=== PATIENT | female | born 1980 | race Caucasian/White ===

== ENCOUNTER 2022-01-27 17:19 | Emergency (ER) | payer OTHER, SELFPAY ==
--- NOTE | ~2022-01-27 | CT_ITS ---
EXAMINATION: CT ABDOMEN AND PELVIS WITH CONTRAST CLINICAL INFORMATION: Obstructive jaundice COMPARISON: Ultrasound abdomen 04/01/2016 CT abdomen pelvis 06/13/2015 TECHNIQUE: Multidetector volumetric images were obtained from the superior aspect of the liver through the pubic symphysis following administration 85 mL of Omnipaque 350 intravenous contrast. Sagittal and coronal reformatted images were obtained on the technologist's workstation. Oral contrast: No This CT examination was performed using dose optimization techniques as appropriate, variously including the following: *Automated exposure control *Adjustment of mA and/or kV according to patient size (this includes techniques or standardized protocols for targeted exams where dose is matched to indication/reason for exam; i.e. extremities or head) *Use of iterative reconstruction technique DLP: 407 mGy-cm FINDINGS: LUNG BASES: The visualized lung bases are unremarkable. LIVER, GALLBLADDER, AND BILIARY TREE: The liver is normal in size, shape, and attenuation. No focal hepatic lesion. Some mild periportal edema is present. There may be some minimal intrahepatic biliary ductal dilatation seen. Findings are unchanged when compared to the 06/13/2015 CT scan. A TIPS is present which is widely patent.. The gallbladder contains 2 stones, the largest 2 cm, but is otherwise unremarkable with no evidence of gallbladder wall thickening, or obvious pericholecystic inflammatory changes. PANCREAS: Unremarkable. SPLEEN: There is marked splenomegaly with the spleen measuring 17.7 cm in greatest dimension. ADRENAL GLANDS: Unremarkable. KIDNEYS AND URETERS: The kidneys are normal in size, shape, and attenuation. No hydronephrosis, hydroureter, or calculi seen. No perinephric stranding. BLADDER: Unremarkable. GASTROINTESTINAL TRACT: The small and large bowel are unremarkable. The appendix is none seen with certainty but there is no evidence of appendicitis. ABDOMINAL WALL: No significant hernia is appreciated. LYMPH NODES: No retroperitoneal lymphadenopathy. VASCULAR: Intrahepatic portal veins are small caliber. The extrahepatic portal vein is large as is the splenic vein. Varices are seen in the gastrohepatic ligament as well as at the GE junction. A vascular occlusion device is seen in the region of the gastric varices in the gastrohepatic ligament. PELVIC VISCERA: An anteverted uterus is present. An abnormal adnexal mass or free intraperitoneal fluid is not seen. OSSEOUS STRUCTURES: Unremarkable. CT/CT abdomen pelvis w con IMPRESSION: 1. There is minimal intrahepatic ductal dilatation. 2. Patent TIPS with marked splenomegaly and varices are present above. No ascites. 3. Other incidental findings as described above including cholelithiasis. Fleischner guidelines were followed.
[2022-01-27 18:07] LABS: MANUAL DIFF FLAG NO
[2022-01-27 18:11] LABS: Basophils Percent Auto 0.4 % (0-2); Eosinophils Absolute Auto 0.1 X10*3/uL (0.0-0.4); Eosinophils Percent Auto 2.1 % (0-4); Hematocrit 35.9 % (37.0-47.0); Hemoglobin 11.9 g/dl (12.0-16.0); Imm Gran Abs Auto 0.02 X10*3/uL (0.00-0.03); Imm Gran Pct Auto 0.4 % (0.0-0.4); Lymphocytes Absolute Auto 0.9 X10*3/uL (1.2-4.9); Mean Corpuscular HGB Conc 33.1 g/dl (31.0-35.0); Mean Corpuscular Hemoglobin 29.7 pg (27.0-33.0); Mean Corpuscular Volume 89.5 fL (80.0-98.0); Mean Platelet Volume 12.4 fL (9.4-12.3); Monocytes Absolute Auto 0.4 X10*3/uL (0.1-1.2); Monocytes Percent Auto 6.4 % (2-11); Neutrophils Absolute Auto 4.2 x10*3/uL (2.0-8.3); Neutrophils Percent Auto 74.7 % (45-73); Platelet Count 146 X10*3/uL (160-400); Red Blood Count 4.01 X10*6/uL (4.20-5.50); Red Cell Distribution Width 13.1 % (11.0-16.0); White Blood Count 5.6 X10*3/uL (4.8-10.8)
[2022-01-27 18:36] LABS: Alanine Aminotransferase 82 U/L (0-31); Albumin Level 3.2 g/dL (3.5-5.0); Alkaline Phosphatase 1133 U/L (39-117); Anion Gap 10 (12-20); Aspartate Amino Transferase 102 U/L (5-31); Bilirubin Total 6.3 mg/dL (0.0-1.0); Blood Urea Nitrogen 13 mg/dL (9-16); Calcium 8.7 mg/dL (8.4-10.2); Carbon Dioxide 25 mmol/L (22-29); Chloride 106 mmol/L (96-108); Estimated Glomerular Filt Rate > 60; Glucose Random 268 mg/dL (60-115); Potassium 3.9 mmol/L (3.3-5.1); Sodium 137 mmol/L (135-145); Total Protein 6.6 g/dL (6.5-8.0)
[2022-01-27 19:06] VITALS: BP 122/61; PULSE 78; RESP 18; TEMP 36.9; O2SAT 100; BMI 24.2
[2022-01-27 19:37] LABS: Appearance Urine HAZY; Color Urine YELLOW; Glucose Urine UA 500 MG/DL (NEG); Leukocyte Esterase Urine TRACE (NEG); Nitrite Urine NEG (NEG); PH 5.5 (5.0-8.0); Specific Gravity - Urine >= 1.030 (1.005-1.025); UACC Culture Trigger YES; Urine Blood NEG (NEG); Urine Ketones NEG (NEG); Urine Protein NEG (NEG-TRACE)
[2022-01-27 19:40] LABS: UPreg QC Valid YES; Urine Pregnancy NEGATIVE (NEGATIVE)
[2022-01-27 19:42] LABS: RBC Urine 0 /HPF (0)
[2022-01-27 19:43] LABS: Bacteria Urine 1+ /LPF; Squamous Epithelial Cell Urine 1+ /LPF
--- NOTE | 2022-01-27 21:25 | ED.ABDPAIN ---
HPI - Abdominal Pain General Chief Complaint: Abdominal Pain Stated Complaint: abd pain Time Seen by Provider: 01/27/22 21:24 Source: patient and family Mode of arrival: ambulatory Limitations: language barrier History of Present Illness HPI narrative: Patient is 41 years old with history of chronic liver disease of unknown etiology hyperbilirubinemia seizure disorder, CVA, portal hypertension GI bleed secondary to varices and history of seizures followed by hepatology Department [facility] comes here for diffuse abdominal pain and distention for last 10 days patient supposed min lactulose not taking it history of ascites in the past long time ago. No confusion no bleeding no melena no fever or chills Related Data Previous Rx's Medication Instructions Recorded lactulose 20 gram/30 mL oral 20 g (30 mL) PO BID #1200 ml 01/28/22 solution Allergies Allergy/AdvReac Type Severity Reaction Status Date / Time latex [Latex] Allergy Mild RASH Unverified 06/26/20 17:37 Review of Systems Review of Systems Yes all other systems are reviewed and are negative PMFSH Past Medical History Medical History (Updated 01/28/22 @ 00:51 by Toni Jain MD) Chronic nonalcoholic liver disease Depression Esophageal varices with bleeding Left sided cerebral hemisphere cerebrovascular accident (CVA) Memory loss Portal hypertension Seizure disorder Social History Social History Advance Directives: No Patient : No Physical Exam ED Vital Signs: Vital Signs - 24 hr 01/27/22 19:06 01/27/22 22:17 Temperature 98.4 F Pulse Rate 78 83 Respiratory Rate 18 18 Blood Pressure 122/61 133/66 Pulse Oximetry 100 100 BMI result Body Mass Index 24.2 Appearance: Alert. Oriented X3. No acute distress. Eyes: Icteric+ ENT: Pharynx normal. Oral Mucosa moist Neck: Normal inspection. Neck supple. CVS: Normal heart rate and rhythm. Pulses normal. Respiratory: No respiratory distress. Equal air entry bilateral, no wheezing/rales/rhonchi Abdomen: Soft slight distended with free fluid diffuse mild tenderness no rebound tenderness or guarding Skin: Skin warm and dry. Normal skin color. Normal skin turgor. Extremities: No lower extremity edema. No calf tenderness Neuro: Oriented X 3. No motor deficit. No hepatic flaps MDM - Abdominal Pain MDM Narrative Medical decision making narrative: Patient with chronic lung disease noncompliant to medications not taking her lactulose scan with diffuse abdominal pain CT scan abdomen negative tips in place a slightly elevated ammonia but she not encephalopathy patient was given lactulose in the ER and prescription was given advised to take medication as prescribed and follow with [facility] Medical Records Attestation: I reviewed the patient's medical records. Lab Data Attestation: I reviewed the patient's lab results. Result diagrams: 01/27/22 18:04 01/27/22 18:04 Labs: Lab Results 01/27/22 01/27/22 01/27/22 Range/Units 18:04 18:04 19:15 WBC 5.6 (4.8-10.8) X10*3/uL RBC 4.01 L (4.20-5.50) X10*6/uL Hgb 11.9 L (12.0-16.0) g/dl Hct 35.9 L (37.0-47.0) % MCV 89.5 (80.0-98.0) fL MCH 29.7 (27.0-33.0) pg MCHC 33.1 (31.0-35.0) g/dl RDW 13.1 (11.0-16.0) % Plt Count 146 L (160-400) X10*3/uL MPV 12.4 H (9.4-12.3) fL Immature Gran % (Auto) 0.4 (0.0-0.4) % Neut % (Auto) 74.7 H (45-73) % Lymph % (Auto) 16.0 L (20-40) % [place] % (Auto) 6.4 (2-11) % Eos % (Auto) 2.1 (0-4) % Baso % (Auto) 0.4 (0-2) % Lymph # (Auto) 0.9 L (1.2-4.9) X10*3/uL [place] # (Auto) 0.4 (0.1-1.2) X10*3/uL Eos # (Auto) 0.1 (0.0-0.4) X10*3/uL Baso # (Auto) 0.0 (0.0-0.2) X10*3/uL Abs Immat Gran (auto) 0.02 (0.00-0.03) X10*3/uL Absolute Neuts (auto) 4.2 (2.0-8.3) x10*3/uL Absolute Nucleated RBC 0.000 (0.0-0.012) X10*3/uL Nucleated RBC % (auto) 0.0 (0.0-0.2) /100WBC PT (9.9-13.0) SEC INR (0.9-1.1) APTT (24.1-38.0) SEC Sodium 137 (135-145) mmol/L Potassium 3.9 (3.3-5.1) mmol/L Chloride 106 (96-108) mmol/L Carbon Dioxide 25 (22-29) mmol/L Anion Gap 10 L (12-20) BUN 13 (9-16) mg/dL Creatinine 0.69 (0.5-1.4) mg/dL Estim Creat Clear Calc TNP Estimated GFR > 60 Random Glucose 268 H (60-115) mg/dL Calcium 8.7 (8.4-10.2) mg/dL Total Bilirubin 6.3 H (0.0-1.0) mg/dL AST 102 H (5-31) U/L ALT 82 H (0-31) U/L Alkaline Phosphatase 1133 H (39-117) U/L Ammonia (13-55) umol/L Total Protein 6.6 (6.5-8.0) g/dL Albumin 3.2 L (3.5-5.0) g/dL Lipase 41 (8-78) U/L Urine Color YELLOW Urine Appearance HAZY Urine pH 5.5 (5.0-8.0) Ur Specific [place] >= 1.030 H (1.005-1.025) Urine Protein NEG (NEG-TRACE) MG/DL Urine Glucose (UA) 500 H (NEG) MG/DL Urine Ketones NEG (NEG) MG/DL Urine Blood NEG (NEG) Urine Nitrite NEG (NEG) Ur Leukocyte Esterase TRACE H (NEG) Urine RBC 0 (0) /HPF Urine WBC 10-14 H (0-4) /HPF Ur Squamous Epith Cells 1+ /LPF Urine Bacteria 1+ /LPF Urine Test (NEGATIVE) 01/27/22 01/27/22 01/27/22 Range/Units 19:15 21:45 21:45 WBC (4.8-10.8) X10*3/uL RBC (4.20-5.50) X10*6/uL Hgb (12.0-16.0) g/dl Hct (37.0-47.0) % MCV (80.0-98.0) fL MCH (27.0-33.0) pg MCHC (31.0-35.0) g/dl RDW (11.0-16.0) % Plt Count (160-400) X10*3/uL MPV (9.4-12.3) fL Immature Gran % (Auto) (0.0-0.4) % Neut % (Auto) (45-73) % Lymph % (Auto) (20-40) % Whitfield % (Auto) (2-11) % Eos % (Auto) (0-4) % Baso % (Auto) (0-2) % Lymph # (Auto) (1.2-4.9) X10*3/uL [place] # (Auto) (0.1-1.2) X10*3/uL Eos # (Auto) (0.0-0.4) X10*3/uL Baso # (Auto) (0.0-0.2) X10*3/uL Abs Immat Gran (auto) (0.00-0.03) X10*3/uL Absolute Neuts (auto) (2.0-8.3) x10*3/uL Absolute Nucleated RBC (0.0-0.012) X10*3/uL Nucleated RBC % (auto) (0.0-0.2) /100WBC PT 12.0 (9.9-13.0) SEC INR 1.1 (0.9-1.1) APTT 39.4 H (24.1-38.0) SEC Sodium (135-145) mmol/L Potassium (3.3-5.1) mmol/L Chloride (96-108) mmol/L Carbon Dioxide (22-29) mmol/L Anion Gap (12-20) BUN (9-16) mg/dL Creatinine (0.5-1.4) mg/dL Estim Creat Clear Calc Estimated GFR Random Glucose (60-115) mg/dL Calcium (8.4-10.2) mg/dL Total Bilirubin (0.0-1.0) mg/dL AST (5-31) U/L ALT (0-31) U/L Alkaline Phosphatase (39-117) U/L Ammonia 64 H (13-55) umol/L Total Protein (6.5-8.0) g/dL Albumin (3.5-5.0) g/dL Lipase (8-78) U/L Urine Color Urine Appearance Urine pH (5.0-8.0) Ur Specific [place] (1.005-1.025) Urine Protein (NEG-TRACE) MG/DL Urine Glucose (UA) (NEG) MG/DL Urine Ketones (NEG) MG/DL Urine Blood (NEG) Urine Nitrite (NEG) Ur Leukocyte Esterase (NEG) Urine RBC (0) /HPF Urine WBC (0-4) /HPF Ur Squamous Epith Cells /LPF Urine Bacteria /LPF Urine Test NEGATIVE (NEGATIVE) Discharge Plan Discharge Clinical Impression: Chronic nonalcoholic liver disease Patient Disposition: Home, Self-Care Instructions: Cirrhosis (ED) Additional Instructions: continue your meds and take lactulose daily as prescribed follow up with your carton counter feeder as scheduled contin?e con debby medicamentos y tome lactulosa diariamente seg?n lo prescrito seguimiento con khan gastroenter?logo seg?n lo programado Prescriptions: New lactulose 20 gram/30 mL solution 20 g PO BID Qty: 1200 0RF Interventions: ED Discharge Assessment Last Done: 01/28/22 00:57 Discharge Date/Time: 01/28/22 01:09 Print Language: Montserratian
[2022-01-27 21:48] LABS: Lipase 41 U/L (8-78)
[2022-01-27 21:59] LABS: INTERNATIONAL NORM RATIO 1.1 (0.9-1.1)
[2022-01-27 22:02] LABS: Partial Thromboplastin Time 39.4 SEC (24.1-38.0)
[2022-01-27] MEDS: iohexoL 350 MG/ML 100 ML INFUS..BTL 85 ML IV (22:07)
[2022-01-27 22:17] VITALS: BP 133/66; PULSE 83; RESP 18; O2SAT 100
[2022-01-27 23:39] LABS: Ammonia 64 umol/L (13-55)
[2022-01-28] MEDS: Lactulose 20 GM/30 ML SOLUTION PO (00:34)
== END 2022-01-28 01:09 | disposition home or self-care (01) ==
PROVIDERS: Emergency Provider Internal Medicine; PCP Family Medicine
DX: K76.9 Liver disease, unspecified (principal); K76.6 Portal hypertension; I85.10 Secondary esophageal varices without bleeding; G40.909 Epilepsy, unspecified, not intractable, without status epilepticus; Z86.73 Personal history of transient ischemic attack (TIA), and cerebral infarction without residual deficits; Z91.14 Patient's other noncompliance with medication regimen
CPT/HCPCS: 36415; 74177; 80053; 81001; 81025; 82140; 83690; 85025; 85610; 85730; 87086; 99285; Q9967

== ENCOUNTER 2023-04-21 09:27 | Outpatient (REF) | payer OTHER, SELFPAY ==
--- NOTE | ~2023-04-21 | XR_ITS ---
EXAMINATION: XR TIBIA AND FIBULA, RIGHT CLINICAL INFORMATION: [place] anterior pain for 3 days. COMPARISON: None available. TECHNIQUE: AP and lateral views of the right tibia and fibula were obtained. FINDINGS: There is no evidence of acute fracture or dislocation of the right tibia or fibula. No significant soft tissue swelling is appreciated. There appears to be mild edema within the soft tissues anterior to the proximal to mid tibia but with fat line being maintained. No periosteal new bone formation is seen. XR/XR tibia fibula RT 2V IMPRESSION: No significant right tibia or fibula abnormality appreciated.
== END 2023-04-21 09:28 | disposition home or self-care (01) ==
LOC: HO.HHCX 09:27
PROVIDERS: Visit Provider Family Medicine
DX: M79.604 Pain in right leg (principal)
CPT/HCPCS: 73590

== ENCOUNTER 2023-04-21 09:44 | Outpatient (REF) | payer OTHER, SELFPAY ==
[2023-04-21 11:45] LABS: MANUAL DIFF FLAG NO
[2023-04-21 11:54] LABS: Basophils Percent Auto 0.7 % (0-2); Eosinophils Absolute Auto 0.1 X10*3/uL (0.0-0.4); Eosinophils Percent Auto 3.3 % (0-4); Hematocrit 31.1 % (37.0-47.0); Imm Gran Abs Auto 0.01 X10*3/uL (0.00-0.03); Imm Gran Pct Auto 0.2 % (0.0-0.4); Lymphocytes Absolute Auto 0.7 X10*3/uL (1.2-4.9); Lymphocytes Percent Auto 17.4 % (20-40); Mean Corpuscular HGB Conc 28.9 g/dl (31.0-35.0); Mean Corpuscular Hemoglobin 21.2 pg (27.0-33.0); Mean Corpuscular Volume 73.3 fL (80.0-98.0); Monocytes Absolute Auto 0.3 X10*3/uL (0.1-1.2); Monocytes Percent Auto 7.6 % (2-11); Neutrophils Percent Auto 70.8 % (45-73); Platelet Count 119 X10*3/uL (160-400); Red Blood Count 4.24 X10*6/uL (4.20-5.50); Red Cell Distribution Width 18.5 % (11.0-16.0); White Blood Count 4.2 X10*3/uL (4.8-10.8)
[2023-04-21 12:31] LABS: Alanine Aminotransferase 66 U/L (0-31); Albumin Level 3.1 g/dL (3.5-5.0); Alkaline Phosphatase 856 U/L (39-117); Anion Gap 12 (12-20); Aspartate Amino Transferase 62 U/L (5-31); Bilirubin Total 4.3 mg/dL (0.0-1.0); Blood Urea Nitrogen 5 mg/dL (9-16); Carbon Dioxide 17 mmol/L (22-29); Chloride 108 mmol/L (96-108); Estimated Glomerular Filt Rate > 60; Glucose Random 545 mg/dL (60-115); Potassium 3.6 mmol/L (3.3-5.1); Sodium 133 mmol/L (135-145); Total Protein 6.4 g/dL (6.5-8.0)
[2023-04-26 20:59] LABS: Aldolase 5.7 U/L (<=8.1)
== END 2023-04-21 09:45 | disposition home or self-care (01) ==
LOC: HO.HHCL 09:44
PROVIDERS: Visit Provider Family Medicine
DX: M79.604 Pain in right leg (principal)
CPT/HCPCS: 36415; 80053; 82085; 82550; 85025

== ENCOUNTER 2023-04-21 19:40 | Outpatient (REF) | payer OTHER, SELFPAY ==
[2023-04-21 20:36] LABS: Influenza A PCR NEGATIVE (Negative); Influenza B PCR NEGATIVE (Negative); Resp Syncy Virus RNA Qual PCR NEGATIVE (Negative); SARS COV2 PCR INHOUSE NEGATIVE (Negative)
== END 2023-04-21 19:41 | disposition home or self-care (01) ==
LOC: HO.HHCLNP 19:40
PROVIDERS: Visit Provider Family Medicine
DX: Z20.822 Contact with and (suspected) exposure to COVID-19 (principal); R05.9 Cough, unspecified
CPT/HCPCS: 0241U

== ENCOUNTER 2023-07-28 10:43 | Outpatient (REF) | payer OTHER, SELFPAY ==
[2023-07-28 13:13] LABS: MANUAL DIFF FLAG NO
[2023-07-28 13:38] LABS: Basophils Percent Auto 0.4 % (0-2); Eosinophils Absolute Auto 0.1 X10*3/uL (0.0-0.4); Eosinophils Percent Auto 2.4 % (0-4); Hematocrit 40.3 % (37.0-47.0); Hemoglobin 13.9 g/dl (12.0-16.0); Imm Gran Abs Auto 0.01 X10*3/uL (0.00-0.03); Imm Gran Pct Auto 0.2 % (0.0-0.4); Lymphocytes Percent Auto 20.9 % (20-40); Mean Corpuscular HGB Conc 34.5 g/dl (31.0-35.0); Mean Corpuscular Hemoglobin 31.8 pg (27.0-33.0); Mean Corpuscular Volume 92.2 fL (80.0-98.0); Mean Platelet Volume 12.2 fL (9.4-12.3); Monocytes Absolute Auto 0.3 X10*3/uL (0.1-1.2); Monocytes Percent Auto 6.2 % (2-11); Neutrophils Absolute Auto 3.3 x10*3/uL (2.0-8.3); Neutrophils Percent Auto 69.9 % (45-73); Platelet Count 119 X10*3/uL (160-400); Red Blood Count 4.37 X10*6/uL (4.20-5.50); Red Cell Distribution Width 14.2 % (11.0-16.0); White Blood Count 4.7 X10*3/uL (4.8-10.8)
[2023-07-28 14:13] LABS: TSH reflex Free T4 1.88 uIU/mL (0.32-4.0)
[2023-07-28 14:17] LABS: Anion Gap 11 (12-20)
[2023-07-28 14:34] LABS: Alanine Aminotransferase 74 U/L (0-31); Alkaline Phosphatase 912 U/L (39-117); Aspartate Amino Transferase 78 U/L (5-31); Bilirubin Direct 6.2 mg/dL (0.0-0.5); Blood Urea Nitrogen 16 mg/dL (9-16); Calcium 8.9 mg/dL (8.4-10.2); Carbon Dioxide 21 mmol/L (22-29); Chloride 108 mmol/L (96-108); Cholesterol 172 mg/dL (<200); Estimated Glomerular Filt Rate > 60; Glucose Random 296 mg/dL (60-115); HDL Cholesterol 33 mg/dL (>40); LDL Cholesterol Calculated 118 mg/dL (<100); Magnesium 1.8 mg/dL (1.6-2.6); Potassium 3.9 mmol/L (3.3-5.1); Sodium 136 mmol/L (135-145); Total Protein 6.5 g/dL (6.5-8.0); Triglycerides 105 mg/dL (<150)
[2023-07-28 15:04] LABS: Creatinine Urine 78.75 mg/dL; Microalbumin Urine < 5.0 mg/L
[2023-07-29 08:20] LABS: HIV AB/AG Nonreactive (Nonreactive); HIV Num 1 0.06 S/CO (0.00-0.99); ~HepC Num1 0.09 S/CO (0.00-0.79); ~Hepatitis C Antibody Nonreactive (Nonreactive)
[2023-08-02 11:33] LABS: VITAMIN D (1,25 OH) D3 45 pg/mL; Vit D (1,25-Dihydroxy) Total 45 pg/mL (18-72); Vitamin D (1,25 OH) D2 <8 pg/mL
== END 2023-07-28 10:44 | disposition home or self-care (01) ==
LOC: HO.HHCL 10:43
PROVIDERS: Visit Provider Family Medicine
DX: E11.65 Type 2 diabetes mellitus with hyperglycemia (principal); Z79.4 Long term (current) use of insulin; Z11.3 Encounter for screening for infections with a predominantly sexual mode of transmission; R53.83 Other fatigue
CPT/HCPCS: 36415; 80048; 80061; 80076; 82043; 82570; 82652; 83735; 84443; 85025; 86803; 87389

== ENCOUNTER 2023-09-06 09:40 | Outpatient (REF) | payer OTHER, SELFPAY ==
--- NOTE | ~2023-09-06 | MM_ITS ---
EXAMINATION: MM SCREENING DIGITAL BREAST TOMOSYNTHESIS, BILATERAL CLINICAL INFORMATION: Screening. Asymptomatic. COMPARISON: Mammography: There are no prior mammograms for comparison. This is a baseline study. TECHNIQUE: Digital breast tomosynthesis is performed in both the craniocaudal and mediolateral oblique views along with computer-aided detection (CAD). Synthesized 2D images are generated from the tomosynthesis. FINDINGS: There are scattered areas of fibroglandular density (ACR BI-RADS breast composition Category b). There are no significant masses, abnormal calcifications, or other abnormalities. MM/MM tomosynthesis screening BI IMPRESSION: No mammographic evidence of malignancy. ASSESSMENT: BI-RADS BI-RADS 1 - Negative RECOMMENDATION: Routine annual mammography screening. 1 year F/U This examination should not preclude the clinical evaluation of a suspicious palpable abnormality. This patient's information was entered into a reminder system with a target due date for their next mammogram.
== END 2023-09-06 09:41 | disposition home or self-care (01) ==
LOC: HO.MAMMO 09:40
PROVIDERS: Visit Provider Family Medicine
DX: Z12.31 Encounter for screening mammogram for malignant neoplasm of breast (principal)
CPT/HCPCS: 77063; 77067

== ENCOUNTER → 2023-09-06 09:45 | Outpatient (BNV) | payer OTHER, SELFPAY | PROVIDERS: Visit Provider Radiology Diagnostic Radiology | DX: Z12.31 Encounter for screening mammogram for malignant neoplasm of breast (principal) | CPT/HCPCS: 77063; 77067 ==

== ENCOUNTER → 2023-10-24 13:51 | Outpatient (REF) | payer OTHER, SELFPAY ==
--- NOTE | 2023-10-24 13:55 | CA_ITS ---
Transthoracic Echocardiogram Patient (Last, First, Middle): Aubrie Brewer, Gender: Female Date of : 1980 Age: 43 Procedure Date: 10/24/2023 Procedure Type: Transthoracic Echocardiogram Location: OP Height: 127. cm Weight: 48.08 kg BSA: 1.25 m2 Heart Rate: 79 bpm BP: 110 / 80 mmHg Estate Attorney: GRABIEL Referring MD: Yasmin Ho MD Symptoms: PRE TRANSPLANT EVAL FOR LIVER TRANSPLANT Study Quality: Adequate ECG Rhythm: Sinus Conclusions: - The left ventricular systolic function is normal. The calculated ejection fraction is 65% by biplane method. - No obvious valvular pathology seen on this study. - There is no evidence of pulmonary hypertension. Findings Left Ventricle Normal left ventricular cavity size. There is normal left ventricular wall thickness. The left ventricular systolic function is normal. The calculated ejection fraction is 65% by biplane method. There is no evidence of regional wall motion abnormalities. Diastolic function is normal for age. LV peak GLS -24.5%. Right Ventricle Normal right ventricular cavity size and systolic function. Atria The left atrium is mildly dilated. The right atrium is normal in size. Aortic Valve There is a normal trileaflet aortic valve. There is no aortic valve stenosis. There is no aortic valve regurgitation. Mitral Valve The mitral valve appears normal. There is no mitral valve regurgitation. There is no mitral valve stenosis. Pulmonic Valve The pulmonic valve is likely normal. Tricuspid Valve Normal tricuspid valve structure. There is trace tricuspid valve regurgitation. There is no evidence of pulmonary hypertension. Great Vessels The asc aorta is normal in size. Venous The inferior vena cava is normal in size and collapses greater than 50% with inspiration. Pericardium/Pleural There is no evidence of pericardial effusion. Prior Study Comparison No prior study available for comparison. Recommendations, Care & Conclusions No obvious valvular pathology seen on this study. Measurements 2D Linear Measurements IVSd: 0.89 0.6-0.9/0.6-1.0 cm LVIDd: 4.13 3.9-5.3/4.2-5.9 cm LVIDd Index: 3.30 2.4-3.2/2.2-3.1 cm/m2 LVIDs: 2.61 2.0-3.6 cm LVPWd: 0.71 0.7-1.1 cm LA Diam: 3.00 2.7-3.8/3.0-4.0 cm LAIDs Index: 2.40 1.5-2.3 cm/m2 LV Mass: 122.70 67-162/88-224 g LV Mass Index: 98.16 43-95/49-115 g/m2 LVOT Diam: 1.80 3.0+(-)1.3 cm 2D Systolic Function EF 4C: 61.40 >55% EF 2C: 68.50 >55% EF BiP: 64.90 >55% Mitral Valve MV Pk E: 0.99 MV PK A: 0.82 MV Decel Time: 196.00 E/A: 1.20 E'Lateral: 12.80 E'Medial: 10.10 E/E' Med: 9.80 E/E' Lat: 7.80 PHT: 58.00 MVA PHT: 3.79 Decel [place]: 5.06 Aortic Valve AoV Pk Rosendo: 1.60 AoV Mn Rosendo: 1.10 AoV VTI: 0.33 AoV Pk Grad: 10.00 Aov Mn Grad: 6.00 MADDISON Cont.VTI: 2.16 LVOT LVOT Pk Rosendo: 1.40 LVOT Mn Rosendo: 0.97 LVOT VTI: 0.28 LVOT Pk Grad: 8.00 LVOT Mn Grad: 4.00 LVOT Diam: 1.80 LVOT Area: 2.54 Diastolic Function MV Pk E: 0.99 MV Pk A: 0.82 E/A: 1.20 E'Medial: 10.10 E/E' Med: 9.80 E' Laterial: 12.80 E/E' Lat: 7.80 Right Ventricle TAPSE (mm): 26.10 TVS' Rosendo: 12.20 Tricuspid Valve TR Pk Rosendo: 1.93 TR Pk Grad: 15.00 RA Press: 3.00 RVSP: 18.00 Great Vessels Aorta Sinus of Valsalva: 2.80 2.0-3.5 cm Ao Asc: 3.00 2.1-3.4 cm Pulmonary Valve PV Pk Rosendo: 1.15 Peak PV Grad: 5.00 Updated in Other Vendor System with Status of Final Jarrell Real MD electronically signed on 10/25/2023 11:29:09 AM with status of Final
== END ==
LOC: HO.CARD 13:51
PROVIDERS: Visit Provider Internal Medicine
DX: Z01.818 Encounter for other preprocedural examination (principal)
CPT/HCPCS: 93306; 93356

== ENCOUNTER → 2023-10-24 13:55 | Outpatient (BNV) | payer OTHER, SELFPAY | PROVIDERS: Visit Provider Internal Medicine | DX: Z01.818 Encounter for other preprocedural examination (principal); K76.9 Liver disease, unspecified | CPT/HCPCS: 93306 ==

== ENCOUNTER 2023-11-18 10:47 | Outpatient (REF) | payer OTHER, SELFPAY ==
[2023-11-18 11:24] LABS: MANUAL DIFF FLAG NO
[2023-11-18 12:19] LABS: Basophils Percent Auto 0.5 % (0-2); Eosinophils Absolute Auto 0.1 X10*3/uL (0.0-0.4); Eosinophils Percent Auto 1.8 % (0-4); Hematocrit 38.1 % (37.0-47.0); Hemoglobin 13.1 g/dl (12.0-16.0); Imm Gran Abs Auto 0.01 X10*3/uL (0.00-0.03); Imm Gran Pct Auto 0.3 % (0.0-0.4); Lymphocytes Absolute Auto 0.7 X10*3/uL (1.2-4.9); Lymphocytes Percent Auto 17.3 % (20-40); Mean Corpuscular HGB Conc 34.4 g/dl (31.0-35.0); Mean Corpuscular Hemoglobin 31.4 pg (27.0-33.0); Mean Corpuscular Volume 91.4 fL (80.0-98.0); Mean Platelet Volume 11.7 fL (9.4-12.3); Monocytes Absolute Auto 0.2 X10*3/uL (0.1-1.2); Monocytes Percent Auto 5.1 % (2-11); Platelet Count 146 X10*3/uL (160-400); Red Blood Count 4.17 X10*6/uL (4.20-5.50); Red Cell Distribution Width 13.8 % (11.0-16.0); White Blood Count 3.9 X10*3/uL (4.8-10.8)
[2023-11-18 12:24] LABS: Prothrombin Time 12.6 SEC (11.1-13.3)
[2023-11-18 12:44] LABS: Alanine Aminotransferase 86 U/L (0-31); Albumin Level 3.2 g/dL (3.5-5.0); Alkaline Phosphatase 842 U/L (39-117); Anion Gap 14 (12-20); Aspartate Amino Transferase 94 U/L (5-31); Bilirubin Total 9.2 mg/dL (0.0-1.0); Blood Urea Nitrogen 20 mg/dL (9-16); Calcium 9.6 mg/dL (8.4-10.2); Carbon Dioxide 22 mmol/L (22-29); Chloride 110 mmol/L (96-108); Estimated Glomerular Filt Rate > 60; Glucose Random 171 mg/dL (60-115); Potassium 3.5 mmol/L (3.3-5.1); Sodium 142 mmol/L (135-145); Total Protein 6.9 g/dL (6.5-8.0)
[2023-11-21 13:39] LABS: Alpha Fetoprotein 4.2 ng/mL
== END 2023-11-18 10:48 | disposition home or self-care (01) ==
LOC: HO.LAB 10:47
PROVIDERS: PCP Family Medicine; Visit Provider Internal Medicine
DX: Z01.818 Encounter for other preprocedural examination (principal); K76.9 Liver disease, unspecified
CPT/HCPCS: 36415; 80053; 82105; 85025; 85610

== ENCOUNTER 2023-12-06 09:52 | Outpatient (REF) | payer OTHER, SELFPAY ==
[2023-12-06 11:53] LABS: Alanine Aminotransferase 94 U/L (0-31); Albumin Level 3.3 g/dL (3.5-5.0); Alkaline Phosphatase 956 U/L (39-117); Anion Gap 14 (12-20); Aspartate Amino Transferase 104 U/L (5-31); Bilirubin Total 7.8 mg/dL (0.0-1.0); Blood Urea Nitrogen 17 mg/dL (9-16); Calcium 9.5 mg/dL (8.4-10.2); Carbon Dioxide 22 mmol/L (22-29); Chloride 112 mmol/L (96-108); Estimated Glomerular Filt Rate > 60; Glucose Random 91 mg/dL (60-115); Potassium 3.7 mmol/L (3.3-5.1); Sodium 144 mmol/L (135-145); Total Protein 6.9 g/dL (6.5-8.0)
== END 2023-12-06 09:53 | disposition home or self-care (01) ==
LOC: HO.LAB 09:52
PROVIDERS: PCP Family Medicine; Visit Provider Internal Medicine
DX: Z01.812 Encounter for preprocedural laboratory examination (principal); K76.9 Liver disease, unspecified
CPT/HCPCS: 36415; 80053

== ENCOUNTER 2023-12-30 08:35 | Outpatient (REF) | payer OTHER, SELFPAY ==
[2023-12-30 08:46] LABS: MANUAL DIFF FLAG NO
[2023-12-30 09:37] LABS: Basophils Percent Auto 0.6 % (0-2); Eosinophils Absolute Auto 0.2 X10*3/uL (0.0-0.4); Eosinophils Percent Auto 3.2 % (0-4); Hematocrit 42.7 % (37.0-47.0); Hemoglobin 14.5 g/dl (12.0-16.0); Imm Gran Abs Auto 0.02 X10*3/uL (0.00-0.03); Imm Gran Pct Auto 0.4 % (0.0-0.4); Lymphocytes Absolute Auto 0.8 X10*3/uL (1.2-4.9); Lymphocytes Percent Auto 16.8 % (20-40); Mean Corpuscular Hemoglobin 31.6 pg (27.0-33.0); Mean Platelet Volume 11.3 fL (9.4-12.3); Monocytes Absolute Auto 0.3 X10*3/uL (0.1-1.2); Monocytes Percent Auto 5.3 % (2-11); Neutrophils Absolute Auto 3.5 x10*3/uL (2.0-8.3); Neutrophils Percent Auto 73.7 % (45-73); Platelet Count 151 X10*3/uL (160-400); Red Blood Count 4.59 X10*6/uL (4.20-5.50); Red Cell Distribution Width 14.7 % (11.0-16.0); White Blood Count 4.7 X10*3/uL (4.8-10.8)
[2023-12-30 10:06] LABS: Alanine Aminotransferase 113 U/L (0-31); Albumin Level 3.4 g/dL (3.5-5.0); Alkaline Phosphatase 974 U/L (39-117); Anion Gap 12 (12-20); Aspartate Amino Transferase 117 U/L (5-31); Bilirubin Total 7.4 mg/dL (0.0-1.0); Blood Urea Nitrogen 13 mg/dL (9-16); Calcium 9.6 mg/dL (8.4-10.2); Carbon Dioxide 22 mmol/L (22-29); Chloride 110 mmol/L (96-108); Estimated Glomerular Filt Rate > 60; Glucose Random 116 mg/dL (60-115); Potassium 3.4 mmol/L (3.3-5.1); Sodium 141 mmol/L (135-145)
== END 2023-12-30 08:36 | disposition home or self-care (01) ==
LOC: HO.LAB 08:35
PROVIDERS: PCP Family Medicine; Visit Provider Internal Medicine
DX: K74.69 Other cirrhosis of liver (principal)
CPT/HCPCS: 36415; 80053; 85025; 85610

== ENCOUNTER 2024-02-10 08:07 | Outpatient (REF) | payer OTHER, SELFPAY ==
--- NOTE | ~2024-02-10 | MR_ITS ---
EXAMINATION: MR ABDOMEN WITHOUT AND WITH CONTRAST CLINICAL INFORMATION: Cryptogenic cirrhosis, LR 3 liver lesion COMPARISON: CT abdomen and pelvis 01/27/2022 TECHNIQUE: MRI of the abdomen before and after the IV administration of 5 mL of Gadavist was obtained using routine sequences. FINDINGS: LUNG BASES: The visualized lung bases are unremarkable. KIDNEYS AND URETERS: Unremarkable. GALLBLADDER: Cholelithiasis without evidence of acute cholecystitis. LIVER AND BILIARY TREE: Subtle nodularity of the hepatic contour compatible with cirrhosis. A 1.3 cm arterial hyperenhancing observation in hepatic segment 8, 100:21 without washout or enhancing pseudocapsule. Mild intrahepatic segmental biliary duct dilatation or hepatic segment 7 unchanged from 2021. Mild periportal edema similar to 202. PANCREAS: Unremarkable SPLEEN: Spleen is enlarged measuring 16.7 cm in span, previously 16.6 cm. ADRENAL GLANDS: Unremarkable GASTROINTESTINAL TRACT: Unremarkable. LYMPH NODES: Pericardiophrenic lymphadenopathy does not appear significantly changed from 2021, possibly reactive for example a 1.3 cm short axis pericardiophrenic node, 101:15, previously measured 1.3 cm. VASCULAR: TIPS stent in place. Periesophageal varices. TIPS catheter is patent. Dilated splenorenal renal collateral vessels. Susceptibility artifact is noted in the central abdomen. ABDOMINAL WALL: Unremarkable. OSSEOUS STRUCTURES: Unremarkable. OTHER: Trace ascites. MR/MR abdomen wo/w con IMPRESSION: 1. A 1.3 cm arterial hyperenhancing observation in hepatic segment 8 without washout or enhancing pseudocapsule, LI-RADS 3, intermediate probability of malignancy. Recommend 3-6 month follow-up MR liver protocol. 2. Subtle nodularity of the hepatic contour compatible with cirrhosis. Sequelae of portal hypertension including splenomegaly, varices, and trace ascites. 3. Cholelithiasis without evidence of acute cholecystitis. 4. Pericardiophrenic lymphadenopathy, which does not appear significantly changed from 202, possibly reactive.
[2024-02-10] MEDS: gadobutroL 7.5 ML VIAL IVPUSH (09:30)
== END 2024-02-10 08:08 | disposition home or self-care (01) ==
LOC: HO.MRI 08:07
PROVIDERS: PCP Family Medicine; Visit Provider Internal Medicine
DX: K74.69 Other cirrhosis of liver (principal)
CPT/HCPCS: 74183; A9585

== ENCOUNTER 2024-03-20 06:22 | Outpatient (REF) | payer OTHER, SELFPAY ==
[2024-03-20 06:33] LABS: MANUAL DIFF FLAG NO
[2024-03-20 07:36] LABS: Basophils Percent Auto 0.7 % (0-2); Eosinophils Absolute Auto 0.2 X10*3/uL (0.0-0.4); Eosinophils Percent Auto 3.8 % (0-4); Hemoglobin 13.1 g/dl (12.0-16.0); Imm Gran Abs Auto 0.02 X10*3/uL (0.00-0.03); Imm Gran Pct Auto 0.5 % (0.0-0.4); Lymphocytes Absolute Auto 0.9 X10*3/uL (1.2-4.9); Lymphocytes Percent Auto 20.3 % (20-40); Mean Corpuscular HGB Conc 34.5 g/dl (31.0-35.0); Mean Corpuscular Hemoglobin 33.2 pg (27.0-33.0); Mean Corpuscular Volume 96.4 fL (80.0-98.0); Mean Platelet Volume 12.1 fL (9.4-12.3); Monocytes Absolute Auto 0.3 X10*3/uL (0.1-1.2); Monocytes Percent Auto 7.1 % (2-11); Neutrophils Absolute Auto 2.9 x10*3/uL (2.0-8.3); Neutrophils Percent Auto 67.6 % (45-73); Platelet Count 139 X10*3/uL (160-400); Red Blood Count 3.94 X10*6/uL (4.20-5.50); Red Cell Distribution Width 13.6 % (11.0-16.0); White Blood Count 4.2 X10*3/uL (4.8-10.8)
[2024-03-20 07:38] LABS: INTERNATIONAL NORM RATIO 1.2 (0.9-1.1)
[2024-03-20 07:45] LABS: Alanine Aminotransferase 92 U/L (0-31); Albumin Level 3.1 g/dL (3.5-5.0); Alkaline Phosphatase 985 U/L (39-117); Anion Gap 13 (12-20); Aspartate Amino Transferase 107 U/L (5-31); Bilirubin Total 8.6 mg/dL (0.0-1.0); Blood Urea Nitrogen 12 mg/dL (9-16); Calcium 8.8 mg/dL (8.4-10.2); Carbon Dioxide 20 mmol/L (22-29); Chloride 111 mmol/L (96-108); Estimated Glomerular Filt Rate > 60; Glucose Random 97 mg/dL (60-115); Potassium 3.1 mmol/L (3.3-5.1); Sodium 141 mmol/L (135-145); Total Protein 6.6 g/dL (6.5-8.0)
== END 2024-03-20 06:23 | disposition home or self-care (01) ==
LOC: HO.LAB 06:22
PROVIDERS: PCP Family Medicine; Visit Provider Internal Medicine
DX: K74.69 Other cirrhosis of liver (principal)
CPT/HCPCS: 36415; 80053; 85025; 85610

== ENCOUNTER 2024-04-17 08:36 | Outpatient (REF) | payer OTHER, SELFPAY ==
[2024-04-17 08:45] LABS: MANUAL DIFF FLAG NO
[2024-04-17 08:53] LABS: Basophils Percent Auto 0.2 % (0-2); Eosinophils Absolute Auto 0.2 X10*3/uL (0.0-0.4); Eosinophils Percent Auto 3.6 % (0-4); Hematocrit 35.6 % (37.0-47.0); Hemoglobin 12.2 g/dl (12.0-16.0); Imm Gran Abs Auto 0.01 X10*3/uL (0.00-0.03); Imm Gran Pct Auto 0.2 % (0.0-0.4); Lymphocytes Absolute Auto 0.7 X10*3/uL (1.2-4.9); Lymphocytes Percent Auto 16.2 % (20-40); Mean Corpuscular HGB Conc 34.3 g/dl (31.0-35.0); Mean Corpuscular Hemoglobin 32.4 pg (27.0-33.0); Mean Corpuscular Volume 94.7 fL (80.0-98.0); Mean Platelet Volume 11.7 fL (9.4-12.3); Monocytes Absolute Auto 0.3 X10*3/uL (0.1-1.2); Monocytes Percent Auto 6.9 % (2-11); Neutrophils Absolute Auto 3.3 x10*3/uL (2.0-8.3); Neutrophils Percent Auto 72.9 % (45-73); Platelet Count 147 X10*3/uL (160-400); Red Blood Count 3.76 X10*6/uL (4.20-5.50); White Blood Count 4.5 X10*3/uL (4.8-10.8)
[2024-04-17 08:56] LABS: INTERNATIONAL NORM RATIO 1.3 (0.9-1.1); Prothrombin Time 15.6 SEC (11.1-13.3)
[2024-04-17 09:48] LABS: Alanine Aminotransferase 98 U/L (0-31); Alkaline Phosphatase 969 U/L (39-117); Anion Gap 11 (12-20); Aspartate Amino Transferase 110 U/L (5-31); Bilirubin Total 8.7 mg/dL (0.0-1.0); Blood Urea Nitrogen 14 mg/dL (9-16); Calcium 8.9 mg/dL (8.4-10.2); Carbon Dioxide 20 mmol/L (22-29); Chloride 115 mmol/L (96-108); Estimated Glomerular Filt Rate > 60; Glucose Random 108 mg/dL (60-115); Potassium 3.1 mmol/L (3.3-5.1); Sodium 143 mmol/L (135-145); Total Protein 6.2 g/dL (6.5-8.0)
== END 2024-04-17 08:37 | disposition home or self-care (01) ==
LOC: HO.LABR 08:36
PROVIDERS: PCP Family Medicine; Visit Provider Internal Medicine
DX: K74.69 Other cirrhosis of liver (principal)
CPT/HCPCS: 36415; 80053; 85025; 85610

== ENCOUNTER 2024-05-09 09:32 | Outpatient (REF) | payer OTHER, SELFPAY ==
[2024-05-09 09:51] LABS: MANUAL DIFF FLAG NO
[2024-05-09 10:53] LABS: Basophils Percent Auto 0.4 % (0-2); Eosinophils Absolute Auto 0.2 X10*3/uL (0.0-0.4); Eosinophils Percent Auto 2.9 % (0-4); Hematocrit 36.8 % (37.0-47.0); Hemoglobin 12.7 g/dl (12.0-16.0); Imm Gran Abs Auto 0.02 X10*3/uL (0.00-0.03); Imm Gran Pct Auto 0.4 % (0.0-0.4); Lymphocytes Absolute Auto 0.8 X10*3/uL (1.2-4.9); Lymphocytes Percent Auto 15.1 % (20-40); Mean Corpuscular HGB Conc 34.5 g/dl (31.0-35.0); Mean Corpuscular Hemoglobin 32.8 pg (27.0-33.0); Mean Corpuscular Volume 95.1 fL (80.0-98.0); Mean Platelet Volume 12.6 fL (9.4-12.3); Monocytes Absolute Auto 0.4 X10*3/uL (0.1-1.2); Monocytes Percent Auto 7.6 % (2-11); Neutrophils Absolute Auto 3.9 x10*3/uL (2.0-8.3); Neutrophils Percent Auto 73.6 % (45-73); Platelet Count 114 X10*3/uL (160-400); Red Blood Count 3.87 X10*6/uL (4.20-5.50); Red Cell Distribution Width 13.8 % (11.0-16.0); White Blood Count 5.2 X10*3/uL (4.8-10.8)
[2024-05-09 10:55] LABS: INTERNATIONAL NORM RATIO 1.1 (0.9-1.1); Prothrombin Time 12.8 SEC (11.1-13.3)
[2024-05-09 11:31] LABS: Alanine Aminotransferase 122 U/L (0-31); Albumin Level 3.1 g/dL (3.5-5.0); Alkaline Phosphatase 930 U/L (39-117); Anion Gap 11 (12-20); Aspartate Amino Transferase 128 U/L (5-31); Bilirubin Total 8.2 mg/dL (0.0-1.0); Blood Urea Nitrogen 13 mg/dL (9-16); Calcium 9.3 mg/dL (8.4-10.2); Carbon Dioxide 18 mmol/L (22-29); Chloride 114 mmol/L (96-108); Estimated Glomerular Filt Rate > 60; Glucose Random 123 mg/dL (60-115); Potassium 3.1 mmol/L (3.3-5.1); Sodium 140 mmol/L (135-145); Total Protein 6.5 g/dL (6.5-8.0)
== END 2024-05-09 09:33 | disposition home or self-care (01) ==
LOC: HO.LABR 09:32
PROVIDERS: PCP Family Medicine; Visit Provider Internal Medicine
DX: K74.69 Other cirrhosis of liver (principal)
CPT/HCPCS: 36415; 80053; 85025; 85610

== ENCOUNTER 2024-05-23 08:03 | Outpatient (REF) | payer OTHER, SELFPAY ==
--- NOTE | ~2024-05-23 | MR_ITS ---
EXAMINATION: MR ABDOMEN WITHOUT AND WITH CONTRAST MR CHOLANGIOPANCREATOGRAPHY CLINICAL INFORMATION: Cryptogenic hepatic cirrhosis COMPARISON: MRI abdomen on 02/10/2024 TECHNIQUE: Examination was performed in a high field strength MRI scanner. Multiplanar multiphasic imaging of the abdomen was performed without IV contrast enhancement. Multiphasic Axial T1 weighted fat suppressed images of the upper abdomen were obtained after IV injection of 5.5 mL Gadavist. Coronal T1 weighted fat-suppressed images of the abdomen were obtained following the dynamic axial series. MR cholangiopancreatography was performed with heavily T2 weighted sequences. 3-dimensional reconstruction of image data was performed. This was performed under concurrent direct supervision and monitoring by radiologist. Maximum intensity projection images were constructed. FINDINGS: MR CHOLANGIOPANCREATOGRAPHY: Gallbladder contains at least 2 large gallstones measuring up to 2.2 cm in diameter. Cystic duct is unremarkable. There is persistent intrahepatic mild bile duct orientation in the right hepatic lobe segment 7. Common hepatic duct and common bile duct are normal in size without filling defects. Pancreatic duct is normal in size. LIVER: The liver shows persistent loculated contour with lateral left hepatic lobe hypertrophy consistent with cirrhosis. Persistent T2 hyperintense periportal edema is present. No suspicious observation with arterial phase hyperenhancement could be seen. The previously reported lateral posterior right hepatic lobe segment 8 focal arterial phase hyperenhancement is not visualized on the current examination. The main portal vein is abnormally dilated to 1.7 cm in AP diameter, consistent with portal venous hypertension. There is also marked engorgement of the splenic vein. Persistent multiple lienorenal and periesophageal varices are present. There is unchanged right intrahepatic portosystemic shunt. The calculated hepatic fat percentage is 3.9%, compatible with normal. HEPATOBILIARY: Gallbladder is normal without filling defects. Common bile duct is not dilated. PANCREAS: No focal pancreatic lesion with abnormal signal can be seen. SPLEEN: Spleen is markedly enlarged, measuring 18.1 cm in vertical length (previously 16.7 cm) without focal lesion. ADRENAL: Bilateral adrenal glands are normal in shape and size. KIDNEYS: Bilateral kidneys are normal in size without focal lesion. Persistent 2 right parasagittal and right anterior medial cardiophrenic enhancing lymph nodes are seen measuring up to 1.3 cm in short axis, series 21 image #[id number], unchanged. MR/MR abdomen wo/w con IMPRESSION: 1. Unchanged Hepatic cirrhosis with periportal edema, portal venous hypertension, extensive varices. 2. Interval resolution of the right hepatic lobe segment 8 of the lesion with arterial phase hyperenhancement. No suspicious hepatic observation could be seen on the current examination. 3. Unchanged marked Cholelithiasis. 4. Unchanged right hepatic lobe segment 7 intrahepatic biliary ductal rotation. 5. No interval change in position of intrahepatic portosystemic shunt. 6. Interval increase in splenomegaly. 7. Unchanged right parasagittal and right anterior medial cardiophrenic enhancing lymph nodes. Electronically signed by: Molly Brooke MD 06/01/2024 09:17 AM EDT
[2024-05-23] MEDS: gadobutroL 7.5 ML VIAL IVPUSH (09:25)
== END 2024-05-23 08:04 | disposition home or self-care (01) ==
LOC: HO.MRI 08:03
PROVIDERS: PCP Family Medicine; Visit Provider Internal Medicine
DX: K74.69 Other cirrhosis of liver (principal)
CPT/HCPCS: 74183; A9585

== ENCOUNTER 2024-08-08 08:36 | Outpatient (REF) | payer OTHER, SELFPAY ==
[2024-08-08 09:16] LABS: MANUAL DIFF FLAG NO
[2024-08-08 09:39] LABS: Basophils Percent Auto 0.6 % (0-2); Eosinophils Absolute Auto 0.2 X10*3/uL (0.0-0.4); Eosinophils Percent Auto 4.2 % (0-4); Hematocrit 37.4 % (37.0-47.0); INTERNATIONAL NORM RATIO 1.1 (0.9-1.1); Imm Gran Abs Auto 0.02 X10*3/uL (0.00-0.03); Imm Gran Pct Auto 0.4 % (0.0-0.4); Lymphocytes Absolute Auto 0.9 X10*3/uL (1.2-4.9); Lymphocytes Percent Auto 17.3 % (20-40); Mean Corpuscular HGB Conc 34.8 g/dl (31.0-35.0); Mean Corpuscular Hemoglobin 32.4 pg (27.0-33.0); Mean Corpuscular Volume 93.3 fL (80.0-98.0); Mean Platelet Volume 12.8 fL (9.4-12.3); Monocytes Absolute Auto 0.3 X10*3/uL (0.1-1.2); Monocytes Percent Auto 6.6 % (2-11); Neutrophils Absolute Auto 3.6 x10*3/uL (2.0-8.3); Neutrophils Percent Auto 70.9 % (45-73); Platelet Count 143 X10*3/uL (160-400); Prothrombin Time 12.7 SEC (10.9-12.4); Red Blood Count 4.01 X10*6/uL (4.20-5.50); Red Cell Distribution Width 13.6 % (11.0-16.0)
[2024-08-08 09:56] LABS: Alanine Aminotransferase 123 U/L (0-31); Alkaline Phosphatase 988 U/L (39-117); Anion Gap 11 (12-20); Aspartate Amino Transferase 133 U/L (5-31); Bilirubin Total 6.8 mg/dL (0.0-1.0); Blood Urea Nitrogen 14 mg/dL (9-16); Calcium 8.4 mg/dL (8.4-10.2); Carbon Dioxide 16 mmol/L (22-29); Chloride 117 mmol/L (96-108); Estimated Glomerular Filt Rate > 60; Glucose Random 132 mg/dL (60-115); Potassium 3.3 mmol/L (3.3-5.1); Sodium 141 mmol/L (135-145); Total Protein 6.4 g/dL (6.5-8.0)
== END 2024-08-08 08:37 | disposition home or self-care (01) ==
LOC: HO.LABR 08:36
PROVIDERS: PCP Family Medicine; Visit Provider Internal Medicine
DX: K74.69 Other cirrhosis of liver (principal)
CPT/HCPCS: 36415; 80053; 85025; 85610

== ENCOUNTER 2024-08-27 09:01 | Outpatient (REF) | payer OTHER, SELFPAY ==
[2024-08-27 09:14] LABS: MANUAL DIFF FLAG NO
[2024-08-27 09:37] LABS: Basophils Percent Auto 0.7 % (0-2); Eosinophils Absolute Auto 0.2 X10*3/uL (0.0-0.4); Hematocrit 35.5 % (37.0-47.0); Hemoglobin 12.1 g/dl (12.0-16.0); Imm Gran Abs Auto 0.01 X10*3/uL (0.00-0.03); Imm Gran Pct Auto 0.2 % (0.0-0.4); Lymphocytes Absolute Auto 0.7 X10*3/uL (1.2-4.9); Lymphocytes Percent Auto 17.5 % (20-40); Mean Corpuscular HGB Conc 34.1 g/dl (31.0-35.0); Mean Corpuscular Hemoglobin 32.3 pg (27.0-33.0); Mean Corpuscular Volume 94.7 fL (80.0-98.0); Mean Platelet Volume 12.2 fL (9.4-12.3); Monocytes Absolute Auto 0.3 X10*3/uL (0.1-1.2); Monocytes Percent Auto 7.3 % (2-11); Neutrophils Percent Auto 70.3 % (45-73); Platelet Count 118 X10*3/uL (160-400); Red Blood Count 3.75 X10*6/uL (4.20-5.50); Red Cell Distribution Width 13.7 % (11.0-16.0); White Blood Count 4.2 X10*3/uL (4.8-10.8)
[2024-08-27 09:42] LABS: INTERNATIONAL NORM RATIO 1.2 (0.9-1.1)
[2024-08-27 10:26] LABS: Alanine Aminotransferase 100 U/L (0-31); Alkaline Phosphatase 931 U/L (39-117); Anion Gap 9 (12-20); Aspartate Amino Transferase 111 U/L (5-31); Bilirubin Total 7.8 mg/dL (0.0-1.0); Blood Urea Nitrogen 14 mg/dL (9-16); Calcium 8.4 mg/dL (8.4-10.2); Carbon Dioxide 23 mmol/L (22-29); Chloride 112 mmol/L (96-108); Estimated Glomerular Filt Rate > 60; Glucose Random 129 mg/dL (60-115); Potassium 3.4 mmol/L (3.3-5.1); Sodium 141 mmol/L (135-145)
== END 2024-08-27 09:02 | disposition home or self-care (01) ==
LOC: HO.LABR 09:01
PROVIDERS: PCP Family Medicine; Visit Provider Internal Medicine
DX: K74.69 Other cirrhosis of liver (principal)
CPT/HCPCS: 36415; 80053; 85025; 85610

== ENCOUNTER 2024-11-05 10:16 | Outpatient (REF) | payer OTHER, SELFPAY ==
[2024-11-05 12:08] LABS: Creatinine Urine 59.34 mg/dL; Microalbumin Urine < 5.0 mg/L
--- OUTSIDE RECORDS SUMMARY | 2024-11-05 14:53 | XMS_ITS | Clinical Summary ---
Demographics Address [address] [place] [address] Home Phone Mobile Phone Preferred Language Kazakh; Castilian Marital Status Single Synagogue Affiliation Unknown Race Unknown Ethnic Group Unknown Author Organization [facility] Address [address] [place] [address] Support Name Relationship Address Phone Orion Rubio Daughter [address] [place] [address] Care Team Providers Care Benefit Director Name Role Phone Kenney Maharajgus Beckett Primary Care Provider Allergies Active Allergy Reactions Criticality Noted Date Comments Latex Rash Medications BD Sandy 2nd Gen Pen Needle 4 mm x 32 g USE 1 NIGHTLY 1 Active Freestyle lancets 28 gauge 1 Active Freestyle Lite test strips CHECK BLOOD SUGAR 3 TIMES A DAY 1 Active Alcohol Prep Pads pads, medicated 1 Active lactulose 10 gram/15 mL solution Take 30 mL (20 g total) by mouth 3 times a day. 2700 mL 11 3 Active ferrous gluconate (FERGON) 324 mg (37.5 mg iron) tablet tablet Take 324 mg by mouth daily with breakfast. Active omeprazole (PriLOSEC) 20 mg capsule SMARTSI Capsule(s) By Mouth Daily 3 Active FreeStyle [place] Lite meter TEST BLOOD SUGAR THREE TIMES DAILY 4 Active FreeStyle [place] 2 [place] misc 4 Active FreeStyle [place] 2 Sensor kit 4 Active TRUEplus Lancets lancet 33 gauge TEST BLOOD SUGAR THREE TIMES DAILY 4 Active ciclopirox (PENLAC) 8 % solution SMARTSIG:Top ical Every Night 3 Active metoprolol tartrate (LOPRESSOR) 50 mg tabletIndicati ons:Encounter for pre-transplant evaluation for liver transplant Take 1 tablet (50 mg) by mouth 12 hours prior to exam. Take 1 tablet (50 mg) by mouth 1 hour prior to exam. 2 tablet 4 Active cholecalcifero l (VITAMIN D3) 1,250 mcg (50,000 unit) capsule TAKE 1 CAPSULE BY MOUTH ONE TIME PER WEEK 8 capsule 4 Active Lantus Solostar U-100 Insulin 100 unit/mL (3 mL) insulin pen injection Inject 14 Units under the skin nightly. 15 mL 11 4 Active FreeStyle [place] 3 [place] [facility] Use to monitor blood sugars. E11.9 1 each 05/15/2024 9:09 AM EDT 4 Active FreeStyle [place] 3 Sensor deviceIndicati ons:Type 2 diabetes mellitus without complication, with long-term current use of insulin ([facility]) ([facility]) Change sensor every 14 days. E11.9 2 each 11 07/25/2024 6:52 PM EDT 4 Active ferrous gluconate (FERGON) 324 mg (38 mg iron) tablet SMARTSI Tablet(s) By Mouth Twice Daily 4 Active FreeStyle [place] 3 Plus Sensor deviceIndicati ons:Type 2 diabetes mellitus without complication, with long-term current use of insulin ([facility]) ([facility]) Change sensor every 15 days. E11.65 2 each 11 08/23/2024 1:20 PM EST 4 Active zonisamide (ZONEGRAN) 100 mg capsule TAKE 2 CAPSULES (200 MG TOTAL) BY MOUTH AT BED TIME. 180 capsule 3 4 Active ursodioL (ACTIGALL) 250 mg tablet TAKE 1 TABLET BY MOUTH THREE TIMES A DAY 90 tablet 11 4 Active vitamin A 3,000 mcg (10,000 unit) capsule TAKE 1 CAPSULE (10,000 UNITS TOTAL) BY MOUTH ONCE A DAY. 60 capsule 5 025 Active vitamin A 3,000 mcg (10,000 unit) capsule TAKE 1 CAPSULE (10,000 UNITS TOTAL) BY MOUTH ONCE A DAY. 60 capsule 4 025 Discontinued Active Problems Problem Noted Date Diagnosed Date BPPV (benign paroxysmal positional vertigo) 12/09 Assessment & Plan (01/09/2021 9:25 AM EDT): Vestibular therapy referral Assessment & Plan (01/04/2020 2:51 PM EDT): The episodic dizziness correlates with head movement. This is likely due to BPPV. Extensively discussed the potential diagnosis and recommended vestibular therapy. Other insomnia 01/04/2020 Assessment & Plan (01/09/2021 9:34 AM EDT): Could be due to the lack of physical activities during the daytime. May try meditation to help with sleep issues discussed trying to increase daytime physical activities, leisure reading before bedtime and to push sleep time later to 10 PM Assessment & Plan (01/04/2020 3:00 PM EDT): Patient reports trouble falling asleep. Recommend trying mindfulness meditation but the patient is not interested. I advised to contact PCP for further evaluation and management of her insomnia. 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 She has been seizure free with Zonisamide 200 mg nightly and ran out of supplies 6 months ago. I recommend to resume Zonisamide since her risk of recurrent seizure is over 60% due to her prior hemorrhagic stroke. 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 Her epilepsy has been well controlled with current AED regimen without side effect. Continue Zonisamide 200 mg nightly. Refills given. Seizure and fall precaution Follow up in 1 year Assessment & Plan (10/31/2017 10:46 AM EST): 1. Continue Zonisamide 100 mg once at night 2. May apply for driving license after seizure free for 6 months and need to disclose epilepsy condition in the application form 3. Please keep a seizure diary and call me if you have a breakthrough seizure 4. Seizure and fall precaution 5. Follow up in 1 year Aphasia 02/20/2015 Assessment & Plan (10/31/2017 10:46 AM EST): Speech therapy for word finding difficulties Portal hypertension 03/13/2014 Varicose veins of esophagus with bleeding 2013 Chronic liver disease 10/27/2009 Encounters Date Type Department Care Team Description 10/24/2024 Refill [facility] Liver Transplant Services [address] [place] [address] Yasmin Ho MD 10/11/2024 Refill [facility] [address] [place] [address] [phone] Yasmin Ho MD 10/02/2024 Refill [facility] [address] [place] [address] Yasmin Ho MD 09/12/2024 Orders Only [facility] Interventional Radiology [address] [place] [phone] Eugene Warren MD 09/11/2024 8:00 AM EST Follow-Up [facility] [address] [place] [phone] Yasmin Ho MD Cryptogenic cirrhosis (CMS/HCC) (HCC) (Primary Dx) 09/11/2024 Orders Only [facility] Transplant Department [address] [place] [address] [phone] Katy Boateng RN Cryptogenic cirrhosis (CMS/HCC) (HCC) (Primary Dx) 08/29/2024 Orders Only [facility] Transplant Department [address] [place] [address] [phone] Katy Boateng RN Liver disease (Primary Dx) 08/28/2024 Abstract [facility] Transplant Department [address] [place] [address] Yasmin Ho MD 08/23/2024 Telephone [facility] Transplant Department [address] [place] [address] [phone] Katy Boateng RN 08/21/2024 Refill [facility] Gastroenterology Clinic [address] [place] [address] Agricultural Agent: Marilee Chawla NP 08/13/2024 Engage Message [facility]plant [facility] [address] [place] [address] Katy Boateng RN [facility] 08/13/2024 Telephone [facility] Transplant Department [address] [place] [address] 600[address] Katy Boateng RN 08/10/2024 Abstract [facility] Transplant Department [address] [place] [address] [phone] Yasmin Ho MD 08/07/2024 8:00 AM EDT Office Visit [facility] [address] [place] [phone] Manuel Carpenter PA Complex partial seizure (Primary Dx) from Last 3 Months Immunizations Name Administration Dates Next Due Diphtheria, Tetanus Toxoids and Acellular Pertussis Vaccine, 5 Pertussis Antigens 04/03/2010 Tuberculin Skin Test; Purifi ed Protein Derivative Solution, Intradermal 04/03/2010 Zoster Vaccine Recombinant 10/21/2023 Family History Medical History Relation Name Comments Other Mother Family History of liver disease Diabetes Sister Relation Name Status Comments Father Mother Sister Social History Tobacco Use Types Packs/Day Years Used Date Smoking Tobacco: Never Smokeless Tobacco: Never Tobacco Cessation:Counseling Given: Not Answered Comments:: Alcohol Use Standard Drinks/Week Comments No 0 (1 standard drink = 0.6 oz pur e alcohol) Comments Unknown Sex and Gender Information Value Date Recorded Sex Assigned at Female 08/14/2023 3:37 PM EST Legal Sex Female 7:50 AM EDT Gender Identity Female 08/14/2023 3:37 PM EST Sexual Orientation Straight 08/14/2023 3: 37 PM EST Last Filed Vital Signs Vital Sign Reading Time Taken Comments Blood Pressure 120/71 09/11/2024 8:14 AM EST Pulse 90 09/11/2024 8:14 AM EST Temperature 36.5 ??C (97.7 ??F) 09/11/2024 8:14 AM ES T Respiratory Rate 16 09/11/2024 8:14 AM EST Oxygen Saturation 100% 09/11/2024 8:14 AM EST Inhaled Oxygen Concentration - - Weight 51.3 kg (113 lb 1.5 oz) 09/11/2024 8:14 A M EST Height 144.8 cm (4' 9 ) 08/19/2023 9:26 AM EST Body Mass Index 24.47 08/19/2023 9:26 AM EST Plan of Treatment Upcoming Encounters Date Type Department Care Team (Late st Contact Info) Description 11/14/2024 8:00 AM EST Office Visit [facility] [address] [place] [phone] Agricultural Agent: Paola Vance NP [address] [place] [address] [place] [address] 01/08/2025 8:00 AM EDT Follow-Up [facility]plant [facility] [address] [place] [address] Yasmin Ho MD [address] [place] [address] 08/06/2025 8:00 AM EDT Office Visit [facility] Neurology [facility] [address] [place] [address] 14514 Manuel Carpenter PA [address] [place] [address] Health Maintenance Due Date Last Done Comments HPV and Pap Smear 1981 Ophthalmology Exam 1991 Varicella Vaccines (1 of 2 - 13+ 2-dose series) 1994 10/21/2023 Mammogram 2021 Cervical Cancer Screening 03/25/2024 Pap Smear 03/25/2024 03/25/2021 Alcohol/Substance Use Screening 10/10/2024 Depression Evaluation 10/10/2024 [employer] [place] ual Screening 10/10/2024 Hemoglobin A1C 01/06/2025 07/09/2024, 04/09, 01/18/2024, Additional history exists Urine Microalbumin 04/26/2025 04/26/2024 Basic Metabolic Panel 09/11/2025 09/11/2024 , 08/27/2024, 05/31/2024, Additional history exists DTaP,Tdap,and Td Vaccines (4 - Td or Tdap) 08/29/2033 08/29/2023, 07/21/2012, 04/03/2010 RSV Vaccine (60+ years old a nd patients) (1 - 1-dose 75+ series) 2056 Pneumococcal Vaccine: Pediat bon (0-5 Years) and At-Risk Patients (6-64 Years) Completed 07/28/2023, 06/26/2011, 06/11/2009, Additional history exists HIV Screening Completed 09/20/2023 Hepatitis C Screening Completed 09/20/2023 , 01/15/2014, 03/30/2010, Additional history exists Hepatitis B Vaccines Completed 09/29/2023, 07/28/2023, 07/13/2019, Additional history exists COVID-19 Vaccine Completed 07/09/2024, , 03/17/2021 Influenza Vaccine Completed 07/09/2024, , 06/25/2022, Additional history exists Procedures * Due to [place] state law, this organization might not be sharing negative HIV tests. Procedure Name Priority Date/Time Associated Diagnosis Comments BILIRUBIN, DIRECT Routine 09/11/2024 9:0 8 AM EST Cryptogenic cirrhosis (CMS/HCC) (HCC) COMPREHENSIVE METABOLIC PANEL Routine 09/11/2024 9:08 AM EST Liver disease AFP TUMOR MARKER Routine 09/11/2024 9:08 AM EST Liver disease CBC AUTO DIFFERENTIAL Routine 09/11/2024 9:08 AM EST Liver disease PROTIME-INR Routine 09/11/2024 9:08 AM EST Liver disease LIVER PRE EXTERNAL PANEL Routine 08/27/2024 9:12 AM EST LIVER PRE EXTERNAL PANEL Routine 08/08/2024 9:15 AM EDT MICROALBUMIN, RANDOM URINE WITH CREATININE Routine 04/26/2024 4:22 PM EDT Type 2 diabetes mellitus without complication, with long-term current use of insulin (CMS/HCC) (HCC) POCT GLYCOSYLATED HEMOGLOBIN (HGB A1C) Routine 04/26/2024 2:32 PM EDT HEPATITIS C ANTIBODY W/REFLEX TO HCV RNA, QUANTITATIVE PCR Routine 09/20/2023 12:40 PM EST Encounter for pre-transplant evaluation for liver transplant from Last 3 Months or Most Recently Relevant to Health Maintenance Results * Due to [place] state law, this organization might not be sharing negative HIV tests. * (ABNORMAL) CBC Auto Differential (09/11/2024 9:08 AM EST) WBC 5.4 3.8 - 10.8 10*3/uL 09/11/2024 9:36 AM EST [facility] RBC 4.07 3.80 - 5.10 10*6/uL 09/11/2024 9:36 AM EST [facility] Hemoglobin 12.7 11.7 - 15.5 g/dL 09/11/2024 9:36 AM EST [facility] Hematocrit 38.2 35.0 - 45.0 % 09/11/2024 9:36 AM EST [facility] MCV 93.9 80.0 - 100.0 fL 09/11/2024 9:36 AM EST [facility] MCH 31.2 27.0 - 33.0 pg 09/11/2024 9:36 AM EST [facility] MCHC 33.2 32.0 - 36.0 g/dL 09/11/2024 9:36 AM EST [facility] RDW 14.3 11.0 - 15.0 % 09/11/2024 9:36 AM EST [facility] Platelets 160 140 - 400 10*3/uL 09/11/2024 9:36 AM EST [facility] MPV 12.1 7.5 - 12.5 fL 09/11/2024 9:36 AM EST [facility] Neutrophil % 78.3 % 09/11/2024 9:36 AM EST [facility] Immature Grans % 0.4 0.0 - 0.9 % 09/11/2024 9:36 AM EST [facility] Lymphocyte % 12.8 % 09/11/2024 9:36 AM EST [facility] Monocyte % 5.5 % 09/11/2024 9:36 AM EST [facility] Eosinophil % 2.6 % 09/11/2024 9:36 AM EST [facility] Basophil % 0.4 % 09/11/2024 9:36 AM EST [facility] Neutrophil # 4.24 1.50 - 7.80 10*3/uL 09/11/2024 9:36 AM EST [facility] Immature Grans # <0.03 <=0.03 10*3/uL 09/11/2024 9:36 AM EST [facility] Lymphocyte # 0.70(L) 0.85 - 3.90 10*3/uL 09/11/2024 9:36 AM EST [facility] Monocyte # 0.30 0.20 - 0.95 10*3/uL 09/11/2024 9:36 AM EST [facility] Eosinophil # 0.10 0.02 - 0.50 10*3/uL 09/11/2024 9:36 AM EST [facility] Basophil # <0.03 0.00 - 0.20 10*3/uL 09/11/2024 9:36 AM EST [facility] nRBC % 0.0 /100 WBCs 09/11/2024 9:36 AM EST [facility] nRBC # <0.01 <0.01 10*3/uL 09/11/2024 9:36 AM EST [facility] Blood Structure of peripheral vein / Unknown Venipuncture / Unknown 09/11/2024 9:08 AM EST 09/11/2024 9:27 AM EST us Yasmin Ho MD LAB BLOOD ORDERABLES Final R esult [facility] [address] [place] [address], [place] * AFP Tumor Marker (09/11/2024 9:08 AM EST) Alpha Fetoprotein, Tumor Marker 3.4 ng/mL 09/12/2024 12:39 PM EST [facility] Comment: Reference Range: ?? <6.1 The use of AFP as a tumor marker in females is not recommended. This test was performed using the Magdiel Dev chemiluminescent method. Values obtained from different assay methods cannot be used interchangeably. AFP levels, regardless of value, should not be interpreted as absolute evidence of the presence or absence of disease. Blood Structure of peripheral vein / Unknown Venipuncture / Unknown 09/11/2024 9:08 AM EST 09/11/2024 9:26 AM EST Narrative [facility] 09/12/2024 12:39 PM EST [facility] Received Date: Yasmin Ho MD LAB BLOOD ORDERABLES Final R esult [facility] [address], [place] [address], [place] [phone] [facility] [address] [facility] [address], [place] [address], [place] [phone] * [facility]-INR (09/11/2024 9:08 AM EST) PT 12.2 9.6 - 12.4 Seconds 09/11/2024 9:52 AM EST [facility] INR 1.1 0.9 - 1.1 09/11/2024 9:52 AM EST [facility] Comment:The optimal therapeu tic INR range for patients treated with Vitamin K antagonists (VKAS, e.g., Warfarin) is 2.0 to 3.5. Discuss the desired range with your doctor/care team. Blood Structure of peripheral vein / Unknown Venipuncture / Unknown 09/11/2024 9:08 AM EST 09/11/2024 9:26 AM EST Yasmin Ho MD LAB BLOOD ORDERABLES Final R esult [facility] [address] [place] [address], * (ABNORMAL) Bilirubin, Direct (09/11/2024 9:08 AM EST) Bilirubin, Direct 6.9(H) <=0.4 mg/dL 09/11/2024 10:02 AM EST [facility] Blood Structure of peripheral vein / Unknown Venipuncture / Unknown 09/11/2024 9:08 AM EST 09/11/2024 9:25 AM EST us Yasmin Ho MD LAB BLOOD ORDERABLES Final R esult [facility] [address] [place] [address], * (ABNORMAL) Comprehensive Metabolic Panel (09/11/2024 9:08 AM EST) NA 142 135 - 145 mmol/L 09/11/2024 10:02 AM EST [facility] K 3.6 3.5 - 5.3 mmol/L 09/11/2024 10:02 AM EST [facility] Cl 110(H) 98 - 107 mmol/L 09/11/2024 10:02 AM EST [facility] CO2 19(L) 22 - 32 mmol/L 09/11/2024 10:02 AM EST [facility] Anion Gap 13 5 - 15 09/11/2024 10:02 AM EST [facility] Glucose 242(H) 65 - 99 mg/dL 09/11/2024 10:02 AM EST [facility] Creatinine 0.67 0.50 - 1.20 mg/dL 09/11/2024 10:02 AM EST [facility] Calcium 8.8 8.6 - 10.5 mg/dL 09/11/2024 10:02 AM EST [facility] Total Protein 6.6 6.0 - 8.0 g/dL 09/11/2024 10:02 AM EST [facility] Albumin 3.3(L) 3.5 - 5.2 g/dL 09/11/2024 10:02 AM EST [facility] Bilirubin, Total 8.7(H) 0.2 - 1.2 mg/dL 09/11/2024 10:02 AM EST [facility] Alkaline Phosphatase 1,141(H) 35 - 129 U/L 09/11/2024 10:02 AM EST [facility] AST 122(H) 10 - 40 U/L 09/11/2024 10:02 AM EST [facility] ALT 105(H) 10 - 40 U/L 09/11/2024 10:02 AM EST [facility] BUN 18 7 - 23 mg/dL 09/11/2024 10:02 AM EST [facility] eGFR >90 >=60 mL/min/1 .73m2 09/11/2024 10:02 AM EST [facility] Comment:The estimated glomer ular filtration rate (eGFR) is calculated using a new formula developed by the NKF-ASN task force to eliminate race-based correction factors. The new formula uses serum/plasma creatinine, age, and gender to determine eGFR. A value below 60mls/min might indicate kidney disease and will be flagged. For additional information, see Eugene et al, Am J Kidney Dis. 2021;79(2):268- 288, A Unifying Approach for GFR estimation: Recommendations of the NKF-ASN Task Force on Reassessing the Inclusion of Race in Diagnosing Kidney Disease . Globulin, Total 3.3 2.1 - 4.2 g/dL 09/11/2024 10:02 AM [facility] A/G Ratio 1.0(L) 1.5 - 3.0 09/11/2024 10:02 AM EST [facility] Blood Structure of peripheral vein / Unknown Venipuncture / Unknown 09/11/2024 9:08 AM EST 09/11/2024 9:25 AM EST us Yasmin Ho MD LAB BLOOD ORDERABLES Final R esult [facility] [address] [place] [address], * LIVER PRE EXTERNAL PANEL (08/27/2024 9:12 AM EST) Only the most recent of2 resultswithin the time period is included. Sodium 141 mmol/L [facility] Potassium 3.4 [facility] Chloride 112 [facility] Carbon Dioxide 23 [facility] Glucose 129 [facility] BUN 14 mg/dL [facility] Creatinine 0.61 mg/dL [facility] Calcium 8.4 mg/dL [facility] Total Protein 6.0 g/dL [facility] Albumin 3.0 g/dL [facility] Bilirubin, Total 7.8 mg/dL [facility] Alkaline Phosphatase 931 U/L [facility] AST 111 U/L [facility] ALT 100 U/L [facility] WBC 4.2 10*3/uL [facility] Hgb 12.1 [facility] Hematocrit 35.5 % [facility] Platelets 118 10*3/uL [facility] INR 1.20 [facility] 08/27/2024 9:12 AM EST us Yasmin Ho MD LAB BLOOD ORDERABLES Final R esult [facility] [address] [place] [address] * Microalbumin, Random Urine with Creatinine (04/26/2024 4:22 PM EDT) Microalbumin, Urine <2.0 mg/dL 04/26/2024 5:20 PM EDT [facility] Creatinine, Urine 69 15 - 278 mg/dL 04/26/2024 5:20 PM EDT [facility] Microalb/Creat Ratio, Random Urine 04/26/2024 5:20 PM EDT [facility] Comment: < 1.0 mcg/mgCr Microalbumin Reference Range: Normal ? <30 mcg/mg Creatinine Microalbuminuria ? 30-300 mcg/mg Creatinine Clinical Albuminuria >300 mcg/mg Creatinine Reference: ADA Guideline. Diabetes Care. 2004;27 (suppl 1) Urine Voided urine specimen / Unknown Non-Blood Collection / Unknown 04/26/2024 4:22 PM EDT 04/26/2024 4:35 PM EDT Natasha Kramer MD LAB URINE ORDERABLES Final Resul t [facility] [address] [place] [address], [place] * POCT Glycosylated Hemoglobin (HGB A1C), interfaced (04/26/2024 2:32 PM EDT) Hemoglobin A1C, POCT 4.2 <=5.6 % 04/26/2024 2:40 PM EDT [facility] Comment: A1C Recommendation for Non- Adults with Diabetes: <7.0% ADA 2011 Standards of Medical Care in Diabetes Blood 04/26/2024 2:32 PM EDT 04/26/2024 2:40 PM EDT Natasha Kramer MD LAB POCT ORDERABLES - DEVICE Fin al Result Performing Organization Address City/[facility] Co de Phone Number [facility] [address] [place] [address], [place] * Hepatitis C Antibody w/Reflex to PCR (09/20/2023 12:40 PM EST) Hepatitis C Antibody NON-REACT VIVEK NON-REACT VIVEK 09/21/2023 6:41 AM EST [facility] Comment: HCV antibody was non-reactive. There is no laboratory evidence of HCV infection. In most cases, no further action is required. However, if recent HCV exposure is suspected, a test for HCV RNA (test code 47133) is suggested. For additional information please refer to http://education.[employer]/faq/PRO47z8 (This link is being provided for informational/ educational purposes only.) Blood Structure of peripheral vein / Unknown Venipuncture / Unknown 09/20/2023 12:40 PM EST 09/20/2023 1:07 PM EST Narrative [facility] 09/21/2023 6:41 AM EST [facility] Received Date:[id number] Yasmin Ho MD LAB BLOOD ORDERABLES Final R esult [facility] [place] [address] [facility] [address] [facility] [address], [place] [address], [place] [phone] [facility] [address] [facility] [address], [place] [address], [place] [phone] from Last 3 Months or Most Recently Relevant to Health Maintenance Insurance [facility] Advance Directives Documents on File Type Date Recorded Patient Public Health Staff Nurse Expl anatunc health Health Care Proxy 10/26/2023 12:55 PM 10-10 Advance Directive 01/22/2014 12:00 AM Michael mahoney Care Directives Advance Directive 04/03/2010 12:00 AM luba begum Dec Making (Adv.Dir) * Presumed Full Code (Latest Code Status on File) Date Activated Date Inactivated Comments 05/15/2024 12:15 PM 05/16/2024 2:39 AM Care Teams Benefit Director Relationship Specialty Start Date End Date WitheeSammie [address] [place] [address] PCP - General Family Medicine 05/15/18
--- OUTSIDE RECORDS SUMMARY | 2024-11-05 14:53 | XMS_ITS | Encounter Summary ---
Demographics Address [address] [facility] [address] [place] [address] Home Phone Mobile Phone Preferred Language [place] Islander; Castilian Marital Status Single Confucianism Affiliation Unknown Race Unknown Ethnic Group Unknown Author Organization [facility] Address [address] [place] [address] Support Name Relationship Address Phone Orion Rubio Daughter [address] [facility] [address] [place] [address] Care Team Providers Care Connie Cleaner Name Role Phone Sammie Maharaj Primary Care Provider +1- [phone] Reason for Visit * Reason Comments Med Refill Encounter Details Date Type Department Care Team (Late st Contact Info) Description 10/11/2024 Refill [facility] Liver Transplant Services [address] [place] [address] Yasmin Ho MD [address] [place] [address] Social History Tobacco Use Types Packs/Day Years Used Date Smoking Tobacco: Never Smokeless Tobacco: Never Comments:: Alcohol Use Standard Drinks/Week Comments No 0 (1 standard drink = 0.6 oz pur e alcohol) Comments Unknown Sex and Gender Information Value Date Recorded Sex Assigned at Female 08/14/2023 3:37 PM EST Legal Sex Female 7:50 AM EDT Gender Identity Female 08/14/2023 3:37 PM EST Sexual Orientation Straight 08/14/2023 3: 37 PM EST documented as of this encounter Plan of Treatment Upcoming Encounters Date Type Department Care Team (Late st Contact Info) Description 11/14/2024 8:00 AM EST Office Visit [facility] Building Diabetes Clinic [address] [place] [address] Mortuary Operations Manager: Paola Vance NP [address] [place] [address] [place] [address] 01/08/2025 8:00 AM EDT Follow-Up [facility] Liver Transplant Services [address] [place] [address] Yasmin Ho MD [address] [place] [address] 08/06/2025 8:00 AM EDT Office Visit [facility] Building Neurology Clinic [address] [place] [address] Manuel Carpenter PA [address] [place] [address] documented as of this encounter Visit Diagnoses Not on filedocumented in this encounter Care Teams Connie Cleaner Relationship Specialty Start Date End Date WashingtonSammie thompson [address] [place] [address] PCP - General Family Medicine 05/15/18 documented as of this encounter
--- OUTSIDE RECORDS SUMMARY | 2024-11-05 14:53 | XMS_ITS | Encounter Summary ---
Demographics Address [address] [facility] [address] [place] [address] Home Phone Mobile Phone Preferred Language Nepalese; Castilian Marital Status Single Islam Affiliation Unknown Race Unknown Ethnic Group Unknown Author Organization [facility] Address [address] [place] [address] Support Name Relationship Address Phone Orion Rubio Daughter [address] [facility] [address] [place] [address] Care Team Providers Care Anesthesiologist And Critical Care Name Role Phone Sammie Maharaj Primary Care Provider [phone]- [phone] Encounter Details Date Type Department Care Team (Late st Contact Info) Description 09/20/2023 Orders Only [facility] Interventional Radiology [address] [place] [address] Ricardo Reyez MD [address] [place] [address] Social History Tobacco Use Types Packs/Day Years [...] Description 11/14/2024 8:00 AM EST Office Visit [facility] Building Diabetes Clinic [address] [place] [address] Branch Service Leader: Paola Vance NP [address] [facility] [place] [address] 01/08/2025 8:00 AM EDT Follow-Up [facility] Liver Transplant Services [address] [place] [address] Yasmin Ho MD [address] [place] [address] 08/06/2025 8:00 AM EDT Office Visit [facility] Building Neurology Clinic [address] [place] [address] Manuel Carpenter PA [address] [place] [address] documented as of this encounter Visit Diagnoses Not on filedocumented in this encounter Care Teams Anesthesiologist And Critical Care Relationship Specialty Start Date End Date CayeySammie thompson [address] [place] [address] PCP - General Family Medicine 05/15/18 documented as of this encounter
--- OUTSIDE RECORDS SUMMARY | 2024-11-05 14:53 | XMS_ITS | Encounter Summary ---
Demographics Address [address] [facility] [address] [place] [address] Home Phone Mobile Phone Preferred Language Gambian; Castilian Marital Status Single Mandaen Affiliation Unknown Race Unknown Ethnic Group Unknown Author Organization [facility] Address [address] [place] [address] Support Name Relationship Address Phone Orion Rubio Daughter [address] [facility] [address] [place] [address] Care Team Providers Care Tax Compliance Manager Name Role Phone Sammie Maharaj Primary Care Provider [phone]- [phone] Encounter Details Date Type Department Care Team (Late st Contact Info) Description 10/27/2023 Orders Only [facility] Interventional Radiology [address] [place] [address] Enzo Conner MD [address] [place] [address] Social History Tobacco Use Types Packs/Day Years [...] Description 11/14/2024 8:00 AM EST Office Visit [facility] Building Diabetes Clinic [address] [place] [address] Instructional Supervisor: Paola Vance NP [address] [place] [address] [place] [address] 01/08/2025 8:00 AM EDT Follow-Up [facility] Liver Transplant Services [address] [place] [address] Yasmin Ho MD [address] [place] [address] 08/06/2025 8:00 AM EDT Office Visit [facility] Building Neurology Clinic [address] [place] [address] Manuel Carpenter PA [address] [place] [address] documented as of this encounter Visit Diagnoses Not on filedocumented in this encounter Care Teams Tax Compliance Manager Relationship Specialty Start Date End Date [place], Sammie Beckett [address] [place] [address] PCP - General Family Medicine 05/15/18 documented as of this encounter
--- OUTSIDE RECORDS SUMMARY | 2024-11-05 14:53 | XMS_ITS | Encounter Summary ---
Author Organization [employer] [facility] Address [address] [facility] [address] [place] [address] Care Team Providers Care Engineered Wood Designer Name Role Phone Sammie Maharaj MD Primary Care Provider +1- [phone] Loyda Glaser RN Unavailable [phone] Yasmin Ho MD Unavailable Reason for Visit * Reason Onset Date Comments Nurse Triage 03/22/2023 Encounter Details Date Type Department Care Team (Late st Contact Info) Description 03/22/2023 Telephone [facility] [address] [place] [address] Sammie Maharaj MD [address] [place], [place] [id number] Nurse Triage Social History Tobacco Use Types Packs/Day Years Used Date Smoking Tobacco: Never Assessed Comments Unknown Sex and Gender Information Value Date Recorded Sex Assigned at Female 08/09/2022 10:18 AM EDT Legal Sex Female 10:18 AM EDT Gender Identity Female 08/09/2022 10:18 AM EDT Sexual Orientation Straight 08/09/2022 10 :18 AM EDT documented as of this encounter Miscellaneous Notes * Telephone Encounter - Olga Cruz RN - 03/22/2023 2:01 PM EDT Triage call with [employer] Instrument[employer] Teacher [place] [id number] Pt didn't answer left message to call [facility] triage line at [phone]. Triage call with [email or web address] Instrumental Teacher ID [id number] Pt answered, Pt wasn't able to say birthday to confirm, Pt did confirm was aubrie lu. Pt denied calling and reports it was daughter who called and daughter is at work. Pt reports will call back when daughter is home. Ended call. * Telephone Encounter - Itzel Taveras - 03/22/2023 1:15 PM EDT Symptom: Breast Symptoms (pain) Outcome: Schedule an appointment to be seen within 24 hours Reason: Caller denied all higher acuity questions The caller accepted this outcome documented in this encounter Plan of Treatment Upcoming Encounters Date Type Department Care Team (Late st Contact Info) Description 02/25/2025 9:00 AM EDT Office Visit [facility] [address] [place] [address] MckayDarshana coppola, OD [address] [place] [address] documented as of this encounter Visit Diagnoses Not on filedocumented in this encounter Care Teams Engineered Wood Designer Relationship Specialty Start Date End Date Sammie Maharaj MD [address] [place] [address] PCP - General Family Medicine 10/10/18 Loyda Glaser RN [address] [place] [address] Overhead Crane Technician Family Medicine 10/31/23 Yasmin Ho MD [address] [place] [address] Gastroenterology 08/29/24 Manuel Carpenter PA [address] [address] Neurology 08/29/24 Paola Tolentino NP [address] [address] Endocrinology 10/24/24 documented as of this encounter
--- OUTSIDE RECORDS SUMMARY | 2024-11-05 14:53 | XMS_ITS | Referral Summary ---
Demographics Address [address] [facility] [address] [place] [address] Home Phone Mobile Phone Preferred Language Marshallese; Castilian Marital Status Single Yazidi Affiliation Unknown Race Unknown Ethnic Group Unknown Author Organization [facility] Address [address] [place] [address] Support Name Relationship Address Phone Orion Rubio Daughter [address] [facility] [address] [place] [address] Care Team Providers Care Electrical Integrator Name Role Phone Nicko, Sammie Sujit Primary Care Provider Encounters Date Type Department Care Team Description 10/24/2024 Refill [facility] Liver Transplant Services [address] [place] [address] Yasmin Ho MD 10/11/2024 Refill [facility] Liver Transplant Services [address] [place] [address] 12520 Yasmin Ho MD 10/02/2024 Refill [facility] Liver Transplant Services [address] [place] [address] Yasmin Ho MD 09/12/2024 Orders Only [facility] Interventional Radiology [address] [place] [address] Eugene Warren MD 09/11/2024 Orders Only [facility] Transplant Department [address] [place] [address]47[address] Katy Boateng RN Cryptogenic cirrhosis (CMS/HCC) (HCC) (Primary Dx) 09/11/2024 8:00 AM EST Follow-Up [facility] Liver Transplant Services [address] [place] [address] 43832 Yasmin Ho MD Cryptogenic cirrhosis (CMS/HCC) (HCC) (Primary Dx) 08/29/2024 Orders Only [facility] Transplant Department [address] [place] [address] Katy Boateng RN Liver disease (Primary Dx) 08/28/2024 Abstract [facility] Transplant Department [address] [place] [address] 41247 Yasmin Ho MD 08/23/2024 Telephone [facility] Transplant Department [address] [place] [address] 20574 Katy Boateng RN 08/21/2024 Refill [facility] Gastroenterology Clinic [address] [place] [address] Washer Machine: Marilee Chawla NP 08/13/2024 myCRecommendit Message [facility] Liver Transplant Services [address] [place] [address] Katy Boateng RN [facility] 08/13/2024 Telephone [facility] Transplant Department [address] [place] [address] Katy Boateng RN 08/10/2024 Abstract [facility] Transplant Department [address] [place] [address] 38804 Yasmin Ho MD 08/07/2024 8:00 AM EDT Office Visit [facility] Building Neurology Clinic [address] [place] [address] Manuel Carpenter PA Complex partial seizure (Primary Dx) from Last 3 Months Allergies Active Allergy Reactions Criticality Noted Date [...] Capsule(s) By Mouth Daily 3 Active FreeStyle Beverly Lite meter TEST BLOOD SUGAR THREE TIMES DAILY 4 Active FreeStyle [place] 2 [place] misc 4 Active FreeStyle [place] 2 Sensor [...] mL 11 4 Active FreeStyle [place] 3 [place] misc Use to monitor blood sugars. E11.9 1 each 05/15/2024 9:09 AM EDT 4 Active FreeStyle [place] 3 Sensor deviceIndicati ons:Type 2 diabetes mellitus without complication, with long-term current use of insulin (CMS/HCC) ([facility]) Change sensor every 14 days. E11.9 2 each 11 07/25/2024 6:52 PM EDT 4 Active ferrous gluconate (FERGON) 324 mg (38 mg iron) tablet SMARTSI Tablet(s) By Mouth Twice Daily 4 Active FreeStyle [place] 3 Plus Sensor deviceIndicati ons:Type 2 diabetes mellitus without complication, with long-term current use of insulin (CMS/HCC) (HCC) Change sensor every 15 days. E11.65 2 [...] with bleeding 2013 Chronic liver disease 10/27/2009 Immunizations Name Administration Dates Next Due Diphtheria, Tetanus Toxoids and Acellular Pertussis Vaccine, 5 Pertussis Antigens 04/03/2010 Tuberculin Skin Test; Purifi ed Protein Derivative Solution, Intradermal 04/03/2010 Zoster Vaccine Recombinant 10/21/2023 Social History Tobacco Use Types Packs/Day Years [...] Description 11/14/2024 8:00 AM EST Office Visit [facility] Diabetes Clinic [address] [place] [address] Washer Machine: Paola Vance NP [address] [place] [address] [place] [address] 01/08/2025 8:00 AM EDT Follow-Up [facility] Liver Transplant Services [address] [place] [address] Yasmin Ho MD [address] [place] [address] 08/06/2025 8:00 AM EDT Office Visit [facility] Neurology Clinic [address] [place] [address] Manuel Carpenter PA [address] [place] [address] Procedures * Due to [place] state law, this organization might not be [...] to Health Maintenance Results * Due to [place] [employer] law, this organization might not be sharing negative HIV tests. * (ABNORMAL) CBC Auto Differential (09/11/2024 9:08 AM EST) WBC 5.4 3.8 - 10.8 10*3/uL 09/11/2024 9:36 AM EST [facility] RBC 4.07 3.80 - 5.10 10*6/uL 09/11/2024 9:36 AM EST [facility] Hemoglobin 12.7 11.7 - 15.5 g/dL 09/11/2024 9:36 AM EST [facility] Hematocrit 38.2 35.0 - [...] <0.03 <=0.03 10*3/uL 09/11/2024 9:36 AM EST [facility] Lymphocyte # 0.70(L) 0.85 - 3.90 10*3/uL 09/11/2024 9:36 AM EST [facility] Monocyte # 0.30 0.20 - 0.95 10*3/uL 09/11/2024 9:36 AM EST [facility] Eosinophil # 0.10 0.02 - 0.50 10*3/uL 09/11/2024 9:36 AM EST [facility] Basophil # <0.03 0.00 - 0.20 10*3/uL 09/11/2024 9:36 AM EST [facility] nRBC % 0.0 /100 WBCs 09/11/2024 9:36 AM EST [facility] nRBC # <0.01 <0.01 10*3/uL 09/11/2024 9:36 AM EST [facility] Blood Structure of peripheral vein / Unknown Venipuncture / Unknown 09/11/2024 9:08 AM EST 09/11/2024 9:27 AM EST us Yasmin Ho MD LAB BLOOD ORDERABLES Final R esult [facility] [address] [place] [address], * AFP Tumor Marker (09/11/2024 9:08 AM EST) Alpha Fetoprotein, Tumor Marker 3.4 ng/mL 09/12/2024 12:39 PM EST [employer] [facility] Comment: Reference Range: ?? <6.1 The use of AFP as a tumor marker in females is not recommended. This test was performed using the Magdiel [place] chemiluminescent method. Values obtained from different assay methods cannot be used interchangeably. AFP levels, regardless of value, should not be interpreted as absolute evidence of the presence or absence of disease. Blood Structure of peripheral vein / Unknown Venipuncture / Unknown 09/11/2024 9:08 AM EST 09/11/2024 9:26 AM EST Narrative [facility] - 09/12/2024 12:39 PM EST [facility] Received Date: Yasmin Ho MD LAB BLOOD ORDERABLES Final R esult [facility] [address] [facility] 3rd Floor, [place] [address], [place] [phone] [employer] [address], [place] [address], [place] [phone] * Protime-INR (09/11/2024 9:08 AM EST) PT 12.2 9.6 - 12.4 Seconds 09/11/2024 9:52 AM EST [facility] INR 1.1 0.9 - 1.1 09/11/2024 9:52 AM EST [facility] Comment:The optimal therapeu tic INR range for patients treated with Vitamin K antagonists (VKAS, e.g., Warfarin) is 2.0 to 3.5. Discuss the desired range with your doctor/care team. Blood Structure of peripheral vein / Unknown Venipuncture / Unknown 09/11/2024 9:08 AM EST 09/11/2024 9:26 AM EST us Yasmin Ho MD LAB BLOOD ORDERABLES Final R esult [facility] [address] [place] [address], [place] * (ABNORMAL) Bilirubin, Direct (09/11/2024 9:08 AM EST) Bilirubin, Direct 6.9(H) <=0.4 mg/dL 09/11/2024 10:02 AM EST [facility] Blood Structure of peripheral vein / Unknown Venipuncture / Unknown 09/11/2024 9:08 AM EST 09/11/2024 9:25 AM EST us Yasmin Ho MD LAB BLOOD ORDERABLES Final R esult [facility] [address] [place] [address], * (ABNORMAL) Comprehensive Metabolic Panel (09/11/2024 9:08 AM EST) NA 142 135 - 145 mmol/L 09/11/2024 10:02 AM EST [facility] K 3.6 3.5 - 5.3 mmol/L 09/11/2024 10:02 AM EST [facility] Cl 110(H) 98 - 107 mmol/L 09/11/2024 10:02 AM EST [facility] CO2 19(L) 22 - 32 mmol/L 09/11/2024 10:02 AM EST [facility] Anion Gap 13 5 - 15 09/11/2024 10:02 AM EST [facility] Glucose 242(H) 65 - 99 mg/dL 09/11/2024 10:02 AM EST [facility] Creatinine 0.67 0.50 - 1.20 mg/dL 09/11/2024 10:02 AM EST [facility] Calcium 8.8 8.6 - 10.5 mg/dL 09/11/2024 10:02 AM EST [facility] Total Protein 6.6 6.0 - 8.0 g/dL 09/11/2024 10:02 AM EST [facility] Albumin 3.3(L) 3.5 - 5.2 g/dL 09/11/2024 10:02 AM EST [facility] Bilirubin, Total 8.7(H) 0.2 - 1.2 mg/dL 09/11/2024 10:02 AM EST [facility] [employer] Alkaline Phosphatase 1,141(H) 35 - 129 U/L 09/11/2024 10:02 AM EST [facility] AST 122(H) 10 - 40 U/L 09/11/2024 10:02 AM EST [facility] [employer] [facility] ALT 105(H) 10 - 40 U/L 09/11/2024 10:02 AM EST [facility] [employer] [facility] BUN 18 7 - 23 mg/dL 09/11/2024 10:02 AM EST [facility] eGFR >90 >=60 mL/min/1 .73m2 09/11/2024 10:02 AM EST [facility] Comment:The estimated glomer ular [...] 2.1 - 4.2 g/dL 09/11/2024 10:02 AM EST [facility] A/G Ratio 1.0(L) 1.5 - 3.0 09/11/2024 10:02 AM EST [facility] Blood Structure of peripheral vein / Unknown Venipuncture / Unknown 09/11/2024 9:08 AM EST 09/11/2024 9:25 AM EST us Yasmin Ho MD LAB BLOOD ORDERABLES Final R esult [facility]wiseRI[facility] [address] [place] [address], * LIVER PRE EXTERNAL PANEL (08/27/2024 9:12 AM EST) Only the most recent of2 resultswithin the time period is included. Sodium 141 mmol/L [facility] Potassium 3.4 [facility] Chloride 112 [facility] Carbon Dioxide 23 [facility] Glucose 129 [facility] BUN 14 mg/dL [facility] Creatinine 0.61 mg/dL [facility] Calcium 8.4 mg/dL [facility] Total Protein 6.0 g/dL [facility] Albumin 3.0 g/dL [facility] Bilirubin, Total 7.8 mg/dL [facility] Alkaline Phosphatase 931 U/L [facility] AST 111 U/L [facility] ALT 100 U/L [facility] WBC 4.2 10*3/uL [facility] Hgb 12.1 [facility] Hematocrit 35.5 % [facility] Platelets 118 10*3/uL [facility] INR 1.20 [facility] 08/27/2024 9:12 AM EST us Yasmin Ho MD LAB BLOOD ORDERABLES Final R esult [facility] [address] [place] [address] * Microalbumin, Random Urine with Creatinine (04/26/2024 4:22 PM EDT) Microalbumin, Urine <2.0 mg/dL 04/26/2024 5:20 PM EDT [facility] CL[facility] PATH[facility] LAB[facility] Creatinine, Urine 69 15 - 278 mg/dL 04/26/2024 5:20 PM EDT [facility] CLINICAL PATHOLOGY LABORATORY Microalb/Creat Ratio, Random Urine 04/26/2024 5:20 PM EDT [facility] Comment: < 1.0 mcg/mgCr Microalbumin Reference Range: Normal ? <30 mcg/mg Creatinine Microalbuminuria ? 30-300 mcg/mg Creatinine Clinical Albuminuria >300 mcg/mg Creatinine Reference: ADA Guideline. Diabetes Care. 2004;27 (suppl 1) Urine Voided urine specimen / Unknown Non-Blood Collection / Unknown 04/26/2024 4:22 PM EDT 04/26/2024 4:35 PM EDT Natasha Kramer MD LAB URINE ORDERABLES Final Resul t Performing Organization Address [facility] Co de Phone Number [employer] [facility] CLINICAL PATHOLOGY LABORATORY [address] [place] [address], * POCT Glycosylated Hemoglobin (HGB A1C), interfaced (04/26/2024 2:32 PM EDT) Hemoglobin A1C, POCT 4.2 <=5.6 % 04/26/2024 2:40 PM EDT [facility] Comment: A1C Recommendation for Non- Adults with Diabetes: <7.0% ADA 2011 Standards of Medical Care in Diabetes Blood 04/26/2024 2:32 PM EDT 04/26/2024 2:40 PM EDT Natasha Kramer MD LAB POCT ORDERABLES - DEVICE Fin al Result Performing Organization Address [facility] Co de Phone Number [facility] [address] [place] [address], [place] * Hepatitis C Antibody w/Reflex to PCR (09/20/2023 12:40 PM EST) Hepatitis C Antibody NON-REACT VIVEK NON-REACT VIVEK 09/21/2023 6:41 AM EST [employer] [facility] Comment: HCV antibody was non-reactive. There is no laboratory evidence of HCV infection. In most cases, no further action is required. However, if recent HCV exposure is suspected, a test for HCV RNA (test code 85095) is suggested. For additional information please refer to http://education.[employer]Port Network/faq/LTT58o5 (This link is being provided for informational/ educational purposes only.) Blood Structure of peripheral vein / Unknown Venipuncture / Unknown 09/20/2023 12:40 PM EST 09/20/2023 1:07 PM EST Narrative [facility] - 09/21/2023 6:41 AM EST [facility] Received Date: Yasmin Ho MD LAB BLOOD ORDERABLES Final R esult [facility] [address] [facility] 3rd Floor, [place] [address], [employer] [facility] [address], [place] [address], [place] [phone] from Last 3 Months or Most Recently Relevant to Health Maintenance [place] [address] [id number] [facility] Advance Directives Documents on File Type Date Recorded Patient Paper Sorter Expl anation Health Care Proxy 10/26/2023 12:55 PM 10-10 Advance Directive 01/22/2014 12:00 AM Adva maru Care Directives Advance Directive 04/03/2010 12:00 AM luba Sandhu edical Dec Making (Adv.Dir) * Presumed Full Code (Latest Code Status on File) Date Activated Date Inactivated Comments 05/15/2024 12:15 PM 05/16/2024 2:39 AM Care Teams Electrical Integrator Relationship Specialty Start Date End Date Sammie Maharaj: [phone] [address] [place] [address] PCP - General Family Medicine 05/15/18
--- OUTSIDE RECORDS SUMMARY | 2024-11-05 14:53 | XMS_ITS | Encounter Summary ---
Author Organization [facility] Address [address] [facility] 7t [place] [address] Care Team Providers Care Project Management Professional Name Role Phone Prosperity, Sammie JOHNSON Primary Care Provider [phone] Loyda Glaser RN Unavailable [phone] Yasmin Ho MD Unavailable [phone] Encounter Details Date Type Department Care Team (Late st Contact Info) Description 12/01/2022 Orders Only [facility] MEDICINE [address] [place] [address] Ericka Osei MD [address] [place] [address] Visual problems (Primary Dx) Social History Tobacco Use Types Packs/Day Years Used Date Smoking Tobacco: Never Assessed Comments Unknown Sex and Gender Information Value Date Recorded Sex Assigned at Female 08/09/2022 10:18 AM EDT Legal Sex Female 10:18 AM EDT Gender Identity Female 08/09/2022 10:18 AM EDT Sexual Orientation Straight 08/09/2022 10 :18 AM EDT documented as of this encounter Plan of Treatment Upcoming Encounters Date Type Department Care Team (Late st Contact Info) Description 02/25/2025 9:00 AM EDT Office Visit [facility] OPTOMETRY [address] [place], [place] [id number] Mckay, Darshana, OD [address] [place] [address] documented as of this encounter Visit Diagnoses Diagnosis Visual problems- Primary documented in this encounter Care Teams Project Management Professional Relationship Specialty Start Date End Date Prosperity, Sammie, MD [address] [place] [address] PCP - General Family Medicine 10/10/18 Loyda Glaser, RN [address] [place] [address] Personal Lines Account Manager Family Medicine 10/31/23 Yasmin Ho MD [address] [place] [address] Gastroenterology 08/29/24 Manuel Carpenter PA [facility] [address] [facility] [address] Neurology 08/29/24 Paola Tolentino, MEDICAL FIELD REPRESENTATIVE [address] [address] Endocrinology 10/24/24 documented as of this encounter
--- OUTSIDE RECORDS SUMMARY | 2024-11-05 14:53 | XMS_ITS | Encounter Summary ---
Demographics Address [address] [facility] [address] [place] [address] Home Phone Mobile Phone Preferred Language Surinamese; Castilian Marital Status Single Oriental Orthodox Affiliation Unknown Race Unknown Ethnic Group Unknown Author Organization [facility] Address [address] [place] [address] Support Name Relationship Address Phone Orion Rubio Daughter [address] [facility] [address] [place] [address] Care Team Providers Care Client Sales And Service Officer Name Role Phone Sammie Maharaj Primary Care Provider [phone] Encounter Details Date Type Department Care Team (Late st Contact Info) Description 09/12/2024 Orders Only [facility] Interventional Radiology [address] [place] [address] Eugene Warren MD [address] [place] [address] Social History Tobacco Use Types Packs/Day Years [...] Description 11/14/2024 8:00 AM EST Office Visit [facility] Building Diabetes Clinic [address] [place] [address] Diesel Powerplant Mechanic Helper: Paola Vance NP [address] [facility] [place] [address] 01/08/2025 8:00 AM EDT Follow-Up [facility] Liver Transplant Services [address] [place] [address] Yasmin Ho MD [address] [place] [address] 08/06/2025 8:00 AM EDT Office Visit [facility] Building Neurology Clinic [address] [place] [address] Manuel Carpenter PA [address] [place] [address] documented as of this encounter Visit Diagnoses Not on filedocumented in this encounter Care Teams Client Sales And Service Officer Relationship Specialty Start Date End Date NickoSammie thompson [address] [place] [address] PCP - General Family Medicine 05/15/18 documented as of this encounter
--- OUTSIDE RECORDS SUMMARY | 2024-11-05 14:53 | XMS_ITS | Encounter Summary ---
Author Organization [facility] [facility] Address [address] [facility] 7t [place] [address] Care Team Providers Care Wire Temperer Name Role Phone Sammie Maharaj MD Primary Care Provider Loyda Glaser RN Unavailable [phone] Yasmin Ho MD Unavailable [phone] Encounter Details Date Type Department Care Team (Late Contact Info) Description 05/16/2023 Orders Only [facility] PEDS [address] [place] [address] Emily Marcial LPN Social History Tobacco Use Types Packs/Day Years Used Date Smoking Tobacco: Never Smokeless Tobacco: Never Comments Unknown Sex and Gender Information Value Date Recorded Sex Assigned at Female 08/09/2022 10:18 AM EDT Legal Sex Female 10:18 AM EDT Gender Identity Female 08/09/2022 10:18 AM EDT Sexual Orientation Straight 08/09/2022 10 :18 AM EDT documented as of this encounter Plan of Treatment Upcoming Encounters Date Type Department Care Team (Late Contact Info) Description 02/25/2025 9:00 AM EDT Office Visit [facility] OPTOMETRY [address] [place] [address] Darshana Bashir, OD [address] [place], [place] [phone] documented as of this encounter Visit Diagnoses Not on filedocumented in this encounter Care Teams Wire Temperer Relationship Specialty Start Date End Date Sammie Maharaj MD [address] [place] [address] PCP - General Family Medicine 10/10/18 Loyda Glaser, RN [address] [place] [address] Shaker Repairer Family Medicine 10/31/23 Yasmin Ho MD [address] [place] [address] Gastroenterology 08/29/24 Manuel Carpenter PA [facility] [address] [facility] [address] Neurology 08/29/24 Paola Tolentino, CUSTOMER SERVICE REPRESENTATIVE TELLER [address] [address] Endocrinology 10/24/24 documented as of this encounter
--- OUTSIDE RECORDS SUMMARY | 2024-11-05 14:53 | XMS_ITS | Encounter Summary ---
Author Organization [employer] Address [address] [facility] 7t [place] [address] Care Team Providers Care Academic Affairs Assistant Name Role Phone [place], Sammie JOHNSON Primary Care Provider [phone]- [phone] Loyda Glaser RN Unavailable [phone] Yasmin Ho MD Unavailable Reason for Visit * Reason Onset Date Comments No Show 04/21/2023 Encounter Details Date Type Department Care Team (Late st Contact Info) Description 04/21/2023 Telephone [facility] MEDICINE [address] [place] [address] Hansa Chung RN [address] [place] [address] No Show Social History Tobacco Use Types Packs/Day Years [...] Miscellaneous Notes * Telephone Encounter - Olga Hansen RN - 04/21/2023 1:18 PM EDT Spoke with patient through her sister in law with consent. Pt notified of elevated blood sugar results. Pt reports she has been taking her prescribed Lantus as ordered every night. Pt reports she hada coffee this morning with real sugar and thinks that may have been why her blood sugar was elevated. Pt prompted to re-check her sugar while we were on the [place] and reports My machine is broken, itis just saying HI. Pt re-checked her sugar once more and got a reading of 498. Pt reports feeling excessively tired. Pt offered an appointment for tomorrow and declined as she is traveling to [facility] tomorrow morning and whill not be back until 04/28. Pt advised to go to the ED, unsure whether she will or not. Appotintment made for 04/29 at 1130 for a follow up after her return. Pt advised to follow a diabetic diet and take her medications as prescribed, and go directly to the ED for furtherevaluation. Pt verbalized understanding of this and has no further questions or concerns. * Telephone Encounter - Hansa Chung RN - 04/21/2023 12:30 PM EDT Call received from [facility], regarding critical lab result. Pt glucose this morning was 545. Confirmed and restated. Will notify walk in where she was seen this morning to follow up. Call to walk in center, spoke to Roberta. Will also task note for reference. documented in this encounter Plan of Treatment Upcoming Encounters Date Type Department Care Team (Late st Contact Info) Description 02/25/2025 9:00 AM EDT Office Visit [facility] OPTOMETRY [address] [place] [address] Darshana Bashir, OD [address] [place] [address] documented as of this encounter Visit Diagnoses Not on filedocumented in this encounter Care Teams Academic Affairs Assistant Relationship Specialty Start Date End Date Sammie Maharaj MD 230 [place] [address] PCP - General Family Medicine 10/10/18 Loyda Glaser, ERVIN 230 [place] [address] Molder Setter Family Medicine 10/31/23 Yasmin Ho MD [address] [place] [address] Gastroenterology 08/29/24 Manuel Carpenter PA [address] [address] Neurology 08/29/24 Paola Tolentino, ONLINE SERVICES MANAGER [address] [address] Endocrinology 10/24/24 documented as of this encounter
--- OUTSIDE RECORDS SUMMARY | 2024-11-05 14:53 | XMS_ITS | Encounter Summary ---
Demographics Address [address] [facility] [address] [place] [address] Home Phone Mobile Phone Preferred Language Irish; Castilian Marital Status Single Alevism Affiliation Unknown Race Unknown Ethnic Group Unknown Author Organization [facility] Address [address] [place] [address] Support Name Relationship Address Phone Orion Rubio Daughter [address] [facility] [address] [place] [address] Care Team Providers Care Medical Record Coder Name Role Phone Sammie Maharaj Primary Care Provider [phone] Reason for Visit * Reason Comments Med Refill Encounter Details Date Type Department Care Team (Late st Contact Info) Description 10/24/2024 Refill [facility] Liver Transplant Services [address] [place] [address] Yasmin Ho MD 55 [place] [address] Social History Tobacco Use Types Packs/Day Years [...] 11/14/2024 8:00 AM EST Office Visit [facility] Building Diabetes Clinic [address] [place] [address] Building Equipment Operator: Paola Vance NP [address] [place] [address] [place] [address] 01/08/2025 8:00 AM EDT Follow-Up [facility] Liver Transplant Services [address] [place] [address] Yasmin Ho MD [address] [place] [address] 08/06/2025 8:00 AM EDT Office Visit [facility] Building Neurology Clinic [address] [place] [address] Manuel Carpenter PA [address] [place] [address] documented as of this encounter Visit Diagnoses Not on filedocumented in this encounter Care Teams Medical Record Coder Relationship Specialty Start Date End Date [place]amm[place] thom[place] [address] [place] [address] PCP - General Family Medicine 05/15/18 documented as of this encounter
--- OUTSIDE RECORDS SUMMARY | 2024-11-05 14:53 | XMS_ITS | Encounter Summary ---
Author Organization [employer] [facility] Address [address] [facility] 7t [place] [address] Care Team Providers Care Manager Credit Collections Name Role Phone Sammie Maharaj MD Primary Care Provider [phone]- [phone] Loyda Glaser RN Unavailable [phone] Yasmin Ho MD Unavailable Reason for Referral * Consultation (Routine) - Closed Specialty Diagnoses / Procedures Referred By Edu danielson Referred To Contact Optometry Diagnoses Type 2 diabetes mellitus with hyperglycemia, with long-term current use of insulin (CMS/HCC) Sammie Maharaj MD [address] [place], [place] Phone: tel: fax: [facility] OPTOMETRY [address] [place] [address] Phone: tel: fax: Referral ID Status Reason Start Date Expiration Date V isits Requested Visits Authorized [id number] Closed Consult and Treat 11/02/2024 11/02/2025 1 1 Reason for Visit * Consultation (Routine) - Authorized Specialty Diagnoses / Procedures Referred By Edu danielson Referred To Contact Pharmacy Diagnoses Complex partial seizure (CMS/HCC) End stage liver disease (CMS/HCC) Type 2 diabetes mellitus with hyperglycemia, with long-term current use of insulin (CMS/HCC) Complex care coordination Sammie Maharaj MD [address] [place], [place] Phone: tel: fax: Referral ID Status Reason Start Date Expiration Date Visits Requested Visits Authorized [id number] Authorized Continuity of Care 10/24/2024 10/24/2025 6 6 Encounter Details Date Type Department Care Team (Latest Contact Info) Description 11/02/2024 9:00 AM EST Clinical Support [facility] MED[facility]INE [address] [place] [address] Laya Horan, PharmD [address] [place] [address] Type 2 diabetes mellitus with hyperglycemia, with long-term current use of insulin (CMS/HCC) (Primary Dx); Complex partial seizure (CMS/HCC); End stage liver disease (CMS/HCC) Social History Tobacco Use Types Packs/Day Years Used Date Smoking Tobacco: Never Smokeless Tobacco: Never Depression Answer Date Recorded Patient Health Questionnaire-9 Score 0 10/24/2024 Patient Health Questionnaire-9 Score 0 10/24/2024 Last PHQ-9: Questionnaire Data Not on file 0 10/24/2024 Housing Stability Answer Date Recorded What is your housing situation today? I have concepcion marie 10/24/[address] you li ve. Do you have problems with any of the following? None of the above 10/24/2024 Food Insecurity Answer Date Recorded Within the past 12 months, y ou worried that your food would run out before you got money to buy more: Never True 10/24/2024 Within the past 12 months,th e food you bought just didn't last and you didn't have enough money to get more: Never True Transportation Answer Date Recorded In the past 12 months, has l ack of transportation kept you from medical appts, meetings, work or from getting things needed for daily living? No 10/24/2024 Utilities Answer Date Recorded In the past 12 months, has t he electric, gas, oil or water company threatened to shut off services in your home? No 10/24/2024 Depression Answer Date Recorded Patient Health Questionnaire-2 Score 0 10/24/2024 Internet Access Answer Date Recorded Internet Access Q1 No 10/24/2024 Internet Access Q2 I do not want or need it 10/10 Comments Unknown Sex and Gender Information Value [...] [facility] [address] [place] [address] Mckay, Darshana, OD [address] [place] [address] Scheduled Referrals Name Type Priority Associated Diagnoses Orde r Schedule Referral to [facility] Eye Care Outpatient Referral Routine Type 2 diabetes mellitus with hyperglycemia, with long-term current use of insulin (CMS/HCC) Expected: 11/02/2024 (Approximate), Expires: 11/02/2025 documented as of this encounter Visit Diagnoses Diagnosis Type 2 diabetes mellitus with hyperglycemia, with long-term current use of insulin (CMS/HCC)- Primary Complex partial seizure (CMS/HCC) End stage liver disease (CMS/HCC) documented in this encounter Additional Health Concerns Assessment Noted Time PHQ-9 Depression Total Score: 0 10/24/19 25 9:33 AM EST documented as of this encounter Care Teams Manager Credit Collections Relationship Specialty Start Date End Date Sammie Maharaj MD [address] [place] [address] PCP - General Family Medicine 10/10/18 Loyda Glaser RN [address] [place] [address] Pie Bottomer Family Medicine 10/31/23 Yasmin Ho MD [address] [place] [address] Gastroenterology 08/29/24 Manuel Carpenter PA [address] [address] Neurology 08/29/24 Paola Tolentino, MOBILE SECURITY ARCHITECT [place] [address] Endocrinology 10/24/24 documented as of this encounter
--- OUTSIDE RECORDS SUMMARY | 2024-11-05 14:53 | XMS_ITS | Encounter Summary ---
Author Organization [employer] [facility] Address [address] 7[address] [place] [address] Care Team Providers Care Clinical Documentation Nurse Name Role Phone Sammie Maharaj MD Primary Care Provider [phone]- [phone] Loyda Glaser RN Unavailable [phone] Yasmin Ho MD Unavailable Reason for Visit * Reason Onset Date Comments Referral 12/01/2022 Encounter Details Date Type Department Care Team (Late st Contact Info) Description 12/01/2022 Telephone [facility] [address] [place] [address] Sammie Maharaj MD [address] [place], [place] [id number] Referral Social History Tobacco Use Types Packs/Day Years Used Date Smoking Tobacco: Never Assessed Comments Unknown Sex and Gender Information Value Date Recorded Sex Assigned at Female 08/09/2022 10:18 AM EDT Legal Sex Female 10:18 AM EDT Gender Identity Female 08/09/2022 10:18 AM EDT Sexual Orientation Straight 08/09/2022 10 :18 AM EDT documented as of this encounter Miscellaneous Notes * Telephone Encounter - Ericka Osei MD - 12/01/2022 5:35 PM EST Referral to vision center done * Telephone Encounter - Tobias Cortes - 12/01/2022 11:11 AM EST Tc from [facility] Nurse requesting a Vision referral for pt for the [facility]. Please contact pt at [phone] or [facility] [phone] documented in this encounter Plan of Treatment Upcoming Encounters Date Type Department Care Team (Late st Contact Info) Description 02/25/2025 9:00 AM EDT Office Visit [facility] OPTOM[facility] [address] [place], [place] [id number] Darshana Bashir, OD [address] [place] [address] documented as of this encounter Visit Diagnoses Not on filedocumented in this encounter Care Teams Clinical Documentation Nurse Relationship Specialty Start Date End Date Sammie Maharaj MD 230 [place] [address] PCP - General Family Medicine 10/10/18 Loyda Glaser, ERVIN [address] [place] [address] Mixing Machine Operator Family Medicine 10/31/23 Yasmin Ho MD [address] [place] [address] Gastroenterology 08/29/24 Manuel Carpenter PA [address] [address] Neurology 08/29/24 Paola Tolentino NP [address] [address] Endocrinology 10/24/24 documented as of this encounter
--- OUTSIDE RECORDS SUMMARY | 2024-11-05 14:53 | XMS_ITS | Encounter Summary ---
Author Organization [facility] Address [address] [place] [address] 7t [place] [address] Care Team Providers Care Dancing Teacher Name Role Phone Sammie Maharaj MD Primary Care Provider [phone]- [phone] Loyda Glaser RN Unavailable [phone] Yasmin Ho MD Unavailable [phone] Encounter Details Date Type Department Care Team (Late st Contact Info) Description 11/11/2022 Abstract [facility] MEDICINE [address] [place] [address] Sammie Maharaj MD [address] [place] [address] Social History Tobacco Use Types Packs/Day Years [...] Description 02/25/2025 9:00 AM EDT Office Visit [facility] OPTOMETRY [address] [place], [place] [id number] Darshana Bashir OD [address] [place] [address] documented as of this encounter Procedures Procedure Name Priority Date/Time Associated Diagnosis Comments PAP SMEAR Routine 03/25/2021 12:00 AM EDT documented in this encounter Results * Pap Smear (03/25/2021 12:00 AM EDT) Swab us Historical Provider LAB CYTOLOGY ORDERABLES F inal Result IMAGING documented in this encounter Visit Diagnoses Not on filedocumented in this encounter Care Teams Dancing Teacher Relationship Specialty Start Date End Date Sammie Maharaj MD [address] [place] [address] PCP - General Family Medicine 10/10/18 Loyda Glaser RN [address] [place] [address] Acid Adjuster Family Medicine 10/31/23 Yasmin Ho MD [address] [place] [address] Gastroenterology 08/29/24 Manuel Carpenter PA [facility] [address] [facility] [address] Neurology 08/29/24 Paola Tolentino, HEBERT [address] [address] Endocrinology 10/24/24 documented as of this encounter
--- OUTSIDE RECORDS SUMMARY | 2024-11-05 14:54 | XMS_ITS | Encounter Summary ---
Author Organization [employer] Address [address] [facility] [address]t [place] [address] Care Team Providers Care Crisis Therapist Name Role Phone Sammie Maharaj MD Primary Care Provider [phone]- [phone] Loyda Glaser RN Unavailable [phone] Yasmin Ho MD Unavailable [phone] Encounter Details Date Type Department Care Team (Latest Contact Info) Description 10/24/2024 Travel Social History Tobacco Use Types Packs/Day Years Used Date Smoking Tobacco: Never Smokeless Tobacco: Never Depression Answer Date Recorded Patient Health Questionnaire-9 Score 0 10/24/2024 Patient Health Questionnaire-9 Score 0 10/24/2024 Last PHQ-9: Questionnaire Data Not on file 0 10/24/2024 Housing Stability Answer Date Recorded What is your housing situation today? I have concepcionrupal marie 10/24/[address] you [...] EDT Office Visit [facility] OPTOM[facility] [address] [place] [address] Darshana Bashir, OD [address] [place] [address] documented as of this encounter Visit Diagnoses Not on filedocumented in this encounter Additional Health Concerns Assessment Noted Time PHQ-9 Depression Total Score: 0 10/24/19 25 9:33 AM EST documented as of this encounter Care Teams Crisis Therapist Relationship Specialty Start Date End Date Sammie Maharaj MD [address] [place] [address] PCP - General Family Medicine 10/10/18 Loyda Glaser, ERVNI [address] [place] [address] Section Plotter Operator Family Medicine 10/31/23 Yasmin Ho MD [address] [place] [address] Gastroenterology 08/29/24 Manuel Carpenter PA [facility] [address] [facility] [address] Neurology 08/29/24 Paola Tolentino NP [address] [address] Endocrinology 10/24/24 documented as of this encounter
--- OUTSIDE RECORDS SUMMARY | 2024-11-05 14:54 | XMS_ITS | Encounter Summary ---
Demographics Address [address] [facility] [address] [place] [address] Home Phone Mobile Phone Preferred Language Chilean; Castilian Marital Status Single Latter-Day Affiliation Unknown Race Unknown Ethnic Group Unknown Author Organization [facility] Address [address] [place] [address] Support Name Relationship Address Phone Orion Rubio Daughter [address] [facility] [address] [place] [address] Care Team Providers Care Senior Payroll Specialist Name Role Phone Sammie Maharaj Sujit Primary Care Provider [phone] Encounter Details Date Type Department Care Team (Late st Contact Info) Description 12/14/2023 Orders Only [facility] Interventional Radiology [address] [place] [address] Smith Manzo, [address] [place] [address] Social History Tobacco Use Types Packs/Day Years [...] Description 11/14/2024 8:00 AM EST Office Visit [facility] Building Diabetes Clinic [address] [place] [address] Humane Officer: Paola Vance GREETER [address] [facility] [place] [address] 01/08/2025 8:00 AM EDT Follow-Up [facility] Liver Transplant Services [address] [place] [address] Yasmin Ho MD [address] [place] [address] 08/06/2025 8:00 AM EDT Office Visit [facility] Building Neurology Clinic [address] [place] [address] Manuel Carpenter PA [address] [place] [address] documented as of this encounter Visit Diagnoses Not on filedocumented in this encounter Care Teams Senior Payroll Specialist Relationship Specialty Start Date End Date Sammie Maharaj [address] [place] [address] PCP - General Family Medicine 05/15/18 documented as of this encounter
--- OUTSIDE RECORDS SUMMARY | 2024-11-05 14:54 | XMS_ITS | Clinical Summary ---
Author Organization [employer] Address [address] [place] [address] [address] [place] [address] Care Team Providers Care Operations Clerk Name Role Phone NickoSammie thompson MD Primary Care Provider [phone] Loyda Glaser RN Unavailable [phone] Yasmin Ho MD Unavailable [phone] Allergies Active Allergy Reactions Criticality Noted Date Comments Acetaminophen 09/09/2014 Other reaction(s): Rash Latex Rash Low 06/29/2023 Medications insulin glargine (Lantus SoloStar) 100 UNIT/ML penIndications :Uncontrolled type 2 diabetes mellitus with hyperglycemia, with long-term current use of insulin (CMS/HCC) Inject 18 Units under the skin at bedtime. 15 mL 3 01/18/20 24 Active zonisamide (Zonegran) 100 MG capsuleIndicat ions:Complex partial seizure (CMS/HCC) Take 100 mg by mouth Once per day. Two tab po qhs Active ursodiol (Actigall) 250 MG tablet Take 1 tablet by mouth 3 times daily. 10/19/19 25 Active beta carotene (vitamin A) 3 MG (17948 UT) capsule Take 1 capsule by mouth Once per day. 10/24/19 25 Active lactulose (Chronulac) 10 GM/15ML solution Take 20 g by mouth 3 times daily. Patient reported Active ursodiol (Actigall) 250 MG tablet TAKE 1 TABLET (250 MG TOTAL) BY MOUTH 3 TIMES A DAY. 04/11/20 23 10/09/ 024 Discontinued(Du plicate order (will not trigger notification to Pharmacy)) sennosides (Senokot) 8.6 MG tablet Take 1-2 tablets by mouth. 024 Discontinued(Du plicate order (will not trigger notification to Pharmacy)) aspirin 81 MG EC tablet 81 mg. 024 Discontinued(Du plicate order (will not trigger notification to Pharmacy)) zonisamide (Zonegran) 100 MG capsule Take 200 mg by mouth at bed time. 08/19/20 23 024 Discontinued(Du plicate order (will not trigger notification to Pharmacy)) Blood Glucose Monitoring Suppl (FreeStyle Lite) w/Device kitIndications :Type 2 diabetes mellitus with hyperglycemia, unspecified whether fci insulin use ([facility]) 1 each 3 times daily. Use to check blood sugar 3 times daily 1 kit 10/14/19 24 025 Discontinued(Du plicate order (will not trigger notification to Pharmacy)) FreeStyle lancetsIndicat ions:Type 2 diabetes mellitus with hyperglycemia, unspecified whether fci insulin use ([facility]) 1 each by Other route 3 times daily. Test blood sugar 3 times a day 100 each 10/14/19 24 025 Continuous Blood Gluc Conche Operator (FreeStyle [place] 2 Stark) deviceIndicati ons:Type 2 diabetes mellitus with hyperglycemia, unspecified whether polysomnographic technician insulin use ([facility]) Scan sensor every 8 hours 1 each 10/14/19 24 025 Discontinued(Du plicate order (will not trigger notification to Pharmacy)) Continuous Blood Gluc Sensor (FreeStyle [place] 2 Sensor) miscIndication s:Type 2 diabetes mellitus with hyperglycemia, unspecified whether polysomnographic technician insulin use ([facility]) Apply 1 sensor every 14 days 2 each 10/14/19 24 025 Discontinued(Du plicate order (will not trigger notification to Pharmacy)) glucose blood (FreeStyle Precision Bob Test) test stripIndicatio ns:Type 2 diabetes mellitus with hyperglycemia, unspecified whether fci insulin use ([facility]) Use to test blood sugar 3 times daily 100 each 12 10/14/19 24 025 Discontinued(Du plicate order (will not trigger notification to Pharmacy)) metoprolol tartrate (Lopressor) 50 MG tablet TAKE 1 TABLET BY MOUTH 12 HOURS PRIOR TO EXAM AND 1 TABLET BY MOUTH 1 HOUR PRIOR TO EXAM. 11/03/19 24 024 Discontinued(Du plicate order (will not trigger notification to Pharmacy)) glucose blood (FreeStyle Precision Bob Test) test stripIndicatio ns:Type 2 diabetes mellitus with hyperglycemia, unspecified whether fci insulin use ([facility]) TEST BLOOD SUGAR THREE TIMES DAILY WHEN freestyle CHANGE EVERY 14 DAYS sensors fail 100 each 11 02/19/20 24 025 Discontinued(Du plicate order (will not trigger notification to Pharmacy)) ferrous gluconate (Fergon) 324 (38 Fe) MG tabletIndicati ons:Microcytic anemia TAKE 1 TABLET BY MOUTH TWICE A DAY 180 tablet 07/24/20 24 025 Discontinued BD Pen Needle Sandy 2nd Gen 32G X 4 MM miscIndication s:Type 2 diabetes mellitus with hyperglycemia, with long-term current use of insulin ([facility]) TO ADMINISTER INSULIN NIGHTLY 100 each 3 08/17/20 24 025 Discontinued(Du plicate order (will not trigger notification to Pharmacy)) ciclopirox (Penlac) 8 % solutionIndica tions:Tinea unguium APPLY TOPICALLY AT BEDTIME. APPLY TO AFFECTED NAILS 6.6 mL 09/26/20 24 025 Discontinued(Me d list cleanup (will not trigger notification to Pharmacy)) ursodiol (Actigall) 300 MG capsuleIndicat ions:End stage liver disease ([facility]) Take 300 mg by mouth 2 times daily. 025 Discontinued(Me d list cleanup (will not trigger notification to Pharmacy)) Active Problems Patient Care Coordination No te Formatting of this note migh t be different from the original. [facility] provider line [phone], called 09/29/23 Breanna Burleson [phone]. cell [phone] [employer] services via [employer] Problem Noted Date Diagnosed Date Chronic right shoulder pain 07/09/2024 Overview (07/09/2024): Pt reports pain with movement and sleeping on right shoulder. -ordered XR of R shoulder 07/09/25 -referred to PT 07/09/25 Assessment & Plan (07/09/2024 10:22 AM EDT): Pt reports pain with movement and sleeping on right shoulder. -ordered XR of R shoulder 07/09/25 -referred to PT 07/09/[address] of the abdomen 02/23/2024 Overview (06/01/2024): CT abd pelvis ordered by [facility] liver [facility] and dated 01/28/24 IMPRESSION: 1. A 1.3 cm arterial hyperenhancing observation in hepatic segment 8 without washout or enhancing pseudocapsule, LI-RADS 3, intermediate probability of malignancy. Recommend 3-6 month follow-up MR liver protocol. 2. Subtle nodularity of the hepatic contour compatible with cirrhosis. Sequelae of portal hypertension including splenomegaly, varices, and trace ascites. 3. Cholelithiasis without evidence of acute cholecystitis. 4. Pericardiophrenic lymphadenopathy, which does not appear significantly changed from 2021, possibly reactive. [facility] not from 02/24/24 Telephone Encounter - Katy Boateng RN 10:24 AM LVM for patient using pasteurizer, Ari [id number], about results of MRI and scheduling of a follow up MRI in 3 months for surveillance. MRI 05/23/24 MR/MR abdomen wo/w con IMPRESSION: Unchanged Hepatic cirrhosis with periportal edema, portal venous hypertension, extensive varices. Interval resolution of the right hepatic lobe segment 8 of the lesion with arterial phase hyperenhancement. No suspicious hepatic observation could be seen on the current examination. Unchanged marked Cholelithiasis. Unchanged right hepatic lobe segment 7 intrahepatic biliary ductal rotation. No interval change in position of intrahepatic portosystemic shunt. Interval increase in splenomegaly. Unchanged right parasagittal and right anterior medial cardiophrenic enhancing lymph nodes. Assessment & Plan (10/24/2024 9:48 AM EST): CT abd pelvis ordered by [facility] liver [facility] and dated 01/28/24 IMPRESSION: 1. A 1.3 cm arterial hyperenhancing observation in hepatic segment 8 without washout or enhancing pseudocapsule, LI-RADS 3, intermediate probability of malignancy. Recommend 3-6 month follow-up MR liver protocol. 2. Subtle nodularity of the hepatic contour compatible with cirrhosis. Sequelae of portal hypertension including splenomegaly, varices, and trace ascites. 3. Cholelithiasis without evidence of acute cholecystitis. 4. Pericardiophrenic lymphadenopathy, which does not appear significantly changed from 2021, possibly reactive. [facility] not from 02/24/24 Telephone Encounter - Katy Boateng RN 10:24 AM LVM for patient using pasteurizer, [id number] [id number], about results of MRI and scheduling of a follow up MRI in 3 months for surveillance. MRI 05/23/24 MR/MR abdomen wo/w con IMPRESSION: Unchanged Hepatic cirrhosis with periportal edema, portal venous hypertension, extensive varices. Interval resolution of the right hepatic lobe segment 8 of the lesion with arterial phase hyperenhancement. No suspicious hepatic observation could be seen on the current examination. Unchanged marked Cholelithiasis. Unchanged right hepatic lobe segment 7 intrahepatic biliary ductal rotation. No interval change in position of intrahepatic portosystemic shunt. Interval increase in splenomegaly. Unchanged right parasagittal and right anterior medial cardiophrenic enhancing lymph nodes. Assessment & Plan (07/09/2024 10:23 AM EDT): CT abd pelvis ordered by [facility] liver clinic and dated 01/28/24 IMPRESSION: 1. A 1.3 cm arterial hyperenhancing observation in hepatic segment 8 without washout or enhancing pseudocapsule, LI-RADS 3, intermediate probability of malignancy. Recommend 3-6 month follow-up MR liver protocol. 2. Subtle nodularity of the hepatic contour compatible with cirrhosis. Sequelae of portal hypertension including splenomegaly, varices, and trace ascites. 3. Cholelithiasis without evidence of acute cholecystitis. 4. Pericardiophrenic lymphadenopathy, which does not appear significantly changed from 2021, possibly reactive. [facility] not from 02/24/24 Telephone Encounter - Katy Boateng RN 10:24 AM LVM for patient using pasteurizer, [id number], about results of MRI and scheduling of a follow up MRI in 3 months for surveillance. MRI 05/23/24 MR/MR abdomen wo/w con IMPRESSION: Unchanged Hepatic cirrhosis with periportal edema, portal venous hypertension, extensive varices. Interval resolution of the right hepatic lobe segment 8 of the lesion with arterial phase hyperenhancement. No suspicious hepatic observation could be seen on the current examination. Unchanged marked Cholelithiasis. Unchanged right hepatic lobe segment 7 intrahepatic biliary ductal rotation. No interval change in position of intrahepatic portosystemic shunt. Interval increase in splenomegaly. Unchanged right parasagittal and right anterior medial cardiophrenic enhancing lymph nodes. 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 I called [facility] provider line [phone], 09/29/23 and spoke to linda Burleson [phone]. He reported extensive hx of working it pt and she was on the waiting list for starvros. Her GAME ADVISOR will be Laxmi Mas her friend. 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 I called [facility] provider line [phone], 09/29/23 and spoke to linda Burleson [phone]. He reported extensive hx of working it pt and she was on the waiting list for starvros. Her GAME ADVISOR will be Laxmi Mas her friend. -She has been approved for GAME ADVISOR hours but have not started yet as of 01/18/2024 Pain in hand and fingers 09/29/2023 Overview (01/18/2024): -refer to occupational therapy 01/18/2024 Assessment & Plan (09/29/2023 11:55 AM EST): No etiology on exam. Pt high risk for dyupetryns. Recommend warm wraps and rest. Other specified health status 07/21/2023 Overview (07/09/2024): -next physical exam due after 07/09/25 -eye care facilitated by [facility] -dental home is [facility] -health care proxy paperwork given 10/20/23. Filed 9/30/24 Assessment & Plan (10/24/2024 9:48 AM EST): -next physical exam due after 07/09/25 -eye care facilitated by [facility] -dental home is [facility] -health care proxy paperwork given 10/20/23. Filed 07/09/24 Assessment & Plan (07/09/2024 10:17 AM EDT): -next physical exam due after 07/09/25 -eye care facilitated by [facility] -dental home is [facility] -health care proxy paperwork given 10/20/23. Filed 07/09/24 Assessment & Plan (01/18/2024 9:16 AM EDT): -next physical exam due after 07/28/2024 -eye care facilitated by [facility] -dental home is none -health care proxy paperwork given 10/20/23 Assessment & Plan (10/20/2023 9:33 AM EST): -next physical exam due after 07/28/2024 -eye care facilitated by [facility] referral placed 09/29/23 -dental home is none -health care proxy paperwork given 10/20/23 Assessment & Plan (09/29/2023 11:46 AM EST): -next physical exam due after 07/28/2024 -eye care facilitated by [facility] referral placed 09/29/23 -dental home is none Assessment & Plan (07/28/2023 10:05 AM EDT): -next physical exam due after 07/28/2024 -eye care facilitated by [facility] -dental home is none Type 2 diabetes mellitus 11/19/2021 Overview (10/24/2024): -U Mass 02/21/2024 to see endocinology Diabetes are controlled. -CGM training done 10/20/23 Lab Results Component Value Date HGBA1C 4.6 07/09/2024 HGBA1C 4.3 01/18/2024 HGBA1C 7.6 (A) 10/28/2023 Lab Results Component Value Date CREATININE 0.61 08/27/2024 EGFR >60 08/27/2024 MICROALBCREU TNP 07/28/2023 LDLCHOLCAL 118 (H) 07/28/2023 -Manolo/Arb: none -Statin therapy: none -anjali exam done 10/24/24 -Diabetic eye exam: referral requested 09/29/23 -Diabetic foot exam: deferred since pt did not want to take her socks off, 07/09/25 -Continue lifestyle modifications -Continue current medications -Decrease Lantus insulin from 18-14 by endo 04/2024 Seen by [facility] endocrinology 04/18/24 Hemoglobin A1c is falsely low in the setting of liver disease, but CGM data suggests that her blood sugars are actually quite well-controlled, though with frequent fasting hypoglycemia. Thus, I have recommended decreasing her Lantus from 18 units nightly to 14 units nightly to reduce the risk of hypoglycemia. The patient tells me that she was diagnosed with type 1 diabetes, and she has been on insulin since diagnosis without any oral agents, though she is only on basal insulin and prandial insulin so I suspect that she actually has type 2 diabetes rather than type 1 diabetes. However, we will check a C-peptide level and pancreatic autoantibodies to screen for any evidence of insulin deficiency and/or pancreatic autoimmunity. We will also try to get approval for her to upgrade to the [employer] [place] 3 CGM. Assessment & Plan (10/24/2024 9:48 AM EST): -U Mass 02/21/2024 to see endocinology Diabetes are controlled. -CGM training done 10/20/23 Lab Results Component Value Date HGBA1C 4.6 07/09/2024 HGBA1C 4.3 01/18/2024 HGBA1C 7.6 (A) 10/28/2023 Lab Results Component Value Date CREATININE 0.61 08/27/2024 EGFR >60 08/27/2024 MICROALBCREU TNP 07/28/2023 LDLCHOLCAL 118 (H) 07/28/2023 -Manolo/Arb: none -Statin therapy: none -anjali exam done 10/24/24 -Diabetic eye exam: referral requested 09/29/23 -Diabetic foot exam: deferred since pt did not want to take her socks off, 07/09/25 -Continue lifestyle modifications -Continue current medications -Decrease Lantus insulin from 18-14 by endo 04/2024 Seen by [facility] endocrinology 04/18/24 Hemoglobin A1c is falsely low in the setting of liver disease, but CGM data suggests that her blood sugars are actually quite well-controlled, though with frequent fasting hypoglycemia. Thus, I have recommended decreasing her Lantus from 18 units nightly to 14 units nightly to reduce the risk of hypoglycemia. The patient tells me that she was diagnosed with type 1 diabetes, and she has been on insulin since diagnosis without any oral agents, though she is only on basal insulin and prandial insulin so I suspect that she actually has type 2 diabetes rather than type 1 diabetes. However, we will check a C-peptide level and pancreatic autoantibodies to screen for any evidence of insulin deficiency and/or pancreatic autoimmunity. We will also try to get approval for her to upgrade to the [employer] [place] 3 CGM. Assessment & Plan (07/09/2024 11:13 AM EDT): -U Mass 02/21/2024 to see endocinology Diabetes are controlled. -CGM training done 10/20/23 Lab Results Component Value Date HGBA1C 4.3 01/18/2024 HGBA1C 7.6 (A) 10/28/2023 HGBA1C 8.1 (A) 07/28/2023 Lab Results Component Value Date CREATININE 0.56 07/28/2023 EGFR >60 07/28/2023 MICROALBCREU TNP 07/28/2023 LDLCHOLCAL 118 (H) 07/28/2023 -Manolo/Arb: none -Statin therapy: none -Diabetic eye exam: referral requested 09/29/23 -Diabetic foot exam: deferred since pt did not want to take her socks off, 07/09/25 -Continue lifestyle modifications -Continue current medications -Decrease Lantus insulin from 18-14 by endo 04/2024 Seen by [facility] endocrinology 04/18/24 Hemoglobin A1c is falsely low in the setting of liver disease, but CGM data suggests that her blood sugars are actually quite well-controlled, though with frequent fasting hypoglycemia. Thus, I have recommended decreasing her Lantus from 18 units nightly to 14 units nightly to reduce the risk of hypoglycemia. The patient tells me that she was diagnosed with type 1 diabetes, and she has been on insulin since diagnosis without any oral agents, though she is only on basal insulin and prandial insulin so I suspect that she actually has type 2 diabetes rather than type 1 diabetes. However, we will check a C-peptide level and pancreatic autoantibodies to screen for any evidence of insulin deficiency and/or pancreatic autoimmunity. We will also try to get approval for her to upgrade to the [employer] [place] 3 CGM. Assessment & Plan (01/18/2024 9:24 AM EDT): -U Mass 02/21/2024 to see endourology Diabetes are controlled. -CGM training done 10/20/23 Lab Results Component Value Date HGBA1C 7.6 (A) 10/28/2023 HGBA1C 8.1 (A) 07/28/2023 HGBA1C 5.2 12/07/2021 - Lab Results Component Value Date MICROALBUR <5.0 07/28/2023 CREATININE 0.56 07/28/2023 -Manolo/Arb: none -Statin therapy: none -Diabetic eye exam: referral requested 09/29/23 -Diabetic foot exam: due -Continue lifestyle modifications -Continue current medications -Decrease Lantus insulin from 20 units to 18 units 01/18/2024 Assessment & Plan (10/20/2023 1:04 PM EST): Diabetes is not controlled. -CGM training done 10/20/23 Lab Results Component Value Date HGBA1C 8.1 (A) 07/28/2023 HGBA1C 5.2 12/07/2021 -No results found for: POCA1C - Lab Results Component Value Date MICROALBUR <5.0 07/28/2023 CREATININE 0.56 07/28/2023 -Manolo/Arb: none -Statin therapy: none -Diabetic eye exam: referral requested 09/29/23 -Diabetic foot exam: due -Continue lifestyle modifications -Continue current medications Assessment & Plan (09/29/2023 9:41 AM EST): Diabetes is controlled. - Lab Results Component Value Date HGBA1C 273.0 (A) 07/28/2023 HGBA1C 5.2 12/07/2021 -No results found for: POCA1C - Lab Results Component Value Date MICROALBUR <5.0 07/28/2023 CREATININE 0.56 07/28/2023 -Manolo/Arb: none -Statin therapy: none -Diabetic eye exam: referral requested 09/29/23 -Diabetic foot exam: due -Continue lifestyle modifications -Continue current medications Assessment & Plan (07/28/2023 8:58 AM EDT): Diabetes is controlled. 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 Etiology unclear. At times she has had a transient hepatitis B positive test, but that might have been passive after blood transfusion. Last HBV PCR January 2017 was negative. She is followed by [facility]. -liver biopsy 2019 mild, grade 4/18, stage 3/6, with focal nodular change -CT 3 phase 10/2023: hepatic cirrhosis with portosystemic collateral and splenomegaly, new observation in segment 8, continue follow up 3-6 months -seen by Liver Transplant clinic for consideration 09/20/23 in setting of progressive jaundice with mixed hyperbilirubinemia and worsening MELD score. -Seen byTransplant service psychiatrist Emory Sidhu MD on 11/09/23 with Laxmi present -Seen by transplant services with Dr. Yasmin oH MD of [facility] 02/2024, note reviewed: She remains active on LT waitlist currently, and we will update MELD score and AFP today (prior MELD 3.0 was 17). Etiology of recent worsening jaundice remains unclear. MRI/MRCP planned for 02/2024. May benefit from repeat liver biopsy with IgG4 staining (although normal IgG4 level) if MRCP unrevealing, but it is unclear that this would change current management. Possible some degree of hemolysis from TIPS contributing to indirect hyperbilirubinemia, but her Hb/Hct remains WNL. -continuation of empiric ursodiol therapy for now (currently ~14 mg/kg) given marked AP elevation and potential for AMA-negative PBC (although not supported by prior biopsy) or immune-mediated cholangiopathy. - referred for ongoing therapy by liver transplant clinic -liver profile, CBC, BMP, INR with AFP at least every 3 months Cirrhosis: Compensated: yes -MELD score: 12 (10/2019), 17 (2022), 19 (04/2024) -Dieretics: none, s/p TIPS -HCC screening: No evidence of HCC on CT 3-phase in October 2023, AFP normal in November 2023, MRI/MRCP pending 02/2024 -Variceal screening: TIPS appears patent on recent imaging; no recurrent GI bleeding events since TIPS -Ascites: No ascites on recent CT imaging, not currently on diuretic therapy, appears euvolemic on exam -Hepatic encephalopathy: Baseline mild cognitive deficits since CVA (stable), possible subclinical HE, recommended adding Miralax for persistent episodes of constipation despite 3 times a day lactulose dosing -Hx SBP: None -Hepatitis A/B status: Immune on updated serologies performed after visit -Transplant evaluation: Listed and active on LT waitlist -Low sodium diet discussed. Avoid hepatotoxic agents. -CT abd pelvis 01/28/24 IMPRESSION: 1. A 1.3 cm arterial hyperenhancing observation in hepatic segment 8 without washout or enhancing pseudocapsule, LI-RADS 3, intermediate probability of malignancy. Recommend 3-6 month follow-up MR liver protocol. 2. Subtle nodularity of the hepatic contour compatible with cirrhosis. Sequelae of portal hypertension including splenomegaly, varices, and trace ascites. 3. Cholelithiasis without evidence of acute cholecystitis. 4. Pericardiophrenic lymphadenopathy, which does not appear significantly changed from 2021, possibly reactive. -liver biopsy done at [facility] 05/01/24, results pending -liver biopsy results on 05/15/2024 showed cirrhosis of the liver with thickened fibrotic bands stage 4/4 -MR abdomen wo/w con 05/23/24 IMPRESSION: 1. Unchanged Hepatic cirrhosis with periportal edema, portal venous hypertension, extensive varices. 2. Interval resolution of the right hepatic lobe segment 8 of the lesion with arterial phase hyperenhancement. No suspicious hepatic observation could be seen on the current examination. 3. Unchanged marked Cholelithiasis. 4. Unchanged right hepatic lobe segment 7 intrahepatic biliary ductal rotation. 5. No interval change in position of intrahepatic portosystemic shunt. 6. Interval increase in splenomegaly. 7. Unchanged right parasagittal and right anterior medial cardiophrenic enhancing lymph nodes. - Saw Transplant Hepatology and GI specialist at [facility] on 09/11/24. Per note, she remains active on LT waitlist with an updated MELD 3.0 of 19 based on blood work in April 2024. Etiology of her liver disease and progressive jaundice remains unclear despite prior MRI/MRCP and interval liver biopsy in May 2024 which was non-specific with non-specific findings which we reviewed with patient and [id number] again today. We recommended continuation of empiric ursodiol therapy for now (currently ~14 mg/kg) given improvement after initiation and marked AP elevation and potential for AMA-negative PBC (although not supported by biopsy) or immune-mediated cholangiopathy. She has been doing well clinically, however, and she remains relatively independent with most of her ADLs. She has appeared more animated and interactive since her initial visits which is encouraging, but she would benefit from continue neurologic rehabilitation and consistent PT given reports of low energy levels. Assessment & Plan (10/24/2024 9:47 AM EST): On liver transplant list since December 2023. 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 Etiology unclear. At times she has had a transient hepatitis B positive test, but that might have been passive after blood transfusion. Last HBV PCR January 2017 was negative. She is followed by [facility]. -liver biopsy 2019 mild, grade 4/18, stage 3/6, with focal nodular change -CT 3 phase 10/2023: hepatic cirrhosis with portosystemic collateral and splenomegaly, new observation in segment 8, continue follow up 3-6 months -seen by Liver Transplant clinic for consideration 09/20/23 in setting of progressive jaundice with mixed hyperbilirubinemia and worsening MELD score. -Seen byTransplant service psychiatrist Emory Sidhu MD on 11/09/23 with Laxmi tapia -Seen by transplant services with Dr. Yasmin Ho MD of [facility] 02/2024, note reviewed: She remains active on LT waitlist currently, and we will update MELD score and AFP today (prior MELD 3.0 was 17). Etiology of recent worsening jaundice remains unclear. MRI/MRCP planned for 02/2024. May benefit from repeat liver biopsy with IgG4 staining (although normal IgG4 level) if MRCP unrevealing, but it is unclear that this would change current management. Possible some degree of hemolysis from TIPS contributing to indirect hyperbilirubinemia, but her Hb/Hct remains WNL. -continuation of empiric ursodiol therapy for now (currently ~14 mg/kg) given marked AP elevation and potential for AMA-negative PBC (although not supported by prior biopsy) or immune-mediated cholangiopathy. - referred for ongoing therapy by liver transplant clinic -liver profile, CBC, BMP, INR with AFP at least every 3 months Cirrhosis: Compensated: yes -MELD score: 12 (10/2019), 17 (2022), 19 (04/2024) -Dieretics: none, s/p TIPS -HCC screening: No evidence of HCC on CT 3-phase in October 2023, AFP normal in November 2023, MRI/MRCP pending 02/2024 -Variceal screening: TIPS appears patent on recent imaging; no recurrent GI bleeding events since TIPS -Ascites: No ascites on recent CT imaging, not currently on diuretic therapy, appears euvolemic on exam -Hepatic encephalopathy: Baseline mild cognitive deficits since CVA (stable), possible subclinical HE, recommended adding Miralax for persistent episodes of constipation despite 3 times a day lactulose dosing -Hx SBP: None -Hepatitis A/B status: Immune on updated serologies performed after visit -Transplant evaluation: Listed and active on LT waitlist -Low sodium diet discussed. Avoid hepatotoxic agents. -CT abd pelvis 01/28/24 IMPRESSION: 1. A 1.3 cm arterial hyperenhancing observation in hepatic segment 8 without washout or enhancing pseudocapsule, LI-RADS 3, intermediate probability of malignancy. Recommend 3-6 month follow-up MR liver protocol. 2. Subtle nodularity of the hepatic contour compatible with cirrhosis. Sequelae of portal hypertension including splenomegaly, varices, and trace ascites. 3. Cholelithiasis without evidence of acute cholecystitis. 4. Pericardiophrenic lymphadenopathy, which does not appear significantly changed from 2021, possibly reactive. -liver biopsy done at [facility] 05/01/24, results pending -liver biopsy results on 05/15/2024 showed cirrhosis of the liver with thickened fibrotic bands stage 4/4 -MR abdomen wo/w con 05/23/24 IMPRESSION: 1. Unchanged Hepatic cirrhosis with periportal edema, portal venous hypertension, extensive varices. 2. Interval resolution of the right hepatic lobe segment 8 of the lesion with arterial phase hyperenhancement. No suspicious hepatic observation could be seen on the current examination. 3. Unchanged marked Cholelithiasis. 4. Unchanged right hepatic lobe segment 7 intrahepatic biliary ductal rotation. 5. No interval change in position of intrahepatic portosystemic shunt. 6. Interval increase in splenomegaly. 7. Unchanged right parasagittal and right anterior medial cardiophrenic enhancing lymph nodes. - Saw Transplant Hepatology and GI specialist at [facility] on 09/11/24. Per note, she remains active on LT waitlist with an updated MELD 3.0 of 19 based on blood work in April 2024. Etiology of her liver disease and progressive jaundice remains unclear despite prior MRI/MRCP and interval liver biopsy in May 2024 which was non-specific with non-specific findings which we reviewed with patient and [id number] again today. We recommended continuation of empiric ursodiol therapy for now (currently ~14 mg/kg) given improvement after initiation and marked AP elevation and potential for AMA-negative PBC (although not supported by biopsy) or immune-mediated cholangiopathy. She has been doing well clinically, however, and she remains relatively independent with most of her ADLs. She has appeared more animated and interactive since her initial visits which is encouraging, but she would benefit from continue neurologic rehabilitation and consistent PT given reports of low energy levels. Assessment & Plan (07/09/2024 10:20 AM EDT): On liver transplant list since December 2023. 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 Etiology unclear. At times she has had a transient hepatitis B positive test, but that might have been passive after blood transfusion. Last HBV PCR January 2017 was negative. She is followed by [facility]. -liver biopsy 2019 mild, grade 4/18, stage 3/6, with focal nodular change -CT 3 phase 10/2023: hepatic cirrhosis with portosystemic collateral and splenomegaly, new observation in segment 8, continue follow up 3-6 months -seen by Liver Transplant clinic for consideration 09/20/23 in setting of progressive jaundice with mixed hyperbilirubinemia and worsening MELD score. -Seen byTransplant service psychiatrist Emory Sidhu MD on 11/09/23 with Laxmi tapia -Seen by transplant services with Dr. Yasmin Ho MD of [facility] 02/2024, note reviewed: She remains active on LT waitlist currently, and we will update MELD score and AFP today (prior MELD 3.0 was 17). Etiology of recent worsening jaundice remains unclear. MRI/MRCP planned for 02/2024. May benefit from repeat liver biopsy with IgG4 staining (although normal IgG4 level) if MRCP unrevealing, but it is unclear that this would change current management. Possible some degree of hemolysis from TIPS contributing to indirect hyperbilirubinemia, but her Hb/Hct remains WNL. -continuation of empiric ursodiol therapy for now (currently ~14 mg/kg) given marked AP elevation and potential for AMA-negative PBC (although not supported by prior biopsy) or immune-mediated cholangiopathy. - referred for ongoing therapy by liver transplant clinic -liver profile, CBC, BMP, INR with AFP at least every 3 months Cirrhosis: Compensated: yes -MELD score: 12 (10/2019), 17 (2022) -Dieretics: none, s/p TIPS -HCC screening: No evidence of HCC on CT 3-phase in October 2023, AFP normal in November 2023, MRI/MRCP pending 02/2024 -Variceal screening: TIPS appears patent on recent imaging; no recurrent GI bleeding events since TIPS -Ascites: No ascites on recent CT imaging, not currently on diuretic therapy, appears euvolemic on exam -Hepatic encephalopathy: Baseline mild cognitive deficits since CVA (stable), possible subclinical HE, recommended adding Miralax for persistent episodes of constipation despite 3 times a day lactulose dosing -Hx SBP: None -Hepatitis A/B status: Immune on updated serologies performed after visit -Transplant evaluation: Listed and active on LT waitlist -Low sodium diet discussed. Avoid hepatotoxic agents. CT abd pelvis 01/28/24 IMPRESSION: 1. A 1.3 cm arterial hyperenhancing observation in hepatic segment 8 without washout or enhancing pseudocapsule, LI-RADS 3, intermediate probability of malignancy. Recommend 3-6 month follow-up MR liver protocol. 2. Subtle nodularity of the hepatic contour compatible with cirrhosis. Sequelae of portal hypertension including splenomegaly, varices, and trace ascites. 3. Cholelithiasis without evidence of acute cholecystitis. 4. Pericardiophrenic lymphadenopathy, which does not appear significantly changed from 2021, possibly reactive. -liver biopsy done at [facility] 05/01/24, results pending -liver biopsy results on 05/15/2024 showed cirrhosis of the liver with thickened fibrotic bands stage 4/4 MR abdomen wo/w con 05/23/24 IMPRESSION: 1. Unchanged Hepatic cirrhosis with periportal edema, portal venous hypertension, extensive varices. 2. Interval resolution of the right hepatic lobe segment 8 of the lesion with arterial phase hyperenhancement. No suspicious hepatic observation could be seen on the current examination. 3. Unchanged marked Cholelithiasis. 4. Unchanged right hepatic lobe segment 7 intrahepatic biliary ductal rotation. 5. No interval change in position of intrahepatic portosystemic shunt. 6. Interval increase in splenomegaly. 7. Unchanged right parasagittal and right anterior medial cardiophrenic enhancing lymph nodes. 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 - Hx of three witnessed seizures, last requiring intubation. Sz hx: One while in hospital for stroke, one Sep 2015 and most recent Jun 2016. Seizure medication had been changed by neurology from gabapentin to Keppra February 2016 and changed to Zonisamide 200mg nightly 2019 Safety precautions discussed. No driving (she does not drive), baths or swimming. Awaiting new GAME ADVISOR provider. Daughter aware of how to call 911. Followed by neurologist, -followed by Dr. Jono Eden at [facility]. Next appointment 08/2024 -she self dc? d her aspirin. I recommended she called neurology to get refills on her medication -she has been seizure free with Zonisamide 200 mg nightly and ran out of supplies 6 months ago. I recommend to resume Zonisamide since her risk of recurrent seizure is over 60% due to her prior hemorrhagic stroke. -Saw Neurologist at [facility] 08/20/24, Plan: continue ZNS 200 mg daily and follow up in one year, or sooner if needed. 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 - Hx of three witnessed seizures, last requiring intubation. Sz hx: One while in hospital for stroke, one Sep 2015 and most recent Jun 2016. Seizure medication had been changed by neurology from gabapentin to Keppra February 2016 and changed to Zonisamide 200mg nightly 2019 Safety precautions discussed. No driving (she does not drive), baths or swimming. Awaiting new GAME ADVISOR provider. Daughter aware of how to call 911. Followed by neurologist, -followed by Dr. Jono Eden at [facility]. Next appointment 08/2024 -she self dc? d her aspirin. I recommended she called neurology to get refills on her medication -she has been seizure free with Zonisamide 200 mg nightly and ran out of supplies 6 months ago. I recommend to resume Zonisamide since her risk of recurrent seizure is over 60% due to her prior hemorrhagic stroke. -Saw Neurologist at [facility] 08/20/24, Plan: continue ZNS 200 mg daily and follow up in one year, or sooner if needed. -she has no idea if she is taking this. 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 - Hx of three witnessed seizures, last requiring intubation. Sz hx: One while in hospital for stroke, one Sep 2015 and most recent Jun 2016. Seizure medication had been changed by neurology from gabapentin to Keppra February 2016 and changed to Zonisamide 200mg nightly 2020 Safety precautions discussed. No driving (she does not drive), baths or swimming. Awaiting new GAME ADVISOR provider. Daughter aware of how to call 911. Followed by neurologist, -followed by Dr. Jono Eden at [facility]. Next appointment 08/2024 -she self dc? d her aspirin. I recommended she called neurology to get refills on her medication -she has been seizure free with Zonisamide 200 mg nightly and ran out of supplies 6 months ago. I recommend to resume Zonisamide since her risk of recurrent seizure is over 60% due to her prior hemorrhagic stroke. -Has follow up on Aug 20 at [facility] Assessment & Plan (10/20/2023 8:57 AM EST): Patient is a 40 year old woman [...] up in 1 year Assessment & Plan (07/28/2023 8:56 AM EDT): Patient is a 40 year [...] CMP with PCP Follow up in 1 yea Aphasia 02/20/2015 Overview (11/14/2023): -pt has expressive aphasia with a receptive component worsening since stroke. Referred to speech in the past but tid not follow through. 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 At times she has had a transient hepatitis B positive test, but that might have been passive after blood transfusion. Last HBV PCR January 2017 was negative. She is followed by [facility]. -liver biopsy 2019 mild, grade 4/18, stage 3/6, with focal nodular change -CT 3 phase 10/2023: hepatic cirrhosis with portosystemic collateral and splenomegaly, new observation in segment 8, continue follow up 3-6 months -seen by Liver Transplant clinic for consideration 09/20/23 in setting of progressive jaundice with mixed hyperbilirubinemia and worsening MELD score. CBC, BMP, and INR monthly with AFP 3-6 months. -Seen byTransplant service psychiatrist Emory Sidhu MD on 11/09/23 with Laxmi tapia -Seen by transplant services with Dr. Yasmin Ho MD of [facility] 12/12/2023, note reviewed Cirrhosis: -Compensated: Yes -Ascites: none -Dieretics: None. S/P TIPS -MELD score: 12. Calculated 10/2019. -Varices screening: No longer needed due to TIPS. Dr. Aguilera states pt no longer needs Nadolol -Hx encephalopathy: None, self discontinue lactulose -Hx SBP: None -HCC screening abdominal US Aug 2023 no evidence of HCC, no evidence on CT32 10/2023, AFP normal 11/2023 -Hep A and B immune -Low sodium diet discussed. Avoid hepatotoxic agents. -Followed by: [facility] -continue ursodiol therapy given marked AP elevation and potential for AMA negative PCB. -transplant candidacy will be determined by multidisciplinary transplant committee after all appropriate testing has been performed. 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 At times she has had a transient hepatitis B positive test, but that might have been passive after blood transfusion. Last HBV PCR January 2017 was negative. She is followed by [facility]. -seen by Liver Transplant clinic for consideration 09/20/23in setting of progressive jaundice with mixed hyperbilirubinemia and worsening MELD score. CBC, BMP, and INR monthly with AFP 3-[address] of chest and CT 3-phase as part of transplant evaluation ordered 09/20/23 -Compensated: Yes -Ascites: none -Dieretics: None. S/P TIPS -MELD score: 12. Calculated 10/2019. -Hepatocellular carcinoma screening: ultrasound AFP 01/28/2020 recently reordered by . -Varices screening: No longer needed due to TIPS. Dr. Aguilera states pt no longer needs Nadolol -Hx encephalopathy: None, self discontinue lactulose -Hx SBP: None -HCC screening abdominal US Aug 2023 no evidence of HCC -Hep A and B immune -Low sodium diet discussed. Avoid hepatotoxic agents. -Followed by: [facility] -continue ursodiol therapy given marked AP elevation and potential for AMA negative PCB. -transplant candidacy will be determined by multidisciplinary transplant committee after all appropriate testing has been performed. -call place by me to [facility] care program resident at [facility] [phone] to stress the urgency of GAME ADVISOR services and increase level of care. He repots BERENICE request in place and waiting for approval. 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 At times she has had a transient hepatitis B positive test, but that might have been passive after blood transfusion. Last HBV PCR January 2017 was negative. She is followed by [facility]. -seen by Liver Transplant clinic for consideration 09/20/23in setting of progressive jaundice with mixed hyperbilirubinemia and worsening MELD score. CBC, BMP, and INR monthly with AFP 3-[address] of chest and CT 3-phase as part of transplant evaluation ordered 09/20/23 -Compensated: Yes -Ascites: none -Dieretics: None. S/P TIPS -MELD score: 12. Calculated 10/2019. -Hepatocellular carcinoma screening: ultrasound AFP 01/28/2020 recently reordered by . -Varices screening: No longer needed due to TIPS. Dr. Aguilera states pt no longer needs Nadolol -Hx encephalopathy: None, self discontinue lactulose -Hx SBP: None -HCC screening abdominal US Aug 2023 no evidence of HCC -Hep A and B immune -Low sodium diet discussed. Avoid hepatotoxic agents. -Followed by: [facility] -continue ursodiol therapy given marked AP elevation and potential for AMA negative PCB. -transplant candidacy will be determined by multidisciplinary transplant committee after all appropriate testing has been performed. -call place by me to [facility] care program resident at [facility] [phone] cell [phone] to stress the urgency of GAME ADVISOR services and increase level of care. He repots BERENICE request in place and waiting for approval. 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 At times she has had a transient hepatitis B positive test, but that might have been passive after blood transfusion. Last HBV PCR January 2017 was negative. She is followed by [facility]. The possibility for liver transplant evaluation has been discussed but she is severely non compliant with medications and follow through. Her former decompensations have been variceal bleeding and possibly confusion. She is on ursodiol for itching. Ultrasound was in 2019 for HCC screening revealed patent TIPS with normal intrashunt velocities, cirrhosis and portal hypertension and cholelithiasis. At previous visit, I gave her a binder with her specialist name, number, my - Last note from GI 04/2021. Other insomnia 07/21/2012 Overview (06/29/2023): Could be due to the lack of physical activities during the daytime. May try meditation to help with sleep issues discussed trying to increase daytime physical activities, leisure reading before bedtime and to push sleep time later to 10 PM Assessment & Plan (10/20/2023 8:57 AM EST): Could be due to the lack of physical activities during the daytime. May try meditation to help with sleep issues discussed trying to increase daytime physical activities, leisure reading before bedtime and to push sleep time later to 10 PM Assessment & Plan (07/28/2023 8:57 AM EDT): Could be due to the lack of physical activities during the daytime. May try meditation to help with sleep issues discussed trying to increase daytime physical activities, leisure reading before bedtime and to push sleep time later to 10 PM Anemia 04/11/2012 Depressive disorder 04/11/2012 Overview (06/29/2023): PT refuses services with therapy or medication. She likely has component of personally disorder. She is not active in her care. She has had multiple car checker which she has fired and multiple case mangers. She relies heavily on her 13 year old daughter for care and looks to her when I ask her questions such as which pharmacy to you use? . At a previous visit, I mad her a binder with her specialists names, numbers, my information, her medications and PMH to bring to her at each visit and help her with organizing her care and follow up. She does not know where this is. She continues to be an barrier in her own care plan. I referred to case management today to see what her services are including [facility] services. Assessment & Plan (01/18/2024 9:17 AM EDT): PT refuses services with therapy or medication. She likely has component of personally disorder. She is not active in her care. She has had multiple car checker which she has fired and multiple case mangers. She relies heavily on her 13 year old daughter for care and looks to her when I ask her questions such as which pharmacy to you use? . At a previous visit, I mad her a binder with her specialists names, numbers, my information, her medications and PMH to bring to her at each visit and help her with organizing her care and follow up. She does not know where this is. She continues to be an barrier in her own care plan. I referred to case management today to see what her services are including [facility] services. Assessment & Plan (10/20/2023 8:57 AM EST): PT refuses services with therapy or medication. She likely has component of personally disorder. She is not active in her care. She has had multiple car checker which she has fired and multiple case mangers. She relies heavily on her 13 year old daughter for care and looks to her when I ask her questions such as which pharmacy to you use? . At a previous visit, I mad her a binder with her specialists names, numbers, my information, her medications and PMH to bring to her at each visit and help her with organizing her care and follow up. She does not know where this is. She continues to be an barrier in her own care plan. I referred to case management today to see what her services are including [facility] services. Assessment & Plan (07/28/2023 8:57 AM EDT): PT refuses services with therapy or medication. She likely has component of personally disorder. She is not active in her care. She has had multiple car checker which she has fired and multiple case mangers. She relies heavily on her 13 year old daughter for care and looks to her when I ask her questions such as which pharmacy to you use? . At a previous visit, I mad her a binder with her specialists names, numbers, my information, her medications and PMH to bring to her at each visit and help her with organizing her care and follow up. She does not know where this is. She continues to be an barrier in her own care plan. I referred to case management today to see what her services are including [facility] services. Resolved Problems Problem Noted Date Diagnosed Date Resolved Date Onychomycosis 05/04/2024 07/06/2024 Assessment & Plan (05/04/2024 9:36 AM EDT): Failure of topical treatment, not a candidate for oral medication at this time due to end stage liver disease, referral to podiatry Ingrowing nail, right great toe 05/04/2024 07/06/2024 Assessment & Plan (05/04/2024 9:35 AM EDT): Encouraged warm soaks, gauze for slight nail separation, If exudate or erythema increases, rtc for possible abx, referral to podiatry for management Physical exam 07/28/2023 09/29/2023 Overview (07/28/2023): -Normal growth and development. -Anticipatory guidance discussed. -Preventative care / harm reduction discussed. Assessment & Plan (07/28/2023 8:56 AM EDT): -Normal growth and development. -Anticipatory guidance discussed. -Preventative care / harm reduction discussed. Hordeolum externum of upper eyelid 06/29/2023 10/09/2024 Generalized convulsive seizure 05/06/2016 10/09/2024 Encounters Date Type Department Care Team Description 11/02/2024 9:00 AM EST Clinical Support [facility] [address] [place] [address] Laya Horan, PharmD Type 2 diabetes mellitus with hyperglycemia, with long-term current use of insulin (CMS/HCC) (Primary Dx); Complex partial seizure (CMS/HCC); End stage liver disease (CMS/HCC) 10/24/2024 9:30 AM EST Office Visit [facility] [address] [place] [phone] Sammie Maharaj MD Complex partial seizure ([facility]/HCC) (Primary Dx); End stage liver disease (CMS/HCC); Type 2 diabetes mellitus with hyperglycemia, with long-term current use of insulin ([facility]/HCC); Complex care coordination; Abnormal CT of the abdomen; Other specified health status; Tinea unguium 10/24/2024 Travel 10/24/2024 Refill [facility] [address] [place] [phone] Sammie Maharaj MD Microcytic anemia 10/23/[address] [address] Laya Azul MA 10/23/[address] [address] Laya Azul MA chartprep 09/26/2024 Refill [facility] [address] [place] [phone] Sammie Maharaj MD Tinea yuerupali 08/27/2024 Orders Only GENERIC EXTERNAL DATA DEPARTMENT Provider, Generic External Data 08/21/[address] [address] Sharda Hunt MA October Recall 08/17/[address] [address] Ericka Osei MD Type 2 diabetes mellitus with hyperglycemia, with long-term current use of insulin ([facility]) (Primary Dx) from Last 3 Months Immunizations Name Administration Dates Next Due DTaP, 5 pertussis antigens 04/03/2010 Hep A, Adult 05/01/2009,02/29/2008 Hep B, adult 09/29/2023,07/28/2023,07/13/2019 Hib ([facility]) 06/11/2009 Influenza injectable quadriv alent IIV4 with preservative 10/12/2017 Influenza injectable quadriv alent preservative free 07/28/2023,06/25/2022,11/10/2020,07/13 Influenza, IIV3, injectable 07/04/2014, 9 Influenza, Split (incl. stevenson fied surface antigen) 06/14/2013 Influenza, seasonal, injecta ble, preservative free 07/09/2024 Meningococcal MCV4P ACYW-135 06/11/2009 PPD Test 04/03/2010 Pfizer Covid-19 Vaccine 12+ 07/09/2024, Pneumococcal Conjugate PCV 20 07/28/2023 Pneumococcal Polysaccharide PPSV23 06/26/2011,,02/29/2008 Pneumococcal, Unspecified 02/29/2008 Tdap 08/29/2023,07/21/2012 Zoster, Recombinant 10/21/2023 Family History Medical History Relation Name Comments Liver disease Brother Relation Name Status Comments Brother Social History Tobacco Use Types Packs/Day Years Used Date Smoking Tobacco: Never Smokeless Tobacco: Never Tobacco Cessation:Counseling Given: Not Answered Depression Answer Date Recorded Patient Health Questionnaire-9 [...] Orientation Straight 08/09/2022 10 :18 AM EDT Last Filed Vital Signs Vital Sign Reading Time Taken Comments Blood Pressure 120/68 10/24/2024 9:31 AM EST Pulse 81 10/24/2024 9:31 AM EST Temperature 35.9 ??C (96.6 ??F) 10/24/2024 9:31 AM ES T Respiratory Rate 16 10/24/2024 9:31 AM EST Oxygen Saturation 98% 10/24/2024 9:31 AM EST Inhaled Oxygen Concentration - - Weight 53.5 kg (118 lb) 10/24/2024 9:31 AM EST Height 147.3 cm (4' 10 ) 07/09/2024 9:20 AM EDT Body Mass Index 24.66 07/09/2024 9:20 AM EDT Plan of Treatment Upcoming Encounters Date Type Department Care Team (Late st Contact Info) Description 02/25/2025 9:00 AM EDT Office Visit [facility] [address] [place] [address] Mckay, Darshana, OD [address] [place] [address] Health Maintenance Due Date Last Done Comments Family Planning (PISQ) 1996 Diabetes: Hemoglobin A1C 01/06/2025 024, 01/18/2024, 10/28/2023, Additional history exists Mammogram 09/06/2025 09/06/2023 Alcohol/Substance Use Screening 10/24/2025 10/24/2024 Depression Screening 10/24/2025 10/24/2024, 10/24/19 Diabetes: Foot Exam 10/24/2025 10/24/2024, 10/24/2024, 10/24/2024, Additional history exists Lipid Panel 10/24/2025 10/24/2024, 07/10, 12/07/2021, Additional history exists SDOH Screening 10/24/2025 10/24/2024 Tobacco Screening 10/24/2025 10/24/2024 Diabetes: Urine Protein Screening 11/05/2025 11/05/2024, 07/28/2023, 12/07/2021 Eye Exam 11/11/2025 11/11/2023, 11/2023, 11/11/2023, Additional history exists Cervical Cancer Screening 03/25/2026 HPV/Cotest 03/25/2026 Pap Smear 03/25/2026 03/25/2021 Zoster Vaccines (2 of 2) 2031 10/21/2023 DTaP/Tdap/Td Vaccines (4 - Td or Tdap) 08/29/2033 08/29/2023, 07/21/2012, 04/03/2010 RSV Patients and Patients Aged 60 years or older (1 - 1-dose 75+ series) 2056 Hepatitis A Vaccines Completed 05/01/2009, 02/29/20 08 HIB Vaccines Aged Out 06/11/2009 No longer eligi ble based on patient's age to complete this topic Meningococcal Vaccine Aged Out 06/11/2009 No monico dre eligible based on patient's age to complete this topic HIV Screening Completed 07/28/2023, 12/11/2020 Hepatitis C Screening Completed 07/28/2023, 021 Pneumococcal Vaccine: Pediatrics (0 to 5 Years) and At-Risk Patients (6 to 64 Years) Completed 07/28/2023, 06/26/2011, 06/11/2009, Additional history exists Hepatitis B Vaccines Completed 09/29/2023, 07/28/2023, 07/13/2019 COVID-19 Vaccine Completed 07/09/2024, , 03/17/2021 Influenza Vaccine Completed 07/09/2024, , 06/25/2022, Additional history exists HPV Vaccines Aged Out No longer eligi ble based on patient's age to complete this topic IPV Vaccines Aged Out No longer eligi ble based on patient's age to complete this topic RSV under 20 months Aged Out No longe r eligible based on patient's age to complete this topic Rotavirus Vaccines Aged Out No longer eligible based on patient's age to complete this topic Procedures Procedure Name Priority Date/Time Associated Diagnosis Comments ALBUMIN, RANDOM URINE W/CREATININE Routine 11/05/2024 10:20 AM EST Type 2 diabetes mellitus with hyperglycemia, with long-term current use of insulin (CMS/HCC) BASIC METABOLIC PANEL Routine 10/24/2024 9:59 AM EST Type 2 diabetes mellitus with hyperglycemia, with long-term current use of insulin (CMS/HCC) LIPID PANEL, STANDARD Routine 10/24/2024 9:59 AM EST Type 2 diabetes mellitus with hyperglycemia, with long-term current use of insulin (CMS/HCC) HEPATIC FUNCTION PANEL Routine 9:59 AM EST Type 2 diabetes mellitus with hyperglycemia, with long-term current use of insulin (CMS/HCC) COMPREHENSIVE METABOLIC PANEL Routine 08/27/2024 9:12 AM EST PROTHROMBIN TIME-INR Routine 08/27/2024 9:12 AM EST CBC WITH AUTO DIFFERENTIAL Routine 08/27/2024 9:12 AM EST POCT GLYCOSYLATED HEMOGLOBIN (HGB A1C) Routine 07/09/2024 3:59 PM EDT Type 2 diabetes mellitus with hyperglycemia, with long-term current use of insulin (CMS/HCC) BI MAMMOGRAM SCREENING TOMOSYNTHESIS BILATERAL Routine 09/06/2023 10:14 AM EST HEPATITIS C ANTIBODY Routine 07/28/2023 10:55 AM EDT Routine screening for STI (sexually transmitted infection) HIV ANTIBODY/ANTIGEN ([facility]) Routine 07/28/2023 10:55 AM EDT PAP SMEAR Routine 03/25/2021 12:00 AM EDT from Last 3 Months or Most Recently Relevant to Health Maintenance Results * Albumin, Random Urine W/Creatinine (11/05/2024 10:20 AM EST) Creatinine, Urine 59.34 mg/dL [facility] Microalbumin Urine <5.0 mg/L [facility] Microalbum Creatinine Ratio Ur TNP <30 ug/mg cr [facility] Comment:Unable to calculate albumin/creatinine ratio due to lowmicroalbumin or creatinine result. Urine 11/05/2024 10:2 0 AM EST 11/05/2024 11:21 AM EST Sammie Maharaj MD LAB URINE ORDERABLES Final Result Performing Organization Address [facility]/ZIP Co de Phone Number [facility] [address] [place] [phone] * (ABNORMAL) Hepatic Function Panel (10/24/2024 9:59 AM EST) Bilirubin, Total 8.2(H) 0.0 - 1.0 mg/dL [facility] Comment:Mild Icterus. Bilirubin, Direct 6.4(H) 0.0 - 0.5 mg/dL [facility] Comment:Mild Icterus. Aspartate Amino Transferase 121(H) 5 - 31 U/L [facility] Alanine Aminotransferase 98(H) 0 - 31 U/L [facility] Total Protein 6.2(L) 6.5 - 8.0 g/dL [facility] Albumin Level 3.0(L) 3.5 - 5.0 g/dL [facility] Alkaline Phosphatase 876(H) 39 - 117 U/L [facility] Blood Venous blood specimen / Unknown 10/24/2024 9:59 AM EST 10/24/2024 11:05 AM EST Sammie Maharaj MD LAB BLOOD ORDERABLES Final Result Performing Organization Address [facility]/ZIP Co de Phone Number [facility] [address] [place] [phone] * (ABNORMAL) Lipid Panel, Standard (10/24/2024 9:59 AM EST) Triglycerides 91 <150 mg/dL [facility] Comment:Mild Icterus.Interpr et result with caution.Desirable Triglyceride: less than 150 mg/dLBorderline High Triglyceride 150-199 mg/dLHigh Triglyceride: 200-499 mg/dLVery High Triglyceride: greater than or equal to 5OO mg/dL Cholesterol 132 <200 mg/dL [facility] Comment:Mild Icterus.Interpr et result with caution.Desirable Cholesterol: less than 200 mg/dLBorderline High Cholesterol: 200-239 mg/dLHigh Cholesterol: greater than 239 mg/dL LDL Cholesterol Calculated 92 <100 mg/dL [facility] Comment:Desirable LDL: less than 100 mg/dLNear Optimal/Above Optimal LDL: 110- 129 mg/dLBorderline High LDL: 130-159 mg/dLHigh LDL: 160-189 mg/dLVery High LDL: greater than or equal to 190 mg/dL HDL Cholesterol 22(L) >40 mg/dL [facility] Comment:Desirable HDL: great er than 40 mg/dL Note: This HDL assay may give artificially low results in patients with liver disease. Blood Venous blood specimen / Unknown 10/24/2024 9:59 AM EST 10/24/2024 11:05 AM EST us Sammie Maharaj MD LAB BLOOD ORDERABLES Final Result [facility] [address] [place] [phone] * (ABNORMAL) Basic Metabolic Panel (10/24/2024 9:59 AM EST) Sodium 140 135 - 145 mmol/L [facility] Potassium 3.4 3.3 - 5.1 mmol/L [facility] Chloride 115(H) 96 - 108 mmol/L [facility] Carbon Dioxide 20(L) 22 - 29 mmol/L [facility] Anion Gap 8(L) 12 - 20 [facility] Urea Nitrogen (BUN) 11 9 - 16 mg/dL [facility] Creatinine, Serum 0.48(L) 0.5 - 1.4 mg/dL [facility] Estimated Glomerular Filt Rate >60 [facility] Comment:Chronic Kidney Disea se: Estimated GFR < 60 mL/min/1.68g6Fndafu Kidney Disease: Estimated GFR < 15 mL/min/1.73m2 Glucose 93 60 - 115 mg/dL [facility] Calcium 8.3(L) 8.4 - 10.2 mg/dL [facility] Blood Venous blood specimen / Unknown 10/24/2024 9:59 AM EST 10/24/2024 11:05 AM EST Sammie Maharaj MD LAB BLOOD ORDERABLES Final Result [facility] [address] [place] [phone] * (ABNORMAL) CBC auto differential (08/27/2024 9:12 AM EST) White Blood Count 4.2(L) 4.8 - 10.8 X10*3/uL [facility] Red Blood Count 3.75(L) 4.20 - 5.50 X10*6/uL [facility] Hemoglobin 12.1 12.0 - 16.0 g/dl [facility] Hematocrit 35.5(L) 37.0 - 47.0 % [facility] Mean Corpuscular Volume 94.7 80.0 - 98.0 fL [facility] Mean Corpuscular Hemoglobin 32.3 27.0 - 33.0 pg [facility] Mean Corpuscular HGB Conc 34.1 31.0 - 35.0 g/dl [facility] Red Cell Distribution Width 13.7 11.0 - 16.0 % [facility] Platelet Count 118(L) 160 - 400 X10*3/uL [facility] Mean Platelet Volume 12.2 9.4 - 12.3 fL [facility] Neutrophils Percent Auto 70.3 45 - 73 % [facility] Imm Gran Pct Auto 0.2 0.0 - 0.4 % [facility] Lymphocytes Percent Auto 17.5(L) 20 - 40 % [facility] Monocytes Percent Auto 7.3 2 - 11 % [facility] Eosinophils Percent Auto 4.0 0 - 4 % [facility] Basophils Percent Auto 0.7 0 - 2 % [facility] NRBC Pct Auto 0.0 0.0 - 0.2 /100WBC [facility] Neutrophils Absolute Auto 3.0 2.0 - 8.3 x10*3/uL [facility] Imm Gran Abs Auto 0.01 0.00 - 0.03 X10*3/uL [facility] Lymphocytes Absolute Auto 0.7(L) 1.2 - 4.9 X10*3/uL [facility] Monocytes Absolute Auto 0.3 0.1 - 1.2 X10*3/uL [facility] Eosinophils Absolute Auto 0.2 0.0 - 0.4 X10*3/uL [facility] Basophils Absolute Auto 0.0 0.0 - 0.2 X10*3/uL [facility] NRBC Abs Auto 0.000 0.0 - 0.012 X10*3/uL [facility] 08/27/2024 9:12 AM EST 08/27/2024 9:12 AM EST us Generic External Data Provider LAB BLOOD ORDERAB LES Final Result [facility] [address] [place] [phone] * (ABNORMAL) Prothrombin Time-INR (08/27/2024 9:12 AM EST) Prothrombin Time 14.0(H) 10.9 - 12.4 SEC [facility] INTERNATIONAL NORM RATIO 1.2(H) 0.9 - 1.1 [facility] Comment:INTERNATIONAL NORMAL IZED RATIO (INR) REFERENCE RANGES Reference RangeFor patients not on anticoagulant therapy: 0.9 - 1.1INR ranges for oral anticoagulanttherapy:For prevention and treatment of venous thrombosis and pulmonary embolism: 2.0 - 3.0For acute myocardial infarction with aspirin therapy: 2.0 - 3.0For acute myocardial infarction without aspirin therapy: 3.0 - 4.0For patients with mechanical prosthetic heart valves: 2.5 - 3.5 08/27/2024 9:12 AM EST 08/27/2024 9:12 AM EST us Generic External Data Provider LAB BLOOD ORDERAB LES Final Result [facility] [address], [place] [phone] * (ABNORMAL) Comprehensive Metabolic Panel (08/27/2024 9:12 AM EST) Sodium 141 135 - 145 mmol/L [facility] Potassium 3.4 3.3 - 5.1 mmol/L [facility] Chloride 112(H) 96 - 108 mmol/L [facility] Carbon Dioxide 23 22 - 29 mmol/L [facility] Anion Gap 9(L) 12 - 20 [facility] Urea Nitrogen (BUN) 14 9 - 16 mg/dL [facility] Creatinine, Serum 0.61 0.5 - 1.4 mg/dL [facility] Estimated Glomerular Filt Rate >60 [facility] Comment:Chronic Kidney Disea se: Estimated GFR < 60 mL/min/1.39w6Rlaujg Kidney Disease: Estimated GFR < 15 mL/min/1.73m2 Glucose 129(H) 60 - 115 mg/dL [facility] Calcium 8.4 8.4 - 10.2 mg/dL [facility] Bilirubin, Total 7.8(H) 0.0 - 1.0 mg/dL [facility] Comment:Mild Icterus. Aspartate Amino Transferase 111(H) 5 - 31 U/L [facility] Alanine Aminotransferase 100(H) 0 - 31 U/L [facility] Total Protein 6.0(L) 6.5 - 8.0 g/dL [facility] Albumin Level 3.0(L) 3.5 - 5.0 g/dL [facility] Alkaline Phosphatase 931(H) 39 - 117 U/L [facility] 08/27/2024 9:12 AM EST 08/27/2024 9:12 AM EST us Generic External Data Provider LAB BLOOD ORDERAB LES Final Result [facility] [address] [facility] [place] [phone] * POCT glycosylated hemoglobin (Hgb A1c) (07/09/2024 3:59 PM EDT) Hemoglobin A1C 4.6 4.0 - 6.0 % QC Media Lot # [id number] Lot# Expiration Date Blood Capillary blood specimen / Unknown 07/09/2024 3:59 PM EDT Sammie Maharaj MD POINT OF CARE TEST ENTER/E DIT ORDERABLES Final Result * BI Mammogram Screening Tomosynthesis Bilateral (09/06/2023 10:14 AM EST) Anatomical Region Laterality Modality Breast Bilateral Mammography 09/06/2023 10:1 4 AM EST Narrative 09/19/2023 10:41 AM EST ? [facility] [place] ? [address] ?[place] [address] ? Mammography Report ? Signed ? Patient: Fabiano Chery,Aubrie ?MR#: [id number] ?? [id number] ? : 1980 ?Acct:[id number] ? Age/Sex: 43 / F ?ADM Date: 11/28/23 ? Loc: HO.MAMMO ? Attending Dr: Sammie Maharaj MD ? Ordering Physician: Sammie Maharaj MD ?Results: 1N ?? egative ? Date of Service: 09/06/23 ?Follow Up: 1 Year From Orig ?? inal Mammogram ? Procedure(s): MM tomosynthesis screening BI ?? Accession Number(s): [id number] ? cc: Sammie Maharaj MD ? EXAMINATION: ?? MM SCREENING DIGITAL BREAST TOMOSYNTHESIS, BILATERAL ? CLINICAL INFORMATION: ? Screening. Asymptomatic. ? COMPARISON: ?? Mammography: There are no prior mammograms for comparison. This is a ?? baseline study. ? TECHNIQUE: ?? Digital breast tomosynthesis is performed in both the craniocaudal and ?? mediolateral oblique views along with computer-aided detection (CAD). ?? Synthesized 2D images are generated from the tomosynthesis. ? FINDINGS: ?? There are scattered areas of fibroglandular density (ACR BI-RADS breast ?? composition Category b). ? There are no significant masses, abnormal calcifications, or other ?? abnormalities. ? MM/MM tomosynthesis screening BI ?? IMPRESSION: ?? No mammographic evidence of malignancy. ? ASSESSMENT: ? BI-RADS BI-RADS 1 - Negative ? RECOMMENDATION: ?? Routine annual mammography screening. ? 1 year F/U ? This examination should not preclude the clinical evaluation of a ?? suspicious palpable abnormality. ? This patient's information was entered into a reminder system with a ?? target due date for their next mammogram. ? Dictated By: ?Lissette Lamb MD ? Signed By: ?<Electronically signed by Lissette Lamb MD in OV> ? 09/19/23 1037 ? DD/DT: 09/06/ 1014 ? TD/TT: ? Specialty Department Supervisor: ? Procedure Note Donotuseinterpreter, Image - [facility] [address] [place] [address] Mammography Report Signed Patient: Aubrie BrewerMR#: [id number] : 1980Acct:[id number] Age/Sex: 43 / FADM Date: 09/06/23 Loc: HO.MAMMO Attending Dr: Sammie Maharaj MD Ordering Physician: Sammie Maharaj MDResults: 1N egative Date of Service: 09/06/23Follow Up: 1 Year From Orig inal Mammogram Procedure(s): MM tomosynthesis screening BI Accession Number(s): [id number] cc: Sammie Maharaj MD EXAMINATION: MM SCREENING DIGITAL BREAST TOMOSYNTHESIS, BILATERAL CLINICAL INFORMATION: Screening. Asymptomatic. COMPARISON: Mammography: There are no prior mammograms for comparison. This is a baseline study. TECHNIQUE: Digital breast tomosynthesis is performed in both the craniocaudal and mediolateral oblique views along with computer-aided detection (CAD). Synthesized 2D images are generated from the tomosynthesis. FINDINGS: There are scattered areas of fibroglandular density (ACR BI-RADS breast composition Category b). There are no significant masses, abnormal calcifications, or other abnormalities. MM/MM tomosynthesis screening BI IMPRESSION: No mammographic evidence of malignancy. ASSESSMENT: BI-RADS BI-RADS 1 - Negative RECOMMENDATION: Routine annual mammography screening. 1 year F/U This examination should not preclude the clinical evaluation of a suspicious palpable abnormality. This patient's information was entered into a reminder system with a target due date for their next mammogram. Dictated By: Lissette Lamb MD Signed By: <Electronically signed by Lissette Lamb MD in OV> 09/19/23 1037 DD/ 1014 TD/TT: Specialty Department Supervisor: us Sammie Maharaj MD IMG BI PROCEDURES Final Re sult * Hepatitis C Ab (07/28/2023 10:55 AM EDT) Hepatitis C Antibody Nonreactive Nonreactive [facility] Comment:Antibodies to HCV no t detected; does not exclude early acuteHCV infection. Blood 07/28/2023 10:5 5 AM EDT 07/28/2023 1:11 PM EDT Sammie Maharaj MD LAB BLOOD ORDERABLES Final Result Performing Organization Address [facility] Co de Phone Number [facility] [address] [place] [phone] * HIV Ab/Ag ([facility]) (07/28/2023 10:55 AM EDT) HIV AB/AG Nonreactive Nonreactive [facility] Comment:HIV-1 p24 Ag and/or HIV-1/HIV-2 Ab not detected.A test result that is nonreactive does not exclude thepossibility of exposure to or infection with HIV-1 and/orHIV-2. Nonreactive results in this assay for individualswith prior exposure to HIV-1 and/or HIV-2 may be due toantigen and antibody levels that are below the limit ofdetection of this assay.The Dash[employer] HIV Ag/Ab Combo assay result andsupplemental assay results should be interpreted inconjunction with the patient's clinical presentation,history and other laboratory results. If the results areinconsistent with clinical evidence, additional testing issuggested to confirm the result. 07/28/2023 10:5 5 AM EDT 07/28/2023 1:11 PM EDT Sammie Maharaj MD LAB BLOOD ORDERABLES Final Result Performing Organization Address [facility]/ZIP Co de Phone Number [facility] [address] [place] [phone] * Pap Smear (03/25/2021 12:00 AM EDT) Swab us Historical Provider MD LAB CYTOLOGY ORDERABLES F inal Result IMAGING from Last 3 Months or Most Recently Relevant to Health Maintenance [place] [address] [address] [address] - [employer] Advance Directives Documents on File Type Date Recorded Patient Digital Community Manager Expl anation Advance Directives and Living Will 07/09/2024 Health Care Proxy 07/09/24 Care Teams Operations Clerk Relationship Specialty Start Date End Date Barry, MD Sammie [address] [place] [address] PCP - General Family Medicine 10/10/18 Loyda Glaser RN [address] [place] [address] Glue Maker Bone Family Medicine 10/31/23 Yasmin Ho MD [address] [place] [address] [phone] Gastroenterology 08/29/24 Manuel Carpenter PA [address] [address] Neurology 08/29/24 Paola Tolentino, ASSOCIATE PROFESSOR OF GEOLOGY [address] [address] Endocrinology 10/24/24
--- OUTSIDE RECORDS SUMMARY | 2024-11-05 14:54 | XMS_ITS | Encounter Summary ---
Author Organization [employer] Address [address] [facility] [facility] [address] 7t [place] [address] Care Team Providers Care Gynecological Assistant Name Role Phone Sammie Maharaj MD Primary Care Provider +1- [phone] Loyda Glaser RN Unavailable [phone] Yasmin Ho MD Unavailable Reason for Visit * Reason Comments Med Refill Encounter Details Date Type Department Care Team (Late st Contact Info) Description 10/24/2024 Refill [facility] [address] [place], [place] [phone] Sammie Mhaaraj MD 230 [place], [place] [phone] Microcytic anemia Social History Tobacco Use Types Packs/Day Years [...] Description 02/25/2025 9:00 AM EDT Office Visit [facility] [address] [place] [address] Mckay, Darshana, OD 230 [place] [address] documented as of this encounter Visit Diagnoses Diagnosis Microcytic anemia Unspecified iron deficiency anemia documented in this encounter Additional Health Concerns Assessment Noted Time PHQ-9 Depression Total Score: 0 10/24/19 25 9:33 AM EST documented as of this encounter Care Teams Gynecological Assistant Relationship Specialty Start Date End Date Sammie Maharaj MD [address] [place] [address] PCP - General Family Medicine 10/10/18 Loyda Glaser RN [address] [place] [address] Games Dealer Family Medicine 10/31/23 Yasmin Ho MD [address] [place] [address] Gastroenterology 08/29/24 Manuel Carpenter PA U [address] [phone] Neurology 08/29/24 Paola Tolentino NP [address] [address] Endocrinology 10/24/24 documented as of this encounter
--- OUTSIDE RECORDS SUMMARY | 2024-11-05 14:54 | XMS_ITS | Encounter Summary ---
Author Organization [employer] Address [address] [address] 7t [place] [address] Care Team Providers Care Project Facilitator Name Role Phone Sammie Maharaj MD Primary Care Provider [phone]- [phone] Loyda Glaser RN Unavailable [phone] Yasmin Ho MD Unavailable [phone] Reason for Visit * Reason Comments Med Refill Encounter Details Date Type Department Care Team (Late st Contact Info) Description 10/25/2023 Refill [facility] 230 [place], [place] [phone] Sammie Maharaj MD [address] [place], [place] [phone] Microcytic anemia Social History Tobacco Use Types Packs/Day Years Used Date Smoking Tobacco: Never Smokeless Tobacco: Never Depression Answer Date Recorded Patient Health Questionnaire-9 Score 0 07/28/2023 Patient Health Questionnaire-9 Score 0 07/28/2023 Last PHQ-9: Questionnaire Data Not on file 1 Housing Stability Answer Date Recorded What is your housing situation today? I have concepcion marie 07/26/[address] you li ve. Do you have problems with any of the following? None of the above 07/26/2023 Food Insecurity Answer Date Recorded Within the past 12 months, y ou worried that your food would run out before you got money to buy more: Never True 07/26/2023 Within the past 12 months,th e food you bought just didn't last and you didn't have enough money to get more: Never True Transportation Answer Date Recorded In the past 12 months, has l ack of transportation kept you from medical appts, meetings, work or from getting things needed for daily living? No 07/26/2023 Utilities Answer Date Recorded In the past 12 months, has t he electric, gas, oil or water company threatened to shut off services in your home? No 07/26/2023 Depression Answer Date Recorded Patient Health Questionnaire-2 Score 0 07/28/2023 Comments Unknown Sex and Gender Information Value Date Recorded Sex Assigned at Female 08/09/2022 10:18 AM EDT Legal Sex Female 10:18 AM EDT Gender Identity Female 08/09/2022 10:18 AM EDT Sexual Orientation Straight 08/09/2022 10 :18 AM EDT documented as of this encounter Miscellaneous Notes * Telephone Encounter - Sammie Maharaj MD - 10/26/2023 9:49 AM EST Will await ferritin level drawn last week. Thank you. documented in this encounter Plan of Treatment Upcoming Encounters Date Type Department Care Team (Late st Contact Info) Description 02/25/2025 9:00 AM EDT Office Visit [facility] [address] [place], [place] [phone] Mckay, Darshana, OD 230 [place] [address] documented as of this encounter Visit Diagnoses Diagnosis Microcytic anemia Unspecified iron deficiency anemia documented in this encounter Additional Health Concerns Assessment Noted Time PHQ-9 Depression Total Score: 0 07/28/20 23 9:42 AM EDT documented as of this encounter Care Teams Project Facilitator Relationship Specialty Start Date End Date Sammie Maharaj MD [address] [place] [address] PCP - General Family Medicine 10/10/18 Loyda Glaser RN [address] [place] [address] Public Works Laborer Family Medicine 10/31/23 Yasmin Ho MD [address] [place] [address] Gastroenterology 08/29/24 Manuel Carpenter PA [address] [address] Neurology 08/29/24 Paola Tolentino NP [address] [address] Endocrinology 10/24/24 documented as of this encounter
--- OUTSIDE RECORDS SUMMARY | 2024-11-05 14:54 | XMS_ITS | Encounter Summary ---
Demographics Address [address] [facility] [address] [place] [address] Home Phone Mobile Phone Preferred Language Albanian; Castilian Marital Status Single Catholic Affiliation Unknown Race Unknown Ethnic Group Unknown Author Organization [facility] Address [address] [place] [address] Support Name Relationship Address Phone Orion Rubio Daughter [address] [facility] [address] [place] [address] Care Team Providers Care Pension Consultant Name Role Phone Sammie Maharaj Primary Care Provider [phone] Encounter Details Date Type Department Care Team (Late st Contact Info) Description 11/04/2023 Orders Only [facility] Interventional Radiology [address] [place] [address] Duncan Ragland MD [address] [place] [address] Social History Tobacco Use Types Packs/Day Years [...] Description 11/14/2024 8:00 AM EST Office Visit [facility] [address] [place] [address] Info Print Press Operator: Paola Vance NP [address] [place] [address] [place] [address] 01/08/2025 8:00 AM EDT Follow-Up [facility] [address] [place] [address] Yasmin Ho MD 55 [place] [address] 08/06/2025 8:00 AM EDT Office Visit [facility] Neurology Clinic [address] [place] [address] Manuel Carpenter PA 55 [place] [address] documented as of this encounter Visit Diagnoses Not on filedocumented in this encounter Care Teams Pension Consultant Relationship Specialty Start Date End Date NickoSammie thompson [address] [place] [address] PCP - General Family Medicine 05/15/18 documented as of this encounter
--- OUTSIDE RECORDS SUMMARY | 2024-11-05 14:54 | XMS_ITS | Encounter Summary ---
Author Organization [employer] Address [address] 7t [place] [address] Care Team Providers Care Venetian Blind Machine Operator Name Role Phone Isabella, Sammie JOHNSON Primary Care Provider [phone]- [phone] Loyda Glaser RN Unavailable [phone] Yasmin Ho MD Unavailable [phone] Reason for Visit * Reason Comments Med Refill Encounter Details Date Type Department Care Team (Late st Contact Info) Description 11/18/2023 Refill [facility] 230 [place] [address] Tara Carlisle, DOMENICO Tinea unguium Social History Tobacco Use Types Packs/Day Years [...] Description 02/25/2025 9:00 AM EDT Office Visit [facility] [address] [place] [address] Mckay, Darshana, OD 230 [place] [address] documented as of this encounter Visit Diagnoses Diagnosis Tinea unguium Dermatophytosis of nail documented in this encounter Additional Health Concerns Assessment Noted Time PHQ-9 Depression Total Score: 0 07/28/20 9:42 AM EDT documented as of this encounter Care Teams Venetian Blind Machine Operator Relationship Specialty Start Date End Date Sammie Maharaj MD 230 [place] [address] PCP - General Family Medicine 10/10/18 Loyda Glaser RN [address] [place] [address] Hand Brush Filler Family Medicine 10/31/23 Yasmin Ho MD [address] [place] [address] Gastroenterology 08/29/[address] [facility] [address] [facility] [address] Neurology 08/29/24 Paola Tolentino, PROP SAWYER [address] [address] Endocrinology 10/24/24 documented as of this encounter
--- OUTSIDE RECORDS SUMMARY | 2024-11-05 14:54 | XMS_ITS ---
Demographics Address 17 [facility] [address] [place] [address] Home Phone Mobile Phone Preferred Language Mongolian; Castilian Marital Status Single Zoroastrian Affiliation Unknown Race Unknown Ethnic Group Unknown Author Organization [facility] Address [address] [place] [address] Support Name Relationship Address Phone Orion Rubio Daughter 17 [facility] [address] [place] [address] Care Team Providers Care Ui Software Developer Name Role Phone Nicko Sammie J Primary Care Provider [phone] Transplant Episode Liver Candidate [facility] ([place], [place]) [facility] waitlisted on 12/30/2023 Marked as Active on 12/30/2023 Liver CoordinatorKaty Boateng RN Phone: N/A Fax: N/A Email: N/A Scores Score Value Updated Expires Exceptions/Vida sons CPRA Not available UNOS MELD 18 09/24/2024 12/23/2024 MELD (Calc) 18 09/11/2024 [place] Organ Diagnosis Organ 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
--- OUTSIDE RECORDS SUMMARY | 2024-11-05 14:54 | XMS_ITS | Encounter Summary ---
Author Organization [employer] [facility] Address [address] [facility] [address] 7t [place] [address] Care Team Providers Care Assistant Store Director Name Role Phone Sammie Maharaj MD Primary Care Provider [phone]- [phone] Loyda Glaser RN Unavailable [phone] Yasmin Ho MD Unavailable [phone] Reason for Visit * Reason Onset Date Comments Appointment Request 10/20/2023 Encounter Details Date Type Department Care Team ([facility] st Contact Info) Description 10/20/2023 Telephone [facility] [address] [place] [address] Sammie Maharaj MD [address] [place], [place] [phone] Appointment Request Social History Tobacco Use Types Packs/Day Years [...] encounter Miscellaneous Notes * Telephone Encounter - Sean Azul - 10/20/2023 10:48 AM EST Tc from patient calling to cancel and reschedule appt for 11/03/2023 @ 9:30 check writer did cancel per patients request documented in this encounter Plan of Treatment Upcoming Encounters Date Type Department Care Team (Late st Contact Info) Description 02/25/2025 9:00 AM EDT Office Visit [facility] [address] [place] [address] Mckay, Darshana, OD 230 [place] [address] documented as of this encounter Visit Diagnoses Not on filedocumented in this encounter Additional Health Concerns Assessment Noted Time PHQ-9 Depression Total Score: 0 07/28/20 23 9:42 AM EDT documented as of this encounter Care Teams Assistant Store Director Relationship Specialty Start Date End Date Sammie Maharaj MD [address] [place] [address] PCP - General Family Medicine 10/10/18 Loyda Glaser RN [address] [place] [address] Benefits Assistant Family Medicine 10/31/23 Yasmin Ho MD [address] [place] [address] [phone] Gastroenterology 08/29/24 Manuel Carpenter PA [address] [phone] Neurology 08/29/24 Paola Tolentino, POT FEEDER [address] [address] Endocrinology 10/24/24 documented as of this encounter
--- OUTSIDE RECORDS SUMMARY | 2024-11-05 14:54 | XMS_ITS | Encounter Summary ---
Author Organization [employer] Address [address] [facility] [address] 7t [place] [address] Care Team Providers Care Pot Builder Name Role Phone [place], Sammie JOHNSON Primary Care Provider [phone]- [phone] Loyda Glaser RN Unavailable [phone] Yasmin Ho MD Unavailable [phone] Encounter Details Date Type Department Care Team (Late st Contact Info) Description 10/23/2024 Telephone [facility] 230 [place] [address] Laya Azul MA Social History Tobacco Use Types Packs/Day Years Used Date Smoking Tobacco: Never Smokeless Tobacco: Never Depression Answer Date Recorded Patient Health Questionnaire-9 Score 0 10/24/2024 Patient Health Questionnaire-9 Score 0 10/24/2024 Last PHQ-9: Questionnaire Data Not on file 0 10/24/2024 Housing Stability Answer Date Recorded What is your housing situation today? I have concepcion cynthia 10/24/[address] you li [...] encounter Miscellaneous Notes * Telephone Encounter - Laya Azul MA - 10/23/2024 3:27 PM EST error documented in this encounter Plan of Treatment Upcoming Encounters Date Type Department Care Team (Late st Contact Info) Description 02/25/2025 9:00 AM EDT Office Visit [facility] [address] [place] [address] Mckay, Darshana, OD 230 [place] [address] documented as of this encounter Visit Diagnoses Not on filedocumented in this encounter Additional Health Concerns Assessment Noted Time PHQ-9 Depression Total Score: 0 07/28/20 23 9:42 AM EDT documented as of this encounter Care Teams Pot Builder Relationship Specialty Start Date End Date Sammie Maharaj MD 230 [place] [address] PCP - General Family Medicine 10/10/18 Loyda Glaser, ERVIN [address] [place] [address] Computer Animator Family Medicine 10/31/23 Yasmin Ho MD [address] [place] [address] Gastroenterology 08/29/24 Manuel Carpenter PA [address] [address] Neurology 08/29/24 documented as of this encounter
--- OUTSIDE RECORDS SUMMARY | 2024-11-05 14:54 | XMS_ITS | Encounter Summary ---
Demographics Address 17 [facility] [address] [place] [address] Home Phone Mobile Phone Preferred Language Micronesian; Castilian Marital Status Single Congregational Affiliation Unknown Race Unknown Ethnic Group Unknown Author Organization [facility] Address [address] [place] [address] Support Name Relationship Address Phone Orion Rubio Daughter [address] [facility] [address] [place] [address] Care Team Providers Care Shake Table Operator Name Role Phone Sammie Maharaj Sujit Primary Care Provider [phone]- [phone] Encounter Details Date Type Department Care Team (Late st Contact Info) Description 07/13/2017 Transplant Conversio n Encounter [facility] Health Information Management [address] [place] [address] Provider, [facility] Social History Tobacco Use Types Packs/Day Years Used Date Smoking Tobacco: Never Comments:: Comments Unknown Sex and Gender Information Value [...] Description 11/14/2024 8:00 AM EST Office Visit [facility] Building Diabetes Clinic 55 [place] [address] Engineering Programmer: Paola Vance NP [address] [place] [address] 01/08/2025 8:00 AM EDT Follow-Up [facility] Liver Transplant Services [address] [place] [address] Yasmin Ho MD 55 [place] [address] 08/06/2025 8:00 AM EDT Office Visit [facility] Neurology Clinic 55 [place] [address] Manuel Carpenter PA 55 [place] [address] documented as of this encounter Visit Diagnoses Not on filedocumented in this encounter Care Teams Shake Table Operator Relationship Specialty Start Date End Date Pomerene, Sammie Beckett [address] [place] [address] PCP - General Family Medicine 05/15/18 documented as of this encounter
--- OUTSIDE RECORDS SUMMARY | 2024-11-05 14:54 | XMS_ITS | Encounter Summary ---
Demographics Address 17 [facility] [address] [place] [address] Home Phone Mobile Phone Preferred Language Ugandan; Castilian Marital Status Single Yazidi Affiliation Unknown Race Unknown Ethnic Group Unknown Author Organization [facility] Address [address] [place] [address] Support Name Relationship Address Phone Orion Rubio Daughter 17 [facility] [address] [place] [address] Care Team Providers Care Second Steward Name Role Phone Sammie Maharaj Primary Care Provider [phone] Encounter Details Date Type Department Care Team (Late st Contact Info) Description 11/03/2023 Orders Only [facility] Interventional Radiology [address] [place] [address] Duncan Ragland MD [address] [place] [address] Social History Tobacco Use Types Packs/Day Years [...] Description 11/14/2024 8:00 AM EST Office Visit [facility] Building Diabetes Clinic [address] [place] [address] Hosted Services Analyst: Paola Vance NP [address] [place] [address] [place] [address] 01/08/2025 8:00 AM EDT Follow-Up [facility] Liver Transplant Services [address] [place] [address] Yasmin Ho MD 55 [place] [address] 08/06/2025 8:00 AM EDT Office Visit [facility] Building Neurology Clinic [address] [place] [address] Manuel Carpenter PA 55 [place] [address] documented as of this encounter Visit Diagnoses Not on filedocumented in this encounter Care Teams Second Steward Relationship Specialty Start Date End Date NickoSammie thompson [address] [place] [address] PCP - General Family Medicine 05/15/18 documented as of this encounter
--- OUTSIDE RECORDS SUMMARY | 2024-11-05 14:54 | XMS_ITS | Encounter Summary ---
Author Organization [employer] Address [address] 7t [place] [address] Care Team Providers Care Dinkey Operator Name Role Phone [place], Sammie JOHNSON Primary Care Provider [phone]- [phone] Loyda Glaser RN Unavailable [phone] Yasmin Ho MD Unavailable [phone] Reason for Visit * Reason Onset Date Comments chartprep 10/23/2024 Encounter Details Date Type Department Care Team (Late st Contact Info) Description 10/23/2024 Telephone [facility] 230 [place] [address] Laya Azul MA chartprep Social History Tobacco Use Types Packs/Day Years [...] Encounter - Laya Azul MA - 10/23/2024 9:45 AM EST ..Chart Prep Labs: none Images: none Vaccines due: updates Referrals: Not Applicable Screenings: updates Overdue care gaps: SDOH and PHQ-9 documented in this encounter Plan of Treatment Upcoming Encounters Date Type Department Care Team (Late st Contact Info) Description 02/25/2025 9:00 AM EDT Office Visit [facility] [address] [place] [address] Mckay, Darshana, OD 230 [place] [address] documented as of this encounter Visit Diagnoses Not on filedocumented in this encounter Additional Health Concerns Assessment Noted Time PHQ-9 Depression Total Score: 0 07/28/20 23 9:42 AM EDT documented as of this encounter Care Teams Dinkey Operator Relationship Specialty Start Date End Date Sammie Maharaj MD [address] [place] [address] PCP - General Family Medicine 10/10/18 Loyda Glaser RN [address] [place] [address] Control Inspector Family Medicine 10/31/23 Yasmin Ho MD [address] [place] [address] Gastroenterology 08/29/24 Manuel Carpenter PA [address] [address] Neurology 08/29/24 documented as of this encounter
--- OUTSIDE RECORDS SUMMARY | 2024-11-05 14:54 | XMS_ITS | Encounter Summary ---
Author Organization [facility] Address [address] [place] [address] 7[address] [place] [address] Care Team Providers Care Broodmare Barn Groom Name Role Phone Sammie Maharaj MD Primary Care Provider [phone]- [phone] Loyda Glaser RN Unavailable [phone] Yasmin Ho MD Unavailable [phone] Reason for Referral * Consultation (Routine) - Authorized Specialty Diagnoses / Procedures Referred By Edu t Referred To Contact Pharmacy Diagnoses Complex partial seizure (CMS/HCC) End stage liver disease (CMS/HCC) Type 2 diabetes mellitus with hyperglycemia, with long-term current use of insulin (CMS/HCC) Complex care coordination Sammie Maharaj MD [address] [place] [address] Phone: tel: fax: Referral ID Status Reason Start Date Expiration Date Visits Requested Visits Authorized [id number] Authorized Continuity of Care 10/24/2024 10/24/2025 6 6 Reason for Visit * Reason Comments Follow-up Chronic condition Encounter Details Date Type Department Care Team (Late st Contact Info) Description 10/24/2024 9:30 AM EST Office Visit [facility] [address], [place] [phone] Sammie Maharaj MD [address], [place] [phone] Complex partial seizure (CMS/HCC) (Primary Dx); End stage liver disease (CMS/HCC); Type 2 diabetes mellitus with hyperglycemia, with long-term current use of insulin ([facility]); Complex care coordination; Abnormal CT of the abdomen; Other specified health status; Tinea unguium Social History Tobacco Use Types [...] AM EDT documented as of this encounter Last Filed Vital Signs Vital Sign Reading Time Taken Comments Blood Pressure 120/68 10/24/2024 9:31 AM EST Pulse 81 10/24/2024 9:31 AM EST Temperature 35.9 ??C (96.6 ??F) 10/24/2024 9:31 AM ES T Respiratory Rate 16 10/24/2024 9:31 AM EST Oxygen Saturation 98% 10/24/2024 9:31 AM EST Inhaled Oxygen Concentration - - Weight 53.5 kg (118 lb) 10/24/2024 9:31 AM EST Height - - Body Mass Index 24.66 07/09/2024 9:20 AM EDT documented in this encounter Progress Notes * Sammie Maharaj MD - 10/24/2024 9:30 AM EST Subjective Patient ID: Aubrie Chery is a 44 y.o. female with PMHx of generalized convulsive seizures,hypertension, type 2 diabetes, End stage liver disease, Cerebral artery, and depressive disorder who presents for chronic conditions. Our biggest issue today is pt is not sure if she is taking nay medications. She has specialists with liver clinic, endocrinology and neurology at [facility] [place] and is not sure what she would be on. She agrees to medication recompilation referral today. Since previous visit: Saw Neurologist at [facility] on 08/20/24, Plan is to continue ZNS 200 mg daily and follow up in one year, or sooner if needed. Saw Transplant Hepatology and GI specialist at [facility] on 09/11/24. Per note, she remains active on LT waitlist with an updated MELD 3.0 of 19 based on blood work in April 2024. Etiology of her liver disease and progressive jaundice remains unclear despite prior MRI/MRCP and interval liver biopsy in May 2024 which was non-specific with non-specific findings which we reviewed with patient and dwaqis-ra-[id number] again today. We recommended continuation of empiric ursodiol therapy for now (currently ~14 mg/kg) given improvement after initiation and marked AP elevation and potential for AMA-negative PBC (although not supported by biopsy) or immune-mediated cholangiopathy. She has been doing well clin ically, however, and she remains relatively independent with most of her ADLs. She has appeared more animated and interactive since her initial visits which is encouraging, but she would benefit fromcontinue neurologic rehabilitation and consistent PT given reports of low energy levels. Today: HPI Review of Systems Objective Visit Vitals BP 120/68 (BP Location: Left arm, Patient Position: Sitting, BP Cuff Size: Adult) Pulse 81 Temp 96.6 ??F (35.9 ??C) (Oral) Resp 16 Body mass index is 24.66 kg/m??. Physical Exam Constitutional: Appearance: Normal appearance. Cardiovascular: Rate and Rhythm: Normal rate and regular rhythm. Pulses: Dorsalis pedis pulses are 2+ on the right side and 2+ on the left side. Heart sounds: Murmur heard. Pulmonary: Effort: Pulmonary effort is normal. Breath sounds: Normal breath sounds. Abdominal: General: There is no distension. Tenderness: There is no abdominal tenderness. Comments: + splenomegaly, no ascities Musculoskeletal: Cervical back: Normal range of motion and neck supple. Right foot: No deformity or Charcot foot. Left foot: No deformity or Charcot foot. Feet: Right foot: Protective Sensation: 5 sites tested. 5 sites sensed. Skin integrity: Skin integrity normal. Toenail Condition: Right toenails are normal. Left foot: Protective Sensation: 5 sites tested. 5 sites sensed. Skin integrity: Skin integrity normal. Toenail Condition: Left toenails are normal. Skin: Coloration: Skin is jaundiced. Neurological: General: No focal deficit present. Mental Status: She is alert. Psychiatric: Behavior: Behavior normal. 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 [...] not drive), baths or swimming. Awaiting new [employer]IDEO [employer] provider. Daughter aware of how to call 911. Followed by neurologist, -followed by Dr. Jono Eden at [facility]. Next appointment 08/2024 -she self dc???d her aspirin. I recommended she called neurology to get refills on her medication -she has been seizure free with Zonisamide 200 mg nightly and ran out of supplies 6 months ago. I recommend to resume Zonisamide since her risk of recurrent seizure is over 60% due to her prior hemorrhagic stroke. -Saw Neurologist at [facility] 08/20/24, Plan: continue ZNS 200 mg daily and follow up in one year, or sooner if needed. -she has no idea if she is taking this. Med rec referral placed 10/24/24 Relevant Medications zonisamide (Zonegran) 100 MG capsule Other Relevant Orders Referral to Pharmacy MTM End stage liver disease (CMS/HCC) On liver transplant list since December 2023. 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 Etiology unclear. At times she has had a transient hepatitis B positive test, but that might have been passive after blood transfusion. Last HBV PCR January 2017 was negative. She is followed by [facility] Liver [facility]. -liver biopsy 2019 mild, grade 4/18, stage 3/6, with focal nodular change -CT 3 phase 10/2023: hepatic cirrhosis with portosystemic collateral and splenomegaly, new observation in segment 8, continue follow up 3-6 months -seen by Liver Transplant clinic for consideration 09/20/23 in setting of progressive jaundice withmixed hyperbilirubinemia and worsening MELD score. -Seen byTransplant service psychiatrist Emory Sidhu MD on 11/09/23 with Laxmi tapia -Seen by transplant services with Dr. Yasmin Ho MD of [facility] GI 02/2024, note reviewed: She remains active [...] segment 8 without washout or enhancing pseudocapsule, LI- RADS 3, intermediate probability of malignancy. Recommend 3-6 month follow-up MR liver protocol. 2. Subtle nodularity of the hepatic contour compatible with cirrhosis. Sequelae of portal hypertension including splenomegaly, varices, and trace ascites. 3. Cholelithiasis without evidence of acute cholecystitis. 4. Pericardiophrenic lymphadenopathy, which does not appear significantly changed from 202, possibly reactive. -liver biopsy done at [facility] 05/01/24, results pending -liver biopsy results on 05/15/2024 showed cirrhosis of the liver with thickened fibrotic bands stage4/4 -MR abdomen wo/w con 05/23/24 IMPRESSION: 1. [...] Saw Transplant Hepatology and GI specialist at [facility] on 09/11/24. Per note, she remains active onLT waitlist with an updated MELD 3.0 of 19 based on blood work in April 2024. Etiology of her liver disease and progressive jaundice remains unclear despite prior MRI/MRCP and interval liver biopsy inAugust 2023 which was non-specific with non-specific findings which we reviewed with patient and gnenqg-an-qnq again today. We recommended continuation of empiric ursodiol therapy for now (currently ~14 mg/kg) given improvement after initiation and marked AP elevation and potential for AMA-negativePBC (although not supported by biopsy) or immune-mediated cholangiopathy. She has been doing well clinically, however, and she remains relatively independent with most of her ADLs. She has appeared more animated and interactive since her initial visits which is encouraging, but she would benefit from continue neurologic rehabilitation and consistent PT given reports of low energy levels. Relevant Medications ursodiol (Actigall) 300 MG capsule Other Relevant Orders Referral to Pharmacy MTM Type 2 diabetes mellitus (CMS/HCC) -U Mass 02/21/2024 to see endocinology Diabetes [...] from 18-14 by endo 04/2024 Seen by [facility] endocrinology 04/18/24 Hemoglobin A1c is falsely low in the setting of liver disease, but CGM data suggests that her blood sugars are actually quite well-controlled, though with frequentfasting hypoglycemia. Thus, I have recommended decreasing her [...] approval for her to upgrade to the [employer] lilia 3 CGM. Relevant Orders Albumin, Random Urine W/Creatinine Hepatic Function Panel Lipid Panel, Standard Basic Metabolic Panel Referral to Pharmacy MTM Complex care coordination Relevant Orders Referral to Pharmacy MTM Abnormal CT of the abdomen CT abd pelvis ordered by [facility] liver clinic and dated 01/28/24 IMPRESSION: 1. [...] appear significantly changed from 2021, possibly reactive. [facility] [place] not from 02/24/24 Telephone Encounter - Katy Boateng RN 10:24 AM LVM for patient using school nurse, Ari [phone], about results of MRI and scheduling of [...] right anterior medial cardiophrenic enhancing lymph nodes. Other specified health status -next physical exam due after 07/09/25 -eye care facilitated by [facility] -dental home is [facility] -health care proxy paperwork given 10/20/23. Filed 07/09/24 Follow up in about 6 months (around 04/23/2025) for diabetes and liver. I, Jf Beckwith, am serving as a scribe to document services personally performed by Dr. Ricci, based on the patient's response to questions by provider and providers statements to me. documented in this encounter Miscellaneous Notes * Assessment & Plan Note - Sammie Maharaj MD - 10/24/2024 9:48 AM EST Associated Problem(s): Other specified health status -next physical exam due after 07/09/25 -eye care facilitated by [facility] -dental home is [facility] -health care proxy paperwork given 10/20/23. Filed 07/09/24 * Assessment & Plan Note - Sammie Maharaj MD - 10/24/2024 9:48 AM EST Associated Problem(s): Abnormal CT of the abdomen CT abd pelvis ordered by [facility] liver clinic and dated 01/28/24 IMPRESSION: 1. [...] appear significantly changed from 2021, possibly reactive. [facility] [place] not from 02/24/24 Telephone Encounter - Katy Boateng RN 10:24 AM LVM for patient using school nurse, Ari [phone], about results of MRI and scheduling of [...] right anterior medial cardiophrenic enhancing lymph nodes. * Assessment & Plan Note - Sammie Maharaj MD - 10/24/2024 9:47 AM EST Associated Problem(s): End stage liver disease (CMS/HCC) On liver transplant list since December 2023. 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 Etiology unclear. At times she has had a transient hepatitis B positive test, but that might have been passive after blood transfusion. Last HBV PCR January 2017 was negative. She is followed by [facility] Liver [facility]. -liver biopsy 2019 mild, grade 4/18, stage 3/6, with focal nodular change -CT 3 phase 10/2023: hepatic cirrhosis with portosystemic collateral and splenomegaly, new observation in segment 8, continue follow up 3-6 months -seen by Liver Transplant clinic for consideration 09/20/23 in setting of progressive jaundice withmixed hyperbilirubinemia and worsening MELD score. -Seen byTransplant service psychiatrist Emory Sidhu MD on 11/09/23 with Laxmi tapia -Seen by transplant services with Dr. Yasmin Ho MD of [facility] GI 02/2024, note reviewed: She remains active [...] segment 8 without washout or enhancing pseudocapsule, LI- RADS 3, intermediate probability of malignancy. Recommend 3-6 month follow-up MR liver protocol. 2. Subtle nodularity of the hepatic contour compatible with cirrhosis. Sequelae of portal hypertension including splenomegaly, varices, and trace ascites. 3. Cholelithiasis without evidence of acute cholecystitis. 4. Pericardiophrenic lymphadenopathy, which does not appear significantly changed from 2021, possibly reactive. -liver biopsy done at [facility] 05/01/24, results pending -liver biopsy results on 05/15/2024 showed cirrhosis of the liver with thickened fibrotic bands stage4/4 -MR abdomen wo/w con 05/23/24 IMPRESSION: 1. [...] Saw Transplant Hepatology and GI specialist at [facility] on 09/11/24. Per note, she remains active onLT waitlist with an updated MELD 3.0 of 19 based on blood work in April 2024. Etiology of her liver disease and progressive jaundice remains unclear despite prior MRI/MRCP and interval liver biopsy inAugust 2023 which was non-specific with non-specific findings which we reviewed with patient and tehszp-ne-ffp again today. We recommended continuation of empiric ursodiol therapy for now (currently ~14 mg/kg) given improvement after initiation and marked AP elevation and potential for AMA-negativePBC (although not supported by biopsy) or immune-mediated cholangiopathy. She has been doing well clinically, however, and she remains relatively independent with most of her ADLs. She has appeared more animated and interactive since her initial visits which is encouraging, but she would benefit from continue neurologic rehabilitation and consistent PT given reports of low energy levels. 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 [...] not drive), baths or swimming. Awaiting new [employer]IDEO GAME [employer] provider. Daughter aware of how to call 911. Followed by neurologist, -followed by Dr. Jono Eden at [facility]. Next appointment 08/2024 -she self dc???d her aspirin. I recommended she called neurology to get refills on her medication -she has been seizure free with Zonisamide 200 mg nightly and ran out of supplies 6 months ago. I recommend to resume Zonisamide since her risk of recurrent seizure is over 60% due to her prior hemorrhagic stroke. -Saw Neurologist at [facility] 08/20/24, Plan: continue ZNS 200 mg daily and follow up in one year, or sooner if needed. -she has no idea if she is taking this. Med rec referral placed 10/24/24 * Assessment & Plan Note - Sammie Maharaj MD - 10/24/2024 9:41 AM EST Associated Problem(s): Type 2 diabetes mellitus (CMS/[facility]) -U Mass 02/21/2024 to see endocinology Diabetes [...] from 18-14 by endo 04/2024 Seen by [facility] endocrinology 04/18/24 Hemoglobin A1c is falsely low in the setting of liver disease, but CGM data suggests that her blood sugars are actually quite well-controlled, though with frequentfasting hypoglycemia. Thus, I have recommended decreasing her [...] approval for her to upgrade to the freestyle lilia 3 CGM. documented in this encounter Plan of Treatment Upcoming Encounters Date Type Department Care Team (Late st Contact Info) Description 02/25/2025 9:00 AM EDT Office Visit [facility] [address] [place] [address] Darshana Bashir, OD [address] [place] [address] Scheduled Referrals Name Type Priority Associated Diagnoses Orde r Schedule Referral to Pharmacy MT Outpatient Referral Routine Complex partial seizure (CMS/HCC) End stage liver disease (CMS/HCC) Type 2 diabetes mellitus with hyperglycemia, with long-term current use of insulin (CMS/HCC) Complex care coordination Ordered: 10/24/2024 documented as of this encounter Procedures Procedure Name Priority Date/Time Associated Diagnosis Comments ALBUMIN, RANDOM URINE W/CREATININE Routine 11/05/2024 10:20 AM EST Type 2 diabetes mellitus with hyperglycemia, with long-term current use of insulin (CMS/HCC) HEPATIC FUNCTION PANEL Routine 10/24/2024 9:59 AM EST Type 2 diabetes mellitus with hyperglycemia, with long-term current use of insulin (CMS/HCC) LIPID PANEL, STANDARD Routine 10/24/2024 9:59 AM EST Type 2 diabetes mellitus with hyperglycemia, with long-term current use of insulin ([facility]) BASIC METABOLIC PANEL Routine 10/24/2024 9:59 AM EST Type 2 diabetes mellitus with hyperglycemia, with long-term current use of insulin ([facility]) documented in this encounter Results * Albumin, Random Urine W/Creatinine (11/05/2024 10:20 AM EST) Creatinine, Urine 59.34 mg/dL [facility] Microalbumin Urine <5.0 mg/L [facility] Microalbum Creatinine Ratio Ur TNP <30 ug/mg cr [facility] Comment:Unable to calculate albumin/creatinine ratio due to lowmicroalbumin or creatinine result. Urine 11/05/2024 10:2 0 AM EST 11/05/2024 11:21 AM EST Sammie Maharaj MD LAB URINE ORDERABLES Final Result Performing Organization Address [facility] Co de Phone Number [facility] [address] [place] [address] [phone] * (ABNORMAL) Basic Metabolic Panel (10/24/2024 9:59 AM EST) Sodium 140 135 - 145 mmol/L [facility] Potassium 3.4 3.3 - 5.1 mmol/L [facility] Chloride 115(H) 96 - 108 mmol/L [facility] Carbon Dioxide 20(L) 22 - 29 mmol/L [facility] Anion Gap 8(L) 12 - 20 [facility] Urea Nitrogen (BUN) 11 9 - 16 mg/dL [facility] Creatinine, Serum 0.48(L) 0.5 - 1.4 mg/dL [facility] Estimated Glomerular Filt Rate >60 [facility] Comment:Chronic Kidney Disea se: Estimated GFR < 60 mL/min/[id number] Kidney Disease: Estimated GFR < 15 mL/min/1.73m2 Glucose 93 60 - 115 mg/dL [facility] Calcium 8.3(L) 8.4 - 10.2 mg/dL [facility] Blood Venous blood specimen / Unknown 10/24/2024 9:59 AM EST 10/24/2024 11:05 AM EST Sammie Maharaj MD LAB BLOOD ORDERABLES Final Result Performing Organization Address [facility]/ZIP Co de Phone Number [facility] [address] [place] [address] [phone] * (ABNORMAL) Lipid Panel, Standard (10/24/2024 9:59 AM EST) Triglycerides 91 <150 mg/dL [facility] Comment:Mild Icterus.Interpr et result with caution.Desirable Triglyceride: less than 150 mg/dLBorderline High Triglyceride 150-199 mg/dLHigh Triglyceride: 200-499 mg/dLVery High Triglyceride: greater than or equal to 5OO mg/dL Cholesterol 132 <200 mg/dL [facility] Comment:Mild Icterus.Interpr et result with caution.Desirable Cholesterol: less than 200 mg/dLBorderline High Cholesterol: 200-239 mg/dLHigh Cholesterol: greater than 239 mg/dL LDL Cholesterol Calculated 92 <100 mg/dL [facility] Comment:Desirable LDL: less than 100 mg/dLNear Optimal/Above Optimal LDL: 110- 129 mg/dLBorderline High LDL: 130-159 mg/dLHigh LDL: 160-189 mg/dLVery High LDL: greater than or equal to 190 mg/dL HDL Cholesterol 22(L) >40 mg/dL [facility] Comment:Desirable HDL: great er than 40 mg/dL Note: This HDL assay may give artificially low results in patients with liver disease. Blood Venous blood specimen / Unknown 10/24/2024 9:59 AM EST 10/24/2024 11:05 AM EST us Sammie Maharaj MD LAB BLOOD ORDERABLES Final Result [facility] [address] [place] [phone] * (ABNORMAL) Hepatic Function Panel (10/24/2024 9:59 AM EST) Bilirubin, Total 8.2(H) 0.0 - 1.0 mg/dL [facility] Comment:Mild Icterus. Bilirubin, Direct 6.4(H) 0.0 - 0.5 mg/dL [facility] Comment:Mild Icterus. Aspartate Amino Transferase 121(H) 5 - 31 U/L [facility] Alanine Aminotransferase 98(H) 0 - 31 U/L [facility] Total Protein 6.2(L) 6.5 - 8.0 g/dL [facility] Albumin Level 3.0(L) 3.5 - 5.0 g/dL [facility] Alkaline Phosphatase 876(H) 39 - 117 U/L [facility] Blood Venous blood specimen / Unknown 10/24/2024 9:59 AM EST 10/24/2024 11:05 AM EST Sammie Maharaj MD LAB BLOOD ORDERABLES Final Result [facility] [address] [place] [phone] documented in this encounter Visit Diagnoses Diagnosis Complex partial seizure (CMS/HCC)- Primary End stage liver disease (CMS/HCC) Type 2 diabetes mellitus with hyperglycemia, with long-term current use of insulin (CMS/HCC) Complex care coordination Abnormal CT of the abdomen Nonspecific (abnormal) findings on radiological and other examination of abdominal area, including retroperitoneum Other specified health status Tinea unguium Dermatophytosis of nail documented in this encounter Additional Health Concerns Assessment Noted Time PHQ-9 Depression Total Score: 0 10/24/19 9:33 AM EST documented as of this encounter Care Teams [employer] Relationship Specialty Start Date End Date Sammie Maharaj MD [address] [place] [address] PCP - General Family Medicine 10/10/18 Loyda Glaser, RN [address] [place] [phone] Director Of Flight Operations Family Medicine 10/31/23 Yasmin Ho MD [address] [place] [address] Gastroenterology 08/29/24 Manuel Carpenter PA [facility] [address] [facility] [address] Neurology 08/29/24 Paola Tolentino NP [address] [address] Endocrinology 10/24/24 documented as of this encounter
--- OUTSIDE RECORDS SUMMARY | 2024-11-05 14:54 | XMS_ITS | Encounter Summary ---
Author Organization [facility] Address [address] [place] [address] Care Team Providers Care Cashier Credit Name Role Phone Sammie Maharaj MD Primary Care Provider [phone] Loyda Glaser RN Unavailable [phone] Yasmin Ho MD Unavailable Reason for Visit * Reason Onset Date Comments Nurse Triage 09/28/2023 Encounter Details Date Type Department Care Team (Late st Contact Info) Description 09/28/2023 Telephone [facility] MEDICINE [address] [place], [place] [phone] Sammie Maharaj MD [address] [place], [place] [phone] Nurse Triage Social History Tobacco Use Types Packs/Day Years Used Date Smoking Tobacco: Never Smokeless Tobacco: Never Depression Answer Date Recorded Patient Health Questionnaire-9 Score 0 10/24/2024 Patient Health Questionnaire-9 Score 0 10/24/2024 Last PHQ-9: Questionnaire Data Not on file 0 10/24/2024 Housing Stability Answer Date Recorded What is your housing situation today? I have concepcion sing 10/24/[address] you li [...] Telephone Encounter - Olga Cruz RN - 09/28/2023 1:52 PM EST Triage call with [facility] [employer] [place] [id number] Pt reports right hand pain, palm of hand to entire pointer finger. Pt reports I have weak bones .Pt reports a greenish color on the palm of hand to finger. Pt denies any injury. Pt denies open area, redness, swelling, fever, and has never happened before. Pt is unable to close right hand or movethat pointer finger for general use. Pt reports has an apt in October but, would like to see PCP earlier if apt available. Apt with PCP given for 09/29/23 @ 930am. Insurance is verified as active prior to booking. Protocol Used: Hand and Wrist Pain (Adult) Protocol-Based Disposition: See in Office or Video Visit within 3 Days Video visit not offered Positive Triage Questions: * Moderate pain (e.g., interferes with normal activities) and present > 3 days * Patient wants to be seen * All higher-acuity triage questions were negative Care Advice Discussed: * Reassurance and Education - Hand or Wrist Pain * Pain Medicines * Pain Medicines - Extra Notes and Warnings * Expected Course * Reasons To Call Back - Moderate pain (e.g., interferes with normal activities) lasts more than 3 days - Mild pain lasts more than 7 days - Signs of infection occur (e.g., spreading redness, warmth, fever) - You become worse * Telephone Encounter - Panchito Yanez - 09/28/2023 11:55 AM EST Symptom: Finger Pain - Not From Injury Outcome: Schedule an urgent appointment (within 1 hour) or talk to a nurse or provider soon Reason: Severe pain now, states finger looks bruised ( green ) The caller accepted this outcome Please contact at [phone] documented in this encounter Plan of Treatment Upcoming Encounters Date Type Department Care Team (Late st Contact Info) Description 02/25/2025 9:00 AM EDT Office Visit [facility] OPTOMETRY [address] [place] [address] Mckay, Darshana, OD [address] [place] [address] documented as of this encounter Visit Diagnoses Not on filedocumented in this encounter Additional Health Concerns Assessment Noted Time PHQ-9 Depression Total Score: 0 07/28/20 23 9:42 AM EDT documented as of this encounter Care Teams Cashier Credit Relationship Specialty Start Date End Date Sammie Maharaj MD [address] [place] [address] PCP - General Family Medicine 10/10/18 Loyda Glaser RN [address] [place] [address] Hobbing Press Operator Family Medicine 10/31/23 Yasmin Ho MD [address] [place] [phone] Gastroenterology 08/29/24 Manuel Carpenter PA [address] [address] Neurology 08/29/24 Paola Tolentino, ROLL CUTTING OPERATOR [address] [address] Endocrinology 10/24/24 documented as of this encounter
== END 2024-11-05 10:17 | disposition home or self-care (01) ==
LOC: HO.HHCL 10:16
PROVIDERS: Visit Provider Family Medicine
DX: E11.65 Type 2 diabetes mellitus with hyperglycemia (principal); Z79.4 Long term (current) use of insulin
CPT/HCPCS: 82043; 82570

== ENCOUNTER 2024-12-03 11:50 | Outpatient (REF) | payer OTHER, SELFPAY ==
[2024-12-03 12:23] LABS: MANUAL DIFF FLAG NO
[2024-12-03 12:44] LABS: Ammonia 72 umol/L (13-55)
[2024-12-03 12:49] LABS: Basophils Percent Auto 0.3 % (0-2); Eosinophils Absolute Auto 0.1 X10*3/uL (0.0-0.4); Eosinophils Percent Auto 0.7 % (0-4); Hematocrit 38.1 % (37.0-47.0); Hemoglobin 12.9 g/dl (12.0-16.0); Imm Gran Abs Auto 0.04 X10*3/uL (0.00-0.03); Imm Gran Pct Auto 0.6 % (0.0-0.4); Lymphocytes Absolute Auto 0.7 X10*3/uL (1.2-4.9); Lymphocytes Percent Auto 9.2 % (20-40); Mean Corpuscular HGB Conc 33.9 g/dl (31.0-35.0); Mean Corpuscular Hemoglobin 31.5 pg (27.0-33.0); Mean Corpuscular Volume 92.9 fL (80.0-98.0); Monocytes Absolute Auto 0.8 X10*3/uL (0.1-1.2); Monocytes Percent Auto 10.7 % (2-11); Neutrophils Absolute Auto 5.7 x10*3/uL (2.0-8.3); Neutrophils Percent Auto 78.5 % (45-73); Platelet Count 114 X10*3/uL (160-400); Red Cell Distribution Width 13.5 % (11.0-16.0); White Blood Count 7.3 X10*3/uL (4.8-10.8)
[2024-12-03 13:27] LABS: Alanine Aminotransferase 95 U/L (0-31); Alkaline Phosphatase 1064 U/L (39-117); Aspartate Amino Transferase 108 U/L (5-31); Bilirubin Direct 9.3 mg/dL (0.0-0.5); Bilirubin Total 11.9 mg/dL (0.0-1.0); C Reactive Protein 17.87 mg/dL (< or = 0.50); Total Protein 6.8 g/dL (6.5-8.0)
[2024-12-03 13:30] LABS: Erythrocyte Sedimentation Rate 67 MM/HR (0-20)
--- OUTSIDE RECORDS SUMMARY | 2024-12-03 13:39 | XMS_ITS | Encounter Summary ---
Demographics Address [address] [facility] [place] [address] Home Phone Mobile Phone Preferred Language Rwandan; Castilian Marital Status Single Congregation Affiliation Unknown Race Unknown Ethnic Group Unknown Author Organization [facility] Address [address] [place] [address] Support Name Relationship Address Phone Orion Rubio Daughter [address] [facility] [address] [place] [address] Care Team Providers Care Windsmith Name Role Phone Kenney Maharajgus Beckett Primary Care Provider [phone] Reason for Visit * Transplant (Routine) - Authorized Specialty Diagnoses / Procedures Referred By Contmichael t Referred To Contact Transplant Diagnoses Liver Transplant Evaluation Marilee Alexander NP [address] [place] [address] Phone: tel: fax: [facility] Transplant [facility] [address] [place] [address] Phone: tel: fax: Referral ID Status Reason Start Date Expiration Date V isits Requested Visits Authorized [id number] Authorized 09/06/2023 12/13/2025 25 25 Encounter Details Date Type Department Care Team (Late st Contact Info) Description 11/14/2024 10:00 AM EST Social Work [facility] Transplant Services [address] [place] [address] Marissa De La Cruz [address] Transplant [address] [address] Social History Tobacco Use Types Packs/Day Years [...] PM EST documented as of this encounter Progress Notes * Marissa AvelarBernardoBenito, METAL FURNITURE GLAZIER - 11/14/2024 10:00 AM EST LIVER TRANSPLANT PSYCHOSOCIAL REASSESSMENT Identifying information: Patient is a 44-year-old female who is here with her aiyigv-se-tux Laxmi Mas for an annual psychosocial reassessment. Both patient and ewtpwu-hp-lys are Rwandan-speaking. A bilingual interpreter via iPad was used for this evaluation ([employer] ID # [id number]). Patient is active on the waiting list for liver transplant. Patient was reminded of the role of transplant SW, purpose of the reassessment and contact information reiterated. 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 Sister in law previously reported thatpatient had a stroke in 2013 and subsequently can not talk very much. Patient interacted in today'sreassessment by nodding yes and no to questioning. Sister in law provided more details. Social history: Patient lives with her 21 year old daughter (Paula) and and 2 nephews (ages 9 and 14) in a subsidized apartment in [facility]. 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 Patient has an open DCF case. She has been caring for her nephews for the last 5 years. Patient has never been . She has one daughter. Patient does not have any grand children. Patient's sister in law who is here today lives in [place]. Patient was born and raised in [place]. [place] came [place]. Patient has one sister who lives in [place]. She has a brother in [place] and 3 other brothers who were all murdered. Patient's parents are . Patient completed school to the 9th grade. Patient last worked in 2012. She last worked at [employer] and states she stopped because of healthproblems. When asked about interest, ntviyw-sz-zyh states patient's only interest is sleeping all day . Patient denies any voodoo. Financial history: Patient is on Social Security disability and receives about $900 a month. Patient's insurance is [employer] [facility] [employer] ([facility]) which manages her Medicare and [employer] benefits. Patient has subsidized housing. Patient has SNAP/Food stamps. Patient denies any housing or food insecurities. Transplant SW reminded patient regarding the importance of notifying the transplant program of any problems or changes in her insurance to ensure proper coverage for transplant, posttransplant follow-up and posttransplant medications. Support system: Patient does not drive. Vhodtr-kv-paa states she brings patient to all of her medical appointments.Bntseu-uv-kas is here today and seems very supportive. Hhabxg-bj-mjr lives in 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 Transplant SW reminded patient and jeswdj-fi-cus regarding the option of receiving rides through her insurance [facility] ([facility]). Odhzav-up-pen states she is aware of this option but reports patient does not like to use these rides. Yujqfb-tl-wuv states patient does not have anyone else to give her rides. Ntckey-fm-bwp reports that patient daughter helps patient with her medications. Ampbqavy-wk-aqc also helps patient with her activities of daily living in the home. Daughter also works outside the home. Agxhjo-qr-mot does patient's shopping and helps her pay her bills. Transplant SW re-educated patient and xqshyy-cc-kfd regarding the care and supervision the patient would need throughout recovery from liver transplant. Lxquqb-ao-iwa states that she is her main support and patient's daughter who lives in the home is alternate support. Patient needs a lot of support due to limitations she has from a stroke in 2013. Patient is almost non verbal. Sister in law states patient also has a hard time communicating by writing due to problems with her right side making it hard to write. Substance use/substance treatment: Patient denies any current use of alcohol. Uusetv-pz-frg reports patient was never a drinker. Patient denies any past or current use of illicit drugs. Patient does not use any marijuana and never smoked cigarettes. Transplant SW re-educated patient and wcnuvh-hz-akw regarding transplant substance use policy. Per sister in law, patient has never had a problem with alcohol or drug use. Psychiatric history: Sister in law denies patient has a history of inpatient or outpatient mental health treatment. Sister in law denies patient has any past or current problems with depression, anxiety any mood concerns. Patient denies any current mental health concerns. Sister in law states patient is not on any psychiatric medication. When asked about trauma history, pcobdg-pq-cha reports patient has had a lot of stress due to losing 3 of her brothers to murder around the same time. Also around the same time patient had a stroke which has left her with several deficits. Tzgdun-wn-oir states the patient mainly of natasha by sleeping . Mental status: Patient is casually dressed, no unusual behaviors or movements noted. Patient is cooperative but minimally interactive in the interview only nods at times when asked a direct yes or no question. Speech is almost non verbal. Affect is flat. Impression: Patient is a 44-year-old single female who is active on the waiting list for liver transplant. She is here with her sister in law for an annual psychosocial reassessment. Patient and sister in law confirm that nothing has changed since initial psychosocial reassessment in October 2023. According tothe record patient has a history of cryptogenic cirrhosis. Transplant SW re-educated patient and fwzjtr-qg-iqe regarding the issues and commitment involved with liver transplantation including the importance of compliance with posttransplant follow-up appointments, lab work and taking immunosuppressive medication. Transplant SW re-educated patient regarding the psychosocial risks of transplant including the risk for emotional reactions such as depression, anxiety, PTSD, guilt over dependence onothers and the potential for difficulty accessing private life, health or disability insurance following transplant. Patient participated in interview by nodding yes or no to questions. Her lcokwe-tj-dzv states that she does not speak very much due to a stroke that she had in 2013. Hvwfvt-nh-jek is here today and states that commitment to being patient's primary pharmaceutical analyst throughout recovery from transplant. Qxkksu-uz-arb is also is currently very involved in patient's care bringing her to all of her appointments. In addition patient has support from her 21-year-old daughter who lives in the home. Imagdv-jo-rgq states patient would like a liver transplant. Sister in law states patient would like to feel less tired and would like to feel better from a liver perspective. Patient does not have any substance use concerns. Patient denies any mental health barriers to transplant. Patient has a stable home and denies any financial or insurance obstacles to transplant. Provided patient has the ongoing strong support of her family specifically tmtjzm-lu-pjs and daughter, patient continues to meet criteria for liver transplantation from a psychosocial perspective. Plan: 1. Patient maintains a healthcare proxy form on file in [employer] and chose her vevoog-qh-wzl Laxmi Mas as her healthcare agent ([phone]). Patient states she does not wish to make any changes. 2. Patient maintains a release of information form on file in [employer] allowing sharing of health information with her sister in law Laxmi Mas. 3. Patient and sister in law were reminded regarding the virtual liver transplant support group. 4. Transplant SW will continue to follow patient with transplant team and provide psychosocial support as necessary. documented in this encounter Plan of Treatment Upcoming Encounters Date Type Department Care Team (Late st Contact Info) Description 01/08/2025 8:00 AM EDT Follow-Up [facility] Liver Transplant Services [address] [place] [address] Yasmin Ho MD [address] [place] [phone] 03/22/2025 3:30 PM EDT Office Visit [facility] [address] [place] [address] Metal Finisher: Natasha Rubalcava MD [address] [place] [address] 07/17/2025 8:00 AM EDT Office Visit [facility] [address] [place] [address] Metal Finisher: Paola Vance NP [address] [place] [phone] 08/06/2025 8:00 AM EDT Office Visit [facility] [address] [place], [place] [phone] Manuel Carpenter PA [address] [place] [address] documented as of this encounter Visit Diagnoses Not on filedocumented in this encounter Care Teams Windsmith Relationship Specialty Start Date End Date [place], Sammie Beckett [address] [place] [address] PCP - General Family Medicine 05/15/18 documented as of this encounter
--- OUTSIDE RECORDS SUMMARY | 2024-12-03 13:39 | XMS_ITS | Encounter Summary ---
Demographics Address [address] [facility] [address] [place] [address] Home Phone Mobile Phone Preferred Language Latvian; Castilian Marital Status Single Mu-Ism Affiliation Unknown Race Unknown Ethnic Group Unknown Author Organization [facility] Address [address] [place] [address] Support Name Relationship Address Phone Orion Rubio Daughter [address] [facility] [address] [place] [address] Care Team Providers Care Spectral Scientist Name Role Phone Nicko Sammie Beckett Primary Care Provider [phone] Reason for Visit * Consultation (Routine) - Authorized Specialty Diagnoses / Procedures Referred By Contac t Referred To Contact Diagnoses Encounter for pre-transplant evaluation for liver transplant Type 2 diabetes mellitus with hyperglycemia, without long-term current use of insulin (HCC) Yasmin Ho MD [address] [place] [address] Phone: tel: fax: Natasha Kramer MD [address] [place] [address] Phone: tel: fax: Referral ID Status Reason Start Date Expiration Date Visits Requested Visits Authorized [id number] Authorized Specialty Services Required 12/15/2023 06/15/2025 6 6 Encounter Details Date Type Department Care Team (Late st Contact Info) Description 11/14/2024 8:00 AM EST Office Visit [facility] [address] [place] [address] Water Service Supervisor: Paola Vance NP [address] [facility] [place] [address] Type 2 diabetes mellitus without complication, with long-term current use of insulin (CMS/HCC) (HCC) (Primary Dx) Social History Tobacco Use Types [...] PM EST documented as of this encounter Last Filed Vital Signs Vital Sign Reading Time Taken Comments Blood Pressure 116/72 11/14/2024 8:06 AM EST Pulse 69 11/14/2024 8:06 AM EST Temperature - - Respiratory Rate - - Oxygen Saturation - - Inhaled Oxygen Concentration - - Weight 52.7 kg (116 lb 2.9 oz) 11/14/2024 8:06 A M EST Height 144.8 cm (4' 9 ) 11/14/2024 8:06 AM EST Body Mass Index 25.14 11/14/2024 8:06 AM EST documented in this encounter Patient Instructions * Patient Instructions* Paola Tolentino NP - 11/14/2024 8:30 AM EST Decrease lantus insulin to 10 units at bedtime If blood sugar is less than 70 you need to take 15 grams of carbohydrate ( a packet of fruit snacks, 4 glucose tablets, toast with jam, 4 ounces of apple juice are all examples of what to eat. Eating meat will not make your blood sugar go high. documented in this encounter Progress Notes * Paola Tolentino NP - 11/14/2024 7:47 AM EST Images from the original note were not included. Date of Visit: 11/14/2024 Location: [facility] Aubrie Mario is a 44 y.o. female here to follow-up on diabetes management. Heater Engineer Helper Heater Engineer Helper Used: Yes Type of Heater Engineer Helper Used: Video Heater Engineer Helper Heater Engineer Helper Name/Number: [id number] Information Interpreted : Outpatient Visit Diabetes Care Team: ; Natasha Kramer MOTION STUDY ANALYST: Paola Tolentino CDCES: none yet CC: checking in on diabetes. HPI: Aubrie Mario is a 44 y.o. female here for evaluation of management of type 2 diabetes . Aubrie lives with her daughter and 2 school aged nephews. 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 Lindy is on the liver transplant waitlist for cryptogenic cirrhosis s/p variceal bleed after TIPS (2013). Diabetes diagnosed in 2020 Current medications for diabetes: Lantus 14 units at bedtime Previous medications for diabetes:none Diabetes complications: none PMH: s/p stroke (2012) with aphasia, difficulty responding in full sentences but she does understand when spoken to; cirrhosis, portal hypertension, seizure disorder, BPPV, insomnia, s/p variceal bleed Checking blood glucose with [employer] [place] CMG. CMG demonstrates 78 % time in range the last 30 days however she is having significant hypoglycemiaespecially overnight. She is asymptomatic with the hypoglycemia most of the time. Positive hypoglycemia with no symptoms. No tingling/numbness in feet. Last eye exam January 2024 with no report of retinopathy. Diet: daughter controls what she can eat; won't let her eat meat which Aubrie finds frustrating.Notes her weight is up a little which she isn't happy with. Also notes increased appetite. Hs notcutir. Physical activity:Sedentary. Very low energy. Has new puppy which she is playing with so that is getting her a bit more active. Current Medications cholecalciferol (VITAMIN D3) 1,250 mcg (50,000 unit) capsule TAKE 1 CAPSULE BY MOUTH ONE TIME PER WEEK ciclopirox (PENLAC) 8 % solution SMARTSIG:Topical Every Night ferrous gluconate 324 mg tablet Take 324 mg by mouth daily with breakfast. lactulose 10 gram/15 mL solution Take 30 mL (20 g total) by mouth 3 times a day. Lantus Solostar U-100 Insulin 100 unit/mL (3 mL) insulin pen injection Inject 14 Units under the skin nightly. omeprazole (PriLOSEC) 20 mg capsule SMARTSI Capsule(s) By Mouth Daily ursodioL (ACTIGALL) 250 mg tablet TAKE 1 TABLET BY MOUTH THREE TIMES A DAY vitamin A 3,000 mcg (10,000 unit) capsule TAKE 1 CAPSULE BY MOUTH ONCE A DAY. zonisamide (ZONEGRAN) 100 mg capsule TAKE 2 CAPSULES (200 MG TOTAL) BY MOUTH AT BED TIME. Allergies Allergen Reactions Latex Rash Social History: reports that she has never smoked. She has never used smokeless tobacco. She reports that she does not drink alcohol and does not use drugs. Vitals: 11/14/24 0806 BP: 116/72 BP Location: Right arm Patient Position: Sitting Pulse: 69 Weight: 52.7 kg (116 lb 2.9 oz) Height: 1.448 m (4' 9 ) body mass index is 25.14 kg/m??. Physical Exam Constitutional: General: She is not in acute distress. Appearance: She is not ill-appearing. Cardiovascular: Rate and Rhythm: Normal rate and regular rhythm. Pulses: Normal pulses. Heart sounds: Normal heart sounds. Pulmonary: Effort: Pulmonary effort is normal. Breath sounds: Normal breath sounds. Neurological: Mental Status: She is alert. Lower extremities: Skin intact both feet. Pedal pulses 2+ bilaterally. Vibratory sensation intact and monofilament testing normal bilaterally. LABORATORY DATA: Latest Ref Rng & Units 11/14/2024 7:40 AM 04/26/2024 2:32 PM 09/20/2023 12:40 PM HgbA1c Hemoglobin A1C <5.7 % of total Hgb 6.6 Hemoglobin A1C, POCT <=5.6 % 4.2 4.2 A1C likely falsely low given liver disease* Latest Ref Rng & Units 09/11/2024 9:08 AM 08/27/2024 9:12 AM 08/08/2024 9:15 AM Creatinine Creatinine 0.50 - 1.20 mg/dL 0.67 0.61 0.57 EGFR >=60 mL/min/1.73m2 >90 This result is from an external source. Latest Ref Rng & Units 09/20/2023 12:40 PM 01/14/2014 2:30 AM 03/30/2010 10:49 AM Lipids Cholesterol <200 mg/dL 162 123 214 Triglycerides <150 mg/dL 133 97 Cholesterol, HDL 40 - 59 mg/dL 30 16 LDL Cholesterol <100 mg/dL 105 88 Latest Ref Rng & Units 04/26/2024 4:22 PM Diabetes Diagnostic Labs IA-2 Antibody <5.4 U/mL <5.4 CARLOS-65 Antibody <5 IU/mL <5 C-peptide 0.80 - 3.85 ng/mL 4.00 ASSESSMENT/PLAN: Type 2 Diabetes with hypoglycemia. A1c likely falsely low given liver disease. CGM proving data over last month suggests average glucose of 123 mg/dL. She is having too much hypoglycemia - and she has hypoglycemia unawareness so use of CGM is essential. Will decrease lantus to 10 units nightly. Physical activity: Energy is low presumably because of liver disease. New puppy has her being bit more active. DIET -frustrated that her daughter is limiting her food intake. I gave her some written informationto take home and share with her daughter on healthy snacks and healthy carbohydrates. Offered appointment for she and her daughter to meet with CDCEs to review nutrition but she says her daughter won't be able to make appointment because of her work schedule. Blood pressure at goal. Continue to monitor. Hyperlipidemia: Aubrie is currently on no medications. Given risk for ASCVD target for LDL cholesterol is <70 (their most recent LDL was 105 mg/dL (09/20/2023). However, given current status of liver will not recommend statin at this time. Patient Instructions Decrease lantus insulin to 10 units at bedtime If blood sugar is less than 70 you need to take 15 grams of carbohydrate ( a packet of fruit snacks, 4 glucose tablets, toast with jam, 4 ounces of apple juice are all examples of what to eat). Eating meat will not make your blood sugar go high. Follow up with Dr. Kramer as scheduled in 4 months. Paola Tolentino NP documented in this encounter Plan of Treatment Upcoming Encounters Date Type Department Care Team (Late st Contact Info) Description 01/08/2025 8:00 AM EDT Follow-Up [facility] [address] [place] [address] [phone] Yasmin Ho MD [address] [place] [phone] 03/22/2025 3:30 PM EDT Office Visit [facility] [address] [place] [phone] Water Service Supervisor: Natasha Rubalcava MD [address] [place] [phone] 07/17/2025 8:00 AM EDT Office Visit [facility] [address] [place] [phone] Water Service Supervisor: Paola Vance NP [address] [place] [phone] 08/06/2025 8:00 AM EDT Office Visit [facility] [address] [place] [phone] Manuel Carpenter PA [address] [place] [phone] documented as of this encounter Procedures * Due to [facility] law, this organization might not be sharing negative HIV tests. Procedure Name Priority Date/Time Associated Diagnosis Comments POCT GLYCOSYLATED HEMOGLOBIN (HGB A1C) Routine 11/14/2024 7:40 AM EST documented in this encounter Results * Due to [facility] law, this organization might not be sharing negative HIV tests. * POCT Glycosylated Hemoglobin (HGB A1C), interfaced (11/14/2024 7:40 AM EST) Hemoglobin A1C, POCT 4.2 <=5.6 % 11/14/2024 8:12 AM EST [facility] Comment: A1C Recommendation for Non- Adults with Diabetes: <7.0% ADA 2011 Standards of Medical Care in Diabetes Blood 11/14/2024 7:40 AM EST 11/14/2024 8:12 AM EST us Paola J. Rajan MOTION STUDY ANALYST LAB POCT ORDERABLES - DEVICE Final Result [facility] [address] [place] [address], documented in this encounter Visit Diagnoses Diagnosis Type 2 diabetes mellitus without complication, with long-term current use of insulin (CMS/HCC) (HCC)- Primary documented in this encounter Care Teams Spectral Scientist Relationship Specialty Start Date End Date [place] thom[place] [address] [place] [phone] PCP - General Family Medicine 05/15/18 documented as of this encounter
--- OUTSIDE RECORDS SUMMARY | 2024-12-03 13:39 | XMS_ITS | Encounter Summary ---
Author Organization [employer] [facility] Address [address] [place] [address] Care Team Providers Care Pie Filler Name Role Phone Nicko, Sammie JOHNSON Primary Care Provider [phone] Loyda Glaser RN Unavailable [phone] Yasmin Ho MD Unavailable [phone] Reason for Visit * Reason Comments Facial Swelling Encounter Details Date Type Department Care Team (Late st Contact Info) Description 12/03/2024 11:00 AM EST Office Visit [facility] [address] [place], [place] [phone] Rocio Bell MD [address], [place] [phone] Atopic dermatitis in adult (Primary Dx); End stage liver disease (CMS/HCC) Social History [...] Sign Reading Time Taken Comments Blood Pressure 116/68 12/03/2024 10:39 AM EST Pulse 89 12/03/2024 10:39 AM EST Temperature 37.4 ??C (99.3 ??F) 12/03/2024 10:[address] Respiratory Rate 16 12/03/2024 10:39 AM EST Oxygen Saturation 99% 12/03/2024 10:39 AM EST Inhaled Oxygen Concentration - - Weight 51.4 kg (113 lb 6.4 oz) 12/03/2024 10:39 AM EST Height 147.3 cm (4' 10 ) 12/03/2024 10:39 AM EST Body Mass Index 23.7 12/03/2024 10:39 AM EST documented in this encounter Progress Notes * Rocio Bell MD - 12/03/2024 11:00 AM EST Images from the original note were not included. SUBJECTIVE: Aubrie Chery is a 44 y.o. year old female who presents for Walk In Center/face sweeling . Denies recent illness, injury, or hospitalization. Acute Concerns: Patient here with her [id number]-brk, complaining of facial swelling and erythema and eye itchiness for the past 3 days. No fever, nausea, shortness of breath chest pain. She has noted herself with increased icterus, no abdominal pain nausea vomiting. She has not had any r similar symptoms in the past, she has not started on any medication. She has not had any recent seizures in more than a year, and takes vitamin A daily. She is compliant with her medications. Her blood sugars at home range anywhere between 100 140s, no hypoglycemia. She has been using a new facial cream for about a month every night. 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 HENT: Positive for facial swelling. Negative for congestion, ear pain, nosebleeds, rhinorrhea, sinus pressure, sore throat and trouble swallowing. Eyes: Positive for itching. Negative for pain and discharge. Respiratory: Negative for cough, chest tightness and shortness of breath. Cardiovascular: Negative for chest pain, palpitations and leg swelling. Gastrointestinal: Negative for abdominal pain, blood in stool, constipation, diarrhea and nausea. Endocrine: Negative for polydipsia and polyuria. Genitourinary: Negative for dysuria, frequency, genital sores, pelvic pain and vaginal discharge. Musculoskeletal: Negative for back pain and neck pain. Skin: Positive for rash. Allergic/Immunologic: Negative for environmental allergies. Neurological: Negative for dizziness, seizures, weakness, light-headedness and headaches. Hematological: Negative for adenopathy. Psychiatric/Behavioral: Negative for agitation, behavioral problems, self-injury and suicidal ideas. OBJECTIVE: Vitals: 12/03/24 1039 BP: 116/68 Pulse: 89 Resp: 16 Temp: 99.3 ??F (37.4 ??C) SpO2: 99% Physical Exam HENT: Right Ear: Tympanic membrane and ear canal normal. Left Ear: Tympanic membrane and ear canal normal. Mouth/Throat: Mouth: Mucous membranes are moist. Pharynx: No oropharyngeal exudate or posterior oropharyngeal erythema. Eyes: General: Scleral icterus present. Extraocular Movements: Extraocular movements intact. Pupils: Pupils are equal, round, and reactive to light. Comments: Palpebral erythema bilateral Butterfly erythema and desquamation on malar areas, forehead and nasolabial folds extending to her chin. Cardiovascular: Rate and Rhythm: Regular rhythm. Pulses: Normal pulses. Heart sounds: Normal heart sounds. No murmur heard. Pulmonary: Breath sounds: Normal breath sounds. Abdominal: General: Bowel sounds are normal. Palpations: Abdomen is soft. Tenderness: There is no abdominal tenderness. Musculoskeletal: General: Normal range of motion. Cervical back: Neck supple. Skin: General: Skin is warm. Neurological: General: No focal deficit present. Mental Status: She is alert and oriented to person, place, and time. Psychiatric: Mood and Affect: Mood normal. Behavior: Behavior normal. , Problem List Items Addressed This Visit Atopic dermatitis in adult - Primary Unclear if related to Vit A vs Zonisamide. Advised to hold Vit A and topical creams, continue zonisamide for now. Take prednisone 20 mg x 5 days, will order baseline LFTs and CBC with sed rate. Follow-up in 2 days for health status check and refer to dermatology if needed. I spoke with Liz at [facility] liver transplant clinic, explained the situation and ask them to run the pictures and case by inorganic chemistry professor in case this is not related to liver disease which she is unlikely. Relevant Orders CBC auto differential Sed Rate by Modified Westergren Hepatic Function Panel C-reactive Protein End stage liver disease (CMS/HCC) Relevant Orders Ammonia, Plasma Follow Up: Current Outpatient Medications on File Prior to Visit Medication Sig Dispense Refill beta carotene (vitamin A) 3 MG (53807 UT) capsule Take 1 capsule by mouth Once per day. insulin glargine (Lantus SoloStar) 100 UNIT/ML pen Inject 18 Units under the skin at bedtime. 15 mL3 ursodiol (Actigall) 250 MG tablet Take 1 tablet by mouth 3 times daily. zonisamide (Zonegran) 100 MG capsule Take 100 mg by mouth Once per day. Two tab po qhs No current facility-administered medications on file prior to visit. documented in this encounter Miscellaneous Notes * Assessment & Plan Note - Rocio Bell MD - 12/03/2024 11:46 AM EST Associated Problem(s): Atopic dermatitis in adult Unclear if related to Vit A vs Zonisamide. Advised to hold Vit A and topical creams, continue zonisamide for now. Take prednisone 20 mg x 5 days, will order baseline LFTs and CBC with sed rate. Follow-up in 2 days for health status check and refer to dermatology if needed. I spoke with Liz at [facility] liver transplant clinic, explained the situation and ask them to run the pictures and case by inorganic chemistry professor in case this is not related to liver disease which she is unlikely. documented in this encounter Plan of Treatment Upcoming Encounters Date Type Department Care Team (Late st Contact Info) Description 02/25/2025 9:00 AM EDT Office Visit [facility] [address] [place] [address] Mckay, Darshana, OD [address] [place] [address] documented as of this encounter Procedures Procedure Name Priority Date/Time Associated Diagnosis Comments CBC WITH AUTO DIFFERENTIAL Routine 12/03/2024 12:21 PM EST Atopic dermatitis in adult SED RATE BY MODIFIED WESTERGREN Routine 12/03/2024 12:21 PM EST Atopic dermatitis in adult C-REACTIVE PROTEIN Routine 12/03/2024 12 :21 PM EST Atopic dermatitis in adult AMMONIA (P) Routine 12/03/2024 12:21 PM EST End stage liver disease (CMS/HCC) HEPATIC FUNCTION PANEL Routine 12/03/2024 12:21 PM EST Atopic dermatitis in adult documented in this encounter Results * (ABNORMAL) Ammonia, Plasma (12/03/2024 12:21 PM EST) Ammonia (P) 72(H) 13 - 55 umol/L [facility] Blood Venous blood specimen / Unknown 12/03/2024 12:21 PM EST 12/03/2024 12:21 PM EST Rocio Bell MD LAB BLOOD ORDERABLES Fin al Result Performing Organization Address [facility]/ZIP Co de Phone Number [facility] [address] [place] [phone] * (ABNORMAL) C-reactive Protein (12/03/2024 12:21 PM EST) Pathologist [facility] C Reactive Protein 17.87(H) < or = 0.50 mg/dL [facility] Blood Venous blood specimen / Unknown 12/03/2024 12:21 PM EST 12/03/2024 12:21 PM EST Rocio Bell MD LAB BLOOD ORDERABLES Fin al Result Performing Organization Address City/[facility] Co de Phone Number [facility] [address] [place] [phone] * (ABNORMAL) Hepatic Function Panel (12/03/2024 12:21 PM EST) Bilirubin, Total 11.9(H) 0.0 - 1.0 mg/dL [facility] Comment:Mild Icterus. Bilirubin, Direct 9.3(H) 0.0 - 0.5 mg/dL [facility] Comment:Mild Icterus. Aspartate Amino Transferase 108(H) 5 - 31 U/L [facility] Alanine Aminotransferase 95(H) 0 - 31 U/L [facility] Total Protein 6.8 6.5 - 8.0 g/dL [facility] Albumin Level 3.0(L) 3.5 - 5.0 g/dL [facility] Alkaline Phosphatase 1,064(H) 39 - 117 U/L [facility] Blood Venous blood specimen / Unknown 12/03/2024 12:21 PM EST 12/03/2024 12:21 PM EST Rocio Bell MD LAB BLOOD ORDERABLES Fin al Result Performing Organization Address [facility] Co de Phone Number [facility] [address] [place] [phone] * (ABNORMAL) Sed Rate by Modified Delanoergren (12/03/2024 12:21 PM EST) Erythrocyte Sedimentation Rate 67(H) 0 - 20 MM/HR [facility] Comment:Patients with polycy themia and many hemoglobin abnormalitiesmay have depressed sed rates whereas patients with anemiamay have elevated sed rates. Blood Venous blood specimen / Unknown 12/03/2024 12:21 PM EST 12/03/2024 12:21 PM EST Rocio Bell MD LAB BLOOD ORDERABLES Fin al Result Performing Organization Address [facility] Co de Phone Number [facility] [address] [place] [phone] * (ABNORMAL) CBC auto differential (12/03/2024 12:21 PM EST) White Blood Count 7.3 4.8 - 10.8 X10*3/uL [facility] Red Blood Count 4.10(L) 4.20 - 5.50 X10*6/uL [facility] Hemoglobin 12.9 12.0 - 16.0 g/dl [facility] Hematocrit 38.1 37.0 - 47.0 % [facility] Mean Corpuscular Volume 92.9 80.0 - 98.0 fL [facility] Mean Corpuscular Hemoglobin 31.5 27.0 - 33.0 pg [facility] Mean Corpuscular HGB Conc 33.9 31.0 - 35.0 g/dl [facility] Red Cell Distribution Width 13.5 11.0 - 16.0 % [facility] Platelet Count 114(L) 160 - 400 X10*3/uL [facility] Mean Platelet Volume 13.0(H) 9.4 - 12.3 fL [facility] Neutrophils Percent Auto 78.5(H) 45 - 73 % [facility] Imm Gran Pct Auto 0.6(H) 0.0 - 0.4 % [facility] Lymphocytes Percent Auto 9.2(L) 20 - 40 % [facility] Monocytes Percent Auto 10.7 2 - 11 % [facility] Eosinophils Percent Auto 0.7 0 - 4 % [facility] Basophils Percent Auto 0.3 0 - 2 % [facility] NRBC Pct Auto 0.0 0.0 - 0.2 /100WBC [facility] Neutrophils Absolute Auto 5.7 2.0 - 8.3 x10*3/uL [facility] Imm Gran Abs Auto 0.04(H) 0.00 - 0.03 X10*3/uL [facility] Lymphocytes Absolute Auto 0.7(L) 1.2 - 4.9 X10*3/uL [facility] Monocytes Absolute Auto 0.8 0.1 - 1.2 X10*3/uL [facility] Eosinophils Absolute Auto 0.1 0.0 - 0.4 X10*3/uL [facility] Basophils Absolute Auto 0.0 0.0 - 0.2 X10*3/uL [facility] NRBC Abs Auto 0.000 0.0 - 0.012 X10*3/uL [facility] Blood Venous blood specimen / Unknown 12/03/2024 12:21 PM EST 12/03/2024 12:21 PM EST us Rocio Bell MD LAB BLOOD ORDERABLES Fin al Result [facility] [address] [place] [phone] documented in this encounter Visit Diagnoses Diagnosis Atopic dermatitis in adult- Primary End stage liver disease (CMS/HCC) documented in this encounter Additional Health Concerns Assessment Noted Time PHQ-9 Depression Total Score: 0 10/24/19 25 9:33 AM EST documented as of this encounter Care Teams Pie Filler Relationship Specialty Start Date End Date Sammie Maharaj MD [address] [place] [address] PCP - General Family Medicine 10/10/18 Loyda Glaser RN [address] [place] [address] Barn Operator Family Medicine 10/31/23 Yasmin Ho MD [address] [place] [address] Gastroenterology 08/29/[address] [facility] [address] [facility] [address] Neurology 08/29/24 Paola Tolentino, HEBERT [address] [address] Endocrinology 10/24/24 documented as of this encounter
--- OUTSIDE RECORDS SUMMARY | 2024-12-03 13:39 | XMS_ITS | Encounter Summary ---
Demographics Address [address] [facility] [address] [place] [address] Home Phone Mobile Phone Preferred Language Pashto; Castilian Marital Status Single Anglican Affiliation Unknown Race Unknown Ethnic Group Unknown Author Organization [facility] Address [address] [place] [address] Support Name Relationship Address Phone Orion Rubio Daughter [address] [facility] [address] [place] [address] Care Team Providers Care Novelty Dipper Name Role Phone Sammie Maharaj Primary Care Provider [phone] Encounter Details Date Type Department Care Team (Late st Contact Info) Description 11/28/2024 Telephone [facility] Transplant Department [address] [place] [address] Katy Boateng RN Social History Tobacco Use Types Packs/Day Years [...] PM EST documented as of this encounter Miscellaneous Notes * Telephone Encounter - Katy Boateng RN - 11/28/2024 1:45 PM EST LVM for patient about getting mammogram and reminded about upcoming appt with CT scan and need for labs. documented in this encounter Plan of Treatment Upcoming Encounters Date Type Department Care Team (Late st Contact Info) Description 01/08/2025 8:00 AM EDT Follow-Up [facility] Liver Transplant Services [address] [place] [address] Yasmin Ho MD [address] [place] [address] 03/22/2025 3:30 PM EDT Office Visit [facility] [address] [place] [address] Elevator Repairer: Natasha Rubalcava MD [address] [place] [address] 07/17/2025 8:00 AM EDT Office Visit [facility] [address] [place] [address] Elevator Repairer: Paola Vance NP [address] [place] [address] 08/06/2025 8:00 AM EDT Office Visit [facility] [address] [place] [address] Manuel Carpenter PA [address] [place] [address] Scheduled Orders Name Type Priority Associated Diagnoses Orde r Schedule Protime-INR Lab Routine Cryptogenic cirrhosis (CMS/HCC) (HCC) Expected: 11/28/2024, Expires: 11/28/2025 CBC Auto Differential Lab Routine Cryptogenic cirrhosis (CMS/HCC) (HCC) Expected: 11/28/2024, Expires: 11/28/2025 AFP Tumor Marker Lab Routine Cryptogenic cirrhosis (CMS/HCC) (HCC) Expected: 11/28/2024, Expires: 11/28/2025 Comprehensive Metabolic Panel Lab Routine Cryptogenic cirrhosis (CMS/HCC) (HCC) Expected: 11/28/2024, Expires: 11/28/2025 documented as of this encounter Visit Diagnoses Diagnosis Cryptogenic cirrhosis (CMS/HCC) (HCC)- Primary Cirrhosis of liver without mention of alcohol documented in this encounter Care Teams Novelty Dipper Relationship Specialty Start Date End Date [place], Sammie Beckett [address] [place] [address] PCP - General Family Medicine 05/15/18 documented as of this encounter
--- OUTSIDE RECORDS SUMMARY | 2024-12-03 13:39 | XMS_ITS | Encounter Summary ---
Demographics Address [address] [facility] [address] [place] [address] Home Phone Mobile Phone Preferred Language Portuguese; Castilian Marital Status Single Mandaeism Affiliation Unknown Race Unknown Ethnic Group Unknown Author Organization [facility] Address [address] [place] [address] Support Name Relationship Address Phone Orion Rubio Daughter [address] [facility] [address] [place] [address] Care Team Providers Care Slasher Runner Name Role Phone Sammie Maharaj Primary Care Provider [phone] Reason for Visit * Reason Comments Med Refill Encounter Details Date Type Department Care Team (Late st Contact Info) Description 11/13/2024 Refill [facility] Liver Transplant Services [address] [place] [address] Yasmin Ho MD [address] [place] [address] Social History Tobacco Use Types Packs/Day Years [...] Info) Description 01/08/2025 8:00 AM EDT Follow-Up [facility] Transplant Services [address] [place] [address] Yasmin Ho MD [address] [place] [address] 03/22/2025 3:30 PM EDT Office Visit [facility] [address] [place] [address] Credit Risk Review Officer: Natasha Rubalcava MD [address] [place] [address] 07/17/2025 8:00 AM EDT Office Visit [facility] [address] [place] [address] Credit Risk Review Officer: Paola Vance NP [address] [place] [address] 08/06/2025 8:00 AM EDT Office Visit [facility] [address] [place] [address] Manuel Carpenter PA [address] [place] [address] documented as of this encounter Visit Diagnoses Not on filedocumented in this encounter Care Teams Slasher Runner Relationship Specialty Start Date End Date Sammie Maharaj [address] [place] [address] PCP - General Family Medicine 05/15/18 documented as of this encounter
--- OUTSIDE RECORDS SUMMARY | 2024-12-03 13:40 | XMS_ITS | Encounter Summary ---
Author Organization [employer] [facility] Address [address] [facility] 7t [place] [address] Care Team Providers Care Shipbuilding Draftsperson Name Role Phone [place], Sammie JOHNSON Primary Care Provider [phone] Loyda Glaser RN Unavailable [phone] Yasmin Ho MD Unavailable [phone] Encounter Details Date Type Department Care Team (Late st Contact Info) Description 12/01/2022 Orders Only [facility] MEDICINE [address] [place] [address] Ericka Osei MD [address] [place] [address] Visual problems (Primary Dx) Social History Tobacco [...] Description 02/25/2025 9:00 AM EDT Office Visit [facility] [address] [place], [place] [phone] Mckay, Darshana, OD [address] [place] [address] documented as of this encounter Visit Diagnoses Diagnosis Visual problems- Primary documented in this encounter Care Teams Shipbuilding Draftsperson Relationship Specialty Start Date End Date Nicko, Sammie, MD [address] [place] [address] PCP - General Family Medicine 10/10/18 Loyda Glaser, RN [address] [place] [address] Director Strategic Account Management Family Medicine 10/31/23 Yasmin Ho MD [address] [place] [address] Gastroenterology 08/29/24 Manuel Carpenter PA [facility] [address] [facility] [address] Neurology 08/29/24 Paola Tolentino, CABLE INSTALLER REPAIRER HELPER [address] [address] Endocrinology 10/24/24 documented as of this encounter
--- OUTSIDE RECORDS SUMMARY | 2024-12-03 13:40 | XMS_ITS | Encounter Summary ---
Demographics Address [address] [facility] [address] [place] [address] Home Phone Mobile Phone Preferred Language Greek; Castilian Marital Status Single Muslim Affiliation Unknown Race Unknown Ethnic Group Unknown Author Organization [facility] Address [address] [place] [address] Support Name Relationship Address Phone Orion Rubio Daughter [address] [facility] [address] [place] [address] Care Team Providers Care Inserter Name Role Phone Sammie Maharaj Primary Care Provider [phone] Encounter Details Date Type Department Care Team (Late st Contact Info) Description 09/12/2024 Orders Only [facility] Interventional Radiology [address] [place] [address] Eugene Warren MD [address] [place] [address] Social History Tobacco Use Types Packs/Day Years [...] Info) Description 01/08/2025 8:00 AM EDT Follow-Up [facility] Liver Transplant Services [address] [place] [address] Yasmin Ho MD [address] [place] [address] 03/22/2025 3:30 PM EDT Office Visit [facility] [address] [place] [address] Operating Table Assembler: Natasha Rubalcava MD [address] [place] [address] 07/17/2025 8:00 AM EDT Office Visit [facility] [address] [place] [address] Operating Table Assembler: Paola Vance NP [address] [place] [address] 08/06/2025 8:00 AM EDT Office Visit [facility] Neurology Clinic [address] [place] [address] Manuel Carpenter PA [address] [place] [address] documented as of this encounter Visit Diagnoses Not on filedocumented in this encounter Care Teams Inserter Relationship Specialty Start Date End Date Sammie Maharaj [address] [place] [address] PCP - General Family Medicine 05/15/18 documented as of this encounter
--- OUTSIDE RECORDS SUMMARY | 2024-12-03 13:40 | XMS_ITS | Clinical Summary ---
Demographics Address [address] [facility] [address] [place] [address] Home Phone Mobile Phone Preferred Language Greenlandic; Castilian Marital Status Single Spiritism Affiliation Unknown Race Unknown Ethnic Group Unknown Author Organization [facility] Address [address] [place] [address] Support Name Relationship Address Phone Orion Rubio Daughter [address] [facility] [address] [place] [address] Care Team Providers Care Research Physiologist Name Role Phone Kenney Maharajgus Beckett Primary [...] Capsule(s) By Mouth Daily 3 Active FreeStyle [place] Lite meter TEST BLOOD SUGAR THREE TIMES DAILY 4 Active FreeStyle [place] 2 [place] misc 4 Active FreeStyle [place] 2 Sensor [...] mL 11 4 Active FreeStyle [place] 3 [place] [facility] Use to monitor blood sugars. E11.9 1 each 05/15/2024 9:09 AM EDT 4 Active FreeStyle [place] 3 Sensor deviceIndicati ons:Type 2 diabetes mellitus without complication, with long-term current use of insulin (CMS/HCC) ([facility]) Change sensor every 14 days. E11.9 2 each 11 07/25/2024 6:52 PM EDT 4 Active FreeStyle [place] 3 Plus Sensor deviceIndicati ons:Type 2 diabetes mellitus without complication, with long-term current use of insulin (CMS/HCC) ([facility]) Change sensor every 15 days. E11.65 2 each 11 11/23/2024 2:46 PM EST 4 Active zonisamide (ZONEGRAN) 100 [...] A DAY. 60 capsule 5 025 Active ferrous gluconate (FERGON) 324 mg (38 mg iron) tablet SMARTSI Tablet(s) By Mouth Twice Daily 4 025 Discontinued vitamin A 3,000 mcg (10,000 unit) capsule TAKE 1 CAPSULE (10,000 UNITS TOTAL) BY MOUTH ONCE A DAY. 60 capsule 5 025 Discontinued Active Problems Problem Noted Date Diagnosed Date Hyperlipidemia 11/15/2024 Type 2 diabetes mellitus 11/19/2021 Overview (11/14/2024): -U Mass 02/21/2024 to see endocinology Diabetes [...] from 18-14 by endo 04/2024 Seen by [facility] endocrinology 04/18/24 Hemoglobin A1c is falsely low [...] approval for her to upgrade to the freeHardPoint Protective Groupyle charlotte 3 CGM. BPPV (benign paroxysmal positional vertigo) 12/09 Assessment [...] Encounters Date Type Department Care Team Description 11/28/2024 Telephone [facility] Transplant Department [address] [place] [address] Katy Boateng, ERVIN 11/14/2024 10:00 AM EST Social Work [facility] Liver Transplant Services [address] [place] [address] Marissa Hearn [facility] 11/14/2024 8:00 AM EST Office Visit [facility] [address] [place] [address] Automatic Pinsetter Mechanic: Paola Vance NP Type 2 diabetes mellitus without complication, with long-term current use of insulin (CMS/HCC) (HCC) (Primary Dx) 11/13/2024 Refill [facility] Liver Transplant Services [address] [place] [address] Yasmin Ho MD 10/24/2024 Refill [facility] Liver Transplant Services [address] [place] [address] Yasmin Ho MD 10/11/2024 Refill [facility] Liver Transplant Services [address] [place] [address] Yasmin Ho MD 10/02/2024 Refill [facility] Liver Transplant Services [address] [place] [address] Yasmin Ho MD 09/12/2024 Orders Only [facility] Interventional Radiology [address] [place] [address] Eugene Warren MD 09/11/2024 8:00 AM EST Follow-Up [facility] Liver Transplant Services [address] [place] [address] Yasmin Ho MD Cryptogenic cirrhosis (CMS/HCC) (HCC) (Primary Dx) 09/11/2024 Orders Only [facility] Transplant Department [address] [place] [address] Katy Boateng RN Cryptogenic cirrhosis (CMS/HCC) (HCC) (Primary Dx) from Last 3 Months Immunizations Immunization Administration Dates Next Due Diphtheria, Tetanus Toxoids [...] Pulse 69 11/14/2024 8:06 AM EST Temperature 36.5 ??C (97.7 ??F) 09/11/2024 8:14 AM ES T Respiratory Rate 16 09/11/2024 8:14 AM EST Oxygen Saturation 100% 09/11/2024 8:14 AM EST Inhaled Oxygen Concentration - - Weight 52.7 kg (116 lb 2.9 oz) 11/14/2024 8:06 A M EST Height 144.8 cm (4' 9 ) 11/14/2024 8:06 AM EST Body Mass Index 25.14 11/14/2024 8:06 AM EST Plan of Treatment Upcoming Encounters Date Type Department Care Team (Late st Contact Info) Description 01/08/2025 8:00 AM EDT Follow-Up [facility] Liver Transplant Services [address] [place] [address] Yasmin Ho MD [address] [place] [address] 03/22/2025 3:30 PM EDT Office Visit [facility] Diabetes Clinic [address] [place] [address] Automatic Pinsetter Mechanic: Natasha Rubalcava MD [address] [place] [address] 07/17/2025 8:00 AM EDT Office Visit [facility] Diabetes Clinic [address] [place] [address] Automatic Pinsetter Mechanic: Paola Vance NP [address] [place] [address] 08/06/2025 8:00 AM EDT Office Visit [facility] Neurology Clinic [address] [place] [address] Manuel Carpenter PA [address] [place] [address] Health Maintenance Due Date Last Done Comments HPV and Pap Smear 1981 Ophthalmology Exam 1991 Varicella Vaccines (1 of 2 - 13+ 2-dose series) 1994 10/21/2023 Mammogram 2021 Cervical Cancer Screening 03/25/2024 Pap Smear 03/25/2024 03/25/2021 Alcohol/Substance Use Screening 10/10/2024 Depression Evaluation 10/10/2024 Social Drivers of Health Karime ual Screening 10/10/2024 Urine Microalbumin 04/26/2025 04/26/2024 Hemoglobin A1C 05/14/2025 11/14/2024, 06/12, 04/26/2024, Additional history exists Basic Metabolic Panel 10/24/2025 10/24/2024 , 09/11/2024, 08/27/2024, Additional history exists Pneumococcal Vaccine: Pediat bon (0-5 Years) and At-Risk Patients (6-50 Years) (3 of 3 - PCV20 or PCV21) 2031 07/28/2023, 06/26/2011, 06/11/2009, Additional history exists DTaP,Tdap,and Td Vaccines (4 - Td or Tdap) 08/29/2033 08/29/2023, 07/21/2012, 04/03/2010 RSV Vaccine (60+ years old a nd patients) (1 - 1-dose 75+ series) 2056 HIV Screening Completed 09/20/2023 Hepatitis C Screening Completed 09/20/2023 , 01/15/2014, 03/30/2010, Additional history exists Hepatitis B Vaccines Completed 09/29/2023, 07/28/2023, 07/13/2019, Additional history exists COVID-19 Vaccine Completed 07/09/2024, , 03/17/2021 Influenza Vaccine Completed 07/09/2024, , 06/25/2022, Additional history exists Procedures * Due to [place] state law, this organization might not be sharing negative HIV tests. Procedure Name Priority Date/Time Associated Diagnosis Comments POCT GLYCOSYLATED HEMOGLOBIN (HGB A1C) Routine 11/14/2024 7:40 AM EST BILIRUBIN, DIRECT Routine 09/11/2024 9:0 8 AM EST Cryptogenic cirrhosis (CMS/HCC) (HCC) COMPREHENSIVE METABOLIC PANEL Routine 09/11/2024 9:08 AM EST Liver disease AFP TUMOR MARKER Routine 09/11/2024 9:08 AM EST Liver disease CBC AUTO DIFFERENTIAL Routine 09/11/2024 9:08 AM EST Liver disease PROTIME-INR Routine 09/11/2024 9:08 AM EST Liver disease MICROALBUMIN, RANDOM URINE WITH CREATININE Routine 04/26/2024 4:22 PM EDT Type 2 diabetes mellitus without complication, with long-term current use of insulin (CMS/HCC) (HCC) HEPATITIS C ANTIBODY W/REFLEX TO HCV RNA, QUANTITATIVE PCR Routine 09/20/2023 12:40 PM EST Encounter for pre-transplant evaluation for liver transplant from Last 3 Months or Most Recently Relevant to Health Maintenance Results * Due to [place] state law, this organization might not be sharing negative HIV tests. * POCT Glycosylated Hemoglobin (HGB A1C), interfaced (11/14/2024 7:40 AM EST) Hemoglobin A1C, POCT 4.2 <=5.6 % 11/14/2024 8:12 AM EST [facility] Comment: A1C Recommendation for Non- Adults with Diabetes: <7.0% ADA 2011 Standards of Medical Care in Diabetes Blood 11/14/2024 7:40 AM EST 11/14/2024 8:12 AM EST us Paola Tolentino BULK MAIL CLERK LAB POCT ORDERABLES - DEVICE Final Result Performing Organization Address City/State/[facility] Co de Phone Number [facility] [address] [place] [address], * (ABNORMAL) CBC Auto Differential (09/11/2024 9:08 AM EST) WBC 5.4 3.8 - 10.8 10*3/uL 09/11/2024 9:36 AM EST [facility] RBC 4.07 3.80 - 5.10 10*6/uL 09/11/2024 9:36 AM EST [facility] Hemoglobin 12.7 11.7 - [...] - 3.90 10*3/uL 09/11/2024 9:36 AM EST [facility] Monocyte # 0.30 0.20 - 0.95 10*3/uL 09/11/2024 9:36 AM EST [facility] Eosinophil # 0.10 0.02 - 0.50 10*3/uL 09/11/2024 9:36 AM EST [facility] Basophil # <0.03 0.00 - 0.20 10*3/uL 09/11/2024 9:36 AM EST [facility] nRBC % 0.0 /100 WBCs 09/11/2024 9:36 AM EST [facility] nRBC # <0.01 <0.01 10*3/uL 09/11/2024 9:36 AM EST [facility] Blood Structure of peripheral vein / Unknown Venipuncture / Unknown 09/11/2024 9:08 AM EST 09/11/2024 9:27 AM EST us Yasmin Ho MD LAB BLOOD ORDERABLES Final R esult [facility] [address] [place] [address], * AFP Tumor Marker (09/11/2024 9:08 AM EST) Alpha Fetoprotein, Tumor Marker 3.4 ng/mL 09/12/2024 12:39 PM EST [employer] [employer] [facility] Comment: Reference Range: ?? <6.1 The use of AFP as a tumor marker in females is not recommended. This test was performed using the Magdiel Laketon chemiluminescent method. Values obtained from different assay methods cannot be used interchangeably. AFP levels, regardless of value, should not be interpreted as absolute evidence of the presence or absence of disease. Blood Structure of peripheral vein / Unknown Venipuncture / Unknown 09/11/2024 9:08 AM EST 09/11/2024 9:26 AM EST Narrative [facility] - 09/12/2024 12:39 PM EST [facility] Received Date: Yasmin Ho MD LAB BLOOD ORDERABLES Final R esult NICHOLAS HIRSCHBANNER MD [facility]ENTER[facility] [address] [facility] [address], [place] [address], [place] [phone] [employer] [facility] [address] [facility] 3rd Floor, [place] [address], [place] [phone] * Protime-INR (09/11/2024 9:08 AM EST) PT 12.2 9.6 - 12.4 Seconds 09/11/2024 9:52 AM EST [facility] INR 1.1 0.9 - 1.1 09/11/2024 9:52 AM EST [facility] Comment:The optimal therapeu tic INR range for patients treated with Vitamin K antagonists (VKAS, e.g., Warfarin) is 2.0 to 3.5. Discuss the desired range with your doctor/care team. Blood Structure of peripheral vein / Unknown Venipuncture / Unknown 09/11/2024 9:08 AM EST 09/11/2024 9:26 AM EST Yasmin oH MD LAB BLOOD ORDERABLES Final R esult [facility] [address] [place] [address], * (ABNORMAL) Bilirubin, Direct (09/11/2024 9:08 AM EST) Bilirubin, Direct 6.9(H) <=0.4 mg/dL 09/11/2024 10:02 AM EST [facility] Blood Structure of peripheral vein / Unknown Venipuncture / Unknown 09/11/2024 9:08 AM EST 09/11/2024 9:25 AM EST us Yasmin Ho MD LAB BLOOD ORDERABLES Final R esult [facility] [address] [place] [address], [place] * (ABNORMAL) Comprehensive Metabolic Panel (09/11/2024 9:08 AM EST) NA 142 135 - 145 mmol/L 09/11/2024 10:02 AM EST [facility] K 3.6 3.5 - 5.3 mmol/L 09/11/2024 10:02 AM EST [facility] Cl 110(H) 98 - 107 mmol/L 09/11/2024 10:02 AM EST [facility] CO2 19(L) 22 - 32 mmol/L 09/11/2024 10:02 AM EST [facility] Anion Gap 13 5 - 15 09/11/2024 10:02 AM EST [facility] Glucose 242(H) 65 - 99 mg/dL 09/11/2024 10:02 AM EST [facility] Creatinine 0.67 0.50 - 1.20 mg/dL 09/11/2024 10:02 AM EST [facility] Calcium 8.8 8.6 - 10.5 mg/dL 09/11/2024 10:02 AM EST [facility] Total Protein 6.6 6.0 - 8.0 g/dL 09/11/2024 10:02 AM EST [facility] Albumin 3.3(L) 3.5 - 5.2 g/dL 09/11/2024 10:02 AM EST [facility] Bilirubin, Total 8.7(H) 0.2 - 1.2 mg/dL 09/11/2024 10:02 AM EST [facility] Alkaline Phosphatase 1,141(H) 35 - 129 U/L 09/11/2024 10:02 AM EST [facility] [employer] [facility] AST 122(H) 10 - 40 U/L 09/11/2024 10:02 AM EST [facility] ALT 105(H) 10 - 40 U/L 09/11/2024 10:02 AM EST [facility] [employer] [facility] LAB[facility] BUN 18 7 - 23 mg/dL 09/11/2024 10:02 AM EST [facility] [employer] [facility] eGFR >90 >=60 mL/min/1 .73m2 09/11/2024 10:02 AM EST [facility] [employer] [facility] Comment:The estimated glomer ular [...] - 4.2 g/dL 09/11/2024 10:02 AM EST [facility] [employer] [facility] A/G Ratio 1.0(L) 1.5 - 3.0 09/11/2024 10:02 AM EST [facility] [employer] [facility] Blood Structure of peripheral vein / Unknown Venipuncture / Unknown 09/11/2024 9:08 AM EST 09/11/2024 9:25 AM EST us Yasimn Ho MD LAB BLOOD ORDERABLES Final R esult [facility] [facility] [address] [place] [address], [place] * Microalbumin, Random Urine with Creatinine (04/26/2024 4:22 PM EDT) Pathologist [facility] Microalbumin, Urine <2.0 mg/dL 04/26/2024 5:20 PM EDT [facility] [employer] Creatinine, Urine 69 15 - 278 mg/dL 04/26/2024 5:20 PM EDT [facility] [employer] [facility] LAB[facility]ORY Microalb/Creat Ratio, Random Urine 04/26/2024 5:[address] [facility] [employer] [facility] Comment: < 1.0 mcg/mgCr Microalbumin Reference Range: Normal ? <30 mcg/mg Creatinine Microalbuminuria ? 30-300 mcg/mg Creatinine Clinical Albuminuria >300 mcg/mg Creatinine Reference: ADA Guideline. Diabetes Care. 2004;27 (suppl 1) Urine Voided urine specimen / Unknown Non-Blood Collection / Unknown 04/26/2024 4:22 PM EDT 04/26/2024 4:35 PM EDT us Natasha Kramer MD LAB URINE ORDERABLES Final Resul t [facility] [employer] [facility] LABORATORY [address] [place] [address], * Hepatitis C Antibody w/Reflex to PCR (09/20/2023 12:40 PM EST) Pathologist [facility] Hepatitis C Antibody NON-REACT VIVEK NON-REACT VIVEK 09/21/2023 6:41 AM EST [facility] [facility] Comment: HCV antibody was non-reactive. There is no laboratory evidence of HCV infection. In most cases, no further action is required. However, if recent HCV exposure is suspected, a test for HCV RNA (test code 23881) is suggested. For additional information please refer to http://education.Connectbright/faq/QAC31f4 (This link is being provided for informational/ educational purposes only.) Blood Structure of peripheral vein / Unknown Venipuncture / Unknown 09/20/2023 12:40 PM EST 09/20/2023 1:07 PM EST Narrative [facility] - 09/21/2023 6:41 AM EST [facility] Received Date: us Yasmin Ho MD LAB BLOOD ORDERABLES Final R esult NICHOLAS BEASLEY [address] [facility] [address], [place] [address], [place] [phone] [employer] [facility] [address] [facility] [address]rd [address], [place] [address], [place] [phone] from Last 3 Months or Most Recently Relevant to Health Maintenance Insurance [employer] Advance Directives Documents on File Type Date Recorded Patient Director Of Early Childhood Education Expl anation Health Care Proxy 10/26/2023 12:55 PM 10-10 Advance Directive 01/22/2014 12:00 AM Michael mahoney Care Directives Advance Directive 04/03/2010 12:00 AM luba begum Dec Making (Adv.Dir) * Presumed Full Code (Latest Code Status on File) Date Activated Date Inactivated Comments 05/15/2024 12:15 PM 05/16/2024 2:39 AM Care Teams Research Physiologist Relationship Specialty Start Date End Date Sammie Maharaj [address] [place] [phone] PCP - General Family Medicine 05/15/18
--- OUTSIDE RECORDS SUMMARY | 2024-12-03 13:40 | XMS_ITS | Encounter Summary ---
Demographics Address [address] [facility] [address] [place] [address] Home Phone Mobile Phone Preferred Language Serbian; Castilian Marital Status Single Baptist Affiliation Unknown Race Unknown Ethnic Group Unknown Author Organization [facility] Address [address] [place] [address] Support Name Relationship Address Phone Orion Rubio Daughter [address] [facility] [address] [place] [address] Care Team Providers Care Ms Sql Dba Name Role Phone Sammie Maharaj Primary Care Provider [phone] Encounter Details Date Type Department Care Team (Late st Contact Info) Description 10/27/2023 Orders Only [facility] Interventional Radiology [address] [place] [address] Enzo Conner MD [address] [place] [address] Social History Tobacco Use Types Packs/Day Years [...] Info) Description 01/08/2025 8:00 AM EDT Follow-Up [facility] Liver Transplant Services [address] [place] [address] Yasmin Ho MD [address] [place] [address] 03/22/2025 3:30 PM EDT Office Visit [facility] Diabetes Clinic [address] [place] [address] Facialist: Natasha Rubalcava MD [address] [place] [address] 07/17/2025 8:00 AM EDT Office Visit [facility] Diabetes Clinic [address] [place] [address] Facialist: Paola Vance TELEMARKETING REPRESENTATIVE [address] [place] [address] 08/06/2025 8:00 AM EDT Office Visit [facility] Neurology Clinic [address] [place] [address] Manuel Carpenter PA [address] [place] [address] documented as of this encounter Visit Diagnoses Not on filedocumented in this encounter Care Teams Ms Sql Dba Relationship Specialty Start Date End Date Sammie Maharaj: [phone] [address] [place] [phone] PCP - General Family Medicine 05/15/18 documented as of this encounter
--- OUTSIDE RECORDS SUMMARY | 2024-12-03 13:40 | XMS_ITS | Encounter Summary ---
Author Organization [facility] Address [address] [place] [address] [address] [place] [address] Care Team Providers Care Aoc Plans Intelligence Officer Chief Name Role Phone Sammie Maharaj MD Primary Care Provider [phone] Loyda Glaser RN Unavailable [phone] Yasmin Ho MD Unavailable [phone] Encounter Details Date Type Department Care Team (Late st Contact Info) Description 11/11/2022 Abstract [facility] MEDICINE [address] [place] [address] Sammie Maharaj MD [address] [place] [address] Social History Tobacco Use Types Packs/Day Years [...] 9:00 AM EDT Office Visit [facility] OPTOMETRY [address] [place], [place] [phone] Darshana Bashir OD [address] [place] [address] documented as of this encounter Procedures Procedure Name Priority Date/Time Associated Diagnosis Comments PAP SMEAR Routine 03/25/2021 12:00 AM EDT documented in this encounter Results * Pap Smear (03/25/2021 12:00 AM EDT) Swab us Historical Provider LAB CYTOLOGY ORDERABLES F inal Result IMAGING documented in this encounter Visit Diagnoses Not on filedocumented in this encounter Care Teams Aoc Plans Intelligence Officer Chief Relationship Specialty Start Date End Date Sammie Maharaj MD [address] [place] [address] PCP - General Family Medicine 10/10/18 Loyda Glaser RN [address] [place] [address] Supervisor Backfilling Family Medicine 10/31/23 Yasmin Ho MD [address] [place] [address] Gastroenterology 08/29/24 Manuel Carpenter PA [facility] [address] [facility] [address] Neurology 08/29/24 Paola Tolentino, HEBERT [address] [address] Endocrinology 10/24/24 documented as of this encounter
--- OUTSIDE RECORDS SUMMARY | 2024-12-03 13:40 | XMS_ITS | Encounter Summary ---
Author Organization [facility] Address [address] [facility] 7t [place] [address] Care Team Providers Care Signal Repairer Name Role Phone Sammie Maharaj MD Primary Care Provider [phone] Loyda Glaser RN Unavailable [phone] Yasmin Ho MD Unavailable [phone] Reason for Referral * Consultation (Routine) - Closed Specialty Diagnoses / Procedures Referred By Edu danielson Referred To Contact Optometry Diagnoses Type 2 diabetes mellitus with hyperglycemia, with long-term current use of insulin (CMS/HCC) Sammie Maharaj MD [address] [place], [place] Phone: tel: fax: [facility] OPTOMETRY [address] [place] [address] Phone: tel: fax: Referral ID Status Reason Start Date Expiration Date V isits Requested Visits Authorized [id number] Closed Consult and Treat 11/02/2024 11/02/2025 1 1 Reason for Visit * Consultation (Routine) - Authorized Specialty Diagnoses / Procedures Referred By Edu danielson Referred To Contact Pharmacy Diagnoses Complex partial seizure (CMS/HCC) End stage liver disease (CMS/HCC) Type 2 diabetes mellitus with hyperglycemia, with long-term current use of insulin (CMS/HCC) Complex care coordination Sammie Maharaj MD [address] [place], [place] Phone: tel: fax: Referral ID Status Reason Start Date Expiration Date Visits Requested Visits Authorized [id number] Authorized Continuity of Care 10/24/2024 10/24/2025 6 6 Encounter Details Date Type Department Care Team (Latest Contact Info) Description 11/02/2024 9:00 AM EST Clinical Support [facility] MEDICINE [address] [place] [address] Laya Horan, PharmD [address] [place] [address] Type 2 diabetes mellitus with hyperglycemia, with [...] AM EDT documented as of this encounter Progress Notes * Laya Horan PharmD - 11/02/2024 9:00 AM EST Pharmacy Consult Visit Type: MTM Visit Pharmacist: Laya Horan PharmD Referral Diagnosis: G40.209 (ICD-10-CM) - Complex partial seizure (CMS/HCC) K72.10 (ICD-10-CM) - End stage liver disease (CMS/HCC) E11.65,Z79.4 (ICD-10-CM) - Type 2 diabetes mellitus with hyperglycemia, with long-term current use of insulin (CMS/HCC) Z71.89 (ICD-10-CM) - Complex care coordination Referral Expiration: 10/24/2025 Referring Provider: Sammie Maharaj MD Pharmacy Recommendations for Provider: Please review CGM data for potential hypoglycemia, as patient is using Lantus Solostar and their A1C is 4.6% as of 07/09/2024. Background/ Visit Intake Aubrie Chery is a 44 y.o. patient here for a new patient visit. Visit completed over the phone. Patient gave permission to speak with their daughter. Allergies: is allergic to acetaminophen and latex. Preferred Pharmacy: [facility]/pharmacy #[id number] - [place], [place] - [address] [facility] [address] [facility] [address] [facility] - [place], [place] - [address] [facility] [address] [facility] [id number] Medbox: No. Assessment & Plan Adherence: History: Medication Reconciliation: Reports use of the following medications that are not currently active in [facility] medlist: Lactulose solution (unknown strength or directions for use) Denies use of the following medications that are active in [facility] medlist: Ciclopirox solution: acute use for nails Ursodiol 300 mg: taking 250 mg three times daily (dose increase from 300 mg two times daily) Reports taking the following medications differently than prescribed: Lantus Solostar: injects 14 units once daily (prescribed 18 units), dose decrease confirmed from endocrinology note (04/18/2024) OTC medication, vitamin, supplement use: denies Adherence: Medication Organization: Uses weekly pill box for organization with assistance from their daughter Missed doses: not often Read/Write: Yes, in Panamanian Reports using the following strategies to improve adherence: Keeps in a location that is highly visible Denies interest in [facility] medbox program Goals of therapy: Improve adherence & minimize missed doses (<2 missed doses/week) Recommendations/Monitoring: Pharmacy updated medlist in [facility] to match patients current medication use Diabetes Pharmacologic Therapy: Lantus Solostar 100 U/mL: inject 18 units subcutaneously at night History: Follows with endocrinology at [facility], last appointment 04/18/2024 Reviewed CGM data which suggests BG is well controlled, recommended the patient decreases Lantus Solostar from 18 units to 14 units daily to reduce risk of hypoglycemia. Patient's daughter confirmed that the patient is injecting 14 units daily SMBG: Patient's daughter reports SMBP 3 times per day before meals. Reports average BG of 120 mg/dL Lab monitoring: Lab Results Component Value Date K 3.4 10/24/2024 NA 140 10/24/2024 MICROALBCREU TNP 07/28/2023 CREATININE 0.48 (L) 10/24/2024 EGFR >60 10/24/2024 HGBA1C 4.6 07/09/2024 HGBA1C 4.3 01/18/2024 HGBA1C 7.6 (A) 10/28/2023 Additional recommendations per ADA: On ACEI/ARB: No On Aspirin: No On Statin: No (elevated ALT/AST with liver disease) Dental exam in the past 6 months: Yes, 10/30/2024 Eye Exam in the past 12 months: No, referral sent 11/02/2024 Goals of therapy: Per the ADA Standards of Medical Care in Diabetes - 2023 Achieve A1c of <7% while also minimizing episodes of hypoBG (<70 mg/dL) Plan: Patient due for annual Urine microalbumin. Pharmacist reminded patient to complete pending lab, verbalized understanding and agreed Please review CGM data for potential hypoglycemia, as patient is using Lantus Solostar and their A1C is 4.6% as of 07/09/2024. Future consideration: initiation of empagliflozin 10 mg followed by A1C in 3 months, with a dose reduction of Lantus to prevent hypoglycemia Per 2024 ADA standards of care: in adults with type 2 diabetes and established ASCVD the treatment plan should include SGLT2 and/or GLP-1 RA for glycemic management and comprehensive risk reduction, independent of A1C. In addition, the guidelines also recommend SGLT2 therapy in patients with albuminuria Education: Discussed benefits of SGLT2 therapy in patients with diabetes and ASCVD, and potential ELBA Complex partial seizure Pharmacologic therapy: Zonisamide 200 mg by mouth once daily History: Follows with [facility] (Jono Eden MD), last appointment 08/07/2024 with plan to follow-up in a year Denies recent seizures Plan: Plan to continue Zonisamide as prescribed End stage liver disease Pharmacologic therapy: Ursodiol 250 mg by mouth three times daily History: Follows with [facility] liver clinic, last appointment September 2024 Patient is on the liver transplant list Plan: Plan to continue Ursodiol as prescribed Immunizations History: Immunization History Administered Date(s) Administered DTaP, 5 pertussis antigens 04/03/2010 Hep A, Adult 02/29/2008, 05/01/2009 Hep B, adult 07/13/2019, 07/28/2023, 09/29/2023 Hib (HbOC) 06/11/2009 Influenza injectable quadrivalent IIV4 with preservative 10/12/2017 Influenza injectable quadrivalent preservative free 07/13/2019, 11/10/2020, 06/25/2022, 07/28/2023 Influenza, IIV3, injectable 06/11/2009, 07/04/2014 Influenza, Split (incl. purified surface antigen) 06/14/2013 Influenza, seasonal, injectable, preservative free 07/09/2024 Meningococcal MCV4P ACYW-135 06/11/2009 PPD Test 04/03/2010 Pfizer Covid-19 Vaccine 12+ 03/17/2021, 08/29/2023, 07/09/2024 Pneumococcal Conjugate PCV 20 07/28/2023 Pneumococcal Polysaccharide PPSV23 02/29/2008, 06/11/2009, 06/26/2011 Pneumococcal, Unspecified 02/29/2008 Tdap 07/21/2012, 08/29/2023 Zoster, Recombinant 10/21/2023 Goals of therapy: Ensure patient is up to date per the CDC Adult Immunization Schedule. Assessment/Plan: Plan: Pharmacist reviewed immunization record and no vaccination gaps exist at this time. Patient Action Plan At this time patient does not have a need to follow-up with the MTM Program. If further medication therapy management is needed, please consider referring patient back. Thank you for your care in this patient. Continue to adhere to medication Monitor blood sugar as directed Complete pending urine microalbumin Establish care with [facility] eye care Attend follow up appointments documented in this encounter Plan of Treatment Upcoming Encounters Date Type Department Care Team (Late st Contact Info) Description 02/25/2025 9:00 AM EDT Office Visit [facility] OPTOMETRY [address] [place] [address] Darshana Bashir, OD [address] [place] [address] Scheduled Referrals Name Type Priority Associated Diagnoses Orde r Schedule Referral to [facility] Eye Care Outpatient Referral Routine Type 2 diabetes mellitus with hyperglycemia, with long-term current use of insulin ([facility]) Expected: 11/02/2024 (Approximate), Expires: 11/02/2025 documented as of this encounter Visit Diagnoses Diagnosis Type 2 diabetes mellitus with hyperglycemia, with long-term current use of insulin (CMS/HCC)- Primary Complex partial seizure (CMS/HCC) End stage liver disease (CMS/HCC) documented in this encounter Additional Health Concerns Assessment Noted Time PHQ-9 Depression Total Score: 0 10/24/19 25 9:33 AM EST documented as of this encounter Care Teams Signal Repairer Relationship Specialty Start Date End Date Sammie Maharaj MD [address] [place] [address] PCP - General Family Medicine 10/10/18 Loyda Glaser RN [address] [place] [address] Sports Director Family Medicine 10/31/23 Yasmin Ho MD [address] [place] [address] Gastroenterology 08/29/24 Manuel Carpenter PA [address] [address] Neurology 08/29/24 Paola Tolentino NP [address] [address] Endocrinology 10/24/24 documented as of this encounter
--- OUTSIDE RECORDS SUMMARY | 2024-12-03 13:40 | XMS_ITS | Encounter Summary ---
Demographics Address [address] [facility] [address] [place] [address] Home Phone Mobile Phone Preferred Language Azeri; Castilian Marital Status Single Judaism Affiliation Unknown Race Unknown Ethnic Group Unknown Author Organization [facility] Address [address] [place] [address] Support Name Relationship Address Phone Orion Rubio Daughter [address] [facility] [address] [place] [address] Care Team Providers Care Off Track Betting Manager Name Role Phone Sammie Maharaj Primary Care Provider [phone] Encounter Details Date Type Department Care Team (Late st Contact Info) Description 11/03/2023 Orders Only [facility] Interventional Radiology [address] [place] [address] Duncan Ragland MD [address] [place] [address] Social History Tobacco Use Types Packs/Day Years [...] Info) Description 01/08/2025 8:00 AM EDT Follow-Up [facility] Liver Transplant Services [address] [place] [address] Yasmin Ho MD [address] [place] [address] 03/22/2025 3:30 PM EDT Office Visit [facility] [address] [place] [address] Duct Installer: Natasha Rubalcava MD [address] [place] [address] 07/17/2025 8:00 AM EDT Office Visit [facility] [address] [place] [address] Duct Installer: Paola Vance NP [address] [place] [address] 08/06/2025 8:00 AM EDT Office Visit [facility] Neurology Clinic [address] [place] [address] Manuel Carpenter PA [address] [place] [address] documented as of this encounter Visit Diagnoses Not on filedocumented in this encounter Care Teams Off Track Betting Manager Relationship Specialty Start Date End Date Sammie Maharaj [address] [place] [address] PCP - General Family Medicine 05/15/18 documented as of this encounter
--- OUTSIDE RECORDS SUMMARY | 2024-12-03 13:40 | XMS_ITS | Encounter Summary ---
Author Organization [employer] [facility] Address [address] [facility] 7t [place] [address] Care Team Providers Care Early Childhood Worker Name Role Phone Sammie Maharaj MD Primary Care Provider [phone] Loyda Glaser RN Unavailable [phone] Yasmin Ho MD Unavailable [phone] Reason for Visit * Reason Onset Date Comments Nurse Triage 03/22/2023 Encounter Details Date Type Department Care Team (Late st Contact Info) Description 03/22/2023 Telephone [facility] MEDICINE [address] [place] [address] Sammie Maharaj MD [address] [place], [place] [phone] Nurse Triage Social History Tobacco Use Types [...] 03/22/2023 2:01 PM EDT Triage call with [employer] Telephone Messenger ID [id number] Pt didn't answer left message to call [facility] triage line at [phone]. Triage call with [employer] [place] [id number] Pt answered, Pt wasn't able to say [...] Description 02/25/2025 9:00 AM EDT Office Visit [facility] OPTOMETRY [address] [place] [address] MckayDarshana coppola, OD [address] [place] [address] documented as of this encounter Visit Diagnoses Not on filedocumented in this encounter Care Teams Early Childhood Worker Relationship Specialty Start Date End Date Sammie Maharaj MD [address] [place] [address] PCP - General Family Medicine 10/10/18 Loyda Glaser RN [address] [place] [address] Data Processing Mechanic Family Medicine 10/31/23 Yasmin Ho MD [address] [place] [address] Gastroenterology 08/29/24 Manuel Carpenter PA [address] [address] Neurology 08/29/24 Paola Tolentino NP [address] [address] Endocrinology 10/24/24 documented as of this encounter
--- OUTSIDE RECORDS SUMMARY | 2024-12-03 13:40 | XMS_ITS | Encounter Summary ---
Demographics Address [address] [facility] [address] [place] [address] Home Phone Mobile Phone Preferred Language Serbian; Castilian Marital Status Single Roman Catholic Affiliation Unknown Race Unknown Ethnic Group Unknown Author Organization [facility] Address [address] [place] [address] Support Name Relationship Address Phone Orion Rubio Daughter [address] [facility] [address] [place] [address] Care Team Providers Care Inspector Publications Name Role Phone Sammie Maharaj Primary Care Provider [phone] Encounter Details Date Type Department Care Team (Late st Contact Info) Description 12/14/2023 Orders Only [facility] Interventional Radiology [address] [place] [address] Smith Manzo DO [address] [place] [address] Social History Tobacco Use Types Packs/Day Years [...] Info) Description 01/08/2025 8:00 AM EDT Follow-Up [facility] Liver Transplant Services [address] [place] [address] Yasmin Ho MD [address] [place] [address] 03/22/2025 3:30 PM EDT Office Visit [facility] Diabetes Clinic [address] [place] [address] Hand Rug Braider: Natasha Rubalcava MD [address] [place] [address] 07/17/2025 8:00 AM EDT Office Visit [facility] Diabetes Clinic [address] [place] [address] Hand Rug Braider: Paola Vance NP [address] [place] [address] 08/06/2025 8:00 AM EDT Office Visit [facility] Neurology Clinic [address] [place] [address] Manuel Carpenter PA [address] [place] [address] documented as of this encounter Visit Diagnoses Not on filedocumented in this encounter Care Teams Inspector Publications Relationship Specialty Start Date End Date Sammie Maharaj [address] [place] [address] PCP - General Family Medicine 05/15/18 documented as of this encounter
--- OUTSIDE RECORDS SUMMARY | 2024-12-03 13:40 | XMS_ITS | Encounter Summary ---
Author Organization [employer] Address [address] [facility] [address] 7t [place] [address] Care Team Providers Care Turret Punch Press Operator Name Role Phone Sammie Maharaj MD Primary Care Provider [phone] Loyda Glaser RN Unavailable [phone] Yasmin Ho MD Unavailable [phone] Reason for Visit * Reason Comments Med Refill Encounter Details Date Type Department Care Team (Late st Contact Info) Description 11/13/2024 Refill [facility] [address] [place], [place] [phone] Sammie Maharaj MD [address] [place], [place] [phone] Tinea unguium Social History Tobacco Use Types [...] 9:00 AM EDT Office Visit [facility] OPTOMETRY [address] [place] [address] Mckay, Darshana, OD [address] [place] [address] documented as of this encounter Visit Diagnoses Diagnosis Tinea unguium Dermatophytosis of nail documented in this encounter Additional Health Concerns Assessment Noted Time PHQ-9 Depression Total Score: 0 10/24/19 25 9:33 AM EST documented as of this encounter Care Teams Turret Punch Press Operator Relationship Specialty Start Date End Date Sammie Maharaj MD [address] [place] [address] PCP - General Family Medicine 10/10/18 Loyda Glaser, ERVIN [address] [place] [address] Household Appliances Service Technician Family Medicine 10/31/23 Yasmin Ho MD [address] [place] [address] Gastroenterology 08/29/24 Manuel Carpenter PA [address] [phone] Neurology 08/29/24 Paola Tolentino NP [address] [address] Endocrinology 10/24/24 documented as of this encounter
--- OUTSIDE RECORDS SUMMARY | 2024-12-03 13:40 | XMS_ITS ---
Demographics Address [address] [facility] [address] [place] [address] Home Phone Mobile Phone Preferred Language Kenyan; Castilian Marital Status Single Muslim Affiliation Unknown Race Unknown Ethnic Group Unknown Author Organization [facility] Address [address] [place] [address] Support Name Relationship Address Phone Orion Rubio Daughter [address] [facility] [address] [place] [address] Care Team Providers Care Land Development Manager Name Role Phone Kenney Maharajhanie Sujit Primary Care Provider [phone] Transplant Episode Liver Candidate [facility] ([place], [place]) - [facility] waitlisted on 12/30/2023 Marked as Active on 12/30/2023 Liver CoordinatorKaty Boateng RN Phone: N/A Fax: N/A Email: N/A Scores Score Value Updated Expires Exceptions/[place] sons CPRA Not available UNOS MELD 18 09/24/2024 12/23/2024 MELD (Calc) 18 09/11/2024 [place] Organ Diagnosis Organ Primary 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 Marilee Alexander NP Referring Physician [phone] [email or web address] Pre-Transplant Referred: 09/06/2023 Evaluation began: 10/21/2023 Committee: 12/15/2023 Center waitlisted: 12/30/2023 Appointments (11/02/2024 - 12/31/2024) When With Visit Type Description 11/14/2024 Transplant - [facility] Follow Up
--- OUTSIDE RECORDS SUMMARY | 2024-12-03 13:40 | XMS_ITS | Encounter Summary ---
Demographics Address [address] [facility] [address] [place] [address] Home Phone Mobile Phone Preferred Language Japanese; Castilian Marital Status Single Anabaptist Affiliation Unknown Race Unknown Ethnic Group Unknown Author Organization [facility] Address [address] [place] [address] Support Name Relationship Address Phone Orion Rubio Daughter [address] [facility] [address] [place] [address] Care Team Providers Care Sand Mixer Name Role Phone Sammie Maharaj Sujit Primary Care Provider [phone] Encounter Details Date Type Department Care Team (Late st Contact Info) Description 07/13/2017 Transplant Conversio n Encounter [facility] Health Information Management [address] [place] [address] Provider, [facility] Social History Tobacco Use Types Packs/Day [...] Info) Description 01/08/2025 8:00 AM EDT Follow-Up [facility] Liver Transplant Services [address] [place] [address] Yasmin Ho MD [address] [place] [address] 03/22/2025 3:30 PM EDT Office Visit [facility] Building Diabetes Clinic [address] [place] [address] Hydraulic Auto Jack Mechanic: Natasha Rubalcava MD [address] [place] [address] 07/17/2025 8:00 AM EDT Office Visit [facility] Diabetes Clinic [address] [place] [address] Hydraulic Auto Jack Mechanic: Paola Vance DATA CENTER TECHNICIAN [address] [place] [address] 08/06/2025 8:00 AM EDT Office Visit [facility] Neurology Clinic [address] [place] [address] Manuel Carpenter PA [address] [place] [address] documented as of this encounter Visit Diagnoses Not on filedocumented in this encounter Care Teams Sand Mixer Relationship Specialty Start Date End Date Sammie Maharaj: [id number] [address] [place] [address] PCP - General Family Medicine 05/15/18 documented as of this encounter
--- OUTSIDE RECORDS SUMMARY | 2024-12-03 13:40 | XMS_ITS | Encounter Summary ---
Author Organization [employer] Address [address] [facility] 7t [place] [address] Care Team Providers Care Detective Chief Name Role Phone Plummer, Sammie JOHNSON Primary Care Provider [phone] Loyda Glaser RN Unavailable [phone] Yasmin Ho MD Unavailable [phone] Reason for Visit * Reason Onset Date Comments No Show 04/21/2023 Encounter Details Date Type Department Care Team (Late st Contact Info) Description 04/21/2023 Telephone [facility] MEDICINE [address] [place] [address] Hansa Chung RN [address] [place] [address] No Show Social History Tobacco Use Types [...] and declined as she is traveling to [facility] tomorrow morning and whill not be [...] 04/21/2023 12:30 PM EDT Call received from [facility], regarding critical lab [...] Description 02/25/2025 9:00 AM EDT Office Visit [facility] OPTOMETRY [address] [place] [address] Darshana Bashir, OD [address] [place] [address] documented as of this encounter Visit Diagnoses Not on filedocumented in this encounter Care Teams Detective Chief Relationship Specialty Start Date End Date Sammie Maharaj MD [address] [place] [address] PCP - General Family Medicine 10/10/18 Loyda Glaser, ERVIN [address] [place] [address] Motor Bus Driver Family Medicine 10/31/23 Yasmin Ho MD [address] [place] [address] Gastroenterology 08/29/24 Manuel Carpenter PA [address] [address] Neurology 08/29/24 Paola Tolentino, INTEGRATED LOGISTICS OPERATIONS MANAGER [address] [address] Endocrinology 10/24/24 documented as of this encounter
--- OUTSIDE RECORDS SUMMARY | 2024-12-03 13:40 | XMS_ITS | Encounter Summary ---
Demographics Address [address] [facility] [address] [place] [address] Home Phone Mobile Phone Preferred Language Pashto; Castilian Marital Status Single Jewish Affiliation Unknown Race Unknown Ethnic Group Unknown Author Organization [facility] Address [address] [place] [address] Support Name Relationship Address Phone Orion Rubio Daughter [address] [facility] [address] [place] [address] Care Team Providers Care Sofa Inspector Name Role Phone Sammie Maharaj Primary Care Provider [phone] Encounter Details Date Type Department Care Team (Late st Contact Info) Description 09/20/2023 Orders Only [facility] Interventional Radiology [address] [place] [address] Ricardo Reyez MD [address] [place] [address] 28[address] Social History Tobacco Use Types Packs/Day Years [...] Info) Description 01/08/2025 8:00 AM EDT Follow-Up [facility] Liver Transplant Services [address] [place] [address] Yasmin Ho MD [address] [place] [address] 03/22/2025 3:30 PM EDT Office Visit [facility] Diabetes Clinic [address] [place] [address] Bench Worker Hollow Handle: Natasha Rubalcava MD [address] [place] [address] 07/17/2025 8:00 AM EDT Office Visit [facility] [address] [place] [address] 727[address] Bench Worker Hollow Handle: Paola Vance NP [address] [place] [address] 08/06/2025 8:00 AM EDT Office Visit [facility] Neurology Clinic [address] [place] [address] Manuel Carpenter PA [address] [place] [address] documented as of this encounter Visit Diagnoses Not on filedocumented in this encounter Care Teams Sofa Inspector Relationship Specialty Start Date End Date Sammie Maharaj [address] [place] [address] PCP - General Family Medicine 05/15/18 documented as of this encounter
--- OUTSIDE RECORDS SUMMARY | 2024-12-03 13:40 | XMS_ITS | Referral Summary ---
Demographics Address 17 [facility] [address] [place] [address] Home Phone Mobile Phone Preferred Language Ukrainian; Castilian Marital Status Single Yazdanism Affiliation Unknown Race Unknown Ethnic Group Unknown Author Organization [facility] Address [address] [place] [address] Support Name Relationship Address Phone Orion Rubio Daughter 17 [facility] [address] [place] [address] Care Team Providers Care Audience Coordinator Name Role Phone Sammie Maharaj Sujit Primary Care Provider [phone] Encounters Date Type Department Care Team Description 11/28/2024 Telephone [facility] Transplant Department [address] [place] [address] Katy Boateng RN 11/14/2024 10:00 AM EST Social Work [facility] Liver Transplant Services [address] [place] [address] Marissa Hearn LICSW 11/14/2024 8:00 AM EST Office Visit [facility] Building Diabetes Clinic [address] [place] [address]44 Labor Law Professor: Paola Vance NP Type 2 diabetes mellitus without complication, with long-term current use of insulin (CMS/HCC) (HCC) (Primary Dx) 11/13/2024 Refill [facility] Liver Transplant Services [address] [place] [address] Yasmin oH MD 10/24/2024 Refill [facility] Liver Transplant Services [address] [place] [address] Yasmin Ho MD 10/11/2024 Refill [facility] Liver Transplant Services [address] [place] [address] Yasmin Ho MD 10/02/2024 Refill [facility] Liver Transplant Services [address] [place] [address] Yasmin Ho MD 09/12/2024 Orders Only [facility] Interventional Radiology [address] [place] [address] Eugene Warren MD 09/11/2024 Orders Only [facility] Transplant Department [address] [place] [address] Katy Boateng RN Cryptogenic cirrhosis (CMS/HCC) (HCC) (Primary Dx) 09/11/2024 8:00 AM EST Follow-Up [facility] Liver Transplant Services [address] [place] [address] Yasmin Ho MD Cryptogenic cirrhosis (CMS/HCC) (HCC) (Primary Dx) from Last 3 Months Allergies [...] Capsule(s) By Mouth Daily 3 Active FreeStyle [place] [facility] Lite meter TEST BLOOD SUGAR THREE TIMES DAILY 4 Active FreeStyle [place] 2 Honeydew misc 4 Active FreeStyle [place] 2 Sensor [...] mL 11 4 Active FreeStyle [place] 3 Honeydew misc Use to monitor blood sugars. E11.9 1 each 05/15/2024 9:09 AM EDT 4 Active FreeStyle [place] 3 Sensor deviceIndicati ons:Type 2 diabetes mellitus without complication, with long-term current use of insulin (CMS/HCC) ([facility]) Change sensor every 14 days. E11.9 [...] from 18-14 by endo 04/2024 Seen by [facility] endocrinology 04/18/24 Hemoglobin A1c is falsely [...] for her to upgrade to the freestyle charlotte 3 CGM. BPPV (benign paroxysmal positional [...] bleeding 2013 Chronic liver disease 10/27/2009 Immunizations Immunization Administration Dates Next Due Diphtheria, [...] Info) Description 01/08/2025 8:00 AM EDT Follow-Up [facility] Liver Transplant Services [address] [place] [address] Yasmin Ho MD [address] [place] [address] 03/22/2025 3:30 PM EDT Office Visit [facility] Diabetes Clinic [address] [place] [address] Labor Law Professor: Natasha Rubalcava MD [address] [place] [address] 07/17/2025 8:00 AM EDT Office Visit [facility] Diabetes Clinic [address] [place] [address] 70022 Labor Law Professor: Paola Vance NP [address] [place] [address] 08/06/2025 8:00 AM EDT Office Visit [facility] Neurology Clinic [address] [place] [address] Manuel Carpenter PA [address] [place] [address] Procedures * Due to [place] state law, this organization might not be [...] to Health Maintenance Results * Due to [place] state law, this organization might not be sharing negative HIV tests. * POCT Glycosylated Hemoglobin (HGB A1C), interfaced (11/14/2024 7:40 AM EST) Hemoglobin A1C, POCT 4.2 <=5.6 % 11/14/2024 8:12 AM EST [facility] Comment: A1C Recommendation for Non- Adults with Diabetes: <7.0% ADA 2011 Standards of Medical Care in Diabetes Blood 11/14/2024 7:40 AM EST 11/14/2024 8:12 AM EST us Paola Tolentino BOAT REPAIRER LAB POCT ORDERABLES - DEVICE Final Result [facility] [address] [place] [address], * (ABNORMAL) CBC Auto Differential (09/11/2024 9:08 AM EST) WBC 5.4 3.8 - 10.8 10*3/uL 09/11/2024 9:36 AM EST [facility] RBC 4.07 3.80 - 5.10 10*6/uL 09/11/2024 9:36 AM EST [facility] Hemoglobin 12.7 [...] <0.03 <=0.03 10*3/uL 09/11/2024 9:36 AM EST [facility] Lymphocyte # 0.70(L) 0.85 - 3.90 10*3/uL 09/11/2024 9:36 AM EST [facility] Monocyte # 0.30 0.20 - 0.95 10*3/uL 09/11/2024 9:36 AM EST [facility] Eosinophil # 0.10 0.02 - 0.50 10*3/uL 09/11/2024 9:36 AM EST [facility] Basophil # <0.03 0.00 - 0.20 10*3/uL 09/11/2024 9:36 AM EST [facility] nRBC % 0.0 /100 WBCs 09/11/2024 9:36 AM EST [facility] nRBC # <0.01 <0.01 10*3/uL 09/11/2024 9:36 AM EST [facility] Blood Structure of peripheral vein / Unknown Venipuncture / Unknown 09/11/2024 9:08 AM EST 09/11/2024 9:27 AM EST us Yasmin Ho MD LAB BLOOD ORDERABLES Final R esult [facility] [address] [place] [address], * AFP Tumor Marker (09/11/2024 9:08 AM EST) Alpha Fetoprotein, Tumor Marker 3.4 ng/mL 09/12/2024 12:39 PM EST [employer] [facility] Comment: Reference Range: ?? <6.1 The use of AFP as a tumor marker in females is not recommended. This test was performed using the [employer] [place] chemiluminescent method. Values obtained from different assay methods cannot be used interchangeably. AFP levels, regardless of value, should not be interpreted as absolute evidence of the presence or absence of disease. Blood Structure of peripheral vein / Unknown Venipuncture / Unknown 09/11/2024 9:08 AM EST 09/11/2024 9:26 AM EST Narrative [facility] - 09/12/2024 12:39 PM EST [facility] Received Date: Yasmin Ho MD LAB BLOOD ORDERABLES Final R esult [facility] [address] [facility] 3rd Floor, [place] [address], [place] [phone] [employer] [facility] [address] [facility] 3rd Floor, [place] [address], [place] [phone] * Protime-INR (09/11/2024 9:08 AM EST) PT 12.2 9.6 - 12.4 Seconds 09/11/2024 9:52 AM EST [facility] LAB[facility] INR 1.1 0.9 - 1.1 09/11/2024 9:52 AM EST [facility] Comment:The optimal therapeu tic INR range for patients treated with Vitamin K antagonists (VKAS, e.g., Warfarin) is 2.0 to 3.5. Discuss the desired range with your doctor/care team. Blood Structure of peripheral vein / Unknown Venipuncture / Unknown 09/11/2024 9:08 AM EST 09/11/2024 9:26 AM EST Yasmin Ho MD LAB BLOOD ORDERABLES Final R esult [facility] PATHOLOG[facility] LABORATORY [address] [place] [address], * (ABNORMAL) Bilirubin, Direct (09/11/2024 9:08 AM EST) Bilirubin, Direct 6.9(H) <=0.4 mg/dL 09/11/2024 10:02 AM EST [facility] Blood Structure of peripheral vein / Unknown Venipuncture / Unknown 09/11/2024 9:08 AM EST 09/11/2024 9:25 AM EST us Yasmin Ho MD LAB BLOOD ORDERABLES Final R esult [facility] LABOR[facility]ORY [address] [place] [address], * (ABNORMAL) Comprehensive Metabolic Panel (09/11/2024 9:08 AM EST) NA 142 135 - 145 mmol/L 09/11/2024 10:02 AM EST [facility] K 3.6 3.5 - 5.3 mmol/L 09/11/2024 10:02 AM EST [facility] Cl 110(H) 98 - 107 mmol/L 09/11/2024 10:02 AM EST [facility] CO2 19(L) 22 - 32 mmol/L 09/11/2024 10:02 AM EST [facility] Anion Gap 13 5 - 15 09/11/2024 10:02 AM EST [facility] Glucose 242(H) 65 - 99 mg/dL 09/11/2024 10:02 AM EST [facility] Creatinine 0.67 0.50 - 1.20 mg/dL 09/11/2024 10:02 AM EST [facility] Calcium 8.8 8.6 - 10.5 mg/dL 09/11/2024 10:02 AM EST [facility] Total Protein 6.6 6.0 - 8.0 g/dL 09/11/2024 10:02 AM EST [facility] LAB[facility] Albumin 3.3(L) 3.5 - 5.2 g/dL 09/11/2024 10:02 AM EST [facility] LAB[facility] Bilirubin, Total 8.7(H) 0.2 - 1.2 mg/dL 09/11/2024 10:02 AM EST [employer] CL[facility]ICAL PATHOLOGY LABORATORY Alkaline Phosphatase 1,141(H) 35 - 129 U/L 09/11/2024 10:02 AM EST [facility] AST 122(H) 10 - 40 U/L 09/11/2024 10:02 AM EST [facility] ALT 105(H) 10 - 40 U/L 09/11/2024 10:02 AM EST [employer] [facility] LAB[facility] BUN 18 7 - 23 mg/dL 09/11/2024 10:02 AM EST [facility] [employer] [facility] LAB[facility] eGFR >90 >=60 mL/min/1 .73m2 09/11/2024 10:02 AM EST [facility] Comment:The estimated glomer ular [...] - 4.2 g/dL 09/11/2024 10:02 AM EST [facility] [employer] [facility] LAB[facility] A/G Ratio 1.0(L) 1.5 - 3.0 09/11/2024 10:02 AM EST [email or web address] [employer] CL[facility] PATHOLOGY LABORATORY Blood Structure of peripheral vein / Unknown Venipuncture / Unknown 09/11/2024 9:08 AM EST 09/11/2024 9:25 AM EST us Yasmin Ho MD LAB BLOOD ORDERABLES Final R esult [facility] [employer] CLINICAL PATHOLOGY LABORATORY [address] [place] [address], * Microalbumin, Random Urine with Creatinine (04/26/2024 4:22 PM EDT) Microalbumin, Urine <2.0 mg/dL 04/26/2024 5:20 PM EDT [facility] CLINICAL PATHOLOGY LABORATORY Creatinine, Urine 69 15 - 278 mg/dL 04/26/2024 5:20 PM EDT [facility] CLINICAL PATHOLOGY LABORATORY Microalb/Creat Ratio, Random Urine 04/26/2024 5:20 PM EDT [facility] CLINICAL PATHOLOGY LABORATORY Comment: < 1.0 mcg/mgCr Microalbumin Reference Range: Normal ? <30 mcg/mg Creatinine Microalbuminuria ? 30-300 mcg/mg Creatinine Clinical Albuminuria >300 mcg/mg Creatinine Reference: ADA Guideline. Diabetes Care. 2004;27 (suppl 1) Urine Voided urine specimen / Unknown Non-Blood Collection / Unknown 04/26/2024 4:22 PM EDT 04/26/2024 4:35 PM EDT us Natasha Kramer MD LAB URINE ORDERABLES Final Resul t [facility] CLINICAL PATHOLOGY LABORATORY [address] [place] [address], * Hepatitis C Antibody w/Reflex to PCR (09/20/2023 12:40 PM EST) Pathologist [facility] Hepatitis C Antibody NON-REACT VIVEK NON-REACT VIVEK 09/21/2023 6:41 AM EST [employer] Comment: HCV antibody was non-reactive. There is no laboratory evidence of HCV infection. In most cases, no further action is required. However, if recent HCV exposure is suspected, a test for HCV RNA (test code 65146) is suggested. For additional information please refer to http://education.CompleteSet/faq/BRE98v4 (This link is being provided for informational/ educational purposes only.) Blood Structure of peripheral vein / Unknown Venipuncture / Unknown 09/20/2023 12:40 PM EST 09/20/2023 1:07 PM EST Narrative [facility] - 09/21/2023 6:41 AM EST [facility] Received Date:[id number] us Yasmin Ho MD LAB BLOOD ORDERABLES Final R esult [facility] [address] [facility] 3rd Floor, [place] [address], [place] [phone] [facility] [address] [facility] 3rd Floor, [place] [address], [place] [phone] from Last 3 Months or Most Recently Relevant to Health Maintenance Insurance [address] [place], [place] [address] [facility] Advance Directives Documents on File Type Date Recorded Patient Payment Manager [facility] Health Care Proxy 10/26/2023 12:55 PM 01-1 2-2024 Advance Directive 01/22/2014 12:00 AM Michael mahoney Care Directives Advance Directive 04/03/2010 12:00 AM luba begum Dec Making (Adv.Dir) * Presumed Full Code (Latest Code Status on File) Date Activated Date Inactivated Comments 05/15/2024 12:15 PM 05/16/2024 2:39 AM Care Teams Audience Coordinator Relationship Specialty Start Date End Date Sammie Maharaj: [phone] [address] [place] [address] 33360 PCP - General Family Medicine 05/15/18
--- OUTSIDE RECORDS SUMMARY | 2024-12-03 13:40 | XMS_ITS | Encounter Summary ---
Demographics Address [address] [facility] [address] [place] [address] Home Phone Mobile Phone Preferred Language Turkmen; Castilian Marital Status Single Druze Affiliation Unknown Race Unknown Ethnic Group Unknown Author Organization [facility] Address [address] [place] [address] Support Name Relationship Address Phone Orion Rubio Daughter 17 [facility] [address] [place] [address] Care Team Providers Care Motor And Chassis Inspector Name Role Phone Sammie Maharaj Primary Care Provider [phone]- [phone] Encounter Details Date Type Department Care Team (Late st Contact Info) Description 11/04/2023 Orders Only [facility] Interventional Radiology [address] [place] [address] 29690 Duncan Ragland MD [address] [place] [address] 37247 Social History Tobacco Use Types Packs/Day Years [...] Info) Description 01/08/2025 8:00 AM EDT Follow-Up [facility] Liver Transplant Services [address] [place] [address] Yasmin Ho MD [address] [place] [address] 03/22/2025 3:30 PM EDT Office Visit [facility] Diabetes Clinic [address] [place] [address]281 Sports Therapist: Natasha Rubalcava MD [address] [place] [address] 07/17/2025 8:00 AM EDT Office Visit [facility] Diabetes Clinic [address] [place] [address] 40100 Sports Therapist: Paola Vance NP [address] [place] [address] 08/06/2025 8:00 AM EDT Office Visit [facility]rology Clinic [address] [place] [address] Manuel Carpenter PA [address] [place] [address] documented as of this encounter Visit Diagnoses Not on filedocumented in this encounter Care Teams Motor And Chassis Inspector Relationship Specialty Start Date End Date Sammie Maharaj [address] [place] [address]49 PCP - General Family Medicine 05/15/18 documented as of this encounter
--- OUTSIDE RECORDS SUMMARY | 2024-12-03 13:40 | XMS_ITS | Encounter Summary ---
Author Organization [facility] Address [address] [facility] [address] [place] [address] Care Team Providers Care Cytologist Name Role Phone Sammie Maharaj MD Primary Care Provider [phone]- [phone] Loyda Glaser RN Unavailable [phone] Yasmin Ho MD Unavailable [phone] Reason for Visit * Reason Onset Date Comments Referral 12/01/2022 Encounter Details Date Type Department Care Team (Late st Contact Info) Description 12/01/2022 Telephone [facility] [address] [place] [address] Sammie Maharaj MD [address] [place], [place] [phone] Referral Social History Tobacco Use Types Packs/Day [...] [facility] Please contact pt at [phone] or Becca [phone] documented in this encounter Plan of Treatment Upcoming Encounters Date Type Department Care Team (Late st Contact Info) Description 02/25/2025 9:00 AM EDT Office Visit [facility] [address] [place], [place] [phone] Darshana Bashir, OD [address] [place] [address] documented as of this encounter Visit Diagnoses Not on filedocumented in this encounter Care Teams Cytologist Relationship Specialty Start Date End Date Sammie Maharaj MD [address] [place] [address] PCP - General Family Medicine 10/10/18 Loyda Glaser, ERVIN [address] [place] [address] Dental Technician Instructor Family Medicine 10/31/23 Yasmin Ho MD [address] [place] [address] Gastroenterology 08/29/24 Manuel Carpenter PA [address] [address] Neurology 08/29/24 Paola Tolentino NP [address] [address] Endocrinology 10/24/24 documented as of this encounter
--- OUTSIDE RECORDS SUMMARY | 2024-12-03 13:40 | XMS_ITS | Encounter Summary ---
Author Organization [facility] Address [address] [facility] 7t [place] [address] Care Team Providers Care Vacuum Repairer Name Role Phone Sammie Maharaj MD Primary Care Provider Loyda Glaser RN Unavailable [phone] Yasmin Ho MD Unavailable Encounter Details Date Type Department Care Team (Late Contact Info) Description 05/16/2023 Orders Only [facility] [address] [place] [address] Emily Marcial LPN Social History Tobacco Use [...] Description 02/25/2025 9:00 AM EDT Office Visit [facility]ET[facility] [address] [place] [address] Darshana Bashir, OD [address] [place], [place] [phone] documented as of this encounter Visit Diagnoses Not on filedocumented in this encounter Care Teams Vacuum Repairer Relationship Specialty Start Date End Date Sammie Maharaj MD [address] [place] [address] PCP - General Family Medicine 10/10/18 Loyda Glaser, RN [address] [place] [address] Fabric And Textile Factory Worker Family Medicine 10/31/23 Yasmin Ho MD [address] [place] [address] Gastroenterology 08/29/24 Manuel Carpenter PA [facility] [address] [facility] [address] Neurology 08/29/24 Paola Tolentino, DRUPAL ARCHITECT [address] [address] Endocrinology 10/24/24 documented as of this encounter
--- OUTSIDE RECORDS SUMMARY | 2024-12-03 13:41 | XMS_ITS | Encounter Summary ---
Author Organization [employer] Address [address] [facility] [address]t [place] [address] Care Team Providers Care Fly Frame Tender Name Role Phone Sammie Maharaj MD Primary Care Provider [phone] Loyda Glaser RN Unavailable [phone] Yasmin Ho MD Unavailable Reason for Visit * Reason Comments Med Refill Encounter Details Date Type Department Care Team (Late st Contact Info) Description 10/24/2024 Refill [facility] WALK[facility]IN [facility] [address] [place], [place] [phone] Sammie Maharaj MD [address] [place], [place] [phone] Microcytic anemia Social History Tobacco Use Types [...] Description 02/25/2025 9:00 AM EDT Office Visit [facility] [address] [place] [address] Mckay, Darshana, OD [address] [place] [address] documented as of this encounter Visit Diagnoses Diagnosis Microcytic anemia Unspecified iron deficiency anemia documented in this encounter Additional Health Concerns Assessment Noted Time PHQ-9 Depression Total Score: 0 10/24/19 25 9:33 AM EST documented as of this encounter Care Teams Fly Frame Tender Relationship Specialty Start Date End Date Sammie Maharaj MD [address] [place] [address] PCP - General Family Medicine 10/10/18 Loyda Glaser RN [address] [place] [address] Maintenance Painter Apprentice Family Medicine 10/31/23 Yasmin Ho MD [address] [place] [address] Gastroenterology 08/29/24 Manuel Carpenter PA U [address] [phone] Neurology 08/29/24 Paola Tolentino NP [address] [address] Endocrinology 10/24/24 documented as of this encounter
--- OUTSIDE RECORDS SUMMARY | 2024-12-03 13:41 | XMS_ITS | Encounter Summary ---
Author Organization [employer] Address [address] [facility] [address] 7[address] [place] [address] Care Team Providers Care Learning Center Instructor Name Role Phone Sammie Maharaj MD Primary Care Provider [phone] Loyda Glaser RN Unavailable [phone] Yasmin Ho MD Unavailable [phone] Reason for Visit * Reason Comments Med Refill Encounter Details Date Type Department Care Team (Late st Contact Info) Description 10/25/2023 Refill [facility] [address] [place], [place] [phone] Sammie Maharaj MD [address] [place], [place] [phone] Microcytic anemia Social History Tobacco Use Types [...] 02/25/2025 9:00 AM EDT Office Visit [facility] [address] [place], [place] [phone] Mckay, Darshana, OD [address] [place] [address] documented as of this encounter Visit Diagnoses Diagnosis Microcytic anemia Unspecified iron deficiency anemia documented in this encounter Additional Health Concerns Assessment Noted Time PHQ-9 Depression Total Score: 0 07/28/20 23 9:42 AM EDT documented as of this encounter Care Teams Learning Center Instructor Relationship Specialty Start Date End Date Sammie Maharaj MD [address] [place] [address] PCP - General Family Medicine 10/10/18 Loyda Glaser RN [address] [place] [address] Steam Press Operator Family Medicine 10/31/23 Yasmin Ho MD [address] [place] [address] Gastroenterology 08/29/24 Manuel Carpenter PA [address] [address] Neurology 08/29/24 Paola Tolentino NP [address] [address] Endocrinology 10/24/24 documented as of this encounter
--- OUTSIDE RECORDS SUMMARY | 2024-12-03 13:41 | XMS_ITS | Encounter Summary ---
Author Organization [employer] Address [address] [place] [address] Care Team Providers Care District Branch Manager Name Role Phone Oakes, Sammie JOHNSON Primary Care Provider [phone] Loyda Glaser RN Unavailable [phone] Yasmin Ho MD Unavailable Reason for Visit * Reason Comments Med Refill Encounter Details Date Type Department Care Team (Late st Contact Info) Description 11/18/2023 Refill [facility] [address] [place] [address] Tara Carlisle, DOMENICO Tinea unguium Social History [...] Description 02/25/2025 9:00 AM EDT Office Visit [facility] [address] [place] [address] Mckay, Darshana, OD [address] [place] [address] documented as of this encounter Visit Diagnoses Diagnosis Tinea unguium Dermatophytosis of nail documented in this encounter Additional Health Concerns Assessment Noted Time PHQ-9 Depression Total Score: 0 07/28/20 9:42 AM EDT documented as of this encounter Care Teams District Branch Manager Relationship Specialty Start Date End Date Sammie Maharaj MD [address] [place] [address] PCP - General Family Medicine 10/10/18 Loyda Glaser RN [address] [place] [phone] Internal Communications Specialist Family Medicine 10/31/23 Yasmin Ho MD [address] [place] [phone] Gastroenterology 08/29/[address] [facility] [address] [facility] [phone] Neurology 08/29/24 Paola Tolentino, AUDIO DIRECTOR [address] [address] Endocrinology 10/24/24 documented as of this encounter
--- OUTSIDE RECORDS SUMMARY | 2024-12-03 13:41 | XMS_ITS | Encounter Summary ---
Author Organization [facility] Address [address] [place] [address] Care Team Providers Care Lotus Notes Developer Name Role Phone Sammie Maharaj MD Primary Care Provider [phone] Loyda Glaser RN Unavailable [phone] Yasmin Ho MD Unavailable Reason for Visit * Reason Onset Date Comments Appointment Request 10/20/2023 Encounter Details Date Type Department Care Team ([facility] st Contact Info) Description 10/20/2023 Telephone [facility] [address] [place] [address] Sammie Maharaj MD [address] [place], [place] [phone] Appointment Request Social History Tobacco Use Types Packs/Day Years Used Date Smoking Tobacco: Never Smokeless Tobacco: Never Depression Answer Date Recorded Patient Health Questionnaire-9 Score 0 07/28/2023 Patient Health Questionnaire-9 Score 0 07/28/2023 Last PHQ-9: Questionnaire Data Not on file 1 Housing Stability Answer Date Recorded What is your housing situation today? I have concepcionrupal marie 07/26/[address] you [...] and reschedule appt for 11/03/2023 @ 9:30 development writer did cancel per patients request documented in this encounter Plan of Treatment Upcoming Encounters Date Type Department Care Team (Late st Contact Info) Description 02/25/2025 9:00 AM EDT Office Visit [facility] [address] [place] [address] Mckay, Darshana, OD [address] [place] [address] documented as of this encounter Visit Diagnoses Not on filedocumented in this encounter Additional Health Concerns Assessment Noted Time PHQ-9 Depression Total Score: 0 07/28/20 23 9:42 AM EDT documented as of this encounter Care Teams Lotus Notes Developer Relationship Specialty Start Date End Date Sammie Maharaj MD [address] [place] [address] PCP - General Family Medicine 10/10/18 Loyda Glaser RN [address] [place] [id number] Insole Taper Family Medicine 10/31/23 Yasmin Ho MD [address] [place] [address] [phone] Gastroenterology 08/29/24 Manuel Carpenter PA [address] [phone] Neurology 08/29/24 Paola Tolentino, BUFFING MACHINE TENDER [address] [address] Endocrinology 10/24/24 documented as of this encounter
--- OUTSIDE RECORDS SUMMARY | 2024-12-03 13:41 | XMS_ITS | Clinical Summary ---
Author Organization [employer] Address [address] [place] [address] [address] [place] [address] Care Team Providers Care Resource Room Special Education Teacher Name Role Phone Nicko, Sammie JOHNSON Primary Care Provider [phone] Loyda Glaser RN Unavailable [phone] Yasmin Ho MD Unavailable Allergies Active Allergy Reactions Criticality Noted Date [...] Active beta carotene (vitamin A) 3 MG (01618 UT) capsule Take 1 capsule by mouth Once per day. 10/24/19 25 Active predniSONE (Deltasone) 20 MG tablet Take 1 tablet (20 mg) by mouth Once per day for 5 days. 5 tablet 12/03/19 25 025 Active lactulose (Chronulac) 10 GM/15ML solution Take 20 g by mouth 3 times daily. Patient reported 025 Discontinued(Me d list cleanup (will not trigger notification to Pharmacy)) Active Problems Patient Care Coordination No te Formatting of this note migh t be different from the original. [facility] provider line [phone], called 09/29/23 Kalebrobert Giulianoalyssa Benjy [phone]. cell [phone] TUBE MAKING MACHINE OPERATOR services via BERENICE, CHEPE Laxmi Mas Problem Noted Date Diagnosed Date Atopic dermatitis in adult 12/03/2024 Assessment & Plan (12/03/2024 11:56 AM EST): Unclear if related to Vit A vs Zonisamide. Advised to hold Vit A and topical creams, continue zonisamide for now. Take prednisone 20 mg x 5 days, will order baseline LFTs and CBC with sed rate. Follow-up in 2 days for health status check and refer to dermatology if needed. I spoke with Liz at [facility] liver transplant clinic, explained the situation and ask them to run the pictures and case by catcher plug in case this is not related to liver disease which she is unlikely. Chronic right shoulder pain 07/09/2024 Overview (07/09/2024): [...] Overview (06/01/2024): CT abd pelvis ordered by [facility] liver clinic and dated 01/28/24 IMPRESSION: [...] appear significantly changed from 2021, possibly reactive. [facility] not from 02/24/24 Telephone Encounter - Katy Boateng RN 10:24 AM LVM for patient using bag checker, Sazze [id number], about results of MRI and scheduling of [...] AM EST): CT abd pelvis ordered by [facility] liver clinic and dated 01/28/24 IMPRESSION: [...] RN 10:24 AM LVM for patient using bag checker, Arnrob [id number], about results of MRI and scheduling of [...] AM EDT): CT abd pelvis ordered by [facility] liver clinic and dated 01/28/24 IMPRESSION: [...] appear significantly changed from 2021, possibly reactive. 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 I called [facility] provider line [phone], 09/29/23 and spoke to Breanna Burleson [phone]. He reported extensive hx of working it pt and she was on the waiting list for starvros. Her TUBE MAKING MACHINE OPERATOR will be Laxmi Mas her friend. -She has been approved for TUBE MAKING MACHINE OPERATOR hours but have not started yet as of 01/18/2024 Assessment & Plan (01/18/2024 9:17 AM EDT): -she has fired several double spindle shaper operator in the past. I called [facility] provider line [phone], 09/29/23 and spoke to Breanna Burleson [phone]. He reported extensive hx of working it pt and she was on the waiting list for starvros. Her TUBE MAKING MACHINE OPERATOR will be Laxmi Mas her friend. -She has been approved for TUBE MAKING MACHINE OPERATOR hours but have not started yet as of 01/18/2024 Pain in hand and fingers 09/29/2023 Overview (01/18/2024): -refer to occupational therapy 01/18/2024 Assessment & Plan (09/29/2023 11:55 AM EST): No etiology on exam. Pt high risk for dyupetryns. Recommend warm wraps and rest. Other specified health status 07/21/2023 Overview (07/09/2024): -next physical exam due after 07/09/25 -eye care facilitated by [facility] -dental home is [facility] -health care proxy paperwork given 10/20/23. Filed 07/09/24 Assessment & Plan (10/24/2024 9:48 AM EST): -next physical exam due after 07/09/25 -eye care facilitated by [facility] -dental home is [facility] -health care proxy paperwork given 10/20/23. Filed 07/09/24 Assessment & Plan (07/09/2024 10:17 AM EDT): -next physical exam due after 07/09/25 -eye care facilitated by [facility] -dental home is [facility] -health care proxy paperwork given 10/20/23. Filed 07/09/24 Assessment & Plan (01/18/2024 9:16 AM EDT): -next physical exam due after 07/28/2024 -eye care facilitated by [facility] -dental home is none -health care proxy paperwork given 10/20/23 Assessment & Plan (10/20/2023 9:33 AM EST): -next physical exam due after 07/28/2024 -eye care facilitated by [facility] referral placed 09/29/23 -dental home is none -health care proxy paperwork given 10/20/23 Assessment & Plan (09/29/2023 11:46 AM EST): -next physical exam due after 07/28/2024 -eye care facilitated by [facility] referral placed 09/29/23 -dental home is none Assessment & Plan (07/28/2023 10:05 AM EDT): -next physical exam due after 07/28/2024 -eye care facilitated by [facility] -dental home is none Type 2 [...] from 18-14 by endo 04/2024 Seen by [facility] endocrinology 04/18/24 Hemoglobin A1c is falsely [...] approval for her to upgrade to the [employer] lilia 3 CGM. Assessment & Plan (10/24/2024 9:48 [...] from 18-14 by endo 04/2024 Seen by [facility] endocrinology 04/18/24 Hemoglobin A1c is falsely [...] upgrade to the freestyle lilia 3 CGM. Assessment & Plan (07/09/2024 11:13 [...] from 18-14 by endo 04/2024 Seen by [facility] endocrinology 04/18/24 Hemoglobin A1c is falsely [...] upgrade to the freestyle lilia 3 CGM. Assessment & Plan (01/18/2024 9:24 [...] 2017 was negative. She is followed by [facility] Liver Clinic. -liver biopsy 2019 mild, [...] services with Dr. Yasmin Ho MD of [facility] 02/2024, note reviewed: She [...] 2021, possibly reactive. -liver biopsy done at [facility] 05/01/24, results pending -liver biopsy results [...] Saw Transplant Hepatology and GI specialist at [facility] on 09/11/24. Per note, she remains active on LT waitlist with an updated MELD 3.0 of 19 based on blood work in April 2024. Etiology of her liver disease and progressive jaundice remains unclear despite prior MRI/MRCP and interval liver biopsy in May 2024 which was non-specific with non-specific findings which we reviewed with patient and [id number] again today. We recommended continuation of empiric [...] 2017 was negative. She is followed by [facility] Liver Clinic. -liver biopsy 2019 mild, [...] services with Dr. Yasmin Ho MD of [facility] 02/2024, note reviewed: She [...] 202, possibly reactive. -liver biopsy done at [facility] 05/01/24, results pending -liver biopsy results [...] Saw Transplant Hepatology and GI specialist at [facility] on 09/11/24. Per note, she remains active on LT waitlist with an updated MELD 3.0 of 19 based on blood work in April 2024. Etiology of her liver disease and progressive jaundice remains unclear despite prior MRI/MRCP and interval liver biopsy in May 2024 which was non-specific with non-specific findings which we reviewed with patient and [id number]-sey again today. We recommended continuation of empiric [...] 2017 was negative. She is followed by [facility] Liver Clinic. -liver biopsy 2019 mild, [...] services with Dr. Yasmin Ho MD of [facility] 02/2024, note reviewed: She [...] 2021, possibly reactive. -liver biopsy done at [facility] 05/01/24, results pending -liver biopsy results [...] not drive), baths or swimming. Awaiting new TUBE MAKING MACHINE OPERATOR provider. Daughter aware of how to call 911. Followed by neurologist, -followed by Dr. Jono Eden at [facility]. Next appointment 08/2024 -she self dc? d her aspirin. I recommended she called neurology to get refills on her medication -she has been seizure free with Zonisamide 200 mg nightly and ran out of supplies 6 months ago. I recommend to resume Zonisamide since her risk of recurrent seizure is over 60% due to her prior hemorrhagic stroke. -Saw Neurologist at [facility] 08/20/24, Plan: continue ZNS 200 mg [...] not drive), baths or swimming. Awaiting new TUBE MAKING MACHINE OPERATOR provider. Daughter aware of how to call 911. Followed by neurologist, -followed by Dr. Jono Eden at [facility]. Next appointment 08/2024 -she self dc? d her aspirin. I recommended she called neurology to get refills on her medication -she has been seizure free with Zonisamide 200 mg nightly and ran out of supplies 6 months ago. I recommend to resume Zonisamide since her risk of recurrent seizure is over 60% due to her prior hemorrhagic stroke. -Saw Neurologist at [facility] 08/20/24, Plan: continue ZNS 200 mg daily and follow up in one year, or sooner if needed. -she has no idea if she is taking this. [facility] rec referral placed 10/24/24 Assessment & Plan (01/18/2024 [...] not drive), baths or swimming. Awaiting new TUBE MAKING MACHINE OPERATOR provider. Daughter aware of how to call 911. Followed by neurologist, -followed by Dr. Jono Eden at [facility]. Next appointment 08/2024 -she self dc? d [...] -Has follow up on Aug 20 at [facility] Assessment & Plan (10/20/2023 8:57 AM [...] 2017 was negative. She is followed by [facility] Liver Clinic. -liver biopsy 2019 mild, [...] services with Dr. Yasmin Ho MD of [facility] 12/12/2023, note reviewed Cirrhosis: -Compensated: Yes [...] diet discussed. Avoid hepatotoxic agents. -Followed by: [facility] -continue ursodiol therapy given marked AP elevation and potential for AMA negative PCB. -transplant candidacy will be determined by multidisciplinary transplant committee after all appropriate testing has been performed. -Has follow up with liver transplant customer experience consultant on at [facility] -Per pt, On liver transplant list since December [...] 2017 was negative. She is followed by [facility] Liver Clinic. -seen by Liver Transplant [...] screening: ultrasound AFP 01/28/2020 recently reordered by GI. -Varices screening: No longer needed due to TIPS. Dr. Aguilera states pt no longer needs Nadolol -Hx encephalopathy: None, self discontinue lactulose -Hx SBP: None -HCC screening abdominal US Aug 2023 no evidence of HCC -Hep A and B immune -Low sodium diet discussed. Avoid hepatotoxic agents. -Followed by: [facility] -continue ursodiol therapy given marked AP elevation and potential for AMA negative PCB. -transplant candidacy will be determined by multidisciplinary transplant committee after all appropriate testing has been performed. -call place by me to [facility] critical care nurse at [facility] [phone] to stress the urgency of TUBE MAKING MACHINE OPERATOR services and increase level of care. He [...] 2017 was negative. She is followed by [facility] Liver Clinic. -seen by Liver Transplant [...] screening: ultrasound AFP 01/28/2020 recently reordered by GI. -Varices screening: No longer needed due to TIPS. Dr. Aguilera states pt no longer needs Nadolol -Hx encephalopathy: None, self discontinue lactulose -Hx SBP: None -HCC screening abdominal US Aug 2023 no evidence of HCC -Hep A and B immune -Low sodium diet discussed. Avoid hepatotoxic agents. -Followed by: [facility] GI -continue ursodiol therapy given marked AP elevation and potential for AMA negative PCB. -transplant candidacy will be determined by multidisciplinary transplant committee after all appropriate testing has been performed. -call place by me to [facility] critical care nurse at [facility] [phone] cell [phone] to stress the urgency of TUBE MAKING MACHINE OPERATOR services and increase level of care. He [...] 2017 was negative. She is followed by [facility] Liver Clinic. The possibility for liver [...] in her care. She has had multiple double spindle shaper operator which she has fired and multiple case [...] in her care. She has had multiple double spindle shaper operator which she has fired and multiple case [...] in her care. She has had multiple double spindle shaper operator which she has fired and multiple case [...] in her care. She has had multiple double spindle shaper operator which she has fired and multiple case [...] Encounters Date Type Department Care Team Description 12/03/2024 11:00 AM EST Office Visit [facility] [address] [place] [phone] Rocio Bell MD Atopic dermatitis in adult (Primary Dx); End stage liver disease (CMS/HCC) 11/13/2024 Refill [facility] [address] [place] [address] [phone] Sammie Maharaj MD Tinea unguium 11/02/2024 9:00 AM EST Clinical Support [facility] [address] [place] [phone] Laya Horan, DomingaD Type 2 diabetes mellitus with hyperglycemia, with long-term current use of insulin (CMS/HCC) (Primary Dx); Complex partial seizure (CMS/HCC); End stage liver disease (CMS/HCC) 10/24/2024 9:30 AM EST Office Visit [facility] [address] [place] [phone] Sammie Maharaj MD Complex partial seizure (CMS/HCC) (Primary Dx); End stage liver disease (CMS/HCC); Type 2 diabetes mellitus with hyperglycemia, with long-term current use of insulin (CMS/HCC); Complex care coordination; Abnormal CT of the abdomen; Other specified health status; Tray muñozum 10/24/2024 Travel 10/24/2024 Refill [facility] [address] [place] [phone] Sammie Maharaj MD Microcytic anemia 10/23/2024 Telephone [facility] [address] [place] [phone] Laya Azul MA 10/23/2024 Telephone [facility] [address] [place] [phone] Laya Azul MA chartprep 09/26/2024 Refill [facility] [address] [place] [address] Sammie Maharaj MD Tinea unguium from Last 3 Months Immunizations Name Administration Dates Next Due DTaP, 5 pertussis antigens 04/03/2010 Hep A, Adult 05/01/2009,02/29/2008 Hep B, adult 09/29/2023,07/28/2023,07/13/2019 Hib ([facility]) 06/11/2009 Influenza injectable quadriv alent IIV4 with preservative 10/12/2017 Influenza injectable quadriv alent preservative free 07/28/2023,06/25/2022,11/10/2020,07/13 Influenza, IIV3, injectable 07/04/2014, 9 Influenza, Split (incl. stevenson fied surface antigen) 06/14/2013 Influenza, seasonal, injecta ble, preservative free 07/09/2024 Meningococcal MCV4P ACYW-135 06/11/2009 PPD Test 04/03/2010 Pfizer Covid-19 Vaccine 12+ 07/09/2024, 3 Pneumococcal Conjugate PCV 20 07/28/2023 Pneumococcal Polysaccharide [...] Mass Index 23.7 12/03/2024 10:39 AM EST Plan of Treatment Upcoming Encounters Date Type Department Care Team (Late st Contact Info) Description 02/25/2025 9:00 AM EDT Office Visit [facility] [address] [place] [address] Mckay, Darshana, OD [address] [place] [address] Health Maintenance Due Date Last Done Comments Family Planning (PISQ) 1996 Diabetes: Hemoglobin A1C 10/08/2024 024, 01/18/2024, 10/28/2023, Additional history exists Mammogram 09/06/2025 09/06/2023 Alcohol/Substance Use Screening 10/24/2025 10/24/2024 Depression Screening 10/24/2025 10/24/2024, 10/24/19 Diabetes: Foot Exam 10/24/2025 10/24/2024, 10/24/2024, 10/24/2024, Additional history exists Lipid Panel 10/24/2025 10/24/2024, 07/10, 12/07/2021, Additional history exists SDOH Screening 10/24/2025 10/24/2024 Diabetes: Urine Protein Screening 11/05/2025 11/05/2024, 04/26/2024, 07/28/2023, Additional history exists Eye Exam 11/11/2025 11/11/2023, 02/0 11/2023, 11/11/2023, Additional history exists Tobacco Screening 12/03/2025 12/03/2024 Cervical Cancer Screening 03/25/2026 HPV/Cotest 03/25/2026 Pap [...] 5 Years) and At-Risk Patients (6 to 49) Years) Completed 07/28/2023, 06/26/2011, 06/11/2009, Additional history [...] Procedure Name Priority Date/Time Associated Diagnosis Comments AMMONIA (P) Routine 12/03/2024 12:21 PM EST End stage liver disease (CMS/HCC) C-REACTIVE PROTEIN Routine 12/03/2024 12 :21 PM EST Atopic dermatitis in adult HEPATIC FUNCTION PANEL Routine 12:21 PM EST Atopic dermatitis in adult SED RATE BY MODIFIED WESTERGREN Routine 12/03/2024 12:21 PM EST Atopic dermatitis in adult CBC WITH AUTO DIFFERENTIAL Routine 12/03/2024 12:21 PM EST Atopic dermatitis in adult ALBUMIN, RANDOM URINE W/CREATININE Routine 11/05/2024 10:20 [...] with long-term current use of insulin (CMS/HCC) POCT GLYCOSYLATED HEMOGLOBIN (HGB A1C) Routine 07/09/2024 3:59 PM EDT Type 2 diabetes mellitus with hyperglycemia, with long-term current use of insulin ([facility]/HCC) BI MAMMOGRAM SCREENING TOMOSYNTHESIS BILATERAL Routine 09/06/2023 10:14 AM EST HEPATITIS C ANTIBODY Routine 07/28/2023 10:55 AM EDT Routine screening for STI (sexually transmitted infection) HIV ANTIBODY/ANTIGEN ([facility] D[facility]) Routine 07/28/2023 10:55 AM EDT PAP SMEAR Routine 03/25/2021 12:00 AM EDT from Last 3 Months or Most Recently Relevant to Health Maintenance Results * (ABNORMAL) CBC auto differential (12/03/2024 12:21 PM EST) White Blood Count 7.3 4.8 - 10.8 X10*3/uL [facility] Red Blood Count 4.10(L) 4.20 - 5.50 X10*6/uL [facility] Hemoglobin 12.9 12.0 - 16.0 g/dl [facility] Hematocrit 38.1 37.0 - 47.0 % [facility] Mean Corpuscular Volume 92.9 80.0 - 98.0 fL [facility] Mean Corpuscular Hemoglobin 31.5 27.0 - 33.0 pg [facility] Mean Corpuscular HGB Conc 33.9 31.0 - 35.0 g/dl [facility] Red Cell Distribution Width 13.5 11.0 - 16.0 % [facility] Platelet Count 114(L) 160 - 400 X10*3/uL [facility] Mean Platelet Volume 13.0(H) 9.4 - 12.3 fL [facility] Neutrophils Percent Auto 78.5(H) 45 - 73 % [facility] Imm Gran Pct Auto 0.6(H) 0.0 - 0.4 % [facility] Lymphocytes Percent Auto 9.2(L) 20 - 40 % [facility] Monocytes Percent Auto 10.7 2 - 11 % [facility] Eosinophils Percent Auto 0.7 0 - 4 % [facility] Basophils Percent Auto 0.3 0 - 2 % [facility] NRBC Pct Auto 0.0 0.0 - 0.2 /100WBC [facility] Neutrophils Absolute Auto 5.7 2.0 - 8.3 x10*3/uL [facility] Imm Gran Abs Auto 0.04(H) 0.00 - 0.03 X10*3/uL [facility] Lymphocytes Absolute Auto 0.7(L) 1.2 - 4.9 X10*3/uL [facility] Monocytes Absolute Auto 0.8 0.1 - 1.2 X10*3/uL [facility] Eosinophils Absolute Auto 0.1 0.0 - 0.4 X10*3/uL [facility] Basophils Absolute Auto 0.0 0.0 - 0.2 X10*3/uL [facility] NRBC Abs Auto 0.000 0.0 - 0.012 X10*3/uL [facility] Blood Venous blood specimen / Unknown 12/03/2024 12:21 PM EST 12/03/2024 12:21 PM EST us Rocio Bell MD LAB BLOOD ORDERABLES Fin al Result Performing Organization Address [facility] Co de Phone Number [facility] [address] [place] [phone] * (ABNORMAL) Sed Rate by Modified Delanoergren (12/03/2024 12:21 PM EST) Erythrocyte Sedimentation Rate 67(H) 0 - 20 MM/HR [facility] Comment:Patients with polycy themia and many hemoglobin abnormalitiesmay have depressed sed rates whereas patients with anemiamay have elevated sed rates. Blood Venous blood specimen / Unknown 12/03/2024 12:21 PM EST 12/03/2024 12:21 PM EST Rocio Bell MD LAB BLOOD ORDERABLES Fin al Result Performing Organization Address [facility] Co de Phone Number [facility] [address] [place] [address] [phone] * (ABNORMAL) C-reactive Protein (12/03/2024 12:21 PM EST) C Reactive Protein 17.87(H) < or = 0.50 mg/dL [facility] Blood Venous blood specimen / Unknown 12/03/2024 12:21 PM EST 12/03/2024 12:21 PM EST Rocio Bell MD LAB BLOOD ORDERABLES Fin al Result Performing Organization Address [facility] Co de Phone Number [facility] [address] [place] [address] [phone] * (ABNORMAL) Ammonia, Plasma (12/03/2024 12:21 PM EST) Ammonia (P) 72(H) 13 - 55 umol/L [facility] Blood Venous blood specimen / Unknown 12/03/2024 12:21 PM EST 12/03/2024 12:21 PM EST us Rocio Bell MD LAB BLOOD ORDERABLES Fin al Result Performing Organization Address City/[facility] Co de Phone Number [facility] [address] [place] [address] [phone] * (ABNORMAL) Hepatic Function Panel (12/03/2024 12:21 PM EST) Only the most recent of2 resultswithin the time period is included. Bilirubin, Total 11.9(H) 0.0 - 1.0 mg/dL [facility] Comment:Mild Icterus. Bilirubin, Direct 9.3(H) 0.0 - 0.5 mg/dL [facility] Comment:Mild Icterus. Aspartate Amino Transferase 108(H) 5 - 31 U/L [facility] Alanine Aminotransferase 95(H) 0 - 31 U/L [facility] Total Protein 6.8 6.5 - 8.0 g/dL [facility] Albumin Level 3.0(L) 3.5 - 5.0 g/dL [facility] Alkaline Phosphatase 1,064(H) 39 - 117 U/L [facility] Blood Venous blood specimen / Unknown 12/03/2024 12:21 PM EST 12/03/2024 12:21 PM EST Rocio Bell MD LAB BLOOD ORDERABLES Fin al Result Performing Organization Address City/[facility]/ZIP Co de Phone Number [facility] [address] [place] [phone] * Albumin, Random Urine W/Creatinine (11/05/2024 10:20 AM EST) Creatinine, Urine 59.34 mg/dL [facility] Microalbumin Urine <5.0 mg/L [facility] Microalbum Creatinine Ratio Ur TNP <30 ug/mg cr [facility] Comment:Unable to calculate albumin/creatinine ratio due to lowmicroalbumin or creatinine result. Urine 11/05/2024 10:2 0 AM EST 11/05/2024 11:21 AM EST us Sammie Maharaj MD LAB URINE ORDERABLES Final Result [facility] [facility] [address] [place] [address] [phone] * (ABNORMAL) Lipid Panel, Standard (10/24/2024 9:59 AM EST) Triglycerides 91 <150 mg/dL [facility] Comment:Mild Icterus.Interpr et result with caution.Desirable Triglyceride: less than 150 mg/dLBorderline High Triglyceride 150-199 mg/dLHigh Triglyceride: 200-499 mg/dLVery High Triglyceride: greater than or equal to 5OO mg/dL Cholesterol 132 <200 mg/dL [facility] Comment:Mild Icterus.Interpr et result with caution.Desirable Cholesterol: less than 200 mg/dLBorderline High Cholesterol: 200-239 mg/dLHigh Cholesterol: greater than 239 mg/dL LDL Cholesterol Calculated 92 <100 mg/dL [facility] Comment:Desirable LDL: less than 100 mg/dLNear Optimal/Above Optimal LDL: 110- 129 mg/dLBorderline High LDL: 130-159 mg/dLHigh LDL: 160-189 mg/dLVery High LDL: greater than or equal to 190 mg/dL HDL Cholesterol 22(L) >40 mg/dL [facility] Comment:Desirable HDL: great er than 40 mg/dL Note: This HDL assay may give artificially low results in patients with liver disease. Blood Venous blood specimen / Unknown 10/24/2024 9:59 AM EST 10/24/2024 11:05 AM EST us Sammie Maharaj MD LAB BLOOD ORDERABLES Final Result [facility] [address] [place] [address] [phone] * (ABNORMAL) Basic Metabolic Panel (10/24/2024 9:59 AM EST) Pathologist [facility] Sodium 140 135 - 145 mmol/L [facility] Potassium 3.4 3.3 - 5.1 mmol/L [facility] Chloride 115(H) 96 - 108 mmol/L [facility] Carbon Dioxide 20(L) 22 - 29 mmol/L [facility] Anion Gap 8(L) 12 - 20 [facility] Urea Nitrogen (BUN) 11 9 - 16 mg/dL [facility] Creatinine, Serum 0.48(L) 0.5 - 1.4 mg/dL [facility] Estimated Glomerular Filt Rate >60 [facility] Comment:Chronic Kidney Disea se: Estimated GFR < 60 mL/min/1.71i9Kcmrbt Kidney Disease: Estimated GFR < 15 mL/min/1.73m2 Glucose 93 60 - 115 mg/dL [facility] Calcium 8.3(L) 8.4 - 10.2 mg/dL [facility] Blood Venous blood specimen / Unknown 10/24/2024 9:59 AM EST 10/24/2024 11:05 AM EST Sammie Maharaj MD LAB BLOOD ORDERABLES Final Result Performing Organization Address City/State/[facility] Co de Phone Number [facility] [address] [place] [phone] * POCT glycosylated hemoglobin (Hgb A1c) (07/09/2024 3:59 PM EDT) Hemoglobin A1C 4.6 4.0 - 6.0 % QC Media Lot # [id number] Lot# Expiration Date [id number] Blood Capillary blood specimen / Unknown 07/09/2024 3:59 PM EDT Sammie Maharaj MD POINT OF CARE TEST ENTER/E DIT ORDERABLES Final Result * BI Mammogram Screening Tomosynthesis Bilateral (09/06/2023 10:14 AM EST) Anatomical Region Laterality Modality Breast Bilateral Mammography 09/06/2023 10:1 4 AM EST Narrative 09/19/2023 10:41 AM EST ? [facility] ? [address] ?[place] [address] ? Mammography Report ? Signed ? Patient: Fabiano Chery,Aubrie ?MR#: M ?? [id number] ? : 1980 ?Acct:[id number] ? Age/Sex: 43 / F ?ADM Date: 09/06/23 ? Loc: HO.MAMMO ? Attending Dr: Sammie Maharaj MD ? Ordering Physician: Sammie Maharaj MD ?Results: 1N ?? egative ? Date of Service: 09/06/23 ?Follow Up: 1 Year From Orig ?? inal Mammogram ? Procedure(s): MM tomosynthesis screening BI ?? Accession Number(s): [id number] ? cc: Sammie Maharaj MD ? EXAMINATION: [...] MD in OV> ? 09/19/23 1037 ? DD/ 1014 ? TD/TT: ? Or Manager: ? Procedure Note Donsheldonter, Image - 09/19/2023 [facility] [address] [place] [address] Mammography Report Signed Patient: Aubrie BrewerMR#: [id number] : 1980Acct:[id number] Age/Sex: 43 / FADM Date: 09/06/23 Loc: HO.MAMMO Attending Dr: Sammie Maharaj MD Ordering Physician: Sammie Maharaj MDResults: 1N egative Date of Service: 09/06/23Follow Up: 1 Year From Orig inal Mammogram Procedure(s): MM tomosynthesis screening BI Accession Number(s): [id number] cc: Sammie Maharaj MD EXAMINATION: MM SCREENING [...] in OV> 09/19/23 1037 DD/ 1014 TD/TT: Or Manager: Sammie Maharaj MD IMG BI PROCEDURES Final Re sult * Hepatitis C Ab (07/28/2023 10:55 AM EDT) Hepatitis C Antibody Nonreactive Nonreactive [facility] Comment:Antibodies to HCV no t detected; does not exclude early acuteHCV infection. Blood 07/28/2023 10:5 5 AM EDT 07/28/2023 1:11 PM EDT Sammie Maharaj MD LAB BLOOD ORDERABLES Final Result [facility] [address] [place] [phone] * HIV Ab/Ag ([facility]) (07/28/2023 10:55 AM EDT) HIV AB/AG Nonreactive Nonreactive [facility] Comment:HIV-1 p24 Ag and/or HIV-1/HIV-2 Ab not detected.A test result that is nonreactive does not exclude thepossibility of exposure to or infection with HIV-1 and/orHIV-2. Nonreactive results in this assay for individualswith prior exposure to HIV-1 and/or HIV-2 may be due toantigen and antibody levels that are below the limit ofdetection of this assay.The The [facility] HIV Ag/Ab Combo assay result andsupplemental assay results should be interpreted inconjunction with the patient's clinical presentation,history and other laboratory results. If the results areinconsistent with clinical evidence, additional testing issuggested to confirm the result. 07/28/2023 10:5 5 AM EDT 07/28/2023 1:11 PM EDT Sammie Maharaj MD LAB BLOOD ORDERABLES Final Result [facility] [address] [place] [phone] * Pap Smear (03/25/2021 12:00 AM EDT) Swab Brendon Anthony MD LAB CYTOLOGY ORDERABLES F inal Result IMAGING from Last 3 Months or Most Recently Relevant to Health Maintenance Insurance [facility] Advance Directives Documents on File Type Date Recorded Patient Sales Team Member Expl anation Advance Directives and Living Will 07/09/2024 Health Care Proxy 07/09/24 Care Teams Resource Room Special Education Teacher Relationship Specialty Start Date End Date Sammie Maharaj MD [address] [place] [phone] PCP - General Family Medicine 10/10/18 Loyda Glaser, ERVIN [address] [place] [address] Medical Records Receptionist Family Medicine 10/31/23 Yasmin Ho MD [address] [place] [phone] Gastroenterology 08/29/24 Manuel Carpenter PA [address] [address] Neurology 08/29/24 Paola Tolentino NP [address] [phone] Endocrinology 10/24/24
== END 2024-12-03 11:51 | disposition home or self-care (01) ==
LOC: HO.LAB 11:50
PROVIDERS: PCP Family Medicine; Visit Provider Internal Medicine
DX: L20.9 Atopic dermatitis, unspecified (principal); K72.10 Chronic hepatic failure without coma
CPT/HCPCS: 36415; 80076; 82140; 85025; 85652; 86140

== ENCOUNTER 2024-12-07 18:20 | Inpatient (IN) | payer OTHER, SELFPAY ==
[2024-12-07 18:36] VITALS: BP 114/63; PULSE 84; RESP 18; TEMP 37.1; O2SAT 100; BMI 24.6
--- NOTE | 2024-12-07 18:37 | ED_ITS ---
HPI - General Adult General Chief complaint: General Medical Stated complaint: R ear swollen / puss coming from back L ear same Time Seen by Provider: 12/08/24 00:30 Source: patient Mode of arrival: ambulatory Limitations: no limitations History of Present Illness ED Provider: HPI narrative: 44-year-old female with a past medical history depression, HTN, diabetic esophageal varices with bleeding, seizure disorder, CVA, non alcoholic liver disease presenting to the ED c/o b/l Ear pinna swelling and redness with serous discharge started yesterday started on the right ear spreading to the left ear patient was seen her PCP on 12/03 and started on prednisone for the facial swelling and [place] Related Data Previous Rx's ?Medication ?Instructions ?Recorded lactulose 20 gram/30 mL oral 20 g (30 mL) PO BID #1,200 mL 01/28/22 solution Allergies Allergy/AdvReac Type Severity Reaction Status Date / Time latex [Latex] Allergy Mild RASH Verified 12/07/24 18:40 Review of Systems 2 Review of Systems: Yes all other systems are reviewed and are negative PMF Past Medical History Medical History Memory loss Depression Portal hypertension Esophageal varices with bleeding Seizure disorder Left sided cerebral hemisphere cerebrovascular accident (CVA) Chronic nonalcoholic liver disease Social History Social History Patient Tobacco Use Status: Never used Tobacco Smoked in Last 30 Days: No Use of substances other than those prescribed or required for medical reasons: No Advance Directives: No Advance Directives Information Provided: No Do you have a plan to hurt others: No Plan Nutrition Risks: No Nutritional Risk Patient : No Physical Exam ED Vital Signs: Vital Signs - 24 hr 12/07/24 18:36 12/07/24 22:37 Temperature 98.7 F 97.6 F Pulse Rate 84 91 Respiratory Rate 18 18 Blood Pressure 114/63 99/57 L Pulse Oximetry 100 100 Oxygen Delivery Method Room Air Room Air BMI result Body Mass Index 24.6 Appearance: Alert. Oriented X3. No acute distress. Eyes: Deeply icteric+ ENT: Pharynx normal. Oral Mucosa moist bilateral swelling of the ear pinna right more than the left with blisters on the right pinna containing serous fluid Neck: Normal inspection. Neck supple. CVS: Normal heart rate and rhythm. Pulses normal. Respiratory: No respiratory distress. Equal air entry bilateral, no wheezing/rales/rhonchi Abdomen: Soft and nontender. Bowel sounds are present, no mass palpable, no CVA tenderness Skin: Skin warm and dry. Normal skin color. Normal skin turgor. Extremities: No lower extremity edema. No calf tenderness Neuro: Oriented X 3. No motor deficit. Course Course Course Narrative: This is a Rapid Medical Exam performed in triage by Porsha Quiroz PA-C. Full HPI, ROS and PE to be performed by primary ED provider. 44-year-old female with a past medical history depression, HTN, esophageal varices with bleeding, seizure disorder, CVA, non alcoholic liver disease presenting to the ED c/o jaundice & b/l ear pain/swelling & pus drainage x few days. +nausea. denies fever, vomiting, abd pain, no recent new exposures/swimming PE: ++jaundice, +b/l ear swelling +pus to R ear Plan: Labs, UA, viral testing Medications Administered Generic Name Dose Route Start Last Admin Trade Name Freq PRN Reason Stop Dose Admin Enoxaparin Sodium 40 mg 12/08/24 02:00 12/08/24 03:02 Enoxaparin Sodium 40 Mg/0.4 Ml Syringe SUBCUT Not Given Q24H CEASAR Insulin Glargine 10 unit 12/08/24 01:55 12/08/24 02:24 Insulin Glargine,Hum.Rec.Anlog 100 Unit/Ml 10 Ml Vial SUBCUT Not Given BEDTIME CEASAR Discontinued Medications Generic Name Dose Route Start Last Admin Trade Name Freq PRN Reason Stop Dose Admin Cefepime HCl 2 gm in 50 mls @ 100 mls/hr 12/08/24 00:54 12/08/24 02:03 Maxipime IV 12/08/24 01:23 Infused ONCE ONE Infusion Lactated Ringer's 1,000 mls @ 999 mls/hr 12/08/24 02:15 12/08/24 04:03 Lr IV 12/08/24 03:15 Infused .Q1H1M CEASAR Infusion Potassium Chloride 40 meq 12/08/24 06:21 12/08/24 06:49 Potassium Chloride Packet 20 Meq Packet PO 12/08/24 06:22 40 meq ONCE ONE Administration Potassium Chloride 20 meq 12/08/24 06:21 12/08/24 06:49 Potassium Chloride Er 20 Meq Tab.Er.Prt PO 12/08/24 06:22 20 meq ONCE ONE Administration Medical Decision Making Medical Decision Making [facility] Narrative: Patient is diabetic with perichondritis admit patient for IV antibiotics epi for possible Pseudomonas infection Differential Diagnosis Differential Diagnoses: The differential diagnosis associated with the presentation includes Admission/Observation Consideration of admission/observation: Escalation of care including admission/observation considered Consult Healthcare Provider Management of the patient was discussed with: Hospitalist Lab Data [facility] Lab Attestation statement: I reviewed the patient's lab results. 12/08/24 04:18 12/08/24 04:18 Labs: Lab Results 12/07/24 12/07/24 12/08/24 Range/Units 19:24 19:25 01:12 WBC 7.6 (4.8-10.8) X10*3/uL RBC 3.43 L (4.20-5.50) X10*6/uL Hgb 11.1 L (12.0-16.0) g/dl Hct 31.0 L (37.0-47.0) % MCV 90.4 (80.0-98.0) fL MCH 32.4 (27.0-33.0) pg MCHC 35.8 H (31.0-35.0) g/dl RDW 13.5 (11.0-16.0) % Plt Count 140 L (160-400) X10*3/uL MPV 12.4 H (9.4-12.3) fL Immature Gran % (Auto) 2.8 H (0.0-0.4) % Neut % (Auto) 86.3 H (45-73) % Lymph % (Auto) 5.6 L (20-40) % [place] % (Auto) 4.9 (2-11) % Eos % (Auto) 0.1 (0-4) % Baso % (Auto) 0.3 (0-2) % Lymph # (Auto) 0.4 L (1.2-4.9) X10*3/uL [place] # (Auto) 0.4 (0.1-1.2) X10*3/uL Eos # (Auto) 0.0 (0.0-0.4) X10*3/uL Baso # (Auto) 0.0 (0.0-0.2) X10*3/uL Abs Immat Gran (auto) 0.21 H (0.00-0.03) X10*3/uL Absolute Neuts (auto) 6.6 (2.0-8.3) x10*3/uL Absolute Nucleated RBC 0.000 (0.0-0.012) X10*3/uL Nucleated RBC % (auto) 0.0 (0.0-0.2) /100WBC ESR 73 H (0-20) MM/HR PT 19.7 H D (10.9-12.4) SEC INR 1.7 H (0.9-1.1) Sodium 134 L (135-145) mmol/L Potassium 3.5 (3.3-5.1) mmol/L Chloride 104 (96-108) mmol/L Carbon Dioxide 21 L (22-29) mmol/L Anion Gap 13 (12-20) BUN 15 (9-16) mg/dL Creatinine 0.63 (0.5-1.4) mg/dL Estim Creat Clear Calc 79.5 Estimated GFR > 60 Random Glucose 311 H (60-115) mg/dL Lactic Acid 1.6 (0.5-2.0) mmol/L Calcium 8.2 L (8.4-10.2) mg/dL Magnesium 1.9 (1.6-2.6) mg/dL Total Bilirubin 8.9 H (0.0-1.0) mg/dL Direct Bilirubin 7.2 H (0.0-0.5) mg/dL AST 108 H (5-31) U/L ALT 103 H (0-31) U/L Alkaline Phosphatase 831 H (39-117) U/L Ammonia 66 H (13-55) umol/L C-Reactive Protein 17.40 H (< or = 0.50) mg/dL Total Protein 6.0 L (6.5-8.0) g/dL Albumin 2.6 L (3.5-5.0) g/dL Discharge Plan Discharge Clinical Impression: Perichondritis, Chronic nonalcoholic liver disease Patient Disposition: Admitted As Inpatient
--- NOTE | 2024-12-07 18:38 | ECG_ITS ---
Test Reason : WEAKNESS Blood Pressure : */* mmHG Vent. Rate : 74 BPM Atrial Rate : 74 BPM P-R Int : 146 ms QRS Dur : 90 ms QT Int : 398 ms P-R-T Axes : 54 22 22 degrees QTcB Int : 441 ms Normal sinus rhythm Normal ECG When compared with ECG of 25-Sep-2016 10:59, No significant change was found Referred By: Porsha Quiroz Electronically Signed By: Dontrell Rolle
--- NOTE | 2024-12-07 19:26 | MHC.EDTECH ---
patient didn't feel comfortable in providing urine due to menstrual nurse aware
[2024-12-07 19:32] LABS: MANUAL DIFF FLAG NO
[2024-12-07 19:34] LABS: Basophils Percent Auto 0.3 % (0-2); Eosinophils Percent Auto 0.1 % (0-4); Hemoglobin 11.1 g/dl (12.0-16.0); Imm Gran Abs Auto 0.21 X10*3/uL (0.00-0.03); Imm Gran Pct Auto 2.8 % (0.0-0.4); Lymphocytes Absolute Auto 0.4 X10*3/uL (1.2-4.9); Lymphocytes Percent Auto 5.6 % (20-40); Mean Corpuscular HGB Conc 35.8 g/dl (31.0-35.0); Mean Corpuscular Hemoglobin 32.4 pg (27.0-33.0); Mean Corpuscular Volume 90.4 fL (80.0-98.0); Mean Platelet Volume 12.4 fL (9.4-12.3); Monocytes Absolute Auto 0.4 X10*3/uL (0.1-1.2); Monocytes Percent Auto 4.9 % (2-11); Neutrophils Absolute Auto 6.6 x10*3/uL (2.0-8.3); Neutrophils Percent Auto 86.3 % (45-73); Platelet Count 140 X10*3/uL (160-400); Red Blood Count 3.43 X10*6/uL (4.20-5.50); Red Cell Distribution Width 13.5 % (11.0-16.0); White Blood Count 7.6 X10*3/uL (4.8-10.8)
--- OUTSIDE RECORDS SUMMARY | 2024-12-07 19:34 | XMS_ITS | Encounter Summary ---
Demographics Address [address] [facility] [address] [place] [address] Home Phone Mobile Phone Preferred Language Mongolian; Castilian Marital Status Single Scientology Affiliation Unknown Race Unknown Ethnic Group Unknown Author Organization [facility] Address [address] [place] [address] Support Name Relationship Address Phone Orion Rubio Daughter [address] [place] [address] Care Team Providers Care Lending Manager Name Role Phone Sammie Maharaj Primary Care Provider [phone] Encounter Details Date Type Department Care Team (Late st Contact Info) Description 09/12/2024 Orders Only [facility] Interventional Radiology [address] [place] [phone] Eugene Warren MD [address] [place] [phone] Social History Tobacco Use Types Packs/Day Years [...] Info) Description 01/08/2025 8:00 AM EDT Follow-Up [facility] Liver Transplant Services [address] [place] [phone] Yasmin Ho MD [address] [place] [phone] 03/22/2025 3:30 PM EDT Office Visit [facility] [address] [place] [phone] Import Specialist: Natasha Rubalcava MD [address] [place] [phone] 07/17/2025 8:00 AM EDT Office Visit [facility] [address] [place] [phone] Import Specialist: Paola Vance NP [address] [place] [phone] 08/06/2025 8:00 AM EDT Office Visit [facility]rology Clinic [address] [place] [phone] Manuel Carpenter PA [address] [place] [phone] documented as of this encounter Visit Diagnoses Not on filedocumented in this encounter Care Teams Lending Manager Relationship Specialty Start Date End Date Sammie Maharaj [address] [place] [phone] PCP - General Family Medicine 05/15/18 documented as of this encounter
--- OUTSIDE RECORDS SUMMARY | 2024-12-07 19:34 | XMS_ITS | Encounter Summary ---
Demographics Address [address] [facility] [address] [place] [address] Home Phone Mobile Phone Preferred Language Hebrew; Castilian Marital Status Single Catholic Affiliation Unknown Race Unknown Ethnic Group Unknown Author Organization [facility] Address [address] [place] [address] Support Name Relationship Address Phone Orion Rubio Daughter [address] [facility] [address] [place] [address] Care Team Providers Care City Planning Teacher Name Role Phone Sammie Maharaj Primary Care Provider [phone] Reason for Visit * Reason Comments Med Refill Encounter Details Date Type Department Care Team (Late st Contact Info) Description 11/13/2024 Refill [facility] Services [address] [place] [phone] Yasmin Ho MD [address] [place] [phone] Social History Tobacco Use Types Packs/Day Years [...] Info) Description 01/08/2025 8:00 AM EDT Follow-Up [facility] [address] [place] [address] Yasmin Ho MD [address] [place] [phone] 03/22/2025 3:30 PM EDT Office Visit [facility] [address] [place] [phone] Supervisor Ski Production: Natasha Rubalcava MD [address] [place] [phone] 07/17/2025 8:00 AM EDT Office Visit [facility] [address] [place] [phone] Supervisor Ski Production: Paola Vance NP [address] [place] [phone] 08/06/2025 8:00 AM EDT Office Visit [facility] [address] [place] [phone] Manuel Carpenter PA [address] [place] [phone] documented as of this encounter Visit Diagnoses Not on filedocumented in this encounter Care Teams City Planning Teacher Relationship Specialty Start Date End Date Sammie Maharaj [address] [place] [phone] PCP - General Family Medicine 05/15/18 documented as of this encounter
--- OUTSIDE RECORDS SUMMARY | 2024-12-07 19:34 | XMS_ITS | Referral Summary ---
Demographics Address [address] [facility] [address] [place] [address] Home Phone Mobile Phone Preferred Language Turkish; Castilian Marital Status Single Pentecostal Affiliation Unknown Race Unknown Ethnic Group Unknown Author Organization [facility] Address [address] [place] [address] Support Name Relationship Address Phone Orion Rubio Daughter [address] [facility] [address] [place] [address] Care Team Providers Care Die Repairer Trimmer Dies Name Role Phone Sammie Maharaj Primary Care Provider +1- [phone] Encounters Date Type Department Care Team Description 12/04/2024 Telephone [facility] Transplant Department [address] [place] [address] Katy Boateng, ERVIN 12/04/2024 Orders Only [facility] Transplant Department [address] [place] [address] 31426 Katy Boateng, RN Cryptogenic cirrhosis (CMS/HCC) (HCC) (Primary Dx); Liver disease 11/28/2024 Telephone [facility] Transplant Department [address] [place] [address] 49866 Katy Boateng, RN 11/14/2024 10:00 AM EST Social Work [facility] Liver Transplant Services [address] [place] [address] 00140 Marissa Hearn LICSW 11/14/2024 8:00 AM EST Office Visit [facility] [address] [place] [address] 61661 Press Feeder: Paola Vance NP Type 2 diabetes mellitus without complication, with long-term current use of insulin (CMS/HCC) (HCC) (Primary Dx) 11/13/2024 Refill [facility] Transplant Services [address] [place] [address] 22568 Yasmin Ho MD 10/24/2024 Refill [facility] Transplant Services [address] [place] [address] Yasmin Ho MD 10/11/2024 Refill [facility] Transplant Services [address] [place] [address] Yasmin Ho MD 10/02/2024 Refill [facility] Transplant Services [address] [place] [address] Yasmin Ho MD 09/12/2024 Orders Only [facility] Interventional Radiology [address] [place] [address] 97810 Eugene Warren MD 09/11/2024 Orders Only [facility] Transplant Department [address] [place] [address] 93329 Katy Boateng RN Cryptogenic cirrhosis (CMS/HCC) (HCC) (Primary Dx) 09/11/2024 8:00 AM EST Follow-Up [facility] Transplant Services [address] [place] [address] 37664 Yasmin Ho MD Cryptogenic cirrhosis (CMS/HCC) (HCC) [...] Capsule(s) By Mouth Daily 3 Active [employer] [place] Lite meter TEST BLOOD SUGAR THREE TIMES DAILY 4 Active [employer] [place] 2 Isanti misc 4 Active [employer]Style [place] 2 Sensor [...] mL 11 4 Active [employer]Style [place] 3 Isanti misc Use to monitor blood sugars. E11.9 1 each 05/15/2024 9:09 AM EDT 4 Active [employer]Style [place] 3 Sensor deviceIndicati ons:Type 2 diabetes mellitus without complication, with long-term current use of insulin (CMS/HCC) ([facility]) Change sensor every 14 days. E11.9 2 each 11 07/25/2024 6:52 PM EDT 4 Active [employer]Style [place] 3 Plus Sensor deviceIndicati ons:Type 2 diabetes mellitus without complication, with long-term current use of insulin (CMS/HCC) ([facility]) Change sensor every 15 days. E11.65 2 [...] approval for her to upgrade to the [employer] charlotte 3 CGM. BPPV (benign paroxysmal positional [...] Info) Description 01/08/2025 8:00 AM EDT Follow-Up [facility] Transplant Services [address] [place] [address] Yasmin Ho MD [address] [place] [address] 03/22/2025 3:30 PM EDT Office Visit [facility] [address] [place] [address] 08272 Press Feeder: Natasha Rubalcava MD [address] [place] [address] 07/17/2025 8:00 AM EDT Office Visit [facility] [address] [place] [address] 39525 Press Feeder: Paola Vance NP [address] [place] [address] [place] [address] 08/06/2025 8:00 AM EDT Office Visit [facility] Neurology Clinic [address] [place] [address] Manuel Carpenter PA [address] [place] [address] Procedures * Due to [place] state law, this organization might not be [...] to Health Maintenance Results * Due to [place] state law, this organization might not be sharing negative HIV tests. * POCT Glycosylated Hemoglobin (HGB A1C), interfaced (11/14/2024 7:40 AM EST) Hemoglobin A1C, POCT 4.2 <=5.6 % 11/14/2024 8:12 AM EST [facility] Comment: A1C Recommendation for Non- Adults with Diabetes: <7.0% ADA 2011 Standards of Medical Care in Diabetes Blood 11/14/2024 7:40 AM EST 11/14/2024 8:12 AM EST us Paola Tolentino [facility] POCT ORDERABLES - DEVICE Final Result [facility] [address] [place] [address], [place] * (ABNORMAL) CBC Auto Differential (09/11/2024 9:08 AM EST) WBC 5.4 3.8 - 10.8 10*3/uL 09/11/2024 9:36 AM EST [facility] RBC 4.07 3.80 - [...] % 2.6 % 09/11/2024 9:36 AM EST [facility] Basophil % 0.4 % 09/11/2024 9:36 AM EST [facility] Neutrophil # 4.24 1.50 - 7.80 10*3/uL 09/11/2024 9:36 AM EST [facility] Immature Grans # <0.03 <=0.03 10*3/uL 09/11/2024 9:36 AM EST [facility] Lymphocyte # 0.70(L) 0.85 - 3.90 10*3/uL 09/11/2024 9:36 AM EST [facility] Monocyte # 0.30 0.20 - 0.95 10*3/uL 09/11/2024 9:36 AM EST [facility] Eosinophil # 0.10 0.02 - 0.50 10*3/uL 09/11/2024 9:36 AM EST [facility] Basophil # <0.03 0.00 - 0.20 10*3/uL 09/11/2024 9:36 AM EST [facility] nRBC % 0.0 /100 WBCs 09/11/2024 9:36 AM EST [facility] nRBC # <0.01 <0.01 10*3/uL 09/11/2024 9:36 AM EST [facility] Blood Structure of peripheral vein / Unknown Venipuncture / Unknown 09/11/2024 9:08 AM EST 09/11/2024 9:27 AM EST us Yasmin Ho MD LAB BLOOD ORDERABLES Final R esult [facility] [address] [place] [address], [place] * AFP Tumor Marker (09/11/2024 9:08 AM EST) Alpha Fetoprotein, Tumor Marker 3.4 ng/mL 09/12/2024 12:39 PM EST [facility] Comment: Reference Range: ?? <6.1 The use of AFP as a tumor marker in females is not recommended. This test was performed using the Magdiel Kiln chemiluminescent method. Values obtained from different assay methods cannot be used interchangeably. AFP levels, regardless of value, should not be interpreted as absolute evidence of the presence or absence of disease. Blood Structure of peripheral vein / Unknown Venipuncture / Unknown 09/11/2024 9:08 AM EST 09/11/2024 9:26 AM EST [facility] 09/12/2024 12:39 PM EST [facility] Received Date: us Yasmin Ho MD LAB BLOOD ORDERABLES Final R [facility] [address] [facility] [address]rd [facility], [place] [address], [place] [phone] [facility] 200 [facility] [address]rd [facility], [place] [address], [place] [phone] * Protime-INR (09/11/2024 9:08 AM EST) Pathologist [facility] PT 12.2 9.6 - 12.4 Seconds 09/11/2024 9:52 AM EST [facility] INR 1.1 0.9 - 1.1 09/11/2024 9:52 AM EST [facility] Comment:The optimal therapeu tic INR range for patients treated with Vitamin K antagonists (VKAS, e.g., Warfarin) is 2.0 to 3.5. Discuss the desired range with your doctor/care team. Blood Structure of peripheral vein / Unknown Venipuncture / Unknown 09/11/2024 9:08 AM EST 09/11/2024 9:26 AM EST us Yasmin Ho MD LAB BLOOD ORDERABLES Final R esult Performing Organization Address City/[facility]/ZIP Co de Phone Number [facility] LAB[facility] [address] [place] [address], * (ABNORMAL) Bilirubin, Direct (09/11/2024 9:08 AM EST) Bilirubin, Direct 6.9(H) <=0.4 mg/dL 09/11/2024 10:02 AM EST [facility] Blood Structure of peripheral vein / Unknown Venipuncture / Unknown 09/11/2024 9:08 AM EST 09/11/2024 9:25 AM EST Yasmin Ho MD LAB BLOOD ORDERABLES Final R esult Performing Organization Address [facility]/ZIP Co de Phone Number [facility] [address] [place] [address], * (ABNORMAL) Comprehensive Metabolic Panel (09/11/2024 9:08 AM EST) NA 142 135 - 145 mmol/L 09/11/2024 10:02 AM EST [facility] K 3.6 3.5 - 5.3 mmol/L 09/11/2024 10:02 AM EST [facility] Cl 110(H) 98 - 107 mmol/L 09/11/2024 10:02 AM EST [facility] CO2 19(L) 22 - 32 mmol/L 09/11/2024 10:02 AM EST [facility] Anion Gap 13 5 - 15 09/11/2024 10:02 AM EST [facility] Glucose 242(H) 65 - 99 mg/dL 09/11/2024 10:02 AM EST [facility] Creatinine 0.67 0.50 - 1.20 mg/dL 09/11/2024 10:02 AM EST [facility] Calcium 8.8 8.6 - 10.5 mg/dL 09/11/2024 10:02 AM [employer] LAB[facility] Total Protein 6.6 6.0 - 8.0 g/dL 09/11/2024 10:02 AM [employer] Albumin 3.3(L) 3.5 - 5.2 g/dL 09/11/2024 10:02 AM [employer] [facility] Bilirubin, Total 8.7(H) 0.2 - 1.2 mg/dL 09/11/2024 10:02 AM [employer] Alkaline Phosphatase 1,141(H) 35 - 129 U/L 09/11/2024 10:02 AM [employer] [facility] AST 122(H) 10 - 40 U/L 09/11/2024 10:02 AM [employer] [facility] ALT 105(H) 10 - 40 U/L 09/11/2024 10:02 AM [employer] [facility] BUN 18 7 - 23 mg/dL 09/11/2024 10:02 AM [employer] [facility] eGFR >90 >=60 mL/min/1 .73m2 09/11/2024 10:02 AM [facility] Comment:The estimated glomer ular filtration rate (eGFR) is calculated using a new formula developed by the NKF-ASN task force to eliminate race-based correction factors. The new formula uses serum/plasma creatinine, age, and gender to determine eGFR. A value below 60mls/min might indicate kidney disease and will be flagged. For additional information, see Valorie et al, Am J Kidney Dis. 2021;79(2):268- 288, A Unifying Approach for GFR estimation: Recommendations of the NKF-ASN Task Force on Reassessing the Inclusion of Race in Diagnosing Kidney Disease . Globulin, Total 3.3 2.1 - 4.2 g/dL 09/11/2024 10:02 AM [facility] A/G Ratio 1.0(L) 1.5 - 3.0 09/11/2024 10:02 AM [facility] Blood Structure of peripheral vein / Unknown Venipuncture / Unknown 09/11/2024 9:08 AM EST 09/11/2024 9:25 AM EST us Yasmin Ho MD LAB BLOOD ORDERABLES Final R esult Performing Organization Address City/[facility]/ZIP Co de Phone Number [facility] CL[facility]OLOG[facility] LABORATORY [address] [place] [address], * Microalbumin, Random Urine with Creatinine (04/26/2024 4:22 PM EDT) Microalbumin, Urine <2.0 mg/dL 04/26/2024 5:20 PM EDT [facility] CL[facility]ICAL PATHOLOGY LABORATORY Creatinine, Urine 69 15 - 278 mg/dL 04/26/2024 5:20 PM EDT [facility] CL[facility]ICAL PATHOLOGY LABORATORY Microalb/Creat Ratio, Random Urine 04/26/2024 5:20 PM EDT [facility] [employer] CL[facility] LAB[facility] Comment: < 1.0 mcg/mgCr Microalbumin Reference Range: Normal ? <30 mcg/mg Creatinine Microalbuminuria ? 30-300 mcg/mg Creatinine Clinical Albuminuria >300 mcg/mg Creatinine Reference: ADA Guideline. Diabetes Care. 2004;27 (suppl 1) Urine Voided urine specimen / Unknown Non-Blood Collection / Unknown 04/26/2024 4:22 PM EDT 04/26/2024 4:35 PM EDT us Natasha Kramer MD LAB URINE ORDERABLES Final Resul t [facility] LAB[facility] [address] [place] [address], * Hepatitis C Antibody w/Reflex to PCR (09/20/2023 12:40 PM EST) Hepatitis C Antibody NON-REACT VIVEK NON-REACT VIVEK 09/21/2023 6:41 AM EST [facility] Comment: HCV antibody was non-reactive. There is no laboratory evidence of HCV infection. In most cases, no further action is required. However, if recent HCV exposure is suspected, a test for HCV RNA (test code 67655) is suggested. For additional information please refer to http://education.Kumbuya/faq/QRD72r3 (This link is being provided for informational/ educational purposes only.) Blood Structure of peripheral vein / Unknown Venipuncture / Unknown 09/20/2023 12:40 PM EST 09/20/2023 1:07 PM EST Narrative [facility] - 09/21/2023 6:41 AM EST [facility] Received Date: Yasmin Ho MD LAB BLOOD ORDERABLES Final R esult [facility] [address], [place] [address], [facility] [address] [facility] 3rd Floor, [place] [address], [place] [phone] from Last 3 Months or Most Recently Relevant to Health Maintenance [place] [address] [address] [address] [facility] REINALDO WEBER [id number] Advance Directives Documents on File Type Date Recorded Patient Diamond Mer[employer] [facility] Proxy 10/26/2023 12:55 PM 10-10 Advance Directive 01/22/2014 12:00 AM Adva nce Care Directives Advance Directive 04/03/2010 12:00 AM luba Sandhu edical Dec Making (Adv.Dir) * Presumed Full Code (Latest Code Status on File) Date Activated Date Inactivated Comments 05/15/2024 12:15 PM 05/16/2024 2:39 AM Care Teams Die Repairer Trimmer Dies Relationship Specialty Start Date End Date Sammie Maharaj: [phone] [address] [place] [address]368 PCP - General Family Medicine 05/15/18
--- OUTSIDE RECORDS SUMMARY | 2024-12-07 19:34 | XMS_ITS | Encounter Summary ---
Demographics Address [address] [facility] [address] [place] [address] Home Phone Mobile Phone Preferred Language Turkmen; Castilian Marital Status Single Temple Affiliation Unknown Race Unknown Ethnic Group Unknown Author Organization [facility] Address [address] [place] [address] Support Name Relationship Address Phone Orion Rubio Daughter [address] [facility] [address] [place] [address] Care Team Providers Care Maintenance Supervisor Name Role Phone Sammie Maharaj Primary Care Provider +[phone]- [phone] Encounter Details Date Type Department Care Team (Late st Contact Info) Description 09/20/2023 Orders Only [facility] Interventional Radiology [address] [place] [address] Ricardo Reyez MD [address] [place] [address] Social History Tobacco Use Types Packs/Day Years [...] Info) Description 01/08/2025 8:00 AM EDT Follow-Up [facility] Liver Transplant Services [address] [place] [address] Yasmin Ho MD [address] [place] [address] 03/22/2025 3:30 PM EDT Office Visit [facility] Diabetes [facility] [address] [place] [address] Help Desk Team Leader: Natasha Rubalcava MD [address] [place] [address] 07/17/2025 8:00 AM EDT Office Visit [facility] Clinic [address] [place] [address] Help Desk Team Leader: Paola Vance NP [address] [place] [address] 08/06/2025 8:00 AM EDT Office Visit [facility] Neurology Clinic [address] [place] [address] Manuel Carpenter PA [address] [place] [address] documented as of this encounter Visit Diagnoses Not on filedocumented in this encounter Care Teams Maintenance Supervisor Relationship Specialty Start Date End Date Sammie Maharaj [address] [place] [address] PCP - General Family Medicine 05/15/18 documented as of this encounter
--- OUTSIDE RECORDS SUMMARY | 2024-12-07 19:34 | XMS_ITS | Encounter Summary ---
Author Organization [facility] [facility] Address [address] [facility] [address] [place] [address] Care Team Providers Care Accounts Payable Lead Name Role Phone Sammie Maharaj MD Primary Care Provider +1- [phone] Loyda Glaser RN Unavailable [phone] Yasmin Ho MD Unavailable Reason for Visit * Reason Onset Date Comments Nurse Triage 12/05/2024 Encounter Details Date Type Department Care Team (Late st Contact Info) Description 12/05/2024 Telephone [facility] MEDICINE [address] [place], [place] [phone] Sammie Maharaj MD [address] [place], [place] [phone] Nurse Triage Social History Tobacco Use Types [...] encounter Miscellaneous Notes * Telephone Encounter - Hortencia Amezcua RN - 12/05/2024 9:28 AM EST No telesales professional needed as this 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 Call returned to Aubrie Chery to triage below. Pt placed Laxmi on the line, confirmed . Ptseen at [facility]. Laxmi reports Pt having onset of body pain and mouth pain since seen on Tuesday. Pt reports did get call from [facility] to notify ofplan for repeat blood work on 12/10/24. No follow up set up with them at this time. Pt reports havingnausea. No vomiting. Pt also endorses dizziness. Pt still having facial swelling as well. Reviewed [facility] operating hours and that wait times vary. To seek care for re-evaluation to determine if blood work to be done now or if anything additional to be ordered. Advised if sx severe or difficulty with walking to seek ER instead for evaluation. Pt agrees. Pt advised that PCP is in [place] but cannot guarantee that is the provider that will see her but can be available for consult if seen by another provider. Protocol Used: Muscle Aches and Body Pain (Adult) Protocol-Based Disposition: Go to Office or Video Visit Now Positive Triage Question: * Severe pain (e.g., excruciating, unable to do any normal activities) and not improved 2 hours after pain medicine * All higher-acuity triage questions were negative Care Advice Discussed: * Reasons To Call Back - Fever occurs - You become worse * Telephone Encounter - Salima Rossi - 12/05/2024 9:18 AM EST Symptoms: Face Swelling, Body Aches, Loss of Appetite Outcome: Talk to a nurse or provider within 15 minutes Reason: Trouble swallowing The caller accepted this outcome. documented in this encounter Plan of Treatment Upcoming Encounters Date Type Department Care Team (Late st Contact Info) Description 02/25/2025 9:00 AM EDT Office Visit [facility] OPTOMETRY [address] [place] [address] Mckay, Darshana, OD [address] [place] [address] documented as of this encounter Visit Diagnoses Not on filedocumented in this encounter Additional Health Concerns Assessment Noted Time PHQ-9 Depression Total Score: 0 10/24/19 25 9:33 AM EST documented as of this encounter Care Teams Accounts Payable Lead Relationship Specialty Start Date End Date Sammie Maharaj MD [address] [place] [address] PCP - General Family Medicine 10/10/18 Loyda Glaser RN [address] [place] [address]99 Janitor Helper Family Medicine 10/31/23 Yasmin Ho MD [address] [place] [address] Gastroenterology 08/29/24 Manuel Carpenter PA [address] [address] Neurology 08/29/24 Paola Tolentino, BRASS CHASER [address] [address] Endocrinology 10/24/24 documented as of this encounter
--- OUTSIDE RECORDS SUMMARY | 2024-12-07 19:34 | XMS_ITS | Encounter Summary ---
Demographics Address [address] [facility] [address] [place] [address] Home Phone Mobile Phone Preferred Language Georgian; Castilian Marital Status Single Christian Affiliation Unknown Race Unknown Ethnic Group Unknown Author Organization [facility] Address [address] [place] [address] Support Name Relationship Address Phone Orion Rubio Daughter [address] [facility] [address] [place] [address] Care Team Providers Care Emissions Testing Technician Name Role Phone Sammie Maharaj Primary Care Provider [phone]- [phone] Encounter Details Date Type Department Care Team (Late st Contact Info) Description 11/28/2024 Telephone [facility] Transplant Department [address] [place] [address] Katy Boateng RN Social History Tobacco Use [...] Info) Description 01/08/2025 8:00 AM EDT Follow-Up [facility] Liver Transplant Services [address] [place] [address] Yasmin Ho MD [address] [place] [address] 03/22/2025 3:30 PM EDT Office Visit [facility] Diabetes Clinic [address] [place] [address] Culinary Art Teacher: Natasha Rubalcava MD [address] [place] [address] 07/17/2025 8:00 AM EDT Office Visit [facility] [address] [place] [address] Culinary Art Teacher: Paola Vance NP [address] [place] [address] 08/06/2025 8:00 AM EDT Office Visit [facility] Neurology Clinic [address] [place] [address] Manuel Carpenter PA [address] [place] [address] Scheduled Orders Name Type Priority Associated Diagnoses [...] alcohol documented in this encounter Care Teams Emissions Testing Technician Relationship Specialty Start Date End Date [place], Sammie Beckett [address] [place] [address] PCP - General Family Medicine 05/15/18 documented as of this encounter
--- OUTSIDE RECORDS SUMMARY | 2024-12-07 19:34 | XMS_ITS | Encounter Summary ---
Author Organization [facility] Address [address] [place] [address] Care Team Providers Care Receiving Barn Custodian Name Role Phone Sammie Maharaj MD Primary Care Provider [phone] Loyda Glaser RN Unavailable [phone] Yasmin Ho MD Unavailable [phone] Reason for Visit * Reason Comments Headache Encounter Details Date Type Department Care Team (Late st Contact Info) Description 12/05/2024 2:00 PM EST Office Visit [facility] [address] [place], [place] [phone] Sammie Maharaj MD [address] [place], [place] [phone] End stage liver disease (CMS/HCC) (Primary Dx); Intractable headache, unspecified chronicity pattern, unspecified headache type Social History Tobacco Use Types Packs/Day Years [...] Sign Reading Time Taken Comments Blood Pressure 114/69 12/05/2024 2:02 PM EST Pulse 82 12/05/2024 2:02 PM EST Temperature 36.6 ??C (97.9 ??F) 12/05/2024 2:02 PM ES T Respiratory Rate 16 12/05/2024 2:02 PM EST Oxygen Saturation 96% 12/05/2024 2:02 PM EST Inhaled Oxygen Concentration - - Weight 51.3 kg (113 lb) 12/05/2024 2:02 PM EST Height - - Body Mass Index 23.62 12/03/2024 10:39 AM EST documented in this encounter Progress Notes * Sammie Maharaj MD - 12/05/2024 2:00 PM EST Images from the original note were not included. Subjective Patient ID: Aubrie Chery is a 44 y.o. female with past medical history generalized convulsive seizures, hypertension, type 2 diabetes, End stage liver disease, Cerebral artery, and depressive disorder who presents to walk in clinic for Headache. Follows with Dr. Jono Eden at [facility] neurology, last seen 08/20/24, has follow-up in 08/2025. Per triage: reports Pt having onset of body pain and mouth pain since seen on Tuesday. Pt reports did get call from [facility] to notify of plan for repeat blood work on 12/10/24. No follow up set up with them at this time. Pt reports having nausea. No vomiting. Pt also endorses dizziness. Pt still having facial swelling as well. Originally saw Dr. Bell on 12/03/24 for rash, labs show elevated LFTs. Labs sent to crop or grain farmer. Office Visit on 12/03/2024 Component Date Value White Blood Count 12/03/2024 7.3 Red Blood Count 12/03/2024 4.10 (L) Hemoglobin 12/03/2024 12.9 Hematocrit 12/03/2024 38.1 Mean Corpuscular Volume 12/03/2024 92.9 Mean Corpuscular Hemoglo* 12/03/2024 31.5 Mean Corpuscular HGB Conc 12/03/2024 33.9 Red Cell Distribution Wi* 12/03/2024 13.5 Platelet Count 12/03/2024 114 (L) Mean Platelet Volume 12/03/2024 13.0 (H) Neutrophils Percent Auto 12/03/2024 78.5 (H) Imm Gran Pct Auto 12/03/2024 0.6 (H) Lymphocytes Percent Auto 12/03/2024 9.2 (L) Monocytes Percent Auto 12/03/2024 10.7 Eosinophils Percent Auto 12/03/2024 0.7 Basophils Percent Auto 12/03/2024 0.3 NRBC Pct Auto 12/03/2024 0.0 Neutrophils Absolute Auto 12/03/2024 5.7 Imm Gran Abs Auto 12/03/2024 0.04 (H) Lymphocytes Absolute Au* 12/03/2024 0.7 (L) Monocytes Absolute Auto 12/03/2024 0.8 Eosinophils Absolute Auto 12/03/2024 0.1 Basophils Absolute Auto 12/03/2024 0.0 NRBC Abs Auto 12/03/2024 0.000 Erythrocyte Sedimentatio* 12/03/2024 67 (H) Bilirubin, Total 12/03/2024 11.9 (H) Bilirubin, Direct 12/03/2024 9.3 (H) Aspartate Amino Transfer* 12/03/2024 108 (H) Alanine Aminotransferase 12/03/2024 95 (H) Total Protein 12/03/2024 6.8 Albumin Level 12/03/2024 3.0 (L) Alkaline Phosphatase 12/03/2024 1,064 (H) C Reactive Protein 12/03/2024 17.87 (H) Ammonia (P) 12/03/2024 72 (H) Due to increased bilirubin, labs were sent to crop or grain farmer who reports 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 Recommending redraw next week withPT and INR to update meld. Lab order was faxed. Today: Pt reports she is doing much better, but has had a severe headache since taking the prednisone. Shealso reports tenderness to her scalp. Review of Systems Constitutional: Negative for fever and unexpected weight change. Respiratory: Negative for shortness of breath. Cardiovascular: Negative for chest pain. Gastrointestinal: Negative for abdominal pain. Genitourinary: Negative for difficulty urinating. Skin: Positive for rash. Objective Visit Vitals BP 114/69 (BP Location: Left arm, Patient Position: Sitting, BP Cuff Size: Adult) Pulse 82 Temp 97.9 ??F (36.6 ??C) (Temporal) Resp 16 Body mass index is 23.62 kg/m??. Physical Exam Constitutional: Appearance: Normal appearance. Eyes: General: Scleral icterus present. Cardiovascular: Rate and Rhythm: Normal rate and regular rhythm. Heart sounds: Normal heart sounds. Pulmonary: Effort: Pulmonary effort is normal. Breath sounds: Normal breath sounds. Musculoskeletal: Cervical back: Normal range of motion and neck supple. No rigidity. Skin: Coloration: Skin is jaundiced. Comments: Slight peeling of skin on forehead. Neurological: General: No focal deficit present. Mental Status: She is alert. Psychiatric: Behavior: Behavior normal. Problem List Items Addressed This Visit End stage liver disease (CMS/HCC) - Primary On liver transplant list since December 2023. 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 Etiology unclear. At times she has had a transient hepatitis B positive test, but that might have been passive after blood transfusion. Last HBV PCR January 2017 was negative. She is followed by [facility]. -liver biopsy 2019 mild, grade [...] services with Dr. Yasmin Ho MD of [facility] 02/2024, note reviewed: She [...] 2021, possibly reactive. -liver biopsy done at [facility] 05/01/24, results pending -liver biopsy results on [...] Saw Transplant Hepatology and GI specialist at [facility] on 09/11/24. Per note, she remains active onLT waitlist with an updated MELD 3.0 of 19 based on blood work in April 2024. Etiology of her liver disease and progressive jaundice remains unclear despite prior MRI/MRCP and interval liver biopsy inAugust 2023 which was non-specific with non-specific findings which we reviewed with patient and ijmdwc-ws-ztg again today. We recommended continuation of empiric [...] PT given reports of low energy levels. -Originally saw Dr. Bell on 12/03/24 for rash, labs show elevated LFTs. Labs sent to crop or grain farmer. Due to increased bilirubin, labs were sent to crop or grain farmer who reports chronically elevated dueto chol angiopathy but higher than normal could be due to skin rash. Recommending redraw next week with PT and INR to update meld. Lab order was faxed. -reordered labs 12/05/24 Relevant Orders Hepatic Function Panel Prothrombin Time-INR Comprehensive Metabolic Panel Intractable headache Suspect due to underlying end stage liver disease. Has follow-up with Neurologist. No acute warningsigns. Neurologically intact. -prescribed 5 mg Oxycodone every 12 hrs for 5 days 12/05/24 Relevant Medications oxyCODONE (Roxicodone) 5 MG immediate release tablet -No evidence of acute disease process. Suspect headache due to underlying disease. Symptoms mild. Rash/forehead swelling appears improved. See image in chart. -Has follow-up with Neurologist. -Reordered labs from crop or grain farmer. -ER precautions discussed. -Seek medical attention for worsening symptoms. I, Jf Beckwith, am serving as a scribe to document services personally performed by Dr. Ricci, based on the patient's response to questions by provider and providers statements to me. documented in this encounter Miscellaneous Notes * Assessment & Plan Note - Jf Beckwith - 12/05/2024 2:36 PM ESTAssociated Problem(s): End stage liver disease (CMS/HCC) On [...] 2017 was negative. She is followed by [facility]. -liver biopsy 2018 mild, grade 4/18, stage 3/6, with focal nodular change -CT 3 phase 10/2023: hepatic cirrhosis with portosystemic collateral and splenomegaly, new observation in segment 8, continue follow up 3-6 months -seen by Liver Transplant clinic for consideration 12/12/23 in setting of progressive jaundice withmixed hyperbilirubinemia and worsening MELD score. -Seen byTransplant service psychiatrist Emory Sidhu MD on 11/09/23 with Laxmi present -Seen by transplant services with Dr. Yasmin Ho MD of [facility] 02/2024, note reviewed: She [...] 2021, possibly reactive. -liver biopsy done at [facility] 05/01/24, results pending -liver biopsy results on [...] Saw Transplant Hepatology and GI specialist at [facility] on 09/11/24. Per note, she remains active onLT waitlist with an updated MELD 3.0 of 19 based on blood work in April 2024. Etiology of her liver disease and progressive jaundice remains unclear despite prior MRI/MRCP and interval liver biopsy inAugust 2023 which was non-specific with non-specific findings which we reviewed with patient and lqrniy-iv-vat again today. We recommended continuation of empiric [...] PT given reports of low energy levels. -Originally saw Dr. Bell on 12/03/24 for rash, labs show elevated LFTs. Labs sent to crop or grain farmer. Due to increased bilirubin, labs were sent to crop or grain farmer who reports chronically elevated dueto chol angiopathy but higher than normal could be due to skin rash. Recommending redraw next week with PT and INR to update meld. Lab order was faxed. -reordered labs 12/05/24 * Assessment & Plan Note - Jf Beckwith - 12/05/2024 2:35 PM ESTAssociated Problem(s): Intractable headache Suspect due to underlying end stage liver disease. Has follow-up with Neurologist. No acute warningsigns. Neurologically intact. -prescribed 5 mg Oxycodone every 12 hrs for 5 days 12/05/24 documented in this encounter Plan of Treatment Upcoming Encounters Date Type Department Care Team (Late st Contact Info) Description 02/25/2025 9:00 AM EDT Office Visit [facility] [address] [place] [address] Mckay, Darshana, OD [address] [facility] [place] [address] Scheduled Orders Name Type Priority Associated Diagnoses Orde r Schedule Hepatic Function Panel Lab Routine End stage liver disease (CMS/HCC) Expected: 12/05/2024 (Approximate), Expires: 12/05/2025 Prothrombin Time-INR Lab Routine End stage liver disease (CMS/HCC) Expected: 12/05/2024, Expires: 12/05/2025 Comprehensive Metabolic Panel Lab Routine End stage liver disease (CMS/HCC) Expected: 12/05/2024 (Approximate), Expires: 12/05/2025 documented as of this encounter Visit Diagnoses Diagnosis End stage liver disease (CMS/HCC)- Primary Intractable headache, unspecified chronicity pattern, unspecified headache type documented in this encounter Additional Health Concerns Assessment Noted Time PHQ-9 Depression Total Score: 0 10/24/19 9:33 AM EST documented as of this encounter Care Teams Receiving Barn Custodian Relationship Specialty Start Date End Date Sammie Maharaj MD [address] [place] [address] PCP - General Family Medicine 10/10/18 Loyda Glaser, RN [address] [place] [address] Territory Manager Family Medicine 10/31/23 Yasmin Ho MD [address] [place] [address] Gastroenterology 08/29/24 Manuel Carpenter PA [address] [phone] Neurology 08/29/24 Paola Tolentino, SYSTEMS TECHNOLOGIST [address] [address] Endocrinology 10/24/24 documented as of this encounter
--- OUTSIDE RECORDS SUMMARY | 2024-12-07 19:34 | XMS_ITS | Encounter Summary ---
Demographics Address [address] [facility] [address] [place] [address] Home Phone Mobile Phone Preferred Language Togolese; Castilian Marital Status Single Hinduism Affiliation Unknown Race Unknown Ethnic Group Unknown Author Organization [facility] Address [address] [place] [address] Support Name Relationship Address Phone Orion Rubio Daughter [address] [facility] [address] [place] [address] Care Team Providers Care Hot Knife Foxing Cutter Name Role Phone Kenney Maharajgus Beckett Primary Care Provider [phone] Reason for Visit * Transplant (Routine) - Authorized Specialty Diagnoses / Procedures Referred By Contmichael t Referred To Contact Transplant Diagnoses Liver Transplant Evaluation Marilee Alexander NP [address] [place] [address] Phone: tel: fax: [facility] [address] [place] [address] Phone: tel: fax: Referral ID Status Reason Start Date Expiration Date V isits Requested Visits Authorized [id number] Authorized 09/06/2023 12/13/2025 25 25 Encounter Details Date Type Department Care Team (Late st Contact Info) Description 11/14/2024 10:00 AM EST Social Work [facility] [address] [place] [address] Marissa De La Cruz [address] Transplant [address] [address] Social History Tobacco Use Types Packs/Day Years [...] this encounter Progress Notes * Marissa AvelarBernardoBenito, PARTY HOST/HOSTESS - 11/14/2024 10:00 AM EST LIVER TRANSPLANT PSYCHOSOCIAL REASSESSMENT Identifying information: Patient is a 44-year-old female who is here with her llicml-lj-rra Laxmi Mas for an annual psychosocial reassessment. Both patient and geblnn-qw-wno are Togolese-speaking. A fan mail clerk via iPad was used for this evaluation (Digital Path ID # [id number]). Patient is active on the waiting list [...] and 14) in a subsidized apartment in [facility]. 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 Patient has an open DCF case. She has been caring for her nephews for the last 5 years. Patient has never been . She has one daughter. Patient does not have any grand children. Patient's sister in law who is here today lives in [place] [facility]. Patient was born and raised in [place]. [place] came [place]. Patient has one sister who lives in [place]. She has a brother in [place] and 3 other brothers who were all murdered. Patient's parents are . Patient completed school to the 9th grade. Patient last worked in 2012. She last worked at [employer] and states she stopped because of healthproblems. When asked about interest, rspbxh-lu-wds states patient's only interest is sleeping all day . Patient denies any quaker. Financial history: Patient is on Social Security disability and receives about $900 a month. Patient's insurance is [employer] [facility] [employer] ([facility]) which manages her Medicare and [employer] benefits. Patient has subsidized housing. Patient has SNAP/Food stamps. Patient denies any housing or food insecurities. Transplant SW reminded patient regarding the importance of notifying the transplant program of any problems or changes in her insurance to ensure proper coverage for transplant, posttransplant follow-up and posttransplant medications. Support system: Patient does not drive. Mnmcnh-vj-dyc states she brings patient to all of her medical appointments.Arntpl-lc-fcf is here today and seems very supportive. Mnrcll-yp-fkx lives in [place] and inaddition to helping patient she works cleaning offices in the afternoon. Transplant SW reminded patient and hztsov-xo-rog regarding the option of receiving rides through her insurance [facility] ([facility]). Seimwm-wi-tix states she is aware of this option but reports patient does not like to use these rides. Qwhnmf-um-yzw states patient does not have anyone else to give her rides. Gdarfr-ui-uds reports that patient daughter helps patient with her medications. Onmpnpdg-tf-bqc also helps patient with her activities of daily living in the home. Daughter also works outside the home. Ezjrcw-xv-qaa does patient's shopping and helps her pay her bills. Transplant SW re-educated patient and ogzssz-iu-hcd regarding the care and supervision the patient would need throughout recovery from liver transplant. Dkcdqt-xq-kvi states that she is her main support [...] Patient denies any current use of alcohol. Qptxmn-wp-jue reports patient was never a drinker. Patient denies any past or current use of illicit drugs. Patient does not use any marijuana and never smoked cigarettes. Transplant SW re-educated patient and vcwime-eu-hhw regarding transplant substance use policy. Per sister [...] psychiatric medication. When asked about trauma history, hwjqdw-li-css reports patient has had a lot of stress due to losing 3 of her brothers to murder around the same time. Also around the same time patient had a stroke which has left her with several deficits. Jjmllu-il-qhe states the patient mainly of natasha by [...] cryptogenic cirrhosis. Transplant SW re-educated patient and rowqwd-rb-pyz regarding the issues and commitment involved with [...] nodding yes or no to questions. Her sckbmy-yf-tbq states that she does not speak very much due to a stroke that she had in 2013. Nnwdhe-mh-rdg is here today and states that commitment to being patient's primary registered nurse throughout recovery from transplant. Yutdfz-lg-knm is also is currently very involved in patient's care bringing her to all of her appointments. In addition patient has support from her 21-year-old daughter who lives in the home. Gqpbfh-mi-vgy states patient would like a liver transplant. [...] ongoing strong support of her family specifically dbpusx-ny-owt and daughter, patient continues to meet criteria for liver transplantation from a psychosocial perspective. Plan: 1. Patient maintains a healthcare proxy form on file in [employer] and chose her pyeshb-ks-vrm Laxmi Mas as her healthcare agent ([phone]). Patient states she does not wish to make any changes. 2. Patient maintains a release of information form on file in [employer] allowing sharing of health information with her [...] Info) Description 01/08/2025 8:00 AM EDT Follow-Up [facility] [address] [place] [address] Yasmin Ho MD [address] [place] [address] 03/22/2025 3:30 PM EDT Office Visit [facility] [address] [place] [address] Family Program Specialist: Natasha Rubalcava MD [address] [place] [address] 07/17/2025 8:00 AM EDT Office Visit [facility] [address] [place] [address] Family Program Specialist: Paola Vance NP [address] [place] [address] 08/06/2025 8:00 AM EDT Office Visit [facility] [address] [place], [place] [phone] Manuel Carpenter PA [address] [place] [address] documented as of this encounter Visit Diagnoses Not on filedocumented in this encounter Care Teams Hot Knife Foxing Cutter Relationship Specialty Start Date End Date [place], Sammie Beckett [address] [place] [phone] PCP - General Family Medicine 05/15/18 documented as of this encounter
--- OUTSIDE RECORDS SUMMARY | 2024-12-07 19:34 | XMS_ITS | Encounter Summary ---
Demographics Address [address] [facility] [address] [place] [address] Home Phone Mobile Phone Preferred Language Armenian; Castilian Marital Status Single Confucianism Affiliation Unknown Race Unknown Ethnic Group Unknown Author Organization [facility] Address [address] [place] [address] Support Name Relationship Address Phone Orion Rubio Daughter [address] [facility] [address] [place] [address] Care Team Providers Care Burlap Bag Sewer Name Role Phone Nicko Sammie Beckett Primary Care Provider [phone] Reason for Visit * Consultation (Routine) - Authorized Specialty Diagnoses / Procedures Referred By Contac t Referred To Contact Diagnoses Encounter for pre-transplant evaluation for liver transplant Type 2 diabetes mellitus with hyperglycemia, without long-term current use of insulin (HCC) Yasmin Ho MD [address] [place] [address] Phone: tel: fax: Natasha Kramer MD [address] [place] [address] Phone: tel: fax: Referral ID Status Reason Start Date Expiration Date Visits Requested Visits Authorized [id number] Authorized Specialty Services Required 12/15/2023 06/15/2025 6 6 Encounter Details Date Type Department Care Team (Late st Contact Info) Description 11/14/2024 8:00 AM EST Office Visit [facility] [address] [place] [address] Railroad Conductor: Paola Vance NP [address] [facility] [place] [address] Type 2 diabetes mellitus without complication, with [...] not included. Date of Visit: 11/14/2024 Location: [facility] Aubrie Mario is a 44 y.o. female here to follow-up on diabetes management. Invasive Cardiologist Invasive Cardiologist Used: Yes Type of Invasive Cardiologist Used: Video Invasive Cardiologist Invasive Cardiologist Name/Number: Kecia [id number] Information Interpreted : Outpatient Visit Diabetes Care Team: ; Natasha Kramer PROGRAM CONTROL ANALYST: Paola Tolentino CDCES: none yet CC: checking in on diabetes. HPI: Aubrie Mario is a 44 y.o. female here for evaluation of management of type 2 diabetes . Aubrie lives with her daughter and 2 school aged nephews. Aubrie does housework, relies on her izvtcf-oj-eaz to get to appointments and the grocery [...] Info) Description 01/08/2025 8:00 AM EDT Follow-Up [facility] [address] [place] [phone] Yasmin Ho MD [address] [place] [address] 03/22/2025 3:30 PM EDT Office Visit [facility] [address] [place] [address] Railroad Conductor: Natasha Rubalcava MD [address] [place] [phone] 07/17/2025 8:00 AM EDT Office Visit [facility] [address] [place] [address] Railroad Conductor: Paola Vance NP [address] [place] [address] 08/06/2025 8:00 AM EDT Office Visit [facility] [address] [place] [address] Manuel Carpenter PA [address] [place] [address] documented as of this encounter Procedures * Due to [facility] law, this organization might not be sharing negative HIV tests. Procedure Name Priority Date/Time Associated Diagnosis Comments POCT GLYCOSYLATED HEMOGLOBIN (HGB A1C) Routine 11/14/2024 7:40 AM EST documented in this encounter Results * Due to [facility] law, this organization might not be sharing negative HIV tests. * POCT Glycosylated Hemoglobin (HGB A1C), interfaced (11/14/2024 7:40 AM EST) Hemoglobin A1C, POCT 4.2 <=5.6 % 11/14/2024 8:12 AM EST [facility] Comment: A1C Recommendation for Non- Adults with Diabetes: <7.0% ADA 2011 Standards of Medical Care in Diabetes Blood 11/14/2024 7:40 AM EST 11/14/2024 8:12 AM EST us Paola J. Rajan PROGRAM CONTROL ANALYST LAB POCT ORDERABLES - DEVICE Final Result [facility] [address] [place] [address], documented in this encounter Visit Diagnoses Diagnosis Type 2 diabetes mellitus without complication, with long-term current use of insulin (CMS/HCC) (HCC)- Primary documented in this encounter Care Teams Burlap Bag Sewer Relationship Specialty Start Date End Date HobsonSammie thompson [address] [place] [phone] PCP - General Family Medicine 05/15/18 documented as of this encounter
--- OUTSIDE RECORDS SUMMARY | 2024-12-07 19:34 | XMS_ITS | Clinical Summary ---
Demographics Address [address] [facility] [address] [place] [address] Home Phone Mobile Phone Preferred Language Ukrainian; Castilian Marital Status Single Worship Affiliation Unknown Race Unknown Ethnic Group Unknown Author Organization [facility] Address [address] [place] [address] Support Name Relationship Address Phone Orion Rubio Daughter [address] [facility] [address] [place] [address] Care Team Providers Care Athletic Turf Worker Name Role Phone Kenney Maharajgus Beckett Primary [...] Capsule(s) By Mouth Daily 3 Active FreeStyle Dudley Lite meter TEST BLOOD SUGAR THREE TIMES DAILY 4 Active FreeStyle [place] misc 4 Active FreeStyle [place] 2 Sensor [...] mL 11 4 Active FreeStyle [place] 3 [place] [facility] Use to monitor blood sugars. E11.9 1 each 05/15/2024 9:09 AM EDT 4 Active FreeStyle [place] 3 Sensor deviceIndicati ons:Type 2 diabetes mellitus without complication, with long-term current use of insulin (CMS/HCC) ([facility]) Change sensor every 14 days. E11.9 2 each 11 07/25/2024 6:52 PM EDT 4 Active FreeStyle [place] 3 Plus Sensor deviceIndicati ons:Type 2 diabetes mellitus without complication, with long-term current use of insulin (CMS/HCC) ([facility]) Change sensor every 15 days. E11.65 [...] approval for her to upgrade to the freeOctoplusyle charlotte 3 CGM. BPPV (benign paroxysmal positional [...] Type Department Care Team Description 12/04/2024 Telephone [facility] Transplant Department [address] [place] [address] Katy Boateng, ERVIN 12/04/2024 Orders Only [facility] Transplant Department [address] [place] [address] Katy Boateng, RN Cryptogenic cirrhosis (CMS/HCC) (HCC) (Primary Dx); Liver disease 11/28/2024 Telephone [facility] Transplant Department [address] [place] [address] Katy Boateng RN 11/14/2024 10:00 AM EST Social Work [facility] Liver Transplant Services [address] [place] [address] Marissa Hearn LICSW 11/14/2024 8:00 AM EST Office Visit [facility] Building Diabetes Clinic [address] [place] [address] Health And Safety Technician: Paola Vance NP Type 2 diabetes mellitus without complication, with long-term current use of insulin (CMS/HCC) (HCC) (Primary Dx) 11/13/2024 Refill [facility] Liver Transplant Services [address] [place] [address] Yasmin Ho MD 10/24/2024 Refill [facility] Liver Transplant Services [address] [place] [address] Yasmin Ho MD 10/11/2024 Refill [facility] Liver Transplant Services [address] [place] [address] Yasmin Ho MD 10/02/2024 Refill [facility] Liver Transplant Services [address] [place] [address] Yasmin Ho MD 09/12/2024 Orders Only [facility] Interventional Radiology [address] [place] [address] Eugene Warren MD 09/11/2024 8:00 AM EST Follow-Up [facility] Liver Transplant Services [address] [place] [address] Yasmin Ho MD Cryptogenic cirrhosis (CMS/HCC) (HCC) (Primary Dx) 09/11/2024 Orders Only [facility] Transplant Department [address] [place] [address] Katy Boateng RN Cryptogenic cirrhosis (CMS/HCC) (HCC) [...] Info) Description 01/08/2025 8:00 AM EDT Follow-Up [facility] Liver Transplant Services [address] [place] [address] Yasmin Ho MD [address] [place] [address] 03/22/2025 3:30 PM EDT Office Visit [facility] Diabetes Clinic [address] [place] [address] Health And Safety Technician: Natasha Rubalcava MD [address] [place] [address] 07/17/2025 8:00 AM EDT Office Visit [facility] Diabetes Clinic [address] [place] [address] Health And Safety Technician: Paola Vance NP [address] [place] [address] [place] [address] 08/06/2025 8:00 AM EDT Office Visit [facility] Neurology Clinic [address] [place] [address] Manuel Carpenter PA [address] [place] [address] Health Maintenance Due Date Last Done Comments [...] Additional history exists Procedures * Due to [place] state law, this organization might not be sharing negative HIV tests. Procedure Name Priority Date/Time Associated Diagnosis Comments POCT GLYCOSYLATED HEMOGLOBIN (HGB A1C) Routine 11/14/2024 7:40 AM EST BILIRUBIN, DIRECT Routine 09/11/2024 9:0 8 AM EST Cryptogenic cirrhosis (CMS/HCC) (HCC) COMPREHENSIVE METABOLIC PANEL Routine 09/11/2024 9:08 AM EST Liver disease AFP TUMOR MARKER Routine 09/11/2024 9:0 8 AM EST Liver disease CBC AUTO DIFFERENTIAL [...] to Health Maintenance Results * Due to [place] state law, this organization might not be sharing negative HIV tests. * POCT Glycosylated Hemoglobin (HGB A1C), interfaced (11/14/2024 7:40 AM EST) Hemoglobin A1C, POCT 4.2 <=5.6 % 11/14/2024 8:12 AM EST [facility] Comment: A1C Recommendation for Non- Adults with Diabetes: <7.0% ADA 2011 Standards of Medical Care in Diabetes Blood 11/14/2024 7:40 AM EST 11/14/2024 8:12 AM EST us Paola Tolentino NP LAB POCT ORDERABLES - DEVICE Final Result [facility] [address] [place] [address], * (ABNORMAL) CBC Auto Differential (09/11/2024 9:08 [...] % 0.4 % 09/11/2024 9:36 AM EST [address] [facility] Neutrophil # 4.24 1.50 - 7.80 10*3/uL 09/11/2024 9:36 AM EST [address] [facility] Immature Grans # <0.03 <=0.03 10*3/uL 09/11/2024 9:36 AM EST [facility] Lymphocyte # 0.70(L) 0.85 - 3.90 10*3/uL 09/11/2024 9:36 AM EST [facility] Monocyte # 0.30 0.20 - 0.95 10*3/uL 09/11/2024 9:36 AM EST [facility] Eosinophil # 0.10 0.02 - 0.50 10*3/uL 09/11/2024 9:36 AM EST [facility] Basophil # <0.03 0.00 - 0.20 10*3/uL 09/11/2024 9:36 AM EST [facility] LAB[facility] nRBC % 0.0 /100 WBCs 09/11/2024 9:36 AM EST [facility] nRBC # <0.01 <0.01 10*3/uL 09/11/2024 9:36 AM EST [facility] Blood Structure of peripheral vein / Unknown Venipuncture / Unknown 09/11/2024 9:08 AM EST 09/11/2024 9:27 AM EST us Yasmin Ho MD LAB BLOOD ORDERABLES Final R esult [facility] [address] [place] [address], * AFP Tumor Marker (09/11/2024 9:08 AM EST) Alpha Fetoprotein, Tumor Marker 3.4 ng/mL 09/12/2024 12:39 PM EST [facility] Comment: Reference Range: ?? <6.1 The use [...] AM EST 09/11/2024 9:26 AM EST Narrative [facility] - 09/12/2024 12:39 PM EST [facility] Received Date: us Yasmin Ho MD LAB BLOOD ORDERABLES Final R esult Performing Organization Address City/[facility]/ZIP Co de Phone Number [facility] [address], [place] [address], [place] [phone] [facility] [address], [place] [address], [place] [phone] * Protime-INR (09/11/2024 9:08 AM EST) PT 12.2 9.6 - 12.4 Seconds 09/11/2024 9:52 AM EST [facility] INR 1.1 0.9 - 1.1 09/11/2024 9:52 AM EST [facility] Comment:The optimal therapeu tic INR range for patients treated with Vitamin K antagonists (VKAS, e.g., Warfarin) is 2.0 to 3.5. Discuss the desired range with your doctor/care team. Blood Structure of peripheral vein / Unknown Venipuncture / Unknown 09/11/2024 9:08 AM EST 09/11/2024 9:26 AM EST us Yasmin Ho MD LAB BLOOD ORDERABLES Final R esult [facility] [address] [place] [address], [place] * (ABNORMAL) Bilirubin, Direct (09/11/2024 9:08 AM EST) Bilirubin, Direct 6.9(H) <=0.4 mg/dL 09/11/2024 10:02 AM EST [facility] Blood Structure of peripheral vein / Unknown Venipuncture / Unknown 09/11/2024 9:08 AM EST 09/11/2024 9:25 AM EST us Yasmin Ho MD LAB BLOOD ORDERABLES Final R esult [facility] [address] [place] [address], * (ABNORMAL) Comprehensive Metabolic Panel (09/11/2024 9:08 AM EST) NA 142 135 - 145 mmol/L 09/11/2024 10:02 AM EST [facility] K 3.6 3.5 - 5.3 mmol/L 09/11/2024 10:02 AM EST [facility] Cl 110(H) 98 - 107 mmol/L 09/11/2024 10:02 AM EST [facility] CO2 19(L) 22 - 32 mmol/L 09/11/2024 10:02 AM EST [facility] Anion Gap 13 5 - 15 09/11/2024 10:02 AM EST [facility] Glucose 242(H) 65 - 99 mg/dL 09/11/2024 10:02 AM EST [facility] Creatinine 0.67 0.50 - 1.20 mg/dL 09/11/2024 10:02 AM EST [facility] Calcium 8.8 8.6 - 10.5 mg/dL 09/11/2024 10:02 AM EST [facility] Total Protein 6.6 6.0 - 8.0 g/dL 09/11/2024 10:02 AM [facility] [employer] CLINICAL PATHOLOGY LABORATORY Albumin 3.3(L) 3.5 - 5.2 g/dL 09/11/2024 10:02 AM [facility] [employer] CL[facility]ICAL PATHOLOG[facility] LABORATORY Bilirubin, Total 8.7(H) 0.2 - 1.2 mg/dL 09/11/2024 10:02 AM [facility] [employer] CL[facility]ICAL PATHOLOGY LABORATORY Alkaline Phosphatase 1,141(H) 35 - 129 U/L 09/11/2024 10:02 AM [facility] [employer] CL[facility]ICAL PATHOLOGY LABORATORY AST 122(H) 10 - 40 U/L 09/11/2024 10:02 AM [facility] [employer] CLINICAL PATHOLOGY LABORATORY ALT 105(H) 10 - 40 U/L 09/11/2024 10:02 AM [facility]ASHINGTONSeedrsFLSpace [facility]encilNY [employer] CL[facility] PATHOLOG[facility] LABORATORY BUN 18 7 - 23 mg/dL 09/11/2024 10:02 [facility]IT[facility]UN[facility] [employer] CLINICAL PATHOLOGY LABORATORY eGFR >90 >=60 mL/min/1 .73m2 09/11/2024 10:02 AM [facility]ASHINGTONPolyPidUN[facility] [employer] CLINICAL PATHOLOGY LABORATORY Comment:The estimated glomer ular [...] 3.3 2.1 - 4.2 g/dL 09/11/2024 10:02 [facility]IT[facility]agle [facility] EnterprisesUN[facility] [employer] CLINICAL PATHOLOGY LABORATORY A/G Ratio 1.0(L) 1.5 - 3.0 09/11/2024 10:02 [facility]IT[facility]agle [facility] EnterprisesUN[facility] [employer] CLINICAL PATHOLOGY LABORATORY Blood Structure of peripheral vein / Unknown Venipuncture / Unknown 09/11/2024 9:08 AM EST 09/11/2024 9:25 AM EST Yasmin Ho MD LAB BLOOD ORDERABLES Final R esult Performing Organization Address [facility] Co de Phone Number [facility] [address] [place] [address], * Microalbumin, Random Urine with Creatinine (04/26/2024 4:22 PM EDT) Pathologist [facility] Microalbumin, Urine <2.0 mg/dL 04/26/2024 5:20 PM EDT [facility]FO[facility] [employer] CL[facility]ICAL PATHOLOGY LABORATORY Creatinine, Urine 69 15 - 278 mg/dL 04/26/2024 5:20 PM EDT [facility] CLINICAL PATHOLOGY LABORATORY Microalb/Creat Ratio, Random Urine 04/26/2024 5:20 PM EDT [facility]FO[facility] [employer] CLINICAL PATHOLOGY LABORATORY Comment: < 1.0 mcg/mgCr Microalbumin Reference Range: Normal ? <30 mcg/mg Creatinine Microalbuminuria ? 30-300 mcg/mg Creatinine Clinical Albuminuria >300 mcg/mg Creatinine Reference: ADA Guideline. Diabetes Care. 2004;27 (suppl 1) Urine Voided urine specimen / Unknown Non-Blood Collection / Unknown 04/26/2024 4:22 PM EDT 04/26/2024 4:35 PM EDT Natasha Kramer MD LAB URINE ORDERABLES Final Resul t Performing Organization Address [facility] Co de Phone Number [facility] [address] [place] [address], * Hepatitis C Antibody w/Reflex to PCR (09/20/2023 12:40 PM EST) Pathologist [facility] Hepatitis C Antibody NON-REACT VIVEK NON-REACT VIVEK 09/21/2023 6:41 AM EST [employer] Comment: HCV antibody was non-reactive. There is no laboratory evidence of HCV infection. In most cases, no further action is required. However, if recent HCV exposure is suspected, a test for HCV RNA (test code 50568) is suggested. For additional information please refer to http://education.[employer]/faq/QYT84a9 (This link is being provided for informational/ educational purposes only.) Blood Structure of peripheral vein / Unknown Venipuncture / Unknown 09/20/2023 12:40 PM EST 09/20/2023 1:07 PM EST Narrative [facility] - 09/21/2023 6:41 AM EST [facility] Received Date: us Yasmin Ho MD LAB BLOOD ORDERABLES Final R esult 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
--- OUTSIDE RECORDS SUMMARY | 2024-12-07 19:34 | XMS_ITS | Encounter Summary ---
Author Organization [employer] Address [address] [facility] [address] 7[address] [place] [address] Care Team Providers Care Client Architect Name Role Phone Sammie Maharaj MD Primary Care Provider [phone] Loyda Glaser RN Unavailable [phone] Yasmin Ho MD Unavailable [phone] Reason for Visit * Reason Comments Med Refill Encounter Details Date Type Department Care Team (Late st Contact Info) Description 11/13/2024 Refill [facility] [address] [place], [place] [phone] Sammie Maharaj MD [address] [place], [place] [phone] Tinea unguium Social History Tobacco Use Types [...] 02/25/2025 9:00 AM EDT Office Visit [facility] OPTOMETRY [address] [place] [address] Mckay, Darshana, OD [address] [place] [address] documented as of this encounter Visit Diagnoses Diagnosis Tinea unguium Dermatophytosis of nail documented in this encounter Additional Health Concerns Assessment Noted Time PHQ-9 Depression Total Score: 0 10/24/19 25 9:33 AM EST documented as of this encounter Care Teams Client Architect Relationship Specialty Start Date End Date Sammie Maharaj MD [address] [place] [address] PCP - General Family Medicine 10/10/18 Loyda Glaser, ERVIN [address] [place] [address] Program Manufacturing Leader Family Medicine 10/31/23 Yasmin Ho MD [address] [place] [address] Gastroenterology 08/29/24 Manuel Carpenter PA [address] [phone] Neurology 08/29/24 Paola Tolentino NP [address] [address] Endocrinology 10/24/24 documented as of this encounter
--- OUTSIDE RECORDS SUMMARY | 2024-12-07 19:34 | XMS_ITS | Encounter Summary ---
Author Organization [employer] [facility] Address [address] [place] [address] 7t [place] [address] Care Team Providers Care Burner Technician Name Role Phone Sammie Maharaj MD Primary Care Provider [phone] Loyda Glaser RN Unavailable [phone] Yasmin Ho MD Unavailable Encounter Details Date Type Department Care Team (Late st Contact Info) Description 11/11/2022 Abstract [facility] MEDICINE [address] [place] [address] Sammie Maharaj MD [address] [place] [address] Social History Tobacco Use Types Packs/Day Years [...] Description 02/25/2025 9:00 AM EDT Office Visit [facility] OPTOMETRY [address] [place], [place] [phone] Darshana Bashir OD [address] [place] [address] documented as of this encounter Procedures Procedure Name Priority Date/Time Associated Diagnosis Comments PAP SMEAR Routine 03/25/2021 12:00 AM EDT documented in this encounter Results * Pap Smear (03/25/2021 12:00 AM EDT) Swab us Historical Provider LAB CYTOLOGY ORDERABLES F inal Result IMAGING documented in this encounter Visit Diagnoses Not on filedocumented in this encounter Care Teams Burner Technician Relationship Specialty Start Date End Date Sammie Maharaj MD [address] [place] [address] PCP - General Family Medicine 10/10/18 Loyda Glaser RN [address] [place] [address] Sweat Band Separator Family Medicine 10/31/23 Yasmin Ho MD [address] [place] [address] Gastroenterology 08/29/24 Manuel Carpenter PA [facility] [address] [facility] [address] Neurology 08/29/24 Paola Tolentino, HEBERT [address] [address] Endocrinology 10/24/24 documented as of this encounter
--- OUTSIDE RECORDS SUMMARY | 2024-12-07 19:34 | XMS_ITS | Encounter Summary ---
Author Organization [employer] [facility] Address [address] 7t [place] [address] Care Team Providers Care New Car Make Ready Mechanic Name Role Phone Sammie Maharaj MD Primary Care Provider [phone] Loyda Glaser RN Unavailable [phone] Yasmin Ho MD Unavailable [phone] Reason for Visit * Reason Onset Date Comments Referral 12/01/2022 Encounter Details Date Type Department Care Team (Late st Contact Info) Description 12/01/2022 Telephone [facility] MEDICINE [address] [place] [address] Sammie Maharaj MD [address] [place], [place] [phone] Referral Social History Tobacco Use Types Packs/Day [...] [facility] Please contact pt at [phone] or Becca [phone] documented in this encounter Plan of Treatment Upcoming Encounters Date Type Department Care Team (Late st Contact Info) Description 02/25/2025 9:00 AM EDT Office Visit [facility] OPTOMETRY [address] [place], [place] [phone] Darshana Bashir, OD [address] [place] [address] documented as of this encounter Visit Diagnoses Not on filedocumented in this encounter Care Teams New Car Make Ready Mechanic Relationship Specialty Start Date End Date Sammie Maharaj MD [address] [place] [address] PCP - General Family Medicine 10/10/18 Loyda Glaser, ERVIN [address] [place] [address] Industrial Health And Safety Professor Family Medicine 10/31/23 Yasmin Ho MD [address] [place] [address] Gastroenterology 08/29/24 Manuel Carpenter PA [address] [address] Neurology 08/29/24 Paola Tolentino NP [address] [address] Endocrinology 10/24/24 documented as of this encounter
--- OUTSIDE RECORDS SUMMARY | 2024-12-07 19:34 | XMS_ITS | Encounter Summary ---
Author Organization [employer] [facility] Address [address] [facility] 7t [place] [address] Care Team Providers Care Shelf Drier Operator Name Role Phone Brandon, Sammie JOHNSON Primary Care Provider [phone] Loyda Glaser RN Unavailable [phone] Yasmin Ho MD Unavailable [phone] Encounter Details Date Type Department Care Team (Late st Contact Info) Description 12/01/2022 Orders Only [facility] MEDICINE [address] [place] [address] Ericka Osei MD [address] [place] [address] Visual problems (Primary Dx) Social History Tobacco [...] Office Visit [facility] OPTOMETRY [address] [place], [place] [phone] Mckay, Darshana, OD [address] [place] [address] documented as of this encounter Visit Diagnoses Diagnosis Visual problems- Primary documented in this encounter Care Teams Shelf Drier Operator Relationship Specialty Start Date End Date Nicko, Sammie, MD [address] [place] [address] PCP - General Family Medicine 10/10/18 Loyda Glaser, RN [address] [place] [address] Engine Inspector Family Medicine 10/31/23 Yasmin Ho MD [address] [place] [address] Gastroenterology 08/29/24 Manuel Carpenter PA [facility] [address] [facility] [address] Neurology 08/29/24 Paola Tolentino, COMMODITY SPECIALIST [address] [address] Endocrinology 10/24/24 documented as of this encounter
--- OUTSIDE RECORDS SUMMARY | 2024-12-07 19:35 | XMS_ITS | Encounter Summary ---
Demographics Address [address] [facility] [address] [place] [address] Home Phone Mobile Phone Preferred Language Georgian; Castilian Marital Status Single Spiritism Affiliation Unknown Race Unknown Ethnic Group Unknown Author Organization [facility] Address [address] [place] [address] Support Name Relationship Address Phone Orion Rubio Daughter [address] [facility] [address] [place] [address] Care Team Providers Care Lifter/Driver Name Role Phone Sammie Maharaj Sujit Primary Care Provider [phone] Encounter Details Date Type Department Care Team (Late st Contact Info) Description 07/13/2017 Transplant Conversio n Encounter [facility] Health Information Management [address] [place] [address] Provider, [facility] Social History Tobacco Use Types [...] Info) Description 01/08/2025 8:00 AM EDT Follow-Up [facility] Liver Transplant Services [address] [place] [address] Yasmin Ho MD [address] [place] [address] 03/22/2025 3:30 PM EDT Office Visit [facility] ACC Building Diabetes Clinic [address] [place] [address] Tool And Cutter Grinder: Natasha Rubalcava MD [address] [place] [address] 07/17/2025 8:00 AM EDT Office Visit [facility] Diabetes Clinic [address] [place] [address] Tool And Cutter Grinder: Paola Vance ATHLETIC COACH [address] [place] [address] 08/06/2025 8:00 AM EDT Office Visit [facility] Neurology Clinic [address] [place] [address] Manuel Carpenter PA [address] [place] [address] documented as of this encounter Visit Diagnoses Not on filedocumented in this encounter Care Teams Lifter/Driver Relationship Specialty Start Date End Date Sammie Maharaj: [phone] [address] [place] [address] PCP - General Family Medicine 05/15/18 documented as of this encounter
--- OUTSIDE RECORDS SUMMARY | 2024-12-07 19:35 | XMS_ITS | Clinical Summary ---
Author Organization [employer] Address [address] [place] [address] [address] [place] [address] Care Team Providers Care Squirrel Man Name Role Phone Nicko, Sammie JOHNSON Primary Care Provider [phone] Loyda Glaser RN Unavailable [phone] Yasmin Ho MD Unavailable Allergies Active Allergy Reactions Criticality Noted Date Comments Acetaminophen 09/09/2014 Other reaction(s): Rash Latex Rash Low 06/29/2023 Medications insulin glargine (Lantus SoloStar) 100 UNIT/ML penIndications:U ncontrolled type 2 diabetes mellitus with hyperglycemia, with long-term current use of insulin (CMS/HCC) Inject 18 Units under the skin at bedtime. 15 mL 3 01/18/2024 Active zonisamide (Zonegran) 100 MG capsuleIndicatio ns:Complex partial seizure (CMS/HCC) Take 100 mg by mouth Once per day. Two tab po qhs Active ursodiol (Actigall) 250 MG tablet Take 1 tablet by mouth 3 times daily. 10/19/2024 Active beta carotene (vitamin A) 3 MG (56117 UT) capsule Take 1 capsule by mouth Once per day. 10/24/2024 Active predniSONE (Deltasone) 20 MG tablet Take 1 tablet (20 mg) by mouth Once per day for 5 days. 5 tablet 12/03/2024 12/09/19 25 Active oxyCODONE (Roxicodone) 5 MG immediate release tabletIndication s:Intractable headache, unspecified chronicity pattern, unspecified headache type Take 1 tablet (5 mg) by mouth every 12 (twelve) hours if needed for severe pain for up to 3 days. 6 tablet 12/05/2024 12/09/19 Active Active Problems Patient Care Coordination No te Formatting of this note migh t be different from the original. [facility] provider line [phone], called 09/29/23 Breanna Burleson [phone]. cell [phone] DIGITAL MUSIC INSTRU[employer] services via BERENICE, DIGITAL MUSIC INSTRUCTOR Laxmi Mas Problem Noted Date Diagnosed Date Intractable headache 12/05/2024 Overview (12/05/2024): Suspect due to underlying end stage liver disease. Has follow-up with Neurologist. No acute warning signs. Neurologically intact. -prescribed 5 mg Oxycodone every 12 hrs for 5 days 12/05/24 Assessment & Plan (12/05/2024 2:40 PM EST): Suspect due to underlying end stage liver disease. Has follow-up with Neurologist. No acute warning signs. Neurologically intact. -prescribed 5 mg Oxycodone every 12 hrs for 5 days 12/05/24 Atopic dermatitis in adult 12/03/2024 Assessment & [...] if needed. I spoke with Liz at [facility] liver transplant clinic, explained the situation and ask them to run the pictures and case by control director in case this is not related to [...] Overview (06/01/2024): CT abd pelvis ordered by [facility] and dated 01/28/24 IMPRESSION: 1. A 1.3 [...] appear significantly changed from 2021, possibly reactive. [facility] not from 02/24/24 Telephone Encounter - Katy Boateng RN 10:24 AM LVM for patient using underground mine machinery mechanic, Ari [id number], about results of MRI and scheduling of [...] AM EST): CT abd pelvis ordered by [facility] and dated 01/28/24 IMPRESSION: 1. A 1.3 [...] appear significantly changed from 2021, possibly reactive. 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 I called [facility] provider line [phone], 09/29/23 and spoke to linda Burleson [phone]. He reported extensive hx of working it pt and she was on the waiting list for starvros. Her DIGITAL MUSIC INSTRUCTOR will be Laxmi Mas her friend. 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 I called [facility] provider line [phone], 09/29/23 and spoke to [facility] Hussein Burleson [phone]. He reported extensive hx of working it pt and she was on the waiting list for starvros. Her DIGITAL MUSIC INSTRUCTOR will be Laxmi Mas her friend. -She has been approved for DIGITAL MUSIC INSTRUCTOR hours but have not started yet as of 01/18/2024 Pain in hand and fingers 09/29/2023 Overview (01/18/2024): -refer to occupational therapy 01/18/2024 Assessment & Plan (09/29/2023 11:55 AM EST): No etiology on exam. Pt high risk for dyupetryns. Recommend warm wraps and rest. Other specified health status 07/21/2023 Overview (07/09/2024): -next physical exam due after 07/09/25 -eye care facilitated by [facility] -dental home is [facility] -health care proxy paperwork given 10/20/23. Filed 07/09/24 Assessment & Plan (10/24/2024 9:48 AM EST): -next physical exam due after 07/09/25 -eye care facilitated by [facility] -dental home is [facility] -health care proxy paperwork given 10/20/23. Filed 07/09/24 Assessment & Plan (07/09/2024 10:17 AM EDT): -next physical exam due after 07/09/25 -eye care facilitated by [facility] -dental home is [facility] [address] -health care proxy paperwork given 10/20/23. Filed 07/09/24 Assessment & Plan (01/18/2024 9:16 AM EDT): -next physical exam due after 07/28/2024 -eye care facilitated by [facility] -dental home is none -health care proxy paperwork given 10/20/23 Assessment & Plan (10/20/2023 9:33 AM EST): -next physical exam due after 07/28/2024 -eye care facilitated by [facility] referral placed 09/29/23 -dental home is none -health care proxy paperwork given 10/20/23 Assessment & Plan (09/29/2023 11:46 AM EST): -next physical exam due after 07/28/2024 -eye care facilitated by [facility] referral placed 09/29/23 -dental home is none Assessment & Plan (07/28/2023 10:05 AM EDT): -next physical exam due after 07/28/2024 -eye care facilitated by [facility] -dental home is none Type 2 [...] from 18-14 by endo 04/2024 Seen by [facility] endocrinology 04/18/24 Hemoglobin A1c is falsely [...] approval for her to upgrade to the [employer] lilia 3 CGM. Assessment & Plan (10/24/2024 [...] from 18-14 by endo 04/2024 Seen by [facility] endocrinology 04/18/24 Hemoglobin A1c is falsely [...] approval for her to upgrade to the [employer] lilia 3 CGM. Assessment & Plan (07/09/2024 [...] from 18-14 by endo 04/2024 Seen by [facility] endocrinology 04/18/24 Hemoglobin A1c is falsely [...] approval for her to upgrade to the [employer] lilia 3 CGM. Assessment & Plan (01/18/2024 [...] 12/27/2016 End stage liver disease 11/26/2016 Overview (12/05/2024): On liver transplant list since December 2023. 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 Etiology unclear. At times she has had a transient hepatitis B positive test, but that might have been passive after blood transfusion. Last HBV PCR January 2017 was negative. She is followed by [facility] Liver Clinic. -liver biopsy 2018 mild, grade [...] services with Dr. Yasmin Ho MD of [facility] 02/2024, note reviewed: She [...] 2021, possibly reactive. -liver biopsy done at [facility] 05/01/24, results pending -liver biopsy results [...] Saw Transplant Hepatology and GI specialist at [facility] on 09/11/24. Per note, she remains active on LT waitlist with an updated MELD 3.0 of 19 based on blood work in April 2024. Etiology of her liver disease and progressive jaundice remains unclear despite prior MRI/MRCP and interval liver biopsy in May 2024 which was non-specific with non-specific findings which we reviewed with patient and [id number] again today. We recommended continuation of empiric [...] labs show elevated LFTs. Labs sent to control director. 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 Recommending redraw next week with PT and INR to update meld. Lab order was faxed. -reordered labs 12/05/24 Assessment & Plan (12/05/2024 2:36 PM EST): On liver transplant list since December 2023. 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 Etiology unclear. At times she has had a transient hepatitis B positive test, but that might have been passive after blood transfusion. Last HBV PCR January 2017 was negative. She is followed by [facility] Liver Clinic. -liver biopsy 2019 mild, [...] services with Dr. Yasmin Ho MD of [facility] 02/2024, note reviewed: She [...] 2021, possibly reactive. -liver biopsy done at [facility] 05/01/24, results pending -liver biopsy results [...] Saw Transplant Hepatology and GI specialist at [facility] on 09/11/24. Per note, she remains active on LT waitlist with an updated MELD 3.0 of 19 based on blood work in April 2024. Etiology of her liver disease and progressive jaundice remains unclear despite prior MRI/MRCP and interval liver biopsy in May 2024 which was non-specific with non-specific findings which we reviewed with patient and [id number] again today. We recommended continuation of empiric [...] labs show elevated LFTs. Labs sent to control director. 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 Recommending redraw next week with PT and INR to update meld. Lab order was faxed. -reordered labs 12/05/24 Assessment & Plan (10/24/2024 9:47 AM EST): [...] 2017 was negative. She is followed by [facility] Liver Clinic. -liver biopsy 2019 mild, [...] services with Dr. Yasmin Ho MD of [facility] 02/2024, note reviewed: She [...] 2021, possibly reactive. -liver biopsy done at [facility] 05/01/24, results pending -liver biopsy results [...] Saw Transplant Hepatology and GI specialist at [facility] on 09/11/24. Per note, she remains active on LT waitlist with an updated MELD 3.0 of 19 based on blood work in April 2024. Etiology of her liver disease and progressive jaundice remains unclear despite prior MRI/MRCP and interval liver biopsy in May 2024 which was non-specific with non-specific findings which we reviewed with patient and [id number]-vi-osy again today. We recommended continuation of empiric [...] 2017 was negative. She is followed by [facility] Liver Clinic. -liver biopsy 2019 mild, [...] services with Dr. Yasmin Ho MD of [facility] 02/2024, note reviewed: She [...] 2021, possibly reactive. -liver biopsy done at [facility] 05/01/24, results pending -liver biopsy results [...] not drive), baths or swimming. Awaiting new DIGITAL MUSIC INSTRUCTOR provider. Daughter aware of how to call 911. Followed by neurologist, -followed by Dr. Jono Eden at [facility]. Next appointment 08/2024 -she [...] her prior hemorrhagic stroke. -Saw Neurologist at [facility] 08/20/24, Plan: continue ZNS 200 mg daily [...] not drive), baths or swimming. Awaiting new DIGITAL MUSIC INSTRUCTOR provider. Daughter aware of how to call 911. Followed by neurologist, -followed by Dr. Jono Eden at [facility]. Next appointment 08/2024 -she self dc? d her aspirin. I recommended she called neurology to get refills on her medication -she has been seizure free with Zonisamide 200 mg nightly and ran out of supplies 6 months ago. I recommend to resume Zonisamide since her risk of recurrent seizure is over 60% due to her prior hemorrhagic stroke. -Saw Neurologist at [facility] 08/20/24, Plan: continue ZNS 200 mg daily and follow up in one year, or sooner if needed. -she has no idea if she is taking this. [facility] rec referral placed 10/24/24 Assessment & [...] not drive), baths or swimming. Awaiting new DIGITAL MUSIC INSTRUCTOR provider. Daughter aware of how to call 911. Followed by neurologist, -followed by Dr. Jono Eden at [facility]. Next appointment 08/2024 -she self dc? d [...] -Has follow up on Aug 20 at [facility] Assessment & Plan (10/20/2023 8:57 AM EST): [...] 2017 was negative. She is followed by [facility] Liver Clinic. -liver biopsy 2019 mild, [...] services with Dr. Yasmin Ho MD of [facility] 12/12/2023, note reviewed Cirrhosis: [...] diet discussed. Avoid hepatotoxic agents. -Followed by: [facility] -continue ursodiol therapy given marked AP elevation and potential for AMA negative PCB. -transplant candidacy will be determined by multidisciplinary transplant committee after all appropriate testing has been performed. -Has follow up with liver transplant sustainability consultant on at [facility] -Per pt, On liver transplant list since [...] 2017 was negative. She is followed by [facility] Liver Clinic. -seen by Liver Transplant [...] diet discussed. Avoid hepatotoxic agents. -Followed by: [facility] -continue ursodiol therapy given marked AP elevation and potential for AMA negative PCB. -transplant candidacy will be determined by multidisciplinary transplant committee after all appropriate testing has been performed. -call place by me to [facility] care companion at [facility] [phone] to stress the urgency of DIGITAL MUSIC INSTRUCTOR services and increase level of care. He [...] 2017 was negative. She is followed by [facility] Liver Clinic. -seen by Liver Transplant [...] diet discussed. Avoid hepatotoxic agents. -Followed by: [facility] -continue ursodiol therapy given marked AP elevation and potential for AMA negative PCB. -transplant candidacy will be determined by multidisciplinary transplant committee after all appropriate testing has been performed. -call place by me to [facility] care companion at [facility] [phone] cell [phone] to stress the urgency of DIGITAL MUSIC INSTRUCTOR services and increase level of care. He [...] 2017 was negative. She is followed by [facility] Liver Clinic. The possibility for liver [...] in her care. 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 and multiple [...] Encounters Date Type Department Care Team Description 12/07/[address] [address] Sammie Maharaj MD Nurse Triage 12/05/2024 2:00 PM EST Office Visit [facility] [address] [place] [id number] Sammie Maharaj MD End stage liver disease (CMS/HCC) (Primary Dx); Intractable headache, unspecified chronicity pattern, unspecified headache type 12/05/[address] [address] Uma Jiménez, ERVIN 12/05/[address] [address] Sammie Maharaj MD Nurse Triage 12/04/2024 Telephone [facility] [address] [place] [phone] Rocio Bell MD 12/03/2024 11:00 AM EST Office Visit [facility] [address] [address] Rocio Bell MD Atopic dermatitis in adult (Primary Dx); End stage liver disease (CMS/HCC) 12/03/[address] [address] Rosaura Almeida, ERVIN Results (Rocio Bell MD/12/03/2024 5:04 PM EST /Labs showed mild worsening of bili's and alk phos, rule out obstructive fissures or may be autoimmune hepatitis. /Her inflammatory markers are higher as well. She ideally should be seen by hot kettle tender now or run these labs by control director, /I spoke with Maria L at [facility] hepatology/transplant clinic and unfortunately no one was available at the office at the time. /She will send this information to the covering providers and have then get back to us, ) 11/13/2024 Refill [facility] [address] [place] [phone] Sammie Maharaj MD Tinea unguium 11/02/2024 9:00 AM EST Clinical Support [address] [address] Laya Horan, rTe Type 2 diabetes mellitus with hyperglycemia, with long-term current use of insulin (CMS/HCC) (Primary Dx); Complex partial seizure (CMS/HCC); End stage liver disease (CMS/HCC) 10/24/2024 9:30 AM EST Office Visit [address] [address] Sammie Maharaj MD Complex partial seizure (CMS/HCC) (Primary Dx); End stage liver disease (CMS/HCC); Type 2 diabetes mellitus with hyperglycemia, with long-term current use of insulin (CMS/HCC); Complex care coordination; Abnormal CT of the abdomen; Other specified health status; Tray dover 10/24/2024 Travel 10/24/2024 Refill [facility] [address] [place] [phone] Sammie Maharaj MD Microcytic anemia 10/23/[address] [address] Laya Azul MA 10/23/[address] [address] Laya Azul MA chartprep 09/26/2024 Refill [facility] [address] [place] [id number] Sammie Maharaj MD Tinea unguium from Last 3 Months Immunizations Name Administration Dates Next Due DTaP, 5 pertussis antigens 04/03/2010 Hep A, Adult 05/01/2009,02/29/2008 Hep B, adult 09/29/2023,07/28/2023,07/13/2019 Hib (HbOC) 06/11/2009 Influenza injectable quadriv alent IIV4 with [...] (113 lb) 12/05/2024 2:02 PM EST Height 147.3 cm (4' 10 ) 12/03/2024 10:39 AM EST Body Mass Index 23.62 12/03/2024 10:39 AM EST Plan of Treatment Upcoming Encounters Date Type Department Care Team (Late st Contact Info) Description 02/25/2025 9:00 AM EDT Office Visit [facility] [address] [place], [place] [id number] Darshana Bashir, OD [address] [place] [address] Health Maintenance Due Date Last Done Comments [...] Additional history exists Eye Exam 11/11/2025 11/11/2023, 11/2023, 11/11/2023, Additional history exists Tobacco Screening [...] hyperglycemia, with long-term current use of insulin ([facility]/HCC) POCT GLYCOSYLATED HEMOGLOBIN (HGB A1C) Routine 07/09/2024 3:59 PM EDT Type 2 diabetes mellitus with hyperglycemia, with long-term current use of insulin ([facility]/HCC) BI MAMMOGRAM SCREENING TOMOSYNTHESIS BILATERAL Routine 09/06/2023 [...] Blood Count 7.3 4.8 - 10.8 X10*3/uL [facility] Red Blood Count 4.10(L) 4.20 - 5.50 X10*6/uL [facility] Hemoglobin 12.9 12.0 - 16.0 g/dl [facility] Hematocrit 38.1 37.0 - 47.0 % [facility] Mean Corpuscular Volume 92.9 80.0 - 98.0 fL [facility] Mean Corpuscular Hemoglobin 31.5 27.0 - 33.0 pg [facility] Mean Corpuscular HGB Conc 33.9 31.0 - 35.0 g/dl [facility] Red Cell Distribution Width 13.5 11.0 - 16.0 % [facility] Platelet Count 114(L) 160 - 400 X10*3/uL [facility] Mean Platelet Volume 13.0(H) 9.4 - 12.3 fL [facility] Neutrophils Percent Auto 78.5(H) 45 - 73 % [facility] Imm Gran Pct Auto 0.6(H) 0.0 - 0.4 % [facility] Lymphocytes Percent Auto 9.2(L) 20 - 40 % [facility] Monocytes Percent Auto 10.7 2 - 11 % [facility] Eosinophils Percent Auto 0.7 0 - 4 % [facility] Basophils Percent Auto 0.3 0 - 2 % [facility] NRBC Pct Auto 0.0 0.0 - 0.2 /100WBC [facility] Neutrophils Absolute Auto 5.7 2.0 - 8.3 x10*3/uL [facility] Imm Gran Abs Auto 0.04(H) 0.00 - 0.03 X10*3/uL [facility] Lymphocytes Absolute Auto 0.7(L) 1.2 - 4.9 X10*3/uL [facility] Monocytes Absolute Auto 0.8 0.1 - 1.2 X10*3/uL [facility] Eosinophils Absolute Auto 0.1 0.0 - 0.4 X10*3/uL [facility] Basophils Absolute Auto 0.0 0.0 - 0.2 X10*3/uL [facility] NRBC Abs Auto 0.000 0.0 - 0.012 X10*3/uL [facility] Blood Venous blood specimen / Unknown 12/03/2024 12:21 PM EST 12/03/2024 12:21 PM EST us Rocio Bell MD LAB BLOOD ORDERABLES Fin al Result [facility] [address] [place] [phone] * (ABNORMAL) Sed Rate by Modified Naty (12/03/2024 12:21 PM EST) Erythrocyte Sedimentation Rate 67(H) 0 - 20 MM/HR [facility] Comment:Patients with polycy themia and many hemoglobin abnormalitiesmay have depressed sed rates whereas patients with anemiamay have elevated sed rates. Blood Venous blood specimen / Unknown 12/03/2024 12:21 PM EST 12/03/2024 12:21 PM EST Rocio Bell MD LAB BLOOD ORDERABLES Fin al Result Performing Organization Address [facility] Co de Phone Number [facility] [address] [place] [phone] * (ABNORMAL) C-reactive Protein (12/03/2024 12:21 PM EST) C Reactive Protein 17.87(H) < or = 0.50 mg/dL [facility] Blood Venous blood specimen / Unknown 12/03/2024 12:21 PM EST 12/03/2024 12:21 PM EST Rocio Bell MD LAB BLOOD ORDERABLES Fin al Result Performing Organization Address [facility] Co de Phone Number [facility] [address] [place] [phone] * (ABNORMAL) Ammonia, Plasma (12/03/2024 12:21 PM EST) Ammonia (P) 72(H) 13 - 55 umol/L [facility] Blood Venous blood specimen / Unknown 12/03/2024 12:21 PM EST 12/03/2024 12:21 PM EST Rocoi Bell MD LAB BLOOD ORDERABLES Fin al Result Performing Organization Address [facility] Co de Phone Number [facility] [address] [place] [phone] * (ABNORMAL) Hepatic Function Panel (12/03/2024 12:21 PM EST) Only the most recent of2 resultswithin the time period is included. Bilirubin, Total 11.9(H) 0.0 - 1.0 mg/dL [facility] Comment:Mild Icterus. Bilirubin, Direct 9.3(H) 0.0 - 0.5 mg/dL [facility] Comment:Mild Icterus. Aspartate Amino Transferase 108(H) 5 - 31 U/L [facility] Alanine Aminotransferase 95(H) 0 - 31 U/L [facility] Total Protein 6.8 6.5 - 8.0 g/dL [facility] Albumin Level 3.0(L) 3.5 - 5.0 g/dL [facility] Alkaline Phosphatase 1,064(H) 39 - 117 U/L [facility] Blood Venous blood specimen / Unknown 12/03/2024 12:21 PM EST 12/03/2024 12:21 PM EST us Rocio Bell MD LAB BLOOD ORDERABLES Fin al Result Performing Organization Address [facility]/ZIP Co de Phone Number [facility] [address] [place] [phone] * Albumin, Random Urine W/Creatinine (11/05/2024 10:20 AM EST) Creatinine, Urine 59.34 mg/dL [facility] Microalbumin Urine <5.0 mg/L [facility] Microalbum Creatinine Ratio Ur TNP <30 ug/mg cr [facility] Comment:Unable to calculate albumin/creatinine ratio due to lowmicroalbumin or creatinine result. Urine 11/05/2024 10:2 0 AM EST 11/05/2024 11:21 AM EST us Sammie Maharaj MD LAB URINE ORDERABLES Final Result Performing Organization Address [facility]/ZIP Co de Phone Number [facility] [address] [place] [phone] * (ABNORMAL) Lipid Panel, Standard (10/24/2024 9:59 AM EST) Triglycerides 91 <150 mg/dL [facility] Comment:Mild Icterus.Interpr et result with caution.Desirable Triglyceride: less than 150 mg/dLBorderline High Triglyceride 150-199 mg/dLHigh Triglyceride: 200-499 mg/dLVery High Triglyceride: greater than or equal to 5OO mg/dL Cholesterol 132 <200 mg/dL [facility] Comment:Mild Icterus.Interpr et result with caution.Desirable Cholesterol: less than 200 mg/dLBorderline High Cholesterol: 200-239 mg/dLHigh Cholesterol: greater than 239 mg/dL LDL Cholesterol Calculated 92 <100 mg/dL [facility] Comment:Desirable LDL: less than 100 mg/dLNear Optimal/Above Optimal LDL: 110- 129 mg/dLBorderline High LDL: 130-159 mg/dLHigh LDL: 160-189 mg/dLVery High LDL: greater than or equal to 190 mg/dL HDL Cholesterol 22(L) >40 mg/dL [facility] Comment:Desirable HDL: great er than 40 mg/dL Note: This HDL assay may give artificially low results in patients with liver disease. Blood Venous blood specimen / Unknown 10/24/2024 9:59 AM EST 10/24/2024 11:05 AM EST us Sammie Maharaj MD LAB BLOOD ORDERABLES Final Result [facility] [address] [place] [address] [phone] * (ABNORMAL) Basic Metabolic Panel (10/24/2024 9:59 AM EST) Sodium 140 135 - 145 mmol/L [facility] Potassium 3.4 3.3 - 5.1 mmol/L [facility] Chloride 115(H) 96 - 108 mmol/L [facility] Carbon Dioxide 20(L) 22 - 29 mmol/L [facility] Anion Gap 8(L) 12 - 20 [facility] Urea Nitrogen (BUN) 11 9 - 16 mg/dL [facility] Creatinine, Serum 0.48(L) 0.5 - 1.4 mg/dL [facility] Estimated Glomerular Filt Rate >60 [facility] Comment:Chronic Kidney Disea se: Estimated GFR < 60 mL/min/1.72x9Ehammv Kidney Disease: Estimated GFR < 15 mL/min/1.73m2 Glucose 93 60 - 115 mg/dL [facility] Calcium 8.3(L) 8.4 - 10.2 mg/dL [facility] Blood Venous blood specimen / Unknown 10/24/2024 9:59 AM EST 10/24/2024 11:05 AM EST Sammie Maharaj MD LAB BLOOD ORDERABLES Final Result [facility] [address] [place] [phone] * POCT glycosylated hemoglobin (Hgb A1c) [...] EST Narrative 09/19/2023 10:41 AM EST ? [facility] ? [address] ?[place] [address] ? Mammography Report ? Signed ? Patient: Aubrie Brewer ?MR#: M ?? [id number] ? : 1980 ?Acct:[id number] ? Age/Sex: 43 / F ?ADM Date: 11/28/23 ? Loc: HO.MAMMO ? Attending Dr: Sammie Maharaj MD ? Ordering Physician: Sammie Maharaj MD ?Results: 1N ?? egative ? Date of Service: 09/06/23 ?Follow Up: 1 Year From Orig ?? inal Mammogram ? Procedure(s): MM tomosynthesis screening BI ?? Accession Number(s): [id number] ? cc: Sammie Maharaj MD ? EXAMINATION: [...] ? DD/DT: 09/06/ 1014 ? TD/TT: ? Programmer Analyst: ? Procedure Note Kalee, Image - 09/19/2023 [facility] [address] [place] [address] Mammography Report Signed Patient: Aubrie BrewerMR#: [id number] : 1980Acct:[id number] Age/Sex: 43 / FADM Date: 09/06/23 Loc: LUIS ENRIQUE Attending Dr: Sammie Maharaj MD Ordering Physician: Sammie Maharaj MDResults: 1N egative Date of Service: 09/06/23Follow Up: 1 Year From Orig inal Mammogram Procedure(s): MM tomosynthesis screening BI Accession Number(s): [id number] cc: Sammie Maharaj MD EXAMINATION: MM SCREENING [...] in OV> 09/19/23 1037 DD/ 1014 TD/TT: Programmer Analyst: Sammie Maharaj MD IMG BI PROCEDURES Final Re sult * Hepatitis C Ab (07/28/2023 10:55 AM EDT) Hepatitis C Antibody Nonreactive Nonreactive [facility] Comment:Antibodies to HCV no t detected; does not exclude early acuteHCV infection. Blood 07/28/2023 10:5 5 AM EDT 07/28/2023 1:11 PM EDT Sammie Maharaj MD LAB BLOOD ORDERABLES Final Result Performing Organization Address [facility]/ZIP Co de Phone Number [facility] [address] [place] [phone] * HIV Ab/Ag ([facility]) (07/28/2023 10:55 AM EDT) HIV AB/AG Nonreactive Nonreactive [facility] Comment:HIV-1 p24 Ag and/or HIV-1/HIV-2 Ab not detected.A test result that is nonreactive does not exclude thepossibility of exposure to or infection with HIV-1 and/orHIV-2. Nonreactive results in this assay for individualswith prior exposure to HIV-1 and/or HIV-2 may be due toantigen and antibody levels that are below the limit ofdetection of this assay.The [employer] HIV Ag/Ab Combo assay result andsupplemental assay results should be interpreted inconjunction with the patient's clinical presentation,history and other laboratory results. If the results areinconsistent with clinical evidence, additional testing issuggested to confirm the result. 07/28/2023 10:5 5 AM EDT 07/28/2023 1:11 PM EDT Sammie Maharaj MD LAB BLOOD ORDERABLES Final Result Performing Organization Address [facility]/ZIP Co de Phone Number [facility] [address] [place] [phone] * Pap Smear (03/25/2021 12:00 AM EDT) Swab us Historical Provider LAB CYTOLOGY ORDERABLES F inal Result IMAGING from Last 3 Months or Most Recently Relevant to Health Maintenance Insurance [facility] Advance Directives Documents on File Type Date Recorded Patient Finance Executive Expl anation Advance Directives and Living Will 07/09/2024 Health Care Proxy 07/09/24 Care Teams Squirrel Man Relationship Specialty Start Date End Date Nicko, MD Sammie [address] [place] [phone] PCP - General Family Medicine 10/10/18 Loyda Glaser RN [address] [place] [address] Facing Slitter Family Medicine 10/31/23 Yasmin Ho MD [address] [place] [address] Gastroenterology 08/29/24 Manuel Carpenter PA [address] [address] Neurology 08/29/24 Paola Tolentino EDGE TRIMMER MECHANIC [address] [address] Endocrinology 10/24/24
--- OUTSIDE RECORDS SUMMARY | 2024-12-07 19:35 | XMS_ITS | Encounter Summary ---
Demographics Address [address] [facility] [address] [place] [address] Home Phone Mobile Phone Preferred Language Luxembourgish; Castilian Marital Status Single Pentecostalism Affiliation Unknown Race Unknown Ethnic Group Unknown Author Organization [facility] Address [address] [place] [address] Support Name Relationship Address Phone Orion Rubio Daughter 17 [facility] [address] [place] [address] Care Team Providers Care Boat Cleaner Name Role Phone Sammie Maharaj Primary Care Provider [phone]- [phone] Encounter Details Date Type Department Care Team (Late st Contact Info) Description 11/04/2023 Orders Only [facility] Interventional Radiology [address] [place] [address] Duncan Ragland MD [address] [place] [address] Social History Tobacco Use Types Packs/Day Years [...] Info) Description 01/08/2025 8:00 AM EDT Follow-Up [facility] Liver Transplant Services [address] [place] [address] Yasmin Ho MD [address] [place] [address] 03/22/2025 3:30 PM EDT Office Visit [facility] [address] [place] [address] Reservations Clerk: Natasha Rubalcava MD [address] [place] [address] 07/17/2025 8:00 AM EDT Office Visit [facility] [address] [place] [address] Reservations Clerk: Paola Vance NP [address] [place] [address] 08/06/2025 8:00 AM EDT Office Visit [facility] Neurology Clinic [address] [place] [address] Manuel Carpenter PA [address] [place] [address] documented as of this encounter Visit Diagnoses Not on filedocumented in this encounter Care Teams Boat Cleaner Relationship Specialty Start Date End Date Sammie Maharaj [address] [place] [address] PCP - General Family Medicine 05/15/18 documented as of this encounter
--- OUTSIDE RECORDS SUMMARY | 2024-12-07 19:35 | XMS_ITS | Encounter Summary ---
Demographics Address [address] [facility] [address] [place] [address] Home Phone Mobile Phone Preferred Language Bengali; Castilian Marital Status Single Cheondoism Affiliation Unknown Race Unknown Ethnic Group Unknown Author Organization [facility] Address [address] [place] [address] Support Name Relationship Address Phone Orion Rubio Daughter [address] [facility] [address] [place] [address] Care Team Providers Care Tallow Maker Name Role Phone Sammie Maharaj Primary Care Provider [phone]- [phone] Encounter Details Date Type Department Care Team (Late st Contact Info) Description 12/14/2023 Orders Only [facility] Interventional Radiology [address] [place] [address] Smith Manzo DO [address] [place] [address] Social History Tobacco Use Types Packs/Day Years [...] EDT Follow-Up [facility] Liver Transplant Services 55 [place] [address] Yasmin Ho MD 55 [place] [address] 03/22/2025 3:30 PM EDT Office Visit [facility] [address] [place] [address] Transportation Inspector: Natasha Rubalcava MD [address] [place] [address] 07/17/2025 8:00 AM EDT Office Visit [facility] [address] [place] [address] Transportation Inspector: Paola Vance NP [address] [place] [address] 08/06/2025 8:00 AM EDT Office Visit [facility] Neurology Clinic [address] [place] [address] Manuel Carpenter PA [address] [place] [address] documented as of this encounter Visit Diagnoses Not on filedocumented in this encounter Care Teams Tallow Maker Relationship Specialty Start Date End Date Sammie Maharaj [address] [place] [address] PCP - General Family Medicine 05/15/18 documented as of this encounter
--- OUTSIDE RECORDS SUMMARY | 2024-12-07 19:35 | XMS_ITS | Encounter Summary ---
Author Organization [employer] Address [address] [facility] [address] 7[address] [place] [address] Care Team Providers Care Informatics Specialist Name Role Phone Sammie Maharaj MD Primary Care Provider +1- [phone] Loyda Glaser RN Unavailable [phone] Yasmin Ho MD Unavailable Reason for Visit * Reason Comments Med Refill Encounter Details Date Type Department Care Team (Late st Contact Info) Description 10/24/2024 Refill [facility] [address] [place], [place] [phone] Sammie Maharaj MD 230 [place], [place] [phone] Microcytic anemia Social History Tobacco Use Types [...] Description 02/25/2025 9:00 AM EDT Office Visit [facility] [address] [place] [address] Mckay, Darshana, OD [address] [place] [address] documented as of this encounter Visit Diagnoses Diagnosis Microcytic anemia Unspecified iron deficiency anemia documented in this encounter Additional Health Concerns Assessment Noted Time PHQ-9 Depression Total Score: 0 10/24/19 25 9:33 AM EST documented as of this encounter Care Teams Informatics Specialist Relationship Specialty Start Date End Date Sammie Maharaj MD [address] [place] [address] PCP - General Family Medicine 10/10/18 Loyda Glaser RN [address] [place] [address] Cotton Stomper Family Medicine 10/31/23 Yasmin Ho MD [address] [place] [address] Gastroenterology 08/29/24 Manuel Carpenter PA U [address] [phone] Neurology 08/29/24 Paola Tolentino NP [address] [address] Endocrinology 10/24/24 documented as of this encounter
--- OUTSIDE RECORDS SUMMARY | 2024-12-07 19:35 | XMS_ITS | Encounter Summary ---
Author Organization [employer] [facility] Address [address] [facility] [address] 7[address] [place] [address] Care Team Providers Care Bond Analyst Name Role Phone Sammie Maharaj MD Primary Care Provider [phone]- [phone] Loyda Glaser RN Unavailable [phone] Yasmin Ho MD Unavailable [phone] Reason for Visit * Reason Onset Date Comments Nurse Triage 12/07/2024 Encounter Details Date Type Department Care Team (Late st Contact Info) Description 12/07/2024 Telephone [facility] [address] [place], [place] [phone] Sammie Maharaj MD [address] [place], [place] [phone] Nurse Triage Social History Tobacco Use Types [...] encounter Miscellaneous Notes * Telephone Encounter - Janette Irwin LPN - 12/07/2024 11:46 AM EST Triage call returned with BLS #[id number] Raya. Daughter does not require jewelsmith. Daughter called directly. Patient reports yellow crusting and patches on right ear. No noted odor no fever or sore throat,. No itching. Seen in office on 12/05 and facial swelling noted at that time. No nasal discharge and reports only when she blows her nose that at times there are streaks of blood. No humidifier in use an patient in need of one. No shortness of breath. Disposition reviewed and patienet and daughter in agreement with plan. [facility] home instead offered and referral arranged for today. Address and phone verified at time of call. Protocol Used: Ear - Discharge (Adult) Protocol-Based Disposition: See in Office or Video Visit Today Positive Triage Questions: * Diabetes mellitus or weak immune system (e.g., HIV positive, cancer chemo, splenectomy, organ transplant, chronic steroids) * Patient wants to be seen * All higher-acuity triage questions were negative Care Advice Discussed: * Reasons To Call Back - Earache occurs - Bad odor occurs - You become worse * Telephone Encounter - Josie Valdovinosgo - 12/07/2024 11:41 AM EST Symptoms: Face Swelling, Ear Discharge Outcome: Schedule a same-day appointment or talk to a nurse or provider today Reason: Caller denied all higher acuity questions The caller accepted this outcome. [phone] documented in this encounter Plan of Treatment Upcoming Encounters Date Type Department Care Team (Late st Contact Info) Description 02/25/2025 9:00 AM EDT Office Visit [facility] [address] [place] [address] Darshana Bashir, OD 230 [place] [address] documented as of this encounter Visit Diagnoses Not on filedocumented in this encounter Additional Health Concerns Assessment Noted Time PHQ-9 Depression Total Score: 0 10/24/19 9:33 AM EST documented as of this encounter Care Teams Bond Analyst Relationship Specialty Start Date End Date Sammie Maharaj MD 230 [place] [address] PCP - General Family Medicine 10/10/18 Loyda Glaser, RN [address] [place] [address] Quality Control Family Medicine 10/31/23 Yasmin Ho MD [address] [place] [address] Gastroenterology 08/29/24 Manuel Carpenter PA [facility] 55 [facility] [address] Neurology 08/29/24 Paola Tolentino NP [address] [address] Endocrinology 10/24/24 documented as of this encounter
--- OUTSIDE RECORDS SUMMARY | 2024-12-07 19:35 | XMS_ITS | Encounter Summary ---
Demographics Address 17 [facility] 2 [place] [address] Home Phone Mobile Phone Preferred Language Uzbek; Castilian Marital Status Single Moravian Affiliation Unknown Race Unknown Ethnic Group Unknown Author Organization [facility] Address [address] [place] [address] Support Name Relationship Address Phone Orion Rubio Daughter [address] [facility] [address] [place] [address] Care Team Providers Care Roll Carrier Name Role Phone Sammie Maharaj Primary Care Provider [phone]- [phone] Encounter Details Date Type Department Care Team (Late st Contact Info) Description 12/04/2024 Orders Only [facility] Transplant Department [address] [place] [address] Katy Boateng RN Cryptogenic cirrhosis (CMS/HCC) (HCC) (Primary Dx); Liver disease Social History Tobacco Use Types Packs/Day Years [...] Info) Description 01/08/2025 8:00 AM EDT Follow-Up [facility] Liver Transplant Services [address] [place] [address] Yasmin Ho MD 55 [place] [address] 03/22/2025 3:30 PM EDT Office Visit [facility] Diabetes Clinic [address] [place] [address] Multimedia Technician: Natasha Rubalcava MD 55 [place] [address] 07/17/2025 8:00 AM EDT Office Visit [facility] [address] [place] [address] Multimedia Technician: Paola Vance NP [address] [place] [address] 08/06/2025 8:00 AM EDT Office Visit [facility] Neurology Clinic [address] [place] [address] Manuel Carpenter PA [address] [place] [address] Scheduled Orders Name Type Priority Associated Diagnoses Orde r Schedule Protime-INR Lab Routine Cryptogenic cirrhosis (CMS/HCC) (HCC) Liver disease Every 3 weeks for 12 Occurrences starting 12/04/2024 until 06/02/2025 AFP Tumor Marker Lab Routine Cryptogenic cirrhosis (CMS/HCC) (HCC) Liver disease Expected: 12/04/2024, Expires: 12/04/2025 Comprehensive Metabolic Panel Lab Routine Cryptogenic cirrhosis (CMS/HCC) (HCC) Liver disease Every 3 weeks for 12 Occurrences starting 12/04/2024 until 06/02/2025 CBC Auto Differential Lab Routine Cryptogenic cirrhosis (CMS/HCC) (HCC) Liver disease Every 3 weeks for 12 Occurrences starting 12/04/2024 until 06/02/2025 documented as of this encounter Visit Diagnoses Diagnosis 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
--- OUTSIDE RECORDS SUMMARY | 2024-12-07 19:35 | XMS_ITS | Encounter Summary ---
Demographics Address [address] [facility] [address] [place] [address] Home Phone Mobile Phone Preferred Language Georgian; Castilian Marital Status Single Shinto Affiliation Unknown Race Unknown Ethnic Group Unknown Author Organization [facility] Address [address] [place] [address] Support Name Relationship Address Phone Orion Rubio Daughter [address] [facility] [address] [place] [address] Care Team Providers Care Publications Sales Representative Name Role Phone Sammie Maharaj Primary Care Provider [phone] Encounter Details Date Type Department Care Team (Late st Contact Info) Description 10/27/2023 Orders Only [facility] Interventional Radiology [address] [place] [address] Enzo Conner MD [address] [place] [address] Social History Tobacco Use Types Packs/Day Years [...] Info) Description 01/08/2025 8:00 AM EDT Follow-Up [facility] Liver Transplant Services [address] [place] [address] Yasmin Ho MD [address] [place] [address] 03/22/2025 3:30 PM EDT Office Visit [facility] [address] [place] [address] Personal Clothing Laundry Aide: Natasha Rubalcava MD [address] [place] [address] 07/17/2025 8:00 AM EDT Office Visit [facility] [address] [place] [address] Personal Clothing Laundry Aide: Paola Vance SERVICE SPECIALIST [address] [place] [address] 08/06/2025 8:00 AM EDT Office Visit [facility] Neurology Clinic [address] [place] [address] Manuel Carpenter PA [address] [place] [address] documented as of this encounter Visit Diagnoses Not on filedocumented in this encounter Care Teams Publications Sales Representative Relationship Specialty Start Date End Date Sammie Maharaj: [phone] [address] [place] [address] PCP - General Family Medicine 05/15/18 documented as of this encounter
--- OUTSIDE RECORDS SUMMARY | 2024-12-07 19:35 | XMS_ITS | Encounter Summary ---
Author Organization [employer] Address [address] [facility] [address] 7[address] [place] [address] Care Team Providers Care Electric Meter Repairer Helper Name Role Phone [place], Sammie JOHNSON Primary Care Provider [phone]- [phone] Loyda Glaser RN Unavailable [phone] Yasmin Ho MD Unavailable [phone] Reason for Visit * Reason Comments Med Refill Encounter Details Date Type Department Care Team (Late st Contact Info) Description 11/18/2023 Refill [facility] 230 [place] [address] Tara Carlisle, DOMENICO Tinea unguium Social History [...] 9:00 AM EDT Office Visit [facility] OPT[facility] [address] [place] [address] Mckay, Darshana, OD 230 [place] [address] documented as of this encounter Visit Diagnoses Diagnosis Tinea unguium Dermatophytosis of nail documented in this encounter Additional Health Concerns Assessment Noted Time PHQ-9 Depression Total Score: 0 07/28/20 9:42 AM EDT documented as of this encounter Care Teams Electric Meter Repairer Helper Relationship Specialty Start Date End Date Sammie Maharaj MD [address] [place] [address] PCP - General Family Medicine 10/10/18 Loyda Glaser RN [address] [place] [address] Jewel Supervisor Family Medicine 10/31/23 Yasmin Ho MD [address] [place] [address] Gastroenterology 08/29/24 Manuel Carpenter PA [facility] 55 Counts include 234 beds at the [facility] [address] Neurology 08/29/24 Paola Tolentino, FILLER FEEDER [address] [address] Endocrinology 10/24/24 documented as of this encounter
--- OUTSIDE RECORDS SUMMARY | 2024-12-07 19:35 | XMS_ITS | Encounter Summary ---
Author Organization [employer] Address [address] 7[address] [place] [address] Care Team Providers Care Road Inspector Name Role Phone [place], Sammie JOHNSON Primary Care Provider [phone]- [phone] Loyda Glaser RN Unavailable [phone] Yasmin Ho MD Unavailable [phone] Encounter Details Date Type Department Care Team (Late st Contact Info) Description 12/05/2024 Telephone [facility] MEDICINE [address] [place] [address] Uma Jiménez, ERVIN Social History Tobacco Use Types Packs/Day Years [...] encounter Miscellaneous Notes * Telephone Encounter - Uma Jiménez RN - 12/05/2024 2:42 PM EST Message received from Dr. Dubose stating Please call patient and in 2 days and check if swelling or erythema has improved, see if she needs to return to clinic or can continue to follow-up with PCP . Pt called this morning c/o of facial swelling, headaches and was transferred to speak with triage nurse. Triage nurse recommended pt to come to [facility] to be evaluated which pt agreed to. Pt came inand was evaluated by a provider at the [facility] today. Pt is to f/u with PCP office as needed. * Telephone Encounter - Uma Jiménez RN - 12/05/2024 2:42 PM EST ----- Message from Rocio Bell MD sent at 12/03/2024 11:56 AM EST ----- Please call patient and in 2 days and check if swelling or erythema has improved, see if she needs to return to clinic or can continue to follow-up with PCP documented in this encounter Plan of Treatment Upcoming Encounters Date Type Department Care Team (Late st Contact Info) Description 02/25/2025 9:00 AM EDT Office Visit [facility] OPTOMETRY [address] [place] [address] [id number] Darshana Bashir, OD [address] [place] [address] documented as of this encounter Visit Diagnoses Not on filedocumented in this encounter Additional Health Concerns Assessment Noted Time PHQ-9 Depression Total Score: 0 10/24/19 9:33 AM EST documented as of this encounter Care Teams Road Inspector Relationship Specialty Start Date End Date Sammie Maharaj MD [address] [place] [address] PCP - General Family Medicine 10/10/18 Loyda Glaser, ERVIN [address] [place] [address] Mine Inspector Family Medicine 10/31/23 Yasmin Ho MD [address] [place] [address] Gastroenterology 08/29/24 Manuel Carpenter PA [facility] 55 [facility] [address] Neurology 08/29/24 Paola Tolentino, HEBERT [address] [address] Endocrinology 10/24/24 documented as of this encounter
--- OUTSIDE RECORDS SUMMARY | 2024-12-07 19:35 | XMS_ITS | Encounter Summary ---
Demographics Address [address] [facility] [address] [place] [address] Home Phone Mobile Phone Preferred Language Serbian; Castilian Marital Status Single Presybeterian Affiliation Unknown Race Unknown Ethnic Group Unknown Author Organization [facility] Address [address] [place] [address] Support Name Relationship Address Phone Orion Rubio Daughter [address] [facility] [address] [place] [address] Care Team Providers Care Oleomargarine Maker Name Role Phone Sammie Maharaj Primary Care Provider [phone] Encounter Details Date Type Department Care Team (Late st Contact Info) Description 12/04/2024 Telephone [facility] Transplant Department [address] [place] [address] Katy Boateng RN Social History Tobacco Use [...] Telephone Encounter - Katy Boateng RN - 12/04/2024 10:47 AM EST Spoke to patient's daughter, will get labs at [facility] next Tuesday (or sooner if there for another provider) documented in this encounter Plan of Treatment Upcoming Encounters Date Type Department Care Team (Late st Contact Info) Description 01/08/2025 8:00 AM EDT Follow-Up [facility] Liver Transplant Services [address] [place] [address] Yasmin Ho MD [address] [place] [address] 03/22/2025 3:30 PM EDT Office Visit [facility] Diabetes Clinic [address] [place] [address] Reservoir Engineer: Natasha Rubalcava MD [address] [place] [address] 07/17/2025 8:00 AM EDT Office Visit [facility] Diabetes [facility] [address] [place] [address] Reservoir Engineer: Paola Vance REDUCING SYSTEM OPERATOR [address] [place] [address] 08/06/2025 8:00 AM EDT Office Visit [facility] Neurology Clinic [address] [place] [address] Manuel Carpenter PA [address] [place] [address] documented as of this encounter Visit Diagnoses Not on filedocumented in this encounter Care Teams Oleomargarine Maker Relationship Specialty Start Date End Date Sammie Maharaj: [id number] [address] [place] [address] PCP - General Family Medicine 05/15/18 documented as of this encounter
--- OUTSIDE RECORDS SUMMARY | 2024-12-07 19:35 | XMS_ITS ---
Demographics Address [address] [facility] [address] [place] [address] Home Phone Mobile Phone Preferred Language Cambodian; Castilian Marital Status Single Sikhism Affiliation Unknown Race Unknown Ethnic Group Unknown Author Organization [facility] Address [address] [place] [address] Support Name Relationship Address Phone Orion Rubio Daughter [address] [facility] [address] [place] [address] Care Team Providers Care Almond Sorter Name Role Phone Kenney Maharajhanie Sujit Primary Care Provider [phone] Transplant Episode Liver Candidate [facility] ([place], [place]) - [facility] waitlisted on 12/30/2023 Marked as Active on 12/30/2023 Liver CoordinatorKaty Boateng RN Phone: N/A Fax: N/A Email: N/A Scores Score Value Updated Expires Exceptions/[place] sons CPRA Not available UNOS MELD 18 09/24/2024 12/23/2024 MELD (Calc) 18 09/11/2024 Yuhaaviatam Organ Diagnosis Organ Primary Contributory Liver Cirrhosis: Cryptogenic (Idiopath ic) Cirrhosis: Fatty Liver (YORK) Care Team Name Role Phone Fax Email Katy Boateng RN Liver Coordinator N/A N/A N/A Yasmin Ho MD Senior It Specialist [phone] Man [email or web address] Marilee Alexander NP Referring Physician [phone] [email or web address] Events Pre-Transplant Referred: 09/06/2023 Evaluation began: 10/21/2023 Committee: 12/15/2023 Center waitlisted: 12/30/2023 Appointments (11/06/2024 - 01/04/2025) When With Visit Type Description 11/14/2024 Transplant - [facility] Follow Up
--- OUTSIDE RECORDS SUMMARY | 2024-12-07 19:35 | XMS_ITS | Encounter Summary ---
Author Organization [facility] Address [address] [facility] 7t [place] [address] Care Team Providers Care Senior Recruitment Consultant Name Role Phone Sammie Maharaj MD Primary Care Provider Loyda Glaser RN Unavailable [phone] Yasmin Ho MD Unavailable [phone] Encounter Details Date Type Department Care Team (Late Contact Info) Description 05/16/2023 Orders Only [facility] CHC MED & PEDS [address] [place] [address] Emily Marcial LPN Social History Tobacco Use [...] Description 02/25/2025 9:00 AM EDT Office Visit [facility] OPTOMETRY [address] [place] [address] Darshana Bashir, OD 230 [place], [place] [phone] documented as of this encounter Visit Diagnoses Not on filedocumented in this encounter Care Teams Senior Recruitment Consultant Relationship Specialty Start Date End Date Sammie Maharaj MD 230 [place] [address] PCP - General Family Medicine 10/10/18 Loyda Glaser, RN 230 [place] [address] Shirt Line Operator Family Medicine 10/31/23 Yasmin Ho MD 55 [place] [address] Gastroenterology 08/29/24 Manuel Carpenter PA [facility] 55 [facility] [address] Neurology 08/29/24 Paola Tolentino, GRADUATE RN [address] [address] Endocrinology 10/24/24 documented as of this encounter
--- OUTSIDE RECORDS SUMMARY | 2024-12-07 19:35 | XMS_ITS | Encounter Summary ---
Author Organization [employer] Address [address] [address] 7t [place] [address] Care Team Providers Care Global Supply Chain Director Name Role Phone [place], Sammie JOHNSON Primary Care Provider [phone] Loyda Glaser RN Unavailable [phone] Yasmin Ho MD Unavailable [phone] Encounter Details Date Type Department Care Team (Late st Contact Info) Description 12/04/2024 Telephone [facility] 230 [place] [address] Rocio Bell MD [address] [place], [place] [phone] Social History Tobacco Use Types Packs/Day Years [...] encounter Miscellaneous Notes * Telephone Encounter - Isabella Christiansen RN - 12/04/2024 7:55 PM EST Addressed on other encounter from 12/03/24. Postponed other encounter/message to 12/10/24 to check if pt got labs done. -- Today's message from [facility] transplant clinic reviewed. Please call patient and tell her that they want to fu labs next week, orders are in place. Please fax labs or let Katy Boateng RN at the clinic know, they can check them thru care everywhere (review OV note at [facility] and result management for yesterday's labs if needed) documented in this encounter Plan of Treatment Upcoming Encounters Date Type Department Care Team (Late st Contact Info) Description 02/25/2025 9:00 AM EDT Office Visit [facility] OPTOMETRY [address] [place] [address] Darshana Bashir, OD 230 [place] [address] documented as of this encounter Visit Diagnoses Not on filedocumented in this encounter Additional Health Concerns Assessment Noted Time PHQ-9 Depression Total Score: 0 10/24/19 9:33 AM EST documented as of this encounter Care Teams Global Supply Chain Director Relationship Specialty Start Date End Date Sammie Maharaj MD [address] [place] [address] PCP - General Family Medicine 10/10/18 Loyda Glaser, RN [address] [place] [address] Missile Technician Family Medicine 10/31/23 Yasmin Ho MD 55 [place] [address] Gastroenterology 08/29/24 Manuel Carpenter PA [facility] 55 [facility] [address] Neurology 08/29/24 Paola Tolentino, CODING TECHNICIAN [address] [address] Endocrinology 10/24/24 documented as of this encounter
--- OUTSIDE RECORDS SUMMARY | 2024-12-07 19:35 | XMS_ITS | Encounter Summary ---
Author Organization [employer] Address 75 [facility] 7t [place] [address] Care Team Providers Care Stone Engraver Name Role Phone [place], Sammie JOHNSON Primary Care Provider [phone]- [phone] Loyda Glaser RN Unavailable [phone] Yasmin Ho MD Unavailable [phone] Reason for Visit * Reason Onset Date Comments No Show 04/21/2023 Encounter Details Date Type Department Care Team (Late st Contact Info) Description 04/21/2023 Telephone [facility] MEDICINE 230 [place] [address] Hansa Chung RN 230 [place] [address] No Show Social History Tobacco Use Types [...] and declined as she is traveling to [facility] tomorrow morning and whill not be back [...] 04/21/2023 12:30 PM EDT Call received from [facility] Labs, regarding critical lab result. Pt glucose [...] Description 02/25/2025 9:00 AM EDT Office Visit [facility] OPTOMETRY [address] [place] [address] Darshana Bashir, OD 230 [place] [address] documented as of this encounter Visit Diagnoses Not on filedocumented in this encounter Care Teams Stone Engraver Relationship Specialty Start Date End Date Sammie Maharaj MD 230 [place] [address] PCP - General Family Medicine 10/10/18 Loyda Glaser, ERVIN [address] [place] [address] Coupon Collection Clerk Family Medicine 10/31/23 Yasmin Ho MD [address] [place] [address] Gastroenterology 08/29/24 Manuel Carpenter PA [address] [address] Neurology 08/29/24 Paola Tolentino, MAMMAL KEEPER [address] [address] Endocrinology 10/24/24 documented as of this encounter
--- OUTSIDE RECORDS SUMMARY | 2024-12-07 19:35 | XMS_ITS | Encounter Summary ---
Author Organization [employer] [facility] Address [address] [facility] 7t [place] [address] Care Team Providers Care Classroom Teacher Name Role Phone Sammie Maharaj MD Primary Care Provider [phone] Loyda Glaser RN Unavailable [phone] Yasmin Ho MD Unavailable [phone] Reason for Visit * Reason Onset Date Comments Nurse Triage 03/22/2023 Encounter Details Date Type Department Care Team (Late st Contact Info) Description 03/22/2023 Telephone [facility] MEDICINE 230 [place] [address] Sammie Maharaj MD 230 [place], [place] [phone] Nurse Triage Social History Tobacco Use Types [...] 03/22/2023 2:01 PM EDT Triage call with [employer] Legal Manager [place] [id number] Pt didn't answer left message to call [facility] triage line at [phone]. Triage call with [employer] Legal Manager [place] [id number] Pt answered, Pt wasn't able to say [...] Description 02/25/2025 9:00 AM EDT Office Visit [facility] OPTOMETRY [address] [place] [address] MckayDarshana coppola, OD 230 [place] [address] documented as of this encounter Visit Diagnoses Not on filedocumented in this encounter Care Teams Classroom Teacher Relationship Specialty Start Date End Date Sammie Maharaj MD [address] [place] [address] PCP - General Family Medicine 10/10/18 Loyda Glaser RN [address] [place] [address] Acid Supervisor Family Medicine 10/31/23 Yasmin Ho MD [address] [place] [address] Gastroenterology 08/29/24 Manuel Carpenter PA [address] [address] Neurology 08/29/24 Paola Tolentino NP [address] [address] Endocrinology 10/24/24 documented as of this encounter
--- OUTSIDE RECORDS SUMMARY | 2024-12-07 19:35 | XMS_ITS | Encounter Summary ---
Demographics Address [address] [facility] [address] [place] [address] Home Phone Mobile Phone Preferred Language Georgian; Castilian Marital Status Single Zoroastrian Affiliation Unknown Race Unknown Ethnic Group Unknown Author Organization [facility] Address [address] [place] [address] Support Name Relationship Address Phone Orion Rubio Daughter [address] [facility] [address] [place] [address] Care Team Providers Care Track Welder Name Role Phone Sammie Maharaj Primary Care Provider [phone] Encounter Details Date Type Department Care Team (Late st Contact Info) Description 11/03/2023 Orders Only [facility] Interventional Radiology [address] [place] [address] Duncan Ragland MD [address] [place] [address] Social History Tobacco Use Types Packs/Day Years [...] Info) Description 01/08/2025 8:00 AM EDT Follow-Up [facility] Liver Transplant Services [address] [place] [address] Yasmin Ho MD [address] [place] [address] 03/22/2025 3:30 PM EDT Office Visit [facility] Diabetes Clinic [address] [place] [address] [place] Seamer: Natasha Rubalcava MD [address] [place] [address] 07/17/2025 8:00 AM EDT Office Visit [facility] Diabetes Clinic [address] [place] [address] [place] Seamer: Paola Vance NP [address] [place] [address] 08/06/2025 8:00 AM EDT Office Visit [facility] Neurology Clinic [address] [place] [address] Manuel Carpenter PA [address] [place] [address] documented as of this encounter Visit Diagnoses Not on filedocumented in this encounter Care Teams Track Welder Relationship Specialty Start Date End Date Sammie Maharaj [address] [place] [address] PCP - General Family Medicine 05/15/18 documented as of this encounter
--- OUTSIDE RECORDS SUMMARY | 2024-12-07 19:35 | XMS_ITS | Encounter Summary ---
Author Organization [email or web address] Address [address] [facility] [address] 7t [place] [address] Care Team Providers Care Cardiovascular Technologist Name Role Phone [place], Sammie JOHNSON Primary Care Provider [phone] Loyda Glaser RN Unavailable [phone] Yasmin Ho MD Unavailable [phone] Reason for Visit * Reason Onset Date Comments Results 12/03/2024 Rocio belle MD12/03/2024 5:04 PM EST Labs showed mild worsening of bili's and alk phos, rule out obstructive fissures or may be autoimmune hepatitis. Her inflammatory markers are higher as well. She ideally should be seen by inspector and clerk now or run these labs by rubber press tender, I spoke with Maria L at [facility] hepatology/transplant clinic and unfortunately no one was available at the office at the time. She will send this information to the covering providers and have then get back to us, Encounter Details Date Type Department Care Team (Late st Contact Info) Description 12/03/2024 Telephone [facility] MEDICINE [address] [place] [address] [phone] Rosaura Almeida, ERVIN Results (Rocio Bell MD/12/03/2024 5:04 PM EST /Labs showed mild worsening of bili's and alk phos, rule out obstructive fissures or may be autoimmune hepatitis. /Her inflammatory markers are higher as well. She ideally should be seen by inspector and clerk now or run these labs by rubber press tender, /I spoke with Maria L at [facility] hepatology/transplant clinic and unfortunately no one was available at the office at the time. /She will send this information to the covering providers and have then get back to us, ) Social History Tobacco Use Types Packs/Day Years [...] Encounter - Isabella Christiansen RN - 12/04/2024 6:00 PM EST Please see other documentation from 12/04/[address] Bell and from [facility]. Dr Bell spoke with transplant clinic who will follow up with pt, they ordered labs today 12/04/[address] Bell. Plan (from notes) is for pt to get labs on Tuesday12/10/24. From Care Everywhere, ERVIN Burns at Transplant clinic called pt's daughter today and informed her of plan to get labs drawn 12/10/24. Will task reminder for nurses to check to make sure pt had labs drawn on 12/10/24. * Telephone Encounter - Rosaura Almeida RN - 12/03/2024 8:00 PM EST Lab results faxed to [facility] Liver Transplant Providers @[phone] for review and advise per note from [facility] provider today. Follow up TC tomorrow 12/04/24 to [facility] @ [phone] Receipt confirmed And PCP Nicko for plan of care [facility] Liver Transplant Services [address] [place] [address] Yasmin Ho MD [address] [place], [place] [phone] ----- Message from Nurse Megan Jacob sent at 12/03/2024 5:22 PM EST ----- ----- Message ----- From: Rocio Bell MD Sent: 12/03/2024 5:04 PM EST To: Sammie Maharaj MD; # Labs showed mild worsening of bili's and alk phos, rule out obstructive fissures or may be autoimmune hepatitis. Her inflammatory markers are higher as well. She ideally should be seen by inspector and clerk now or run these labs by rubber press tender, I spoke with Maria L at [facility] hepatology/transplant clinic and unfortunately no one was available at the office at the time. She [facility] and have then get back to us, either the PCP, me or directed to the patient for additional POC. Please reach out to PCP or me for additional POC tomorrow afternoon. Follow-up with patient tomorrow and decide additional POC * Telephone Encounter - Rosaura Almeida RN - 12/03/2024 7:08 PM EST Lab results faxed to [facility] Liver Transplant Providers @[phone] for review and advise per note from [facility] provider today. Follow up TC tomorrow 12/04/24 to [facility] @ [phone] Receipt confirmed And PCP [facility] for plan of care [facility] Liver Transplant Services [address] [place] [address] Yasmin Ho MD [address] [place] [address] ----- Message from Nurse Megan Jacob sent at 12/03/2024 5:22 PM EST ----- ----- Message ----- From: Rocio Bell MD Sent: 12/03/2024 5:04 PM EST To: Sammie Maharaj MD; # Labs showed mild worsening of bili's and alk phos, rule out obstructive fissures or may be autoimmune hepatitis. Her inflammatory markers are higher as well. She ideally should be seen by inspector and clerk now or run these labs by rubber press tender, I spoke with Maria L at [facility] hepatology/transplant clinic and unfortunately no one was available at the office at the time. She will send this information to the c overing providers and have then get back to us, either the PCP, me or directed to the patient for additional POC. Please reach out to PCP or me for additional POC tomorrow afternoon. Follow-up with patient tomorrow and decide additional POC documented in this encounter Plan of Treatment Upcoming Encounters Date Type Department Care Team (Late st Contact Info) Description 02/25/2025 9:00 AM EDT Office Visit [facility] OPTOMETRY [address] [place] [address] Darshana Bashir, OD [address] [place] [address] documented as of this encounter Visit Diagnoses Not on filedocumented in this encounter Additional Health Concerns Assessment Noted Time PHQ-9 Depression Total Score: 0 10/24/19 25 9:33 AM EST documented as of this encounter Care Teams Cardiovascular Technologist Relationship Specialty Start Date End Date Sammie Maharaj MD 230 [place] [address] PCP - General Family Medicine 10/10/18 Loyda Glaser RN [address] [place] [address] Wire Galvanizer Family Medicine 10/31/23 Yasmin Ho MD [address] [place] [address] Gastroenterology 08/29/24 Manuel Carpenter PA [facility] 55 [facility] [address] Neurology 08/29/24 Paola Tolentino NP [address] [address] Endocrinology 10/24/24 documented as of this encounter
--- OUTSIDE RECORDS SUMMARY | 2024-12-07 19:36 | XMS_ITS | Encounter Summary ---
Author Organization [facility] Address [address] [facility] [address] 7t [place] [address] Care Team Providers Care Practice Support Specialist Name Role Phone Sammie Maharaj MD Primary Care Provider [phone] Loyda Glaser RN Unavailable [phone] Yasmin Ho MD Unavailable Reason for Visit * Reason Onset Date Comments Appointment Request 10/20/2023 Encounter Details Date Type Department Care Team ([facility] st Contact Info) Description 10/20/2023 Telephone [facility] MEDICINE [address] [place] [address] Sammie Maharaj MD [address] [place], [place] [phone] Appointment Request Social History Tobacco Use Types [...] and reschedule appt for 11/03/2023 @ 9:30 parts data writer did cancel per patients request documented in this encounter Plan of Treatment Upcoming Encounters Date Type Department Care Team (Late st Contact Info) Description 02/25/2025 9:00 AM EDT Office Visit [facility] OPTOMETRY [address] [place] [address] Mckay, Darshana, OD 230 [place] [address] documented as of this encounter Visit Diagnoses Not on filedocumented in this encounter Additional Health Concerns Assessment Noted Time PHQ-9 Depression Total Score: 0 07/28/20 23 9:42 AM EDT documented as of this encounter Care Teams Practice Support Specialist Relationship Specialty Start Date End Date Sammie Maharaj MD [address] [place] [address] PCP - General Family Medicine 10/10/18 Loyda Glaser RN [address] [place] [address] Director Bioinformatics Family Medicine 10/31/23 Yasmin Ho MD [address] [place] [address] [phone] Gastroenterology 08/29/24 Manuel Carpenter PA [address] [phone] Neurology 08/29/24 Paola Tolentino, PASTE MAKER [address] [address] Endocrinology 10/24/24 documented as of this encounter
--- OUTSIDE RECORDS SUMMARY | 2024-12-07 19:36 | XMS_ITS | Encounter Summary ---
Author Organization [employer] Address [address] [place] [address] Care Team Providers Care Doctor Of Naturopathic Medicine Name Role Phone Sammie Maharaj MD Primary Care Provider [phone] Loyda Glaser RN Unavailable [phone] Yasmin oH MD Unavailable Reason for Visit * Reason Comments Med Refill Encounter Details Date Type Department Care Team (Late st Contact Info) Description 10/25/2023 Refill [facility] [address] [place], [place] [phone] Sammie Maharaj MD [address], [place] [id number] Microcytic anemia Social History Tobacco Use Types [...] Description 02/25/2025 9:00 AM EDT Office Visit [facility] OPTOM[facility] [address] [place], [place] [phone] Mckay, Darshana, OD [address] [place] [address] documented as of this encounter Visit Diagnoses Diagnosis Microcytic anemia Unspecified iron deficiency anemia documented in this encounter Additional Health Concerns Assessment Noted Time PHQ-9 Depression Total Score: 0 07/28/20 23 9:42 AM EDT documented as of this encounter Care Teams Doctor Of Naturopathic Medicine Relationship Specialty Start Date End Date Sammie Maharaj MD [address] [place] [address] PCP - General Family Medicine 10/10/18 Loyda Glaser RN [address] [place] [address] [employer] Super[employer] Family Medicine 10/31/23 Yasmin Ho MD [address] [place] [id number] Gastroenterology 08/29/24 Manuel Carpenter PA [address] [address] Neurology 08/29/24 Paola Tolentino NP [address] [address] Endocrinology 10/24/24 documented as of this encounter
[2024-12-07 19:40] LABS: Ammonia 66 umol/L (13-55); INTERNATIONAL NORM RATIO 1.7 (0.9-1.1); Prothrombin Time 19.7 SEC (10.9-12.4)
[2024-12-07 19:56] LABS: Alanine Aminotransferase 103 U/L (0-31); Albumin Level 2.6 g/dL (3.5-5.0); Anion Gap 13 (12-20); Aspartate Amino Transferase 108 U/L (5-31); Bilirubin Direct 7.2 mg/dL (0.0-0.5); Bilirubin Total 8.9 mg/dL (0.0-1.0); Blood Urea Nitrogen 15 mg/dL (9-16); Calcium 8.2 mg/dL (8.4-10.2); Carbon Dioxide 21 mmol/L (22-29); Chloride 104 mmol/L (96-108); Creatinine Clr Calc Pharmacy 79.5; Estimated Glomerular Filt Rate > 60; Glucose Random 311 mg/dL (60-115); Magnesium 1.9 mg/dL (1.6-2.6); Potassium 3.5 mmol/L (3.3-5.1); Sodium 134 mmol/L (135-145)
[2024-12-07 20:12] LABS: Erythrocyte Sedimentation Rate 73 MM/HR (0-20)
[2024-12-07 20:55] LABS: Alkaline Phosphatase 831 U/L (39-117)
[2024-12-07 22:37] VITALS: BP 99/57; PULSE 91; RESP 18; TEMP 36.4; O2SAT 100
--- NOTE | 2024-12-08 01:28 | PC.NURSE ---
#20g iv obtained and 1st set blood cultures sent to lab by this RN. PCT obtaining second set of cultures now.
[2024-12-08] MEDS: cefEPime HCl/D5W 2 GM/50 ML PIGGYBACK IV ×3 (01:31→18:34)
[2024-12-08 01:36] LABS: Lactic Acid 1.6 mmol/L (0.5-2.0)
--- NOTE | 2024-12-08 01:52 | PM.IMHP ---
History of Present Illness Date of Service: 12/08/24 Chief Complaint: Ear pain This is a 44-year-old female with pertinent history of cirrhosis with portal hypertension and varices, insulin-dependent diabetes mellitus, history of CVA, mood disorder, seizure disorder who presents to the emergency department for evaluation of ear pain and redness. Patient states her symptoms started 1 day prior to presentation. She initially noticed right ear erythema which is associated with swelling, pain and tenderness. Subsequently the left ear turned red. This has never happened before. No precipitating factor. Patient states she has had yellow eyes and yellow skin for years now. Denies abdominal distention or pain. No hematemesis, melena, hematochezia. No fever, chills, nausea, vomiting, chest pain, palpitations, shortness of breath, changes in urinary or bowel habits In the emergency department, patient was initiated on IV cefepime. Review of Systems Constitutional: Constitutional: Reports no additional constitutional complaints Cardiovascular: Cardiovascular: Reports no additional cardiovascular complaints Respiratory: Respiratory: Reports no additional respiratory complaints Gastrointestinal: Gastrointestinal: Reports no additional gastrointestinal complaints Genitourinary: Genitourinary: Reports no additional female genitourinary complaints [facility] Medical History Memory loss Depression Portal hypertension Esophageal varices with bleeding Seizure disorder Left sided cerebral hemisphere cerebrovascular accident (CVA) Chronic nonalcoholic liver disease Pertinent family history: No Family history of early CAD Social History Advance Directives: No Advance Directives Information Provided: No Do you have a plan to hurt others: No Plan Meds Allergies Allergy/AdvReac Type Severity Reaction Status Date / Time latex [Latex] Allergy Mild RASH Verified 12/07/24 18:40 Physical Exam Vital Signs and Narrative: Vital Signs: Last Vital Signs Temp 97.6 F 12/07/24 22:37 Pulse 91 12/07/24 22:37 Resp 18 12/07/24 22:37 BP 99/57 L 12/07/24 22:37 Pulse Ox 100 12/07/24 22:37 O2 Del Method Room Air 12/07/24 22:37 BMI result Body Mass Index 24.6 Middle-aged female lying in bed in no distress Bilateral pinnae with tenderness and erythema ; scleral icterus present Regular rate and rhythm, S1-S2 heard Regular breath sounds bilaterally, no wheezing or crackles appreciated Abdomen soft nontender, no guarding, no rigidity Patient is awake, alert and oriented to self, place, time and person ; no focal motor deficit Psych: Normal mood No pedal edema Results Labs 12/07/24 19:25 12/07/24 19:25 Labs: Laboratory Results - last 24 hr 12/07/24 12/07/24 12/08/24 19:24 19:25 01:12 MCV 90.4 MCH 32.4 MCHC 35.8 H RDW 13.5 Plt Count 140 L MPV 12.4 H Immature Gran % (Auto) 2.8 H Neut % (Auto) 86.3 H Lymph % (Auto) 5.6 L [place] % (Auto) 4.9 Eos % (Auto) 0.1 Baso % (Auto) 0.3 Lymph # (Auto) 0.4 L [place] # (Auto) 0.4 Eos # (Auto) 0.0 Baso # (Auto) 0.0 Abs Immat Gran (auto) 0.21 H Absolute Neuts (auto) 6.6 Absolute Nucleated RBC 0.000 Nucleated RBC % (auto) 0.0 ESR 73 H PT 19.7 H D INR 1.7 H Anion Gap 13 Estim Creat Clear Calc 79.5 Estimated GFR > 60 Random Glucose 311 H Lactic Acid 1.6 Calcium 8.2 L Magnesium 1.9 Total Bilirubin 8.9 H Direct Bilirubin 7.2 H AST 108 H ALT 103 H Alkaline Phosphatase 831 H Ammonia 66 H C-Reactive Protein 17.40 H Total Protein 6.0 L Albumin 2.6 L Assessment and Plan (1) Perichondritis: Status: Acute Plan This is a 44-year-old female with pertinent history of cirrhosis with portal hypertension and varices, insulin-dependent diabetes mellitus, history of CVA, mood disorder, seizure disorder who presents to the emergency department for evaluation of ear pain and redness. #. Acute perichondritis: Will admit patient with IV cefepime due to extensive infection. No sepsis. Monitor for improvement #. Cirrhosis with portal hypertension and varices, compensated: Unclear etiology of cirrhosis. Daughter states it is genetic . 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 Continue home medications. #. Insulin-dependent diabetes mellitus with hyperglycemia: Initiating basal plus insulin regimen #. Thrombocytopenia due to cirrhosis #. History of CVA: ?not on aspirin or statin #. Mood disorder/seizure disorder: Continue home medications once med rec is complete Med rec pending DVT prophylaxis: Lovenox Full code Admit as inpatient and will require two night minimum hospital stay for IV antibiotics (as above), which is not possible in a lesser acute setting. Quality Stroke Does the patient have a stroke diagnosis?: No VTE Prior VTE?: No VTE Risk Level:: Medical - moderate - high VTE Device Contraindication: Treatment Not Indicated VTE Drug Contraindication: N/A - Med Ordered
[2024-12-08 02:18] VITALS: BP 114/66; PULSE 85; RESP 20; TEMP 36.7; O2SAT 100
--- NOTE | 2024-12-08 02:25 | PC.NURSE ---
pt states she already took her 10units lantus at home [employer]. takes at 7pm.
[2024-12-08] MEDS: Lactated Ringers 1,000 ML 999 ML IV (03:01)
[2024-12-08 04:57] LABS: MANUAL DIFF FLAG NO
[2024-12-08 05:02] LABS: Basophils Percent Auto 0.3 % (0-2); Eosinophils Absolute Auto 0.1 X10*3/uL (0.0-0.4); Eosinophils Percent Auto 1.2 % (0-4); Hematocrit 29.3 % (37.0-47.0); Hemoglobin 10.5 g/dl (12.0-16.0); Imm Gran Abs Auto 0.21 X10*3/uL (0.00-0.03); Imm Gran Pct Auto 3.5 % (0.0-0.4); Lymphocytes Absolute Auto 0.6 X10*3/uL (1.2-4.9); Lymphocytes Percent Auto 10.5 % (20-40); Mean Corpuscular HGB Conc 35.8 g/dl (31.0-35.0); Mean Corpuscular Volume 89.3 fL (80.0-98.0); Mean Platelet Volume 11.9 fL (9.4-12.3); Monocytes Absolute Auto 0.4 X10*3/uL (0.1-1.2); Neutrophils Absolute Auto 4.6 x10*3/uL (2.0-8.3); Neutrophils Percent Auto 77.5 % (45-73); Platelet Count 125 X10*3/uL (160-400); Red Blood Count 3.28 X10*6/uL (4.20-5.50); Red Cell Distribution Width 13.7 % (11.0-16.0)
[2024-12-08 05:41] LABS: Alanine Aminotransferase 91 U/L (0-31); Albumin Level 2.3 g/dL (3.5-5.0); Anion Gap 13 (12-20); Aspartate Amino Transferase 92 U/L (5-31); Blood Urea Nitrogen 14 mg/dL (9-16); Carbon Dioxide 19 mmol/L (22-29); Chloride 108 mmol/L (96-108); Creatinine Clr Calc Pharmacy 108.9; Estimated Glomerular Filt Rate > 60; Glucose Random 200 mg/dL (60-115); Potassium 2.7 mmol/L (3.3-5.1); Sodium 137 mmol/L (135-145); Total Protein 5.5 g/dL (6.5-8.0)
[2024-12-08 05:46] LABS: Alkaline Phosphatase 765 U/L (39-117)
--- NOTE | 2024-12-08 05:59 | PC.NURSE ---
MD mae made aware of potassium level.
[2024-12-08] MEDS: Potassium Chloride Packet 20 MEQ PACKET 40 MEQ PO (06:49)
[2024-12-08] MEDS: Potassium Chloride ER 20 MEQ TAB.ER.PRT PO (06:49)
--- NOTE | 2024-12-08 10:39 | PC.NURSE ---
maria luisa sister in law [phone]
[2024-12-08] MEDS: 0.9 % Sodium Chloride Flush 3 ML SYRINGE IVFLUSH ×2 (10:40→20:36)
[2024-12-08 11:29] VITALS: BP 118/61; PULSE 93; RESP 18; TEMP 37.1; O2SAT 100
[2024-12-08 11:30] VITALS: BMI 25.8
[2024-12-08 11:41] LABS: Glucose, Whole Blood 158 mg/dL (60-115)
--- NOTE | 2024-12-08 12:16 | PM.EVENT ---
Event Note Date of Service: 12/08/24 Event Note: This is a 44-year-old female with pertinent history of cirrhosis with portal hypertension and varices, insulin-dependent diabetes mellitus, history of CVA, mood disorder, seizure disorder who presents to the emergency department for evaluation of ear pain and redness. Acute perichondritis IV cefepime due to extensive infection. No sepsis. Monitor for improvement Cirrhosis with portal hypertension and varices, compensated Unclear etiology of cirrhosis. Daughter states it is genetic . 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 Continue home medications. Insulin-dependent diabetes mellitus with hyperglycemia Initiating basal plus insulin regimen Thrombocytopenia due to cirrhosis History of CVA not on aspirin or statin Mood disorder/seizure disorder Continue home medications once med rec is complete DVT prophylaxis: Lovenox Full code Time Spent With Patient Time: Total time managing care of this patient today ____ minutes.
--- NOTE | 2024-12-08 13:17 | MHC.CM.PN ---
CM MET WITH PT WITH A TITLE I PARAPROFESSIONAL, PTS DAUGHTER ZAINA WAS ALSO ATTENDING VIA FT CALL PT LIVES WITH HER DAUGHTER, NIECE AND NEPHEW SHE HAS DAILY [facility] FOR 18 HRS PER WEEK THEY REPORT SHE HAS A HCP NAMING HER DAUGHTER THE AGENT, COPY REQUESTED PCP: KUMAR FLYNN DELIVERED DCP: HOME, [facility]ME [facility] FAMILY TO TRANSPORT
[2024-12-08] MEDS: Insulin Lispro 100 UNIT/ML 3 ML VIAL SUBCUT (13:19)
--- NOTE | 2024-12-08 13:25 | PHA.MEDREC ---
Pharmacy Consult ? Medication Reconciliation Pharmacy has completed the medication reconciliation. Daughter brought in a med list from home. She reports 10 units for Lantus @7PM (rx says 24 u). Daughter reports the Vitamin A was put on hold by her doctor on Tuesday12/03/24, last taken Tuesday as well. She was prescribed oxycodone on Tuesday for headaches, still has at home prn. Patient took her last dose of prednisone yesterday for a 5 day course. Daughter reports patient had ferrous gluconate and ursodiol today. [facility] reports [facility] for lactulose was 10/2023, daughter says she still uses it QID at no specific times.
[2024-12-08 15:15] VITALS: BP 104/51; PULSE 75; RESP 18; TEMP 37; O2SAT 100
[2024-12-08] MEDS: Ketorolac Tromethamine 15 MG/ML VIAL IVPUSH (15:23)
[2024-12-08 16:27] LABS: Glucose, Whole Blood 138 mg/dL (60-115)
--- NOTE | 2024-12-08 17:48 | HO.SKINPHOTO ---
Location:Right ear Category: Stage: Length: Width: Depth: cm Location: Right ear posterior Category: Stage: Length: Width: Depth: cm Location: Left ear Category: Stage: Length: Width: Depth: cm Location: Category: Stage: Length: Width: Depth: cm Location: Category: Stage: Length: Width: Depth: cm Location: Category: Stage: Length: Width: Depth: cm
[2024-12-08 20:31] LABS: Glucose, Whole Blood 148 mg/dL (60-115)
[2024-12-08] MEDS: Insulin Glargine,Hum.rec.anlog 100 UNIT/ML 10 ML VIAL 10 UNIT SUBCUT (20:35)
[2024-12-08 23:24] VITALS: BP 101/59; PULSE 68; RESP 18; TEMP 36.7; O2SAT 100
[2024-12-09] MEDS: Enoxaparin Sodium 40 MG/0.4 ML SYRINGE SUBCUT (02:35)
[2024-12-09] MEDS: cefEPime HCl/D5W 2 GM/50 ML PIGGYBACK IV ×3 (02:35→18:33)
--- NOTE | 2024-12-09 07:45 | HO.PM.IMPN ---
Subjective Subjective Date of Service: 12/09/24 Review of Systems Follow up ear pain Physical Exam Vital Signs: Vital Signs: Last Vital Signs Temp 98.0 F 12/08/24 23:24 Pulse 68 12/08/24 23:24 Resp 18 12/08/24 23:24 BP 101/59 L 12/08/24 23:24 Pulse Ox 100 12/08/24 23:24 O2 Del Method Room Air 12/08/24 23:24 BMI result Body Mass Index 25.8 Objective Data Active Medications Acetaminophen (Acetaminophen 325 Mg Tablet) 650 mg PO Q6H PRN PRN Reason: Pain, Mild 1-3,fever,headache Calcium Carbonate (Calcium Carbonate 750 Mg Tab.Chew) 750 mg PO Q4H PRN PRN Reason: Heartburn Dextrose (Dextrose 50 % 25 Gm/50 Ml Syringe) 25 gm IVPUSH Q15M PRN; Protocol PRN Reason: per Hypoglycemia Standing Ord. Enoxaparin Sodium (Enoxaparin Sodium 40 Mg/0.4 Ml Syringe) 40 mg SUBCUT Q24H [facility] Last Admin: 12/09/24 02:35 Dose: 40 mg Documented By: HERBIE Glucose (Glucose Gel 15 Gm Gel..Gram.) 15 gm PO Q15M PRN; Protocol PRN Reason: per Hypoglycemia Standing Ord. Cefepime HCl (Maxipime) 2 gm in 50 mls @ 100 mls/hr IV Q8H [facility] Last Infusion: 12/09/24 03:08 Dose: Infused Documented By: HERBIE Insulin Glargine (Insulin Glargine,Hum.Rec.Anlog 100 Unit/Ml 10 Ml Vial) 10 unit SUBCUT BEDTIME [facility] Last Admin: 12/08/24 20:35 Dose: 10 unit Documented By: HERBIE Insulin Human Lispro (Insulin Lispro 100 Unit/Ml 3 Ml Vial) 0 unit SUBCUT QIDACHS [facility]; Protocol Last Admin: 12/08/24 20:43 Dose: Not Given Documented By: HERBIE Non-Admin Reason: No Insulin Coverage Magnesium Hydroxide (Milk Of Magnesia 30 Ml Oral.Susp) 30 ml PO DAILY PRN PRN Reason: Constipation Melatonin (Melatonin 3 Mg Tablet) 6 mg PO BEDTIME PRN PRN Reason: Insomnia Ondansetron HCl (Ondansetron Hcl 4 Mg/2 Ml Vial) 4 mg IVPUSH Q8H PRN PRN Reason: Nausea and Vomiting Oxycodone HCl (Oxycodone Hcl Immed Release 5 Mg Tablet) 5 mg PO Q4H PRN PRN Reason: Pain, Moderate(Pain Scale 4-6) Sodium Chloride (0.9 % Sodium Chloride Flush 3 Ml Syringe) 3 ml IVFLUSH QSHIFT [facility] Last Admin: 12/08/24 20:36 Dose: 3 ml Documented By: HERBIE Labs 12/08/24 04:18 12/08/24 04:18 Labs: Laboratory Results - last 24 hr 12/08/24 12/08/24 12/08/24 11:38 16:12 20:20 POC Glucose 158 H 138 H 148 H Microbiology Microbiology Results: Microbiology 12/08/24 01:26 Blood Culture - Preliminary Blood - Venous No growth after 24 hours. 12/08/24 01:12 Blood Culture - Preliminary Blood - Venous No growth after 24 hours. 12/08/24 01:33 Gram Stain - Final Ear - Left Assessment and Plan (1) Perichondritis: Status: Acute Plan This is a 44-year-old female with pertinent history of cirrhosis with portal hypertension and varices, insulin-dependent diabetes mellitus, history of CVA, mood disorder, seizure disorder who presents to the emergency department for evaluation of ear pain and redness. Acute perichondritis. Improving IV cefepime due to extensive infection. No sepsis. Monitor for improvement Cirrhosis with portal hypertension and varices, compensated Unclear etiology of cirrhosis. Daughter states it is genetic . 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 Continue home medications. Insulin-dependent diabetes mellitus with hyperglycemia Initiating basal plus insulin regimen Thrombocytopenia due to cirrhosis History of CVA not on aspirin or statin Mood disorder/seizure disorder Continue home medications once med rec is complete DVT prophylaxis: Lovenox Full code Quality Stroke Does the patient have a stroke diagnosis?: No VTE Prior VTE?: No VTE Risk Level:: Medical - moderate - high VTE Device Contraindication: Treatment Not Indicated VTE Drug Contraindication: N/A - Med Ordered
[2024-12-09 07:52] LABS: Glucose, Whole Blood 99 mg/dL (60-115)
[2024-12-09 08:00] VITALS: BP 100/59; PULSE 70; RESP 16; TEMP 36.8; O2SAT 99
[2024-12-09 09:30] LABS: Anion Gap 11 (12-20); Blood Urea Nitrogen 12 mg/dL (9-16); Calcium 8.1 mg/dL (8.4-10.2); Carbon Dioxide 18 mmol/L (22-29); Chloride 115 mmol/L (96-108); Estimated Glomerular Filt Rate > 60; Glucose Random 145 mg/dL (60-115); Potassium 3.6 mmol/L (3.3-5.1); Sodium 140 mmol/L (135-145)
[2024-12-09 11:22] LABS: Glucose, Whole Blood 157 mg/dL (60-115)
[2024-12-09] MEDS: Insulin Lispro 100 UNIT/ML 3 ML VIAL SUBCUT ×2 (11:54→17:06)
[2024-12-09] MEDS: UrsodioL 300 MG CAPSULE PO ×2 (15:13→21:00)
[2024-12-09] MEDS: 0.9 % Sodium Chloride Flush 3 ML SYRINGE IVFLUSH (15:14)
[2024-12-09 15:28] VITALS: BP 108/60; PULSE 69; RESP 16; TEMP 36.8; O2SAT 100
[2024-12-09 16:40] LABS: Glucose, Whole Blood 152 mg/dL (60-115)
[2024-12-09 18:33] LABS: Glucose, Whole Blood 100 mg/dL (60-115)
[2024-12-09 19:18] VITALS: BP 101/56; PULSE 71; RESP 18; TEMP 37.2; O2SAT 100
[2024-12-09 20:02] LABS: Glucose, Whole Blood 116 mg/dL (60-115)
[2024-12-09] MEDS: Lactulose 20 GM/30 ML SOLUTION PO (20:51)
[2024-12-09] MEDS: Zonisamide 100 MG CAPSULE 200 MG PO (20:52)
[2024-12-09] MEDS: Insulin Glargine,Hum.rec.anlog 100 UNIT/ML 10 ML VIAL 10 UNIT SUBCUT (20:52)
[2024-12-09 23:19] VITALS: BP 101/57; PULSE 75; RESP 18; TEMP 36.2; O2SAT 100
[2024-12-10] MEDS: 0.9 % Sodium Chloride Flush 3 ML SYRINGE IVFLUSH (00:14)
[2024-12-10] MEDS: Enoxaparin Sodium 40 MG/0.4 ML SYRINGE SUBCUT (03:03)
[2024-12-10] MEDS: cefEPime HCl/D5W 2 GM/50 ML PIGGYBACK IV (03:03)
[2024-12-10 07:19] LABS: Glucose, Whole Blood 122 mg/dL (60-115)
[2024-12-10 07:52] VITALS: BP 104/51; PULSE 69; RESP 12; TEMP 37; O2SAT 100
--- NOTE | 2024-12-10 07:57 | PM.DS ---
DS: Providers Provider Date of Service: 12/10/24 Date of admission: 12/08/24 01:54 Date of discharge: 12/10/24 Primary care physician: Sammie Maharaj MD Consults: 12/08/24 17:54 Consult to Wound Care Routine Reason for consultation: Bilateral ears. DS: Diagnosis Discharge Diagnosis (1) Perichondritis: Status: Acute DS: Summary Hospital Course Hospital Course: History and physical as per admitting provider. This is a 44-year-old female with pertinent history of cirrhosis with portal hypertension and varices, insulin-dependent diabetes mellitus, history of CVA, mood disorder, seizure disorder who presents to the emergency department for evaluation of ear pain and redness. Patient states her symptoms started 1 day prior to presentation. She initially noticed right ear erythema which is associated with swelling, pain and tenderness. Subsequently the left ear turned red. This has never happened before. No precipitating factor. Patient states she has had yellow eyes and yellow skin for years now. Denies abdominal distention or pain. No hematemesis, melena, hematochezia. No fever, chills, nausea, vomiting, chest pain, palpitations, shortness of breath, changes in urinary or bowel habits In the emergency department, patient was initiated on IV cefepime. Acute perichondritis. Treated with IV cefepime due to extensive infection. No sepsis. Some crusting but significant improvement in swelling. [facility] days of antibiotics and 4 days of prednisone. Cirrhosis with portal hypertension and varices, compensated. Unclear etiology of cirrhosis. Daughter states it is genetic . 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 Continue home medications. Insulin-dependent diabetes mellitus with hyperglycemia. continue home medications Thrombocytopenia . due to cirrhosis History of CVA. not on aspirin or statin Mood disorder/seizure disorder. Continue home medications Time Attestation Discharge Coordination Time (in mins): 40 Quality: Safe Use of Opioids Does Pt have an Active Cancer Diagnosis on the Problem List?: No Quality: Stroke Does the patient have a stroke diagnosis?: No Physical Exam Vital Signs: Vital Signs: Last Vital Signs Temp 98.6 F 12/10/24 07:52 Pulse 69 12/10/24 07:52 Resp 12 12/10/24 07:52 BP 104/51 L 12/10/24 07:52 Pulse Ox 100 03/03/25 07:52 O2 Del Method Room Air 12/10/24 07:52 BMI result Body Mass Index 25.8 Appearing in no acute distress head is normocephalic atraumatic eyes pupils are PERRLA sclera is anicteric mouth throat mucous membranes are intact and moist neck is supple no lymphadenopathy, no JVD noted lung sounds are clear to auscultation heart regular rate rhythm, clear S1, S2 positive bowel sounds, abdomen is soft, nontender neuro patient is alert x3, no focal deficits DS: Data Data Completed and Pending Labs on day of discharge: Laboratory Results - last 24 hr 12/09/24 12/09/24 12/09/24 08:32 11:13 16:13 Sodium 140 Potassium 3.6 D Chloride 115 H Carbon Dioxide 18 L Anion Gap 11 L BUN 12 Creatinine 0.45 L Estim Creat Clear Calc 114.0 Estimated GFR > 60 POC Glucose 157 H 152 H Random Glucose 145 H Calcium 8.1 L 12/09/24 12/09/24 12/10/24 18:29 19:22 07:08 Sodium Potassium Chloride Carbon Dioxide Anion Gap BUN Creatinine Estim Creat Clear Calc Estimated GFR POC Glucose 100 116 H 122 H Random Glucose Calcium Preliminary micro results at discharge 12/08/24 01:26 Blood Culture - Preliminary Blood - Venous No growth after 48 hours. 12/08/24 01:12 Blood Culture - Preliminary Blood - Venous No growth after 48 hours. 12/08/24 01:33 Routine Culture - Preliminary Ear - Left Culture in progress. Discharge Plan Discharge Anticipated Discharge Date/Time: 12/10/24 07:50 Patient Disposition: Home, Self-Care Discharge Diagnosis: Perichondritis Referrals: Sammie Maharaj MD [Primary Care Provider] - 1 Week Discharge Medications: New levofloxacin 500 mg tablet 500 mg PO DAILY Qty: 8 0RF prednisone 10 mg tablet 40 mg PO DIRECTED Qty: 16 0RF Rx Instructions: take 40 mg for 4 days Continued zonisamide 100 mg capsule 200 mg PO BEDTIME vitamin A 3,000 mcg (10,000 unit) capsule 1 cap PO DAILY Rx Instructions: On hold as of Sunday 12/03 ursodiol 250 mg tablet 250 mg PO TID oxycodone 5 mg tablet 5 mg PO Q12H PRN (Reason: severe pain) ferrous gluconate 324 mg (38 mg iron) tablet 324 mg PO BID insulin glargine [Lantus Solostar U-100 Insulin] 100 unit/mL (3 mL) insulin pen 10 unit subcut DAILY@1900 lactulose 10 gram/15 mL Solution 30 ml PO QID Discharge Orders: Discharge Order (Routine); Ordered 12/10/24 Ordered By: Svetlana Connolly Diet: Advance to usual diet Activity on Discharge: As tolerated Stand Alone Forms: Patient Portal Discharge page Print Language: Divehi Care Plan Goals: Complete antibiotic course Clean ears with warm soapy water daily Monitor for any worsening of pain or swelling Health Concerns: Perichondritis Plan of Treatment: Follow up with primary care provider as needed Take all medications as prescribed Assessment: See discharge summary
[2024-12-10] MEDS: oxyCODONE HCl Immed Release 5 MG TABLET PO (09:04)
[2024-12-10] MEDS: UrsodioL 300 MG CAPSULE PO (09:04)
--- NOTE | 2024-12-10 09:17 | MHC.CM.PN ---
pt dcd home self care
== END 2024-12-10 09:44 | disposition home or self-care (01) | DRG 565 ==
LOC: HO.ED 12-08 00:30 → HO.EDOVER 12-08 01:55 → HO.S3 12-08 10:19
PROVIDERS: Physician Assistant; Admitting Provider Student in an Organized Health Care Education/Training Program; Emergency Provider Internal Medicine; PCP Family Medicine; Visit Provider Nurse Practitioner Acute Care
DX: H61.01 Acute perichondritis of external ear (principal); K76.6 Portal hypertension; K74.60 Unspecified cirrhosis of liver; D69.59 Other secondary thrombocytopenia; G40.909 Epilepsy, unspecified, not intractable, without status epilepticus; F39 Unspecified mood [affective] disorder; E11.65 Type 2 diabetes mellitus with hyperglycemia; Z86.73 Personal history of transient ischemic attack (TIA), and cerebral infarction without residual deficits; Z79.4 Long term (current) use of insulin; Z79.899 Other long term (current) drug therapy
CPT/HCPCS: 36415; 80048; 80053; 80076; 82140; 82947; 83605; 83735; 85025; 85610; 85652; 86140; 87040; 87070; 87205; 93005; 99285; J0692; J1650; J1885; J7120

== ENCOUNTER → 2024-12-07 18:38 | Outpatient (BNV) | payer OTHER, SELFPAY | PROVIDERS: Admitting Provider Student in an Organized Health Care Education/Training Program; Emergency Provider Internal Medicine; PCP Family Medicine; Visit Provider Internal Medicine Cardiovascular Disease | DX: R53.1 Weakness (principal) | CPT/HCPCS: 93010 ==

== ENCOUNTER → 2024-12-08 01:54 | Outpatient (BNV) | payer OTHER, SELFPAY | PROVIDERS: Admitting Provider Student in an Organized Health Care Education/Training Program; Emergency Provider Internal Medicine; PCP Family Medicine; Visit Provider Student in an Organized Health Care Education/Training Program | DX: H61.011 Acute perichondritis of right external ear (principal) | CPT/HCPCS: 99222; 99232; 99239; 99499 ==

== ENCOUNTER 2024-12-10 13:20 | Outpatient (REF) | payer OTHER, SELFPAY ==
[2024-12-10 14:30] LABS: Hematocrit 36.4 % (37.0-47.0); Hemoglobin 12.2 g/dl (12.0-16.0); Mean Corpuscular HGB Conc 33.5 g/dl (31.0-35.0); Mean Corpuscular Hemoglobin 31.7 pg (27.0-33.0); Mean Corpuscular Volume 94.5 fL (80.0-98.0); Mean Platelet Volume 11.6 fL (9.4-12.3); Platelet Count 183 X10*3/uL (160-400); Red Blood Count 3.85 X10*6/uL (4.20-5.50); Red Cell Distribution Width 14.2 % (11.0-16.0); White Blood Count 4.4 X10*3/uL (4.8-10.8)
[2024-12-10 14:59] LABS: INTERNATIONAL NORM RATIO 1.3 (0.9-1.1); Prothrombin Time 15.1 SEC (10.9-12.4)
[2024-12-10 15:15] LABS: Alanine Aminotransferase 181 U/L (0-31); Albumin Level 2.8 g/dL (3.5-5.0); Alkaline Phosphatase 1163 U/L (39-117); Anion Gap 12 (12-20); Aspartate Amino Transferase 236 U/L (5-31); Bilirubin Total 7.7 mg/dL (0.0-1.0); Blood Urea Nitrogen 10 mg/dL (9-16); Calcium 8.3 mg/dL (8.4-10.2); Carbon Dioxide 21 mmol/L (22-29); Chloride 113 mmol/L (96-108); Estimated Glomerular Filt Rate > 60; Glucose Random 149 mg/dL (60-115); Potassium 3.5 mmol/L (3.3-5.1); Sodium 142 mmol/L (135-145)
[2024-12-10 15:39] LABS: Atypical Lymph Absolute Manual 0.2 x10*3/uL; Atypical Lymphs Percent Manual 5 % (0-6); Band Neutrophils Percent 5 % (3-5); Basophils Percent Manual 1 % (0-2); Eosinophils Absolute Manual 0.2 X10*3/uL (0.0-0.4); Eosinophils Percent Manual 4 % (0-4); Lymphocytes Absolute Manual 0.5 X10*3/uL (1.2-4.9); Lymphocytes Percent Manual 11 % (20-40); Metamyelocytes Percent 1 %; Monocytes Absolute Manual 0.3 X10*3/uL (0.1-1.2); Monocytes Percent Manual 6 % (2-11); Neutrophils Absolute Manual 3.2 X10*3/uL (2.0-8.3); Neutrophils Percent Manual 67 % (45-73)
[2024-12-10 15:40] LABS: Nucleated Red Blood Cells 1 /100WBC (0-0)
[2024-12-10 15:41] LABS: Large Platelet PRESENT; Platelet Estimate NORMAL (NORMAL); Platelet Morphology Comment NORMAL; RBC Morphology NORMAL
[2024-12-10 15:42] LABS: Hypersegmented Neutrophils PRESENT
--- OUTSIDE RECORDS SUMMARY | 2024-12-10 15:46 | XMS_ITS | Encounter Summary ---
Author Organization [facility] Address [address] [place] [address] Care Team Providers Care Laborer Drying Department Name Role Phone Kingfisher, Sammie JOHNSON Primary Care Provider [phone] Loyda Glaser RN Unavailable [phone] Yasmin Ho MD Unavailable [phone] Reason for Visit * Reason Comments Facial Swelling Encounter Details Date Type Department Care Team (Late st Contact Info) Description 12/03/2024 11:00 AM EST Office Visit [facility] [address], [place] [phone] Rocio Bell MD [address], [place] [phone] Atopic dermatitis in adult (Primary Dx); End [...] hospitalization. Acute Concerns: Patient here with her [id number], complaining of facial swelling and erythema and [...] if needed. I spoke with Liz at [facility] liver transplant clinic, explained the situation and ask them to run the pictures and case by bagging salvager in case this is not related to liver disease which she is unlikely. Relevant Orders CBC auto differential Sed Rate by Modified Westergren Hepatic Function Panel C-reactive Protein End stage liver disease (CMS/HCC) Relevant Orders Ammonia, Plasma Follow Up: Current Outpatient Medications on File Prior to Visit Medication Sig Dispense Refill beta carotene (vitamin A) 3 MG (80511 UT) capsule Take 1 capsule by mouth [...] facility-administered medications on file prior to visit. * Rocio Bell MD - 12/03/2024 11:00 AM EST Today's labs show elevated LFTs, I called patient after discussing the case with the liver transplant office, I explained that the results and told her that either or [facility] liver transplant officewill reach out to her tomorrow to decide further plan of care. She tells me that she feels less swelling, otherwise she remains with the same symptoms and no new ones. Advised her that given her highammonia levels she should increase lactulose to an extra half a tbsp before lunchtime and extra half tbsp prior to dinner, she will continue 1 tbsp twice daily. She agreed with the plan of care documented in this encounter Miscellaneous Notes * [...] if needed. I spoke with Liz at [facility] liver transplant clinic, explained the situation and ask them to run the pictures and case by bagging salvager in case this is not related to liver disease which she is unlikely. * Result Encounter Note - Rocio Bell MD - 12/03/2024 11:00 AM EST Labs showed mild worsening of bili's and alk phos, rule out obstructive fissures or may be autoimmune hepatitis. Her inflammatory markers are higher as well. She ideally should be seen by newspaper publisher now or run these labs by bagging salvager, I spoke with Maria L at [facility] hepatology/transplant clinic and unfortunately no one was [...] Care Team (Late st Contact Info) Description 12/19/2024 9:00 AM EDT Office Visit [facility] [address] [place] [address] Sammie Maharaj MD [address] [place] [address] 02/25/2025 9:00 AM EDT Office Visit [facility] [address] [place] [address] Mckay, Darshana, OD [address] [place] [address] documented as of this encounter Procedures Procedure [...] (ABNORMAL) Ammonia, Plasma (12/03/2024 12:21 PM EST) Pathologist [facility] Ammonia (P) 72(H) 13 - 55 umol/L [facility] Blood Venous blood specimen / Unknown 12/03/2024 12:21 PM EST 12/03/2024 12:21 PM EST Rocio Bell MD LAB BLOOD ORDERABLES Fin al Result Performing Organization Address City/[facility]/ZIP Co de Phone Number [facility] [address] [place] [phone] * (ABNORMAL) C-reactive Protein (12/03/2024 12:21 PM EST) Pathologist [facility] C Reactive Protein 17.87(H) < or = 0.50 mg/dL [facility] Blood Venous blood specimen / Unknown 12/03/2024 12:21 PM EST 12/03/2024 12:21 PM EST Rocio Bell MD LAB BLOOD ORDERABLES Fin al Result Performing Organization Address City/[facility] Co de Phone Number [facility] [address] [place] [phone] * (ABNORMAL) Hepatic Function Panel (12/03/2024 12:21 PM EST) Pathologist [facility] Bilirubin, Total 11.9(H) 0.0 - 1.0 mg/dL [facility] Comment:Mild Icterus. Bilirubin, Direct 9.3(H) 0.0 - 0.5 mg/dL [facility] Comment:Mild Icterus. Aspartate Amino Transferase 108(H) 5 - 31 U/L [facility] Alanine Aminotransferase 95(H) 0 - 31 U/L [facility] Total Protein 6.8 6.5 - 8.0 g/dL [facility] Albumin Level 3.0(L) 3.5 - 5.0 g/dL [facility] Alkaline Phosphatase 1,064(H) 39 - 117 U/L [facility] Blood Venous blood specimen / Unknown 12/03/2024 12:21 PM EST 12/03/2024 12:21 PM EST Rocio Bell MD LAB BLOOD ORDERABLES Fin al Result Performing Organization Address [facility] Co de Phone Number [facility] [address] [place] [phone] * (ABNORMAL) Sed Rate by Modified Westergren (12/03/2024 12:21 PM EST) Erythrocyte Sedimentation Rate 67(H) 0 - 20 MM/HR [facility] Comment:Patients with polycy themia and many hemoglobin abnormalitiesmay have depressed sed rates whereas patients with anemiamay have elevated sed rates. Blood Venous blood specimen / Unknown 12/03/2024 12:21 PM EST 12/03/2024 12:21 PM EST Rocio Bell MD LAB BLOOD ORDERABLES Fin al Result Performing Organization Address [facility] Co de Phone Number [facility] [address] [place] [address] [phone] * (ABNORMAL) CBC auto differential (12/03/2024 12:21 PM EST) White Blood Count 7.3 4.8 - 10.8 X10*3/uL [facility] Red Blood Count 4.10(L) 4.20 - 5.50 X10*6/uL [facility] Hemoglobin 12.9 12.0 - 16.0 g/dl [facility] Hematocrit 38.1 37.0 - 47.0 % [facility] Mean Corpuscular Volume 92.9 80.0 - 98.0 fL [facility] Mean Corpuscular Hemoglobin 31.5 27.0 - 33.0 pg [facility] Mean Corpuscular HGB Conc 33.9 31.0 - 35.0 g/dl [facility] Red Cell Distribution Width 13.5 11.0 - 16.0 % [facility] Platelet Count 114(L) 160 - 400 X10*3/uL [facility] Mean Platelet Volume 13.0(H) 9.4 - 12.3 fL [facility] Neutrophils Percent Auto 78.5(H) 45 - 73 % [facility] Imm Gran Pct Auto 0.6(H) 0.0 - 0.4 % [facility] Lymphocytes Percent Auto 9.2(L) 20 - 40 % [facility] Monocytes Percent Auto 10.7 2 - 11 % [facility] Eosinophils Percent Auto 0.7 0 - 4 % [facility] Basophils Percent Auto 0.3 0 - 2 % [facility] NRBC Pct Auto 0.0 0.0 - 0.2 /100WBC [facility] Neutrophils Absolute Auto 5.7 2.0 - 8.3 x10*3/uL [facility] Imm Gran Abs Auto 0.04(H) 0.00 - 0.03 X10*3/uL [facility] Lymphocytes Absolute Auto 0.7(L) 1.2 - 4.9 X10*3/uL [facility] Monocytes Absolute Auto 0.8 0.1 - 1.2 X10*3/uL [facility] Eosinophils Absolute Auto 0.1 0.0 - 0.4 X10*3/uL [facility] Basophils Absolute Auto 0.0 0.0 - 0.2 X10*3/uL [facility] NRBC Abs Auto 0.000 0.0 - 0.012 X10*3/uL [facility] Blood Venous blood specimen / Unknown 12/03/2024 12:21 PM EST 12/03/2024 12:21 PM EST us Rocio Bell MD LAB BLOOD ORDERABLES Fin al Result [facility] [address] [place], [place] [phone] documented in this encounter Visit Diagnoses Diagnosis Atopic dermatitis in adult- Primary End stage liver disease (CMS/HCC) documented in this encounter Additional Health Concerns Assessment Noted Time PHQ-9 Depression Total Score: 0 10/24/19 25 9:33 AM EST documented as of this encounter Care Teams Laborer Drying Department Relationship Specialty Start Date End Date Sammie Maharaj MD [address] [place] [address] PCP - General Family Medicine 10/10/18 Loyda Glaser, ERVIN [address] [place] [address] Laborer [employer] Family Medicine 10/31/23 Yasmin Ho MD [address] [place] [address] Gastroenterology 08/29/[address] [facility] [address] [facility] [facility] [address] Neurology 08/29/24 Paola Tolentino, HEBERT [address] [address] Endocrinology 10/24/24 documented as of this encounter
--- OUTSIDE RECORDS SUMMARY | 2024-12-10 15:46 | XMS_ITS | Encounter Summary ---
Demographics Address [address] [facility] [address] [place] [address] Home Phone Mobile Phone Preferred Language Filipino; Castilian Marital Status Single Mu-Ism Affiliation Unknown Race Unknown Ethnic Group Unknown Author Organization [facility] Address [address] [place] [address] Support Name Relationship Address Phone Orion Rubio Daughter [address] [facility] [address] [place] [address] Care Team Providers Care Elastic Attacher Overlock Name Role Phone Sammie Maharaj Primary Care Provider [phone] Reason for Visit * Reason Comments Med Refill Encounter Details Date Type Department Care Team (Late st Contact Info) Description 11/13/2024 Refill [facility] [address] [place] [address] Yasmin Ho MD [address] [place] [address] Social History Tobacco Use Types Packs/Day Years [...] Info) Description 01/08/2025 8:00 AM EDT Follow-Up [facility] [address] [place] [address] Yasmin Ho MD [address] [place] [address] 03/22/2025 3:30 PM EDT Office Visit [facility] [address] [place] [address] Investigator Operator: Natasha Rubalcava MD [address] [place] [address] 07/17/2025 8:00 AM EDT Office Visit [facility] [address] [place] [address] Investigator Operator: Paola Vance NP [address] [place] [address] 08/06/2025 8:00 AM EDT Office Visit [facility] [address] [place] [address] Manuel Carpenter PA [address] [place] [address] documented as of this encounter Visit Diagnoses Not on filedocumented in this encounter Care Teams Elastic Attacher Overlock Relationship Specialty Start Date End Date Sammie Maharaj [address] [place] [address] PCP - General Family Medicine 05/15/18 documented as of this encounter
--- OUTSIDE RECORDS SUMMARY | 2024-12-10 15:46 | XMS_ITS | Encounter Summary ---
Demographics Address [address] [facility] [address] [place] [address] Home Phone Mobile Phone Preferred Language Cay[place] Islander; Castilian Marital Status Single Sikhism Affiliation Unknown Race Unknown Ethnic Group Unknown Author Organization [facility] Address [address] [place] [address] Support Name Relationship Address Phone Orion Rubio Daughter [address] [facility] [address] [place] [address] Care Team Providers Care Fiberglass Model Maker Name Role Phone Sammie Maharaj Primary Care Provider [phone] Encounter Details Date Type Department Care Team (Late st Contact Info) Description 11/28/2024 Telephone [facility] Transplant Department [address] [place] [address] Katy Boateng RN Social History Tobacco Use [...] Info) Description 01/08/2025 8:00 AM EDT Follow-Up [facility] Transplant Services [address] [place] [address] Yasmin Ho MD [address] [place] [address] 03/22/2025 3:30 PM EDT Office Visit [facility] [address] [place] [address] Political Research Scientist: Natasha Rubalcava MD [address] [place] [address] 07/17/2025 8:00 AM EDT Office Visit [facility] [address] [place] [phone] Political Research Scientist: Paola Vance NP [address] [place] [address] 08/06/2025 8:00 AM EDT Office Visit [facility] [address] [place] [address] Manuel Carpenter PA [address] [place] [address] Scheduled Orders Name Type Priority Associated Diagnoses Orde r Schedule AFP Tumor Marker Lab Routine Cryptogenic cirrhosis (CMS/HCC) (HCC) Expected: 11/28/2024, Expires: 11/28/2025 documented as of this encounter Visit Diagnoses Diagnosis Cryptogenic cirrhosis (CMS/HCC) (HCC)- Primary Cirrhosis of liver without mention of alcohol documented in this encounter Care Teams Fiberglass Model Maker Relationship Specialty Start Date End Date Sammie Maharaj: [phone] [address] [place] [address] PCP - General Family Medicine 05/15/18 documented as of this encounter
--- OUTSIDE RECORDS SUMMARY | 2024-12-10 15:46 | XMS_ITS | Encounter Summary ---
Demographics Address [address] [facility] [address] [place] [address] Home Phone Mobile Phone Preferred Language Kosovan; Castilian Marital Status Single Hoahaoism Affiliation Unknown Race Unknown Ethnic Group Unknown Author Organization [facility] Address [address] [place] [address] Support Name Relationship Address Phone Orion Rubio Daughter [address] [facility] [address] [place] [address] Care Team Providers Care Mds Nurse Name Role Phone Nicko Sammie Beckett Primary Care Provider [phone] Reason for Visit * Consultation (Routine) - Authorized Specialty Diagnoses / Procedures Referred By Contac t Referred To Contact Diagnoses Encounter for pre-transplant evaluation for liver transplant Type 2 diabetes mellitus with hyperglycemia, without long-term current use of insulin (HCC) Yasmin Ho MD [address] [place] [address] Phone: tel: fax: Natasha Kramer MD [address] [place] [address] Phone: tel: fax: Referral ID Status Reason Start Date Expiration Date Visits Requested Visits Authorized [id number] Authorized Specialty Services Required 12/15/2023 06/15/2025 6 6 Encounter Details Date Type Department Care Team (Late st Contact Info) Description 11/14/2024 8:00 AM EST Office Visit [facility] [address] [place] [address] Plywood Stock Grader: Paola Vance NP [address] [facility] [place] [address] Type 2 diabetes mellitus without complication, with [...] not included. Date of Visit: 11/14/2024 Location: [facility] Aubrie Mario is a 44 y.o. female here to follow-up on diabetes management. Grout Worker Grout Worker Used: Yes Type of Grout Worker Used: Video Grout Worker Grout Worker Name/Number: [id number] Information Interpreted : Outpatient Visit Diabetes Care Team: ; Natasha Kramer DOBIE WORKER: Paola Tolentino CDCES: none yet CC: checking in on diabetes. HPI: Aubrie Mario is a 44 y.o. female here for evaluation of management of type 2 diabetes . Aubrie lives with her daughter and 2 school aged nephews. Aubrie does housework, relies on her [id number] to get to appointments and the grocery [...] Info) Description 01/08/2025 8:00 AM EDT Follow-Up [facility] [address] [place] [address] [phone] Yasmin Ho MD [address] [place] [address] 03/22/2025 3:30 PM EDT Office Visit [facility] [address] [place] [address] Plywood Stock Grader: Natasha Rubalcava MD [address] [place] [address] 07/17/2025 8:00 AM EDT Office Visit [facility] [address] [place] [address] Plywood Stock Grader: Paola Vance NP [address] [place] [address] 08/06/2025 8:00 AM EDT Office Visit [facility] Neurology Clinic [address] [place] [address] Manuel Carpenter PA [address] [place] [address] documented as of this encounter Procedures * Due to [facility] law, this organization might not be sharing negative HIV tests. Procedure Name Priority Date/Time Associated Diagnosis Comments POCT GLYCOSYLATED HEMOGLOBIN (HGB A1C) Routine 11/14/2024 7:40 AM EST documented in this encounter Results * Due to [facility] law, this organization might not be sharing negative HIV tests. * POCT Glycosylated Hemoglobin (HGB A1C), interfaced (11/14/2024 7:40 AM EST) Hemoglobin A1C, POCT 4.2 <=5.6 % 11/14/2024 8:12 AM EST [facility] Comment: A1C Recommendation for Non- Adults with Diabetes: <7.0% ADA 2011 Standards of Medical Care in Diabetes Blood 11/14/2024 7:40 AM EST 11/14/2024 8:12 AM EST us Paola J. Rajan DOBIE WORKER LAB POCT ORDERABLES - DEVICE Final Result [facility] [address] [place] [address], documented in this encounter Visit Diagnoses Diagnosis Type 2 diabetes mellitus without complication, with long-term current use of insulin (CMS/HCC) (HCC)- Primary documented in this encounter Care Teams Mds Nurse Relationship Specialty Start Date End Date NickoSammie thompson [address] [place] [address] PCP - General Family Medicine 05/15/18 documented as of this encounter
--- OUTSIDE RECORDS SUMMARY | 2024-12-10 15:46 | XMS_ITS | Encounter Summary ---
Demographics Address [address] [facility] [place] [address] Home Phone Mobile Phone Preferred Language Bangladeshi; Castilian Marital Status Single Congregation Affiliation Unknown Race Unknown Ethnic Group Unknown Author Organization [facility] Address [address] [place] [address] Support Name Relationship Address Phone Orion Rubio Daughter [address] [facility] [place] [address] Care Team Providers Care Nurse Licensed Practical Name Role Phone Kenney Maharajgus Beckett Primary Care Provider [phone] Reason for Visit * Transplant (Routine) - Authorized Specialty Diagnoses / Procedures Referred By Contmichael t Referred To Contact Transplant Diagnoses Liver Transplant Evaluation Marilee Alexander NP [address] [place] [address] Phone: tel: fax: [facility] [address] [place] [address] Phone: tel: fax: Referral ID Status Reason Start Date Expiration Date V isits Requested Visits Authorized [id number] Authorized 09/06/2023 12/13/2025 25 25 Encounter Details Date Type Department Care Team (Late st Contact Info) Description 11/14/2024 10:00 AM EST Social Work [facility] [address] [place] [address] Marissa De La Cruz [address] Transplant [address] [address] Social History Tobacco Use Types Packs/Day Years [...] this encounter Progress Notes * Marissa AvelarBernardoBenito, POST ACUTE CARE REGISTERED NURSE - 11/14/2024 10:00 AM EST LIVER TRANSPLANT PSYCHOSOCIAL REASSESSMENT Identifying information: Patient is a 44-year-old female who is here with her wwgdcs-er-gwy Laxmi Mas for an annual psychosocial reassessment. Both patient and ellics-ys-hmy are Bangladeshi-speaking. A bio medical technician via iPad was used for this evaluation (Floored ID # [id number]). Patient is active on the waiting list [...] and 14) in a subsidized apartment in [facility]. Patient is the network support of her young nephews whose father (patient's brother) was murdered. Patient has an open DCF case. She has been caring for her nephews for the last 5 years. Patient has never been . She has one daughter. Patient does not have any grand children. Patient's sister in law who is here today lives in [facility]. Patient was born and raised in [place]. [place] came [place]. Patient has one sister who lives in [place]. She has a brother in [place] [facility] and 3 other brothers who were all murdered. Patient's parents are . Patient completed school to the 9th grade. Patient last worked in 2012. She last worked at [employer] and states she stopped because of healthproblems. When asked about interest, hmhzfz-nc-tfv states patient's only interest is sleeping all day . Patient denies any mandaeism. Financial history: Patient is on Social Security disability and receives about $900 a month. Patient's insurance is [employer] [facility] [employer] ([facility]) which manages her Medicare and [employer] benefits. Patient has subsidized housing. Patient has SNAP/Food stamps. Patient denies any housing or food insecurities. Transplant SW reminded patient regarding the importance of notifying the transplant program of any problems or changes in her insurance to ensure proper coverage for transplant, posttransplant follow-up and posttransplant medications. Support system: Patient does not drive. Fnsenv-wu-ifz states she brings patient to all of her medical appointments.Adlrdx-wq-bxi is here today and seems very supportive. Zwqdlf-iy-xwh lives in 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 Transplant SW reminded patient and syjrfw-ve-zte regarding the option of receiving rides through her insurance [facility] ([facility]). Icquie-kg-muw states she is aware of this option but reports patient does not like to use these rides. Wakrzz-bs-mye states patient does not have anyone else to give her rides. Hvbjmg-xq-zhg reports that patient daughter helps patient with her medications. Vsmrsngn-qq-oig also helps patient with her activities of daily living in the home. Daughter also works outside the home. Fejvlq-pu-mcw does patient's shopping and helps her pay her bills. Transplant SW re-educated patient and yyqkbq-qf-gom regarding the care and supervision the patient would need throughout recovery from liver transplant. Brttfa-yo-ttq states that she is her main support [...] Patient denies any current use of alcohol. Uawmyy-jh-icr reports patient was never a drinker. Patient denies any past or current use of illicit drugs. Patient does not use any marijuana and never smoked cigarettes. Transplant SW re-educated patient and dttbjo-by-iqp regarding transplant substance use policy. Per sister [...] psychiatric medication. When asked about trauma history, woruqj-nd-end reports patient has had a lot of stress due to losing 3 of her brothers to murder around the same time. Also around the same time patient had a stroke which has left her with several deficits. Hzfgxu-mg-aqy states the patient mainly of natasha by [...] cryptogenic cirrhosis. Transplant SW re-educated patient and hgtsiq-yb-xab regarding the issues and commitment involved with [...] nodding yes or no to questions. Her vfeowe-fm-jim states that she does not speak very much due to a stroke that she had in 2013. Rhkanq-ee-wfn is here today and states that commitment to being patient's primary business communications instructor throughout recovery from transplant. Piddxm-lv-ogr is also is currently very involved in patient's care bringing her to all of her appointments. In addition patient has support from her 21-year-old daughter who lives in the home. Znlgun-hi-mxm states patient would like a liver transplant. [...] ongoing strong support of her family specifically szphdl-ij-hxv and daughter, patient continues to meet criteria for liver transplantation from a psychosocial perspective. Plan: 1. Patient maintains a healthcare proxy form on file in [facility] and chose her prdusi-ea-eon Laxmi Mas as her healthcare agent ([phone]). Patient states she does not wish to make any changes. 2. Patient maintains a release of information form on file in [facility] allowing sharing of health information with her sister in law Laxim Mas. 3. Patient and sister in law were reminded regarding the virtual liver transplant support group. 4. Transplant SW will continue to follow patient with transplant team and provide psychosocial support as necessary. documented in this encounter Plan of Treatment Upcoming Encounters Date Type Department Care Team (Late st Contact Info) Description 01/08/2025 8:00 AM EDT Follow-Up [facility] [address] [place] [address] Yasmin Ho MD [address] [place] [address] 03/22/2025 3:30 PM EDT Office Visit [facility] [address] [place] [address] Ink Maker: Natasha Rubalcava MD [address] [place] [phone] 07/17/2025 8:00 AM EDT Office Visit [facility] [address] [place] [address] Ink Maker: Paola Vance NP [address] [place] [address] 08/06/2025 8:00 AM EDT Office Visit [facility] [address] [place], [place] [phone] Manuel Carpenter PA [address] [place] [address] documented as of this encounter Visit Diagnoses Not on filedocumented in this encounter Care Teams Nurse Licensed Practical Relationship Specialty Start Date End Date Pillsbury, Sammie Beckett [address] [place] [phone] PCP - General Family Medicine 05/15/18 documented as of this encounter
--- OUTSIDE RECORDS SUMMARY | 2024-12-10 15:47 | XMS_ITS | Encounter Summary ---
Author Organization [employer] Address [address] [place] [address] Care Team Providers Care Bleacher Lard Name Role Phone Sammie Maharaj MD Primary Care Provider [phone] Loyda Glaser RN Unavailable [phone] Yasmin Ho MD Unavailable [phone] Reason for Visit * Reason Comments Med Refill Encounter Details Date Type Department Care Team (Late st Contact Info) Description 11/13/2024 Refill [facility] [address] [place], [place] [phone] Sammie Maharaj MD [address] [place], [place] [phone] Tinea unguium Social History Tobacco Use Types [...] Description 12/19/2024 9:00 AM EDT Office Visit [facility] [address] [place] [address] Sammie Maharaj MD [address] [place] [address] 02/25/2025 9:00 AM EDT Office Visit [facility] [address] [place] [address] Mckay, Darshana, OD [address] [place] [address] documented as of this encounter Visit Diagnoses Diagnosis Tinea unguium Dermatophytosis of nail documented in this encounter Additional Health Concerns Assessment Noted Time PHQ-9 Depression Total Score: 0 10/24/19 25 9:33 AM EST documented as of this encounter Care Teams Bleacher Lard Relationship Specialty Start Date End Date Sammie Maharaj MD [address] [place] [address] PCP - General Family Medicine 10/10/18 Loyda Glaser RN [address] [place] [address] Primary Operator Family Medicine 10/31/23 Yasmin Ho MD [address] [place] [address] Gastroenterology 08/29/24 Manuel Carpenter PA [address] [address] Neurology 08/29/24 Paola Tolentino, TEXTILE SCRAP SALVAGER [address] [address] Endocrinology 10/24/24 documented as of this encounter
--- OUTSIDE RECORDS SUMMARY | 2024-12-10 15:47 | XMS_ITS | Clinical Summary ---
Demographics Address [address] [facility] [address] [place] [address] Home Phone Mobile Phone Preferred Language Portuguese; Castilian Marital Status Single Protestant Affiliation Unknown Race Unknown Ethnic Group Unknown Author Organization [facility] Address [address] [place] [address] Support Name Relationship Address Phone Orion Rubio Daughter [address] [facility] [address] [place] [address] Care Team Providers Care Computer Training Specialist Name Role Phone Kenney Maharajgus Beckett Primary [...] Capsule(s) By Mouth Daily 3 Active [employer]Style [place] Lite meter TEST BLOOD SUGAR THREE TIMES DAILY 4 Active [employer] [place] 2 [place] misc 4 Active FreeStyle [place] 2 Sensor [...] mL 11 4 Active FreeStyle [place] 3 [place] [facility] Use to monitor blood sugars. E11.9 1 each 05/15/2024 9:09 AM EDT 4 Active FreeStyle [place] 3 Sensor deviceIndicati ons:Type 2 diabetes mellitus without complication, with long-term current use of insulin (CMS/HCC) ([facility]) Change sensor every 14 days. E11.9 2 each 11 07/25/2024 6:52 PM EDT 4 Active FreeStyle [place] 3 Plus Sensor deviceIndicati ons:Type 2 diabetes mellitus without complication, with long-term current use of insulin (CMS/HCC) ([facility]) Change sensor every 15 days. E11.65 [...] from 18-14 by endo 04/2024 Seen by [facility] endocrinology 04/18/24 Hemoglobin A1c is falsely [...] approval for her to upgrade to the freeChipoloyle charlotte 3 CGM. BPPV (benign paroxysmal positional [...] Encounters Date Type Department Care Team Description 12/10/2024 Orders Only [facility] Transplant Department [address] [place] [address] [phone] Katy Boateng, ERVIN Cryptogenic cirrhosis (CMS/HCC) (HCC) (Primary Dx) 12/04/2024 Telephone [facility] Transplant Department [address] [place] [address] [phone] Katy Boateng RN 12/04/2024 Orders Only [facility] Transplant Department [address] [place] [address] [phone] Katy Boateng RN Cryptogenic cirrhosis (CMS/HCC) (HCC) (Primary Dx); Liver disease 11/28/2024 Telephone [facility] Transplant Department [address] [place] [address] [phone] Katy Boateng RN 11/14/2024 10:00 AM EST Social Work [facility] Liver Transplant Services [address] [place] [address] [phone] Marissa Hearn ROTARY SCREEN PRINTING MACHINE OPERATOR 11/14/2024 8:00 AM EST Office Visit [facility] [address] [place] [address] [phone] Needle Punch Machine Operator: Paola Vance NP Type 2 diabetes mellitus without complication, with long-term current use of insulin (CMS/HCC) (HCC) (Primary Dx) 11/13/2024 Refill [facility] Transplant Services [address] [place] [address] [phone] Yasmin Ho MD 10/24/2024 Refill [facility] Transplant [facility] [address] [place] [address] [phone] Yasmin Ho MD 10/11/2024 Refill [facility] Transplant Services [address] [place] [address] Yasmin Ho MD 10/02/2024 Refill [facility] Transplant [facility] [address] [place] [address] [phone] Yasmin Ho MD 09/12/2024 Orders Only [facility] Interventional Radiology [address] [place] [address] [phone] Eugene Warren MD 09/11/2024 8:00 AM EST Follow-Up [facility] Transplant [facility] [address] [place] [address] [phone] Yasmin Ho MD Cryptogenic cirrhosis (CMS/HCC) (HCC) (Primary Dx) 09/11/2024 Orders Only [facility] Transplant Department [address] [place] [address] [phone] Katy Boateng RN Cryptogenic cirrhosis (CMS/HCC) (HCC) [...] Info) Description 01/08/2025 8:00 AM EDT Follow-Up [facility] Liver Transplant Services [address] [place] [address] [phone] Yasmin Ho MD [address] [place] [phone] 03/22/2025 3:30 PM EDT Office Visit [facility] Diabetes Clinic [address] [place] [address] [phone] Needle Punch Machine Operator: Natasha Rubalcava MD [address] [place] [address] 07/17/2025 8:00 AM EDT Office Visit [facility] Diabetes Clinic [address] [place] [address] [phone] Needle Punch Machine Operator: Paola Vance NP [address] [place] [address] [place] [address] 08/06/2025 8:00 AM EDT Office Visit [facility] Neurology Clinic [address] [place] [address] [phone] Manuel Carpenter, REINALDO [address] [place] [address] Health Maintenance Due Date Last Done Comments [...] 04/26/2024, Additional history exists Basic Metabolic Panel 12/07/2025 12/07/2024 , 10/24/2024, 09/11/2024, Additional history exists Pneumococcal Vaccine: Pediat bon [...] Additional history exists Procedures * Due to [place] state law, this organization might not be [...] to Health Maintenance Results * Due to [place] state law, this organization might not be sharing negative HIV tests. * POCT Glycosylated Hemoglobin (HGB A1C), interfaced (11/14/2024 7:40 AM EST) Hemoglobin A1C, POCT 4.2 <=5.6 % 11/14/2024 8:12 AM EST [facility] Comment: A1C Recommendation for Non- Adults with Diabetes: <7.0% ADA 2011 Standards of Medical Care in Diabetes Blood 11/14/2024 7:40 AM EST 11/14/2024 8:12 AM EST us Paola Tolentino NP LAB POCT ORDERABLES - DEVICE Final Result [facility] P[facility] [address] [place] [address], * (ABNORMAL) CBC Auto Differential (09/11/2024 9:08 AM EST) WBC 5.4 3.8 - 10.8 10*3/uL 09/11/2024 9:36 AM EST [facility] RBC 4.07 3.80 - 5.10 10*6/uL 09/11/2024 9:36 AM EST [facility] Hemoglobin 12.7 11.7 - 15.5 g/dL 09/11/2024 9:36 AM EST [facility] Hematocrit 38.2 35.0 - 45.0 % 09/11/2024 9:36 AM EST [facility] MCV 93.9 80.0 - 100.0 fL 09/11/2024 9:36 AM EST [facility] MCH 31.2 27.0 - 33.0 pg 09/11/2024 9:36 AM EST [facility] MCHC 33.2 32.0 - 36.0 g/dL 09/11/2024 9:36 AM EST [facility] RDW 14.3 11.0 - 15.0 % 09/11/2024 9:36 AM EST [facility] Platelets 160 140 - 400 10*3/uL 09/11/2024 9:36 AM EST [facility] MPV 12.1 7.5 - 12.5 fL 09/11/2024 9:36 AM EST [facility] Neutrophil % 78.3 % 09/11/2024 9:36 AM EST [facility] Immature Grans % 0.4 0.0 - 0.9 % 09/11/2024 9:36 AM EST [facility] Lymphocyte % 12.8 % 09/11/2024 9:36 AM EST [facility] Monocyte % 5.5 % 09/11/2024 9:36 AM EST [facility] Eosinophil % 2.6 % 09/11/2024 9:36 AM EST [facility] Basophil % 0.4 % 09/11/2024 9:36 AM EST [facility] Neutrophil # 4.24 1.50 - 7.80 10*3/uL 09/11/2024 9:36 AM EST [facility] Immature Grans # <0.03 <=0.03 10*3/uL 09/11/2024 9:36 AM EST [id number] Lymphocyte # 0.70(L) 0.85 - 3.90 10*3/uL 09/11/2024 9:36 AM EST [id number] Monocyte # 0.30 0.20 - 0.95 10*3/uL 09/11/2024 9:36 AM EST [facility] Eosinophil # 0.10 0.02 - 0.50 10*3/uL 09/11/2024 9:36 AM EST [facility] Basophil # <0.03 0.00 - 0.20 10*3/uL 09/11/2024 9:36 AM EST [id number] nRBC % 0.0 /100 WBCs 09/11/2024 9:36 AM EST [facility] nRBC # <0.01 <0.01 10*3/uL 09/11/2024 9:36 AM EST [facility] Blood Structure of peripheral vein / Unknown Venipuncture / Unknown 09/11/2024 9:08 AM EST 09/11/2024 9:27 AM EST us Yasmin Ho MD LAB BLOOD ORDERABLES Final R esult [facility] [address] [place] [address], [place] * AFP Tumor Marker (09/11/2024 9:08 AM EST) Alpha Fetoprotein, Tumor Marker 3.4 ng/mL 09/12/2024 12:39 PM EST [facility] Comment: Reference Range: ?? <6.1 The use of AFP as a tumor marker in females is not recommended. This test was performed using the Magdeil Dev chemiluminescent method. Values obtained from different assay methods cannot be used interchangeably. AFP levels, regardless of value, should not be interpreted as absolute evidence of the presence or absence of disease. Blood Structure of peripheral vein / Unknown Venipuncture / Unknown 09/11/2024 9:08 AM EST 09/11/2024 9:26 AM EST [facility] - 09/12/2024 12:39 PM EST [facility] Received Date: Yasmin Ho MD LAB BLOOD ORDERABLES Final R esult [facility] [address] [facility] [address] [facility], [place] [address], [employer] [facility] [address], [place] [address], * Protime-INR (09/11/2024 9:08 AM EST) Pathologist [facility] PT 12.2 9.6 - 12.4 Seconds 09/11/2024 9:52 AM EST [facility] INR 1.1 0.9 - 1.1 09/11/2024 9:52 AM EST [facility] Comment:The optimal therapeu tic INR range for patients treated with Vitamin K antagonists (VKAS, e.g., Warfarin) is 2.0 to 3.5. Discuss the desired range with your doctor/care team. Blood Structure of peripheral vein / Unknown Venipuncture / Unknown 09/11/2024 9:08 AM EST 09/11/2024 9:26 AM EST Yasmin Ho MD LAB BLOOD ORDERABLES Final R esult Performing Organization Address City/[facility]/ZIP Co de Phone Number [facility] [address] [place] [phone], * (ABNORMAL) Bilirubin, Direct (09/11/2024 9:08 AM EST) Bilirubin, Direct 6.9(H) <=0.4 mg/dL 09/11/2024 10:02 AM EST [facility] Blood Structure of peripheral vein / Unknown Venipuncture / Unknown 09/11/2024 9:08 AM EST 09/11/2024 9:25 AM EST Yasmin Ho MD LAB BLOOD ORDERABLES Final R esult Performing Organization Address City/[facility]/ZIP Co de Phone Number [facility] [address] [place] [phone], [place] * (ABNORMAL) Comprehensive Metabolic Panel (09/11/2024 9:08 AM EST) Pathologist [facility] NA 142 135 - 145 mmol/L 09/11/2024 10:02 AM EST [facility] K 3.6 3.5 - 5.3 mmol/L 09/11/2024 10:02 AM EST [facility] Cl 110(H) 98 - 107 mmol/L 09/11/2024 10:02 AM EST [facility] CO2 19(L) 22 - 32 mmol/L 09/11/2024 10:02 AM EST [facility] Anion Gap 13 5 - 15 09/11/2024 10:02 AM EST [facility] Glucose 242(H) 65 - 99 mg/dL 09/11/2024 10:02 AM EST [facility] Creatinine 0.67 0.50 - 1.20 mg/dL 09/11/2024 10:02 AM EST [facility] Calcium 8.8 8.6 - 10.5 mg/dL 09/11/2024 10:02 AM [facility] Total Protein 6.6 6.0 - 8.0 g/dL 09/11/2024 10:02 AM [facility] Albumin 3.3(L) 3.5 - 5.2 g/dL 09/11/2024 10:02 AM [facility] Bilirubin, Total 8.7(H) 0.2 - 1.2 mg/dL 09/11/2024 10:02 AM [facility] Alkaline Phosphatase 1,141(H) 35 - 129 U/L 09/11/2024 10:02 AM [facility] AST 122(H) 10 - 40 U/L 09/11/2024 10:02 AM [facility] ALT 105(H) 10 - 40 U/L 09/11/2024 10:02 AM [facility] BUN 18 7 - 23 mg/dL 09/11/2024 10:02 AM [facility] eGFR >90 >=60 mL/min/1 .73m2 09/11/2024 10:02 AM [facility] Comment:The estimated glomer ular [...] 2.1 - 4.2 g/dL 09/11/2024 10:02 AM [facility] A/G Ratio 1.0(L) 1.5 - 3.0 09/11/2024 10:02 AM EST [facility] Blood Structure of peripheral vein / Unknown Venipuncture / Unknown 09/11/2024 9:08 AM EST 09/11/2024 9:25 AM EST us Yasmin Ho MD LAB BLOOD ORDERABLES Final R esult [facility] [address] [place] [address], [place] * Microalbumin, Random Urine with Creatinine (04/26/2024 4:22 PM EDT) Microalbumin, Urine <2.0 mg/dL 04/26/2024 5:20 PM EDT [email or web address] Creatinine, Urine 69 15 - 278 mg/dL 04/26/2024 5:20 PM EDT [facility] Microalb/Creat Ratio, Random Urine 04/26/2024 5:20 PM EDT [email or web address] Comment: < 1.0 mcg/mgCr [...] ORDERABLES Final Resul t Performing Organization Address City/[facility]/ZIP Co de Phone Number [facility] [address] [place] [address], * Hepatitis C Antibody w/Reflex to PCR (09/20/2023 12:40 PM EST) Hepatitis C Antibody NON-REACT VIVEK NON-REACT VIVEK 09/21/2023 6:41 AM EST [employer] Comment: HCV antibody was non-reactive. There is no laboratory evidence of HCV infection. In most cases, no further action is required. However, if recent HCV exposure is suspected, a test for HCV RNA (test code 18379) is suggested. For additional information please refer to http://Mobiotics.frestyl/faq/OID80a3 (This link is being provided for informational/ educational purposes only.) Blood Structure of peripheral vein / Unknown Venipuncture / Unknown 09/20/2023 12:40 PM EST 09/20/2023 1:07 PM EST Narrative [facility] - 09/21/2023 6:41 AM EST [facility] Received Date:[id number] Yasmin Ho MD LAB BLOOD ORDERABLES Final R esult [facility] [address], [place] [address], [facility] [address] [facility] 3rd Floor, [place] [address], from Last 3 Months or Most Recently Relevant to Health Maintenance Insurance [facility] REINALDO WEBER [id number] Advance Directives Documents on File Type Date Recorded Patient Case Management Director Expl anation Health Care Proxy 10/26/2023 12:55 PM 10-10 Advance Directive 01/22/2014 12:00 AM Adva nce Care Directives Advance Directive 04/03/2010 12:00 AM luba Sandhu edical Dec Making (Adv.Dir) * Presumed Full Code (Latest Code Status on File) Date Activated Date Inactivated Comments 05/15/2024 12:15 PM 05/16/2024 2:39 AM Care Teams Computer Training Specialist Relationship Specialty Start Date End Date Sammie Maharaj: [phone] [address] [place] [id number] PCP - General Family Medicine 05/15/18
--- OUTSIDE RECORDS SUMMARY | 2024-12-10 15:47 | XMS_ITS | Encounter Summary ---
Author Organization [employer] Address [address] [facility] [address] [place] [address] Care Team Providers Care Clerical Manager Name Role Phone Sammie Maharaj MD Primary Care Provider [phone] Loyda Glaser RN Unavailable [phone] Yasmin Ho MD Unavailable Reason for Visit * Reason Comments Transition Of Care (Tcm) HDF scheduled. Encounter Details Date Type Department Care Team (Late st Contact Info) Description 12/10/2024 Patient Outreach [facility] [address] [place] [address] Sammie Maharaj MD [address] [place] [address] Transition Of Care (Tcm) (HDF scheduled. ) Social History Tobacco Use Types Packs/Day [...] as of this encounter Miscellaneous Notes * Significant Event - Shelbie Linares - 12/10/2024 11:35 AM EST 12/10/24 1126 Hospital Discharges and Admission for [facility] Type of Visit Hospital Admission Date of Admission/Visit 12/08/24 Date of Discharge 12/10/24 Facility [facility] Diagnosis Ear Swelling Disposition Discharged Home Follow-Up Actions Follow-Up Needed Provider appointment Follow-Up Outcome Spoke to Patient;Booked Appointment Initial Contact Date 12/10/24 NUVIA Ruelas placed outbound call to patient for HDF outreach. Patient's name and were confirmed. Patient educated on the importance of follow up with provider following inpatient admission. Patient offered an HDF appt. Patient is agreeable to an appointment and has been scheduled for 12/19 at9:00am with MD. Maharaj. Patient provided with education on contacting the Health Center with any questions or concerns prior to the scheduled appointment. Patient educated on extended clinic hours on Mondays and Wednesdays, and Walk-In Urgent Care Located in [facility]. Patient provided with after-hours line for [facility], , which offer night time triage service and option to transfer to immigration investigator provider if needed. CC scanned discharge summary into patient's chart. Biggest concern forappointment at this time is no concerns. Appropriate screenings completed in anticipation of appointment. documented in this encounter Plan of Treatment Upcoming Encounters Date Type Department Care Team (Late st Contact Info) Description 12/19/2024 9:00 AM EDT Office Visit [facility] MEDICINE [address] [place] [address] Sammie Maharaj MD [address] [place] [address] 02/25/2025 9:00 AM EDT Office Visit [facility] OPTOMETRY [address] [place] [address] Darshana Bashir, OD [address] [place] [address] documented as of this encounter Visit Diagnoses Not on filedocumented in this encounter Additional Health Concerns Assessment Noted Time PHQ-9 Depression Total Score: 0 10/24/19 9:33 AM EST documented as of this encounter Care Teams Clerical Manager Relationship Specialty Start Date End Date Sammie Maharaj MD [address] [place] [address] PCP - General Family Medicine 10/10/18 Loyda Glaser, ERVIN [address] [place] [address] Psychiatric Social Worker Family Medicine 10/31/23 Yasmin Ho MD [address] [place] [address] Gastroenterology 08/29/24 Manuel Carpenter PA [address] [address] Neurology 08/29/24 Paola Tolentino NP [address] [address] Endocrinology 10/24/24 documented as of this encounter
--- OUTSIDE RECORDS SUMMARY | 2024-12-10 15:47 | XMS_ITS | Referral Summary ---
Demographics Address [address] [place] [address] Home Phone Mobile Phone Preferred Language Burkinan; Castilian Marital Status Single Pentecostal Affiliation Unknown Race Unknown Ethnic Group Unknown Author Organization [facility] Address [address] [place] [address] Support Name Relationship Address Phone Orion Rubio Daughter [address] [place] [address] Care Team Providers Care Fieldwork Coordinator Name Role Phone Sammie Maharaj Primary Care Provider [phone] Encounters Date Type Department Care Team Description 12/10/2024 [facility] Only [facility] [address] [place] [address] 46769 Katy Boateng, ERVIN Cryptogenic cirrhosis (CMS/HCC) (HCC) (Primary Dx) 12/04/2024 Telephone [facility] [address] [place] [address] 18152 Katy Boateng RN 12/04/2024 Orders Only [facility] [address] [place] [address] 33676 Katy Boateng, ERVIN Cryptogenic cirrhosis (CMS/HCC) (HCC) (Primary Dx); Liver disease 11/28/2024 Telephone [facility] [address] [place] [address] 08875 Ktay Boateng, ERVIN 11/14/2024 10:00 AM EST Social Work [facility] [address] [place] [address] 26235 Marissa Hearn LICSW 11/14/2024 8:00 AM EST Office Visit [facility] Building Diabetes Clinic [address] [place] [address] 23823 Feed Mixer: Paola Vance J., JAVA TECHNICAL MANAGER Type 2 diabetes mellitus without complication, with long-term current use of insulin (CMS/HCC) (HCC) (Primary Dx) 11/13/2024 Refill [facility] [address] [place] [address] 65548 Yasmin Ho MD 10/24/2024 Refill [facility] [address] [place] [address] 11457 Yasmin Ho MD 10/11/2024 Refill [facility] [address] [place] [address] 90325 Yasmin Ho MD 10/02/2024 Refill [facility] [address] [place] [address] 89190 Yasmin Ho MD 09/12/2024 Orders Only [facility] Interventional Radiology [address] [place] [address] 55237 Eugene Warren MD 09/11/2024 Orders Only [facility] [address] [place] [address] 82556 Katy Boateng RN Cryptogenic cirrhosis (CMS/HCC) (HCC) (Primary Dx) 09/11/2024 8:00 AM EST [facility] [address] [place] [address] 49372 Yasmin Ho MD Cryptogenic cirrhosis (CMS/HCC) (HCC) [...] Capsule(s) By Mouth Daily 3 Active FreeStyle [place] Lite meter TEST BLOOD SUGAR THREE TIMES DAILY 4 Active FreeStyle [place] 2 [place] misc 4 Active FreeStyle [place] 2 Sensor [...] mL 11 4 Active FreeStyle [place] 3 [place] misc Use to monitor blood sugars. E11.9 1 each 05/15/2024 9:09 AM EDT 4 Active FreeStyle [place] 3 Sensor deviceIndicati ons:Type 2 diabetes mellitus without complication, with long-term current use of insulin (CMS/HCC) (HCC) Change sensor every 14 days. E11.9 2 [...] from 18-14 by endo 04/2024 Seen by [facility] endocrinology 04/18/24 Hemoglobin A1c is falsely [...] approval for her to upgrade to the CareKinesise 3 CGM. BPPV (benign paroxysmal positional vertigo) [...] Info) Description 01/08/2025 8:00 AM EDT [facility] [address] [place] [address] 83413 Yasmin Ho MD [address] [place] [address] 03/22/2025 3:30 PM EDT Office Visit [facility] Diabetes Clinic [address] [place] [address] 27901 Feed Mixer: Natasha Rubalcava MD [address] [place] [address] 74[address] 07/17/2025 8:00 AM EDT Office Visit [facility] Diabetes Clinic [address] [place] [address] 75331 Feed Mixer: Paola Vance NP [address] [place] [address] 87[address] 08/06/2025 8:00 AM EDT Office Visit [facility] Neurology Clinic [address] [place] [address] 63690 Manuel Carpenter PA [address] [place] [address] 16788 Procedures * Due to [place] [employer] law, this organization might not be sharing [...] to Health Maintenance Results * Due to [place] [employer] law, this organization might not be sharing negative HIV tests. * POCT Glycosylated Hemoglobin (HGB A1C), interfaced (11/14/2024 7:40 AM EST) Hemoglobin A1C, POCT 4.2 <=5.6 % 11/14/2024 8:12 AM EST [facility], POC Comment: A1C Recommendation for Non- Adults with Diabetes: <7.0% ADA 2011 Standards of Medical Care in Diabetes Blood 11/14/2024 7:40 AM EST 11/14/2024 8:12 AM EST us Paola Tolentino JAVA TECHNICAL MANAGER LAB POCT ORDERABLES - DEVICE Final Result [facility], [facility] [address] [place] [address], * (ABNORMAL) CBC Auto Differential (09/11/2024 9:08 AM EST) WBC 5.4 3.8 - 10.8 10*3/uL 09/11/2024 9:36 AM EST [facility] RBC 4.07 3.80 - 5.10 10*6/uL 09/11/2024 9:36 AM EST [facility] Hemoglobin 12.7 11.7 - 15.5 g/dL 09/11/2024 9:36 AM EST [facility] Hematocrit 38.2 35.0 - 45.0 % 09/11/2024 9:36 AM EST [facility] MCV 93.9 80.0 - 100.0 fL 09/11/2024 9:36 AM EST [facility] MCH 31.2 27.0 - 33.0 pg 09/11/2024 9:36 AM EST [facility] MCHC 33.2 32.0 - 36.0 g/dL 09/11/2024 9:36 AM EST [facility] RDW 14.3 11.0 - 15.0 % 09/11/2024 9:36 AM EST [facility] Platelets 160 140 - 400 10*3/uL 09/11/2024 9:36 AM EST [facility] MPV 12.1 7.5 - 12.5 fL 09/11/2024 9:36 AM EST [facility] Neutrophil % 78.3 % 09/11/2024 9:36 AM EST [facility] Immature Grans % 0.4 0.0 - 0.9 % 09/11/2024 9:36 AM EST [facility] Lymphocyte % 12.8 % 09/11/2024 9:36 AM EST [facility] Monocyte % 5.5 % 09/11/2024 9:36 AM EST [facility] Eosinophil % 2.6 % 09/11/2024 9:36 AM EST [facility] Basophil % 0.4 % 09/11/2024 9:36 AM EST [facility] Neutrophil # 4.24 1.50 - 7.80 10*3/uL 09/11/2024 9:36 AM EST [facility] Immature Grans # <0.03 <=0.03 10*3/uL 09/11/2024 9:36 AM EST [facility] Lymphocyte # 0.70(L) 0.85 - 3.90 10*3/uL 09/11/2024 9:36 AM EST [facility] Monocyte # 0.30 0.20 - 0.95 10*3/uL 09/11/2024 9:36 AM EST [facility] Eosinophil # 0.10 0.02 - 0.50 10*3/uL 09/11/2024 9:36 AM EST [facility] Basophil # <0.03 0.00 - 0.20 10*3/uL 09/11/2024 9:36 AM EST [facility] nRBC % 0.0 /100 WBCs 09/11/2024 9:36 AM EST [facility] nRBC # <0.01 <0.01 10*3/uL 09/11/2024 9:36 AM EST [facility] Blood Structure of peripheral vein / Unknown Venipuncture / Unknown 09/11/2024 9:08 AM EST 09/11/2024 9:27 AM EST Yasmin Ho MD LAB BLOOD ORDERABLES Final R esult [facility] [address] [place] [address], * AFP Tumor Marker (09/11/2024 9:08 AM EST) Pathologist [facility] Alpha Fetoprotein, Tumor Marker 3.4 ng/mL 09/12/2024 12:39 PM EST [facility] Comment: Reference Range: ?? <6.1 The use of AFP as a tumor marker in females is not recommended. This test was performed using the Knewton Dev chemiluminescent method. Values obtained from different assay methods cannot be used interchangeably. AFP levels, regardless of value, should not be interpreted as absolute evidence of the presence or absence of disease. Blood Structure of peripheral vein / Unknown Venipuncture / Unknown 09/11/2024 9:08 AM EST 09/11/2024 9:26 AM EST [facility] 09/12/2024 12:39 PM EST [facility] Received Date: us Yasmin Ho MD LAB BLOOD ORDERABLES Final R Callystro Performing Organization Address City/[facility] Co de Phone Number [facility]ICHOL[facility] [address] [facility] [address]rd Floor, [place] [address], [place] [phone] Smart Education [facility] [address] [facility] [address]rd [facility], [place] [address], [place] [phone] * Protime-INR (09/11/2024 9:08 AM EST) Pathologist [facility] PT 12.2 9.6 - 12.4 Seconds 09/11/2024 9:52 AM EST [facility] INR 1.1 0.9 - 1.1 09/11/2024 9:52 AM EST [facility] Comment:The optimal therapeu tic INR range for patients treated with Vitamin K antagonists (VKAS, e.g., Warfarin) is 2.0 to 3.5. Discuss the desired range with your doctor/care team. Blood Structure of peripheral vein / Unknown Venipuncture / Unknown 09/11/2024 9:08 AM EST 09/11/2024 9:26 AM EST Yasmin Ho MD LAB BLOOD ORDERABLES Final R esult Performing Organization Address City/[facility]/ZIP Co de Phone Number [facility] [address] [place] [address], [place] * (ABNORMAL) Bilirubin, Direct (09/11/2024 9:08 AM EST) Bilirubin, Direct 6.9(H) <=0.4 mg/dL 09/11/2024 10:02 AM EST [facility] Blood Structure of peripheral vein / Unknown Venipuncture / Unknown 09/11/2024 9:08 AM EST 09/11/2024 9:25 AM EST Yasmin Ho MD LAB BLOOD ORDERABLES Final R [facility] Performing Organization Address City/[facility]/ZIP Co de Phone Number [facility] [address] [place] [address], [place] * (ABNORMAL) Comprehensive Metabolic Panel (09/11/2024 9:08 AM EST) NA 142 135 - 145 mmol/L 09/11/2024 10:02 AM EST [facility] K 3.6 3.5 - 5.3 mmol/L 09/11/2024 10:02 AM EST [facility] Cl 110(H) 98 - 107 mmol/L 09/11/2024 10:02 AM EST [facility] CO2 19(L) 22 - 32 mmol/L 09/11/2024 10:02 AM EST [facility] Anion Gap 13 5 - 15 09/11/2024 10:02 AM EST [facility] Glucose 242(H) 65 - 99 mg/dL 09/11/2024 10:02 AM EST [facility] Creatinine 0.67 0.50 - 1.20 mg/dL 09/11/2024 10:02 AM [facility] Calcium 8.8 8.6 - 10.5 mg/dL 09/11/2024 10:02 AM [facility] Total Protein 6.6 6.0 - 8.0 g/dL 09/11/2024 10:02 AM [facility] Albumin 3.3(L) 3.5 - 5.2 g/dL 09/11/2024 10:02 AM [facility] Bilirubin, Total 8.7(H) 0.2 - 1.2 mg/dL 09/11/2024 10:02 AM [facility] Alkaline Phosphatase 1,141(H) 35 - 129 U/L 09/11/2024 10:02 AM [facility] AST 122(H) 10 - 40 U/L 09/11/2024 10:02 AM [facility] ALT 105(H) 10 - 40 U/L 09/11/2024 10:02 AM [facility] BUN 18 7 - 23 mg/dL 09/11/2024 10:02 AM [facility] eGFR >90 >=60 mL/min/1 .73m2 09/11/2024 10:02 AM [facility] Comment:The estimated glomer ular filtration rate (eGFR) is calculated using a new formula developed by the NKF-ASN task force to eliminate race-based correction factors. The new formula uses serum/plasma creatinine, age, and gender to determine eGFR. A value below 60mls/min might indicate kidney disease and will be flagged. For additional information, see Valorie de souza al, Am J Kidney Dis. 2021;79(2):268- 288, A Unifying Approach for GFR estimation: Recommendations of the NKF-ASN Task Force on Reassessing the Inclusion of Race in Diagnosing Kidney Disease . Globulin, Total 3.3 2.1 - 4.2 g/dL 09/11/2024 10:02 AM EST [email or web address] A/G Ratio 1.0(L) 1.5 - 3.0 09/11/2024 10:02 AM EST [facility] Blood Structure of peripheral vein / Unknown Venipuncture / Unknown 09/11/2024 9:08 AM EST 09/11/2024 9:25 AM EST us Yasmin Ho MD LAB BLOOD ORDERABLES Final R esult Performing Organization Address City/[facility]/ZIP Co de Phone Number [facility] [address] [place] [address], * Microalbumin, Random Urine with Creatinine (04/26/2024 4:22 PM EDT) Microalbumin, Urine <2.0 mg/dL 04/26/2024 5:20 PM EDT [facility] Creatinine, Urine 69 15 - 278 mg/dL 04/26/2024 5:20 PM EDT [email or web address] Microalb/Creat Ratio, Random Urine 04/26/2024 5:20 PM EDT [email or web address] Comment: < 1.0 mcg/mgCr [...] ORDERABLES Final Resul t Performing Organization Address City/[facility]/ZIP Co de Phone Number [facility] [address] [place] [address], * Hepatitis C Antibody w/Reflex to PCR (09/20/2023 12:40 PM EST) Hepatitis C Antibody NON-REACT VIVEK NON-REACT VIVEK 09/21/2023 6:41 AM EST [facility] Comment: HCV antibody was non-reactive. There is no laboratory evidence of HCV infection. In most cases, no further action is required. However, if recent HCV exposure is suspected, a test for HCV RNA (test code 47053) is suggested. For additional information please refer to http://education.[employer]/faq/YAB67h6 (This link is being provided for informational/ educational purposes only.) Blood Structure of peripheral vein / Unknown Venipuncture / Unknown 09/20/2023 12:40 PM EST 09/20/2023 1:07 PM EST Narrative [facility] - 09/21/2023 6:41 AM EST [facility] Received Date: Yasmin Ho MD LAB BLOOD ORDERABLES Final R esult [facility] [address] [facility] 3rd [address], [place] [address], [employer] [facility] [address] [facility] 3rd [address], [place] [address], [place] [phone] from Last 3 Months or Most Recently Relevant to Health Maintenance Insurance [facility] REINALDO [place]BER [id number] Advance Directives Documents on File Type Date Recorded Patient Director Safety [facility] Proxy 10/26/2023 12:55 PM 10-10 Advance Directive 01/22/2014 12:00 AM Adva maru Care Directives Advance Directive 04/03/2010 12:00 AM luba Sandhu edical Dec Making (Adv.Dir) * Presumed Full Code (Latest Code Status on File) Date Activated Date Inactivated Comments 05/15/2024 12:15 PM 05/16/2024 2:39 AM Care Teams Fieldwork Coordinator Relationship Specialty Start Date End Date Sammie Maharaj [address] [place] [address] PCP - General Family Medicine 05/15/18
--- OUTSIDE RECORDS SUMMARY | 2024-12-10 15:47 | XMS_ITS | Encounter Summary ---
Author Organization [employer] Address [address] [facility] 7t [place] [address] Care Team Providers Care Vocal Artist Name Role Phone Sammie Maharaj MD Primary Care Provider [phone] Loyda Glaser RN Unavailable [phone] Yasmin Ho MD Unavailable [phone] Reason for Visit * Reason Onset Date Comments Hospital Follow-up 12/10/2024 Encounter Details Date Type Department Care Team (Late st Contact Info) Description 12/10/2024 Telephone [facility] MEDICINE [address] [place], [place] [phone] Sammie Maharaj MD [address] [place], [place] [phone] Hospital Follow-up Social History Tobacco Use Types Packs/Day Years [...] encounter Miscellaneous Notes * Telephone Encounter - Rakel Cordero - 12/10/2024 10:06 AM EST Tc from pt [facility] requesting a HDF appt. Hospital: [facility] Date of admission: 12/07/24 Discharge date: 12/10/24 Diagnosed: Ear swelling/no further details provided *Send message to [facility] Clinical Care Coordinators Contact [facility] at [phone] ([email or web address]) documented in this encounter Plan of Treatment Upcoming Encounters Date Type Department Care Team ([facility] st Contact Info) Description 12/19/2024 9:00 AM EDT Office Visit [facility] MEDICINE [address] [place] [address] Sammie Maharaj MD [address] [place] [address] 02/25/2025 9:00 AM EDT Office Visit [facility] OPTOMETRY [address] [place] [address] Darshana Bashir, OD [address] [place] [address] documented as of this encounter Visit Diagnoses Not on filedocumented in this encounter Additional Health Concerns Assessment Noted Time PHQ-9 Depression Total Score: 0 10/24/19 25 9:33 AM EST documented as of this encounter Care Teams Vocal Artist Relationship Specialty Start Date End Date Sammie Maharaj MD [address] [place] [address] PCP - General Family Medicine 10/10/18 Loyda Glaser, RN [address] [place] [address] Flour Mixer Family Medicine 10/31/23 Yasmin Ho MD [address] [place] [address] Gastroenterology 08/29/24 Manuel Carpenter PA [facility] [address] [facility] [address] Neurology 08/29/24 Paola Tolentino NP [facility] [address] [facility] [address] Endocrinology 10/24/24 documented as of this encounter
--- OUTSIDE RECORDS SUMMARY | 2024-12-10 15:47 | XMS_ITS | Encounter Summary ---
Demographics Address [address] [facility] [address] [place] [address] Home Phone Mobile Phone Preferred Language Palauan; Castilian Marital Status Single Caodaism Affiliation Unknown Race Unknown Ethnic Group Unknown Author Organization [facility] Address [address] [place] [address] Support Name Relationship Address Phone Orion Rubio Daughter [address] [facility] [address] [place] [address] Care Team Providers Care Commercial Real Estate Manager Name Role Phone Sammie Maharaj Primary Care Provider [phone] Encounter Details Date Type Department Care Team (Late st Contact Info) Description 12/10/2024 Orders Only [facility] Transplant Department [address] [place] [address] Katy Boateng RN Cryptogenic cirrhosis (CMS/HCC) (HCC) (Primary Dx) Social History Tobacco [...] Description 01/08/2025 8:00 AM EDT Follow-Up [facility] Liver Transplant Services [address] [place] [address] Yasmin Ho MD [address] [place] [address] 03/22/2025 3:30 PM EDT Office Visit [facility] Building Diabetes Clinic [address] [place] [address] Delivery Consultant: Natasha Rubalcava MD [address] [place] [address] 07/17/2025 8:00 AM EDT Office Visit [facility] Diabetes Clinic [address] [place] [address] Delivery Consultant: Paola Vance NP [address] [place] [address] 08/06/2025 8:00 AM EDT Office Visit [facility] Neurology Clinic [address] [place] [address] Manuel Carpenter PA [address] [place] [address] Scheduled Orders Name Type Priority Associated Diagnoses Orde r Schedule Protime-INR Lab Routine Cryptogenic cirrhosis (CMS/HCC) (HCC) Expected: 12/10/2024, Expires: 12/10/2025 CBC Auto Differential Lab Routine Cryptogenic cirrhosis (CMS/HCC) (HCC) Expected: 12/10/2024, Expires: 12/10/2025 Comprehensive Metabolic Panel Lab Routine Cryptogenic cirrhosis (CMS/HCC) (HCC) Expected: 12/10/2024, Expires: 12/10/2025 documented as of this encounter Visit Diagnoses Diagnosis Cryptogenic cirrhosis (CMS/HCC) (HCC)- Primary Cirrhosis of liver without mention of alcohol documented in this encounter Care Teams Commercial Real Estate Manager Relationship Specialty Start Date End Date [place], Sammie VICKERS: [phone] [address] [place] [address] PCP - General Family Medicine 05/15/18 documented as of this encounter
--- OUTSIDE RECORDS SUMMARY | 2024-12-10 15:47 | XMS_ITS | Encounter Summary ---
Demographics Address [address] [facility] [address] [place] [address] Home Phone Mobile Phone Preferred Language Saudi Arabian; Castilian Marital Status Single Mu-Ism Affiliation Unknown Race Unknown Ethnic Group Unknown Author Organization [facility] Address [address] [place] [address] Support Name Relationship Address Phone Orion Rubio Daughter [address] [facility] [address] [place] [address] Care Team Providers Care Feather Sawyer Name Role Phone Sammie Maharaj Primary Care Provider [phone] Encounter Details Date Type Department Care Team (Late st Contact Info) Description 09/12/2024 Orders Only [facility] Interventional Radiology [address] [place] [address] Eugene Warren MD [address] [place] [address] Social History Tobacco Use Types Packs/Day Years [...] Follow-Up [facility] Liver Transplant Services [address] [place] [address] Yasmin Ho MD [address] [place] [address] 03/22/2025 3:30 PM EDT Office Visit [facility] Diabetes Clinic [address] [place] [address] Contract Technical Writer: Natasha Rubalcava MD [address] [place] [address] 07/17/2025 8:00 AM EDT Office Visit [facility] Diabetes Clinic [address] [place] [address] Contract Technical Writer: Paola Vance NP [address] [place] [address] 08/06/2025 8:00 AM EDT Office Visit [facility] Neurology Clinic [address] [place] [address] Manuel Carpenter PA [address] [place] [address] documented as of this encounter Visit Diagnoses Not on filedocumented in this encounter Care Teams Feather Sawyer Relationship Specialty Start Date End Date Sammie Maharaj [address] [place] [address] PCP - General Family Medicine 05/15/18 documented as of this encounter
--- OUTSIDE RECORDS SUMMARY | 2024-12-10 15:47 | XMS_ITS | Encounter Summary ---
Author Organization [employer] [facility] Address [address] 7[address] [place] [address] Care Team Providers Care Automatic Buffer Name Role Phone [place]anoe, Sammie JOHNSON Primary Care Provider [phone]- [phone] Loyda Glaser RN Unavailable [phone] Yasmin Ho MD Unavailable [phone] Encounter Details Date Type Department Care Team ([facility] Contact Info) Description 12/07/2024 Orders Only GENERIC EXTERNAL DATA DEPARTMENT Provider, Generic External Data Social History Tobacco Use Types Packs/Day Years [...] Description 12/19/2024 9:00 AM EDT Office Visit [facility] MEDICINE [address] [place] [address] Sammie Maharaj MD [address] [place] [address] 02/25/2025 9:00 AM EDT Office Visit [facility] OPTOMETRY [address] [place] [address] Mckay, Darshana, OD [address] [place] [address] documented as of this encounter Procedures Procedure Name Priority Date/Time Associated Diagnosis Comments CBC WITH AUTO DIFFERENTIAL Routine 12/07/2024 7:25 PM EST PROTHROMBIN TIME-INR Routine 12/07/2024 7:25 PM EST C-REACTIVE PROTEIN Routine 12/07/2024 7: 25 PM EST MAGNESIUM Routine 12/07/2024 7:25 PM EST AMMONIA (P) Routine 12/07/2024 7:25 PM EST HEPATIC FUNCTION PANEL Routine 12/07/2024 7:25 PM EST BASIC METABOLIC PANEL Routine 12/07/2024 7:25 PM EST SED RATE BY MODIFIED WESTERGREN Routine 12/07/2024 7:24 PM EST documented in this encounter Results * (ABNORMAL) C-reactive Protein (12/07/2024 7:25 PM EST) [facility] C Reactive Protein 17.40(H) < or = 0.50 mg/dL [facility] 12/07/2024 7:25 PM EST 12/07/2024 7:31 PM EST Generic External Data Provider LAB BLOOD ORDERAB LES Final Result Performing Organization Address City/[facility]/ZIP Co de Phone Number [facility] [address] [place] [phone] * Magnesium (12/07/2024 7:25 PM EST) [facility] Magnesium 1.9 1.6 - 2.6 mg/dL [facility] 12/07/2024 7:25 PM EST 12/07/2024 7:31 PM EST [facility] External Data Provider LAB BLOOD ORDERAB LES Final Result Performing Organization Address City/[facility]/ZIP Co de Phone Number [facility] [address] [place] [phone] * (ABNORMAL) Basic Metabolic Panel (12/07/2024 7:25 PM EST) [facility] Sodium 134(L) 135 - 145 mmol/L [facility] Potassium 3.5 3.3 - 5.1 mmol/L [facility] Chloride 104 96 - 108 mmol/L [facility] Carbon Dioxide 21(L) 22 - 29 mmol/L [facility] Anion Gap 13 12 - 20 [facility] Urea Nitrogen (BUN) 15 9 - 16 mg/dL [facility] Creatinine, Serum 0.63 0.5 - 1.4 mg/dL [facility] Creatinine Clr Calc Pharmacy 79.5 [facility] Comment:Provided height and weight: 144.78 cm,51.5 kg.eGFR (calculated from the MDRD study equation) and eCrCl(calculated from the Cockcroft-Gault equation) are based ondifferent parameters and may not yield comparable results.If eCrCl result is absurd, please check patient'sheight/weight. Estimated Glomerular Filt Rate >60 [facility] Comment:Chronic Kidney Disea se: Estimated GFR < 60 mL/min/1.73n6Wqoyre Kidney Disease: Estimated GFR < 15 mL/min/1.73m2 Glucose 311(H) 60 - 115 mg/dL [facility] Calcium 8.2(L) 8.4 - 10.2 mg/dL [facility] 12/07/2024 7:25 PM EST 12/07/2024 7:31 PM EST us Generic External Data Provider LAB BLOOD ORDERAB LES Final Result [facility] [address] [place] [phone] * (ABNORMAL) Hepatic Function Panel (12/07/2024 7:25 PM EST) Bilirubin, Total 8.9(H) 0.0 - 1.0 mg/dL [facility] Comment:Mild Icterus. Bilirubin, Direct 7.2(H) 0.0 - 0.5 mg/dL [facility] Comment:Mild Icterus. Aspartate Amino Transferase 108(H) 5 - 31 U/L [facility] Alanine Aminotransferase 103(H) 0 - 31 U/L [facility] Total Protein 6.0(L) 6.5 - 8.0 g/dL [facility] Albumin Level 2.6(L) 3.5 - 5.0 g/dL [facility] Alkaline Phosphatase 831(H) 39 - 117 U/L [facility] 12/07/2024 7:25 PM EST 12/07/2024 7:31 PM EST Generic External Data Provider LAB BLOOD ORDERAB LES Final Result Performing Organization Address [facility] Co de Phone Number [facility] [address] [place] [phone] * (ABNORMAL) Prothrombin Time-INR (12/07/2024 7:25 PM EST) Prothrombin Time 19.7(H) 10.9 - 12.4 SEC [facility] INTERNATIONAL NORM RATIO 1.7(H) 0.9 - 1.1 [facility] Comment:INTERNATIONAL NORMAL IZED RATIO (INR) REFERENCE RANGES Reference RangeFor patients not on anticoagulant therapy: 0.9 - 1.1INR ranges for oral anticoagulanttherapy:For prevention and treatment of venous thrombosis and pulmonary embolism: 2.0 - 3.0For acute myocardial infarction with aspirin therapy: 2.0 - 3.0For acute myocardial infarction without aspirin therapy: 3.0 - 4.0For patients with mechanical prosthetic heart valves: 2.5 - 3.5 12/07/2024 7:25 PM EST 12/07/2024 7:31 PM EST Generic External Data Provider LAB BLOOD ORDERAB LES Final Result Performing Organization Address [facility] Phone Number [facility] [address] [place] [address] [phone] * (ABNORMAL) Ammonia, Plasma (12/07/2024 7:25 PM EST) Ammonia (P) 66(H) 13 - 55 umol/L [facility] 12/07/2024 7:25 PM EST 12/07/2024 7:31 PM EST Generic External Data Provider LAB BLOOD ORDERAB LES Final Result Performing Organization Address [facility] Co de Phone Number [facility] [address] [place] [address] [phone] * (ABNORMAL) CBC auto differential (12/07/2024 7:25 PM EST) White Blood Count 7.6 4.8 - 10.8 X10*3/uL [facility] Red Blood Count 3.43(L) 4.20 - 5.50 X10*6/uL [facility] Hemoglobin 11.1(L) 12.0 - 16.0 g/dl [facility] Hematocrit 31.0(L) 37.0 - 47.0 % [facility] Mean Corpuscular Volume 90.4 80.0 - 98.0 fL [facility] Mean Corpuscular Hemoglobin 32.4 27.0 - 33.0 pg [facility] Mean Corpuscular HGB Conc 35.8(H) 31.0 - 35.0 g/dl [facility] Red Cell Distribution Width 13.5 11.0 - 16.0 % [facility] Platelet Count 140(L) 160 - 400 X10*3/uL [facility] Mean Platelet Volume 12.4(H) 9.4 - 12.3 fL [facility] Neutrophils Percent Auto 86.3(H) 45 - 73 % [facility] Imm Gran Pct Auto 2.8(H) 0.0 - 0.4 % [facility] Lymphocytes Percent Auto 5.6(L) 20 - 40 % [facility] Monocytes Percent Auto 4.9 2 - 11 % [facility] Eosinophils Percent Auto 0.1 0 - 4 % [facility] Basophils Percent Auto 0.3 0 - 2 % [facility] NRBC Pct Auto 0.0 0.0 - 0.2 /100WBC [facility] Neutrophils Absolute Auto 6.6 2.0 - 8.3 x10*3/uL [facility] Imm Gran Abs Auto 0.21(H) 0.00 - 0.03 X10*3/uL [facility] Lymphocytes Absolute Auto 0.4(L) 1.2 - 4.9 X10*3/uL [facility] Monocytes Absolute Auto 0.4 0.1 - 1.2 X10*3/uL [facility] Eosinophils Absolute Auto 0.0 0.0 - 0.4 X10*3/uL [facility] Basophils Absolute Auto 0.0 0.0 - 0.2 X10*3/uL [facility] NRBC Abs Auto 0.000 0.0 - 0.012 X10*3/uL [facility] 12/07/2024 7:25 PM EST 12/07/2024 7:31 PM EST Generic External Data Provider LAB BLOOD ORDERAB LES Final Result Performing Organization Address [facility] Co de Phone Number [facility] [address] [place] [phone] [phone] * (ABNORMAL) Sed Rate by Modified Alexiren (12/07/2024 7:24 PM EST) Erythrocyte Sedimentation Rate 73(H) 0 - 20 MM/HR [facility] Comment:Patients with polycy themia and many hemoglobin abnormalitiesmay have depressed sed rates whereas patients with anemiamay have elevated sed rates. 12/07/2024 7:24 PM EST 12/07/2024 7:31 PM EST Generic External Data Provider LAB BLOOD ORDERAB LES Final Result Performing Organization Address [facility] Co de Phone Number [facility] [address] [place] [phone] documented in this encounter Visit Diagnoses Not on filedocumented in this encounter Additional Health Concerns Assessment Noted Time PHQ-9 Depression Total Score: 0 10/24/19 25 9:33 AM EST documented as of this encounter Care Teams Automatic Buffer Relationship Specialty Start Date End Date Nicko, MD Sammie [address] [place], [place] [phone] PCP - General Family Medicine 10/10/18 Loyda Glaser RN [address] [place], [place] [phone] Sports Bookmaker Family Medicine 10/31/23 Yasmin Ho MD [address] [place] [address] [phone] Gastroenterology 08/29/24 Manuel Carpenter PA [address] [address] Neurology 08/29/24 Paola Tolentino NP [address] [address] Endocrinology 10/24/24 documented as of this encounter
--- OUTSIDE RECORDS SUMMARY | 2024-12-10 15:47 | XMS_ITS | Encounter Summary ---
Author Organization [employer] [facility] Address [address] [place] [address] Care Team Providers Care Inbound Ingredient Logistics Specialist Name Role Phone Nicko, Sammie JOHNSON Primary Care Provider [phone]- [phone] Loyda Glaser RN Unavailable [phone] Yasmin Ho MD Unavailable [phone] Encounter Details Date Type Department Care Team ([facility] st Contact Info) Description 12/08/2024 Orders Only GENERIC EXTERNAL DATA DEPARTMENT Provider, [...] Description 12/19/2024 9:00 AM EDT Office Visit [facility] MEDICINE [address] [place] [address] Sammie Maharaj MD [address] [place] [address] 02/25/2025 9:00 AM EDT Office Visit [facility] OPTOMETRY [address] [place] [address] Mckay, Darshana, OD [address] [place] [address] documented as of this encounter Procedures Procedure Name Priority Date/Time Associated Diagnosis Comments LACTIC ACID Routine 12/08/2024 1:12 AM EST documented in this encounter Results * Lactic Acid (12/08/2024 1:12 AM EST) Lactic Acid 1.6 0.5 - 2.0 mmol/L [facility] 12/08/2024 1:12 AM EST 12/08/2024 1:16 AM EST us Generic External Data Provider LAB BLOOD ORDERAB LES Final Result [facility] [address] [place] [address] [phone] documented in this encounter Visit Diagnoses Not on filedocumented in this encounter Additional Health Concerns Assessment Noted Time PHQ-9 Depression Total Score: 0 10/24/19 9:33 AM EST documented as of this encounter Care Teams Inbound Ingredient Logistics Specialist Relationship Specialty Start Date End Date Sammie Maharaj MD [address] [place] [address] PCP - General Family Medicine 10/10/18 Loyda Glaser, ERVIN [address] [place] [address] [place] Family Medicine 10/31/23 Yasmin Ho MD [address] [place] [address] Gastroenterology 08/29/24 Manuel Carpenter PA [facility] [address] [facility] [address] Neurology 08/29/24 Paola Tolentino NP [address] [address] Endocrinology 10/24/24 documented as of this encounter
--- OUTSIDE RECORDS SUMMARY | 2024-12-10 15:48 | XMS_ITS | Encounter Summary ---
Demographics Address [address] [facility] [facility] [address] [place] [address] Home Phone Mobile Phone Preferred Language Kyrgyz; Castilian Marital Status Single Sabianist Affiliation Unknown Race Unknown Ethnic Group Unknown Author Organization [facility] Address [address] [place] [address] Support Name Relationship Address Phone Orion Rubio Daughter [address] [facility] [facility] [address] [place] [address] Care Team Providers Care Vending Machine Repairer Name Role Phone Sammie Maharaj Primary Care Provider [phone] Encounter Details Date Type Department Care Team (Late st Contact Info) Description 12/04/2024 Telephone [facility] Transplant Department [address] [place] [address] Katy Boategn RN Social History Tobacco Use Types Packs/Day [...] to patient's daughter, will get labs at [facility] next Tuesday (or sooner if there for another provider) documented in this encounter Plan of Treatment Upcoming Encounters Date Type Department Care Team (Late st Contact Info) Description 01/08/2025 8:00 AM EDT Follow-Up [facility] Liver Transplant Services [address] [place] [address] Yasmin Ho MD [address] [place] [address] 03/22/2025 3:30 PM EDT Office Visit [facility] [address] [place] [address] Research Biostatistician: Natasha Rubalcava MD [address] [place] [address] 07/17/2025 8:00 AM EDT Office Visit [facility] [address] [place] [address] Research Biostatistician: Paola Vance MANAGER HYDRAULIC [address] [place] [address] 08/06/2025 8:00 AM EDT Office Visit [facility] [address] [place] [address] Manuel Carpenter PA [address] [place] [address] documented as of this encounter Visit Diagnoses Not on filedocumented in this encounter Care Teams Vending Machine Repairer Relationship Specialty Start Date End Date Sammie Maharaj: [phone] [address] [place] [address] PCP - General Family Medicine 05/15/18 documented as of this encounter
--- OUTSIDE RECORDS SUMMARY | 2024-12-10 15:48 | XMS_ITS | Encounter Summary ---
Author Organization [employer] Address [address] 7t [place] [address] Care Team Providers Care Veterinarian Name Role Phone Nicko, Sammie JOHNSON Primary Care Provider [phone]- [phone] Loyda Glaser RN Unavailable [phone] Yasmin Ho MD Unavailable [phone] Encounter Details Date Type Department Care Team (Late st Contact Info) Description 12/04/2024 Telephone [facility] [address] [place] [address] Rocio Bell MD [address] [place], [place] [phone] Social History Tobacco Use Types Packs/Day Years [...] Telephone Encounter - Isabella Christiansen RN - 12/10/2024 9:48 AM EST Duplicate message, addressed in other encounter from originally dated 12/03/24. Pt completed labs while at [facility] 12/08/24-12/10/24. Spoke to PCP in office, pt does not need to complete any other labs at this point. Recent labwork results from 12/07/24 faxed to [facility] Dr Ho at [phone]. Confirmation received. -- Dr Maharaj Please fax labs to [facility] Liver Gastro Doctor, number is on the area of specialists in Epic. Thank you. * Telephone Encounter - Isabella Christiansen RN - 12/04/2024 7:55 PM EST Addressed on other encounter from 12/03/24. Postponed other encounter/message to 12/10/24 to check if pt got labs done. -- Today's message from [facility] transplant clinic reviewed. Please call patient [...] Description 12/19/2024 9:00 AM EDT Office Visit [facility] [address] [place] [address] Sammie Maharaj MD [address] [place] [address] 02/25/2025 9:00 AM EDT Office Visit [facility] OPTOMETRY [address] [place] [address] MckayDarshana coppola, OD [address] [place] [address] documented as of this encounter Visit Diagnoses Not on filedocumented in this encounter Additional Health Concerns Assessment Noted Time PHQ-9 Depression Total Score: 0 10/24/19 9:33 AM EST documented as of this encounter Care Teams Veterinarian Relationship Specialty Start Date End Date Sammie Maharaj MD [address] [place] [address] PCP - General Family Medicine 10/10/18 Loyda Glaser RN [address] [place] [address] Director Of Sales Support Family Medicine 10/31/23 Yasmin Ho MD [address] [place] [phone] Gastroenterology 08/29/24 Manuel Carpenter PA [address] [address] Neurology 08/29/24 Paola Tolentino NP [address] [address] Endocrinology 10/24/24 documented as of this encounter
--- OUTSIDE RECORDS SUMMARY | 2024-12-10 15:48 | XMS_ITS | Encounter Summary ---
Author Organization [employer] Address [address] 7[address] [place] [address] Care Team Providers Care Manager Ambulatory Name Role Phone Sammie Maharaj MD Primary Care Provider [phone]- [phone] Loyda Glaser RN Unavailable [phone] Yasmin Ho MD Unavailable Reason for Visit * Reason Comments Med Refill Encounter Details Date Type Department Care Team (Late st Contact Info) Description 10/25/2023 Refill [facility] [address] [place], [place] [phone] Sammie Maharaj MD [address] [place], [place] [phone] Microcytic anemia Social History Tobacco Use Types [...] Description 12/19/2024 9:00 AM EDT Office Visit [facility] [address] [place] [address] Sammie Maharaj MD [address] [place] [address] 02/25/2025 9:00 AM EDT Office Visit [facility] OPTOMETRY [address] [place] [address] Mckay, Darshana, OD [address] [place] [address] documented as of this encounter Visit Diagnoses Diagnosis Microcytic anemia Unspecified iron deficiency anemia documented in this encounter Additional Health Concerns Assessment Noted Time PHQ-9 Depression Total Score: 0 07/28/20 23 9:42 AM EDT documented as of this encounter Care Teams Manager Ambulatory Relationship Specialty Start Date End Date Sammie Maharaj MD [address] [place] [address] PCP - General Family Medicine 10/10/18 Loyda Glaser, ERVIN [address] [place] [address] Science Job Titles Family Medicine 10/31/23 Yasmin Ho MD [address] [place] [address] Gastroenterology 08/29/24 Manuel Carpenter PA [facility] 55 [facility] [address] Neurology 08/29/24 Paola Tolentino, HEBERT [address] [address] Endocrinology 10/24/24 documented as of this encounter
--- OUTSIDE RECORDS SUMMARY | 2024-12-10 15:48 | XMS_ITS | Encounter Summary ---
Author Organization [employer] [facility] Address [address] [place] [address] 7t [place] [address] Care Team Providers Care Bowl Topper Name Role Phone Sammie Maharaj MD Primary Care Provider [phone]- [phone] Loyda Glaser RN Unavailable [phone] Yasmin Ho MD Unavailable Encounter Details Date Type Department Care Team (Late st Contact Info) Description 12/01/2022 Orders Only [facility] [address] [place] [address] [phone] Ericka Osei MD [address] [place], [place] [phone] Visual problems (Primary Dx) Social History Tobacco [...] Description 12/19/2024 9:00 AM EDT Office Visit [facility] [address] [place], [place] [phone] Sammie Maharaj MD [address] [place], [place] [phone] 02/25/2025 9:00 AM EDT Office Visit [facility] OPTOMETRY [address] [place] [address] [phone] Darshana Bashir, OD [address] [place] [address] documented as of this encounter Visit Diagnoses Diagnosis Visual problems- Primary documented in this encounter Care Teams Bowl Topper Relationship Specialty Start Date End Date Sammie Maharaj MD [address] [place], [place] [phone] PCP - General Family Medicine 10/10/18 Loyda Glaser, ERVIN [address] [place] [address] [phone] Card Grader Family Medicine 10/31/23 Yasmin Ho MD [address] [place] [address] [phone] Gastroenterology 08/29/24 Manuel Carpenter PA [facility] [address] [facility] [address] Neurology 08/29/24 Paola Tolentino NP [address] [address] Endocrinology 10/24/24 documented as of this encounter
--- OUTSIDE RECORDS SUMMARY | 2024-12-10 15:48 | XMS_ITS | Encounter Summary ---
Author Organization [employer] [facility] Address [address] [place] [address] 7t [place] [address] Care Team Providers Care Med Asst Name Role Phone Sammie Maharaj MD Primary Care Provider [phone] Loyda Glaser RN Unavailable [phone] Yasmin Ho MD Unavailable [phone] Encounter Details Date Type Department Care Team (Late st Contact Info) Description 11/11/2022 Abstract [facility] [address] [place] [address] Sammie Maharaj MD [address] [place] [address] [phone] Social History Tobacco Use Types Packs/Day Years [...] Department Care Team (Late Contact Info) Description 12/19/2024 9:00 AM EDT Office Visit [facility] [address] [place], [place] [phone] Sammie Maharaj MD [address] [place] [address] [phone] 02/25/2025 9:00 AM EDT Office Visit [facility] OPTOMETRY [address] [place] [address] [phone] Darshana Bashir, OD [address] [place] [address] documented as of this encounter Procedures Procedure Name Priority Date/Time Associated Diagnosis Comments PAP SMEAR Routine 03/25/2021 12:00 AM EDT documented in this encounter Results * Pap Smear (03/25/2021 12:00 AM EDT) Swab us Historical Provider LAB CYTOLOGY ORDERABLES F inal Result IMAGING documented in this encounter Visit Diagnoses Not on filedocumented in this encounter Care Teams Med Asst Relationship Specialty Start Date End Date Sammie Maharaj MD [address] [place] [address] PCP - General Family Medicine 10/10/18 Loyda Glaser RN [address] [place] [address] Towel Sorter Family Medicine 10/31/23 Yasmin Ho MD [address] [place] [address] Gastroenterology 08/29/24 Manuel Carpenter PA [facility] 55 [facility] [place] [address] Neurology 08/29/24 Paola Tolentino NP [address] [address] Endocrinology 10/24/24 documented as of this encounter
--- OUTSIDE RECORDS SUMMARY | 2024-12-10 15:48 | XMS_ITS ---
Demographics Address [address] [facility] [address] [place] [address] Home Phone Mobile Phone Preferred Language Korean; Castilian Marital Status Single Islam Affiliation Unknown Race Unknown Ethnic Group Unknown Author Organization [facility] Address [address] [place] [address] Support Name Relationship Address Phone Orion Rubio Daughter [address] [facility] [address] [place] [address] Care Team Providers Care Endo Tech Name Role Phone Sammie Maharaj Sujit Primary Care Provider [phone] Transplant Episode Liver Candidate [facility] ([place] [place]) - [facility] waitlisted on 12/30/2023 Marked as Active on 12/30/2023 Liver CoordinatorKaty Boateng RN Phone: N/A Fax: N/A Email: N/A Scores Score Value Updated Expires Exceptions/[place] sons CPRA Not available UNOS MELD 18 09/24/2024 12/23/2024 MELD (Calc) 18 09/11/2024 Craig Organ Diagnosis Organ 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
--- OUTSIDE RECORDS SUMMARY | 2024-12-10 15:48 | XMS_ITS | Encounter Summary ---
Author Organization [employer] Address [address] [facility] [address] [place] [address] Care Team Providers Care Tile Classifier Name Role Phone Sammie Maharaj MD Primary Care Provider Loyda Glaser RN Unavailable [phone] Yasmin Ho MD Unavailable [phone] Encounter Details Date Type Department Care Team (Late Contact Info) Description 05/16/2023 Orders Only [facility]S [address] [place] [address] Emily Marcial LPN Social History Tobacco Use [...] Description 12/19/2024 9:00 AM EDT Office Visit [facility] MEDICINE [address] [place], [place] [phone] Sammie Maharaj MD [address] [place], [place] [phone] 02/25/2025 9:00 AM EDT Office Visit [facility] OPTOMETRY [address] [place], [place] [phone] Darshana Bashir, SAM [address] [place] [address] documented as of this encounter Visit Diagnoses Not on filedocumented in this encounter Care Teams Tile Classifier Relationship Specialty Start Date End Date Sammie Maharaj MD [address] [place] [address] PCP - General Family Medicine 10/10/18 Loyda Glaser, ERVIN [address] [place] [id number] [employer] Family Medicine 10/31/23 Yasmin Ho MD [address] [place] [id number] Gastroenterology 08/29/24 Manuel Carpenter PA [facility] [address] [facility] [id number] Neurology 08/29/24 Paola Tolentino NP [address] [address] Endocrinology 10/24/24 documented as of this encounter
--- OUTSIDE RECORDS SUMMARY | 2024-12-10 15:48 | XMS_ITS | Clinical Summary ---
Author Organization [employer] Address [address] [place] [address] [address] [place] [address] Care Team Providers Care Rn Clinical Research Name Role Phone [place], Sammie JOHNSON Primary Care Provider [phone] Loyda Glaser RN Unavailable [phone] Yasmin Ho MD Unavailable [phone] Allergies Active Allergy Reactions Criticality Noted Date Comments Acetaminophen 09/09/2014 Other reaction(s): Rash Latex Rash Low 06/29/2023 Medications insulin glargine (Lantus SoloStar) 100 UNIT/ML penIndications:U ncontrolled type 2 diabetes mellitus with hyperglycemia, with long-term current use of insulin (CMS/HCC) Inject 18 Units under the skin at bedtime. 15 mL 3 4 Active zonisamide (Zonegran) 100 MG capsuleIndicatio ns:Complex partial seizure (CMS/HCC) Take 100 mg by mouth Once per day. Two tab po qhs Active ursodiol (Actigall) 250 MG tablet Take 1 tablet by mouth 3 times daily. 5 Active beta carotene (vitamin A) 3 MG (54635 UT) capsule Take 1 capsule by mouth Once per day. 5 Active predniSONE (Deltasone) 20 MG tablet Take 1 tablet (20 mg) by mouth Once per day for 5 days. 5 tablet 5 12/09/19 25 oxyCODONE (Roxicodone) 5 MG immediate release tabletIndication s:Intractable headache, unspecified chronicity pattern, unspecified headache type Take 1 tablet (5 mg) by mouth every 12 (twelve) hours if needed for severe pain for up to 3 days. 6 tablet 5 12/09/19 25 Active Problems Patient Care Coordination No te Formatting of this note migh t be different from the original. [facility] provider line [phone], called 09/29/23 Breanna Burleson [phone]. cell [phone] BASEBALL SCOUT services via BERENICE, BASEBALL SCOUT Laxmi Mas Problem Noted Date Diagnosed Date [...] if needed. I spoke with Liz at [facility] liver transplant clinic, explained the situation and ask them to run the pictures and case by school bus driver/teacher assistant in case this is not related to [...] Overview (06/01/2024): CT abd pelvis ordered by [facility] and dated 01/28/24 IMPRESSION: 1. A [...] appear significantly changed from 2021, possibly reactive. [facility] not from 02/24/24 Telephone Encounter - Katy Boateng RN 10:24 AM LVM for patient using linux security administrator, Ari [id number], about results of MRI and scheduling of [...] AM EST): CT abd pelvis ordered by [facility] and dated 01/28/24 IMPRESSION: 1. A [...] appear significantly changed from 2021, possibly reactive. [facility] not from 02/24/24 Telephone Encounter - Katy Boateng RN 10:24 AM LVM for patient using linux security administrator, [employer] [id number], about results of MRI and scheduling of [...] AM EDT): CT abd pelvis ordered by [facility] liver clinic and dated 01/28/24 IMPRESSION: [...] appear significantly changed from 2021, possibly reactive. [facility] not from 02/24/24 Telephone Encounter - Katy Boateng RN 10:24 AM LVM for patient using linux security administrator, [employer] [id number], about results of MRI and scheduling of [...] 11/14/2023 Overview (01/18/2024): -she has fired several front office coordinator in the past. I called [facility] provider line [phone], 09/29/23 and spoke to linda Burleson [phone]. He reported extensive hx of working it pt and she was on the waiting list for starvros. Her BASEBALL SCOUT will be Laxmi Mas her friend. -She has been approved for BASEBALL SCOUT hours but have not started yet as of 01/18/2024 Assessment & Plan (01/18/2024 9:17 AM EDT): -she has fired several front office coordinator in the past. I called [facility] provider line [phone], 09/29/23 and spoke to linda Burleson [phone]. He reported extensive hx of working it pt and she was on the waiting list for starvros. Her BASEBALL SCOUT will be Laxmi Mas her friend. -She has been approved for BASEBALL SCOUT hours but have not started yet as of 01/18/2024 Pain in hand and fingers 09/29/2023 Overview (01/18/2024): -refer to occupational therapy 01/18/2024 Assessment & Plan (09/29/2023 11:55 AM EST): No etiology on exam. Pt high risk for dyupetryns. Recommend warm wraps and rest. Other specified health status 07/21/2023 Overview (07/09/2024): -next physical exam due after 07/09/25 -eye care facilitated by [facility] -dental home is [facility] -health care proxy paperwork given 10/20/23. Filed 07/09/24 Assessment & Plan (10/24/2024 9:48 AM EST): -next physical exam due after 07/09/25 -eye care facilitated by [facility] -dental home is [facility] -health care proxy paperwork given 10/20/23. Filed 07/09/24 Assessment & Plan (07/09/2024 10:17 AM EDT): -next physical exam due after 07/09/25 -eye care facilitated by [facility] -dental home is [facility] -health care proxy paperwork given 10/20/23. Filed 07/09/24 Assessment & Plan (01/18/2024 9:16 AM EDT): -next physical exam due after 07/28/2024 -eye care facilitated by [facility] -dental home is none -health care proxy paperwork given 10/20/23 Assessment & Plan (10/20/2023 9:33 AM EST): -next physical exam due after 07/28/2024 -eye care facilitated by [facility] referral placed 09/29/23 -dental home is none -health care proxy paperwork given 10/20/23 Assessment & Plan (09/29/2023 11:46 AM EST): -next physical exam due after 07/28/2024 -eye care facilitated by [facility] referral placed 09/29/23 -dental home is none Assessment & Plan (07/28/2023 10:05 AM EDT): -next physical exam due after 07/28/2024 -eye care facilitated by [facility] -dental home is none Type 2 [...] from 18-14 by endo 04/2024 Seen by [facility] endocrinology 04/18/24 Hemoglobin A1c is falsely [...] freestyle lilia 3 CGM. Assessment & Plan (10/24/2024 9:48 AM EST): -U Mass 02/21/2024 to see endocinology Diabetes are controlled. -CGM training done 10/20/23 Lab Results Component Value Date HGBA1C 4.6 07/09/2024 HGBA1C 4.3 01/18/2024 HGBA1C 7.6 (A) 10/28/2023 Lab Results Component Value Date CREATININE 0.61 08/27/2024 EGFR >60 08/27/2024 MICROALBCREU TNP 07/28/2023 LDLCHOLCAL 118 (H) 07/28/2023 -[place]/Ar[place]: none -Statin therapy: none -anjali exam done 10/24/24 -Diabetic eye exam: referral requested 09/29/23 -Diabetic foot exam: deferred since pt did not want to take her socks off, 07/09/25 -Continue lifestyle modifications -Continue current medications -Decrease Lantus insulin from 18-14 by endo 04/2024 Seen by [facility] endocrinology 04/18/24 Hemoglobin A1c is falsely [...] approval for her to upgrade to [employer] lilia 3 CGM. Assessment & Plan (07/09/2024 [...] from 18-14 by endo 04/2024 Seen by [facility] endocrinology 04/18/24 Hemoglobin A1c is falsely [...] approval for her to upgrade to the [employer] lilia 3 CGM. Assessment & Plan (01/18/2024 [...] 2017 was negative. She is followed by [facility] Liver Clinic. -liver biopsy 2019 mild, [...] services with Dr. Yasmin Ho MD of [facility] GI 02/2024, note reviewed: She remains active [...] 2021, possibly reactive. -liver biopsy done at [facility] 05/01/24, results pending -liver biopsy results [...] Saw Transplant Hepatology and GI specialist at [facility] on 09/11/24. Per note, she remains active on LT waitlist with an updated MELD 3.0 of 19 based on blood work in April 2024. Etiology of her liver disease and progressive jaundice remains unclear despite prior MRI/MRCP and interval liver biopsy in May 2024 which was non-specific with non-specific findings which we reviewed with patient and [id number] again today. We recommended continuation of empiric [...] labs show elevated LFTs. Labs sent to school bus driver/teacher assistant. Due to increased bilirubin, labs were sent to school bus driver/teacher assistant who reports chronically elevated due to chol [...] 2017 was negative. She is followed by [facility] Liver Clinic. -liver biopsy 2019 mild, [...] services with Dr. Yasmin Ho MD of [facility] GI 02/2024, note reviewed: She remains active [...] 2021, possibly reactive. -liver biopsy done at [facility] 05/01/24, results pending -liver biopsy results [...] Saw Transplant Hepatology and GI specialist at [facility] on 09/11/24. Per note, she remains active on LT waitlist with an updated MELD 3.0 of 19 based on blood work in April 2024. Etiology of her liver disease and progressive jaundice remains unclear despite prior MRI/MRCP and interval liver biopsy in May 2024 which was non-specific with non-specific findings which we reviewed with patient and [id number] again today. We recommended continuation of empiric [...] labs show elevated LFTs. Labs sent to school bus driver/teacher assistant. Due to increased bilirubin, labs were sent to school bus driver/teacher assistant who reports chronically elevated due to chol [...] 2017 was negative. She is followed by [facility] Liver Clinic. -liver biopsy 2019 mild, [...] services with Dr. Yasmin Ho MD of [facility] GI 02/2024, note reviewed: She remains active [...] 2021, possibly reactive. -liver biopsy done at [facility] 05/01/24, results pending -liver biopsy results [...] Saw Transplant Hepatology and GI specialist at [facility] on 09/11/24. Per note, she remains active on LT waitlist with an updated MELD 3.0 of 19 based on blood work in April 2024. Etiology of her liver disease and progressive jaundice remains unclear despite prior MRI/MRCP and interval liver biopsy in May 2024 which was non-specific with non-specific findings which we reviewed with patient and [id number] again today. We recommended continuation of empiric [...] 2017 was negative. She is followed by [facility] Liver Clinic. -liver biopsy 2019 mild, [...] services with Dr. Yasmin Ho MD of [facility] GI 02/2024, note reviewed: She remains active [...] 2021, possibly reactive. -liver biopsy done at [facility] 05/01/24, results pending -liver biopsy results [...] not drive), baths or swimming. Awaiting new BASEBALL SCOUT provider. Daughter aware of how to call 911. Followed by neurologist, -followed by Dr. Jono Eden at [facility]. Next appointment 08/2024 [...] her prior hemorrhagic stroke. -Saw Neurologist at [facility] 08/20/24, Plan: continue ZNS 200 [...] not drive), baths or swimming. Awaiting new BASEBALL SCOUT provider. Daughter aware of how to call 911. Followed by neurologist, -followed by Dr. Jono Eden at [facility]. Next appointment 08/2024 -she self dc? d her aspirin. I recommended she called neurology to get refills on her medication -she has been seizure free with Zonisamide 200 mg nightly and ran out of supplies 6 months ago. I recommend to resume Zonisamide since her risk of recurrent seizure is over 60% due to her prior hemorrhagic stroke. -Saw Neurologist at [facility] 08/20/24, Plan: continue ZNS 200 mg daily and follow up in one year, or sooner if needed. -she has no idea if she is taking this. Med rec referral placed 10/24/24 Assessment & Plan [...] not drive), baths or swimming. Awaiting new BASEBALL SCOUT provider. Daughter aware of how to call 911. Followed by neurologist, -followed by Dr. Jono Eden at [facility]. Next appointment 08/2024 -she self dc? [...] -Has follow up on Aug 20 at [facility] Assessment & Plan (10/20/2023 8:57 [...] 2017 was negative. She is followed by [facility] Liver Clinic. -liver biopsy 2019 mild, [...] services with Dr. Yasmin Ho MD of [facility] GI 12/12/2023, note reviewed Cirrhosis: -Compensated: Yes [...] diet discussed. Avoid hepatotoxic agents. -Followed by: [facility] GI -continue ursodiol therapy given marked AP elevation and potential for AMA negative PCB. -transplant candidacy will be determined by multidisciplinary transplant committee after all appropriate testing has been performed. -Has follow up with liver transplant oracle ebs consultant on at [facility] -Per pt, On liver transplant [...] 2017 was negative. She is followed by [facility] Liver Clinic. -seen by Liver Transplant clinic [...] diet discussed. Avoid hepatotoxic agents. -Followed by: [facility] GI -continue ursodiol therapy given marked AP elevation and potential for AMA negative PCB. -transplant candidacy will be determined by multidisciplinary transplant committee after all appropriate testing has been performed. -call place by me to [facility] restorative care technician at [facility] [phone] to stress the urgency of BASEBALL SCOUT services and increase level of care. He [...] 2017 was negative. She is followed by [facility] Liver Clinic. -seen by Liver Transplant clinic [...] diet discussed. Avoid hepatotoxic agents. -Followed by: [facility] GI -continue ursodiol therapy given marked AP elevation and potential for AMA negative PCB. -transplant candidacy will be determined by multidisciplinary transplant committee after all appropriate testing has been performed. -call place by me to [facility] restorative care technician at [facility] [phone] cell [phone] to stress the urgency of BASEBALL SCOUT services and increase level of care. He [...] 2017 was negative. She is followed by [facility] Liver Clinic. The possibility for liver transplant [...] in her care. She has had multiple front office coordinator which she has fired and multiple case [...] in her care. She has had multiple front office coordinator which she has fired and multiple case [...] in her care. She has had multiple front office coordinator which she has fired and multiple case [...] in her care. She has had multiple front office coordinator which she has fired and multiple case [...] Date Type Department Care Team Description 12/10/2024 Patient Outreach [facility] MED [facility] PEDS [address] [place] [address] Sammie Maharaj MD Transition Of Care (Tcm) (HDF scheduled. ) 12/10/[address] [address] Sammie Maharaj MD Hospital Follow-up 12/08/2024 Orders Only GENERIC EXTERNAL DATA DEPARTMENT Provider, Generic External Data 12/07/2024 Orders Only GENERIC EXTERNAL DATA DEPARTMENT Provider, Generic External Data 12/07/[address] [address] Sammie Maharaj MD Nurse Triage 12/05/2024 2:00 PM EST Office Visit [facility] WALK[facility]IN [facility] [address] [place] [phone] Sammie Maharaj MD End stage liver disease (CMS/HCC) (Primary Dx); Intractable headache, unspecified chronicity pattern, unspecified headache type 12/05/[address] [address] Uma Jiménez, ERVIN 12/05/[address] [address] Sammie Maharaj MD Nurse Triage 12/04/2024 Telephone [facility] [address] [place] [phone] Rocio Bell MD 12/03/2024 11:00 AM EST Office Visit [facility] [address] [address] Rocio Bell MD Atopic dermatitis in adult (Primary Dx); End stage liver disease (CMS/HCC) 12/03/2024 Telephone [facility] MEDICINE [address] [place] [phone] Rosaura Almeida, ERVIN Results (Rocio Bell MD/12/03/2024 5:04 PM EST /Labs showed mild worsening of bili's and alk phos, rule out obstructive fissures or may be autoimmune hepatitis. /Her inflammatory markers are higher as well. She ideally should be seen by drafter assistant now or run these labs by school bus driver/teacher assistant, /I spoke with Maria L at [facility] hepatology/transplant clinic and unfortunately no one was available at the office at the time. /She will send this information to the covering providers and have then get back to us, ) 11/13/2024 Refill [facility] [address] [place] [address] Sammie Maharaj MD Tinea unguium 11/02/2024 9:00 AM EST Clinical Support [address] [address] Laya Horan, PharmD Type 2 diabetes mellitus with hyperglycemia, with long-term current use of insulin (CMS/HCC) (Primary Dx); Complex partial seizure (CMS/HCC); End stage liver disease (CMS/HCC) 10/24/2024 9:30 AM EST Office Visit [address] [address] Sammie Maharaj MD Complex partial seizure (CMS/HCC) (Primary Dx); End stage liver disease (CMS/HCC); Type 2 diabetes mellitus with hyperglycemia, with long-term current use of insulin (CMS/HCC); Complex care coordination; Abnormal CT of the abdomen; Other specified health status; Tray dover 10/24/2024 Travel 10/24/2024 Refill [facility] [address] [place] [address] Sammie Maharaj MD Microcytic anemia 10/23/2024 Telephone [facility] MEDICINE [address] [place] [address] Laya Azul MA 10/23/2024 Telephone [facility] MEDICINE [address] [place] [address] Laya Azul MA chartprep 09/26/2024 Refill [facility] [address] [place] [address] Sammie Maharaj MD Tinea unguium from Last 3 Months Immunizations Name Administration Dates Next Due DTaP, 5 pertussis antigens 04/03/2010 Hep A, Adult 05/01/2009,02/29/2008 Hep B, adult 09/29/2023,07/28/2023,07/13/2019 Hib ([facility]) 06/11/2009 Influenza injectable quadriv alent IIV4 with [...] Description 12/19/2024 9:00 AM EDT Office Visit [facility] MEDICINE [address] [place] [address] Sammie Maharaj MD [address] [place], [place] [phone] 02/25/2025 9:00 AM EDT Office Visit [facility] OPTOMETRY [address] [place], [place] [phone] Mckay, Darshana, OD [address] [place], [place] [phone] Health Maintenance Due Date Last Done Comments [...] LACTIC ACID Routine 12/08/2024 1:12 AM EST C-REACTIVE PROTEIN Routine 12/07/2024 7: 25 PM EST MAGNESIUM Routine 12/07/2024 7:25 PM EST BASIC METABOLIC PANEL Routine 12/07/2024 7:25 PM EST HEPATIC FUNCTION PANEL Routine 7:25 PM EST PROTHROMBIN TIME-INR Routine 12/07/2024 7:25 PM EST AMMONIA (P) Routine 12/07/2024 7:25 PM EST CBC WITH AUTO DIFFERENTIAL Routine 12/07/2024 7:25 PM EST SED RATE BY MODIFIED WESTERGREN Routine 12/07/2024 7:24 PM EST AMMONIA (P) Routine 12/03/2024 12:21 PM EST [...] hyperglycemia, with long-term current use of insulin ([facility]/HCC) BI MAMMOGRAM SCREENING TOMOSYNTHESIS BILATERAL Routine 09/06/2023 10:14 AM EST HEPATITIS C ANTIBODY Routine 07/28/2023 10:55 AM EDT Routine screening for STI (sexually transmitted infection) HIV ANTIBODY/ANTIGEN ([place] [facility]) Routine 07/28/2023 10:55 AM EDT PAP SMEAR Routine 03/25/2021 12:00 AM EDT from Last 3 Months or Most Recently Relevant to Health Maintenance Results * Lactic Acid (12/08/2024 1:12 AM EST) Pathologist [facility] Lactic Acid 1.6 0.5 - 2.0 mmol/L [facility] 12/08/2024 1:12 AM EST 12/08/2024 1:16 AM EST us Generic External Data Provider LAB BLOOD ORDERAB LES Final Result [facility] [address] [place] [phone] * (ABNORMAL) CBC auto differential (12/07/2024 7:25 PM EST) Only the most recent of2 resultswithin the time period is included. Pathologist [facility] White Blood Count 7.6 4.8 - 10.8 X10*3/uL [facility] Red Blood Count 3.43(L) 4.20 - 5.50 X10*6/uL [facility] Hemoglobin 11.1(L) 12.0 - 16.0 g/dl [facility] Hematocrit 31.0(L) 37.0 - 47.0 % [facility] Mean Corpuscular Volume 90.4 80.0 - 98.0 fL [facility] Mean Corpuscular Hemoglobin 32.4 27.0 - 33.0 pg [facility] Mean Corpuscular HGB Conc 35.8(H) 31.0 - 35.0 g/dl [facility] Red Cell Distribution Width 13.5 11.0 - 16.0 % [facility] Platelet Count 140(L) 160 - 400 X10*3/uL [facility] Mean Platelet Volume 12.4(H) 9.4 - 12.3 fL [facility] Neutrophils Percent Auto 86.3(H) 45 - 73 % [facility] Imm Gran Pct Auto 2.8(H) 0.0 - 0.4 % [facility] Lymphocytes Percent Auto 5.6(L) 20 - 40 % [facility] Monocytes Percent Auto 4.9 2 - 11 % [facility] Eosinophils Percent Auto 0.1 0 - 4 % [facility] Basophils Percent Auto 0.3 0 - 2 % [facility] NRBC Pct Auto 0.0 0.0 - 0.2 /100WBC [facility] Neutrophils Absolute Auto 6.6 2.0 - 8.3 x10*3/uL [facility] Imm Gran Abs Auto 0.21(H) 0.00 - 0.03 X10*3/uL [facility] Lymphocytes Absolute Auto 0.4(L) 1.2 - 4.9 X10*3/uL [facility] Monocytes Absolute Auto 0.4 0.1 - 1.2 X10*3/uL [facility] Eosinophils Absolute Auto 0.0 0.0 - 0.4 X10*3/uL [facility] Basophils Absolute Auto 0.0 0.0 - 0.2 X10*3/uL [facility] NRBC Abs Auto 0.000 0.0 - 0.012 X10*3/uL [facility] 12/07/2024 7:25 PM EST 12/07/2024 7:31 PM EST us Generic External Data Provider LAB BLOOD ORDERAB LES Final Result [facility] [address] [place] [phone] [phone] * (ABNORMAL) Prothrombin Time-INR (12/07/2024 7:25 PM EST) Prothrombin Time 19.7(H) 10.9 - 12.4 SEC [facility] INTERNATIONAL NORM RATIO 1.7(H) 0.9 - 1.1 [facility] Comment:INTERNATIONAL NORMAL IZED RATIO (INR) [...] ORDERAB LES Final Result Performing Organization Address City/[facility]/ZIP Co de Phone Number [facility] [address] [place] [phone] * (ABNORMAL) C-reactive Protein (12/07/2024 7:25 PM EST) Only the most recent of2 resultswithin the time period is included. C Reactive Protein 17.40(H) < or = 0.50 mg/dL [facility] 12/07/2024 7:25 PM EST 12/07/2024 7:31 PM EST us Generic External Data Provider LAB BLOOD ORDERAB LES Final Result Performing Organization Address City/[facility] Co de Phone Number [facility] [address] [place] [phone] * Magnesium (12/07/2024 7:25 PM EST) Magnesium 1.9 1.6 - 2.6 mg/dL [facility] 12/07/2024 7:25 PM EST 12/07/2024 7:31 PM EST Generic External Data Provider LAB BLOOD ORDERAB LES Final Result Performing Organization Address [facility] de Phone Number [facility] [address] [place] [phone] * (ABNORMAL) Ammonia, Plasma (12/07/2024 7:25 PM EST) Only the most recent of2 resultswithin the time period is included. Ammonia (P) 66(H) 13 - 55 umol/L [facility] 12/07/2024 7:25 PM EST 12/07/2024 7:31 PM EST Generic External Data Provider LAB BLOOD ORDERAB LES Final Result Performing Organization Address [facility] Phone Number [facility] [address] [place] [phone] * (ABNORMAL) Hepatic Function Panel (12/07/2024 7:25 PM EST) Only the most recent of3 resultswithin the time period is included. Bilirubin, Total 8.9(H) 0.0 - 1.0 mg/dL [facility] Comment:Mild Icterus. Bilirubin, Direct 7.2(H) 0.0 - 0.5 mg/dL [facility] Comment:Mild Icterus. Aspartate Amino Transferase 108(H) 5 - 31 U/L [facility] Alanine Aminotransferase 103(H) 0 - 31 U/L [facility] Total Protein 6.0(L) 6.5 - 8.0 g/dL [facility] Albumin Level 2.6(L) 3.5 - 5.0 g/dL [facility] Alkaline Phosphatase 831(H) 39 - 117 U/L [facility] 12/07/2024 7:25 PM EST 12/07/2024 7:31 PM EST us Generic External Data Provider LAB BLOOD ORDERAB LES Final Result Performing Organization Address City/[facility]/ZIP Co de Phone Number [facility] [address] [place] [address] [phone] * (ABNORMAL) Basic Metabolic Panel (12/07/2024 7:25 PM EST) Only the most recent of2 resultswithin the time period is included. Sodium 134(L) 135 - 145 mmol/L [facility] Potassium 3.5 3.3 - 5.1 mmol/L [facility] Chloride 104 96 - 108 mmol/L [facility] Carbon Dioxide 21(L) 22 - 29 mmol/L [facility] Anion Gap 13 12 - 20 [facility] Urea Nitrogen (BUN) 15 9 - 16 mg/dL [facility] Creatinine, Serum 0.63 0.5 - 1.4 mg/dL [facility] Creatinine Clr Calc Pharmacy 79.5 [facility] Comment:Provided height and weight: 144.78 cm,51.5 kg.eGFR (calculated from the MDRD study equation) and eCrCl(calculated from the Cockcroft-Gault equation) are based ondifferent parameters and may not yield comparable results.If eCrCl result is absurd, please check patient'sheight/weight. Estimated Glomerular Filt Rate >60 [facility] Comment:Chronic Kidney Disea se: Estimated GFR < 60 mL/min/1.59c7Vnglvo Kidney Disease: Estimated GFR < 15 mL/min/1.73m2 Glucose 311(H) 60 - 115 mg/dL [facility] Calcium 8.2(L) 8.4 - 10.2 mg/dL [facility] 12/07/2024 7:25 PM EST 12/07/2024 7:31 PM EST us Generic External Data Provider LAB BLOOD ORDERAB LES Final Result Performing Organization Address City/[facility]/ZIP Co de Phone Number [facility] [address] [place] [address] [phone] * (ABNORMAL) Sed Rate by Modified Delanoergren (12/07/2024 7:24 PM EST) Only the most recent of2 resultswithin the time period is included. Erythrocyte Sedimentation Rate 73(H) 0 - 20 MM/HR [facility] Comment:Patients with polycy themia and many hemoglobin abnormalitiesmay have depressed sed rates whereas patients with anemiamay have elevated sed rates. 12/07/2024 7:24 PM EST 12/07/2024 7:31 PM EST us Generic External Data Provider LAB BLOOD ORDERAB LES Final Result Performing Organization Address [facility]/ZIP Co de Phone Number [facility] [address] [place] [address] [phone] * Albumin, Random Urine W/Creatinine (11/05/2024 10:20 AM EST) Creatinine, Urine 59.34 mg/dL [facility] Microalbumin Urine <5.0 mg/L [facility] Microalbum Creatinine Ratio Ur TNP <30 ug/mg cr [facility] Comment:Unable to calculate albumin/creatinine ratio due to lowmicroalbumin or creatinine result. Urine 11/05/2024 10:2 0 AM EST 11/05/2024 11:21 AM EST us Sammie Maharaj MD LAB URINE ORDERABLES Final Result Performing Organization Address [facility]/ZIP Co de Phone Number [facility] [address] [place] [address] [phone] * (ABNORMAL) Lipid Panel, Standard (10/24/2024 9:59 AM EST) Triglycerides 91 <150 mg/dL [facility] Comment:Mild Icterus.Interpr et result with caution.Desirable Triglyceride: less than 150 mg/dLBorderline High Triglyceride 150-199 mg/dLHigh Triglyceride: 200-499 mg/dLVery High Triglyceride: greater than or equal to 5OO mg/dL Cholesterol 132 <200 mg/dL [facility] Comment:Mild Icterus.Interpr et result with caution.Desirable Cholesterol: less than 200 mg/dLBorderline High Cholesterol: 200-239 mg/dLHigh Cholesterol: greater than 239 mg/dL LDL Cholesterol Calculated 92 <100 mg/dL [facility] Comment:Desirable LDL: less than 100 mg/dLNear Optimal/Above Optimal LDL: 110- 129 mg/dLBorderline High LDL: 130-159 mg/dLHigh LDL: 160-189 mg/dLVery High LDL: greater than or equal to 190 mg/dL HDL Cholesterol 22(L) >40 mg/dL [facility] Comment:Desirable HDL: great er than 40 mg/dL Note: This HDL assay may give artificially low results in patients with liver disease. Blood Venous blood specimen / Unknown 10/24/2024 9:59 AM EST 10/24/2024 11:05 AM EST Sammie Maharaj MD LAB BLOOD ORDERABLES Final Result [facility] [address] [place] [phone] * POCT glycosylated hemoglobin (Hgb A1c) (07/09/2024 3:59 PM EDT) Hemoglobin A1C 4.6 4.0 - 6.0 % QC Media Lot # [id number] Lot# Expiration Date [id number] Blood Capillary blood specimen / Unknown 07/09/2024 3:59 PM EDT Sammie Maharaj MD POINT OF CARE TEST ENTER/E DIT ORDERABLES Final Result * BI Mammogram Screening Tomosynthesis Bilateral (09/06/2023 10:14 AM EST) Anatomical Region Laterality Modality Breast Bilateral Mammography 09/06/2023 10:1 4 AM EST Narrative 09/19/2023 10:41 AM EST ? [facility] ? [address] ?[place] [address] ? Mammography Report ? Signed ? Patient: Fabiano Chery,Aubrie ?MR#: M ?? [id number] ? : 1980 ?Acct:[id number] ? Age/Sex: 43 / F ?ADM Date: 09/06/23 ? Loc: HO.MAMMO ? Attending Dr: Sammie Maharaj MD ? Ordering Physician: Sammie Maharaj MD ?Results: 1N ?? egative ? Date of Service: 09/06/23 ?Follow Up: 1 Year From Orig ?? inal Mammogram ? Procedure(s): MM tomosynthesis screening BI ?? Accession Number(s): [id number] ? cc: Sammie Maharaj MD ? EXAMINATION: [...] 1037 ? DD/ 1014 ? TD/TT: ? Protective Signal Operator: ? Procedure Note Donotuseinterpreter, Image - 09/19/2023 [facility] [address] [place] [address] Mammography Report Signed Patient: Aubrie BrewerMR#: [id number] : 1980Acct:[id number] Age/Sex: 43 / FADM Date: 09/06/23 Loc: HO.MAMMO Attending Dr: Sammie Maharaj MD Ordering Physician: Sammie Maharaj MDResults: 1N egative Date of Service: 09/06/23Follow Up: 1 Year From Orig inal Mammogram Procedure(s): MM tomosynthesis screening BI Accession Number(s): [id number] cc: Sammie Maharaj MD EXAMINATION: MM SCREENING [...] in OV> 09/19/23 1037 DD/ 1014 TD/TT: Protective Signal Operator: Sammie Maharaj MD IMG BI PROCEDURES Final Re sult * Hepatitis C Ab (07/28/2023 10:55 AM EDT) Hepatitis C Antibody Nonreactive Nonreactive [facility] Comment:Antibodies to HCV no t detected; does not exclude early acuteHCV infection. Blood 07/28/2023 10:5 5 AM EDT 07/28/2023 1:11 PM EDT Sammie Maharaj MD LAB BLOOD ORDERABLES Final Result [facility] [address] [place] [phone] * HIV Ab/Ag ([facility]) (07/28/2023 10:55 AM EDT) HIV AB/AG Nonreactive Nonreactive [facility] Comment:HIV-1 p24 Ag and/or HIV-1/HIV-2 Ab not detected.A test result that is nonreactive does not exclude thepossibility of exposure to or infection with HIV-1 and/orHIV-2. Nonreactive results in this assay for individualswith prior exposure to HIV-1 and/or HIV-2 may be due toantigen and antibody levels that are below the limit ofdetection of this assay.The [employer]stream HIV Ag/Ab Combo assay result andsupplemental assay results should be interpreted inconjunction with the patient's clinical presentation,history and other laboratory results. If the results areinconsistent with clinical evidence, additional testing issuggested to confirm the result. 07/28/2023 10:5 5 AM EDT 07/28/2023 1:11 PM EDT Sammie Maharaj MD LAB BLOOD ORDERABLES Final Result [facility] [address] [place] [phone] * Pap Smear (03/25/2021 12:00 AM EDT) Swab Historical Provider LAB CYTOLOGY ORDERABLES F inal Result IMAGING from Last 3 Months or Most Recently Relevant to Health Maintenance Insurance [facility] * Guarantor: Aubrie Brewer Account Type Relation to Patient Date of Phone Billing Address Personal/Family Self [address] [address] Advance Directives Documents on File Type Date Recorded Patient Fire Officer Expl anation Advance Directives and Living Will 07/09/2024 Health Care Proxy 07/09/24 Care Teams Rn Clinical Research Relationship Specialty Start Date End Date Sammie Maharaj MD [address] [place] [address] PCP - General Family Medicine 10/10/18 Loyda Glaser, RN [address] [place] [address] Storage Battery Inspector And Tester Family Medicine 10/31/23 Yasmin Ho MD [address] [place] [address] Gastroenterology 08/29/24 Manuel Carpenter PA [address] [address] Neurology 08/29/24 Paola Tolentino SOFTWARE INTEGRATION DEVELOPER [address] [address] Endocrinology 10/24/24
--- OUTSIDE RECORDS SUMMARY | 2024-12-10 15:48 | XMS_ITS | Encounter Summary ---
Author Organization [employer] Address [address] [address] [place] [address] Care Team Providers Care Bakery Manager Name Role Phone Sammie Maharaj MD Primary Care Provider [phone] Loyda Glaser RN Unavailable [phone] Yasmin Ho MD Unavailable [phone] Reason for Visit * Reason Comments Med Refill Encounter Details Date Type Department Care Team (Late st Contact Info) Description 10/24/[address] [facility] [address] [place], [place] [phone] Sammie Maharaj MD [address] [place], [place] [phone] Microcytic anemia Social History Tobacco Use Types [...] Description 12/19/2024 9:00 AM EDT Office Visit [facility] [address] [place] [address] Sammie Maharaj MD [address] [place] [address] 02/25/2025 9:00 AM EDT Office Visit [facility] [address] [place] [address] Mckay, Darshana, OD [address] [place] [address] documented as of this encounter Visit Diagnoses Diagnosis Microcytic anemia Unspecified iron deficiency anemia documented in this encounter Additional Health Concerns Assessment Noted Time PHQ-9 Depression Total Score: 0 10/24/19 25 9:33 AM EST documented as of this encounter Care Teams Bakery Manager Relationship Specialty Start Date End Date Sammie Maharaj MD [address] [place] [address] PCP - General Family Medicine 10/10/18 Loyda Glaser, ERVIN [address] [place] [address] Supervisor Nutritional Yeast Family Medicine 10/31/23 Yasmin Ho MD [address] [place] [address] Gastroenterology 08/29/24 Manuel Carpenter PA [address] [address] Neurology 08/29/24 Paola Tolentino NP [address] [address] Endocrinology 10/24/24 documented as of this encounter
--- OUTSIDE RECORDS SUMMARY | 2024-12-10 15:48 | XMS_ITS | Encounter Summary ---
Author Organization [facility] Address [address] [address] [facility] [address] [facility] [address] 7[address] [place] [address] Care Team Providers Care Scanning Coordinator Name Role Phone Sammie Maharaj MD Primary Care Provider [phone] Loyda Glaser RN Unavailable [phone] Yasmin Ho MD Unavailable [phone] Reason for Visit * Reason Onset Date Comments Nurse Triage 12/05/2024 Encounter Details Date Type Department Care Team (Late st Contact Info) Description 12/05/2024 Telephone [facility] [address] [place], [place] [phone] Sammie Maharaj MD [address] [place], [place] [phone] Nurse Triage Social History Tobacco Use Types [...] RN - 12/05/2024 9:28 AM EST No service officer needed as this sql report writer speaks Citizen Of [place]. Call returned to Aubrie Chery to triage below. Pt placed Laxmi on the line, confirmed . Ptseen at [facility]. aLxmi reports Pt having onset of body pain and mouth pain since seen on Tuesday. Pt reports did get call from [facility] to notify ofplan for repeat blood work on 12/10/24. No follow up set up with them at this time. Pt reports havingnausea. No vomiting. Pt also endorses dizziness. Pt still having facial swelling as well. Reviewed [facility] operating hours and that wait times [...] Description 12/19/2024 9:00 AM EDT Office Visit [facility] [address] [place] [address] Sammie Maharaj MD [address] [place] [address] 02/25/2025 9:00 AM EDT Office Visit [facility] [address] [place] [address] Mckay, Darshana, OD [address] [place] [address] documented as of this encounter Visit Diagnoses Not on filedocumented in this encounter Additional Health Concerns Assessment Noted Time PHQ-9 Depression Total Score: 0 10/24/19 25 9:33 AM EST documented as of this encounter Care Teams Scanning Coordinator Relationship Specialty Start Date End Date Sammie Maharaj MD [address] [place] [address] PCP - General Family Medicine 10/10/18 Loyda Glaser, ERVIN [address] [place] [address] Diesel Engine Ii Pipe Fitter Family Medicine 10/31/23 Yasmin Ho MD [address] [place] [address] Gastroenterology 08/29/24 Manuel Carpenter PA [address] [address] Neurology 08/29/24 Paola Tolentino NP [address] [address] Endocrinology 10/24/24 documented as of this encounter
--- OUTSIDE RECORDS SUMMARY | 2024-12-10 15:48 | XMS_ITS | Encounter Summary ---
Demographics Address [address] [facility] [address] [place] [address] Home Phone Mobile Phone Preferred Language Prydeinig; Castilian Marital Status Single Shinto Affiliation Unknown Race Unknown Ethnic Group Unknown Author Organization [facility] Address [address] [place] [address] Support Name Relationship Address Phone Orion Rubio Daughter [address] [facility] [address] [place] [address] Care Team Providers Care Web Ui Developer Name Role Phone Sammie Maharaj Primary Care Provider [phone] Encounter Details Date Type Department Care Team (Late st Contact Info) Description 12/14/2023 Orders Only [facility] Interventional Radiology [address] [place] [address] Smith Manzo DO [address] [place] [address] Social History Tobacco Use Types Packs/Day Years [...] 01/08/2025 8:00 AM EDT Follow-Up [facility] Liver Transplant Services [address] [place] [address] Yasmin Ho MD [address] [place] [address] 03/22/2025 3:30 PM EDT Office Visit [facility] [address] [place] [address] New Account Interviewer: Natasha Rubalcava MD [address] [place] [address] 07/17/2025 8:00 AM EDT Office Visit [facility] [address] [place] [address] New Account Interviewer: Paola Vance NP [address] [place] [address] 08/06/2025 8:00 AM EDT Office Visit [facility] [address] [place] [address] Manuel Carpenter PA [address] [place] [address] documented as of this encounter Visit Diagnoses Not on filedocumented in this encounter Care Teams Web Ui Developer Relationship Specialty Start Date End Date Sammie Maharaj [address] [place] [address] PCP - General Family Medicine 05/15/18 documented as of this encounter
--- OUTSIDE RECORDS SUMMARY | 2024-12-10 15:48 | XMS_ITS | Encounter Summary ---
Demographics Address [address] [facility] [address] [place] [address] Home Phone Mobile Phone Preferred Language Syrian; Castilian Marital Status Single Hoahaoism Affiliation Unknown Race Unknown Ethnic Group Unknown Author Organization [facility] Address [address] [place] [address] Support Name Relationship Address Phone Orion Rubio Daughter [address] [facility] [address] [place] [address] Care Team Providers Care Diamond Sawer Name Role Phone Sammie Maharaj Primary Care Provider [phone] Encounter Details Date Type Department Care Team (Late st Contact Info) Description 09/20/2023 Orders Only [facility] Interventional Radiology [address] [place] [address] Ricardo Reyez MD [address] [place] [address] Social History Tobacco Use Types Packs/Day Years [...] Info) Description 01/08/2025 8:00 AM EDT Follow-Up [facility] Liver Transplant Services [address] [place] [address] Yasmin Ho MD [address] [place] [address] 03/22/2025 3:30 PM EDT Office Visit [facility] [address] [place] [address] Blow Torch Burner: Natasha Rubalcava MD [address] [place] [address] 07/17/2025 8:00 AM EDT Office Visit [facility] [address] [place] [address] Blow Torch Burner: Paola Vance NP [address] [place] [address] 08/06/2025 8:00 AM EDT Office Visit [facility]rology Clinic [address] [place] [address] Manuel Carpenter PA [address] [place] [address] documented as of this encounter Visit Diagnoses Not on filedocumented in this encounter Care Teams Diamond Sawer Relationship Specialty Start Date End Date Sammie Maharaj [address] [place] [address] PCP - General Family Medicine 05/15/18 documented as of this encounter
--- OUTSIDE RECORDS SUMMARY | 2024-12-10 15:48 | XMS_ITS | Encounter Summary ---
Demographics Address [address] [facility] [address] [place] [address] Home Phone Mobile Phone Preferred Language British; Castilian Marital Status Single Oriental Orthodox Affiliation Unknown Race Unknown Ethnic Group Unknown Author Organization [facility] Address [address] [place] [address] Support Name Relationship Address Phone Orion Rubio Daughter [address] [facility] [address] [place] [address] Care Team Providers Care Parts Sales Representative Name Role Phone Sammie Maharaj Primary Care Provider [phone] Encounter Details Date Type Department Care Team (Late st Contact Info) Description 11/04/[address] [facility] Interventional Radiology [address] [place] [address] Duncan Ragland MD [address] [place] [address] Social History Tobacco Use Types Packs/Day Years [...] Info) Description 01/08/2025 8:00 AM EDT Follow-Up [facility] Liver Transplant Services [address] [place] [address] Yasmin Ho MD [address] [place] [address] 03/22/2025 3:30 PM EDT Office Visit [facility] [address] [place] [address] Supervisor Open Hearth Stockyard: Natasha Rubalcava MD [address] [place] [address] 07/17/2025 8:00 AM EDT Office Visit [facility] [address] [place] [address] Supervisor [employer]: Paola Vance NP [address] [place] [address] 08/06/2025 8:00 AM EDT Office Visit [facility] Neurology Clinic [address] [place] [address] Manuel Carpenter PA [address] [place] [address] documented as of this encounter Visit Diagnoses Not on filedocumented in this encounter Care Teams Parts Sales Representative Relationship Specialty Start Date End Date Sammie Maharaj [address] [place] [address] PCP - General Family Medicine 05/15/18 documented as of this encounter
--- OUTSIDE RECORDS SUMMARY | 2024-12-10 15:48 | XMS_ITS | Encounter Summary ---
Author Organization [employer] Address [address] [facility] [address] 7t [place] [address] Care Team Providers Care Practice Architect Name Role Phone Clarendon, Sammie JOHNSON Primary Care Provider +1- [phone] Loyda Glaser RN Unavailable [phone] Yasmin Ho MD Unavailable [phone] Reason for Visit * Reason Onset Date Comments Results 12/03/2024 Rocio belle MD12/03/2024 5:04 PM EST Labs showed mild worsening of bili's and alk phos, rule out obstructive fissures or may be autoimmune hepatitis. Her inflammatory markers are higher as well. She ideally should be seen by airport tower controller now or run these labs by bicycle fitter, I spoke with Maria L at [facility] hepatology/transplant clinic and unfortunately no one was available at the office at the time. She will send this information to the covering providers and have then get back to us, Encounter Details Date Type Department Care Team (Late st Contact Info) Description 12/03/2024 Telephone [facility] MEDICINE [address] [place] [address] [id number] Rosaura Almeida, ERVIN Results (Rocio Bell MD/12/03/2024 5:04 PM EST /Labs showed mild worsening of bili's and alk phos, rule out obstructive fissures or may be autoimmune hepatitis. /Her inflammatory markers are higher as well. She ideally should be seen by airport tower controller now or run these labs by bicycle fitter, /I spoke with Maria L at [facility] hepatology/transplant clinic and unfortunately no one [...] Encounter - Isabella Christiansen RN - 12/10/2024 9:42 AM EST Pt completed labs while at [facility] [place]08[place]24-12/10/24. Spoke to PCP in office, pt does not need to complete any other labs at this point. Recent labwork results from 12/07/[address] [facility] Dr Ho at [phone]. Confirmation received. -- Dr Maharaj Please fax labs to [facility], number is on the area of specialists in Epic. Thank you. * Telephone Encounter - Isabella Christiansen RN - 12/04/2024 6:00 PM EST Please see other documentation from 12/04/[address] Bell and from [facility]. Dr Bell spoke with transplant clinic who [...] 8:00 PM EST Lab results faxed to [facility] Prov[facility] @[phone] for review and advise per note from [facility] provider today. Follow up TC tomorrow 12/04/24 to [facility] @ [phone] Receipt confirmed And PCP Nicko for plan of care [facility]plant [facility] [address] [place] [address] Yasmin Ho MD [address] [place] [address] ----- Message from Nurse Megan Jacob sent at 12/03/2024 5:22 PM EST ----- ----- Message ----- From: Rocio Bell MD Sent: 12/03/2024 5:04 PM EST To: Sammie Maharaj MD; # Labs showed mild worsening of bili's and alk phos, rule out obstructive fissures or may be autoimmune hepatitis. Her inflammatory markers are higher as well. She ideally should be seen by airport tower controller now or run these labs by bicycle fitter, I spoke with Maria L at [facility] hepatology/transplant clinic and unfortunately no one was available at the office at the time. She will send this information to the [facility] providers and have then get back to us, either the PCP, me or directed to the patient for additional POC. Please reach out to PCP or me for additional POC tomorrow afternoon. Follow-up with patient tomorrow and decide additional POC * Telephone Encounter - Rosaura Almeida RN - 12/03/2024 7:08 PM EST Lab results faxed to [facility] @[phone] for review and advise per note from [facility] provider today. Follow up TC tomorrow 12/04/24 to [facility] @ [phone] Receipt confirmed And PCP Clarendon for plan of care [facility]plant [facility] [address] [place] [address] Yasmin Ho MD [address] [place] [address] [id number] ----- Message from Nurse Megan Jacob sent at 12/03/2024 5:22 PM EST ----- ----- Message ----- From: Rocio Bell MD Sent: 12/03/2024 5:04 PM EST To: Sammie Maharaj MD; # Labs showed mild worsening of bili's and alk phos, rule out obstructive fissures or may be autoimmune hepatitis. Her inflammatory markers are higher as well. She ideally should be seen by airport tower controller now or run these labs by bicycle fitter, I spoke with Maria L at [facility] hepatology/transplant clinic and unfortunately no one was available at the office at the time. She will send this information to the [facility] providers and have then get back to [...] Description 12/19/2024 9:00 AM EDT Office Visit [facility] MEDICINE 230 [place] [address] Sammie Maharaj MD 230 [place] [address] 02/25/2025 9:00 AM EDT Office Visit [facility] OPTOMETRY [address] [place] [address] Mckay, Darshana, OD 230 [place] [address] documented as of this encounter Visit Diagnoses Not on filedocumented in this encounter Additional Health Concerns Assessment Noted Time PHQ-9 Depression Total Score: 0 10/24/19 25 9:33 AM EST documented as of this encounter Care Teams Practice Architect Relationship Specialty Start Date End Date Sammie Maharaj MD 230 [place] [address] PCP - General Family Medicine 10/10/18 Loyda Glaser, ERVIN [address] [place] [address] Rn Community Family Medicine 10/31/23 Yasmin Ho MD [address] [place] [address] Gastroenterology 08/29/24 Carpenter, Christopher S., PA [address] [address] Neurology 08/29/24 Paola Tolentino NP [address] [address] Endocrinology 10/24/24 documented as of this encounter
--- OUTSIDE RECORDS SUMMARY | 2024-12-10 15:48 | XMS_ITS | Encounter Summary ---
Author Organization [employer] [facility] Address [address] [facility] 7t [place] [address] Care Team Providers Care Geologist Name Role Phone Sammie Maharaj MD Primary Care Provider [phone]- [phone] Loyda Glaser RN Unavailable [phone] Yasmin Ho MD Unavailable Reason for Visit * Reason Onset Date Comments Nurse Triage 03/22/2023 Encounter Details Date Type Department Care Team (Late st Contact Info) Description 03/22/2023 Telephone [facility] MEDICINE 230 [place] [address] Sammie Maharaj MD 230 [place], [place] [phone] Nurse Triage Social History Tobacco Use Types [...] 03/22/2023 2:01 PM EDT Triage call with [employer] Statistical Engineer [place] [id number] Pt didn't answer left message to call [facility] triage line at [phone]. Triage call with Ship Mate Statistical Engineer [place] [id number] Pt answered, Pt wasn't able to say [...] Description 12/19/2024 9:00 AM EDT Office Visit [facility] MEDICINE [address] [place] [address] Sammie Maharaj MD 230 [place] [address] 02/25/2025 9:00 AM EDT Office Visit [facility] OPTOMETRY [address] [place] [address] Mckay, Darshana, OD 230 [place] [address] documented as of this encounter Visit Diagnoses Not on filedocumented in this encounter Care Teams Geologist Relationship Specialty Start Date End Date Sammie Maharaj MD [address] [place] [address] PCP - General Family Medicine 10/10/18 Loyda Glaser RN [address] [place] [address] Prosthetic Dentist Family Medicine 10/31/23 Yasmin Ho MD [address] [place] [address] Gastroenterology 08/29/24 Manuel Carpenter PA [address] [address] Neurology 08/29/24 Paola Tolentino NP [address] [address] Endocrinology 10/24/24 documented as of this encounter
--- OUTSIDE RECORDS SUMMARY | 2024-12-10 15:48 | XMS_ITS | Encounter Summary ---
Author Organization [employer] Address [address] [facility] [address] 7t [place] [address] Care Team Providers Care Drill Operator Name Role Phone Nicko, Sammie JOHNSON Primary Care Provider [phone]- [phone] Loyda Glaser RN Unavailable [phone] Yasmin Ho MD Unavailable [phone] Encounter Details Date Type Department Care Team (Late st Contact Info) Description 12/05/2024 Telephone [facility] MEDICINE 230 [place] [address] Uma Jiménez, ERVIN Social History Tobacco Use [...] Triage nurse recommended pt to come to [facility] to be evaluated which pt agreed to. Pt came inand was evaluated by a provider at the [facility] today. Pt is to f/u with [...] Description 12/19/2024 9:00 AM EDT Office Visit [facility] MEDICINE [address] [place] [address] Sammie Maharaj MD 230 [place], [place] [phone] 02/25/2025 9:00 AM EDT Office Visit [facility] OPTOMETRY [address] [place] [address] Mckay, Darshana, OD 230 [place] [address] documented as of this encounter Visit Diagnoses Not on filedocumented in this encounter Additional Health Concerns Assessment Noted Time PHQ-9 Depression Total Score: 0 10/24/19 9:33 AM EST documented as of this encounter Care Teams Drill Operator Relationship Specialty Start Date End Date Sammie Maharaj MD 230 [place] [address] PCP - General Family Medicine 10/10/18 Loyda Glaser RN [address] [place] [address] Plastic Finisher Family Medicine 10/31/23 Yasmin Ho MD [address] [place] [address] Gastroenterology 08/29/24 Manuel Carpenter PA [facility] [address] [facility] [address] Neurology 08/29/24 Paola Tolentino NP [address] [address] Endocrinology 10/24/24 documented as of this encounter
--- OUTSIDE RECORDS SUMMARY | 2024-12-10 15:48 | XMS_ITS | Encounter Summary ---
Author Organization [employer] Address [address] [facility] [address] 7t [place] [address] Care Team Providers Care Paid Search Marketing Strategist Name Role Phone Nicko, Sammie JOHNSON Primary Care Provider [phone]- [phone] Loyda Glaser RN Unavailable [phone] Yasmin Ho MD Unavailable [phone] Reason for Visit * Reason Comments Med Refill Encounter Details Date Type Department Care Team (Late st Contact Info) Description 11/18/2023 Refill [facility] 230 [place] [address] Tara Carlisle, DOMENICO Tinea unguium Social History [...] Description 12/19/2024 9:00 AM EDT Office Visit [facility] 230 [place] [address] Sammie Maharaj MD 230 [place] [address] 02/25/2025 9:00 AM EDT Office Visit [facility] OPTOMETRY [address] [place] [address] Mckay, Darshana, OD 230 [place] [address] documented as of this encounter Visit Diagnoses Diagnosis Tinea unguium Dermatophytosis of nail documented in this encounter Additional Health Concerns Assessment Noted Time PHQ-9 Depression Total Score: 0 07/28/20 23 9:42 AM EDT documented as of this encounter Care Teams Paid Search Marketing Strategist Relationship Specialty Start Date End Date Sammie Maharaj MD [address] [place] [address] PCP - General Family Medicine 10/10/18 Loyda Glaser, RN [address] [place] [address] Engraver Picture Family Medicine 10/31/23 Yasmin Ho MD [address] [place] [address] Gastroenterology 08/29/24 Manuel Carpenter PA [address] [address] Neurology 08/29/24 Paola Tolentino NP [address] [address] Endocrinology 10/24/24 documented as of this encounter
--- OUTSIDE RECORDS SUMMARY | 2024-12-10 15:48 | XMS_ITS | Encounter Summary ---
Author Organization [employer] [facility] Address [address] [facility] [address] 7t [place] [address] Care Team Providers Care Physician Pediatrician Name Role Phone Sammie Maharaj MD Primary Care Provider [phone]- [phone] Loyda Glaser RN Unavailable [phone] Yasmin Ho MD Unavailable [phone] Reason for Visit * Reason Onset Date Comments Nurse Triage 12/07/2024 Encounter Details Date Type Department Care Team (Late st Contact Info) Description 12/07/2024 Telephone [facility] MEDICINE 230 [place], [place] [phone] Sammie Maharaj MD 230 [place], [place] [phone] Nurse Triage Social History Tobacco Use Types [...] AM EST Triage call returned with BLS #[id number] Raya. Daughter does not require propellant assembler. Daughter called directly. Patient reports yellow crusting [...] become worse * Telephone Encounter - Josie Mcgregoriago - 12/07/2024 11:41 AM EST Symptoms: Face Swelling, Ear Discharge Outcome: Schedule a same-day appointment or talk to a nurse or provider today Reason: Caller denied all higher acuity questions The caller accepted this outcome. [phone] documented in this encounter Plan of Treatment Upcoming Encounters Date Type Department Care Team (Late st Contact Info) Description 12/19/2024 9:00 AM EDT Office Visit [facility] MEDICINE 230 [place] [address] Sammie Maharaj MD 230 [place] [address] 02/25/2025 9:00 AM EDT Office Visit [facility] OPTOMETRY [address] [place] [address] Mckay, Darshana, OD 230 [place] [address] documented as of this encounter Visit Diagnoses Not on filedocumented in this encounter Additional Health Concerns Assessment Noted Time PHQ-9 Depression Total Score: 0 10/24/19 25 9:33 AM EST documented as of this encounter Care Teams Physician Pediatrician Relationship Specialty Start Date End Date Sammie Maharaj MD 230 [place] [address] PCP - General Family Medicine 10/10/18 Loyda Glaser, RN [address] [place] [address] Grinding Mill Operator Family Medicine 10/31/23 Yasmin Ho MD [address] [place] [address] Gastroenterology 08/29/24 Manuel Carpenter PA [address] [address] Neurology 08/29/24 Paola Tolentino, HEBERT [address] [address] Endocrinology 10/24/24 documented as of this encounter
--- OUTSIDE RECORDS SUMMARY | 2024-12-10 15:48 | XMS_ITS | Encounter Summary ---
Author Organization [employer] Address [address] [facility] 7t [place] [address] Care Team Providers Care Manager Medical Name Role Phone Nicko, Sammie JOHNSON Primary Care Provider [phone]- [phone] Loyda Glaser RN Unavailable [phone] Yasmin Ho MD Unavailable [phone] Reason for Visit * Reason Onset Date Comments No Show 04/21/2023 Encounter Details Date Type Department Care Team (Late st Contact Info) Description 04/21/2023 Telephone [facility] MEDICINE 230 [place] [address] Hansa Chung RN 230 [place] [address] No Show Social History Tobacco Use Types [...] and declined as she is traveling to [facility] tomorrow morning and whill not be [...] 04/21/2023 12:30 PM EDT Call received from [facility], regarding critical lab result. Pt glucose [...] Description 12/19/2024 9:00 AM EDT Office Visit [facility] MEDICINE 230 [place] [address] Sammie Maharaj MD 230 [place] [address] 02/25/2025 9:00 AM EDT Office Visit [facility] OPTOMETRY [address] [place] [address] Darshana Bashir OD 230 [place] [address] documented as of this encounter Visit Diagnoses Not on filedocumented in this encounter Care Teams Manager Medical Relationship Specialty Start Date End Date Sammie Maharaj MD 230 [place] [address] PCP - General Family Medicine 10/10/18 Loyda Glaser, RN 230 [place] [address] Packaging Sales Consultant Family Medicine 10/31/23 Yasmin Ho MD [address] [place] [address] Gastroenterology 08/29/24 Manuel Carpenter PA [address] [address] Neurology 08/29/24 Paola Tolentino, HEBERT [address] [address] Endocrinology 10/24/24 documented as of this encounter
--- OUTSIDE RECORDS SUMMARY | 2024-12-10 15:48 | XMS_ITS | Encounter Summary ---
Demographics Address 17 [facility] 2 [place] [address] Home Phone Mobile Phone Preferred Language Afghan; Castilian Marital Status Single Zoroastrian Affiliation Unknown Race Unknown Ethnic Group Unknown Author Organization [facility] Address [address] [place] [address] Support Name Relationship Address Phone Orion Rubio Daughter 17 [facility] [address] [place] [address] Care Team Providers Care Well Puller Name Role Phone Sammie Maharaj Primary Care Provider [phone] Encounter Details Date Type Department Care Team (Late st Contact Info) Description 10/27/[address] [facility] Interventional Radiology 55 [place] [address] Enzo Conner MD 55 [place] [address] Social History Tobacco Use Types Packs/Day Years [...] Description 01/08/2025 8:00 AM EDT Follow-Up [facility] Liver Transplant Services 55 [place] [address] Yasmin Ho MD 55 [place] [address] 03/22/2025 3:30 PM EDT Office Visit [facility] [address] [place] [address] Agricultural Mechanic: Natasha Rubalcava MD [address] [place] [address] 07/17/2025 8:00 AM EDT Office Visit [facility] [address] [place] [address] Agricultural Mechanic: Paola Vance ROCK DUSTER [address] [place] [address] 08/06/2025 8:00 AM EDT Office Visit [facility] Neurology Clinic [address] [place] [address] Manuel Carpenter PA [address] [place] [address] documented as of this encounter Visit Diagnoses Not on filedocumented in this encounter Care Teams Well Puller Relationship Specialty Start Date End Date Sammie Maharaj: [id number] [address] [place] [address] PCP - General Family Medicine 05/15/18 documented as of this encounter
--- OUTSIDE RECORDS SUMMARY | 2024-12-10 15:48 | XMS_ITS | Encounter Summary ---
Demographics Address 17 [facility] 2 [place] [address] Home Phone Mobile Phone Preferred Language Burkinan; Castilian Marital Status Single Quaker Affiliation Unknown Race Unknown Ethnic Group Unknown Author Organization [facility] Address [address] [place] [address] Support Name Relationship Address Phone Orion Rubio Daughter 17 [facility] [address] [place] [address] Care Team Providers Care Business Systems Advisor Name Role Phone Sammie Maharaj Primary Care Provider [phone]- [phone] Encounter Details Date Type Department Care Team (Late st Contact Info) Description 11/03/2023 Orders Only [facility] Interventional Radiology [address] [place] [address] Duncan Ragland MD [address] [place] [address] Social History Tobacco Use Types Packs/Day Years [...] [facility] 55 [place] [address] Yasmin Ho MD [address] [place] [address] 03/22/2025 3:30 PM EDT Office Visit [facility] Diabetes Clinic [address] [place] [address] Waxed Bag Machine Operator: Natasha Rubalcava MD [address] [place] [address] 07/17/2025 8:00 AM EDT Office Visit [facility] [address] [place] [address] Waxed Bag Machine Operator: Paola Vance NP [address] [place] [address] 08/06/2025 8:00 AM EDT Office Visit [facility] Neurology Clinic [address] [place] [address] Manuel Carpenter PA [address] [place] [address] documented as of this encounter Visit Diagnoses Not on filedocumented in this encounter Care Teams Business Systems Advisor Relationship Specialty Start Date End Date Sammie Maharaj [address] [place] [address] PCP - General Family Medicine 05/15/18 documented as of this encounter
--- OUTSIDE RECORDS SUMMARY | 2024-12-10 15:48 | XMS_ITS | Encounter Summary ---
Demographics Address 17 [facility] 2 [place] [address] Home Phone Mobile Phone Preferred Language Taiwanese; Castilian Marital Status Single Muslim Affiliation Unknown Race Unknown Ethnic Group Unknown Author Organization [facility] Address [address] [place] [address] Support Name Relationship Address Phone Orion Rubio Daughter 17 [facility] [address] [place] [address] Care Team Providers Care Face Boss Name Role Phone Sammie Maharaj Sujit Primary Care Provider [phone] Encounter Details Date Type Department Care Team (Late st Contact Info) Description 07/13/2017 Transplant Conversio n Encounter [facility] Health Information Management [address] [place] [address] Provider, [facility] Social History Tobacco Use Types Packs/Day Years [...] Follow-Up [facility] 55 [place] [address] Yasmin Ho MD [address] [place] [address] 03/22/2025 3:30 PM EDT Office Visit [facility] Diabetes [facility] 55 [place] [address] Metal Sprayer: Natasha Rubalcava MD [address] [place] [address] 07/17/2025 8:00 AM EDT Office Visit [facility] 55 [place] [address] Metal Sprayer: Paola Vance SWAGING MACHINE ADJUSTER [address] [place] [address] 08/06/2025 8:00 AM EDT Office Visit [facility] Neurology Clinic 55 [place] [address] Manuel Carepnter PA 55 [place] [address] documented as of this encounter Visit Diagnoses Not on filedocumented in this encounter Care Teams Face Boss Relationship Specialty Start Date End Date Sammie Maharaj: [id number] [address] [place] [address] PCP - General Family Medicine 05/15/18 documented as of this encounter
--- OUTSIDE RECORDS SUMMARY | 2024-12-10 15:48 | XMS_ITS | Encounter Summary ---
Demographics Address 17 [facility] [address] [place] [address] Home Phone Mobile Phone Preferred Language Moldovan; Castilian Marital Status Single Baptism Affiliation Unknown Race Unknown Ethnic Group Unknown Author Organization [facility] Address [address] [place] [address] Support Name Relationship Address Phone Orion Rubio Daughter 17 [facility] [address] [place] [address] Care Team Providers Care Soil Scientist Name Role Phone Sammie Maharaj Primary Care Provider [phone]- [phone] Encounter Details Date Type Department Care Team (Late st Contact Info) Description 12/04/2024 Orders Only [facility] Transplant Department 55 [place] [address] Katy Boateng RN Cryptogenic cirrhosis (CMS/HCC) (HCC) [...] Info) Description 01/08/2025 8:00 AM EDT Follow-Up [facility] Liver Transplant Services 55 [place] [address] Yasmin Ho MD 55 [place] [address] 03/22/2025 3:30 PM EDT Office Visit [facility] Diabetes Clinic [address] [place] [address] Portfolio Specialist: Natasha Rubalcava MD 55 [place] [address] 07/17/2025 8:00 AM EDT Office Visit [facility] Diabetes [address] [address] Portfolio Specialist: Paola Vance NP [address] [place] [address] 08/06/2025 8:00 AM EDT Office Visit [facility] Neurology Clinic [address] [place] [address] Manuel Carpenter PA [address] [place] [address] Scheduled Orders Name Type Priority Associated Diagnoses Orde r Schedule AFP Tumor Marker Lab Routine Cryptogenic cirrhosis (CMS/HCC) (HCC) Liver disease Expected: 12/04/2024, Expires: 12/04/2025 documented as of this encounter Visit Diagnoses Diagnosis 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
--- OUTSIDE RECORDS SUMMARY | 2024-12-10 15:48 | XMS_ITS | Encounter Summary ---
Author Organization [employer] [facility] Address [address] [place] [address] Care Team Providers Care Cable Placer Name Role Phone Sammie Maharaj MD Primary Care Provider [phone]- [phone] Loyda Glaser RN Unavailable [phone] Yasmin Ho MD Unavailable Reason for Visit * Reason Onset Date Comments Referral 12/01/2022 Encounter Details Date Type Department Care Team (Late st Contact Info) Description 12/01/2022 Telephone [facility] MEDICINE [address] [place] [address] Sammie Maharaj MD [address] [place], [place] [phone] Referral Social History Tobacco Use Types Packs/Day [...] [facility] Please contact pt at [phone] or Becca [phone] documented in this encounter Plan of Treatment Upcoming Encounters Date Type Department Care Team (Late st Contact Info) Description 12/19/2024 9:00 AM EDT Office Visit [facility] MEDICINE [address] [place] [address] Sammie Maharaj MD [address] [place] [address] 02/25/2025 9:00 AM EDT Office Visit [facility] OPTOMETRY [address] [place] [address] Mckay, Darshana, OD [address] [place] [address] documented as of this encounter Visit Diagnoses Not on filedocumented in this encounter Care Teams Cable Placer Relationship Specialty Start Date End Date Sammie Maharaj MD [address] [place] [address] PCP - General Family Medicine 10/10/18 Loyda Glaser, RN [address] [place] [address] Manual Tester Family Medicine 10/31/23 Yasmin Ho MD [address] [place] [address] Gastroenterology 08/29/24 Manuel Carpenter PA [address] [address] Neurology 08/29/24 Paola Tolentino NP [address] [address] Endocrinology 10/24/24 documented as of this encounter
--- OUTSIDE RECORDS SUMMARY | 2024-12-10 15:48 | XMS_ITS | Encounter Summary ---
Author Organization [employer] Address [address] 7[address] [place] [address] Care Team Providers Care Senior Energy Market Coordinator Name Role Phone Sammie Maharaj MD Primary Care Provider [phone]- [phone] Loyda Glaser RN Unavailable [phone] Yasmin Ho MD Unavailable Reason for Visit * Reason Comments Headache Encounter Details Date Type Department Care Team (Late st Contact Info) Description 12/05/2024 2:00 PM EST Office Visit [facility] [address] [place], [place] [phone] Sammie Maharaj MD [address] [place], [place] [phone] End stage liver disease (CMS/HCC) (Primary Dx); [...] Headache. Follows with Dr. Jono Eden at [facility] neurology, last seen 08/20/24, has follow-up in 08/2025. Per triage: reports Pt having onset of body pain and mouth pain since seen on Tuesday. Pt reports did get call from [facility] to notify of plan for repeat blood work on 12/10/24. No follow up set up with them at this time. Pt reports having nausea. No vomiting. Pt also endorses dizziness. Pt still having facial swelling as well. Originally saw Dr. Bell on 12/03/24 for rash, labs show elevated LFTs. Labs sent to bobbin coil winder. Office Visit on 12/03/2024 Component Date Value [...] to increased bilirubin, labs were sent to bobbin coil winder who reports chronically elevated due to chol [...] 2017 was negative. She is followed by [facility] Liver Clinic. -liver biopsy 2019 [...] services with Dr. Yasmin Ho MD of [facility] 02/2024, note reviewed: She remains active [...] 2021, possibly reactive. -liver biopsy done at [facility] 05/01/24, results pending -liver biopsy [...] Saw Transplant Hepatology and GI specialist at [facility] on 09/11/24. Per note, she remains active onLT waitlist with an updated MELD 3.0 of 19 based on blood work in April 2024. Etiology of her liver disease and progressive jaundice remains unclear despite prior MRI/MRCP and interval liver biopsy inAugust 2023 which was non-specific with non-specific findings which we reviewed with patient and [id number] again today. We recommended continuation of empiric [...] labs show elevated LFTs. Labs sent to bobbin coil winder. Due to increased bilirubin, labs were sent to bobbin coil winder who reports chronically elevated dueto chol angiopathy [...] -Has follow-up with Neurologist. -Reordered labs from [facility] coil [facility]. -ER precautions discussed. -Seek medical attention for [...] 2017 was negative. She is followed by [facility]. -liver biopsy 2018 mild, grade [...] services with Dr. Yasmin Ho MD of [facility] 02/2024, note reviewed: She remains active [...] 2021, possibly reactive. -liver biopsy done at [facility] 05/01/24, results pending -liver biopsy [...] Saw Transplant Hepatology and GI specialist at [facility] on 09/11/24. Per note, she remains active onLT waitlist with an updated MELD 3.0 of 19 based on blood work in April 2024. Etiology of her liver disease and progressive jaundice remains unclear despite prior MRI/MRCP and interval liver biopsy inAugust 2023 which was non-specific with non-specific findings which we reviewed with patient and [id number] again today. We recommended continuation of empiric [...] labs show elevated LFTs. Labs sent to bobbin coil winder. Due to increased bilirubin, labs were sent to bobbin coil winder who reports chronically elevated dueto chol angiopathy [...] Description 12/19/2024 9:00 AM EDT Office Visit [facility] MEDICINE [address] [place] [address] Sammie Maharaj MD [address] [place] [address] 02/25/2025 9:00 AM EDT Office Visit [facility] OPTOMETRY [address] [place] [address] Darshana Bashir, OD [address] [place] [address] Scheduled Orders Name Type Priority Associated Diagnoses [...] documented as of this encounter Care Teams Senior Energy Market Coordinator Relationship Specialty Start Date End Date Sammie Maharaj MD [address] [place] [address] PCP - General Family Medicine 10/10/18 Loyda Glaser, ERVIN [address] [place] [address] Deputy Prosecuting Attorney Family Medicine 10/31/23 Yasmin Ho MD [address] [place] [address] Gastroenterology 08/29/24 Manuel Carpenter PA [facility] 55 [facility] [address] Neurology 08/29/24 Paola Tolentino NP [address] [address] Endocrinology 10/24/24 documented as of this encounter
--- OUTSIDE RECORDS SUMMARY | 2024-12-10 15:48 | XMS_ITS | Encounter Summary ---
Author Organization [employer] [facility] Address [address] 7[address] [place] [address] Care Team Providers Care Press Secretary Name Role Phone Sammie Maharaj MD Primary Care Provider [phone]- [phone] Loyda Glaser RN Unavailable [phone] Yasmin Ho MD Unavailable Reason for Visit * Reason Onset Date Comments Appointment Request 10/20/2023 Encounter Details Date Type Department Care Team ([facility] st Contact Info) Description 10/20/2023 Telephone [facility] MEDICINE [address] [place] [address] Sammie Maharaj MD 230 [place], [place] [phone] Appointment Request Social History Tobacco Use Types [...] and reschedule appt for 11/03/2023 @ 9:30 casualty underwriter did cancel per patients request documented in this encounter Plan of Treatment Upcoming Encounters Date Type Department Care Team (Late st Contact Info) Description 12/19/2024 9:00 AM EDT Office Visit [facility] MEDICINE [address] [place] [address] Sammie Maharaj MD [address] [place] [address] 02/25/2025 9:00 AM EDT Office Visit [facility] OPTOMETRY [address] [place] [address] Mckay, Darshana, OD [address] [place] [address] documented as of this encounter Visit Diagnoses Not on filedocumented in this encounter Additional Health Concerns Assessment Noted Time PHQ-9 Depression Total Score: 0 07/28/20 23 9:42 AM EDT documented as of this encounter Care Teams Press Secretary Relationship Specialty Start Date End Date Sammie Maharaj MD [address] [place] [address] PCP - General Family Medicine 10/10/18 Loyda Glaser, RN [address] [place] [address] Consumer Affairs Manager Family Medicine 10/31/23 Yasmin Ho MD [address] [place] [phone] Gastroenterology 08/29/24 Manuel Carpenter PA [facility] [address] [facility] [address] Neurology 08/29/24 Paola Tolentino NP [address] [address] Endocrinology 10/24/24 documented as of this encounter
[2024-12-11 10:58] LABS: Alpha Fetoprotein 3.6 ng/mL
== END 2024-12-10 13:21 | disposition home or self-care (01) ==
LOC: HO.LAB 13:20
PROVIDERS: PCP Family Medicine; Visit Provider Internal Medicine
DX: K74.69 Other cirrhosis of liver (principal)
CPT/HCPCS: 36415; 80053; 82105; 85007; 85025; 85027; 85610

== ENCOUNTER 2024-12-24 07:34 | Outpatient (REF) | payer OTHER, SELFPAY ==
[2024-12-24 07:45] LABS: MANUAL DIFF FLAG NO
[2024-12-24 08:32] LABS: Basophils Percent Auto 0.6 % (0-2); Eosinophils Absolute Auto 0.1 X10*3/uL (0.0-0.4); Eosinophils Percent Auto 2.8 % (0-4); Hematocrit 35.1 % (37.0-47.0); Hemoglobin 11.6 g/dl (12.0-16.0); Imm Gran Abs Auto 0.02 X10*3/uL (0.00-0.03); Imm Gran Pct Auto 0.4 % (0.0-0.4); Lymphocytes Absolute Auto 0.8 X10*3/uL (1.2-4.9); Mean Corpuscular Hemoglobin 31.9 pg (27.0-33.0); Mean Corpuscular Volume 96.4 fL (80.0-98.0); Monocytes Absolute Auto 0.4 X10*3/uL (0.1-1.2); Monocytes Percent Auto 7.1 % (2-11); Neutrophils Absolute Auto 3.6 x10*3/uL (2.0-8.3); Neutrophils Percent Auto 73.1 % (45-73); Red Blood Count 3.64 X10*6/uL (4.20-5.50); White Blood Count 4.9 X10*3/uL (4.8-10.8)
[2024-12-24 08:35] LABS: Mean Platelet Volume 12.8 fL (9.4-12.3); Platelet Count 124 X10*3/uL (160-400)
[2024-12-24 08:40] LABS: Prothrombin Time 12.2 SEC (10.9-12.4)
[2024-12-24 10:03] LABS: Alanine Aminotransferase 83 U/L (0-31); Alkaline Phosphatase 726 U/L (39-117); Anion Gap 11 (12-20); Aspartate Amino Transferase 98 U/L (5-31); Bilirubin Total 6.7 mg/dL (0.0-1.0); Blood Urea Nitrogen 13 mg/dL (9-16); Calcium 8.8 mg/dL (8.4-10.2); Carbon Dioxide 18 mmol/L (22-29); Chloride 116 mmol/L (96-108); Estimated Glomerular Filt Rate > 60; Glucose Random 102 mg/dL (60-115); Potassium 3.3 mmol/L (3.3-5.1); Sodium 142 mmol/L (135-145); Total Protein 6.7 g/dL (6.5-8.0)
== END 2024-12-24 07:35 | disposition home or self-care (01) ==
LOC: HO.LAB 07:34
PROVIDERS: PCP Family Medicine; Visit Provider Internal Medicine
DX: K74.69 Other cirrhosis of liver (principal)
CPT/HCPCS: 36415; 80053; 85025; 85610

== ENCOUNTER 2025-01-07 13:45 | Outpatient (REF) | payer OTHER, SELFPAY ==
--- NOTE | ~2025-01-07 | CT_ITS ---
CLINICAL HISTORY: CT LIVER [address] abdomen with contrast Comparison: MR/IN/SR - MR ABDOMEN WO/W CON - 05/23/24 08:13 EDT MR/IN/SR - MR ABDOMEN WO/W CON - 02/10/24 08:38 EDT Findings: No consolidation at the lung bases. Cholelithiasis. No gallbladder wall thickening or pericholecystic fluid. No dilation of the common bile duct. Unchanged intrahepatic biliary ductal dilatation in hepatic segment VII. Cirrhotic liver status post TIPS. The TIPS is patent. No abnormal enhancement in the liver. The portal vein is enlarged secondary to portal hypertension. There are peripheral calcifications of the portal and splenic veins. There are varices, including esophageal varices. Closure devices in the upper abdomen favored to be related to varices. Mild periportal edema, also present on the prior studies Splenomegaly, measuring 19.0 cm in craniocaudal dimension, previously measuring 17.9 cm. The other solid organs are unremarkable. No bowel wall thickening or dilation. No aneurysm. No calcified atherosclerotic disease. No lymphadenopathy. No ascites. No acute osseous abnormality. Impression: Cirrhosis status post TIPS. Unchanged intrahepatic biliary ductal dilatation in hepatic segment VII. No liver lesions. Mild increase in splenomegaly. This document has been electronically signed by: Isabela Graves MD on 01/08/2025 15:53:02
[2025-01-07] MEDS: iohexoL 350 MG/ML 75 ML INFUS..BTL 85 ML IV (14:23)
--- OUTSIDE RECORDS SUMMARY | 2025-01-07 15:30 | XMS_ITS | Encounter Summary ---
Author Organization [employer] [facility] Address [address] [place] [address] 7t [place] [address] Care Team Providers Care Corporate Executive Name Role Phone [place], Sammie JOHNSON Primary Care Provider [phone]- [phone] Loyda Glaser RN Unavailable [phone] Yasmin Ho MD Unavailable [phone] Encounter Details Date Type Department Care Team (Late st Contact Info) Description 12/01/2022 Orders Only [facility] MEDICINE [address] [place] [address] Ericka Osei MD [address] [place], [place] [phone] Visual problems (Primary Dx) Social History Tobacco [...] 9:00 AM EDT Office Visit [facility] OPTOMETRY [address] [place], [place] [phone] Mckay, Darshana, OD [address] [place] [address] 03/25/2025 9:45 AM EDT Office Visit [facility] MEDICINE [address] [place] [address] Sammie Maharaj MD [address] [place] [address] documented as of this encounter Visit Diagnoses Diagnosis Visual problems- Primary documented in this encounter Care Teams Corporate Executive Relationship Specialty Start Date End Date Sammie Maharaj MD [address] [place] [address] PCP - General Family Medicine 10/10/18 Loyda Glaser, RN [address] [place] [address] Parole Board Member Family Medicine 10/31/23 Yasmin Ho MD [address] [place] [address] Gastroenterology 08/29/24 Manuel Carpenter PA [facility] [address] [facility] [address] Neurology 08/29/24 Paola Tolentino NP [address] [address] Endocrinology 10/24/24 [facility] Psychology Psychology 12/19/24 documented as of this encounter
--- OUTSIDE RECORDS SUMMARY | 2025-01-07 15:30 | XMS_ITS | Encounter Summary ---
Author Organization [employer] Address [address] 7[address] [place] [address] Care Team Providers Care Hearing Specialist Name Role Phone Sammie Maharaj MD Primary Care Provider [phone]- [phone] Loyda Glaser RN Unavailable [phone] Yasmin Ho MD Unavailable [phone] Reason for Visit * Reason Comments Med Refill Encounter Details Date Type Department Care Team (Late st Contact Info) Description 12/25/[address] [facility] [address] [place], [place] [phone] Sammie Maharaj MD [address] [place], [place] [phone] Tinea unguium Social History Tobacco Use Types [...] 02/25/2025 9:00 AM EDT Office Visit [facility] OPTOMETRY [address] [place] [address] Mckay, Darshana, OD [address] [place] [address] 03/25/2025 9:45 AM EDT Office Visit [facility] MEDICINE [address] [place] [address] Sammie Maharaj MD [address] [place] [address] documented as of this encounter Visit Diagnoses Diagnosis Tinea unguium Dermatophytosis of nail documented in this encounter Additional Health Concerns Assessment Noted Time PHQ-9 Depression Total Score: 0 10/24/19 25 9:33 AM EST documented as of this encounter Care Teams Hearing Specialist Relationship Specialty Start Date End Date Sammie Maharaj MD [address] [place] [address] PCP - General Family Medicine 10/10/18 Loyda Glaser RN [address] [place] [address] Playground Supervisor Family Medicine 10/31/23 Yasmin Ho MD [address] [place] [address] Gastroenterology 08/29/24 Manuel Carpenter PA [address] [address] Neurology 08/29/24 Paola Tolentino, ROAD BUILDER [address] [address] Endocrinology 10/24/24 [facility] Psychology Psychology 12/19/24 documented as of this encounter
--- OUTSIDE RECORDS SUMMARY | 2025-01-07 15:30 | XMS_ITS | Clinical Summary ---
Demographics Address [address] [facility] [address] [place] [address] Home Phone Mobile Phone Preferred Language Uzbek; Castilian Marital Status Single Rastafari Affiliation Unknown Race Unknown Ethnic Group Unknown Author Organization [facility] Address [address] [place] [address] Support Name Relationship Address Phone Orion Rubio Daughter [address] [facility] [address] [place] [address] Care Team Providers Care River Transportation Worker Name Role Phone Kenney Maharajgus Beckett Primary Care Provider [phone] Allergies Active Allergy Reactions Criticality Noted Date [...] Capsule(s) By Mouth Daily 3 Active FreeStyle [place] Lite meter TEST BLOOD SUGAR THREE TIMES DAILY 4 Active FreeStyle [place] 2 [place] misc 4 Active FreeStyle [place] 2 Sensor kit 4 Active TRUEplus Lancets lancet 33 gauge TEST BLOOD SUGAR THREE TIMES DAILY 4 Active ciclopirox (PENLAC) 8 % solution SMARTSIG:Topi ramirez Every Night 3 Active metoprolol tartrate (LOPRESSOR) 50 mg tabletIndicatio ns:Encounter for pre-transplant evaluation for liver transplant Take 1 tablet (50 mg) by mouth 12 hours prior to exam. Take 1 tablet (50 mg) by mouth 1 hour prior to exam. 2 tablet 4 Active cholecalciferol (VITAMIN D3) 1,250 mcg (50,000 unit) capsule TAKE 1 CAPSULE BY MOUTH ONE TIME PER WEEK 8 capsule 4 Active FreeStyle [place] 3 [facility] Use to monitor blood sugars. E11.9 1 each 05/15/2024 9:09 AM EDT 4 Active FreeStyle [place] 3 Sensor deviceIndicatio ns:Type 2 diabetes mellitus without complication, with long-term current use of insulin (HCC) Change sensor every 14 days. E11.9 2 each 11 07/25/2024 6:52 PM EDT 4 Active FreeStyle [place] 3 Plus Sensor deviceIndicatio ns:Type 2 diabetes mellitus without complication, with long-term current use of insulin (HCC) Change sensor every 15 days. E11.65 [...] MOUTH ONCE A DAY. 60 capsule 5 01/14/20 25 Active Lantus Solostar U-100 Insulin 100 unit/mL (3 mL) pen injection Inject 18 Units under the skin nightly. 15 mL 11 5 Active predniSONE (DELTASONE) 20 mg tablet Take 2 tablets (40 mg total) by mouth once a day for 7 days. 14 tablet 5 12/25/19 25 Active Problems Problem Noted Date Diagnosed Date Hyperlipidemia 11/15/2024 Type 2 diabetes mellitus 11/19/2021 Overview (11/14/2024): -U Mass 02/21/2024 to see endocinology Diabetes are controlled. -CGM training done 1/11/24 Lab Results Component Value Date HGBA1C 4.6 [...] approval for her to upgrade to the Sazneoyle charlotte 3 CGM. BPPV (benign paroxysmal positional [...] Encounters Date Type Department Care Team Description 01/04/2025 Orders Only [facility] Transplant Department [address] [place] [address] [phone] Katy Boateng RN Cryptogenic cirrhosis (Primary Dx) 01/04/2025 Orders Only [facility] Transplant Department [address] [place] [address] [phone] Katy Boateng RN Cryptogenic cirrhosis (Primary Dx) 12/27/2024 Abstract [facility] Transplant Department [address] [place] [address] 50346 Yasmin oH MD 12/21/2024 Orders Only [facility] Interventional Radiology [address] [place] [address] 27989 Mateusz Wilkinson DO 12/21/2024 Orders Only [facility] Transplant Department [address] [place] [address] 84461 Katy Boateng RN Cryptogenic cirrhosis (Primary Dx) 12/17/2024 Refill [facility] ACC Building Diabetes Clinic [address] [place] [address] 48073 Side Laster: Kaylee Rodriguez NP 12/17/2024 Telephone [facility] Transplant Department [address] [place] [address] 88182 Katy Boateng RN 12/17/2024 Orders Only [facility] Transplant Department [address] [place] [address] 66153 Katy Boateng RN Cryptogenic cirrhosis (Primary Dx) 12/14/2024 Orders Only [facility] Transplant Department [address] [place] [address] 63475 Katy Boateng RN Cryptogenic cirrhosis (Primary Dx) 12/14/2024 Results Follow-Up [facility] Liver Transplant Services [address] [place] [address] [phone] Katy Boateng, ERVIN 12/13/2024 Abstract [facility] Transplant Department [address] [place] [address] Yasmin Ho MD 12/10/2024 Orders Only [facility] Transplant Department [address] [place] [address] [phone] Katy Boateng, ERVIN Cryptogenic cirrhosis (Primary Dx) 12/04/2024 Telephone [facility] Transplant Department [address] [place] [address] [phone] Katy Boateng RN 12/04/2024 Orders Only [facility] Transplant Department [address] [place] [address] [phone] Katy Boateng RN Cryptogenic cirrhosis (Primary Dx); Liver disease 11/28/2024 Telephone [facility] Transplant Department [address] [place] [address] [phone] Katy Boateng RN 11/14/2024 10:00 AM EST Social Work [facility] Liver Transplant Services [address] [place] [address] [phone] Marissa De La Cruz [facility] 11/14/2024 8:00 AM EST Office Visit [facility] Building Diabetes Clinic [address] [place] [address] [phone] Side Laster: Paola Vance NP Type 2 diabetes mellitus without complication, with long-term current use of insulin (Primary Dx) 11/13/2024 Refill [facility] Liver Transplant Services [address] [place] [address] [phone] Yasmin Ho MD 10/24/2024 Refill [facility] Liver Transplant Services [address] [place] [address] 56067 Yasmin Ho MD 10/11/2024 Refill [facility] Liver Transplant Services [address] [place] [address] Yasmin Ho MD from Last 3 Months Immunizations Immunization Administration [...] Info) Description 01/08/2025 8:00 AM EDT Follow-Up [facility] Liver Transplant Services [address] [place] [address] 94324 Yasmin Ho MD [address] [place] [address] 03/22/2025 3:30 PM EDT Office Visit [facility] Diabetes [facility] [address] [place] [address] 75972 Side Laster: Natasha Rubalcava MD [address] [place] [address] 88774 07/17/2025 8:00 AM EDT Office Visit [facility] Diabetes [facility] [address] [place] [address] 02388 Side Laster: Paola Vance NP [address] [place] [address] 08/06/2025 8:00 AM EDT Office Visit [facility] Neurology Clinic [address] [place] [address] 10494 Manuel Carpenter PA [address] [place] [address] 51541 Health Maintenance Due Date Last Done Comments HPV and Pap Smear 1981 Ophthalmology Exam 1991 Varicella Vaccines (1 of 2 - 13+ 2-dose series) 1994 10/21/2023 Mammogram 2021 Cervical Cancer Screening 03/25/2024 Pap Smear 03/25/2024 03/25/2021 Alcohol/Substance Use Screening 10/10/2024 Depression Screening and Follow-Up 10/10/2024 Social Drivers of Health Karime ual [...] 1-dose 75+ series) 2056 HIV Screening Completed 09/20/2023, 12/11/2020 Hepatitis C Screening Completed 09/20/2023 , 01/15/2014, 03/30/2010, Additional history exists Hepatitis B Vaccines Completed 09/29/2023, 07/28/2023, 07/13/2019, Additional history exists COVID-19 Vaccine Completed 07/09/2024, , 03/17/2021 Influenza Vaccine Completed 07/09/2024, , 06/25/2022, Additional history exists Procedures * Due to [place] [employer] Medical law, this organization might not be sharing negative HIV tests. Procedure Name Priority Date/Time Associated Diagnosis Comments LIVER PRE EXTERNAL PANEL Routine 12/24/2024 7:43 AM EDT LIVER PRE EXTERNAL PANEL Routine 12/10/2024 1:52 PM EST POCT GLYCOSYLATED HEMOGLOBIN (HGB A1C) Routine 11/14/2024 7:40 AM EST COMPREHENSIVE METABOLIC PANEL Routine 09/11/2024 9:08 AM EST Liver disease MICROALBUMIN, RANDOM URINE WITH CREATININE Routine 04/26/2024 4:22 PM EDT Type 2 diabetes mellitus without complication, with long-term current use of insulin HEPATITIS C ANTIBODY W/REFLEX TO HCV RNA, QUANTITATIVE PCR Routine 09/20/2023 12:40 PM EST Encounter for pre-transplant evaluation for liver transplant from Last 3 Months or Most Recently Relevant to Health Maintenance Results * Due to [place] state law, this organization might not be sharing negative HIV tests. * LIVER PRE EXTERNAL PANEL (12/24/2024 7:43 AM EDT) Only the most recent of2 resultswithin the time period is included. Sodium 142 mmol/L [facility] Potassium 3.3 [facility] Chloride 116 [facility] Carbon Dioxide 18 [facility] Glucose 102 [facility] BUN 13 mg/dL [facility] Creatinine 0.53 mg/dL [facility] Calcium 8.8 mg/dL [facility] Total Protein 6.7 g/dL [facility] Albumin 3.0 g/dL [facility] Bilirubin, Total 6.7 mg/dL [facility] Alkaline Phosphatase 726 U/L [facility] AST 98 U/L [facility] ALT 83 U/L [facility] WBC 4.9 10*3/uL [facility] Hgb 11.6 [facility] Hematocrit 35.1 % [facility] Platelets 124 10*3/uL [facility] INR 1.00 [facility] 12/24/2024 7:43 AM EDT us Yasmin Ho MD LAB BLOOD ORDERABLES Final R esult [facility] [address] [place] [address] * POCT Glycosylated Hemoglobin (HGB A1C), interfaced (11/14/2024 7:40 AM EST) Hemoglobin A1C, POCT 4.2 <=5.6 % 11/14/2024 8:12 AM EST [facility] Comment: A1C Recommendation for Non- Adults with Diabetes: <7.0% ADA 2011 Standards of Medical Care in Diabetes Blood 11/14/2024 7:40 AM EST 11/14/2024 8:12 AM EST us Paola Tolentino ICT CUSTOMER SUPPORT OFFICER LAB POCT ORDERABLES - DEVICE Final Result [facility] [address] [place] [address], * (ABNORMAL) Comprehensive Metabolic Panel (09/11/2024 9:08 AM EST) NA 142 135 - 145 mmol/L 09/11/2024 10:02 AM EST [facility] K 3.6 3.5 - 5.3 mmol/L 09/11/2024 10:02 AM EST [facility] Cl 110(H) 98 - 107 mmol/L 09/11/2024 10:02 AM EST [facility] CO2 19(L) 22 - 32 mmol/L 09/11/2024 10:02 AM EST [facility] Anion Gap 13 5 - 15 09/11/2024 10:02 AM EST [facility] Glucose 242(H) 65 - 99 mg/dL 09/11/2024 10:02 AM EST [facility] Creatinine 0.67 0.50 - 1.20 mg/dL 09/11/2024 10:02 AM EST [facility] Calcium 8.8 8.6 - 10.5 mg/dL 09/11/2024 10:02 AM EST [facility] Total Protein 6.6 6.0 - 8.0 g/dL 09/11/2024 10:02 AM EST [facility] Albumin 3.3(L) 3.5 - 5.2 g/dL 09/11/2024 10:02 AM EST [facility] Bilirubin, Total 8.7(H) 0.2 - 1.2 mg/dL 09/11/2024 10:02 AM EST [facility] Alkaline Phosphatase 1,141(H) 35 - 129 U/L 09/11/2024 10:02 AM EST [facility] AST 122(H) 10 - 40 U/L 09/11/2024 10:02 AM EST [facility] ALT 105(H) 10 - 40 U/L 09/11/2024 10:02 AM EST [facility] BUN 18 7 - 23 mg/dL 09/11/2024 10:02 AM EST [facility] eGFR >90 >=60 mL/min/1 .73m2 09/11/2024 10:02 AM EST [facility] Comment:The estimated glomer ular [...] - 4.2 g/dL 09/11/2024 10:02 AM EST [facility] A/G Ratio 1.0(L) 1.5 - 3.0 09/11/2024 10:02 AM EST [facility] Blood Structure of peripheral vein / Unknown Venipuncture / Unknown 09/11/2024 9:08 AM EST 09/11/2024 9:25 AM EST us Yasmin Ho MD LAB BLOOD ORDERABLES Final R esult [facility] [address] [place] [address], * Microalbumin, Random Urine with Creatinine (04/26/2024 4:22 PM EDT) Microalbumin, Urine <2.0 mg/dL 04/26/2024 5:20 PM EDT [facility] Creatinine, Urine 69 15 - 278 mg/dL 04/26/2024 5:20 PM EDT [facility] Microalb/Creat Ratio, Random Urine 04/26/2024 5:20 PM EDT [facility] Comment: < 1.0 mcg/mgCr Microalbumin Reference Range: Normal ? <30 mcg/mg Creatinine Microalbuminuria ? 30-300 mcg/mg Creatinine Clinical Albuminuria >300 mcg/mg Creatinine Reference: ADA Guideline. Diabetes Care. 2004;27 (suppl 1) Urine Voided urine specimen / Unknown Non-Blood Collection / Unknown 04/26/2024 4:22 PM EDT 04/26/2024 4:35 PM EDT Natasha Kramre MD LAB URINE ORDERABLES Final Resul t [facility] [address] [place] [address], * Hepatitis C Antibody w/Reflex to PCR (09/20/2023 12:40 PM EST) Hepatitis C Antibody NON-REACT VIVEK NON-REACT VIVEK 09/21/2023 6:41 AM EST [facility] Comment: HCV antibody was non-reactive. There is no laboratory evidence of HCV infection. In most cases, no further action is required. However, if recent HCV exposure is suspected, a test for HCV RNA (test code 40340) is suggested. For additional information please refer to http://education.LAN-Power/faq/KFR05i1 (This link is being provided for informational/ educational purposes only.) Blood Structure of peripheral vein / Unknown Venipuncture / Unknown 09/20/2023 12:40 PM EST 09/20/2023 1:07 PM EST Narrative [facility] 09/21/2023 6:41 AM EST [facility] Received Date: Yasmin Ho MD LAB BLOOD ORDERABLES Final R esult [facility] [address] [facility] [address] Floor, [place] [address], [place] [phone] [facility] [address], [address] [place] [address], [place] [phone] from Last 3 Months or Most Recently Relevant to Health Maintenance Insurance Advance Directives Documents on File Type Date Recorded Patient Gold Nib Grinder Expl anation Health Care Proxy 10/26/2023 12:55 PM 10-10 Advance Directive 01/22/2014 12:00 AM Adva nce Care Directives Advance Directive 04/03/2010 12:00 AM luba begum Dec Making (Adv.Dir) * Presumed Full Code (Latest Code Status on File) Date Activated Date Inactivated Comments 05/15/2024 12:15 PM 05/16/2024 2:39 AM Care Teams River Transportation Worker Relationship Specialty Start Date End Date Sammie Maharaj [address] [place] [address] 30461 PCP - General Family Medicine 05/15/18
--- OUTSIDE RECORDS SUMMARY | 2025-01-07 15:30 | XMS_ITS | Encounter Summary ---
Demographics Address [address] [facility] [address] [place] [address] Home Phone Mobile Phone Preferred Language Montenegrin; Castilian Marital Status Single Mosque Affiliation Unknown Race Unknown Ethnic Group Unknown Author Organization [facility] Address [address] [place] [address] Support Name Relationship Address Phone Orion Rubio Daughter [address] [facility] [address] [place] [address] Care Team Providers Care Certified Dietary Manager Name Role Phone Sammie Maharaj Primary Care Provider [phone] Encounter Details Date Type Department Care Team (Late st Contact Info) Description 12/21/2024 Orders Only [facility] Interventional Radiology [address] [place] [address] Mateusz Wilkinson DO [address] [place] [address] Social History Tobacco Use Types Packs/Day Years [...] Info) Description 01/08/2025 8:00 AM EDT Follow-Up [facility] Liver Transplant Services [address] [place] [address] Yasmin Ho MD [address] [place] [address] 03/22/2025 3:30 PM EDT Office Visit [facility] Diabetes Clinic [address] [place] [address] 33250 Youth Pastor: Natasha Rubalcava MD [address] [place] [address] 024[address] 07/17/2025 8:00 AM EDT Office Visit [facility] Diabetes Clinic [address] [place] [address] 05257 Youth Pastor: Paola Vance NP [address] [place] [address] 08/06/2025 8:00 AM EDT Office Visit [facility] Neurology Clinic [address] [place] [address] 24088 Manuel Carpenter PA [address] [place] [address] 64078 documented as of this encounter Visit Diagnoses Not on filedocumented in this encounter Care Teams Certified Dietary Manager Relationship Specialty Start Date End Date Sammie Maharaj: [phone] [address] [place] [address] 79381 PCP - General Family Medicine 05/15/18 documented as of this encounter
--- OUTSIDE RECORDS SUMMARY | 2025-01-07 15:30 | XMS_ITS | Encounter Summary ---
Demographics Address [address] [facility] [address] [place] [address] Home Phone Mobile Phone Preferred Language Nepalese; Castilian Marital Status Single Anabaptism Affiliation Unknown Race Unknown Ethnic Group Unknown Author Organization [facility] Address [address] [place] [address] Support Name Relationship Address Phone Orion Rubio Daughter [address] [facility] [address] [place] [address] Care Team Providers Care Belt Maker Name Role Phone Sammie Maharaj Primary Care Provider [phone] Encounter Details Date Type Department Care Team (Late st Contact Info) Description 01/04/2025 Orders Only [facility] Transplant Department [address] [place] [address] Katy Boateng RN Cryptogenic cirrhosis (Primary Dx) Social History Tobacco Use Types [...] Info) Description 01/08/2025 8:00 AM EDT Follow-Up [facility] Liver Transplant Services [address] [place] [address] Yasmin Ho MD [address] [place] [address] 03/22/2025 3:30 PM EDT Office Visit [facility] ACC Building Diabetes Clinic [address] [place] [address] Analytical Chemistry Teacher: Natasha Rubalcava MD [address] [place] [address] 07/17/2025 8:00 AM EDT Office Visit [facility] Diabetes Clinic [address] [place] [address] 14051 Analytical Chemistry Teacher: Paola Vance NP [address] [place] [address] 08/06/2025 8:00 AM EDT Office Visit [facility] Neurology Clinic [address] [place] [address] Manuel Carpenter PA [address] [place] [address] Scheduled Orders Name Type Priority Associated Diagnoses Orde r Schedule Protime-INR Lab Routine Cryptogenic cirrhosis Expected: 01/04/2025, Expires: 01/04/2026 CBC Auto Differential Lab Routine Cryptogenic cirrhosis Expected: 01/04/2025, Expires: 01/04/2026 documented as of this encounter Visit Diagnoses Diagnosis Cryptogenic cirrhosis (HCC)- Primary Cirrhosis of liver without mention of alcohol documented in this encounter Care Teams Belt Maker Relationship Specialty Start Date End Date Sammie Maharaj: [phone] [address] [place] [address] 47880 PCP - General Family Medicine 05/15/18 documented as of this encounter
--- OUTSIDE RECORDS SUMMARY | 2025-01-07 15:30 | XMS_ITS | Referral Summary ---
Demographics Address [address] [facility] [address] [place] [address] Home Phone Mobile Phone Preferred Language Comoran; Castilian Marital Status Single Congregational Affiliation Unknown Race Unknown Ethnic Group Unknown Author Organization [facility] Address [address] [place] [address] Support Name Relationship Address Phone Orion Rubio Daughter 17 [facility] [address] [place] [address] Care Team Providers Care Workers Compensation Examiner Name Role Phone Sammie Maharaj Primary Care Provider Encounters Date Type Department Care Team Description 01/04/2025 Orders Only [facility] Transplant Department [address] [place] [address] 67394 Katy Boateng RN Cryptogenic cirrhosis (Primary Dx) 01/04/2025 Orders Only [facility] Transplant Department [address] [place] [address] 80410 Katy Boateng RN Cryptogenic cirrhosis (Primary Dx) 12/27/2024 Abstract [facility] Transplant Department [address] [place] [address] 22669 Yasmin Ho MD 12/21/2024 Orders Only [facility] Interventional Radiology [address] [place] [address] 55909 Mateusz Wilkinson DO 12/21/2024 Orders Only [facility] Transplant Department [address] [place] [address] 54483 Katy Boateng RN Cryptogenic cirrhosis (Primary Dx) 12/17/2024 Refill [facility] Building Diabetes Clinic [address] [place] [address] 46160 Fixed Wing Pilot: Kaylee Rodriguez NP 12/17/2024 Telephone [facility] Transplant Department [address] [place] [address] 03456 Katy Boateng RN 12/17/2024 Orders Only [facility] Transplant Department [address] [place] [address] 42882 Katy Boateng RN Cryptogenic cirrhosis (Primary Dx) 12/14/2024 Orders Only [facility] Transplant Department [address] [place] [address] 96804 Katy Boateng RN Cryptogenic cirrhosis (Primary Dx) 12/14/2024 Results Follow-Up [facility] Liver Transplant Services [address] [place] [address] 82960 Katy Boateng RN 12/13/2024 Abstract [facility] Transplant Department [address] [place] [address] 85620 Yasmin Ho MD 12/10/2024 Orders Only [facility] Transplant Department [address] [place] [address] 51763 Katy Boateng RN Cryptogenic cirrhosis (Primary Dx) 12/04/2024 Telephone [facility] Transplant Department [address] [place] [address] 01135 Katy Boateng RN 12/04/2024 Orders Only [facility] Transplant Department [address] [place] [address] 03144 Katy Boateng RN Cryptogenic cirrhosis (Primary Dx); Liver disease 11/28/2024 Telephone [facility] Transplant Department [address] [place] [address] 03588 Katy Boateng RN 11/14/2024 10:00 AM EST Social Work [facility] Liver Transplant Services [address] [place] [address] 48289 Marissa De La Cruz LICSW 11/14/2024 8:00 AM EST Office Visit [facility] Building Diabetes Clinic [address] [place] [address] Fixed Wing Pilot: Kiah Tolentino, Paola Lechuga NP Type 2 diabetes mellitus without complication, with long-term current use of insulin (Primary Dx) 11/13/2024 Refill [facility] Liver Transplant Services [address] [place] [address] Yasmin Ho MD 10/24/2024 Refill [facility] Liver Transplant Services [address] [place] [address] Yasmin Ho MD 10/11/2024 Refill [facility] Liver Transplant Services [address] [place] [address] 88762 Yasmin Ho MD from Last 3 Months Allergies Active Allergy [...] Capsule(s) By Mouth Daily 3 Active FreeStyle Warren Lite meter TEST BLOOD SUGAR THREE TIMES DAILY 4 Active FreeStyle [place] 2 [place] misc 4 Active FreeStyle [place] 2 Sensor [...] 8 capsule 4 Active FreeStyle [place] 3 [place] misc Use to monitor blood sugars. E11.9 [...] from 18-14 by endo 04/2024 Seen by [facility] endocrinology 04/18/24 Hemoglobin A1c is [...] approval for her to upgrade to the [employer]Doll[employer] Killyle charlotte 3 CGM. BPPV (benign paroxysmal positional [...] Info) Description 01/08/2025 8:00 AM EDT Follow-Up [facility] Liver Transplant Services [address] [place] [address] Yasmin Ho MD [address] [place] [address] 03/22/2025 3:30 PM EDT Office Visit [facility] Diabetes Clinic [address] [place] [address] 51353 Fixed Wing Pilot: Natasha Rubalcava MD [address] [place] [address] 07/17/2025 8:00 AM EDT Office Visit [facility] Diabetes Clinic [address] [place] [address] 15329 Fixed Wing Pilot: Paola Vance NP [address] [place] [address] 08/06/2025 8:00 AM EDT Office Visit [facility] Neurology Clinic [address] [place] [address] 88557 Manuel Carpenter PA [address] [place] [address] 535[address] Procedures * Due to [place] state law, this organization might not be [...] Health Maintenance Results * Due to [place] state law, this organization might not be sharing negative HIV tests. * LIVER PRE EXTERNAL PANEL (12/24/2024 7:43 AM EDT) Only the most recent of2 resultswithin the time period is included. Sodium 142 mmol/L [facility] Potassium 3.3 [facility] Chloride 116 [facility] Carbon Dioxide 18 [facility] Glucose 102 [facility] BUN 13 mg/dL [facility] Creatinine 0.53 mg/dL [facility] Calcium 8.8 mg/dL [facility] Total Protein 6.7 g/dL [facility] Albumin 3.0 g/dL [facility] Bilirubin, Total 6.7 mg/dL [facility] Alkaline Phosphatase 726 U/L [facility] AST 98 U/L [facility] ALT 83 U/L [facility] WBC 4.9 10*3/uL [facility] Hgb 11.6 [facility] Hematocrit 35.1 % [facility] Platelets 124 10*3/uL [facility] INR 1.00 [facility] 12/24/2024 7:43 AM EDT us Yasmin Ho MD LAB BLOOD ORDERABLES Final R esult [facility] [address] [place] [address] * POCT Glycosylated Hemoglobin (HGB A1C), interfaced (11/14/2024 7:40 AM EST) Hemoglobin A1C, POCT 4.2 <=5.6 % 11/14/2024 8:12 AM EST [facility] Comment: A1C Recommendation for Non- Adults with Diabetes: <7.0% ADA 2011 Standards of Medical Care in Diabetes Blood 11/14/2024 7:40 AM EST 11/14/2024 8:12 AM EST us Paola Tolentino ED TRANSPORTER LAB POCT ORDERABLES - DEVICE Final Result [facility] [address] [place] [address], * (ABNORMAL) Comprehensive Metabolic Panel (09/11/2024 9:08 AM EST) NA 142 135 - 145 mmol/L 09/11/2024 10:02 AM EST [facility] K 3.6 3.5 - 5.3 mmol/L 09/11/2024 10:02 AM EST [facility] Cl 110(H) 98 - 107 mmol/L 09/11/2024 10:02 AM EST [facility] CO2 19(L) 22 - 32 mmol/L 09/11/2024 10:02 AM EST [facility] Anion Gap 13 5 - 15 09/11/2024 10:02 AM EST [facility] Glucose 242(H) 65 - 99 mg/dL 09/11/2024 10:02 AM EST [facility] Creatinine 0.67 0.50 - 1.20 mg/dL 09/11/2024 10:02 AM EST [facility] Calcium 8.8 8.6 - 10.5 mg/dL 09/11/2024 10:02 AM EST [facility] Total Protein 6.6 6.0 - 8.0 g/dL 09/11/2024 10:02 AM EST [facility] Albumin 3.3(L) 3.5 - 5.2 g/dL 09/11/2024 10:02 AM EST [facility] Bilirubin, Total 8.7(H) 0.2 - 1.2 mg/dL 09/11/2024 10:02 AM EST [facility] Alkaline Phosphatase 1,141(H) 35 - 129 U/L 09/11/2024 10:02 AM EST [facility] AST 122(H) 10 - 40 U/L 09/11/2024 10:02 AM EST [facility] ALT 105(H) 10 - 40 U/L 09/11/2024 10:02 AM EST [facility] BUN 18 7 - 23 mg/dL 09/11/2024 10:02 AM EST [facility] eGFR >90 >=60 mL/min/1 .73m2 09/11/2024 10:02 AM EST [facility] Comment:The estimated glomer ular [...] - 4.2 g/dL 09/11/2024 10:02 AM EST [facility] A/G Ratio 1.0(L) 1.5 - 3.0 09/11/2024 10:02 AM EST [facility] Blood Structure of peripheral vein / Unknown Venipuncture / Unknown 09/11/2024 9:08 AM EST 09/11/2024 9:25 AM EST us Yasmin Ho MD LAB BLOOD ORDERABLES Final R esult [facility] [address] [place] [address], * Microalbumin, Random Urine with Creatinine (04/26/2024 4:22 PM EDT) Pathologist [facility] Microalbumin, Urine <2.0 mg/dL 04/26/2024 5:20 PM EDT [facility] Creatinine, Urine 69 15 - 278 mg/dL 04/26/2024 5:[address] [facility] [employer] [facility] Microalb/Creat Ratio, Random Urine 04/26/2024 5:[address] [facility] [employer] Comment: < 1.0 mcg/mgCr Microalbumin Reference Range: Normal ? <30 mcg/mg Creatinine Microalbuminuria ? 30-300 mcg/mg Creatinine Clinical Albuminuria >300 mcg/mg Creatinine Reference: ADA Guideline. Diabetes Care. 2004;27 (suppl 1) Urine Voided urine specimen / Unknown Non-Blood Collection / Unknown 04/26/2024 4:22 PM EDT 04/26/2024 4:35 PM EDT us Natasha Kramer MD LAB URINE ORDERABLES Final Resul t [facility] [address] [place] [address], * Hepatitis C Antibody w/Reflex to PCR (09/20/2023 12:40 PM EST) Pathologist [facility] Hepatitis C Antibody NON-REACT VIVEK NON-REACT VIVEK 09/21/2023 6:41 AM EST [employer] [facility] Comment: HCV antibody was non-reactive. There is no laboratory evidence of HCV infection. In most cases, no further action is required. However, if recent HCV exposure is suspected, a test for HCV RNA (test code 48388) is suggested. For additional information please refer to http://education.Olo/faq/RTI67i9 (This link is being provided for informational/ educational purposes only.) Blood Structure of peripheral vein / Unknown Venipuncture / Unknown 09/20/2023 12:40 PM EST 09/20/2023 1:07 PM EST Narrative [facility] - 09/21/2023 6:41 AM EST [facility] Received Date: us Yasmin Ho MD LAB BLOOD ORDERABLES Final R esult [facility] [address] [facility] 3rd Floor, [place] [address], [place] [phone] [facility] [address] [facility] 3rd Floor, [place] [address], [place] [phone] from Last 3 Months or Most Recently Relevant to Health Maintenance Insurance Advance Directives Documents on File Type Date Recorded Patient Model Builder Display Expl anation Health Care Proxy 10/26/2023 12:55 PM 10-10 Advance Directive 01/22/2014 12:00 AM Michael mahoney Care Directives Advance Directive 04/03/2010 12:00 AM [place] (Adv.Dir) * Presumed Full Code (Latest Code Status on File) Date Activated Date Inactivated Comments 05/15/2024 12:15 PM 05/16/2024 2:39 AM Care Teams Workers Compensation Examiner Relationship Specialty Start Date End Date Sammie Maharaj [address] [place] [address]481 PCP - General Family Medicine 05/15/18
--- OUTSIDE RECORDS SUMMARY | 2025-01-07 15:30 | XMS_ITS | Encounter Summary ---
Demographics Address [address] [facility] [address] [place] [address] Home Phone Mobile Phone Preferred Language Stateless; Castilian Marital Status Single Advent Affiliation Unknown Race Unknown Ethnic Group Unknown Author Organization [facility] Address [address] [place] [address] Support Name Relationship Address Phone Orion Rubio Daughter [address] [facility] [address] [place] [address] Care Team Providers Care Brush Or Broom Cutter Name Role Phone Sammie Maharaj Primary Care Provider [phone]- [phone] Encounter Details Date Type Department Care Team (Late st Contact Info) Description 01/04/2025 Orders Only [facility] Transplant Department [address] [place] [address] Katy Boateng RN Cryptogenic cirrhosis (Primary Dx) [...] Info) Description 01/08/2025 8:00 AM EDT Follow-Up [facility] Liver Transplant Services [address] [place] [address] Yasmin Ho MD [address] [place] [address] 03/22/2025 3:30 PM EDT Office Visit [facility] ACC Building Diabetes Clinic [address] [place] [address] Welder: Natasha Rubalcava MD [address] [place] [address] 07/17/2025 8:00 AM EDT Office Visit [facility] Diabetes Clinic [address] [place] [address] Welder: Paola Vance NP [address] [place] [address] 136[address] 08/06/2025 8:00 AM EDT Office Visit [facility] Neurology Clinic [address] [place] [address] 994[address] Manuel Carpenter PA [address] [place] [address] 57890 Scheduled Orders Name Type Priority Associated Diagnoses Orde r Schedule Basic Metabolic Panel Lab Routine Cryptogenic cirrhosis Expected: 01/04/2025, Expires: 01/04/2026 Hepatic Function Panel Lab Routine Cryptogenic cirrhosis Expected: 01/04/2025, Expires: 01/04/2026 documented as of this encounter Visit Diagnoses Diagnosis Cryptogenic cirrhosis (HCC)- Primary Cirrhosis of liver without mention of alcohol documented in this encounter Care Teams Brush Or Broom Cutter Relationship Specialty Start Date End Date Sammie Maharaj: [phone] [address] [place] [address] 59755 PCP - General Family Medicine 05/15/18 documented as of this encounter
--- OUTSIDE RECORDS SUMMARY | 2025-01-07 15:30 | XMS_ITS | Encounter Summary ---
Demographics Address 17 [facility] [address] [place] [address] Home Phone Mobile Phone Preferred Language Taiwanese; Castilian Marital Status Single Mormon Affiliation Unknown Race Unknown Ethnic Group Unknown Author Organization [facility] Address [address] [place] [address] Support Name Relationship Address Phone Orion Rubio Daughter 17 [facility] [address] [place] [address] Care Team Providers Care Landscape Architect Name Role Phone Sammie Maharaj Primary Care Provider [phone]- [phone] Encounter Details Date Type Department Care Team (Late st Contact Info) Description 09/12/2024 Orders Only [facility] Interventional Radiology [address] [place] [address] Eugene Warren MD [address] [place] [address] 62148 Social History Tobacco Use Types Packs/Day Years [...] Description 01/08/2025 8:00 AM EDT Follow-Up [facility] Liver Transplant Services [address] [place] [address] 532[address] Yasmin Ho MD [address] [place] [address] 03/22/2025 3:30 PM EDT Office Visit [facility] Diabetes Clinic [address] [place] [address] 54069 Manager Cleaning: Natasha Rubalcava MD [address] [place] [address] 07/17/2025 8:00 AM EDT Office Visit [facility] Diabetes Clinic [address] [place] [address] 54995 Manager Cleaning: Paola Vance NP [address] [place] [address] 39[address] 08/06/2025 8:00 AM EDT Office Visit [facility] Neurology Clinic [address] [place] [address] Manuel Carpenter PA [address] [place] [address] 25699 documented as of this encounter Visit Diagnoses Not on filedocumented in this encounter Care Teams Landscape Architect Relationship Specialty Start Date End Date Sammie Maharaj [address] [place] [address] 24202 PCP - General Family Medicine 05/15/18 documented as of this encounter
--- OUTSIDE RECORDS SUMMARY | 2025-01-07 15:30 | XMS_ITS | Encounter Summary ---
Author Organization [employer] Address [address] [facility] [address] 7[address] [place] [address] Care Team Providers Care Wreath Maker Name Role Phone Sammie Maharaj MD Primary Care Provider [phone]- [phone] Loyda Glaser RN Unavailable [phone] Yasmin Ho MD Unavailable [phone] Reason for Visit * Reason Comments Med Refill Encounter Details Date Type Department Care Team (Late st Contact Info) Description 11/13/2024 Refill [facility] [address] [place], [place] [phone] Sammie Maharaj MD [address] [place], [place] [phone] Tinea unguium Social History Tobacco Use Types [...] 02/25/2025 9:00 AM EDT Office Visit [facility] OPTOMETRY [address] [place] [address] Mckay, Darshana, OD [address] [place] [address] 03/25/2025 9:45 AM EDT Office Visit [facility] MEDICINE [address] [place] [address] Sammie Maharaj MD [address] [place] [address] 248[address] documented as of this encounter Visit Diagnoses Diagnosis Tinea unguium Dermatophytosis of nail documented in this encounter Additional Health Concerns Assessment Noted Time PHQ-9 Depression Total Score: 0 10/24/19 25 9:33 AM EST documented as of this encounter Care Teams Wreath Maker Relationship Specialty Start Date End Date Sammie Maharaj MD [address] [place] [address] PCP - General Family Medicine 10/10/18 Loyda Glaser RN [address] [place] [address] Lead Burner Family Medicine 10/31/23 Yasmin Ho MD [address] [place] [address] Gastroenterology 08/29/24 Manuel Carpenter PA [address] [address] Neurology 08/29/24 Paola Tolentino, UTILITY TECHNICIAN [address] [address] Endocrinology 10/24/24 [facility] Psychology Psychology 12/19/24 documented as of this encounter
--- OUTSIDE RECORDS SUMMARY | 2025-01-07 15:31 | XMS_ITS | Encounter Summary ---
Demographics Address 17 [facility] [address] [place] [address] Home Phone Mobile Phone Preferred Language Djiboutian; Castilian Marital Status Single Denominational Affiliation Unknown Race Unknown Ethnic Group Unknown Author Organization [facility] Address [address] [place] [address] Support Name Relationship Address Phone Orion Rubio Daughter [address] [facility] [address] [place] [address] Care Team Providers Care Wildlife Policy Professional Name Role Phone Sammie Maharaj Primary Care Provider [phone]- [phone] Encounter Details Date Type Department Care Team (Late st Contact Info) Description 10/27/2023 Orders Only [facility] Interventional Radiology [address] [place] [address] Enzo Conner MD [address] [place] [address] Social History Tobacco Use Types Packs/Day Years [...] Follow-Up [facility] Liver Transplant Services [address] [place] [address] Yasmin Ho MD [address] [place] [address] 03/22/2025 3:30 PM EDT Office Visit [facility] Diabetes Clinic [address] [place] [address] Field Marketing Representative: Natasha Rubalcava MD [address] [place] [address] 07/17/2025 8:00 AM EDT Office Visit [facility] Diabetes Clinic [address] [place] [address] Field Marketing Representative: Paola Vance ARTIFICIAL LOG MACHINE OPERATOR [address] [place] [address] 08/06/2025 8:00 AM EDT Office Visit [facility] Neurology Clinic [address] [place] [address] Manuel Carpenter PA [address] [place] [address] documented as of this encounter Visit Diagnoses Not on filedocumented in this encounter Care Teams Wildlife Policy Professional Relationship Specialty Start Date End Date Sammie Maharaj: [phone] [address] [place] [address] PCP - General Family Medicine 05/15/18 documented as of this encounter
--- OUTSIDE RECORDS SUMMARY | 2025-01-07 15:31 | XMS_ITS | Encounter Summary ---
Author Organization [employer] Address [address] [facility] 7t [place] [address] Care Team Providers Care Construction Engineering Manager Name Role Phone Sammie Maharaj MD Primary Care Provider Loyda Glaser RN Unavailable [phone] Yasmin Ho MD Unavailable Encounter Details Date Type Department Care Team (Late Contact Info) Description 05/16/2023 Orders Only [facility] CHC MED & PEDS [address] [place] [address] Emily Marcial LPN Social History Tobacco Use [...] 9:00 AM EDT Office Visit [facility] OPTOMETRY [address] [place], [place] [phone] Darshana Bashir, OD [address] [place], [place] [phone] 03/25/2025 9:45 AM EDT Office Visit [facility] MEDICINE [address] [place], [place] [phone] Sammie Maharaj MD [address] [place] [address] documented as of this encounter Visit Diagnoses Not on filedocumented in this encounter Care Teams Construction Engineering Manager Relationship Specialty Start Date End Date Sammie Maharaj MD [address] [place] [address] PCP - General Family Medicine 10/10/18 Loyda Glaser, ERVIN [address] [place] [address] Community Organization [facility] 10/31/23 Yasmin Ho MD [address] [place] [address] Gastroenterology 08/29/24 Manuel Carpenter PA [facility] [address] [facility] [address] Neurology 08/29/24 Paola Tolentino, HEBERT [address] [address] Endocrinology 10/24/24 [facility] Psychology Psychology 12/19/24 documented as of this encounter
--- OUTSIDE RECORDS SUMMARY | 2025-01-07 15:31 | XMS_ITS | Encounter Summary ---
Author Organization [employer] Address [address] [facility] [address] 7t [place] [address] Care Team Providers Care Detention Officer Name Role Phone Sammie Maharaj MD Primary Care Provider [phone]- [phone] Loyda Glaser RN Unavailable [phone] Yasmin Ho MD Unavailable Reason for Visit * Reason Comments Med Refill Encounter Details Date Type Department Care Team (Late st Contact Info) Description 10/24/2024 Refill [facility] [address] [place], [place] [phone] Sammie Maharaj MD [address] [place], [place] [phone] Microcytic anemia Social History Tobacco Use Types [...] 02/25/2025 9:00 AM EDT Office Visit [facility] OPTOMETRY [address] [place] [address] Mckay, Darshana, OD [address] [place] [address] 03/25/2025 9:45 AM EDT Office Visit [facility] MEDICINE [address] [place] [address] Sammie Maharaj MD [address] [place] [address] documented as of this encounter Visit Diagnoses Diagnosis Microcytic anemia Unspecified iron deficiency anemia documented in this encounter Additional Health Concerns Assessment Noted Time PHQ-9 Depression Total Score: 0 10/24/19 25 9:33 AM EST documented as of this encounter Care Teams Detention Officer Relationship Specialty Start Date End Date Sammie Maharaj MD [address] [place] [address] PCP - General Family Medicine 10/10/18 Loyda Glaser, RN [address] [place] [address] Manager Workers Compensation Family Medicine 10/31/23 Yasmin Ho MD [address] [place] [address] Gastroenterology 08/29/24 Manuel Carpenter PA [address] [address] Neurology 08/29/24 Paola Tolentino NP [address] [address] Endocrinology 10/24/24 [facility] Psychology Psychology 12/19/24 documented as of this encounter
--- OUTSIDE RECORDS SUMMARY | 2025-01-07 15:31 | XMS_ITS | Encounter Summary ---
Author Organization [employer] [facility] Address [address] [facility] 7t [place] [address] Care Team Providers Care Bible Worker Name Role Phone Sammie Maharaj MD Primary Care Provider [phone]- [phone] Loyda Glaser RN Unavailable [phone] Yasmin Ho MD Unavailable [phone] Encounter Details Date Type Department Care Team (Late st Contact Info) Description 11/11/2022 Abstract [facility] MEDICINE [address] [place] [address] Sammie Maharaj MD 230 [place], [place] [phone] Social History Tobacco Use Types Packs/Day Years [...] 9:00 AM EDT Office Visit [facility] OPTOMETRY [address] [place], [place] [phone] Darshana Bashir, OD 230 [place] [address] 03/25/2025 9:45 AM EDT Office Visit [facility] MEDICINE 230 [place] [address] Sammie Maharaj MD [address] [place] [address] documented as of this encounter Procedures Procedure Name Priority Date/Time Associated Diagnosis Comments PAP SMEAR Routine 03/25/2021 12:00 AM EDT documented in this encounter Results * Pap Smear (03/25/2021 12:00 AM EDT) Swab us Historical Provider LAB CYTOLOGY ORDERABLES F inal Result IMAGING documented in this encounter Visit Diagnoses Not on filedocumented in this encounter Care Teams Bible Worker Relationship Specialty Start Date End Date Sammie Maharaj MD [address] [place] [address] PCP - General Family Medicine 10/10/18 Loyda Glaser RN [address] [place] [address] Mri Technician Family Medicine 10/31/23 Yasmin Ho MD [address] [place] [address] Gastroenterology 08/29/24 Manuel Carpenter [facility] [address] [facility] [address] Neurology 08/29/24 Paola Tolentino NP [address] [address] Endocrinology 10/24/24 [facility] Psychology Psychology 12/19/24 documented as of this encounter
--- OUTSIDE RECORDS SUMMARY | 2025-01-07 15:31 | XMS_ITS | Encounter Summary ---
Author Organization [employer] [facility] Address [address] 7t [place] [address] Care Team Providers Care Building Performance Consultant Name Role Phone Sammie Maharaj MD Primary Care Provider [phone]- [phone] Loyda Glaser RN Unavailable [phone] Yasmin Ho MD Unavailable [phone] Reason for Visit * Reason Onset Date Comments Appointment Request 10/20/2023 Encounter Details Date Type Department Care Team ([facility] st Contact Info) Description 10/20/2023 Telephone [facility] MEDICINE 230 [place] [address] Sammie Maharaj MD [address] [place], [place] [phone] Appointment Request Social History Tobacco Use Types [...] and reschedule appt for 11/03/2023 @ 9:30 news writer did cancel per patients request documented in this encounter Plan of Treatment Upcoming Encounters Date Type Department Care Team (Late st Contact Info) Description 02/25/2025 9:00 AM EDT Office Visit [facility] OPTOMETRY [address] [place] [address] Mckay, Darshana, OD 230 [place] [address] 03/25/2025 9:45 AM EDT Office Visit [facility] MEDICINE 230 [place] [address] Sammie Maharaj MD [address] [place] [address] documented as of this encounter Visit Diagnoses Not on filedocumented in this encounter Additional Health Concerns Assessment Noted Time PHQ-9 Depression Total Score: 0 07/28/20 23 9:42 AM EDT documented as of this encounter Care Teams Building Performance Consultant Relationship Specialty Start Date End Date Sammie Maharaj MD [address] [place] [address] PCP - General Family Medicine 10/10/18 Loyda Glaser, RN [address] [place] [address] Sales Account Director Family Medicine 10/31/23 Yasmin Ho MD [address] [place] [phone] Gastroenterology 08/29/24 Manuel Carpenter PA [facility] [address] [facility] [address] Neurology 08/29/24 Paola Tolentino NP [address] [address] Endocrinology 10/24/24 [facility] Psychology Psychology 12/19/24 documented as of this encounter
--- OUTSIDE RECORDS SUMMARY | 2025-01-07 15:31 | XMS_ITS | Encounter Summary ---
Demographics Address [address] [facility] [address] [place] [address] Home Phone Mobile Phone Preferred Language Bhutanese; Castilian Marital Status Single Methodist Affiliation Unknown Race Unknown Ethnic Group Unknown Author Organization [facility] Address [address] [place] [address] Support Name Relationship Address Phone Orion Rubio Daughter [address] [facility] [address] [place] [address] Care Team Providers Care Aeronautical Test Engineer Name Role Phone Sammie Mahraaj Primary Care Provider [phone] Encounter Details Date Type Department Care Team (Late st Contact Info) Description 09/20/2023 Orders Only [facility] Interventional Radiology [address] [place] [address] Ricardo Reyez MD [address] [place] [address] Social History Tobacco Use Types Packs/Day Years [...] Info) Description 01/08/2025 8:00 AM EDT Follow-Up [facility] Liver Transplant Services 55 [place] [address] Yasmin Ho MD [address] [place] [address] 03/22/2025 3:30 PM EDT Office Visit [facility] Diabetes Clinic [address] [place] [address] Software Quality Analyst: Natasha Rubalcava MD [address] [place] [address] 07/17/2025 8:00 AM EDT Office Visit [facility] Diabetes Clinic [address] [place] [address] Software Quality Analyst: Paola Vance NP [address] [place] [address] 08/06/2025 8:00 AM EDT Office Visit [facility] Neurology Clinic [address] [place] [address] Manuel Carpenter PA [address] [place] [address] documented as of this encounter Visit Diagnoses Not on filedocumented in this encounter Care Teams Aeronautical Test Engineer Relationship Specialty Start Date End Date Sammie Maharaj [address] [place] [address] PCP - General Family Medicine 05/15/18 documented as of this encounter
--- OUTSIDE RECORDS SUMMARY | 2025-01-07 15:31 | XMS_ITS | Encounter Summary ---
Author Organization [employer] [facility] Address [address] [facility] 7t [place] [address] Care Team Providers Care Cost Controller Name Role Phone Sammie Maharaj MD Primary Care Provider [phone] Loyda Glaser RN Unavailable [phone] Yasmin Ho MD Unavailable Reason for Visit * Reason Onset Date Comments Referral 12/01/2022 Encounter Details Date Type Department Care Team (Late st Contact Info) Description 12/01/[address] [facility] MEDICINE [address] [place] [address] Sammie Mahraaj MD [address] [place], [place] [phone] Referral Social History Tobacco Use Types Packs/Day [...] [facility] Please contact pt at [phone] or Becca [phone] documented in this encounter Plan of Treatment Upcoming Encounters Date Type Department Care Team (Late st Contact Info) Description 02/25/2025 9:00 AM EDT Office Visit [facility] OPTOMETRY [address] [place] [address] MckayDarshana coppola, OD 230 [place] [address] 03/25/2025 9:45 AM EDT Office Visit [facility] MEDICINE 230 [place] [address] Sammie Maharaj MD [address] [place] [address] documented as of this encounter Visit Diagnoses Not on filedocumented in this encounter Care Teams Cost Controller Relationship Specialty Start Date End Date Sammie Maharaj MD [address] [place] [address] PCP - General Family Medicine 10/10/18 Loyda Glaser, RN [address] [place] [address] Media Supervisor Family Medicine 10/31/23 Yasmin Ho MD [address] [place] [address] Gastroenterology 08/29/24 Manuel Carpenter PA [address] [address] Neurology 08/29/24 Paola Tolentino NP [address] [address] Endocrinology 10/24/24 [facility] Psychology Psychology 12/19/24 documented as of this encounter
--- OUTSIDE RECORDS SUMMARY | 2025-01-07 15:31 | XMS_ITS | Encounter Summary ---
Demographics Address [address] [facility] [address] [place] [address] Home Phone Mobile Phone Preferred Language Fijian; Castilian Marital Status Single Jehovah'S Witness Affiliation Unknown Race Unknown Ethnic Group Unknown Author Organization [facility] Address [address] [place] [address] Support Name Relationship Address Phone Orion Ruibo Daughter [address] [facility] [address] [place] [address] Care Team Providers Care Boat Loader Helper Name Role Phone Sammie Maharaj Sujit Primary Care Provider [phone] Encounter Details Date Type Department Care Team (Late st Contact Info) Description 07/13/2017 Transplant Conversio n Encounter [facility] Health Information Management [address] [place] [address] Provider, [facility] Social History Tobacco Use Types Packs/Day [...] Info) Description 01/08/2025 8:00 AM EDT Follow-Up [facility] Liver Transplant Services [address] [place] [address] Yasmin Ho MD [address] [place] [address] 03/22/2025 3:30 PM EDT Office Visit [facility] ACC Building Diabetes Clinic [address] [place] [address] Crimper Operator: Natasha Rubalcava MD [address] [place] [address] 07/17/2025 8:00 AM EDT Office Visit [facility] Diabetes Clinic [address] [place] [address] Crimper Operator: Paola Vance SPECIAL EDUCATION SCIENCE TEACHER [address] [place] [address] 08/06/2025 8:00 AM EDT Office Visit [facility] Neurology Clinic [address] [place] [address] Manuel Carpenter PA 55 [place] [address] documented as of this encounter Visit Diagnoses Not on filedocumented in this encounter Care Teams Boat Loader Helper Relationship Specialty Start Date End Date Sammie Maharaj: [phone] [address] [place] [address] PCP - General Family Medicine 05/15/18 documented as of this encounter
--- OUTSIDE RECORDS SUMMARY | 2025-01-07 15:31 | XMS_ITS | Encounter Summary ---
Author Organization [employer] Address [address] 7[address] [place] [address] Care Team Providers Care Wireless Network Engineer Name Role Phone [place], Sammie JOHNSON Primary Care Provider [phone]- [phone] Loyda Glaser RN Unavailable [phone] Yasmin Ho MD Unavailable [phone] Reason for Visit * Reason Comments Med Refill Encounter Details Date Type Department Care Team (Late st Contact Info) Description 11/18/2023 Refill [facility] 230 [place] [address] Tara Carlisle, DOMENICO Tinea unguium Social History [...] Description 02/25/2025 9:00 AM EDT Office Visit [facility] OPTOMETRY [address] [place] [address] Mckay, Darshana, OD 230 [place] [address] 03/25/2025 9:45 AM EDT Office Visit [facility] MEDICINE [address] [place] [address] Sammie Maharaj MD 230 [place] [address] documented as of this encounter Visit Diagnoses Diagnosis Tinea unguium Dermatophytosis of nail documented in this encounter Additional Health Concerns Assessment Noted Time PHQ-9 Depression Total Score: 0 07/28/20 23 9:42 AM EDT documented as of this encounter Care Teams Wireless Network Engineer Relationship Specialty Start Date End Date Sammie Maharaj MD [address] [place] [address] PCP - General Family Medicine 10/10/18 Loyda Glaser, ERVIN [address] [place] [address] Family Welfare Social Work Professor Family Medicine 10/31/23 Yasmin Ho MD [address] [place] [address] Gastroenterology 08/29/24 Manuel Carpenter PA [address] [address] Neurology 08/29/24 Paola Tolentino NP [address] [address] Endocrinology 10/24/24 [facility] Psychology Psychology 12/19/24 documented as of this encounter
--- OUTSIDE RECORDS SUMMARY | 2025-01-07 15:31 | XMS_ITS | Clinical Summary ---
Author Organization [employer] Address [address] [place] [address] [address] [place] [address] Care Team Providers Care Electric Motor Tester Name Role Phone [place], Sammie JOHNSON Primary Care Provider [phone] Loyda Glaser RN Unavailable [phone] Yasmin Ho MD Unavailable Allergies Active Allergy Reactions Criticality Noted Date Comments Acetaminophen 09/09/2014 Other reaction(s): Rash Latex Rash Low 06/29/2023 Medications zonisamide (Zonegran) 100 MG capsuleIndicat ions:Complex partial seizure (CMS/HCC) Take 100 mg by mouth Once per day. Two tab po qhs Active Continuous Glucose Sensor (FreeStyle Charlotte 3 Plus Sensor) miscIndication s:Type 2 diabetes mellitus with hyperglycemia, with long-term current use of insulin (CMS/HCC) [facility] Active insulin glargine (Lantus) 100 UNIT/ML injectionIndic ations:Type 2 diabetes mellitus with hyperglycemia, with long-term current use of insulin (CMS/HCC) Inject under the skin at bedtime. Injecting 14 units daily as directed by crop adjuster Active ursodiol (Actigall) 250 MG tabletIndicati ons:End stage liver disease (CMS/HCC) Take 250 mg by mouth [address] Marilee SOSA [facility] Active beta carotene (vitamin A) 3 MG (44266 UT) capsuleIndicat ions:End stage liver disease (CMS/HCC) Take 10,000 Units by mouth Once per day. Per SHEILA Perez at [facility] liver CLinic Active insulin pen needle (BD Pen Needle Sandy 2nd Gen) 32G x 4 mm miscIndication s:End stage liver disease (CMS/HCC) Inject under the skin if needed. Use as instructed Active insulin glargine (Lantus SoloStar) 100 UNIT/ML penIndications :Uncontrolled type 2 diabetes mellitus with hyperglycemia, with long-term current use of insulin (CMS/HCC) Inject 18 Units under the skin at bedtime. 15 mL 3 024 2024 Discontinued(M ed list cleanup (will not trigger notification to Pharmacy)) ursodiol (Actigall) 250 MG tablet Take 1 tablet by mouth 3 times daily. 025 2024 Discontinued(M ed list cleanup (will not trigger notification to Pharmacy)) beta carotene (vitamin A) 3 MG (13553 UT) capsule Take 1 capsule by mouth Once per day. 025 2024 Discontinued(M ed list cleanup (will not trigger notification to Pharmacy)) predniSONE (Deltasone) 20 MG tablet Take 1 tablet (20 mg) by mouth Once per day for 5 days. 5 tablet 025 2024 oxyCODONE (Roxicodone) 5 MG immediate release tabletIndicati ons:Intractabl e headache, unspecified chronicity pattern, unspecified headache type Take 1 tablet (5 mg) by mouth every 12 (twelve) hours if needed for severe pain for up to 3 days. 6 tablet 025 2024 Continuous Glucose Sensor (FreeStyle Charlotte 3 Plus Sensor) misc Use as directed 025 2024 Discontinued(M ed list cleanup (will not trigger notification to Pharmacy)) BD Pen Needle Sandy 2nd Gen 32G X 4 MM misc Use to administer insulin nightly 025 2024 Discontinued(M ed list cleanup (will not trigger notification to Pharmacy)) Active Problems Patient Care Coordination No te Formatting of this note migh t be different from the original. [facility] provider line [phone], called 09/29/23 Breanna Burleson [phone]. cell [phone] PATIENT TRANSITION SPECIALIST services via [facility] Problem Noted Date Diagnosed Date Swelling of right ear 12/19/2024 Overview (12/19/2024): [facility] (12/08/2024 - 12/10/2024) Patient presented for evaluation of ear pain and redness. Dx acute perichondritis. Treated with IV cefepime due to extensive infection. No sepsis. Some crusting but significant improvement in swelling. Discharged home with Levaquin to complete a total of 10 days of antibiotics and 4 days of prednisone. Seen by BHAVNA PARISI on 12/14/24 at pt's home for bilateral leg swelling. Slight non-pitting edema to superior side of distal feet. BGL was 230 as pt was eating dinner and about to administer insulin shortly after. She was told it was due to prednisone. She stopped her prednisone and symptoms resolved. Pt called her specialist in [place]. She is doing much better. She showed me a photo of her year that was severely inflamed with vesicles and erythremia. This has resoled and no longer on prednisone. She requests letter to keep her dog at home due to her anxiety. Assessment & Plan (12/19/2024 1:01 PM EDT): [facility] (12/08/2024 - 12/10/2024) Patient presented for evaluation of ear pain and redness. Dx acute perichondritis. Treated with IV cefepime due to extensive infection. No sepsis. Some crusting but significant improvement in swelling. Discharged home with Levaquin to complete a total of 10 days of antibiotics and 4 days of prednisone. Seen by BHAVNA PARISI on 12/14/24 at pt's home for bilateral leg swelling. Slight non-pitting edema to superior side of distal feet. BGL was 230 as pt was eating dinner and about to administer insulin shortly after. She was told it was due to prednisone. She stopped her prednisone and symptoms resolved. Pt called her specialist in [place]. She is doing much better. She showed me a photo of her year that was severely inflamed with vesicles and erythremia. This has resoled and no longer on prednisone. She requests letter to keep her dog at home due to her anxiety. Anxiety 12/19/2024 Overview (12/19/2024): -Controlled with dog, Trippy Assessment & Plan (12/19/2024 1:02 PM EDT): -Controlled with dog, Trippy Rash 12/19/2024 Intractable headache 12/05/2024 Overview (12/05/2024): Suspect due [...] if needed. I spoke with Liz at [facility] liver transplant clinic, explained the situation and ask them to run the pictures and case by clinic specialist in case this is not related to liver disease which she is unlikely. Hyperlipidemia 11/15/2024 Overview (12/19/2024): Lab Results Component Value Date CHOL 132 10/24/2024 CHOL 172 07/28/2023 TRIG 91 10/24/2024 TRIG 105 07/28/2023 HDL 22 (L) 10/24/2024 HDL 33 (L) 07/28/2023 LDLCHOLCAL 92 10/24/2024 LDLCHOLCAL 118 (H) 07/28/2023 -continue lifestyle modification Chronic right shoulder pain 07/09/2024 Overview (12/19/2024): Pt reports pain with movement and sleeping on right shoulder. -ordered XR of R shoulder 07/09/24 -referred to PT 07/09/25 Assessment & Plan (07/09/2024 10:22 AM EDT): Pt reports pain with movement and sleeping on right shoulder. -ordered XR of R shoulder 07/09/25 -referred to PT 07/09/[address] of the abdomen 02/23/2024 Overview (06/01/2024): CT abd pelvis ordered by [facility] and dated 01/28/24 IMPRESSION: 1. A [...] appear significantly changed from 2021, possibly reactive. [facility] not from 02/24/24 Telephone Encounter - Katy Boateng RN 10:24 AM LVM for patient using health concierge, Ari [id number], about results of MRI and scheduling of [...] pelvis ordered by [facility] liver [facility] and dated 01/28/24 IMPRESSION: 1. A [...] appear significantly changed from 2021, possibly reactive. [facility] not from 02/24/24 Telephone Encounter - Katy Boateng RN 10:24 AM LVM for patient using health concierge, [employer] [id number], about results of MRI and scheduling of [...] RN 10:24 AM LVM for patient using health concierge, [employer] [id number], about results of MRI and scheduling of [...] 11/14/2023 Overview (01/18/2024): -she has fired several medical billing specialist in the past. I called [facility] provider line [phone], 09/29/23 and spoke to Breanna Burleson [phone]. He reported extensive hx of working it pt and she was on the waiting list for starvros. Her PATIENT TRANSITION SPECIALIST will be Laxmi Mas her friend. -She has been approved for PATIENT TRANSITION SPECIALIST hours but have not started yet as of 01/18/2024 Assessment & Plan (01/18/2024 9:17 AM EDT): -she has fired several medical billing specialist in the past. I called [facility] provider line [phone], 09/29/23 and spoke to Breanna Burleson [phone]. He reported extensive hx of working it pt and she was on the waiting list for starvros. Her PATIENT TRANSITION SPECIALIST will be Laxmi Mas her friend. -She has been approved for PATIENT TRANSITION SPECIALIST hours but have not started yet as of 01/18/2024 Pain in hand and fingers 09/29/2023 Overview (01/18/2024): -refer to occupational therapy 01/18/2024 Assessment & Plan (09/29/2023 11:55 AM EST): No etiology on exam. Pt high risk for dyupetryns. Recommend warm wraps and rest. Other specified health status 07/21/2023 Overview (12/19/2024): -next physical exam due after 07/09/25 -eye care facilitated by [facility] -dental home is [facility] -health care proxy paperwork filed 07/09/24 Assessment & Plan (12/19/2024 1:03 PM EDT): -next physical exam due after 07/09/25 -eye care facilitated by [facility] -dental home is [facility] -health care proxy paperwork filed 07/09/24 Assessment & Plan (10/24/2024 9:48 AM EST): -next physical exam due after 07/09/25 -eye care facilitated by [facility] -dental home is [facility] -health care proxy paperwork given 10/20/23. Filed 07/09/24 Assessment & Plan (07/09/2024 10:17 AM EDT): -next physical exam due after 07/09/25 -eye care facilitated by [facility] -dental home is [facility] -health care proxy paperwork given 10/20/23. Filed 07/09/24 Assessment & Plan (01/18/2024 9:16 AM EDT): -next physical exam due after 07/28/2024 -eye care facilitated by [facility] -dental home is none -health care proxy paperwork given 10/20/23 Assessment & Plan (10/20/2023 9:33 AM EST): -next physical exam due after 07/28/2024 -eye care facilitated by [facility] referral placed 09/29/23 -dental home is none -health care proxy paperwork given 10/20/23 Assessment & Plan (09/29/2023 11:46 AM EST): -next physical exam due after 07/28/2024 -eye care facilitated by [facility] referral placed 09/29/23 -dental home is none Assessment & Plan (07/28/2023 10:05 AM EDT): -next physical exam due after 07/28/2024 -eye care facilitated by [facility] -dental home is none Type 2 diabetes mellitus 11/19/2021 Overview (12/19/2024): -Followed by [facility] End[facility] Diabetes are controlled. -CGM training done 10/20/23 Lab Results Component Value Date HGBA1C 4.6 07/09/2024 HGBA1C 4.3 01/18/2024 HGBA1C 7.6 (A) 10/28/2023 Lab Results Component Value Date CREATININE 0.63 12/07/2024 EGFR >60 12/07/2024 MICROALBCREU TNP 11/05/2024 MICROALBCREU TNP 07/28/2023 LDLCHOLCAL 92 10/24/2024 -Manolo/Arb: none -Statin therapy: none -anjali exam [...] upgrade to the freestyle charlotte 3 CGM. Assessment & Plan (12/19/2024 1:03 PM EDT): -Followed by [facility] Diabetes are controlled. -CGM training done 10/20/23 Lab Results Component Value Date HGBA1C 4.6 07/09/2024 HGBA1C 4.3 01/18/2024 HGBA1C 7.6 (A) 10/28/2023 Lab Results Component Value Date CREATININE 0.63 12/07/2024 EGFR >60 12/07/2024 MICROALBCREU TNP 11/05/2024 MICROALBCREU TNP 07/28/2023 LDLCHOLCAL 92 10/24/2024 -Manolo/Arb: none -Statin therapy: none -anjali exam [...] upgrade to the freestyle charlotte 3 CGM. Assessment & Plan (10/24/2024 [...] approval for her to upgrade to the [employer] charlotte 3 CGM. Assessment & Plan (07/09/2024 [...] approval for her to upgrade to the [employer] A/Syle charlotte 3 CGM. Assessment & Plan (01/18/2024 [...] 12/27/2016 End stage liver disease 11/26/2016 Overview (12/19/2024): On liver transplant list since December 2023. [...] services with Dr. Yasmin Ho MD of [facility] 02/2024, note reviewed: She remains [...] findings which we reviewed with patient and ogrial-xw-iki again today. We recommended continuation of empiric [...] labs show elevated LFTs. Labs sent to clinic specialist. 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 Recommending redraw next week with PT and INR to update meld. Lab order was faxed. -reordered labs 12/05/24, stable and [facility] aware Assessment & Plan (12/19/2024 1:02 PM EDT): On liver transplant list since December [...] services with Dr. Yasmin Ho MD of [facility] GI 02/2024, note reviewed: She remains [...] findings which we reviewed with patient and [id number]-[id number] again today. We recommended continuation of empiric [...] labs show elevated LFTs. Labs sent to clinic specialist. 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 Recommending redraw next week with PT and INR to update meld. Lab order was faxed. -reordered labs 12/05/24, stable and [facility] aware Assessment & Plan (12/05/2024 2:36 PM EST): [...] services with Dr. Yasmin Ho MD of [facility] 02/2024, note reviewed: She remains [...] findings which we reviewed with patient and blyhdb-vx-tup again today. We recommended continuation of empiric [...] labs show elevated LFTs. Labs sent to clinic specialist. Due to increased bilirubin, labs were sent to clinic specialist who reports chronically elevated due to chol [...] services with Dr. Yasmin Ho MD of [facility] 02/2024, note reviewed: She remains [...] 202, possibly reactive. -[facility] [...] findings which we reviewed with patient and mkfrqt-dy-cce again today. We recommended continuation of empiric [...] services with Dr. Yasmin Ho MD of [facility] 02/2024, note reviewed: She remains [...] not drive), baths or swimming. Awaiting new PATIENT TRANSITION SPECIALIST provider. Daughter aware of how to call 911. Followed by neurologist, -followed by Dr. Jono Eden at [facility]. Next appointment 08/2024 -she self dc? d [...] not drive), baths or swimming. Awaiting new PATIENT TRANSITION SPECIALIST provider. Daughter aware of how to call 911. Followed by neurologist, -followed by Dr. Jono Eden at [facility]. Next appointment 08/2024 -she self dc? d [...] not drive), baths or swimming. Awaiting new PATIENT TRANSITION SPECIALIST provider. Daughter aware of how to call 911. Followed by neurologist, -followed by Dr. Jono Eden at [facility]. Next appointment 08/2024 [...] services with Dr. Yasmin Ho MD of [facility] 12/12/2023, note reviewed Cirrhosis: -Compensated: [...] diet discussed. Avoid hepatotoxic agents. -Followed by: [facility] -continue ursodiol therapy given marked AP elevation and potential for AMA negative PCB. -transplant candidacy will be determined by multidisciplinary transplant committee after all appropriate testing has been performed. -Has follow up with liver transplant senior sales [facility] [...] diet discussed. Avoid hepatotoxic agents. -Followed by: [facility] -continue ursodiol therapy given marked AP elevation and potential for AMA negative PCB. -transplant candidacy will be determined by multidisciplinary transplant committee after all appropriate testing has been performed. -call place by me to [facility] home care giver at [facility] [phone] to stress the urgency of PATIENT TRANSITION SPECIALIST services and increase level of care. He [...] diet discussed. Avoid hepatotoxic agents. -Followed by: [facility] GI -continue ursodiol therapy given marked AP elevation and potential for AMA negative PCB. -transplant candidacy will be determined by multidisciplinary transplant committee after all appropriate testing has been performed. -call place by me to [facility] home care giver at [facility] [phone] cell [phone] to stress the urgency of PATIENT TRANSITION SPECIALIST services and increase level of care. He [...] in her care. She has had multiple medical billing specialist which she has fired and multiple case [...] in her care. She has had multiple medical billing specialist which she has fired and multiple case [...] in her care. She has had multiple medical billing specialist which she has fired and multiple case [...] in her care. She has had multiple medical billing specialist which she has fired and multiple case [...] Encounters Date Type Department Care Team Description 12/25/2024 Refill [facility] [address] [phone] Sammie Maharaj MD Tinea unguium 12/19/2024 9:00 AM EDT Office Visit [address] [address] Sammie Maharaj MD End stage liver disease ([facility]/HCC) (Primary Dx); Type 2 diabetes mellitus with hyperglycemia, with long-term current use of insulin ([facility]); Complex care coordination; Rash; Swelling of right ear; Anxiety; Other specified health status 12/19/2024 Travel 12/15/[address] [address] Sammie Maharaj MD Uncontrolled type 2 diabetes mellitus with hyperglycemia, with long-term current use of insulin ([facility]) 12/10/2024 Patient Outreach [facility] [address] [place] [address] Sammie Maharaj MD Transition Of Care (Tcm) (HDF scheduled. ) 12/10/[address] [address] Sammie Maharaj MD Hospital Follow-up; chartprep 12/08/2024 Orders Only GENERIC EXTERNAL DATA DEPARTMENT Provider, Generic External Data 12/07/2024 Orders Only GENERIC EXTERNAL DATA DEPARTMENT Provider, Generic External Data 12/07/[address] [address] Sammie Mahraaj MD Nurse Triage 12/05/2024 2:00 PM EST Office Visit [facility] [address] [address] Sammie Maharaj MD End stage liver disease ([facility]/HCC) (Primary Dx); Intractable headache, unspecified chronicity pattern, unspecified headache type 12/05/[address] [address] Uma Jiménez, ERVIN 12/05/[address] [address] Sammie Maharaj MD Nurse Triage 12/04/2024 Telephone [facility] [address] [address] Rocio Bell MD 12/03/2024 11:00 AM EST Office Visit [facility] [address] [place] [address] Rocio Bell MD Atopic dermatitis in adult (Primary Dx); End stage liver disease (CMS/HCC) 12/03/[address] [address] Rosaura Almeida RN Results (Rocio Bell MD/12/03/2024 5:04 PM EST /Labs showed mild worsening of bili's and alk phos, rule out obstructive fissures or may be autoimmune hepatitis. /Her inflammatory markers are higher as well. She ideally should be seen by silk presser now or run these labs by clinic specialist, /I spoke with Maria L at [facility] hepatology/transplant clinic and unfortunately no one was available at the office at the time. /She will send this information to the covering providers and have then get back to us, ) 11/13/2024 Refill [facility] [address] [place] [address] Sammie Maharaj MD Tinea unguium 11/02/2024 9:00 AM EST Clinical Support [address] [address] Laya Horan, DomingaD Type 2 diabetes mellitus with hyperglycemia, with long-term current use of insulin (CMS/HCC) (Primary Dx); Complex partial seizure (CMS/HCC); End stage liver disease (CMS/HCC) 10/24/2024 9:30 AM EST Office Visit [address] [address] Sammie Maharaj MD Complex partial seizure (CMS/HCC) (Primary Dx); End stage liver disease (CMS/HCC); Type 2 diabetes mellitus with hyperglycemia, with long-term current use of insulin (CMS/HCC); Complex care coordination; Abnormal CT of the abdomen; Other specified health status; Tray dover 10/24/2024 Travel 10/24/2024 Refill [facility] [address] [place] [address] Sammie Maharaj MD Microcytic anemia 10/23/2024 Telephone [facility] [address] [place], [place] [phone] Laya Azul MA 10/23/2024 Telephone [facility] [address] [place] [address] Laya Azul MA chartprep from Last 3 Months Immunizations Name Administration Dates Next Due DTaP, 5 pertussis antigens 04/03/2010 Hep A, Adult 05/01/2009,02/29/2008 Hep B, adult 09/29/2023,07/28/2023,07/13/2019 Hib ([facility]) 06/11/2009 Influenza injectable quadriv alent IIV4 with [...] Sign Reading Time Taken Comments Blood Pressure 109/62 12/19/2024 9:04 AM EDT Pulse 69 12/19/2024 9:04 AM EDT Temperature 37.2 ??C (98.9 ??F) 12/19/2024 9:04 AM ED T Respiratory Rate 20 12/19/2024 9:04 AM EDT Oxygen Saturation 100% 12/19/2024 9:04 AM EDT Inhaled Oxygen Concentration - - Weight 52.3 kg (115 lb 6.4 oz) 12/19/2024 9:04 A M EDT Height 147.3 cm (4' 10 ) 12/03/2024 10:39 AM EST Body Mass Index 24.12 12/03/2024 10:39 AM EST Plan of Treatment Upcoming Encounters Date Type Department Care Team (Late st Contact Info) Description 02/25/2025 9:00 AM EDT Office Visit [facility] [address] [place] [address], [place] [phone] Darshana Bashir, OD [address] [place] [address] 03/25/2025 9:45 AM EDT Office Visit [facility] [address] [place], [place] [phone] Sammie Maharaj MD [address] [place], [place] [phone] Health Maintenance Due Date Last Done Comments [...] 11/2023, 11/11/2023, Additional history exists Tobacco Screening 12/19/2025 12/19/2024 Cervical Cancer Screening 03/25/2026 HPV/Cotest 03/25/2026 Pap [...] Name Priority Date/Time Associated Diagnosis Comments POCT GLUCOSE Routine 12/19/2024 9:09 AM EDT Type 2 diabetes mellitus with hyperglycemia, with long-term current use of insulin ([facility]) LACTIC ACID Routine 12/08/2024 1:12 AM EST [...] Recently Relevant to Health Maintenance Results * POCT glucose manually resulted (12/19/2024 9:09 AM EDT) Glucose Blood, POC 131 60 - 200 mg/dL QC Media Lot # [id number] Lot# Expiration Date [id number] Blood Capillary blood specimen / Unknown 12/19/2024 9:09 AM EDT Sammie Maharaj MD POINT OF CARE TEST ENTER/E DIT ORDERABLES Final Result * Lactic Acid (12/08/2024 1:12 AM EST) Pathologist [facility] Lactic Acid 1.6 0.5 - 2.0 mmol/L [facility] 12/08/2024 1:12 AM EST 12/08/2024 1:16 AM EST us Generic External Data Provider LAB BLOOD ORDERAB LES Final Result [facility] [address] [place], [place] [phone] * (ABNORMAL) CBC auto differential (12/07/2024 7:25 PM EST) Only the most recent of2 resultswithin the time period is included. White Blood Count 7.6 4.8 - 10.8 X10*3/uL [facility] Red Blood Count 3.43(L) 4.20 - 5.50 X10*6/uL [facility] Hemoglobin 11.1(L) 12.0 - 16.0 g/dl [facility] Hematocrit 31.0(L) 37.0 - 47.0 % [facility] Mean Corpuscular Volume 90.4 80.0 - 98.0 fL [facility] Mean Corpuscular Hemoglobin 32.4 27.0 - 33.0 pg [facility] Mean Corpuscular HGB Conc 35.8(H) 31.0 - 35.0 g/dl [facility] Red Cell Distribution Width 13.5 11.0 - 16.0 % [facility] Platelet Count 140(L) 160 - 400 X10*3/uL [facility] Mean Platelet Volume 12.4(H) 9.4 - 12.3 fL [facility] Neutrophils Percent Auto 86.3(H) 45 - 73 % [facility] Imm Gran Pct Auto 2.8(H) 0.0 - 0.4 % [facility] Lymphocytes Percent Auto 5.6(L) 20 - 40 % [facility] Monocytes Percent Auto 4.9 2 - 11 % [facility] Eosinophils Percent Auto 0.1 0 - 4 % [facility] Basophils Percent Auto 0.3 0 - 2 % [facility] NRBC Pct Auto 0.0 0.0 - 0.2 /100WBC [facility] Neutrophils Absolute Auto 6.6 2.0 - 8.3 x10*3/uL [facility] Imm Gran Abs Auto 0.21(H) 0.00 - 0.03 X10*3/uL [facility] Lymphocytes Absolute Auto 0.4(L) 1.2 - 4.9 X10*3/uL [facility] Monocytes Absolute Auto 0.4 0.1 - 1.2 X10*3/uL [facility] Eosinophils Absolute Auto 0.0 0.0 - 0.4 X10*3/uL [facility] Basophils Absolute Auto 0.0 0.0 - 0.2 X10*3/uL [facility] NRBC Abs Auto 0.000 0.0 - 0.012 X10*3/uL [facility] 12/07/2024 7:25 PM EST 12/07/2024 7:31 PM EST Generic External Data Provider LAB BLOOD ORDERAB LES Final Result Performing Organization Address [facility] Co de Phone Number [facility] [address] [place] [phone] * (ABNORMAL) Prothrombin Time-INR (12/07/2024 7:25 PM EST) Prothrombin Time 19.7(H) 10.9 - 12.4 SEC [facility] INTERNATIONAL NORM RATIO 1.7(H) 0.9 - 1.1 [facility] Comment:INTERNATIONAL NORMAL IZED RATIO (INR) [...] ORDERAB LES Final Result Performing Organization Address [facility] Co de Phone Number [facility] [address] [place] [phone] * (ABNORMAL) C-reactive Protein (12/07/2024 7:25 PM EST) Only the most recent of2 resultswithin the time period is included. C Reactive Protein 17.40(H) < or = 0.50 mg/dL [facility] 12/07/2024 7:25 PM EST 12/07/2024 7:31 PM EST us Generic External Data Provider LAB BLOOD ORDERAB LES Final Result Performing Organization Address [facility]/ZIP Co de Phone Number [facility] [address] [place] [phone] * Magnesium (12/07/2024 7:25 PM EST) Magnesium 1.9 1.6 - 2.6 mg/dL [facility] 12/07/2024 7:25 PM EST 12/07/2024 7:31 PM EST Generic External Data Provider LAB BLOOD ORDERAB LES Final Result Performing Organization Address [facility] Co de Phone Number [facility] [address] [place] [address] [phone] * (ABNORMAL) Ammonia, Plasma (12/07/2024 7:25 PM EST) Only the most recent of2 resultswithin the time period is included. Ammonia (P) 66(H) 13 - 55 umol/L [facility] 12/07/2024 7:25 PM EST 12/07/2024 7:31 PM EST Generic External Data Provider LAB BLOOD ORDERAB LES Final Result Performing Organization Address [facility]/ZIP Co de Phone Number [facility] [address] [place] [address] [phone] * (ABNORMAL) Hepatic Function Panel (12/07/2024 7:25 PM EST) Only the most recent of3 resultswithin the time period is included. Bilirubin, Total 8.9(H) 0.0 - 1.0 mg/dL [facility] Comment:Mild Icterus. Bilirubin, Direct 7.2(H) 0.0 - 0.5 mg/dL [facility] Comment:Mild Icterus. Aspartate Amino Transferase 108(H) 5 - 31 U/L [facility] Alanine Aminotransferase 103(H) 0 - 31 U/L [facility] Total Protein 6.0(L) 6.5 - 8.0 g/dL [facility] Albumin Level 2.6(L) 3.5 - 5.0 g/dL [facility] Alkaline Phosphatase 831(H) 39 - 117 U/L [facility] 12/07/2024 7:25 PM EST 12/07/2024 7:31 PM EST us Generic External Data Provider LAB BLOOD ORDERAB LES Final Result [facility] [address] [place] [phone] * (ABNORMAL) Basic Metabolic Panel (12/07/2024 7:25 PM EST) Only the most recent of2 resultswithin the time period is included. Sodium 134(L) 135 - 145 mmol/L [facility] Potassium 3.5 3.3 - 5.1 mmol/L [facility] Chloride 104 96 - 108 mmol/L [facility] Carbon Dioxide 21(L) 22 - 29 mmol/L [facility] Anion Gap 13 12 - 20 [facility] Urea Nitrogen (BUN) 15 9 - 16 mg/dL [facility] Creatinine, Serum 0.63 0.5 - 1.4 mg/dL [facility] Creatinine Clr Calc Pharmacy 79.5 [facility] Comment:Provided height and weight: 144.78 cm,51.5 kg.eGFR (calculated from the MDRD study equation) and eCrCl(calculated from the Cockcroft-Gault equation) are based ondifferent parameters and may not yield comparable results.If eCrCl result is absurd, please check patient'sheight/weight. Estimated Glomerular Filt Rate >60 [facility] Comment:Chronic Kidney Disea se: Estimated GFR < 60 mL/min/1.15w2Bqqtvd Kidney Disease: Estimated GFR < 15 mL/min/1.73m2 Glucose 311(H) 60 - 115 mg/dL [facility] Calcium 8.2(L) 8.4 - 10.2 mg/dL [facility] 12/07/2024 7:25 PM EST 12/07/2024 7:31 PM EST us Generic External Data Provider LAB BLOOD ORDERAB LES Final Result Performing Organization Address [facility] Co de Phone Number [facility] [address] [place] [address] [phone] * (ABNORMAL) Sed Rate by Modified Westergren (12/07/2024 7:24 PM EST) Only the most recent of2 resultswithin the time period is included. Erythrocyte Sedimentation Rate 73(H) 0 - 20 MM/HR [facility] Comment:Patients with polycy themia and many hemoglobin abnormalitiesmay have depressed sed rates whereas patients with anemiamay have elevated sed rates. 12/07/2024 7:24 PM EST 12/07/2024 7:31 PM EST us Generic External Data Provider LAB BLOOD ORDERAB LES Final Result Performing Organization Address [facility] Phone Number [facility] [address] [place] [phone] * Albumin, Random Urine W/Creatinine (11/05/2024 10:20 AM EST) Creatinine, Urine 59.34 mg/dL [facility] Microalbumin Urine <5.0 mg/L [facility] Microalbum Creatinine Ratio Ur TNP <30 ug/mg cr [facility] Comment:Unable to calculate albumin/creatinine ratio due to lowmicroalbumin or creatinine result. Urine 11/05/2024 10:2 0 AM EST 11/05/2024 11:21 AM EST us Sammie Maharaj MD LAB URINE ORDERABLES Final Result Performing Organization Address [facility] Co de Phone Number [facility] [address] [place] [phone] * (ABNORMAL) Lipid Panel, Standard (10/24/2024 9:59 AM EST) Triglycerides 91 <150 mg/dL [facility] Comment:Mild Icterus.Interpr et result with caution.Desirable Triglyceride: less than 150 mg/dLBorderline High Triglyceride 150-199 mg/dLHigh Triglyceride: 200-499 mg/dLVery High Triglyceride: greater than or equal to 5OO mg/dL Cholesterol 132 <200 mg/dL [facility] Comment:Mild Icterus.Interpr et result with caution.Desirable Cholesterol: less than 200 mg/dLBorderline High Cholesterol: 200-239 mg/dLHigh Cholesterol: greater than 239 mg/dL LDL Cholesterol Calculated 92 <100 mg/dL [facility] Comment:Desirable LDL: less than 100 mg/dLNear Optimal/Above Optimal LDL: 110- 129 mg/dLBorderline High LDL: 130-159 mg/dLHigh LDL: 160-189 mg/dLVery High LDL: greater than or equal to 190 mg/dL HDL Cholesterol 22(L) >40 mg/dL [facility] Comment:Desirable HDL: great er than 40 mg/dL Note: This HDL assay may give artificially low results in patients with liver disease. Blood Venous blood specimen / Unknown 10/24/2024 9:59 AM EST 10/24/2024 11:05 AM EST Sammie Maharaj MD LAB BLOOD ORDERABLES Final Result [facility] [address] [place] [phone] * POCT glycosylated hemoglobin (Hgb A1c) (07/09/2024 3:59 PM EDT) Hemoglobin A1C 4.6 4.0 - 6.0 % QC Media Lot # [id number] Lot# Expiration Date [id number] Blood Capillary blood specimen / Unknown 07/09/2024 3:59 PM EDT us Sammie Maharaj MD POINT OF CARE TEST ENTER/E DIT ORDERABLES Final Result * BI Mammogram Screening Tomosynthesis Bilateral (09/06/2023 10:14 AM EST) Anatomical Region Laterality Modality Breast Bilateral Mammography 09/06/2023 10:1 4 AM EST Narrative 09/19/2023 10:41 AM EST ? [facility] [place] ? [address] ?[place] [address] ? Mammography Report ? Signed ? Patient: Aubrie Brewer ?MR#: M ?? [id number] ? : 1980 ?Acct:[id number] ? Age/Sex: 43 / F ?ADM Date: 09/06/ ? Loc: HO.MAMMO ? Attending Dr: Sammie Maharaj MD ? Ordering Physician: Sammie Maharaj MD ?Results: 1N ?? egative ? Date of Service: 09/06/ ?Follow Up: 1 Year From Orig ?? inal Mammogram ? Procedure(s): MM tomosynthesis screening BI ?? Accession Number(s): [id number] ? cc: Sammie Maharaj MD ? EXAMINATION: [...] 1037 ? DD/ 1014 ? TD/TT: ? Wool Grader: ? Procedure Note Avitatypbkatt, Image - 09/19/2023 [facility] [address] [place] [address] Mammography Report Signed Patient: Aubrie Brewer#: M [id number] : 1980Acct:[id number] Age/Sex: 43 / FADM Date: 09/06/23 Loc: HO.MAMMO Attending Dr: Sammie Maharaj MD Ordering Physician: Sammie Maharaj MDResults: 1N egative Date of Service: 09/06/23Follow Up: 1 Year From Orig inal Mammogram Procedure(s): MM tomosynthesis screening BI Accession Number(s): [id number] cc: Sammie Maharaj MD EXAMINATION: MM SCREENING [...] in OV> 09/19/23 1037 DD/ 1014 TD/TT: Wool Grader: us Sammie Maharaj MD IMG BI PROCEDURES Final Re sult * Hepatitis C Ab (07/28/2023 10:55 AM EDT) Hepatitis C Antibody Nonreactive Nonreactive [facility] Comment:Antibodies to HCV no t detected; does not exclude early acuteHCV infection. Blood 07/28/2023 10:5 5 AM EDT 07/28/2023 1:11 PM EDT us Sammie Maharaj MD LAB BLOOD ORDERABLES Final Result [facility] [address] [place] [phone] * HIV Ab/Ag ([facility]) (07/28/2023 10:55 AM EDT) HIV AB/AG Nonreactive Nonreactive [facility] Comment:HIV-1 p24 Ag and/or HIV-1/HIV-2 Ab not detected.A test result that is nonreactive does not exclude thepossibility of exposure to or infection with HIV-1 and/orHIV-2. Nonreactive results in this assay for individualswith prior exposure to HIV-1 and/or HIV-2 may be due toantigen and antibody levels that are below the limit ofdetection of this assay.The BionaturisniTM HIV Ag/Ab Combo assay result andsupplemental assay results should be interpreted inconjunction with the patient's clinical presentation,history and other laboratory results. If the results areinconsistent with clinical evidence, additional testing issuggested to confirm the result. 07/28/2023 10:5 5 AM EDT 07/28/2023 1:11 PM EDT Sammie Maharaj MD LAB BLOOD ORDERABLES Final Result Performing Organization Address [facility]/ZIP Co de Phone Number [address] [phone] * Pap Smear (03/25/2021 12:00 AM EDT) Swab Brendon Provider LAB CYTOLOGY ORDERABLES F inal Result IMAGING from Last 3 Months or Most Recently Relevant to Health Maintenance Insurance [facility] Advance Directives Documents on File Type Date Recorded Patient Bottle Blower Expl anation Advance Directives and Living Will 07/09/2024 Health Care Proxy 07/09/24 Care Teams Electric Motor Tester Relationship Specialty Start Date End Date Nicko, MD Sammie [address] [place] [phone] PCP - General Family Medicine 10/10/18 Loyda Glaser RN [address] [place] [phone] Garden Equipment Mechanic Family Medicine 10/31/23 Yasmin Ho MD [address] [place] [phone] Gastroenterology 08/29/24 Manuel Carpenter PA [facility] [id number] Neurology 08/29/24 Paola Tolentino NP [address] [phone] Endocrinology 10/24/24 [facility] Psychology Psychology 12/19/24
--- OUTSIDE RECORDS SUMMARY | 2025-01-07 15:31 | XMS_ITS | Encounter Summary ---
Demographics Address [address] [facility] [address] [place] [address] Home Phone Mobile Phone Preferred Language Maltese; Castilian Marital Status Single Sikh Affiliation Unknown Race Unknown Ethnic Group Unknown Author Organization [facility] Address [address] [place] [address] Support Name Relationship Address Phone Orion Rubio Daughter [address] [facility] [address] [place] [address] Care Team Providers Care Cesspool Cleaner Name Role Phone Sammie Maharaj Primary Care Provider [phone] Encounter Details Date Type Department Care Team (Late st Contact Info) Description 11/04/2023 Orders Only [facility] Interventional Radiology [address] [place] [phone] Duncan Ragland MD [address] [place] [phone] Social History Tobacco Use Types Packs/Day Years [...] Info) Description 01/08/2025 8:00 AM EDT Follow-Up [facility] [address] [place] [address] Yasmin Ho MD [address] [place] [phone] 03/22/2025 3:30 PM EDT Office Visit [facility] [address] [place] [phone] Safety Deposit Supervisor: Natasha Rubalcava MD [address] [place] [phone] 07/17/2025 8:00 AM EDT Office Visit [facility] [address] [place] [phone] Safety Deposit Supervisor: Paola Vance NP [address] [place] [phone] 08/06/2025 8:00 AM EDT Office Visit [facility] [address] [place] [phone] Manuel Carpenter PA [address] [place] [phone] documented as of this encounter Visit Diagnoses Not on filedocumented in this encounter Care Teams Cesspool Cleaner Relationship Specialty Start Date End Date Sammie Maharaj [address] [place] [phone] PCP - General Family Medicine 05/15/18 documented as of this encounter
--- OUTSIDE RECORDS SUMMARY | 2025-01-07 15:31 | XMS_ITS | Data Portability ---
Author Organization [employer] Address [address] [place] [phone] Care Team Providers Care Brownell Operator Name Role Phone [facility] OTHER [phone] [facility] OTHER Assessment No assessment recorded. Plan of Treatment Reminders Order Date Submit Date Provider Last Modified By Organization Details Last Modified Time Details Appointments None record ed. Lab None record ed. Referral None record ed. Procedures None record ed. Surgeries None record ed. Imaging None record ed. Medication Orders None record ed. Patient TargetsNo targets recorded. Patient InstructionsNo instructions recorded. Reason for Referral None Reported. Medical Equipment None Reported. Allergies Allergen ID Allergen Name Allergen Category Reaction Reaction Severity Criticality Documentation Date Start Date Code Code System Note Provider Name and Address Organization Details Recorded Time 80519 acetamino phen medicatio n Not available Not available Not available 12/07/2024 161 RxNorm Not Available [facility] - production 12:30:55 95730 latex environme nt,medica tion Not available Not available Not available 12/07/2024 68177 91 RxNorm Not Available [facility] - production 12:30:55 Medications Name Sig Start Date Stop Date Status Note LastModified by Organization Details LastModified Time prednisone 20 mg tablet TAKE 1 TABLET BY MOUTH EVERY DAY, FOR 5 DAYS active Not Available Not Available N ot Available zonisamide 100 mg capsule TAKE 2 CAPSULES (200 MG TOTAL) BY MOUTH AT BED TIME. active Not Available Not Available No t Available ciclopirox 8 % topical solution APPLY TOPICALLY AT BEDTIME. APPLY TO AFFECTED NAILS active Not Available Not Available No t Available vitamin A 3,000 mcg (10,000 unit) capsule TAKE 1 CAPSULE (10,000 UNITS TOTAL) BY MOUTH ONCE A DAY. active Not Available Not Available No t Available ursodiol 250 mg tablet TAKE 1 TABLET BY MOUTH THREE TIMES A DAY active Not Available Not Available No t Available oxycodone 5 mg tablet active Not Available Not Available No t Available ferrous gluconate 324 mg (38 mg iron) tablet TAKE 1 TABLET BY MOUTH TWICE A DAY active Not Available Not Available No t Available cholecalcifer ol (vitamin D3) 1,250 mcg (50,000 unit) capsule TAKE 1 CAPSULE BY MOUTH ONE TIME PER WEEK active Not Available Not Available No t Available Lantus Solostar U-100 Insulin 100 unit/mL (3 mL) subcutaneous pen INJECT 24 UNITS UNDER THE SKIN AT BEDTIME. active Not Available Not Available No t Available TRUEplus Lancets 33 gauge TEST BLOOD SUGAR THREE TIMES DAILY active Not Available Not Available No t Available FreeStyle Precision Bob Strips USE DIRECTED TO TEST BLOOD SUGAR THREE TIMES DAILY WHEN sensor fails active Not Available Not Available No t Available BD Sandy 2nd Gen Pen Needle 32 gauge x 5/32 USE TO ADMINSTER INSULIN NIGHTLY active Not Available Not Available No t Available FreeStyle [place] 2 Sensor kit USE DIRECTED. CHANGE EVERY 14 DAYS active Not Available Not Available No t Available FreeStyle [place] 3 Williams active Not Available Not Available Not Available FreeStyle [place] 3 Plus Sensor device active Not Available Not Availabl e Not Available Vitals Date Recorded Heart rate Oxygen saturation Oxygen saturation in Arterial blood by Pulse oximetry Respiratory rate Body temperature Systolic blood pressure Diastolic blood pressure Provider Name and Address Organization Details Last Updated DateTime 5 74 /min 98 % 98 % 18 /min 98.8 [degF] 110 mm[Hg] 62 mm[Hg] Not Available [employer] [facility] - production 5 18:33:29 Social History None recorded. Functional Status None recorded. Mental Status None recorded. Family History Nothing Reported. Medical History No medical history recorded. Gynecological HistoryNo gynecological history recorded. Obstetrics History GPAL:G 0 P 0 0 0 0 Past Encounters Encounter ID Performer Location Encounter Start Date Encounter Closed Date Diagnosis/Indication Diagnosis SNOMED-CT Code Diagnosis ICD10 Code Diagnosis Note [id number] Mi Chen MD [facility] [address] [place] [phone] 12/14/2024 18:33:24 12/14/2024 20:52:08 Bilateral lower limb edema 369911101 R60.0 As noted, we were called to see this patient regarding concerns of LE swelling. Evaluation in the field was performed by my electrical and instrumentation manager colleague, as noted above, I provided real-time direction and supervisio n for this visit. The evaluation revealed 44 yo woman with prior stroke, end stage liver disease, recent ear infection treated with antibiotic s and steroids who has had several days of nonpitting edema, intermitte ntly up to knees. She previously had facial swelling, now resolved.S he is eating well, has no n/v or dizziness. Impression :steroids induced LE swelling Plan:encou rage elevation of legs, consider compressio n socks. If persistent in the next few weeks would call hepatologi st for repeat labs. Dispositio n: We discussed the diagnostic uncertaint y of home visits and the risk associated with this. In this case, the patient and I felt this to be an acceptable and reasonable amount of risk given the benefit of avoiding an ED visit. We discussed the need to seek care urgently/e mergently in the setting of any new or worsening serious symptoms, particular ly changes to consciousn ess, chest pain, dyspnea. Health Concerns Section Related Observation LastModified by Organization Detai ls LastModified Time None Recorded Concern Status LastModified by Organization Details LastModified Time None Recorded Advance Directives Directive None Recorded Payers Encounter Date Sequence Insurance Name Policy Number Policy Watson Covered Member ID Watson Member ID Guarantor Name 12/14/2024 1 [facility] - DOS ON OR AFTER 2023 - DUAL ELIGIBLE - ALF OPTIONS AND ONE CARE (MEDICARE REPLACEMENT/ADV ANTAGE - HMO) Aubrie Mario [id number] Aubrie Mario Notes Date Note Type Note Provider Name and Address Organization Details Recorded Time 12/14/2024 text/html [facility] Nurse Triage Notes (Kelsy Gonzalez): Reason For Request: Pt's daughter reporting swelling of both lower extremities> Chief Complaints: Extremity Swelling PMH: Depression, Diabetes Mellitus Type 2, Stroke PMH Reviewed at 12/14/2024 - 14:07 Allergies Reviewed at 12/14/2024 - :07 Pain Assessment: Level null out of 10 Comments: c/o bilateral lower leg swelling, denies SOB/chest pain No redness/open wounds: blood sugar as been normal. New problem w/ lower leg swelling. hx of CVA, left sided weakness/speech impairment Mobility not affected. No blood thinners/diuretics. In the hospital for ear infection- no active ABX info provided by daughter Barrel Cleaner verified the name//address and phone number. Education provided on the response time and the Patient was advised to monitor reported s/s and seek emergency treatment if needed Curriculum Assistant Principal Organization Information for Duncan Romero [employer] Business Legal Name: [employer]? Address: [address] [place] [address] [place] [address], International Marketing Coordinator: Kris MUNOZ No.: [id number] Curriculum Assistant Principal POC Test Results from Duncan Romero [employer] Blood Glucose Measurement (18:33:13) Blood Glucose: 230 mg/dL ................... ................... ................... ................... ................... ................... ................... ........ Curriculum Assistant Principal Note From Duncan Romero: Arrived to find a 44-year-old Citizen Of [place]-speaking female in the apartment with daughter which was able to translate. Daughter initiated visit due to increased edema in her lower extremities bilaterally, worse 48 hours ago, but today has been significantly improving Patient two weeks ago started with right sided facial edema. That became infectious. Patient was treated with a short course of prednisone that she finished yesterday and level of fluoxetine that she? s due to finish in two days. Infection has significantly improved, patient denies any nausea, vomiting, diarrhea, fever, chills, chest pain, shortness of breath, or other pain, discomfort, or symptoms. Vital signs as noted, exam is unremarkable with the infection looking significantly better, abdomen, soft, lung sounds clear and equal with tidal volume. Slight non-petting edema bilateral to the superior side of the distal feet. No edema noted in ankles or lower extremities. Contact of [facility] and discuss patient presentation, assessment, and vitals. Thought at this time is that the Annika? s due to the short course of prednisone and should continue to improve. Education done to keep feet elevated when possible. If worsening edema comes back to follow up with her doctors. Red flags discussed with patient that required 911 activation, and patient advised to call back with any changes, concerns, or questions. Fingerstick was completed and patient is currently eating dinner and will be taking her nightly Insulin dose shortly. ................... ................... ................... ................... ................... ................... ................... ........ [facility] Consulted: Mi Chen ................... ................... ................... ................... ................... ................... ................... ........ Disposition: Sheng Chen MD [address] [facility],[address], [place], [phone], [employer] 12/14/2024 20:17:46 OBGyn Episode No OBEpisode recorded.
--- OUTSIDE RECORDS SUMMARY | 2025-01-07 15:31 | XMS_ITS | Encounter Summary ---
Demographics Address 17 [facility] [address] [place] [address] Home Phone Mobile Phone Preferred Language Trinidadian; Castilian Marital Status Single Sabianism Affiliation Unknown Race Unknown Ethnic Group Unknown Author Organization [facility] Address [address] [place] [address] Support Name Relationship Address Phone Orion Rubio Daughter 17 [facility] [address] [place] [address] Care Team Providers Care Weight Loss Consultant Name Role Phone Sammie Maharaj Primary Care Provider [phone] Encounter Details Date Type Department Care Team (Late st Contact Info) Description 12/14/2023 Orders Only [facility] Interventional Radiology 55 [place] [address] Smith Manzo DO 55 [place] [address] Social History Tobacco Use Types Packs/Day Years [...] Info) Description 01/08/2025 8:00 AM EDT Follow-Up [facility] Liver Transplant Services 55 [place] [address] Yasmin Ho MD 55 [place] [address] 03/22/2025 3:30 PM EDT Office Visit [facility] Diabetes [facility] [address] [place] [address] Envelope Cutter: Natasha Rubalcava MD [address] [place] [address] 07/17/2025 8:00 AM EDT Office Visit [facility] [address] [place] [address] Envelope Cutter: Paola Vance NP [address] [place] [address] 08/06/2025 8:00 AM EDT Office Visit [facility] Neurology Clinic [address] [place] [address] Manuel Carpenter PA [address] [place] [address] documented as of this encounter Visit Diagnoses Not on filedocumented in this encounter Care Teams Weight Loss Consultant Relationship Specialty Start Date End Date Sammie Maharaj [address] [place] [address] PCP - General Family Medicine 05/15/18 documented as of this encounter
--- OUTSIDE RECORDS SUMMARY | 2025-01-07 15:31 | XMS_ITS | Encounter Summary ---
Author Organization [facility] Address [address] [facility] 7t [place] [address] Care Team Providers Care Venue Attendant Name Role Phone Sammie Maharaj MD Primary Care Provider [phone]- [phone] Loyda Glaser RN Unavailable [phone] Yasmin Ho MD Unavailable [phone] Reason for Visit * Reason Onset Date Comments Nurse Triage 03/22/2023 Encounter Details Date Type Department Care Team (Late st Contact Info) Description 03/22/2023 Telephone [facility] MEDICINE [address] [place] [address] Sammie Maharaj MD 230 [place], [place] [phone] Nurse Triage Social History Tobacco Use Types [...] 03/22/2023 2:01 PM EDT Triage call with [employer] Consultant [place] [id number] Pt didn't answer left message to call [facility] triage line at [phone]. Triage call with [employer] Consultant [place] [id number] Pt answered, Pt wasn't able to say [...] Description 02/25/2025 9:00 AM EDT Office Visit [facility] OPTOMETRY [address] [place] [address] Mckay, Darshana, OD 230 [place] [address] 03/25/2025 9:45 AM EDT Office Visit [facility] MEDICINE 230 [place] [address] Sammie Maharaj MD 230 [place] [address] documented as of this encounter Visit Diagnoses Not on filedocumented in this encounter Care Teams Venue Attendant Relationship Specialty Start Date End Date Sammie Mahraaj MD [address] [place] [address] PCP - General Family Medicine 10/10/18 Loyda Glaser RN [address] [place] [address] Youth Corrections Officer Family Medicine 10/31/23 Yasmin Ho MD [address] [place] [address] Gastroenterology 08/29/24 Manuel Carpenter PA U [address] [address] Neurology 08/29/24 Paola Tolentino NP [address] [address] Endocrinology 10/24/24 [facility] Psychology Psychology 12/19/24 documented as of this encounter
--- OUTSIDE RECORDS SUMMARY | 2025-01-07 15:31 | XMS_ITS | Encounter Summary ---
Author Organization [employer] Address 75 [facility] 7t [place] [address] Care Team Providers Care Card Stripper Name Role Phone [place], Sammie JOHNSON Primary Care Provider [phone]- [phone] Loyda Glaser RN Unavailable [phone] Yasmin Ho MD Unavailable [phone] Reason for Visit * Reason Onset Date Comments No Show 04/21/2023 Encounter Details Date Type Department Care Team (Late st Contact Info) Description 04/21/2023 Telephone [facility] MEDICINE 230 [place] [address] Hansa Chung RN 230 [place] [address] No Show Social History Tobacco Use Types [...] and declined as she is traveling to [facility] tomorrow morning and whill not be [...] 04/21/2023 12:30 PM EDT Call received from [facility], regarding critical lab result. Pt glucose [...] 9:00 AM EDT Office Visit [facility] OPTOMETRY [address] [place] [address] Darshana Bashir, SAM 230 [place] [address] 03/25/2025 9:45 AM EDT Office Visit [facility] MEDICINE [address] [place] [address] Sammie Maharaj MD 230 [place] [address] documented as of this encounter Visit Diagnoses Not on filedocumented in this encounter Care Teams Card Stripper Relationship Specialty Start Date End Date Sammie Maharaj MD 230 [place] [address] PCP - General Family Medicine 10/10/18 Loyda Glaser, RN 230 [place] [address] [facility] Family [facility] 10/31/23 Yasmin Ho MD [address] [place] [address] Gastroenterology 08/29/24 Manuel Carpenter PA [facility] 55 [facility] [address] Neurology 08/29/24 Paola Tolentino, HEBERT [address] [address] Endocrinology 10/24/[address] [facility] Psychology Psychology 12/19/24 documented as of this encounter
--- OUTSIDE RECORDS SUMMARY | 2025-01-07 15:31 | XMS_ITS | Encounter Summary ---
Demographics Address 17 [facility] 2 [place] [address] Home Phone Mobile Phone Preferred Language Stateless; Castilian Marital Status Single Sikhism Affiliation Unknown Race Unknown Ethnic Group Unknown Author Organization [facility] Address [address] [place] [address] Support Name Relationship Address Phone Orion Rubio Daughter 17 [facility] [address] [place] [address] Care Team Providers Care Environmental Officer Name Role Phone Sammie Maharaj Primary Care Provider [phone] Encounter Details Date Type Department Care Team (Late st Contact Info) Description 11/03/2023 Orders Only [facility] Interventional Radiology [address] [place] [address] Duncan Ragland MD [address] [place] [address] Social History Tobacco Use Types Packs/Day Years [...] Info) Description 01/08/2025 8:00 AM EDT Follow-Up [facility] Liver Transplant Services 55 [place] [address] Yasmin Ho MD [address] [place] [address] 03/22/2025 3:30 PM EDT Office Visit [facility] Diabetes Clinic [address] [place] [address] Serology Teacher: Natasha Rubalcava MD [address] [place] [address] 07/17/2025 8:00 AM EDT Office Visit [facility] Diabetes Clinic [address] [place] [address] Serology Teacher: Paola Vance NP [address] [place] [address] 08/06/2025 8:00 AM EDT Office Visit [facility] Neurology Clinic [address] [place] [address] Manuel Carpenter PA [address] [place] [address] documented as of this encounter Visit Diagnoses Not on filedocumented in this encounter Care Teams Environmental Officer Relationship Specialty Start Date End Date Sammie Maharaj [address] [place] [address] PCP - General Family Medicine 05/15/18 documented as of this encounter
--- OUTSIDE RECORDS SUMMARY | 2025-01-07 15:31 | XMS_ITS | Encounter Summary ---
Author Organization [employer] Address [address] [facility] [address] 7t [place] [address] Care Team Providers Care Media Technician Name Role Phone Sammie Maharaj MD Primary Care Provider [phone] Loyda Glaser RN Unavailable [phone] Yasmin Ho MD Unavailable Reason for Visit * Reason Comments Med Refill Encounter Details Date Type Department Care Team (Late st Contact Info) Description 10/25/2023 Refill [facility] 230 [place], [place] [phone] Sammie Maharaj MD 230 [place], [place] [phone] Microcytic anemia Social History Tobacco Use Types [...] Description 02/25/2025 9:00 AM EDT Office Visit [facility] OPTOMETRY 267 [place] [address] Mckay, Darshana, OD 230 [place] [address] 03/25/2025 9:45 AM EDT Office Visit [facility] MEDICINE 230 [place] [address] Sammie Maharaj MD 230 [place] [address] documented as of this encounter Visit Diagnoses Diagnosis Microcytic anemia Unspecified iron deficiency anemia documented in this encounter Additional Health Concerns Assessment Noted Time PHQ-9 Depression Total Score: 0 07/28/20 23 9:42 AM EDT documented as of this encounter Care Teams Media Technician Relationship Specialty Start Date End Date Sammie Maharaj MD [address] [place] [address] PCP - General Family Medicine 10/10/18 Loyda Glaser, ERVIN 230 [place] [address] Steam Fitter Helper Family Medicine 10/31/23 Yasmin Ho MD 55 [place] [address] Gastroenterology 08/29/24 Manuel Carpenter PA [facility] 55 [facility] [address] Neurology 08/29/24 Paola Tolentino, HEBERT [address] [address] Endocrinology 10/24/24 [facility] Psychology Psychology 12/19/24 documented as of this encounter
--- OUTSIDE RECORDS SUMMARY | 2025-01-07 15:31 | XMS_ITS ---
Demographics Address 17 [facility] 2 [place] [address] Home Phone Mobile Phone Preferred Language Hungarian; Castilian Marital Status Single Mu-Ism Affiliation Unknown Race Unknown Ethnic Group Unknown Author Organization [facility] Address [address] [place] [address] Support Name Relationship Address Phone Orion Rubio Daughter 17 [facility] [address] [place] [address] Care Team Providers Care Accredited Farm Manager Name Role Phone Kenney Maharajhanie Sujit Primary Care Provider [phone] Transplant Episode Liver Candidate [facility] ([place], [place]) - [facility] waitlisted on 12/30/2023 Marked as Active on 12/30/2023 Liver CoordinatorKaty Boateng RN Phone: N/A Fax: N/A Email: N/A Scores Score Value Updated Expires Exceptions/[place] sons CPRA Not available UNOS MELD 17 01/07/2025 04/07/2025 MELD (Calc) 17 12/24/2024 [place] [facility] Diagnosis Organ Primary 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
== END 2025-01-07 13:46 | disposition home or self-care (01) ==
LOC: HO.CT 13:45
PROVIDERS: PCP Family Medicine; Visit Provider Internal Medicine
DX: K74.69 Other cirrhosis of liver (principal)
CPT/HCPCS: 74160; Q9967

== ENCOUNTER → 2025-01-07 13:50 | Outpatient (BNV) | payer OTHER, SELFPAY | PROVIDERS: PCP Family Medicine; Visit Provider Radiology Diagnostic Radiology | DX: K74.60 Unspecified cirrhosis of liver (principal) | CPT/HCPCS: 74160 ==

== ENCOUNTER 2025-01-25 07:24 | Outpatient (REF) | payer OTHER, SELFPAY ==
--- OUTSIDE RECORDS SUMMARY | 2025-01-25 07:27 | XMS_ITS | Encounter Summary ---
Demographics Address 17 [facility] [address] [place] [address] Home Phone Mobile Phone Preferred Language Comoran; Castilian Marital Status Single Worship Affiliation Unknown Race Unknown Ethnic Group Unknown Author Organization [facility] Address [address] [place] [address] Support Name Relationship Address Phone Orion Rubio Daughter 17 [facility] [address] [place] [address] Care Team Providers Care Mold Hoister Name Role Phone Sammie Maharaj Primary Care Provider [phone] Encounter Details Date Type Department Care Team (Late st Contact Info) Description 01/08/2025 Results Follow-Up [facility] Liver Transplant Services [address] [place] [address] Katy Boateng RN Social History Tobacco Use [...] Care Team (Late st Contact Info) Description 03/22/2025 3:30 PM EDT Office Visit [facility] Diabetes Clinic [address] [place] [address] Technical Buyer: Natasha Rubalcava MD [address] [place] [address] 04/09/2025 9:00 AM EDT Follow-Up [facility] Liver Transplant Services [address] [place] [address] Yasmin Ho MD 55 [place] [address] 07/17/2025 8:00 AM EDT Office Visit [facility] Diabetes Clinic [address] [place] [address] Technical Buyer: Paola Vance NP [address] [place] [address] [place] [address] 08/06/2025 8:00 AM EDT Office Visit [facility] Neurology Clinic [address] [place] [address] Manuel Carpenter PA [address] [place] [address] documented as of this encounter Visit Diagnoses Not on filedocumented in this encounter Care Teams Mold Hoister Relationship Specialty Start Date End Date Sammie Maharaj [address] [place] [address] PCP - General Family Medicine 05/15/18 documented as of this encounter
--- OUTSIDE RECORDS SUMMARY | 2025-01-25 07:27 | XMS_ITS | Encounter Summary ---
Demographics Address 17 [facility] 2 [place] [address] Home Phone Mobile Phone Preferred Language Macanese; Castilian Marital Status Single Confucianist Affiliation Unknown Race Unknown Ethnic Group Unknown Author Organization [facility] Address [address] [place] [address] Support Name Relationship Address Phone Oroin Rubio Daughter 17 [facility] [address] [place] [address] Care Team Providers Care Customer Acquisition Specialist Name Role Phone Sammie Maharaj Primary Care Provider [phone] Encounter Details Date Type Department Care Team (Late st Contact Info) Description 09/12/2024 Orders Only [facility] Interventional Radiology [address] [place] [address] Eugene Warren MD [address] [place] [address] Social History Tobacco Use Types Packs/Day Years [...] Description 03/22/2025 3:30 PM EDT Office Visit [facility] Diabetes Clinic [address] [place] [address] Svp Business Development: Natasha Rubalcava MD [address] [place] [address] 04/09/2025 9:00 AM EDT Follow-Up [facility] Liver Transplant Services 55 [place] [address] Yasmin Ho MD 55 [place] [address] 07/17/2025 8:00 AM EDT Office Visit [facility] Diabetes Clinic [address] [place] [address] Svp Business Development: Paola Vance NP [address] [place] [address] 08/06/2025 8:00 AM EDT Office Visit [facility] Neurology Clinic [address] [place] [address] Manuel Carpenter PA [address] [place] [address] documented as of this encounter Visit Diagnoses Not on filedocumented in this encounter Care Teams Customer Acquisition Specialist Relationship Specialty Start Date End Date Sammie Maharaj [address] [place] [address] PCP - General Family Medicine 05/15/18 documented as of this encounter
--- OUTSIDE RECORDS SUMMARY | 2025-01-25 07:27 | XMS_ITS | Clinical Summary ---
Author Organization [employer] Address [address] [place] [address] 7t [place] [address] Care Team Providers Care Purchasing Coordinator Name Role Phone ArnoldSammie thompson MD Primary Care Provider [phone] Loyda Glaser RN Unavailable [phone] Yasmin Ho MD Unavailable [phone] Allergies Active Allergy Reactions Criticality Noted Date Comments Acetaminophen 09/09/2014 Other reaction(s): Rash Latex Rash Low 06/29/2023 Medications zonisamide (Zonegran) 100 MG capsuleIndicat ions:Complex partial seizure (CMS/HCC) Take 100 mg by mouth Once per day. Two tab po qhs Active Continuous Glucose Sensor (FreeStyle Charlotte 3 Plus Sensor) miscIndication s:Type 2 diabetes mellitus with hyperglycemia, with long-term current use of insulin (CMS/HCC) [facility] Active insulin glargine (Lantus) 100 UNIT/ML injectionIndic ations:Type 2 diabetes mellitus with hyperglycemia, with long-term current use of insulin (CMS/HCC) Inject under the skin at bedtime. Injecting 14 units daily as directed by client service professional Active ursodiol (Actigall) 250 MG tabletIndicati ons:End stage liver disease (CMS/HCC) Take 250 mg by mouth [address] Marilee SOSA [facility] Active beta carotene (vitamin A) 3 MG (64715 UT) capsuleIndicat ions:End stage liver disease (CMS/HCC) Take 10,000 Units by mouth Once per day. Per SHEILA Perez at [facility] liver CLinic Active insulin pen needle (BD Pen Needle Sandy 2nd Gen) 32G x 4 mm miscIndication s:End stage liver disease (CMS/HCC) Inject under the skin if needed. Use as instructed Active Active Problems Patient Care Coordination No te Formatting of this note migh t be different from the original. [facility] provider line [phone], called 09/29/23 Breanna Burleson [phone]. cell [phone] OBSTETRICS SCRUB NURSE services via BERENICE, CHEPE Mas Problem Noted Date Diagnosed Date Swelling of right ear 12/19/2024 Overview (12/19/2024[place] [facility] [place] Patient presented for evaluation [...] symptoms resolved. Pt called her specialist in [place]. She is doing much better. She showed me a photo of her year that was severely inflamed with vesicles and erythremia. This has resoled and no longer on prednisone. She requests letter to keep her dog at home due to her anxiety. Assessment & Plan (12/19/2024 1:01 PM EDT): [facility] [place] 12/10/2024) Patient presented for evaluation [...] symptoms resolved. Pt called her specialist in [place]. She is doing much better. She showed [...] if needed. I spoke with Liz at [facility] liver transplant clinic, explained the situation and ask them to run the pictures and case by material damage appraiser in case this is not related to [...] Overview (06/01/2024): CT abd pelvis ordered by [facility] liver clinic and dated 01/28/24 [...] appear significantly changed from 2021, possibly reactive. [facility] not from 02/24/24 Telephone Encounter - Katy Boateng RN 10:24 AM LVM for patient using seed cleaner operator, Ari [id number], about results of MRI and scheduling of [...] AM EST): CT abd pelvis ordered by [facility] liver [facility] and dated 01/28/24 IMPRESSION: 1. A [...] appear significantly changed from 2021, possibly reactive. [facility] not from 02/24/24 Telephone Encounter - Kayt Boateng RN 10:24 AM LVM for patient using seed cleaner operator, Ari [id number], about results of MRI and scheduling of [...] AM EDT): CT abd pelvis ordered by [facility] liver [facility] and dated 01/28/24 IMPRESSION: 1. A [...] RN 10:24 AM LVM for patient using seed cleaner operator, Ari [id number], about results of MRI and scheduling of [...] 11/14/2023 Overview (01/18/2024): -she has fired several director business development in the past. I called [facility] provider line [phone], 09/29/23 and spoke to [facility] [phone]. He reported extensive hx of working it pt and she was on the waiting list for starvros. Her OBSTETRICS SCRUB NURSE will be Laxmi Mas her friend. -She has been approved for OBSTETRICS SCRUB NURSE hours but have not started yet as of 01/18/2024 Assessment & Plan (01/18/2024 9:17 AM EDT): -she has fired several director business development in the past. I called [facility] provider line [phone], 09/29/23 and spoke to [facility] [phone]. He reported extensive hx of working it pt and she was on the waiting list for starvros. Her OBSTETRICS SCRUB NURSE will be Laxmi Mas her friend. -She has been approved for OBSTETRICS SCRUB NURSE hours but have not started yet as [...] [facility] -dental home is [facility] -health care proxy paperwork filed 07/09/24 Assessment & Plan (12/19/2024 1:03 PM EDT): -next physical exam due after 07/09/25 -eye care facilitated by [facility] -dental home is [address] -health care proxy paperwork filed 07/09/24 Assessment & Plan (10/24/2024 9:48 AM EST): -next physical exam due after 07/09/25 -eye care facilitated by [facility] -dental home is [address] -health care proxy paperwork given 10/20/23. Filed 07/09/24 Assessment & Plan (07/09/2024 10:17 AM EDT): -next physical exam due after 07/09/25 -eye care facilitated by [facility] -dental home is [facility] -health care proxy paperwork given 10/20/23. Filed 07/09/24 Assessment & Plan (01/18/2024 9:16 AM EDT): -next physical exam due after 07/28/2024 -eye care facilitated by [facility] -dental home is none -health care proxy paperwork given 10/20/23 Assessment & Plan (10/20/2023 9:33 AM EST): -next physical exam due after 07/28/2024 -eye care facilitated by [facility] placed 09/29/23 -dental home is none -health care proxy paperwork given 10/20/23 Assessment & Plan (09/29/2023 11:46 AM EST): -next physical exam due after 07/28/2024 -eye care facilitated by [facility] referral placed 09/29/23 -dental home is none Assessment & Plan (07/28/2023 10:05 AM EDT): -next physical exam due after 07/28/2024 -eye care facilitated by [facility] -dental home is none Type 2 diabetes mellitus 11/19/2021 Overview (12/19/2024): -Followed by [facility] Endocinology Diabetes are controlled. -CGM training done [...] from 18-14 by endo 04/2024 Seen by [facility] endocrinology 04/18/24 Hemoglobin A1c is [...] Plan (12/19/2024 1:03 PM EDT): -Followed by [facility] Endocinology Diabetes are controlled. -CGM training done [...] from 18-14 by endo 04/2024 Seen by [facility] endocrinology 04/18/24 Hemoglobin A1c is [...] from 18-14 by endo 04/2024 Seen by [facility] endocrinology 04/18/24 Hemoglobin A1c is [...] freestyle charlotte 3 CGM. Assessment & Plan (07/09/2024 [...] from 18-14 by endo 04/2024 Seen by [facility] endocrinology 04/18/24 Hemoglobin A1c is [...] approval for her to upgrade to the [employer] charlotte 3 CGM. Assessment & Plan (01/18/2024 [...] 12/27/2016 End stage liver disease 11/26/2016 Overview (01/08/2025): On liver transplant list since December 2023. 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 Etiology unclear. At times she has had a transient hepatitis B positive test, but that might have been passive after blood transfusion. Last HBV PCR January 2017 was negative. She is followed by [facility] Liver Clinic. -liver biopsy 2018 [...] services with Dr. Yasmin Ho MD of [facility] GI 02/2024, note reviewed: She remains active [...] 202, possibly reactive. -liver biopsy done at [facility] 05/01/24, results pending -liver biopsy [...] Saw Transplant Hepatology and GI specialist at [facility] on 09/11/24. Per note, she remains active on LT waitlist with an updated MELD 3.0 of 19 based on blood work in April 2024. Etiology of her liver disease and progressive jaundice remains unclear despite prior MRI/MRCP and interval liver biopsy in May 2024 which was non-specific with non-specific findings which we reviewed with patient and [id number] again today. We recommended continuation of empiric [...] labs show elevated LFTs. Labs sent to material damage appraiser. 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 Recommending redraw next week with PT and INR to update meld. Lab order was faxed. -reordered labs 12/05/24, stable and ASS aware -CT 01/08/25 with Liver Transplant MD Impression: Cirrhosis status post TIPS. Unchanged intrahepatic biliary ductal dilatation in hepatic segment VII. No liver lesions. Mild increase in splenomegaly. Assessment & Plan (12/19/2024 1:02 PM EDT): [...] 2017 was negative. She is followed by [facility] Liver Clinic. -liver biopsy 2019 [...] services with Dr. Yasmin Ho MD of [facility] GI 02/2024, note reviewed: She remains active [...] 2021, possibly reactive. -liver biopsy done at [facility] 05/01/24, results pending -liver biopsy [...] Saw Transplant Hepatology and GI specialist at [facility] on 09/11/24. Per note, she remains active on LT waitlist with an updated MELD 3.0 of 19 based on blood work in April 2024. Etiology of her liver disease and progressive jaundice remains unclear despite prior MRI/MRCP and interval liver biopsy in May 2024 which was non-specific with non-specific findings which we reviewed with patient and [id number]-bh-zan again today. We recommended continuation of empiric [...] labs show elevated LFTs. Labs sent to material damage appraiser. 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 Recommending redraw next week with PT and INR to update meld. Lab order was faxed. -reordered labs 12/05/24, stable and [facility] aware Assessment & Plan (12/05/2024 2:36 PM [...] 2017 was negative. She is followed by [facility] Liver Clinic. -liver biopsy 2019 [...] services with Dr. Yasmin Ho MD of [facility] GI 02/2024, note reviewed: She remains active [...] 2021, possibly reactive. -liver biopsy done at [facility] 05/01/24, results pending -liver biopsy [...] Saw Transplant Hepatology and GI specialist at [facility] on 09/11/24. Per note, she remains active on LT waitlist with an updated MELD 3.0 of 19 based on blood work in April 2024. Etiology of her liver disease and progressive jaundice remains unclear despite prior MRI/MRCP and interval liver biopsy in May 2024 which was non-specific with non-specific findings which we reviewed with patient and ivspqn-lp-put again today. We recommended continuation of empiric [...] labs show elevated LFTs. Labs sent to material damage appraiser. Due to increased bilirubin, labs were sent to material damage appraiser who reports chronically elevated due to chol [...] 2017 was negative. She is followed by [facility] Liver Clinic. -liver biopsy 2019 [...] services with Dr. Yasmin Ho MD of [facility] GI 02/2024, note reviewed: She remains active [...] 2021, possibly reactive. -liver biopsy done at [facility] 05/01/24, results pending -liver biopsy [...] Saw Transplant Hepatology and GI specialist at [facility] on 09/11/24. Per note, she remains active on LT waitlist with an updated MELD 3.0 of 19 based on blood work in April 2024. Etiology of her liver disease and progressive jaundice remains unclear despite prior MRI/MRCP and interval liver biopsy in May 2024 which was non-specific with non-specific findings which we reviewed with patient and [id number]-pfd again today. We recommended continuation of empiric [...] 2017 was negative. She is followed by [facility] Liver Clinic. -liver biopsy 2019 [...] services with Dr. Yasmin Ho MD of [facility] GI 02/2024, note reviewed: She remains active [...] 2021, possibly reactive. -liver biopsy done at [facility] 05/01/24, results pending -liver biopsy [...] not drive), baths or swimming. Awaiting new OBSTETRICS SCRUB NURSE provider. Daughter aware of how to call 911. Followed by neurologist, -followed by Dr. Jono Eden at [facility]. Next appointment 08/2024 -she self dc? d her aspirin. I recommended she called neurology to get refills on her medication -she has been seizure free with Zonisamide 200 mg nightly and ran out of supplies 6 months ago. I recommend to resume Zonisamide since her risk of recurrent seizure is over 60% due to her prior hemorrhagic stroke. -Saw Neurologist at [facility] 08/20/24, Plan: continue ZNS 200 mg [...] not drive), baths or swimming. Awaiting new OBSTETRICS SCRUB NURSE provider. Daughter aware of how to call 911. Followed by neurologist, -followed by Dr. Jono Eden at [facility]. Next appointment 08/2024 -she self dc? d her aspirin. I recommended she called neurology to get refills on her medication -she has been seizure free with Zonisamide 200 mg nightly and ran out of supplies 6 months ago. I recommend to resume Zonisamide since her risk of recurrent seizure is over 60% due to her prior hemorrhagic stroke. -Saw Neurologist at [facility] 08/20/24, Plan: continue ZNS 200 mg daily and follow up in one year, or sooner if needed. -she has no idea if she is taking this. [facility] referral placed 10/24/24 Assessment & Plan (01/18/2024 [...] not drive), baths or swimming. Awaiting new OBSTETRICS SCRUB NURSE provider. Daughter aware of how to call 911. Followed by neurologist, -followed by Dr. Jono Eden at [facility]. Next appointment 08/2024 -she self [...] -Has follow up on Aug 20 at [facility] Assessment & Plan (10/20/2023 8:57 AM [...] 2017 was negative. She is followed by [facility] Liver Clinic. -liver biopsy 2019 [...] services with Dr. Yasmin Ho MD of [facility] GI 12/12/2023, note reviewed Cirrhosis: -Compensated: Yes [...] diet discussed. Avoid hepatotoxic agents. -Followed by: [facility] GI -continue ursodiol therapy given marked AP elevation and potential for AMA negative PCB. -transplant candidacy will be determined by multidisciplinary transplant committee after all appropriate testing has been performed. -Has follow up with liver transplant business sales consultant on at [facility] -Per pt, On liver transplant list [...] 2017 was negative. She is followed by [facility] Liver Clinic. -seen by Liver [...] diet discussed. Avoid hepatotoxic agents. -Followed by: [facility] GI -continue ursodiol therapy given marked AP elevation and potential for AMA negative PCB. -transplant candidacy will be determined by multidisciplinary transplant committee after all appropriate testing has been performed. -call place by me to CCA care consultant at [facility] [phone] to stress the urgency of OBSTETRICS SCRUB NURSE services and increase level of care. He [...] 2017 was negative. She is followed by [facility] Liver Clinic. -seen by Liver [...] diet discussed. Avoid hepatotoxic agents. -Followed by: [facility] GI -continue ursodiol therapy given marked AP elevation and potential for AMA negative PCB. -transplant candidacy will be determined by multidisciplinary transplant committee after all appropriate testing has been performed. -call place by me to CCA care consultant at [facility] [phone] cell [phone] to stress the urgency of OBSTETRICS SCRUB NURSE services and increase level of care. He [...] 2017 was negative. She is followed by [facility] Liver Clinic. The possibility for [...] in her care. She has had multiple director business development which she has fired and multiple case [...] in her care. She has had multiple director business development which she has fired and multiple case [...] in her care. She has had multiple director business development which she has fired and multiple case [...] in her care. She has had multiple director business development which she has fired and multiple case [...] Encounters Date Type Department Care Team Description 01/15/2025 Telephone [facility] MEDICINE [address] [place] [id number] Sammie Maharaj MD Durable Medical Equipment ([facility] One [facility]: Shower Chair) 12/25/2024 Refill [facility] WALK-IN CENTER [address] [place] [id number] Sammie Maharaj MD Tinarabella unguium 12/19/2024 9:00 AM EDT Office Visit [facility] MEDICINE [address] [place] [id number] Sammie Maharaj MD End stage liver disease (CMS/HCC) (Primary Dx); Type 2 diabetes mellitus with hyperglycemia, with long-term current use of insulin ([facility]/HCC); Complex care coordination; Rash; Swelling of right ear; Anxiety; Other specified health status 12/19/2024 Travel 12/15/2024 Refill [facility] MEDICINE [address] [place] [id number] Sammie Maharaj MD Uncontrolled type 2 diabetes mellitus with hyperglycemia, with long-term current use of insulin (CMS/HCC) 12/10/2024 Patient Outreach [facility] CH[facility] MED & PEDS [address], [place] [phone] Sammie Maharaj MD Transition Of Care (Tcm) (HDF scheduled. ) 12/10/2024 Telephone [facility] MEDICINE [address] [place] [address] [id number] Sammie Maharaj MD Hospital Follow-up; chartprep 12/08/2024 Orders Only GENERIC EXTERNAL DATA DEPARTMENT Provider, Generic External Data End stage liver disease (CMS/HCC) (Primary Dx) 12/07/2024 Orders Only GENERIC EXTERNAL DATA DEPARTMENT Provider, Generic External Data 12/07/[address] [address] Sammie Maharaj MD Nurse Triage 12/05/2024 2:00 PM EST Office Visit [facility] WALK[facility]IN [facility]ENTER [address] [place] [phone] Sammie Maharaj MD End stage liver disease (CMS/HCC) (Primary Dx); Intractable headache, unspecified chronicity pattern, unspecified headache type 12/05/[address] [address] Uma Jiménez, ERVIN 12/05/[address] [address] Sammie Maharaj MD Nurse Triage 12/04/2024 Telephone [facility] [address] [address] Rocio Bell MD 12/03/2024 11:00 AM EST [facility] [address] [address] Rocio Bell MD Atopic dermatitis in adult (Primary Dx); End stage liver disease (CMS/HCC) 12/03/[address] [address] Rosaura Almedia, ERVIN Results (Rocio Bell MD/12/03/2024 5:04 PM EST /Labs showed mild worsening of bili's and alk phos, rule out obstructive fissures or may be autoimmune hepatitis. /Her inflammatory markers are higher as well. She ideally should be seen by circular knitter helper now or run these labs by material damage appraiser, /I spoke with Maria L at [facility] hepatology/transplant clinic and unfortunately no one was available at the office at the time. /She will send this information to the covering providers and have then get back to us, ) 11/13/2024 Refill [facility] [address] [address] Sammie Maharaj MD Tinea unguium 11/02/2024 9:00 AM EST Clinical Support [address] [address] Laya Horan, PharmD Type 2 diabetes mellitus with hyperglycemia, with long-term current use of insulin (CMS/HCC) (Primary Dx); Complex partial seizure (CMS/HCC); End stage liver disease (CMS/HCC) from Last 3 Months Immunizations Name Administration [...] 02/25/2025 9:00 AM EDT Office Visit [facility] OPTOMETRY [address] [place] [address] Darshana Bashir, OD [address], [place] [phone] 03/25/2025 9:45 AM EDT Office Visit [facility] MEDICINE [address] [place], [place] [phone] Sammie Maharaj MD [address], [place] [phone] Health Maintenance Due Date Last Done Comments [...] Procedure Name Priority Date/Time Associated Diagnosis Comments CT ABDOMEN W CONTRAST Routine 01/08/2025 3:53 PM EDT POCT GLUCOSE Routine 12/19/2024 9:09 AM EDT Type 2 diabetes mellitus with hyperglycemia, with long-term current use of insulin ([facility]) LACTIC ACID Routine 12/08/2024 1:12 AM EST [...] Recently Relevant to Health Maintenance Results * CT Abdomen w/ Contrast (01/08/2025 3:53 PM EDT) Anatomical Region Laterality Modality Body, Abdomen Computed Tomogra phy 01/08/2025 3:53 PM EDT Narrative 01/08/2025 3:54 PM EDT ? [facility] ?[address] ?[place] [address] ? CT Scan Report ? Signed ? Patient: Aubrie Brewer ?MR#: M ?? [id number] ? : 1980 ?Acct:[id number] ? Age/Sex: 44 / F ?ADM Date: 01/07/25 ? Loc: HO.CT ? Attending Dr: Yasmin Ho MD ? Ordering Physician: Yasmin Ho MD ?? Date of Service: 01/07/25 ?? Procedure(s): CT abdomen w IV con ?? Accession Number(s): [id number] ? cc: Sammie Maharaj MD; Yasmin Ho MD ? Report Number: ?? [id number]: Total DLP = ??350.00 mGy-cm ? CLINICAL HISTORY: CT LIVER 3 PH[address] ? CT abdomen with contrast ? Comparison: MR/NJ/SR - MR ABDOMEN WO/W CON - 05/23/24 08:13 EDT ?? MR/[place]/SR - MR ABDOMEN WO/W CON - 02/10/24 08:38 EDT ? Findings: ?? No consolidation at the lung bases. ? Cholelithiasis. No gallbladder wall thickening or pericholecystic fluid. ?? No dilation of the common bile duct. Unchanged intrahepatic biliary ductal ?? dilatation in hepatic segment VII. Cirrhotic liver status post TIPS. The ?? TIPS is patent. No abnormal enhancement in the liver. The portal vein is ?? enlarged secondary to portal hypertension. There are peripheral ?? calcifications of the portal and splenic veins. There are varices, ?? including esophageal varices. Closure devices in the upper abdomen favored ?? to be related to varices. Mild periportal edema, also present on the prior ?? studies Splenomegaly, measuring 19.0 cm in craniocaudal dimension, ?? previously measuring 17.9 cm. The other solid organs are unremarkable. ? No bowel wall thickening or dilation. ? No aneurysm. No calcified atherosclerotic disease. ?? No lymphadenopathy. ?? No ascites. ? No acute osseous abnormality. ? Impression: ?? Cirrhosis status post TIPS. Unchanged intrahepatic biliary ductal ?? dilatation in hepatic segment VII. No liver lesions. Mild increase in ?? splenomegaly. ? This document has been electronically signed by: Isabela Graves MD ?? on 01/08/2025 15:53:02 ? Dictated By: ?Isabela Epstein MD ? Signed By: ?<Electronically signed by Isabela Epstein MD in [place]> ? 01/08/25 1553 ? DD/ 1553 ? TD/TT: 01/08/25 1553 ? Analyzer Sales: ? Procedure Note Paulina Granda - 01/08/[address] [place] [address] [address] Scan Report Signed Patient: Aubrie BrewerMR#: M [id number] : 1980Acct:[id number] Age/Sex: 44 / FADM Date: 01/07/25 Loc: HO.CT Attending Dr: Yasmin Ho MD Ordering Physician: Yasmin Ho MD Date of Service: 01/07/25 Procedure(s): CT abdomen w IV con Accession Number(s): [id number] cc: Sammie Maharaj MD; Yasmin Ho MD Report Number: [id number]: Total DLP = 350.00 mGy-cm CLINICAL HISTORY: CT LIVER [address] abdomen with contrast Comparison: MR/NJ/SR - MR ABDOMEN WO/W CON - 05/23/24 08:13 EDT MR/NJ/SR - MR ABDOMEN WO/W CON - 02/10/24 08:38 EDT Findings: No consolidation at the lung bases. Cholelithiasis. No gallbladder wall thickening or pericholecystic fluid. No dilation of the common bile duct. Unchanged intrahepatic biliary ductal dilatation in hepatic segment VII. Cirrhotic liver status post TIPS. The TIPS is patent. No abnormal enhancement in the liver. The portal vein is enlarged secondary to portal hypertension. There are peripheral calcifications of the portal and splenic veins. There are varices, including esophageal varices. Closure devices in the upper abdomen favored to be related to varices. Mild periportal edema, also present on the prior studies Splenomegaly, measuring 19.0 cm in craniocaudal dimension, previously measuring 17.9 cm. The other solid organs are unremarkable. No bowel wall thickening or dilation. No aneurysm. No calcified atherosclerotic disease. No lymphadenopathy. No ascites. No acute osseous abnormality. Impression: Cirrhosis status post TIPS. Unchanged intrahepatic biliary ductal dilatation in hepatic segment VII. No liver lesions. Mild increase in splenomegaly. This document has been electronically signed by: Isabela Graves MD on 01/08/2025 15:53:02 Dictated By: Isabela Epstein MD Signed By: <Electronically signed by Isabela Epstein MD in OV> 01/08/25 1553 DD/ 1553 TD/TT: 01/08/25 1553 Analyzer Sales: [facility] External Provider IMG CT PROCEDURES Final Result * POCT glucose manually resulted (12/19/2024 9:09 AM EDT) [facility] Glucose Blood, POC 131 60 - 200 mg/dL QC Media Lot # [id number] Lot# Expiration Date [id number] Blood Capillary blood specimen / Unknown 12/19/2024 9:09 AM EDT Sammie Maharaj MD POINT OF CARE TEST ENTER/E DIT ORDERABLES Final Result * Lactic Acid (12/08/2024 1:12 AM EST) [facility] Lactic Acid 1.6 0.5 - 2.0 mmol/L [facility] 12/08/2024 1:12 AM EST 12/08/2024 1:16 AM EST us Generic External Data Provider LAB BLOOD ORDERAB LES Final Result [facility] [address] [place] [address] [phone] * (ABNORMAL) CBC auto differential (12/07/2024 7:25 PM EST) Only the most recent of2 resultswithin the time period is included. White Blood Count 7.6 4.8 - 10.8 X10*3/uL [facility] Red Blood Count 3.43(L) 4.20 - 5.50 X10*6/uL [facility] Hemoglobin 11.1(L) 12.0 - 16.0 g/dl [facility] Hematocrit 31.0(L) 37.0 - 47.0 % [facility] Mean Corpuscular Volume 90.4 80.0 - 98.0 fL [facility] Mean Corpuscular Hemoglobin 32.4 27.0 - 33.0 pg [facility] Mean Corpuscular HGB Conc 35.8(H) 31.0 - 35.0 g/dl [facility] Red Cell Distribution Width 13.5 11.0 - 16.0 % [facility] Platelet Count 140(L) 160 - 400 X10*3/uL [facility] Mean Platelet Volume 12.4(H) 9.4 - 12.3 fL [facility] Neutrophils Percent Auto 86.3(H) 45 - 73 % [facility] Imm Gran Pct Auto 2.8(H) 0.0 - 0.4 % [facility] Lymphocytes Percent Auto 5.6(L) 20 - 40 % [facility] Monocytes Percent Auto 4.9 2 - 11 % [facility] Eosinophils Percent Auto 0.1 0 - 4 % [facility] Basophils Percent Auto 0.3 0 - 2 % [facility] NRBC Pct Auto 0.0 0.0 - 0.2 /100WBC [facility] Neutrophils Absolute Auto 6.6 2.0 - 8.3 x10*3/uL [facility] Imm Gran Abs Auto 0.21(H) 0.00 - 0.03 X10*3/uL [facility] Lymphocytes Absolute Auto 0.4(L) 1.2 - 4.9 X10*3/uL [facility] Monocytes Absolute Auto 0.4 0.1 - 1.2 X10*3/uL [facility] Eosinophils Absolute Auto 0.0 0.0 - 0.4 X10*3/uL [facility] Basophils Absolute Auto 0.0 0.0 - 0.2 X10*3/uL [facility] NRBC Abs Auto 0.000 0.0 - 0.012 X10*3/uL [facility] 12/07/2024 7:25 PM EST 12/07/2024 7:31 PM EST Generic External Data Provider LAB BLOOD ORDERAB LES Final Result Performing Organization Address [facility] de Phone Number [facility] [address] [place] [phone] * (ABNORMAL) Prothrombin Time-INR (12/07/2024 7:25 PM EST) Prothrombin Time 19.7(H) 10.9 - 12.4 SEC [facility] INTERNATIONAL NORM RATIO 1.7(H) 0.9 - 1.1 [facility] Comment:INTERNATIONAL NORMAL IZED RATIO (INR) [...] ORDERAB LES Final Result Performing Organization Address [facility] Co de Phone Number [facility] [address] [place] [phone] * (ABNORMAL) C-reactive Protein (12/07/2024 7:25 PM EST) Only the most recent of2 resultswithin the time period is included. C Reactive Protein 17.40(H) < or = 0.50 mg/dL [facility] 12/07/2024 7:25 PM EST 12/07/2024 7:31 PM EST Generic External Data Provider LAB BLOOD ORDERAB LES Final Result Performing Organization Address [facility]/ZIP Co de Phone Number [facility] [address] [place] [phone] * Magnesium (12/07/2024 7:25 PM EST) Magnesium 1.9 1.6 - 2.6 mg/dL [facility] 12/07/2024 7:25 PM EST 12/07/2024 7:31 PM EST Generic External Data Provider LAB BLOOD ORDERAB LES Final Result Performing Organization Address [facility] Co de Phone Number [facility] [address] [place] [phone] * (ABNORMAL) Ammonia, Plasma (12/07/2024 7:25 PM EST) Only the most recent of2 resultswithin the time period is included. Ammonia (P) 66(H) 13 - 55 umol/L [facility] 12/07/2024 7:25 PM EST 12/07/2024 7:31 PM EST Generic External Data Provider LAB BLOOD ORDERAB LES Final Result Performing Organization Address [facility] Co de Phone Number [facility] [address] [place] [phone] * (ABNORMAL) Hepatic Function Panel (12/07/2024 7:25 PM EST) Only the most recent of2 resultswithin the time period is included. Bilirubin, Total 8.9(H) 0.0 - 1.0 mg/dL [facility] Comment:Mild Icterus. Bilirubin, Direct 7.2(H) 0.0 - 0.5 mg/dL [facility] Comment:Mild Icterus. Aspartate Amino Transferase 108(H) 5 - 31 U/L [facility] Alanine Aminotransferase 103(H) 0 - 31 U/L [facility] Total Protein 6.0(L) 6.5 - 8.0 g/dL [facility] Albumin Level 2.6(L) 3.5 - 5.0 g/dL [facility] Alkaline Phosphatase 831(H) 39 - 117 U/L [facility] 12/07/2024 7:25 PM EST 12/07/2024 7:31 PM EST us Generic External Data Provider LAB BLOOD ORDERAB LES Final Result [facility] [address] [place] [phone] * (ABNORMAL) Basic Metabolic Panel (12/07/2024 7:25 PM EST) Sodium 134(L) 135 - 145 mmol/L [facility] Potassium 3.5 3.3 - 5.1 mmol/L [facility] Chloride 104 96 - 108 mmol/L [facility] Carbon Dioxide 21(L) 22 - 29 mmol/L [facility] Anion Gap 13 12 - 20 [facility] Urea Nitrogen (BUN) 15 9 - 16 mg/dL [facility] Creatinine, Serum 0.63 0.5 - 1.4 mg/dL [facility] Creatinine Clr Calc Pharmacy 79.5 [facility] Comment:Provided height and weight: 144.78 cm,51.5 kg.eGFR (calculated from the MDRD study equation) and eCrCl(calculated from the Cockcroft-Gault equation) are based ondifferent parameters and may not yield comparable results.If eCrCl result is absurd, please check patient'sheight/weight. Estimated Glomerular Filt Rate >60 [facility] Comment:Chronic Kidney Disea se: Estimated GFR < 60 mL/min/1.58b3Tsfymd Kidney Disease: Estimated GFR < 15 mL/min/1.73m2 Glucose 311(H) 60 - 115 mg/dL [facility] Calcium 8.2(L) 8.4 - 10.2 mg/dL [facility] 12/07/2024 7:25 PM EST 12/07/2024 7:31 PM EST Generic External Data Provider LAB BLOOD ORDERAB LES Final Result Performing Organization Address [facility] Co de Phone Number [facility] [address] [place] [phone] * (ABNORMAL) Sed Rate by Modified Alexiren (12/07/2024 7:24 PM EST) Only the most recent of2 resultswithin the time period is included. Erythrocyte Sedimentation Rate 73(H) 0 - 20 MM/HR [facility] Comment:Patients with polycy themia and many hemoglobin abnormalitiesmay have depressed sed rates whereas patients with anemiamay have elevated sed rates. 12/07/2024 7:24 PM EST 12/07/2024 7:31 PM EST us Generic External Data Provider LAB BLOOD ORDERAB LES Final Result Performing Organization Address [facility] Co de Phone Number [facility] [address] [place] [phone] * Albumin, Random Urine W/Creatinine (11/05/2024 10:20 AM EST) Creatinine, Urine 59.34 mg/dL [facility] Microalbumin Urine <5.0 mg/L [facility] Microalbum Creatinine Ratio Ur TNP <30 ug/mg cr [facility] Comment:Unable to calculate albumin/creatinine ratio due to lowmicroalbumin or creatinine result. Urine 11/05/2024 10:2 0 AM EST 11/05/2024 11:21 AM EST Sammie Maharaj MD LAB URINE ORDERABLES Final Result Performing Organization Address City/[facility]/ZIP Co de Phone Number [facility] [address] [place] [phone] * (ABNORMAL) Lipid Panel, Standard (10/24/2024 9:59 AM EST) Triglycerides 91 <150 mg/dL [facility] Comment:Mild Icterus.Interpr et result with caution.Desirable Triglyceride: less than 150 mg/dLBorderline High Triglyceride 150-199 mg/dLHigh Triglyceride: 200-499 mg/dLVery High Triglyceride: greater than or equal to 5OO mg/dL Cholesterol 132 <200 mg/dL [facility] Comment:Mild Icterus.Interpr et result with caution.Desirable Cholesterol: less than 200 mg/dLBorderline High Cholesterol: 200-239 mg/dLHigh Cholesterol: greater than 239 mg/dL LDL Cholesterol Calculated 92 <100 mg/dL [facility] Comment:Desirable LDL: less than 100 mg/dLNear Optimal/Above Optimal LDL: 110- 129 mg/dLBorderline High LDL: 130-159 mg/dLHigh LDL: 160-189 mg/dLVery High LDL: greater than or equal to 190 mg/dL HDL Cholesterol 22(L) >40 mg/dL [facility] Comment:Desirable HDL: great er than 40 mg/dL Note: This HDL assay may give artificially low results in patients with liver disease. Blood Venous blood specimen / Unknown 10/24/2024 9:59 AM EST 10/24/2024 11:05 AM EST Sammie Maharaj MD LAB BLOOD ORDERABLES Final Result Performing Organization Address City/[facility]/ZIP Co de Phone Number [facility] [address] [place] [phone] * POCT glycosylated hemoglobin (Hgb A1c) [...] EST Narrative 09/19/2023 10:41 AM EST ? [facility] ? [address] ?JAZ Mcneal ? Mammography Report ? Signed ? Patient: Aubrie Brewer ?MR#: M ?? [id number] ? : 1980 ?Acct:[id number] ? Age/Sex: 43 / F ?ADM Date: 11/28/23 ? Loc: HO.MAMMO ? Attending Dr: Sammie Maharaj MD ? Ordering Physician: Sammie Maharaj MD ?Results: 1N ?? egative ? Date of Service: /28/23 ?Follow Up: 1 Year From Orig ?? inal Mammogram ? Procedure(s): MM tomosynthesis screening BI ?? Accession Number(s): [id number] ? cc: Sammie Maharaj MD ? EXAMINATION: [...] 1037 ? DD/ 1014 ? TD/TT: ? Analyzer Sales: ? Procedure Note Paulina Granda - 09/19/2023 [facility] [address] [place] [address] Dr. [place], [place] [id number] Mammography Report Signed Patient: Aubrie Brewer#: M [id number] : 1980Acct:[id number] Age/Sex: 43 / FADM Date: 09/06/23 Loc: HO.MAMMO Attending Dr: Sammie Maharaj MD Ordering Physician: Sammie Maharaj MDResults: 1N egative Date of Service: 09/06/23Follow Up: 1 Year From Orig ina Mammogram Procedure(s): MM tomosynthesis screening BI Accession Number(s): [id number] cc: Sammie Maharaj MD EXAMINATION: MM SCREENING [...] in OV> 09/19/23 1037 DD/ 1014 TD/TT: Analyzer Sales: Sammie Maharaj MD IMG BI PROCEDURES Final Re sult * Hepatitis C Ab (07/28/2023 10:55 AM EDT) Hepatitis C Antibody Nonreactive Nonreactive [facility] Comment:Antibodies to HCV no t detected; does not exclude early acuteHCV infection. Blood 07/28/2023 10:5 5 AM EDT 07/28/2023 1:11 PM EDT Sammie Maharaj MD LAB BLOOD ORDERABLES Final Result Performing Organization Address City/[facility]/ZIP Co de Phone Number [facility] [address] [place] [phone] * HIV Ab/Ag (JAZ REYES) (07/28/2023 10:55 AM EDT) HIV AB/AG Nonreactive Nonreactive [facility] Comment:HIV-1 p24 Ag and/or HIV-1/HIV-2 Ab not detected.A test result that is nonreactive does not exclude thepossibility of exposure to or infection with HIV-1 and/orHIV-2. Nonreactive results in this assay for individualswith prior exposure to HIV-1 and/or HIV-2 may be due toantigen and antibody levels that are below the limit ofdetection of this assay.The [employer] HIV Ag/Ab Combo assay result andsupplemental assay results should be interpreted inconjunction with the patient's clinical presentation,history and other laboratory results. If the results areinconsistent with clinical evidence, additional testing issuggested to confirm the result. 07/28/2023 10:5 5 AM EDT 07/28/2023 1:11 PM EDT Sammie Maharaj MD LAB BLOOD ORDERABLES Final Result Performing Organization Address [facility]/ZIP Co de Phone Number [facility] [address] [place] [phone] * Pap Smear (03/25/2021 12:00 AM EDT) Swab Brendon Provider LAB CYTOLOGY ORDERABLES F inal Result Performing Organization Address City/[facility]/ZIP Co de Phone Number IMAGING from Last 3 Months or Most Recently Relevant to Health Maintenance Insurance [employer] Advance Directives Documents on File Type Date Recorded Patient Stratigraphy Teacher Expl anation Advance Directives and Living Will 07/09/2024 Health Care Proxy 07/09/24 Care Teams Purchasing Coordinator Relationship Specialty Start Date End Date Arnold, MD Sammie [address] [place] [phone] PCP - General Family Medicine 10/10/18 Loyda Glaser RN [address] [place] [address] Senior Risk Manager Family Medicine 10/31/23 Yasmin Ho MD [address] [place] [address] Gastroenterology 08/29/24 Manuel Carpenter PA [address] [address] Neurology 08/29/24 Paola Tolentino NP [address] [address] [facility] 10/24/24 [facility] Psychology Psychology 12/19/24
--- OUTSIDE RECORDS SUMMARY | 2025-01-25 07:27 | XMS_ITS | Encounter Summary ---
Author Organization [employer] [facility] Address [address] [facility] 7[address] [place] [address] Care Team Providers Care Watch Train Inspector Name Role Phone Sammie Maharaj MD Primary Care Provider [phone]- [phone] Loyda Glaser RN Unavailable [phone] Yasmin Ho MD Unavailable Encounter Details Date Type Department Care Team (Late st Contact Info) Description 11/11/2022 Abstract [facility] MEDICINE [address] [place] [phone] Sammie Maharaj MD [address] [place], [place] [phone] Social History Tobacco Use Types Packs/Day Years [...] 9:00 AM EDT Office Visit [facility] OPTOMETRY [address] [place], [place] [phone] Darshana Bashir, OD [address] [place] [address] 03/25/2025 9:45 AM EDT Office Visit [facility] MEDICINE [address] [place] [address] Sammie Maharaj MD [address] [place] [address] documented as of this encounter Procedures Procedure Name Priority Date/Time Associated Diagnosis Comments PAP SMEAR Routine 03/25/2021 12:00 AM EDT documented in this encounter Results * Pap Smear (03/25/2021 12:00 AM EDT) Swab us Historical Provider LAB CYTOLOGY ORDERABLES F inal Result IMAGING documented in this encounter Visit Diagnoses Not on filedocumented in this encounter Care Teams Watch Train Inspector Relationship Specialty Start Date End Date Sammie Maharaj MD [address] [place] [phone] PCP - General Family Medicine 10/10/18 Loyda Glaser RN [address] [place] [address] Research Program Coordinator Family Medicine 10/31/23 Yasmin Ho MD [address] [place] [address] Gastroenterology 08/29/24 Manuel Carpenter PA [facility] [address] [facility] [address] Neurology 08/29/24 Paola Tolentino NP [address] [address] Endocrinology 10/24/24 [facility] Psychology Psychology 12/19/24 documented as of this encounter
--- OUTSIDE RECORDS SUMMARY | 2025-01-25 07:27 | XMS_ITS | Encounter Summary ---
Demographics Address [address] [facility] [address] [place] [address] Home Phone Mobile Phone Preferred Language Kazakh; Castilian Marital Status Single Mandaen Affiliation Unknown Race Unknown Ethnic Group Unknown Author Organization [facility] Address [address] [place] [address] Support Name Relationship Address Phone Orion Rubio Daughter [address] [facility] [address] [place] [address] Care Team Providers Care Leather Fitter Name Role Phone Sammie Maharaj Primary Care Provider [phone] Encounter Details Date Type Department Care Team (Late st Contact Info) Description 01/09/2025 Results Follow-Up [facility] Liver Transplant Services [address] [place] [address] Katy Boateng RN Social History Tobacco Use [...] Description 03/22/2025 3:30 PM EDT Office Visit [facility] Building Diabetes Clinic [address] [place] [address] Associate Professor Of Law: Natasha Rubalcava MD [address] [place] [address] 04/09/2025 9:00 AM EDT Follow-Up [facility] Liver Transplant Services [address] [place] [address] Yasmin Ho MD [address] [place] [address] 07/17/2025 8:00 AM EDT Office Visit [facility] Diabetes Clinic [address] [place] [address] Associate Professor Of Law: Paola Vance NP [address] [place] [address] [place] [address] 08/06/2025 8:00 AM EDT Office Visit [facility] Neurology Clinic [address] [place] [address] Manuel Carpenter PA [address] [place] [address] documented as of this encounter Visit Diagnoses Not on filedocumented in this encounter Care Teams Leather Fitter Relationship Specialty Start Date End Date Sammie Maharaj [address] [place] [address] PCP - General Family Medicine 05/15/18 documented as of this encounter
--- OUTSIDE RECORDS SUMMARY | 2025-01-25 07:27 | XMS_ITS | Encounter Summary ---
Author Organization [employer] [facility] Address [address] [facility] 7t [place] [address] Care Team Providers Care Commercial Real Estate Associate Name Role Phone Sammie Maharaj MD Primary Care Provider [phone]- [phone] Loyda Glaser RN Unavailable [phone] Yasmin Ho MD Unavailable Reason for Visit * Reason Onset Date Comments Referral 12/01/2022 Encounter Details Date Type Department Care Team (Late st Contact Info) Description 12/01/2022 Telephone [facility] MEDICINE [address] [place] [address] Sammie Maharaj MD [address] [place], [place] [phone] Referral Social History Tobacco Use Types Packs/Day [...] [facility] Please contact pt at [phone] or Becca [phone] documented in this encounter Plan of Treatment Upcoming Encounters Date Type Department Care Team (Late st Contact Info) Description 02/25/2025 9:00 AM EDT Office Visit [facility] OPTOMETRY [address] [place] [address] MckayDarshana coppola, OD [address] [place] [address] 03/25/2025 9:45 AM EDT Office Visit [facility] MEDICINE [address] [place] [address] Sammie Maharaj MD [address] [place] [address] documented as of this encounter Visit Diagnoses Not on filedocumented in this encounter Care Teams Commercial Real Estate Associate Relationship Specialty Start Date End Date Sammie Maharaj MD [address] [place] [address] PCP - General Family Medicine 10/10/18 Loyda Glaser, RN [address] [place] [address] Sewing Machine Tester Family Medicine 10/31/23 Yasmin Ho MD [address] [place] [address] Gastroenterology 08/29/24 Manuel Carpenter PA [address] [address] Neurology 08/29/24 Paola Tolentino NP [address] [address] Endocrinology 10/24/24 [facility] Psychology Psychology 12/19/24 documented as of this encounter
--- OUTSIDE RECORDS SUMMARY | 2025-01-25 07:27 | XMS_ITS | Encounter Summary ---
Demographics Address [address] [facility] [address] [place] [address] Home Phone Mobile Phone Preferred Language Czech; Castilian Marital Status Single Yarsanism Affiliation Unknown Race Unknown Ethnic Group Unknown Author Organization [facility] Address [address] [place] [address] Support Name Relationship Address Phone Orion Rubio Daughter [address] [facility] [address] [place] [address] Care Team Providers Care Real Estate Internship Name Role Phone Sammie Maharaj Primary Care Provider [phone] Encounter Details Date Type Department Care Team (Late st Contact Info) Description 11/04/2023 Orders Only [facility] Interventional Radiology [address] [place] [address] Duncan Ragland MD [address] [place] [address] Social History Tobacco Use Types Packs/Day Years [...] Description 03/22/2025 3:30 PM EDT Office Visit [facility] Building Diabetes Clinic [address] [place] [address] Police Reserves Commander: Natasha Rubalcava MD [address] [place] [address] 04/09/2025 9:00 AM EDT Follow-Up [facility] Liver Transplant Services [address] [place] [address] Yasmin Ho MD [address] [place] [address] 07/17/2025 8:00 AM EDT Office Visit [facility] Diabetes Clinic [address] [place] [address] Police Reserves Commander: Paola Vance NUCLEAR UNIT OPERATOR [address] [place] [address] 08/06/2025 8:00 AM EDT Office Visit [facility] Neurology Clinic [address] [place] [address] Manuel Carpenter PA [address] [place] [address] documented as of this encounter Visit Diagnoses Not on filedocumented in this encounter Care Teams Real Estate Internship Relationship Specialty Start Date End Date Sammie Maharaj [address] [place] [address] PCP - General Family Medicine 05/15/18 documented as of this encounter
--- OUTSIDE RECORDS SUMMARY | 2025-01-25 07:27 | XMS_ITS | Encounter Summary ---
Author Organization [email or web address] [facility] Address [address] 7t [place] [address] Care Team Providers Care Comb Setter Name Role Phone Sammie Maharaj MD Primary Care Provider +1- [phone] Loyda Glaser RN Unavailable [phone] Yasmin Ho MD Unavailable Reason for Visit * Reason Onset Date Comments Appointment Request 10/20/2023 Encounter Details Date Type Department Care Team ([facility] st Contact Info) Description 10/20/2023 Telephone [facility] MEDICINE [address] [place] [address] Sammie Maharaj MD 230 [place], [place] [phone] Appointment Request Social History Tobacco Use Types [...] and reschedule appt for 11/03/2023 @ 9:30 sheet writer did cancel per patients request documented in this encounter Plan of Treatment Upcoming Encounters Date Type Department Care Team (Late st Contact Info) Description 02/25/2025 9:00 AM EDT Office Visit [facility] OPTOMETRY [address] [place] [address] Mckay, Darshana, OD 230 [place] [address] 03/25/2025 9:45 AM EDT Office Visit [facility] MEDICINE [address] [place] [address] Sammie Maharaj MD 230 [place] [address] documented as of this encounter Visit Diagnoses Not on filedocumented in this encounter Additional Health Concerns Assessment Noted Time PHQ-9 Depression Total Score: 0 07/28/20 23 9:42 AM EDT documented as of this encounter Care Teams Comb Setter Relationship Specialty Start Date End Date Sammie Maharaj MD 230 [place] [address] PCP - General Family Medicine 10/10/18 Loyda Glaser, RN [address] [place] [address] Autotransfusionist Family Medicine 10/31/23 Yasmin Ho MD [address] [place] [address] [id number] Gastroenterology 08/29/24 Manuel Carpenter PA [facility] 55 [facility] [address] Neurology 08/29/24 Paola Tolentino NP [address] [address] Endocrinology 10/24/24 [facility] Psychology Psychology 12/19/24 documented as of this encounter
--- OUTSIDE RECORDS SUMMARY | 2025-01-25 07:27 | XMS_ITS | Encounter Summary ---
Demographics Address [address] [facility] [address] [place] [address] Home Phone Mobile Phone Preferred Language Beninese; Castilian Marital Status Single Scientology Affiliation Unknown Race Unknown Ethnic Group Unknown Author Organization [facility] Address [address] [place] [address] Support Name Relationship Address Phone Orion Rubio Daughter [address] [facility] [address] [place] [address] Care Team Providers Care Endoscopic Technician Name Role Phone Sammie Maharaj Primary Care Provider +1- [phone] Encounter Details Date Type Department Care Team (Late st Contact Info) Description 01/24/2025 Telephone [facility] Transplant Department [address] [place] [address] Katy Boateng RN Social History Tobacco Use [...] Telephone Encounter - Katy Boateng RN - 01/24/2025 4:01 PM EDT Called patient using jacquard loom weaver, Amish #[id number], she will go to [place] tomorrow to get labs. documented in this encounter Plan of Treatment Upcoming Encounters Date Type Department Care Team (Late st Contact Info) Description 03/22/2025 3:30 PM EDT Office Visit [facility] Building Diabetes Clinic 55 [place] [address] Corporate Development Manager: Natasha Rubalcava MD [address] [place] [address] 04/09/2025 9:00 AM EDT Follow-Up [facility] Liver Transplant Services [address] [place] [address] Yasmin Ho MD [address] [place] [address] 07/17/2025 8:00 AM EDT Office Visit [facility] Diabetes Clinic [address] [place] [address] Corporate Development Manager: Paola Vance NP [address] [place] [address] [place] [address] 08/06/2025 8:00 AM EDT Office Visit [facility] Neurology Clinic [address] [place] [address] Manuel Carpenter PA [address] [place] [address] Scheduled Orders Name Type Priority Associated Diagnoses Orde r Schedule Protime-INR Lab Routine Cryptogenic cirrhosis (HCC) Expected: 01/24/2025, Expires: 01/24/2026 Comprehensive Metabolic Panel Lab Routine Cryptogenic cirrhosis (HCC) Expected: 01/24/2025, Expires: 01/24/2026 CBC Auto Differential Lab Routine Cryptogenic cirrhosis (HCC) Expected: 01/24/2025, Expires: 01/24/2026 documented as of this encounter Visit Diagnoses Diagnosis 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
--- OUTSIDE RECORDS SUMMARY | 2025-01-25 07:27 | XMS_ITS | Encounter Summary ---
Author Organization [employer] Address [address] 7t [place] [address] Care Team Providers Care Contracting Support Specialist Name Role Phone Sammie Maharaj MD Primary Care Provider +1- [phone] Loyda Glaser RN Unavailable [phone] Yasmin Ho MD Unavailable [phone] Reason for Visit * Reason Comments Med Refill Encounter Details Date Type Department Care Team (Late st Contact Info) Description 11/13/2024 Refill [facility] 230 [place], [place] [phone] Sammie Maharaj MD 230 [place], [place] [phone] Tinea unguium Social History Tobacco Use Types [...] Description 02/25/2025 9:00 AM EDT Office Visit [facility] OPTOMETRY 267 [place] [address] Mckay, Darshana, OD 230 [place] [address] 03/25/2025 9:45 AM EDT Office Visit [facility] MEDICINE 230 [place] [address] Sammie Maharaj MD [address] [place] [address] documented as of this encounter Visit Diagnoses Diagnosis Tinea unguium Dermatophytosis of nail documented in this encounter Additional Health Concerns Assessment Noted Time PHQ-9 Depression Total Score: 0 10/24/19 25 9:33 AM EST documented as of this encounter Care Teams Contracting Support Specialist Relationship Specialty Start Date End Date Sammie Maharaj MD [address] [place] [address] PCP - General Family Medicine 10/10/18 Loyda Glaser RN 230 [place] [address] Corporate Communications Associate Family Medicine 10/31/23 Yasmin Ho MD [address] [place] [address] Gastroenterology 08/29/24 Manuel Carpenter PA [address] [address] Neurology 08/29/24 Paola Tolentino, HONEY EXTRACTOR [address] [address] Endocrinology 10/24/24 [facility] Psychology Psychology 12/19/24 documented as of this encounter
--- OUTSIDE RECORDS SUMMARY | 2025-01-25 07:27 | XMS_ITS | Encounter Summary ---
Author Organization [employer] [facility] Address [address] [place] [address] 7t [place] [address] Care Team Providers Care Sewer And Drain Technician Name Role Phone [place], Sammie JOHNSON Primary Care Provider +1- [phone] Loyda Glaser RN Unavailable [phone] Yasmin Ho MD Unavailable Encounter Details Date Type Department Care Team (Late st Contact Info) Description 12/01/2022 Orders Only [facility] MEDICINE [address] [place] [address] Ericka Osei MD 230 [place], [place] [phone] Visual problems (Primary Dx) Social History Tobacco [...] Description 02/25/2025 9:00 AM EDT Office Visit [facility] OPTOMETRY [address] [place], [place] [phone] Mckay, Darshana, OD 230 [place] [address] 03/25/2025 9:45 AM EDT Office Visit [facility] MEDICINE 230 [place] [address] Sammie Maharaj MD 230 [place] [address] documented as of this encounter Visit Diagnoses Diagnosis Visual problems- Primary documented in this encounter Care Teams Sewer And Drain Technician Relationship Specialty Start Date End Date Sammie Maharaj MD 230 [place] [address] PCP - General Family Medicine 10/10/18 Loyda Glaser, RN [address] [place] [address] Dowel Setting Machine Operator Family Medicine 10/31/23 Yasmin Ho MD [address] [place] [address] Gastroenterology 08/29/24 Manuel Carpenter PA [facility] 55 [facility] [address] Neurology 08/29/24 Paola Tolentino NP [address] [address] Endocrinology 10/24/24 [facility] Psychology Psychology 12/19/24 documented as of this encounter
--- OUTSIDE RECORDS SUMMARY | 2025-01-25 07:27 | XMS_ITS | Encounter Summary ---
Demographics Address [address] [facility] [address] [place] [address] Home Phone Mobile Phone Preferred Language Taiwanese; Castilian Marital Status Single Religion Affiliation Unknown Race Unknown Ethnic Group Unknown Author Organization [facility] Address [address] [place] [address] Support Name Relationship Address Phone Orion Rubio Daughter [address] [facility] [address] [place] [address] Care Team Providers Care Naturalization Examiner Name Role Phone Sammie Maharaj Primary Care Provider +1- [phone] Encounter Details Date Type Department Care Team (Late st Contact Info) Description 01/10/2025 Results Follow-Up [facility] Liver Transplant Services [address] [place] [address] Katy Boateng RN Social History Tobacco Use [...] Description 03/22/2025 3:30 PM EDT Office Visit [facility] Building Diabetes Clinic [address] [place] [address] Vehicle Painter: Natasha Rubalcava MD [address] [place] [address] 04/09/2025 9:00 AM EDT Follow-Up [facility] Liver Transplant Services [address] [place] [address] Yasmin Ho MD 55 [place] [address] 07/17/2025 8:00 AM EDT Office Visit [facility] Diabetes Clinic [address] [place] [address] Vehicle Painter: Paola Vance NP [address] [place] [address] [place] [address] 08/06/2025 8:00 AM EDT Office Visit [facility] Neurology Clinic [address] [place] [address] Manuel Carpenter PA [address] [place] [address] documented as of this encounter Visit Diagnoses Not on filedocumented in this encounter Care Teams Naturalization Examiner Relationship Specialty Start Date End Date Sammie Maharaj [address] [place] [address] PCP - General Family Medicine 05/15/18 documented as of this encounter
--- OUTSIDE RECORDS SUMMARY | 2025-01-25 07:27 | XMS_ITS | Encounter Summary ---
Author Organization [employer] Address [address] 7t [place] [address] Care Team Providers Care Tip Stitcher Name Role Phone Sammie Maharaj MD Primary Care Provider [phone]- [phone] Loyda Glaser RN Unavailable [phone] Yasmin Ho MD Unavailable Reason for Visit * Reason Comments Med Refill Encounter Details Date Type Department Care Team (Late st Contact Info) Description 10/25/2023 Refill [facility] 230 [place], [place] [phone] Sammie Maharaj MD 230 [place], [place] [phone] Microcytic anemia Social History Tobacco Use Types [...] 9:00 AM EDT Office Visit [facility] OPTOMETRY 267 [place] [address] Mckay, Darshana, OD 230 [place] [address] 03/25/2025 9:45 AM EDT Office Visit [facility] MEDICINE 230 [place] [address] Sammie Maharaj MD 230 [place] [address] documented as of this encounter Visit Diagnoses Diagnosis Microcytic anemia Unspecified iron deficiency anemia documented in this encounter Additional Health Concerns Assessment Noted Time PHQ-9 Depression Total Score: 0 07/28/20 23 9:42 AM EDT documented as of this encounter Care Teams Tip Stitcher Relationship Specialty Start Date End Date Sammie Maharaj MD [address] [place] [address] PCP - General Family Medicine 10/10/18 Loyda Glaser, ERVIN 230 [place] [address] Ladle Patcher Family Medicine 10/31/23 Yasmin Ho MD 55 [place] [address] Gastroenterology 08/29/24 Manuel Carpenter PA [facility] 55 [facility] [address] Neurology 08/29/24 Paola Tolentino, HEBERT [address] [address] Endocrinology 10/24/24 [facility] Psychology Psychology 12/19/24 documented as of this encounter
--- OUTSIDE RECORDS SUMMARY | 2025-01-25 07:27 | XMS_ITS | Encounter Summary ---
Author Organization [employer] Address [address] [facility] 7t [place] [address] Care Team Providers Care Automobile Technician Name Role Phone [place], Sammie JOHNSON Primary Care Provider [phone]- [phone] Loyda Glaser RN Unavailable [phone] Yasmin Ho MD Unavailable [phone] Reason for Visit * Reason Onset Date Comments No Show 04/21/2023 Encounter Details Date Type Department Care Team (Late st Contact Info) Description 04/21/2023 Telephone [facility] MEDICINE 230 [place] [address] Hansa Chung RN 230 [place] [address] No Show Social History Tobacco Use Types [...] and declined as she is traveling to [facility] tomorrow morning and whill not be back [...] 04/21/2023 12:30 PM EDT Call received from [facility] Labs, regarding critical lab result. Pt glucose [...] 02/25/2025 9:00 AM EDT Office Visit [facility] OPTOMETRY [address] [place] [address] Darshana Bashir, SAM 230 [place] [address] 03/25/2025 9:45 AM EDT Office Visit [facility] MEDICINE 230 [place] [address] Sammie Maharaj MD 230 [place] [address] documented as of this encounter Visit Diagnoses Not on filedocumented in this encounter Care Teams Automobile Technician Relationship Specialty Start Date End Date Sammie Maharaj MD 230 [place] [address] PCP - General Family Medicine 10/10/18 Loyda Glaser, RN 230 [place] [address] Mold Maker Family Medicine 10/31/23 Yasmin Ho MD [address] [place] [address] Gastroenterology 08/29/24 Manuel Carpenter PA [facility] 55 [facility] [address] Neurology 08/29/24 Paola Tolentino, HEBERT [address] [address] Endocrinology 10/24/24 [facility] Psychology Psychology 12/19/24 documented as of this encounter
--- OUTSIDE RECORDS SUMMARY | 2025-01-25 07:27 | XMS_ITS | Encounter Summary ---
Author Organization [employer] Address [address] [facility] 7t [place] [address] Care Team Providers Care Equity Sales Assistant Name Role Phone Sammie Maharaj MD Primary Care Provider Loyda Glaser RN Unavailable [phone] Yasmin Ho MD Unavailable Encounter Details Date Type Department Care Team (Late Contact Info) Description 05/16/2023 Orders Only [facility] MED & PEDS [address] [place] [address] Emily Marcial LPN Social History Tobacco Use [...] Office Visit [facility] OPTOMETRY 267 [place], [place] [phone] Darshana Bashir, OD 230 [place], [place] [phone] 03/25/2025 9:45 AM EDT Office Visit [facility] MEDICINE 230 [place], [place] [phone] Sammie Maharaj MD 230 [place] [address] documented as of this encounter Visit Diagnoses Not on filedocumented in this encounter Care Teams Equity Sales Assistant Relationship Specialty Start Date End Date Sammie Maharaj MD 230 [place] [address] PCP - General Family Medicine 10/10/18 Loyda Glaser, ERVIN [address] [place] [address] Information Assurance Analyst Family Medicine 10/31/23 Yasmin Ho MD [address] [place] [address] Gastroenterology 08/29/[address] [facility] [address] Neurology 08/29/24 Paola Tolentino, HEBERT [address] [address] Endocrinology 10/24/24 [facility] Psychology Psychology 12/19/24 documented as of this encounter
--- OUTSIDE RECORDS SUMMARY | 2025-01-25 07:27 | XMS_ITS | Encounter Summary ---
Author Organization [employer] [facility] Address [address] [facility] 7t [place] [address] Care Team Providers Care Cryptographic Clerk Name Role Phone Sammie Maharaj MD Primary Care Provider [phone]- [phone] Loyda Glaser RN Unavailable [phone] aYsmin Ho MD Unavailable [phone] Reason for Visit * Reason Onset Date Comments Nurse Triage 03/22/2023 Encounter Details Date Type Department Care Team (Late st Contact Info) Description 03/22/2023 Telephone [facility] MEDICINE 230 [place] [address] Sammie Maharaj MD 230 [place], [place] [phone] Nurse Triage Social History Tobacco Use Types [...] 03/22/2023 2:01 PM EDT Triage call with [employer] [place] Technician ID [id number] Pt didn't answer left message to call [facility] triage line at [phone]. Triage call with [employer] [place] Technician [place] [id number] Pt answered, Pt wasn't able to say [...] Description 02/25/2025 9:00 AM EDT Office Visit [facility] OPTOMETRY 267 [place] [address] Mckay, Darshana, OD 230 [place] [address] 03/25/2025 9:45 AM EDT Office Visit [facility] MEDICINE 230 [place] [address] Sammie Maharaj MD 230 [place] [address] documented as of this encounter Visit Diagnoses Not on filedocumented in this encounter Care Teams Cryptographic Clerk Relationship Specialty Start Date End Date Sammie Maharaj MD [address] [place] [address] PCP - General Family Medicine 10/10/18 Loyda Glaser RN [address] [place] [address] Hooking Machine Operator Family Medicine 10/31/23 Yasmin Ho MD [address] [place] [address] Gastroenterology 08/29/24 Manuel Carpenter PA [address] [address] Neurology 08/29/24 Paola Tolentino NP [address] [address] Endocrinology 10/24/24 [facility] Psychology Psychology 12/19/24 documented as of this encounter
--- OUTSIDE RECORDS SUMMARY | 2025-01-25 07:27 | XMS_ITS | Encounter Summary ---
Demographics Address [address] [facility] 2 [place] [address] Home Phone Mobile Phone Preferred Language South African; Castilian Marital Status Single Holiness Affiliation Unknown Race Unknown Ethnic Group Unknown Author Organization [facility] Address [address] [place] [address] Support Name Relationship Address Phone Orion Rubio Daughter [address] [facility] [address] [place] [address] Care Team Providers Care Manufacture Specialist Name Role Phone Sammie Maharaj Primary Care Provider [phone]- [phone] Encounter Details Date Type Department Care Team (Late st Contact Info) Description 10/27/2023 Orders Only [facility] Interventional Radiology 55 [place], [place] [phone] Enzo Conner MD [address] [place] [address] Social History Tobacco Use Types Packs/Day Years [...] Description 03/22/2025 3:30 PM EDT Office Visit [facility] Building Diabetes Clinic 55 [place], [place] [phone] Branch Operations Manager: Natasha Rubalcava MD [address] [place] [address] [phone] 04/09/2025 9:00 AM EDT Follow-Up [facility] Liver Transplant Services 55 [place] [address] Yasmin Ho MD 55 [place] [address] 07/17/2025 8:00 AM EDT Office Visit [facility] Diabetes Clinic [address] [place] [address] Branch Operations Manager: Paola Vance, SOLAR DESIGN ENGINEER [address] [place] [address] 08/06/2025 8:00 AM EDT Office Visit [facility] Neurology Clinic [address] [place] [address] Manuel Carpenter PA [address] [place] [address] documented as of this encounter Visit Diagnoses Not on filedocumented in this encounter Care Teams Manufacture Specialist Relationship Specialty Start Date End Date Sammie Maharaj: [id number] [address] [place] [address] PCP - General Family Medicine 05/15/18 documented as of this encounter
--- OUTSIDE RECORDS SUMMARY | 2025-01-25 07:27 | XMS_ITS | Encounter Summary ---
Author Organization [employer] Address [address] 7t [place] [address] Care Team Providers Care Complex Care Nurse Practitioner Name Role Phone Sammie Maharaj MD Primary Care Provider +1- [phone] Loyda Glaser RN Unavailable [phone] Yasmin Ho MD Unavailable [phone] Reason for Visit * Reason Comments Med Refill Encounter Details Date Type Department Care Team (Late st Contact Info) Description 10/24/2024 Refill [facility] 230 [place], [place] [phone] Sammie Maharaj MD 230 [place], [place] [phone] Microcytic anemia Social History Tobacco Use Types [...] Description 02/25/2025 9:00 AM EDT Office Visit [facility] OPTOMETRY 267 [place] [address] Mckay, Darshana, OD 230 [place] [address] 03/25/2025 9:45 AM EDT Office Visit [facility] MEDICINE 230 [place] [address] Sammie Maharaj MD 230 [place] [address] documented as of this encounter Visit Diagnoses Diagnosis Microcytic anemia Unspecified iron deficiency anemia documented in this encounter Additional Health Concerns Assessment Noted Time PHQ-9 Depression Total Score: 0 10/24/19 25 9:33 AM EST documented as of this encounter Care Teams Complex Care Nurse Practitioner Relationship Specialty Start Date End Date Sammie Maharaj MD [address] [place] [address] PCP - General Family Medicine 10/10/18 Loyda Glaser, RN [address] [place] [address] Frame Table Operator Helper Family Medicine 10/31/23 Yasmin Ho MD [address] [place] [address] Gastroenterology 08/29/24 Manuel Carpenter PA [address] [address] Neurology 08/29/24 Paola Tolentino NP [address] [address] Endocrinology 10/24/24 [facility] Psychology Psychology 12/19/24 documented as of this encounter
--- OUTSIDE RECORDS SUMMARY | 2025-01-25 07:27 | XMS_ITS | Encounter Summary ---
Author Organization [employer] Address [address] [facility] [address] 7t [place] [address] Care Team Providers Care Stock Pitcher Name Role Phone Sammie Maharaj MD Primary Care Provider [phone]- [phone] Loyda Glaser RN Unavailable [phone] Yasmin Ho MD Unavailable Reason for Visit * Reason Comments Med Refill Encounter Details Date Type Department Care Team (Late st Contact Info) Description 12/25/2024 Refill [facility] 230 [place], [place] [phone] Sammie Maharaj MD 230 [place], [place] [phone] Tinea unguium Social History Tobacco Use Types [...] 9:00 AM EDT Office Visit [facility] OPTOMETRY 267 [place] [address] Mckay, Darshana, OD 230 [place] [address] 03/25/2025 9:45 AM EDT Office Visit [facility] MEDICINE 230 [place] [address] Sammie Maharaj MD [address] [place] [address] documented as of this encounter Visit Diagnoses Diagnosis Tinea unguium Dermatophytosis of nail documented in this encounter Additional Health Concerns Assessment Noted Time PHQ-9 Depression Total Score: 0 10/24/19 25 9:33 AM EST documented as of this encounter Care Teams Stock Pitcher Relationship Specialty Start Date End Date Sammie Maharaj MD [address] [place] [address] PCP - General Family Medicine 10/10/18 Loyda Glaser RN 230 [place] [address] Black Pickler Family Medicine 10/31/23 Yasmin Ho MD [address] [place] [address] Gastroenterology 08/29/24 Manuel Carpenter PA [address] [address] Neurology 08/29/24 Paola Tolentino, [employer] [address] [address] Endocrinology 10/24/[address] [facility] Psychology Psychology 12/19/24 documented as of this encounter
--- OUTSIDE RECORDS SUMMARY | 2025-01-25 07:27 | XMS_ITS | Encounter Summary ---
Author Organization [employer] Address [address] [address] [facility] [address] [place] [address] Care Team Providers Care Cadmium Burner Name Role Phone Leroy, Sammie JOHNSON Primary Care Provider [phone]- [phone] Loyda Glaser RN Unavailable [phone] Yasmin Ho MD Unavailable [phone] Reason for Visit * Reason Comments Med Refill Encounter Details Date Type Department Care Team (Late st Contact Info) Description 11/18/2023 Refill [facility] [address] [place] [address] Tara Carlisle, DOMENICO Tinea unguium Social History [...] Office Visit [facility] [address] [place] [address] Mckay, Darshana, OD [address] [place] [address] 03/25/2025 9:45 AM EDT Office Visit [facility] [address] [place] [address] Sammie Maharaj MD [address] [place] [address] documented as of this encounter Visit Diagnoses Diagnosis Tinea unguium Dermatophytosis of nail documented in this encounter Additional Health Concerns Assessment Noted Time PHQ-9 Depression Total Score: 0 07/28/20 23 9:42 AM EDT documented as of this encounter Care Teams Cadmium Burner Relationship Specialty Start Date End Date Sammie Maharaj MD [address] [place] [address] PCP - General Family Medicine 10/10/18 Loyda Glaser, ERVIN [address] [place] [address] Recreational Facilities Motel Manager Family Medicine 10/31/23 Yasmin Ho MD [address] [place] [address] Gastroenterology 08/29/24 Manuel Carpenter PA [address] [address] Neurology 08/29/24 Paola Tolentino NP [address] [address] Endocrinology 10/24/24 [facility] Psychology Psychology 12/19/24 documented as of this encounter
--- OUTSIDE RECORDS SUMMARY | 2025-01-25 07:27 | XMS_ITS | Encounter Summary ---
Demographics Address [address] [facility] [address] [place] [address] Home Phone Mobile Phone Preferred Language Citizen [place]; Castilian Marital Status Single Jew Affiliation Unknown Race Unknown Ethnic Group Unknown Author Organization [facility] Address [address] [place] [address] Support Name Relationship Address Phone Orion Rubio Daughter [address] [facility] [address] [place] [address] Care Team Providers Care Boat Canvas Installer Name Role Phone Nicko, Sammie Beckett Primary Care Provider [phone] Encounter Details Date Type Department Care Team (Late st Contact Info) Description 09/20/2023 Orders Only [facility] Interventional Radiology [address] [place] [address] Ricardo Reyez MD [address] [place] [address] Social History Tobacco Use Types Packs/Day Years [...] Description 03/22/2025 3:30 PM EDT Office Visit [facility] Building Diabetes Clinic [address] [place] [address] Gis Manager: Natasha Rubalcava MD [address] [place] [address] [phone] 04/09/2025 9:00 AM EDT Follow-Up [facility] Liver Transplant Services [address] [place] [address] Yasmin Ho MD [address] [place] [address] 07/17/2025 8:00 AM EDT Office Visit [facility] Diabetes Clinic [address] [place] [address] Gis Manager: Paola Vance NP [address] [place] [address] 08/06/2025 8:00 AM EDT Office Visit [facility] Neurology Clinic [address] [place] [address] Manuel Carpenter PA [address] [place] [address] documented as of this encounter Visit Diagnoses Not on filedocumented in this encounter Care Teams Boat Canvas Installer Relationship Specialty Start Date End Date Sammie Maharaj [address] [place] [address] PCP - General Family Medicine 05/15/18 documented as of this encounter
--- OUTSIDE RECORDS SUMMARY | 2025-01-25 07:27 | XMS_ITS | Encounter Summary ---
Demographics Address [address] [facility] [address] [place] [address] Home Phone Mobile Phone Preferred Language Montenegrin; Castilian Marital Status Single Confucianist Affiliation Unknown Race Unknown Ethnic Group Unknown Author Organization [facility] Address [address] [place] [address] Support Name Relationship Address Phone Orion Rubio Daughter [address] [facility] [address] [place] [address] Care Team Providers Care Procedure Tech Name Role Phone Sammie Maharaj Sujit Primary Care Provider [phone]- [phone] Encounter Details Date Type Department Care Team (Late st Contact Info) Description 12/14/2023 Orders Only [facility] Interventional Radiology [address] [place] [address] Smith Manzo DO [address] [place] [address] Social History Tobacco Use Types Packs/Day Years [...] Description 03/22/2025 3:30 PM EDT Office Visit [facility] Building Diabetes Clinic [address] [place] [address] Oyster Shipper: Natasha Rubalcava MD [address] [place] [address] 04/09/2025 9:00 AM EDT Follow-Up [facility] Liver Transplant Services [address] [place] [address] Yasmin Ho MD [address] [place] [address] 07/17/2025 8:00 AM EDT Office Visit [facility] Diabetes Clinic [address] [place] [address] Oyster Shipper: Paola Vance NP [address] [place] [address] 08/06/2025 8:00 AM EDT Office Visit [facility] [address] [place] [address] Manuel Carpenter PA [address] [place] [address] documented as of this encounter Visit Diagnoses Not on filedocumented in this encounter Care Teams Procedure Tech Relationship Specialty Start Date End Date Sammie Maharaj [address] [place] [address] PCP - General Family Medicine 05/15/18 documented as of this encounter
--- OUTSIDE RECORDS SUMMARY | 2025-01-25 07:27 | XMS_ITS | Encounter Summary ---
Demographics Address [address] [facility] [address] [place] [address] Home Phone Mobile Phone Preferred Language Grenadian; Castilian Marital Status Single Church Affiliation Unknown Race Unknown Ethnic Group Unknown Author Organization [facility] Address [address] [place] [address] Support Name Relationship Address Phone Orion Rubio Daughter [address] [facility] [address] [place] [address] Care Team Providers Care Operating Table Assembler Name Role Phone Sammie Maharaj Primary Care Provider [phone] Encounter Details Date Type Department Care Team (Late st Contact Info) Description 11/03/2023 Orders Only [facility] Interventional Radiology [address] [place] [address] Duncan Ragland MD [address] [place] [address] Social History Tobacco Use Types Packs/Day Years [...] Description 03/22/2025 3:30 PM EDT Office Visit [facility] Building Diabetes Clinic [address] [place] [address] Bottle Blowing Machine Tender: Natasha Rubalcava MD [address] [place] [address] 04/09/2025 9:00 AM EDT Follow-Up [facility] Liver Transplant Services [address] [place] [address] Yasmin Ho MD [address] [place] [address] 07/17/2025 8:00 AM EDT Office Visit [facility] Diabetes Clinic [address] [place] [address] Bottle Blowing Machine Tender: Paola Vance SPEEDER WORKER [address] [place] [address] 08/06/2025 8:00 AM EDT Office Visit [facility] Neurology Clinic [address] [place] [address] Manuel Carpenter PA [address] [place] [address] documented as of this encounter Visit Diagnoses Not on filedocumented in this encounter Care Teams Operating Table Assembler Relationship Specialty Start Date End Date Sammie Maharaj [address] [place] [address] PCP - General Family Medicine 05/15/18 documented as of this encounter
--- OUTSIDE RECORDS SUMMARY | 2025-01-25 07:28 | XMS_ITS | Clinical Summary ---
Demographics Address [address] [facility] [address] [place] [address] Home Phone Mobile Phone Preferred Language Cambodian; Castilian Marital Status Single Samaritan Affiliation Unknown Race Unknown Ethnic Group Unknown Author Organization [facility] Address [address] [place] [address] Support Name Relationship Address Phone Orion Rubio Daughter [address] [facility] [address] [place] [address] Care Team Providers Care Plaster Machine Tender Name Role Phone Kenney Maharajgus Beckett Primary Care Provider Allergies Active Allergy Reactions Criticality Noted Date Comments Latex Rash Medications BD Sandy 2nd Gen Pen Needle 4 mm x 32 g USE 1 NIGHTLY 1 Active Freestyle lancets 28 gauge 1 Active Freestyle Lite test strips CHECK BLOOD SUGAR 3 TIMES A DAY 1 Active Alcohol Prep Pads pads, medicated 1 Active ferrous gluconate (FERGON) 324 mg (37.5 mg iron) tablet tablet Take 324 mg by mouth daily with breakfast. Active omeprazole (PriLOSEC) 20 mg capsule SMARTSI Capsule(s) By Mouth Daily 3 Active FreeStyle [place] Lite meter TEST BLOOD SUGAR THREE TIMES DAILY 4 Active FreeStyle [place] 2 [place] misc 4 Active FreeStyle [place] 2 Sensor [...] 8 capsule 4 Active FreeStyle [place] 3 [place] misc Use to monitor blood sugars. E11.9 [...] A DAY 90 tablet 11 4 Active Lantus Solostar U-100 Insulin 100 unit/mL (3 mL) pen injection Inject 18 Units under the skin nightly. 15 mL 11 5 Active lactulose 10 gram/15 mL solution Take 30 mL (20 g total) by mouth 5 times a day. 98623 mL 5 01/09/20 26 Active vitamin A 3,000 mcg (10,000 unit) capsule TAKE 1 CAPSULE (10,000 UNITS TOTAL) BY MOUTH ONCE A DAY. 60 capsule 5 01/14/20 25 predniSONE (DELTASONE) 20 mg tablet Take 2 tablets (40 mg total) by mouth once a day for 7 days. 14 tablet 5 01/10/20 25 Discontinue d(Allergic Response/Ad verse Reaction) Active Problems Problem Noted Date Diagnosed Date [...] from 18-14 by endo 04/2024 Seen by [facility]inology 04/18/24 Hemoglobin A1c is falsely low [...] Encounters Date Type Department Care Team Description 01/24/2025 Telephone [facility] Transplant Department [address] [place] [address] [phone] Katy Boateng, ERVIN 01/14/2025 Orders Only [facility] Transplant Department [address] [place] [address] [phone] Katy Boateng, ERVIN 01/14/2025 Telephone [facility] Transplant Department [address] [place] [address] [phone] Katy Boateng, ERVIN 01/10/2025 Results Follow-Up [facility] Liver Transplant Services [address] [place] [address] 53444 Katy Boateng, ERVIN 01/09/2025 Results Follow-Up [facility] Liver Transplant Services [address] [place] [address] 67040 Katy Boateng RN 01/09/2025 Orders Only [facility] Transplant Department [address] [place] [address] [phone] Lola Anthony MD 01/09/2025 Telephone [facility] Transplant Department [address] [place] [address] 43907 Katy Boateng, ERVIN 01/08/2025 8:00 AM EDT Follow-Up [facility] Liver Transplant Services [address] [place] [address] [phone] Yasmin Ho MD Cryptogenic cirrhosis (HCC) (Primary Dx) 01/08/2025 Orders Only [facility] Transplant Department [address] [place] [address] 46587 Katy Boateng, ERVIN Cryptogenic cirrhosis (HCC) (Primary Dx) 01/08/2025 Results Follow-Up [facility] Liver Transplant Services [address] [place] [address] [phone] Katy Boateng RN 01/08/2025 Orders Only [facility] Transplant Department [address] [place] [address] 41762 Katy Boateng RN Cryptogenic cirrhosis (HCC) (Primary Dx) 01/07/2025 Orders Only [facility] - External Imaging [address] [place] [address] [phone] Radiology, External 01/04/2025 Orders Only [facility] Transplant Department [address] [place] [address] 96444 Katy Boateng RN Cryptogenic cirrhosis (Primary Dx) 01/04/2025 Orders Only [facility] Transplant Department [address] [place] [address] [phone] Katy Boateng RN Cryptogenic cirrhosis (Primary Dx) 12/27/2024 Abstract [facility] Transplant Department [address] [place] [address] 87380 Yasmin Ho MD 12/21/2024 Orders Only [facility] Interventional Radiology [address] [place] [address] [phone] Matuesz Wilkinson DO 12/21/2024 Orders Only [facility] Transplant Department [address] [place] [address] [phone] Katy Boateng RN Cryptogenic cirrhosis (Primary Dx) 12/17/2024 Refill [facility] ACC Building Diabetes Clinic [address] [place] [address] [phone] Shift Boss: Kaylee Rodriguez NP 12/17/2024 Telephone [facility] Transplant Department [address] [place] [address] [phone] Katy Boateng RN 12/17/2024 Orders Only [facility] Transplant Department [address] [place] [address] [phone] Katy Boateng RN Cryptogenic cirrhosis (Primary Dx) 12/14/2024 Orders Only [facility] Transplant Department [address] [place] [address] 23094 Katy Boateng RN Cryptogenic cirrhosis (Primary Dx) 12/14/2024 Results Follow-Up [facility] Liver Transplant Services [address] [place] [address] [phone] Katy Boateng RN 12/13/2024 Abstract [facility] Transplant Department [address] [place] [address] 10524 Yasmin Ho MD 12/10/2024 Orders Only [facility] Transplant Department [address] [place] [address] 59470 Katy Boateng RN Cryptogenic cirrhosis (Primary Dx) 12/04/2024 Telephone [facility] Transplant Department [address] [place] [address] 94202 Katy Boateng RN 12/04/2024 Orders Only [facility] Transplant Department [address] [place] [address] 27750 Katy Boateng RN Cryptogenic cirrhosis (Primary Dx); Liver disease 11/28/2024 Telephone [facility] Transplant Department [address] [place] [address] [phone] Katy Boateng RN 11/14/2024 10:00 AM EST Social Work [facility] Liver Transplant Services [address] [place] [address] [phone] Marissa De La Cruz [facility] 11/14/2024 8:00 AM EST Office Visit [facility] Building Diabetes Clinic [address] [place] [address] [phone] Shift Boss: Paola Vance NP Type 2 diabetes mellitus without complication, with long-term current use of insulin (Primary Dx) 11/13/2024 Refill [facility] Liver Transplant Services [address] [place] [address] Yasmin Ho MD from Last 3 Months [...] Sign Reading Time Taken Comments Blood Pressure 114/66 01/08/2025 7:58 AM EDT Pulse 74 01/08/2025 7:58 AM EDT Temperature 36.9 ??C (98.4 ??F) 01/08/2025 7:58 AM ED T Respiratory Rate 18 01/08/2025 7:58 AM EDT Oxygen Saturation 100% 01/08/2025 7:58 AM EDT Inhaled Oxygen Concentration - - Weight 52 kg (114 lb 10.2 oz) 01/08/2025 7:58 AM EDT Height 144.8 cm (4' 9 ) 11/14/2024 8:06 AM EST Body Mass Index 24.81 11/14/2024 8:06 AM EST Plan of Treatment Upcoming Encounters Date Type Department Care Team (Late st Contact Info) Description 03/22/2025 3:30 PM EDT Office Visit [facility] Building Diabetes Clinic [address] [place] [address] Shift Boss: Natasha Rubalcava MD [address] [place] [address] [phone] 04/09/2025 9:00 AM EDT Follow-Up [facility] Liver Transplant Services [address] [place] [address] Yasmin Ho MD [address] [place] [address] [phone] 07/17/2025 8:00 AM EDT Office Visit [facility] Diabetes Clinic [address] [place] [address] Shift Boss: Paola Vance NP [address] [place] [address] [phone] 08/06/2025 8:00 AM EDT Office Visit [facility] Neurology Clinic [address] [place] [address] 71642 Manuel Carpenter PA [address] [place] [address] [phone] Health Maintenance Due Date Last Done Comments [...] 04/26/2024, Additional history exists Basic Metabolic Panel 01/08/2026 01/08/2025 , 12/07/2024, 10/24/2024, Additional history exists Pneumococcal Vaccine: Pediat bon [...] Additional history exists Procedures * Due to [place] state law, this organization might not be sharing negative HIV tests. Procedure Name Priority Date/Time Associated Diagnosis Comments AFP TUMOR MARKER Routine 01/08/2025 9:29 AM EDT Cryptogenic cirrhosis (HCC) HEPATIC FUNCTION PANEL Routine 01/08/2025 9:28 AM EDT Cryptogenic cirrhosis (HCC) BASIC METABOLIC PANEL Routine 01/08/2025 9:28 AM EDT Cryptogenic cirrhosis (HCC) CBC AUTO DIFFERENTIAL Routine 01/08/2025 9:28 AM EDT Cryptogenic cirrhosis (HCC) PROTIME-INR Routine 01/08/2025 9:28 AM EDT Cryptogenic cirrhosis (HCC) IMAGING - SCANNED Routine 01/07/2025 3:5 3 PM EDT LIVER PRE EXTERNAL PANEL Routine 12/24/2024 7:43 AM EDT LIVER PRE EXTERNAL PANEL Routine 12/10/2024 1:52 PM EST POCT GLYCOSYLATED HEMOGLOBIN (HGB A1C) Routine 11/14/2024 7:40 AM EST MICROALBUMIN, RANDOM URINE WITH CREATININE Routine 04/26/2024 4:22 PM EDT Type 2 diabetes mellitus without complication, with long-term current use of insulin HEPATITIS C ANTIBODY W/REFLEX TO HCV RNA, QUANTITATIVE PCR Routine 09/20/2023 12:40 PM EST Encounter for pre-transplant evaluation for liver transplant from Last 3 Months or Most Recently Relevant to Health Maintenance Results * Due to [place] state law, this organization might not be sharing negative HIV tests. * AFP Tumor Marker (01/08/2025 9:29 AM EDT) Pathologist [facility] Department Alpha Fetoprotein, Tumor Marker 3.6 ng/mL 01/10/2025 7:[address] [facility] Comment: Reference Range: ?? <6.1 The use of AFP as a tumor marker in females is not recommended. This test was performed using the Magdiel [place] chemiluminescent method. Values obtained from different assay methods cannot be used interchangeably. AFP levels, regardless of value, should not be interpreted as absolute evidence of the presence or absence of disease. Blood Structure of peripheral vein / Unknown Venipuncture / Unknown 01/08/2025 9:29 AM EDT 01/08/2025 9:42 AM EDT Narrative [facility] - 01/10/2025 7:34 AM EDT [facility] Received Date: us Yasmin Ho MD LAB BLOOD ORDERABLES Final R esult [facility] [address] [facility] [address], [place] [address], [place] [phone] [facility] [address] [facility] 3rd Floor, [place] [address], [place] [phone] * (ABNORMAL) CBC Auto Differential (01/08/2025 9:28 AM EDT) WBC 3.9 3.8 - 10.8 10*3/uL 01/08/2025 9:55 AM EDT [facility] RBC 3.77(L) 3.80 - 5.10 10*6/uL 01/08/2025 9:55 AM EDT [facility] Hemoglobin 12.0 11.7 - 15.5 g/dL 01/08/2025 9:55 AM EDT [facility] Hematocrit 36.2 35.0 - 45.0 % 01/08/2025 9:55 AM EDT [facility] MCV 96.0 80.0 - 100.0 fL 01/08/2025 9:55 AM EDT [facility] MCH 31.8 27.0 - 33.0 pg 01/08/2025 9:55 AM EDT [employer] [employer] [facility] MCHC 33.1 32.0 - 36.0 g/dL 01/08/2025 9:55 AM EDT [facility] RDW 14.2 11.0 - 15.0 % 01/08/2025 9:55 AM EDT [facility] Platelets 139(L) 140 - 400 10*3/uL 01/08/2025 9:55 AM EDT [facility] MPV 12.7(H) 7.5 - 12.5 fL 01/08/2025 9:55 AM EDT [employer] Neutrophil % 70.6 % 01/08/2025 9:55 AM EDT [facility] Immature Grans % 0.5 0.0 - 0.9 % 01/08/2025 9:55 AM EDT [facility] Lymphocyte % 17.4 % 01/08/2025 9:55 AM EDT [employer] [facility] Monocyte % 6.9 % 01/08/2025 9:55 AM EDT [facility] [facility] Eosinophil % 4.1 % 01/08/2025 9:55 AM EDT [facility] Basophil % 0.5 % 01/08/2025 9:55 AM EDT [facility] [employer] [facility] Neutrophil # 2.75 1.50 - 7.80 10*3/uL 01/08/2025 9:55 AM EDT [facility] [employer] [facility] Immature Grans # <0.03 <=0.03 10*3/uL 01/08/2025 9:55 AM EDT [facility] [employer] [facility] Lymphocyte # 0.70(L) 0.85 - 3.90 10*3/uL 01/08/2025 9:55 AM EDT [facility] [employer] [facility] Monocyte # 0.30 0.20 - 0.95 10*3/uL 01/08/2025 9:55 AM EDT [facility] [employer] [facility] Eosinophil # 0.20 0.02 - 0.50 10*3/uL 01/08/2025 9:55 AM EDT [facility] [employer] [employer] [facility] [employer] [facility] Basophil # <0.03 0.00 - 0.20 10*3/uL 01/08/2025 9:55 AM EDT [facility] [employer] [facility] nRBC % 0.0 /100 WBCs 01/08/2025 9:55 AM EDT [facility] [employer] [facility] nRBC # <0.01 <0.01 10*3/uL 01/08/2025 9:55 AM EDT [facility] [employer] Blood Structure of peripheral vein / Unknown Venipuncture / Unknown 01/08/2025 9:28 AM EDT 01/08/2025 9:42 AM EDT us Yasmin Ho MD LAB BLOOD ORDERABLES Final R esult [facility] [employer] [facility] LAB[facility] [address] [place] [address], [place] * Protime-INR (01/08/2025 9:28 AM EDT) Pathologist [facility] PT 11.9 9.6 - 12.4 Seconds 01/08/2025 10:14 AM EDT [facility] [employer] [facility] INR 1.1 0.9 - 1.1 01/08/2025 10:14 AM EDT [facility] [employer] [facility] Comment:The optimal therapeu tic INR range for patients treated with Vitamin K antagonists (VKAS, e.g., Warfarin) is 2.0 to 3.5. Discuss the desired range with your doctor/care team. Blood Structure of peripheral vein / Unknown Venipuncture / Unknown 01/08/2025 9:28 AM EDT 01/08/2025 9:42 AM EDT us Yasmin Ho MD LAB BLOOD ORDERABLES Final R esult [facility] PATHOLOGY LABORATORY [address] [place] [address], * (ABNORMAL) Hepatic Function Panel (01/08/2025 9:28 AM EDT) Pathologist [facility] Total Protein 6.3 6.0 - 8.0 g/dL 01/08/2025 10:29 AM EDT [facility] [employer] [facility] Albumin 3.2(L) 3.5 - 5.2 g/dL 01/08/2025 10:29 AM EDT [facility] [employer] [facility] Globulin, Total 3.1 2.1 - 4.2 g/dL 01/08/2025 10:29 AM EDT [facility] [employer] [facility] Bilirubin, Total 7.0(H) 0.2 - 1.2 mg/dL 01/08/2025 10:29 AM EDT [facility] Bilirubin, Direct 5.4(H) <=0.4 mg/dL 01/08/2025 10:29 AM EDT [facility] [employer] [facility] Alkaline Phosphatase 966(H) 35 - 129 U/L 01/08/2025 10:29 AM EDT [facility] AST 133(H) 10 - 40 U/L 01/08/2025 10:29 AM EDT [facility] ALT 109(H) 10 - 40 U/L 01/08/2025 10:29 AM EDT [facility] Bilirubin, Indirect 1.60(H) <=0.70 mg/dL 01/08/2025 10:29 AM EDT [facility] A/G Ratio 1.0(L) 1.5 - 3.0 01/08/2025 10:29 AM EDT [facility] Blood Structure of peripheral vein / Unknown Venipuncture / Unknown 01/08/2025 9:28 AM EDT 01/08/2025 9:44 AM EDT us Yasmin Ho MD LAB BLOOD ORDERABLES Final R esult [facility] [address] [place] [address], * (ABNORMAL) Basic Metabolic Panel (01/08/2025 9:28 AM EDT) NA 141 135 - 145 mmol/L 01/08/2025 10:29 AM EDT [facility] K 3.9 3.5 - 5.3 mmol/L 01/08/2025 10:29 AM EDT [facility] Cl 112(H) 98 - 107 mmol/L 01/08/2025 10:29 AM EDT [facility] CO2 19(L) 22 - 32 mmol/L 01/08/2025 10:29 AM EDT [facility] BUN 12 7 - 23 mg/dL 01/08/2025 10:29 AM EDT [facility] Creatinine 0.52 0.50 - 1.20 mg/dL 01/08/2025 10:29 AM EDT [facility] [employer] [facility] Glucose 149(H) 65 - 99 mg/dL 01/08/2025 10:29 AM EDT [facility] [employer] [facility] Calcium 8.6 8.6 - 10.5 mg/dL 01/08/2025 10:29 AM EDT [facility] [employer] [facility] Anion Gap 10 5 - 15 01/08/2025 10:29 AM EDT [facility] [employer] [facility] eGFR >90 >=60 mL/min/1. 73m2 01/08/2025 10:29 AM EDT [facility] [employer] [facility] Comment:The estimated glomer [...] of Race in Diagnosing Kidney Disease . Blood Structure of peripheral vein / Unknown Venipuncture / Unknown 01/08/2025 9:28 AM EDT 01/08/2025 9:44 AM EDT us Yasmin Ho MD LAB BLOOD ORDERABLES Final R esult [facility] [employer] [employer] [facility] LAB[facility] [address] [place] [address], [place] * IMAGING - SCANNED (01/07/2025 3:53 PM EDT) Anatomical Region Laterality Modality Other us Unknown Provider SCANNED PROCEDURES Final Res ult * LIVER PRE EXTERNAL PANEL (12/24/2024 7:43 AM EDT) Only the most recent of2 resultswithin the time period is included. Sodium 142 mmol/L [facility] Potassium 3.3 [facility] Chloride 116 [facility] Carbon Dioxide 18 [facility] Glucose 102 [facility] BUN 13 mg/dL [facility] Creatinine 0.53 mg/dL [facility] Calcium 8.8 mg/dL [facility] Total Protein 6.7 g/dL [facility] Albumin 3.0 g/dL [facility] Bilirubin, Total 6.7 mg/dL [facility] Alkaline Phosphatase 726 U/L [facility] AST 98 U/L [facility] ALT 83 U/L [facility] WBC 4.9 10*3/uL [facility] Hgb 11.6 [facility] Hematocrit 35.1 % [facility] Platelets 124 10*3/uL [facility] INR 1.00 [facility] 12/24/2024 7:43 AM EDT us Yasmin Ho MD LAB BLOOD ORDERABLES Final R esult [facility] [address] [place] [address] * POCT Glycosylated Hemoglobin (HGB A1C), interfaced (11/14/2024 7:40 AM EST) Hemoglobin A1C, POCT 4.2 <=5.6 % 11/14/2024 8:12 AM EST [facility] Comment: A1C Recommendation for Non- Adults with Diabetes: <7.0% ADA 2011 Standards of Medical Care in Diabetes Blood 11/14/2024 7:40 AM EST 11/14/2024 8:12 AM EST us Paola Tolentino NP LAB POCT ORDERABLES - DEVICE Final Result [facility] [address] [place] [address], [place] * Microalbumin, Random Urine with Creatinine (04/26/2024 4:22 PM EDT) Microalbumin, Urine <2.0 mg/dL 04/26/2024 5:20 PM EDT [facility] [employer] [facility] Creatinine, Urine 69 15 - 278 mg/dL 04/26/2024 5:20 PM EDT [facility] Microalb/Creat Ratio, Random Urine 04/26/2024 5:20 PM EDT [facility] [employer] [facility] Comment: < 1.0 mcg/mgCr Microalbumin Reference Range: Normal ? <30 mcg/mg Creatinine Microalbuminuria ? 30-300 mcg/mg Creatinine Clinical Albuminuria >300 mcg/mg Creatinine Reference: ADA Guideline. Diabetes Care. 2004;27 (suppl 1) Urine Voided urine specimen / Unknown Non-Blood Collection / Unknown 04/26/2024 4:22 PM EDT 04/26/2024 4:35 PM EDT us Natasha Kramer MD LAB URINE ORDERABLES Final Resul t [facility] [address] [place] [address], * Hepatitis C Antibody w/Reflex to PCR (09/20/2023 12:40 PM EST) Hepatitis C Antibody NON-REACT VIVEK NON-REACT VIVEK 09/21/2023 6:41 AM EST [facility] Comment: HCV antibody was non-reactive. There is no laboratory evidence of HCV infection. In most cases, no further action is required. However, if recent HCV exposure is suspected, a test for HCV RNA (test code 59825) is suggested. For additional information please refer to http://education.RealtimeBoard/faq/IBJ52h5 (This link is being provided for informational/ educational purposes only.) Blood Structure of peripheral vein / Unknown Venipuncture / Unknown 09/20/2023 12:40 PM EST 09/20/2023 1:07 PM EST Narrative [facility] - 09/21/2023 6:41 AM EST [facility] Received Date: us Yasmin Ho MD LAB BLOOD ORDERABLES Final R esult [facility] [address] [facility] [address], [place] [address], [place] [phone] [facility] [address] [facility] [address] Floor, [place] [address], [place] [phone] from Last 3 Months or Most Recently Relevant to Health Maintenance Insurance [employer] Advance Directives Documents on File Type Date Recorded Patient Research Worker Encyclopedia Expl [facility] Proxy 10/26/2023 12:55 PM - Advance Directive 01/22/2014 12:00 AM Adva nce Care Directives Advance Directive 04/03/2010 12:00 AM luba Sandhu edical Dec Making (Adv.Dir) * Presumed Full Code (Latest Code Status on File) Date Activated Date Inactivated Comments 05/15/2024 12:15 PM 05/16/2024 2:39 AM Care Teams Plaster Machine Tender Relationship Specialty Start Date End Date Sammie Maharaj [address] [place] [id number] PCP - General Family Medicine 05/15/18
--- OUTSIDE RECORDS SUMMARY | 2025-01-25 07:28 | XMS_ITS | Referral Summary ---
Demographics Address [address] [facility] [address] [place] [address] Home Phone Mobile Phone Preferred Language Finnish; Castilian Marital Status Single Restorationist Affiliation Unknown Race Unknown Ethnic Group Unknown Author Organization [facility] Address [address] [place] [address] Support Name Relationship Address Phone Orion Rubio Daughter [address] [facility] [address] [place] [address] Care Team Providers Care Property Insurance Agent Name Role Phone Nicko, Sammie Beckett Primary Care Provider Encounters Date Type Department Care Team Description 01/24/2025 Telephone [facility] Transplant Department [address] [place] [address] 32514 Katy Boateng, ERVIN 01/14/2025 Orders Only [facility] Transplant Department [address] [place] [address] 93133 Katy Boateng, RN 01/14/2025 Telephone [facility] Transplant Department [address] [place] [address] 05278 Katy Boateng, RN 01/10/2025 Results Follow-Up [facility] Transplant Services [address] [place] [address] 55535 Katy Boateng, RN 01/09/2025 Results Follow-Up [facility] [address] [place] [address] 35813 Katy Boateng, RN 01/09/2025 Orders Only [facility] Transplant Department [address] [place] [address] 04189 ProviderLola MD 01/09/2025 Telephone [facility] Transplant Department [address] [place] [address] 05739 Katy Boateng, RN 01/08/2025 Orders Only [facility] Transplant Department [address] [place] [address] 94566 Katy Boateng RN Cryptogenic cirrhosis (HCC) (Primary Dx) 01/08/2025 Results Follow-Up [facility] [address] [place] [address] 67285 Katy Boateng RN 01/08/2025 Orders Only [facility] Transplant Department [address] [place] [address] 21674 Katy Boateng RN Cryptogenic cirrhosis (HCC) (Primary Dx) 01/08/2025 8:00 AM EDT Follow-Up [facility] Transplant Services [address] [place] [address] 60987 Yasmin Ho MD Cryptogenic cirrhosis (HCC) (Primary Dx) 01/07/2025 Orders Only [facility] - External Imaging [address] [place] [address] 44493 Radiology, External 01/04/2025 Orders Only [facility] Transplant Department [address] [place] [address] 37120 Katy Boateng RN Cryptogenic cirrhosis (Primary Dx) 01/04/2025 Orders Only [facility] Transplant Department [address] [place] [address] 11745 Katy Boateng RN Cryptogenic cirrhosis (Primary Dx) 12/27/2024 Abstract [facility] Transplant Department [address] [place] [address] [phone] Yasmin Ho MD 12/21/2024 Orders Only [facility] Interventional Radiology [address] [place] [address] 79815 Mateusz Wilkinson DO 12/21/2024 Orders Only [facility] Transplant Department [address] [place] [address] 51859 Katy Boateng RN Cryptogenic cirrhosis (Primary Dx) 12/17/2024 Refill [facility] Building Diabetes Clinic [address] [place] [address] [employer] Teacher: Kaylee Rodriguez NP 12/17/2024 Telephone [facility] Transplant Department [address] [place] [address] 65969 Katy Boateng RN 12/17/2024 Orders Only [facility] Transplant Department [address] [place] [address] 41186 Katy Boateng RN Cryptogenic cirrhosis (Primary Dx) 12/14/2024 Orders Only [facility] Transplant Department [address] [place] [address] 30365 Katy Boateng RN Cryptogenic cirrhosis (Primary Dx) 12/14/2024 Results Follow-Up [facility] Transplant Services [address] [place] [address] 89578 Katy Boateng RN 12/13/2024 Abstract [facility] Transplant Department [address] [place] [address] 82698 Yasmin Ho MD 12/10/2024 Orders Only [facility] Transplant Department [address] [place] [address] 03846 Katy Boateng RN Cryptogenic cirrhosis (Primary Dx) 12/04/2024 Telephone [facility] Transplant Department [address] [place] [address] 46718 Katy Boateng RN 12/04/2024 Orders Only [facility] Transplant Department [address] [place] [address] 15613 Katy Boateng RN Cryptogenic cirrhosis (Primary Dx); Liver disease 11/28/2024 Telephone [facility] Transplant Department [address] [place] [address] 44795 Katy Boateng RN 11/14/2024 10:00 AM EST Social Work [facility] Liver Transplant Services [address] [place] [address] Marissa De La Cruz, MANUFACTURING TECHNICIAN 11/14/2024 8:00 AM EST Office Visit [facility] Building Diabetes Clinic [address] [place] [address] [employer] Teacher: Paola Vance NP Type 2 diabetes mellitus without complication, with long-term current use of insulin (Primary Dx) 11/13/2024 Refill [facility]plant [facility] [address] [place] [address] Yasmin Ho MD from Last 3 Months [...] Capsule(s) By Mouth Daily 3 Active [employer] Orrum Lite meter TEST BLOOD SUGAR THREE TIMES DAILY 4 Active [facility] [place] 2 [place] misc 4 Active FreeStyle [place] 2 Sensor [...] 8 capsule 4 Active [facility] [place] 3 [place] misc Use to monitor blood sugars. E11.9 [...] total) by mouth 5 times a day. 96162 mL 5 01/09/20 26 Active vitamin A [...] Description 03/22/2025 3:30 PM EDT Office Visit [facility] Building Diabetes Clinic [address] [place] [address] [employer] Teacher: Natasah Rubalcava MD [address] [place] [address] 139[address] 04/09/2025 9:00 AM EDT Follow-Up [facility] Liver Transplant Services [address] [place] [address] Yasmin Ho MD [address] [place] [address] 07/17/2025 8:00 AM EDT Office Visit [facility] Diabetes Clinic [address] [place] [address] [employer] Teacher: Paola Vance NP [address] [place] [address] 08/06/2025 8:00 AM EDT Office Visit [facility] Neurology Clinic [address] [place] [address] 90027 Manuel Carpenter PA [address] [place] [address] 745[address] Procedures * Due to [place] state law, [...] Health Maintenance Results * Due to [place] state law, this organization might not be sharing negative HIV tests. * AFP Tumor Marker (01/08/2025 9:29 AM EDT) Alpha Fetoprotein, Tumor Marker 3.6 ng/mL 01/10/2025 7:34 AM EDT [facility] Comment: Reference Range: ?? <6.1 The use of AFP as a tumor marker in females is not recommended. This test was performed using the Magdiel Eckley chemiluminescent method. Values obtained from different assay methods cannot be used interchangeably. AFP levels, regardless of value, should not be interpreted as absolute evidence of the presence or absence of disease. Blood Structure of peripheral vein / Unknown Venipuncture / Unknown 01/08/2025 9:29 AM EDT 01/08/2025 9:42 AM EDT Narrative [facility] - 01/10/2025 7:34 AM EDT [facility] Received Date: us Yasmin Ho MD LAB BLOOD ORDERABLES Final R esult [facility] [address] [facility] 3rd Floor, [place] [address], [place] [phone] [facility] [address], [place] [address], [place] [phone] * (ABNORMAL) CBC Auto Differential (01/08/2025 9:28 AM EDT) WBC 3.9 3.8 - 10.8 10*3/uL 01/08/2025 9:55 AM EDT [facility] RBC 3.77(L) 3.80 - 5.10 10*6/uL 01/08/2025 9:55 AM EDT [facility] Hemoglobin 12.0 11.7 - 15.5 g/dL 01/08/2025 9:55 AM EDT [facility] Hematocrit 36.2 35.0 - 45.0 % 01/08/2025 9:55 AM EDT [facility] MCV 96.0 80.0 - 100.0 fL 01/08/2025 9:55 AM EDT [facility] MCH 31.8 27.0 - 33.0 pg 01/08/2025 9:55 AM EDT [facility] MCHC 33.1 32.0 - 36.0 g/dL 01/08/2025 9:55 AM EDT [facility] RDW 14.2 11.0 - 15.0 % 01/08/2025 9:55 AM EDT [facility] Platelets 139(L) 140 - 400 10*3/uL 01/08/2025 9:55 AM EDT [facility] MPV 12.7(H) 7.5 - 12.5 fL 01/08/2025 9:55 AM EDT [facility] Neutrophil % 70.6 % 01/08/2025 9:55 AM EDT [facility] Immature Grans % 0.5 0.0 - 0.9 % 01/08/2025 9:55 AM EDT [facility] Lymphocyte % 17.4 % 01/08/2025 9:55 AM EDT [facility] Monocyte % 6.9 % 01/08/2025 9:55 AM EDT [facility] Eosinophil % 4.1 % 01/08/2025 9:55 AM EDT [facility] Basophil % 0.5 % 01/08/2025 9:55 AM EDT [facility] Neutrophil # 2.75 1.50 - 7.80 10*3/uL 01/08/2025 9:55 AM EDT [facility] Immature Grans # <0.03 <=0.03 10*3/uL 01/08/2025 9:55 AM EDT [facility] Lymphocyte # 0.70(L) 0.85 - 3.90 10*3/uL 01/08/2025 9:55 AM EDT [facility] Monocyte # 0.30 0.20 - 0.95 10*3/uL 01/08/2025 9:55 AM EDT [facility] Eosinophil # 0.20 0.02 - 0.50 10*3/uL 01/08/2025 9:55 AM EDT [facility] Basophil # <0.03 0.00 - 0.20 10*3/uL 01/08/2025 9:55 AM EDT [facility] nRBC % 0.0 /100 WBCs 01/08/2025 9:55 AM EDT [facility] nRBC # <0.01 <0.01 10*3/uL 01/08/2025 9:55 AM EDT [facility] Blood Structure of peripheral vein / Unknown Venipuncture / Unknown 01/08/2025 9:28 AM EDT 01/08/2025 9:42 AM EDT us Yasmin Ho MD LAB BLOOD ORDERABLES Final R esult [facility] [address] [place] [address], * Protime-INR (01/08/2025 9:28 AM EDT) Pathologist [facility] PT 11.9 9.6 - 12.4 Seconds 01/08/2025 10:14 AM EDT [facility] INR 1.1 0.9 - 1.1 01/08/2025 10:14 AM EDT [facility] Comment:The optimal therapeu tic INR range for patients treated with Vitamin K antagonists (VKAS, e.g., Warfarin) is 2.0 to 3.5. Discuss the desired range with your doctor/care team. Blood Structure of peripheral vein / Unknown Venipuncture / Unknown 01/08/2025 9:28 AM EDT 01/08/2025 9:42 AM EDT Yasmin Ho MD LAB BLOOD ORDERABLES Final R esult [facility] [address] [place] [address], * (ABNORMAL) Hepatic Function Panel (01/08/2025 9:28 AM EDT) Pathologist [facility] Total Protein 6.3 6.0 - 8.0 g/dL 01/08/2025 10:29 AM EDT [facility] Albumin 3.2(L) 3.5 - 5.2 g/dL 01/08/2025 10:29 AM EDT [facility] Globulin, Total 3.1 2.1 - 4.2 g/dL 01/08/2025 10:29 AM EDT [facility] Bilirubin, Total 7.0(H) 0.2 - 1.2 mg/dL 01/08/2025 10:29 AM EDT [facility] Bilirubin, Direct 5.4(H) <=0.4 mg/dL 01/08/2025 10:29 AM EDT [facility] Alkaline Phosphatase 966(H) 35 - 129 U/L 01/08/2025 10:29 AM EDT [facility] AST 133(H) 10 - 40 U/L 01/08/2025 10:29 AM EDT [facility] ALT 109(H) 10 - 40 U/L 01/08/2025 10:29 AM EDT [facility] Bilirubin, Indirect 1.60(H) <=0.70 mg/dL 01/08/2025 10:29 AM EDT [facility] A/G Ratio 1.0(L) 1.5 - 3.0 01/08/2025 10:29 AM EDT [facility] Blood Structure of peripheral vein / Unknown Venipuncture / Unknown 01/08/2025 9:28 AM EDT 01/08/2025 9:44 AM EDT us Yasmin Ho MD LAB BLOOD ORDERABLES Final R esult [facility] [address] [place] [address], * (ABNORMAL) Basic Metabolic Panel (01/08/2025 9:28 AM EDT) NA 141 135 - 145 mmol/L 01/08/2025 10:29 AM EDT [facility] K 3.9 3.5 - 5.3 mmol/L 01/08/2025 10:29 AM EDT [facility] Cl 112(H) 98 - 107 mmol/L 01/08/2025 10:29 AM EDT [facility] CO2 19(L) 22 - 32 mmol/L 01/08/2025 10:29 AM EDT [facility] BUN 12 7 - 23 mg/dL 01/08/2025 10:29 AM EDT [facility] Creatinine 0.52 0.50 - 1.20 mg/dL 01/08/2025 10:29 AM EDT [facility] Glucose 149(H) 65 - 99 mg/dL 01/08/2025 10:29 AM EDT [facility] Calcium 8.6 8.6 - 10.5 mg/dL 01/08/2025 10:29 AM EDT [facility] Anion Gap 10 5 - 15 01/08/2025 10:29 AM EDT [facility]ERSemi[facility] LaboratoriesTHE [facility] eGFR >90 >=60 mL/min/1. 73m2 01/08/2025 10:29 AM EDT [facility] Comment:The estimated glomer [...] MD LAB BLOOD ORDERABLES Final R esult [facility] [address] [place] [address], * IMAGING - SCANNED (01/07/2025 3:53 PM EDT) Anatomical Region Laterality Modality Other us Unknown Provider MD SCANNED PROCEDURES Final Res ult * LIVER PRE EXTERNAL PANEL (12/24/2024 7:43 AM EDT) Only the most recent of2 resultswithin the time period is included. Sodium 142 mmol/L [facility] Potassium 3.3 [facility] Chloride 116 [facility] Carbon Dioxide 18 [facility] Glucose 102 [facility] BUN 13 mg/dL [facility] Creatinine 0.53 mg/dL [facility] Calcium 8.8 mg/dL [facility] Total Protein 6.7 g/dL [facility] Albumin 3.0 g/dL [facility] Bilirubin, Total 6.7 mg/dL [facility] Alkaline Phosphatase 726 U/L [facility] AST 98 U/L [facility] ALT 83 U/L [facility] WBC 4.9 10*3/uL [facility] Hgb 11.6 [facility] Hematocrit 35.1 % [facility] Platelets 124 10*3/uL [facility] INR 1.00 [facility] 12/24/2024 7:43 AM EDT us Yasmin Ho MD LAB BLOOD ORDERABLES Final R esult Performing Organization Address City/[facility]/ZIP Co de Phone Number [facility] [address] [place] [address] * POCT Glycosylated Hemoglobin (HGB A1C), interfaced (11/14/2024 7:40 AM EST) Hemoglobin A1C, POCT 4.2 <=5.6 % 11/14/2024 8:12 AM EST [facility] Comment: A1C Recommendation for Non- Adults with Diabetes: <7.0% ADA 2011 Standards of Medical Care in Diabetes Blood 11/14/2024 7:40 AM EST 11/14/2024 8:12 AM EST us Paola Tolentino NP LAB POCT ORDERABLES - DEVICE Final Result [facility] [address] [place] [address], * Microalbumin, Random Urine with Creatinine (04/26/2024 4:22 PM EDT) Pathologist [facility] Microalbumin, Urine <2.0 mg/dL 04/26/2024 5:20 PM EDT [facility] Creatinine, Urine 69 15 - 278 mg/dL 04/26/2024 5:20 PM EDT [facility] Microalb/Creat Ratio, Random Urine 04/26/2024 5:20 PM EDT [facility] Comment: < 1.0 mcg/mgCr Microalbumin Reference Range: Normal ? <30 mcg/mg Creatinine Microalbuminuria ? 30-300 mcg/mg Creatinine Clinical Albuminuria >300 mcg/mg Creatinine Reference: ADA Guideline. Diabetes Care. 2004;27 (suppl 1) Urine Voided urine specimen / Unknown Non-Blood Collection / Unknown 04/26/2024 4:22 PM EDT 04/26/2024 4:35 PM EDT us Natasha Kramer MD LAB URINE ORDERABLES Final Resul t [facility] [address] [place] [address], * Hepatitis C Antibody w/Reflex to PCR (09/20/2023 12:40 PM EST) Pathologist [facility] Hepatitis C Antibody NON-REACT VIVEK NON-REACT VIVEK 09/21/2023 6:41 AM EST [facility] Comment: HCV antibody was non-reactive. There is no laboratory evidence of HCV infection. In most cases, no further action is required. However, if recent HCV exposure is suspected, a test for HCV RNA (test code 46032) is suggested. For additional information please refer to http://education.VetCloud/faq/UHM35c1 (This link is being provided for informational/ educational purposes only.) Blood Structure of peripheral vein / Unknown Venipuncture / Unknown 09/20/2023 12:40 PM EST 09/20/2023 1:07 PM EST Narrative [facility] - 09/21/2023 6:41 AM EST [facility] Received Date:[id number] Yasmin Ho MD LAB BLOOD ORDERABLES Final R esult [facility] [address] [facility] 3[address] Floor, [place] [address], [place] [phone] [facility] [address] [facility] 3rd Floor, [place] [address], [place] [phone] from Last 3 Months or Most Recently Relevant to Health Maintenance [facility] Advance Directives Documents on File Type Date Recorded Patient Quill Fixer [facility] Proxy 10/26/2023 12:55 PM 10-10 Advance Directive 01/22/2014 12:00 AM Michael mahoney Care Directives Advance Directive 04/03/2010 12:00 AM luba Sandhu edical Dec Making (Adv.Dir) * Presumed Full Code (Latest Code Status on File) Date Activated Date Inactivated Comments 05/15/2024 12:15 PM 05/16/2024 2:39 AM Care Teams Property Insurance Agent Relationship Specialty Start Date End Date Sammie Maharaj: [phone] [address] [place] [phone] PCP - General Family Medicine 05/15/18
--- OUTSIDE RECORDS SUMMARY | 2025-01-25 07:28 | XMS_ITS | Data Portability ---
Author Organization [employer] Address [address] [place] [phone] Care Team Providers Care Smokehouse Worker Name Role Phone [facility] OTHER [facility] OTHER Assessment No assessment recorded. Plan [...] Name and Address Organization Details Recorded Time 31039 acetamino phen medicatio n Not available Not available Not available 12/07/2024 161 RxNorm Not Available [facility] - production 12:30:55 62352 latex environme nt,medica tion Not available Not available Not available 12/07/2024 96624 91 RxNorm Not Available [facility] - production [...] Available No t Available [employer] [place] 3 [place] active Not Available Not Available Not Available [...] [degF] 110 mm[Hg] 62 mm[Hg] Not Available [facility] production 5 18:33:29 Social History None recorded. Functional Status None recorded. Mental Status None recorded. Family History Nothing Reported. Medical History No medical history recorded. Gynecological HistoryNo gynecological history recorded. Obstetrics History GPAL:G 0 P 0 0 0 0 Past Encounters Encounter ID Performer Location Encounter Start Date Encounter Closed Date Diagnosis/Indication Diagnosis SNOMED-CT Code Diagnosis ICD10 Code Diagnosis Note [id number] Mi Chen MD Main - [facility] [address] [place] [address] [phone] 12/14/2024 18:33:24 12/14/2024 20:52:08 Bilateral lower limb edema 312280542 R60.0 As noted, we were called to see this patient regarding concerns of LE swelling. Evaluation in the field was performed by my applications programmer analyst colleague, as noted above, I provided real-time [...] Watson Member ID Guarantor Name 12/14/2024 1 [facility] - DOS ON OR AFTER 2023 - DUAL ELIGIBLE - SENIOR LIVING OPTIONS AND ONE CARE (MEDICARE REPLACEMENT/ADV ANTAGE - HMO) Aubrie Mario [id number] Aubrie Mario Notes Date Note Type Note [...] no active ABX info provided by daughter Pole Tester verified the name//address and phone number. Education provided on the response time and the Patient was advised to monitor reported s/s and seek emergency treatment if needed Gathering Machine Setter Organization Information for Duncan Romero [employer] Business Legal Name: [employer]? Address: [address] [place] [address] [place] [address], Popcorn Attendant: Kris MUNOZ No.: [id number] Gathering Machine Setter POC Test Results from Duncan Romero [employer] Blood Glucose Measurement (18:33:13) Blood Glucose: 230 mg/dL ................... ................... ................... ................... ................... ................... ................... ........ Gathering Machine Setter Note From Duncan Romero: Arrived to find a 44-year-old Slovenian-speaking female in the apartment with daughter which [...] in ankles or lower extremities. Contact of [facility] [place] and discuss patient presentation, assessment, and vitals. [...] ................... ................... ................... ................... ................... ................... ........ [facility] [place] Consulted: Mi Chen ................... ................... ................... ................... ................... ................... ................... ........ Disposition: Sheng Chen MD [address] [facility],[address], [place], [phone], [employer] 12/14/2024 20:17:46 OBGyn Episode No OBEpisode recorded.
--- OUTSIDE RECORDS SUMMARY | 2025-01-25 07:28 | XMS_ITS | Encounter Summary ---
Demographics Address [address] [facility] [address] [place] [address] Home Phone Mobile Phone Preferred Language Mauritanian; Castilian Marital Status Single Restorationism Affiliation Unknown Race Unknown Ethnic Group Unknown Author Organization [facility] Address [address] [place] [address] Support Name Relationship Address Phone Orion Rubio Daughter [address] [facility] [address] [place] [address] Care Team Providers Care Stationary Engineer Name Role Phone Sammie Maharaj Primary Care Provider [phone] Encounter Details Date Type Department Care Team (Late st Contact Info) Description 12/21/2024 Orders Only [facility] Interventional Radiology [address] [place] [phone] Mateusz Wilkinson DO [address] [place] [address] Social History Tobacco Use Types Packs/Day Years [...] Description 03/22/2025 3:30 PM EDT Office Visit [facility] Building Diabetes Clinic [address] [place] [address] Beater And Pulper Feeder: Natasha Rubalcava MD [address] [place] [address] 04/09/2025 9:00 AM EDT Follow-Up [facility] Liver Transplant Services [address] [place] [address] Yasmin Ho MD [address] [place] [address] 07/17/2025 8:00 AM EDT Office Visit [facility] Diabetes Clinic [address] [place] [address] Beater And Pulper Feeder: Paola Vance, PATTERNMAKER BENCH [address] [place] [address] 08/06/2025 8:00 AM EDT Office Visit [facility] Neurology Clinic [address] [place] [address] Manuel Carpenter PA [address] [place] [phone] documented as of this encounter Visit Diagnoses Not on filedocumented in this encounter Care Teams Stationary Engineer Relationship Specialty Start Date End Date Sammie Maharaj: [phone] [address] [place] [address] PCP - General Family Medicine 05/15/18 documented as of this encounter
--- OUTSIDE RECORDS SUMMARY | 2025-01-25 07:28 | XMS_ITS | Encounter Summary ---
Demographics Address [address] [facility] [address] [place] [address] Home Phone Mobile Phone Preferred Language Pakistani; Castilian Marital Status Single Sikh Affiliation Unknown Race Unknown Ethnic Group Unknown Author Organization [facility] Address [address] [place] [address] Support Name Relationship Address Phone Orion Rubio Daughter [address] [facility] [address] [place] [address] Care Team Providers Care Restaurant Greeter Name Role Phone Sammie Maharaj Sujit Primary Care Provider +[phone]- [phone] Encounter Details Date Type Department Care Team (Late st Contact Info) Description 07/13/2017 Transplant Conversio n Encounter [facility] Information Management [address] [place] [address] Provider, [facility] Social History Tobacco Use Types Packs/Day Years [...] Description 03/22/2025 3:30 PM EDT Office Visit [facility] Building Diabetes Clinic [address] [place] [address] Circulation Director: Natasha Rubalcava MD [address] [place] [address] 04/09/2025 9:00 AM EDT Follow-Up [facility] Liver Transplant Services [address] [place] [address] Yasmin Ho MD [address] [place] [address] 07/17/2025 8:00 AM EDT Office Visit [facility] Diabetes Clinic [address] [place] [address] Circulation Director: Paola Vance ANAESTHETIC TECHNICIAN [address] [place] [address] 08/06/2025 8:00 AM EDT Office Visit [facility] Neurology Clinic [address] [place] [address] Manule Carpenter PA [address] [place] [address] documented as of this encounter Visit Diagnoses Not on filedocumented in this encounter Care Teams Restaurant Greeter Relationship Specialty Start Date End Date Sammie Maharaj: [phone] [address] [place] [address] PCP - General Family Medicine 05/15/18 documented as of this encounter
--- OUTSIDE RECORDS SUMMARY | 2025-01-25 07:28 | XMS_ITS ---
Demographics Address 17 [facility] [address] [place] [address] Home Phone Mobile Phone Preferred Language Angolan; Castilian Marital Status Single Buddhism Affiliation Unknown Race Unknown Ethnic Group Unknown Author Organization [facility] Address [address] [place] [address] Support Name Relationship Address Phone Orion Rubio Daughter [address] [facility] [address] [place] [address] Care Team Providers Care Core Composer Machine Tender Name Role Phone [place] Sammie Sujit Primary Care Provider [phone] Transplant Episode Liver Candidate [facility] [place] - [facility] waitlisted on 12/30/2023 Marked as Active on 12/30/2023 Liver CoordinatorKaty Boateng RN Phone: N/A Fax: N/A Email: N/A Scores Score Value Updated Expires Exceptions/[place] sons CPRA Not available UNOS MELD 18 01/08/2025 04/08/2025 MELD (Calc) 18 01/08/2025 [place] Organ Diagnosis Organ Primary Contributory 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 Alexander NP Referring Physician [phone] [email or web address] Pre-Transplant Referred: 09/06/2023 Evaluation began: 10/21/2023 Committee: 12/15/2023 Center waitlisted: 12/30/2023 Appointments (12/25/2024 - 02/24/2025) When With Visit Type Description 01/08/2025 Transplant - Bernardo Ho Follow Up C ryptogenic cirrhosis (HCC) (Primary Dx)
[2025-01-25 08:28] LABS: INTERNATIONAL NORM RATIO 1.4 (0.9-1.1); Prothrombin Time 16.1 SEC (10.9-12.4)
[2025-01-25 09:03] LABS: Alanine Aminotransferase 91 U/L (0-31); Albumin Level 2.8 g/dL (3.5-5.0); Anion Gap 10 (12-20); Aspartate Amino Transferase 112 U/L (5-31); Bilirubin Direct 5.6 mg/dL (0.0-0.5); Blood Urea Nitrogen 13 mg/dL (9-16); Calcium 8.6 mg/dL (8.4-10.2); Carbon Dioxide 20 mmol/L (22-29); Chloride 116 mmol/L (96-108); Estimated Glomerular Filt Rate > 60; Glucose Random 153 mg/dL (60-115); Sodium 143 mmol/L (135-145); Total Protein 5.9 g/dL (6.5-8.0)
[2025-01-25 09:09] LABS: Alkaline Phosphatase 942 U/L (39-117)
== END 2025-01-25 07:25 | disposition home or self-care (01) ==
LOC: HO.LAB 07:24
PROVIDERS: PCP Family Medicine; Visit Provider Internal Medicine
DX: K74.69 Other cirrhosis of liver (principal)
CPT/HCPCS: 36415; 80048; 80076; 85610

== ENCOUNTER 2025-02-14 07:24 | Outpatient (REF) | payer OTHER, SELFPAY ==
--- OUTSIDE RECORDS SUMMARY | 2025-02-14 07:26 | XMS_ITS | Encounter Summary ---
Author Organization [email or web address] Address 75 [facility] 7t [place] [address] Care Team Providers Care Portfolio Lead Name Role Phone Sammie Maharaj MD Primary Care Provider +[phone]- [phone] Loyda Glaser RN Unavailable [phone] Yasmin Ho MD Unavailable Encounter Details Date Type Department Care Team (Late st Contact Info) Description 05/16/2023 Orders Only [facility] [address] [place] [address] Emily Marcial LPN Social History Tobacco Use [...] 9:00 AM EDT Office Visit [facility] OPTOMETRY [address] [place] [address] Darshana Bashir, OD 230 [place], [place] [phone] 03/13/2025 3:30 PM EDT Office Visit [facility] MEDICINE 230 [place], [place] [phone] Sammie Maharaj MD 230 [place], [place] [phone] documented as of this encounter Visit Diagnoses Not on filedocumented in this encounter Care Teams Portfolio Lead Relationship Specialty Start Date End Date Sammie Maharaj MD 230 [place] [address] PCP - General Family Medicine 10/10/18 Loyda Glaser, ERVIN 230 [place] [address] Academic Advising Director Family Medicine 10/31/23 Yasmin Ho MD 55 [place] [address] Gastroenterology 08/29/24 Manuel Carpenter PA [facility] 55 [facility] [address] Neurology 08/29/24 Paola Tolentino, HEBERT [address] [address] Endocrinology 10/24/24 [facility] Psychology Psychology 12/19/24 documented as of this encounter
--- OUTSIDE RECORDS SUMMARY | 2025-02-14 07:26 | XMS_ITS | Encounter Summary ---
Demographics Address 17 [facility] [address] [place] [address] Home Phone Mobile Phone Preferred Language Dominican; Castilian Marital Status Single Episcopal Affiliation Unknown Race Unknown Ethnic Group Unknown Author Organization [facility] Address [address] [place] [address] Support Name Relationship Address Phone Orion Rubio Daughter [address] [facility] [address] [place] [address] Care Team Providers Care Biologics Specialist Name Role Phone Sammie Maharaj Primary Care Provider [phone]- [phone] Encounter Details Date Type Department Care Team (Late st Contact Info) Description 12/14/2023 Orders Only [facility] Interventional Radiology [address] [place] [address] Smith Manzo DO 55 [place] [address] Social History Tobacco Use Types Packs/Day Years [...] Description 03/22/2025 3:30 PM EDT Office Visit [facility] Building Diabetes Clinic [address] [place] [address] Artificial Flowers Dyer: Natasha Rubalcava MD 55 [place] [address] 04/09/2025 9:00 AM EDT Follow-Up [facility] Liver Transplant Services [address] [place] [address] Yasmin Ho MD [address] [place] [address] 07/17/2025 8:00 AM EDT Office Visit [facility] Diabetes Clinic [address] [place] [address] Artificial Flowers Dyer: Paola Vance NP [address] [place] [address] 08/06/2025 8:00 AM EDT Office Visit [facility] Neurology Clinic [address] [place] [address] Manuel Carpenter PA [address] [place] [address] documented as of this encounter Visit Diagnoses Not on filedocumented in this encounter Care Teams Biologics Specialist Relationship Specialty Start Date End Date Sammie Maharaj [address] [place] [address] PCP - General Family Medicine 05/15/18 documented as of this encounter
--- OUTSIDE RECORDS SUMMARY | 2025-02-14 07:26 | XMS_ITS | Encounter Summary ---
Author Organization [employer] Address 75 [facility] 7t [place] [address] Care Team Providers Care Chief Projectionist Name Role Phone Sammie Maharaj MD Primary Care Provider [phone]- [phone] Loyda Glaser RN Unavailable [phone] Yasmin Ho MD Unavailable [phone] Reason for Visit * Reason Onset Date Comments Appointment Request 10/20/2023 Encounter Details Date Type Department Care Team (Late st Contact Info) Description 10/20/2023 Telephone [facility] MEDICINE 230 [place] [address] Sammie Maharaj MD [address] [place], [place] [phone] Appointment Request Social History Tobacco Use Types [...] and reschedule appt for 11/03/2023 @ 9:30 loan underwriter did cancel per patients request documented in this encounter Plan of Treatment Upcoming Encounters Date Type Department Care Team (Late st Contact Info) Description 02/25/2025 9:00 AM EDT Office Visit [facility] OPTOMETRY [address] [place] [address] Mckay, Darshana, OD 230 [place] [address] 03/13/2025 3:30 PM EDT Office Visit [facility] MEDICINE 230 [place] [address] Sammie Maharaj MD 230 [place] [address] documented as of this encounter Visit Diagnoses Not on filedocumented in this encounter Additional Health Concerns Assessment Noted Time PHQ-9 Depression Total Score: 0 07/28/20 23 9:42 AM EDT documented as of this encounter Care Teams Chief Projectionist Relationship Specialty Start Date End Date Sammie Maharaj MD [address] [place] [address] PCP - General Family Medicine 10/10/18 Loyda Glaser, RN [address] [place] [address] Forestry Technical Officer Family Medicine 10/31/23 Yasmin Ho MD 55 [place], [place] [phone] Gastroenterology 08/29/24 Manuel Carpenter PA [facility] 55 [facility] [address] Neurology 08/29/24 Paola Tolentino COSTUME CUTTER [address] [address] Endocrinology 10/24/24 [facility] Psychology Psychology 12/19/24 documented as of this encounter
--- OUTSIDE RECORDS SUMMARY | 2025-02-14 07:26 | XMS_ITS | Encounter Summary ---
Author Organization [employer] Address [address] [facility] [address] 7t [place] [address] Care Team Providers Care Community Health Agent Name Role Phone [place], Sammie JOHNSON Primary Care Provider [phone]- [phone] Loyda Glaser RN Unavailable [phone] Yasmin Ho MD Unavailable [phone] Reason for Visit * Reason Comments Med Refill Encounter Details Date Type Department Care Team (Late st Contact Info) Description 11/18/2023 Refill [facility] [address] [place] [address] Tara Carlisle, DOMENICO Tinea unguium Social History [...] Description 02/25/2025 9:00 AM EDT Office Visit [facility] OPTOMETRY [address] [place] [address] Mckay, Darshana, OD 230 [place] [address] 03/13/2025 3:30 PM EDT Office Visit [facility] MEDICINE [address] [place] [address] Sammie Maharaj MD 230 [place] [address] documented as of this encounter Visit Diagnoses Diagnosis Tinea unguium Dermatophytosis of nail documented in this encounter Additional Health Concerns Assessment Noted Time PHQ-9 Depression Total Score: 0 07/28/20 23 9:42 AM EDT documented as of this encounter Care Teams Community Health Agent Relationship Specialty Start Date End Date Sammie Maharaj MD [address] [place] [address] PCP - General Family Medicine 10/10/18 Loyda Glaser RN [address] [place] [address] Hydraulic Press In Operator Family Medicine 10/31/23 Yasmin Ho MD [address] [place] [address] [phone] Gastroenterology 08/29/24 Manuel Carpenter PA [address] [phone] Neurology 08/29/24 Paola Tolentino NP [address] [address] Endocrinology 10/24/24 [facility] Psychology Psychology 12/19/24 documented as of this encounter
--- OUTSIDE RECORDS SUMMARY | 2025-02-14 07:26 | XMS_ITS | Encounter Summary ---
Demographics Address 17 [facility] [address] [place] [address] Home Phone Mobile Phone Preferred Language Macanese; Castilian Marital Status Single Confucianism Affiliation Unknown Race Unknown Ethnic Group Unknown Author Organization [facility] Address [address] [place] [address] Support Name Relationship Address Phone Orion Rubio Daughter [address] [facility] [address] [place] [address] Care Team Providers Care Continuous Process Tanner Rotary Drum Name Role Phone Sammie Maharaj Primary Care Provider [phone] Encounter Details Date Type Department Care Team (Late st Contact Info) Description 02/12/2025 Telephone [facility] Transplant Department [address] [place] [address] [phone] Katy Boateng RN Social History Tobacco Use [...] Telephone Encounter - Katy Boateng RN - 02/12/2025 9:09 AM EDT Aubrie called, returned call using wafer mounter #[id number]. She states that about two weeks ago she noticed her hair started faling out. She notices quite a bit on her pillow when she wakes in the morning but does not endorse that it is falling out in clumps at any point. She does not endorse any changes to medications. documented in this encounter Plan of Treatment Upcoming Encounters Date Type Department Care Team (Late st Contact Info) Description 03/22/2025 3:30 PM EDT Office Visit [facility] Diabetes Clinic [address] [place] [address] Pharmacy Associate: Natasha Rubalcava MD [address] [place] [address] 04/09/2025 9:00 AM EDT Follow-Up [facility] Liver Transplant Services [address] [place] [address] Yasmin Ho MD [address] [place] [address] 07/17/2025 8:00 AM EDT Office Visit [facility] Diabetes Clinic [address] [place] [address] Pharmacy Associate: Paola Vance NP [address] [place] [address] 08/06/2025 8:00 AM EDT Office Visit [facility] Neurology Clinic [address] [place] [address] Manuel Carpenter PA [address] [place] [address] documented as of this encounter Visit Diagnoses Not on filedocumented in this encounter Care Teams Continuous Process Tanner Rotary Drum Relationship Specialty Start Date End Date [place], Sammie Beckett [address] [place] [address] PCP - General Family Medicine 05/15/18 documented as of this encounter
--- OUTSIDE RECORDS SUMMARY | 2025-02-14 07:26 | XMS_ITS | Encounter Summary ---
Author Organization [employer] Address 75 [facility] 7t [place] [address] Care Team Providers Care Service Station Helper Name Role Phone Sammie Maharaj MD Primary Care Provider [phone] Loyda Glaser RN Unavailable [phone] Yasmin Ho MD Unavailable Reason for Visit * Reason Onset Date Comments No Show 04/21/2023 Encounter Details Date Type Department Care Team (Late st Contact Info) Description 04/21/2023 Telephone [facility] MEDICINE 230 [place] [address] Hansa Chung RN 230 [place] [address] No Show Social History Tobacco Use Types [...] and declined as she is traveling to [facility] tomorrow morning and whill not be [...] 04/21/2023 12:30 PM EDT Call received from [facility], regarding critical lab result. Pt glucose [...] Visit [facility] OPTOMETRY [address] [place] [address] Darshana Bashir, OD 230 [place] [address] 03/13/2025 3:30 PM EDT Office Visit [facility] MEDICINE 230 [place] [address] Sammie Maharaj MD 230 [place] [address] documented as of this encounter Visit Diagnoses Not on filedocumented in this encounter Care Teams Service Station Helper Relationship Specialty Start Date End Date Sammie Maharaj MD 230 [place] [address] PCP - General Family Medicine 10/10/18 Loyda Glaser, RN 230 [place] [address] Freight Flagman Family Medicine 10/31/23 Yasmin Ho MD 55 [place] [address] Gastroenterology 08/29/24 Manuel Carpenter PA [facility] 55 [facility] [address] Neurology 08/29/24 Paola Tolentino, WAREHOUSE REPRESENTATIVE [address] [address] Endocrinology 10/24/24 [facility] Psychology Psychology 12/19/24 documented as of this encounter
--- OUTSIDE RECORDS SUMMARY | 2025-02-14 07:26 | XMS_ITS | Encounter Summary ---
Author Organization [employer] Address [address] [facility] [address] 7t [place] [address] Care Team Providers Care Linux System Admin Name Role Phone Sammie Maharaj MD Primary Care Provider [phone]- [phone] Loyda Glaser RN Unavailable [phone] Yasmin Ho MD Unavailable [phone] Reason for Visit * Reason Comments Med Refill Encounter Details Date Type Department Care Team (Late st Contact Info) Description 10/24/2024 Refill [facility] 230 [place] [address] Sammie Maharaj MD 230 [place], [place] [phone] Microcytic anemia Social History Tobacco Use Types [...] EDT Office Visit [facility] OPTOMETRY 267 [place] [address] Mckay, Darshana, OD [address] [place] [address] 03/13/2025 3:30 PM EDT Office Visit [facility] MEDICINE 230 [place] [address] Sammie Maharaj MD [address] [place] [address] documented as of this encounter Visit Diagnoses Diagnosis Microcytic anemia Unspecified iron deficiency anemia documented in this encounter Additional Health Concerns Assessment Noted Time PHQ-9 Depression Total Score: 0 10/24/19 25 9:33 AM EST documented as of this encounter Care Teams Linux System Admin Relationship Specialty Start Date End Date Sammie Maharaj MD [address] [place] [address] PCP - General Family Medicine 10/10/18 Loyda Glaser RN [address] [place] [address] Experimental Psychologist Family Medicine 10/31/23 Yasmin Ho MD [address] [place] [address] Gastroenterology 08/29/24 Manuel Carpenter PA [address] [address] Neurology 08/29/24 Paola Tolentino NP [address] [address] Endocrinology 10/24/24 [facility] Psychology Psychology 12/19/24 documented as of this encounter
--- OUTSIDE RECORDS SUMMARY | 2025-02-14 07:26 | XMS_ITS | Encounter Summary ---
Author Organization [employer] Address [address] [facility] [address] 7t [place] [address] Care Team Providers Care Patient Navigator Name Role Phone Sammie Maharaj MD Primary Care Provider [phone]- [phone] Loyda Glaser RN Unavailable [phone] Yasmin Ho MD Unavailable [phone] Reason for Visit * Reason Comments Med Refill Encounter Details Date Type Department Care Team (Late st Contact Info) Description 12/25/2024 Refill [facility]ALK[facility]IN C[facility] 230 [place], [place] [phone] Sammie Maharaj MD 230 [place], [place] [phone] Tinea unguium Social History Tobacco Use Types [...] 9:00 AM EDT Office Visit [facility] OPTOMETRY 267 [place] [address] Mckay, Darshana, OD 230 [place] [address] 03/13/2025 3:30 PM EDT Office Visit [facility] MEDICINE 230 [place] [address] Sammie Maharaj MD [address] [place] [address] documented as of this encounter Visit Diagnoses Diagnosis Tinea unguium Dermatophytosis of nail documented in this encounter Additional Health Concerns Assessment Noted Time PHQ-9 Depression Total Score: 0 10/24/19 25 9:33 AM EST documented as of this encounter Care Teams Patient Navigator Relationship Specialty Start Date End Date Sammie Maharaj MD [address] [place] [address] PCP - General Family Medicine 10/10/18 Loyda Glaser, RN 230 [place] [address] Transportation Planning Technician Family Medicine 10/31/23 Yasmin Ho MD [address] [place] [address] Gastroenterology 08/29/24 Manuel Carpenter PA [facility] 55 [facility] [address] Neurology 08/29/24 Paola Tolentino COIL CONNECTOR [address] [address] Endocrinology 10/24/24 [email or web address] Psychology Psychology 12/19/24 documented as of this encounter
--- OUTSIDE RECORDS SUMMARY | 2025-02-14 07:26 | XMS_ITS | Encounter Summary ---
Author Organization [employer] Address 75 [facility] 7t [place] [address] Care Team Providers Care Sexual Assault Counselor Name Role Phone Sammie Maharaj MD Primary Care Provider [phone]- [phone] Loyda Glaser RN Unavailable [phone] Yasmin Ho MD Unavailable Reason for Visit * Reason Onset Date Comments Nurse Triage 03/22/2023 Encounter Details Date Type Department Care Team (Late st Contact Info) Description 03/22/2023 Telephone [facility] MEDICINE 230 [place] [address] Sammie Maharaj MD 230 [place], [place] [phone] Nurse Triage Social History Tobacco Use Types [...] 03/22/2023 2:01 PM EDT Triage call with [employer] Job Cost Estimator ID [id number] Pt didn't answer left message to call [facility] triage line at [phone]. Triage call with [employer] Job Cost Estimator ID [id number] Pt answered, Pt wasn't able to say [...] Description 02/25/2025 9:00 AM EDT Office Visit [facility] OPTOMETRY [address] [place] [address] Mckay, Darshana, OD 230 [place] [address] 03/13/2025 3:30 PM EDT Office Visit [facility] MEDICINE 230 [place] [address] Sammie Maharaj MD 230 [place] [address] documented as of this encounter Visit Diagnoses Not on filedocumented in this encounter Care Teams Sexual Assault Counselor Relationship Specialty Start Date End Date Sammie Maharaj MD [address] [place] [address] PCP - General Family Medicine 10/10/18 Loyda Glaser, ERVIN [address] [place] [address] Top Executive Family Medicine 10/31/23 Yasmin Ho MD [address] [place] [address] Gastroenterology 08/29/24 Manuel Carpenter PA [address] [address] Neurology 08/29/24 Paola Tolentino NP [address] [address] Endocrinology 10/24/24 [facility] Psychology Psychology 12/19/24 documented as of this encounter
--- OUTSIDE RECORDS SUMMARY | 2025-02-14 07:26 | XMS_ITS | Encounter Summary ---
Demographics Address [address] [facility] [address] [place] [address] Home Phone Mobile Phone Preferred Language Kenyan; Castilian Marital Status Single Scientology Affiliation Unknown Race Unknown Ethnic Group Unknown Author Organization [facility] Address [address] [place] [address] Support Name Relationship Address Phone Orion Rubio Daughter [address] [place] [address] Care Team Providers Care Factory Superintendent Name Role Phone Sammie Maharaj Primary Care Provider +1- [phone] Encounter Details Date Type Department Care Team (Late st Contact Info) Description 02/13/2025 Orders Only [facility] Transplant Department [address] [place] [address] 50868 Katy Boateng RN Cryptogenic cirrhosis (HCC) (Primary Dx) Social History Tobacco Use [...] as of this encounter Progress Notes * Katy Boateng RN - 02/13/2025 8:56 AM EDT Using battalion chief #[id number], called Aubrie and let her know that I sent labs to [facility] and Dr Ho is suggesting starting a multivitamin and biotin that she can get over the counter. Also suggested she mention to her PCP. Pt will get labs tomorow documented in this encounter Plan of Treatment Upcoming Encounters Date Type Department Care Team (Late st Contact Info) Description 03/22/2025 3:30 PM EDT Office Visit [facility] [address] [place] [address] 94199 Acting Professor: Natasha Rubalcava MD [address] [place] [address] 04/09/2025 9:00 AM EDT Follow-Up [facility] Liver Transplant Services [address] [place] [address] 49573 Yasmin Ho MD [address] [place] [address] 25[address] 07/17/2025 8:00 AM EDT Office Visit [facility] [address] [place] [address] 90678 Acting Professor: Paola Vance NP [address] [place] [address] 29[address] 08/06/2025 8:00 AM EDT Office Visit [facility] [address] [place] [address] 08718 Manuel Carpenter PA [address] [place] [address] 99241 Scheduled Orders Name Type Priority Associated Diagnoses Orde r Schedule Vitamin B1 (Thiamine), Plasma Lab Routine Cryptogenic cirrhosis (HCC) Expected: 02/13/2025, Expires: 02/13/2026 Vitamin B12 & Folate Lab Routine Cryptogenic cirrhosis (HCC) Expected: 02/13/2025, Expires: 02/13/2026 Vitamin A (Retinol) Lab Routine Cryptogenic cirrhosis (HCC) Expected: 02/13/2025, Expires: 02/13/2026 Vitamin D, 25-Hydroxy, Total, Immunoassay Lab Routine Cryptogenic cirrhosis (HCC) Expected: 02/13/2025, Expires: 02/13/2026 Vitamin E (Tocopherol) Lab Routine Cryptogenic cirrhosis (HCC) Expected: 02/13/2025, Expires: 02/13/2026 Protime-INR Lab Routine Cryptogenic cirrhosis (HCC) Expected: 02/13/2025, Expires: 02/13/2026 Hepatic Function Panel Lab Routine Cryptogenic cirrhosis (HCC) Expected: 02/13/2025, Expires: 02/13/2026 Basic Metabolic Panel Lab Routine Cryptogenic cirrhosis (HCC) Expected: 02/13/2025, Expires: 02/13/2026 CBC Lab Routine Cryptogenic cirrhosis (HCC) Expected: 02/13/2025, Expires: 02/13/2026 Vitamin B12 Lab Routine Cryptogenic cirrhosis (HCC) Ordered: 02/13/2025 Folate Lab Routine Cryptogenic cirrhosis (HCC) Ordered: 02/13/2025 documented as of this encounter Visit Diagnoses Diagnosis Cryptogenic cirrhosis (HCC)- Primary Cirrhosis of liver without mention of alcohol documented in this encounter Care Teams Factory Superintendent Relationship Specialty Start Date End Date Sammie Maharaj: [phone] [address] [place] [address] PCP - General Family Medicine 05/15/18 documented as of this encounter
--- OUTSIDE RECORDS SUMMARY | 2025-02-14 07:26 | XMS_ITS | Encounter Summary ---
Demographics Address [address] [facility] [address] [place] [address] Home Phone Mobile Phone Preferred Language Citizen Of [place]; Castilian Marital Status Single Baptist Affiliation Unknown Race Unknown Ethnic Group Unknown Author Organization [facility] Address [address] [place] [address] Support Name Relationship Address Phone Orion Rubio Daughter [address] [facility] [address] [place] [address] Care Team Providers Care Machine Cloth Trimmer Name Role Phone Sammie Maharaj Primary Care Provider +1- [phone] Encounter Details Date Type Department Care Team (Late st Contact Info) Description 01/09/2025 Results Follow-Up [facility] Liver Transplant Services [address] [place] [address] 10858 Katy Boateng RN Social History Tobacco Use [...] Description 03/22/2025 3:30 PM EDT Office Visit [facility] Diabetes Clinic [address] [place] [address] 9[address] Internet Marketing Analyst: Natasha Rubalcava MD [address] [place] [address] 04/09/2025 9:00 AM EDT Follow-Up [facility] Liver Transplant Services [address] [place] [address]803 Yasmin Ho MD [address] [place] [address] 07/17/2025 8:00 AM EDT Office Visit [facility] Diabetes Clinic [address] [place] [address] 43969 Internet Marketing Analyst: Paola Vance NP [address] [place] [address] [place] [address] 08/06/2025 8:00 AM EDT Office Visit [facility] [address] [place] [address] 50966 Manuel Carpenter PA [address] [place] [address] 8[address] documented as of this encounter Visit Diagnoses Not on filedocumented in this encounter Care Teams Machine Cloth Trimmer Relationship Specialty Start Date End Date Sammie Maharaj [address] [place] [address] PCP - General Family Medicine 05/15/18 documented as of this encounter
--- OUTSIDE RECORDS SUMMARY | 2025-02-14 07:26 | XMS_ITS | Encounter Summary ---
Demographics Address [address] [facility] [address] [place] [address] Home Phone Mobile Phone Preferred Language Afghan; Castilian Marital Status Single Episcopal Affiliation Unknown Race Unknown Ethnic Group Unknown Author Organization [facility] Address [address] [place] [address] Support Name Relationship Address Phone Orion Rubio Daughter [address] [facility] [address] [place] [address] Care Team Providers Care Textile Colorist Formulator Name Role Phone Sammie Maharaj Primary Care Provider +1- [phone] Encounter Details Date Type Department Care Team (Late st Contact Info) Description 01/10/2025 Results Follow-Up [facility] Liver Transplant Services [address] [place] [address] 760[address] Katy Boateng RN Social History Tobacco Use [...] [facility] Diabetes Clinic [address] [place] [address] 60084 Banquet Server: Natasha Rubalcava MD [address] [place] [address] 04/09/2025 9:00 AM EDT Follow-Up [facility] Liver Transplant Services [address] [place] [address] 78270 Yasmin Ho MD [address] [place] [address] 07/17/2025 8:00 AM EDT Office Visit [facility] Diabetes Clinic [address] [place] [address] 6[address] Banquet Server: Paola Vance NP [address] [place] [address] [place] [address] 08/06/2025 8:00 AM EDT Office Visit [facility] Neurology Clinic [address] [place] [address] Manuel Carpenter PA [address] [place] [address] 35204 documented as of this encounter Visit Diagnoses Not on filedocumented in this encounter Care Teams Textile Colorist Formulator Relationship Specialty Start Date End Date Sammie Maharaj [address] [place] [address] PCP - General Family Medicine 05/15/18 documented as of this encounter
--- OUTSIDE RECORDS SUMMARY | 2025-02-14 07:26 | XMS_ITS | Encounter Summary ---
Author Organization [employer] Address [address] [facility] [address] 7[address] [place] [address] Care Team Providers Care Customer Strategy Manager Name Role Phone Sammie Maharaj MD Primary Care Provider +1- [phone] Loyda Glaser RN Unavailable [phone] Yasmin Ho MD Unavailable [phone] Reason for Visit * Reason Comments Med Refill Encounter Details Date Type Department Care Team (Late st Contact Info) Description 10/25/2023 Refill [facility] WALK-IN CENTER [address] [place], [place] [phone] Sammie Maharaj MD [address] [place], [place] [phone] Microcytic anemia Social History Tobacco Use Types [...] 02/25/2025 9:00 AM EDT Office Visit [facility] OPTOMETRY [address] [place] [address] Mckay, Darshana, OD [address] [place] [address] 03/13/2025 3:30 PM EDT Office Visit [facility] MEDICINE [address] [place] [address] Sammie Maharaj MD [address] [place] [address] documented as of this encounter Visit Diagnoses Diagnosis Microcytic anemia Unspecified iron deficiency anemia documented in this encounter Additional Health Concerns Assessment Noted Time PHQ-9 Depression Total Score: 0 07/28/20 23 9:42 AM EDT documented as of this encounter Care Teams Customer Strategy Manager Relationship Specialty Start Date End Date Sammie Maharaj MD [address] [place] [address] PCP - General Family Medicine 10/10/18 Loyda Glaser, ERVIN [address] [place] [address] 72392 Cash Register Repairer Family Medicine 10/31/23 Yasmin Ho MD 55 [place] [address] Gastroenterology 08/29/24 Manuel Carpenter PA [facility] [address] Neurology 08/29/24 Paola Tolentino, PAD HAND [address] [address] Endocrinology 10/24/24 [facility] Psychology Psychology 12/19/24 documented as of this encounter
--- OUTSIDE RECORDS SUMMARY | 2025-02-14 07:26 | XMS_ITS | Encounter Summary ---
Author Organization [employer] Address [address] [place] [address] 7t [place] [address] Care Team Providers Care Masonry Installer Name Role Phone Sammie Maharaj MD Primary Care Provider +1- [phone] Loyda Glaser RN Unavailable [phone] Yasmin Ho MD Unavailable Encounter Details Date Type Department Care Team (Late st Contact Info) Description 12/01/2022 Orders Only [facility] MEDICINE [address] [place] [address] Ericka Osei MD [address] [place] [address] Visual problems (Primary Dx) Social History Tobacco [...] EDT Office Visit [facility] OPTOMETRY [address] [place], [place] [phone] Darshana Bashir, OD [address] [place] [address] 03/13/2025 3:30 PM EDT Office Visit [facility] MEDICINE 230 [place] [address] Sammie Maharaj MD [address] [place] [address] documented as of this encounter Visit Diagnoses Diagnosis Visual problems- Primary documented in this encounter Care Teams Masonry Installer Relationship Specialty Start Date End Date Sammie Maharaj MD [address] [place] [address] PCP - General Family Medicine 10/10/18 Loyda Glaser, RN [address] [place] [address] 18773 Charger Operator Helper Family Medicine 10/31/23 Yasmin Ho MD [address] [place] [address] Gastroenterology 08/29/24 Manuel Carpenter PA [facility] [address] [facility] [address] Neurology 08/29/24 Paola Tolentino NP [address] [address] Endocrinology 10/24/24 [facility] Psychology Psychology 12/19/24 documented as of this encounter
--- OUTSIDE RECORDS SUMMARY | 2025-02-14 07:26 | XMS_ITS | Encounter Summary ---
Demographics Address [address] [facility] [address] [place] [address] Home Phone Mobile Phone Preferred Language Estonian; Castilian Marital Status Single Pentecostalism Affiliation Unknown Race Unknown Ethnic Group Unknown Author Organization [facility] Address [address] [place] [address] Support Name Relationship Address Phone Orion Rubio Daughter [address] [facility] [address] [place] [address] Care Team Providers Care Fabric Coating Supervisor Name Role Phone Sammie Maharaj Primary Care Provider [phone]- [phone] Encounter Details Date Type Department Care Team (Late st Contact Info) Description 01/29/2025 Results Follow-Up [facility] Liver Transplant Services [address] [place] [address] Denae Johnson RN Social History Tobacco Use Types Packs/Day [...] as of this encounter Miscellaneous Notes * Result Encounter Note - Denae Johnson RN - 01/29/2025 10:25 AM EDT Mel[facility] 21 documented in this encounter Plan of Treatment Upcoming Encounters Date Type Department Care Team (Late st Contact Info) Description 03/22/2025 3:30 PM EDT Office Visit [facility] Building Diabetes Clinic [address] [place] [address] Canine Deputy: KiahNatasha Peace MD 55 [place] [address] 04/09/2025 9:00 AM EDT Follow-Up [facility] Liver Transplant Services [address] [place] [address] Yasmin Ho MD [address] [place] [address] 07/17/2025 8:00 AM EDT Office Visit [facility] Diabetes Clinic [address] [place] [address] Canine Deputy: Paola Vance NP [address] [place] [address] 08/06/2025 8:00 AM EDT Office Visit [facility] Neurology Clinic [address] [place] [address] Manuel Carpenter PA [address] [place] [address] 15278 documented as of this encounter Visit Diagnoses Not on filedocumented in this encounter Care Teams Fabric Coating Supervisor Relationship Specialty Start Date End Date [place], Sammie Beckett [address] [place] [address] 90370 PCP - General Family Medicine 05/15/18 documented as of this encounter
--- OUTSIDE RECORDS SUMMARY | 2025-02-14 07:26 | XMS_ITS | Encounter Summary ---
Demographics Address [address] [facility] [address] [place] [address] Home Phone Mobile Phone Preferred Language Hong Konger; Castilian Marital Status Single Faith Affiliation Unknown Race Unknown Ethnic Group Unknown Author Organization [facility] Address [address] [place] [address] Support Name Relationship Address Phone Orion Rubio Daughter [address] [facility] [address] [place] [address] Care Team Providers Care Order Fulfillment Specialist Name Role Phone Sammie Maharaj Primary Care Provider [phone]- [phone] Encounter Details Date Type Department Care Team (Late st Contact Info) Description 11/03/2023 Orders Only [facility] Interventional Radiology [address] [place] [address] Duncan Ragland MD [address] [place] [address]13 Social History Tobacco Use Types Packs/Day Years [...] Description 03/22/2025 3:30 PM EDT Office Visit [facility] Building Diabetes Clinic [address] [place] [address]47 Bandmill Operator: Natasha Rubalcava MD [address] [place] [address] 04/09/2025 9:00 AM EDT Follow-Up [facility] Liver Transplant Services [address] [place] [address] Yasmin Ho MD 55 [place] [address] 07/17/2025 8:00 AM EDT Office Visit [facility] Diabetes Clinic [address] [place] [address] Bandmill Operator: Paola Vance FARMWORKER [employer] [address] [place] [address] 08/06/2025 8:00 AM EDT Office Visit [facility] Neurology Clinic [address] [place] [address] Manuel Carpenter PA [address] [place] [address] documented as of this encounter Visit Diagnoses Not on filedocumented in this encounter Care Teams Order Fulfillment Specialist Relationship Specialty Start Date End Date Sammie Maharaj [address] [place] [address] 20170 PCP - General Family Medicine 05/15/18 documented as of this encounter
--- OUTSIDE RECORDS SUMMARY | 2025-02-14 07:26 | XMS_ITS | Encounter Summary ---
Demographics Address [address] [facility] [address] [place] [address] Home Phone Mobile Phone Preferred Language Malawian; Castilian Marital Status Single Temple Affiliation Unknown Race Unknown Ethnic Group Unknown Author Organization [facility] Address [address] [place] [address] Support Name Relationship Address Phone Orion Rubio Daughter [address] [facility] [address] [place] [address] Care Team Providers Care Triple Drum Operator Name Role Phone Nicko, Sammie Beckett Primary Care Provider [phone]- [phone] Reason for Visit * Reason Comments Med Refill Encounter Details Date Type Department Care Team (Late st Contact Info) Description 02/14/2025 Refill [facility] Transplant Services [address] [place] [address] Yasmin Ho MD [address] [place] [address] Social History Tobacco Use Types Packs/Day Years [...] Description 03/22/2025 3:30 PM EDT Office Visit [facility] Diabetes Clinic [address] [place] [address] Outsole Rounder: Natasha Rubalcava MD [address] [place] [address] 04/09/2025 9:00 AM EDT Follow-Up [facility] Transplant Services [address] [place] [address] Yasmin Ho MD 55 [place] [address] 07/17/2025 8:00 AM EDT Office Visit [facility] Diabetes Clinic [address] [place] [address] Outsole Rounder: Paola Vance NP [address] [place] [address] 08/06/2025 8:00 AM EDT Office Visit [facility] Neurology Clinic [address] [place] [address] Manuel Carpenter PA [address] [place] [address] documented as of this encounter Visit Diagnoses Not on filedocumented in this encounter Care Teams Triple Drum Operator Relationship Specialty Start Date End Date Sammie Maharaj [address] [place] [address] PCP - General Family Medicine 05/15/18 documented as of this encounter
--- OUTSIDE RECORDS SUMMARY | 2025-02-14 07:26 | XMS_ITS | Encounter Summary ---
Author Organization [employer] Address [address] [facility] 7t [place] [address] Care Team Providers Care Internet Marketing Executive Name Role Phone Sammie Maharaj MD Primary Care Provider +[phone]- [phone] Loyda Glaser RN Unavailable [phone] Yasmin Ho MD Unavailable Reason for Visit * Reason Onset Date Comments Referral 12/01/2022 Encounter Details Date Type Department Care Team (Late st Contact Info) Description 12/01/2022 Telephone [facility]IC[facility] [address] [place] [address] Sammie Maharaj MD 230 [place], [place] [phone] Referral Social History Tobacco Use Types Packs/Day [...] [facility] Please contact pt at [phone] or Becca [phone] documented in this encounter Plan of Treatment Upcoming Encounters Date Type Department Care Team (Late st Contact Info) Description 02/25/2025 9:00 AM EDT Office Visit [facility] OPTOMETRY [address] [place] [address] MckayDarshana coppola, OD 230 [place] [address] 03/13/2025 3:30 PM EDT Office Visit [facility] 230 [place] [address] Sammie Maharaj MD [address] [place] [address] documented as of this encounter Visit Diagnoses Not on filedocumented in this encounter Care Teams Internet Marketing Executive Relationship Specialty Start Date End Date Sammie Maharaj MD [address] [place] [address] PCP - General Family Medicine 10/10/18 Loyda Glaser, ERVIN [address] [place] [address] Wire Coating Machine Operator Family Medicine 10/31/23 Yasmin Ho MD [address] [place] [address] Gastroenterology 08/29/24 Manuel Carpenter PA [address] [address] Neurology 08/29/24 Paola Tolentino NP [address] [address] Endocrinology 10/24/24 [facility] Psychology Psychology 12/19/24 documented as of this encounter
--- OUTSIDE RECORDS SUMMARY | 2025-02-14 07:26 | XMS_ITS | Clinical Summary ---
Author Organization [employer] Address [address] [place] [address] 7[address] [place] [address] Care Team Providers Care [place] [place] Consultant Name Role Phone Sammie Maharaj MD Primary Care Provider [phone] Loyda Glaser RN Unavailable [phone] Yasmin Ho MD Unavailable [phone] Allergies Active Allergy Reactions Criticality Noted Date Comments Acetaminophen 09/09/2014 Other reaction(s): Rash Latex Rash Low 06/29/2023 Medications zonisamide (Zonegran) 100 MG capsuleIndicat ions:Complex partial seizure (CMS/HCC) Take 100 mg by mouth Once per day. Two tab po qhs Active Continuous Glucose Sensor (FreeStyle Charlotte 3 Plus Sensor) miscIndication s:Type 2 diabetes mellitus with hyperglycemia, with long-term current use of insulin (CMS/HCC) [facility] Active insulin glargine (Lantus) 100 UNIT/ML injectionIndic ations:Type 2 diabetes mellitus with hyperglycemia, with long-term current use of insulin (CMS/HCC) Inject under the skin at bedtime. Injecting 14 units daily as directed by ball mill operator Active ursodiol (Actigall) 250 MG tabletIndicati ons:End stage liver disease (CMS/HCC) Take 250 mg by mouth [address] Marilee [facility] Active beta carotene (vitamin A) 3 MG (41492 UT) capsuleIndicat ions:End stage liver disease (CMS/HCC) Take 10,000 Units by mouth Once per day. Per SHEILA Perez at [facility] liver CLinic Active insulin pen needle (BD Pen Needle Sandy 2nd Gen) 32G x 4 mm miscIndication s:End stage liver disease (CMS/HCC) Inject under the skin if needed. Use as instructed Active Diclofenac Sodium 1 % gel Apply 1 inch topically if needed in the morning and at bedtime (pain). 60 g 02/05/20 25 025 Active Active Problems Patient Care Coordination No te Formatting of this note migh t be different from the original. [facility] provider line [phone], called 09/29/23 Breanna Burleson [phone]. cell [phone] CLAM BED LABORER services via BERENICE, CLAM BED LABORER Laxmi Mas Problem Noted Date Diagnosed Date Trochanteric bursitis of right hip 02/04/2025 Assessment & Plan (02/04/2025 11:39 AM EDT): Advised to apply heat to affected area and do stretching exercises, apply with hip exercises provided today. Use diclofenac gel as needed, may need steroid injection if pain is not controlled Advised to come to acupuncture and referred to PT Swelling of right ear 12/19/2024 Overview (12/19/2024): [facility] (12/08/2024 - 12/10/2024) Patient presented for evaluation [...] symptoms resolved. Pt called her specialist in [place]. She is doing much better. She showed me a photo of her year that was severely inflamed with vesicles and erythremia. This has resoled and no longer on prednisone. She requests letter to keep her dog at home due to her anxiety. Assessment & Plan (12/19/2024 1:01 PM EDT): [facility] (12/08/2024 - 12/10/2024) Patient presented for evaluation [...] symptoms resolved. Pt called her specialist in [place]. She is doing much better. She showed [...] if needed. I spoke with Liz at [facility] liver transplant clinic, explained the situation and ask them to run the pictures and case by adjunct faculty instructor in case this is not related to [...] (06/01/2024): CT abd pelvis ordered by [facility] liver clinic and dated 01/28/24 IMPRESSION: [...] appear significantly changed from 2021, possibly reactive. [facility] not from 02/24/24 Telephone Encounter - Katy Boateng RN 10:24 AM LVM for patient using desolderer, Arnrob [id number], about results of MRI and scheduling of [...] EST): CT abd pelvis ordered by [facility] liver clinic and dated 01/28/24 IMPRESSION: [...] appear significantly changed from 2021, possibly reactive. [facility] not from 02/24/24 Telephone Encounter - Katy Boateng RN 10:24 AM LVM for patient using desolderer, Supernovarob [id number], about results of MRI and scheduling of [...] EDT): CT abd pelvis ordered by [facility] liver clinic and dated 01/28/24 IMPRESSION: [...] appear significantly changed from 2021, possibly reactive. 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 I called [facility] provider line [phone], 09/29/23 and spoke to Breanna Burleson [phone]. He reported extensive hx of working it pt and she was on the waiting list for starvros. Her CLAM BED LABORER will be Laxmi Mas her friend. -She has been approved for CLAM BED LABORER hours but have not started yet as of 01/18/2024 Assessment & Plan (01/18/2024 9:17 AM EDT): -she has fired several residential sales executive in the past. I called [facility] provider line [phone], 09/29/23 and spoke to Breanna Burleson [phone]. He reported extensive hx of working it pt and she was on the waiting list for starvros. Her CLAM BED LABORER will be Laxmi Mas her friend. -She has been approved for CLAM BED LABORER hours but have not started yet as of 01/18/2024 Pain in hand and fingers 09/29/2023 Overview (01/18/2024): -refer to occupational therapy 01/18/2024 Assessment & Plan (09/29/2023 11:55 AM EST): No etiology on exam. Pt high risk for dyupetryns. Recommend warm wraps and rest. Other specified health status 07/21/2023 Overview (12/19/2024): -next physical exam due after 07/09/25 -eye care facilitated by [facility] -dental home is [facility] -health care proxy paperwork filed 07/09/24 Assessment & Plan (12/19/2024 1:03 PM EDT): -next physical exam due after 07/09/25 -eye care facilitated by [facility] -dental home is [facility] -health care proxy paperwork filed 07/09/24 Assessment & Plan (10/24/2024 9:48 AM EST): -next physical exam due after 07/09/25 -eye care facilitated by [facility] -dental home is [facility] -health care proxy paperwork given 10/20/23. Filed 07/09/24 Assessment & Plan (07/09/2024 10:17 AM EDT): -next physical exam due after 07/09/25 -eye care facilitated by [facility] -dental home is [facility] -health care proxy paperwork given 10/20/23. Filed 07/09/24 Assessment & Plan (01/18/2024 9:16 AM EDT): -next physical exam due after 07/28/2024 -eye care facilitated by [facility] -dental home is none -health care proxy paperwork given 10/20/23 Assessment & Plan (10/20/2023 9:33 AM EST): -next physical exam due after 07/28/2024 -eye care facilitated by [facility] referral placed 09/29/23 -dental home is none -health care proxy paperwork given 10/20/23 Assessment & Plan (09/29/2023 11:46 AM EST): -next physical exam due after 07/28/2024 -eye care facilitated by [facility] referral placed 09/29/23 -dental home is none Assessment & Plan (07/28/2023 10:05 AM EDT): -next physical exam due after 07/28/2024 -eye care facilitated by [facility] -dental home is none Type 2 diabetes mellitus 11/19/2021 Overview (12/19/2024): -Followed by [facility] End[facility] Diabetes are controlled. -CGM training done [...] 18-14 by endo 04/2024 Seen by [facility] endocrinology 04/18/24 Hemoglobin A1c is falsely [...] approval for her to upgrade to the Exilesyle charlotte 3 CGM. Assessment & Plan (12/19/2024 1:03 PM EDT): -Followed by [facility] End[facility] Diabetes are controlled. -CGM training done [...] 18-14 by endo 04/2024 Seen by [facility] endocrinology 04/18/24 Hemoglobin A1c is falsely [...] approval for her to upgrade to the Honey charlotte 3 CGM. Assessment & Plan (10/24/2024 [...] 18-14 by endo 04/2024 Seen by [facility] endocrinology 04/18/24 Hemoglobin A1c is falsely [...] 18-14 by endo 04/2024 Seen by [facility] endocrinology 04/18/24 Hemoglobin A1c is falsely [...] freestyle charlotte 3 CGM. Assessment & Plan (01/18/2024 [...] was negative. She is followed by [facility]. -liver biopsy 2019 mild, [...] services with Dr. Yasmin Ho MD of [facility] 02/2024, [...] 202, possibly reactive. -liver biopsy done at [facility] 05/01/24, results pending -liver biopsy results [...] Saw Transplant Hepatology and GI specialist at [facility] on 09/11/24. Per note, she remains active on LT waitlist with an updated MELD 3.0 of 19 based on blood work in April 2024. Etiology of her liver disease and progressive jaundice remains unclear despite prior MRI/MRCP and interval liver biopsy in May 2024 which was non-specific with non-specific findings which we reviewed with patient and [id number] again today. We recommended continuation of empiric [...] labs show elevated LFTs. Labs sent to adjunct faculty instructor. 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 Recommending redraw next week with PT and INR to update meld. Lab order was faxed. -reordered labs 12/05/24, stable and [facility] aware -CT 01/08/25 with Liver Transplant MD [...] was negative. She is followed by [facility]. -liver biopsy 2019 mild, [...] services with Dr. Yasmin Ho MD of [facility] 02/2024, [...] possibly reactive. -liver biopsy done at [facility] 05/01/24, results pending -liver biopsy results [...] Saw Transplant Hepatology and GI specialist at [facility] on 09/11/24. Per note, she remains active on LT waitlist with an updated MELD 3.0 of 19 based on blood work in April 2024. Etiology of her liver disease and progressive jaundice remains unclear despite prior MRI/MRCP and interval liver biopsy in May 2024 which was non-specific with non-specific findings which we reviewed with patient and [id number] again today. We recommended continuation of empiric [...] labs show elevated LFTs. Labs sent to adjunct faculty instructor. 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 Recommending redraw next week with PT and INR to update meld. Lab order was faxed. -reordered labs 12/05/24, stable and [facility] aware Assessment & Plan (12/05/2024 2:36 [...] was negative. She is followed by [facility] Liver [facility]. -liver biopsy 2019 mild, [...] services with Dr. Yasmin Ho MD of [facility] 02/2024, [...] possibly reactive. -liver biopsy done at [facility] 05/01/24, results pending -liver biopsy results [...] Saw Transplant Hepatology and GI specialist at [facility] on 09/11/24. Per note, she remains active on LT waitlist with an updated MELD 3.0 of 19 based on blood work in April 2024. Etiology of her liver disease and progressive jaundice remains unclear despite prior MRI/MRCP and interval liver biopsy in May 2024 which was non-specific with non-specific findings which we reviewed with patient and [id number] again today. We recommended continuation of empiric [...] labs show elevated LFTs. Labs sent to adjunct faculty instructor. Due to increased bilirubin, labs were sent to adjunct faculty instructor who reports chronically elevated due to chol [...] was negative. She is followed by [facility]. -liver biopsy 2019 mild, [...] services with Dr. Yasmin Ho MD of [facility] 02/2024, [...] 202, possibly reactive. -liver biopsy done at [facility] 05/01/24, results pending -liver biopsy results [...] Saw Transplant Hepatology and GI specialist at [facility] on 09/11/24. Per note, she remains active on LT waitlist with an updated MELD 3.0 of 19 based on blood work in April 2024. Etiology of her liver disease and progressive jaundice remains unclear despite prior MRI/MRCP and interval liver biopsy in May 2024 which was non-specific with non-specific findings which we reviewed with patient and [id number] again today. We recommended continuation of empiric [...] was negative. She is followed by [facility]. -liver biopsy 2019 mild, [...] services with Dr. Yasmin Ho MD of [facility] 02/2024, [...] possibly reactive. -liver biopsy done at [facility] 05/01/24, results pending -liver biopsy results [...] not drive), baths or swimming. Awaiting new CLAM BED LABORER provider. Daughter aware of how to call 911. Followed by neurologist, -followed by Dr. Jono Eden at [facility]. Next appointment 08/2024 [...] her prior hemorrhagic stroke. -Saw Neurologist at [facility] 08/20/24, Plan: continue ZNS 200 mg daily [...] not drive), baths or swimming. Awaiting new CLAM BED LABORER provider. Daughter aware of how to call [...] her prior hemorrhagic stroke. -Saw Neurologist at [facility] 08/20/24, Plan: continue ZNS 200 mg daily [...] not drive), baths or swimming. Awaiting new CLAM BED LABORER provider. Daughter aware of how to call [...] -Has follow up on Aug 20 at [facility] Assessment & Plan (10/20/2023 8:57 AM EST): [...] was negative. She is followed by [facility]. -liver biopsy 2019 mild, [...] services with Dr. Yasmin Ho MD of [facility] 12/12/2023, [...] diet discussed. Avoid hepatotoxic agents. -Followed by: [facility] -continue ursodiol therapy given marked AP elevation and potential for AMA negative PCB. -transplant candidacy will be determined by multidisciplinary transplant committee after all appropriate testing has been performed. -Has follow up with liver transplant oncology consultant on at [facility] -Per pt, On liver transplant list since [...] was negative. She is followed by [facility]. -seen by Liver Transplant [...] diet discussed. Avoid hepatotoxic agents. -Followed by: [facility] -continue ursodiol therapy given marked AP elevation and potential for AMA negative PCB. -transplant candidacy will be determined by multidisciplinary transplant committee after all appropriate testing has been performed. -call place by me to CCA daycare provider at [facility] [phone] to stress the urgency of CLAM BED LABORER services and increase level of care. He [...] was negative. She is followed by [facility]. -seen by Liver Transplant [...] diet discussed. Avoid hepatotoxic agents. -Followed by: [facility] -continue ursodiol therapy given marked AP elevation and potential for AMA negative PCB. -transplant candidacy will be determined by multidisciplinary transplant committee after all appropriate testing has been performed. -call place by me to CCA daycare provider at [facility] [phone] cell [phone] to stress the urgency of CLAM BED LABORER services and increase level of care. He [...] was negative. She is followed by [facility]. The possibility for liver [...] in her care. She has had multiple residential sales executive which she has fired and multiple case [...] in her care. She has had multiple residential sales executive which she has fired and multiple case [...] in her care. She has had multiple residential sales executive which she has fired and multiple case [...] in her care. She has had multiple residential sales executive which she has fired and multiple case [...] Encounters Date Type Department Care Team Description 02/04/2025 9:40 AM EDT Office Visit [facility] [address] [place] [id number] Rocio Bell MD Trochanteric bursitis of right hip (Primary Dx) 01/15/2025 Telephone [facility] MEDICINE [address] [place] [phone] Sammie Maharaj MD Durable Medical Equipment ([facility]: Shower Chair) 12/25/2024 Refill [facility] [address] [place] [phone] Sammie Maharaj MD Tinea unguium 12/19/2024 9:00 AM EDT Office Visit [facility] MED[facility] [address] [place] [phone] Sammie Maharaj MD End stage liver disease (CMS/HCC) (Primary Dx); Type 2 diabetes mellitus with hyperglycemia, with long-term current use of insulin (CMS/HCC); Complex care coordination; Rash; Swelling of right ear; Anxiety; Other specified health status 12/19/2024 Travel 12/15/2024 Refill [facility] [address] [place] [address] Sammie Maharaj MD Uncontrolled type 2 diabetes mellitus with hyperglycemia, with long-term current use of insulin (CMS/HCC) 12/10/2024 Patient Outreach [facility] [address] [place] [address] Sammie Maharaj MD Transition Of Care (Tcm) (HDF scheduled. ) 12/10/[address] [address] Sammie Maharaj MD Hospital Follow-up; chartprep 12/08/2024 Orders Only GENERIC EXTERNAL DATA DEPARTMENT Provider, Generic External Data End stage liver disease (CMS/HCC) (Primary Dx) 12/07/2024 Orders Only GENERIC EXTERNAL DATA DEPARTMENT Provider, Generic External Data 12/07/[address] [address] Sammie Maharaj MD Nurse Triage 12/05/2024 2:00 PM EST Office Visit [facility] WALK-IN [address] [address] Sammie Maharaj MD End stage liver disease ([facility]/HCC) (Primary Dx); Intractable headache, unspecified chronicity pattern, unspecified headache type 12/05/[address] [address] Uma Jiménez, ERVIN 12/05/[address] [address] Sammie Maharaj MD Nurse Triage 12/04/2024 Telephone [facility] [address] [address] Rocio Bell MD 12/03/2024 11:00 AM EST [facility] [address] [address] Rocio Bell MD Atopic dermatitis in adult (Primary Dx); End stage liver disease ([facility]/HCC) 12/03/[address] [address] Rosaura Almeida, ERVIN Results (Rocio Bell MD/12/03/2024 5:04 PM EST /Labs showed mild worsening of bili's and alk phos, rule out obstructive fissures or may be autoimmune hepatitis. /Her inflammatory markers are higher as well. She ideally should be seen by can vacuum tester now or run these labs by adjunct faculty instructor, /I spoke with Maria L at [facility] hepatology/transplant clinic and unfortunately no one was available at the office at the time. /She will send this information to the covering providers and have then get back to us, ) from Last 3 Months Immunizations Name Administration [...] Sign Reading Time Taken Comments Blood Pressure 128/69 02/04/2025 9:09 AM EDT Pulse 83 02/04/2025 9:09 AM EDT Temperature 36.7 ??C (98 ??F) 02/04/2025 9:09 AM EDT Respiratory Rate 16 02/04/2025 9:09 AM EDT Oxygen Saturation 98% 02/04/2025 9:09 AM EDT Inhaled Oxygen Concentration - - Weight 50.8 kg (112 lb) 02/04/2025 9:09 AM EDT Height 147.3 cm (4' 10 ) 12/03/2024 10:39 AM EST Body Mass Index 23.41 12/03/2024 10:39 AM EST Plan of Treatment Upcoming Encounters Date Type Department Care Team (Late st Contact Info) Description 02/25/2025 9:00 AM EDT Office Visit [facility] OPTOMETRY [address] [place] [address] Edilberto Bashirn, OD [address] [place] [address] 03/13/2025 3:30 PM EDT Office Visit [facility] MEDICINE [address] [place], [place] [phone] Sammie Maharaj MD [address] [place], [place] [phone] Health Maintenance Due Date Last Done Comments Family Planning (PISQ) 1996 Diabetes: Hemoglobin A1C 05/14/2025 025, 07/09/2024, 04/26/2024, Additional history exists Mammogram 09/06/2025 09/06/2023 Alcohol/Substance Use Screening 10/24/2025 10/24/2024 Depression Screening 10/24/2025 10/24/2024, 10/24/19 Diabetes: Foot Exam 10/24/2025 10/24/2024, 10/24/2024, 10/24/2024, Additional history exists Lipid Panel 10/24/2025 10/24/2024, 07/10, 12/07/2021, Additional history exists SDOH Screening 10/24/2025 10/24/2024 Diabetes: Urine Protein Screening 11/05/2025 11/05/2024, 04/26/2024, 07/28/2023, Additional history exists Eye Exam 11/11/2025 11/11/2023, 0211/2023, 11/11/2023, Additional history exists Tobacco Screening 12/19/2025 [...] hyperglycemia, with long-term current use of insulin ([facility]) LACTIC ACID Routine 12/08/2024 1:12 AM EST [...] EDT Narrative 01/08/2025 3:54 PM EDT ? [facility] ?[address] ?[place] [address] ? CT Scan Report ? Signed ? Patient: Aubrie Brewer ?MR#: M ?? [id number] ? : 1980 ?Acct:[id number] ? Age/Sex: 44 / F ?ADM Date: 01/07/25 ? Loc: HO.CT ? Attending Dr: Yasmin Ho MD ? Ordering Physician: Yasmin Ho MD ?? Date of Service: 01/07/25 ?? Procedure(s): CT abdomen w IV con ?? Accession Number(s): [id number] ? cc: Sammie Maharaj MD; Yasmin Ho MD ? Report Number: ?? [id number]: Total DLP = ??350.00 mGy-cm ? CLINICAL HISTORY: CT LIVER [address] PH[address] ? CT abdomen with contrast ? Comparison: MR/MD/SR - MR ABDOMEN WO/W CON - 05/23/24 08:13 EDT ?? MR/MD/SR - MR ABDOMEN WO/W CON - 02/10/24 [...] DD/ 1553 ? TD/TT: 01/08/25 1553 ? Finish Production Manager: ? Procedure Note Kalee, Image - 01/08/[address] [place] [address] [address] Scan Report Signed Patient: Aubrie BrewerMR#: M [id number] : 1980Acct:[id number] Age/Sex: 44 / FADM Date: 01/07/25 Loc: HO.CT Attending Dr: Yasmin Ho MD Ordering Physician: Yasmin Ho MD Date of Service: 01/07/25 Procedure(s): CT abdomen w IV con Accession Number(s): [id number] cc: Sammie Maharaj MD; Yasmin Ho MD Report Number: [id number]: Total DLP = 350.00 mGy-cm CLINICAL HISTORY: CT LIVER [address] abdomen with contrast Comparison: MR/MD/SR - MR ABDOMEN WO/W CON - 05/23/24 08:13 EDT MR/MD/SR - MR ABDOMEN WO/W CON - 02/10/24 [...] OV> 01/08/25 1553 DD/ 1553 TD/TT: 01/08/25 155 Finish Production Manager: [facility] External Provider IMG CT PROCEDURES Final Result * POCT glucose manually resulted (12/19/2024 9:09 AM EDT) Pathologist [facility] Glucose Blood, POC 131 60 - 200 mg/dL QC Media Lot # [id number] Lot# Expiration Date [id number] Blood Capillary blood specimen / Unknown 12/19/2024 9:09 AM EDT Sammie Maharaj MD POINT OF CARE TEST ENTER/E DIT ORDERABLES Final Result * Lactic Acid (12/08/2024 1:12 AM EST) Lactic Acid 1.6 0.5 - 2.0 mmol/L [facility] 12/08/2024 1:12 AM EST 12/08/2024 1:16 AM EST us Generic External Data Provider LAB BLOOD ORDERAB LES Final Result [facility] [address] [place] [address] [phone] * (ABNORMAL) CBC auto differential (12/07/2024 7:25 PM EST) Only the most recent of2 resultswithin the time period is included. White Blood Count 7.6 4.8 - 10.8 X10*3/uL [facility] Red Blood Count 3.43(L) 4.20 - 5.50 X10*6/uL [facility] Hemoglobin 11.1(L) 12.0 - 16.0 g/dl [facility] Hematocrit 31.0(L) 37.0 - 47.0 % [facility] Mean Corpuscular Volume 90.4 80.0 - 98.0 fL [facility] Mean Corpuscular Hemoglobin 32.4 27.0 - 33.0 pg [facility] Mean Corpuscular HGB Conc 35.8(H) 31.0 - 35.0 g/dl [facility] Red Cell Distribution Width 13.5 11.0 - 16.0 % [facility] Platelet Count 140(L) 160 - 400 X10*3/uL [facility] Mean Platelet Volume 12.4(H) 9.4 - 12.3 fL [facility] Neutrophils Percent Auto 86.3(H) 45 - 73 % [facility] Imm Gran Pct Auto 2.8(H) 0.0 - 0.4 % [facility] Lymphocytes Percent Auto 5.6(L) 20 - 40 % [facility] Monocytes Percent Auto 4.9 2 - 11 % [facility] Eosinophils Percent Auto 0.1 0 - 4 % [facility] Basophils Percent Auto 0.3 0 - 2 % [facility] NRBC Pct Auto 0.0 0.0 - 0.2 /100WBC [facility] Neutrophils Absolute Auto 6.6 2.0 - 8.3 x10*3/uL [facility] Imm Gran Abs Auto 0.21(H) 0.00 - 0.03 X10*3/uL [facility] Lymphocytes Absolute Auto 0.4(L) 1.2 - 4.9 X10*3/uL [facility] Monocytes Absolute Auto 0.4 0.1 - 1.2 X10*3/uL [facility] Eosinophils Absolute Auto 0.0 0.0 - 0.4 X10*3/uL [facility] Basophils Absolute Auto 0.0 0.0 - 0.2 X10*3/uL [facility] NRBC Abs Auto 0.000 0.0 - 0.012 X10*3/uL [facility] 12/07/2024 7:25 PM EST 12/07/2024 7:31 PM EST Generic External Data Provider LAB BLOOD ORDERAB LES Final Result Performing Organization Address City/State/[facility] Co de Phone Number [facility] [address] [place] [address] [phone] * (ABNORMAL) Prothrombin Time-INR (12/07/2024 7:25 PM EST) Prothrombin Time 19.7(H) 10.9 - 12.4 SEC [facility] INTERNATIONAL NORM RATIO 1.7(H) 0.9 - 1.1 [facility] Comment:INTERNATIONAL NORMAL IZED RATIO (INR) [...] ORDERAB LES Final Result Performing Organization Address [facility] de Phone Number [facility] [address] [place] [address] [phone] * (ABNORMAL) C-reactive Protein (12/07/2024 7:25 PM EST) Only the most recent of2 resultswithin the time period is included. C Reactive Protein 17.40(H) < or = 0.50 mg/dL [facility] 12/07/2024 7:25 PM EST 12/07/2024 7:31 PM EST Generic External Data Provider LAB BLOOD ORDERAB LES Final Result Performing Organization Address [facility] Number [facility] [address] [place] [address] [phone] * Magnesium (12/07/2024 7:25 PM EST) Magnesium 1.9 1.6 - 2.6 mg/dL [facility] 12/07/2024 7:25 PM EST 12/07/2024 7:31 PM EST Generic External Data Provider LAB BLOOD ORDERAB LES Final Result Performing Organization Address [facility] Phone Number [facility] [address] [place] [address] [phone] * (ABNORMAL) Ammonia, Plasma (12/07/2024 7:25 PM EST) Only the most recent of2 resultswithin the time period is included. Ammonia (P) 66(H) 13 - 55 umol/L [facility] 12/07/2024 7:2 5 PM EST 12/07/2024 7:31 PM EST Generic External Data Provider LAB BLOOD ORDERAB LES Final Result [facility] [address] [place] [address] [phone] * (ABNORMAL) Hepatic Function Panel (12/07/2024 7:25 PM EST) Only the most recent of2 resultswithin the time period is included. Bilirubin, Total 8.9(H) 0.0 - 1.0 mg/dL [facility] Comment:Mild Icterus. Bilirubin, Direct 7.2(H) 0.0 - 0.5 mg/dL [facility] Comment:Mild Icterus. Aspartate Amino Transferase 108(H) 5 - 31 U/L [facility] Alanine Aminotransferase 103(H) 0 - 31 U/L [facility] Total Protein 6.0(L) 6.5 - 8.0 g/dL [facility] Albumin Level 2.6(L) 3.5 - 5.0 g/dL [facility] Alkaline Phosphatase 831(H) 39 - 117 U/L [facility] 12/07/2024 7:25 PM EST 12/07/2024 7:31 PM EST us Generic External Data Provider LAB BLOOD ORDERAB LES Final Result Performing Organization Address [facility]/ZIP Co de Phone Number [facility] [address] [place] [phone] * (ABNORMAL) Basic Metabolic Panel (12/07/2024 7:25 PM EST) Sodium 134(L) 135 - 145 mmol/L [facility] Potassium 3.5 3.3 - 5.1 mmol/L [facility] Chloride 104 96 - 108 mmol/L [facility] Carbon Dioxide 21(L) 22 - 29 mmol/L [facility] Anion Gap 13 12 - 20 [facility] Urea Nitrogen (BUN) 15 9 - 16 mg/dL [facility] Creatinine, Serum 0.63 0.5 - 1.4 mg/dL [facility] Creatinine Clr Calc Pharmacy 79.5 [facility] Comment:Provided height and weight: 144.78 cm,51.5 kg.eGFR (calculated from the MDRD study equation) and eCrCl(calculated from the Cockcroft-Gault equation) are based ondifferent parameters and may not yield comparable results.If eCrCl result is absurd, please check patient'sheight/weight. Estimated Glomerular Filt Rate >60 [facility] Comment:Chronic Kidney Disea se: Estimated GFR < 60 mL/min/1.20m0Lvtiin Kidney Disease: Estimated GFR < 15 mL/min/1.73m2 Glucose 311(H) 60 - 115 mg/dL [facility] Calcium 8.2(L) 8.4 - 10.2 mg/dL [facility] 12/07/2024 7:25 PM EST 12/07/2024 7:31 PM EST us Generic External Data Provider LAB BLOOD ORDERAB LES Final Result Performing Organization Address City/[facility]/ZIP Co de Phone Number [facility] [address] [place] [address] [phone] * (ABNORMAL) Sed Rate by Modified Naty (12/07/2024 7:24 PM EST) Only the most recent of2 resultswithin the time period is included. Erythrocyte Sedimentation Rate 73(H) 0 - 20 MM/HR [facility] Comment:Patients with polycy themia and many hemoglobin abnormalitiesmay have depressed sed rates whereas patients with anemiamay have elevated sed rates. 12/07/2024 7:24 PM EST 12/07/2024 7:31 PM EST us Generic External Data Provider LAB BLOOD ORDERAB LES Final Result Performing Organization Address City/[facility]/ZIP Co de Phone Number [facility] [address] [place] [address] [phone] * Albumin, Random Urine W/Creatinine (11/05/2024 10:20 AM EST) Creatinine, Urine 59.34 mg/dL [facility] Microalbumin Urine <5.0 mg/L [facility] Microalbum Creatinine Ratio Ur TNP <30 ug/mg cr [facility] Comment:Unable to calculate albumin/creatinine ratio due to lowmicroalbumin or creatinine result. Urine 11/05/2024 10:2 0 AM EST 11/05/2024 11:21 AM EST us Sammie Maharaj MD LAB URINE ORDERABLES Final Result [facility] [address] [place] [address] [phone] * (ABNORMAL) Lipid Panel, Standard (10/24/2024 9:59 AM EST) Triglycerides 91 <150 mg/dL [facility] Comment:Mild Icterus.Interpr et result with caution.Desirable Triglyceride: less than 150 mg/dLBorderline High Triglyceride 150-199 mg/dLHigh Triglyceride: 200-499 mg/dLVery High Triglyceride: greater than or equal to 5OO mg/dL Cholesterol 132 <200 mg/dL [facility] Comment:Mild Icterus.Interpr et result with caution.Desirable Cholesterol: less than 200 mg/dLBorderline High Cholesterol: 200-239 mg/dLHigh Cholesterol: greater than 239 mg/dL LDL Cholesterol Calculated 92 <100 mg/dL [facility] Comment:Desirable LDL: less than 100 mg/dLNear Optimal/Above Optimal LDL: 110- 129 mg/dLBorderline High LDL: 130-159 mg/dLHigh LDL: 160-189 mg/dLVery High LDL: greater than or equal to 190 mg/dL HDL Cholesterol 22(L) >40 mg/dL [facility] Comment:Desirable HDL: great er than 40 mg/dL Note: This HDL assay may give artificially low results in patients with liver disease. Blood Venous blood specimen / Unknown 10/24/2024 9:59 AM EST 10/24/2024 11:05 AM EST Sammie Maharaj MD LAB BLOOD ORDERABLES Final Result [facility] [address] [facility] [place] [address] [phone] * POCT glycosylated hemoglobin (Hgb A1c) [...] Narrative 09/19/2023 10:41 AM EST ? [facility] ? [address] ?[place] [address] ? Mammography Report ? Signed ? Patient: Aubrie Brewer ?MR#: M ?? [id number] ? : 1980 ?Acct:[id number] ? Age/Sex: 43 / F ?ADM Date: 11/28/23 ? Loc: HO.MAMMO ? Attending Dr: Sammie Maharaj MD ? Ordering Physician: Sammie Maharaj MD ?Results: 1N ?? egative ? Date of Service: 09/06/23 ?Follow Up: 1 Year From Orig ?? inal Mammogram ? Procedure(s): MM tomosynthesis screening BI ?? Accession Number(s): [id number] ? cc: Sammie Maharaj MD ? EXAMINATION: [...] 1037 ? DD/ 1014 ? TD/TT: ? Finish Production Manager: ? Procedure Note Kalee, Image - 09/19/2023 [facility] [address] [place] [address] [place] [address] Mammography Report Signed Patient: Aubrie BrewerMR#: M [id number] : 1980Acct:[id number] Age/Sex: 43 / FADM Date: 09/06/23 Loc: HO.MAMMO Attending Dr: Sammie Maharaj MD Ordering Physician: Sammie Maharaj MDResults: 1N egative Date of Service: 09/06/23Follow Up: 1 Year From Orig ina Mammogram Procedure(s): MM tomosynthesis screening BI Accession Number(s): [id number] cc: Sammie Maharaj MD EXAMINATION: MM SCREENING [...] in OV> 09/19/23 1037 DD/ 1014 TD/TT: Finish Production Manager: us Sammie Maharaj MD IMG BI PROCEDURES Final Re sult * Hepatitis C Ab (07/28/2023 10:55 AM EDT) Hepatitis C Antibody Nonreactive Nonreactive [facility] Comment:Antibodies to HCV no t detected; does not exclude early acuteHCV infection. Blood 07/28/2023 10:5 5 AM EDT 07/28/2023 1:11 PM EDT Sammie Maharaj MD LAB BLOOD ORDERABLES Final Result Performing Organization Address [facility]/ZIP Co de Phone Number [facility] [address] [place] [address] [phone] * HIV Ab/Ag (NE DP) (07/28/2023 10:55 AM EDT) HIV AB/AG Nonreactive Nonreactive [facility] Comment:HIV-1 p24 Ag and/or HIV-1/HIV-2 Ab not detected.A test result that is nonreactive does not exclude thepossibility of exposure to or infection with HIV-1 and/orHIV-2. Nonreactive results in this assay for individualswith prior exposure to HIV-1 and/or HIV-2 may be due toantigen and antibody levels that are below the limit ofdetection of this assay.The [employer] HIV Ag/Ab Combo assay result andsupplemental assay results should be interpreted inconjunction with the patient's clinical presentation,history and other laboratory results. If the results areinconsistent with clinical evidence, additional testing issuggested to confirm the result. 07/28/2023 10:5 5 AM EDT 07/28/2023 1:11 PM EDT Sammie Maharaj MD LAB BLOOD ORDERABLES Final Result Performing Organization Address [facility] Co de Phone Number [facility] [address] [place] [phone] * Pap Smear (03/25/2021 12:00 AM EDT) Swab Historical Provider LAB CYTOLOGY ORDERABLES F inal Result Performing Organization Address City/[facility]/ZIP Co de Phone Number IMAGING from Last 3 Months or Most Recently Relevant to Health Maintenance Insurance REINALDO WEBER [id number] Advance Directives Documents on File Type Date Recorded Patient Book Jogger Expl anation Advance Directives and Living Will 07/09/2024 Health Care Proxy 07/09/24 Care Teams Sap Ariba Consultant Relationship Specialty Start Date End Date [place], MD Sammie [address] [place], [place] PCP - General Family Medicine 10/10/18 Loyda Glaser, RN [address] [place], [place] Fbi Sharpshooter Family Medicine 10/31/23 Yasmin Ho MD [address] [place] [address] Gastroenterology 08/29/24 Manuel Carpenter PA U [address] [address] Neurology 08/29/24 Paola Tolentino, HEBERT [address] [address] Endocrinology 10/24/24 [facility] Psychology 12/19/24
--- OUTSIDE RECORDS SUMMARY | 2025-02-14 07:26 | XMS_ITS | Encounter Summary ---
Demographics Address [address] [facility] [address] [place] [address] Home Phone Mobile Phone Preferred Language Anguillan; Castilian Marital Status Single Buddhist Affiliation Unknown Race Unknown Ethnic Group Unknown Author Organization [facility] Address [address] [place] [address] Support Name Relationship Address Phone Orion Rubio Daughter [address] [facility] [address] [place] [address] Care Team Providers Care Photography Manager Name Role Phone Sammie Maharaj Primary Care Provider [phone]- [phone] Encounter Details Date Type Department Care Team (Late st Contact Info) Description 11/04/2023 Orders Only [facility] Interventional Radiology [address] [place] [phone] Duncan Ragland MD [address] [place] [address] Social History Tobacco Use Types Packs/Day Years [...] Description 03/22/2025 3:30 PM EDT Office Visit [facility] Building Diabetes Clinic [address] [place] [address] Body Service Team Member: Natasha Rubalcava MD [address] [place] [address] 04/09/2025 9:00 AM EDT Follow-Up [facility] Liver Transplant Services [address] [place] [address] Yasmin Ho MD [address] [place] [address] 07/17/2025 8:00 AM EDT Office Visit [facility] Diabetes Clinic [address] [place] [address] Body Service Team Member: Paola Vance PRODUCTION CONTROL SUPERVISOR [address] [place] [address] 08/06/2025 8:00 AM EDT Office Visit [facility] Neurology Clinic [address] [place] [address] Manuel Carpenter PA [address] [place] [address] documented as of this encounter Visit Diagnoses Not on filedocumented in this encounter Care Teams Photography Manager Relationship Specialty Start Date End Date Sammie Maharaj [address] [place] [address] PCP - General Family Medicine 05/15/18 documented as of this encounter
--- OUTSIDE RECORDS SUMMARY | 2025-02-14 07:26 | XMS_ITS | Encounter Summary ---
Author Organization [employer] Address [address] [place] [address] 7[address] [place] [address] Care Team Providers Care Printer Slotter Operator Name Role Phone Sammie Maharaj MD Primary Care Provider [phone]- [phone] Loyda Glaser RN Unavailable [phone] Yasmin Ho MD Unavailable [phone] Encounter Details Date Type Department Care Team (Late st Contact Info) Description 11/11/2022 Abstract [facility] MEDICINE [address] [place] [address] Sammie Maharaj MD [address] [place] [address] Social History Tobacco Use Types Packs/Day Years [...] Description 02/25/2025 9:00 AM EDT Office Visit [facility] OPTOMETRY [address] [place], [place] [phone] Darshana Bashir, OD [address] [place] [address] 03/13/2025 3:30 PM EDT Office Visit [facility]ICINE [address] [place] [address] Sammie Maharaj MD [address] [place] [address] documented as of this encounter Procedures Procedure Name Priority Date/Time Associated Diagnosis Comments PAP SMEAR Routine 03/25/2021 12:00 AM EDT documented in this encounter Results * Pap Smear (03/25/2021 12:00 AM EDT) Swab us Historical Provider LAB CYTOLOGY ORDERABLES F inal Result IMAGING documented in this encounter Visit Diagnoses Not on filedocumented in this encounter Care Teams Printer Slotter Operator Relationship Specialty Start Date End Date Sammie Maharaj MD [address] [place] [address] PCP - General Family Medicine 10/10/18 Loyda Glaser RN [address] [place] [address] Infant Babysitter Family Medicine 10/31/23 Yasmin Ho MD [address] [place] [address] Gastroenterology 08/29/24 Manuel Carpenter PA [facility] [address] [facility] [address] Neurology 08/29/24 Paola Tolentino NP [address] [address] Endocrinology 10/24/24 [facility] Psychology Psychology 12/19/24 documented as of this encounter
--- OUTSIDE RECORDS SUMMARY | 2025-02-14 07:26 | XMS_ITS | Encounter Summary ---
Demographics Address [address] [facility] [address] [place] [address] Home Phone Mobile Phone Preferred Language Montenegrin; Castilian Marital Status Single Church Affiliation Unknown Race Unknown Ethnic Group Unknown Author Organization [facility] Address [address] [place] [address] Support Name Relationship Address Phone Orion Rubio Daughter [address] [facility] [address] [place] [address] Care Team Providers Care Soap Mixer Name Role Phone Sammie Maharaj Primary Care Provider [phone] Encounter Details Date Type Department Care Team (Late st Contact Info) Description 09/20/2023 Orders Only [facility] Interventional Radiology [address] [place] [address] Ricardo Reyez MD [address] [place] [address] Social History Tobacco Use Types Packs/Day Years [...] Visit [facility] Building Diabetes Clinic [address] [place] [address] Instrument And Controls Technician: Natasha Rubalcava MD [address] [place] [address] [phone] 04/09/2025 9:00 AM EDT Follow-Up [facility] Liver Transplant Services [address] [place] [address] Yasmin Ho MD [address] [place] [address] 07/17/2025 8:00 AM EDT Office Visit [facility] Diabetes Clinic [address] [place] [address] Instrument And Controls Technician: Paola Vance NP [address] [place] [address] 08/06/2025 8:00 AM EDT Office Visit [facility] Neurology Clinic [address] [place] [address] Manuel Carpenter PA [address] [place] [address] documented as of this encounter Visit Diagnoses Not on filedocumented in this encounter Care Teams Soap Mixer Relationship Specialty Start Date End Date Sammie Maharaj [address] [place] [address] PCP - General Family Medicine 05/15/18 documented as of this encounter
--- OUTSIDE RECORDS SUMMARY | 2025-02-14 07:26 | XMS_ITS | Encounter Summary ---
Demographics Address [address] [facility] [address] [place] [address] Home Phone Mobile Phone Preferred Language Vatican Citizen; Castilian Marital Status Single Orthodoxy Affiliation Unknown Race Unknown Ethnic Group Unknown Author Organization [facility] Address [address] [place] [address] Support Name Relationship Address Phone Orion Rubio Daughter [address] [facility] [address] [place] [address] Care Team Providers Care Learning Coach Name Role Phone Sammie Maharaj Primary Care Provider [phone]- [phone] Encounter Details Date Type Department Care Team (Late st Contact Info) Description 01/08/2025 Results Follow-Up [facility] Liver Transplant Services [address] [place] [address] Katy Boateng RN Social History Tobacco Use [...] Description 03/22/2025 3:30 PM EDT Office Visit [facility] Building Diabetes Clinic [address] [place] [address] Slot Shift Supervisor: Natasha Rubalcava MD [address] [place] [address] 04/09/2025 9:00 AM EDT Follow-Up [facility] Liver Transplant Services [address] [place] [address] Yasmin Ho MD [address] [place] [address] 07/17/2025 8:00 AM EDT Office Visit [facility] Diabetes Clinic [address] [place] [address] Slot Shift Supervisor: Paola Vance NP [address] [place] [address] [place] [address] 08/06/2025 8:00 AM EDT Office Visit [facility] Neurology Clinic [address] [place] [address] Manuel Carpenter PA [address] [place] [address] documented as of this encounter Visit Diagnoses Not on filedocumented in this encounter Care Teams Learning Coach Relationship Specialty Start Date End Date Sammie Maharaj [address] [place] [address] PCP - General Family Medicine 05/15/18 documented as of this encounter
--- OUTSIDE RECORDS SUMMARY | 2025-02-14 07:26 | XMS_ITS | Encounter Summary ---
Author Organization [employer] Address [address] [facility] [address] [place] [address] Care Team Providers Care Call Taker Name Role Phone Sammie Maharaj MD Primary Care Provider [phone] Loyda Glaser RN Unavailable [phone] Yasmin Ho MD Unavailable Reason for Visit * Reason Comments Med Refill Encounter Details Date Type Department Care Team (Late st Contact Info) Description 11/13/2024 Refill [facility] [address] [place], [place] [phone] Sammie Maharaj MD [address] [place], [place] [phone] Tinea unguium Social History Tobacco Use Types [...] Description 02/25/2025 9:00 AM EDT Office Visit [facility] OPTOMETRY [address] [place] [address] Mckay, Darshana, OD [address] [place] [address] 03/13/2025 3:30 PM EDT Office Visit [facility] MEDICINE [address] [place] [address] Sammie Maharaj MD [address] [place] [address] documented as of this encounter Visit Diagnoses Diagnosis Tinea unguium Dermatophytosis of nail documented in this encounter Additional Health Concerns Assessment Noted Time PHQ-9 Depression Total Score: 0 10/24/19 25 9:33 AM EST documented as of this encounter Care Teams Call Taker Relationship Specialty Start Date End Date Sammie Maharaj MD [address] [place] [address] PCP - General Family Medicine 10/10/18 Loyda Glaser, RN [address] [place] [address] Sprayer Automatic Spray Machine Family Medicine 10/31/23 Yasmin Ho MD [address] [place] [address] Gastroenterology 08/29/24 Manuel Carpenter PA [facility] 55 [facility] [address] Neurology 08/29/24 Paola Tolentino RADIOLOGY TEACHER [address] [address] Endocrinology 10/24/24 [facility] Psychology Psychology 12/19/24 documented as of this encounter
--- OUTSIDE RECORDS SUMMARY | 2025-02-14 07:26 | XMS_ITS | Encounter Summary ---
Demographics Address [address] [facility] [address] [place] [address] Home Phone Mobile Phone Preferred Language Bruneian; Castilian Marital Status Single Jew Affiliation Unknown Race Unknown Ethnic Group Unknown Author Organization [facility] Address [address] [place] [address] Support Name Relationship Address Phone Orion Rubio Daughter [address] [facility] [address] [place] [address] Care Team Providers Care Mechanical Engineering Advisor Name Role Phone Sammie Maharaj Primary Care Provider [phone]- [phone] Encounter Details Date Type Department Care Team (Late st Contact Info) Description 10/27/2023 Orders Only [facility] Interventional Radiology [address] [place], [place] [phone] Enzo Conner MD [address] [place] [address] Social History Tobacco Use Types Packs/Day Years [...] Description 03/22/2025 3:30 PM EDT Office Visit [facility] Building Diabetes Clinic [address] [place], [place] [phone] Cabin Man: Natasha Rubalcava MD [address] [place] [address] [phone] 04/09/2025 9:00 AM EDT Follow-Up [facility] Liver Transplant Services [address] [place] [address] Yasmin Ho MD [address] [place] [address] 07/17/2025 8:00 AM EDT Office Visit [facility] Diabetes Clinic [address] [place] [address] Cabin Man: Paola Vance, PERMACULTURE CONTRACTOR [address] [place] [address] 08/06/2025 8:00 AM EDT Office Visit [facility] Neurology Clinic [address] [place] [address] Manuel Carpenter PA [address] [place] [address] documented as of this encounter Visit Diagnoses Not on filedocumented in this encounter Care Teams Mechanical Engineering Advisor Relationship Specialty Start Date End Date Sammie Maharaj: [phone] [address] [place] [address] PCP - General Family Medicine 05/15/18 documented as of this encounter
--- OUTSIDE RECORDS SUMMARY | 2025-02-14 07:27 | XMS_ITS | Encounter Summary ---
Demographics Address [address] [facility] [address] [place] [address] Home Phone Mobile Phone Preferred Language Costa Rican; Castilian Marital Status Single Uatsdin Affiliation Unknown Race Unknown Ethnic Group Unknown Author Organization [facility] Address [address] [place] [address] Support Name Relationship Address Phone Orion Rubio Daughter [address] [facility] [address] [place] [address] Care Team Providers Care Open End Spinning Operator Name Role Phone Sammie Maharaj Primary Care Provider [phone]- [phone] Encounter Details Date Type Department Care Team (Late st Contact Info) Description 12/21/2024 Orders Only [facility] Interventional Radiology [address] [place] [phone] Mateusz Wilkinson DO [address] [place] [address] Social History Tobacco Use Types Packs/Day Years [...] Description 03/22/2025 3:30 PM EDT Office Visit [facility] Building Diabetes Clinic [address] [place] [phone] Night Auditor: Natasha Rubalcava MD [address] [place] [address] 04/09/2025 9:00 AM EDT Follow-Up [facility] Liver Transplant Services [address] [place] [address] Yasmin Ho MD [address] [place] [address] 07/17/2025 8:00 AM EDT Office Visit [facility] [address] [place] [address] Night Auditor: Paola Vance, FRONT OFFICE ASSISTANT [address] [place] [address] 08/06/2025 8:00 AM EDT Office Visit [facility] Neurology Clinic [address] [place] [address] Manuel Carpenter PA [address] [place] [address] documented as of this encounter Visit Diagnoses Not on filedocumented in this encounter Care Teams Open End Spinning Operator Relationship Specialty Start Date End Date Sammie Maharaj: [phone] [address] [place] [phone] PCP - General Family Medicine 05/15/18 documented as of this encounter
--- OUTSIDE RECORDS SUMMARY | 2025-02-14 07:27 | XMS_ITS | Encounter Summary ---
Demographics Address [address] [facility] [address] [place] [address] Home Phone Mobile Phone Preferred Language North Korean; Castilian Marital Status Single Baptism Affiliation Unknown Race Unknown Ethnic Group Unknown Author Organization [facility] Address [address] [place] [address] Support Name Relationship Address Phone Orion Rubio Daughter [address] [facility] [address] [place] [address] Care Team Providers Care Car Restorer Name Role Phone Sammie Maharaj Primary Care Provider +1- [phone] Encounter Details Date Type Department Care Team (Late st Contact Info) Description 09/12/2024 Orders Only [facility] Interventional Radiology [address] [place] [address] Eugene Warren MD [address] [place] [address] Social History Tobacco Use Types Packs/Day Years [...] Description 03/22/2025 3:30 PM EDT Office Visit [facility] Building Diabetes Clinic [address] [place] [address] Last Puller: Natasha Rubalcava MD [address] [place] [address] 04/09/2025 9:00 AM EDT Follow-Up [facility] Liver Transplant Services [address] [place] [address] Yasmin Ho MD [address] [place] [address] 07/17/2025 8:00 AM EDT Office Visit [facility] Diabetes Clinic [address] [place] [address] Last Puller: Paola Vance NP [address] [place] [address] 08/06/2025 8:00 AM EDT Office Visit [facility] Neurology Clinic [address] [place] [address] Manuel Carpenter PA [address] [place] [address] documented as of this encounter Visit Diagnoses Not on filedocumented in this encounter Care Teams Car Restorer Relationship Specialty Start Date End Date Sammie Maharaj [address] [place] [address] PCP - General Family Medicine 05/15/18 documented as of this encounter
--- OUTSIDE RECORDS SUMMARY | 2025-02-14 07:27 | XMS_ITS | Encounter Summary ---
Demographics Address [address] [facility] [address] [place] [address] Home Phone Mobile Phone Preferred Language Citizen Of [place]; Castilian Marital Status Single Uatsdin Affiliation Unknown Race Unknown Ethnic Group Unknown Author Organization [facility] Address [address] [place] [address] Support Name Relationship Address Phone Orion Rubio Daughter [address] [facility] [address] [place] [address] Care Team Providers Care Automatic Drill Operator Name Role Phone Sammie Maharaj Sujit Primary Care Provider [phone]- [phone] Encounter Details Date Type Department Care Team (Late st Contact Info) Description 07/13/2017 Transplant Conversio n Encounter [facility] Health Information Management [address] [place] [address] Provider, [facility] Social History [...] Description 03/22/2025 3:30 PM EDT Office Visit [facility] Building Diabetes Clinic [address] [place] [address] Manager Port: Natasha Rubalcava MD [address] [place] [address] 04/09/2025 9:00 AM EDT Follow-Up [facility] Liver Transplant Services [address] [place] [address] Yasmin Ho MD [address] [place] [address] 07/17/2025 8:00 AM EDT Office Visit [facility] Diabetes Clinic [address] [place] [address] Manager Port: Paola Vance BILLET SHEARER [address] [place] [address] 08/06/2025 8:00 AM EDT Office Visit [facility] Neurology Clinic [address] [place] [address] Manuel Carpenter PA [address] [place] [address] documented as of this encounter Visit Diagnoses Not on filedocumented in this encounter Care Teams Automatic Drill Operator Relationship Specialty Start Date End Date Sammie Maharaj: [phone] [address] [place] [address] PCP - General Family Medicine 05/15/18 documented as of this encounter
--- OUTSIDE RECORDS SUMMARY | 2025-02-14 07:27 | XMS_ITS ---
Demographics Address [address] [facility] [address] [place] [address] Home Phone Mobile Phone Preferred Language Khmer; Castilian Marital Status Single Jehovah'S Witness Affiliation Unknown Race Unknown Ethnic Group Unknown Author Organization [facility] Address [address] [place] [address] Support Name Relationship Address Phone Orion Rubio Daughter [address] [facility] [address] [place] [address] Care Team Providers Care Junior Systems Analyst Name Role Phone Nicko Sammie J Primary Care Provider [phone] Transplant Episode Liver Candidate [facility] ([place], [place]) [facility] waitlisted on 12/30/2023 Marked as Active on 12/30/2023 Liver CoordinatorKaty Boateng RN Phone: N/A Fax: N/A Email: N/A Scores Score Value Updated Expires Exceptions/Vida sons CPRA Not available UNOS MELD 21 01/29/2025 02/28/2025 MELD (Calc) 01/25/2025 [place] Organ Diagnosis Organ Primary Contributory 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
--- OUTSIDE RECORDS SUMMARY | 2025-02-14 07:27 | XMS_ITS | Data Portability ---
Author Organization [facility] Address [address] [place] [phone] Care Team Providers Care Salesperson Books Name Role Phone [facility] OTHER [facility] OTHER Assessment No assessment recorded. Plan of [...] Name and Address Organization Details Recorded Time 55264 acetamino phen medicatio n Not available Not available Not available 12/07/2024 161 RxNorm Not Available [facility] - production 12:30:55 23738 latex environme nt,medica tion Not available Not available Not available 12/07/2024 69176 91 RxNorm Not Available [facility] - production [...] Available No t Available [facility] [place] [address] [place] active Not Available Not Available Not Available [...] [degF] 110 mm[Hg] 62 mm[Hg] Not Available [facility] - production 5 18:33:29 Social History None recorded. Functional Status None recorded. Mental Status None recorded. Family History Nothing Reported. Medical History No medical history recorded. Gynecological HistoryNo gynecological history recorded. Obstetrics History GPAL:G 0 P 0 0 0 0 Past Encounters Encounter ID Performer Location Encounter Start Date Encounter Closed Date Diagnosis/Indication Diagnosis SNOMED-CT Code Diagnosis ICD10 Code Diagnosis Note [id number] Mi Chen MD [facility] [address] [place] [phone] 12/14/2024 18:33:24 12/14/2024 20:52:08 Bilateral lower limb edema 619470348 R60.0 As noted, we were called to see this patient regarding concerns of LE swelling. Evaluation in the field was performed by my finish filer colleague, as noted above, I provided real-time [...] Recorded Advance Directives Directive None Recorded Payers Insurance Date Sequence Insurance Name Policy Number Policy Watson Covered Member ID Watson Member ID Guarantor Name 12/12/2024 1 [facility] - DOS ON OR AFTER 2023 - DUAL ELIGIBLE - CARE HOME OPTIONS AND ONE CARE (MEDICARE REPLACEMENT/ADV ANTAGE - HMO) Aubrie Mario [id number] Aubrie Mario Notes Date Note Type Note [...] no active ABX info provided by daughter Press Bucker verified the name//address and phone number. Education provided on the response time and the Patient was advised to monitor reported s/s and seek emergency treatment if needed Senior Administrator Support Organization Information for Duncan Romero [employer] Business Legal Name: [employer]? Address: [address] [place] [address] [place] [address], Mock Up Builder: Kris MUNOZ No.: [id number] Senior Administrator Support POC Test Results from Duncan Romero [employer] Blood Glucose Measurement (18:33:13) Blood Glucose: 230 mg/dL ................... ................... ................... ................... ................... ................... ................... ........ Senior Administrator Support Note From Duncan Romero: Arrived to find a 44-year-old Czech-speaking female in the apartment with daughter which [...] in ankles or lower extremities. Contact of [facility] and discuss patient presentation, [...] ................... ................... ................... ................... ................... ................... ........ [facility] Consulted: Mi Chen ................... ................... ................... ................... ................... ................... ................... ........ Disposition: Sheng Chen MD [address] [facility],[address], [place], [phone], [facility] 12/14/2024 20:17:46 OBGyn Episode No OBEpisode recorded.
--- OUTSIDE RECORDS SUMMARY | 2025-02-14 07:27 | XMS_ITS | Referral Summary ---
Demographics Address [address] [facility] [address] [place] [address] Home Phone Mobile Phone Preferred Language Lao; Castilian Marital Status Single Yarsanism Affiliation Unknown Race Unknown Ethnic Group Unknown Author Organization [facility] Address [address] [place] [address] Support Name Relationship Address Phone Orion Rubio Daughter [address] [facility] [address] [place] [address] Care Team Providers Care Record Librarian Name Role Phone Sammie Maharaj Primary Care Provider Encounters Date Type Department Care Team Description 02/14/2025 Refill [facility] Liver Transplant Services [address] [place] [address] [phone] Yasmin Ho MD 02/13/2025 Orders Only [facility] Transplant Department [address] [place] [address] 92204 Katy Boateng RN Cryptogenic cirrhosis (HCC) (Primary Dx) 02/12/2025 Telephone [facility] Transplant Department [address] [place] [address] 14495 Katy Boateng RN 01/29/2025 Results Follow-Up [facility] Transplant Services [address] [place] [address] 11376 Denae Johnson RN 01/29/2025 Abstract [facility] Transplant Department [address] [place] [address] 83187 Yasmin Ho MD 01/24/2025 Telephone [facility] Transplant Department [address] [place] [address] 95083 Katy Boateng RN 01/14/2025 Orders Only [facility] Transplant Department [address] [place] [address] [phone] Katy Boateng, ERVIN 01/14/2025 Telephone [facility] Transplant Department [address] [place] [address] Katy Boateng RN 01/10/2025 Results Follow-Up [facility] Liver Transplant Services [address] [place] [address] Katy Boateng RN 01/09/2025 Results Follow-Up [facility] Liver Transplant Services [address] [place] [address] Katy Boateng, ERVIN 01/09/2025 Orders Only [facility] Transplant Department [address] [place] [address] 59365 Lola Anthony MD 01/09/2025 Telephone [facility] Transplant Department [address] [place] [address] 13554 Katy Boateng RN 01/08/2025 Orders Only [facility] Transplant Department [address] [place] [address] 16814 Katy Boateng RN Cryptogenic cirrhosis (HCC) (Primary Dx) 01/08/2025 Results Follow-Up [facility] Transplant Services [address] [place] [address] 99222 Katy Boateng RN 01/08/2025 Orders Only [facility] Transplant Department [address] [place] [address] [phone] Katy Boateng RN Cryptogenic cirrhosis (HCC) (Primary Dx) 01/08/2025 8:00 AM EDT Follow-Up [facility] Liver Transplant Services [address] [place] [address] 23205 Yasmin Ho MD Cryptogenic cirrhosis (HCC) (Primary Dx) 01/07/2025 Orders Only [facility] - External Imaging [address] [place] [address] 66964 Radiology, External 01/04/2025 Orders Only [facility] Transplant Department [address] [place] [address] 61334 Katy Boateng RN Cryptogenic cirrhosis (Primary Dx) 01/04/2025 Orders Only [facility] Transplant Department [address] [place] [address] 31360 Katy Boateng RN Cryptogenic cirrhosis (Primary Dx) 12/27/2024 Abstract [facility] Transplant Department [address] [place] [address] Yasmin Ho MD 12/21/2024 Orders Only [facility] Interventional Radiology [address] [place] [address] 51879 Mateusz Wilkinson DO 12/21/2024 Orders Only [facility] Transplant Department [address] [place] [address] 77578 Katy Boateng RN Cryptogenic cirrhosis (Primary Dx) 12/17/2024 Refill [facility] [address] [place] [address] 53224 Mine Surveyor: Kaylee Rodriguez NP 12/17/2024 Telephone [facility] Transplant Department [address] [place] [address] 41982 Katy Boateng RN 12/17/2024 Orders Only [facility] Transplant Department [address] [place] [address] 96470 Katy Boateng RN Cryptogenic cirrhosis (Primary Dx) 12/14/2024 Orders Only [facility] Transplant Department [address] [place] [address] 26004 Katy Boateng RN Cryptogenic cirrhosis (Primary Dx) 12/14/2024 Results Follow-Up [facility] Liver Transplant Services [address] [place] [address] Katy Boateng RN 12/13/2024 Abstract [facility] Transplant Department [address] [place] [address] Yasmin Ho MD 12/10/2024 Orders Only [facility] Transplant Department [address] [place] [address] Katy Boateng RN Cryptogenic cirrhosis (Primary Dx) 12/04/2024 Telephone [facility] Transplant Department [address] [place] [address] Katy Boateng RN 12/04/2024 Orders Only [facility] Transplant Department [address] [place] [address] Katy Boateng RN Cryptogenic cirrhosis (Primary Dx); Liver disease 11/28/2024 Telephone [facility] Transplant Department [address] [place] [address] Katy Boateng RN from Last 3 Months Allergies Active Allergy Reactions Criticality Noted Date Comments Latex Rash Medications BD Sandy 2nd Gen Pen Needle 4 mm x 32 g USE 1 NIGHTLY 04/27/2021 Activ e Freestyle lancets 28 gauge 05/01/2021 Active Freestyle Lite test strips CHECK BLOOD SUGAR 3 TIMES A DAY 04/07/2021 Active Alcohol Prep Pads pads, medicated 05/01/2021 Active ferrous gluconate (FERGON) 324 mg (37.5 mg iron) tablet tablet Take 324 mg by mouth daily with breakfast. Active omeprazole (PriLOSEC) 20 mg capsule SMARTSI Capsule(s) By Mouth Daily 08/26/2023 Active FreeStyle Lerna Lite meter TEST BLOOD SUGAR THREE TIMES DAILY 10/14/2023 Active FreeStyle Charlotte 2 [place] misc 10/19/2023 Activ e FreeStyle Charlotte 2 Sensor kit 10/19/2023 Active TRUEplus Lancets lancet 33 gauge TEST BLOOD SUGAR THREE TIMES DAILY 10/14/2023 Active ciclopirox (PENLAC) 8 % solution SMARTSIG:Topi ramirez Every Night 09/26/2023 Active metoprolol tartrate (LOPRESSOR) 50 mg tabletIndicatio ns:Encounter for pre-transplant evaluation for liver transplant Take 1 tablet (50 mg) by mouth 12 hours prior to exam. Take 1 tablet (50 mg) by mouth 1 hour prior to exam. 2 tablet 11/03/2023 Active cholecalciferol (VITAMIN D3) 1,250 mcg (50,000 unit) capsule TAKE 1 CAPSULE BY MOUTH ONE TIME PER WEEK 8 capsule 04/30/2024 Active FreeStyle Charlotte 3 [place] misc Use to monitor blood sugars. E11.9 1 each 05/15/2024 9:09 AM EDT 04/26/2024 Active FreeStyle Charlotte 3 Sensor deviceIndicatio ns:Type 2 diabetes mellitus without complication, with long-term current use of insulin (HCC) Change sensor every 14 days. E11.9 2 each 11 07/25/2024 6:52 PM EDT 04/27/2024 Active FreeStyle Charlotte 3 Plus Sensor deviceIndicatio ns:Type 2 diabetes mellitus without complication, with long-term current use of insulin (HCC) Change sensor every 15 days. E11.65 2 each 11 11/23/2024 2:46 PM EST 06/28/2024 Active zonisamide (ZONEGRAN) 100 mg capsule TAKE 2 CAPSULES (200 MG TOTAL) BY MOUTH AT BED TIME. 180 capsule 3 07/24/2024 Active ursodioL (ACTIGALL) 250 mg tablet TAKE 1 TABLET BY MOUTH THREE TIMES A DAY 90 tablet 11 08/23/2024 Active Lantus Solostar U-100 Insulin 100 unit/mL (3 mL) pen injection Inject 18 Units under the skin nightly. 15 mL 11 12/18/2024 Active lactulose 10 gram/15 mL solution Take 30 mL (20 g total) by mouth 5 times a day. 87422 mL 01/08/2025 01/09/20 26 Active Active Problems Problem Noted Date Diagnosed Date [...] from 18-14 by endo 04/[address] [facility] endocrinology 04/18/24 Hemoglobin A1c is falsely [...] approval for her to upgrade to the freeFlux Factory[employer] charlotte 3 CGM. BPPV (benign paroxysmal positional [...] Office Visit [facility] Building Diabetes [facility] [address] [place] [address] 16398 Mine Surveyor: Natasha Rubalcava MD [address] [place] [address] [phone] 04/09/2025 9:00 AM EDT Follow-Up [facility] Liver Transplant Services [address] [place] [address] 88316 Yasmin Ho MD [address] [place] [address] 07/17/2025 8:00 AM EDT Office Visit [facility] [address] [place] [address] Mine Surveyor: Paola Vance NP [address] [place] [address] [place] [address] 08/06/2025 8:00 AM EDT Office Visit [facility] [address] [place] [address] [phone] Manuel Carpenter PA [address] [place] [address] Procedures * Due to [place] state law, this organization might not be sharing negative HIV tests. Procedure Name Priority Date/Time Associated Diagnosis Comments LIVER PRE EXTERNAL PANEL Routine 01/25/2025 7:34 AM EDT AFP TUMOR MARKER Routine 01/08/2025 9:29 AM [...] to Health Maintenance Results * Due to [place] state law, this organization might not be sharing negative HIV tests. * LIVER PRE EXTERNAL PANEL (01/25/2025 7:34 AM EDT) Only the most recent of3 resultswithin the time period is included. Sodium 143 mmol/L [facility] Potassium 3.0 [facility] Chloride 116 [facility] Carbon Dioxide 20 [facility] Glucose 153 [facility] BUN 13 mg/dL [facility] Creatinine 0.52 mg/dL [facility] Calcium 8.6 mg/dL [facility] Total Protein 5.9 g/dL [facility] Albumin 2.8 g/dL [facility] Bilirubin, Total 7.0 mg/dL [facility] Bilirubin, Direct 5.6 mg/dL [facility] Alkaline Phosphatase 942 U/L [facility] AST 112 U/L [facility] ALT 91 U/L [facility] INR 1.40 [facility] 01/25/2025 7:34 AM EDT us Yasmin Ho MD LAB BLOOD ORDERABLES Final R esult [facility] [address] [place] [address] 985[address] * AFP Tumor Marker (01/08/2025 9:29 AM EDT) Pathologist [facility] Alpha Fetoprotein, Tumor Marker 3.6 ng/mL 01/10/2025 7:34 AM EDT [facility] Comment: Reference Range: ?? <6.1 The use of AFP as a tumor marker in females is not recommended. This test was performed using the Magdiel [place] chemiluminescent method. Values obtained from different assay methods cannot be used interchangeably. AFP levels, regardless of value, should not be interpreted as absolute evidence of the presence or absence of disease. Blood Structure of peripheral vein / Unknown Venipuncture / Unknown 01/08/2025 9:29 AM EDT 01/08/2025 9:42 AM EDT [facility] - 01/10/2025 7:34 AM EDT [facility] Received Date: Yasmin Ho MD LAB BLOOD ORDERABLES Final R esult [facility] [address], [place] [address], [employer] [address], [place] [address], * (ABNORMAL) CBC Auto Differential (01/08/2025 9:28 AM EDT) [facility] WBC 3.9 3.8 - 10.8 10*3/uL 01/08/2025 9:55 AM EDT [facility] RBC 3.77(L) 3.80 - 5.10 10*6/uL 01/08/2025 9:55 AM EDT [facility] Hemoglobin 12.0 11.7 - 15.5 g/dL 01/08/2025 9:55 AM EDT [facility] Hematocrit 36.2 35.0 - 45.0 % 01/08/2025 9:55 AM EDT [facility] MCV 96.0 80.0 - 100.0 fL 01/08/2025 9:55 AM EDT [facility] MCH 31.8 27.0 - 33.0 pg 01/08/2025 9:55 AM EDT [facility] MCHC 33.1 32.0 - 36.0 g/dL 01/08/2025 9:55 AM EDT [facility] RDW 14.2 11.0 - 15.0 % 01/08/2025 9:55 AM EDT [facility] Platelets 139(L) 140 - 400 10*3/uL 01/08/2025 9:55 AM EDT [facility] MPV 12.7(H) 7.5 - 12.5 fL 01/08/2025 9:55 AM EDT [facility] Neutrophil % 70.6 % 01/08/2025 9:55 AM EDT [facility] Immature Grans % 0.5 0.0 - 0.9 % 01/08/2025 9:55 AM EDT [facility] Lymphocyte % 17.4 % 01/08/2025 9:55 AM EDT [facility] Monocyte % 6.9 % 01/08/2025 9:55 AM EDT [facility] Eosinophil % 4.1 % 01/08/2025 9:55 AM EDT [facility] Basophil % 0.5 % 01/08/2025 9:55 AM EDT [facility] Neutrophil # 2.75 1.50 - 7.80 10*3/uL 01/08/2025 9:55 AM EDT [facility] Immature Grans # <0.03 <=0.03 10*3/uL 01/08/2025 9:55 AM EDT [facility] Lymphocyte # 0.70(L) 0.85 - 3.90 10*3/uL 01/08/2025 9:55 AM EDT [facility] Monocyte # 0.30 0.20 - 0.95 10*3/uL 01/08/2025 9:55 AM EDT [facility] Eosinophil # 0.20 0.02 - 0.50 10*3/uL 01/08/2025 9:55 AM EDT [facility] Basophil # <0.03 0.00 - 0.20 10*3/uL 01/08/2025 9:[address] [facility] nRBC % 0.0 /100 WBCs 01/08/2025 9:55 AM EDT [facility] nRBC # <0.01 <0.01 10*3/uL 01/08/2025 9:55 AM EDT [facility] Blood Structure of peripheral vein / Unknown Venipuncture / Unknown 01/08/2025 9:28 AM EDT 01/08/2025 9:42 AM EDT us Yasmin Ho MD LAB BLOOD ORDERABLES Final R esult [facility] [address] [place] [address], [place] * Protime-INR (01/08/2025 9:28 AM EDT) PT 11.9 9.6 - 12.4 Seconds 01/08/2025 10:14 AM EDT [facility] INR 1.1 0.9 - 1.1 01/08/2025 10:14 AM EDT [facility] Comment:The optimal therapeu tic INR range for patients treated with Vitamin K antagonists (VKAS, e.g., Warfarin) is 2.0 to 3.5. Discuss the desired range with your doctor/care team. Blood Structure of peripheral vein / Unknown Venipuncture / Unknown 01/08/2025 9:28 AM EDT 01/08/2025 9:42 AM EDT us Yasmin Ho MD LAB BLOOD ORDERABLES Final R esult [facility] [address] [place] [address], [place] * (ABNORMAL) Hepatic Function Panel (01/08/2025 9:28 AM EDT) Total Protein 6.3 6.0 - 8.0 g/dL 01/08/2025 10:29 AM EDT [facility] Albumin 3.2(L) 3.5 - 5.2 g/dL 01/08/2025 10:29 AM EDT [facility] [employer] [facility] Globulin, Total 3.1 2.1 - 4.2 g/dL 01/08/2025 10:29 AM EDT [facility] [facility] Bilirubin, Total 7.0(H) 0.2 - 1.2 mg/dL 01/08/2025 10:29 AM EDT [facility] [employer] [facility] Bilirubin, Direct 5.4(H) <=0.4 mg/dL 01/08/2025 10:29 AM EDT [facility] [employer] [facility] Alkaline Phosphatase 966(H) 35 - 129 U/L 01/08/2025 10:29 AM EDT [facility] [employer] [facility] AST 133(H) 10 - 40 U/L 01/08/2025 10:29 AM EDT [facility] [employer] [facility] ALT 109(H) 10 - 40 U/L 01/08/2025 10:29 AM EDT [facility] [employer] [facility] Bilirubin, Indirect 1.60(H) <=0.70 mg/dL 01/08/2025 10:29 AM EDT [facility] A/G Ratio 1.0(L) 1.5 - 3.0 01/08/2025 10:29 AM EDT [facility] Blood Structure of peripheral vein / Unknown Venipuncture / Unknown 01/08/2025 9:28 AM EDT 01/08/2025 9:44 AM EDT us Yasmin Ho MD LAB BLOOD ORDERABLES Final R esult [facility] [address] [place] [address], * (ABNORMAL) Basic Metabolic Panel (01/08/2025 9:28 AM EDT) NA 141 135 - 145 mmol/L 01/08/2025 10:29 AM EDT [facility] K 3.9 3.5 - 5.3 mmol/L 01/08/2025 10:29 AM EDT [facility] Cl 112(H) 98 - 107 mmol/L 01/08/2025 10:29 AM EDT [facility] CO2 19(L) 22 - 32 mmol/L 01/08/2025 10:29 AM EDT [facility] BUN 12 7 - 23 mg/dL 01/08/2025 10:29 AM EDT [facility] Creatinine 0.52 0.50 - 1.20 mg/dL 01/08/2025 10:29 AM EDT [facility] Glucose 149(H) 65 - 99 mg/dL 01/08/2025 10:29 AM EDT [facility] Calcium 8.6 8.6 - 10.5 mg/dL 01/08/2025 10:29 AM EDT [facility] Anion Gap 10 5 - 15 01/08/2025 10:29 AM EDT [facility] eGFR >90 >=60 mL/min/1. 73m2 01/08/2025 10:29 AM EDT [facility] Comment:The estimated glomer ular [...] R esult Performing Organization Address [facility] Co de Phone Number [facility] [address] [place] [id number], [place] * IMAGING - SCANNED (01/07/2025 3:53 PM EDT) Anatomical Region Laterality Modality Other us Unknown Provider MD SCANNED PROCEDURES Final Res ult * POCT Glycosylated Hemoglobin (HGB A1C), interfaced (11/14/2024 7:40 AM EST) Hemoglobin A1C, POCT 4.2 <=5.6 % 11/14/2024 8:12 AM EST [facility] Comment: A1C Recommendation for Non- Adults with Diabetes: <7.0% ADA 2011 Standards of Medical Care in Diabetes Blood 11/14/2024 7:40 AM EST 11/14/2024 8:12 AM EST us Paola Tolentino NP LAB POCT ORDERABLES - DEVICE Final Result Performing Organization Address [facility] Co de Phone Number [facility] [address] [place] [address], [place] * Microalbumin, Random Urine with Creatinine (04/26/2024 4:22 PM EDT) Microalbumin, Urine <2.0 mg/dL 04/26/2024 5:20 PM EDT [facility] Creatinine, Urine 69 15 - 278 mg/dL 04/26/2024 5:20 PM EDT [facility] [employer] [facility] Microalb/Creat Ratio, Random Urine 04/26/2024 5:20 PM EDT [facility] Comment: < 1.0 mcg/mgCr Microalbumin Reference Range: Normal ? <30 mcg/mg Creatinine Microalbuminuria ? 30-300 mcg/mg Creatinine Clinical Albuminuria >300 mcg/mg Creatinine Reference: ADA Guideline. Diabetes Care. 2004;27 (suppl 1) Urine Voided urine specimen / Unknown Non-Blood Collection / Unknown 04/26/2024 4:22 PM EDT 04/26/2024 4:35 PM EDT us Natasha Kramer MD LAB URINE ORDERABLES Final Resul t [facility] [address] [place] [address], * Hepatitis C Antibody w/Reflex to PCR (09/20/2023 12:40 PM EST) Pathologist [facility] Hepatitis C Antibody NON-REACT VIVEK NON-REACT VIVEK 09/21/2023 6:41 AM EST [facility] Comment: HCV antibody was non-reactive. There is no laboratory evidence of HCV infection. In most cases, no further action is required. However, if recent HCV exposure is suspected, a test for HCV RNA (test code 12940) is suggested. For additional information please refer to http://education.[employer]/faq/BWR73o1 (This link is being provided for informational/ educational purposes only.) Blood Structure of peripheral vein / Unknown Venipuncture / Unknown 09/20/2023 12:40 PM EST 09/20/2023 1:07 PM EST Narrative [facility] - 09/21/2023 6:41 AM EST [facility] Received Date: us Yasmin Ho MD LAB BLOOD ORDERABLES Final R esult [facility] [address] [facility] [address], [place] [address], [place] [phone] [facility] [address] [facility] [address], [place] [address], [place] [phone] from Last 3 Months or Most Recently Relevant to Health Maintenance Insurance Advance Directives Documents on File Type Date Recorded Patient Ct Scan Technician Expl anation Health Care Proxy 10/26/2023 12:55 PM 10-10 Advance Directive 01/22/2014 12:00 AM Michael mahoney Care Directives Advance Directive 04/03/2010 12:00 AM luba begum Dec Making (Adv.Dir) * Presumed Full Code (Latest Code Status on File) Date Activated Date Inactivated Comments 05/15/2024 12:15 PM 05/16/2024 2:39 AM Care Teams Record Librarian Relationship Specialty Start Date End Date Sammie Maharaj [address] [place] [id number] PCP - General Family Medicine 05/15/18"
--- OUTSIDE RECORDS SUMMARY | 2025-02-14 07:27 | XMS_ITS | Clinical Summary ---
Demographics Address [address] [facility] [address] [place] [address] Home Phone Mobile Phone Preferred Language Mohawk; Castilian Marital Status Single Uatsdin Affiliation Unknown Race Unknown Ethnic Group Unknown Author Organization [facility] Address [address] [place] [address] Support Name Relationship Address Phone Orion Rubio Daughter [address] [facility] [address] [place] [address] Care Team Providers Care Fast Food Crew Lead Name Role Phone NickoKenney thompsongus Beckett Primary Care Provider [phone]- [phone] Allergies Active Allergy Reactions Criticality Noted Date [...] Capsule(s) By Mouth Daily 08/26/2023 Active [facility] [place] Lite meter TEST BLOOD SUGAR THREE TIMES DAILY 10/14/2023 Active [facility] [place] 2 Agency misc 10/19/2023 Activ e [employer]Style [place] 2 [...] 8 capsule 04/30/2024 Active [employer] [place] 3 Agency misc Use to monitor blood sugars. E11.9 [...] total) by mouth 5 times a day. 11672 mL 01/08/2025 01/09/20 26 Active Active Problems [...] from 18-14 by endo 04/2024 Seen by [facility] endocrinology 04/18/24 Hemoglobin A1c is falsely [...] approval for her to upgrade to the [employer] charlotte 3 CGM. BPPV (benign paroxysmal positional [...] Type Department Care Team Description 02/14/2025 Refill [facility] Liver Transplant Services [address] [place] [address] 45685 Yasmin Ho MD 02/13/2025 Orders Only [facility] Transplant Department [address] [place] [address] 01868 Katy Boateng, ERVIN Cryptogenic cirrhosis (HCC) (Primary Dx) 02/12/2025 Telephone [facility] Transplant Department [address] [place] [address] 97328 Katy Boateng, ERVIN 01/29/2025 Results Follow-Up [facility] Liver Transplant Services [address] [place] [address] 39037 Denae Johnson RN 01/29/2025 Abstract [facility] Transplant Department [address] [place] [address] 44599 Yasmin Ho MD 01/24/2025 Telephone [facility] Transplant Department [address] [place] [address] 20076 Katy Boateng, ERVIN 01/14/2025 Orders Only [facility] Transplant Department [address] [place] [address] 53388 Katy Boateng, ERVIN 01/14/2025 Telephone [facility] Transplant Department [address] [place] [address] 02493 Katy Boateng, ERVIN 01/10/2025 Results Follow-Up [facility] Liver Transplant Services [address] [place] [address] 76206 Katy Boateng, ERVIN 01/09/2025 Results Follow-Up [facility] Liver Transplant Services [address] [place] [address] 23048 Katy Boateng, RN 01/09/2025 Orders Only [facility] Transplant Department [address] [place] [address] 19756 Lola Anthony MD 01/09/2025 Telephone [facility] Transplant Department [address] [place] [address] 32208 Katy Boateng, ERVIN 01/08/2025 8:00 AM EDT Follow-Up [facility] Liver Transplant Services [address] [place] [address] Yasmin Ho MD Cryptogenic cirrhosis (HCC) (Primary Dx) 01/08/2025 Orders Only [facility] Transplant Department [address] [place] [address] 21672 Katy Boateng RN Cryptogenic cirrhosis (HCC) (Primary Dx) 01/08/2025 Results Follow-Up [facility] Liver Transplant Services [address] [place] [address] Katy Boateng RN 01/08/2025 Orders Only [facility] Transplant Department [address] [place] [address] 97117 Katy Boateng RN Cryptogenic cirrhosis (HCC) (Primary Dx) 01/07/2025 Orders Only [facility] - External Imaging [address] [place] [address] 43835 Radiology, External 01/04/2025 Orders Only [facility] Transplant Department [address] [place] [address] 57989 Katy Boateng RN Cryptogenic cirrhosis (Primary Dx) 01/04/2025 Orders Only [facility] Transplant Department [address] [place] [address] 46170 Katy Boateng RN Cryptogenic cirrhosis (Primary Dx) 12/27/2024 Abstract [facility] Transplant Department [address] [place] [address] 03900 Yasmin Ho MD 12/21/2024 Orders Only [facility] Interventional Radiology [address] [place] [address] 49471 Mateusz Wilkinson DO 12/21/2024 Orders Only [facility] Transplant Department [address] [place] [address] 09992 Katy Boateng RN Cryptogenic cirrhosis (Primary Dx) 12/17/2024 Refill [facility] Building Diabetes Clinic [address] [place] [address] City Superintendent: Kaylee Rodriguez NP 12/17/2024 Telephone [facility] Transplant Department [address] [place] [address] 44316 Katy Boateng RN 12/17/2024 Orders Only [facility] Transplant Department [address] [place] [address] 29564 Katy Boateng RN Cryptogenic cirrhosis (Primary Dx) 12/14/2024 Orders Only [facility] Transplant Department [address] [place] [address] 62231 Katy Boateng RN Cryptogenic cirrhosis (Primary Dx) 12/14/2024 Results Follow-Up [facility] Liver Transplant Services [address] [place] [address] 62869 Katy Boaetng RN 12/13/2024 Abstract [facility] Transplant Department [address] [place] [address] 11267 Yasmin Ho MD 12/10/2024 Orders Only [facility] Transplant Department [address] [place] [address] 74130 Katy Boateng RN Cryptogenic cirrhosis (Primary Dx) 12/04/2024 Telephone [facility] Transplant Department [address] [place] [address] 55517 Katy Boateng RN 12/04/2024 Orders Only [facility] Transplant Department [address] [place] [address] 23315 Katy Boateng RN Cryptogenic cirrhosis (Primary Dx); Liver disease 11/28/2024 Telephone [facility] Transplant Department [address] [place] [address] 65732 Katy Boateng RN from Last 3 Months Immunizations Immunization Administration [...] Description 03/22/2025 3:30 PM EDT Office Visit [facility] Building Diabetes Clinic [address] [place] [address] City Superintendent: Natasha Rubalcava MD [address] [place] [address] 04/09/2025 9:00 AM EDT Follow-Up [facility] Liver Transplant Services [address] [place] [address] Yasmin Ho MD [address] [place] [address] 076[address] 07/17/2025 8:00 AM EDT Office Visit [facility] Diabetes Clinic [address] [place] [address] City Superintendent: Paola Vance USER EXPERIENCE TEAM LEAD [address] [place] [address] 08/06/2025 8:00 AM EDT Office Visit [facility] Neurology Clinic [address] [place] [address] 79987 Manuel Carpenter PA [address] [place] [address] 0[address] Health Maintenance Due Date Last Done Comments [...] time period is included. Sodium 143 mmol/L [facility] Potassium 3.0 [facility] Chloride 116 [facility] Carbon Dioxide 20 [facility] Glucose 153 [facility] BUN 13 mg/dL [facility] Creatinine 0.52 mg/dL [facility] Calcium 8.6 mg/dL [facility] Total Protein 5.9 g/dL [facility] Albumin 2.8 g/dL [facility] Bilirubin, Total 7.0 mg/dL [facility] Bilirubin, Direct 5.6 mg/dL [facility] Alkaline Phosphatase 942 U/L [facility] AST 112 U/L [facility] ALT 91 U/L [facility] INR 1.40 [facility] 01/25/2025 7:34 AM EDT us Yasmin Ho MD LAB BLOOD ORDERABLES Final R esult [facility] [address] [place] [address] * AFP Tumor Marker (01/08/2025 9:29 AM EDT) [facility] Alpha Fetoprotein, Tumor Marker 3.6 ng/mL 01/10/2025 7:34 AM EDT [facility] Comment: Reference Range: ?? <6.1 The use of AFP as a tumor marker in females is not recommended. This test was performed using the Magdiel [place] chemiluminescent method. Values obtained from different assay methods cannot be used interchangeably. AFP levels, regardless of value, should not be interpreted as absolute evidence of the presence or absence of disease. Blood Structure of peripheral vein / Unknown Venipuncture / Unknown 01/08/2025 9:29 AM EDT 01/08/2025 9:42 AM EDT [facility] 01/10/2025 7:34 AM EDT [facility] Received Date: Yasmin Ho MD LAB BLOOD ORDERABLES Final R esult [facility] [address] [facility] [address] [facility], [place] [address], [facility] [address] [facility] [address] [facility], [place] [address], * (ABNORMAL) CBC Auto Differential (01/08/2025 9:28 AM EDT) [facility] WBC 3.9 3.8 - 10.8 10*3/uL 01/08/2025 9:55 AM EDT [facility] RBC 3.77(L) 3.80 - 5.10 10*6/uL 01/08/2025 9:55 AM EDT [facility] Hemoglobin 12.0 11.7 - 15.5 g/dL 01/08/2025 9:55 AM EDT [facility] Hematocrit 36.2 35.0 - 45.0 % 01/08/2025 9:55 AM EDT [facility] MCV 96.0 80.0 - 100.0 fL 01/08/2025 9:55 AM EDT [facility] MCH 31.8 27.0 - 33.0 pg 01/08/2025 9:55 AM EDT [facility] MCHC 33.1 32.0 - 36.0 g/dL 01/08/2025 9:55 AM EDT [facility] RDW 14.2 11.0 - 15.0 % 01/08/2025 9:55 AM EDT [facility] Platelets 139(L) 140 - 400 10*3/uL 01/08/2025 9:55 AM EDT [facility] MPV 12.7(H) 7.5 - 12.5 fL 01/08/2025 9:55 AM EDT [facility] Neutrophil % 70.6 % 01/08/2025 9:55 AM EDT [facility] Immature Grans % 0.5 0.0 - 0.9 % 01/08/2025 9:55 AM EDT [facility] Lymphocyte % 17.4 % 01/08/2025 9:55 AM EDT [facility] Monocyte % 6.9 % 01/08/2025 9:55 AM EDT [facility] Eosinophil % 4.1 % 01/08/2025 9:55 AM EDT [facility] Basophil % 0.5 % 01/08/2025 9:55 AM EDT [facility] Neutrophil # 2.75 1.50 - 7.80 10*3/uL 01/08/2025 9:55 AM EDT [facility] Immature Grans # <0.03 <=0.03 10*3/uL 01/08/2025 9:55 AM EDT [facility] Lymphocyte # 0.70(L) 0.85 - 3.90 10*3/uL 01/08/2025 9:55 AM EDT [facility] Monocyte # 0.30 0.20 - 0.95 10*3/uL 01/08/2025 9:55 AM EDT [facility] Eosinophil # 0.20 0.02 - 0.50 10*3/uL 01/08/2025 9:55 AM EDT [facility] Basophil # <0.03 0.00 - 0.20 10*3/uL 01/08/2025 9:55 AM EDT [facility] nRBC % 0.0 /100 WBCs 01/08/2025 9:55 AM EDT [facility] nRBC # <0.01 <0.01 10*3/uL 01/08/2025 9:55 AM EDT [facility] Blood Structure of peripheral vein / Unknown Venipuncture / Unknown 01/08/2025 9:28 AM EDT 01/08/2025 9:42 AM EDT us Yasmin Ho MD LAB BLOOD ORDERABLES Final R esult [facility] [address] [place] [address], * Protime-INR (01/08/2025 9:28 AM EDT) PT 11.9 9.6 - 12.4 Seconds 01/08/2025 10:14 AM EDT [facility] INR 1.1 0.9 - 1.1 01/08/2025 10:14 AM EDT [facility] [facility] Comment:The optimal therapeu tic INR range for patients treated with Vitamin K antagonists (VKAS, e.g., Warfarin) is 2.0 to 3.5. Discuss the desired range with your doctor/care team. Blood Structure of peripheral vein / Unknown Venipuncture / Unknown 01/08/2025 9:28 AM EDT 01/08/2025 9:42 AM EDT us Yasmin Ho MD LAB BLOOD ORDERABLES Final R esult [facility] [address] [place] [address], * (ABNORMAL) Hepatic Function Panel (01/08/2025 9:28 AM EDT) Total Protein 6.3 6.0 - 8.0 g/dL 01/08/2025 10:29 AM EDT [facility] Albumin 3.2(L) 3.5 - 5.2 g/dL 01/08/2025 10:29 AM EDT [facility] Globulin, Total 3.1 2.1 - 4.2 g/dL 01/08/2025 10:29 AM EDT [facility] [employer] [facility] Bilirubin, Total 7.0(H) 0.2 - 1.2 mg/dL 01/08/2025 10:29 AM EDT [facility] Bilirubin, Direct 5.4(H) <=0.4 mg/dL 01/08/2025 10:29 AM EDT [facility] Alkaline Phosphatase 966(H) 35 - 129 U/L 01/08/2025 10:29 AM EDT [facility] AST 133(H) 10 - 40 U/L 01/08/2025 10:29 AM EDT [facility] ALT 109(H) 10 - 40 U/L 01/08/2025 10:29 AM EDT [facility] [facility] Bilirubin, Indirect 1.60(H) <=0.70 mg/dL 01/08/2025 10:29 AM EDT [facility] [facility] A/G Ratio 1.0(L) 1.5 - 3.0 01/08/2025 10:29 AM EDT [facility] Blood Structure of peripheral vein / Unknown Venipuncture / Unknown 01/08/2025 9:28 AM EDT 01/08/2025 9:44 AM EDT us Yasmin Ho MD LAB BLOOD ORDERABLES Final R esult [facility] [address] [place] [address], [place] * (ABNORMAL) Basic Metabolic Panel (01/08/2025 9:28 AM EDT) NA 141 135 - 145 mmol/L 01/08/2025 10:29 AM EDT [facility] K 3.9 3.5 - 5.3 mmol/L 01/08/2025 10:29 AM EDT [facility] Cl 112(H) 98 - 107 mmol/L 01/08/2025 10:29 AM EDT [facility] [facility] CO2 19(L) 22 - 32 mmol/L 01/08/2025 10:29 AM EDT [facility] BUN 12 7 - 23 mg/dL 01/08/2025 10:29 AM EDT [facility] Creatinine 0.52 0.50 - 1.20 mg/dL 01/08/2025 10:29 AM EDT [facility] Glucose 149(H) 65 - 99 mg/dL 01/08/2025 10:29 AM EDT [facility] Calcium 8.6 8.6 - 10.5 mg/dL 01/08/2025 10:29 AM EDT [facility] Anion Gap 10 5 - 15 01/08/2025 10:29 AM EDT [facility] eGFR >90 >=60 mL/min/1. 73m2 01/08/2025 10:29 AM EDT [facility] Comment:The estimated glomer ular [...] ORDERABLES Final R esult Performing Organization Address [facility]/ZIP Co de Phone Number [facility] [address] [place] [address], [place] * IMAGING - SCANNED (01/07/2025 3:53 PM EDT) Anatomical Region Laterality Modality Other us Unknown Provider MD SCANNED PROCEDURES Final Res ult * POCT Glycosylated Hemoglobin (HGB A1C), interfaced (11/14/2024 7:40 AM EST) Hemoglobin A1C, POCT 4.2 <=5.6 % 11/14/2024 8:12 AM EST [facility] Comment: A1C Recommendation for Non- Adults with Diabetes: <7.0% ADA 2011 Standards of Medical Care in Diabetes Blood 11/14/2024 7:40 AM EST 11/14/2024 8:12 AM EST us Paola Tolentino NP LAB POCT ORDERABLES - DEVICE Final Result Performing Organization Address [facility]/ZIP Co de Phone Number [facility], [facility] [address] [place] [address], [place] * Microalbumin, Random Urine with Creatinine (04/26/2024 4:22 PM EDT) Microalbumin, Urine <2.0 mg/dL 04/26/2024 5:20 PM EDT [facility] Creatinine, Urine 69 15 - 278 mg/dL 04/26/2024 5:20 PM EDT [facility] Microalb/Creat Ratio, Random Urine 04/26/2024 5:20 PM EDT [facility] Comment: < 1.0 mcg/mgCr Microalbumin Reference Range: Normal ? <30 mcg/mg Creatinine Microalbuminuria ? 30-300 mcg/mg Creatinine Clinical Albuminuria >300 mcg/mg Creatinine Reference: ADA Guideline. Diabetes Care. 2004;27 (suppl 1) Urine Voided urine specimen / Unknown Non-Blood Collection / Unknown 04/26/2024 4:22 PM EDT 04/26/2024 4:35 PM EDT us Natasha Kramer MD LAB URINE ORDERABLES Final Resul t [facility] [address] [place] [address], * Hepatitis C Antibody w/Reflex to PCR (09/20/2023 12:40 PM EST) Hepatitis C Antibody NON-REACT VIVEK NON-REACT VIVEK 09/21/2023 6:41 AM EST [facility] Comment: HCV antibody was non-reactive. There is no laboratory evidence of HCV infection. In most cases, no further action is required. However, if recent HCV exposure is suspected, a test for HCV RNA (test code 82837) is suggested. For additional information please refer to http://education.Art-Exchange/faq/VAU66d0 (This link is being provided for informational/ educational purposes only.) Blood Structure of peripheral vein / Unknown Venipuncture / Unknown 09/20/2023 12:40 PM EST 09/20/2023 1:07 PM EST Narrative [facility] - 09/21/2023 6:41 AM EST [facility] Received Date: us Yasmin Ho MD LAB BLOOD ORDERABLES Final R esult [facility] [address] [facility], [place] [address], [place] [phone] [facility] [facility] [address], [place] [address], [place] [phone] from Last 3 Months or Most Recently Relevant to Health Maintenance Insurance Advance Directives Documents on File Type Date Recorded Patient Zoology Technical Officer Expl anation Health Care Proxy 10/26/2023 12:55 PM 10-10 Advance Directive 01/22/2014 12:00 AM Advsylwia mahoney Care Directives Advance Directive 04/03/2010 12:00 AM luba begum Dec Making (Adv.Dir) * Presumed Full Code (Latest Code Status on File) Date Activated Date Inactivated Comments 05/15/2024 12:15 PM 05/16/2024 2:39 AM Care Teams Fast Food Crew Lead Relationship Specialty Start Date End Date Nicko, Sammie Beckett [address] [place] [phone] PCP - General Family Medicine 05/15/18
[2025-02-14 07:39] LABS: MANUAL DIFF FLAG NO
[2025-02-14 07:58] LABS: Basophils Percent Auto 0.4 % (0-2); Eosinophils Absolute Auto 0.2 X10*3/uL (0.0-0.4); Eosinophils Percent Auto 4.4 % (0-4); Hematocrit 34.6 % (37.0-47.0); Hemoglobin 11.7 g/dl (12.0-16.0); Imm Gran Abs Auto 0.02 X10*3/uL (0.00-0.03); Imm Gran Pct Auto 0.4 % (0.0-0.4); Lymphocytes Absolute Auto 0.7 X10*3/uL (1.2-4.9); Lymphocytes Percent Auto 15.6 % (20-40); Mean Corpuscular HGB Conc 33.8 g/dl (31.0-35.0); Mean Corpuscular Hemoglobin 31.5 pg (27.0-33.0); Mean Platelet Volume 12.7 fL (9.4-12.3); Monocytes Absolute Auto 0.3 X10*3/uL (0.1-1.2); Monocytes Percent Auto 6.9 % (2-11); Neutrophils Absolute Auto 3.4 x10*3/uL (2.0-8.3); Neutrophils Percent Auto 72.3 % (45-73); Platelet Count 157 X10*3/uL (160-400); Red Blood Count 3.72 X10*6/uL (4.20-5.50); Red Cell Distribution Width 14.3 % (11.0-16.0); White Blood Count 4.8 X10*3/uL (4.8-10.8)
[2025-02-14 08:01] LABS: INTERNATIONAL NORM RATIO 1.3 (0.9-1.1); Prothrombin Time 14.9 SEC (10.9-12.4)
[2025-02-14 08:32] LABS: Alanine Aminotransferase 100 U/L (0-31); Albumin Level 3.1 g/dL (3.5-5.0); Alkaline Phosphatase 918 U/L (39-117); Anion Gap 12 (12-20); Aspartate Amino Transferase 130 U/L (5-31); Bilirubin Direct 7.1 mg/dL (0.0-0.5); Bilirubin Total 8.8 mg/dL (0.0-1.0); Blood Urea Nitrogen 14 mg/dL (9-16); Calcium 8.8 mg/dL (8.4-10.2); Carbon Dioxide 19 mmol/L (22-29); Chloride 113 mmol/L (96-108); Estimated Glomerular Filt Rate > 60; Glucose Random 166 mg/dL (60-115); Sodium 141 mmol/L (135-145); Total Protein 6.2 g/dL (6.5-8.0)
[2025-02-14 08:43] LABS: Vitamin D 25-OH Total 9.7 ng/mL (>30)
[2025-02-14 08:51] LABS: Folate 9.4 ng/mL (> or = 4.0); Vitamin B12 1698 pg/mL (200-900)
[2025-02-18 21:49] LABS: Vitamin A 35 mcg/dL (38-98)
[2025-02-19 02:08] LABS: Alpha-Tocopherol 6.1 mg/L (5.7-19.9); Beta-Gamma Tocopherol <1.0 mg/L (<=4.3)
[2025-02-21 06:18] LABS: Vitamin B1 10 nmol/L (8-30)
== END 2025-02-14 07:25 | disposition home or self-care (01) ==
LOC: HO.LAB 07:24
PROVIDERS: PCP Family Medicine; Visit Provider Internal Medicine
DX: K74.69 Other cirrhosis of liver (principal)
CPT/HCPCS: 36415; 80048; 80076; 82306; 82607; 82746; 84425; 84446; 84590; 85025; 85610

== ENCOUNTER 2025-03-11 07:28 | Outpatient (REF) | payer OTHER, SELFPAY ==
--- OUTSIDE RECORDS SUMMARY | 2025-03-11 07:30 | XMS_ITS | Encounter Summary ---
Demographics Address [address] [facility] [address] [place] [address] Home Phone Mobile Phone Preferred Language Nigerien; Castilian Marital Status Single Yazidi Affiliation Unknown Race Unknown Ethnic Group Unknown Author Organization [facility] Address [address] [place] [address] Support Name Relationship Address Phone Orion Rubio Daughter [address] [facility] [address] [place] [address] Care Team Providers Care Battery Assembler Dry Cell Name Role Phone Sammie Maharaj Primary Care Provider [phone] Encounter Details Date Type Department Care Team (Late st Contact Info) Description 03/06/2025 Telephone [facility] Transplant Department [address] [place] [address] Katy Boateng RN Social History Tobacco Use [...] Telephone Encounter - Katy Boateng RN - 03/06/2025 4:13 PM EDT Using diplomatic interpreter, Nick #[phone], called and let patient know we need her to get labs the first week of March to update her MELD score. Labs sent to [facility] documented in this encounter Plan of Treatment Upcoming Encounters Date Type Department Care Team (Late st Contact Info) Description 03/22/2025 3:30 PM EDT Office Visit [facility] Building Diabetes Clinic [address] [place] [address] Relationship Specialist: Natasha Rubalcava MD [address] [place] [address] 04/09/2025 9:00 AM EDT Follow-Up [facility] Liver Transplant Services [address] [place] [address] Yasmin Ho MD [address] [place] [address] 07/17/2025 8:00 AM EDT Office Visit [facility] Diabetes Clinic [address] [place] [address] Relationship Specialist: Paola Vance, BUILDING ENGINEER [address] [place] [address] 08/06/2025 8:00 AM EDT Office Visit [facility] Neurology Clinic [address] [place] [address] Manuel Carpenter PA [address] [place] [address] documented as of this encounter Visit Diagnoses Not on filedocumented in this encounter Care Teams Battery Assembler Dry Cell Relationship Specialty Start Date End Date Sammie Maharaj: [phone] [address] [place] [address] PCP - General Family Medicine 05/15/18 documented as of this encounter
[2025-03-11 07:41] LABS: MANUAL DIFF FLAG NO
[2025-03-11 08:15] LABS: Basophils Percent Auto 0.5 % (0-2); Eosinophils Absolute Auto 0.2 X10*3/uL (0.0-0.4); Eosinophils Percent Auto 4.2 % (0-4); Hematocrit 37.6 % (37.0-47.0); Hemoglobin 12.7 g/dl (12.0-16.0); Imm Gran Abs Auto 0.01 X10*3/uL (0.00-0.03); Imm Gran Pct Auto 0.2 % (0.0-0.4); Lymphocytes Absolute Auto 0.8 X10*3/uL (1.2-4.9); Lymphocytes Percent Auto 19.1 % (20-40); Mean Corpuscular HGB Conc 33.8 g/dl (31.0-35.0); Mean Corpuscular Hemoglobin 31.7 pg (27.0-33.0); Mean Corpuscular Volume 93.8 fL (80.0-98.0); Mean Platelet Volume 12.8 fL (9.4-12.3); Monocytes Absolute Auto 0.3 X10*3/uL (0.1-1.2); Monocytes Percent Auto 6.6 % (2-11); Neutrophils Percent Auto 69.4 % (45-73); Platelet Count 151 X10*3/uL (160-400); Red Blood Count 4.01 X10*6/uL (4.20-5.50); Red Cell Distribution Width 14.2 % (11.0-16.0); White Blood Count 4.3 X10*3/uL (4.8-10.8)
[2025-03-11 08:19] LABS: INTERNATIONAL NORM RATIO 1.1 (0.9-1.1); Prothrombin Time 12.9 SEC (10.9-12.4)
[2025-03-11 08:42] LABS: Alanine Aminotransferase 145 U/L (0-31); Alkaline Phosphatase 1109 U/L (39-117); Anion Gap 12 (12-20); Aspartate Amino Transferase 157 U/L (5-31); Bilirubin Direct 6.5 mg/dL (0.0-0.5); Bilirubin Total 8.8 mg/dL (0.0-1.0); Blood Urea Nitrogen 14 mg/dL (9-16); Calcium 8.6 mg/dL (8.4-10.2); Carbon Dioxide 17 mmol/L (22-29); Chloride 114 mmol/L (96-108); Estimated Glomerular Filt Rate > 60; Glucose Random 207 mg/dL (60-115); Potassium 3.3 mmol/L (3.3-5.1); Sodium 140 mmol/L (135-145); Total Protein 6.1 g/dL (6.5-8.0)
== END 2025-03-11 07:29 | disposition home or self-care (01) ==
LOC: HO.LAB 07:28
PROVIDERS: PCP Internal Medicine; Visit Provider Internal Medicine
DX: K74.69 Other cirrhosis of liver (principal)
CPT/HCPCS: 36415; 80048; 80076; 85025; 85610

== ENCOUNTER 2025-03-11 07:58 | Outpatient (RCR) | payer OTHER, SELFPAY | END 2025-04-11 14:25 | disposition home or self-care (01) | LOC: HO.PT 07:58 | PROVIDERS: PCP Family Medicine; Visit Provider Internal Medicine | DX: M70.61 Trochanteric bursitis, right hip (principal) | CPT/HCPCS: 97162 ==

== ENCOUNTER 2025-03-18 09:27 | Outpatient (REF) | payer OTHER, SELFPAY ==
[2025-03-18 09:37] LABS: MANUAL DIFF FLAG NO
--- OUTSIDE RECORDS SUMMARY | 2025-03-18 10:01 | XMS_ITS | Encounter Summary ---
Author Organization [employer] Address [address] [facility] 7t [place] [address] Care Team Providers Care Aids Social Worker Name Role Phone Sammie Maharaj MD Primary Care Provider [phone] Loyda Glaser RN Unavailable [phone] Yasmin Ho MD Unavailable [phone] Reason for Visit * Reason Comments Med Refill Encounter Details Date Type Department Care Team (Late st Contact Info) Description 11/13/2024 Refill [facility] [address] [place], [place] [phone] Sammie Maharaj MD [address] [place], [place] [phone] Tinea unguium Social History Tobacco Use Types [...] as of this encounter Plan of Treatment Not on file documented as of this encounter Visit Diagnoses Diagnosis Tinea unguium Dermatophytosis of nail documented in this encounter Additional Health Concerns Assessment Noted Time PHQ-9 Depression Total Score: 0 10/24/19 25 9:33 AM EST documented as of this encounter Care Teams Aids Social Worker Relationship Specialty Start Date End Date Sammie Maharaj MD [address] [place] [address] PCP - General Family Medicine 10/10/18 Loyda Glaser RN [address] [place] [address] Data Clerk Family Medicine 10/31/23 Yasmin Ho MD [address] [place] [address] Gastroenterology 08/29/[address] [facility] [address] [facility] [address] Neurology 08/29/24 Paola Tolentino NP [address] [address] Endocrinology 10/24/24 [facility] Psychology Psychology 12/19/24 documented as of this encounter
[2025-03-18 10:22] LABS: Basophils Percent Auto 0.5 % (0-2); Eosinophils Absolute Auto 0.1 X10*3/uL (0.0-0.4); Eosinophils Percent Auto 3.2 % (0-4); Hematocrit 36.2 % (37.0-47.0); Hemoglobin 12.3 g/dl (12.0-16.0); Imm Gran Abs Auto 0.02 X10*3/uL (0.00-0.03); Imm Gran Pct Auto 0.5 % (0.0-0.4); Lymphocytes Absolute Auto 0.6 X10*3/uL (1.2-4.9); Lymphocytes Percent Auto 15.8 % (20-40); Mean Corpuscular Hemoglobin 32.4 pg (27.0-33.0); Mean Corpuscular Volume 95.3 fL (80.0-98.0); Mean Platelet Volume 12.4 fL (9.4-12.3); Monocytes Absolute Auto 0.3 X10*3/uL (0.1-1.2); Monocytes Percent Auto 6.7 % (2-11); Neutrophils Percent Auto 73.3 % (45-73); Platelet Count 141 X10*3/uL (160-400); Red Cell Distribution Width 14.1 % (11.0-16.0); White Blood Count 4.1 X10*3/uL (4.8-10.8)
[2025-03-18 10:41] LABS: INTERNATIONAL NORM RATIO 1.2 (0.9-1.1); Prothrombin Time 13.5 SEC (10.9-12.4)
[2025-03-18 10:47] LABS: Alanine Aminotransferase 128 U/L (0-31); Albumin Level 3.2 g/dL (3.5-5.0); Alkaline Phosphatase 1001 U/L (39-117); Anion Gap 10 (12-20); Aspartate Amino Transferase 141 U/L (5-31); Blood Urea Nitrogen 15 mg/dL (9-16); Calcium 8.6 mg/dL (8.4-10.2); Carbon Dioxide 19 mmol/L (22-29); Chloride 116 mmol/L (96-108); Estimated Glomerular Filt Rate > 60; Glucose Random 89 mg/dL (60-115); Potassium 3.4 mmol/L (3.3-5.1); Sodium 142 mmol/L (135-145); Total Protein 6.2 g/dL (6.5-8.0)
[2025-03-19 12:48] LABS: Alpha Fetoprotein 3.6 ng/mL
== END 2025-03-18 09:28 | disposition home or self-care (01) ==
LOC: HO.LAB 09:27
PROVIDERS: PCP Family Medicine; Visit Provider Internal Medicine
DX: K74.69 Other cirrhosis of liver (principal)
CPT/HCPCS: 36415; 80053; 82105; 85025; 85610

== ENCOUNTER 2025-04-19 09:45 | Outpatient (REF) | payer OTHER, SELFPAY ==
--- OUTSIDE RECORDS SUMMARY | 2025-04-19 10:05 | XMS_ITS | Encounter Summary ---
Demographics Address [address] [facility] [address] [place] [address] Mobile Phone Home Phone Preferred Language South Korean; Castilian Marital Status Single Samaritan Affiliation Unknown Race Unknown Ethnic Group Unknown Author Organization [facility] Address [address] [place] [address] Support Name Relationship Address Phone Orion Rubio Daughter 17 [facility] [address] [place] [address] Care Team Providers Care Client Services Coordinator Name Role Phone Sammie Maharaj Primary Care Provider +1 [phone] Encounter Details Date Type Department Care Team (Late st Contact Info) Description 09/20/2023 Orders Only [facility] Interventional Radiology [address] [place] [address] Ricardo Reyez MD [address] [place] [address] Social History Tobacco Use Types Packs/Day Years [...] Care Team (Late st Contact Info) Description 06/21/2025 1:15 PM EDT Office Visit [facility] Dermatology Clinic 4th [address] [place] [address], [place] [phone] Fiberglass Quality Technician: Perlita Powers MD [address] [place] [address] 07/17/2025 8:00 AM EDT Office Visit [facility] [address] [place] [address] Fiberglass Quality Technician: Paola Vance NP [address] [place] [address] 08/06/2025 8:00 AM EDT Office Visit [facility] Neurology Clinic [address] [place] [address] Manuel Carpenter PA [address] [place] [address] 08/27/2025 9:00 AM EST Follow-[facility] Liver Transplant Services [address] [place] [address] Yasmin Ho MD [address] [place] [address] 09/23/2025 8:00 AM EST Office Visit [facility] [address] [place] [address] Fiberglass Quality Technician: Rocio Walden NP [address] [place] [address] 03/25/2026 9:30 AM EDT Office Visit [facility] [address] [place] [address] Fiberglass Quality Technician: Natasha Rubalcava MD [address] [place] [address] Scheduled Procedures Name Priority Associated Diagnoses Date/Ti me UPPER ENDOSCOPY WITH FOREIGN BODY REMOVAL WITH POSSIBLE MODERATE SEDATION Presence of pancreatic duct stent documented as of this encounter Visit Diagnoses Not on filedocumented in this encounter Care Teams Client Services Coordinator Relationship Specialty Start Date End Date Chase, Sammie Beckett [address] [place] [address] PCP - General Family Medicine 05/15/18 documented as of this encounter
--- OUTSIDE RECORDS SUMMARY | 2025-04-19 10:05 | XMS_ITS | Data Portability ---
Author Organization [facility] [employer] [facility], [facility] Address [address] [place] [address] Care Team Providers Care Director Of Services Name Role Phone [facility] OTHER [facility] OTHER Assessment No assessment recorded. Plan of [...] Name and Address Organization Details Recorded Time 59373 acetamino phen medicatio n Not available Not available Not available 12/07/2024 161 RxNorm Not Available [facility] - production 12:30:55 68800 latex environme nt,medica tion Not available Not available Not available 12/07/2024 17135 91 RxNorm Not Available [facility] - production [...] 2nd Gen Pen Needle 32 gauge x USE TO ADMINSTER INSULIN NIGHTLY active Not Available Not Available No t Available [employer] [place] 2 Sensor kit USE DIRECTED. CHANGE EVERY 14 DAYS active Not Available Not Available No t Available [employer] [place] 3 Bozrah active Not Available Not Available Not Available [employer] [place] 3 Plus Sensor device active Not Available Not Availabl e Not Available Vitals Date Recorded Heart rate Oxygen saturation Oxygen saturation in Arterial blood by Pulse oximetry Respiratory rate Body temperature Systolic And Diastolic Provider Name and Address Organization Details Last Updated DateTime 5 74 /min 98 % 98 % 18 /min 98.8 [degF] 110/62 mm[Hg] Not Available [facility] - production 5 18:33:29 Social History None recorded. Functional Status None recorded. Mental Status None recorded. Family History Nothing Reported. Medical History No medical history recorded. Gynecological HistoryNo gynecological history recorded. Obstetrics History GPAL:G 0 P 0 0 0 0 Past Encounters Encounter ID Performer Location Encounter Start Date Encounter Closed Date Diagnosis/Indication Diagnosis SNOMED-CT Code Diagnosis ICD10 Code Diagnosis Note [id number] Mi Chen MD Main - [facility] [address] [place] [phone] 12/14/2024 18:33:24 12/14/2024 20:52:08 Bilateral lower limb edema 286958608 R60.0 As noted, we were called to see this patient regarding concerns of LE swelling. Evaluation in the field was performed by my mill tender warm up colleague, as noted above, I provided real-time [...] Watson Member ID Guarantor Name 12/12/2024 1 [facility] - DOS ON OR AFTER 2023 - DUAL ELIGIBLE - PRISON OPTIONS AND ONE CARE (MEDICARE REPLACEMENT/ADV ANTAGE - HMO) Aubrie Mario [id number] Aubrie Mario Notes Date Note Type Note Provider Name and Address Organization Details Recorded Time 12/14/2024 text/html CRC Nurse Triage Notes (Kelsy Gonzalez): Reason For Request: Pt's daughter reporting swelling of both lower extremities> Chief Complaints: Extremity Swelling PMH: Depression, Diabetes Mellitus Type 2, Stroke PMH Reviewed at 12/14/2024 - 14:07 Allergies Reviewed at 12/14/2024 - 14:07 Pain Assessment: Level null out of 10 Comments: c/o bilateral lower leg swelling, denies SOB/chest pain No redness/open wounds: blood sugar as been normal. New problem w/ lower leg swelling. hx of CVA, left sided weakness/speech impairment Mobility not affected. No blood thinners/diuretics. In the hospital for ear infection- no active ABX info provided by daughter Marble Supervisor verified the name//address and phone number. Education provided on the response time and the Patient was advised to monitor reported s/s and seek emergency treatment if needed Home Energy Inspector Organization Information for Duncan Romero Business Legal Name: [employer]. Address: [address] [place] [address] [place] [address], Rn Interventional: Kris MUNOZ No.: [id number] Home Energy Inspector POC Test Results from Duncan Romero [facility] Blood Glucose Measurement (18:33:13) Blood Glucose: 230 mg/dL ................... ................... ................... ................... ................... ................... ................... ........ Home Energy Inspector Note From Duncan Romero: Arrived to find a 44-year-old Mongolian-speaking female in the apartment with daughter which [...] finished yesterday and level of fluoxetine that she s due to finish in two days. [...] in ankles or lower extremities. Contact of [facility] and discuss patient presentation, assessment, and vitals. Thought at this time is that the Annika s due to the short course of [...] ................... ................... ................... ................... ................... ................... ........ [facility] Consulted: Mi Chen ................... ................... ................... ................... ................... ................... ................... ........ Disposition: Fulfilled Mi Chen MD [address] [place] [address],[address], [place], [address], [facility] [facility] 12/14/2024 20:17:46 OBGyn Episode No OBEpisode recorded.
--- OUTSIDE RECORDS SUMMARY | 2025-04-19 10:05 | XMS_ITS | Patient Health Record ---
Author Organization [facility] Address [address] [place] [address] Care Team Providers Care Bracelet Maker Novelty Name Role Phone Sammie Maharaj MD Primary Care Provider Peggy vailable Varun Lou Unavailable [phone] Reason For Referral No Information Medications Medication SIG (Take, Route, Fr equency, Duration) Notes Start Date End Date Status Omeprazole 40mg 10/10/2024 10/10/2024 Ac tive Nadolol 40mg 10/10/2024 10/10/2024 Activ e Problems Problem Type SNOMED Code ICD Code Onset Dates Problem Status W/U Status Risk Notes Problem Anemia (503704918) Unspecified anemia (285.9) Active confirmed Problem Esophageal varices without bleeding (27480780) Esophageal varices without mention of bleeding (456.1) Active confirmed Problem Ascites (134387692) Ascites, other (789.59) Active confirmed Problem Liver function tests abnormal (396675488) Nonspecific abnormal results of liver function study (794.8) Active confirmed Plan Of Treatment Pending Test Test Name Order Date CHEM 7 PROFILE 07/16/2011 CHEM 7 PROFILE 09/15/2011 LIVER PROFILE 09/15/2011 CBC w DIFF 09/15/2011 CBC w DIFF 07/16/2011 PROTHROMBIN TIME (PT, INR) 09/15/2011 Insurance Providers Payer Name Payer Address Payer Phone Subscriber Number Group Number Insured Name Patient Relationship to Insured Coverage Start Date Coverage End Date MED[place] [address] [place] [phone] [id number] BROOK MARIA Self - patient is the insured Medical (General) History Medical History History ICD Code 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
--- OUTSIDE RECORDS SUMMARY | 2025-04-19 10:05 | XMS_ITS | Encounter Summary ---
Author Organization [employer] Address [address] [facility] 7t [place] [address] Care Team Providers Care Interactive Media Director Name Role Phone Sammie Maharaj MD Primary Care Provider [phone] Loyda Glaser RN Unavailable [phone] Yasmin Ho MD Unavailable Reason for Visit * Reason Comments Med Refill Encounter Details Date Type Department Care Team (Late st Contact Info) Description 11/13/2024 Refill [facility] [address] [place], [place] [phone] Sammie Maharaj MD [address] [place], [place] [phone] Tinea unguium Social History Tobacco Use Types [...] Care Team (Late st Contact Info) Description 06/17/2025 9:00 AM EDT Office Visit [facility] [address] [place] [address] Sammie Maharaj MD [address] [place] [address] documented as of this encounter Visit Diagnoses Diagnosis Tinea unguium Dermatophytosis of nail documented in this encounter Additional Health Concerns Assessment Noted Time PHQ-9 Depression Total Score: 0 10/24/19 25 9:33 AM EST documented as of this encounter Care Teams Interactive Media Director Relationship Specialty Start Date End Date Sammie Maharaj MD [address] [place] [address] PCP - General Family Medicine 10/10/18 Loyda Glaser RN [address] [place] [address] Supervisor Keymodule Assembly Family Medicine 10/31/23 Yasmin Ho MD [address] [place] [address] Gastroenterology 08/29/24 Manuel Carpenter PA [address] [phone] Neurology 08/29/24 Paola Tolentino NP [address] [address] Endocrinology 10/24/24 [facility] Psychology Psychology 12/19/24 documented as of this encounter
[2025-04-19 11:41] LABS: INTERNATIONAL NORM RATIO 1.1 (0.9-1.1); Prothrombin Time 12.3 SEC (10.9-12.4)
[2025-04-19 12:08] LABS: Alanine Aminotransferase 117 U/L (0-31); Albumin Level 3.3 g/dL (3.5-5.0); Alkaline Phosphatase 1039 U/L (39-117); Anion Gap 10 (12-20); Aspartate Amino Transferase 140 U/L (5-31); Blood Urea Nitrogen 14 mg/dL (9-16); Calcium 8.9 mg/dL (8.4-10.2); Carbon Dioxide 20 mmol/L (22-29); Chloride 111 mmol/L (96-108); Estimated Glomerular Filt Rate > 60; Potassium 3.3 mmol/L (3.3-5.1); Sodium 138 mmol/L (135-145); Total Protein 6.4 g/dL (6.5-8.0)
[2025-04-22 17:03] LABS: TS Negative Control Passed; TS Panel A 0; TS Panel B 2; TS Positive Control Passed; TSpotTB Negative (Negative)
== END 2025-04-19 09:46 | disposition home or self-care (01) ==
LOC: HO.HHCL 09:45
PROVIDERS: PCP Family Medicine; Visit Provider Family Medicine
DX: K72.10 Chronic hepatic failure without coma (principal); Z11.1 Encounter for screening for respiratory tuberculosis
CPT/HCPCS: 36415; 80053; 82248; 85610; 86481

== ENCOUNTER 2025-05-13 07:42 | Outpatient (REF) | payer OTHER, SELFPAY ==
--- OUTSIDE RECORDS SUMMARY | 2025-05-13 07:44 | XMS_ITS | Encounter Summary ---
Demographics Address [address] [facility] [address] [place] [address] Mobile Phone Home Phone Preferred Language Maldivian; Castilian Marital Status Single Mormon Affiliation Unknown Race Unknown Ethnic Group Unknown Author Organization [facility] Address [address] [place] [address] Support Name Relationship Address Phone Orion Rubio Daughter [address] [facility] [address] [place] [address] Care Team Providers Care Crossbow Maker Name Role Phone Sammie Maharaj Primary Care Provider [phone] Encounter Details Date Type Department Care Team (Late st Contact Info) Description 09/20/2023 Orders Only [facility] Interventional Radiology [address] [place] [address] Ricardo Reyez MD [address] [place] [address] Social History Tobacco Use Types Packs/Day Years [...] Upcoming Encounters Date Type Department Care Team (Latest Contact Info) Description 05/16/2025 10:50 AM EDT Hospital Encounter [facility] Endoscopy [address] [place] [address] Alejandro Quan [address] [place] [address] 05/16/2025 10:50 AM EDT Anesthesia Event [facility] Endoscopy [address] [place] [address] Dominik Sadler MD [address] [place] [address] 05/16/2025 10:50 AM EDT - 05/16/2025 11:15 AM EDT Surgery [facility] Endoscopy [address] [place] [address] Alejandro Quan Tavo [address] [place] [address] UPPER ENDOSCOPY WITH FOREIGN BODY REMOVAL WITH POSSIBLE MODERATE SEDATION [03009 (CPT )] 06/21/2025 1:15 PM EDT Office Visit [facility] Dermatology Clinic [address]th [address] [place] [address], [place] [phone] Employee Relations Representative: Perlita Powers MD [address] [place] [address] 07/17/2025 8:00 AM EDT Office Visit [facility] Diabetes Clinic [address] [place] [address] Employee Relations Representative: Paola Vance NP [address] [facility] [place] [address] 08/27/2025 9:00 AM EST [facility] Liver Transplant Services [address] [place] [address] Yasmin Ho MD [address] [place] [address] 09/23/2025 8:00 AM EST Office Visit [facility] Diabetes Clinic [address] [place] [address] Employee Relations Representative: Rocio Walden NP [address] [place] [address] 03/25/2026 9:30 AM EDT Office Visit [facility] Diabetes Clinic [address] [place] [address] Employee Relations Representative: Natasha Rubalcava MD [address] [place] [address] Scheduled Procedures Name Priority Associated Diagnoses Date/Ti me UPPER ENDOSCOPY WITH FOREIGN BODY REMOVAL WITH POSSIBLE MODERATE SEDATION Presence of pancreatic duct stent 05/16/2025 10:50 AM EDT documented as of this encounter Visit Diagnoses Not on filedocumented in this encounter Care Teams Crossbow Maker Relationship Specialty Start Date End Date Sammie Maharaj: [phone] [address] [place] [address] PCP - General Family Medicine 05/15/18 documented as of this encounter
--- OUTSIDE RECORDS SUMMARY | 2025-05-13 07:44 | XMS_ITS | Encounter Summary ---
Author Organization [employer] Address [address] [facility] 7t [place] [address] Care Team Providers Care Funding Analyst Name Role Phone Sammie Maharaj MD Primary Care Provider [phone] Loyda Glaser RN Unavailable [phone] Yasmin Ho MD Unavailable Reason for Visit * Reason Comments Med Refill Encounter Details Date Type Department Care Team (Late st Contact Info) Description 11/13/2024 Refill [facility] [address] [place], [place] [phone] Sammie Maharaj MD [address] [place], [place] [phone] Tinea unguium Social History Tobacco Use Types [...] Care Team (Late st Contact Info) Description 07/03/2025 9:30 AM EDT Office Visit [facility] [address] [place] [address] Sammie Maharaj MD [address] [place] [address] documented as of this encounter Visit Diagnoses Diagnosis Tinea unguium Dermatophytosis of nail documented in this encounter Additional Health Concerns Assessment Noted Time PHQ-9 Depression Total Score: 0 10/24/19 25 9:33 AM EST documented as of this encounter Care Teams Funding Analyst Relationship Specialty Start Date End Date Sammie Maharaj MD [address] [place] [address] PCP - General Family Medicine 10/10/18 Loyda Glaser RN [address] [place] [address] Tube Making Machine Operator Family Medicine 10/31/23 Yasmin Ho MD [address] [place] [address] Gastroenterology 08/29/24 Manuel Carpenter PA [address] [phone] Neurology 08/29/24 Paola Tolentino NP [address] [address] Endocrinology 10/24/24 [facility] Psychology Psychology 12/19/24 documented as of this encounter
--- OUTSIDE RECORDS SUMMARY | 2025-05-13 07:44 | XMS_ITS | Patient Health Record ---
Author Organization [facility] Address [address] [place] [address] Care Team Providers Care Mission Support Specialist Name Role Phone Sammie Maharaj MD Primary Care Provider Peggy vailable Varun Lou Unavailable [phone] Reason For Referral No Information Medications Medication SIG (Take, Route, Fr equency, Duration) Notes Start Date End Date Status Omeprazole 40mg 10/10/2024 10/10/2024 Ac tive Nadolol 40mg 10/10/2024 10/10/2024 Activ e Problems Problem Type SNOMED Code ICD Code Onset Dates Problem Status W/U Status Risk Notes Problem Anemia (362370969) Unspecified anemia (285.9) Active confirmed Problem Esophageal varices without bleeding (02651064) Esophageal varices without mention of bleeding (456.1) Active confirmed Problem Ascites (973805933) Ascites, other (789.59) Active confirmed Problem Liver function tests abnormal (470239200) Nonspecific abnormal results of liver function study [...] Start Date Coverage End Date MEDICAID OF [place] [address] [place] [id number] BROOK MARIA Self - patient is the insured Medical (General) History Medical History History ICD Code 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
[2025-05-13 07:52] LABS: MANUAL DIFF FLAG NO
[2025-05-13 08:13] LABS: Hematocrit 37.7 % (37.0-47.0); Hemoglobin 12.7 g/dl (12.0-16.0); Imm Gran Abs Auto 0.03 X10*3/uL (0.00-0.03); Imm Gran Pct Auto 0.6 % (0.0-0.4); Lymphocytes Absolute Auto 0.9 X10*3/uL (1.2-4.9); Mean Corpuscular HGB Conc 33.7 g/dl (31.0-35.0); Mean Corpuscular Hemoglobin 31.0 pg (27.0-33.0); Mean Corpuscular Volume 92.0 fL (80.0-98.0); NRBC Abs Auto 0.000 X10*3/uL (0.0-0.012); NRBC Pct Auto 0.0 /100WBC (0.0-0.2); Platelet Count 114 X10*3/uL (160-400); Red Blood Count 4.10 X10*6/uL (4.20-5.50); White Blood Count 5.4 X10*3/uL (4.8-10.8)
[2025-05-13 08:16] LABS: INTERNATIONAL NORM RATIO 1.2 (0.9-1.1); Prothrombin Time 13.9 SEC (10.9-12.4)
[2025-05-13 08:38] LABS: Alanine Aminotransferase 119 U/L (0-31); Albumin Level 3.3 g/dL (3.5-5.0); Alkaline Phosphatase 1041 U/L (39-117); Anion Gap 13 (12-20); Aspartate Amino Transferase 153 U/L (5-31); Blood Urea Nitrogen 15 mg/dL (9-16); Calcium 8.5 mg/dL (8.4-10.2); Carbon Dioxide 18 mmol/L (22-29); Chloride 114 mmol/L (96-108); Estimated Glomerular Filt Rate > 60; Potassium 3.2 mmol/L (3.3-5.1); Sodium 142 mmol/L (135-145); Total Protein 6.3 g/dL (6.5-8.0)
== END 2025-05-13 07:43 | disposition home or self-care (01) ==
LOC: HO.LAB 07:42
PROVIDERS: PCP Internal Medicine; Visit Provider Internal Medicine
DX: K74.69 Other cirrhosis of liver (principal)
CPT/HCPCS: 36415; 80048; 80076; 84590; 85025; 85610

== ENCOUNTER 2025-05-23 11:41 | Outpatient (REF) | payer OTHER, SELFPAY ==
--- NOTE | ~2025-05-23 | MM_ITS ---
EXAMINATION: MM SCREENING DIGITAL BREAST TOMOSYNTHESIS, BILATERAL CLINICAL INFORMATION: Screening. Asymptomatic. COMPARISON: Mammography: Comparison is made with available priors TECHNIQUE: Digital breast mammography with tomosynthesis is performed in both the craniocaudal and mediolateral oblique views along with computer-aided detection (CAD). FINDINGS: There are scattered areas of fibroglandular density (ACR BI-RADS breast composition Category b). There are no significant masses, abnormal calcifications, or other abnormalities. MM/MM tomosynthesis screening BI IMPRESSION: No mammographic evidence of malignancy. ASSESSMENT: BI-RADS BI-RADS 1 - Negative RECOMMENDATION: Routine annual mammography screening. 1 year F/U This examination should not preclude the clinical evaluation of a suspicious palpable abnormality. This patient's information was entered into a reminder system with a target due date for their next mammogram. Electronically signed by: Heidi Kruse DO 05/28/2025 12:15 PM EDT
--- OUTSIDE RECORDS SUMMARY | 2025-05-23 12:47 | XMS_ITS | Encounter Summary ---
Demographics Address 17 [facility] [address] [place] [address] Mobile Phone Home Phone Preferred Language Estonian; Castilian Marital Status Single Gnosticist Affiliation Unknown Race Unknown Ethnic Group Unknown Author Organization [facility] Address [address] [place] [address] Support Name Relationship Address Phone Orion Rubio Daughter [address] [facility] [address] [place] [address] Care Team Providers Care Golf Player Assistant Name Role Phone Sammie Maharaj Sujit Primary Care Provider [phone] Encounter Details Date Type Department Care Team (Late st Contact Info) Description 05/21/2025 Orders Only [facility] Transplant Department [address] [place] [address] Provider, MD Lola [address] [place] [address] Social History Tobacco Use Types Packs/Day Years Used Date Smoking Tobacco: Never Smokeless Tobacco: Never Comments:: Alcohol Use Standard Drinks/Week Comments No 0 (1 standard drink = 0.6 oz pur e alcohol) Comments No Sex and Gender Information Value Date Recorded Sex Assigned at Female 08/14/2023 3:37 PM EST Legal Sex Female 7:50 AM EDT Gender Identity Female 08/14/2023 3:37 PM EST Sexual Orientation Straight 08/14/2023 3: 37 PM EST documented as of this encounter Plan of Treatment Upcoming Encounters Date Type Department Care Team (Latest Contact Info) Description 06/05/2025 10:20 AM EDT Hospital Encounter [facility] Endoscopy [address] [place] [address] Alejandro Quan [address] [place] [address] 06/05/2025 10:20 AM EDT Anesthesia Event [facility] Endoscopy [address] [place] [address] Dominik Sadler MD [address] [place] [address] 06/05/2025 10:20 AM EDT - 06/05/2025 10:45 AM EDT Surgery [facility]oscopy [address] [place] [address] Alejandro Quan Tavo [address] [place] [address] UPPER ENDOSCOPY WITH FOREIGN BODY REMOVAL WITH POSSIBLE MODERATE SEDATION [56412 (CPT )] 06/21/2025 1:15 PM EDT Office Visit [facility] Dermatology Clinic 4th Floor [address] [facility] [place] [phone] Contour Sander: Perlita Powers MD [address] [place] [address] 07/17/2025 8:00 AM EDT Office Visit [facility] Diabetes Clinic [address] [place] [address] Contour Sander: Paola Vance NP [address] [facility] [place] [address] 08/27/2025 9:00 AM EST Follow-Up [facility] Liver Transplant Services [address] [place] [address] Yasmin Ho MD [address] [place] [address] 09/23/2025 8:00 AM EST Office Visit [facility] Diabetes Clinic [address] [place] [address] Contour Sander: Rocio Walden, AFLOAT CRYPTOLOGIC MANAGER [address] [place] [address] 03/25/2026 9:30 AM EDT Office Visit [facility] Diabetes Clinic [address] [place] [address] Contour Sander: Natasha Rubalcava MD [address] [place] [address] Scheduled Procedures Name Priority Associated Diagnoses Date/Ti me UPPER ENDOSCOPY WITH FOREIGN BODY REMOVAL WITH POSSIBLE MODERATE SEDATION Presence of pancreatic duct stent 06/05/2025 10:20 AM EDT documented as of this encounter Goals Goal Patient Goal Type Associated Problems Recent Progress Patient-Stated? Author Autogenerat ed Goal Care Plan Autogenerated Problem No Brigido Tena M documented as of this encounter Procedures * Due to [place] state law, this organization might not be sharing negative HIV tests. Procedure Name Priority Date/Time Associated Diagnosis Comments LAB - SCANNED Routine 05/13/2025 12:27 PM EDT documented in this encounter Results * Due to [place] state law, this organization might not be sharing negative HIV tests. * LAB - SCANNED (05/13/2025 12:27 PM EDT) us Unknown Provider MD LAB HISTORICAL RESULTS Final Result documented in this encounter Visit Diagnoses Not on filedocumented in this encounter Additional Health Concerns Active Problems Noted Date Diagnosed Date Autogenerated Problem 04/09/2025 documented as of this encounter Care Teams Golf Player Assistant Relationship Specialty Start Date End Date Sammie Maharaj [address] [place] [address] PCP - General Family Medicine 05/15/18 documented as of this encounter
--- OUTSIDE RECORDS SUMMARY | 2025-05-23 12:47 | XMS_ITS | Encounter Summary ---
Author Organization [employer] Address [address] [facility] 7t [place] [address] Care Team Providers Care Geomorphologist Name Role Phone Sammie Maharaj MD Primary Care Provider [phone] Loyda Glaser RN Unavailable [phone] Yasmin Ho MD Unavailable [phone] Reason for Visit * Reason Comments Med Refill Encounter Details Date Type Department Care Team (Late st Contact Info) Description 11/13/2024 Refill [facility] [address] [place], [place] [phone] Sammie Maharaj MD [address] [place], [place] [phone] Tinea unguium Social History Tobacco Use Types [...] Description 07/03/2025 9:30 AM EDT Office Visit [facility] MEDICINE [address] [place] [address] Sammie Maharaj MD [address] [place] [address] documented as of this encounter Visit Diagnoses Diagnosis Tinea unguium Dermatophytosis of nail documented in this encounter Additional Health Concerns Assessment Noted Time PHQ-9 Depression Total Score: 0 10/24/19 25 9:33 AM EST documented as of this encounter Care Teams Geomorphologist Relationship Specialty Start Date End Date Sammie Maharaj MD [address] [place] [address] PCP - General Family Medicine 10/10/18 Loyda Glaser RN [address] [place] [address] Furniture Mechanic Family Medicine 10/31/23 Yasmin Ho MD [address] [place] [address] Gastroenterology 08/29/24 Manuel Carpenter PA [address] [phone] Neurology 08/29/24 Paola Tolentino NP [address] [address] Endocrinology 10/24/24 [facility] Psychology Psychology 12/19/24 documented as of this encounter
--- OUTSIDE RECORDS SUMMARY | 2025-05-23 12:48 | XMS_ITS | Patient Health Record ---
Author Organization [facility] Address [address] [place] [address] Care Team Providers Care Congressional Representative Name Role Phone Sammie Maharaj MD Primary Care Provider Peggy vailable Varun Lou Unavailable [phone] Reason For Referral No Information Medications Medication SIG (Take, Route, Fr equency, Duration) Notes Start Date End Date Status Omeprazole 40mg 10/10/2024 10/10/2024 Ac tive Nadolol 40mg 10/10/2024 10/10/2024 Activ e Problems Problem Type SNOMED Code ICD Code Onset Dates Problem Status W/U Status Risk Notes Problem Anemia (885861574) Unspecified anemia (285.9) Active confirmed Problem Esophageal varices without bleeding (23136821) Esophageal varices without mention of bleeding (456.1) Active confirmed Problem Ascites (998935749) Ascites, other (789.59) Active confirmed Problem Liver function tests abnormal (989478027) Nonspecific abnormal results of liver function study [...] Start Date Coverage End Date MEDICAID OF [employer] [address] [place] [phone] [id number] BROOK MARIA Self - patient is the insured Medical (General) History Medical History History ICD Code 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
== END 2025-05-23 11:42 | disposition home or self-care (01) ==
LOC: HO.MAMMO 11:41
PROVIDERS: PCP Family Medicine; Visit Provider Family Medicine
DX: Z12.31 Encounter for screening mammogram for malignant neoplasm of breast (principal)
CPT/HCPCS: 77063; 77067

== ENCOUNTER → 2025-05-23 12:30 | Outpatient (BNV) | payer OTHER, SELFPAY | PROVIDERS: PCP Family Medicine; Visit Provider Internal Medicine | DX: Z12.31 Encounter for screening mammogram for malignant neoplasm of breast (principal) | CPT/HCPCS: 77063; 77067 ==

== ENCOUNTER 2025-05-28 07:49 | Outpatient (REF) | payer OTHER, SELFPAY ==
--- OUTSIDE RECORDS SUMMARY | 2025-05-28 07:52 | XMS_ITS | Encounter Summary ---
Demographics Address [address] [facility] [address] [place] [address] Mobile Phone Home Phone Preferred Language Icelandic; Castilian Marital Status Single Moravian Affiliation Unknown Race Unknown Ethnic Group Unknown Author Organization [facility] Address [address] [place] [address] Support Name Relationship Address Phone Orion Rubio Daughter [address] [facility] [address] [place] [address] Care Team Providers Care Counseling Case Manager Name Role Phone Sammie Maharaj Sujit Primary Care Provider +1 [phone] Encounter Details Date Type Department Care Team (Late st Contact Info) Description 05/21/2025 Orders Only [facility] Transplant Department [address] [place] [address] Provider, MD Lola [address] [place] [address] Social History Tobacco Use Types Packs/Day [...] Description 06/05/2025 10:20 AM EDT Hospital Encounter [facility] [address] [place] [address] Alejandro Quan [address] [place] [address] 06/05/2025 10:20 AM EDT Anesthesia Event [facility] [address] [place] [address] Dominik Sadler MD [address] [place] [address] 06/05/2025 10:20 AM EDT - 06/05/2025 10:45 AM EDT Surgery [facility] [address] [place] [address] Alejandro Quan Tavo [address] [place] [address] UPPER ENDOSCOPY WITH FOREIGN BODY REMOVAL WITH POSSIBLE MODERATE SEDATION [07557 (CPT )] 06/21/2025 1:15 PM EDT Office Visit [facility] Dermatology Clinic 4th Floor [address] [facility] [place] [phone] Electroneurodiagnostic Technician: Perlita Powers MD [address] [place] [address] 07/17/2025 8:00 AM EDT Office Visit [facility] [address] [place] [address] Electroneurodiagnostic Technician: Paola Vance NP [address] [facility] [place] [address] 08/27/2025 9:00 AM EST Follow-Up [facility] Liver Transplant Services [address] [place] [address] Yasmin Ho MD [address] [place] [address] 09/23/2025 8:00 AM EST Office Visit [facility] [address] [place] [address] Electroneurodiagnostic Technician: Rocio Walden, RN MANAGED CARE [address] [place] [address] 03/25/2026 9:30 AM EDT Office Visit [facility] [address] [place] [address] Electroneurodiagnostic Technician: Natasha Rubalcava MD [address] [place] [address] Scheduled Procedures Name Priority Associated Diagnoses Date/Ti me UPPER ENDOSCOPY WITH FOREIGN BODY REMOVAL WITH POSSIBLE MODERATE SEDATION Presence of pancreatic duct stent 06/05/2025 10:20 AM EDT documented as of this encounter Goals Goal Patient Goal Type Associated Problems Recent Progress Patient-Stated? Author Autogenerat ed Goal Care Plan Autogenerated Problem No Brigido Tena M documented as of this encounter Procedures * Due to [place] state law, this organization might not be sharing negative HIV tests. Procedure Name Priority Date/Time Associated Diagnosis Comments LAB - SCANNED Routine 05/13/2025 12:27 PM EDT documented in this encounter Results * Due to [place] state law, this organization might not be sharing negative HIV tests. * LAB - SCANNED (05/13/2025 12:27 PM EDT) us Unknown Provider MD LAB HISTORICAL RESULTS Final Result documented in this encounter Visit Diagnoses Not on filedocumented in this encounter Additional Health Concerns Active Problems Noted Date Diagnosed Date Autogenerated Problem 04/09/2025 documented as of this encounter Care Teams Counseling Case Manager Relationship Specialty Start Date End Date Sammie Maharaj [address] [place] [address] PCP - General Family Medicine 05/15/18 documented as of this encounter
--- OUTSIDE RECORDS SUMMARY | 2025-05-28 07:52 | XMS_ITS | Encounter Summary ---
Author Organization [employer] Address [address] [facility] 7t [place] [address] Care Team Providers Care Buffing Wheel Former Automatic Name Role Phone Sammie Maharaj MD Primary Care Provider [phone]- [phone] Loyda Glaser RN Unavailable [phone] Yasmin Ho MD Unavailable [phone] Reason for Visit * Reason Comments Med Refill Encounter Details Date Type Department Care Team (Late st Contact Info) Description 11/13/2024 Refill [facility] WALK-IN CENTER [address] [place], [place] [phone] Sammie Maharaj MD [address] [place], [place] [phone] Tinea unguium Social History Tobacco Use Types [...] Description 07/03/2025 9:30 AM EDT Office Visit [facility] MEDICINE [address] [place] [address] Sammie Maharaj MD [address] [place] [address] documented as of this encounter Visit Diagnoses Diagnosis Tinea unguium Dermatophytosis of nail documented in this encounter Additional Health Concerns Assessment Noted Time PHQ-9 Depression Total Score: 0 10/24/19 25 9:33 AM EST documented as of this encounter Care Teams Buffing Wheel Former Automatic Relationship Specialty Start Date End Date Sammie Maharaj MD [address] [place] [address] PCP - General Family Medicine 10/10/18 Loyda Glaser RN [address] [place] [address] Clinical Education Specialist Family Medicine 10/31/23 Yasmin Ho MD [address] [place] [address] Gastroenterology 08/29/24 Manuel Carpenter PA [address] [phone] Neurology 08/29/24 Paola Tolentino NP [address] [address] Endocrinology 10/24/24 [facility] Psychology Psychology 12/19/24 documented as of this encounter
--- OUTSIDE RECORDS SUMMARY | 2025-05-28 07:53 | XMS_ITS | Patient Health Record ---
Author Organization [facility] Address [address] [place] [address] Care Team Providers Care Glove Turner And Former Name Role Phone Sammie Maharaj MD Primary Care Provider Peggy vailable Varun Lou Unavailable [phone] Reason For Referral No Information Medications Medication SIG (Take, Route, Fr equency, Duration) Notes Start Date End Date Status Omeprazole 40mg 10/10/2024 10/10/2024 Ac tive Nadolol 40mg 10/10/2024 10/10/2024 Activ e Problems Problem Type SNOMED Code ICD Code Onset Dates Problem Status W/U Status Risk Notes Problem Anemia (150832787) Unspecified anemia (285.9) Active confirmed Problem Esophageal varices without bleeding (94348226) Esophageal varices without mention of bleeding (456.1) Active confirmed Problem Ascites, other (789.59) Active confirmed Problem Liver function tests abnormal (207765644) Nonspecific abnormal results of liver function study [...] Start Date Coverage End Date MEDICAID OF [employer] [address] [place] [phone] [id number] BROOK MARIA Self - patient is the insured Medical (General) History Medical History History ICD Code 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
[2025-05-28 08:56] LABS: INTERNATIONAL NORM RATIO 1.1 (0.9-1.1); Prothrombin Time 13.1 SEC (10.9-12.4)
[2025-05-28 09:38] LABS: Alanine Aminotransferase 83 U/L (0-31); Albumin Level 3.2 g/dL (3.5-5.0); Alkaline Phosphatase 938 U/L (39-117); Anion Gap 11 (12-20); Aspartate Amino Transferase 114 U/L (5-31); Blood Urea Nitrogen 15 mg/dL (9-16); Calcium 8.5 mg/dL (8.4-10.2); Carbon Dioxide 21 mmol/L (22-29); Chloride 112 mmol/L (96-108); Estimated Glomerular Filt Rate > 60; Potassium 3.2 mmol/L (3.3-5.1); Sodium 141 mmol/L (135-145); Total Protein 6.2 g/dL (6.5-8.0)
== END 2025-05-28 07:50 | disposition home or self-care (01) ==
LOC: HO.LAB 07:49
PROVIDERS: PCP Internal Medicine; Visit Provider Internal Medicine
DX: K74.69 Other cirrhosis of liver (principal)
CPT/HCPCS: 36415; 80053; 85610

== ENCOUNTER 2025-06-11 08:01 | Outpatient (REF) | payer OTHER, SELFPAY ==
--- OUTSIDE RECORDS SUMMARY | 2025-06-11 08:07 | XMS_ITS | Encounter Summary ---
Author Organization [employer] Address [address] [facility] 7t [place] [address] Care Team Providers Care Configuration Manager Name Role Phone Sammie Maharaj MD Primary Care Provider [phone]- [phone] Loyda Glaser RN Unavailable [phone] Yasmin Ho MD Unavailable Reason for Visit * Reason Comments Med Refill Encounter Details Date Type Department Care Team (Late st Contact Info) Description 12/25/2024 Refill [facility] WALK-IN CENTER [address] [place], [place] [phone] Sammie Maharaj MD 230 [place], [place] [phone] Tinea unguium Social History Tobacco Use Types [...] Description 07/03/2025 9:30 AM EDT Office Visit [facility] MEDICINE [address] [place] [address] Sammie Maharaj MD [address] [place] [address] documented as of this encounter Visit Diagnoses Diagnosis Tinea unguium Dermatophytosis of nail documented in this encounter Additional Health Concerns Assessment Noted Time PHQ-9 Depression Total Score: 0 10/24/19 25 9:33 AM EST documented as of this encounter Care Teams Configuration Manager Relationship Specialty Start Date End Date Sammie Maharaj MD [address] [place] [address] PCP - General Family Medicine 10/10/18 Loyda Glaser RN [address] [place] [address] Final Inspector Motorcyles Family Medicine 10/31/23 Yasmin Ho MD [address] [place] [address] Gastroenterology 08/29/24 Manuel Carpenter PA [address] [phone] Neurology 08/29/24 Paola Tolentino NP [address] [address] Endocrinology 10/24/24 [facility] Psychology Psychology 12/19/24 documented as of this encounter
--- OUTSIDE RECORDS SUMMARY | 2025-06-11 08:07 | XMS_ITS | Encounter Summary ---
Author Organization [employer] Address [address] [facility] 7t [place] [address] Care Team Providers Care Rate Clerk Passenger Name Role Phone Sammie Maharaj MD Primary Care Provider [phone]- [phone] Loyda Glaser RN Unavailable [phone] Yasmin Ho MD Unavailable Reason for Visit * Reason Comments Med Refill Encounter Details Date Type Department Care Team (Late st Contact Info) Description 11/13/2024 Refill [facility] WALK-IN CENTER [address] [place], [place] [phone] Sammie Maharaj MD 230 [place], [place] [phone] Tinea unguium Social History Tobacco Use Types [...] Description 07/03/2025 9:30 AM EDT Office Visit [facility] MEDICINE [address] [place] [address] Sammie Maharaj MD [address] [place] [address] documented as of this encounter Visit Diagnoses Diagnosis Tinea unguium Dermatophytosis of nail documented in this encounter Additional Health Concerns Assessment Noted Time PHQ-9 Depression Total Score: 0 10/24/19 25 9:33 AM EST documented as of this encounter Care Teams Rate Clerk Passenger Relationship Specialty Start Date End Date Sammie Maharaj MD [address] [place] [address] PCP - General Family Medicine 10/10/18 Loyda Glaser RN [address] [place] [address] Tool Maker Family Medicine 10/31/23 Yasmin Ho MD [address] [place] [address] Gastroenterology 08/29/24 Manuel Carpenter PA [address] [phone] Neurology 08/29/24 Paola Tolentino NP [address] [address] Endocrinology 10/24/24 [facility] Psychology Psychology 12/19/24 documented as of this encounter
--- OUTSIDE RECORDS SUMMARY | 2025-06-11 08:08 | XMS_ITS | Encounter Summary ---
Demographics Address [address] [facility] 2 [place] [address] Mobile Phone Home Phone Preferred Language Arabic; Castilian Marital Status Single Confucianist Affiliation Unknown Race Unknown Ethnic Group Unknown Author Organization [facility] Address [address] [place] [address] Support Name Relationship Address Phone Orion Rubio Daughter [address] [facility] [address] [place] [address] Care Team Providers Care Practical Nurse Clinical Coordinator Name Role Phone Sammie Maharaj Primary Care Provider [phone]- [phone] Encounter Details Date Type Department Care Team (Late st Contact Info) Description 05/21/2025 Results Follow-Up [facility] Liver Transplant Services [address] [place] [address] Katy Boateng RN Social History Tobacco Use [...] Description 06/21/2025 1:15 PM EDT Office Visit [facility] Dermatology Clinic 4th Floor [address] [facility], [place] [phone] Organ Tuner Electronic: Perlita Powers MD [address] [place] [address] 07/17/2025 8:00 AM EDT Office Visit [facility] Diabetes Clinic [address] [place] [address] Organ Tuner Electronic: Paola Vance NP [address] [place] [address] 08/27/2025 9:00 AM EST Follow-Up [facility] Liver Transplant Services [address] [place] [address] Yasmin Ho MD [address] [place] [address] 09/23/2025 8:00 AM EST Office Visit [facility] Clinic [address] [place] [address] Organ Tuner Electronic: Rocio Walden NP [address] [place] [address] 03/25/2026 9:30 AM EDT Office Visit [facility] [address] [place] [address] Organ Tuner Electronic: Natasha Rubalcava MD [address] [place] [address] documented as of this encounter Goals Goal Patient Goal Type Associated Problems Recent Progress Patient-Stated? Author Autogenerat ed Goal Care Plan Autogenerated Problem No Tena Fofana documented as of this encounter Visit Diagnoses Not on filedocumented in this encounter Additional Health Concerns Active Problems Noted Date Diagnosed Date Autogenerated Problem 04/09/2025 documented as of this encounter Care Teams Practical Nurse Clinical Coordinator Relationship Specialty Start Date End Date Sammie Maharaj: [phone] [address] [place] [address] PCP - General Family Medicine 05/15/18 documented as of this encounter
--- OUTSIDE RECORDS SUMMARY | 2025-06-11 08:08 | XMS_ITS | Encounter Summary ---
Author Organization [employer] [facility] Address [address] [facility] 7t [place] [address] Care Team Providers Care Amf Mechanic Name Role Phone Sammie Maharaj MD Primary Care Provider [phone]- [phone] Loyda Glaser RN Unavailable [phone] Yasmin Ho MD Unavailable [phone] Encounter Details Date Type Department Care Team (Late st Contact Info) Description 12/01/2022 Orders Only [facility] MEDICINE [address] [place] [address] [phone] Ericka Osei MD [address] [place] [address] [phone] Visual problems (Primary Dx) Social History Tobacco [...] AM EDT Office Visit [facility] MEDICINE [address] [place] [address] [phone] Sammie Maharaj MD [address] [place] [address] [phone] documented as of this encounter Visit Diagnoses Diagnosis Visual problems- Primary documented in this encounter Care Teams Amf Mechanic Relationship Specialty Start Date End Date Sammie Maharaj MD 230 [place] [address] PCP - General Family Medicine 10/10/18 Loyda Glaser, RN 230 [place] [address] Launching Pad Mechanic Family Medicine 10/31/23 Yasmin Ho MD [address] [place] [address] Gastroenterology 08/29/24 Manuel Carpenter PA [address] [address] Neurology 08/29/24 Paola Tolentino, HEBERT [address] [address] Endocrinology 10/24/24 [facility] Psychology Psychology 12/19/24 documented as of this encounter
--- OUTSIDE RECORDS SUMMARY | 2025-06-11 08:09 | XMS_ITS | Encounter Summary ---
Author Organization [employer] Address [address] [place] [address] 7t [place] [address] Care Team Providers Care Certified Procedural Coder Name Role Phone Sammie Maharaj MD Primary Care Provider [phone]- [phone] Loyda Glaser RN Unavailable [phone] Yasmin Ho MD Unavailable [phone] Reason for Visit * Reason Onset Date Comments Referral 12/01/2022 Encounter Details Date Type Department Care Team (Late st Contact Info) Description 12/01/[address] [facility] MEDICINE [address] [place] [address] Sammie Maharaj MD [address] [place], [place] [phone] Referral Social History Tobacco Use Types Packs/Day [...] [facility] Please contact pt at [phone] or Becca [phone] documented in this encounter Plan of Treatment Upcoming Encounters Date Type Department Care Team (Late st Contact Info) Description 07/03/2025 9:30 AM EDT Office Visit [facility] MEDICINE [address] [place] [address] Sammie Maharaj MD [address] [place] [address] documented as of this encounter Visit Diagnoses Not on filedocumented in this encounter Care Teams Certified Procedural Coder Relationship Specialty Start Date End Date Sammie Maharaj MD [address] [place] [address] [phone] PCP - General Family Medicine 10/10/18 Loyda Glaser, ERVIN [address] [place] [address] Rating Clerk Family Medicine 10/31/23 Yasmin Ho MD [address] [place] [address] Gastroenterology 08/29/24 Manuel Carpenter PA [facility] [address] [facility] [address] Neurology 08/29/24 Paola Tolentino NP [address] [address] Endocrinology 10/24/24 [facility] Psychology Psychology 12/19/24 documented as of this encounter
--- OUTSIDE RECORDS SUMMARY | 2025-06-11 08:09 | XMS_ITS | Encounter Summary ---
Demographics Address [address] [facility] 2 [place] [address] Mobile Phone Home Phone Preferred Language Tajik; Castilian Marital Status Single Baptism Affiliation Unknown Race Unknown Ethnic Group Unknown Author Organization [facility] Address [address] [place] [address] Support Name Relationship Address Phone Orion Rubio Daughter [address] [facility] [address] [place] [address] Care Team Providers Care Business Process Associate Name Role Phone Sammie Maharaj Primary Care Provider [phone] Encounter Details Date Type Department Care Team (Late st Contact Info) Description 09/20/2023 Orders Only [facility] Interventional Radiology [address] [place] [address] Ricardo Reyez MD [address] [place] [address] Social History Tobacco Use Types Packs/Day Years [...] Description 06/21/2025 1:15 PM EDT Office Visit [facility] Dermatology Clinic 4th Floor [address] [place] [address], [place] [phone] Cigar Brander: Perlita Powers MD [address] [place] [address] 07/17/2025 8:00 AM EDT Office Visit [facility] 55 [place] [address] Cigar Brander: Paola Vance NP [address] [place] [address] 08/27/2025 9:00 AM EST Follow-Up [facility] Liver Transplant Services [address] [place] [address] Yasmin Ho MD [address] [place] [address] 09/23/2025 8:00 AM EST Office Visit [facility] [address] [place] [address] Cigar Brander: Rocio Walden NP [address] [place] [address] 03/25/2026 9:30 AM EDT Office Visit [facility] [address] [place] [address] Cigar Brander: Natasha Rubalcava MD [address] [place] [address] documented as of this encounter Visit Diagnoses Not on filedocumented in this encounter Care Teams Business Process Associate Relationship Specialty Start Date End Date Sammie Maharaj 230 [place] [address] PCP - General Family Medicine 05/15/18 documented as of this encounter
--- OUTSIDE RECORDS SUMMARY | 2025-06-11 08:10 | XMS_ITS | Encounter Summary ---
Author Organization [employer] Address [address] [place] [address] 7t [place] [address] Care Team Providers Care Jewelry Estimator Name Role Phone Sammie Maharaj MD Primary Care Provider [phone]- [phone] Loyda Glaser RN Unavailable [phone] Yasmin Ho MD Unavailable Encounter Details Date Type Department Care Team (Late st Contact Info) Description 11/11/2022 Abstract [facility] [address] [place] [address] [phone] Sammie Maharaj MD [address] [place] [address] [phone] Social History Tobacco Use Types Packs/Day Years [...] Description 07/03/2025 9:30 AM EDT Office Visit [facility] [address] [place] [address] [phone] Sammie Maharaj MD [address] [place] [address] [phone] documented as of this encounter Procedures Procedure Name Priority Date/Time Associated Diagnosis Comments PAP SMEAR Routine 03/25/2021 12:00 AM EDT documented in this encounter Results * Pap Smear (03/25/2021 12:00 AM EDT) Swab us Historical Provider LAB CYTOLOGY ORDERABLES F inal Result IMAGING documented in this encounter Visit Diagnoses Not on filedocumented in this encounter Care Teams Jewelry Estimator Relationship Specialty Start Date End Date Sammie Maharaj MD [address] [place] [address] PCP - General Family Medicine 10/10/18 Loyda Glaser, ERVIN [address] [place] [address] Glass Presser Family Medicine 10/31/23 Yasmin Ho MD [address] [place] [address] Gastroenterology 08/29/24 Manuel Carpenter PA [facility] [address] [facility] [address] Neurology 08/29/24 Paola Tolentino, PHOTOGRAPHIC COLORIST [address] [address] Endocrinology 10/24/24 [facility] Psychology Psychology 12/19/24 documented as of this encounter
--- OUTSIDE RECORDS SUMMARY | 2025-06-11 08:11 | XMS_ITS | Encounter Summary ---
Author Organization [employer] Address [address] [place] [address] 7t [place] [address] Care Team Providers Care Geodetic Computator Name Role Phone Sammie Maharaj MD Primary Care Provider Loyda Glaser RN Unavailable [phone] Yasmin Ho MD Unavailable [phone] Encounter Details Date Type Department Care Team (Late st Contact Info) Description 05/16/2023 Orders Only [facility] [address] [place] [address] Emily Marcial LPN Social History Tobacco Use [...] Department Care Team (Late Contact Info) Description 07/03/2025 9:30 AM EDT Office Visit [facility] MEDICINE [address] [place] [address] Sammie Maharaj MD 230 [place], [place] [phone] documented as of this encounter Visit Diagnoses Not on filedocumented in this encounter Care Teams Geodetic Computator Relationship Specialty Start Date End Date Sammie Maharaj MD [address] [place] [address] [phone] PCP - General Family Medicine 10/10/18 Loyda Glaser RN [address] [place] [address] Shirt Sewer Family Medicine 10/31/23 Yasmin Ho MD [address] [place] [address] Gastroenterology 08/29/24 Manuel Carpenter PA [facility] 55 [facility] [address] Neurology 08/29/24 Paola Tolentino, RIDING SILKS CUSTODIAN [address] [address] Endocrinology 10/24/24 [facility] Psychology Psychology 12/19/24 documented as of this encounter
--- OUTSIDE RECORDS SUMMARY | 2025-06-11 08:11 | XMS_ITS | Encounter Summary ---
Author Organization [employer] Address 75 [facility] 7t [place] [address] Care Team Providers Care Seat Nailer Name Role Phone Sammie Maharaj MD Primary Care Provider [phone]- [phone] Loyda Glaser RN Unavailable [phone] Yasmin Ho MD Unavailable Reason for Visit * Reason Onset Date Comments Nurse Triage 03/22/2023 Encounter Details Date Type Department Care Team (Late st Contact Info) Description 03/22/2023 Telephone [facility] MEDICINE [address] [place] [address] Sammie Maharaj MD 230 [place], [place] [phone] Nurse Triage Social History Tobacco Use Types [...] 03/22/2023 2:01 PM EDT Triage call with [employer] Block Splitter Operator ID [id number] Pt didn't answer left message to call [facility] triage line at [phone]. Triage call with [employer] Block Splitter Operator ID [id number] Pt answered, Pt wasn't able to say [...] Description 07/03/2025 9:30 AM EDT Office Visit [facility]INE [address] [place] [address] Sammie Maharaj MD [address] [place] [address] documented as of this encounter Visit Diagnoses Not on filedocumented in this encounter Care Teams Seat Nailer Relationship Specialty Start Date End Date Sammie Maharaj MD [address] [place] [address] PCP - General Family Medicine 10/10/18 Loyda Glaser RN [address] [place] [address] Senior Engineering Specialist Family Medicine 10/31/23 Yasmin oH MD [address] [place] [address] Gastroenterology 08/29/24 Manuel Carpenter PA [address] [address] Neurology 08/29/24 Paola Tolentino NP [address] [address] Endocrinology 10/24/24 [facility] Psychology Psychology 12/19/24 documented as of this encounter
--- OUTSIDE RECORDS SUMMARY | 2025-06-11 08:11 | XMS_ITS | Encounter Summary ---
Author Organization [employer] Address 75 [facility] 7t [place] [address] Care Team Providers Care Nailer Operator Name Role Phone Sammie Maharaj MD Primary Care Provider [phone] Loyda Glaser RN Unavailable [phone] Yasmin Ho MD Unavailable [phone] Reason for Visit * Reason Onset Date Comments No Show 04/21/2023 Encounter Details Date Type Department Care Team (Late st Contact Info) Description 04/21/2023 Telephone [facility] MEDICINE 230 [place] [address] Hansa Chung RN 230 [place] [address] No Show Social History Tobacco Use Types [...] and declined as she is traveling to [facility] tomorrow morning and whill [...] 04/21/2023 12:30 PM EDT Call received from [facility], regarding critical lab result. Pt glucose [...] Description 07/03/2025 9:30 AM EDT Office Visit [facility] [address] [place] [address] Sammie Maharaj MD [address] [place] [address] documented as of this encounter Visit Diagnoses Not on filedocumented in this encounter Care Teams Nailer Operator Relationship Specialty Start Date End Date Sammie Maharaj MD [address] [place] [address] PCP - General Family Medicine 10/10/18 Loyda Glaser RN [address] [place] [address] Patternmaker Helper Family Medicine 10/31/23 Yasmin Ho MD [address] [place] [address] Gastroenterology 08/29/24 Manuel Carpenter PA [address] [address] Neurology 08/29/24 Paola Tolentino NP [address] [address] Endocrinology 10/24/24 [facility] Psychology Psychology 12/19/24 documented as of this encounter
--- OUTSIDE RECORDS SUMMARY | 2025-06-11 08:12 | XMS_ITS | Encounter Summary ---
Demographics Address [address] [facility] [address] [place] [address] Mobile Phone Home Phone Preferred Language Romansh; Castilian Marital Status Single Pentecostalism Affiliation Unknown Race Unknown Ethnic Group Unknown Author Organization [facility] Address [address] [place] [address] Support Name Relationship Address Phone Orion Rubio Daughter [address] [facility] [address] [place] [address] Care Team Providers Care Software Deployment Engineer Name Role Phone Sammie Maharaj Primary Care Provider [phone] Encounter Details Date Type Department Care Team (Late st Contact Info) Description 10/27/2023 Orders Only [facility] Interventional Radiology 55 [place] [address] Enzo Conner MD 55 [place] [address] Social History Tobacco Use Types Packs/Day Years [...] Description 06/21/2025 1:15 PM EDT Office Visit [facility] Dermatology Clinic 4th [address] [place] [address], [place] [phone] Drapery Counselor: Perlita Powers MD [address] [place] [address] 07/17/2025 8:00 AM EDT Office Visit [facility] Diabetes Clinic [address] [place] [address] Drapery Counselor: Paola Vance NP [address] [place] [address] 08/27/2025 9:00 AM EST Follow-Up [facility] Liver Transplant Services [address] [place] [address] Yasmin Ho MD [address] [place] [address] 09/23/2025 8:00 AM EST Office Visit [facility] Diabetes [facility] [address] [place] [address] Drapery Counselor: Rocio Walden NP [address] [place] [address] 03/25/2026 9:30 AM EDT Office Visit [facility] [address] [place] [address] Drapery Counselor: Natasha Rubalcava MD [address] [place] [address] documented as of this encounter Visit Diagnoses Not on filedocumented in this encounter Care Teams Software Deployment Engineer Relationship Specialty Start Date End Date Sammie Maharaj [address] [place] [address] PCP - General Family Medicine 05/15/18 documented as of this encounter
--- OUTSIDE RECORDS SUMMARY | 2025-06-11 08:12 | XMS_ITS | Encounter Summary ---
Demographics Address 17 [facility] [address] [place] [address] Mobile Phone Home Phone Preferred Language Belarusian; Castilian Marital Status Single Hinduism Affiliation Unknown Race Unknown Ethnic Group Unknown Author Organization [facility] Address [address] [place] [address] Support Name Relationship Address Phone Orion Rubio Daughter [address] [facility] [address] [place] [address] Care Team Providers Care Polysomnograph Tech Name Role Phone Sammie Maharaj Primary Care Provider [phone] Encounter Details Date Type Department Care Team (Late st Contact Info) Description 11/04/2023 Orders Only [facility] Entrance B Interventional Radiology [address] [place] [address] Duncan Ragland MD [address] [place] [address] Social History Tobacco Use Types Packs/Day Years [...] Description 06/21/2025 1:15 PM EDT Office Visit [facility] Dermatology Clinic 4th [address] [place] [address], [place] [address] Folder Inspector: Perlita Powers MD [address] [place] [address] 07/17/2025 8:00 AM EDT Office Visit [facility] Diabetes Clinic [address] [place] [address] Folder Inspector: Paola Vance NP [address] [place] [address] 08/27/2025 9:00 AM EST Follow-Up [facility] Liver Transplant Services [address] [place] [address] Yasmin Ho MD [address] [place] [address] 09/23/2025 8:00 AM EST Office Visit [facility] Diabetes Clinic [address] [place] [address] Folder Inspector: Rocio Walden NP [address] [place] [address] 03/25/2026 9:30 AM EDT Office Visit [facility] Diabetes Clinic [address] [place] [address] Folder Inspector: Natasha Rubalcava MD [address] [place] [address] documented as of this encounter Visit Diagnoses Not on filedocumented in this encounter Care Teams Polysomnograph Tech Relationship Specialty Start Date End Date Sammie Maharaj: [phone] [address] [place] [address] PCP - General Family Medicine 05/15/18 documented as of this encounter
--- OUTSIDE RECORDS SUMMARY | 2025-06-11 08:12 | XMS_ITS | Patient Health Record ---
Author Organization [facility] Address [address] [place] [address] Care Team Providers Care Diamond Blender Name Role Phone Sammie Maharaj MD Primary Care Provider Peggy vailable Varun Lou Unavailable [phone] Reason For Referral No Information Medications Medication SIG (Take, Route, Fr equency, Duration) Notes Start Date End Date Status Omeprazole 40mg 10/10/2024 10/10/2024 Ac tive Nadolol 40mg 10/10/2024 10/10/2024 Activ e Problems Problem Type SNOMED Code ICD Code Onset Dates Problem Status W/U Status Risk Notes Problem Anemia (598083978) Unspecified anemia (285.9) Active confirmed Problem Esophageal varices without bleeding (01052002) Esophageal varices without mention of bleeding (456.1) Active confirmed Problem Ascites (075110770) Ascites, other (789.59) Active confirmed Problem Liver function tests abnormal (252769802) Nonspecific abnormal results of liver function study [...] Start Date Coverage End Date MEDICAID OF [employer] [address] [place] [phone] [id number] BROOK MARIA Self - patient is the insured Medical (General) History Medical History History ICD Code 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
--- OUTSIDE RECORDS SUMMARY | 2025-06-11 08:12 | XMS_ITS | Encounter Summary ---
Demographics Address 17 [facility] 2 [place] [address] Mobile Phone Home Phone Preferred Language Slovak; Castilian Marital Status Single Baptism Affiliation Unknown Race Unknown Ethnic Group Unknown Author Organization [facility] Address [address] [place] [address] Support Name Relationship Address Phone Orion Rubio Daughter [address] [facility] [address] [place] [address] Care Team Providers Care Hand Pleater Name Role Phone Sammie Maharaj Primary Care Provider [phone] Encounter Details Date Type Department Care Team (Late st Contact Info) Description 11/03/2023 Orders Only [facility] Entrance B Interventional Radiology [address] [place] [address] Duncan Ragland MD [address] [place] [address] Social History Tobacco Use Types Packs/Day Years [...] Description 06/21/2025 1:15 PM EDT Office Visit [facility] Dermatology Clinic 4th [address] [place] [address], [place] [address] Control Panel Assembler: Perlita Powers MD [address] [place] [address] 07/17/2025 8:00 AM EDT Office Visit [facility] Diabetes Clinic [address] [place] [address] Control Panel Assembler: Paola Vance NP [address] [place] [address] 08/27/2025 9:00 AM EST Follow-Up [facility] Liver Transplant Services [address] [place] [address] Yasmin Ho MD [address] [place] [address] 09/23/2025 8:00 AM EST Office Visit [facility] Diabetes Clinic [address] [place] [address] Control Panel Assembler: Rocio Walden NP [address] [place] [address] 03/25/2026 9:30 AM EDT Office Visit [facility] Diabetes Clinic [address] [place] [address] Control Panel Assembler: Natasha Rubalcava MD [address] [place] [address] documented as of this encounter Visit Diagnoses Not on filedocumented in this encounter Care Teams Hand Pleater Relationship Specialty Start Date End Date Sammie Maharaj: [phone] [address] [place] [address] PCP - General Family Medicine 05/15/18 documented as of this encounter
--- OUTSIDE RECORDS SUMMARY | 2025-06-11 08:12 | XMS_ITS | Encounter Summary ---
Demographics Address 17 [facility] 2 [place] [address] Mobile Phone Home Phone Preferred Language Wolof; Castilian Marital Status Single Buddhism Affiliation Unknown Race Unknown Ethnic Group Unknown Author Organization [facility] Address [address] [place] [address] Support Name Relationship Address Phone Orion Rubio Daughter [address] [facility] [address] [place] [address] Care Team Providers Care Front End Drupal Developer Name Role Phone Sammie Maharaj Primary Care Provider [phone]- [phone] Encounter Details Date Type Department Care Team (Late st Contact Info) Description 12/14/2023 Orders Only [facility] Interventional Radiology 55 [place] [address] Smith Manzo DO 55 [place] [address] Social History Tobacco Use Types Packs/Day Years [...] Description 06/21/2025 1:15 PM EDT Office Visit [facility] Dermatology Clinic 4th [address] [place] [address], [place] [address] Wood Tile Installer: Perlita Powers MD [address] [place] [address] 07/17/2025 8:00 AM EDT Office Visit [facility] Diabetes Clinic [address] [place] [address] Wood Tile Installer: Paola Vance NP [address] [place] [address] 08/27/2025 9:00 AM EST Follow-Up [facility] Liver Transplant Services [address] [place] [address] Yasmin Ho MD [address] [place] [address] 09/23/2025 8:00 AM EST Office Visit [facility] Diabetes Clinic [address] [place] [address] Wood Tile Installer: Rocio Walden NP [address] [place] [address] 03/25/2026 9:30 AM EDT Office Visit [facility] Diabetes Clinic [address] [place] [address] Wood Tile Installer: Natasha Rubalcava MD [address] [place] [address] documented as of this encounter Visit Diagnoses Not on filedocumented in this encounter Care Teams Front End Drupal Developer Relationship Specialty Start Date End Date Sammie Maharaj: [phone] [address] [place] [address] PCP - General Family Medicine 05/15/18 documented as of this encounter
--- OUTSIDE RECORDS SUMMARY | 2025-06-11 08:13 | XMS_ITS | Encounter Summary ---
Author Organization [employer] Address [address] [facility] 7t [place] [address] Care Team Providers Care Physical Therapist Center Manager Name Role Phone Sammie Mahraaj MD Primary Care Provider [phone]- [phone] Loyda Glaser RN Unavailable [phone] Yasmin Ho MD Unavailable [phone] Reason for Visit * Reason Comments Med Refill Encounter Details Date Type Department Care Team (Late st Contact Info) Description 06/02/2025 Refill [facility] [address] [place], [place] [phone] Sammie Maharaj MD 230 [place], [place] [phone] Tinea unguium Social History Tobacco Use Types [...] 9:30 AM EDT Office Visit [facility] MEDICINE [address] [place] [address] Sammie Maharaj MD [address] [place] [address] documented as of this encounter Visit Diagnoses Diagnosis Tinea unguium Dermatophytosis of nail documented in this encounter Additional Health Concerns Assessment Noted Time PHQ-9 Depression Total Score: 0 10/24/19 25 9:33 AM EST documented as of this encounter Care Teams Physical Therapist Center Manager Relationship Specialty Start Date End Date Sammie Maharaj MD [address] [place] [address] PCP - General Family Medicine 10/10/18 Loyda Glaser RN [address] [place] [address] Head Of Biology Family Medicine 10/31/23 Yasmin Ho MD [address] [place] [address] Gastroenterology 08/29/24 Manuel Carpenter PA [address] [phone] Neurology 08/29/24 Paola Tolentino NP [address] [address] Endocrinology 10/24/24 [facility] Psychology Psychology 12/19/24 documented as of this encounter
--- OUTSIDE RECORDS SUMMARY | 2025-06-11 08:13 | XMS_ITS | Clinical Summary ---
Author Organization [employer] Address [address] [place] [address] [address] [place] [address] Care Team Providers Care Director Advanced Name Role Phone Sammie Maharaj MD Primary Care Provider [phone] Loyda Glaser RN Unavailable [phone] Yasmin Ho MD Unavailable Allergies Active Allergy Reactions Criticality Noted Date Comments Acetaminophen 09/09/2014 Other reaction(s): Rash Latex Rash Low 06/29/2023 Medications Continuous Glucose Sensor (FreeStyle Charlotte 3 Plus Sensor) miscIndicatio ns:Type 2 diabetes mellitus with hyperglycemia , with long-term current use of insulin (CMS/HCC) [facility] Active insulin glargine (Lantus) 100 UNIT/ML injectionIndi cations:Type 2 diabetes mellitus with hyperglycemia , with long-term current use of insulin ([facility]/HCC) Inject under the skin at bedtime. Injecting 14 units daily as directed by appraisal technician Active ursodiol (Actigall) 250 MG tabletIndicat ions:End stage liver disease (CMS/HCC) Take 250 mg by mouth [address] Marilee SOSA [facility] Active beta carotene (vitamin A) 3 MG (75[address] UT) capsuleIndica tions:End stage liver disease (CMS/HCC) Take 10,000 Units by mouth Once per day. Per SHEILA Perez at [facility] liver CLinic Active insulin pen needle (BD Pen Needle Sandy 2nd Gen) 32G x 4 mm miscIndicatio ns:End stage liver disease (CMS/HCC) Inject under the skin if needed. Use as instructed Active zonisamide (Zonegran) 100 MG capsule Take 200 mg by mouth at bedtime. Active Diclofenac Sodium 1 % gel APPLY 1 INCH TOPICALLY IN THE MORNING AND AT BEDTIME NEEDED FOR PAIN 100 g 025 Active Diclofenac Sodium 1 % gel APPLY 1 INCH TOPICALLY IN THE MORNING AND AT BEDTIME NEEDED FOR PAIN 100 g 025 2024 Discontinued Active Problems Patient Care Coordination No te Formatting of this note migh t be different from the original. [facility] provider line [phone], called 09/29/23 Breanna Burleson [phone]. cell [phone] C CONSULTANT services via BERENICE, C CONSULTANT Laxmi Mas Problem Noted Date Diagnosed Date Alopecia 03/13/2025 Overview (03/13/2025): Severe sudden onset x 1 months. Tsh normal 01/2025. Pt is chronically ill. -referral to derm 03/13/26 Assessment & Plan (03/13/2025 3:55 PM EDT): Severe sudden onset x 1 months. Tsh normal 01/2025. Pt is chronically ill. -referral to derm 03/13/26 Trochanteric bursitis of right hip 02/04/2025 Assessment & Plan (02/04/2025 11:39 AM EDT): Advised to apply heat to affected area and do stretching exercises, apply with hip exercises provided today. Use diclofenac gel as needed, may need steroid injection if pain is not controlled Advised to come to acupuncture and referred to PT Anxiety 12/19/2024 Overview (12/19/2024): -Controlled with dog, Trippy Assessment & Plan (12/19/2024 1:02 PM EDT): -Controlled with dog, Trippy Intractable headache 12/05/2024 Overview (12/05/2024): Suspect due [...] if needed. I spoke with Liz at [facility] liver transplant clinic, explained the situation and ask them to run the pictures and case by floral department specialist in case this is not related [...] Abnormal CT of the abdomen 02/23/2024 Overview (03/13/2025): CT abd pelvis ordered by [facility] liver [facility] and dated 01/28/24 IMPRESSION: 1. A 1.3 [...] RN 10:24 AM LVM for patient using artificial insemination technician, [employer] [id number], about results of MRI and scheduling of [...] AM EST): CT abd pelvis ordered by [facility] liver [facility] and dated 01/28/24 IMPRESSION: 1. A 1.3 [...] RN 10:24 AM LVM for patient using artificial insemination technician, [employer] [id number], about results of MRI and scheduling of [...] AM EDT): CT abd pelvis ordered by [facility] liver clinic and dated 01/28/24 IMPRESSION: [...] appear significantly changed from 2021, possibly reactive. 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 I called [facility] provider line [phone], 09/29/23 and spoke to Breanna Burleson [phone]. He reported extensive hx of working it pt and she was on the waiting list for starvros. Her C CONSULTANT will be Laxmi Mas her friend. -She has been approved for C CONSULTANT hours but have not started yet as of 01/18/2024 Assessment & Plan (01/18/2024 9:17 AM EDT): -she has fired several pharmacy graduate intern in the past. I called [facility] provider line [phone], 09/29/23 and spoke to Breanna Burleson [phone]. He reported extensive hx of working it pt and she was on the waiting list for starvros. Her C CONSULTANT will be Laxmi Mas her friend. -She has been approved for C CONSULTANT hours but have not started yet as of 01/18/2024 Pain in hand and fingers 09/29/2023 Overview (01/18/2024): -refer to occupational therapy 01/18/2024 Assessment & Plan (09/29/2023 11:55 AM EST): No etiology on exam. Pt high risk for dyupetryns. Recommend warm wraps and rest. Other specified health status 07/21/2023 Overview (12/19/2024): -next physical exam due after 07/09/25 -eye care facilitated by [facility] -dental home is [facility] -health care proxy paperwork filed 07/09/24 Assessment & Plan (03/13/2025 3:41 PM EDT): -next physical exam due after 07/09/25 -eye care facilitated by [facility] -dental home is [facility] -health care proxy paperwork filed 07/09/24 Assessment & Plan (12/19/2024 1:03 PM EDT): -next physical exam due after 07/09/25 -eye care facilitated by [facility] -dental [facility] is [facility] -health care proxy paperwork filed 07/09/24 Assessment & Plan (10/24/2024 9:48 AM EST): -next physical exam due after 07/09/25 -eye care facilitated by [facility] -dental home is [facility] -health care proxy paperwork given 10/20/23. Filed 07/09/24 Assessment & Plan (07/09/2024 10:17 AM EDT): -next physical exam due after 07/09/25 -eye care facilitated by [facility] -dental home is [facility] -health care proxy paperwork given 10/20/23. Filed 07/09/24 Assessment & Plan (01/18/2024 9:16 AM EDT): -next physical exam due after 07/28/2024 -eye care facilitated by [facility] -dental home is none -health care proxy paperwork given 10/20/23 Assessment & Plan (10/20/2023 9:33 AM EST): -next physical exam due after 07/28/2024 -eye care facilitated by [facility] referral placed 09/29/23 -dental home is none -health care proxy paperwork given 10/20/23 Assessment & Plan (09/29/2023 11:46 AM EST): -next physical exam due after 07/28/2024 -eye care facilitated by [facility] referral placed 09/29/23 -dental home is none Assessment & Plan (07/28/2023 10:05 AM EDT): -next physical exam due after 07/28/2024 -eye care facilitated by [facility] -dental home is none Type 2 diabetes mellitus 11/19/2021 Overview (03/13/2025): -Followed by [facility] Endocinology Diabetes are controlled. -CGM training done 10/20/23 Lab Results Component Value Date HGBA1C 4.4 03/13/2025 HGBA1C 4.6 07/09/2024 HGBA1C 4.3 01/18/2024 Lab Results Component Value Date CREATININE 0.63 12/07/2024 EGFR >60 12/07/2024 MICROALBCREU TNP 11/05/2024 MICROALBCREU TNP 07/28/2023 LDLCHOLCAL 92 10/24/2024 -Manolo/Arb: none -Statin therapy: none -anjali exam done 10/24/24 -Diabetic eye exam: done 02/25/25. -Diabetic foot exam: deferred since pt did not want to take her socks off, 07/09/25 -Continue lifestyle modifications -Continue current medications -Decrease Lantus insulin from 18-14 by endo 04/2024 Seen by [facility] endocrinology 04/18/24 Hemoglobin A1c is falsely [...] approval for her to upgrade to the free[employer]yle charlotte 3 CGM. Assessment & Plan (03/13/2025 3:49 PM EDT): -Followed by [facility] Endocinology Diabetes are controlled. -CGM training done 10/20/23 Lab Results Component Value Date HGBA1C 4.4 03/13/2025 HGBA1C 4.6 07/09/2024 HGBA1C 4.3 01/18/2024 Lab Results Component Value Date CREATININE 0.63 12/07/2024 EGFR >60 12/07/2024 MICROALBCREU TNP 11/05/2024 MICROALBCREU TNP 07/28/2023 LDLCHOLCAL 92 10/24/2024 -Manolo/Arb: none -Statin therapy: none -anjali exam done 10/24/24 -Diabetic eye exam: done 02/25/25. -Diabetic foot exam: deferred since pt did not want to take her socks off, 07/09/25 -Continue lifestyle modifications -Continue current medications -Decrease Lantus insulin from 18-14 by endo 04/2024 Seen by [facility] endocrinology 04/18/24 Hemoglobin A1c is falsely [...] approval for her to upgrade to the Ha[employer] charlotte 3 CGM. Assessment & Plan (12/19/2024 1:03 PM EDT): -Followed by [facility] Endocinology Diabetes are controlled. -CGM training [...] from 18-14 by endo 04/2024 Seen by [facility] endocrinology 04/18/24 Hemoglobin A1c is falsely [...] approval for her to upgrade to the hyaqu charlotte 3 CGM. Assessment & Plan (10/24/2024 [...] from 18-14 by endo 04/2024 Seen by [facility] endocrinology 04/18/24 Hemoglobin A1c is falsely [...] approval for her to upgrade to the hyaqu charlotte 3 CGM. Assessment & Plan (07/09/2024 [...] from 18-14 by endo 04/2024 Seen by [facility] endocrinology 04/18/24 Hemoglobin A1c is falsely [...] approval for her to upgrade to the hyaqu charlotte 3 CGM. Assessment & Plan (01/18/2024 [...] 2017 was negative. She is followed by [facility] Liver Clinic. -liver biopsy 2019 mild, [...] 2021, possibly reactive. -liver biopsy done at [facility] 05/01/24, results pending -liver biopsy results [...] Saw Transplant Hepatology and GI specialist at [facility] on 09/11/24. Per note, she remains active on LT waitlist with an updated MELD 3.0 of 19 based on blood work in April 2024. Etiology of her liver disease and progressive jaundice remains unclear despite prior MRI/MRCP and interval liver biopsy in May 2024 which was non-specific with non-specific findings which we reviewed with patient and [id number] again today. We recommended continuation of empiric [...] labs show elevated LFTs. Labs sent to floral department specialist. Due to increased bilirubin, labs were sent to floral department specialist who reports 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 Recommending redraw next week with PT and INR to update meld. Lab order was faxed. -reordered labs 12/05/24, stable and [facility] aware -CT 01/08/25 with Liver Transplant MD Impression: Cirrhosis status post TIPS. Unchanged intrahepatic biliary ductal dilatation in hepatic segment VII. No liver lesions. Mild increase in splenomegaly. Assessment & Plan (03/13/2025 3:40 PM EDT): On liver transplant list since [...] 2017 was negative. She is followed by [facility] Liver Clinic. -liver biopsy 2019 mild, [...] 202, possibly reactive. -liver biopsy done at [facility] 05/01/24, results pending -liver biopsy results [...] Saw Transplant Hepatology and GI specialist at [facility] on 09/11/24. Per note, she remains active on LT waitlist with an updated MELD 3.0 of 19 based on blood work in April 2024. Etiology of her liver disease and progressive jaundice remains unclear despite prior MRI/MRCP and interval liver biopsy in May 2024 which was non-specific with non-specific findings which we reviewed with patient and [id number] again today. We recommended continuation of empiric [...] labs show elevated LFTs. Labs sent to floral department specialist. Due to increased bilirubin, labs were sent to floral department specialist who reports chronically elevated due to [...] 2017 was negative. She is followed by [facility] Liver Clinic. -liver biopsy 2019 mild, [...] 2021, possibly reactive. -liver biopsy done at [facility] 05/01/24, results pending -liver biopsy results [...] Saw Transplant Hepatology and GI specialist at [facility] on 09/11/24. Per note, she remains active on LT waitlist with an updated MELD 3.0 of 19 based on blood work in April 2024. Etiology of her liver disease and progressive jaundice remains unclear despite prior MRI/MRCP and interval liver biopsy in May 2024 which was non-specific with non-specific findings which we reviewed with patient and [id number] again today. We recommended continuation of empiric [...] labs show elevated LFTs. Labs sent to floral department specialist. Due to increased bilirubin, labs were sent to floral department specialist who reports 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 Recommending redraw next week with PT and INR to update meld. Lab order was faxed. -reordered labs 12/05/24, stable and [facility] aware Assessment & Plan (12/05/2024 2:36 [...] 2017 was negative. She is followed by [facility] Liver Clinic. -liver biopsy 2019 mild, [...] 2021, possibly reactive. -liver biopsy done at [facility] 05/01/24, results pending -liver biopsy results [...] Saw Transplant Hepatology and GI specialist at [facility] on 09/11/24. Per note, she remains active on LT waitlist with an updated MELD 3.0 of 19 based on blood work in April 2024. Etiology of her liver disease and progressive jaundice remains unclear despite prior MRI/MRCP and interval liver biopsy in May 2024 which was non-specific with non-specific findings which we reviewed with patient and [id number] again today. We recommended continuation of empiric [...] labs show elevated LFTs. Labs sent to floral department specialist. Due to increased bilirubin, labs were sent to floral department specialist who reports chronically elevated due to [...] 2017 was negative. She is followed by [facility] Liver Clinic. -liver biopsy 2019 mild, [...] 2021, possibly reactive. -liver biopsy done at [facility] 05/01/24, results pending -liver biopsy results [...] Saw Transplant Hepatology and GI specialist at [facility] on 09/11/24. Per note, she remains active on LT waitlist with an updated MELD 3.0 of 19 based on blood work in April 2024. Etiology of her liver disease and progressive jaundice remains unclear despite prior MRI/MRCP and interval liver biopsy in May 2024 which was non-specific with non-specific findings which we reviewed with patient and [id number] again today. We recommended continuation of empiric [...] 2017 was negative. She is followed by [facility] Liver Clinic. -liver biopsy 2019 mild, [...] 202, possibly reactive. -liver biopsy done at [facility] 05/01/24, results pending -liver biopsy results [...] not drive), baths or swimming. Awaiting new C CONSULTANT provider. Daughter aware of how to call 911. Followed by neurologist, -followed by [facility]. Jono Eden at [facility] Next appointment 08/2024 -she self dc d her aspirin. I recommended she called neurology to get refills on her medication -she has been seizure free with Zonisamide 200 mg nightly and ran out of supplies 6 months ago. I recommend to resume Zonisamide since her risk of recurrent seizure is over 60% due to her prior hemorrhagic stroke. -Saw Neurologist at [facility] 08/20/24, Plan: continue ZNS 200 mg daily and follow up in one year, or sooner if needed. 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 Awaiting new C CONSULTANT provider. Daughter aware of how to call 911. Followed by neurologist, -followed by Dr. Jono Eden at [facility]. Next appointment 08/2024 -she self dc d her aspirin. I recommended she called neurology to get refills on her medication -she has been seizure free with Zonisamide 200 mg nightly and ran out of supplies 6 months ago. I recommend to resume Zonisamide since her risk of recurrent seizure is over 60% due to her prior hemorrhagic stroke. -Saw Neurologist at [facility] 08/20/24, Plan: continue ZNS 200 mg [...] not drive), baths or swimming. Awaiting new C CONSULTANT provider. Daughter aware of how to call 911. Followed by neurologist, -followed by Dr. Jono Eden at [facility]. Next appointment 08/2024 -she self dc d her aspirin. I recommended she called neurology to get refills on her medication -she has been seizure free with Zonisamide 200 mg nightly and ran out of supplies 6 months ago. I recommend to resume Zonisamide since her risk of recurrent seizure is over 60% due to her prior hemorrhagic stroke. -Saw Neurologist at [facility] 08/20/24, Plan: continue ZNS 200 mg [...] not drive), baths or swimming. Awaiting new C CONSULTANT provider. Daughter aware of how to call 911. Followed by neurologist, -followed by Dr. Jono Eden at [facility]. Next appointment 08/2024 -she self dc d her aspirin. I recommended she called neurology to get refills on her medication -she has been seizure free with Zonisamide 200 mg nightly and ran out of supplies 6 months ago. I recommend to resume Zonisamide since her risk of recurrent seizure is over 60% due to her prior hemorrhagic stroke. -Has follow up on Aug 20 at [facility] Assessment & Plan (10/20/2023 8:57 AM [...] word finding difficulties Cerebral artery occlusion 11/21/2014 Other insomnia 07/21/2012 Overview (06/29/2023): Could be [...] in her care. She has had multiple pharmacy graduate intern which she has fired and multiple case [...] in her care. She has had multiple pharmacy graduate intern which she has fired and multiple case [...] in her care. She has had multiple pharmacy graduate intern which she has fired and multiple case [...] in her care. She has had multiple pharmacy graduate intern which she has fired and multiple case [...] Problem Noted Date Diagnosed Date Resolved Date Swelling of right ear 12/19/20242024 Overview (12/19/2024): [facility] (12/08/2024 - 12/10/2024) Patient presented for evaluation [...] symptoms resolved. Pt called her specialist in [place]. She is doing much better. She showed me a photo of her year that was severely inflamed with vesicles and erythremia. This has resoled and no longer on prednisone. She requests letter to keep her dog at home due to her anxiety. Assessment & Plan (12/19/2024 1:01 PM EDT): [facility] (12/08/2024 - 12/10/2024) Patient presented for evaluation [...] symptoms resolved. Pt called her specialist in [place]. She is doing much better. She showed me a photo of her year that was severely inflamed with vesicles and erythremia. This has resoled and no longer on prednisone. She requests letter to keep her dog at home due to her anxiety. 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 At times she has had a transient hepatitis B positive test, but that might have been passive after blood transfusion. Last HBV PCR January 2017 was negative. She is followed by [facility] Clinic. -liver biopsy 2019 mild, [...] Ho MD of [facility] 12/12/2023, note reviewed Cirrhosis: [...] diet discussed. Avoid hepatotoxic agents. -Followed by: [facility] -continue ursodiol therapy given marked AP elevation and potential for AMA negative PCB. -transplant candidacy will be determined by multidisciplinary transplant committee after all appropriate testing has been performed. -Has follow up with liver transplant oracle identity management consultant on at [facility] -Per pt, On liver transplant list [...] 2017 was negative. She is followed by [facility] Liver Clinic. -seen by Liver Transplant [...] diet discussed. Avoid hepatotoxic agents. -Followed by: [facility] GI -continue ursodiol therapy given marked AP elevation and potential for AMA negative PCB. -transplant candidacy will be determined by multidisciplinary transplant committee after all appropriate testing has been performed. -call place by me to CCA nanny caregiver at [facility] [phone] to stress the urgency of C CONSULTANT services and increase level of care. He [...] 2017 was negative. She is followed by [facility] Liver Clinic. -seen by Liver Transplant [...] diet discussed. Avoid hepatotoxic agents. -Followed by: [facility] GI -continue ursodiol therapy given marked AP elevation and potential for AMA negative PCB. -transplant candidacy will be determined by multidisciplinary transplant committee after all appropriate testing has been performed. -call place by me to CCA nanny caregiver at [facility] [phone] cell [phone] to stress the urgency of C CONSULTANT services and increase level of care. He [...] 2017 was negative. She is followed by [facility] Liver Clinic. The possibility for liver [...] my - Last note from GI 04/2021. Encounters Date Type Department Care Team Description 06/02/2025 Refill [facility] [address] [place] [address] Miriam Shipman MD 06/02/2025 Refill [facility] [address] [place] [address] Sammie Maharaj MD Tinea unguium 05/28/2025 Abstract [facility] [address] [place] [address] Laya Azul MA 04/19/2025 Orders Only [facility] [address] [place] [id number] Sammie Maharaj MD 04/19/[address] [address] Loyda Glaser, zipper cutter Orders 04/12/2025 Refill [facility] [address] [place] [id number] Sammie Maharaj MD Tinea unguium 04/03/[address] [address] Sammie Maharaj MD Mammo order 04/03/2025 Orders Only [address] [address] Sammie Maharaj MD Screening mammogram for breast cancer (Primary Dx) 04/02/[address] [address] Sammie Maharaj MD Paperwork/Forms; Appointment Request 03/13/2025 3:30 PM EDT Office Visit [address] [address] Sammie Maharaj MD Type 2 diabetes mellitus with hyperglycemia, with long-term current use of insulin (CMS/HCC) (Primary Dx); End stage liver disease (CMS/HCC); Complex care coordination; Complex partial seizure (CMS/HCC); Other specified health status; Alopecia 03/13/2025 Refill [facility] [address] [place] [id number] Sammie Maharaj MD Tinea unguium 03/13/2025 Travel from Last 3 Months Immunizations Immunization Administration Dates Next Due DTaP, 5 pertussis antigens 04/03/2010 Hep A, Adult 05/01/2009,02/29/2008 Hep B, adult 09/29/2023,07/28/2023,07/13/2019 Hib ([facility]) 06/11/2009 Influenza injectable quadriv alent IIV4 [...] want or need it 10/10 Comments Unknown Intention Date Recorded No desire to become (finding) 0 03/13/2025 Sex and Gender Information Value Date Recorded Sex Assigned at Female 08/09/2022 10:18 AM EDT Legal Sex Female 10:18 AM EDT Gender Identity Female 08/09/2022 10:18 AM EDT Sexual Orientation Straight 08/09/2022 10 :18 AM EDT Last Filed Vital Signs Vital Sign Reading Time Taken Comments Blood Pressure 130/74 03/13/2025 3:29 PM EDT Pulse 87 03/13/2025 3:29 PM EDT Temperature 37.2 C (98.9 F) 03/13/2025 3:29 PM EDT Respiratory Rate 20 03/13/2025 3:29 PM EDT Oxygen Saturation 100% 03/13/2025 3:29 PM EDT Inhaled Oxygen Concentration - - Weight 52 kg (114 lb 9.6 oz) 03/13/2025 3:29 PM EDT Height 147.3 cm (4' 10 ) 12/03/2024 10:39 AM EST Body Mass Index 23.95 12/03/2024 10:39 AM EST Plan of Treatment Upcoming Encounters Date Type Department Care Team (Late st Contact Info) Description 07/03/2025 9:30 AM EDT Office Visit [facility] [address] [place] [address] Sammie Maharaj MD [address] [place] [address] Health Maintenance Due Date Last Done Comments Disability Screening 1980 HPV Vaccines (1 - Risk 3-dose SCDM series) 2008 Zoster Vaccines (2 of 2) 12/16/2023 10/21/2023 COVID-19 Vaccine (4 - Pfizer risk 2023- season) 2025 07/09/2024, 08/29/2023, 03/17/2021 Influenza Vaccine (#1) 2025 , 07/28/2023, 06/25/2022, Additional history exists Diabetes: Hemoglobin A1C 09/12/202503/13/ 025, 07/09/2024, 01/18/2024, Additional history exists Alcohol/Substance Use Screening 10/24/2025 10/24/2024 Depression Screening 10/24/2025 10/24/2024, 10/24/19 Diabetes: Foot Exam 10/24/2025 10/24/2024, 10/24/2024, 10/24/2024, Additional history exists Lipid Panel 10/24/2025 10/24/2024, 07/10, 12/07/2021, Additional history exists SDOH Screening 10/24/2025 10/24/2024 Diabetes: Urine Protein Screening 11/05/2025 11/05/2024, 04/26/2024, 07/28/2023, Additional history exists Family Planning (PISQ) 03/13/2026 03/13/2025 Tobacco Screening 03/13/2026 03/13/2025 Cervical Cancer Screening 03/25/2026 HPV/Cotest 03/25/2026 Pap Smear 03/25/2026 03/25/2021 Eye Exam 02/25/2027 02/25/2025, 02/07, 02/25/2025, Additional history exists Mammogram 05/28/2027 05/28/2025, 05/10, 09/06/2023 DTaP/Tdap/Td Vaccines (4 - Td or Tdap) [...] Years) and At-Risk Patients (6 to 49) Years Completed 07/28/2023, 06/26/2011, 06/11/2009, Additional history exists Hepatitis B Vaccines Completed 09/29/2023, 07/28/2023, 07/13/2019 IPV Vaccines Aged Out No longer eligi ble based on patient's age to complete this topic Meningococcal B Vaccine Aged Out No l onger eligible based on patient's age to complete this topic RSV under 20 months Aged Out No longe r eligible based on patient's age to complete this topic Rotavirus Vaccines Aged Out No longer eligible based on patient's age to complete this topic Procedures Procedure Name Priority Date/Time Associated Diagnosis Comments HM MAMMOGRAPHY Routine 05/28/2025 2:48 PM EDT BI MAMMOGRAM SCREENING TOMOSYNTHESIS BILATERAL Routine 05/23/2025 11:45 AM EDT Screening mammogram for breast cancer T-SPOT(R).TB Routine 04/19/2025 9:59 AM EDT COMPREHENSIVE METABOLIC PANEL Routine 04/19/2025 9:59 AM EDT End stage liver disease (CMS/HCC) PROTHROMBIN TIME-INR Routine 04/19/2025 9:59 AM EDT End stage liver disease (CMS/HCC) HEPATIC FUNCTION PANEL Routine 9:59 AM EDT End stage liver disease (CMS/HCC) POCT GLUCOSE Routine 03/13/2025 3:45 PM EDT Type 2 diabetes mellitus with hyperglycemia, with long-term current use of insulin (CMS/HCC) POCT GLYCOSYLATED HEMOGLOBIN (HGB A1C) Routine 03/13/2025 3:44 PM EDT Type 2 diabetes mellitus with hyperglycemia, with long-term current use of insulin (CMS/HCC) ALBUMIN, RANDOM URINE W/CREATININE Routine 11/05/2024 10:20 AM EST Type 2 diabetes mellitus with hyperglycemia, with long-term current use of insulin (CMS/HCC) LIPID PANEL, STANDARD Routine 10/24/2024 9:59 AM EST Type 2 diabetes mellitus with hyperglycemia, with long-term current use of insulin (CMS/HCC) HEPATITIS C ANTIBODY Routine 07/28/2023 10:55 AM EDT Routine screening for STI (sexually transmitted infection) HIV ANTIBODY/ANTIGEN (MO DPH) Routine 07/28/2023 10:55 AM EDT PAP SMEAR Routine 03/25/2021 12:00 AM EDT from Last 3 Months or Most Recently Relevant to Health Maintenance Results * Mammography (05/28/2025 2:48 PM EDT) Mammogram BIRADS 1 Normal, Abnormal, BIRADS 1 , BIRADS 2 Anatomical Region Laterality Modality Other Historical Provider MD HEALTH MAINTENANCE Final Result * BI Mammogram Screening Tomosynthesis Bilateral (05/23/2025 11:45 AM EDT) Anatomical Region Laterality Modality Breast Bilateral Mammography 05/23/2025 11:4 5 AM EDT Narrative 05/28/2025 12:18 PM EDT [facility] [address] [place] [address] Mammography Report Signed Patient: Aubrie Brewer MR#: [id number] : 1980 Acct:[id number] Age/Sex: 45 / F ADM Date: 05/23/25 Loc: HO.MAMMO Attending Dr: Sammie Maharaj MD Ordering Physician: Sammie Maharaj MD Results: 1N egative Date of Service: 05/23/25 Follow Up: 1 Year From Orig ina Mammogram Procedure(s): MM tomosynthesis screening BI Accession Number(s): [id number] cc: Sammie Maharaj MD EXAMINATION: MM SCREENING DIGITAL BREAST TOMOSYNTHESIS, BILATERAL CLINICAL INFORMATION: Screening. Asymptomatic. COMPARISON: Mammography: Comparison is made with available priors TECHNIQUE: Digital breast mammography with tomosynthesis is performed in both the craniocaudal and mediolateral oblique views along with computer-aided detection (CAD). FINDINGS: There are scattered areas of fibroglandular [...] target due date for their next mammogram. Electronically signed by: Heidi Kruse DO 05/28/2025 12:15 PM EDT Dictated By: Heidi Kruse DO Signed By: <Electronically signed by Heidi Kruse DO in OV> 05/28/25 1215 DD/ 1145 TD/TT: 05/23/25 1210 Java Architect: Procedure Note Donotuseinterpreter, Image - [facility]/28/[facility] [address] [place] [address] Mammography Report Signed Patient: Aubrie BrewerMR#: [id number] : 1980Acct:[id number] Age/Sex: 45 / FADM Date: 05/23/25 Loc: HO.MAMMO Attending Dr: Sammie Maharaj MD Ordering Physician: Sammie Maharaj MDResults: 1N egative Date of Service: 05/23/25Follow Up: 1 Year From [facility] Mammogram Procedure(s): MM tomosynthesis screening BI Accession Number(s): [id number] cc: Sammie Maharaj MD EXAMINATION: MM SCREENING DIGITAL BREAST TOMOSYNTHESIS, BILATERAL CLINICAL INFORMATION: Screening. Asymptomatic. COMPARISON: Mammography: Comparison is made with available priors TECHNIQUE: Digital breast mammography with tomosynthesis is performed in both the craniocaudal and mediolateral oblique views along with computer-aided detection (CAD). FINDINGS: There are scattered areas of fibroglandular [...] target due date for their next mammogram. Electronically signed by: Heidi Kruse DO 05/28/2025 12:15 PM EDT RP Dictated By: Heidi Kruse DO Signed By: <Electronically signed by Heidi Kruse DO in OV> 05/28/25 1215 DD/ 1145 TD/TT: 05/23/25 1210 Java Architect: us Sammie Maharaj MD IM BI PROCEDURES Final Re sult * T-SPOT??.TB (04/19/2025 9:59 AM EDT) T Spot TB Negative Negative [facility] Comment:A negative test resu lt does not exclude the possibilityof exposure to or infection with Mycobacteriumtuberculosis (M. tuberculosis). Patients with recentexposure to TB infected individuals exhibiting anegative T-SPOT.TB result should be considered forretesting within 6 weeks or if other relevant clinicalsymptoms indicate. Results from T-SPOT.TB testing mustbe used in conjunction with each individual'sepidemiological history, current medical status,and results of other diagnostic evaluations.The T-SPOT.TB test is qualitative and results arereported as positive, borderline, or negative, giventhat the test controls perform as expected. In linewith the Centers for Disease Control and Prevention's2010 recommendation to report quantitative measurementsalongside the qualitative result, the laboratoryprovides spot counts for informational purposes only.The T-SPOT.TB test should not be interpreted as aquantitative test. TS PANEL A 0 [facility] TS PANEL B 2 [facility] Negative Control Passed [facility] Positive Control Passed [facility] Comment:For additional infor clifford, please refer tohttp://education.[employer]/faq/RYY966(This link is being provided for informational/educational purposes only.)THIS TEST WAS PERFORMED AT:[employer] [id number] [place] [address]XWCZOYUSHASHA FRANZ MD,PHD 04/19/2025 9:59 AM EDT 04/19/2025 11:19 AM EDT Sammie Maharaj MD LAB BLOOD ORDERABLES Final Result Performing Organization Address City/[facility]/ZIP Co de Phone Number [facility] [address] [place] [address] [phone] * Prothrombin Time-INR (04/19/2025 9:59 AM EDT) Prothrombin Time 12.3 10.9 - 12.4 SEC [facility] INTERNATIONAL NORM RATIO 1.1 0.9 - 1.1 [facility] Comment:INTERNATIONAL NORMAL IZED RATIO (INR) REFERENCE RANGES Reference RangeFor patients not on anticoagulant therapy: 0.9 - 1.1INR ranges for oral anticoagulanttherapy:For prevention and treatment of venous thrombosis and pulmonary embolism: 2.0 - 3.0For acute myocardial infarction with aspirin therapy: 2.0 - 3.0For acute myocardial infarction without aspirin therapy: 3.0 - 4.0For patients with mechanical prosthetic heart valves: 2.5 - 3.5 Blood Venous blood specimen / Unknown 04/19/2025 9:59 AM EDT 04/19/2025 11:19 AM EDT Sammie Maharaj MD LAB BLOOD ORDERABLES Final Result Performing Organization Address [facility] Co de Phone Number [facility] [address] [place] [address] [phone] * (ABNORMAL) Hepatic Function Panel (04/19/2025 9:59 AM EDT) Bilirubin, Direct 6.9(H) 0.0 - 0.5 mg/dL [facility] Comment:Mild Icterus. Blood Venous blood specimen / Unknown 04/19/2025 9:59 AM EDT 04/19/2025 11:17 AM EDT Sammie Maharaj MD LAB BLOOD ORDERABLES Final Result [facility] [address] [place] [address] [phone] * (ABNORMAL) Comprehensive Metabolic Panel (04/19/2025 9:59 AM EDT) Sodium 138 135 - 145 mmol/L [facility] Potassium 3.3 3.3 - 5.1 mmol/L [facility] Chloride 111(H) 96 - 108 mmol/L [facility] Carbon Dioxide 20(L) 22 - 29 mmol/L [facility] Anion Gap 10(L) 12 - 20 [facility] Urea Nitrogen (BUN) 14 9 - 16 mg/dL [facility] Creatinine, Serum 0.57 0.5 - 1.4 mg/dL [facility] Comment:Mild Icterus.Interpr et result with caution. Estimated Glomerular Filt Rate >60 [facility] Comment:Chronic Kidney Disea se: Estimated GFR < 60 mL/min/1.41q3Upbhlp Kidney Disease: Estimated GFR < 15 mL/min/1.73m2 Glucose 188(H) 60 - 115 mg/dL [facility] Calcium 8.9 8.4 - 10.2 mg/dL [facility] Bilirubin, Total 9.3(H) 0.0 - 1.0 mg/dL [facility] Comment:Mild Icterus. Aspartate Amino Transferase 140(H) 5 - 31 U/L [facility] Alanine Aminotransferase 117(H) 0 - 31 U/L [facility] Total Protein 6.4(L) 6.5 - 8.0 g/dL [facility] Albumin Level 3.3(L) 3.5 - 5.0 g/dL [facility] Alkaline Phosphatase 1,039(H) 39 - 117 U/L [facility] Blood Venous blood specimen / Unknown 04/19/2025 9:59 AM EDT 04/19/2025 11:17 AM EDT Result [facility] Sammie Maharaj MD LAB BLOOD ORDERABLES Final Result [facility] [address] [place] [address] [phone] * POCT glucose manually resulted (03/13/2025 3:45 PM EDT) Glucose Blood, POC 183 60 - 200 mg/dL QC Media Lot # [id number] Lot# Expiration Date Blood Capillary blood specimen / Unknown 03/13/2025 3:45 PM EDT Result [facility] Sammie Maharaj MD POINT OF CARE TEST ENTER/E DIT ORDERABLES Final Result * POCT glycosylated hemoglobin (Hgb A1c) (03/13/2025 3:44 PM EDT) Hemoglobin A1C 4.4 4.0 - 6.0 % QC Media Lot # [id number] Lot# Expiration Date Blood Capillary blood specimen / Unknown 03/13/2025 3:44 PM EDT Result [facility] Sammie Maharaj MD POINT OF CARE TEST ENTER/E DIT ORDERABLES Final Result * Albumin, Random Urine W/Creatinine (11/05/2024 10:20 AM EST) Creatinine, Urine 59.34 mg/dL [facility] Microalbumin Urine <5.0 mg/L [facility] Microalbum Creatinine Ratio Ur TNP <30 ug/mg cr [facility] Comment:Unable to calculate albumin/creatinine ratio due to lowmicroalbumin or creatinine result. Urine 11/05/2024 10:2 0 AM EST 11/05/2024 11:21 AM EST Result [facility] Sammie Maharaj MD LAB URINE ORDERABLES Final Result Performing Organization Address City/[facility]/ZIP Co de Phone Number [facility] [address] [place] [address] [phone] * (ABNORMAL) Lipid Panel, Standard (10/24/2024 9:59 AM EST) Triglycerides 91 <150 mg/dL [facility] Comment:Mild Icterus.Interpr et result with caution.Desirable Triglyceride: less than 150 mg/dLBorderline High Triglyceride 150-199 mg/dLHigh Triglyceride: 200-499 mg/dLVery High Triglyceride: greater than or equal to 5OO mg/dL Cholesterol 132 <200 mg/dL [facility] Comment:Mild Icterus.Interpr et result with caution.Desirable Cholesterol: less than 200 mg/dLBorderline High Cholesterol: 200-239 mg/dLHigh Cholesterol: greater than 239 mg/dL LDL Cholesterol Calculated 92 <100 mg/dL [facility] Comment:Desirable LDL: less than 100 mg/dLNear Optimal/Above Optimal LDL: 110- 129 mg/dLBorderline High LDL: 130-159 mg/dLHigh LDL: 160-189 mg/dLVery High LDL: greater than or equal to 190 mg/dL HDL Cholesterol 22(L) >40 mg/dL [facility] Comment:Desirable HDL: great er than 40 mg/dL Note: This HDL assay may give artificially low results in patients with liver disease. Blood Venous blood specimen / Unknown 10/24/2024 9:59 AM EST 10/24/2024 11:05 AM EST Sammie Maharaj MD LAB BLOOD ORDERABLES Final Result Performing Organization Address City/[facility]/ZIP Co de Phone Number [facility] [address] [place] [address] [phone] * Hepatitis C Ab (07/28/2023 10:55 AM EDT) Hepatitis C Antibody Nonreactive Nonreactive [facility] Comment:Antibodies to HCV no t detected; does not exclude early acuteHCV infection. Blood 07/28/2023 10:5 5 AM EDT 07/28/2023 1:11 PM EDT Sammie Maharaj MD LAB BLOOD ORDERABLES Final Result Performing Organization Address [facility]/ZIP Co de Phone Number [facility] [address] [place] [address] [phone] * HIV Ab/Ag ([facility]) (07/28/2023 10:55 AM EDT) Pathologist [facility] HIV AB/AG Nonreactive Nonreactive [facility] Comment:HIV-1 p24 Ag and/or HIV-1/HIV-2 Ab not detected.A test result that is nonreactive does not exclude thepossibility of exposure to or infection with HIV-1 and/orHIV-2. Nonreactive results in this assay for individualswith prior exposure to HIV-1 and/or HIV-2 may be due toantigen and antibody levels that are below the limit ofdetection of this assay.The [employer] HIV Ag/Ab Combo assay result andsupplemental assay results should be interpreted inconjunction with the patient's clinical presentation,history and other laboratory results. If the results areinconsistent with clinical evidence, additional testing issuggested to confirm the result. 07/28/2023 10:5 5 AM EDT 07/28/2023 1:11 PM EDT Sammie Maharaj MD LAB BLOOD ORDERABLES Final Result Performing Organization Address [facility]/ZIP Co de Phone Number [facility] [address] [place] [address] [phone] * Pap Smear (03/25/2021 12:00 AM EDT) Swab Brendon Anthony MD LAB CYTOLOGY ORDERABLES F inal Result Performing Organization Address City/[facility]/ZIP Co de Phone Number IMAGING from Last 3 Months or Most Recently Relevant to Health Maintenance Insurance [facility] < 65 [place] [id number] Advance Directives Documents on File Type Date Recorded Patient Convention Worker Expl anation Advance Directives and Living Will 07/09/2024 Health Care Proxy 07/09/24 Care Teams Director Advanced Relationship Specialty Start Date End Date Chase, MD Sammie [address] [place] [address] PCP - General Family Medicine 10/10/18 Loyda Glaser, RN [address] [place] [address] Senior Clinical Consultant Family Medicine 10/31/23 Yasmin Ho MD [address] [place] [phone] Gastroenterology 08/29/24 Manuel Carpenter PA [address] [address] Neurology 08/29/24 Paola Tolentino NP [address] [address] Endocrinology 10/24/24 [facility] Psychology Psychology 12/19/24
--- OUTSIDE RECORDS SUMMARY | 2025-06-11 08:13 | XMS_ITS | Encounter Summary ---
Author Organization [employer] Address [address] [facility] [address] [place] [address] Care Team Providers Care Plumbing Designer Name Role Phone Sammie Maharaj MD Primary Care Provider [phone] Loyda Glaser RN Unavailable [phone] Yasmin Ho MD Unavailable [phone] Encounter Details Date Type Department Care Team (Late st Contact Info) Description 05/28/2025 Abstract [facility] [address] [place] [address] Laya Azul MA Social History Tobacco Use [...] t he electric, gas, oil or water [employer] threatened to shut off services in your [...] Description 07/03/2025 9:30 AM EDT Office Visit [facility] [address] [place] [address] [phone] Sammie Maharaj MD [address] [place] [address] [phone] documented as of this encounter Procedures Procedure Name Priority Date/Time Associated Diagnosis Comments MAMMOGRAPHY Routine 05/28/2025 2:48 PM EDT documented in this encounter Results * Mammography (05/28/2025 2:48 PM EDT) Mammogram BIRADS 1 Normal, Abnormal, BIRADS 1 , BIRADS 2 Anatomical Region Laterality Modality Other Historical Provider HEALTH MAINTENANCE Final Result documented in this encounter Visit Diagnoses Not on filedocumented in this encounter Additional Health Concerns Assessment Noted Time PHQ-9 Depression Total Score: 0 10/24/19 25 9:33 AM EST documented as of this encounter Care Teams Plumbing Designer Relationship Specialty Start Date End Date Sammie Maharaj MD [address] [place] [address] [phone] PCP - General Family Medicine 10/10/18 Loyda Glaser, ERVIN [address] [place] [address] [phone] Facilities Painter Family Medicine 10/31/23 Yasmin Ho MD [address] [place], [place] [phone] Gastroenterology 08/29/24 Manuel Carpenter PA [address] [address] Neurology 08/29/24 Paola Tolentino, ARMOR RECONNAISSANCE SPECIALIST [address] [address] Endocrinology 10/24/24 [facility] Psychology Psychology 12/19/24 documented as of this encounter
--- OUTSIDE RECORDS SUMMARY | 2025-06-11 08:13 | XMS_ITS | Encounter Summary ---
Author Organization [employer] Address [address] [facility] [address] [place] [address] Care Team Providers Care Employee Development Specialist Name Role Phone Sammie Maharaj MD Primary Care Provider [phone] Loyda Glaser RN Unavailable [phone] Yasmin Ho MD Unavailable Reason for Visit * Reason Comments Med Refill Encounter Details Date Type Department Care Team (Late st Contact Info) Description 10/24/[address] [facility] [address] [place], [place] [phone] Sammie Maharaj MD [address] [place], [place] [phone] Microcytic anemia Social History Tobacco Use Types [...] AM EDT documented as of this encounter Functional Status * Over the past 2 weeks, how often have you been bothered by any of the following problems? Question Answer Date of Assessment Author Patient Health Questionnaire-2 Score 0 10/10 9:33 AM Laya [place] MA * Little interest or pleasure in doing things Answer Date of Assessment Author Not at all 10/24/2024 9:33 AM Farzaneh Mcneill MA * Feeling down, depressed, or hopeless Answer Date of Assessment Author Not at all 10/24/2024 9:33 AM Farzaneh Mcneill MA * Trouble falling or staying asleep, or sleeping too much Answer Date of Assessment Author Not at all 10/24/2024 9:33 AM Farzaneh Mcneill MA * Feeling tired or having little energy Answer Date of Assessment Author Not at all 10/24/2024 9:33 AM Farzaneh Mcneill MA * Poor appetite or overeating Answer Date of Assessment Author Not at all 10/24/2024 9:33 AM Farzaneh Mcneill MA * Feeling bad about yourself - or that you are a failure or have let yourself or your family down Answer Date of Assessment Author Not at all 10/24/2024 9:33 AM Farzaneh Mcneill MA * Trouble concentrating on things, such as reading the newspaper or watching television Answer Date of Assessment Author Not at all 10/24/2024 9:33 AM JOSEE zAul, Farzaneh au MA * Moving or speaking so slowly that other people could have noticed? Or the opposite - being so fidgety or restless that you have been moving around a lot more than usual. Answer Date of Assessment Author Not at all 10/24/2024 9:33 AM JOSEE Azul, Farzaneh au MA * Thoughts that you would be better off or hurting yourself in some way Answer Date of Assessment Author Not at all 10/24/2024 9:33 AM JOSEE Azul, Farzaneh au MA * Patient Health Questionnaire-9 Score Answer Date of Assessment Author 0 10/24/2024 9:33 AM Farzaneh Mcneill MA documented as of this encounter Plan of Treatment Upcoming Encounters Date Type Department Care Team (Late st Contact Info) Description 07/03/2025 9:30 AM EDT Office Visit [facility] [address] [place] [phone] Sammie Maharaj MD [address] [place] [phone] documented as of this encounter Visit Diagnoses Diagnosis Microcytic anemia Unspecified iron deficiency anemia documented in this encounter Additional Health Concerns Assessment Noted Time PHQ-9 Depression Total Score: 0 10/24/19 25 9:33 AM EST documented as of this encounter Care Teams Employee Development Specialist Relationship Specialty Start Date End Date Sammie Maharaj MD [address] [place] [phone] PCP - General Family Medicine 10/10/18 Loyda Glaser RN [address] [place] [phone] Die Set Up Worker Family Medicine 10/31/23 Yasmin Ho MD [address] [place] [phone] Gastroenterology 08/29/24 Manuel Carpenter PA [address] [address] Neurology 08/29/24 Paola Tolentino, REPEAT CHIEF [address] [address] Endocrinology 10/24/24 [facility] Psychology Psychology 12/19/24 documented as of this encounter
--- OUTSIDE RECORDS SUMMARY | 2025-06-11 08:13 | XMS_ITS | Encounter Summary ---
Author Organization [employer] Address 75 [facility] 7t [place] [address] Care Team Providers Care Welt Stitcher Name Role Phone Sammie Maharaj MD Primary Care Provider +[phone]- [phone] Loyda Glaser RN Unavailable [phone] Yasmin Ho MD Unavailable [phone] Reason for Visit * Reason Comments Med Refill Encounter Details Date Type Department Care Team (Late st Contact Info) Description 11/18/2023 Refill [facility] [address] [place] [address] Tara Carlisle, DMOENICO Tinea unguium Social History Tobacco Use Types [...] 07/03/2025 9:30 AM EDT Office Visit [facility] MEDICINE [address] [place] [address] Sammie Maharaj MD [address] [place] [address] documented as of this encounter Visit Diagnoses Diagnosis Tinea unguium Dermatophytosis of nail documented in this encounter Additional Health Concerns Assessment Noted Time PHQ-9 Depression Total Score: 0 07/28/20 9:42 AM EDT documented as of this encounter Care Teams Welt Stitcher Relationship Specialty Start Date End Date Sammie Maharaj MD [address] [place] [address] PCP - General Family Medicine 10/10/18 Loyda Glaser RN [address] [place] [phone] Publication Director Family Medicine 10/31/23 Yasmin Ho MD [address] [place] [address] Gastroenterology 08/29/24 Manuel Carpenter PA [facility] [address] Neurology 08/29/24 Paola Tolentino, TECHNOLOGY COACH [address] [address] Endocrinology 10/24/24 [facility] Psychology Psychology 12/19/24 documented as of this encounter
--- OUTSIDE RECORDS SUMMARY | 2025-06-11 08:14 | XMS_ITS | Encounter Summary ---
Author Organization [facility] Address [address] [place] [address] Care Team Providers Care Metal Tile Lather Name Role Phone aSmmie Maharaj Primary Care Provider [phone] Reason for Referral * Consultation (Routine) - Authorized Specialty Diagnoses / Procedures Referred By Edu danielson Referred To Contact Dermatology Diagnoses Alopecia Sammie Maharaj [address] [place] [address] Phone: tel: fax: Perlita Choe MD [address] [place] [address] Phone: tel: fax: Referral ID Status Reason Start Date Expiration Date Visits Requested Visits Authorized [id number] Authorized Specialty Services Required 03/29/2025 04/28/2026 6 6 Encounter Details Date Type Department Care Team (Late st Contact Info) Description 03/29/2025 Transcribe Orders [facility] Physician Referral Services [address] [place] [address] Sammie Maharaj [address] [place], [place] [phone] Alopecia (Primary Dx) Social History Tobacco Use Types [...] Description 06/21/2025 1:15 PM EDT Office Visit [facility] Dermatology Clinic 4th Floor 281 [facility], [place] [address] Nougat Cutter Machine: Perlita Powers MD [address] [place] [address] 07/17/2025 8:00 AM EDT Office Visit [facility] Diabetes Clinic [address] [place] [address] Nougat Cutter Machine: Paola Vance NP [address] [place] [address] 08/27/2025 9:00 AM EST Follow-Up [facility] Liver Transplant Services [address] [place] [address] Yasmin Ho MD [address] [place] [address] 09/23/2025 8:00 AM EST Office Visit [facility] [address] [place] [address] Nougat Cutter Machine: Rocio Walden, RN NEW GRADUATE [address] [place] [address] 03/25/2026 9:30 AM EDT Office Visit [facility] [address] [place] [address] Nougat Cutter Machine: Natasha Rubalcava MD [address] [place] [address] Scheduled Referrals Name Type Priority Associated Diagnoses Order Schedule Ambulatory referral to Dermatology Outpatient Referral Routine Alopecia Expected: 03/29/2025, Expires: 04/28/2026 documented as of this encounter Visit Diagnoses Diagnosis Alopecia- Primary documented in this encounter Care Teams Metal Tile Lather Relationship Specialty Start Date End Date Sammie Maharaj: [phone] [address] [place] [address] PCP - General Family Medicine 05/15/18 documented as of this encounter
--- OUTSIDE RECORDS SUMMARY | 2025-06-11 08:14 | XMS_ITS | Encounter Summary ---
Demographics Address 17 [facility] [address] [place] [address] Mobile Phone Home Phone Preferred Language Czech; Castilian Marital Status Single Mormonism Affiliation Unknown Race Unknown Ethnic Group Unknown Author Organization [facility] Address [address] [place] [address] Support Name Relationship Address Phone Orion Rubio Daughter [address] [facility] [address] [place] [address] Care Team Providers Care Firm Administrator Name Role Phone Sammie Maharaj Primary Care Provider [phone]- [phone] Encounter Details Date Type Department Care Team (Late st Contact Info) Description 04/12/[address] [facility] Interventional Radiology [address] [place] [address] Bonny Momin MD [address] [place] [address] Social History Tobacco Use Types Packs/Day Years [...] Description 06/21/2025 1:15 PM EDT Office Visit [facility] Dermatology Clinic 4th Floor [address] [place] [address], [place] [phone] Shuttle Operator: Perlita Powers MD [address] [place] [address] 07/17/2025 8:00 AM EDT Office Visit [facility] Diabetes [facility] [address] [place] [address] Shuttle Operator: Paola Vance NP [address] [place] [address] 08/27/2025 9:00 AM EST Follow-Up [facility] Liver Transplant Services [address] [place] [address] Yasmin Ho MD [address] [place] [address] 09/23/2025 8:00 AM EST Office Visit [facility] [address] [place] [address] Shuttle Operator: Rocio Walden NP [address] [place] [address] 03/25/2026 9:30 AM EDT Office Visit [facility] [address] [place] [address] Shuttle Operator: Natasha Rubalcava MD [address] [place] [address] documented as of this encounter Goals Goal Patient Goal Type Associated Problems Recent Progress Patient-Stated? Author Autogenerat ed Goal Care Plan Autogenerated Problem No Tena Fofana documented as of this encounter Visit Diagnoses Not on filedocumented in this encounter Additional Health Concerns Active Problems Noted Date Diagnosed Date Autogenerated Problem 04/09/2025 documented as of this encounter Care Teams Firm Administrator Relationship Specialty Start Date End Date Sammie Maharaj [address] [place] [address] PCP - General Family Medicine 05/15/18 documented as of this encounter
--- OUTSIDE RECORDS SUMMARY | 2025-06-11 08:14 | XMS_ITS | Encounter Summary ---
Author Organization [employer] Address 75 [facility] 7t [place] [address] Care Team Providers Care Shingle Cutter Name Role Phone Sammie Maharaj MD Primary Care Provider [phone]- [phone] Loyda Glaser RN Unavailable [phone] Yasmin Ho MD Unavailable Reason for Visit * Reason Onset Date Comments Appointment Request 10/20/2023 Encounter Details Date Type Department Care Team (Late st Contact Info) Description 10/20/2023 Telephone [facility] MEDICINE [address] [place] [address] Sammie Maharaj MD [address] [place], [place] [phone] Appointment Request Social History Tobacco Use Types [...] and reschedule appt for 11/03/2023 @ 9:30 report writer did cancel per patients request documented in this encounter Plan of Treatment Upcoming Encounters Date Type Department Care Team (Late st Contact Info) Description 07/03/2025 9:30 AM EDT Office Visit [facility] MEDICINE [address] [place] [address] Sammie Maharaj MD [address] [place] [address] documented as of this encounter Visit Diagnoses Not on filedocumented in this encounter Additional Health Concerns Assessment Noted Time PHQ-9 Depression Total Score: 0 07/28/20 9:42 AM EDT documented as of this encounter Care Teams Shingle Cutter Relationship Specialty Start Date End Date Sammie Maharaj MD [address] [place] [address] [phone] PCP - General Family Medicine 10/10/18 Loyda Glaser, ERVIN [address] [place] [address] [phone] Price Economist Family Medicine 10/31/23 Yasmin Ho MD [address] [place], [place] [phone] Gastroenterology 08/29/24 Manuel Carpenter PA [address] [address] Neurology 08/29/24 Paola Tolentino, BEHAVIOR MANAGEMENT SPECIALIST [address] [address] Endocrinology 10/24/24 [facility] Psychology Psychology 12/19/24 documented as of this encounter
--- OUTSIDE RECORDS SUMMARY | 2025-06-11 08:14 | XMS_ITS | Encounter Summary ---
Author Organization [employer] Address 75 [facility] 7t [place] [address] Care Team Providers Care Teachers' Assistant Name Role Phone Sammie Maharaj MD Primary Care Provider [phone]- [phone] Loyda Glaser RN Unavailable [phone] Yasmin Ho MD Unavailable Reason for Visit * Reason Comments Med Refill Encounter Details Date Type Department Care Team (Late st Contact Info) Description 10/25/2023 Refill [facility]ALK[facility] [address] [place], [place] [phone] Sammie Maharaj MD [address] [place], [place] [phone] Microcytic anemia Social History Tobacco Use Types [...] Description 07/03/2025 9:30 AM EDT Office Visit [facility] MEDICINE [address] [place] [address] Sammie Maharaj MD [address] [place] [address] documented as of this encounter Visit Diagnoses Diagnosis Microcytic anemia Unspecified iron deficiency anemia documented in this encounter Additional Health Concerns Assessment Noted Time PHQ-9 Depression Total Score: 0 07/28/20 23 9:42 AM EDT documented as of this encounter Care Teams Teachers' Assistant Relationship Specialty Start Date End Date Sammie Maharaj MD [address] [place] [address] [phone] PCP - General Family Medicine 10/10/18 Loyda Glaser, ERVIN [address] [place] [address] [phone] Tablet Technician Family Medicine 10/31/23 Yasmin Ho MD [address] [place] [address] [phone] Gastroenterology 08/29/24 Manuel Carpenter PA [address] [address] Neurology 08/29/24 Paola Tolentino PERL SOFTWARE ENGINEER [address] [address] Endocrinology 10/24/24 [facility] Psychology Psychology 12/19/24 documented as of this encounter
--- OUTSIDE RECORDS SUMMARY | 2025-06-11 08:15 | XMS_ITS | Encounter Summary ---
Demographics Address 17 [facility] [address] [place] [address] Mobile Phone Home Phone Preferred Language Faroese; Castilian Marital Status Single Hindu Affiliation Unknown Race Unknown Ethnic Group Unknown Author Organization [facility] Address [address] [place] [address] Support Name Relationship Address Phone Orion Rubio Daughter 17 [facility] [address] [place] [address] Care Team Providers Care Early Childhood Education Coordinator Name Role Phone Sammie Maharaj Primary Care Provider [phone]- [phone] Encounter Details Date Type Department Care Team (Late st Contact Info) Description 04/09/2025 Results Follow-Up [facility] Liver Transplant Services [address] [place] [address] Denae Johnson RN Social History Tobacco Use [...] Description 06/21/2025 1:15 PM EDT Office Visit [facility] Dermatology Clinic 4th Floor 281 [facility], [place] [phone] Coin Counter And Wrapper: Perlita Powers MD [address] [place] [address] 07/17/2025 8:00 AM EDT Office Visit [facility] Diabetes Clinic [address] [place] [address] Coin Counter And Wrapper: Paola Vance NP [address] [place] [address] 08/27/2025 9:00 AM EST Follow-Up [facility] Liver Transplant Services [address] [place] [address] Yasmin Ho MD [address] [place] [address] 09/23/2025 8:00 AM EST Office Visit [facility] Diabetes [facility] [address] [place] [address] Coin Counter And Wrapper: Rocio Walden NP [address] [place] [address] 03/25/2026 9:30 AM EDT Office Visit [facility] Diabetes [facility] [address] [place] [address] Coin Counter And Wrapper: Natasha Rubalcava MD [address] [place] [address] documented as of this encounter Goals Goal Patient Goal Type Associated Problems Recent Progress Patient-Stated? Author Autogenerat ed Goal Care Plan Autogenerated Problem No Tena Fofana documented as of this encounter Visit Diagnoses Not on filedocumented in this encounter Additional Health Concerns Active Problems Noted Date Diagnosed Date Autogenerated Problem 04/09/2025 documented as of this encounter Care Teams Early Childhood Education Coordinator Relationship Specialty Start Date End Date Sammie Maharaj: [phone] [address] [place] [address] PCP - General Family Medicine 05/15/18 documented as of this encounter
--- OUTSIDE RECORDS SUMMARY | 2025-06-11 08:15 | XMS_ITS | Encounter Summary ---
Demographics Address 17 [facility] [address] [place] [address] Mobile Phone Home Phone Preferred Language Croatian; Castilian Marital Status Single Mormon Affiliation Unknown Race Unknown Ethnic Group Unknown Author Organization [facility] Address [address] [place] [address] Support Name Relationship Address Phone Orion Rubio Daughter 17 [facility] [address] [place] [address] Care Team Providers Care Senior Programmer Name Role Phone Sammie Maharaj Primary Care Provider [phone]- [phone] Encounter Details Date Type Department Care Team (Late st Contact Info) Description 12/21/2024 Orders Only [facility] Interventional Radiology [address] [place] [address] Mateusz Wilkinson DO [address] [place] [address] Social History Tobacco Use Types Packs/Day Years [...] Description 06/21/2025 1:15 PM EDT Office Visit [facility] Dermatology Clinic 4th Floor 281 [facility], [place] [address] Director Of Radio Services: Perlita Powers MD [address] [place] [address] 07/17/2025 8:00 AM EDT Office Visit [facility] Diabetes Clinic [address] [place] [address] Director Of Radio Services: Paola Vance NP [address] [place] [address] 08/27/2025 9:00 AM EST Follow-Up [facility] Liver Transplant Services [address] [place] [address] Yasmin Ho MD [address] [place] [address] 09/23/2025 8:00 AM EST Office Visit [facility] Diabetes Clinic [address] [place] [address] Director Of Radio Services: Rocio Walden NP [address] [place] [address] 03/25/2026 9:30 AM EDT Office Visit [facility] Diabetes Clinic [address] [place] [address] Director Of Radio Services: Natasha Rubalcava MD [address] [place] [address] documented as of this encounter Visit Diagnoses Not on filedocumented in this encounter Care Teams Senior Programmer Relationship Specialty Start Date End Date Sammie Maharaj [address] [place] [address] PCP - General Family Medicine 05/15/18 documented as of this encounter
--- OUTSIDE RECORDS SUMMARY | 2025-06-11 08:15 | XMS_ITS | Encounter Summary ---
Author Organization [employer] Address [address] [facility] [address] 7t [place] [address] Care Team Providers Care Ceramic Tile Installation Helper Name Role Phone Sammie Maharaj MD Primary Care Provider +1- [phone] Loyda Glaser RN Unavailable [phone] Yasmin Ho MD Unavailable [phone] Encounter Details Date Type Department Care Team (Late st Contact Info) Description 02/19/2025 Orders Only [facility]IN [facility] 230 [place], [place] [phone] Enzo Manuel MD [address] [place], [place] [phone] Social History Tobacco Use Types Packs/Day Years [...] Description 07/03/2025 9:30 AM EDT Office Visit [facility] MEDICINE [address] [place] [address] Sammie Maharaj MD [address] [place] [address] documented as of this encounter Visit Diagnoses Not on filedocumented in this encounter Additional Health Concerns Assessment Noted Time PHQ-9 Depression Total Score: 0 10/24/19 25 9:33 AM EST documented as of this encounter Care Teams Ceramic Tile Installation Helper Relationship Specialty Start Date End Date Sammie Maharaj MD [address] [place] [address] PCP - General Family Medicine 10/10/18 Loyda Glaser, RN [address] [place] [address] Healthcare Architect Family Medicine 10/31/23 Yasmin Ho MD [address] [place] [address] Gastroenterology 08/29/24 Manuel Carpenter PA [address] [address] Neurology 08/29/24 Paola Tolentino NP [address] [address] Endocrinology 10/24/24 [facility] Psychology Psychology 12/19/24 documented as of this encounter
--- OUTSIDE RECORDS SUMMARY | 2025-06-11 08:15 | XMS_ITS | Clinical Summary ---
Demographics Address [address] [facility] [address] [place] [address] Mobile Phone Home Phone Preferred Language Brazilian; Castilian Marital Status Single Jew Affiliation Unknown Race Unknown Ethnic Group Unknown Author Organization [facility] Address [address] [place] [address] Support Name Relationship Address Phone Orion Rubio Daughter [address] [facility] [address] [place] [address] Care Team Providers Care Senior Auditor Name Role Phone NickoKenneySammie J Primary Care Provider [phone] Allergies Active Allergy Reactions Criticality Noted Date Comments Latex Rash Medications Freestyle lancets 28 gauge 05/01/20 21 Active Freestyle Lite test strips CHECK BLOOD SUGAR 3 TIMES A DAY 04/07/20 21 Active Alcohol Prep Pads pads, medicated 05/01/20 21 Active ferrous gluconate (FERGON) 324 mg (37.5 mg iron) tablet tablet Take 324 mg by mouth daily with breakfast. Active FreeStyle Blanchard Lite meter TEST BLOOD SUGAR THREE TIMES DAILY 10/14/19 24 Active TRUEplus Lancets lancet 33 gauge TEST BLOOD SUGAR THREE TIMES DAILY 10/14/19 24 Active ciclopirox (PENLAC) 8 % solution SMARTSIG:Top ical Every Night 09/26/20 23 Active cholecalciferol (VITAMIN D3) 1,250 mcg (50,000 unit) capsule TAKE 1 CAPSULE BY MOUTH ONE TIME PER WEEK 8 capsule 04/30/20 24 Active FreeStyle Charlotte 3 [place] misc Use to monitor blood sugars. E11.9 1 each 05/15/2024 9:09 AM EDT 04/26/20 24 Active ursodioL (ACTIGALL) 250 mg tablet TAKE 1 TABLET BY MOUTH THREE TIMES A DAY 90 tablet 11 08/23/20 24 Active lactulose 10 gram/15 mL solution Take 30 mL (20 g total) by mouth 5 times a day. 91342 mL 01/09/20 25 026 Active Lantus Solostar U-100 Insulin 100 unit/mL (3 mL) pen injection Inject 10 Units under the skin nightly. 15 mL 03/22/20 25 Active BD Sandy 2nd Gen Pen Needle 4 mm x 32 g Patient injects once daily; E11.9 100 each 3 03/22/20 25 Active FreeStyle Charlotte 3 Plus Sensor deviceIndicatio ns:Type 2 diabetes mellitus without complication, with long-term current use of insulin (HCC) Change sensor every 15 days. E11.65 2 each 05/08/2025 12:39 AM EDT 03/22/20 25 Active omeprazole (PriLOSEC) 40 mg capsule Take 1 capsule (40 mg total) by mouth once a day. 30 capsule 2 04/09/20 25 025 Active mycophenolate (CELLCEPT) 500 mg tablet Take 2 tablets (1,000 mg total) by mouth 2 times a day. 120 tablet 11 05/15/20 25 026 Active vitamin A 3,000 mcg (10,000 unit) capsule TAKE 1 CAPSULE (10,000 UNITS TOTAL) BY MOUTH ONCE A DAY. 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 180 capsule 06/04/20 25 Active zonisamide (ZONEGRAN) 100 mg capsule TAKE 2 CAPSULES (200 MG TOTAL) BY MOUTH AT BED TIME. 180 capsule 3 07/24/20 24 025 Discontinued mycophenolate (CELLCEPT) 500 mg tablet Take 1 tablet (500 mg total) by mouth 2 times a day. 60 tablet 11 03/19/20 25 025 Discontinued vitamin A 3,000 mcg (10,000 unit) capsule Take 1 capsule (10,000 Units total) by mouth once a day. 30 capsule 1 05/21/20 25 025 Discontinued Active Problems Problem Noted Date [...] from 18-14 by endo 04/2024 Seen by [facility] endocrinology 04/18/24 Hemoglobin A1c is [...] approval for her to upgrade to the freeGoods Platformyle hcarlotte 3 CGM. BPPV (benign paroxysmal positional vertigo) [...] Encounters Date Type Department Care Team Description 06/07/2025 Telephone [facility] Transplant Department [address] [place] [address] Katy Boateng, ERVIN 06/07/2025 Orders Only [facility] [address] [place] [address] Katy Boateng RN 06/05/2025 10:52 AM EDT Anesthesia Event [facility] [address] [place] [address] Dominik Sadler MD 06/05/2025 10:20 AM EDT - 06/05/2025 10:45 AM EDT Surgery [facility] [address] [place] [address] Alejandro Quan UPPER ENDOSCOPY WITH FOREIGN BODY REMOVAL WITH POSSIBLE MODERATE SEDATION [05549 (CPT )] 06/05/2025 9:18 AM EDT - 06/05/2025 11:55 AM EDT Hospital Encounter [facility] [address] [place] [address] Alejandro Quan Discharge Disposition: Home or Self Care (01) 06/02/2025 Refill [facility] Neurology [facility] [address] [place] [address] Christa Figueroa MD Complex partial seizure (Primary Dx) 05/30/2025 Abstract [facility] Department [address] [place] [address] Yasmin Ho MD 05/27/2025 Telephone [facility] [address] [place] [address] Denae Johnson RN 05/24/2025 Refill [facility] [address] [place] [address] Yasmin Ho MD 05/21/2025 Telephone [facility] [address] [place] [address] Denae Johnson RN 05/21/2025 Orders Only [facility] [address] [place] [address] Denae Johnson RN 05/21/2025 Results Follow-Up [facility] [address] [place] [address] 33884 Katy Boateng RN 05/21/2025 Orders Only [facility] [address] [place] [address] Lola Anthony MD 05/21/2025 Abstract [facility] [address] [place] [address]285 Yasmin Ho MD 05/15/2025 Orders Only [facility] [address] [place] [address] 34894 Katy Boateng RN Cryptogenic cirrhosis (HCC) (Primary Dx) 05/14/2025 Abstract [facility] [address] [place] [address] 97[address] Yasmin Ho MD 05/07/2025 Telephone [facility] [address] [place] [address] Katy Boateng RN 05/03/2025 Orders Only [facility] [address] [place] [address] Katy Boateng RN Cryptogenic cirrhosis (HCC) (Primary Dx); Liver disease 05/03/2025 Refill [facility] [address] [place] [address] Yasmin Ho MD 05/02/2025 Prep for Case [facility] Endoscopy [address] [place] [address] Baltazar Quan MD 04/30/2025 Telephone [facility] [address] [place] [address] Telephone Intake, Staff PAC Appt Request - Established ([facility]) 04/12/2025 Orders Only [facility] Interventional Radiology [address] [place] [address] 35892 Bonny Momin MD 04/12/2025 Refill [facility] [address] [place] [address] 14846 Yasmin Ho MD 04/09/2025 9:00 AM EDT Follow-Up [facility] [address] [place] [address] Yasmin Ho MD Cryptogenic cirrhosis (HCC) (Primary Dx) 04/09/2025 Results Follow-Up [facility] [address] [place] [address] 30[address] Denae Johnson RN 04/02/2025 Orders Only [facility] [address] [place] [address] Katy Boateng, ERVIN Cryptogenic cirrhosis (HCC) (Primary Dx) 03/29/2025 10:26 AM EDT Anesthesia Event [facility] Operating Room [address] [place] [address] David Huertas MD Baren, Deepika Ika, PA 03/29/2025 9:35 AM EDT - 03/29/2025 10:45 AM EDT Surgery [facility] Operating Room [address] [place] [address] Aidan Melara MD ENDOSCOPIC RETROGRADE CHOLANGIOPANCREATO GRAPHY, DIAGNOSTIC WITH POSSIBLE BRUSHING OR WASHING AND POSSIBLE MODERATE SEDATION [37029 (CPT )] 03/29/2025 7:52 AM EDT - 03/29/2025 6:04 PM EDT Hospital Encounter [facility] Operating Room [address] [place] [address] Aidan Melara MD Jaundice (Primary Dx) Discharge Disposition: Home or Self Care (01) 03/29/2025 Transcribe Orders [facility] Physician Referral Services [address] [place] [address] NickoHerrera thompsonmedina Beckett Alopecia (Primary Dx) 03/22/2025 3:30 PM EDT Office Visit [facility] Building Diabetes Clinic [address] [place] [address] Grout Pump Operator: Natasha Rubalcava MD Type 2 diabetes mellitus without complication, with long-term current use of insulin (HCC) 03/20/2025 Abstract [facility] Trans[facility] [address] [place] [address]772 Yasmin Ho MD 03/19/2025 Abstract [facility] [address] [place] [address] 94[address] Yasmin Ho MD 03/19/2025 Orders Only [facility] [address] [place] [address] 40828 Yasmin Ho MD 03/18/2025 Telephone [facility] [address] [place] [address] 027[address] Katy Boateng RN 03/12/2025 Results Follow-Up [facility] [address] [place] [address] Katy Boateng, ERVIN 03/12/2025 Abstract [facility] [address] [place] [address] Yasmin Ho MD from Last 3 Months Immunizations Immunization Administration Dates Next Due Diphtheria, Tetanus Toxoids and Acellular Pertussis Vaccine, 5 Pertussis Antigens 04/03/2010 Tuberculin Skin Test; Purifi ed Protein Derivative Solution, Intradermal 04/03/2010 Family History Medical History Relation Name Comments [...] Sign Reading Time Taken Comments Blood Pressure 91/53 06/05/2025 11:30 AM EDT Pulse 69 06/05/2025 11:30 AM EDT Temperature 36.4 C (97.6 F) 06/05/2025 11:13 AM EDT Respiratory Rate 14 06/05/2025 11:30 AM EDT Oxygen Saturation 99% 06/05/2025 11:30 AM EDT Inhaled Oxygen Concentration - - Weight 54.4 kg (120 lb) 06/05/2025 10:07 AM EDT Height 144.8 cm (4' 9 ) 11/14/2024 8:06 AM EST Body Mass Index 25.97 11/14/2024 8:06 AM EST Plan of Treatment Upcoming Encounters Date Type Department Care Team (Late st Contact Info) Description 06/21/2025 1:15 PM EDT Office Visit [facility] D[facility]atology [facility] 4th Floor [address] [facility], [place] [phone] Grout Pump Operator: Perlita Powers MD [address] [place] [phone] 07/17/2025 8:00 AM EDT Office Visit [facility] [address] [place] [address] Grout Pump Operator: Paola Vance NP [address] [place] [address] [place] [address] 08/27/2025 9:00 AM EST Follow-Up [facility] [address] [place] [address] Yasmin Ho MD [address] [place] [address] 09/23/2025 8:00 AM EST Office Visit [facility] [address] [place] [address] 288[address] Grout Pump Operator: Rocio Walden NP [address] [place] [address] 03/25/2026 9:30 AM EDT Office Visit [facility] [address] [place] [address] Grout Pump Operator: Natasha Rubalcava MD [address] [place] [address] Health Maintenance Due Date Last Done Comments HPV and Pap Smear 1981 Ophthalmology Exam 1991 Varicella Vaccines (1 of 2 - 13+ 2-dose series) 1994 Mammogram 2021 Cervical Cancer Screening 03/25/2024 Pap Smear 03/25/2024 03/25/2021 Alcohol/Substance Use Screening 10/10/2024 Depression Screening and Follow-Up 10/10/2024 Social Drivers of Health Karime ual Screening 10/10/2024 Urine Microalbumin 04/26/2025 04/26/2024 COVID-19 Vaccine (4 - Pfizer risk season) 2025 07/09/2024, 08/29/2023, 03/17/2021 Influenza Vaccine (#1) 2025 , 07/28/2023, 06/25/2022, Additional history exists Hemoglobin A1C 09/21/2025 03/22/2025, 01/2025, 11/14/2024, Additional history exists Basic Metabolic Panel 04/19/2026 04/19/2025 , 04/09/2025, 01/08/2025, Additional history exists DTaP,Tdap,and Td Vaccines (4 - Td or Tdap) 08/29/2033 08/29/2023, 07/21/2012, 04/03/2010 RSV Vaccine (60+ years old a nd patients) (1 - 1-dose 75+ series) 2056 Pneumococcal Vaccine: Pediat bon (0-5 Years) and At-Risk Patients (6-50 Years) Completed 07/28/2023, 06/26/2011, 06/11/2009, Additional history exists HIV Screening Completed 09/20/2023, 12/11/2020 Hepatitis C Screening Completed 09/20/2023 , 01/15/2014, 03/30/2010, Additional history exists Hepatitis B Vaccines Completed 09/29/2023, 07/28/2023, 07/13/2019, Additional history exists Goals Goal Patient Goal Type Associated Problems Recent Progress Patient-Stated? Author Autogenerat ed Goal Care Plan Autogenerated Problem No [employer] Implanted Type Area Painting Worker Device Identifier Shelf Expiration Date Model / Serial / Lot Stent Advanix Pancreatic Pigtail 5fr X 8cm - [id number] Implanted:Qty: 1 on 03/29/2025 by Aidan Melara MD at [facility] Stent [employer] [id number] 08/28/2025 [id number] / / [id number] Procedures * Due to [place] state law, this organization might not be sharing negative HIV tests. Procedure Name Priority Date/Time Associated Diagnosis Comments ND EGD FLEXIBLE FOREIGN BODY REMOVAL 06/05/2025 10:50 AM EDT Presence of pancreatic duct stent POCT GLUCOSE Routine 06/05/2025 10:18 AM EDT POCT HCG, URINE Routine 06/05/2025 9:59 AM EDT UPPER GI ENDOSCOPY 06/05/2025 LIVER PRE EXTERNAL PANEL Routine 025 8:04 AM EDT LAB - SCANNED Routine 05/13/2025 12:27 PM EDT LIVER PRE EXTERNAL PANEL Routine 025 7:51 AM EDT BILIRUBIN, DIRECT Routine 04/09/2025 8:5 3 AM EDT Cryptogenic cirrhosis (HCC) PROTIME-INR Routine 04/09/2025 8:53 AM EDT Cryptogenic cirrhosis (HCC) CBC AUTO DIFFERENTIAL Routine 04/09/2025 8:53 AM EDT Cryptogenic cirrhosis (HCC) COMPREHENSIVE METABOLIC PANEL Routine 8:53 AM EDT Cryptogenic cirrhosis (HCC) CA 19-9 Routine 04/09/2025 8:53 AM EDT Cryptogenic cirrhosis (HCC) IGG 1, 2, 3, AND 4 Routine 04/09/2025 8: 53 AM EDT Cryptogenic cirrhosis (HCC) FL C-ARM ERCP IN OR NON-REPORTABLE Routine 03/29/2025 10:57 AM EDT Jaundice ND ERCP DX COLLECTION SPECIM EN BRUSHING/WASHING 03/29/2025 10:18 AM EDT elevated Tb AP levels POCT GLUCOSE Routine 03/29/2025 9:21 AM EDT POCT HCG, URINE Routine 03/29/2025 9:02 AM EDT ECG 12-LEAD Routine 03/29/2025 8:38 AM EDT ENDOSCOPIC RETROGRADE CHOLANGIOPANCREATOGRAPHY 03/29/2025 POCT GLYCOSYLATED HEMOGLOBIN (HGB A1C) Routine 03/22/2025 3:31 PM EDT AFP TUMOR MARKER, OUTSIDE LAB Routine 9:36 AM EDT LIVER PRE EXTERNAL PANEL Routine 025 9:36 AM EDT LIVER PRE EXTERNAL PANEL Routine 025 7:39 AM EDT MICROALBUMIN, RANDOM URINE WITH CREATININE Routine 04/26/2024 4:22 PM EDT Type 2 diabetes mellitus without complication, with long-term current use of insulin HEPATITIS C ANTIBODY W/REFLE X TO HCV RNA, QUANTITATIVE PCR Routine 09/20/2023 12:40 PM EST Encounter for pre-transplant evaluation for liver transplant from Last 3 Months or Most Recently Relevant to Health Maintenance Results * Due to [place] state law, this organization might not be sharing negative HIV tests. * POCT Glucose, interfaced (06/05/2025 10:18 AM EDT) Only the most recent of2 resultswithin the time period is included. [facility] Signature Glucose, POCT 99 70 - 99 mg/dL 06/05/2025 10:26 AM EDT [facility], POC Comment: The stile ripsaw operator has not determined the efficacy of this test in Critically ill patients. [facility] defines Critically ill patients for the purpose of blood glucose monitoring (BGM) by glucometer, as patients meeting one or more of the following criteria: Hypotension- non-ICU patients (systolic blood pressure Less than 90 mmHg) due to shock Hypotension -ICU patients (Mean Arterial Pressure (MAP) <60 mmHg or systolic blood pressure < 90 mmHg due to shock Patients receiving Vasopressors (phenylephrine, vasopressin or norepinephrine) Anasarca In all locations, BGM test results should not be relied upon in the above situations, unless these results confirmed with lab-based glucose values. Blood 06/05/2025 10:1 8 AM EDT 06/05/2025 10:26 AM EDT Alejandro Vo Quan LAB POCT ORDERABLES - DEVICE F inal Result [facility], POC [address] [place] [address], [place] * POCT HCG, Urine, non-interfaced (06/05/2025 9:59 AM EDT) Only the most recent of2 resultswithin the time period is included. Control band present? Yes Background Clear? Yes Preg Test, Ur Negative Negative Urine 06/05/2025 9:59 AM EDT us Alejandro Tavo Quan POINT OF CARE TEST ORDERABLES Final Result * UPPER GI ENDOSCOPY (06/05/2025) Narrative Procedure Note Alejandro Quan - 06/05/2025 10:48 AM EDT [facility] Gastroenterology Patient Name: Aubrie Chery Procedure Date: 06/05/2025 10:48 AM Date of : 1980 Admit Type: Outpatient Age: 45 Room: Room 5 Gender: Female Note Status: Finalized Attending MD: Alejandro Quan , , Procedure: Upper GI endoscopy Indications: Pancreatic stent removal Patient Profile: This is a 45 year old female. Refer to note inpatient chart for documentation of history and physical. Providers: Alejandro Quan (Doctor) Referring MD: Sammie Maharaj MD (Referring MD) Requesting Provider: Medicines: Monitored Anesthesia Care Complications: No immediate complications. Estimated Blood Loss: Estimated blood loss: none. Procedure: Pre-Anesthesia Assessment: - Prior to the procedure, a History and Physicalwas performed, and patient medications and allergieswere reviewed. The patient is competent. The risks and benefits of the procedure and the sedation optionsand risks were discussed with the patient. Allquestions were answered and informed consent was obtained. Patient identification and proposed procedure were verified by the physician and the nurse in the pre-procedure area in the procedure room. Mental Status Examination: alert and oriented. Respiratory Examination: clear to auscultation. CV Examination: normal. Prophylactic Antibiotics: The patient doesnot require prophylactic antibiotics. Prior Anticoagulants: The patient has taken noanticoagulant or antiplatelet agents. After reviewing the risksand benefits, the patient was deemed in satisfactory condition to undergo the procedure. The anesthesia plan was to use monitored anesthesia care (MAC). Immediately prior to administration of medications, the patient was re-assessed for adequacy to receive sedatives. The heart rate, respiratory rate, oxygen saturations, blood pressure, adequacy of pulmonary ventilation, and response to care were monitored throughout the procedure. The physical status ofthe patient was re-assessed after the procedure. After obtaining informed consent, the endoscope was passed under direct vision. Throughout theprocedure, the patient's blood pressure, pulse, and oxygen saturations were monitored continuously. [id number] was introduced through the mouth, andadvanced to the second part of duodenum. The upper GIendoscopy was accomplished without difficulty. The patient tolerated the procedure well. Findings: The examined esophagus was normal. The Z-line was irregular and was found 35 cm from the incisors. Small salmon colored patch in the proximal esophagus consistent with inlet patch. The entire examined stomach was normal. The duodenal bulb, second portion of the duodenum and major papillawere normal. No evidence of pancreatic duct stent noted from [facility]. Impression: - Inlet patch, otherwise normal esophagus. Z-line irregular, 35 cm from the incisors. - Normal stomach. - Normal duodenal bulb, second portion of theduodenum and major papilla. Pancreatic duct stent issuspected to have migrated spontaneously as it was notvisible per biliary orifice. - No specimens collected. Recommendation: - Continue present medications. - Resume previous diet. - Follow up with CT 3 phase liver as ordered by her hepatology team. - Return to liver clinic as previously scheduled. - Discharge patient to home (with escort). Attending Participation: I personally performed the entire procedure. Alejandro Quan, 06/05/2025 11:16:01 AM Number of Addenda: 0 Note Initiated On: 06/05/2025 10:48 AM us Alejandro Quan PROVATION PROCEDURES Final Res ult * LIVER PRE EXTERNAL PANEL (05/28/2025 8:04 AM EDT) Only the most recent of4 resultswithin the time period is included. Sodium 141 mmol/L [facility] Potassium 3.2 [facility] Chloride 112 [facility] Carbon Dioxide 21 [facility] Glucose 167 [facility] BUN 15 mg/dL [facility] Creatinine 0.55 mg/dL [facility] Calcium 8.5 mg/dL [facility] Total Protein 6.2 g/dL [facility] Albumin 3.2 g/dL [facility] Bilirubin, Total 8.8 mg/dL [facility] Alkaline Phosphatase 938 U/L [facility] AST 114 U/L [facility] ALT 83 U/L [facility] INR 1.10 [facility] 05/28/2025 8:04 AM EDT us Yasmin Ho MD LAB BLOOD ORDERABLES Final R esult [facility] [address] [place] [address] * LAB - SCANNED (05/13/2025 12:27 PM EDT) us Unknown Provider LAB HISTORICAL RESULTS Final Result * (ABNORMAL) CBC Auto Differential (04/09/2025 8:53 AM EDT) WBC 5.1 3.8 - 10.8 10*3/uL 04/09/2025 9:23 AM EDT [facility] RBC 3.98 3.80 - 5.10 10*6/uL 04/09/2025 9:23 AM EDT [facility] Hemoglobin 12.4 11.7 - 15.5 g/dL 04/09/2025 9:23 AM EDT [facility] Hematocrit 37.2 35.0 - 45.0 % 04/09/2025 9:23 AM EDT [facility] MCV 93.5 80.0 - 100.0 fL 04/09/2025 9:23 AM EDT [facility] MCH 31.2 27.0 - 33.0 pg 04/09/2025 9:23 AM EDT [facility] MCHC 33.3 32.0 - 36.0 g/dL 04/09/2025 9:23 AM EDT [facility] RDW 13.5 11.0 - 15.0 % 04/09/2025 9:23 AM EDT [facility] Platelets 142 140 - 400 10*3/uL 04/09/2025 9:23 AM EDT [facility] MPV 12.7(H) 7.5 - 12.5 fL 04/09/2025 9:23 AM EDT [facility] Neutrophil % 71.9 % 04/09/2025 9:23 AM EDT [facility] Immature Grans % 0.4 0.0 - 0.9 % 04/09/2025 9:23 AM EDT [facility] Lymphocyte % 15.5 % 04/09/2025 9:23 AM EDT [facility] Monocyte % 7.9 % 04/09/2025 9:23 AM EDT [facility] Eosinophil % 3.7 % 04/09/2025 9:23 AM EDT [facility] Basophil % 0.6 % 04/09/2025 9:23 AM EDT [facility] Neutrophil # 3.66 1.50 - 7.80 10*3/uL 04/09/2025 9:23 AM EDT [facility] Immature Grans # <0.03 <=0.03 10*3/uL 04/09/2025 9:23 AM EDT [facility] Lymphocyte # 0.80(L) 0.85 - 3.90 10*3/uL 04/09/2025 9:23 AM EDT [facility] Monocyte # 0.40 0.20 - 0.95 10*3/uL 04/09/2025 9:23 AM EDT [facility] Eosinophil # 0.20 0.02 - 0.50 10*3/uL 04/09/2025 9:23 AM EDT [facility] Basophil # <0.03 0.00 - 0.20 10*3/uL 04/09/2025 9:23 AM EDT [facility] nRBC % 0.0 /100 WBCs 04/09/2025 9:23 AM EDT [facility] nRBC # <0.01 <0.01 10*3/uL 04/09/2025 9:23 AM EDT [facility] Blood Structure of peripheral vein / Unknown Venipuncture / Unknown 04/09/2025 8:53 AM EDT 04/09/2025 9:15 AM EDT Yasmin Ho MD LAB BLOOD ORDERABLES Final R esult Performing Organization Address City/[facility]/ZIP Co de Phone Number [facility] [address] [place] [address], [place] * CA 19-9 (04/09/2025 8:53 AM EDT) [facility] CA 19-9 14 <34 U/mL 04/10/2025 8:35 AM EDT [facility] Comment: This test was performed using the Siemens chemiluminescent method. Values obtained from different assay methods cannot be used interchangeably. CA 19-9 levels, regardless of value, should not be interpreted as absolute evidence of the presence or absence of disease. Blood Structure of peripheral vein / Unknown Venipuncture / Unknown 04/09/2025 8:53 AM EDT 04/09/2025 9:14 AM EDT Narrative [facility] - 04/10/2025 8:35 AM EDT [facility] Received Date:[id number] Yasmin Ho MD LAB BLOOD ORDERABLES Final R esult [address] 3rd [facility], [place] [address], [place] [phone] [facility] [address], [place] [address], [place] [phone] * (ABNORMAL) IgG 1, 2, 3, and 4 (04/09/2025 8:53 AM EDT) Immunoglobulin G Subclass 1 556 382 - 929 mg/dL 04/10/2025 1:53 PM EDT [facility] Immunoglobulin G Subclass 2 223(L) 241 - 700 mg/dL 04/10/2025 1:53 PM EDT [facility] Immunoglobulin G Subclass 3 40 22 - 178 mg/dL 04/10/2025 1:53 PM EDT [facility] Immunoglobulin G Subclass 4 21.6 4 - 86 mg/dL 04/10/2025 1:53 PM EDT [facility] Immunoglobulin G, Serum 908 600 - 1640 mg/dL 04/10/2025 1:53 PM EDT [facility] Blood Structure of peripheral vein / Unknown Venipuncture / Unknown 04/09/2025 8:53 AM EDT 04/09/2025 9:14 AM EDT Narrative [facility] - 04/10/2025 1:53 PM EDT [facility] Received Date:[id number] Yasmin Ho MD LAB BLOOD ORDERABLES Final R esult [facility] [address], [place] [address], [place] [phone] [facility] [address], [place] [address], [place] [phone] * Protime-INR (04/09/2025 8:53 AM EDT) PT 11.7 9.6 - 12.4 Seconds 04/09/2025 9:45 AM EDT [facility] INR 1.1 0.9 - 1.1 04/09/2025 9:45 AM EDT [facility] Comment:The optimal therapeu tic INR range for patients treated with Vitamin K antagonists (VKAS, e.g., Warfarin) is 2.0 to 3.5. Discuss the desired range with your doctor/care team. Blood Structure of peripheral vein / Unknown Venipuncture / Unknown 04/09/2025 8:53 AM EDT 04/09/2025 9:14 AM EDT Yasmin Ho MD LAB BLOOD ORDERABLES Final R esult [facility] [address] [place] [address], * (ABNORMAL) Bilirubin, Direct (04/09/2025 8:53 AM EDT) Bilirubin, Direct 5.3(H) <=0.4 mg/dL 04/09/2025 9:46 AM EDT [facility] Blood Structure of peripheral vein / Unknown Venipuncture / Unknown 04/09/2025 8:53 AM EDT 04/09/2025 9:15 AM EDT Yasmin Ho MD LAB BLOOD ORDERABLES Final R esult [facility] [address] [place] [address], [place] * (ABNORMAL) Comprehensive Metabolic Panel (04/09/2025 8:53 AM EDT) NA 141 135 - 145 mmol/L 04/09/2025 9:46 AM EDT [facility] K 3.1(L) 3.5 - 5.3 mmol/L 04/09/2025 9:46 AM EDT [facility] Cl 111(H) 98 - 107 mmol/L 04/09/2025 9:46 AM EDT [facility] CO2 18(L) 22 - 32 mmol/L 04/09/2025 9:46 AM EDT [facility] Anion Gap 12 5 - 15 04/09/2025 9:46 AM EDT [facility] Glucose 91 65 - 99 mg/dL 04/09/2025 9:46 AM EDT [facility] Creatinine 0.54 0.50 - 1.20 mg/dL 04/09/2025 9:46 AM EDT [facility] Calcium 9.0 8.6 - 10.5 mg/dL 04/09/2025 9:46 AM EDT [facility] Total Protein 6.4 6.0 - 8.0 g/dL 04/09/2025 9:46 AM EDT [facility] Albumin 3.3(L) 3.5 - 5.2 g/dL 04/09/2025 9:46 AM EDT [facility] Bilirubin, Total 7.1(H) 0.2 - 1.2 mg/dL 04/09/2025 9:46 AM EDT [facility] Alkaline Phosphatase 1,069(H) 35 - 129 U/L 04/09/2025 9:46 AM EDT [facility] AST 145(H) 10 - 40 U/L 04/09/2025 9:46 AM EDT [facility] ALT 113(H) 10 - 40 U/L 04/09/2025 9:46 AM EDT [facility] BUN 15 7 - 23 mg/dL 04/09/2025 9:46 AM EDT [facility] eGFR >90 >=60 mL/min/1 .73m2 04/09/2025 9:46 AM EDT [facility] Comment:The estimated glomer ular [...] in Diagnosing Kidney Disease . Globulin, Total 3.1 2.1 - 4.2 g/dL 04/09/2025 9:46 AM EDT [facility] A/G Ratio 1.1(L) 1.5 - 3.0 04/09/2025 9:46 AM EDT [facility] Blood Structure of peripheral vein / Unknown Venipuncture / Unknown 04/09/2025 8:53 AM EDT 04/09/2025 9:15 AM EDT Yasmin Ho MD LAB BLOOD ORDERABLES Final R esult [facility] [address] [place] [address], [place] * FL C-Arm ERCP in OR NONREPORTABLE (03/29/2025 10:57 AM EDT) Narrative [facility] - 03/29/2025 11:00 AM EDT This procedure does not contain a result. Please see the surgeon's note for official report. Aidan Melara MD IMG FLUOROSCOPY PROCEDURES Final Result IMAGING * ECG 12 lead (03/29/2025 8:38 AM EDT) Ventricular Rate EKG 64 BPM MUSE EKG Atrial Rate 64 BPM MUSE EKG ND Interval 150 ms MUSE EKG QRS Interval 92 ms MUSE EKG QT Interval 434 ms MUSE EKG QTC Interval 447 ms MUSE EKG P [place] -10 degrees MUSE EKG R [place] 23 degrees MUSE EKG T Wave [place] 24 degrees MUSE EKG 03/29/2025 8:38 AM EDT 03/29/2025 10:35 AM EDT [facility] EKG - 03/29/2025 10:35 AM EDT NORMAL SINUS RHYTHM MINIMAL VOLTAGE CRITERIA FOR LVH, MAY BE NORMAL VARIANT ( Sokolow-Carlos ) BORDERLINE ECG WHEN COMPARED WITH ECG OF 21-OCT-2023 15:51, NO SIGNIFICANT CHANGE WAS FOUND Confirmed by Jerry Shields ([id number]) on 03/29/2025 10:35:45 AM Narrative Procedure Note Jerry Shields MD - 03/29/2025 IMPRESSION: NORMAL SINUS RHYTHM MINIMAL VOLTAGE CRITERIA FOR LVH, MAY BE NORMAL VARIANT ( Sokolow-Carlos ) BORDERLINE ECG WHEN COMPARED WITH ECG OF 21-OCT-2023 15:51, NO SIGNIFICANT CHANGE WAS FOUND Confirmed by Jerry Shields ([id number]) on 03/29/2025 10:35:45 AM Bessie NAJERA ECG ORDERABLES Final Resul t MUSE EKG * ENDOSCOPIC RETROGRADE CHOLANGIOPANCREATOGRAPHY (03/29/2025) Narrative Procedure Note Aidan Melara MD - 03/29/2025 9:48 AM EDT [facility] Gastroenterology Patient Name: Aubrie Chery Procedure Date: 03/29/2025 9:48 AM Date of : 1980 Admit Type: Outpatient Age: 45 Room: [place] [address] Gender: Female Note Status: Finalized Attending MD: Aidan Melara MD Procedure: ERCP Indications: Jaundice, Elevated liver enzymes Comorbidities Providers: Aidan Melara MD Referring MD: Requesting Provider: Medicines: General Anesthesia Complications: No immediate complications. Estimated Blood Loss: Estimated blood loss: none. Procedure: Pre-Anesthesia Assessment: - Prior to the procedure, a History and Physicalwas performed, and patient medications, allergies and sensitivities were reviewed. The patient'stolerance of previous anesthesia was reviewed. - The risks and benefits of the procedure and the sedation options and risks were discussed with the patient. All questions were answered and informed consent was obtained. - ASA Grade Assessment: III - A patient with severe systemic disease. - Immediately prior to administration ofmedications, the patient was re-assessed for adequacy to receive sedatives. - The heart rate, respiratory rate, oxygen saturations, blood pressure, adequacy of pulmonary ventilation, and response to care were monitored throughout the procedure. - The physical status of the patient wasre-assessed after the procedure. After obtaining informed consent, the scope waspassed under direct vision. Throughout the procedure, the patient's blood pressure, pulse, and oxygen saturations were monitored continuously. The was introduced through the mouth, and used to inject contrast into and used to inject contrast into the bile duct and ventral pancreatic duct. The ERCP was accomplished without difficulty. The patienttolerated the procedure well. Findings: The art manager film was normal. The major papilla was normal. The ventral pancreatic duct was deeply cannulated with the short-nosed traction sphincterotome. Contrast was injected. I personally interpreted the pancreatic duct images. There was brisk flow of contrast through the ducts. Contrast extended to the proximal pancreatic duct. The entire opacified area was normal. One 5 Fr by 8 cm plastic pancreatic stent with a full external pigtail and a single internal flap was placed 5cm into the ventral pancreatic duct. Clear fluid flowed through thestent. The stent was in good position. The bile duct was deeply cannulatedwith the short-nosed traction sphincterotome. Contrast was injected. The intra-hepatic and extra-hepatic biliary duct system was normal. Impression: - The major papilla appeared normal. - The cholangiogram was normal. - One plastic pancreatic stent was placed into the ventral pancreatic duct. Recommendation: - Observe patient's clinical course. - Perform an upper GI endoscopy in 2 weeks. Aidan Melara MD 03/29/2025 11:03:29 AM This report has been signed electronically. Number of Addenda: 0 Note Initiated On: 03/29/2025 9:48 AM Aidan Melara MD PROVATION PROCEDURES Final Resul t * POCT Glycosylated Hemoglobin (HGB A1C), interfaced (03/22/2025 3:31 PM EDT) Hemoglobin A1C, POCT 4.4 <=5.6 % 03/22/2025 3:52 PM EDT [facility] Comment: A1C Recommendation for Non- Adults with Diabetes: <7.0% ADA 2011 Standards of Medical Care in Diabetes Blood 03/22/2025 3:31 PM EDT 03/22/2025 3:52 PM EDT Natasha Kramer MD LAB POCT ORDERABLES - DEVICE Fin al Result [facility], POC [address] [place] [address], [place] * AFP Tumor Marker, Outside Lab (03/18/2025 9:36 AM EDT) Alpha Fetoprotein, Tumor Marker 3.6 [facility] Blood Structure of peripheral vein / Unknown 03/18/2025 9:36 AM EDT us Yasmin Ho MD LAB BLOOD ORDERABLES Final R esult Performing Organization Address City/[facility]/ZIP Co de Phone Number [facility] [address] [place] [address] * Microalbumin, Random Urine with Creatinine (04/26/2024 4:22 PM EDT) Microalbumin, Urine <2.0 mg/dL 04/26/2024 5:20 PM EDT [facility] Creatinine, Urine 69 15 - 278 mg/dL 04/26/2024 5:20 PM EDT [facility] Microalb/Creat Ratio, Random Urine 04/26/2024 5:20 PM EDT [facility] Comment: < 1.0 mcg/mgCr Microalbumin Reference Range: Normal <30 mcg/mg Creatinine Microalbuminuria 30-300 mcg/mg Creatinine Clinical Albuminuria >300 mcg/mg Creatinine Reference: ADA Guideline. Diabetes Care. 2004;27 (suppl 1) Urine Voided urine specimen / Unknown Non-Blood Collection / Unknown 04/26/2024 4:22 PM EDT 04/26/2024 4:35 PM EDT Natasha Kramer MD LAB URINE ORDERABLES Final Resul t Performing Organization Address [facility] Co de Phone Number [facility] [address] [place] [address], * Hepatitis C Antibody w/Reflex to PCR (09/20/2023 12:40 PM EST) Hepatitis C Antibody NON-REACT VIVEK NON-REACT VIVEK 09/21/2023 6:41 AM EST [facility] Comment: HCV antibody was non-reactive. There is no laboratory evidence of HCV infection. In most cases, no further action is required. However, if recent HCV exposure is suspected, a test for HCV RNA (test code 95010) is suggested. For additional information please refer to http://education.[employer]/faq/PVU58a0 (This link is being provided for informational/ educational purposes only.) Blood Structure of peripheral vein / Unknown Venipuncture / Unknown 09/20/2023 12:40 PM EST 09/20/2023 1:07 PM EST Narrative [facility] - 09/21/2023 6:41 AM EST [facility] Received Date: Yasmin Ho MD LAB BLOOD ORDERABLES Final R esult [facility] [address] [facility] 3rd Floor, [place] [address], [facility] [address] [facility] 3rd Floor, [place] [address], [place] [phone] from Last 3 Months or Most Recently Relevant to Health Maintenance Additional Health Concerns Active Problems Noted Date Diagnosed Date Autogenerated Problem 04/09/2025 Insurance REINALDO WEBER [id number] Advance Directives Documents on File Type Date Recorded Patient Muffle Worker Expl anation Health Care Proxy 10/26/2023 12:55 PM 10-10 Advance Directive 01/22/2014 12:00 AM Adva ncalyssa Care Directives Advance Directive 04/03/2010 12:00 AM luba Sandhu edical Dec Making (Adv.Dir) * Presumed Full Code (Latest Code Status on File) Date Activated Date Inactivated Comments 05/15/2024 12:15 PM 05/16/2024 2:39 AM Care Teams Senior Auditor Relationship Specialty Start Date End Date Sammie Maharaj: [phone] [address] [place] [address] PCP - General Family Medicine 05/15/18
--- OUTSIDE RECORDS SUMMARY | 2025-06-11 08:15 | XMS_ITS | Encounter Summary ---
Demographics Address [address] [facility] [address] [place] [address] Mobile Phone Home Phone Preferred Language Greek; Castilian Marital Status Single Faith Affiliation Unknown Race Unknown Ethnic Group Unknown Author Organization [facility] Address [address] [place] [address] Support Name Relationship Address Phone Orion Rubio Daughter [address] [facility] [address] [place] [address] Care Team Providers Care Rail Loader Name Role Phone Sammie Maharaj Primary Care Provider [phone] Encounter Details Date Type Department Care Team (Late st Contact Info) Description 09/12/2024 Orders Only [facility] Interventional Radiology [address] [place] [address] Eugene Warren MD [address] [place] [address] Social History Tobacco Use Types Packs/Day Years [...] Description 06/21/2025 1:15 PM EDT Office Visit [facility] 4th Floor [address] [place] [address], [place] [address] Putty Patcher: Perlita Powers MD [address] [place] [address] 07/17/2025 8:00 AM EDT Office Visit [facility] [address] [place] [address] Putty Patcher: Paola Vance NP [address] [place] [address] 08/27/2025 9:00 AM EST Follow-Up [facility] Liver Transplant Services [address] [place] [address] Yasmin Ho MD [address] [place] [address] 09/23/2025 8:00 AM EST Office Visit [facility] [address] [place] [address] Putty Patcher: Rocio Walden NP [address] [place] [address] 03/25/2026 9:30 AM EDT Office Visit [facility] [address] [place] [address] Putty Patcher: Natasha Rubalcava MD [address] [place] [address] documented as of this encounter Visit Diagnoses Not on filedocumented in this encounter Care Teams Rail Loader Relationship Specialty Start Date End Date Sammie Maharaj [address] [place] [address] PCP - General Family Medicine 05/15/18 documented as of this encounter
--- OUTSIDE RECORDS SUMMARY | 2025-06-11 08:15 | XMS_ITS | Encounter Summary ---
Author Organization [email or web address] Address [address] [facility] 7t [place] [address] Care Team Providers Care Healthcare Administration Internship Name Role Phone Sammie Maharaj MD Primary Care Provider [phone] Loyda Glaser RN Unavailable [phone] Yasmin Ho MD Unavailable [phone] Reason for Visit * Reason Comments Med Refill Encounter Details Date Type Department Care Team (Late st Contact Info) Description 03/13/2025 Refill [facility] [address] [place], [place] [phone] Sammie Maharaj MD [address] [place], [place] [phone] Tinea unguium Social History Tobacco Use Types [...] 9:30 AM EDT Office Visit [facility] [address] [place] [address] Sammie Maharaj MD [address] [place] [address] documented as of this encounter Visit Diagnoses Diagnosis Tinea unguium Dermatophytosis of nail documented in this encounter Additional Health Concerns Assessment Noted Time PHQ-9 Depression Total Score: 0 10/24/19 25 9:33 AM EST documented as of this encounter Care Teams Healthcare Administration Internship Relationship Specialty Start Date End Date Sammie Maharaj MD [address] [place] [address] PCP - General Family Medicine 10/10/18 Loyda Glaser RN [address] [place] [address] High Density Finishing Operator Family Medicine 10/31/23 Yasmin Ho MD [address] [place] [address] Gastroenterology 08/29/24 Manuel Carpenter PA [address] [phone] Neurology 08/29/24 Paola Tolentino NP [address] [address] Endocrinology 10/24/24 [facility] Psychology Psychology 12/19/24 documented as of this encounter
--- OUTSIDE RECORDS SUMMARY | 2025-06-11 08:16 | XMS_ITS ---
Demographics Address [address] [facility] [address] [place] [address] Mobile Phone Home Phone Preferred Language Sinhala; Castilian Marital Status Single Moravian Affiliation Unknown Race Unknown Ethnic Group Unknown Author Organization [facility] Address [address] [place] [address] Support Name Relationship Address Phone Orion Rubio Daughter [address] [facility] [address] [place] [address] Care Team Providers Care Venue Coordinator Name Role Phone Kenney Maharajhanie Sujit Primary Care Provider [phone] Transplant Episode Liver Candidate [facility] ([place], [place]) [facility] Center waitlisted on 12/30/2023 Marked as Active on 12/30/2023 Liver CoordinatorKaty Boateng RN Phone: N/A Fax: N/A Email: N/A Scores Score Value Updated Expires Exceptions/Vida sons CPRA Not available UNOS MELD 20 05/15/2025 06/14/2025 MELD (Calc) 19 05/28/2025 [place] Organ Diagnosis Organ Primary Contributory 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
--- OUTSIDE RECORDS SUMMARY | 2025-06-11 08:16 | XMS_ITS | Encounter Summary ---
Demographics Address [address] [facility] [address] [place] [address] Mobile Phone Home Phone Preferred Language Romanian; Castilian Marital Status Single Bahai Affiliation Unknown Race Unknown Ethnic Group Unknown Author Organization [facility] Address [address] [place] [address] Support Name Relationship Address Phone Orion Rubio Daughter [address] [facility] [address] [place] [address] Care Team Providers Care Grades 1 Through 6 Teacher Name Role Phone Sammie Maharaj Primary Care Provider [phone] Encounter Details Date Type Department Care Team (Late st Contact Info) Description 06/07/2025 Orders Only [facility] Transplant Department [address] [place] [address] Katy Boateng RN Social History Tobacco Use [...] Description 06/21/2025 1:15 PM EDT Office Visit [facility] 4th Floor [address] [facility], [place] [phone] Jewelry Designer: Perlita Powers MD [address] [place] [address] 07/17/2025 8:00 AM EDT Office Visit [facility] Diabetes [facility] [address] [place] [address] Jewelry Designer: Paola Vance NP [address] [place] [address] 08/27/2025 9:00 AM EST Follow-Up [facility] Liver Transplant Services [address] [place] [address] Yasmin Ho MD [address] [place] [address] 09/23/2025 8:00 AM EST Office Visit [facility] [address] [place] [address] Jewelry Designer: Rocio Walden NP [address] [place] [address] 03/25/2026 9:30 AM EDT Office Visit [facility] [address] [place] [address] Jewelry Designer: Natasha Rubalcava MD [address] [place] [address] documented as of this encounter Goals Goal Patient Goal Type Associated Problems Recent Progress Patient-Stated? Author Autogenerat ed Goal Care Plan Autogenerated Problem No Tena Fofana documented as of this encounter Visit Diagnoses Not on filedocumented in this encounter Additional Health Concerns Active Problems Noted Date Diagnosed Date Autogenerated Problem 04/09/2025 documented as of this encounter Care Teams Grades 1 Through 6 Teacher Relationship Specialty Start Date End Date Sammie Maharaj [address] [place] [address] PCP - General Family Medicine 05/15/18 documented as of this encounter
--- OUTSIDE RECORDS SUMMARY | 2025-06-11 08:16 | XMS_ITS | Encounter Summary ---
Demographics Address [address] [facility] [address] [place] [address] Mobile Phone Home Phone Preferred Language Uzbek; Castilian Marital Status Single Pentecostal Affiliation Unknown Race Unknown Ethnic Group Unknown Author Organization [facility] Address [address] [place] [address] Support Name Relationship Address Phone Orion Rubio Daughter 17 [facility] [address] [place] [address] Care Team Providers Care Clinical Appeals Reviewer Name Role Phone Sammie Maharaj Primary Care Provider [phone] Encounter Details Date Type Department Care Team (Late st Contact Info) Description 06/07/2025 Telephone [facility] Transplant Department [address] [place] [address] Katy Boateng RN Social History Tobacco Use [...] Telephone Encounter - Katy Boateng RN - 06/07/2025 10:21 AM EDT Using lead shop operator #[id number], called Aubrie about need for labs in the next week. Sent to [place] documented in this encounter Plan of Treatment Upcoming Encounters Date Type Department Care Team (Late Contact Info) Description 06/21/2025 1:15 PM EDT Office Visit [facility] Dermatology Clinic 4th Floor [address] [place] [address], Fourth [place] [address] Assistant Food Service Manager: Perliat Powers MD [address] [place] [address] 07/17/2025 8:00 AM EDT Office Visit [facility] [address] [place] [address] Assistant Food Service Manager: Paola Vance NP [address] [place] [address] 08/27/2025 9:00 AM EST Follow-Up [facility] Liver Transplant Services [address] [place] [address] Yasmin Ho MD [address] [place] [address] 09/23/2025 8:00 AM EST Office Visit [facility] [address] [place] [address] Assistant Food Service Manager: Rocio Walden NP [address] [place] [address] 03/25/2026 9:30 AM EDT Office Visit [facility] [address] [place] [address] Assistant Food Service Manager: Natasha Rubalcava MD [address] [place] [address] Scheduled Orders Name Type Priority Associated Diagnoses Orde r Schedule Protime-INR Lab Routine Cryptogenic cirrhosis (HCC) Expected: 06/07/2025, Expires: 06/07/2026 Comprehensive Metabolic Panel Lab Routine Cryptogenic cirrhosis (HCC) Expected: 06/07/2025, Expires: 06/07/2026 documented as of this encounter Goals Goal Patient Goal Type Associated Problems Recent Progress Patient-Stated? 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
--- OUTSIDE RECORDS SUMMARY | 2025-06-11 08:16 | XMS_ITS | Encounter Summary ---
Demographics Address [address] [facility] [address] [place] [address] Mobile Phone Home Phone Preferred Language Urdu; Castilian Marital Status Single Methodist Affiliation Unknown Race Unknown Ethnic Group Unknown Author Organization [facility] Address [address] [place] [address] Support Name Relationship Address Phone Orion Rubio Daughter [address] [facility] [address] [place] [address] Care Team Providers Care Hvac Manager Name Role Phone Sammie Maharaj Sujit Primary Care Provider [phone] Encounter Details Date Type Department Care Team (Late st Contact Info) Description 07/13/2017 Transplant Conversio n Encounter [facility] Health Information Management [address] [place] [address] Provider, [facility] Social History Tobacco Use Types Packs/Day [...] Description 06/21/2025 1:15 PM EDT Office Visit [facility] D[facility] 4th Floor [address] [facility], Fourth [place] [phone] Insurance Coordinator: Perlita Powers MD [address] [place] [id number] 07/17/2025 8:00 AM EDT Office Visit [facility] Diabetes [facility] [address] [place] [address] Insurance Coordinator: Paola Vance NP [address] [place] [address] 08/27/2025 9:00 AM EST Follow-Up [facility] [address] [place] [address] Yasmin Ho MD [address] [place] [address] 09/23/2025 8:00 AM EST Office Visit [facility] [address] [place] [phone] Insurance Coordinator: Rocio Walden NP [address] [place] [phone] 03/25/2026 9:30 AM EDT Office Visit [facility] [address] [place] [phone] Insurance Coordinator: Natasha Rubalcava MD [address] [place] [phone] documented as of this encounter Visit Diagnoses Not on filedocumented in this encounter Care Teams Hvac Manager Relationship Specialty Start Date End Date [place], Sammie Beckett [address] [place] [phone] PCP - General Family Medicine 05/15/18 documented as of this encounter
[2025-06-11 08:48] LABS: INTERNATIONAL NORM RATIO 1.1 (0.9-1.1); Prothrombin Time 13.0 SEC (10.9-12.4)
[2025-06-11 09:28] LABS: Alanine Aminotransferase 64 U/L (0-31); Albumin Level 3.1 g/dL (3.5-5.0); Alkaline Phosphatase 800 U/L (39-117); Anion Gap 10 (12-20); Aspartate Amino Transferase 97 U/L (5-31); Blood Urea Nitrogen 16 mg/dL (9-16); Calcium 8.2 mg/dL (8.4-10.2); Carbon Dioxide 17 mmol/L (22-29); Chloride 115 mmol/L (96-108); Estimated Glomerular Filt Rate > 60; Potassium 3.4 mmol/L (3.3-5.1); Sodium 139 mmol/L (135-145); Total Protein 5.9 g/dL (6.5-8.0)
== END 2025-06-11 08:02 | disposition home or self-care (01) ==
LOC: HO.LAB 08:01
PROVIDERS: Internal Medicine
DX: K74.69 Other cirrhosis of liver (principal)
CPT/HCPCS: 36415; 80053; 85610

== ENCOUNTER 2025-07-03 10:19 | Outpatient (REF) | payer OTHER, SELFPAY ==
--- OUTSIDE RECORDS SUMMARY | 2025-07-03 09:30 | XMS_ITS | Encounter Summary ---
Author Organization [employer] Address [address] [place] [address] Care Team Providers Care Certified Alcohol Drug Counselor Name Role Phone Sammei Maharaj MD Primary Care Provider [phone] Loyda Glaser RN Unavailable [phone] Yasmin Ho MD Unavailable Reason for Visit * Reason Comments Follow-up Encounter Details Date Type Department Care Team (Late st Contact Info) Description 07/03/2025 9:30 AM EDT Office Visit [facility] [address] [place] [address] Sammie Maharaj MD [address] [place], [place] [id number] Altered mental status, unspecified altered mental status type (Primary Dx); End stage liver disease (CMS/HCC); H/O insertion of pancreatic stent; Type 2 diabetes mellitus with hyperglycemia, with long-term current use of insulin (CMS/HCC); Mixed hyperlipidemia; Anemia, unspecified type; Complex partial seizure (CMS/HCC); Aphasia; Depressive disorder; Complex care coordination; Encounter for immunization; Other specified health status Social History Tobacco Use Types Packs/Day Years [...] Sign Reading Time Taken Comments Blood Pressure 110/70 07/03/2025 9:38 AM EDT Pulse 80 07/03/2025 9:38 AM EDT Temperature 36.4 C (97.5 F) 07/03/2025 9:38 AM EDT Respiratory Rate 20 07/03/2025 9:38 AM EDT Oxygen Saturation - - Inhaled Oxygen Concentration - - Weight 50 kg (110 lb 4 oz) 07/03/2025 9:38 AM ED T Height 147.3 cm (4' 10 ) 07/03/2025 9:38 AM EDT Body Mass Index 23.04 07/03/2025 9:38 AM EDT documented in this encounter Functional Status * Over the last 2 weeks, how often have you been bothered by any of the following problems? Question Answer Date of Assessment Author Feeling nervous, anxious, or on edge 2 07/03/2025 9:44 AM EDT Heriberto Rosales MA Not being able to stop or co ntrol worrying 2 07/03/2025 9:44 AM EDT Heriberto Rosales MA Worrying too much about diff erent things 2 07/03/2025 9:44 AM EDT Heriberto Rosales MA Trouble relaxing 2 07/03/2025 9:44 AM EDT Heriberto Draper MA Being so restless that it is hard to sit still 2 07/03/2025 9:44 AM EDT Heriberto Rosales MA Becoming easily annoyed or irritable 3 07/03/2025 9:44 AM EDT Heriberto Rosales MA Feeling afraid as if somethi ng awful might happen 0 07/03/2025 9:44 AM EDT Heriberto Rosales MA CARLOS-7 Total Score 13 07/03/2025 9:44 AM EDT Heriberto Rosales MA documented as of this encounter Progress Notes * Sammie Maharaj MD - 07/03/2025 9:30 AM EDT Reza Alfred is a 45 y.o. female with past medical history generalized convulsive seizures, hypertension, type 2 diabetes, End stage liver disease, Cerebral artery, and depressive disorder who presents tot office today here for [facility] medical conditions and comprehensive annual evaluation. MATERIAL HANDLING SUPERVISOR reports pt has follow-up in Aug 2025 with her hepatology team. She says pt's mind has been foggy and she has had a lot of diarrhea. MATERIAL HANDLING SUPERVISOR has been giving her less lactulose and the diarrhea improved, but pt has been more confused. She has been struggling to talk, write or communicate even more. MATERIAL HANDLING SUPERVISOR reports pt used to take 5 packets of lactulose and has now only been taking 2. MATERIAL HANDLING SUPERVISOR also reports leg swelling. She notes things in pt's house has been bad, her daughter is not doing her part, pt has no help in the house. Social History Tobacco: denied Drugs: none Alcohol: No Sexuality: Denies current sexual activity Review of Systems Constitutional: Negative for fatigue, fever and unexpected weight change. Respiratory: Negative for cough and shortness of breath. Cardiovascular: Negative for chest pain. Gastrointestinal: Negative for abdominal pain. Genitourinary: Negative for difficulty urinating. Musculoskeletal: Negative for back pain. Psychiatric/Behavioral: Positive for behavioral problems and confusion. Current Medications[1] Allergies[2] Medical History[3] Surgical History[4] Family History[5] Objective Visit Vitals BP 110/70 (BP Location: Left arm, Patient Position: Sitting, BP Cuff Size: Adult) Pulse 80 Temp 97.5 ??F (36.4 ??C) (Oral) Resp 20 Ht 4' 10 (1.473 m) Wt 110 lb 4 oz (50 kg) BMI 23.04 kg/m?? Smoking Status Never BSA 1.43 m?? Physical Exam Constitutional: Appearance: Normal appearance. HENT: Head: Normocephalic. Right Ear: Tympanic membrane normal. Left Ear: Tympanic membrane normal. Mouth/Throat: Pharynx: Oropharynx is clear. Eyes: General: Scleral icterus present. Pupils: Pupils are equal, round, and reactive to light. Cardiovascular: Rate and Rhythm: Normal rate and regular rhythm. Heart sounds: Murmur heard. Pulmonary: Effort: Pulmonary effort is normal. Breath sounds: Normal breath sounds. Abdominal: General: Abdomen is flat. Palpations: Abdomen is soft. There is no fluid wave. Tenderness: There is no abdominal tenderness. Musculoskeletal: General: Normal range of motion. Cervical back: Normal range of motion and neck supple. Skin: General: Skin is warm and dry. Coloration: Skin is jaundiced. Neurological: Mental Status: She is alert. Comments: asterixis 45 y.o. female annual evaluation. Assessment & Plan Altered mental status, unspecified altered mental status type Pt had some episodes of diarrhea, MATERIAL HANDLING SUPERVISOR decreased lactulose from 5 packets to 2 packets, since pt hasbecome altered and confused. No other signs of bacterial infectious peritonitis or symptoms consistent with acute CVA. Pt has asterixis on exam. -discussed increasing lactulose back to 4 packets and monitoring for the next 48 hours, if no improvement to please urgently get seen at [facility] ED. -ordered labs 07/03/25 Orders: Ammonia, Plasma; Future Basic Metabolic Panel; Future Hepatic Function Panel; Future CBC; Future End stage liver disease (CMS/HCC) On liver [...] 2017 was negative. She is followed by [facility]. -liver biopsy 2019 [...] services with Dr. Yasmin Ho MD of [facility] GI 02/2024, note reviewed: She [...] 2021, possibly reactive. -liver biopsy done at [facility] 05/01/24, results pending -liver biopsy [...] Saw Transplant Hepatology and GI specialist at [facility] on 09/11/24. Per note, she remains active onLT waitlist with an updated MELD 3.0 of 19 based on blood work in April 2024. Etiology of her liver disease and progressive jaundice remains unclear despite prior MRI/MRCP and interval liver biopsy inAugust 2023 which was non-specific with non-specific findings which we reviewed with patient and [id number] again today. We recommended continuation of empiric [...] labs show elevated LFTs. Labs sent to dehydration unit operator. Due to increased bilirubin, labs were sent to dehydration unit operator who reports chronically elevated dueto chol angiopathy but higher than normal could be due to skin rash. Recommending redraw next week with PT and INR to update meld. Lab order was faxed. -reordered labs 12/05/24, stable and [facility] aware -CT 01/08/25 with Liver Transplant MD Impression: Cirrhosis status post TIPS. Unchanged intrahepatic biliary ductal dilatation in hepatic segment VII. No liver lesions. Mild increase in splenomegaly. 03/29/25 ERCP Impression: - The major papilla appeared normal. The cholangiogram was normal. One plastic pancreatic stent was placed into the ventral pancreatic duct. 04/09/25 She remains active on LT waitlist with an updated MELD 3.0 of 18 based on recent blood work.Etiology of her liver disease and cholestasis remains unclear despite prior MRI/MRCP and liver biopsy in May 2024, and ERCP demonstrated normal cholangiogram in March 2025. We recommended continuation of empiric ursodiol therapy for now (currently ~14 mg/kg) given improvement after initiation andmarked AP elevation and potential for AMA-negative PBC (although not supported by biopsy) or immune-mediated cholangiopathy. She does appear to derive benefit after short exposures to steroid therapyto which she remains intolerant (facial/leg swelling). We therefore initiated CellCept therapy for e mpiric immune-mediated hepatitis/cholangiopathy given worsening cholestatic liver test elevation, and we could consider increased dosing if no improvement in 2-3 months (stable after ~1 month of therapy). We will also resume prior PPI therapy in setting of epigastric pain after PO intake, and we will follow-up EGD results which is planned for PD stent removal to ensure no additional pathology. 06/05/25 saw GI at [facility] had EGD that showed no sign of pancreatic stent. Follow up with CT 3 phase liver as ordered by her hepatology team. H/O insertion of pancreatic stent -06/05/25 EGD and pancreatic stent removal due to pancreatic duct stent suspected to have migrated spontanesouly Type 2 diabetes mellitus with hyperglycemia, with long-term current use of insulin ([facility]) -Followed by [facility] Endocinology Diabetes are controlled. -CGM training done 10/20/23 Lab Results Component Value Date HGBA1C 4.4 03/13/2025 HGBA1C 4.6 07/09/2024 HGBA1C 4.3 01/18/2024 Lab Results Component Value Date CREATININE 0.57 04/19/2025 EGFR >60 04/19/2025 MICROALBCREU TNP 11/05/2024 MICROALBCREU TNP 07/28/2023 LDLCHOLCAL 92 10/24/2024 -Manolo/Arb: none -Statin therapy: currently on no medications. Given risk for ASCVD target for LDL cholesterol is <70 (their most recent LDL was 105 mg/dL (09/20/2023). However, given current status of liver will not recommend statin at this time. -anjali exam done 10/24/24 -Diabetic eye exam: done 02/25/25. -Diabetic foot exam: deferred since pt did not want to take her socks off, 07/09/25 -Continue lifestyle modifications -Continue current medications -Decrease Lantus insulin from 18-14 by endo 04/2024 Seen by [facility] endocrinology 04/18/24 Hemoglobin A1c is [...] upgrade to the freestyle charlotte 3 CGM. -[facility] endo 03/22/25 recommended reducing her Lantus to 8 units nightly. We discussed the fact that sugars may be less variable with an oral agent, such as a DPP-4 inhibitor or an SGLT-2 inhibitor, with less risk of hypoglycemia; however, she feels that she already takes too many pills and does not want to add more pills, and she would also no longer qualify for CGM if her insulin is stopped; thus, she will continue with a low dose of basal insulin for now. Mixed hyperlipidemia Lab Results Component Value Date CHOL 132 10/24/2024 CHOL 172 07/28/2023 TRIG 91 10/24/2024 TRIG 105 07/28/2023 HDL 22 (L) 10/24/2024 HDL 33 (L) 07/28/2023 LDLCHOLCAL 92 10/24/2024 LDLCHOLCAL 118 (H) 07/28/2023 -continue lifestyle modification Anemia, unspecified type Lab Results Component Value Date HGB 11.1 (L) 12/07/2024 HGB 12.9 12/03/2024 HGB 12.1 08/27/2024 HGB 13.9 07/28/2023 HGB 13.5 07/28/2023 HGB 12.0 12/07/2021 HGB 13.7 12/11/2020 HEMATOCRIT 35.0 12/07/2021 HEMATOCRIT 39.4 12/11/2020 Complex partial seizure (CMS/HCC) -Hx focal epilepsy [...] not drive), baths or swimming. Awaiting new MATERIAL HANDLING SUPERVISOR provider. Daughter aware of how to call 911. Followed by neurologist, -followed by Dr. Jono Eden at [facility]. Next appointment 08/2024 -she self dc???d her aspirin. I recommended she called neurology to get refills on her medication -she has been seizure free with Zonisamide 200 mg nightly and ran out of supplies 6 months ago. I recommend to resume Zonisamide since her risk of recurrent seizure is over 60% due to her prior hemorrhagic stroke. -Saw Neurologist at [facility] 08/20/24, Plan: continue ZNS 200 mg daily and follow up in one year, or sooner if needed. Aphasia -pt has expressive aphasia with a receptive component worsening since stroke. Referred to speech inthe past but tid not follow through. Depressive disorder PT refuses services with therapy or medication. She likely has component of personally disorder. She is not active in her care. She has had multiple director patient which she has fired and multiple case [...] what her services are including [facility] services. Complex care coordination -she has fired several director patient in the past. I called [facility] provider line [phone], 09/29/23 and spoke to Breanna Burleson [phone]. He reported extensive hx of working it pt and she was on the waiting list for [employer]. Her MATERIAL HANDLING SUPERVISOR will be Laxmi Mas her friend. -She has been approved for MATERIAL HANDLING SUPERVISOR hours but have not started yet as of 01/18/2024 Encounter for immunization Orders: FLU VACCINE TRIVALENT [id number] (Fluarix) 6 mo + Other specified health status -next comprehensive annual evaluation due after 07/09/25 -eye care facilitated by [facility] -dental home is [facility] -health care proxy paperwork filed 07/09/24 Annual Evaluation -Normal growth and development. -Anticipatory guidance discussed. -Preventative care / harm reduction discussed. Follow up in about 3 months (around 10/02/2025) for chronic conditions. I, Jf Beckwith, am serving as a scribe to document services personally performed by Dr. Ricci, based on the patient's response to questions by provider and providers statements to me. [1] Current Outpatient Medications: beta carotene (vitamin A) 3 MG (33991 UT) capsule, Take 10,000 Units by mouth Once per day. Per Dr.Anita Amezquita GI at [facility], Disp: , Rfl: Continuous Glucose Sensor (FreeStyle [place] 3 Plus Sensor) [facility], [facility], Disp: , Rfl: Diclofenac Sodium 1 % gel, APPLY 1 INCH TOPICALLY IN THE MORNING AND AT BEDTIME NEEDED FOR PAIN,Disp: 100 g, Rfl: 0 insulin glargine (Lantus) 100 UNIT/ML injection, Inject under the skin at bedtime. Injecting 14 units daily as directed by scale tester, Disp: , Rfl: insulin pen needle (BD Pen Needle Sandy 2nd Gen) 32G x 4 mm [facility], Inject under the skin if needed. Use as instructed, Disp: , Rfl: ursodiol (Actigall) 250 MG tablet, Take 250 mg by mouth [address] Mar[address] [facility], Disp: , Rfl: zonisamide (Zonegran) 100 MG capsule, Take 200 mg by mouth at bedtime., Disp: , Rfl: [2] Allergies Allergen Reactions Acetaminophen Other reaction(s): Rash Latex Rash [3] Past Medical History: Diagnosis Date Anemia 04/11/2012 Aphasia 02/20/2015 -pt has expressive aphasia with a receptive component worsening since stroke. Referred to speech inthe past but tid not follow through. 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 - Hx of three witnessed seizures, last requiring intubation. Sz hx: One while in hospital for stroke, one Sep 2015 and most recent Jun 2016. Seizure medication had been changed by neurology from gabapentin to Keppra February 2016 and changed to Zonisamide 200mg nightly 2020 Safety precautions discussed. No driving (she does not drive), baths or s Cryptogenic stroke (CMS/HCC) Depressive disorder 04/11/2012 PT refuses services with therapy or medication. She likely has component of personally disorder. She is not active in her care. She has had multiple director patient which she has fired and multiple case mangers. She relies heavily on her 13 year old daughter for care and looks to her when I ask her questions such as which pharmacy to you use? . At a previous visit, I mad her a binder with her specialists na Diabetes mellitus (CMS/HCC) End stage liver disease (CMS/HCC) 11/26/2016 On liver transplant list since December 2023. 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 Etiology unclear. At times she has had a transient hepatitis B positive test, but that might have been passive after blood transfusion. Last HBV PCR January 2017 was negative. She is followed by [facility] Portal hypertension (CMS/HCC) 06/14/2013 Portal hypertension with esophageal varices (CMS/HCC) Seizure disorder (CMS/HCC) Swelling of right ear 12/19/2024 [facility] (12/08/2024 - 12/10/2024) Patient presented for evaluation of ear pain and redness. Dx acute perichondritis. Treated with IV cefepime due to extensive infection. No sepsis. Some crusting but significant improvement in swelling. Discharged home with Levaquin to complete a total of 10 days of antibiotics and 4 days of prednisone. Seen by BHAVNA PARISI on 12/14/24 at pt's home for bilateral leg Type 2 diabetes mellitus (CMS/HCC) 11/19/2021 -[facility] 02/21/2024 to see endocinology Diabetes are controlled. -CGM training done 10/20/23 Lab Results Component Value Date HGBA1C 4.3 01/18/2024 HGBA1C 7.6 (A) 10/28/2023 HGBA1C 8.1 (A) 07/28/2023 Lab Results Component Value Date CREATININE 0.56 07/28/2023 EGFR >60 Varicose veins of esophagus with bleeding (CMS/HCC) 03/13/2014 -distant hx multiple GI bleeds due to esophageal varices, none since TIPS proceedure [4] Past Surgical History: Procedure Laterality Date IR TRANSJUGULAR INTRAHEPATIC PORTOSYSTEMIC SHUNT 01/08/2014 IR TRANSJUGULAR INTRAHEPATIC PORTOSYSTEMIC SHUNT 01/08/2014 LIVER BIOPSY [5] Family History Problem Relation Name Age of Onset Liver disease Brother documented in this encounter Miscellaneous Notes * Assessment & Plan Note - Sammie Maharaj MD - 07/03/2025 9:30 AM EDT Associated Problem(s): End stage liver disease (CMS/HCC) [...] 2017 was negative. She is followed by [facility]. -liver biopsy 2019 [...] services with Dr. Yasmin Ho MD of [facility] GI 02/2024, note reviewed: She [...] 2021, possibly reactive. -liver biopsy done at [facility] 05/01/24, results pending -liver biopsy [...] Saw Transplant Hepatology and GI specialist at [facility] on 09/11/24. Per note, she remains active onLT waitlist with an updated MELD 3.0 of 19 based on blood work in April 2024. Etiology of her liver disease and progressive jaundice remains unclear despite prior MRI/MRCP and interval liver biopsy inAugust 2023 which was non-specific with non-specific findings which we reviewed with patient and [id number] again today. We recommended continuation of empiric [...] labs show elevated LFTs. Labs sent to dehydration unit operator. Due to increased bilirubin, labs were sent to dehydration unit operator who reports chronically elevated dueto chol angiopathy but higher than normal could be due to skin rash. Recommending redraw next week with PT and INR to update meld. Lab order was faxed. -reordered labs 12/05/24, stable and [facility] aware -CT 01/08/25 with Liver Transplant MD Impression: Cirrhosis status post TIPS. Unchanged intrahepatic biliary ductal dilatation in hepatic segment VII. No liver lesions. Mild increase in splenomegaly. 03/29/25 ERCP Impression: - The major papilla appeared normal. The cholangiogram was normal. One plastic pancreatic stent was placed into the ventral pancreatic duct. 04/09/25 She remains active on LT waitlist with an updated MELD 3.0 of 18 based on recent blood work.Etiology of her liver disease and cholestasis remains unclear despite prior MRI/MRCP and liver biopsy in May 2024, and ERCP demonstrated normal cholangiogram in March 2025. We recommended continuation of empiric ursodiol therapy for now (currently ~14 mg/kg) given improvement after initiation andmarked AP elevation and potential for AMA-negative PBC (although not supported by biopsy) or immune-mediated cholangiopathy. She does appear to derive benefit after short exposures to steroid therapyto which she remains intolerant (facial/leg swelling). We therefore initiated CellCept therapy for e mpiric immune-mediated hepatitis/cholangiopathy given worsening cholestatic liver test elevation, and we could consider increased dosing if no improvement in 2-3 months (stable after ~1 month of therapy). We will also resume prior PPI therapy in setting of epigastric pain after PO intake, and we will follow-up EGD results which is planned for PD stent removal to ensure no additional pathology. 06/05/25 saw GI at [facility] had EGD that showed no sign of pancreatic stent. Follow up with CT 3 phase liver as ordered by her hepatology team. * Assessment & Plan Note - Sammie Maharaj MD - 07/03/2025 9:30 AM EDT Associated Problem(s): H/O insertion of pancreatic stent -06/05/25 EGD and pancreatic stent removal due to pancreatic duct stent suspected to have migrated spontanesouly * Assessment & Plan Note - Sammie Maharaj MD - 07/03/2025 9:30 AM EDT Associated Problem(s): Type 2 diabetes mellitus (CMS/HCC) -Followed by [facility] Endocinology Diabetes are controlled. -CGM training done 10/20/23 Lab Results Component Value Date HGBA1C 4.4 03/13/2025 HGBA1C 4.6 07/09/2024 HGBA1C 4.3 01/18/2024 Lab Results Component Value Date CREATININE 0.57 04/19/2025 EGFR >60 04/19/2025 MICROALBCREU TNP 11/05/2024 MICROALBCREU TNP 07/28/2023 LDLCHOLCAL 92 10/24/2024 -Manolo/Arb: none -Statin therapy: currently on no medications. Given risk for ASCVD target for LDL cholesterol is <70 (their most recent LDL was 105 mg/dL (09/20/2023). However, given current status of liver will not recommend statin at this time. -anjali exam done 10/24/24 -Diabetic eye exam: done 02/25/25. -Diabetic foot exam: deferred since pt did not want to take her socks off, 07/09/25 -Continue lifestyle modifications -Continue current medications -Decrease Lantus insulin from 18-14 by endo 04/2024 Seen by [facility] endocrinology 04/18/24 Hemoglobin A1c is [...] upgrade to the freestyle charlotte 3 CGM. -[facility] endo 03/22/25 recommended reducing her Lantus to 8 units nightly. We discussed the fact that sugars may be less variable with an oral agent, such as a DPP-4 inhibitor or an SGLT-2 inhibitor, with less risk of hypoglycemia; however, she feels that she already takes too many pills and does not want to add more pills, and she would also no longer qualify for CGM if her insulin is stopped; thus, she will continue with a low dose of basal insulin for now. * Assessment & Plan Note - Sammie Maharaj MD - 07/03/2025 9:30 AM EDT Associated Problem(s): Hyperlipidemia Lab Results Component Value Date CHOL 132 10/24/2024 CHOL 172 07/28/2023 TRIG 91 10/24/2024 TRIG 105 07/28/2023 HDL 22 (L) 10/24/2024 HDL 33 (L) 07/28/2023 LDLCHOLCAL 92 10/24/2024 LDLCHOLCAL 118 (H) 07/28/2023 -continue lifestyle modification * Assessment & Plan Note - Sammie Maharaj MD - 07/03/2025 9:30 AM EDT Associated Problem(s): Anemia Lab Results Component Value Date HGB 11.1 (L) 12/07/2024 HGB 12.9 12/03/2024 HGB 12.1 08/27/2024 HGB 13.9 07/28/2023 HGB 13.5 07/28/2023 HGB 12.0 12/07/2021 HGB 13.7 12/11/2020 HEMATOCRIT 35.0 12/07/2021 HEMATOCRIT 39.4 12/11/2020 * Assessment & Plan Note - Sammie Maharaj MD - 07/03/2025 9:30 AM EDT Associated Problem(s): Complex partial seizure (CMS/HCC) -Hx [...] not drive), baths or swimming. Awaiting new MATERIAL HANDLING SUPERVISOR provider. Daughter aware of how to call 911. Followed by neurologist, -followed by Dr. Jono Eden at [facility]. Next appointment 08/2024 -she self dc???d her aspirin. I recommended she called neurology to get refills on her medication -she has been seizure free with Zonisamide 200 mg nightly and ran out of supplies 6 months ago. I recommend to resume Zonisamide since her risk of recurrent seizure is over 60% due to her prior hemorrhagic stroke. -Saw Neurologist at [facility] 08/20/24, Plan: continue ZNS 200 mg daily and follow up in one year, or sooner if needed. * Assessment & Plan Note - Sammie Maharaj MD - 07/03/2025 9:30 AM EDT Associated Problem(s): Aphasia -pt has expressive aphasia with a receptive component worsening since stroke. Referred to speech inthe past but tid not follow through. * Assessment & Plan Note - Sammie Maharaj MD - 07/03/2025 9:30 AM EDT Associated Problem(s): Depressive disorder PT refuses services with therapy or medication. She likely has component of personally disorder. She is not active in her care. She has had multiple director patient which she has fired and multiple case [...] what her services are including [facility] services. * Assessment & Plan Note - Sammie Maharaj MD - 07/03/2025 9:30 AM EDT Associated Problem(s): Complex care coordination -she has fired several director patient in the past. I called [facility] provider line [phone], 09/29/23 and spoke to Breanna Burleson [phone]. He reported extensive hx of working it pt and she was on the waiting list for [facility]. Her MATERIAL HANDLING SUPERVISOR will be Laxmi Mas her friend. -She has been approved for MATERIAL HANDLING SUPERVISOR hours but have not started yet as of 01/18/2024 * Assessment & Plan Note - Sammie Maharaj MD - 07/03/2025 9:30 AM EDT Associated Problem(s): Other specified health status -next comprehensive annual evaluation due after 07/09/25 -eye care facilitated by [facility] -dental home is [facility] -health care proxy paperwork filed 07/09/24 documented in this encounter Plan of Treatment Upcoming Encounters Date Type Department Care Team (Late st Contact Info) Description 10/02/2025 9:30 AM EST Office Visit [facility] MEDICINE [address] [place], [place] [phone] Sammie Maharaj MD [address] [place], [place] [phone] documented as of this encounter Procedures Procedure Name Priority Date/Time Associated Diagnosis Comments CBC Routine 07/03/2025 11:18 AM EDT Altered mental status, unspecified altered mental status type AMMONIA (P) Routine 07/03/2025 11:18 AM EDT Altered mental status, unspecified altered mental status type HEPATIC FUNCTION PANEL Routine 07/03/2025 11:18 AM EDT Altered mental status, unspecified altered mental status type BASIC METABOLIC PANEL Routine 07/03/2025 11:18 AM EDT Altered mental status, unspecified altered mental status type documented in this encounter Results * (ABNORMAL) CBC (07/03/2025 11:18 AM EDT) White Blood Count 3.9(L) 4.8 - 10.8 X10*3/uL [facility] Red Blood Count 3.75(L) 4.20 - 5.50 X10*6/uL [facility] Hemoglobin 11.4(L) 12.0 - 16.0 g/dl [facility] Hematocrit 33.6(L) 37.0 - 47.0 % [facility] Mean Corpuscular Volume 89.6 80.0 - 98.0 fL [facility] Mean Corpuscular Hemoglobin 30.4 27.0 - 33.0 pg [facility] Mean Corpuscular HGB Conc 33.9 31.0 - 35.0 g/dl [facility] Red Cell Distribution Width 14.1 11.0 - 16.0 % [facility] NRBC Pct Auto 0.0 0.0 - 0.2 /100WBC [facility] NRBC Abs Auto 0.000 0.0 - 0.012 X10*3/uL [facility] Blood Venous blood specimen / Unknown 07/03/2025 11:18 AM EDT 07/03/2025 11:18 AM EDT us Sammie Maharaj MD LAB BLOOD ORDERABLES Final Result [facility] [address] [place] [phone] * (ABNORMAL) Hepatic Function Panel (07/03/2025 11:18 AM EDT) Bilirubin, Total 9.4(H) 0.0 - 1.0 mg/dL [facility] Comment:Mild Icterus. Bilirubin, Direct 7.2(H) 0.0 - 0.5 mg/dL [facility] Comment:Mild Icterus. Aspartate Amino Transferase 108(H) 5 - 31 U/L [facility] Alanine Aminotransferase 72(H) 0 - 31 U/L [facility] Total Protein 6.1(L) 6.5 - 8.0 g/dL [facility] Albumin Level 3.1(L) 3.5 - 5.0 g/dL [facility] Alkaline Phosphatase 849(H) 39 - 117 U/L [facility] Blood Venous blood specimen / Unknown 07/03/2025 11:18 AM EDT 07/03/2025 11:18 AM EDT Sammie Maharaj MD LAB BLOOD ORDERABLES Final Result Performing Organization Address [facility] Co de Phone Number [facility] [address] [place] [address] [phone] * (ABNORMAL) Basic Metabolic Panel (07/03/2025 11:18 AM EDT) Sodium 145 135 - 145 mmol/L [facility] Potassium 3.4 3.3 - 5.1 mmol/L [facility] Chloride 115(H) 96 - 108 mmol/L [facility] Carbon Dioxide 22 22 - 29 mmol/L [facility] Anion Gap 11(L) 12 - 20 [facility] Urea Nitrogen (BUN) 16 9 - 16 mg/dL [facility] Creatinine, Serum 0.52 0.5 - 1.4 mg/dL [facility] Comment:Mild Icterus.Interpr et result with caution. Estimated Glomerular Filt Rate >60 [facility] Comment:Chronic Kidney Disea se: Estimated GFR < 60 mL/min/1.73r0Xengot Kidney Disease: Estimated GFR < 15 mL/min/1.73m2 Glucose 164(H) 60 - 115 mg/dL [facility] Calcium 8.6 8.4 - 10.2 mg/dL [facility] Blood Venous blood specimen / Unknown 07/03/2025 11:18 AM EDT 07/03/2025 11:18 AM EDT Sammie Maharaj MD LAB BLOOD ORDERABLES Final Result Performing Organization Address [facility]/ZIP Co de Phone Number [facility] [address] [place] [address] [phone] * (ABNORMAL) Ammonia, Plasma (07/03/2025 11:18 AM EDT) Ammonia (P) 81(H) 13 - 55 umol/L [facility] Blood Venous blood specimen / Unknown 07/03/2025 11:18 AM EDT 07/03/2025 11:18 AM EDT Sammie Maharaj MD LAB BLOOD ORDERABLES Final Result [facility] [address] [place] [phone] [phone] documented in this encounter Visit Diagnoses Diagnosis Altered mental status, unspecified altered mental status type- Primary End stage liver disease (CMS/HCC) H/O insertion of pancreatic stent Type 2 diabetes mellitus with hyperglycemia, with long-term current use of insulin ([facility]/HCC) Mixed hyperlipidemia Anemia, unspecified type Complex partial seizure ([facility]/HCC) Aphasia Depressive disorder Depressive disorder, not elsewhere classified Complex care coordination Encounter for immunization Other specified health status documented in this encounter Additional Health Concerns Assessment Noted Time PHQ-9 Depression Total Score: 0 10/24/19 9:33 AM EST documented as of this encounter Care Teams Certified Alcohol Drug Counselor Relationship Specialty Start Date End Date Sammie Maharaj MD [address] [place] [address] PCP - General Family Medicine 10/10/18 Loyda Glaser, RN [address] [place] [address] Asbestos Worker Family Medicine 10/31/23 Yasmin Ho MD [address] [place] [address] Gastroenterology 08/29/24 Manuel Carpenter PA [facility] 55 [facility] [address] Neurology 08/29/24 Paola Tolentino NP [address] [place] [address] [address] Endocrinology 10/24/24 [facility] Psychology Psychology 12/19/24 documented as of this encounter
[2025-07-03 11:42] LABS: Ammonia 81 umol/L (13-55)
[2025-07-03 11:49] LABS: Alanine Aminotransferase 72 U/L (0-31); Albumin Level 3.1 g/dL (3.5-5.0); Alkaline Phosphatase 849 U/L (39-117); Anion Gap 11 (12-20); Aspartate Amino Transferase 108 U/L (5-31); Blood Urea Nitrogen 16 mg/dL (9-16); Calcium 8.6 mg/dL (8.4-10.2); Carbon Dioxide 22 mmol/L (22-29); Chloride 115 mmol/L (96-108); Estimated Glomerular Filt Rate > 60; Potassium 3.4 mmol/L (3.3-5.1); Sodium 145 mmol/L (135-145); Total Protein 6.1 g/dL (6.5-8.0)
[2025-07-03 11:50] LABS: Hematocrit 33.6 % (37.0-47.0); Hemoglobin 11.4 g/dl (12.0-16.0); Mean Corpuscular HGB Conc 33.9 g/dl (31.0-35.0); Mean Corpuscular Hemoglobin 30.4 pg (27.0-33.0); Mean Corpuscular Volume 89.6 fL (80.0-98.0); NRBC Abs Auto 0.000 X10*3/uL (0.0-0.012); NRBC Pct Auto 0.0 /100WBC (0.0-0.2); Red Blood Count 3.75 X10*6/uL (4.20-5.50); White Blood Count 3.9 X10*3/uL (4.8-10.8)
--- OUTSIDE RECORDS SUMMARY | 2025-07-03 12:42 | XMS_ITS | Patient Health Record ---
Author Organization [facility] Address [address] [place] [address] Care Team Providers Care Sole Skiver Name Role Phone Sammie Maharaj MD Primary Care Provider Peggy vailable Varun Lou Unavailable [phone] Reason For Referral No Information Medications Medication SIG (Take, Route, Fr equency, Duration) Notes Start Date End Date Status Omeprazole 40mg 10/10/2024 10/10/2024 Ac tive Nadolol 40mg 10/10/2024 10/10/2024 Activ e Problems Problem Type SNOMED Code ICD Code Onset Dates Problem Status W/U Status Risk Notes Problem Anemia (729400489) Unspecified anemia (285.9) Active confirmed Problem Esophageal varices without bleeding (31061904) Esophageal varices without mention of bleeding (456.1) Active confirmed Problem Ascites (496819004) Ascites, other (789.59) Active confirmed Problem Liver function tests abnormal (936121791) Nonspecific abnormal results of liver function study [...] Start Date Coverage End Date MEDICAID OF [email or web address] [address] [place] [phone] [id number] BROOK MARIA Self - patient is the insured Medical (General) History Medical History History ICD Code 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
--- OUTSIDE RECORDS SUMMARY | 2025-07-03 12:42 | XMS_ITS | Encounter Summary ---
Author Organization [employer] Address 75 [facility] 7t [place] [address] Care Team Providers Care Cryptologic Support Specialist Name Role Phone Sammie Maharaj MD Primary Care Provider [phone]- [phone] Loyda Glaser RN Unavailable [phone] Yasmin Ho MD Unavailable [phone] Reason for Visit * Reason Onset Date Comments No Show 04/21/2023 Encounter Details Date Type Department Care Team (Late st Contact Info) Description 04/21/2023 Telephone [facility] MEDICINE [address] [place] [address] Hansa Chung RN [address] [place] [address] No Show Social History Tobacco Use Types [...] and declined as she is traveling to [place] tomorrow morning and whill not be back [...] 04/21/2023 12:30 PM EDT Call received from [facility] Labs, regarding critical lab result. Pt glucose [...] Description 10/02/2025 9:30 AM EST Office Visit [facility] MEDICINE [address] [place] [address] Sammie Maharaj MD [address] [place] [address] documented as of this encounter Visit Diagnoses Not on filedocumented in this encounter Care Teams Cryptologic Support Specialist Relationship Specialty Start Date End Date Sammie Maharaj MD [address] [place] [address] PCP - General Family Medicine 10/10/18 Loyda Glaser RN [address] [place] [address] Aircraft Machinist Family Medicine 10/31/23 Yasmin Ho MD [address] [place] [address] Gastroenterology 08/29/24 Manuel Carpenter PA [address] [address] Neurology 08/29/24 Paola Tolentino NP [address] [address] Endocrinology 10/24/24 [facility] Psychology Psychology 12/19/24 documented as of this encounter
--- OUTSIDE RECORDS SUMMARY | 2025-07-03 12:42 | XMS_ITS | Encounter Summary ---
Author Organization [employer] Address 75 [facility] 7t [place] [address] Care Team Providers Care Studio Potter Name Role Phone Sammie Maharaj MD Primary Care Provider [phone] Loyda Glaser RN Unavailable [phone] Ysamin Ho MD Unavailable Encounter Details Date Type Department Care Team (Late st Contact Info) Description 11/11/2022 Abstract [facility] MEDICINE [address] [place] [address] [phone] Sammie Maharaj MD [address] [place] [address] [phone] Social History Tobacco Use Types Packs/Day Years [...] Description 10/02/2025 9:30 AM EST Office Visit [facility] MEDICINE [address] [place] [address] [phone] Sammie Maharaj MD [address] [place] [address] [phone] documented as of this encounter Procedures Procedure Name Priority Date/Time Associated Diagnosis Comments PAP SMEAR Routine 03/25/2021 12:00 AM EDT documented in this encounter Results * Pap Smear (03/25/2021 12:00 AM EDT) Swab us Historical Provider LAB CYTOLOGY ORDERABLES F inal Result IMAGING documented in this encounter Visit Diagnoses Not on filedocumented in this encounter Care Teams Studio Potter Relationship Specialty Start Date End Date Sammie Maharaj MD [address] [place] [address] PCP - General Family Medicine 10/10/18 Loyda Glaser, ERVIN [address] [place] [address] Packaging Inspector Family Medicine 10/31/23 Yasmin Ho MD [address] [place] [address] Gastroenterology 08/29/24 Manuel Carpenter PA [facility] [address] [facility] [address] Neurology 08/29/24 Paola Tolentino, HEBERT [address] [address] Endocrinology 10/24/24 [facility] Psychology Psychology 12/19/24 documented as of this encounter
--- OUTSIDE RECORDS SUMMARY | 2025-07-03 12:42 | XMS_ITS | Encounter Summary ---
Demographics Address [address] [facility] [address] [place] [address] Mobile Phone Home Phone Preferred Language Belarusian; Castilian Marital Status Single Alevism Affiliation Unknown Race Unknown Ethnic Group Unknown Author Organization [facility] Address [address] [place] [address] Support Name Relationship Address Phone Orion Rubio Daughter [address] [facility] [address] [place] [address] Care Team Providers Care Knitter Machine Name Role Phone Sammie Maharaj Primary Care Provider [phone] Encounter Details Date Type Department Care Team (Late st Contact Info) Description 11/03/2023 Orders Only [facility] Entrance B Interventional Radiology [address] [place] [address] Duncan Ragland MD [address] [place] [address] Social History Tobacco Use Types Packs/Day Years [...] Care Team (Late st Contact Info) Description 07/17/2025 8:00 AM EDT Office Visit [facility] Building Diabetes Clinic [address] [place] [address] Progress Man: Paola Vance NP [address] [facility] [place] [address] 08/27/2025 9:00 AM EST Follow-Up [facility] Liver Transplant Services [address] [place] [address] Yasmin Ho MD [address] [place] [address] 09/23/2025 8:00 AM EST Office Visit [facility] Diabetes Clinic [address] [place] [address] Progress Man: Rocio Walden NP [address] [place] [address] 12/17/2025 9:15 AM EDT Office Visit [facility] Dermatology Clinic [address]th [address] [place] [address], Fourth [place] [address] Progress Man: Isabella Tomlin PA [address] [place] [address] 03/25/2026 9:30 AM EDT Office Visit [facility] Diabetes Clinic [address] [place] [address] Progress Man: Natasha Rubalcava MD [address] [place] [address] documented as of this encounter Visit Diagnoses Not on filedocumented in this encounter Care Teams Knitter Machine Relationship Specialty Start Date End Date Nicko, Sammie Beckett [address] [place] [address] PCP - General Family Medicine 05/15/18 documented as of this encounter
--- OUTSIDE RECORDS SUMMARY | 2025-07-03 12:42 | XMS_ITS | Encounter Summary ---
Author Organization [employer] Address [address] [facility] [address] 7t [place] [address] Care Team Providers Care Attendant Coin Operated Laundry Name Role Phone Sammie Maharaj MD Primary Care Provider [phone] Loyda Glaser RN Unavailable [phone] Yasmin Ho MD Unavailable [phone] Reason for Visit * Reason Comments Med Refill Encounter Details Date Type Department Care Team (Late st Contact Info) Description 12/25/2024 Refill [facility] [address] [place], [place] [phone] Sammie Maharaj MD 230 [place], [place] [phone] Tinea unguium Social History Tobacco Use Types [...] Description 10/02/2025 9:30 AM EST Office Visit [facility] MEDICINE [address] [place] [address] Sammie Maharaj MD [address] [place] [address] documented as of this encounter Visit Diagnoses Diagnosis Tinea unguium Dermatophytosis of nail documented in this encounter Additional Health Concerns Assessment Noted Time PHQ-9 Depression Total Score: 0 10/24/19 25 9:33 AM EST documented as of this encounter Care Teams Attendant Coin Operated Laundry Relationship Specialty Start Date End Date Sammie Maharaj MD [address] [place] [address] PCP - General Family Medicine 10/10/18 Loyda Glaser RN [address] [place] [address] Director Manufacturing Engineering Family Medicine 10/31/23 Yasmin Ho MD [address] [place] [address] Gastroenterology 08/29/24 Manuel Carpenter PA U [address] [address] Neurology 08/29/24 Paola Tolentino NP [address] [address] Endocrinology 10/24/24 [facility] Psychology Psychology 12/19/24 documented as of this encounter
--- OUTSIDE RECORDS SUMMARY | 2025-07-03 12:42 | XMS_ITS | Encounter Summary ---
Author Organization [employer] Address [address] [facility] [address] 7t [place] [address] Care Team Providers Care Address Change Clerk Name Role Phone Sammie Maharaj MD Primary Care Provider [phone] Loyda Glaser RN Unavailable [phone] Yasmin Ho MD Unavailable [phone] Reason for Visit * Reason Comments Med Refill Encounter Details Date Type Department Care Team (Late st Contact Info) Description 11/13/2024 Refill [facility] [address] [place], [place] [phone] Sammie Maharaj MD 230 [place], [place] [phone] Tinea unguium Social History Tobacco Use Types [...] Description 10/02/2025 9:30 AM EST Office Visit [facility] MEDICINE [address] [place] [address] Sammie Maharaj MD [address] [place] [address] documented as of this encounter Visit Diagnoses Diagnosis Tinea unguium Dermatophytosis of nail documented in this encounter Additional Health Concerns Assessment Noted Time PHQ-9 Depression Total Score: 0 10/24/19 25 9:33 AM EST documented as of this encounter Care Teams Address Change Clerk Relationship Specialty Start Date End Date Sammie Maharaj MD [address] [place] [address] PCP - General Family Medicine 10/10/18 Loyda Glaser RN [address] [place] [address] Cementer Family Medicine 10/31/23 Yasmin Ho MD [address] [place] [address] Gastroenterology 08/29/24 Manuel Carpenter PA U [address] [address] Neurology 08/29/24 Paola Tolentino NP [address] [address] Endocrinology 10/24/24 [facility] Psychology Psychology 12/19/24 documented as of this encounter
--- OUTSIDE RECORDS SUMMARY | 2025-07-03 12:42 | XMS_ITS | Encounter Summary ---
Author Organization [employer] Address 75 [facility] 7t [place] [address] Care Team Providers Care Skein Straightener Name Role Phone Sammie Maharaj MD Primary Care Provider [phone] Loyda Glaser RN Unavailable [phone] Yasmin Ho MD Unavailable Reason for Visit * Reason Onset Date Comments Nurse Triage 03/22/2023 Encounter Details Date Type Department Care Team (Late st Contact Info) Description 03/22/2023 Telephone [facility] MEDICINE [address] [place] [address] Sammie Maharaj MD [address] [place], [place] [phone] Nurse Triage Social History Tobacco Use Types [...] 03/22/2023 2:01 PM EDT Triage call with [employer] Assistant [place] [id number] Pt didn't answer left message to call [facility] triage line at [phone]. Triage call with [employer] Assistant [place] [id number] Pt answered, Pt wasn't able to say [...] Description 10/02/2025 9:30 AM EST Office Visit [facility] MEDICINE [address] [place] [address] Sammie Maharaj MD [address] [place] [address] documented as of this encounter Visit Diagnoses Not on filedocumented in this encounter Care Teams Skein Straightener Relationship Specialty Start Date End Date Sammie Maharaj MD [address] [place] [address] PCP - General Family Medicine 10/10/18 Loyda Glaser RN [address] [place] [address] Cosmetic Counselor Family Medicine 10/31/23 Yasmin Ho MD [address] [place] [address] Gastroenterology 08/29/24 Manuel Carpenter PA [address] [address] Neurology 08/29/24 Paola Tolentino NP [address] [address] Endocrinology 10/24/24 [facility] Psychology Psychology 12/19/24 documented as of this encounter
--- OUTSIDE RECORDS SUMMARY | 2025-07-03 12:42 | XMS_ITS | Encounter Summary ---
Demographics Address [address] [facility] [address] [place] [address] Mobile Phone Home Phone Preferred Language Congolese; Castilian Marital Status Single Judaism Affiliation Unknown Race Unknown Ethnic Group Unknown Author Organization [facility] Address [address] [place] [address] Support Name Relationship Address Phone Orion Rubio Daughter [address] [facility] [address] [place] [address] Care Team Providers Care Field Hand Name Role Phone Sammie Maharaj Primary Care Provider [phone] Encounter Details Date Type Department Care Team (Late st Contact Info) Description 09/20/2023 Orders Only [facility] Interventional Radiology [address] [place] [address] Ricardo Reyez MD [address] [place] [address] Social History Tobacco Use Types Packs/Day Years [...] Description 07/17/2025 8:00 AM EDT Office Visit [facility] Building Diabetes Clinic [address] [place] [address] Automatic Spinning Lathe Setter: Paola Vance NP 291 [facility] [place] [address] 08/27/2025 9:00 AM EST Follow-Up [facility] Liver Transplant Services [address] [place] [address] Yasmin Ho MD [address] [place] [address] 09/23/2025 8:00 AM EST Office Visit [facility] Diabetes Clinic [address] [place] [address] Automatic Spinning Lathe Setter: Rocio Walden NP [address] [place] [address] 12/17/2025 9:15 AM EDT Office Visit [facility] Dermatology Clinic [address]th [address] [place] [address], [place] [address] Automatic Spinning Lathe Setter: Isabella Tomlin PA [address] [place] [address] 03/25/2026 9:30 AM EDT Office Visit [facility] Diabetes Clinic [address] [place] [address] Automatic Spinning Lathe Setter: Natasha Rubalcava MD [address] [place] [address] documented as of this encounter Visit Diagnoses Not on filedocumented in this encounter Care Teams Field Hand Relationship Specialty Start Date End Date Sammie Maharaj [address] [place] [address] PCP - General Family Medicine 05/15/18 documented as of this encounter
--- OUTSIDE RECORDS SUMMARY | 2025-07-03 12:42 | XMS_ITS | Encounter Summary ---
Author Organization [employer] Address [address] [facility] 7t [place] [address] Care Team Providers Care Email Engineer Name Role Phone Sammie Maharaj MD Primary Care Provider Loyda Glaser RN Unavailable [phone] Yasmin Ho MD Unavailable Encounter Details Date Type Department Care Team (Late st Contact Info) Description 05/16/2023 Orders Only [facility] [address] [place], [place] [phone] Emily Marcial LPN Social History Tobacco Use [...] Description 10/02/2025 9:30 AM EST Office Visit [facility] MEDICINE [address] [place] [address] Sammie Maharaj MD [address] [place], [place] [phone] documented as of this encounter Visit Diagnoses Not on filedocumented in this encounter Care Teams Email Engineer Relationship Specialty Start Date End Date Sammie Maharaj MD 230 [place], [place] [phone] PCP - General Family Medicine 10/10/18 Loyda Glaser, RN [address] [place] [address] Building Construction Estimator Family Medicine 10/31/23 Yasmin Ho MD 55 [place] [address] Gastroenterology 08/29/24 Manuel Carpenter PA [facility] 55 [facility] [address] Neurology 08/29/24 Paola Tolentino, FOOD COUNTER WORKER [address] [address] Endocrinology 10/24/24 [facility] Psychology Psychology 12/19/24 documented as of this encounter
--- OUTSIDE RECORDS SUMMARY | 2025-07-03 12:42 | XMS_ITS | Encounter Summary ---
Author Organization [employer] Address 75 [facility] 7t [place] [address] Care Team Providers Care Proration Clerk Name Role Phone Sammie Maharaj MD Primary Care Provider +1- [phone] Loyda Glaser RN Unavailable [phone] Yasmin Ho MD Unavailable [phone] Encounter Details Date Type Department Care Team (Late st Contact Info) Description 12/01/2022 Orders Only [facility] MEDICINE [address] [place] [address] [phone] Ericka Osei MD [address] [place] [address] [phone] Visual problems (Primary Dx) Social History Tobacco [...] Description 10/02/2025 9:30 AM EST Office Visit [facility] MEDICINE [address] [place] [address] [phone] Sammie Maharaj MD [address] [place] [address] [phone] documented as of this encounter Visit Diagnoses Diagnosis Visual problems- Primary documented in this encounter Care Teams Proration Clerk Relationship Specialty Start Date End Date Sammie Maharaj MD [address] [place] [address] PCP - General Family Medicine 10/10/18 Loyda Glaser, RN [address] [place] [address] Child Development Director Family Medicine 10/31/23 Yasmin Ho MD [address] [place] [address] Gastroenterology 08/29/24 Manuel Carpenter PA [facility] 55 [facility] [address] Neurology 08/29/24 Paola Tolentino, HEBERT [address] [address] Endocrinology 10/24/24 [facility] Psychology Psychology 12/19/24 documented as of this encounter
--- OUTSIDE RECORDS SUMMARY | 2025-07-03 12:42 | XMS_ITS | Encounter Summary ---
Author Organization [employer] Address 75 [facility] 7t [place] [address] Care Team Providers Care Log Pond Worker Name Role Phone Sammie Maharaj MD Primary Care Provider [phone]- [phone] Loyda Glaser RN Unavailable [phone] Yasmin Ho MD Unavailable Encounter Details Date Type Department Care Team (Latest Contact Info) Description 07/03/2025 Travel Social History Tobacco Use Types Packs/Day [...] Trouble relaxing 2 07/03/2025 9:44 AM EDT R Heriberto [place] Being so restless that it is [...] [place] documented as of this encounter Plan of Treatment Upcoming Encounters Date Type Department Care Team (Late st Contact Info) Description 10/02/2025 9:30 AM EST Office Visit [facility] MEDICINE [address] [place] [address] Sammie Maharaj MD [address] [place] [address] documented as of this encounter Visit Diagnoses Not on filedocumented in this encounter Additional Health Concerns Assessment Noted Time PHQ-9 Depression Total Score: 0 10/24/19 9:33 AM EST documented as of this encounter Care Teams Log Pond Worker Relationship Specialty Start Date End Date Sammie Maharaj MD [address] [place] [address] PCP - General Family Medicine 10/10/18 Loyda Glaser RN [address] [place] [address] Bath Steward Family Medicine 10/31/23 Yasmin Ho MD 55 [place], [place] [phone] Gastroenterology 08/29/24 Manuel Carpenter PA [facility] 55 [facility] [address] Neurology 08/29/24 Paola Tolentino NP [address] [address] Endocrinology 10/24/24 [facility] Psychology Psychology 12/19/24 documented as of this encounter
--- OUTSIDE RECORDS SUMMARY | 2025-07-03 12:42 | XMS_ITS | Encounter Summary ---
Demographics Address 17 [facility] 2 [place] [address] Mobile Phone Home Phone Preferred Language Singaporean; Castilian Marital Status Single Mosque Affiliation Unknown Race Unknown Ethnic Group Unknown Author Organization [facility] Address [address] [place] [address] Support Name Relationship Address Phone Orion Rubio Daughter 17 [facility] [address] [place] [address] Care Team Providers Care Dry Mixer Name Role Phone Sammie Maharaj Sujit Primary Care Provider [phone]- [phone] Encounter Details Date Type Department Care Team (Late st Contact Info) Description 12/14/2023 Orders Only [facility] Interventional Radiology [address] [place] [address] Smith Manzo DO 55 [place] [address] Social History Tobacco Use Types Packs/Day Years [...] Description 07/17/2025 8:00 AM EDT Office Visit [facility] Building Diabetes Clinic [address] [place] [address] Commercial Construction Project Manager: Paola Vance WEALTH MANAGEMENT MANAGER 291 [facility] [place] [address] 08/27/2025 9:00 AM EST Follow-Up [facility] Liver Transplant Services [address] [place] [address] Yasmin Ho MD [address] [place] [address] 09/23/2025 8:00 AM EST Office Visit [facility] Diabetes Clinic [address] [place] [address] Commercial Construction Project Manager: Rocio Walden NP [address] [place] [address] 12/17/2025 9:15 AM EDT Office Visit [facility] Dermatology Clinic 4th [address] [place] [address], [place] [address] Commercial Construction Project Manager: Isabella Tomlin PA [address] [place] [address] 03/25/2026 9:30 AM EDT Office Visit [facility] Diabetes Clinic [address] [place] [address] Commercial Construction Project Manager: Natasha Rubalcava MD [address] [place] [address] documented as of this encounter Visit Diagnoses Not on filedocumented in this encounter Care Teams Dry Mixer Relationship Specialty Start Date End Date Nicko, Sammie Beckett [address] [place] [address] PCP - General Family Medicine 05/15/18 documented as of this encounter
--- OUTSIDE RECORDS SUMMARY | 2025-07-03 12:42 | XMS_ITS | Encounter Summary ---
Demographics Address 17 [facility] 2 [place] [address] Mobile Phone Home Phone Preferred Language Norwegian; Castilian Marital Status Single Latter-Day Affiliation Unknown Race Unknown Ethnic Group Unknown Author Organization [facility] Address [address] [place] [address] Support Name Relationship Address Phone Orion Rubio Daughter 17 [facility] [address] [place] [address] Care Team Providers Care Recreational Counselor Name Role Phone Sammie Maharaj Primary Care Provider +1- [phone] Encounter Details Date Type Department Care Team (Late st Contact Info) Description 05/21/2025 Results Follow-Up [facility] Liver Transplant Services 55 [place] [address] Katy Boateng RN Social History Tobacco Use [...] Description 07/17/2025 8:00 AM EDT Office Visit [facility] Building Diabetes Clinic 55 [place] [address] Roofing Contractor: Paola Vance NP [address] [place] [address] [place] [address] 08/27/2025 9:00 AM EST Follow-Up [facility] Liver Transplant Services 55 [place] [address] Yasmin Ho MD [address] [place] [address] 09/23/2025 8:00 AM EST Office Visit [facility] Diabetes Clinic [address] [place] [address] Roofing Contractor: Rocio Walden, HEBERT [address] [place] [address] 12/17/2025 9:15 AM EDT Office Visit [facility] Dermatology Clinic 4th [address] [place] [address], [place] [address] Roofing Contractor: Isabella Tomlin PA [address] [place] [address] 03/25/2026 9:30 AM EDT Office Visit [facility] Diabetes Clinic [address] [place] [address] Roofing Contractor: Natasha Rubalcava MD [address] [place] [address] documented as of this encounter Goals Goal Patient Goal Type Associated Problems Recent Progress Patient-Stated? Author Autogenerat ed Goal Care Plan Autogenerated Problem No Tena Fofana documented as of this encounter Visit Diagnoses Not on filedocumented in this encounter Additional Health Concerns Active Problems Noted Date Diagnosed Date Autogenerated Problem 04/09/2025 documented as of this encounter Care Teams Recreational Counselor Relationship Specialty Start Date End Date Sammie Maharaj: [id number] [address] [place] [address] PCP - General Family Medicine 05/15/18 documented as of this encounter
--- OUTSIDE RECORDS SUMMARY | 2025-07-03 12:42 | XMS_ITS | Encounter Summary ---
Demographics Address 17 [facility] 2 [place] [address] Mobile Phone Home Phone Preferred Language Qatari; Castilian Marital Status Single Christianity Affiliation Unknown Race Unknown Ethnic Group Unknown Author Organization [facility] Address [address] [place] [address] Support Name Relationship Address Phone Orion Rubio Daughter 17 [facility] [address] [place] [address] Care Team Providers Care Weed Sprayer Name Role Phone Sammie Maharaj Primary Care Provider [phone] Encounter Details Date Type Department Care Team (Late st Contact Info) Description 10/27/2023 Orders Only [facility] Interventional Radiology 55 [place] [address] Enzo Conner MD 55 [place] [address] Social History Tobacco Use Types Packs/Day Years [...] Description 07/17/2025 8:00 AM EDT Office Visit [facility] Building Diabetes Clinic 55 [place], [place] [phone] Boot Turner: Paola Vance NP [address] [place] [address] [place] [address] 08/27/2025 9:00 AM EST Follow-Up [facility] Liver Transplant Services [address] [place] [address] Yasmin Ho MD [address] [place] [address] 09/23/2025 8:00 AM EST Office Visit [facility] Diabetes Clinic [address] [place] [address] Boot Turner: Rocio Walden NP [address] [place] [address] 12/17/2025 9:15 AM EDT Office Visit [facility] Dermatology Clinic 4th Floor [address] [place] [address], [place] [address] Boot Turner: Isabella Tomlin PA [address] [place] [address] 03/25/2026 9:30 AM EDT Office Visit [facility] Diabetes Clinic [address] [place] [address] Boot Turner: Natasha Rubalcava MD [address] [place] [address] documented as of this encounter Visit Diagnoses Not on filedocumented in this encounter Care Teams Weed Sprayer Relationship Specialty Start Date End Date Sammie Maharaj [address] [place] [address] PCP - General Family Medicine 05/15/18 documented as of this encounter
--- OUTSIDE RECORDS SUMMARY | 2025-07-03 12:42 | XMS_ITS | Encounter Summary ---
Author Organization [employer] Address [address] [facility] [address] 7t [place] [address] Care Team Providers Care Microbiology Soil Scientist Name Role Phone Sammie Mahraaj MD Primary Care Provider +1- [phone] Loyda Glaser RN Unavailable [phone] Yasmin Ho MD Unavailable [phone] Reason for Visit * Reason Onset Date Comments Referral 12/01/2022 Encounter Details Date Type Department Care Team (Late st Contact Info) Description 12/01/2022 Telephone [facility] MEDICINE 230 [place] [address] Sammie Maharaj MD 230 [place], [place] [phone] Referral Social History Tobacco Use Types Packs/Day [...] [facility] Please contact pt at [phone] or Becca [phone] documented in this encounter Plan of Treatment Upcoming Encounters Date Type Department Care Team (Late st Contact Info) Description 10/02/2025 9:30 AM EST Office Visit [facility] MEDICINE [address] [place] [address] Sammie Maharaj MD [address] [place] [address] documented as of this encounter Visit Diagnoses Not on filedocumented in this encounter Care Teams Microbiology Soil Scientist Relationship Specialty Start Date End Date Sammie Maharaj MD [address] [place] [address] PCP - General Family Medicine 10/10/18 Loyda Glaser, ERVIN [address] [place] [address] Gum Cook Family Medicine 10/31/23 Yasmin Ho MD [address] [place] [address] Gastroenterology 08/29/24 Manuel Carpenter PA [facility] 55 [facility] [address] Neurology 08/29/24 Paola Tolentino NP [address] [address] Endocrinology 10/24/24 [facility] Psychology Psychology 12/19/24 documented as of this encounter
--- OUTSIDE RECORDS SUMMARY | 2025-07-03 12:42 | XMS_ITS | Encounter Summary ---
Author Organization [email or web address] Address [address] [facility] [address] 7t [place] [address] Care Team Providers Care Choir Director Name Role Phone Sammie Maharaj MD Primary Care Provider [phone]- [phone] Loyda Glaser RN Unavailable [phone] Yasmin Ho MD Unavailable [phone] Reason for Visit * Reason Comments Med Refill Encounter Details Date Type Department Care Team (Late st Contact Info) Description 07/02/[address] [facility] 230 [place], [place] [phone] Sammie Maharaj MD 230 [place], [place] [phone] Social History Tobacco Use Types Packs/Day Years [...] Description 10/02/2025 9:30 AM EST Office Visit [facility] MEDICINE 230 [place] [address] Sammie Maharaj MD [address] [place] [address] documented as of this encounter Visit Diagnoses Not on filedocumented in this encounter Additional Health Concerns Assessment Noted Time PHQ-9 Depression Total Score: 0 10/24/19 25 9:33 AM EST documented as of this encounter Care Teams Choir Director Relationship Specialty Start Date End Date Sammie Maharaj MD [address] [place] [address] PCP - General Family Medicine 10/10/18 Loyda Glaser, ERVIN [address] [place] [address] Front Office Spec Family Medicine 10/31/23 Yasmin Ho MD [address] [place] [address] Gastroenterology 08/29/24 Manuel Carpenter PA [address] [address] Neurology 08/29/24 Paola Tolentino NP [address] [address] Endocrinology 10/24/24 [facility] Psychology Psychology 12/19/24 documented as of this encounter
--- OUTSIDE RECORDS SUMMARY | 2025-07-03 12:42 | XMS_ITS | Encounter Summary ---
Demographics Address 17 [facility] 2 [place] [address] Mobile Phone Home Phone Preferred Language Singaporean; Castilian Marital Status Single Episcopalian Affiliation Unknown Race Unknown Ethnic Group Unknown Author Organization [facility] Address [address] [place] [address] Support Name Relationship Address Phone Orion Rubio Daughter 17 [facility] [address] [place] [address] Care Team Providers Care Tag Clerk Name Role Phone Sammie Maharaj Primary Care Provider [phone] Encounter Details Date Type Department Care Team (Late st Contact Info) Description 11/04/2023 Orders Only [facility] Entrance B Interventional Radiology [address] [place] [address] Duncan Ragland MD [address] [place] [address] Social History Tobacco Use Types Packs/Day Years [...] Description 07/17/2025 8:00 AM EDT Office Visit [facility] Building Diabetes Clinic 55 [place] [address] Automated Teller Manager: Paola Vance NP 291 [facility] [place] [address] 08/27/2025 9:00 AM EST Follow-Up [facility] Liver Transplant Services [address] [place] [address] Yasmin Ho MD [address] [place] [address] 09/23/2025 8:00 AM EST Office Visit [facility] Diabetes Clinic [address] [place] [address] Automated Teller Manager: Rocio Walden NP [address] [place] [address] 12/17/2025 9:15 AM EDT Office Visit [facility] Dermatology Clinic 4th Floor [address] [place] [address], [place] [address] Automated Teller Manager: Isabella Tomlin PA [address] [place] [address] 03/25/2026 9:30 AM EDT Office Visit [facility] Diabetes Clinic [address] [place] [address] Automated Teller Manager: Natasha Rubalcava MD [address] [place] [address] documented as of this encounter Visit Diagnoses Not on filedocumented in this encounter Care Teams Tag Clerk Relationship Specialty Start Date End Date Nicko, Sammie Beckett [address] [place] [address] PCP - General Family Medicine 05/15/18 documented as of this encounter
--- OUTSIDE RECORDS SUMMARY | 2025-07-03 12:43 | XMS_ITS ---
Demographics Address 17 [facility] 2 [place] [address] Mobile Phone Home Phone Preferred Language French; Castilian Marital Status Single Faith Affiliation Unknown Race Unknown Ethnic Group Unknown Author Organization [facility] Address [address] [place] [address] Support Name Relationship Address Phone Orion Rubio Daughter 17 [facility] [address] [place] [address] Care Team Providers Care Construction Engineer Name Role Phone Sammie Maharaj Sujit Primary Care Provider [phone] Transplant Episode Liver Candidate [facility] [place] Center waitlisted on 12/30/2023 Marked as Active on 12/30/2023 Liver CoordinatorKaty Boateng RN Phone: N/A Fax: N/A Email: N/A Scores Score Value Updated Expires Exceptions/[place] sons CPRA Not available UNOS MELD 18 06/14/2025 09/12/2025 MELD (Calc) 18 06/11/2025 [place] Organ Diagnosis Organ Primary Contributory 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
--- OUTSIDE RECORDS SUMMARY | 2025-07-03 12:43 | XMS_ITS | Encounter Summary ---
Demographics Address 17 [facility] 2 [place] [address] Mobile Phone Home Phone Preferred Language Greek; Castilian Marital Status Single Taoist Affiliation Unknown Race Unknown Ethnic Group Unknown Author Organization [facility] Address [address] [place] [address] Support Name Relationship Address Phone Orion Rubio Daughter 17 [facility] [address] [place] [address] Care Team Providers Care Sales Support Manager Name Role Phone Sammie Maharaj Sujit Primary Care Provider [phone] Encounter Details Date Type Department Care Team (Late st Contact Info) Description 09/12/2024 Orders Only [facility] Interventional Radiology 55 [place] [address] Eugene Warren MD 55 [place] [address] Social History Tobacco Use Types Packs/Day Years [...] Description 07/17/2025 8:00 AM EDT Office Visit [facility] Building Diabetes Clinic 55 [place] [address] Sales Representative Printing: Paola Vance HANGER 291 [facility] [place] [address] 08/27/2025 9:00 AM EST Follow-Up [facility] Liver Transplant Services [address] [place] [address] Yasmin Ho MD [address] [place] [address] 09/23/2025 8:00 AM EST Office Visit [facility] Diabetes Clinic [address] [place] [address] Sales Representative Printing: Rocio Walden NP [address] [place] [address] 12/17/2025 9:15 AM EDT Office Visit [facility] Dermatology Clinic 4th Floor [address] [place] [address], Fourth [place] [address] Sales Representative Printing: Isabella Tomlin PA [address] [place] [address] 03/25/2026 9:30 AM EDT Office Visit [facility] Diabetes Clinic [address] [place] [address] Sales Representative Printing: Natasha Rubalcava MD [address] [place] [address] documented as of this encounter Visit Diagnoses Not on filedocumented in this encounter Care Teams Sales Support Manager Relationship Specialty Start Date End Date Sammie Maharaj [address] [place] [address] PCP - General Family Medicine 05/15/18 documented as of this encounter
--- OUTSIDE RECORDS SUMMARY | 2025-07-03 12:43 | XMS_ITS | Encounter Summary ---
Author Organization [facility] Address [address] [place] [address] Support Name Relationship Address Phone Orion Rubio Daughter [address] [facility] [address] [place] [address] Care Team Providers Care Personal Banker Name Role Phone Sammie Maharaj Primary Care Provider +[phone] Reason for Referral * Consultation (Routine) - Authorized Specialty Diagnoses / Procedures Referred By Edu [email or web address] Referred To Contact Dermatology Diagnoses Alopecia Sammie Maharaj [address] [place] [address] Phone: tel: fax: Perlita Choe MD [address] [place] [address] Phone: tel: fax: Referral ID Status Reason Start Date Expiration Date Visits Requested Visits Authorized [id number] Authorized Specialty Services Required 03/29/2025 04/28/2026 6 6 Encounter Details Date Type Department Care Team (Late st Contact Info) Description 03/29/2025 Transcribe Orders [facility] Physician Referral Services [address] [place] [address] Sammie Maharaj [address] [place], [place] 1985640 Alopecia (Primary Dx) Social History Tobacco Use [...] Description 07/17/2025 8:00 AM EDT Office Visit [facility] Diabetes Clinic 55 [place] [address] Speeder Frame Tender: Paola Vance NP 291 [facility] [place] [address] 08/27/2025 9:00 AM EST Follow-Up [facility] Liver Transplant Services 55 [place] [address] Yasmin Ho MD 55 [place] [address] 09/23/2025 8:00 AM EST Office Visit [facility] Diabetes Clinic 55 [place] [address] Speeder Frame Tender: Rocio Walden NP [address] [place] [address] 12/17/2025 9:15 AM EDT Office Visit [facility] Dermatology Clinic 4th Floor 281 [facility], Fourth [place] [address] Speeder Frame Tender: Isabella Tomlin PA [address] [place] [address] 03/25/2026 9:30 AM EDT Office Visit [facility] Diabetes Clinic 55 [place] [address] Speeder Frame Tender: Natasha Rubalacva MD [address] [place] [address] Scheduled Referrals Name Type Priority Associated Diagnoses Order Schedule Ambulatory referral to Dermatology Outpatient Referral Routine Alopecia Expected: 03/29/2025, Expires: 04/28/2026 documented as of this encounter Visit Diagnoses Diagnosis Alopecia- Primary documented in this encounter Care Teams Personal Banker Relationship Specialty Start Date End Date Sammie Maharaj: [phone] [address] [place] [address] PCP - General Family Medicine 05/15/18 documented as of this encounter
--- OUTSIDE RECORDS SUMMARY | 2025-07-03 12:43 | XMS_ITS | Clinical Summary ---
Author Organization [employer] Address [address] [place] [address] [address] [place] [address] Care Team Providers Care Hardware Installation Coordinator Name Role Phone Sammie Maharaj MD Primary Care Provider [phone] Loyda Glaser RN Unavailable [phone] Yasmin Ho MD Unavailable [phone] Allergies Active Allergy Reactions Criticality Noted Date Comments Acetaminophen 09/09/2014 Other reaction(s): Rash Latex Rash Low 06/29/2023 Medications Continuous Glucose Sensor (FreeStyle Charlotte 3 Plus Sensor) miscIndicatio ns:Type 2 diabetes mellitus with hyperglycemia , with long-term current use of insulin (CMS/HCC) [facility] Active insulin glargine (Lantus) 100 UNIT/ML injectionIndi cations:Type 2 diabetes mellitus with hyperglycemia , with long-term current use of insulin ([facility]/HCC) Inject under the skin at bedtime. Injecting 14 units daily as directed by brush operator Active ursodiol (Actigall) 250 MG tabletIndicat ions:End stage liver disease (CMS/HCC) Take 250 mg by mouth [address] Marilee [facility] Active beta carotene (vitamin A) 3 MG (55056 UT) capsuleIndica tions:End stage liver disease (CMS/HCC) Take 10,000 Units by mouth Once per day. Per SHEILA Perez at [facility] liver CLinic Active insulin pen [...] different from the original. [facility] provider line [phone], called 09/29/23 Breanna Burleson [phone]. 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 Tsh normal 01/2025. Pt is chronically ill. -referral to derm 03/13/25 Assessment & Plan (03/13/2025 3:55 PM EDT): [...] if needed. I spoke with Liz at [facility] liver transplant clinic, explained the situation and ask them to run the pictures and case by motors and generators inspector in case this is not related to liver disease which she is unlikely. Hyperlipidemia 11/15/2024 Overview (07/03/2025): Lab Results Component Value Date CHOL 132 10/24/2024 CHOL 172 07/28/2023 TRIG 91 10/24/2024 TRIG 105 07/28/2023 HDL 22 (L) 10/24/2024 HDL 33 (L) 07/28/2023 LDLCHOLCAL 92 10/24/2024 LDLCHOLCAL 118 (H) 07/28/2023 -continue lifestyle modification Assessment & Plan (07/03/2025 12:00 PM EDT): Lab Results Component Value Date CHOL 132 [...] Overview (03/13/2025): CT abd pelvis ordered by [facility] liver clinic and dated 01/28/24 IMPRESSION: [...] appear significantly changed from 2021, possibly reactive. [facility] not from 02/24/24 Telephone Encounter - Katy Boateng RN 10:24 AM LVM for patient using furnishings conservator, Ari [id number], about results of MRI and scheduling of [...] AM EST): CT abd pelvis ordered by [facility] liver [facility] and dated 01/28/24 IMPRESSION: 1. A 1.3 [...] appear significantly changed from 2021, possibly reactive. [facility] not from 02/24/24 Telephone Encounter - Katy Boateng RN 10:24 AM LVM for patient using furnishings conservator, Ari [id number], about results of MRI and scheduling of [...] AM EDT): CT abd pelvis ordered by [facility] liver [facility] and dated 01/28/24 IMPRESSION: 1. A 1.3 [...] RN 10:24 AM LVM for patient using furnishings conservator, Ari [id number], about results of MRI and scheduling of [...] 11/14/2023 Overview (01/18/2024): -she has fired several oral surgery physician in the past. I called [facility] provider line [phone], 09/29/23 and spoke to [facility] [phone]. He reported extensive hx of working it pt and she was on the waiting list for starvros. Her SHIP RIGGER APPRENTICE will be Laxmi Mas her friend. -She has been approved for SHIP RIGGER APPRENTICE hours but have not started yet as of 01/18/2024 Assessment & Plan (07/03/2025 12:00 PM EDT): -she has fired several oral surgery physician in the past. I called [facility] provider line [phone], 09/29/23 and spoke to [facility] [phone]. He reported extensive hx of working it pt and she was on the waiting list for starvros. Her SHIP RIGGER APPRENTICE will be Laxmi Mas her friend. -She has been approved for SHIP RIGGER APPRENTICE hours but have not started yet as of 01/18/2024 Assessment & Plan (01/18/2024 9:17 AM EDT): -she has fired several oral surgery physician in the past. I called [facility] provider line [phone], 09/29/23 and spoke to Breanna Burleson [phone]. He reported extensive hx of working it pt and she was on the waiting list for starvros. Her SHIP RIGGER APPRENTICE will be Laxmi Mas her friend. -She has been approved for SHIP RIGGER APPRENTICE hours but have not started yet as of 01/18/2024 Pain in hand and fingers 09/29/2023 Overview (01/18/2024): -refer to occupational therapy 01/18/2024 Assessment & Plan (09/29/2023 11:55 AM EST): No etiology on exam. Pt high risk for dyupetryns. Recommend warm wraps and rest. Other specified health status 07/21/2023 Overview (07/03/2025): -next comprehensive annual evaluation due after 07/09/25 -eye care facilitated by [facility] -dental home is [facility] -health care proxy paperwork filed 07/09/24 Assessment & Plan (07/03/2025 12:00 PM EDT): -next comprehensive annual evaluation due after 07/09/25 -eye care facilitated by [facility] -dental home is [facility] -health care proxy paperwork filed 07/09/24 Assessment & Plan (03/13/2025 3:41 PM EDT): -next physical exam due after 07/09/25 -eye care facilitated by [facility] -dental home is [facility] -health care proxy paperwork filed 07/09/24 Assessment & Plan (12/19/2024 1:03 PM EDT): -next physical exam due after 07/09/25 -eye care facilitated by [facility] -dental home is [facility] -health care proxy paperwork filed 07/09/24 Assessment & Plan (10/24/2024 9:48 AM EST): -next physical exam due after 07/09/25 -eye care facilitated by [facility] -dental home is [facility] -health care proxy paperwork given 10/20/23. Filed 07/09/24 Assessment & Plan (07/09/2024 10:17 AM EDT): -next physical exam due after 07/09/25 -eye care facilitated by [facility] -dental home is [facility] -health care proxy paperwork given 10/20/23. Filed 07/09/24 Assessment & Plan (01/18/2024 9:16 AM EDT): -next physical exam due after 07/28/2024 -eye care facilitated by [facility] -dental home is none -health care proxy paperwork given 10/20/23 Assessment & Plan (10/20/2023 9:33 AM EST): -next physical exam due after 07/28/2024 -eye care facilitated by [facility] referral placed 09/29/23 -dental home is none -health care proxy paperwork given 10/20/23 Assessment & Plan (09/29/2023 11:46 AM EST): -next physical exam due after 07/28/2024 -eye care facilitated by [facility] referral placed 09/29/23 -dental home is none Assessment & Plan (07/28/2023 10:05 AM EDT): -next physical exam due after 07/28/2024 -eye care facilitated by [facility] -dental home is none Type 2 diabetes mellitus 11/19/2021 Overview (07/03/2025): -Followed by [facility] Diabetes are controlled. -CGM training done [...] from 18-14 by endo 04/2024 Seen by [facility] endocrinology 04/18/24 Hemoglobin A1c is falsely [...] upgrade to the freestyle charlotte 3 CGM. -[facility] endo 03/22/25 recommended reducing her Lantus to [...] low dose of basal insulin for now. Assessment & Plan (07/03/2025 12:00 PM EDT): -Followed by [facility] [...] from 18-14 by endo 04/2024 Seen by [facility] endocrinology 04/18/24 Hemoglobin A1c is falsely [...] upgrade to the freestyle charlotte 3 CGM. -[facility] endo 03/22/25 recommended reducing her Lantus to [...] low dose of basal insulin for now. Assessment & Plan (03/13/2025 3:49 PM EDT): -[facility] by [facility] [...] from 18-14 by endo 04/2024 Seen by [facility] endocrinology 04/18/24 Hemoglobin A1c is falsely [...] approval for her to upgrade to the [employer] charlotte 3 CGM. Assessment & Plan (12/19/2024 1:03 PM EDT): -Followed by [facility] Diabetes are controlled. -CGM training [...] from 18-14 by endo 04/2024 Seen by [facility] endocrinology 04/18/24 Hemoglobin A1c is falsely [...] approval for her to upgrade to the free[employer]yle charlotte 3 CGM. Assessment & Plan (10/24/2024 9:48 AM EST): -[facility] 02/21/2024 to see endocinology Diabetes are controlled. [...] from 18-14 by endo 04/2024 Seen by [facility] endocrinology 04/18/24 Hemoglobin A1c is falsely [...] approval for her to upgrade to the [employer] charlotte 3 CGM. Assessment & Plan (07/09/2024 [...] from 18-14 by endo 04/2024 Seen by [facility] endocrinology 04/18/24 Hemoglobin A1c is falsely [...] approval for her to upgrade to the [employer] charlotte 3 CGM. Assessment & Plan (01/18/2024 [...] 12/27/2016 End stage liver disease 11/26/2016 Overview (07/03/2025): On liver transplant list since December 2023. 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 Etiology unclear. At times she has had a transient hepatitis B positive test, but that might have been passive after blood transfusion. Last HBV PCR January 2017 was negative. She is followed by [facility] Liver [facility]. -liver biopsy 2019 mild, [...] services with Dr. Yasmin Ho MD of [facility] GI 02/2024, note reviewed: She remains [...] 2021, possibly reactive. -liver biopsy done at [facility] 05/01/24, results pending -liver biopsy results [...] findings which we reviewed with patient and [id number] again today. We recommended continuation of empiric [...] labs show elevated LFTs. Labs sent to motors and generators inspector. Due to increased bilirubin, labs were sent to motors and generators inspector who reports 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 Recommending redraw next week with PT and INR to update meld. Lab order was faxed. -reordered labs 12/05/24, stable and [facility] aware -CT 01/08/25 with Liver Transplant [...] 3.0 of 18 based on recent blood work. Etiology of her liver disease and cholestasis remains [...] derive benefit after short exposures to steroid therapy to which she remains intolerant (facial/leg swelling). 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 We will also resume prior PPI therapy in setting of epigastric pain after PO intake, and we will follow-up EGD results which is planned for PD stent removal to ensure no additional pathology. 06/05/25 saw GI at [facility] had EGD that showed no sign of pancreatic stent. Follow up with CT 3 phase liver as ordered by her hepatology team. Assessment & Plan (07/03/2025 12:00 PM EDT): On liver transplant list since [...] 2017 was negative. She is followed by [facility] Liver [facility]. -liver biopsy 2019 mild, [...] services with Dr. Yasmin Ho MD of [facility] GI 02/2024, note reviewed: She remains [...] 2021, possibly reactive. -liver biopsy done at [facility] 05/01/24, results pending -liver biopsy results [...] findings which we reviewed with patient and [id number] again today. We recommended continuation of empiric [...] labs show elevated LFTs. Labs sent to motors and generators inspector. Due to increased bilirubin, labs were sent to motors and generators inspector who reports 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 Recommending redraw next week with PT and INR to update meld. Lab order was faxed. -reordered labs 12/05/24, stable and [facility] aware -CT 01/08/25 with Liver Transplant [...] 3.0 of 18 based on recent blood work. Etiology of her liver disease and cholestasis remains [...] derive benefit after short exposures to steroid therapy to which she remains intolerant (facial/leg swelling). 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 We will also resume prior PPI therapy in setting of epigastric pain after PO intake, and we will follow-up EGD results which is planned for PD stent removal to ensure no additional pathology. 06/05/25 saw GI at [facility] had EGD that showed no sign of pancreatic stent. Follow up with CT 3 phase liver as ordered by her hepatology team. Assessment & Plan (03/13/2025 3:40 PM EDT): [...] 2017 was negative. She is followed by [facility] Liver [facility]. -liver biopsy 2019 mild, [...] services with Dr. Yasmin Ho MD of [facility] 02/2024, note reviewed: She remains [...] which does not appear significantly changed from 2022, possibly reactive. -liver biopsy done at [facility] 05/01/24, results pending -liver biopsy results [...] findings which we reviewed with patient and [id number] again today. We recommended continuation of empiric [...] labs show elevated LFTs. Labs sent to motors and generators inspector. Due to increased bilirubin, labs were sent to motors and generators inspector who reports chronically elevated due to chol [...] 2017 was negative. She is followed by [facility]. -liver biopsy 2019 mild, [...] services with Dr. Yasmin Ho MD of [facility] 02/2024, note reviewed: She remains [...] which does not appear significantly changed from , possibly reactive. -liver biopsy done at [facility] 05/01/24, results pending -liver biopsy results [...] findings which we reviewed with patient and [id number]-[id number] again today. We recommended continuation of empiric [...] labs show elevated LFTs. Labs sent to motors and generators inspector. Due to increased bilirubin, labs were sent to motors and generators inspector who reports 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 Recommending redraw next week with PT and INR to update meld. Lab order was faxed. -reordered labs 12/05/24, stable and [facility] aware Assessment & Plan (12/05/2024 2:36 [...] 2017 was negative. She is followed by [facility] Liver Clinic. -liver biopsy 2019 mild, [...] services with Dr. Yasmin Ho MD of [facility] 02/2024, note reviewed: She remains [...] 2021, possibly reactive. -liver biopsy done at [facility] 05/01/24, results pending -liver biopsy results [...] findings which we reviewed with patient and [id number] again today. We recommended continuation of empiric [...] labs show elevated LFTs. Labs sent to motors and generators inspector. Due to increased bilirubin, labs were sent to motors and generators inspector who reports chronically elevated due to chol [...] 2017 was negative. She is followed by [facility] Liver [facility]. -liver biopsy 2019 mild, [...] services with Dr. Yasmin Ho MD of [facility] 02/2024, note reviewed: She remains [...] 2021, possibly reactive. -liver biopsy done at [facility] 05/01/24, results pending -liver biopsy results [...] findings which we reviewed with patient and yyfzlm-ec-oss again today. We recommended continuation of empiric [...] 2017 was negative. She is followed by [facility]. -liver biopsy 2019 mild, [...] services with Dr. Yasmin Ho MD of [facility] 02/2024, note reviewed: She remains [...] 202, possibly reactive. -liver biopsy done at [facility] 05/01/24, results pending -liver biopsy results [...] not drive), baths or swimming. Awaiting new SHIP RIGGER APPRENTICE provider. Daughter aware of how to call 911. Followed by neurologist, -followed by Dr. Jono Eden at [facility]. Next appointment 08/2024 [...] or sooner if needed. Assessment & Plan (07/03/2025 12:00 PM EDT): -Hx focal epilepsy secondary to [...] not drive), baths or swimming. Awaiting new SHIP RIGGER APPRENTICE provider. Daughter aware of how to call 911. Followed by neurologist, -followed by Dr. Jono Eden at [facility]. Next appointment 08/2024 -she self dc d [...] not drive), baths or swimming. Awaiting new SHIP RIGGER APPRENTICE provider. Daughter aware of how to call 911. Followed by neurologist, -followed by Dr. Jono Eden at [facility]. Next appointment 08/2024 -she self dc d [...] not drive), baths or swimming. Awaiting new SHIP RIGGER APPRENTICE provider. Daughter aware of how to call 911. Followed by neurologist, -followed by Dr. Jono Eden at [facility]. Next appointment 08/2024 -she self dc d [...] no idea if she is taking this. [facility] rec referral placed 10/24/24 Assessment & Plan [...] not drive), baths or swimming. Awaiting new SHIP RIGGER APPRENTICE provider. Daughter aware of how to call 911. Followed by neurologist, -followed by Dr. Jono Eden at [facility]. Next appointment 08/2024 -she self dc d [...] tid not follow through. Assessment & Plan (07/03/2025 12:00 PM EDT): -pt has expressive aphasia with a receptive [...] time later to 10 PM Anemia 04/11/2012 Overview (07/03/2025): Lab Results Component Value Date HGB 11.1 (L) 12/07/2024 HGB 12.9 12/03/2024 HGB 12.1 08/27/2024 HGB 13.9 07/28/2023 HGB 13.5 07/28/2023 HGB 12.0 12/07/2021 HGB 13.7 12/11/2020 HEMATOCRIT 35.0 12/07/2021 HEMATOCRIT 39.4 12/11/2020 Assessment & Plan (07/03/2025 12:00 PM EDT): Lab Results Component Value Date HGB 11.1 (L) 12/07/2024 HGB 12.9 12/03/2024 HGB 12.1 08/27/2024 HGB 13.9 07/28/2023 HGB 13.5 07/28/2023 HGB 12.0 12/07/2021 HGB 13.7 12/11/2020 HEMATOCRIT 35.0 12/07/2021 HEMATOCRIT 39.4 12/11/2020 Depressive disorder 04/11/2012 Overview (06/29/2023): PT refuses services with therapy or medication. She likely has component of personally disorder. She is not active in her care. She has had multiple oral surgery physician which she has fired and multiple case [...] are including [facility] services. Assessment & Plan (07/03/2025 12:00 PM EDT): PT refuses services with therapy or medication. She likely has component of personally disorder. She is not active in her care. She has had multiple oral surgery physician which she has fired and multiple case [...] in her care. She has had multiple oral surgery physician which she has fired and multiple case [...] in her care. She has had multiple oral surgery physician which she has fired and multiple case [...] in her care. She has had multiple oral surgery physician which she has fired and multiple case [...] Swelling of right ear 12/19/20242024 Overview (12/19/2024): [facility] [place]12/08/[place] - 12/10/2024) Patient presented for evaluation [...] symptoms resolved. Pt called her specialist in [place]. She is doing much better. She showed me a photo of her year that was severely inflamed with vesicles and erythremia. This has resoled and no longer on prednisone. She requests letter to keep her dog at home due to her anxiety. Assessment & Plan (12/19/2024 1:01 PM EDT): [facility] [place]12/08/20[place] - 12/10/2024) Patient presented for evaluation [...] symptoms resolved. Pt called her specialist in [place]. She is doing much better. 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 At times she has had a transient hepatitis B positive test, but that might have been passive after blood transfusion. Last HBV PCR January 2017 was negative. She is followed by [facility]. -liver biopsy 2019 mild, [...] services with Dr. Yasmin Ho MD of [facility] 12/12/2023, note reviewed Cirrhosis: -Compensated: [...] diet discussed. Avoid hepatotoxic agents. -Followed by: [facility] -continue ursodiol therapy given marked AP elevation and potential for AMA negative PCB. -transplant candidacy will be determined by multidisciplinary transplant committee after all appropriate testing has been performed. -Has follow up with liver transplant strategic sourcing consultant [facility] at [facility] [...] 2017 was negative. She is followed by [facility]. -seen by Liver Transplant [...] diet discussed. Avoid hepatotoxic agents. -Followed by: [facility] -continue ursodiol therapy given marked AP elevation and potential for AMA negative PCB. -transplant candidacy will be determined by multidisciplinary transplant committee after all appropriate testing has been performed. -call place by me to [facility] rental boats caretaker at [facility] [phone] to stress the urgency of SHIP RIGGER APPRENTICE services and increase level of care. He [...] 2017 was negative. She is followed by [facility]. -seen by Liver Transplant [...] diet discussed. Avoid hepatotoxic agents. -Followed by: [facility] -continue ursodiol therapy given marked AP elevation and potential for AMA negative PCB. -transplant candidacy will be determined by multidisciplinary transplant committee after all appropriate testing has been performed. -call place by me to [facility] rental boats caretaker at [facility] [phone] cell [phone] to stress the urgency of SHIP RIGGER APPRENTICE services and increase level of care. He [...] 2017 was negative. She is followed by [facility]. The possibility for liver [...] name, number, my - Last note from 04/2021. Encounters Date Type Department Care Team Description 07/03/2025 9:30 AM EDT Office Visit [facility] [address] [place] [id number] Sammie Maharaj MD Altered mental status, unspecified altered mental status type (Primary Dx); End stage liver disease (CMS/HCC); H/O insertion of pancreatic stent; Type 2 diabetes mellitus with hyperglycemia, with long-term current use of insulin (CMS/HCC); Mixed hyperlipidemia; Anemia, unspecified type; Complex partial seizure (CMS/HCC); Aphasia; Depressive disorder; Complex care coordination; Encounter for immunization; Other specified health status 07/03/2025 Travel 07/02/2025 Refill [facility] [address] [place] [id number] Sammie Maharaj MD 06/02/2025 Refill [facility] [address] [place] [id number] Miriam Shipman MD 06/02/2025 Refill [facility] [address] [place] [id number] Sammie Maharaj MD Tinea unguium 05/28/[address] [address] Laya Azul MA 04/19/2025 Orders Only [address] [address] Sammie Maharaj MD 04/19/[address] [address] Loyda Glaser, medical or surgical instrument maker Orders 04/12/2025 Refill [facility] [address] [place] [address] Sammie Maharaj MD Tinea unguium 04/03/2025 Telephone [facility] [address] [place], [place] [phone] Sammie Maharaj MD Mammo order 04/03/2025 Orders Only [facility] [address] [place], [place] [phone] Sammie Maharaj MD Screening mammogram for breast cancer (Primary Dx) 04/02/2025 Telephone [facility] [address] [place], [place] [phone] Sammie Maharaj MD Paperwork/Forms; Appointment Request from Last 3 Months Immunizations Immunization Administration Dates Next Due DTaP, 5 pertussis antigens 04/03/2010 Hep A, Adult 05/01/2009,02/29/2008 Hep B, adult 09/29/2023,07/28/2023,07/13/2019 Hib ([facility]) 06/11/2009 Influenza injectable quadriv alent IIV4 with preservative 10/12/2017 Influenza injectable quadriv alent preservative free 07/28/2023,06/25/2022,11/10/2020,07/13 Influenza, IIV3, injectable 07/04/2014, 9 Influenza, Split (incl. stevenson fied surface antigen) 06/14/2013 Influenza, seasonal, injecta ble, preservative free 07/03/2025,07/09/2024 Meningococcal MCV4P ACYW-135 06/11/2009 PPD Test 04/03/2010 [...] 20 07/03/2025 9:38 AM EDT Oxygen Saturation 100% 03/13/2025 3:29 PM EDT Inhaled Oxygen Concentration - - Weight 50 kg (110 lb 4 oz) 07/03/2025 9:38 AM ED T Height 147.3 cm (4' 10 ) 07/03/2025 9:38 AM EDT Body Mass Index 23.04 07/03/2025 9:38 AM EDT Plan of Treatment Upcoming Encounters Date Type Department Care Team (Late st Contact Info) Description 10/02/2025 9:30 AM EST Office Visit [facility] [address] [place] [address] Sammie Maharaj MD [address] [place] [address] Health Maintenance Due Date Last Done Comments HPV Vaccines (1 - Risk 3-dose SCDM series) 2008 Zoster Vaccines (2 of 2) 12/16/2023 10/21/2023 COVID-19 Vaccine (4 - Pfizer risk 2023- season) 2025 07/09/2024, 08/29/2023, 03/17/2021 Diabetes: Hemoglobin A1C 09/12/20252 025, 07/09/2024, 01/18/2024, Additional history exists Alcohol/Substance Use Screening 10/24/2025 10/24/2024 Depression Screening 10/24/2025 10/24/2024, 10/24/19 Diabetes: Foot Exam 10/24/2025 10/24/2024, 10/24/2024, 10/24/2024, Additional history exists Lipid Panel 10/24/2025 10/24/2024, 07/10, 12/07/2021, Additional history exists SDOH Screening 10/24/2025 10/24/2024 Diabetes: Urine Protein Screening 11/05/2025 11/05/2024, 04/26/2024, 07/28/2023, Additional history exists Family Planning (PISQ) 03/13/2026 03/13/2025 Cervical Cancer Screening 03/25/2026 HPV/Cotest 03/25/2026 Pap Smear 03/25/2026 03/25/2021 Disability Screening 07/03/2026 07/03/2025 Tobacco Screening 07/03/2026 07/03/2025 Eye Exam 02/25/2027 02/25/2025, 02/07, 02/25/2025, Additional [...] Hepatitis B Vaccines Completed 09/29/2023, 07/28/2023, 07/13/2019 Influenza Vaccine Completed 07/03/2025, , 07/28/2023, Additional history exists IPV Vaccines Aged Out No longer eligi [...] mental status type HEPATIC FUNCTION PANEL Routine 11:18 AM EDT Altered mental status, unspecified altered mental status type BASIC METABOLIC PANEL Routine 07/03/2025 11:18 AM EDT Altered mental status, unspecified altered mental status type AMMONIA (P) Routine 07/03/2025 11:18 AM EDT Altered mental status, unspecified altered mental status type HM MAMMOGRAPHY Routine 05/28/2025 2:48 PM EDT [...] EDT End stage liver disease (CMS/HCC) POCT GLYCOSYLATED HEMOGLOBIN (HGB A1C) Routine [...] to Health Maintenance Results * (ABNORMAL) CBC (07/03/2025 11:18 AM EDT) White Blood Count 3.9(L) 4.8 - 10.8 X10*3/uL [facility] Red Blood Count 3.75(L) 4.20 - 5.50 X10*6/uL [facility] Hemoglobin 11.4(L) 12.0 - 16.0 g/dl [facility] Hematocrit 33.6(L) 37.0 - 47.0 % [facility] Mean Corpuscular Volume 89.6 80.0 - 98.0 fL [facility] Mean Corpuscular Hemoglobin 30.4 27.0 - 33.0 pg [facility] Mean Corpuscular HGB Conc 33.9 31.0 - 35.0 g/dl [facility] Red Cell Distribution Width 14.1 11.0 - 16.0 % [facility] NRBC Pct Auto 0.0 0.0 - 0.2 /100WBC [facility] NRBC Abs Auto 0.000 0.0 - 0.012 X10*3/uL [facility] Blood Venous blood specimen / Unknown 07/03/2025 11:18 AM EDT 07/03/2025 11:18 AM EDT Sammie Maharaj MD LAB BLOOD ORDERABLES Final Result [facility] [address] [place] [phone] * (ABNORMAL) Ammonia, Plasma (07/03/2025 11:18 AM EDT) Ammonia (P) 81(H) 13 - 55 umol/L [facility] Blood Venous blood specimen / Unknown 07/03/2025 11:18 AM EDT 07/03/2025 11:18 AM EDT Sammie Maharaj MD LAB BLOOD ORDERABLES Final Result Performing Organization Address [facility]/ZIP Co de Phone Number [facility] [address] [place] [phone] * (ABNORMAL) Hepatic Function Panel (07/03/2025 11:18 AM EDT) Only the most recent of2 resultswithin the time period is included. Bilirubin, Total 9.4(H) 0.0 - 1.0 mg/dL [facility] Comment:Mild Icterus. Bilirubin, Direct 7.2(H) 0.0 - 0.5 mg/dL [facility] Comment:Mild Icterus. Aspartate Amino Transferase 108(H) 5 - 31 U/L [facility] Alanine Aminotransferase 72(H) 0 - 31 U/L [facility] Total Protein 6.1(L) 6.5 - 8.0 g/dL [facility] Albumin Level 3.1(L) 3.5 - 5.0 g/dL [facility] Alkaline Phosphatase 849(H) 39 - 117 U/L [facility] Blood Venous blood specimen / Unknown 07/03/2025 11:18 AM EDT 07/03/2025 11:18 AM EDT Sammie Maharaj MD LAB BLOOD ORDERABLES Final Result Performing Organization Address [facility]/ZIP Co de Phone Number [facility] [address] [place] [phone] * (ABNORMAL) Basic Metabolic Panel (07/03/2025 11:18 AM EDT) Sodium 145 135 - 145 mmol/L [facility] Potassium 3.4 3.3 - 5.1 mmol/L [facility] Chloride 115(H) 96 - 108 mmol/L [facility] Carbon Dioxide 22 22 - 29 mmol/L [facility] Anion Gap 11(L) 12 - 20 [facility] Urea Nitrogen (BUN) 16 9 - 16 mg/dL [facility] Creatinine, Serum 0.52 0.5 - 1.4 mg/dL [facility] Comment:Mild Icterus.Interpr et result with caution. Estimated Glomerular Filt Rate >60 [facility] Comment:Chronic Kidney Disea se: Estimated GFR < 60 mL/min/1.84u2Ibjutj Kidney Disease: Estimated GFR < 15 mL/min/1.73m2 Glucose 164(H) 60 - 115 mg/dL [facility] Calcium 8.6 8.4 - 10.2 mg/dL [facility] Blood Venous blood specimen / Unknown 07/03/2025 11:18 AM EDT 07/03/2025 11:18 AM EDT Sammie Maharaj MD LAB BLOOD ORDERABLES Final Result [facility] [address] [place] [address] [phone] * Mammography (05/28/2025 2:48 PM EDT) Mammogram BIRADS 1 Normal, Abnormal, BIRADS 1 , BIRADS 2 Anatomical Region Laterality Modality Other Historical Provider HEALTH MAINTENANCE Final Result * BI Mammogram Screening Tomosynthesis Bilateral (05/23/2025 11:45 AM EDT) Anatomical Region Laterality Modality Breast Bilateral Mammography 05/23/2025 11:4 5 AM EDT Narrative 05/28/2025 12:18 PM EDT [facility] [address] [place] [address] Mammography Report Signed Patient: Aubrie Brewer MR#: [id number] : 1980 Acct:[id number] Age/Sex: 45 / F ADM Date: 05/23/25 Loc: HO.MAMMO Attending Dr: Sammie Maharaj MD Ordering Physician: Sammie Maharaj MD Results: 1N egative Date of Service: 05/23/25 Follow Up: 1 Year From Orig inal Mammogram Procedure(s): MM tomosynthesis screening BI Accession Number(s): [id number] cc: Sammie Maharaj MD EXAMINATION: MM SCREENING [...] 05/28/25 1215 DD/ 1145 TD/TT: 05/23/25 1210 Hold Worker: Procedure Note Donotuseinterpreter, Image - 05/28/2025 [facility] [address] [place] [address] Mammography Report Signed Patient: Aubrie BrewerMR#: [id number] : 1980Acct:[id number] Age/Sex: 45 / FADM Date: 05/23/25 Loc: HO.MAMMO Attending Dr: Sammie Maharaj MD Ordering Physician: Sammie Maharaj MDResults: 1N egative Date of Service: 05/23/25Follow Up: 1 Year From Orig inal Mammogram Procedure(s): MM tomosynthesis screening BI Accession Number(s): [id number] cc: Sammie Maharaj MD EXAMINATION: MM SCREENING [...] 05/28/25 1215 DD/ 1145 TD/TT: 05/23/25 1210 Hold Worker: Sammie Maharaj MD IMG BI PROCEDURES Final Re sult * T-SPOT??.TB (04/19/2025 9:59 AM EDT) T Spot TB Negative Negative [facility] Comment:A negative test resu lt [...] as aquantitative test. TS PANEL A 0 [facility] TS PANEL B 2 [facility] Negative Control Passed [facility] Positive Control Passed [facility] Comment:For additional infor clifford, please refer tohttp://education.Skycheckin/faq/XGY483(This link is being provided for informational/educational purposes only.)THIS TEST WAS PERFORMED AT:[employer] [id number] [place] [address]AFEHMCZSHASHA FRANZ MD,PHD 04/19/2025 9:59 AM EDT 04/19/2025 11:19 AM EDT Sammie Maharaj MD LAB BLOOD ORDERABLES Final Result [facility] [address] [place] [phone] * Prothrombin Time-INR (04/19/2025 9:59 AM EDT) Prothrombin Time 12.3 10.9 - 12.4 SEC [facility] INTERNATIONAL NORM RATIO 1.1 0.9 - 1.1 [facility] Comment:INTERNATIONAL NORMAL IZED RATIO (INR) [...] Maharaj MD LAB BLOOD ORDERABLES Final Result [facility] [address] [place] [phone] * (ABNORMAL) Comprehensive Metabolic Panel (04/19/2025 9:59 AM EDT) Sodium 138 135 - 145 mmol/L [facility] Potassium 3.3 3.3 - 5.1 mmol/L [facility] Chloride 111(H) 96 - 108 mmol/L [facility] Carbon Dioxide 20(L) 22 - 29 mmol/L [facility] Anion Gap 10(L) 12 - 20 [facility] Urea Nitrogen (BUN) 14 9 - 16 mg/dL [facility] Creatinine, Serum 0.57 0.5 - 1.4 mg/dL [facility] Comment:Mild Icterus.Interpr et result with caution. Estimated Glomerular Filt Rate >60 [facility] Comment:Chronic Kidney Disea se: Estimated GFR < 60 mL/min/1.10e0Ufbtjd Kidney Disease: Estimated GFR < 15 mL/min/1.73m2 Glucose 188(H) 60 - 115 mg/dL [facility] Calcium 8.9 8.4 - 10.2 mg/dL [facility] Bilirubin, Total 9.3(H) 0.0 - 1.0 mg/dL [facility] Comment:Mild Icterus. Aspartate Amino Transferase 140(H) 5 - 31 U/L [facility] Alanine Aminotransferase 117(H) 0 - 31 U/L [facility] Total Protein 6.4(L) 6.5 - 8.0 g/dL [facility] Albumin Level 3.3(L) 3.5 - 5.0 g/dL [facility] Alkaline Phosphatase 1,039(H) 39 - 117 U/L [facility] Blood Venous blood specimen / Unknown 04/19/2025 9:59 AM EDT 04/19/2025 11:17 AM EDT us Sammie Maharaj MD LAB BLOOD ORDERABLES Final Result Performing Organization Address City/[facility]/ZIP Co de Phone Number [facility] [address] [place] [phone] * POCT glycosylated hemoglobin (Hgb A1c) (03/13/2025 3:44 PM EDT) Hemoglobin A1C 4.4 4.0 - 6.0 % QC Media Lot # [id number] Lot# Expiration Date Blood Capillary blood specimen / Unknown 03/13/2025 3:44 PM EDT us Sammie Maharaj MD POINT OF CARE TEST ENTER/E DIT ORDERABLES Final Result * Albumin, Random Urine W/Creatinine (11/05/2024 10:20 AM EST) Creatinine, Urine 59.34 mg/dL [facility] Microalbumin Urine <5.0 mg/L [facility] Microalbum Creatinine Ratio Ur TNP <30 ug/mg cr [facility] Comment:Unable to calculate albumin/creatinine ratio due to lowmicroalbumin or creatinine result. Urine 11/05/2024 10:2 0 AM EST 11/05/2024 11:21 AM EST us Sammie Maharaj MD LAB URINE ORDERABLES Final Result Performing Organization Address [facility]/ZIP Co de Phone Number [facility] [address] [place] [address] [phone] * (ABNORMAL) Lipid Panel, Standard (10/24/2024 9:59 AM EST) Triglycerides 91 <150 mg/dL [facility] Comment:Mild Icterus.Interpr et result with caution.Desirable Triglyceride: less than 150 mg/dLBorderline High Triglyceride 150-199 mg/dLHigh Triglyceride: 200-499 mg/dLVery High Triglyceride: greater than or equal to 5OO mg/dL Cholesterol 132 <200 mg/dL [facility] Comment:Mild Icterus.Interpr et result with caution.Desirable Cholesterol: less than 200 mg/dLBorderline High Cholesterol: 200-239 mg/dLHigh Cholesterol: greater than 239 mg/dL LDL Cholesterol Calculated 92 <100 mg/dL [facility] Comment:Desirable LDL: less than 100 mg/dLNear Optimal/Above Optimal LDL: 110- 129 mg/dLBorderline High LDL: 130-159 mg/dLHigh LDL: 160-189 mg/dLVery High LDL: greater than or equal to 190 mg/dL HDL Cholesterol 22(L) >40 mg/dL [facility] Comment:Desirable HDL: great er than 40 mg/dL Note: This HDL assay may give artificially low results in patients with liver disease. Blood Venous blood specimen / Unknown 10/24/2024 9:59 AM EST 10/24/2024 11:05 AM EST Sammie Maharaj MD LAB BLOOD ORDERABLES Final Result Performing Organization Address [facility]/ZIP Co de Phone Number [facility] [address] [place] [phone] * Hepatitis C Ab (07/28/2023 10:55 AM EDT) Hepatitis C Antibody Nonreactive Nonreactive [facility] Comment:Antibodies to HCV no t detected; does not exclude early acuteHCV infection. Blood 07/28/2023 10:5 5 AM EDT 07/28/2023 1:11 PM EDT Sammie Maharaj MD LAB BLOOD ORDERABLES Final Result Performing Organization Address [facility]/ZIP Co de Phone Number [facility] [address] [place] [phone] * HIV Ab/Ag (JAZ REYES) (07/28/2023 10:55 AM EDT) HIV AB/AG Nonreactive Nonreactive [facility] Comment:HIV-1 p24 Ag and/or HIV-1/HIV-2 Ab not detected.A test result that is nonreactive does not exclude thepossibility of exposure to or infection with HIV-1 and/orHIV-2. Nonreactive results in this assay for individualswith prior exposure to HIV-1 and/or HIV-2 may be due toantigen and antibody levels that are below the limit ofdetection of this assay.The [employer] HIV Ag/Ab Combo assay result andsupplemental assay results should be interpreted inconjunction with the patient's clinical presentation,history and other laboratory results. If the results areinconsistent with clinical evidence, additional testing issuggested to confirm the result. 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 Advance Directives and Living Will 07/09/2024 Health Care Proxy 07/09/24 Care Teams Hardware Installation Coordinator Relationship Specialty Start Date End Date [place], MD Sammie [address] [place] [address] PCP - General Family Medicine 10/10/18 Loyda Glaser RN [address] [place] [phone] Blasting Entry Specialist Family Medicine 10/31/23 Yasmin Ho MD [address] [place] [phone] Gastroenterology 08/29/24 Manuel Carpenter PA [facility] [address] [facility] [address] Neurology 08/29/24 Paola Tolentino NP [address] [address] Endocrinology 10/24/24 [facility] Psychology 12/19/24
--- OUTSIDE RECORDS SUMMARY | 2025-07-03 12:43 | XMS_ITS | Encounter Summary ---
Author Organization [employer] Address [address] [place] [address] Care Team Providers Care Quality Improvement Analyst Name Role Phone Sammie Maharaj MD Primary Care Provider [phone] Loyda Glaser RN Unavailable [phone] Yasmin Ho MD Unavailable [phone] Reason for Visit * Reason Comments Med Refill Encounter Details Date Type Department Care Team (Late st Contact Info) Description 10/25/2023 Refill [facility] [address] [place], [place] [phone] Sammie Maharaj MD [address] [place], [place] [phone] Microcytic anemia Social History Tobacco Use Types [...] Description 10/02/2025 9:30 AM EST Office Visit [facility] [address] [place] [phone] Sammie Maharaj MD [address] [place] [phone] documented as of this encounter Visit Diagnoses Diagnosis Microcytic anemia Unspecified iron deficiency anemia documented in this encounter Additional Health Concerns Assessment Noted Time PHQ-9 Depression Total Score: 0 07/28/20 23 9:42 AM EDT documented as of this encounter Care Teams Quality Improvement Analyst Relationship Specialty Start Date End Date Sammie Maharaj MD [address] [place] [address] [phone] PCP - General Family Medicine 10/10/18 Loyda Glaser, ERVIN [address] [place] [address] [phone] Freelance Director Family Medicine 10/31/23 Yasmin Ho MD [address] [place] [address] [phone] Gastroenterology 08/29/24 Manuel Carpenter PA [address] [address] Neurology 08/29/24 Paola Tolentino, CLOTH MERCERIZER BACK TENDER [address] [address] Endocrinology 10/24/[address] [facility] Psychology Psychology 12/19/24 documented as of this encounter
--- OUTSIDE RECORDS SUMMARY | 2025-07-03 12:43 | XMS_ITS | Encounter Summary ---
Author Organization [employer] Address [address] [place] [address] Care Team Providers Care Boat Master Name Role Phone Sammie Maharaj MD Primary Care Provider [phone] Loyda Glaser RN Unavailable [phone] Yasmin Ho MD Unavailable [phone] Reason for Visit * Reason Comments Med Refill Encounter Details Date Type Department Care Team (Late st Contact Info) Description 03/13/2025 Refill [facility] [address] [place], [place] [phone] Sammie Maharaj MD [address] [place], [place] [phone] Tinea unguium Social History Tobacco Use Types [...] 10/02/2025 9:30 AM EST Office Visit [facility] [address] [place] [phone] Sammie Maharaj MD [address] [place] [phone] documented as of this encounter Visit Diagnoses Diagnosis Tinea unguium Dermatophytosis of nail documented in this encounter Additional Health Concerns Assessment Noted Time PHQ-9 Depression Total Score: 0 10/24/19 25 9:33 AM EST documented as of this encounter Care Teams Boat Master Relationship Specialty Start Date End Date Sammie Maharaj MD [address] [place] [phone] PCP - General Family Medicine 10/10/18 Loyda Glaser RN [address] [place] [phone] Composite Bond Technician Family Medicine 10/31/23 Yasmin Ho MD [address] [place] [phone] Gastroenterology 08/29/24 Manuel Carpenter PA U [address] [address] Neurology 08/29/24 Paola Tolentino NP [address] [address] Endocrinology 10/24/24 [facility] Psychology Psychology 12/19/24 documented as of this encounter
--- OUTSIDE RECORDS SUMMARY | 2025-07-03 12:43 | XMS_ITS | Encounter Summary ---
Author Organization [employer] Address [address] [place] [address] Care Team Providers Care Gamemaster Name Role Phone Sammie Maharaj MD Primary Care Provider [phone] Loyda Glaser RN Unavailable [phone] Yasmin Ho MD Unavailable [phone] Reason for Visit * Reason Comments Med Refill Encounter Details Date Type Department Care Team (Late st Contact Info) Description 10/24/2024 Refill [facility] [address] [place], [place] [phone] Sammie Maharaj MD [address] [place], [place] [phone] Microcytic anemia Social History Tobacco Use Types [...] Author Not at all 10/24/2024 9:33 AM EST Jorge Alberto, Farzaneh au [place] * Moving or speaking [...] Author Not at all 10/24/2024 9:33 AM EST Jorge Alberto, Farzaneh au [place] * Patient Health Questionnaire-9 Score Answer Date of Assessment Author 0 10/24/2024 9:33 AM EST Jorge Alberto, Farzaneh au [place] documented as of this encounter Plan of Treatment Upcoming Encounters Date Type Department Care Team (Late st Contact Info) Description 10/02/2025 9:30 AM EST Office Visit [facility] [address] [place] [phone] Sammie Maharaj MD [address] [place] [address] documented as of this encounter Visit Diagnoses Diagnosis Microcytic anemia Unspecified iron deficiency anemia documented in this encounter Additional Health Concerns Assessment Noted Time PHQ-9 Depression Total Score: 0 10/24/19 25 9:33 AM EST documented as of this encounter Care Teams Gamemaster Relationship Specialty Start Date End Date Sammie Maharaj MD [address] [place] [phone] PCP - General Family Medicine 10/10/18 Loyda Glaser, ERVIN [address] [place] [phone] Building Economist Family Medicine 10/31/23 Yasmin Ho MD [address] [place] [phone] Gastroenterology 08/29/24 Manuel Carpenter PA [address] [address] Neurology 08/29/24 Paola Tolentino, DOOR ATTENDANT [address] [phone] Endocrinology 10/24/24 [facility] Psychology Psychology 12/19/24 documented as of this encounter
--- OUTSIDE RECORDS SUMMARY | 2025-07-03 12:43 | XMS_ITS | Encounter Summary ---
Demographics Address [address] [facility] [address] [place] [address] Mobile Phone Home Phone Preferred Language Gabonese; Castilian Marital Status Single Taoism Affiliation Unknown Race Unknown Ethnic Group Unknown Author Organization [facility] Address [address] [place] [address] Support Name Relationship Address Phone Oroin Rubio Daughter [address] [facility] [address] [place] [address] Care Team Providers Care Medical Accounts Receivable Specialist Name Role Phone Sammie Maharaj Sujit Primary Care Provider [phone]- [phone] Encounter Details Date Type Department Care Team (Late st Contact Info) Description 07/13/2017 Transplant Conversio n Encounter [facility] Health Information Management [address] [place] [address] Provider, [facility] Social History Tobacco Use Types [...] Description 07/17/2025 8:00 AM EDT Office Visit [facility] Building Diabetes Clinic [address] [place] [address] Tester/Lift Trucker: Paola Vance NP [address] [place] [address] 08/27/2025 9:00 AM EST Follow[facility] Liver Transplant Services [address] [place] [address] Yasmin Ho MD [address] [place] [address] 09/23/2025 8:00 AM EST Office Visit [facility] Diabetes [address] [address] Tester/Lift Trucker: Rocio Walden NP [address] [place] [address] 12/17/2025 9:15 AM EDT Office Visit [facility] Dermatology Clinic 4th Floor [address] [facility], [place] [address] Tester/Lift Trucker: Isabella Tomlin PA [address] [place] [address] 03/25/2026 9:30 AM EDT Office Visit [facility] Diabetes Clinic [address] [place] [address] Tester/Lift Trucker: Natasha Rubalcava MD [address] [place] [address] documented as of this encounter Visit Diagnoses Not on filedocumented in this encounter Care Teams Medical Accounts Receivable Specialist Relationship Specialty Start Date End Date Nicko, Sammie Beckett [address] [place] [address] PCP - General Family Medicine 05/15/18 documented as of this encounter
--- OUTSIDE RECORDS SUMMARY | 2025-07-03 12:43 | XMS_ITS | Encounter Summary ---
Author Organization [employer] Address [address] [facility] [address] 7t [place] [address] Care Team Providers Care Overhauler Helper Name Role Phone Sammie Maharaj MD Primary Care Provider [phone]- [phone] Loyda Glaser RN Unavailable [phone] Yasmin Ho MD Unavailable [phone] Reason for Visit * Reason Comments Med Refill Encounter Details Date Type Department Care Team (Late st Contact Info) Description 06/02/2025 Refill [facility] WALK-IN CENTER [address] [place], [place] [phone] Sammie Maharaj MD [address] [place], [place] [phone] Tinea unguium Social History Tobacco Use Types [...] Description 10/02/2025 9:30 AM EST Office Visit [facility] MEDICINE [address] [place] [address] Sammie Maharaj MD [address] [place] [address] documented as of this encounter Visit Diagnoses Diagnosis Tinea unguium Dermatophytosis of nail documented in this encounter Additional Health Concerns Assessment Noted Time PHQ-9 Depression Total Score: 0 10/24/19 25 9:33 AM EST documented as of this encounter Care Teams Overhauler Helper Relationship Specialty Start Date End Date Sammie Maharaj MD [address] [place] [address] PCP - General Family Medicine 10/10/18 Loyda Glaser RN [address] [place] [address] Mammography Supervisor Family Medicine 10/31/23 Yasmin Ho MD [address] [place] [address] Gastroenterology 08/29/24 Manuel Carpenter PA U [address] [address] Neurology 08/29/24 Paola Tolentino NP [address] [address] Endocrinology 10/24/24 [facility] Psychology Psychology 12/19/24 documented as of this encounter
--- OUTSIDE RECORDS SUMMARY | 2025-07-03 12:43 | XMS_ITS | Encounter Summary ---
Demographics Address [address] [facility] [address] [place] [address] Mobile Phone Home Phone Preferred Language Swiss; Castilian Marital Status Single Orthodoxy Affiliation Unknown Race Unknown Ethnic Group Unknown Author Organization [facility] Address [address] [place] [address] Support Name Relationship Address Phone Orion Rubio Daughter [address] [facility] [address] [place] [address] Care Team Providers Care Substation Operator Name Role Phone Sammie Maharaj Primary Care Provider [phone] Encounter Details Date Type Department Care Team (Late st Contact Info) Description 12/21/2024 Orders Only [facility] Interventional Radiology [address] [place] [address] Mateusz Wilkinson DO [address] [place] [address] Social History Tobacco Use Types Packs/Day Years [...] Description 07/17/2025 8:00 AM EDT Office Visit [facility] Building Diabetes Clinic [address] [place] [address] Power Crane Operator: Paola Vance NP [address] [facility] [place] [address] 08/27/2025 9:00 AM EST Follow[facility] Liver Transplant Services [address] [place] [address] Yasmin Ho MD [address] [place] [address] 09/23/2025 8:00 AM EST Office Visit [facility] Diabetes Clinic [address] [place] [address] Power Crane Operator: Rocio Walden NP [address] [place] [address] 12/17/2025 9:15 AM EDT Office Visit [facility] Dermatology Clinic 4th Floor [address] [place] [address], [place] [address] Power Crane Operator: Isabella Tomlin PA [address] [place] [address] 03/25/2026 9:30 AM EDT Office Visit [facility] Diabetes Clinic [address] [place] [address] Power Crane Operator: Natasha Rubalcava MD [address] [place] [address] documented as of this encounter Visit Diagnoses Not on filedocumented in this encounter Care Teams Substation Operator Relationship Specialty Start Date End Date Sammie Maharaj [address] [place] [address] PCP - General Family Medicine 05/15/18 documented as of this encounter
--- OUTSIDE RECORDS SUMMARY | 2025-07-03 12:43 | XMS_ITS | Encounter Summary ---
Author Organization [employer] Address [address] [facility] [address] 7t [place] [address] Care Team Providers Care Acting Professor Name Role Phone Sammie Maharaj MD Primary Care Provider [phone]- [phone] Loyda Glaser RN Unavailable [phone] Yasmin Ho MD Unavailable [phone] Encounter Details Date Type Department Care Team (Late st Contact Info) Description 05/28/2025 Abstract [facility] MEDICINE [address] [place] [address] Laya Azul [place] Social History Tobacco Use [...] t he electric, gas, oil or water Friendfer threatened to shut off services in your [...] Description 10/02/2025 9:30 AM EST Office Visit [facility] MEDICINE [address] [place] [address] [phone] Sammie Maharaj MD [address] [place] [address] [phone] documented as of this encounter Procedures Procedure Name Priority Date/Time Associated Diagnosis Comments MAMMOGRAPHY Routine 05/28/2025 2:48 PM EDT documented in this encounter Results * Mammography (05/28/2025 2:48 PM EDT) HM Mammogram BIRADS 1 Normal, Abnormal, BIRADS 1 , BIRADS 2 Anatomical Region Laterality Modality Other Historical Provider HEALTH MAINTENANCE Final Result documented in this encounter Visit Diagnoses Not on filedocumented in this encounter Additional Health Concerns Assessment Noted Time PHQ-9 Depression Total Score: 0 10/24/19 25 9:33 AM EST documented as of this encounter Care Teams Acting Professor Relationship Specialty Start Date End Date Sammie Maharaj MD [address] [place] [address] [phone] PCP - General Family Medicine 10/10/18 Loyda Glaser RN [address] [place] [address] Package Worker Family Medicine 10/31/23 Yasmin Ho MD [address] [place] [address] Gastroenterology 08/29/24 Manuel Carpenter PA [address] [address] Neurology 08/29/24 Paola Tolentino NP [address] [address] Endocrinology 10/24/24 [facility] Psychology Psychology 12/19/24 documented as of this encounter
--- OUTSIDE RECORDS SUMMARY | 2025-07-03 12:43 | XMS_ITS | Encounter Summary ---
Author Organization [employer] Address [address] [facility] [address] 7t [place] [address] Care Team Providers Care Fruit Dryer Name Role Phone Sammie Maharaj MD Primary Care Provider [phone]- [phone] Loyda Glaser RN Unavailable [phone] Yasmin Ho MD Unavailable [phone] Reason for Visit * Reason Comments Med Refill Encounter Details Date Type Department Care Team (Late st Contact Info) Description 11/18/2023 Refill [facility] WALK-IN CENTER [address] [place] [address] Tara Carlisle, PRIMARY SUBSTANCE ABUSE COUNSELOR Tinea unguium Social History Tobacco Use Types [...] Description 10/02/2025 9:30 AM EST Office Visit [facility] MEDICINE [address] [place] [address] Sammie Maharaj MD [address] [place] [address] documented as of this encounter Visit Diagnoses Diagnosis Tinea unguium Dermatophytosis of nail documented in this encounter Additional Health Concerns Assessment Noted Time PHQ-9 Depression Total Score: 0 07/28/20 23 9:42 AM EDT documented as of this encounter Care Teams Fruit Dryer Relationship Specialty Start Date End Date Sammie Maharaj MD [address] [place] [address] PCP - General Family Medicine 10/10/18 Loyda Glaser RN [address] [place] [address] Digital Marketing Program Manager Family Medicine 10/31/23 Yasmin Ho MD [address] [place] [address] Gastroenterology 08/29/24 Manuel Carpenter PA [address] [address] Neurology 08/29/24 Paola Tolentino, CONCRETE LAYER [address] [address] [facility] 10/24/24 [facility] Psychology Psychology 12/19/24 documented as of this encounter
--- OUTSIDE RECORDS SUMMARY | 2025-07-03 12:43 | XMS_ITS | Encounter Summary ---
Author Organization [employer] Address [address] [facility] [address] 7t [place] [address] Care Team Providers Care Turbine Room Attendant Name Role Phone Sammie Maharaj MD Primary Care Provider [phone]- [phone] Loyda Glaser RN Unavailable [phone] Yasmin Ho MD Unavailable [phone] Encounter Details Date Type Department Care Team (Late st Contact Info) Description 02/19/2025 Orders Only [facility] WALK-IN CENTER [address] [place], [place] [phone] Enzo Manuel MD [address] [place], [place] [phone] Social History Tobacco Use Types Packs/Day Years [...] Description 10/02/2025 9:30 AM EST Office Visit [facility] MEDICINE [address] [place] [address] Sammie Maharaj MD [address] [place] [address] documented as of this encounter Visit Diagnoses Not on filedocumented in this encounter Additional Health Concerns Assessment Noted Time PHQ-9 Depression Total Score: 0 10/24/19 25 9:33 AM EST documented as of this encounter Care Teams Turbine Room Attendant Relationship Specialty Start Date End Date Sammie Maharaj MD [address] [place] [address] PCP - General Family Medicine 10/10/18 Loyda Glaser RN [address] [place] [address] Bronc Breaker Family Medicine 10/31/23 Yasmin Ho MD [address] [place] [address] Gastroenterology 08/29/24 Manuel Carpenter PA U [address] [address] Neurology 08/29/24 Paola Tolentino NP [address] [address] Endocrinology 10/24/24 [facility] Psychology Psychology 12/19/24 documented as of this encounter
--- OUTSIDE RECORDS SUMMARY | 2025-07-03 12:43 | XMS_ITS | Encounter Summary ---
Author Organization [employer] Address [address] [facility] [address] 7t [place] [address] Care Team Providers Care Certified Nurses' Aide Name Role Phone Sammie Maharaj MD Primary Care Provider [phone] Loyda Glaser RN Unavailable [phone] Yasmin Ho MD Unavailable [phone] Reason for Visit * Reason Onset Date Comments Appointment Request 10/20/2023 Encounter Details Date Type Department Care Team ([facility] st Contact Info) Description 10/20/2023 Telephone [facility] MEDICINE 230 [place], [place] [phone] Sammie Maharaj MD [address] [place], [place] [phone] Appointment Request Social History Tobacco Use Types [...] Description 10/02/2025 9:30 AM EST Office Visit [facility] MEDICINE [address] [place] [address] Sammie Maharaj MD [address] [place] [address] documented as of this encounter Visit Diagnoses Not on filedocumented in this encounter Additional Health Concerns Assessment Noted Time PHQ-9 Depression Total Score: 0 07/28/20 23 9:42 AM EDT documented as of this encounter Care Teams Certified Nurses' Aide Relationship Specialty Start Date End Date Sammie Maharaj MD [address] [place] [address] [phone] PCP - General Family Medicine 10/10/18 Loyda Glaser RN [address] [place] [address] Sky Line Yarder Family Medicine 10/31/23 Yasmin Ho MD [address] [place] [address] Gastroenterology 08/29/24 Manuel Carpenter PA [address] [address] Neurology 08/29/24 Paola Tolentino NP [address] [address] Endocrinology 10/24/24 [facility] Psychology Psychology 12/19/24 documented as of this encounter
--- OUTSIDE RECORDS SUMMARY | 2025-07-03 12:43 | XMS_ITS | Encounter Summary ---
Demographics Address [address] [facility] [address] [place] [address] Mobile Phone Home Phone Preferred Language Chinese; Castilian Marital Status Single Jainism Affiliation Unknown Race Unknown Ethnic Group Unknown Author Organization [facility] Address [address] [place] [address] Support Name Relationship Address Phone Orion Rubio Daughter [address] [facility] [address] [place] [address] Care Team Providers Care Orthopedic Nurse Practitioner Name Role Phone Sammie Maharaj Primary Care Provider [phone] Encounter Details Date Type Department Care Team (Late st Contact Info) Description 04/12/2025 Orders Only [facility] Interventional Radiology 55 [place] [address] Bonny Momin MD 55 [place] [address] Social History Tobacco Use Types Packs/Day Years [...] Description 07/17/2025 8:00 AM EDT Office Visit [facility] Building Diabetes Clinic 55 [place] [address] Direct Marketing Executive: Paola Vance NP [address] [facility] [place] [address] 08/27/2025 9:00 AM EST Follow-Up [facility] Liver Transplant Services [address] [place] [address] Yasmin Ho MD [address] [place] [address] 09/23/2025 8:00 AM EST Office Visit [facility] Diabetes Clinic [address] [place] [address] Direct Marketing Executive: Rocio Walden NP [address] [place] [address] 12/17/2025 9:15 AM EDT Office Visit [facility] Dermatology Clinic 4th Floor [address] [place] [address], [place] [address] Direct Marketing Executive: Isabella Tomlin PA [address] [place] [address] 03/25/2026 9:30 AM EDT Office Visit [facility] Diabetes Clinic [address] [place] [address] Direct Marketing Executive: Natasha Rubalcava MD [address] [place] [address] documented as of this encounter Goals Goal Patient Goal Type Associated Problems Recent Progress Patient-Stated? Author Autogenerat ed Goal Care Plan Autogenerated Problem No Tena Fofana documented as of this encounter Visit Diagnoses Not on filedocumented in this encounter Additional Health Concerns Active Problems Noted Date Diagnosed Date Autogenerated Problem 04/09/2025 documented as of this encounter Care Teams Orthopedic Nurse Practitioner Relationship Specialty Start Date End Date Sammie Maharaj [address] [place] [address] PCP - General Family Medicine 05/15/18 documented as of this encounter
--- OUTSIDE RECORDS SUMMARY | 2025-07-03 12:43 | XMS_ITS | Clinical Summary ---
Demographics Address [address] [place] [address] Mobile Phone Home Phone Preferred Language British; Castilian Marital Status Single Rastafari Affiliation Unknown Race Unknown Ethnic Group Unknown Author Organization [facility] Address [address] [place] [address] Support Name Relationship Address Phone Orion Rubio Daughter [address] [place] [address] Care Team Providers Care Keymodule Assembly Supervisor Name Role Phone SiasconsetKenneySammie J Primary Care Provider [phone] Allergies Active Allergy Reactions Criticality Noted Date Comments Latex Rash Medications Freestyle lancets 28 gauge 05/01/20 21 Active Freestyle Lite test strips CHECK BLOOD SUGAR 3 TIMES A DAY 04/07/20 21 Active Alcohol Prep Pads pads, medicated 05/01/20 21 Active ferrous gluconate (FERGON) 324 mg (37.5 mg iron) tablet tablet Take 324 mg by mouth daily with breakfast. Active FreeStyle Clinton Lite meter TEST BLOOD SUGAR THREE TIMES DAILY 10/14/19 24 Active TRUEplus Lancets lancet 33 gauge TEST BLOOD SUGAR THREE TIMES DAILY 10/14/19 24 Active ciclopirox (PENLAC) 8 % solution SMARTSIG:Top ical Every Night 09/26/20 23 Active cholecalciferol (VITAMIN D3) 1,250 mcg (50,000 unit) capsule TAKE 1 CAPSULE BY MOUTH ONE TIME PER WEEK 8 capsule 04/30/20 24 Active FreeStyle Charlotte 3 [place] misc Use to monitor blood sugars. E11.9 1 each 05/15/2024 9:09 AM EDT 04/26/20 24 Active ursodioL (ACTIGALL) 250 mg tablet TAKE 1 TABLET BY MOUTH THREE TIMES A DAY 90 tablet 11 08/23/20 24 Active lactulose 10 gram/15 mL solution Take 30 mL (20 g total) by mouth 5 times a day. 19649 mL 01/09/20 25 026 Active Lantus Solostar U-100 Insulin 100 unit/mL (3 mL) pen injection Inject 10 Units under the skin nightly. 15 mL 11 03/22/20 25 Active BD Sandy 2nd Gen Pen Needle 4 mm x 32 g Patient injects once daily; E11.9 100 each 3 03/22/20 25 Active FreeStyle Charlotte 3 Plus Sensor deviceIndicatio ns:Type 2 diabetes mellitus without complication, with long-term current use of insulin (HCC) Change sensor every 15 days. E11.65 2 each 11 05/08/2025 12:39 AM EDT 03/22/20 25 Active [...] 180 capsule 3 07/24/20 24 025 Discontinued Active Problems Problem Noted Date [...] from 18-14 by endo 04/2024 Seen by [facility] endocrinology 04/18/24 Hemoglobin A1c is falsely [...] approval for her to upgrade to the [employer] charlotte 3 CGM. BPPV (benign paroxysmal positional [...] Encounters Date Type Department Care Team Description 06/12/2025 Abstract [facility] Transplant Department [address] [place] [address] Yasmin Ho MD 06/07/2025 Telephone [facility] Transplant Department [address] [place] [address] Katy Boateng, ERVIN 06/07/2025 Orders Only [facility] Transplant Department [address] [place] [address] Katy Boateng RN 06/05/2025 10:52 AM EDT Anesthesia Event [facility] Endoscopy [address] [place] [address] Dominik Sadler MD 06/05/2025 10:20 AM EDT - 06/05/2025 10:45 AM EDT Surgery [facility] Endoscopy [address] [place] [address] Alejandro Quan MD UPPER ENDOSCOPY WITH FOREIGN BODY REMOVAL WITH POSSIBLE MODERATE SEDATION [79942 (CPT )] 06/05/2025 9:18 AM EDT - 06/05/2025 11:55 AM EDT Hospital Encounter [facility] Endoscopy [address] [place] [address] Alejandro Quan MD Discharge Disposition: Home or Self Care (01) 06/02/2025 Refill [facility] Building Neurology Clinic [address] [place] [address] Christa Figueroa MD Complex partial seizure (Primary Dx) 05/30/2025 Abstract [facility] Transplant Department [address] [place] [address] Yasmin Ho MD 05/27/2025 Telephone [facility] Transplant Department [address] [place] [address] Denae Johnson RN 05/24/2025 Refill [facility] Liver Transplant Services [address] [place] [address] Yasmin Ho MD 05/21/2025 Telephone [facility] Transplant Department [address] [place] [address] Denae Johnson RN 05/21/2025 Orders Only [facility] Transplant Department [address] [place] [address]28[address] Denae Johnson RN 05/21/2025 Results Follow-Up [facility] Liver Transplant Services [address] [place] [address] Katy Boateng RN 05/21/2025 Orders Only [facility] Transplant Department [address] [place] [address] Lola Anthony MD 05/21/2025 Abstract [facility] Transplant Department [address] [place] [address] Yasmin Ho MD 05/15/2025 Orders Only [facility] Transplant Department [address] [place] [address] Katy Boateng RN Cryptogenic cirrhosis (HCC) (Primary Dx) 05/14/2025 Abstract [facility] Transplant Department [address] [place] [address] Yasmin Ho MD 05/07/2025 Telephone [facility] Transplant Department [address] [place] [address] Katy Boateng RN 05/03/2025 Orders Only [facility] Transplant Department [address] [place] [address] Katy Boateng RN Cryptogenic cirrhosis (HCC) (Primary Dx); Liver disease 05/03/2025 Refill [facility] Liver Transplant Services [address] [place] [address] Yasmin Ho MD 05/02/2025 Prep for Case [facility] Endoscopy [address] [place] [address] Baltazar Quan MD 04/30/2025 Telephone [facility] Building Neurology Clinic [address] [place] [address] Telephone Intake, Staff PAC Appt Request - Established ([place]) 04/12/2025 Orders Only [facility] Interventional Radiology [address] [place] [address] Bonny Momin MD 04/12/2025 Refill [facility] Liver Transplant Services [address] [place] [address] Yasmin Ho MD 04/09/2025 9:00 AM EDT Follow-Up [facility] Liver Transplant Services [address] [place] [address] Yasmin Ho MD Cryptogenic cirrhosis (HCC) (Primary Dx) 04/09/2025 Results Follow-Up [facility] Liver Transplant Services [address] [place] [address] Denae Johnson RN 04/02/2025 Orders Only [facility] Transplant Department [address] [place] [address] Katy Boateng, ERVIN Cryptogenic cirrhosis (HCC) (Primary Dx) from Last 3 Months [...] Description 07/17/2025 8:00 AM EDT Office Visit [facility] Diabetes Clinic [address] [place] [address] Scalp Treatment Specialist: Paola Vance NP [address] [place] [address] 08/27/2025 9:00 AM EST Follow-Up [facility] Liver Transplant Services [address] [place] [address] Yasmin Ho MD [address] [place] [address] 09/23/2025 8:00 AM EST Office Visit [facility] [address] [place] [address] Scalp Treatment Specialist: Rocio Walden, SENIOR ENVIRONMENTAL TECHNICIAN [address] [place] [address] 12/17/2025 9:15 AM EDT Office Visit [facility] Dermatology Clinic 4th Floor [address] [facility], [place] [phone] Scalp Treatment Specialist: Isabella Tomlin PA [address] [place] [address] 03/25/2026 9:30 AM EDT Office Visit [facility] Building Diabetes Clinic [address] [place] [address] Scalp Treatment Specialist: Natasha Rubalcava MD [address] [place] [address] Health Maintenance Due Date Last Done Comments [...] Additional history exists Hemoglobin A1C 09/21/2025 03/22/2025, 06/0 01/2025, 11/14/2024, Additional history exists Basic Metabolic [...] [employer] Implanted Type Area Mixer Operator Helper Hot Metal Device Identifier Shelf Expiration Date Model / Serial / Lot Stent Advanix Pancreatic Pigtail 5fr X 8cm - [id number] Implanted:Qty: 1 on 03/29/2025 by Aidan Melara MD at [facility] Stent UCT Coatings [id number] 08/28/2025 [id number] / / [id number] Procedures * Due to [place] state law, this organization might not be sharing negative HIV tests. Procedure Name Priority Date/Time Associated Diagnosis Comments LIVER PRE EXTERNAL PANEL Routine 06/11/2025 8:26 AM EDT PA EGD FLEXIBLE FOREIGN BODY REMOVAL 06/05/2025 10:50 AM EDT Presence of pancreatic duct stent POCT GLUCOSE Routine 06/05/2025 10:18 AM EDT POCT HCG, URINE Routine 06/05/2025 9:59 AM EDT UPPER GI ENDOSCOPY 06/05/2025 LIVER PRE EXTERNAL PANEL Routine 05/28/2025 8:04 AM EDT LAB - SCANNED Routine 05/13/2025 12:27 PM EDT LIVER PRE EXTERNAL PANEL Routine 05/13/2025 7:51 AM EDT BILIRUBIN, DIRECT Routine 04/09/2025 8:5 3 AM EDT Cryptogenic cirrhosis (HCC) PROTIME-INR Routine 04/09/2025 8:53 AM EDT Cryptogenic cirrhosis (HCC) CBC AUTO DIFFERENTIAL Routine 04/09/2025 8:53 AM EDT Cryptogenic cirrhosis (HCC) COMPREHENSIVE METABOLIC PANEL Routine 04/09/2025 8:53 AM EDT Cryptogenic cirrhosis (HCC) CA 19-9 Routine 04/09/2025 8:53 AM EDT Cryptogenic cirrhosis (HCC) IGG 1, 2, 3, AND 4 Routine 04/09/2025 8: 53 AM EDT Cryptogenic cirrhosis (HCC) POCT GLYCOSYLATED HEMOGLOBIN (HGB A1C) Routine 03/22/2025 3:31 PM EDT MICROALBUMIN, RANDOM URINE WITH CREATININE Routine 04/26/2024 4:22 PM EDT Type 2 diabetes mellitus without complication, with long-term current use of insulin HEPATITIS C ANTIBODY W/REFLEX TO HCV RNA, QUANTITATIVE PCR Routine 09/20/2023 12:40 PM EST Encounter for pre-transplant evaluation for liver transplant from Last 3 Months or Most Recently Relevant to Health Maintenance Results * Due to [place] state law, this organization might not be sharing negative HIV tests. * LIVER PRE EXTERNAL PANEL (06/11/2025 8:26 AM EDT) Only the most recent of3 resultswithin the time period is included. Sodium 139 mmol/L [facility] Potassium 3.4 [facility] Chloride 115 [facility] Carbon Dioxide 17 [facility] Glucose 189 [facility] BUN 16 mg/dL [facility] Creatinine 0.46 mg/dL [facility] Calcium 8.2 mg/dL [facility] Total Protein 5.9 g/dL [facility] Albumin 3.1 g/dL [facility] Bilirubin, Total 7.2 mg/dL [facility] Alkaline Phosphatase 800 U/L [facility] AST 97 U/L [facility] ALT 64 U/L [facility] INR 1.10 [facility] 06/11/2025 8:26 AM EDT us Yasmin Ho MD LAB BLOOD ORDERABLES Final R esult Performing Organization Address City/[facility]/ZIP Co de Phone Number [facility] [address] [place] [address] * POCT Glucose, interfaced (06/05/2025 10:18 AM EDT) [facility] Glucose, POCT 99 70 - 99 mg/dL 06/05/2025 10:26 AM EDT [facility] Comment: The sales assistant displays has not determined the efficacy of this test in Critically ill patients. [facility] defines Critically ill patients for the [...] 8 AM EDT 06/05/2025 10:26 AM EDT us Alejandro Quan MD LAB POCT ORDERABLES - DEVIC E Final Result Performing Organization Address City/[facility]/ZIP Co de Phone Number [facility] [address] [place] [address], [place] * POCT HCG, Urine, non-interfaced (06/05/2025 9:59 AM EDT) Control band present? Yes Background Clear? Yes Preg Test, Ur Negative Negative Urine 06/05/2025 9:59 AM EDT us Alejandro Quan MD POINT OF CARE TEST ORDERABL ES Final Result * UPPER GI ENDOSCOPY (06/05/2025) Narrative Procedure Note Alejandro Quan MD - 06/05/2025 10:48 AM EDT [facility] Gastroenterology Patient Name: Aubrie Chery Procedure [...] pulse, and oxygen saturations were monitored continuously. [id number] was introduced through the mouth, andadvanced to [...] [facility] Impression: - Inlet patch, otherwise normal esophagus. [...] On: 06/05/2025 10:48 AM us Alejandro Quan MD PROVATION PROCEDURES Final Result * LAB - SCANNED (05/13/2025 12:27 PM EDT) us Unknown Provider MD LAB HISTORICAL RESULTS Final Result * (ABNORMAL) CBC Auto Differential (04/09/2025 8:53 AM EDT) WBC 5.1 3.8 - 10.8 10*3/uL 04/09/2025 9:23 AM EDT [facility] RBC 3.98 3.80 - 5.10 10*6/uL 04/09/2025 9:23 AM EDT [facility] Hemoglobin 12.4 11.7 - 15.5 g/dL 04/09/2025 9:23 AM EDT [facility] Hematocrit 37.2 35.0 - 45.0 % 04/09/2025 9:23 AM EDT [facility] MCV 93.5 80.0 - 100.0 fL 04/09/2025 9:23 AM EDT [facility] MCH 31.2 27.0 - 33.0 pg 04/09/2025 9:23 AM EDT [facility] MCHC 33.3 32.0 - 36.0 g/dL 04/09/2025 9:23 AM EDT [facility] RDW 13.5 11.0 - 15.0 % 04/09/2025 9:23 AM EDT [facility] Platelets 142 140 - 400 10*3/uL 04/09/2025 9:23 AM EDT [facility] MPV 12.7(H) 7.5 - 12.5 fL 04/09/2025 9:23 AM EDT [facility] Neutrophil % 71.9 % 04/09/2025 9:23 AM EDT [facility] Immature Grans % 0.4 0.0 - 0.9 % 04/09/2025 9:23 AM EDT [facility] Lymphocyte % 15.5 % 04/09/2025 9:23 AM EDT [facility] Monocyte % 7.9 % 04/09/2025 9:23 AM EDT [facility] Eosinophil % 3.7 % 04/09/2025 9:23 AM EDT [facility] Basophil % 0.6 % 04/09/2025 9:23 AM EDT [facility] Neutrophil # 3.66 1.50 - 7.80 10*3/uL 04/09/2025 9:23 AM EDT [facility] Immature Grans # <0.03 <=0.03 10*3/uL 04/09/2025 9:23 AM EDT [facility] Lymphocyte # 0.80(L) 0.85 - 3.90 10*3/uL 04/09/2025 9:23 AM EDT [facility] Monocyte # 0.40 0.20 - 0.95 10*3/uL 04/09/2025 9:23 AM EDT [facility] Eosinophil # 0.20 0.02 - 0.50 10*3/uL 04/09/2025 9:23 AM EDT [facility] Basophil # <0.03 0.00 - 0.20 10*3/uL 04/09/2025 9:23 AM EDT [facility] nRBC % 0.0 /100 WBCs 04/09/2025 9:23 AM EDT [facility] nRBC # <0.01 <0.01 10*3/uL 04/09/2025 9:23 AM EDT [facility] Blood Structure of peripheral vein / Unknown Venipuncture / Unknown 04/09/2025 8:53 AM EDT 04/09/2025 9:15 AM EDT us Yasmin Ho MD LAB BLOOD ORDERABLES Final R esult [facility] [employer] [facility] [address] [place] [address], * CA 19-9 (04/09/2025 8:53 AM EDT) CA 19-9 14 <34 U/mL 04/10/2025 8:35 AM EDT [employer] [facility] Comment: This test was performed using the Siemens chemiluminescent method. Values obtained from different assay methods cannot be used interchangeably. CA 19-9 levels, regardless of value, should not be interpreted as absolute evidence of the presence or absence of disease. Blood Structure of peripheral vein / Unknown Venipuncture / Unknown 04/09/2025 8:53 AM EDT 04/09/2025 9:14 AM EDT Sheryl BEASLEY - 04/10/2025 8:35 AM EDT [facility] Received Date:[id number] us Yasmin Ho MD LAB BLOOD ORDERABLES Final R esult Performing Organization Address City/[facility]/ZIP Co de Phone Number [facility] [address], [place] [address], [place] [phone] [employer] [facility] [address], [place] [address], [place] [phone] * (ABNORMAL) IgG 1, 2, 3, and 4 (04/09/2025 8:53 AM EDT) Immunoglobulin G Subclass 1 556 382 - 929 mg/dL 04/10/2025 1:53 PM EDT [employer] [facility] Immunoglobulin G Subclass 2 223(L) 241 - 700 mg/dL 04/10/2025 1:53 PM EDT [employer] [facility] Immunoglobulin G Subclass 3 40 22 - 178 mg/dL 04/10/2025 1:53 PM EDT [employer] [facility] Immunoglobulin G Subclass 4 21.6 4 - 86 mg/dL 04/10/2025 1:53 PM EDT [employer] [facility] Immunoglobulin G, Serum 908 600 - 1640 mg/dL 04/10/2025 1:53 PM EDT [employer] [facility] Blood Structure of peripheral vein / Unknown Venipuncture / Unknown 04/09/2025 8:53 AM EDT 04/09/2025 9:14 AM EDT Sheryl BEASLEY - 04/10/2025 1:53 PM EDT [facility] Received Date:[id number] us Yasmin Ho MD LAB BLOOD ORDERABLES Final R esult [facility] [address], [place] [address], [place] [phone] [employer] [facility] [address], [place] [address], [place] [phone] * Protime-INR (04/09/2025 8:53 AM EDT) PT 11.7 9.6 - 12.4 Seconds 04/09/2025 9:45 AM EDT [facility] [employer] [facility] INR 1.1 0.9 - 1.1 04/09/2025 9:45 AM EDT [facility] Comment:The optimal therapeu tic INR range for patients treated with Vitamin K antagonists (VKAS, e.g., Warfarin) is 2.0 to 3.5. Discuss the desired range with your doctor/care team. Blood Structure of peripheral vein / Unknown Venipuncture / Unknown 04/09/2025 8:53 AM EDT 04/09/2025 9:14 AM EDT Yasmin Ho MD LAB BLOOD ORDERABLES Final R esult Performing Organization Address City/[facility]/ZIP Co de Phone Number [facility] [employer] [facility] [address] [place] [address], [place] * (ABNORMAL) Bilirubin, Direct (04/09/2025 8:53 AM EDT) Bilirubin, Direct 5.3(H) <=0.4 mg/dL 04/09/2025 9:46 AM EDT [facility] [employer] [facility] Blood Structure of peripheral vein / Unknown Venipuncture / Unknown 04/09/2025 8:53 AM EDT 04/09/2025 9:15 AM EDT Yasmin Ho MD LAB BLOOD ORDERABLES Final R esult [facility] [employer] [facility] [address] [place] [address], [place] * (ABNORMAL) Comprehensive Metabolic Panel (04/09/2025 8:53 AM EDT) NA 141 135 - 145 mmol/L 04/09/2025 9:46 AM EDT [facility] [employer] [facility] K 3.1(L) 3.5 - 5.3 mmol/L 04/09/2025 9:46 AM EDT [employer] [facility] Cl 111(H) 98 - 107 mmol/L 04/09/2025 9:46 AM EDT [employer] [facility] CO2 18(L) 22 - 32 mmol/L 04/09/2025 9:46 AM EDT [facility] Anion Gap 12 5 - 15 04/09/2025 9:46 AM EDT [facility] Glucose 91 65 - 99 mg/dL 04/09/2025 9:46 AM EDT [facility] Creatinine 0.54 0.50 - 1.20 mg/dL 04/09/2025 9:46 AM EDT [employer] [facility] Calcium 9.0 8.6 - 10.5 mg/dL 04/09/2025 9:46 AM EDT [facility] Total Protein 6.4 6.0 - 8.0 g/dL 04/09/2025 9:46 AM EDT [facility] Albumin 3.3(L) 3.5 - 5.2 g/dL 04/09/2025 9:46 AM EDT [facility] Bilirubin, Total 7.1(H) 0.2 - 1.2 mg/dL 04/09/2025 9:46 AM EDT [facility] Alkaline Phosphatase 1,069(H) 35 - 129 U/L 04/09/2025 9:46 AM EDT [facility] AST 145(H) 10 - 40 U/L 04/09/2025 9:46 AM EDT [facility] ALT 113(H) 10 - 40 U/L 04/09/2025 9:46 AM EDT [facility] BUN 15 7 - 23 mg/dL 04/09/2025 9:46 AM EDT [facility] eGFR >90 >=60 mL/min/1 .73m2 04/09/2025 9:46 AM EDT [facility] Comment:The estimated glomer [...] - 4.2 g/dL 04/09/2025 9:46 AM EDT [facility] A/G Ratio 1.1(L) 1.5 - 3.0 04/09/2025 9:46 AM EDT [facility] Blood Structure of peripheral vein / Unknown Venipuncture / Unknown 04/09/2025 8:53 AM EDT 04/09/2025 9:15 AM EDT us Yasmin Ho MD LAB BLOOD ORDERABLES Final R esult [facility] [address] [place] [address], * POCT Glycosylated Hemoglobin (HGB A1C), interfaced (03/22/2025 3:31 PM EDT) Hemoglobin A1C, POCT 4.4 <=5.6 % 03/22/2025 3:52 PM EDT [facility] Comment: A1C Recommendation for Non- Adults with Diabetes: <7.0% ADA 2011 Standards of Medical Care in Diabetes Blood 03/22/2025 3:31 PM EDT 03/22/2025 3:52 PM EDT Natasha Kramer MD LAB POCT ORDERABLES - DEVICE Fin al Result Performing Organization Address City/[facility] Co de Phone Number [facility] [address] [place] [address], * Microalbumin, Random Urine with Creatinine (04/26/2024 4:22 PM EDT) Microalbumin, Urine <2.0 mg/dL 04/26/2024 5:20 PM EDT [facility] Creatinine, Urine 69 15 - 278 mg/dL 04/26/2024 5:20 PM EDT [facility] Microalb/Creat Ratio, Random Urine 04/26/2024 5:20 PM EDT [facility] Comment: < 1.0 mcg/mgCr Microalbumin Reference Range: Normal <30 mcg/mg Creatinine Microalbuminuria 30-300 mcg/mg Creatinine Clinical Albuminuria >300 mcg/mg Creatinine Reference: ADA Guideline. Diabetes Care. 2004;27 (suppl 1) Urine Voided urine specimen / Unknown Non-Blood Collection / Unknown 04/26/2024 4:22 PM EDT 04/26/2024 4:35 PM EDT Natasha Kramer MD LAB URINE ORDERABLES Final Resul t Performing Organization Address [facility] Co de Phone Number [facility] [address] [place] [address], [place] * Hepatitis C Antibody w/Reflex to PCR (09/20/2023 12:40 PM EST) Hepatitis C Antibody NON-REACT VIVEK NON-REACT VIVEK 09/21/2023 6:41 AM EST [employer] Comment: HCV antibody was non-reactive. There is no laboratory evidence of HCV infection. In most cases, no further action is required. However, if recent HCV exposure is suspected, a test for HCV RNA (test code 89839) is suggested. For additional information please refer to http://education.[employer]/faq/JBY38x2 (This link is being provided for informational/ educational purposes only.) Blood Structure of peripheral vein / Unknown Venipuncture / Unknown 09/20/2023 12:40 PM EST 09/20/2023 1:07 PM EST Narrative [facility] - 09/21/2023 6:41 AM EST [facility] Received Date: Yasmin Ho MD LAB BLOOD ORDERABLES Final R esult [facility] [address] [facility] 3rd Floor, [place] [address], [place] [phone] [facility] [employer] [facility] [address] [facility] 3rd Floor, [place] [address], from Last 3 Months or Most Recently Relevant to Health Maintenance Additional Health Concerns Active Problems Noted Date Diagnosed Date Autogenerated Problem 04/09/[address] [place] [address] [place] [address] REINALDO WEBER [id number] [facility] Advance Directives Documents on File Type Date Recorded Patient Wood Pole Treater Expl al Health Care Proxy 10/26/2023 12:55 PM 10-10 Advance Directive 01/22/2014 12:00 AM Adva nce Care Directives Advance Directive 04/03/2010 12:00 AM luba Sandhu edical Dec Making (Adv.Dir) * Presumed Full Code (Latest Code Status on File) Date Activated Date Inactivated Comments 05/15/2024 12:15 PM 05/16/2024 2:39 AM Care Teams [employer] Supervisor Relationship Specialty Start Date End Date Sammie Maharaj [address] [place] [id number] PCP - General Family Medicine 05/15/18
== END 2025-07-03 10:20 | disposition home or self-care (01) ==
LOC: HO.HHCL 10:19
PROVIDERS: Family Medicine; PCP Internal Medicine; Visit Provider Internal Medicine
DX: R41.82 Altered mental status, unspecified (principal)
CPT/HCPCS: 36415; 80048; 80076; 82140; 85027

== ENCOUNTER 2025-09-26 08:54 | Outpatient (REF) | payer OTHER, SELFPAY ==
[2025-09-26 09:17] LABS: MANUAL DIFF FLAG NO
[2025-09-26 09:43] LABS: Hematocrit 45.9 % (37.0-47.0); Hemoglobin 14.4 g/dl (12.0-16.0); Imm Gran Abs Auto 0.06 X10*3/uL (0.00-0.03); Imm Gran Pct Auto 0.7 % (0.0-0.4); Lymphocytes Absolute Auto 0.7 X10*3/uL (1.2-4.9); Mean Corpuscular HGB Conc 31.4 g/dl (31.0-35.0); Mean Corpuscular Hemoglobin 28.7 pg (27.0-33.0); Mean Corpuscular Volume 91.6 fL (80.0-98.0); NRBC Abs Auto 0.000 X10*3/uL (0.0-0.012); NRBC Pct Auto 0.0 /100WBC (0.0-0.2); Platelet Count 209 X10*3/uL (160-400); Red Blood Count 5.01 X10*6/uL (4.20-5.50); White Blood Count 8.3 X10*3/uL (4.8-10.8)
--- OUTSIDE RECORDS SUMMARY | 2025-09-26 09:43 | XMS_ITS | Encounter Summary ---
Author Organization [employer] Address [address] [place] [address] Care Team Providers Care Grain Broker Name Role Phone Sammie Maharaj MD Primary Care Provider [phone]- [phone] Loyda Glaser RN Unavailable [phone] Yasmin Ho MD Unavailable [phone] Encounter Details Date Type Department Care Team (Late st Contact Info) Description 02/19/2025 Orders Only [facility] [address] [place], [place] [phone] Enzo Manuel MD [address] [place], [place] [phone] Social History Tobacco Use Types Packs/Day Years [...] Care Team (Late st Contact Info) Description 10/09/2025 10:15 AM EST Office Visit [facility] [address] [place] [address] Miriam Shipman MD [address] [place] [address] 11/07/2025 9:15 AM EST Office Visit [address] [address] Sammie Maharaj MD [address] [place] [address] [phone] documented as of this encounter Visit Diagnoses Not on filedocumented in this encounter Additional Health Concerns Assessment Noted Time PHQ-9 Depression Total Score: 0 10/24/19 25 9:33 AM EST documented as of this encounter Care Teams Grain Broker Relationship Specialty Start Date End Date Sammie Maharaj MD [address] [place] [address] [phone] PCP - General Family Medicine 10/10/18 Loyda Glaser, ERVIN [address] [place] [address] Credit Collections Clerk Family Medicine 10/31/23 Yasmin Ho MD [address] [place] [address] Gastroenterology 08/29/24 Manuel Carpenter PA [address] [address] Neurology 08/29/24 Paola Tolentino NP [address] [address] Endocrinology 10/24/24 [facility] Psychology Psychology 12/19/24 documented as of this encounter
--- OUTSIDE RECORDS SUMMARY | 2025-09-26 09:43 | XMS_ITS | Encounter Summary ---
Author Organization [employer] Address [address] [place] [address] Care Team Providers Care Jet Mechanic Name Role Phone Sammie Maharaj MD Primary Care Provider [phone]- [phone] Loyda Glaser RN Unavailable [phone] Yasmin Ho MD Unavailable Reason for Visit * Reason Onset Date Comments Referral 12/01/2022 Encounter Details Date Type Department Care Team (Late st Contact Info) Description 12/01/[address] [facility] [address] [place] [address] Sammie Maharaj MD [address] [place], [place] [phone] Referral Social History Tobacco Use Types Packs/Day [...] [facility] Please contact pt at [phone] or Becca [phone] documented in this encounter Plan of Treatment Upcoming Encounters Date Type Department Care Team (Late st Contact Info) Description 10/09/2025 10:15 AM EST Office Visit [address] [address] Miriam Shipman MD [address] [place] [address] 11/07/2025 9:15 AM EST Office Visit [address] [address] Sammie Maharaj MD [address] [place] [address] documented as of this encounter Visit Diagnoses Not on filedocumented in this encounter Care Teams Jet Mechanic Relationship Specialty Start Date End Date Sammie Maharaj MD [address] [place] [address] PCP - General Family Medicine 10/10/18 Loyda Glaser, RN [address] [place] [address] Ore Charger Family Medicine 10/31/23 Yasmin Ho MD [address] [place] [address] Gastroenterology 08/29/24 Manuel Carpenter PA [address] [address] Neurology 08/29/24 Paola Tolentino, [employer] [address] [address] Endocrinology 10/24/24 [facility] Psychology 12/19/24 documented as of this encounter
--- OUTSIDE RECORDS SUMMARY | 2025-09-26 09:43 | XMS_ITS | Encounter Summary ---
Author Organization [employer] Address [address] [place] [address] Care Team Providers Care Wireworker Name Role Phone Sammie Maharaj MD Primary Care Provider [phone]- [phone] Loyda Glaser RN Unavailable [phone] Yasmin Ho MD Unavailable [phone] Reason for Visit * Reason Comments Med Refill Encounter Details Date Type Department Care Team (Late st Contact Info) Description 11/18/2023 Refill [facility] [address] [place] [address] Tara Carlisle, WWE WRESTLER Tinea unguium Social History Tobacco Use Types [...] Description 10/09/2025 10:15 AM EST Office Visit [address] [address] Miriam Shipman MD [address] [place] [address] 11/07/2025 9:15 AM EST Office Visit [address] [address] Sammie Maharaj MD [address] [place] [address] documented as of this encounter Visit Diagnoses Diagnosis Tinea unguium Dermatophytosis of nail documented in this encounter Additional Health Concerns Assessment Noted Time PHQ-9 Depression Total Score: 0 07/28/20 23 9:42 AM EDT documented as of this encounter Care Teams Wireworker Relationship Specialty Start Date End Date Sammie Maharaj MD [address] [place] [address] PCP - General Family Medicine 10/10/18 Loyda Glaser, ERVIN [address] [place] [address] Waiter/Waitress Tourist Class Family Medicine 10/31/23 Yasmin Ho MD [address] [place] [address] Gastroenterology 08/29/24 Manuel Carpenter PA [address] [address] Neurology 08/29/24 Paola Tolentino NP [address] [address] Endocrinology 10/24/24 [facility] Psychology Psychology 12/19/24 documented as of this encounter
--- OUTSIDE RECORDS SUMMARY | 2025-09-26 09:43 | XMS_ITS | Encounter Summary ---
Author Organization [employer] Address [address] [place] [address] Care Team Providers Care Amusement Ride Operator Name Role Phone Sammie Maharaj MD Primary Care Provider [phone]- [phone] Loyda Glaser RN Unavailable [phone] Yasmin Ho MD Unavailable [phone] Reason for Visit * Reason Comments Med Refill Encounter Details Date Type Department Care Team (Late st Contact Info) Description 11/13/2024 Refill [facility] [address] [place], [place] [phone] Sammie Maharaj MD [address] [place], [place] [phone] Tinea unguium Social History Tobacco Use Types [...] Description 10/09/2025 10:15 AM EST Office Visit [address] [address] Miriam Shipman MD [address] [place] [address] 11/07/2025 9:15 AM EST Office Visit [address] [address] Sammie Maharaj MD [address] [place] [address] [phone] documented as of this encounter Visit Diagnoses Diagnosis Tinea unguium Dermatophytosis of nail documented in this encounter Additional Health Concerns Assessment Noted Time PHQ-9 Depression Total Score: 0 10/24/19 25 9:33 AM EST documented as of this encounter Care Teams Amusement Ride Operator Relationship Specialty Start Date End Date Sammie Maharaj MD [address] [place] [address] PCP - General Family Medicine 10/10/18 Loyda Glaser, RN [address] [place] [address] [place] [address] Multifocal Button Generator Family Medicine 10/31/23 Yasmin Ho MD [address] [place] [address] Gastroenterology 08/29/24 Manuel Carpenter PA [facility] [address] [facility] [address] Neurology 08/29/24 Paola Tolentino NP [address] [address] Endocrinology 10/24/24 [facility] Psychology Psychology 12/19/24 documented as of this encounter
--- OUTSIDE RECORDS SUMMARY | 2025-09-26 09:43 | XMS_ITS | Clinical Summary ---
Author Organization [employer] Address [address] [place] [address] [address] [place] [address] Care Team Providers Care Poultry Hatchery Supervisor Name Role Phone Sammie Maharaj MD Primary Care Provider [phone] Loyda Glaser RN Unavailable [phone] Yasmin Ho MD Unavailable [phone] Allergies Active Allergy Reactions Criticality Noted Date Comments Acetaminophen 09/09/2014 Other reaction(s): Rash Latex Rash Low 06/29/2023 Medications Continuous Glucose Sensor (FreeStyle [place] 3 Plus Sensor) miscIndicatio ns:Type 2 diabetes mellitus with hyperglycemia , with long-term current use of insulin ([facility]) [facility] Active insulin glargine (Lantus) 100 UNIT/ML injectionIndi cations:Type 2 diabetes mellitus with hyperglycemia , with long-term current use of insulin ([facility]) Inject under the skin at bedtime. Injecting 14 units daily as directed by tractor drill operator Active ursodiol (Actigall) 250 MG tabletIndicat ions:End stage liver disease (CMS/HCC) (HCC) Take 250 mg by mouth [address] Marilee SOSA [facility] Active beta carotene (vitamin A) 3 MG (69485 UT) capsuleIndica tions:End stage liver disease (CMS/HCC) (HCC) Take 10,000 Units by mouth Once per day. Per SHEILA Perez at [facility] liver CLinic Active insulin pen needle (BD Pen Needle Sandy 2nd Gen) 32G x 4 mm miscIndicatio ns:End stage liver disease (CMS/HCC) (HCC) Inject under the skin if needed. Use as instructed Active zonisamide (Zonegran) 100 MG capsule Take 200 mg by mouth at bedtime. Active acyclovir (Zovirax) 800 MG tabletIndicat ions:Liver transplant recipient (CMS/HCC) (HCC) Take 800 mg by mouth 2 times daily. Active entecavir (Baraclude) 0.5 MG tabletIndicat ions:Liver transplant recipient (CMS/HCC) (HCC) Take 0.5 mg by mouth Once per day. Active mycophenolate mofetil (CellCept) 200 mg/mL suspensionInd ications:Live r transplant recipient (CMS/HCC) (HCC) Take 3.8 mL by mouth 2 times daily. Active predniSONE (Deltasone) 10 MG tabletIndicat ions:Liver transplant recipient (CMS/HCC) (HCC) Take 10 mg by mouth Once per day. Active tacrolimus (Prograf) 1 MG capsuleIndica tions:Liver transplant recipient (CMS/HCC) (HCC) Take 1 mg by mouth 2 times daily. Active sulfamethoxaz ole-trimethop rim (Bactrim) 400-80 MG tabletIndicat ions:Liver transplant recipient (CMS/HCC) (HCC) Take 1 tablet by mouth 3 (three) times a week. Active Diclofenac Sodium 1 % gel APPLY 1 INCH TOPICALLY IN THE MORNING AND AT BEDTIME NEEDED FOR PAIN 100 g 025 2024 Discontinued(M ed list cleanup (will not trigger notification to Pharmacy)) Active Problems Patient Care Coordination No te Formatting of this note migh t be different from the original. [facility] provider line [phone], called 09/29/23 Breanna Burleson [phone]. cell [phone] HEM MARKER services via [employer] Problem Noted Date Diagnosed Date Chronic hepatitis B without hepatic coma (CMS/HC C) 09/24/2025 Overview (09/24/2025): Post transplant Hep B viral load positive Telephone call received from Brisa, hospice bereavement coordinator at [facility] 09/24/25. They are aware of Hep B viral load result - donor was Hep B +. Few updates: - pt's transplant complicated by duodenal hematoma, pt has G/J tube currently - pt taking entecavir currently, may be changed in near future, they are following her closely - next Hep B viral load labs scheduled for next week - next regular labs scheduled for 09/26/25 - pt being discharged from rehab facility today. She is currently scheduled for HDF 10/09/25 (also has PCP appointment 10/02/25) H/O insertion of pancreatic stent 06/13/2025 Overview [...] if needed. I spoke with Liz at [facility] liver transplant clinic, explained the situation and ask them to run the pictures and case by high school academic coach in case this is not related to [...] Overview (03/13/2025): CT abd pelvis ordered by [facility] and dated [...] appear significantly changed from 2021, possibly reactive. [facility] not from 02/24/24 Telephone Encounter - Katy Boateng RN 10:24 AM LVM for patient using piece dye worker, Ari [id number], about results of MRI and scheduling of [...] AM EST): CT abd pelvis ordered by [facility] and dated [...] RN 10:24 AM LVM for patient using piece dye worker, [facility] [id number], about results of MRI and scheduling of [...] AM EDT): CT abd pelvis ordered by [facility] liver clinic and dated 01/28/24 [...] RN 10:24 AM LVM for patient using piece dye worker, [facility] [id number], about results of MRI and scheduling of [...] 11/14/2023 Overview (01/18/2024): -she has fired several retail sales representative in the past. I called [facility] provider line [phone], 09/29/23 and spoke to abdelrahman Hussein Burleson [phone]. He reported extensive hx of working it pt and she was on the waiting list for starvros. Her HEM MARKER will be Laxmi Mas her friend. -She has been approved for HEM MARKER hours but have not started yet as of 01/18/2024 Assessment & Plan (07/03/2025 12:00 PM EDT): -she has fired several retail sales representative in the past. I called [facility] provider line [phone], 09/29/23 and [facility] to [facility] [phone]. He reported extensive hx of working it pt and she was on the waiting list for starvros. Her HEM MARKER will be Laxmi Mas her friend. -She has been approved for HEM MARKER hours but have not started yet as of 01/18/2024 Assessment & Plan (01/18/2024 9:17 AM EDT): -she has fired several retail sales representative in the past. I called [facility] provider line [phone], 09/29/23 and spoke to [facility] [phone]. He reported extensive hx of working it pt and she was on the waiting list for starvros. Her HEM MARKER will be Laxmi Mas her friend. -She has been approved for HEM MARKER hours but have not started yet as of 01/18/2024 Pain in hand and fingers 09/29/2023 Overview (01/18/2024): -refer to occupational therapy 01/18/2024 Assessment & Plan (09/29/2023 11:55 AM EST): No etiology on exam. Pt high risk for dyupetryns. Recommend warm wraps and rest. Other specified health status 07/21/2023 Overview (07/03/2025): -next comprehensive annual evaluation due after 07/09/25 -[facility] -health care proxy paperwork filed 07/09/24 Assessment & Plan (07/03/2025 12:00 PM EDT): -next comprehensive annual evaluation due after 07/09/25 -[facility] -health care proxy paperwork filed 07/09/24 Assessment & Plan (03/13/2025 3:41 PM EDT): -next physical exam due after 07/09/25 -eye care facilitated by [facility] -dental home is [facility] -health care proxy paperwork filed 07/09/24 Assessment & Plan (12/19/2024 1:03 PM EDT): -next physical exam due after 07/09/25 -[facility] -health care proxy paperwork filed 07/09/24 Assessment & Plan (10/24/2024 9:48 AM EST): -next physical exam due after 07/09/25 -[facility] -health care proxy paperwork given 10/20/23. Filed 07/09/24 Assessment & Plan (07/09/2024 10:17 AM EDT): -next physical exam due after 07/09/25 -eye care facilitated by [facility] -dental home is [facility] -health care proxy paperwork given 10/20/23. Filed 07/09/24 Assessment & Plan (01/18/2024 9:16 AM EDT): -next physical exam due after 07/28/2024 -eye care facilitated by [facility] -dental home is none -health care proxy paperwork given 10/20/23 Assessment & Plan (10/20/2023 9:33 AM EST): -next physical exam due after 07/28/2024 -eye care facilitated by [facility] referral placed 09/29/23 -dental home is none -health care proxy paperwork given 10/20/23 Assessment & Plan (09/29/2023 11:46 AM EST): -next physical exam due after 07/28/2024 -eye care facilitated by [facility] referral placed 09/29/23 -dental home is none Assessment & Plan (07/28/2023 10:05 AM EDT): -next physical exam due after 07/28/2024 -eye care facilitated by [facility] -dental home is none Type 2 diabetes mellitus wit hout complication, with long-term current use of insulin 11/19/2021 Overview (08/28/2025): -Followed by [facility] Diabetes are [...] low dose of basal insulin for now. [facility] endo note 08/27/25 no basil insulin for now, regular insulin 5 units q 6 hours while inpatient Assessment & Plan (07/03/2025 12:00 PM EDT): -Followed by [facility] Endocinology Diabetes are controlled. -CGM training [...] Plan (03/13/2025 3:49 PM EDT): -Followed by [facility] Endocinology Diabetes are controlled. -CGM training [...] Plan (12/19/2024 1:03 PM EDT): -Followed by [facility] Endocinology Diabetes are controlled. -CGM training [...] approval for her to upgrade to the [employer] charlotte 3 CGM. Assessment & Plan (10/24/2024 [...] approval for her to upgrade to the [employer] charlotte 3 CGM. Assessment & Plan (07/09/2024 [...] approval for her to upgrade to the [employer] charlotte 3 CGM. Assessment & Plan (01/18/2024 [...] TIPS (transjugular intrahepatic portosystemi c shunt) 05/15/2018 Liver transplant recipient (CMS/HCC) 11/26/2016 Overview (09/20/2025): -s/p liver transplant with donor 08/18/[address] June at [facility] due to cryptogenic cirrhosis -complicated by intraluminal and intraneural duodenal hematoma requiring placement of GJ tube fro gastric decompression and feeds via GJ. 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 Etiology unclear. At times she has had a transient hepatitis B positive test, but that might have been passive after blood transfusion. Last HBV PCR January 2017 was negative. Then after transplant Hep B viral DNA 156 2.19 log 09/02/25. She is followed by [facility]. -s/p liver transplant with donor 08/18/25 at [facility]--given donor HBV PCR positive, continue entecavir 0.5mg daily continued for life -s/p HBIG post op, will need HBIG at one month post op -she will need HBcAB total, HBsAb and quant HBV DNA q1 month for 6 months post transplant then q 3 months for the remaintder of the first year post transplant. -continue acyclovir ppx 3 months post transplant 200 mg/5ml 20 ml per j tube BID until 11/18/24 -atovaquone for PJP prophylaxis per protocol -Bactrum 20-305 10 mg three times a week -mycophenolate mofetil 750 by j tube bid -discharged on doxy for 7 days and fluconazole for 14 days -prednisone 10 ml dauly Tacrolimus 1 cap daily -check HIV< HBV, HCV PCR 4-8 weeks post transplant -sent to ER 09/09/25 for work up of fevers, SO[facility] and [facility] , in her G tube had copious amounts of dark bilious fluid within the bag. She was admitted for work up and observation. Started on Vanco/Zosyn. CT obsomen interval decrease in size of duodenal hematoma, awaiting final read. Newly apparaent dilated , likely recanalized left internal mamary vcein tributaries vs left internal mammary lymph node She was readmitted on 09/08/2025 with fevers, shortness of breath, and tachycardia. Infectious workup revealed a WBC count of 14.4. Respiratory, Stool, blood, and urine cultures were all negative. CT chest was unremarkable. CT abdomen pelvis showed rim-enhancing fluid in cul-de-sac concerning for abscess concerning for abscess and interval decrease in the size of the duodenal hematoma. The patient was started on zosyn per transplant ID. She clinically improved and was discharged back to [place] on 09/10/2025 with plan for two week course of IV ertapenem. At visit 09/19/25 the patient reports feeling good. She continues to get cycled tube feeds overnight and is having sips of liquids. She needs to be scheduled for repeat fluoroscopy GI study. She is losing weight. She is urinating without difficulty. She is having loose stools but stool studies have been negative. She is up and walking and feeling stronger. Her incisional freya are bothering her. She otherwise denies any symptoms associated with her recent surgery, including nausea, vomiting, fevers, chills, constipation, or other constitutional symptoms. S/P Liver Transplant: The patient continues to recover from her recent liver transplant at [facility]. She will likely be discharged home on Tuesday09/23/2025. On physical examination her abdominal incisions continue to heal appropriately, small dehiscence at trifurcation packed with iodoform, no evidence of infection. Most of freya removed and steri strips applied. Her LFTs have been stable, they were not checked this week and will repeat labs in clinic. Her hemoglobin and hematocrit are stable. Her WBC count is within normal limits. She was advised to increase her activity level as tolerated but avoid heavy lifting and activities that place stress on her abdominal wall. Immunosuppression: Tacrolimus level on 09/16/2025 was 4.3 mcg/L. She continues tacrolimus 1 mg by mouth every morning and 0.5 mg by mouth every evening. She continues cellcept 750 mg every 12 hours via Gtube and prednisone 5 mg daily via Gtube. She will have weekly lab draws going forward at [facility] (Lab order to be provided on discharge). Prophylaxis: She continues bactrim and acyclovir for prophylaxis. CMV: Recipient Negative, Donor Negative (low risk). Duodenal Hematoma: Sips of clears for comfort. Continues Glucerna 1.5 via Jtube port at 60 ml/hour 6 pm to 10 am. She will need an upper GI study in one month (end of September 2025) to follow contrast to the ligament of treitz. Gport will remain to gravity unless clamped for meds (entecavir and tacro). Plan for fluoroscopy upper GI study, hopefully next week to follow up hematoma. Will see Ninoska Kiser (transplant die finisher) next week during discharge appointments. Intraabdominal abscess: Scheduled to complete 2 week course of ertapenem on 09/22/2025. Has been getting antibiotics via picc line. Sent message to Dr. Coles regarding need for additional abdominal imaging following completion of ertapenem vs. Pulling picc line. DMII: With steroid induced hyperglycemia. Following with Dr. Kramer. ID: HBV Donor Positive, Recipient Negative, continues entecavir. Will have OPTN labs drawn today. The patient was advised to continue to avoid heavy lifting and to contact us if there are any changes in her overall health and specifically if she experiences any nausea, vomiting, diarrhea, chills, or fevers. We will see the patient back in the liver clinic on Tuesday, or earlier as needed. Assessment & Plan (07/03/2025 12:00 PM [...] services with Dr. Yasmin Ho MD of [facility] GI 02/2024, note reviewed: She remains [...] Saw Transplant Hepatology and GI specialist at [facility] on 09/11/24. Per note, she remains active on LT waitlist with an updated MELD 3.0 of 19 based on blood work in April 2024. Etiology of her liver disease and progressive jaundice remains unclear despite prior MRI/MRCP and interval liver biopsy in May 2024 which was non-specific with non-specific findings which we reviewed with patient and [id number] again today. We recommended continuation of empiric [...] labs show elevated LFTs. Labs sent to high school academic coach. 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 Recommending redraw next week with PT and INR to update meld. Lab order was faxed. -reordered labs 12/05/24, stable and [facility] aware -CT 01/08/25 with Liver Transplant MD [...] services with Dr. Yasmin Ho MD of [facility] GI 02/2024, note reviewed: She remains [...] Saw Transplant Hepatology and GI specialist at [facility] on 09/11/24. Per note, she remains active on LT waitlist with an updated MELD 3.0 of 19 based on blood work in April 2024. Etiology of her liver disease and progressive jaundice remains unclear despite prior MRI/MRCP and interval liver biopsy in May 2024 which was non-specific with non-specific findings which we reviewed with patient and [id number] again today. We recommended continuation of empiric [...] labs show elevated LFTs. Labs sent to high school academic coach. Due to increased bilirubin, labs were sent to high school academic coach who reports chronically elevated due to chol [...] psychiatrist Emory Sidhu MD on 11/09/23 with Laxmilaury tapia -Seen by transplant services with Dr. Yasmin Ho MD of [facility] 02/2024, note reviewed: She remains [...] Saw Transplant Hepatology and GI specialist at [facility] on 09/11/24. Per note, she remains active on LT waitlist with an updated MELD 3.0 of 19 based on blood work in April 2024. Etiology of her liver disease and progressive jaundice remains unclear despite prior MRI/MRCP and interval liver biopsy in May 2024 which was non-specific with non-specific findings which we reviewed with patient and [id number] again today. We recommended continuation of empiric [...] labs show elevated LFTs. Labs sent to high school academic coach. 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 Recommending redraw next week with PT and INR to update meld. Lab order was faxed. -reordered labs 12/05/24, stable and [facility] aware Assessment & Plan (12/05/2024 [...] services with Dr. Yasmin Ho MD of [facility] 02/2024, note reviewed: She remains [...] Saw Transplant Hepatology and GI specialist at [facility] on 09/11/24. Per note, she remains active on LT waitlist with an updated MELD 3.0 of 19 based on blood work in April 2024. Etiology of her liver disease and progressive jaundice remains unclear despite prior MRI/MRCP and interval liver biopsy in May 2024 which was non-specific with non-specific findings which we reviewed with patient and [id number] again today. We recommended continuation of empiric [...] labs show elevated LFTs. Labs sent to high school academic coach. Due to increased bilirubin, labs were sent to high school academic coach who reports chronically elevated due to chol [...] [facility]. -liver biopsy 2018 [...] psychiatrist Emory Sidhu MD on 11/09/23 with Laxmihank tapia -Seen by transplant services with Dr. Yasmin Ho MD of [facility] 02/2024, note reviewed: She remains [...] 202, possibly reactive. -[facility] [...] Saw Transplant Hepatology and GI specialist at [facility] on 09/11/24. Per note, she remains active on LT waitlist with an updated MELD 3.0 of 19 based on blood work in April 2024. Etiology of her liver disease and progressive jaundice remains unclear despite prior MRI/MRCP and interval liver biopsy in May 2024 which was non-specific with non-specific findings which we reviewed with patient and [id number] again today. We recommended continuation of empiric [...] services with Dr. Yasmin Ho MD of [facility] 02/2024, note reviewed: She remains [...] anterior medial cardiophrenic enhancing lymph nodes. Complex partial seizure (CMS/HCC) 09/11/2015 Overview (10/24/2024): -Hx focal epilepsy secondary [...] not drive), baths or swimming. Awaiting new HEM MARKER provider. Daughter aware of how to call 911. Followed by neurologist, -followed by Dr. Jono Eden at [facility] [employer]. Next appointment 08/2024 -she self dc d her aspirin. I recommended she called neurology to get refills on her medication -she has been seizure free with Zonisamide 200 mg nightly and ran out of supplies 6 months ago. I recommend to resume Zonisamide since her risk of recurrent seizure is over 60% due to her prior hemorrhagic stroke. -Saw Neurologist at [facility] 08/20/24, Plan: continue ZNS 200 mg [...] not drive), baths or swimming. Awaiting new HEM MARKER provider. Daughter aware of how to call 911. Followed by neurologist, -followed by Dr. Jono Eden at [facility] [employer]. Next appointment 08/2024 -she self dc d her aspirin. I recommended she called neurology to get refills on her medication -she has been seizure free with Zonisamide 200 mg nightly and ran out of supplies 6 months ago. I recommend to resume Zonisamide since her risk of recurrent seizure is over 60% due to her prior hemorrhagic stroke. -Saw Neurologist at [facility] 08/20/24, Plan: continue ZNS 200 mg [...] not drive), baths or swimming. Awaiting new HEM MARKER provider. Daughter aware of how to call 911. Followed by neurologist, -followed by Dr. Jono Eden at [facility]. Next appointment 08/2024 -she self dc d her aspirin. I recommended she called neurology to get refills on her medication -she has been seizure free with Zonisamide 200 mg nightly and ran out of supplies 6 months ago. I recommend to resume Zonisamide since her risk of recurrent seizure is over 60% due to her prior hemorrhagic stroke. -Saw Neurologist at [facility] 08/20/24, Plan: continue ZNS 200 mg [...] not drive), baths or swimming. Awaiting new HEM MARKER provider. Daughter aware of how to call 911. Followed by neurologist, -followed by Dr. Jono Eden at [facility]. Next appointment 08/2024 -she self dc d her aspirin. I recommended she called neurology to get refills on her medication -she has been seizure free with Zonisamide 200 mg nightly and ran out of supplies 6 months ago. I recommend to resume Zonisamide since her risk of recurrent seizure is over 60% due to her prior hemorrhagic stroke. -Saw Neurologist at [facility] 08/20/24, Plan: continue ZNS 200 mg [...] not drive), baths or swimming. Awaiting new HEM MARKER provider. Daughter aware of how to call 911. Followed by neurologist, -followed by Dr. Jono Eden at [facility]. Next appointment 08/2024 [...] -Has follow up on Aug 20 at [facility] Assessment & Plan (10/20/2023 8:57 AM [...] 12/11/2020 HEMATOCRIT 35.0 12/07/2021 HEMATOCRIT 39.4 12/11/2020 Recurrent major depressive disorder, in partial remission 04/11/2012 Overview (06/29/2023): PT refuses services with therapy or medication. She likely has component of personally disorder. She is not active in her care. She has had multiple retail sales representative which she has fired and multiple case [...] in her care. She has had multiple retail sales representative which she has fired and multiple case [...] in her care. She has had multiple retail sales representative which she has fired and multiple case [...] in her care. She has had multiple retail sales representative which she has fired and multiple case [...] in her care. She has had multiple retail sales representative which she has fired and multiple case [...] Swelling of right ear 12/19/20242024 Overview (12/19/2024): [facility] (12/08/2024 - 12/10/2024) Patient presented for evaluation of ear pain and redness. Dx acute perichondritis. Treated with IV cefepime due to extensive infection. No sepsis. Some crusting but significant improvement in swelling. Discharged home with Levaquin to complete a total of 10 days of antibiotics and 4 days of prednisone. Seen by [facility] on 12/14/24 at pt's home for bilateral leg swelling. Slight non-pitting edema to superior side of distal feet. BGL was 230 as pt was eating dinner and about to administer insulin shortly after. She was told it was due to prednisone. She stopped her prednisone and symptoms resolved. Pt called her specialist in [place]. She is doing much better. She showed me a photo of her year that was severely inflamed with vesicles and erythremia. This has resoled and no longer on prednisone. She requests letter to keep her dog at home due to her anxiety. Assessment & Plan (12/19/2024 1:01 PM EDT): [facility] (12/08/2024 - 12/10/2024) Patient presented for evaluation of ear pain and redness. Dx acute perichondritis. Treated with IV cefepime due to extensive infection. No sepsis. Some crusting but significant improvement in swelling. Discharged home with Levaquin to complete a total of 10 days of antibiotics and 4 days of prednisone. [facility] pt's home for bilateral leg swelling. Slight non-pitting edema to superior side of distal feet. BGL was 230 as pt was eating dinner and about to administer insulin shortly after. She was told it was due to prednisone. She stopped her prednisone and symptoms resolved. Pt called her specialist in [place]. She is doing much better. 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 Yasmin Ho MD of [facility] 12/12/2023, note reviewed Cirrhosis: -Compensated: [...] diet discussed. Avoid hepatotoxic agents. -Followed by: [facility] -continue ursodiol therapy given marked AP elevation and potential for AMA negative PCB. -transplant candidacy will be determined by multidisciplinary transplant committee after all appropriate testing has been performed. -Has follow up with liver transplant sales enablement consultant on at [facility] -Per pt, On liver transplant list [...] by [facility]. -seen by Liver [...] diet discussed. Avoid hepatotoxic agents. -Followed by: [facility] -continue ursodiol therapy given marked AP elevation and potential for AMA negative PCB. -transplant candidacy will be determined by multidisciplinary transplant committee after all appropriate testing has been performed. -call place by me to [facility] home health care provider at [facility] [phone] to stress the urgency of HEM MARKER services and increase level of care. He [...] by [facility]. -seen by Liver [...] diet discussed. Avoid hepatotoxic agents. -Followed by: [facility] -continue ursodiol therapy given marked AP elevation and potential for AMA negative PCB. -transplant candidacy will be determined by multidisciplinary transplant committee after all appropriate testing has been performed. -call place by me to [facility] home health care provider at [facility] Omar Juarez [phone] cell [phone] to stress the urgency of HEM MARKER services and increase level of care. He [...] by [facility]. The possibility for [...] Encounters Date Type Department Care Team Description 09/25/[address] [address] Sammie Maharaj MD Durable Medical Equipment 09/25/[address] [address] Sammie Maharaj MD verbal orders 09/24/[address] [address] Sammie Maharaj MD Durable Medical Equipment 09/24/[address] [address] Sammie Maharaj MD Durable Medical Equipment (DME: Incontinence Supplies) 09/20/[address] [address] Sammie Maharaj MD Care Coordination; Results 09/20/[address] [address] Sammie Maharaj MD 09/20/2025 Patient Outreach [address] [address] Sammie Maharaj MD Transition Of Care (Tcm) (HDF- scheduled (direct)) 09/20/[address] [address] Sammie Maharaj MD Durable Medical Equipment (DME: [facility] Care Request) 09/12/2025 Orders Only [facility] [address] [place] [address] Sammie Maharaj MD Liver transplant recipient ([facility]/HCC) (HCC) (Primary Dx) 08/22/[address] [address] Sammie Maharaj MD call back 07/30/2025 Refill [facility] [address] [place] [address] Sammie Maharaj MD 07/03/2025 9:30 AM EDT Office Visit [address] [address] Sammie Maharaj MD Altered mental status, unspecified altered mental status type (Primary Dx); End stage liver disease ([facility]); H/O insertion of pancreatic stent; Type 2 diabetes mellitus with hyperglycemia, with long-term current use of insulin ([facility]); Mixed hyperlipidemia; Anemia, unspecified type; Complex partial seizure ([facility]/HCC); Aphasia; Depressive disorder; Complex care coordination; Encounter for immunization; Other specified health status 07/03/2025 Travel 07/02/2025 Refill [facility] [address] [place] [address] Sammie Maharaj MD from Last 3 Months Immunizations Immunization Administration Dates Next Due DTaP, 5 pertussis antigens 04/03/2010 Hep A, Adult 05/01/2009,02/29/2008 Hep B, adult 09/29/2023,07/28/2023,07/13/2019 Hib ([facility]) 06/11/2009 Influenza injectable quadriv alent [...] Description 10/09/2025 10:15 AM EST Office Visit [facility] [address] [place] [address] Miriam Shipman MD [address] [place] [address] 11/07/2025 9:15 AM EST Office Visit [address] [address] Sammie Maharaj MD [address] [place] [address] [phone] Health Maintenance Due Date Last Done Comments HPV Vaccines (1 - Risk 3-dose SCDM series) 2008 Zoster Vaccines (2 of 2) 12/16/2023 10/21/2023 COVID-19 Vaccine ( season) 2025 07/09/2024, 08/29/2023, 03/17/2021 Diabetes: Hemoglobin A1C 09/21/2025 025, 03/13/2025, 11/14/2024, Additional history exists Alcohol/Substance Use Screening 10/24/2025 [...] 03/25/2021 Disability Screening 07/03/2026 07/03/2025 Tobacco Screening 09/12/2026 09/12/2025 Eye Exam 02/25/2027 02/25/2025, 02/07, 02/25/2025, Additional [...] HM MAMMOGRAPHY Routine 05/28/2025 2:48 PM EDT POCT GLYCOSYLATED HEMOGLOBIN (HGB A1C) Routine 03/13/2025 3:44 PM EDT Type 2 diabetes mellitus with hyperglycemia, with long-term current use of insulin ([facility]) ALBUMIN, RANDOM URINE W/CREATININE Routine 11/05/2024 10:20 [...] Blood Count 3.9(L) 4.8 - 10.8 X10*3/uL [facility] Red Blood Count 3.75(L) 4.20 - 5.50 X10*6/uL [facility] Hemoglobin 11.4(L) 12.0 - 16.0 g/dl [facility] Hematocrit 33.6(L) 37.0 - 47.0 % [facility] Mean Corpuscular Volume 89.6 80.0 - 98.0 fL [facility] Mean Corpuscular Hemoglobin 30.4 27.0 - 33.0 pg [facility] Mean Corpuscular HGB Conc 33.9 31.0 - 35.0 g/dl [facility] Red Cell Distribution Width 14.1 11.0 - 16.0 % [facility] NRBC Pct Auto 0.0 0.0 - 0.2 /100WBC [facility] NRBC Abs Auto 0.000 0.0 - 0.012 X10*3/uL [facility] Blood Venous blood specimen / Unknown 07/03/2025 11:18 AM EDT 07/03/2025 11:18 AM EDT us Sammie Maharaj MD LAB BLOOD ORDERABLES Final Result Performing Organization Address [facility] Co de Phone Number [facility] [address] [place] [phone] * (ABNORMAL) Ammonia, Plasma (07/03/2025 11:18 AM EDT) Ammonia (P) 81(H) 13 - 55 umol/L [facility] Blood Venous blood specimen / Unknown 07/03/2025 11:18 AM EDT 07/03/2025 11:18 AM EDT Sammie Maharaj MD LAB BLOOD ORDERABLES Final Result Performing Organization Address [facility] de Phone Number [facility] [address] [place] [phone] * (ABNORMAL) Hepatic Function Panel (07/03/2025 11:18 AM EDT) Bilirubin, Total 9.4(H) 0.0 - 1.0 mg/dL [facility] Comment:Mild Icterus. Bilirubin, Direct 7.2(H) 0.0 - 0.5 mg/dL [facility] Comment:Mild Icterus. Aspartate Amino Transferase 108(H) 5 - 31 U/L [facility] Alanine Aminotransferase 72(H) 0 - 31 U/L [facility] Total Protein 6.1(L) 6.5 - 8.0 g/dL [facility] Albumin Level 3.1(L) 3.5 - 5.0 g/dL [facility] Alkaline Phosphatase 849(H) 39 - 117 U/L [facility] Blood Venous blood specimen / Unknown 07/03/2025 11:18 AM EDT 07/03/2025 11:18 AM EDT Sammie Maharaj MD LAB BLOOD ORDERABLES Final Result Performing Organization Address [facility] Co de Phone Number [facility] [address] [place] [phone] * (ABNORMAL) Basic Metabolic Panel (07/03/2025 11:18 AM EDT) Sodium 145 135 - 145 mmol/L [facility] Potassium 3.4 3.3 - 5.1 mmol/L [facility] Chloride 115(H) 96 - 108 mmol/L [facility] Carbon Dioxide 22 22 - 29 mmol/L [facility] Anion Gap 11(L) 12 - 20 [facility] Urea Nitrogen (BUN) 16 9 - 16 mg/dL [facility] Creatinine, Serum 0.52 0.5 - 1.4 mg/dL [facility] Comment:Mild Icterus.Interpr et result with caution. Estimated Glomerular Filt Rate >60 [facility] Comment:Chronic Kidney Disea se: Estimated GFR < 60 mL/min/1.86l8Vjlclz Kidney Disease: Estimated GFR < 15 mL/min/1.73m2 Glucose 164(H) 60 - 115 mg/dL [facility] Calcium 8.6 8.4 - 10.2 mg/dL [facility] Blood Venous blood specimen / Unknown 07/03/2025 11:18 AM EDT 07/03/2025 11:18 AM EDT Sammie Maharaj MD LAB BLOOD ORDERABLES Final Result [facility] [address] [place] [phone] * Mammography (05/28/2025 2:48 PM EDT) Mammogram BIRADS 1 Normal, Abnormal, BIRADS 1 , BIRADS 2 Anatomical Region Laterality Modality Other Historical Provider HEALTH MAINTENANCE Final Result * POCT glycosylated hemoglobin (Hgb A1c) (03/13/2025 3:44 PM EDT) Hemoglobin A1C 4.4 4.0 - 6.0 % QC Media Lot # [id number] Lot# Expiration Date [id number] Blood Capillary blood specimen / Unknown 03/13/2025 3:44 PM EDT us Sammie Maharaj MD POINT OF CARE TEST ENTER/E DIT ORDERABLES Final Result * Albumin, Random Urine W/Creatinine (11/05/2024 10:20 AM EST) Creatinine, Urine 59.34 mg/dL [facility] Microalbumin Urine <5.0 mg/L [facility] Microalbum Creatinine Ratio Ur TNP <30 ug/mg cr [facility] Comment:Unable to calculate albumin/creatinine ratio due to lowmicroalbumin or creatinine result. Urine 11/05/2024 10:2 0 AM EST 11/05/2024 11:21 AM EST Sammie Maharaj MD LAB URINE ORDERABLES Final Result Performing Organization Address City/State/[facility] Co de Phone Number [facility] [address] [place] [phone] * (ABNORMAL) Lipid Panel, Standard (10/24/2024 9:59 AM EST) Triglycerides 91 <150 mg/dL [facility] Comment:Mild Icterus.Interpr et result with caution.Desirable Triglyceride: less than 150 mg/dLBorderline High Triglyceride 150-199 mg/dLHigh Triglyceride: 200-499 mg/dLVery High Triglyceride: greater than or equal to 5OO mg/dL Cholesterol 132 <200 mg/dL [facility] Comment:Mild Icterus.Interpr et result with caution.Desirable Cholesterol: less than 200 mg/dLBorderline High Cholesterol: 200-239 mg/dLHigh Cholesterol: greater than 239 mg/dL LDL Cholesterol Calculated 92 <100 mg/dL [facility] Comment:Desirable LDL: less than 100 mg/dLNear Optimal/Above Optimal LDL: 110- 129 mg/dLBorderline High LDL: 130-159 mg/dLHigh LDL: 160-189 mg/dLVery High LDL: greater than or equal to 190 mg/dL HDL Cholesterol 22(L) >40 mg/dL [facility] Comment:Desirable HDL: great er than 40 mg/dL Note: This HDL assay may give artificially low results in patients with liver disease. Blood Venous blood specimen / Unknown 10/24/2024 9:59 AM EST 10/24/2024 11:05 AM EST Sammie Maharaj MD LAB BLOOD ORDERABLES Final Result Performing Organization Address City/[facility] Co de Phone Number [facility] [address] [place] [phone] * Hepatitis C Ab (07/28/2023 10:55 AM EDT) Pathologist [facility] Hepatitis C Antibody Nonreactive Nonreactive [facility] Comment:Antibodies to HCV no t detected; does not exclude early acuteHCV infection. Blood 07/28/2023 10:5 5 AM EDT 07/28/2023 1:11 PM EDT Sammie Maharaj MD LAB BLOOD ORDERABLES Final Result Performing Organization Address [facility] de Phone Number [facility] [address] [place] [phone] * HIV Ab/Ag ([facility]) (07/28/2023 10:55 AM EDT) HIV AB/AG Nonreactive Nonreactive [facility] Comment:HIV-1 p24 Ag and/or HIV-1/HIV-2 Ab not detected.A test result that is nonreactive does not exclude thepossibility of exposure to or infection with HIV-1 and/orHIV-2. Nonreactive results in this assay for individualswith prior exposure to HIV-1 and/or HIV-2 may be due toantigen and antibody levels that are below the limit ofdetection of this assay.The [employer] HIV Ag/Ab Combo assay result andsupplemental assay results should be interpreted inconjunction with the patient's clinical presentation,history and other laboratory results. If the results areinconsistent with clinical evidence, additional testing issuggested to confirm the result. 07/28/2023 10:5 5 AM EDT 07/28/2023 1:11 PM EDT Sammie Maharaj MD LAB BLOOD ORDERABLES Final Result [facility] [address] [place] [address] [phone] * Pap Smear (03/25/2021 12:00 AM EDT) Swab Historical Provider LAB CYTOLOGY ORDERABLES F inal Result IMAGING from Last 3 Months or Most Recently Relevant to Health Maintenance Insurance [facility] < 65 [address] [id number] Advance Directives Documents on File Type Date Recorded Patient Communication Electronic Technician Expl anation Advance Directives and Living Will 07/09/2024 Health Care Proxy 07/09/24 Care Teams Poultry Hatchery Supervisor Relationship Specialty Start Date End Date Sammie Maharaj MD [address] [place] [address] PCP - General Family Medicine 10/10/18 Loyda Glaser, RN [address] [place] [address] Applied Research Director Family Medicine 10/31/23 Yasmin Ho MD [address] [place] [address] Gastroenterology 08/29/24 Manuel Carpenter PA [facility] [phone] Neurology 08/29/24 Paola Tolentino [employer] [address] [address] Endocrinology 10/24/24 [facility] Psychology Psychology 12/19/24
--- OUTSIDE RECORDS SUMMARY | 2025-09-26 09:43 | XMS_ITS | Encounter Summary ---
Author Organization [employer] Address [address] [place] [address] 7t [place] [address] Care Team Providers Care [place] Specialist Name Role Phone Sammie Maharaj MD Primary Care Provider [phone] Loyda Glaser RN Unavailable [phone] Yasmin Ho MD Unavailable [phone] Encounter Details Date Type Department Care Team (Late st Contact Info) Description 12/01/2022 Orders Only [facility] [address] [place] [address] [phone] Ericka Osei MD [address] [place] [address] [phone] Visual problems (Primary Dx) Social History Tobacco [...] Description 10/09/2025 10:15 AM EST Office Visit [address] [phone] Miriam Shipman MD [address] [place] [address] [phone] 11/07/2025 9:15 AM EST Office Visit [address] [address] Sammie Maharaj MD [address] [place] [address] documented as of this encounter Visit Diagnoses Diagnosis Visual problems- Primary documented in this encounter Care Teams [place] Specialist Relationship Specialty Start Date End Date Sammie Maharaj MD [address] [place] [phone] PCP - General Family Medicine 10/10/18 Loyda Glaser, RN [address] [place] [address] Supervisor Securities [employer] Family Medicine 10/31/23 Yasmin Ho MD [address] [place] [address] Gastroenterology 08/29/24 Manuel Carpenter PA [facility] 55 [facility] [address] Neurology 08/29/24 Paola Tolentino NP [address] [address] Endocrinology 10/24/24 [facility] Psychology Psychology 12/19/24 documented as of this encounter
--- OUTSIDE RECORDS SUMMARY | 2025-09-26 09:43 | XMS_ITS | Encounter Summary ---
Author Organization [employer] Address [address] [place] [address] Care Team Providers Care Financial Planning Consultant Name Role Phone Sammie Maharaj MD Primary Care Provider [phone] Loyda Glaser RN Unavailable [phone] Yasmin Ho MD Unavailable [phone] Reason for Visit * Reason Comments Med Refill Encounter Details Date Type Department Care Team (Late st Contact Info) Description 10/24/2024 Refill [facility] [address] [place], [place] [phone] Sammie Maharaj MD [address] [place], [place] [phone] Microcytic anemia Social History Tobacco Use Types [...] all 10/24/2024 9:33 AM EST Jorge Alberto, As JAZ au * Thoughts that you would be better off or hurting yourself in some way Answer Date of Assessment Author Not at all 10/24/2024 9:33 AM EST Jorge Alberto, Farzaneh au [place] * Patient Health Questionnaire-9 Score Answer Date of Assessment Author 0 10/24/2024 9:33 AM EST Jorge Alberto, As JAZ au documented as of this encounter Plan of Treatment Upcoming Encounters Date Type Department Care Team (Late st Contact Info) Description 10/09/2025 10:15 AM EST Office Visit [address] [address] Miriam Shipman MD [address] [place] [address] 11/07/2025 9:15 AM EST Office Visit [address] [address] Sammie Maharaj MD [address] [place] [address] documented as of this encounter Visit Diagnoses Diagnosis Microcytic anemia Unspecified iron deficiency anemia documented in this encounter Additional Health Concerns Assessment Noted Time PHQ-9 Depression Total Score: 0 10/24/19 25 9:33 AM EST documented as of this encounter Care Teams Financial Planning Consultant Relationship Specialty Start Date End Date Sammie Maharaj MD [address] [place] [phone] PCP - General Family Medicine 10/10/18 Loyda Glaser, ERVIN [address] [place] [address] Special Effects Designer Family Medicine 10/31/23 Yasmin Ho MD [address] [place] [address] Gastroenterology 08/29/24 Manuel Carpenter PA [address] [address] Neurology 08/29/24 Paola Tolentino NP [address] [address] Endocrinology 10/24/24 [facility] Psychology Psychology 12/19/24 documented as of this encounter
--- OUTSIDE RECORDS SUMMARY | 2025-09-26 09:43 | XMS_ITS | Encounter Summary ---
Author Organization [email or web address] Address [address] [place] [address] Care Team Providers Care Mail Truck Driver Name Role Phone Sammie Maharaj MD Primary Care Provider [phone] Loyda Glaser RN Unavailable [phone] Yasmin Ho MD Unavailable [phone] Reason for Visit * Reason Comments Med Refill Encounter Details Date Type Department Care Team (Late st Contact Info) Description 03/13/2025 Refill [facility] [address] [place], [place] [phone] Sammie Maharaj MD [address] [place], [place] [phone] Tinea unguium Social History Tobacco Use Types [...] Description 10/09/2025 10:15 AM EST Office Visit [address] [address] Miriam Shipman MD [address] [place] [address] 11/07/2025 9:15 AM EST Office Visit [address] [address] Sammie Maharaj MD [address] [place] [address] [phone] documented as of this encounter Visit Diagnoses Diagnosis Tinea unguium Dermatophytosis of nail documented in this encounter Additional Health Concerns Assessment Noted Time PHQ-9 Depression Total Score: 0 10/24/19 25 9:33 AM EST documented as of this encounter Care Teams Mail Truck Driver Relationship Specialty Start Date End Date Sammie Maharaj MD [address] [place] [address] PCP - General Family Medicine 10/10/18 Loyda Glaser, RN [address] [place] [address] [place] [address] Cosmetic Consultant Family Medicine 10/31/23 Yasmin Ho MD [address] [place] [address] Gastroenterology 08/29/24 Manuel Carpenter PA [facility] [address] Neurology 08/29/24 Paola Tolentino NP [address] [address] Endocrinology 10/24/24 [facility] Psychology Psychology 12/19/24 documented as of this encounter
--- OUTSIDE RECORDS SUMMARY | 2025-09-26 09:43 | XMS_ITS | Encounter Summary ---
Author Organization [employer] Address [address] [facility] [address] 7t [place] [address] Care Team Providers Care Poultry Husbandry Teacher Name Role Phone Sammie Maharaj MD Primary Care Provider +1- [phone] Loyda Glaser RN Unavailable [phone] Yasmin Ho MD Unavailable [phone] Reason for Visit * Reason Comments Med Refill Encounter Details Date Type Department Care Team (Late st Contact Info) Description 12/25/2024 Refill [facility] 230 [place], [place] [phone] Sammie Maharaj MD 230 [place], [place] [phone] Tinea unguium Social History Tobacco Use Types [...] Description 10/09/2025 10:15 AM EST Office Visit [address] [address] Miriam Shipman MD [address] [place] [address] 11/07/2025 9:15 AM EST Office Visit [address] [address] Sammie Maharaj MD [address] [place] [address] [phone] documented as of this encounter Visit Diagnoses Diagnosis Tinea unguium Dermatophytosis of nail documented in this encounter Additional Health Concerns Assessment Noted Time PHQ-9 Depression Total Score: 0 10/24/19 25 9:33 AM EST documented as of this encounter Care Teams Poultry Husbandry Teacher Relationship Specialty Start Date End Date Sammie Maharaj MD [address] [place] [address] PCP - General Family Medicine 10/10/18 Loyda Glaser, RN [address] [place] [address] [place] [address] Economic Development Coordinator Family Medicine 10/31/23 Yasmin Ho MD [address] [place] [address] Gastroenterology 08/29/24 Manuel Carpenter PA [facility] 55 [facility] [address] Neurology 08/29/24 Paola Tolentino NP [address] [address] Endocrinology 10/24/24 [facility] Psychology Psychology 12/19/24 documented as of this encounter
--- OUTSIDE RECORDS SUMMARY | 2025-09-26 09:44 | XMS_ITS | Encounter Summary ---
Author Organization [employer] Address [address] [facility] 7t [place] [address] Care Team Providers Care Medication Reconciliation Technician Name Role Phone Sammie Maharaj MD Primary Care Provider +- [phone] Loyda Glaser RN Unavailable [phone] Yasmin Ho MD Unavailable [phone] Encounter Details Date Type Department Care Team (Late st Contact Info) Description 05/16/2023 Orders Only [facility] 505 [place] [address] Emily Marcial LPN Social History Tobacco Use [...] Department Care Team (Late Contact Info) Description 10/09/2025 10:15 AM EST Office Visit [facility] MED[facility]INE [address] [place] [address] [phone] Miriam Shipman MD [address] [place] [address] [phone] 11/07/2025 9:15 AM EST Office Visit [address] [phone] Sammie Maharaj MD [address] [place] [address] [phone] documented as of this encounter Visit Diagnoses Not on filedocumented in this encounter Care Teams Medication Reconciliation Technician Relationship Specialty Start Date End Date Sammie Maharaj MD 230 [place] [address] PCP - General Family Medicine 10/10/18 Loyda Glaser, ERVIN 230 [place] [address] Vp Integrity Family Medicine 10/31/23 Yasmin Ho MD 55 [place] [address] Gastroenterology 08/29/24 Manuel Carpenter PA [facility] 55 [facility] [address] Neurology 08/29/24 Paola Tolentino, HEBERT [address] [address] Endocrinology 10/24/24 [facility] Psychology Psychology 12/19/24 documented as of this encounter
--- OUTSIDE RECORDS SUMMARY | 2025-09-26 09:44 | XMS_ITS | Encounter Summary ---
Author Organization [employer] Address [address] [facility] [address] [address] 7t [place] [address] Care Team Providers Care Lawn Mower Mechanic Name Role Phone Sammie Maharaj MD Primary Care Provider +1- [phone] Loyda Glaser RN Unavailable [phone] Yasmin Ho MD Unavailable [phone] Reason for Visit * Reason Onset Date Comments Appointment Request 10/20/2023 Encounter Details Date Type Department Care Team ([facility] st Contact Info) Description 10/20/2023 Telephone [facility] MEDICINE 230 [place], [place] [phone] Sammie Maharaj MD 230 [place], [place] [phone] Appointment Request Social History Tobacco Use Types [...] and reschedule appt for 11/03/2023 @ 9:30 hand sign writer did cancel per patients request documented in this encounter Plan of Treatment Upcoming Encounters Date Type Department Care Team (Late st Contact Info) Description 10/09/2025 10:15 AM EST Office Visit [facility] [address] [place] [address] Miriam Shipman MD [address] [place] [address] 11/07/2025 9:15 AM EST Office Visit [facility] [address] [place] [address] Sammie Maharaj MD [address] [place] [address] documented as of this encounter Visit Diagnoses Not on filedocumented in this encounter Additional Health Concerns Assessment Noted Time PHQ-9 Depression Total Score: 0 07/28/20 23 9:42 AM EDT documented as of this encounter Care Teams Lawn Mower Mechanic Relationship Specialty Start Date End Date Sammie Maharaj MD [address] [place] [address] [place] [address] PCP - General Family Medicine 10/10/18 Loyda Glaser, RN 230 [place] [address] Director Of Curriculum Family Medicine 10/31/23 Yasmin Ho MD 55 [place], [place] [phone] Gastroenterology 08/29/[address] [facility] 55 [facility] [address] Neurology 08/29/24 Paola Tolentino, MICRO PALEONTOLOGIST [address] [address] Endocrinology 10/24/24 [facility] Psychology Psychology 12/19/24 documented as of this encounter
--- OUTSIDE RECORDS SUMMARY | 2025-09-26 09:44 | XMS_ITS | Encounter Summary ---
Author Organization [employer] Address [address] [facility] [address] 7t [place] [address] Care Team Providers Care Molecular Biology Professor Name Role Phone Sammie Maharaj MD Primary Care Provider [phone]- [phone] Loyda Glaser RN Unavailable [phone] Yasmin Ho MD Unavailable Reason for Visit * Reason Onset Date Comments Nurse Triage 03/22/2023 Encounter Details Date Type Department Care Team (Late st Contact Info) Description 03/22/2023 Telephone [facility] MEDICINE 230 [place] [address] Sammie Maharaj MD 230 [place], [place] [phone] Nurse Triage Social History Tobacco Use Types [...] 03/22/2023 2:01 PM EDT Triage call with [employer] [place] [id number] Pt didn't answer left message to call [facility] triage line at [phone]. Triage call with [employer] [place] [id number] Pt answered, Pt wasn't able to say [...] Description 10/09/2025 10:15 AM EST Office Visit [address] [address] Miriam Shipman MD [address] [place] [address] 11/07/2025 9:15 AM EST Office Visit [address] [address] Sammie Maharaj MD [address] [place] [address] documented as of this encounter Visit Diagnoses Not on filedocumented in this encounter Care Teams Molecular Biology Professor Relationship Specialty Start Date End Date Sammie Maharaj MD [address] [place] [address] PCP - General Family Medicine 10/10/18 Loyda Glaser, ERVIN [address] [place] [address] Cobbler Sole Family Medicine 10/31/23 Yasmin Ho MD [address] [place] [address] Gastroenterology 08/29/24 Manuel Carpenter PA [address] [address] Neurology 08/29/24 Paola Tolentino NP [address] [address] Endocrinology 10/24/24 [facility] Psychology Psychology 12/19/24 documented as of this encounter
--- OUTSIDE RECORDS SUMMARY | 2025-09-26 09:44 | XMS_ITS | Encounter Summary ---
Author Organization [employer] Address [address] 7t [place] [address] Care Team Providers Care Terminal Block Assembler Name Role Phone Sammie Maharaj MD Primary Care Provider +1- [phone] Loyda Glaser RN Unavailable [phone] Yasmin Ho MD Unavailable [phone] Encounter Details Date Type Department Care Team (Late st Contact Info) Description 05/28/2025 Abstract [facility] 230 [place] [address] Laya Azul MA Social History Tobacco Use [...] t he electric, gas, oil or water [employer] threatened to shut off services in your [...] Description 10/09/2025 10:15 AM EST Office Visit [address] [phone] Miriam Shipman MD [address] [place] [address] [phone] 11/07/2025 9:15 AM EST Office Visit [address] [address] Sammie Maharaj MD [address] [place] [address] [phone] documented as of this encounter Procedures Procedure [...] documented as of this encounter Care Teams Terminal Block Assembler Relationship Specialty Start Date End Date Sammie Maharaj MD [address] [place] [address] [place] [address] PCP - General Family Medicine 10/10/18 Loyda Glaser, RN 230 [place] [address] Bituminous Distributor Operator Family Medicine 10/31/23 Yasmin Ho MD 55 [place], [place] [phone] Gastroenterology 08/29/24 Manuel Carpenter PA [facility] 55 [facility] [address] Neurology 08/29/24 Paola Tolentino, PROCESS TECHNICIAN [address] [address] Endocrinology 10/24/24 [facility] Psychology Psychology 12/19/24 documented as of this encounter
--- OUTSIDE RECORDS SUMMARY | 2025-09-26 09:44 | XMS_ITS | Encounter Summary ---
Author Organization [employer] Address [address] 7t [place] [address] Care Team Providers Care Core Inspector Name Role Phone Sammie Maharaj MD Primary Care Provider [phone]- [phone] Loyda Glaser RN Unavailable [phone] Yasmin Ho MD Unavailable [phone] Reason for Visit * Reason Comments Med Refill Encounter Details Date Type Department Care Team (Late st Contact Info) Description 06/02/2025 Refill [facility] 230 [place], [place] [phone] Sammie Maharaj MD 230 [place], [place] [phone] Tinea unguium Social History Tobacco Use Types [...] Description 10/09/2025 10:15 AM EST Office Visit [address] [address] Miriam Shipman MD [address] [address] 11/07/2025 9:15 AM EST Office Visit [address] [address] Sammie Maharaj MD [address] [place] [address] [phone] documented as of this encounter Visit Diagnoses Diagnosis Tinea unguium Dermatophytosis of nail documented in this encounter Additional Health Concerns Assessment Noted Time PHQ-9 Depression Total Score: 0 10/24/19 25 9:33 AM EST documented as of this encounter Care Teams Core Inspector Relationship Specialty Start Date End Date Sammie Maharaj MD [address] [place] [address] PCP - General Family Medicine 10/10/18 Loyda Glaser, RN [address] [place] [address] [place] [address] Slide Fastener Repairer Family Medicine 10/31/23 Yasmin Ho MD [address] [place] [address] Gastroenterology 08/29/24 Manuel Carpenter PA [facility] 55 [facility] [address] Neurology 08/29/24 Paola Tolentino NP [address] [address] Endocrinology 10/24/24 [facility] Psychology Psychology 12/19/24 documented as of this encounter
--- OUTSIDE RECORDS SUMMARY | 2025-09-26 09:44 | XMS_ITS | Encounter Summary ---
Author Organization [employer] Address 75 [facility] 7t [place] [address] Care Team Providers Care Clock And Watch Hands Painter Name Role Phone Sammie Maharaj MD Primary Care Provider +1- [phone] Loyda Glaser RN Unavailable [phone] Yasmin Ho MD Unavailable [phone] Reason for Visit * Reason Onset Date Comments Durable Medical Equipment 09/24/2025 DME: I ncontinence Supplies Encounter Details Date Type Department Care Team ([facility] st Contact Info) Description 09/24/2025 Telephone [facility] MEDICINE 230 [place] [address] Sammie Maharaj MD 230 [place] [address] Durable Medical Equipment (DME: Incontinence Supplies) Social History Tobacco Use Types Packs/Day Years [...] encounter Miscellaneous Notes * Telephone Encounter - Nancy Connolly - 09/25/2025 10:08 AM EST DME order for Diapers and Gloves was generated and uploaded to [employer] [facility] Once Application Helper was informed via Message. 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 pt PHILOSOPHY SPECIALIST requesting a DME order for diapers sz xsmall or small , gloves sz large, bed pads and masks -Contact Laxmi at [phone] (mozambican) documented in this encounter Plan of Treatment Upcoming Encounters Date Type Department Care Team ([facility] st Contact Info) Description 10/09/2025 10:15 AM EST Office Visit [facility] [address] [place] [address] Miriam Shipman MD 230 [place] [address] 11/07/2025 9:15 AM EST Office Visit [facility] 230 [place] [address] Sammie Maharaj MD [address] [place] [address] documented as of this encounter Visit Diagnoses Not on filedocumented in this encounter Additional Health Concerns Assessment Noted Time PHQ-9 Depression Total Score: 0 10/24/19 9:33 AM EST documented as of this encounter Care Teams Clock And Watch Hands Painter Relationship Specialty Start Date End Date Sammie Maharaj MD [address] [place] [address] PCP - General Family Medicine 10/10/18 Loyda Glaser RN [address] [place] [address] Tilt Wall Supervisor Family Medicine 10/31/23 Yasmin Ho MD [address] [place] [address] Gastroenterology 08/29/24 Manuel Carpenter PA [facility] 55 [facility] [address] Neurology 08/29/24 Paola Tolentino NP [address] [address] Endocrinology 10/24/24 [facility] Psychology Psychology 12/19/24 documented as of this encounter
--- OUTSIDE RECORDS SUMMARY | 2025-09-26 09:44 | XMS_ITS | Encounter Summary ---
Author Organization [employer] Address [address] [facility] [address] 7t [place] [address] Care Team Providers Care Bisque Kiln Placer Name Role Phone Sammie Maharaj MD Primary Care Provider [phone]- [phone] Loyda Glaser RN Unavailable [phone] Yasmin Ho MD Unavailable [phone] Reason for Visit * Reason Onset Date Comments Durable Medical Equipment 09/24/2025 Encounter Details Date Type Department Care Team (Late st Contact Info) Description 09/24/2025 Telephone [facility] MEDICINE 230 [place] [address] Sammie Maharaj MD 230 [place], [place] [phone] Durable Medical Equipment Social History Tobacco Use Types Packs/Day Years [...] encounter Miscellaneous Notes * Telephone Encounter - Kaye Andersen - 09/24/2025 2:35 PM EST Tc from Laxmi Sheehan pt SHELL MAKER LOCKSTITCH stating pt had a liver transplant and was discharged yesterday she is requesting a DME order for recliner , she states contacted insurance and they advised needing pcp order Contact at [phone] documented in this encounter Plan of Treatment Upcoming Encounters Date Type Department Care Team (Late st Contact Info) Description 10/09/2025 10:15 AM EST Office Visit [address] [address] Miriam Shipman MD [address] [place] [address] 11/07/2025 9:15 AM EST Office Visit [address] [phone] Sammie Maharaj MD [address] [place] [address] [phone] documented as of this encounter Visit Diagnoses Not on filedocumented in this encounter Additional Health Concerns Assessment Noted Time PHQ-9 Depression Total Score: 0 10/24/19 25 9:33 AM EST documented as of this encounter Care Teams Bisque Kiln Placer Relationship Specialty Start Date End Date Sammie Maharaj MD 230 [place] [address] PCP - General Family Medicine 10/10/18 Loyda Glaser, ERVIN 230 [place] [address] Boom Stick Worker Family Medicine 10/31/23 Yasmin Ho MD 55 [place], [place] [phone] Gastroenterology 08/29/24 Manuel Carpenter PA [facility] 55 [facility] [address] Neurology 08/29/24 Paola Tolentino NP [facility] 291 [facility] [address] Endocrinology 10/24/24 [facility] Psychology Psychology 12/19/24 documented as of this encounter
--- OUTSIDE RECORDS SUMMARY | 2025-09-26 09:44 | XMS_ITS | Patient Health Record ---
Author Organization [facility] Address [address] [place] [address] Care Team Providers Care Kiln Hand Name Role Phone Sammie Maharaj MD Primary Care Provider Peggy vailable Varun Lou Unavailable [phone] Reason For Referral No Information Medications Medication SIG (Take, Route, Fr equency, Duration) Notes Start Date End Date Status Omeprazole 40mg Ac tive Nadolol 40mg Activ e Social History Section Notes: She does not smoke nor use a ny alcohol Problems Problem Type SNOMED Code ICD Code Onset Dates Problem Status W/U Status Risk Notes Problem Anemia (567498468) Unspecified anemia (285.9) Active confirmed Problem Esophageal varices without bleeding (95622952) Esophageal varices without mention of bleeding (456.1) Active confirmed Problem Ascites (453017032) Ascites, other (789.59) Active confirmed Problem Liver function tests abnormal (606012778) Nonspecific abnormal results of liver function study (794.8) Active confirmed Plan Of Treatment Pending Test Test Name Order Date CHEM 7 PROFILE 07/16/2011 CHEM 7 PROFILE 09/15/2011 LIVER PROFILE 09/15/2011 CBC w DIFF 07/16/2011 CBC w DIFF 09/15/2011 PROTHROMBIN TIME (PT, INR) 09/15/2011 Insurance Providers Payer Name Payer Address Payer Phone Subscriber Number Group Number Insured Name Patient Relationship to Insured Coverage Start Date Coverage End Date MEDICAID OF [facility] [address] [place] [phone] [id number] BROOK MARIA Self - patient is the insured Medical (General) History Medical History History ICD Code 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
--- OUTSIDE RECORDS SUMMARY | 2025-09-26 09:44 | XMS_ITS | Encounter Summary ---
Author Organization [employer] Address [address] 7t [place] [address] Care Team Providers Care Quality Assurance Qa Lab Technician Name Role Phone Sammie Maharaj MD Primary Care Provider [phone]- [phone] Loyda Glaser RN Unavailable [phone] Yamsin Ho MD Unavailable [phone] Reason for Visit * Reason Onset Date Comments verbal orders 09/25/2025 Encounter Details Date Type Department Care Team ([facility] st Contact Info) Description 09/25/2025 Telephone [facility] MEDICINE 230 [place] [address] Sammie Maharaj MD 230 [place], [place] [phone] verbal orders Social History Tobacco Use Types Packs/Day Years [...] encounter Miscellaneous Notes * Telephone Encounter - Loyda Glaser RN - 09/25/2025 11:29 AM EST Telephone call returned to Laxmi from [facility]. No answer, left v/m. * Telephone Encounter - Kaye Andersen - 09/25/2025 9:38 AM EST Tc from Laxmi Crain at [facility] requesting verbal orders for home PT Contact Laxmi at [phone] documented in this encounter Plan of Treatment Upcoming Encounters Date Type Department Care Team (Late st Contact Info) Description 10/09/2025 10:15 AM EST Office Visit [facility] MEDICINE [address] [place] [address] Miriam Shipman MD 230 [place] [address] 11/07/2025 9:15 AM EST Office Visit [facility] MED[facility]INE 230 [place] [address] Sammie Maharaj MD 230 [place] [address] documented as of this encounter Visit Diagnoses Not on filedocumented in this encounter Additional Health Concerns Assessment Noted Time PHQ-9 Depression Total Score: 0 10/24/19 9:33 AM EST documented as of this encounter Care Teams Quality Assurance Qa Lab Technician Relationship Specialty Start Date End Date Sammie Maharaj MD [address] [place] [address] PCP - General Family Medicine 10/10/18 Loyda Glaser RN [address] [place] [address] Advertising Space Clerk Family Medicine 10/31/23 Yasmin Ho MD [address] [place] [address] Gastroenterology 08/29/24 Manuel Carpenter PA [address] [address] Neurology 08/29/24 Paola Tolentino NP [address] [address] Endocrinology 10/24/24 [facility] Psychology Psychology 12/19/24 documented as of this encounter
--- OUTSIDE RECORDS SUMMARY | 2025-09-26 09:44 | XMS_ITS | Encounter Summary ---
Author Organization [employer] Address [address] [facility] [address] [facility] [address] 7t [place] [address] Care Team Providers Care Tire Mold Tester Name Role Phone Sammie Maharaj MD Primary Care Provider +1- [phone] Loyda Glaser RN Unavailable [phone] Yasmin Ho MD Unavailable [phone] Reason for Visit * Reason Onset Date Comments Durable Medical Equipment 09/25/2025 Encounter Details Date Type Department Care Team (Late st Contact Info) Description 09/25/2025 Telephone [facility] MED[facility]INE 230 [place] [address] Sammie Maharaj MD 230 [place], [place] [phone] Durable Medical Equipment Social History Tobacco Use [...] Telephone Encounter - Kaye Andersen - 09/25/2025 9:40 AM EST Tc from Laxmi Preston requesting a DME order for a scale and a long handle shower spray Contact Laxmi julio [phone] documented in this encounter Plan of Treatment Upcoming Encounters Date Type Department Care Team (Late st Contact Info) Description 10/09/2025 10:15 AM EST Office Visit [facility] MEDICINE [address] [place] [address] Miriam Shipman MD [address] [place] [address] 11/07/2025 9:15 AM EST Office Visit [facility] MEDICINE [address] [place] [address] [phone] Sammie Maharaj MD [address] [place] [address] [phone] documented as of this encounter Visit Diagnoses Not on filedocumented in this encounter Additional Health Concerns Assessment Noted Time PHQ-9 Depression Total Score: 0 10/24/19 9:33 AM EST documented as of this encounter Care Teams Tire Mold Tester Relationship Specialty Start Date End Date Sammie Maharaj MD 230 [place] [address] PCP - General Family Medicine 10/10/18 Loyda Glaser, ERVIN 230 [place] [address] Agricultural Extension Educator Family Medicine 10/31/23 Yasmin Ho MD 55 [place] [address] Gastroenterology 08/29/24 Manuel Carpenter PA [facility] 55 [facility] [address] Neurology 08/29/24 Paola Tolentino, MASTER SHEET CLERK [address] [address] Endocrinology 10/24/24 [facility] Psychology Psychology 12/19/24 documented as of this encounter
--- OUTSIDE RECORDS SUMMARY | 2025-09-26 09:44 | XMS_ITS | Encounter Summary ---
Author Organization [employer] Address [address] [facility] 7t [place] [address] Care Team Providers Care Take Away Man Name Role Phone Sammie Maharaj MD Primary Care Provider +1- [phone] Loyda Glaser RN Unavailable [phone] Yasmin Ho MD Unavailable [phone] Reason for Visit * Reason Onset Date Comments Care Coordination 09/20/2025 Results 09/20/2025 Encounter Details Date Type Department Care Team ([facility] st Contact Info) Description 09/20/2025 Telephone [facility] MEDICINE [address] [place] [address] Sammie Maharaj MD [address] [place], [place] [phone] Care Coordination; Results Social History Tobacco Use Types Packs/Day Years [...] Miscellaneous Notes * Telephone Encounter - Isabella Miranda RN - 09/23/2025 2:26 PM EST Telephone call received from Brisa affiliate marketing coordinator at [facility]. They are aware of Hep B viral [...] HDF 10/09/25 (also has PCP appointment 10/02/25) Future Appointments Date Time Provider Department Center 10/02/2025 9:30 AM Sammie Maharaj MD MEDICINE [facility] 10/09/2025 10:15 AM Miriam Rendon MD MEDICINE [facility] * Telephone Encounter - Isabella Miranda RN - 09/23/2025 1:55 PM EST Called [facility] liver transplant clinic, left message with Maria L asking for call back from liver affiliate marketing coordinator regarding below result ([phone]). Faxed to [phone], confirmation received. * Telephone Encounter - Sammie Maharaj MD - 09/20/2025 7:58 PM EST Patient had recent liver transplant. 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 I do not know who ordered but I do not see any mention of the positive result in her [facility] notes. I am wondering if it was drawn in [place] and they did not get the result? Can you please call [facility] liver clinic and fax and confirm they have the positive Hep B dna result. You may need to speak with one ofthe nurses in the liver transplant clinic. They may be aware but I don't see the result in their notes. Thank you. documented in this encounter Plan of Treatment Upcoming Encounters Date Type Department Care Team (Late st Contact Info) Description 10/09/2025 10:15 AM EST Office Visit [facility] [address] [place] [address] Miriam Shipman MD [address] [place] [address] 11/07/2025 9:15 AM EST Office Visit [facility] [address] [place] [address] Sammie Mahraaj MD [address] [place] [address] documented as of this encounter Visit Diagnoses Not on filedocumented in this encounter Additional Health Concerns Assessment Noted Time PHQ-9 Depression Total Score: 0 10/24/19 25 9:33 AM EST documented as of this encounter Care Teams Take Away Man Relationship Specialty Start Date End Date Sammie Maharaj MD [address] [place] [address] PCP - General Family Medicine 10/10/18 Loyda Glaser, RN 230 [place] [address] Statistical Clerk Family Medicine 10/31/23 Yasmin Ho MD 55 [place] [address] Gastroenterology 08/29/24 Manuel Carpenter PA [facility] [address] Neurology 08/29/24 Paola Tolentino, SOURCING SPECIALIST [address] [address] Endocrinology 10/24/24 [facility] Psychology Psychology 12/19/24 documented as of this encounter
--- OUTSIDE RECORDS SUMMARY | 2025-09-26 09:44 | XMS_ITS | Encounter Summary ---
Author Organization [employer] Address [address] [facility] [address] 7t [place] [address] Care Team Providers Care Asbestos Shingle Inspector Name Role Phone Sammie Maharaj MD Primary Care Provider +1- [phone] Loyda Glaser RN Unavailable [phone] Yasmin Ho MD Unavailable [phone] Encounter Details Date Type Department Care Team (Late st Contact Info) Description 09/20/2025 Telephone [facility] MEDICINE [address] [place] [address] Sammie Maharaj MD 230 [place] [address] Social History Tobacco Use Types Packs/Day Years [...] Encounter - Sammie Maharaj MD - 09/20/2025 8:01 PM EST See telephone call documented in this encounter Plan of Treatment Upcoming Encounters Date Type Department Care Team (Late st Contact Info) Description 10/09/2025 10:15 AM EST Office Visit [facility] MEDICINE [address] [place] [address] Miriam Shipman MD [address] [place] [address] 11/07/2025 9:15 AM EST Office Visit [facility] MEDICINE [address] [place] [address] Sammie Maharaj MD [address] [place] [address] documented as of this encounter Visit Diagnoses Not on filedocumented in this encounter Additional Health Concerns Assessment Noted Time PHQ-9 Depression Total Score: 0 10/24/19 25 9:33 AM EST documented as of this encounter Care Teams Asbestos Shingle Inspector Relationship Specialty Start Date End Date Sammie Maharaj MD [address] [place] [address] PCP - General Family Medicine 10/10/18 Loyda Glaser, ERVIN [address] [place] [address] Economic Forecaster Family Medicine 10/31/23 Yasmin Ho MD 55 [place] [address] Gastroenterology 08/29/24 Manuel Carpenter PA [facility] 55 [facility] [address] Neurology 08/29/24 Paola Tolentino, CUSTOMS ENTRY CLERK [address] [address] Endocrinology 10/24/[address] [facility] Psychology Psychology 12/19/24 documented as of this encounter
--- OUTSIDE RECORDS SUMMARY | 2025-09-26 09:44 | XMS_ITS | Encounter Summary ---
Author Organization [employer] Address [address] [facility] [address] 7t [place] [address] Care Team Providers Care Cell Reliner Name Role Phone Sammie Maharaj MD Primary Care Provider +1- [phone] Loyda Glaser RN Unavailable [phone] Yasmin Ho MD Unavailable [phone] Reason for Visit * Reason Onset Date Comments call back 08/22/2025 Encounter Details Date Type Department Care Team ([facility] st Contact Info) Description 08/22/2025 Telephone [facility] MEDICINE 230 [place], [place] [phone] Sammie Maharaj MD 230 [place], [place] [phone] call back Social History Tobacco Use Types Packs/Day Years [...] Telephone Encounter - Isabella Miranda RN - 08/23/2025 11:53 AM EST Pt's daughter not on HIPAA, sister in law Laxmi Mas is on HIPAA. Returned call to JR (main number in chart), no answer, left voicemail in the chart to call back if anything is needed. * Telephone Encounter - Amy Tavares - 08/22/2025 1:51 PM EST Tc from pt???s daughter reporting that the pt had a liver transplant on Tuesday night. Daughter is requesting a call back. Contact pt at [phone] documented in this encounter Plan of Treatment Upcoming Encounters Date Type Department Care Team (Late st Contact Info) Description 10/09/2025 10:15 AM EST Office Visit [facility] MEDICINE [address] [place] [address] Miriam Shipman MD 230 [place] [address] 11/07/2025 9:15 AM EST Office Visit [facility] MEDICINE 230 [place] [address] Sammie Maharaj MD 230 [place] [address] documented as of this encounter Visit Diagnoses Not on filedocumented in this encounter Additional Health Concerns Assessment Noted Time PHQ-9 Depression Total Score: 0 10/24/19 9:33 AM EST documented as of this encounter Care Teams Cell Reliner Relationship Specialty Start Date End Date Sammie Maharaj MD [address] [place] [address] PCP - General Family Medicine 10/10/18 Loyda Glaser, ERVIN [address] [place] [address] Last Dipper Family Medicine 10/31/23 Yasmin Ho MD [address] [place] [address] Gastroenterology 08/29/24 Manuel Carpenter PA [address] [address] Neurology 08/29/24 Paola Tolentino NP [address] [address] Endocrinology 10/24/24 [facility] Psychology Psychology 12/19/24 documented as of this encounter
--- OUTSIDE RECORDS SUMMARY | 2025-09-26 09:44 | XMS_ITS | Encounter Summary ---
Author Organization [employer] Address [address] [place] [address] 7t [place] [address] Care Team Providers Care Adhesive Sprayer Name Role Phone Sammie Maharaj MD Primary Care Provider [phone]- [phone] Loyda Glaser RN Unavailable [phone] Yasmin Ho MD Unavailable Encounter Details Date Type Department Care Team (Late st Contact Info) Description 11/11/2022 Abstract [facility] MEDICINE [address] [place] [address] [phone] Sammie Maharaj MD [address] [place] [address] [phone] Social History Tobacco Use Types Packs/Day Years [...] Description 10/09/2025 10:15 AM EST Office Visit [facility] MEDICINE [address] [place] [address] [phone] Miriam Shipman MD [address] [place] [address] [phone] 11/07/2025 9:15 AM EST Office Visit [address] [phone] Sammie Maharaj MD [address] [place] [address] documented as of this encounter Procedures Procedure Name Priority Date/Time Associated Diagnosis Comments PAP SMEAR Routine 03/25/2021 12:00 AM EDT documented in this encounter Results * Pap Smear (03/25/2021 12:00 AM EDT) Swab us Historical Provider LAB CYTOLOGY ORDERABLES F inal Result IMAGING documented in this encounter Visit Diagnoses Not on filedocumented in this encounter Care Teams Adhesive Sprayer Relationship Specialty Start Date End Date Sammie Maharaj MD [address] [place] [address] PCP - General Family Medicine 10/10/18 Loyda Glaser, ERVIN [address] [place] [address] Behavior Therapist Family Medicine 10/31/23 Yasmin Ho MD [address] [place] [address] Gastroenterology 08/29/24 Manuel Carpenter PA [facility] [address] Neurology 08/29/24 Paola Tolentino NP [address] [address] Endocrinology 10/24/24 [facility] Psychology Psychology 12/19/24 documented as of this encounter
--- OUTSIDE RECORDS SUMMARY | 2025-09-26 09:45 | XMS_ITS | Encounter Summary ---
Author Organization [employer] Address [address] [facility] [address] 7t [place] [address] Care Team Providers Care Hole Filler Name Role Phone Sammie Maharaj MD Primary Care Provider +1- [phone] Loyda Glaser RN Unavailable [phone] Yasmin Ho MD Unavailable [phone] Reason for Visit * Reason Comments Med Refill Encounter Details Date Type Department Care Team (Late st Contact Info) Description 10/25/2023 Refill [facility] 230 [place], [place] [phone] Sammie Maharaj MD 230 [place], [place] [phone] Microcytic anemia Social History Tobacco Use Types [...] 10/09/2025 10:15 AM EST Office Visit [address] [address] Miriam Shipman MD [address] [place] [address] 11/07/2025 9:15 AM EST Office Visit [address] [address] Sammie Maharaj MD [address] [place] [address] documented as of this encounter Visit Diagnoses Diagnosis Microcytic anemia Unspecified iron deficiency anemia documented in this encounter Additional Health Concerns Assessment Noted Time PHQ-9 Depression Total Score: 0 07/28/20 23 9:42 AM EDT documented as of this encounter Care Teams Hole Filler Relationship Specialty Start Date End Date Sammie Maharaj MD [address] [place] [address] PCP - General Family Medicine 10/10/18 Loyda Glaser, ERVIN 230 [place] [address] Cavalry Scout Family Medicine 10/31/23 Yasmin Ho MD [address] [place] [address] [phone] Gastroenterology 08/29/24 Manuel Carpenter PA [facility] 55 [facility] [address] Neurology 08/29/24 Paola Tolentino, FIRE SYSTEMS INSPECTOR [address] [address] Endocrinology 10/24/24 [facility] Psychology Psychology 12/19/24 documented as of this encounter
[2025-09-26 09:49] LABS: INTERNATIONAL NORM RATIO 1.1 (0.9-1.1); Prothrombin Time 13.0 SEC (11.2-13.5)
[2025-09-26 10:08] LABS: Alanine Aminotransferase 266 U/L (0-31); Albumin Level 4.0 g/dL (3.5-5.0); Alkaline Phosphatase 287 U/L (39-117); Anion Gap 12 (12-20); Aspartate Amino Transferase 96 U/L (5-31); Blood Urea Nitrogen 35 mg/dL (9-16); Calcium 9.6 mg/dL (8.4-10.2); Carbon Dioxide 27 mmol/L (22-29); Chloride 101 mmol/L (96-108); Estimated Glomerular Filt Rate > 60; Magnesium 1.9 mg/dL (1.6-2.6); Potassium 4.4 mmol/L (3.3-5.1); Sodium 136 mmol/L (135-145); Total Protein 7.9 g/dL (6.5-8.0)
[2025-09-27 05:29] LABS: Tacrolimus Prograf 6.2 mcg/L
== END 2025-09-26 08:55 | disposition home or self-care (01) ==
LOC: HO.LABR 08:54
PROVIDERS: PCP Internal Medicine; Visit Provider Internal Medicine Gastroenterology
DX: Z94.4 Liver transplant status (principal); D84.9 Immunodeficiency, unspecified; Z01.84 Encounter for antibody response examination
CPT/HCPCS: 36415; 80053; 80197; 83735; 84100; 85025; 85610; 86644; 86645

== ENCOUNTER 2025-09-30 08:39 | Outpatient (REF) | payer OTHER, SELFPAY ==
[2025-09-30 08:55] LABS: MANUAL DIFF FLAG NO
--- OUTSIDE RECORDS SUMMARY | 2025-09-30 09:01 | XMS_ITS | Encounter Summary ---
Author Organization [employer] Address [address] 7t [place] [address] Care Team Providers Care Pharmacognosy Teacher Name Role Phone Sammie Maharaj MD Primary Care Provider [phone]- [phone] Loyda Glaser RN Unavailable [phone] Yasmin Ho MD Unavailable [phone] Reason for Visit * Reason Comments Med Refill Encounter Details Date Type Department Care Team (Late st Contact Info) Description 12/25/[address] [facility] 230 [place], [place] [phone] Sammie Maharaj MD 230 [place], [place] [phone] Tinea unguium Social History Tobacco Use Types [...] Description 10/09/2025 10:15 AM EST Office Visit [address] [address] Miriam Shipman MD [address] [place] [address] 11/07/2025 9:15 AM EST Office Visit [address] [address] Sammie Maharaj MD [address] [place] [address] [phone] documented as of this encounter Visit Diagnoses Diagnosis Tinea unguium Dermatophytosis of nail documented in this encounter Additional Health Concerns Assessment Noted Time PHQ-9 Depression Total Score: 0 10/24/19 25 9:33 AM EST documented as of this encounter Care Teams Pharmacognosy Teacher Relationship Specialty Start Date End Date Sammie Maharaj MD [address] [place] [address] PCP - General Family Medicine 10/10/18 Loyda Glaser, RN [address] [place] [address] [place] [address] Chip Person Family Medicine 10/31/23 Yasmin Ho MD [address] [place] [address] Gastroenterology 08/29/24 Manuel Carpenter PA [facility] 55 [facility] [address] Neurology 08/29/24 Paola Tolentino NP [address] [address] Endocrinology 10/24/24 [facility] Psychology Psychology 12/19/24 documented as of this encounter
--- OUTSIDE RECORDS SUMMARY | 2025-09-30 09:01 | XMS_ITS | Encounter Summary ---
Author Organization [employer] Address [address] [facility] [address] 7t [place] [address] Care Team Providers Care Electrical Unit Rebuilder Name Role Phone Sammie Maharaj MD Primary Care Provider [phone]- [phone] Loyda Glaser RN Unavailable [phone] Yasmin Ho MD Unavailable [phone] Reason for Visit * Reason Comments Med Refill Encounter Details Date Type Department Care Team (Late st Contact Info) Description 03/13/2025 Refill [facility] 230 [place], [place] [phone] Sammie Maharaj MD 230 [place], [place] [phone] Tinea unguium Social History Tobacco Use Types [...] Description 10/09/2025 10:15 AM EST Office Visit [address] [address] Miriam Shipman MD [address] [place] [address] 11/07/2025 9:15 AM EST Office Visit [address] [address] Sammie Maharaj MD [address] [place] [address] [phone] documented as of this encounter Visit Diagnoses Diagnosis Tinea unguium Dermatophytosis of nail documented in this encounter Additional Health Concerns Assessment Noted Time PHQ-9 Depression Total Score: 0 10/24/19 25 9:33 AM EST documented as of this encounter Care Teams Electrical Unit Rebuilder Relationship Specialty Start Date End Date Sammie Maharaj MD [address] [place] [address] PCP - General Family Medicine 10/10/18 Loyda Glaser, RN [address] [place] [address] [place] [address] Industrial Registered Nurse Family Medicine 10/31/23 Yasmin Ho MD [address] [place] [address] Gastroenterology 08/29/24 Manuel Carpenter PA [facility] 55 [facility] [address] Neurology 08/29/24 Paola Tolentino NP [address] [address] Endocrinology 10/24/24 [facility] Psychology Psychology 12/19/24 documented as of this encounter
--- OUTSIDE RECORDS SUMMARY | 2025-09-30 09:01 | XMS_ITS | Encounter Summary ---
Author Organization [employer] Address [address] [facility] [address] [place] [address] Care Team Providers Care Edging Machine Feeder Name Role Phone Sammie Maharaj MD Primary Care Provider [phone]- [phone] Loyda Glaser RN Unavailable [phone] Yasmin Ho MD Unavailable [phone] Reason for Visit * Reason Comments Med Refill Encounter Details Date Type Department Care Team (Late st Contact Info) Description 11/13/2024 Refill [facility] 230 [place], [place] [phone] Sammie Maharaj MD 230 [place], [place] [phone] Tinea unguium Social History Tobacco Use Types [...] Description 10/09/2025 10:15 AM EST Office Visit [address] [address] Miriam Shipman MD [address] [place] [address] 11/07/2025 9:15 AM EST Office Visit [address] [address] Sammie Maharaj MD [address] [place] [address] [phone] documented as of this encounter Visit Diagnoses Diagnosis Tinea unguium Dermatophytosis of nail documented in this encounter Additional Health Concerns Assessment Noted Time PHQ-9 Depression Total Score: 0 10/24/19 25 9:33 AM EST documented as of this encounter Care Teams Edging Machine Feeder Relationship Specialty Start Date End Date Sammie Maharaj MD [address] [place] [address] PCP - General Family Medicine 10/10/18 Loyda Glaser, RN [address] [place] [address] [place] [address] Electronic Controls Repairer Supervisor Family Medicine 10/31/23 Yasmin Ho MD [address] [place] [address] Gastroenterology 08/29/24 Manuel Carpenter PA [facility] [address] Neurology 08/29/24 Paola Tolentino NP [address] [address] Endocrinology 10/24/24 [facility] Psychology Psychology 12/19/24 documented as of this encounter
--- OUTSIDE RECORDS SUMMARY | 2025-09-30 09:02 | XMS_ITS | Encounter Summary ---
Author Organization [employer] Address [address] [facility] [address] 7t [place] [address] Care Team Providers Care Checking Clerk Name Role Phone Sammie Maharaj MD Primary Care Provider [phone]- [phone] Loyda Glaser RN Unavailable [phone] Yasmin Ho MD Unavailable [phone] Encounter Details Date Type Department Care Team (Late st Contact Info) Description 05/28/2025 Abstract [facility] MEDICINE 230 [place] [address] Laya Azul [place] Social History Tobacco Use Types Packs/Day Years Used Date Smoking Tobacco: Never Smokeless Tobacco: Never Depression Answer Date Recorded Patient Health Questionnaire-9 Score 0 10/24/2024 Patient Health Questionnaire-9 Score 0 10/24/2024 Last PHQ-9: Questionnaire Data Not on file 0 10/24/2024 Housing Stability Answer Date Recorded What is your housing situation today? I have concepcionurpal marie 10/24/[address] you [...] t he electric, gas, oil or water [employer]ureau threatened to shut off services in your [...] Description 10/09/2025 10:15 AM EST Office Visit [address] [phone] Miriam Shipman MD [address] [place] [address] [phone] 11/07/2025 9:15 AM EST Office Visit [address] [address] Sammie Maharaj MD [address] [place] [address] [phone] documented as of this encounter Procedures Procedure [...] documented as of this encounter Care Teams Checking Clerk Relationship Specialty Start Date End Date Sammie Maharaj MD [address] [place] [address] [place] [address] PCP - General Family Medicine 10/10/18 Loyda Glaser, RN 230 [place] [address] Catalyst Unit Operator Family Medicine 10/31/23 Yasmin Ho MD 55 [place], [place] [phone] Gastroenterology 08/29/24 Manuel Carpenter PA [facility] [address] Neurology 08/29/24 Paola Tolentino, BOTTLE SORTER [address] [address] Endocrinology 10/24/24 [facility] Psychology Psychology 12/19/24 documented as of this encounter
--- OUTSIDE RECORDS SUMMARY | 2025-09-30 09:02 | XMS_ITS | Encounter Summary ---
Author Organization [employer] Address [address] [facility] [address] 7t [place] [address] Care Team Providers Care Rigger Apprentice Name Role Phone Sammie Maharaj MD Primary Care Provider [phone]- [phone] Loyda Glaser RN Unavailable [phone] Yasmin Ho MD Unavailable [phone] Reason for Visit * Reason Comments Med Refill Encounter Details Date Type Department Care Team (Late st Contact Info) Description 10/24/2024 Refill [facility] 230 [place], [place] [phone] Sammie Maharaj MD 230 [place], [place] [phone] Microcytic anemia Social History Tobacco Use Types [...] Description 10/09/2025 10:15 AM EST Office Visit [facility] MEDICINE [address] [place] [address] Miriam Shipman MD [address] [place] [address] 11/07/2025 9:15 AM EST Office Visit [address] [address] Sammie Maharaj MD [address] [place] [address] documented as of this encounter Visit Diagnoses Diagnosis Microcytic anemia Unspecified iron deficiency anemia documented in this encounter Additional Health Concerns Assessment Noted Time PHQ-9 Depression Total Score: 0 10/24/19 25 9:33 AM EST documented as of this encounter Care Teams Rigger Apprentice Relationship Specialty Start Date End Date Sammie Maharaj MD [address] [place] [address] PCP - General Family Medicine 10/10/18 Loyda Glaser RN [address] [place] [address] Billing Clinician Family Medicine 10/31/23 Yasimn Ho MD [address] [place] [address] [phone] Gastroenterology 08/29/24 Manuel Carpenter PA [address] [address] Neurology 08/29/24 Paola Tolentino NP [address] [address] Endocrinology 10/24/24 [facility] Psychology Psychology 12/19/24 documented as of this encounter
--- OUTSIDE RECORDS SUMMARY | 2025-09-30 09:02 | XMS_ITS | Encounter Summary ---
Author Organization [employer] Address [address] [facility] [address] 7t [place] [address] Care Team Providers Care Supervisor Mattress And Boxsprings Name Role Phone Sammie Maharaj MD Primary Care Provider [phone]- [phone] Loyda Glaser RN Unavailable [phone] Yasmin Ho MD Unavailable Reason for Visit * Reason Onset Date Comments Nurse Triage 03/22/2023 Encounter Details Date Type Department Care Team (Late st Contact Info) Description 03/22/2023 Telephone [facility] MEDICINE 230 [place] [address] Sammie Maharaj MD 230 [place], [place] [phone] Nurse Triage Social History Tobacco Use Types [...] 03/22/2023 2:01 PM EDT Triage call with [employer]. [employer] [place] [id number] Pt didn't answer left message to call [facility] triage line at [phone]. Triage call with [employer]isher [place] [id number] Pt answered, Pt wasn't able to say birthday to confirm, Pt did confirm was aubrei lu. Pt denied calling and reports it [...] Description 10/09/2025 10:15 AM EST Office Visit [address] [address] Miriam Shipman MD [address] [place] [address] 11/07/2025 9:15 AM EST Office Visit [address] [address] Sammie Maharaj MD [address] [place] [address] documented as of this encounter Visit Diagnoses Not on filedocumented in this encounter Care Teams Supervisor [employer]ress And Boxsprings Relationship Specialty Start Date End Date Sammie Maharaj MD [address] [place] [address] PCP - General Family Medicine 10/10/18 Loyda Glaser, ERVIN [address] [place] [address] Glassworker Family Medicine 10/31/23 Yasmin Ho MD [address] [place] [address] Gastroenterology 08/29/24 Manuel Carpenter PA [address] [address] Neurology 08/29/24 Paola Tolentino NP [address] [address] Endocrinology 10/24/24 [facility] Psychology Psychology 12/19/24 documented as of this encounter
--- OUTSIDE RECORDS SUMMARY | 2025-09-30 09:02 | XMS_ITS | Encounter Summary ---
Author Organization [employer] Address [address] [place] [address] Care Team Providers Care Collection Agent Name Role Phone Sammie Maharaj MD Primary Care Provider [phone] Loyda Glaser RN Unavailable [phone] Yasmin Ho MD Unavailable [phone] Reason for Visit * Reason Comments Med Refill Encounter Details Date Type Department Care Team (Late st Contact Info) Description 11/18/2023 Refill [facility] [address] [place] [address] Tara Carlisle, ENTERPRISE CLOUD ARCHITECT Tinea unguium Social History Tobacco Use Types [...] Description 10/09/2025 10:15 AM EST Office Visit [address] [address] Miriam Shipman MD [address] [place] [phone] 11/07/2025 9:15 AM EST Office Visit [address] [address] Sammie Maharaj MD [address] [place] [phone] documented as of this encounter Visit Diagnoses Diagnosis Tinea unguium Dermatophytosis of nail documented in this encounter Additional Health Concerns Assessment Noted Time PHQ-9 Depression Total Score: 0 07/28/20 23 9:42 AM EDT documented as of this encounter Care Teams Collection Agent Relationship Specialty Start Date End Date Sammie Maharaj MD [address] [place] [phone] PCP - General Family Medicine 10/10/18 Loyda Glaser, ERVIN [address] [place] [phone] Office Engineer Family Medicine 10/31/23 Yasmin Ho MD [address] [place] [phone] Gastroenterology 08/29/24 Manuel Carpenter PA [address] [address] Neurology 08/29/24 Paola Tolentino NP [address] [address] Endocrinology 10/24/24 [facility] Psychology Psychology 12/19/24 documented as of this encounter
--- OUTSIDE RECORDS SUMMARY | 2025-09-30 09:02 | XMS_ITS | Encounter Summary ---
Author Organization [employer] Address [address] [place] [address] Care Team Providers Care Radiology Technologist Name Role Phone Sammie Maharaj MD Primary Care Provider [phone] Loyda Glaser RN Unavailable [phone] Yasmin Ho MD Unavailable [phone] Reason for Visit * Reason Onset Date Comments Appointment Request 10/20/2023 Encounter Details Date Type Department Care Team ([facility] st Contact Info) Description 10/20/2023 Telephone [facility] [address] [place], [place] [phone] Sammie Maharaj MD [address] [place], [place] [phone] Appointment Request Social History Tobacco Use Types [...] and reschedule appt for 11/03/2023 @ 9:30 designer/writer did cancel per patients request documented in this encounter Plan of Treatment Upcoming Encounters Date Type Department Care Team (Late st Contact Info) Description 10/09/2025 10:15 AM EST Office Visit [facility] [address] [place] [phone] Miriam Shipman MD [address] [place] [phone] 11/07/2025 9:15 AM EST Office Visit [facility] [address] [place] [phone] Sammie Maharaj MD [address] [place] [phone] documented as of this encounter Visit Diagnoses Not on filedocumented in this encounter Additional Health Concerns Assessment Noted Time PHQ-9 Depression Total Score: 0 07/28/20 23 9:42 AM EDT documented as of this encounter Care Teams Radiology Technologist Relationship Specialty Start Date End Date Sammie Maharaj MD [address] [place] [address] [place] [address] PCP - General Family Medicine 10/10/18 Loyda Glaser, RN [address] [place] [address] Vp Delivery Family Medicine 10/31/23 Yasmin Ho MD [address] [place], [place] [phone] Gastroenterology 08/29/24 Manuel Carpenter PA [facility] [address] [facility] [address] Neurology 08/29/24 Paola Tolentino, WET MACHINE CUTTER [address] [address] Endocrinology 10/24/24 [email or web address] Psychology Psychology 12/19/24 documented as of this encounter
--- OUTSIDE RECORDS SUMMARY | 2025-09-30 09:02 | XMS_ITS | Encounter Summary ---
Author Organization [employer] Address [address] [facility] [address] [place] [address] Care Team Providers Care Design Engineer Products Name Role Phone Sammie Maharaj MD Primary Care Provider [phone] Loyda Glaser RN Unavailable [phone] Yasmin Ho MD Unavailable Encounter Details Date Type Department Care Team (Late st Contact Info) Description 05/16/2023 Orders Only [facility] [address] [place] [address] Emily Marcial LPN Social History Tobacco Use [...] Description 10/09/2025 10:15 AM EST Office Visit [facility] [address] [place] [address] [phone] Miriam Shipman MD [address] [place] [address] [phone] 11/07/2025 9:15 AM EST Office Visit [address] [phone] Sammie Maharaj MD [address] [place] [address] [phone] documented as of this encounter Visit Diagnoses Not on filedocumented in this encounter Care Teams Design Engineer Products Relationship Specialty Start Date End Date Sammie Maharaj MD [address] [place] [address] PCP - General Family Medicine 10/10/18 Loyda Glaser, ERVIN [address] [place] [address] Kinesiology Professor Family Medicine 10/31/23 Yasmin Ho MD [address] [place] [address] Gastroenterology 08/29/[address] [facility] [address] [facility] [address] Neurology 08/29/24 Paola Tolentino, HEBERT [address] [address] Endocrinology 10/24/24 [facility] Psychology Psychology 12/19/24 documented as of this encounter
--- OUTSIDE RECORDS SUMMARY | 2025-09-30 09:02 | XMS_ITS | Clinical Summary ---
Author Organization [employer] Address [address] [place] [address] 7t [place] [address] Care Team Providers Care Young Adult Librarian Name Role Phone Sammie Maharaj MD Primary Care Provider [phone] Loyda Glaser RN Unavailable Yasmin Ho MD Unavailable [phone] Allergies Active Allergy Reactions Criticality Noted Date Comments Acetaminophen 09/09/2014 Other reaction(s): Rash Latex Rash Low 06/29/2023 Medications Continuous Glucose Sensor (FreeStyle Charlotte 3 Plus Sensor) miscIndicatio ns:Type 2 diabetes mellitus with hyperglycemia , with long-term current use of insulin ([facility]) [facility] Active insulin glargine (Lantus) 100 UNIT/ML injectionIndi cations:Type 2 diabetes mellitus with hyperglycemia , with long-term current use of insulin ([facility]) Inject under the skin at bedtime. Injecting 14 units daily as directed by tie in machine operator Active ursodiol (Actigall) 250 MG tabletIndicat ions:End stage liver disease (CMS/HCC) (HCC) Take 250 mg by mouth [address] Marilee SOSA [facility] Active beta carotene (vitamin A) 3 MG (79246 UT) capsuleIndica tions:End stage liver disease (CMS/HCC) (HCC) Take 10,000 Units by mouth Once per day. Per SHELIA Perez at [facility] liver CLinic Active insulin pen needle (BD [...] different from the original. [facility] provider line [phone], called 09/29/23 Breanna Burleson [phone]. cell [phone] CARDIAC CATHETERIZATION TECHNICIAN services via [employer] Problem Noted Date Diagnosed Date Chronic hepatitis B without hepatic coma (CMS/HC C) 09/24/2025 Overview (09/24/2025): Post transplant Hep B viral load positive Telephone call received from Brisa, seo coordinator at [facility] 09/24/25. They are aware of Hep B [...] if needed. I spoke with Liz at [facility] liver transplant clinic, explained the situation and ask them to run the pictures and case by trade recruiter in case this is not related to [...] Overview (03/13/2025): CT abd pelvis ordered by [facility] liver [facility] and dated 01/28/24 IMPRESSION: 1. [...] appear significantly changed from 2021, possibly reactive. [facility] not from 02/24/24 Telephone Encounter - Katy Boateng RN 10:24 AM LVM for patient using tablet repair, Ari [id number], about results of MRI and scheduling of [...] pelvis ordered by [facility] liver [facility] and dated 01/28/24 IMPRESSION: 1. [...] RN 10:24 AM LVM for patient using tablet repair, [employer] [id number], about results of MRI and scheduling of [...] RN 10:24 AM LVM for patient using tablet repair, [employer] [id number], about results of MRI and scheduling of [...] 11/14/2023 Overview (01/18/2024): -she has fired several prepared foods production team member in the past. I called [facility] provider line [phone], 09/29/23 and spoke to abdelrahman Hussein Burleson [phone]. He reported extensive hx of working it pt and she was on the waiting list for starvros. Her CARDIAC CATHETERIZATION TECHNICIAN will be Laxmi Mas her friend. -She has been approved for CARDIAC CATHETERIZATION TECHNICIAN hours but have not started yet as of 01/18/2024 Assessment & Plan (07/03/2025 12:00 PM EDT): -she has fired several prepared foods production team member in the past. I called [facility] provider line [phone], 09/29/23 and [facility] to [facility] [phone]. He reported extensive hx of working it pt and she was on the waiting list for starvros. Her CARDIAC CATHETERIZATION TECHNICIAN will be Laxmi Mas her friend. -She has been approved for CARDIAC CATHETERIZATION TECHNICIAN hours but have not started yet as of 01/18/2024 Assessment & Plan (01/18/2024 9:17 AM EDT): -she has fired several prepared foods production team member in the past. I called [facility] provider line [phone], 09/29/23 and spoke to [facility] [phone]. He reported extensive hx of working it pt and she was on the waiting list for starvros. Her CARDIAC CATHETERIZATION TECHNICIAN will be Laxmi Mas her friend. -She has been approved for CARDIAC CATHETERIZATION TECHNICIAN hours but have not started yet as of 01/18/2024 Pain in hand and fingers 09/29/2023 Overview (01/18/2024): -refer to occupational therapy 01/18/2024 Assessment & Plan (09/29/2023 11:55 AM EST): No etiology on exam. Pt high risk for dyupetryns. Recommend warm wraps and rest. Other specified health status 07/21/2023 Overview (07/03/2025): -next comprehensive annual evaluation due after 07/09/25 [facility]health care proxy paperwork filed 07/09/24 Assessment & Plan (07/03/2025 12:00 PM EDT): -next comprehensive annual evaluation due after 07/09/25 -[facility] -health care proxy paperwork filed 07/09/24 Assessment & Plan (03/13/2025 3:41 PM EDT): -next physical exam due after 07/09/25 -eye care facilitated by [facility] -dental home is [address] -health care proxy paperwork filed 07/09/24 Assessment & Plan (12/19/2024 1:03 PM EDT): -next physical exam due after 07/09/25 -[facility] -health care proxy paperwork filed 07/09/24 Assessment & Plan (10/24/2024 9:48 AM EST): -next physical exam due after 07/09/25 -[facility] -health care proxy paperwork given 10/20/23. Filed 07/09/24 Assessment & Plan (07/09/2024 10:17 AM EDT): -next physical exam due after 07/09/25 -eye care facilitated by [facility] -dental home is [place] -health care proxy paperwork given 10/20/23. Filed 07/09/24 Assessment & Plan (01/18/2024 9:16 AM EDT): -next physical exam due after 07/28/2024 -eye care facilitated by [facility] -dental home is none -health care proxy paperwork given 10/20/23 Assessment & Plan (10/20/2023 9:33 AM EST): -next physical exam due after 07/28/2024 -eye care facilitated by [facility] referral placed 09/29/23 -dental home is none -health care proxy paperwork given 10/20/23 Assessment & Plan (09/29/2023 11:46 AM EST): -next physical exam due after 07/28/2024 -eye care facilitated by [facility] referral placed 09/29/23 -dental home is none Assessment & Plan (07/28/2023 10:05 AM EDT): -next physical exam due after 07/28/2024 -eye care facilitated by [facility] -dental home is none Type 2 [...] upgrade to the freestyle charlotte 3 CGM. -[facility] endo 03/22/25 recommended reducing her Lantus [...] low dose of basal insulin for now. [facility] endo note 08/27/25 no basil insulin for now, regular insulin 5 units q 6 hours while inpatient Assessment & Plan (07/03/2025 12:00 PM EDT): -Followed by [facility] Endocinology Diabetes are controlled. -CGM training done [...] upgrade to the freestyle charlotte 3 CGM. -[facility] endo 03/22/25 recommended reducing her Lantus [...] Plan (03/13/2025 3:49 PM EDT): -Followed by [facility] End[facility] Diabetes are controlled. -CGM training done [...] Plan (12/19/2024 1:03 PM EDT): -Followed by [facility] End[facility] Diabetes are controlled. -CGM training done [...] approval for her to upgrade to the Alediayle charlotte 3 CGM. Assessment & Plan (10/24/2024 [...] approval for her to upgrade to the Alediayle charlotte 3 CGM. Assessment & Plan (07/09/2024 [...] approval for her to upgrade to the Selphee charlotte 3 CGM. Assessment & Plan (01/18/2024 [...] with donor 08/18/[address] June at [facility] due to cryptogenic cirrhosis -complicated by intraluminal and intraneural duodenal hematoma requiring placement of GJ tube fro gastric decompression and feeds via GJ. [facility] -history Cryptogenic cirrhosis with hx presinusoidal [...] 2.19 log 09/02/25. She is followed by [facility]. -s/p liver transplant with donor 08/18/25 at [facility]--given donor HBV PCR positive, continue entecavir 0.5mg [...] up of fevers, SOB and tachycardia at [facility] , in her G tube had [...] clinically improved and was discharged back to [facility] on 09/10/2025 with plan for two week [...] and walking and feeling stronger. Her incisional freay are bothering her. She otherwise denies any symptoms associated with her recent surgery, including nausea, vomiting, fevers, chills, constipation, or other constitutional symptoms. S/P Liver Transplant: The patient continues to recover from her recent liver transplant at [facility]. She will likely be discharged home [...] have weekly lab draws going forward at [facility] (Lab order to be provided [...] up hematoma. Will see Ninoska Kiser (transplant senior buyer planner) next week during discharge appointments. Intraabdominal abscess: [...] with Dr. Yasmin Ho MD of [facility] 02/2024, note reviewed: She remains [...] Saw Transplant Hepatology and GI specialist at [facility] on 09/11/24. Per note, she remains active on LT waitlist with an updated MELD 3.0 of 19 based on blood work in April 2024. Etiology of her liver disease and progressive jaundice remains unclear despite prior MRI/MRCP and interval liver biopsy in May 2024 which was non-specific with non-specific findings which we reviewed with patient and [id number]-ho-rpo again today. We recommended continuation of empiric [...] labs show elevated LFTs. Labs sent to trade recruiter. Due to increased bilirubin, labs were sent to trade recruiter who reports chronically elevated due to chol [...] no additional pathology. 06/05/25 saw GI at [facility] had EGD that showed no sign [...] with Dr. Yasmin Ho MD of [facility] 02/2024, note reviewed: She remains [...] Saw Transplant Hepatology and GI specialist at [facility] on 09/11/24. Per note, she remains active on LT waitlist with an updated MELD 3.0 of 19 based on blood work in April 2024. Etiology of her liver disease and progressive jaundice remains unclear despite prior MRI/MRCP and interval liver biopsy in May 2024 which was non-specific with non-specific findings which we reviewed with patient and kpdgtb-vx-[id number] again today. We recommended continuation of empiric [...] labs show elevated LFTs. Labs sent to trade recruiter. 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 Recommending redraw next week with PT and INR to update meld. Lab order was faxed. -reordered labs 12/05/24, stable and [facility] aware -CT 01/08/25 with Liver Transplant [...] with Dr. Yasmin Ho MD of [facility] 02/2024, note reviewed: She remains [...] Saw Transplant Hepatology and GI specialist at [facility] on 09/11/24. Per note, she remains active on LT waitlist with an updated MELD 3.0 of 19 based on blood work in April 2024. Etiology of her liver disease and progressive jaundice remains unclear despite prior MRI/MRCP and interval liver biopsy in May 2024 which was non-specific with non-specific findings which we reviewed with patient and gflbaf-xm-swl again today. We recommended continuation of empiric [...] labs show elevated LFTs. Labs sent to trade recruiter. Due to increased bilirubin, labs were sent to trade recruiter who reports chronically elevated due to chol [...] with Dr. Yasmin Ho MD of [facility] 02/2024, note reviewed: She remains [...] Saw Transplant Hepatology and GI specialist at [facility] on 09/11/24. Per note, she remains active on LT waitlist with an updated MELD 3.0 of 19 based on blood work in April 2024. Etiology of her liver disease and progressive jaundice remains unclear despite prior MRI/MRCP and interval liver biopsy in May 2024 which was non-specific with non-specific findings which we reviewed with patient and fyajcw-aq-rax again today. We recommended continuation of empiric [...] labs show elevated LFTs. Labs sent to trade recruiter. Due to increased bilirubin, labs were sent to trade recruiter who reports chronically elevated due to chol [...] [facility]. -liver biopsy 2018 mild, [...] with Dr. Yasmin Ho MD of [facility] 02/2024, note reviewed: She remains [...] Saw Transplant Hepatology and GI specialist at [facility] on 09/11/24. Per note, she remains active on LT waitlist with an updated MELD 3.0 of 19 based on blood work in April 2024. Etiology of her liver disease and progressive jaundice remains unclear despite prior MRI/MRCP and interval liver biopsy in May 2024 which was non-specific with non-specific findings which we reviewed with patient and yrulkz-mu-dul again today. We recommended continuation of empiric [...] with Dr. Yasmin Ho MD of [facility] 02/2024, note reviewed: She remains [...] not drive), baths or swimming. Awaiting new CARDIAC CATHETERIZATION TECHNICIAN provider. Daughter aware of how to call 911. Followed by neurologist, -followed by Dr. Jono Eden at [facility] [email or web address]. Next appointment 08/2024 -she self dc d her aspirin. I recommended she called neurology to get refills on her medication -she has been seizure free with Zonisamide 200 mg nightly and ran out of supplies 6 months ago. I recommend to resume Zonisamide since her risk of recurrent seizure is over 60% due to her prior hemorrhagic stroke. -Saw Neurologist at [facility] 08/20/24, Plan: continue ZNS 200 mg daily [...] not drive), baths or swimming. Awaiting new CARDIAC CATHETERIZATION TECHNICIAN provider. Daughter aware of how to call 911. Followed by neurologist, -followed by Dr. Jono Eden at [facility] [email or web address]. Next appointment 08/2024 -she self dc d her aspirin. I recommended she called neurology to get refills on her medication -she has been seizure free with Zonisamide 200 mg nightly and ran out of supplies 6 months ago. I recommend to resume Zonisamide since her risk of recurrent seizure is over 60% due to her prior hemorrhagic stroke. -Saw Neurologist at [facility] 08/20/24, Plan: continue ZNS 200 mg daily [...] not drive), baths or swimming. Awaiting new CARDIAC CATHETERIZATION TECHNICIAN provider. Daughter aware of how to call 911. Followed by neurologist, -followed by Dr. Jono Eden at [facility]. Next appointment 08/2024 -she self dc d her aspirin. I recommended she called neurology to get refills on her medication -she has been seizure free with Zonisamide 200 mg nightly and ran out of supplies 6 months ago. I recommend to resume Zonisamide since her risk of recurrent seizure is over 60% due to her prior hemorrhagic stroke. -Saw Neurologist at [facility] 08/20/24, Plan: continue ZNS 200 mg daily [...] not drive), baths or swimming. Awaiting new CARDIAC CATHETERIZATION TECHNICIAN provider. Daughter aware of how to call 911. Followed by neurologist, -followed by Dr. Jono Eden at [facility]. Next appointment 08/2024 -she self dc d her aspirin. I recommended she called neurology to get refills on her medication -she has been seizure free with Zonisamide 200 mg nightly and ran out of supplies 6 months ago. I recommend to resume Zonisamide since her risk of recurrent seizure is over 60% due to her prior hemorrhagic stroke. -Saw Neurologist at [facility] 08/20/24, Plan: continue ZNS 200 mg daily [...] not drive), baths or swimming. Awaiting new CARDIAC CATHETERIZATION TECHNICIAN provider. Daughter aware of how to call 911. Followed by neurologist, -followed by Dr. Jono Eden at [facility]. Next appointment 08/2024 -she [...] -Has follow up on Aug 20 at [facility] Assessment & Plan (10/20/2023 8:57 AM EST): [...] in her care. She has had multiple prepared foods production team member which she has fired and multiple case [...] in her care. She has had multiple prepared foods production team member which she has fired and multiple case [...] in her care. She has had multiple prepared foods production team member which she has fired and multiple case [...] in her care. She has had multiple prepared foods production team member which she has fired and multiple case [...] in her care. She has had multiple prepared foods production team member which she has fired and multiple case [...] Swelling of right ear 12/19/20242024 [place] (12/19/2024[place] [facility] [place] Patient presented for evaluation of ear pain and redness. Dx acute perichondritis. Treated with IV cefepime due to extensive infection. No sepsis. Some crusting but significant improvement in swelling. Discharged home with Levaquin to complete a total of 10 days of antibiotics and 4 days of prednisone. Seen by [facility] on 12/14/24 at pt's home for bilateral leg swelling. Slight non-pitting edema to superior side of distal feet. BGL was 230 as pt was eating dinner and about to administer insulin shortly after. She was told it was due to prednisone. She stopped her prednisone and symptoms resolved. Pt called her specialist in [place]. She is doing much better. She showed me a photo of her year that was severely inflamed with vesicles and erythremia. This has resoled and no longer on prednisone. She requests letter to keep her dog at home due to her anxiety. Assessment & Plan (12/19/2024 1:01 PM EDT): [facility] [place]10/[place]24[place] Patient presented for evaluation of ear pain and redness. Dx acute perichondritis. Treated with IV cefepime due to extensive infection. No sepsis. Some crusting but significant improvement in swelling. Discharged home with Levaquin to complete a total of 10 days of antibiotics and 4 days of prednisone. [facility]'s home for bilateral leg swelling. Slight non-pitting edema to superior side of distal feet. BGL was 230 as pt was eating dinner and about to administer insulin shortly after. She was told it was due to prednisone. She stopped her prednisone and symptoms resolved. Pt called her specialist in [place]. She is doing much better. She showed [...] with Dr. Yasmin Ho MD of [facility] 12/12/2023, note reviewed Cirrhosis: -Compensated: [...] diet discussed. Avoid hepatotoxic agents. -Followed by: [facility] -continue ursodiol therapy given marked AP elevation and potential for AMA negative PCB. -transplant candidacy will be determined by multidisciplinary transplant committee after all appropriate testing has been performed. -Has follow up with liver transplant outplacement consultant on at [facility] -Per pt, On liver transplant list since [...] diet discussed. Avoid hepatotoxic agents. -Followed by: [facility] -continue ursodiol therapy given marked AP elevation and potential for AMA negative PCB. -transplant candidacy will be determined by multidisciplinary transplant committee after all appropriate testing has been performed. -call place by me to [facility] healthcare manager at [facility] [phone] to stress the urgency of CARDIAC CATHETERIZATION TECHNICIAN services and increase level of care. He [...] diet discussed. Avoid hepatotoxic agents. -Followed by: [facility] -continue ursodiol therapy given marked AP elevation and potential for AMA negative PCB. -transplant candidacy will be determined by multidisciplinary transplant committee after all appropriate testing has been performed. -call place by me to [facility] healthcare manager at [facility] Omar Juarez [phone] cell [phone] to stress the urgency of CARDIAC CATHETERIZATION TECHNICIAN services and increase level of care. He [...] Encounters Date Type Department Care Team Description 09/30/2025 Telephone [facility] [address] [place] [phone] Sammie Maharaj MD order 09/26/2025 Telephone [facility] [address] [place] [phone] Sammie Maharaj MD Dme order 09/25/2025 Telephone [facility] [address] [place] [phone] Sammie Maharaj MD Durable Medical Equipment 09/25/2025 Telephone [facility] [address] [place] [phone] Sammie Maharaj MD verbal orders 09/24/2025 Telephone [facility] [address] [place] [phone] Sammie Maharaj MD Durable Medical Equipment 09/24/2025 Telephone [facility] [address] [place] [address] [phone] Sammie Maharaj MD Durable Medical Equipment (DME: Incontinence Supplies) 09/20/[address] [phone] Sammie Maharaj MD Care Coordination; Results 09/20/[address] [address] Sammie Maharaj MD 09/20/2025 Patient Outreach [address] [address] Sammie Maharaj MD Transition Of Care (Tcm) (HDF- scheduled (direct)) 09/20/[address] [address] Sammie Maharaj MD Durable Medical Equipment (DME: [facility] [facility] Care Request) 09/12/2025 Orders Only [address] [address] Sammie Maharaj MD Liver transplant recipient (CMS/HCC) (HCC) (Primary Dx) 08/22/[address] [phone] Sammie Maharaj MD call back 07/30/2025 Refill [facility] [address] [place] [phone] Sammie Maharaj MD 07/03/2025 9:30 AM EDT Office Visit [address] [address] Sammie Maharaj MD Altered mental status, unspecified altered mental status type (Primary Dx); End stage liver disease (CMS/HCC); H/O insertion of pancreatic stent; Type 2 diabetes mellitus with hyperglycemia, with long-term current use of insulin (CMS/HCC); Mixed hyperlipidemia; Anemia, unspecified type; Complex partial seizure (CMS/HCC); Aphasia; Depressive disorder; Complex care coordination; Encounter for immunization; Other specified health status 07/03/2025 Travel 07/02/2025 Refill [facility] [address] [place] [phone] Sammie Maharaj MD from Last 3 Months [...] Description 10/09/2025 10:15 AM EST Office Visit [facility] [address] [place] [phone] Miriam Shipman MD [address] [place] [phone] 11/07/2025 9:15 AM EST Office Visit [facility] [address] [place] [phone] Sammie Maharaj MD [address] [place], [place] [id number] Health Maintenance Due Date Last Done Comments [...] hyperglycemia, with long-term current use of insulin ([facility]/HCC) LIPID PANEL, STANDARD Routine 10/24/2024 9:59 AM EST Type 2 diabetes mellitus with hyperglycemia, with long-term current use of insulin ([facility]/HCC) HEPATITIS C ANTIBODY Routine 07/28/2023 10:55 AM EDT Routine screening for STI (sexually transmitted infection) HIV ANTIBODY/ANTIGEN ([facility]) Routine 07/28/2023 10:55 AM EDT PAP SMEAR Routine 03/25/2021 12:00 AM EDT from Last 3 Months or Most Recently Relevant to Health Maintenance Results * (ABNORMAL) CBC (07/03/2025 11:18 AM EDT) White Blood Count 3.9(L) 4.8 - 10.8 X10*3/uL [facility] Red Blood Count 3.75(L) 4.20 - 5.50 X10*6/uL [facility] Hemoglobin 11.4(L) 12.0 - 16.0 g/dl [facility] Hematocrit 33.6(L) 37.0 - 47.0 % [facility] Mean Corpuscular Volume 89.6 80.0 - 98.0 fL [facility] Mean Corpuscular Hemoglobin 30.4 27.0 - 33.0 pg [facility] Mean Corpuscular HGB Conc 33.9 31.0 - 35.0 g/dl [facility] Red Cell Distribution Width 14.1 11.0 - 16.0 % [facility] NRBC Pct Auto 0.0 0.0 - 0.2 /100WBC [facility] NRBC Abs Auto 0.000 0.0 - 0.012 X10*3/uL [facility] Blood Venous blood specimen / Unknown 07/03/2025 11:18 AM EDT 07/03/2025 11:18 AM EDT Sammie Maharaj MD LAB BLOOD ORDERABLES Final Result Performing Organization Address [facility] [place] [facility]/ZIP Co de Phone Number [facility] [address] [place] [phone] * (ABNORMAL) Ammonia, Plasma (07/03/2025 11:18 AM EDT) Ammonia (P) 81(H) 13 - 55 umol/L [facility] Blood Venous blood specimen / Unknown 07/03/2025 11:18 AM EDT 07/03/2025 11:18 AM EDT Sammie Maharaj MD LAB BLOOD ORDERABLES Final Result Performing Organization Address City/[facility] Co de Phone Number [facility] [address] [place] [phone] * (ABNORMAL) Hepatic Function Panel (07/03/2025 11:18 AM EDT) Bilirubin, Total 9.4(H) 0.0 - 1.0 mg/dL [facility] Comment:Mild Icterus. Bilirubin, Direct 7.2(H) 0.0 - 0.5 mg/dL [facility] Comment:Mild Icterus. Aspartate Amino Transferase 108(H) 5 - 31 U/L [facility] Alanine Aminotransferase 72(H) 0 - 31 U/L [facility] Total Protein 6.1(L) 6.5 - 8.0 g/dL [facility] Albumin Level 3.1(L) 3.5 - 5.0 g/dL [facility] Alkaline Phosphatase 849(H) 39 - 117 U/L [facility] Blood Venous blood specimen / Unknown 07/03/2025 11:18 AM EDT 07/03/2025 11:18 AM EDT Sammie Maharaj MD LAB BLOOD ORDERABLES Final Result Performing Organization Address [facility] [place] [facility] Co de Phone Number [facility] [address] [place] [phone] * (ABNORMAL) Basic Metabolic Panel (07/03/2025 11:18 AM EDT) Pathologist [facility] Sodium 145 135 - 145 mmol/L [facility] Potassium 3.4 3.3 - 5.1 mmol/L [facility] Chloride 115(H) 96 - 108 mmol/L [facility] Carbon Dioxide 22 22 - 29 mmol/L [facility] Anion Gap 11(L) 12 - 20 [facility] Urea Nitrogen (BUN) 16 9 - 16 mg/dL [facility] Creatinine, Serum 0.52 0.5 - 1.4 mg/dL [facility] Comment:Mild Icterus.Interpr et result with caution. Estimated Glomerular Filt Rate >60 [facility] Comment:Chronic Kidney Disea se: Estimated GFR < 60 mL/min/1.95e9Yulzpg Kidney Disease: Estimated GFR < 15 mL/min/1.73m2 Glucose 164(H) 60 - 115 mg/dL [facility] Calcium 8.6 8.4 - 10.2 mg/dL [facility] Blood Venous blood specimen / Unknown 07/03/2025 11:18 AM EDT 07/03/2025 11:18 AM EDT Sammie Maharaj MD LAB BLOOD ORDERABLES Final Result Performing Organization Address City/[facility]/ZIP Co de Phone Number [facility] [address] [place] [phone] * Mammography (05/28/2025 2:48 PM EDT) Pathologist [facility] Mammogram BIRADS 1 Normal, Abnormal, BIRADS 1 , BIRADS 2 Anatomical Region Laterality Modality Other us Historical Provider HEALTH MAINTENANCE Final Result * POCT glycosylated hemoglobin (Hgb A1c) (03/13/2025 3:44 PM EDT) Hemoglobin A1C 4.4 4.0 - 6.0 % QC Media Lot # [id number] Lot# Expiration Date Blood Capillary blood specimen / Unknown 03/13/2025 3:44 PM EDT Sammie Maharaj MD POINT OF CARE TEST ENTER/E DIT ORDERABLES Final Result * Albumin, Random Urine W/Creatinine (11/05/2024 10:20 AM EST) Creatinine, Urine 59.34 mg/dL [facility] Microalbumin Urine <5.0 mg/L [facility] Microalbum Creatinine Ratio Ur TNP <30 ug/mg cr [facility] Comment:Unable to calculate albumin/creatinine ratio due to lowmicroalbumin or creatinine result. Urine 11/05/2024 10:2 0 AM EST 11/05/2024 11:21 AM EST Sammie Maharaj MD LAB URINE ORDERABLES Final Result [facility] [address] [place] [phone] * (ABNORMAL) Lipid Panel, Standard (10/24/2024 9:59 AM EST) Triglycerides 91 <150 mg/dL [facility] Comment:Mild Icterus.Interpr et result with caution.Desirable Triglyceride: less than 150 mg/dLBorderline High Triglyceride 150-199 mg/dLHigh Triglyceride: 200-499 mg/dLVery High Triglyceride: greater than or equal to 5OO mg/dL Cholesterol 132 <200 mg/dL [facility] Comment:Mild Icterus.Interpr et result with caution.Desirable Cholesterol: less than 200 mg/dLBorderline High Cholesterol: 200-239 mg/dLHigh Cholesterol: greater than 239 mg/dL LDL Cholesterol Calculated 92 <100 mg/dL [facility] Comment:Desirable LDL: less than 100 mg/dLNear Optimal/Above Optimal LDL: 110- 129 mg/dLBorderline High LDL: 130-159 mg/dLHigh LDL: 160-189 mg/dLVery High LDL: greater than or equal to 190 mg/dL HDL Cholesterol 22(L) >40 mg/dL [facility] Comment:Desirable HDL: great er than 40 mg/dL Note: This HDL assay may give artificially low results in patients with liver disease. Blood Venous blood specimen / Unknown 10/24/2024 9:59 AM EST 10/24/2024 11:05 AM EST Sammie Maharaj MD LAB BLOOD ORDERABLES Final Result Performing Organization Address [facility] [place] [facility]/ZIP Co de Phone Number [facility] [address] [place] [phone] * Hepatitis C Ab (07/28/2023 10:55 AM EDT) Hepatitis C Antibody Nonreactive Nonreactive [facility] Comment:Antibodies to HCV no t detected; does not exclude early acuteHCV infection. Blood 07/28/2023 10:5 5 AM EDT 07/28/2023 1:11 PM EDT Sammie Maharaj MD LAB BLOOD ORDERABLES Final Result Performing Organization Address [facility] [place] [facility]/ZIP Co de Phone Number [facility] [address] [place] [phone] * HIV Ab/Ag ([place]) (07/28/2023 10:55 AM EDT) HIV AB/AG Nonreactive Nonreactive [facility] Comment:HIV-1 p24 Ag and/or HIV-1/HIV-2 Ab not detected.A test result that is nonreactive does not exclude thepossibility of exposure to or infection with HIV-1 and/orHIV-2. Nonreactive results in this assay for individualswith prior exposure to HIV-1 and/or HIV-2 may be due toantigen and antibody levels that are below the limit ofdetection of this assay.The [employer] Alinity HIV Ag/Ab Combo assay result andsupplemental assay results should be interpreted inconjunction with the patient's clinical presentation,history and other laboratory results. If the results areinconsistent with clinical evidence, additional testing issuggested to confirm the result. 07/28/2023 10:5 5 AM EDT 07/28/2023 1:11 PM EDT Sammie Maharaj MD LAB BLOOD ORDERABLES Final Result [facility] [address] [place] [phone] * Pap Smear (03/25/2021 12:00 AM EDT) Swab [facility] Provider LAB CYTOLOGY ORDERABLES F inal Result IMAGING from Last 3 Months or Most Recently Relevant to Health Maintenance Insurance [facility] < 65 REIN[place]DO WEBER [id number] Advance Directives Documents on File Type Date Recorded Patient [id number] Application Developer Expl anation Advance Directives and Living Will 07/09/2024 Health Care Proxy 07/09/24 Care Teams Young Adult Librarian Relationship Specialty Start Date End Date [place], MD Sammie [address] [place] [address] PCP - General Family Medicine 10/10/18 Loyda Glaser RN [address] [place] [address] Manufacturing Automation Engineer Family Medicine 10/31/23 Yasmin Ho MD [address] [place] [address] Gastroenterology 08/29/24 Manuel Carpenter PA [address] [address] Neurology 08/29/24 Paola Tolentino NP [address] [address] Endocrinology 10/24/24 [facility] Psychology Psychology 12/19/24
--- OUTSIDE RECORDS SUMMARY | 2025-09-30 09:02 | XMS_ITS | Encounter Summary ---
Author Organization [employer] Address [address] [place] [address] 7t [place] [address] Care Team Providers Care Manager Of Environmental Services Name Role Phone Sammie Maharaj MD Primary Care Provider [phone]- [phone] Loyda Glaser RN Unavailable [phone] Yasmin Ho MD Unavailable Encounter Details Date Type Department Care Team (Late st Contact Info) Description 11/11/2022 Abstract [facility] [address] [place] [address] [phone] Sammie Maharaj MD [address] [place] [address] [phone] Social History Tobacco Use Types Packs/Day Years [...] Description 10/09/2025 10:15 AM EST Office Visit [address] [phone] Miriam Shipman MD [address] [place] [address] [phone] 11/07/2025 9:15 AM EST Office Visit [address] [phone] Sammie Maharaj MD [address] [place] [address] documented as of this encounter Procedures Procedure Name Priority Date/Time Associated Diagnosis Comments PAP SMEAR Routine 03/25/2021 12:00 AM EDT documented in this encounter Results * Pap Smear (03/25/2021 12:00 AM EDT) Swab us Historical Provider LAB CYTOLOGY ORDERABLES F inal Result IMAGING documented in this encounter Visit Diagnoses Not on filedocumented in this encounter Care Teams Manager Of Environmental Services Relationship Specialty Start Date End Date Sammie Maharaj MD [address] [place] [address] PCP - General Family Medicine 10/10/18 Loyda Glaser, ERVIN [address] [place] [address] Cnc Mill And Lathe Operator Family Medicine 10/31/23 Yasmin Ho MD [address] [place] [address] Gastroenterology 08/29/24 Manuel Carpenter PA [facility] [address] [facility] [address] Neurology 08/29/24 Paola Tolentino NP [address] [address] Endocrinology 10/24/[address] [facility] Psychology Psychology 12/19/24 documented as of this encounter
--- OUTSIDE RECORDS SUMMARY | 2025-09-30 09:02 | XMS_ITS | Encounter Summary ---
Author Organization [employer] Address [address] [place] [address] Care Team Providers Care Software Sales Executive Name Role Phone Sammie Maharaj MD Primary Care Provider [phone]- [phone] Loyda Glaser RN Unavailable [phone] Yasmin Ho MD Unavailable Reason for Visit * Reason Onset Date Comments Referral 12/01/2022 Encounter Details Date Type Department Care Team (Late st Contact Info) Description 12/01/2022 Telephone [facility]INE [address] [place] [address] Sammie Maharaj MD [address] [place], [place] [phone] Referral Social History Tobacco Use Types Packs/Day [...] [facility] Please contact pt at [phone] or Becca [phone] documented in this encounter Plan of Treatment Upcoming Encounters Date Type Department Care Team (Late st Contact Info) Description 10/09/2025 10:15 AM EST Office Visit [address] [address] Miriam Shipman MD [address] [place] [address] 11/07/2025 9:15 AM EST Office Visit [address] [address] Sammie Maharaj MD [address] [place] [address] documented as of this encounter Visit Diagnoses Not on filedocumented in this encounter Care Teams Software Sales Executive Relationship Specialty Start Date End Date Sammie Maharaj MD [address] [place] [address] PCP - General Family Medicine 10/10/18 Loyda Glaser, RN [address] [place] [address] Echometer Engineer Family Medicine 10/31/23 Yasmin Ho MD [address] [place] [address] Gastroenterology 08/29/24 Manuel Carpenter PA [address] [address] Neurology 08/29/24 Paola Tolentino, HIGH SCHOOL MATH TEACHER [address] [address] Endocrinology 10/24/24 [facility] Psychology 12/19/24 documented as of this encounter
--- OUTSIDE RECORDS SUMMARY | 2025-09-30 09:02 | XMS_ITS | Encounter Summary ---
Author Organization [employer] Address [address] 7t [place] [address] Care Team Providers Care Carpenter Repairer Name Role Phone Sammie Maharaj MD Primary Care Provider [phone]- [phone] Loyda Glaser RN Unavailable [phone] Yasmin Ho MD Unavailable [phone] Reason for Visit * Reason Onset Date Comments Dme order 09/26/2025 Encounter Details Date Type Department Care Team (Late st Contact Info) Description 09/26/2025 Telephone [facility] 230 [place] [address] Sammie Maharaj MD [address] [place], [place] [phone] Dme order Social History Tobacco Use Types Packs/Day Years [...] encounter Miscellaneous Notes * Telephone Encounter - Duncan Marin - 09/26/2025 10:22 AM EST Tc from yany requesting a DME order for Pt Requesting: (4) Antoine 4 x 4 (4) wound cleansers (1) pole to hold the feeding tube (4) abdominal pad's (4) depend's size small (4) wound closure tape Contact Yany (manager agriculture) at [phone] documented in this encounter Plan of Treatment Upcoming Encounters Date Type Department Care Team (Late st Contact Info) Description 10/09/2025 10:15 AM EST Office Visit [facility] [address] [place] [address] [phone] Miriam Shipman MD [address] [place] [address] 11/07/2025 9:15 AM EST Office Visit [facility] [address] [place] [address] [phone] Sammie Maharaj MD [address] [place] [address] documented as of this encounter Visit Diagnoses Not on filedocumented in this encounter Additional Health Concerns Assessment Noted Time PHQ-9 Depression Total Score: 0 10/24/19 25 9:33 AM EST documented as of this encounter Care Teams Carpenter Repairer Relationship Specialty Start Date End Date Sammie Maharaj MD 230 [place] [address] PCP - General Family Medicine 10/10/18 Loyda Glaser, RN 230 [place] [address] Plastic Surgeon Family Medicine 10/31/23 Yasmin Ho MD 55 [place] [address] Gastroenterology 08/29/24 Manuel Carpenter PA [facility] 55 [facility] [address] Neurology 08/29/24 Paola Tolentino RIB CLOTH KNITTER [facility] [address] [facility] [address] Endocrinology 10/24/24 [facility] Psychology Psychology 12/19/24 documented as of this encounter
--- OUTSIDE RECORDS SUMMARY | 2025-09-30 09:02 | XMS_ITS | Encounter Summary ---
Author Organization [employer] Address [address] 7t [place] [address] Care Team Providers Care Hand Tool Filer Name Role Phone Sammie Maharaj MD Primary Care Provider [phone]- [phone] Loyda Glaser RN Unavailable [phone] Yasmin Ho MD Unavailable [phone] Encounter Details Date Type Department Care Team (Late st Contact Info) Description 02/19/2025 Orders Only [facility] 230 [place], [place] [phone] Enzo Manuel MD 230 [place], [place] [phone] Social History Tobacco Use Types Packs/Day Years [...] Description 10/09/2025 10:15 AM EST Office Visit [facility] [address] [place] [address] Miriam Shipman MD [address] [place] [address] 11/07/2025 9:15 AM EST Office Visit [address] [address] Sammie Maharaj MD [address] [place] [address] [phone] documented as of this encounter Visit Diagnoses Not on filedocumented in this encounter Additional Health Concerns Assessment Noted Time PHQ-9 Depression Total Score: 0 10/24/19 25 9:33 AM EST documented as of this encounter Care Teams Hand Tool Filer Relationship Specialty Start Date End Date Sammie Maharaj MD [address] [place] [address] [phone] PCP - General Family Medicine 10/10/18 Loyda Glaser, ERVIN [address] [place] [address] Sisal Operator Family Medicine 10/31/23 Yasmin Ho MD [address] [place] [phone] Gastroenterology 08/29/24 Manuel Carpenter PA [address] [address] Neurology 08/29/24 Paola Tolentino NP [address] [address] Endocrinology 10/24/24 [facility] Psychology Psychology 12/19/24 documented as of this encounter
--- OUTSIDE RECORDS SUMMARY | 2025-09-30 09:02 | XMS_ITS | Encounter Summary ---
Author Organization [employer] Address [address] 7t [place] [address] Care Team Providers Care Hands Parter Name Role Phone Sammie Maharaj MD Primary Care Provider [phone]- [phone] Loyda Glaser RN Unavailable [phone] Yasmin Ho MD Unavailable [phone] Reason for Visit * Reason Comments Med Refill Encounter Details Date Type Department Care Team (Late st Contact Info) Description 10/25/2023 Refill [facility] 230 [place], [place] [phone] Sammie Maharaj MD 230 [place], [place] [phone] Microcytic anemia Social History Tobacco Use Types [...] Description 10/09/2025 10:15 AM EST Office Visit [address] [address] Miriam Shipman MD [address] [place] [address] 11/07/2025 9:15 AM EST Office Visit [address] [address] Sammie Maharaj MD [address] [place] [address] documented as of this encounter Visit Diagnoses Diagnosis Microcytic anemia Unspecified iron deficiency anemia documented in this encounter Additional Health Concerns Assessment Noted Time PHQ-9 Depression Total Score: 0 07/28/20 23 9:42 AM EDT documented as of this encounter Care Teams Hands Parter Relationship Specialty Start Date End Date Sammie Maharaj MD [address] [place] [address] PCP - General Family Medicine 10/10/18 Loyda Glaser, ERVIN [address] [place] [address] Automotive Technology Instructor Family Medicine 10/31/23 Yasmin Ho MD [address] [place] [address] [phone] Gastroenterology 08/29/24 Manuel Carpenter PA [facility] [address] [facility] [address] Neurology 08/29/24 Paola Tolentino, POT SANDER [address] [address] Endocrinology 10/24/24 [facility] Psychology Psychology 12/19/24 documented as of this encounter
--- OUTSIDE RECORDS SUMMARY | 2025-09-30 09:02 | XMS_ITS | Encounter Summary ---
Author Organization [employer] Address [address] [facility] [address] [address] [address] 7t [place] [address] Care Team Providers Care Bicycle I Assembler Name Role Phone Sammie Maharaj MD Primary Care Provider [phone]- [phone] Loyda Glaser RN Unavailable [phone] Yasmin Ho MD Unavailable [phone] Reason for Visit * Reason Onset Date Comments call back 08/22/2025 Encounter Details Date Type Department Care Team ([facility] st Contact Info) Description 08/22/2025 Telephone [facility] MEDICINE [address] [place], [place] [phone] Sammie Maharaj MD 230 [place], [place] [phone] call back Social History Tobacco Use Types [...] requesting a call back. Contact pt at [phone] documented in this encounter Plan of Treatment Upcoming Encounters Date Type Department Care Team (Late st Contact Info) Description 10/09/2025 10:15 AM EST Office Visit [facility] MED[facility]INE [address] [place] [address] Miriam Shipman MD 230 [place] [address] 11/07/2025 9:15 AM EST Office Visit [facility] [address] [place] [address] Sammie Maharaj MD 230 [place] [address] documented as of this encounter Visit Diagnoses Not on filedocumented in this encounter Additional Health Concerns Assessment Noted Time PHQ-9 Depression Total Score: 0 10/24/19 9:33 AM EST documented as of this encounter Care Teams Bicycle I Assembler Relationship Specialty Start Date End Date Sammie Maharaj MD [address] [place] [address] PCP - General Family Medicine 10/10/18 Loyda Glaser, ERVIN [address] [place] [address] Hospice Superintendent Family Medicine 10/31/23 Yasmin Ho MD [address] [place] [address] Gastroenterology 08/29/24 Manuel Carpenter PA [address] [address] Neurology 08/29/24 Paola Tolentino NP [address] [address] Endocrinology 10/24/24 [facility] Psychology Psychology 12/19/24 documented as of this encounter
--- OUTSIDE RECORDS SUMMARY | 2025-09-30 09:02 | XMS_ITS | Patient Health Record ---
Author Organization [facility] Address [address] [place] [address] Care Team Providers Care Tabulating Supervisor Name Role Phone Sammie Maharaj MD Primary Care Provider Peggy vailable Varun Lou Unavailable [phone] Reason For Referral No Information Medications Medication SIG (Take, Route, Fr equency, Duration) Notes Start Date End Date Status Omeprazole 40mg Ac tive Nadolol 40mg Activ e Social History Section Notes: She does not smoke nor use a ny alcohol Problems Problem Type SNOMED Code ICD Code Onset Dates Problem Status W/U Status Risk Notes Problem Anemia (748178881) Unspecified anemia (285.9) Active confirmed Problem Esophageal varices without bleeding (66568092) Esophageal varices without mention of bleeding (456.1) Active confirmed Problem Ascites (915873019) Ascites, other (789.59) Active confirmed Problem Liver function tests abnormal (642470524) Nonspecific abnormal results of liver function study [...] Start Date Coverage End Date MEDICAID OF [facility] [address] [place] [phone] [id number] BROOK MARIA Self - patient is the insured Medical (General) History Medical History History ICD Code 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
--- OUTSIDE RECORDS SUMMARY | 2025-09-30 09:02 | XMS_ITS | Encounter Summary ---
Author Organization [employer] Address [address] [facility] [address]t [place] [address] Care Team Providers Care Physical Chemistry Professor Name Role Phone Sammie Maharaj MD Primary Care Provider [phone]- [phone] Loyda Glaser RN Unavailable [phone] Yasmin Ho MD Unavailable [phone] Reason for Visit * Reason Onset Date Comments Durable Medical Equipment 09/25/2025 Encounter Details Date Type Department Care Team (Late st Contact Info) Description 09/25/2025 Telephone [facility] MEDICINE [address] [place] [address] Sammie Maharaj MD [address] [place], [place] [phone] Durable Medical Equipment Social History Tobacco Use [...] long handle shower spray Contact Laxmi julio [phone] documented in this encounter Plan of Treatment Upcoming Encounters Date Type Department Care Team (Late st Contact Info) Description 10/09/2025 10:15 AM EST Office Visit [facility] MEDICINE [address] [place] [address] Miriam Shipman MD [address] [place] [address] 11/07/2025 9:15 AM EST Office Visit [facility] [address] [place] [address] [phone] Sammie Maharaj MD [address] [place] [address] [phone] documented as of this encounter Visit Diagnoses Not on filedocumented in this encounter Additional Health Concerns Assessment Noted Time PHQ-9 Depression Total Score: 0 10/24/19 9:33 AM EST documented as of this encounter Care Teams Physical Chemistry Professor Relationship Specialty Start Date End Date Sammie Maharaj MD 230 [place] [address] PCP - General Family Medicine 10/10/18 Loyda Glaser, ERVNI 230 [place] [address] Ware Tester Family Medicine 10/31/23 Yasmin Ho MD 55 [place] [address] Gastroenterology 08/29/24 Manuel Carpenter PA [facility] 55 [facility] [address] Neurology 08/29/24 Paola Tolentino, JET SKI MECHANIC [address] [address] Endocrinology 10/24/24 [facility] Psychology Psychology 12/19/24 documented as of this encounter
--- OUTSIDE RECORDS SUMMARY | 2025-09-30 09:02 | XMS_ITS | Encounter Summary ---
Author Organization [employer] Address 75 [facility] 7t [place] [address] Care Team Providers Care Helper Teacher Name Role Phone Sammie Maharaj MD Primary Care Provider [phone]- [phone] Loyda Glaser RN Unavailable [phone] Yasmin Ho MD Unavailable [phone] Reason for Visit * Reason Onset Date Comments Durable Medical Equipment 09/24/2025 DME: I ncontinence Supplies Encounter Details Date Type Department Care Team ([facility] st Contact Info) Description 09/24/2025 Telephone [facility] MEDICINE 230 [place] [address] Sammie Maharaj MD [address] [place] [address] Durable Medical Equipment (DME: Incontinence Supplies) Social [...] and Gloves was generated and uploaded to [employer] [facility] Once Sales Trader was informed via Message. 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 [employer] requesting a DME order for diapers sz xsmall or small , gloves sz large, bed pads and masks -Contact Laxmi at [phone] (liberian) documented in this encounter Plan of Treatment Upcoming Encounters Date Type Department Care Team ([facility] st Contact Info) Description 10/09/2025 10:15 AM EST Office Visit [facility]INE [address] [place] [address] Miriam Shipman MD 230 [place] [address] 11/07/2025 9:15 AM EST Office Visit [facility] [address] [place] [address] Sammie Maharaj MD [address] [place] [address] documented as of this encounter Visit Diagnoses Not on filedocumented in this encounter Additional Health Concerns Assessment Noted Time PHQ-9 Depression Total Score: 0 10/24/19 9:33 AM EST documented as of this encounter Care Teams Helper Teacher Relationship Specialty Start Date End Date Sammie Maharaj MD [address] [place] [address] PCP - General Family Medicine 10/10/18 Loyda Glaser RN [address] [place] [address] Prison Guard Family Medicine 10/31/23 Yasmin Ho MD [address] [place] [address] Gastroenterology 08/29/[address] [facility] 55 [facility] [address] Neurology 08/29/24 Paola Tolentino NP [address] [address] Endocrinology 10/24/24 [facility] Psychology Psychology 12/19/24 documented as of this encounter
--- OUTSIDE RECORDS SUMMARY | 2025-09-30 09:02 | XMS_ITS | Encounter Summary ---
Author Organization [employer] Address [address] [facility] [facility] [address] 7t [place] [address] Care Team Providers Care Zoning Administrator Name Role Phone Sammie Maharaj MD Primary Care Provider [phone]- [phone] Loyda Glaser RN Unavailable [phone] Yasmin Ho MD Unavailable Reason for Visit * Reason Onset Date Comments order 09/30/2025 Encounter Details Date Type Department Care Team ([facility] st Contact Info) Description 09/30/2025 Telephone [facility] MEDICINE 230 [place], [place] [phone] Sammie Maharaj MD 230 [place], [place] [phone] order Social History Tobacco Use Types Packs/Day [...] encounter Miscellaneous Notes * Telephone Encounter - Amy Tavares - 09/30/2025 8:44 AM EST TC from [facility] requesting that orders be faxed for the following: Internal feeding Flush Tooth size Side care Surgical wound care Fax #[phone] Contact Loulou at [phone] documented in this encounter Plan of Treatment Upcoming Encounters Date Type Department Care Team ([facility] st Contact Info) Description 10/09/2025 10:15 AM EST Office Visit [facility] MEDICINE [address] [place] [address] Miriam Shipman MD [address] [place] [address] 11/07/2025 9:15 AM EST Office Visit [address] [phone] Sammie Maharaj MD [address] [place] [address] [phone] documented as of this encounter Visit Diagnoses Not on filedocumented in this encounter Additional Health Concerns Assessment Noted Time PHQ-9 Depression Total Score: 0 01/15/20 25 9:33 AM EST documented as of this encounter Care Teams Zoning Administrator Relationship Specialty Start Date End Date Sammie Maharaj MD 230 [place] [address] PCP - General Family Medicine 10/10/18 Loyda Glaser, ERVIN [address] [place] [address] Warehouse Operations Associate Family Medicine 10/31/23 Yasmin Ho MD 55 [place] [address] Gastroenterology 08/29/24 Manuel Carpenter PA [facility] 55 [facility] [address] Neurology 08/29/24 Paola Tolentino, SUPERVISOR MICROWAVE [address] [address] Endocrinology 10/24/24 [facility] Psychology Psychology 12/19/24 documented as of this encounter
--- OUTSIDE RECORDS SUMMARY | 2025-09-30 09:02 | XMS_ITS | Encounter Summary ---
Author Organization [employer] Address [address] [facility] [address] 7t [place] [address] Care Team Providers Care Skip Operator Name Role Phone Sammie Maharaj MD Primary Care Provider [phone]- [phone] Loyda Glaser RN Unavailable [phone] Yasmin Ho MD Unavailable [phone] Reason for Visit * Reason Onset Date Comments Durable Medical Equipment 09/24/2025 Encounter Details Date Type Department Care Team (Late st Contact Info) Description 09/24/2025 Telephone [facility] MEDICINE 230 [place] [address] Sammie Maharaj MD 230 [place], [place] [phone] Durable Medical Equipment Social History Tobacco Use [...] PM EST Tc from Laxmi Sheehan pt MANAGER SERVICES stating pt had a liver transplant and was discharged yesterday she is requesting a DME order for recliner , she states contacted insurance and they advised needing pcp order Contact at [phone] documented in this encounter Plan of Treatment Upcoming Encounters Date Type Department Care Team (Late st Contact Info) Description 10/09/2025 10:15 AM EST Office Visit [address] [address] Miriam Shipman MD [address] [place] [address] 11/07/2025 9:15 AM EST Office Visit [address] [phone] Sammie Maharaj MD [address] [place] [address] [phone] documented as of this encounter Visit Diagnoses Not on filedocumented in this encounter Additional Health Concerns Assessment Noted Time PHQ-9 Depression Total Score: 0 10/24/19 25 9:33 AM EST documented as of this encounter Care Teams Skip Operator Relationship Specialty Start Date End Date Sammie Maharaj MD 230 [place] [address] PCP - General Family Medicine 10/10/18 Loyda Glaser, ERVIN [address] [place] [address] Neuropsychiatric Aide Family Medicine 10/31/23 Yasmin Ho MD 55 [place], [place] [phone] Gastroenterology 08/29/24 Manuel Carpenter PA [facility] 55 [facility] [address] Neurology 08/29/24 Paola Tolentino NP [facility] 291 [facility] [address] Endocrinology 10/24/24 [facility] Psychology Psychology 12/19/24 documented as of this encounter
--- OUTSIDE RECORDS SUMMARY | 2025-09-30 09:02 | XMS_ITS | Encounter Summary ---
Author Organization [employer] Address [address] [place] [address] 7t [place] [address] Care Team Providers Care Molder Automobile Carpets Name Role Phone Sammie Maharaj MD Primary Care Provider [phone]- [phone] Loyda Glaser RN Unavailable [phone] Yasmin Ho MD Unavailable Encounter Details Date Type Department Care Team (Late st Contact Info) Description 12/01/2022 Orders Only [facility] MEDICINE [address] [place] [address] [phone] Ericka Osei MD [address] [place] [address] [phone] Visual problems (Primary Dx) Social History Tobacco [...] Description 10/09/2025 10:15 AM EST Office Visit [address] [phone] Miriam Shipman MD [address] [place] [address] [phone] 11/07/2025 9:15 AM EST Office Visit [address] [address] Sammie Maharaj MD [address] [place] [address] documented as of this encounter Visit Diagnoses Diagnosis Visual problems- Primary documented in this encounter Care Teams Molder Automobile Carpets Relationship Specialty Start Date End Date Sammie Maharaj MD [address] [place] [address] PCP - General Family Medicine 10/10/18 Loyda Glaser, RN [address] [place] [address] Painter Structural Steel Family Medicine 10/31/23 Yasmin Ho MD [address] [place] [address] Gastroenterology 08/29/24 Manuel Carpenter PA [facility] 55 [facility] [address] Neurology 08/29/24 Paola Tolentino NP [address] [address] Endocrinology 10/24/24 [facility] Psychology Psychology 12/19/24 documented as of this encounter
--- OUTSIDE RECORDS SUMMARY | 2025-09-30 09:02 | XMS_ITS | Encounter Summary ---
Author Organization [employer] Address [address] [facility] [address] [place] [address] Care Team Providers Care Rolling Machine Operator Name Role Phone Sammie Maharaj MD Primary Care Provider [phone]- [phone] Loyda Glaser RN Unavailable [phone] Yasmin Ho MD Unavailable Reason for Visit * Reason Comments Med Refill Encounter Details Date Type Department Care Team (Late st Contact Info) Description 06/02/2025 Refill [facility] 230 [place], [place] [phone] Sammie Maharaj MD 230 [place], [place] [phone] Tinea unguium Social History Tobacco Use Types [...] Description 10/09/2025 10:15 AM EST Office Visit [address] [address] Miriam Shipman MD [address] [place] [address] 11/07/2025 9:15 AM EST Office Visit [address] [address] Sammie Maharaj MD [address] [place] [address] [phone] documented as of this encounter Visit Diagnoses Diagnosis Tinea unguium Dermatophytosis of nail documented in this encounter Additional Health Concerns Assessment Noted Time PHQ-9 Depression Total Score: 0 10/24/19 25 9:33 AM EST documented as of this encounter Care Teams Rolling Machine Operator Relationship Specialty Start Date End Date Sammie Maharaj MD [address] [place] [address] PCP - General Family Medicine 10/10/18 Loyda Glaser, RN [address] [place] [address] [place] [address] Drying Room Operator Family Medicine 10/31/23 Yasmin Ho MD [address] [place] [address] Gastroenterology 08/29/24 Manuel Carpenter PA [facility] 55 [facility] [address] Neurology 08/29/24 Paola Tolentino NP [address] [address] Endocrinology 10/24/24 [facility] Psychology Psychology 12/19/24 documented as of this encounter
--- OUTSIDE RECORDS SUMMARY | 2025-09-30 09:02 | XMS_ITS | Encounter Summary ---
Author Organization [employer] Address [address] [facility] [address] 7t [place] [address] Care Team Providers Care Installation Coordinator Name Role Phone Sammie Maharaj MD Primary Care Provider [phone]- [phone] Loyda Glaser RN Unavailable [phone] Yasmin Ho MD Unavailable [phone] Reason for Visit * Reason Onset Date Comments verbal orders 09/25/2025 Encounter Details Date Type Department Care Team ([facility] st Contact Info) Description 09/25/2025 Telephone [facility] MEDICINE [address] [place] [address] Sammie Maharaj MD 230 [place], [place] [phone] verbal orders Social History Tobacco Use Types [...] Telephone call returned to Laxmi from [facility]. No answer, left v/m. * Telephone Encounter - Kaye Andersen - 09/25/2025 9:38 AM EST Tc from Laxmi Crain at [facility] requesting verbal orders for home PT Contact Laxmi at [phone] documented in this encounter Plan of Treatment Upcoming Encounters Date Type Department Care Team (Late st Contact Info) Description 10/09/2025 10:15 AM EST Office Visit [facility] MEDICINE [address] [place] [address] Miriam Shipman MD 230 [place] [address] 11/07/2025 9:15 AM EST Office Visit [facility] MEDICINE [address] [place] [address] Sammie Maharaj MD 230 [place] [address] documented as of this encounter Visit Diagnoses Not on filedocumented in this encounter Additional Health Concerns Assessment Noted Time PHQ-9 Depression Total Score: 0 10/24/19 9:33 AM EST documented as of this encounter Care Teams Installation Coordinator Relationship Specialty Start Date End Date Sammie Maharaj MD [address] [place] [address] PCP - General Family Medicine 10/10/18 Loyda Glaser RN [address] [place] [address] Grid Inspector Family Medicine 10/31/23 Yasmin Ho MD [address] [place] [address] Gastroenterology 08/29/24 Manuel Carpenter PA [address] [address] Neurology 08/29/24 Paola Tolentino NP [address] [address] Endocrinology 10/24/24 [facility] Psychology Psychology 12/19/24 documented as of this encounter
[2025-09-30 09:44] LABS: Hematocrit 50.9 % (37.0-47.0); Hemoglobin 15.7 g/dl (12.0-16.0); Imm Gran Abs Auto 0.06 X10*3/uL (0.00-0.03); Imm Gran Pct Auto 0.7 % (0.0-0.4); Lymphocytes Absolute Auto 0.7 X10*3/uL (1.2-4.9); Mean Corpuscular HGB Conc 30.8 g/dl (31.0-35.0); Mean Corpuscular Hemoglobin 28.4 pg (27.0-33.0); Mean Corpuscular Volume 92.2 fL (80.0-98.0); NRBC Abs Auto 0.000 X10*3/uL (0.0-0.012); NRBC Pct Auto 0.0 /100WBC (0.0-0.2); Platelet Count 242 X10*3/uL (160-400); Red Blood Count 5.52 X10*6/uL (4.20-5.50); White Blood Count 8.7 X10*3/uL (4.8-10.8)
[2025-09-30 09:47] LABS: INTERNATIONAL NORM RATIO 1.1 (0.9-1.1); Prothrombin Time 13.1 SEC (11.2-13.5)
[2025-09-30 10:33] LABS: Alanine Aminotransferase 366 U/L (0-31); Albumin Level 4.1 g/dL (3.5-5.0); Alkaline Phosphatase 284 U/L (39-117); Anion Gap 14 (12-20); Aspartate Amino Transferase 158 U/L (5-31); Blood Urea Nitrogen 35 mg/dL (9-16); Calcium 9.2 mg/dL (8.4-10.2); Carbon Dioxide 29 mmol/L (22-29); Chloride 98 mmol/L (96-108); Estimated Glomerular Filt Rate > 60; Magnesium 1.8 mg/dL (1.6-2.6); Potassium 3.6 mmol/L (3.3-5.1); Sodium 137 mmol/L (135-145); Total Protein 7.7 g/dL (6.5-8.0)
[2025-10-01 06:18] LABS: Tacrolimus Prograf 5.1 mcg/L
== END 2025-09-30 08:40 | disposition home or self-care (01) ==
LOC: HO.LABR 08:39
PROVIDERS: PCP Internal Medicine; Visit Provider Internal Medicine
DX: Z94.4 Liver transplant status (principal); Z01.84 Encounter for antibody response examination
CPT/HCPCS: 36415; 80053; 80197; 83735; 84100; 85025; 85610; 86644; 86645

== ENCOUNTER 2025-10-07 08:01 | Outpatient (REF) | payer OTHER, SELFPAY ==
--- OUTSIDE RECORDS SUMMARY | 2025-10-07 08:04 | XMS_ITS | Clinical Summary ---
Author Organization [employer] Address [address] [place] [address] 7[address] [place] [address] Care Team Providers Care Grounds Maintenance Worker Name Role Phone Sammie Maharaj MD Primary Care Provider [phone] Loyda Glaser RN Unavailable [phone] Yasmin Ho MD Unavailable [phone] Allergies Active Allergy Reactions Criticality Noted Date Comments Acetaminophen 09/09/2014 Other reaction(s): Rash Latex Rash Low 06/29/2023 Medications Continuous Glucose Sensor (FreeStyle Charlotte 3 Plus Sensor) miscIndicatio ns:Type 2 diabetes mellitus with hyperglycemia , with long-term current use of insulin ([facility]) [facility] Active insulin glargine (Lantus) 100 UNIT/ML injectionIndi cations:Type 2 diabetes mellitus with hyperglycemia , with long-term current use of insulin ([facility]) Inject under the skin at bedtime. Injecting 14 units daily as directed by veterinary surgeon Active ursodiol (Actigall) 250 MG tabletIndicat ions:End stage liver disease (CMS/HCC) (HCC) Take 250 mg by mouth [address] Marilee SOSA [facility] Active beta carotene (vitamin A) 3 MG (74082 UT) capsuleIndica tions:End stage liver disease (CMS/HCC) (HCC) Take 10,000 Units by mouth Once per day. Per SHEILA Perez at [facility] liver CLinic Active insulin pen needle [...] different from the original. [facility] provider line [phone], called 09/29/23 Breanna Burleson [phone]. 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 They are aware of Hep [...] if needed. I spoke with Liz at [facility] liver transplant clinic, explained the situation and ask them to run the pictures and case by wind turbine electrical engineer in case this is not related to [...] Overview (03/13/2025): CT abd pelvis ordered by [facility] and dated 01/28/24 [...] appear significantly changed from 2021, possibly reactive. [facility] not from 02/24/24 Telephone Encounter - Katy Boateng RN 10:24 AM LVM for patient using site interpreter, Ari [id number], about results of MRI and scheduling of [...] AM EST): CT abd pelvis ordered by [facility] liver [facility] and dated 01/28/24 [...] RN 10:24 AM LVM for patient using site interpreter, [employer] [id number], about results of MRI and scheduling of [...] AM EDT): CT abd pelvis ordered by [facility] liver clinic and dated 01/28/24 [...] RN 10:24 AM LVM for patient using site interpreter, [employer] [id number], about results of MRI and scheduling of [...] 11/14/2023 Overview (01/18/2024): -she has fired several operating room nurse in the past. I called [facility] provider line [phone], 09/29/23 and spoke to abdelrahman Hussein Burleson [phone]. He reported extensive hx of working it pt and she was on the waiting list for starvros. Her FERRY HAND will be Laxmi Mas her friend. -She has been approved for FERRY HAND hours but have not started yet as of 01/18/2024 Assessment & Plan (07/03/2025 12:00 PM EDT): -she has fired several operating room nurse in the past. I called [facility] provider line [phone], 09/29/23 and [facility] to [facility] [phone]. He reported extensive hx of working it pt and she was on the waiting list for starvros. Her FERRY HAND will be Laxmi Mas her friend. -She has been approved for FERRY HAND hours but have not started yet as of 01/18/2024 Assessment & Plan (01/18/2024 9:17 AM EDT): -she has fired several operating room nurse in the past. I called [facility] provider line [phone], 09/29/23 and spoke to [facility] [phone]. He reported extensive hx of working it pt and she was on the waiting list for starvros. Her FERRY HAND will be Laxmi Mas her friend. -She has been approved for FERRY HAND hours but have not started yet as of 01/18/2024 Pain in hand and fingers 09/29/2023 Overview (01/18/2024): -refer to occupational therapy 01/18/2024 Assessment & Plan (09/29/2023 11:55 AM EST): No etiology on exam. Pt high risk for dyupetryns. Recommend warm wraps and rest. Other specified health status 07/21/2023 Overview (07/03/2025): -next comprehensive annual evaluation due after 07/09/25 [facility] [address] [facility]health care proxy paperwork filed 07/09/24 Assessment & Plan (07/03/2025 12:00 PM EDT): -next comprehensive annual evaluation due after 07/09/25 -[facility] [address] -health care proxy paperwork filed 07/09/24 Assessment & Plan (03/13/2025 3:41 PM EDT): -next physical exam due after 07/09/25 -eye care facilitated by [facility] -dental home is [address] -health care proxy paperwork filed 07/09/24 Assessment & Plan (12/19/2024 1:03 PM EDT): -next physical exam due after 07/09/25 -[facility] [address] -health care proxy paperwork filed 07/09/24 Assessment & Plan (10/24/2024 9:48 AM EST): -next physical exam due after 07/09/25 -[facility] [address] -health care proxy paperwork given 10/20/23. Filed 07/09/24 Assessment & Plan (07/09/2024 10:17 AM EDT): -next physical exam due after 07/09/25 -eye care facilitated by [facility] -dental home is [facility] -health care proxy paperwork given 10/20/23. Filed 07/09/24 Assessment & Plan (01/18/2024 9:16 AM EDT): -next physical exam due after 07/28/2024 -eye care facilitated by [facility] -dental home is none -health care proxy paperwork given 10/20/23 Assessment & Plan (10/20/2023 9:33 AM EST): -next physical exam due after 07/28/2024 -eye care facilitated by [facility] referral placed 09/29/23 -dental home is none -health care proxy paperwork given 10/20/23 Assessment & Plan (09/29/2023 11:46 AM EST): -next physical exam due after 07/28/2024 -eye care facilitated by [facility] referral placed 09/29/23 -dental home is none Assessment & Plan (07/28/2023 10:05 AM EDT): -next physical exam due after 07/28/2024 -eye care facilitated by [facility] -dental home is none Type 2 [...] upgrade to the freestyle charlotte 3 CGM. -[facility] endo 03/22/25 recommended reducing her [...] low dose of basal insulin for now. [facility] endo note 08/27/25 no basil insulin for now, regular insulin 5 units q 6 hours while inpatient Assessment & Plan (07/03/2025 12:00 PM EDT): -[facility] Diabetes are controlled. -CGM training [...] upgrade to the freestyle charlotte 3 CGM. -[facility] endo 03/22/25 recommended reducing her [...] Plan (03/13/2025 3:49 PM EDT): -Followed by [facility] Diabetes are controlled. -CGM training [...] Plan (12/19/2024 1:03 PM EDT): -Followed by [facility] Diabetes are controlled. -CGM training [...] approval for her to upgrade to the [employer] charlotte 3 CGM. Assessment & Plan (10/24/2024 [...] approval for her to upgrade to the [employer] charlotte 3 CGM. Assessment & Plan (07/09/2024 [...] approval for her to upgrade to the [employer] charlotte 3 CGM. Assessment & Plan (01/18/2024 [...] with donor 08/18/[address] June at [facility] due to cryptogenic cirrhosis -complicated by intraluminal and intraneural duodenal hematoma requiring placement of GJ tube fro gastric decompression and feeds via GJ. [facility] Cryptogenic cirrhosis with hx presinusoidal portal [...] 2.19 log 09/02/25. She is followed by [facility] Liver Clinic. -s/p liver transplant with donor 08/18/25 at [facility]--given donor HBV PCR positive, continue entecavir [...] up of fevers, SOB and tachy[facility] , in her G tube had copious [...] clinically improved and was discharged back to [place] on 09/10/2025 with plan for two week [...] recover from her recent liver transplant at [facility]. She will likely be discharged home on [...] have weekly lab draws going forward at [facility] (Lab order to be provided on [...] up hematoma. Will see Ninoska Kiser (transplant carpenter assistant installer) next week during discharge appointments. Intraabdominal abscess: [...] 2017 was negative. She is followed by [facility] Liver Clinic. -liver biopsy 2019 [...] services with Dr. Yasmin Ho MD of [facility] GI 02/2024, note reviewed: She [...] 2021, possibly reactive. -liver biopsy done at [facility] 05/01/24, results pending -liver biopsy [...] Saw [facility]atology [facility]. Per note, she remains active on LT waitlist with an updated MELD 3.0 of 19 based on blood work in April 2024. Etiology of her liver disease and progressive jaundice remains unclear despite prior MRI/MRCP and interval liver biopsy in May 2024 which was non-specific with non-specific findings which we reviewed with patient and [id number] again today. We recommended continuation of empiric [...] labs show elevated LFTs. Labs sent to wind turbine electrical engineer. Due to increased bilirubin, labs were sent to wind turbine electrical engineer who reports chronically elevated due to chol [...] no additional pathology. 06/05/25 saw GI at [facility] had EGD that showed no [...] 2017 was negative. She is followed by [facility] Liver Clinic. -liver biopsy 2019 [...] services with Dr. Yasmin Ho MD of [facility] GI 02/2024, note reviewed: She [...] 2021, possibly reactive. -liver biopsy done at [facility] 05/01/24, results pending -liver biopsy [...] Saw Transplant Hepatology and GI specialist at [facility] on 09/11/24. Per note, she remains active on LT waitlist with an updated MELD 3.0 of 19 based on blood work in April 2024. Etiology of her liver disease and progressive jaundice remains unclear despite prior MRI/MRCP and interval liver biopsy in May 2024 which was non-specific with non-specific findings which we reviewed with patient and [id number]-[id number] again today. We recommended continuation of empiric [...] labs show elevated LFTs. Labs sent to wind turbine electrical engineer. 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 Recommending redraw next week with PT and INR to update meld. Lab order was faxed. -reordered labs 12/05/24, stable and [facility] aware -CT 01/08/25 with Liver [...] 2017 was negative. She is followed by [facility] Liver Clinic. -liver biopsy 2019 [...] services with Dr. Yasmin Ho MD of [facility] GI 02/2024, note reviewed: She [...] 2021, possibly reactive. -liver biopsy done at [facility] 05/01/24, results pending -liver biopsy [...] Saw Transplant Hepatology and GI specialist at [facility] on 09/11/24. Per note, she remains active on LT waitlist with an updated MELD 3.0 of 19 based on blood work in April 2024. Etiology of her liver disease and progressive jaundice remains unclear despite prior MRI/MRCP and interval liver biopsy in May 2024 which was non-specific with non-specific findings which we reviewed with patient and [id number]-[id number] again today. We recommended continuation of empiric [...] labs show elevated LFTs. Labs sent to wind turbine electrical engineer. 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 Recommending redraw next week with PT and INR to update meld. Lab order was faxed. -reordered labs 12/05/24, stable and [facility] aware Assessment & Plan (12/05/2024 [...] 2017 was negative. She is followed by [facility] Liver Clinic. -liver biopsy 2019 [...] services with Dr. Yasmin Ho MD of [facility] GI 02/2024, note reviewed: She [...] 2021, possibly reactive. -liver biopsy done at [facility] 05/01/24, results pending -liver biopsy [...] Saw Transplant Hepatology and GI specialist at [facility] on 09/11/24. Per note, she remains active on LT waitlist with an updated MELD 3.0 of 19 based on blood work in April 2024. Etiology of her liver disease and progressive jaundice remains unclear despite prior MRI/MRCP and interval liver biopsy in May 2024 which was non-specific with non-specific findings which we reviewed with patient and [id number] again today. We recommended continuation of empiric [...] labs show elevated LFTs. Labs sent to wind turbine electrical engineer. Due to increased bilirubin, labs were sent to wind turbine electrical engineer who reports chronically elevated due to chol [...] 2017 was negative. She is followed by [facility] Liver Clinic. -liver biopsy 2018 [...] services with Dr. Yasmin Ho MD of [facility] GI 02/2024, note reviewed: She [...] 202, possibly reactive. -liver biopsy done at [facility] 05/01/24, results pending -liver biopsy [...] Saw Transplant Hepatology and [facility] specialist at [facility] on 09/11/24. Per note, she remains active on LT waitlist with an updated MELD 3.0 of 19 based on blood work in April 2024. Etiology of her liver disease and progressive jaundice remains unclear despite prior MRI/MRCP and interval liver biopsy in May 2024 which was non-specific with non-specific findings which we reviewed with patient and rhvzqn-[id number] again today. We recommended continuation of empiric [...] 2017 was negative. She is followed by [facility] Liver Clinic. -liver biopsy 2019 [...] services with Dr. Yasmin Ho MD of [facility] GI 02/2024, note reviewed: She [...] 2021, possibly reactive. -liver biopsy done at [facility] 05/01/24, results pending -liver biopsy [...] not drive), baths or swimming. Awaiting new FERRY HAND provider. Daughter aware of how to call 911. Followed by neurologist, -followed by Dr. Jono Eden at [facility] [employer]. Next appointment 08/2024 -she self dc d her aspirin. I recommended she called neurology to get refills on her medication -she has been seizure free with Zonisamide 200 mg nightly and ran out of supplies 6 months ago. I recommend to resume Zonisamide since her risk of recurrent seizure is over 60% due to her prior hemorrhagic stroke. -Saw Neurologist at [facility] 08/20/24, Plan: continue ZNS 200 mg [...] not drive), baths or swimming. Awaiting new FERRY HAND provider. Daughter aware of how to call 911. Followed by neurologist, -followed by Dr. Jono Eden at [facility] [employer]. Next appointment 08/2024 -she self dc d her aspirin. I recommended she called neurology to get refills on her medication -she has been seizure free with Zonisamide 200 mg nightly and ran out of supplies 6 months ago. I recommend to resume Zonisamide since her risk of recurrent seizure is over 60% due to her prior hemorrhagic stroke. -Saw Neurologist at [facility] 08/20/24, Plan: continue ZNS 200 mg [...] not drive), baths or swimming. Awaiting new FERRY HAND provider. Daughter aware of how to call 911. Followed by neurologist, -followed by Dr. Jono Eden at [facility]. Next appointment 08/2024 -she self dc d her aspirin. I recommended she called neurology to get refills on her medication -she has been seizure free with Zonisamide 200 mg nightly and ran out of supplies 6 months ago. I recommend to resume Zonisamide since her risk of recurrent seizure is over 60% due to her prior hemorrhagic stroke. -Saw Neurologist at [facility] 08/20/24, Plan: continue ZNS 200 mg [...] not drive), baths or swimming. Awaiting new FERRY HAND provider. Daughter aware of how to call 911. Followed by neurologist, -followed by Dr. Jono Eden at [facility]. Next appointment 08/2024 -she self dc d her aspirin. I recommended she called neurology to get refills on her medication -she has been seizure free with Zonisamide 200 mg nightly and ran out of supplies 6 months ago. I recommend to resume Zonisamide since her risk of recurrent seizure is over 60% due to her prior hemorrhagic stroke. -Saw Neurologist at [facility] 08/20/24, Plan: continue ZNS 200 mg [...] not drive), baths or swimming. Awaiting new FERRY HAND provider. Daughter aware of how to call 911. Followed by neurologist, -followed by Dr. Jono Eden at [facility]. Next appointment 08/2024 [...] -[facility] follow up on [facility] at [facility] Assessment & Plan (10/20/2023 8:57 AM [...] in her care. She has had multiple operating room nurse which she has fired and multiple case [...] in her care. She has had multiple operating room nurse which she has fired and multiple case [...] in her care. She has had multiple operating room nurse which she has fired and multiple case [...] in her care. She has had multiple operating room nurse which she has fired and multiple case [...] in her care. She has had multiple operating room nurse which she has fired and multiple case [...] Swelling of right ear 12/19/20242024 Overview (12/19/2024): [facility] (12/08/2024 - 12/10/2024) Patient presented for evaluation of ear pain and redness. Dx acute perichondritis. Treated with IV cefepime due to extensive infection. No sepsis. Some crusting but significant improvement in swelling. Discharged home with Levaquin to complete a total of 10 days of antibiotics and 4 days of prednisone. Se[facility] by [facility] on 12/14/24 at pt's home for bilateral leg swelling. Slight non-pitting edema to superior side of distal feet. BGL was 230 as pt was eating dinner and about to administer insulin shortly after. She was told it was due to prednisone. She stopped her prednisone and symptoms resolved. Pt called her specialist in [place]. She is doing much better. She showed me a photo of her year that was severely inflamed with vesicles and erythremia. This has resoled and no longer on prednisone. She requests letter to keep her dog at home due to her anxiety. Assessment & Plan (12/19/2024 1:01 PM EDT): [facility] (12/08/2024 - 12/10/2024) Patient presented for evaluation of ear pain and redness. Dx acute perichondritis. Treated with IV cefepime due to extensive infection. No sepsis. Some crusting but significant improvement in swelling. Discharged home with Levaquin to complete a total of 10 days of antibiotics and 4 days of prednisone. [facility] pt's home for bilateral leg swelling. Slight non-pitting edema to superior side of distal feet. BGL was 230 as pt was eating dinner and about to administer insulin shortly after. She was told it was due to prednisone. She stopped her prednisone and symptoms resolved. Pt called her specialist in [place]. She is doing much better. She showed [...] 2017 was negative. She is followed by [facility] Liver Clinic. -liver biopsy 2019 [...] services with Dr. Yasmin Ho MD of [facility] GI 12/12/2023, note reviewed Cirrhosis: [...] diet discussed. Avoid hepatotoxic agents. -Followed by: [facility] GI -continue ursodiol therapy given marked AP elevation and potential for AMA negative PCB. -transplant candidacy will be determined by multidisciplinary transplant committee after all appropriate testing has been performed. -Has follow up with liver transplant investigations consultant [facility] -Per pt, On liver transplant list [...] 2017 was negative. She is followed by [facility] Liver Clinic. -seen by Liver [...] diet discussed. Avoid hepatotoxic agents. -Followed by: [facility] GI -continue ursodiol therapy given marked AP elevation and potential for AMA negative PCB. -transplant candidacy will be determined by multidisciplinary transplant committee after all appropriate testing has been performed. -call place by me to [facility] primary care nurse at [facility] [phone] to stress the urgency of FERRY HAND services and increase level of care. He [...] 2017 was negative. She is followed by [facility] Liver Clinic. -seen by Liver [...] diet discussed. Avoid hepatotoxic agents. -Followed by: [facility] GI -continue ursodiol therapy given marked AP elevation and potential for AMA negative PCB. -transplant candidacy will be determined by multidisciplinary transplant committee after all appropriate testing has been performed. -call place by me to [facility] primary care nurse at [facility] Omar Juarez [phone] cell [phone] to stress the urgency of FERRY HAND services and increase level of care. He [...] 2017 was negative. She is followed by [facility] Liver Clinic. The possibility for [...] Type Department Care Team Description 09/30/[address] [address] Sammie Maharaj MD order 09/26/[address] [address] Sammie Maharaj MD Dme order ; Durable Medical Equipment (DME: [facility] One Care: Wound Care Supplies/G Tube Pole) 09/25/[address] [address] Sammie Maharaj MD Durable Medical Equipment (DME: [facility] One Care: Scale and Long Handle Hand Held Shower) 09/25/[address] [address] Sammie Maharaj MD verbal orders 09/24/[address] [address] Sammie Maharaj MD Durable Medical Equipment (DME: [facility] One [facility]: Recliner) 09/24/[address] [address] Sammie Maharaj MD Durable Medical Equipment (DME: Incontinence Supplies) 09/20/[address] [address] Sammie Maharaj MD Care Coordination; Results 09/20/[address] [address] Sammie Maharaj MD 09/20/2025 Patient Outreach [address] [address] Sammie Maharaj MD Transition Of Care (Tcm) (HDF- scheduled (direct)) 09/20/[address] [address] Sammie Maharaj MD Durable Medical Equipment (DME: [facility] One Care Request) 09/12/2025 Orders Only [address] [address] Sammie Maharaj MD Liver transplant recipient (CMS/HCC) (HCC) (Primary Dx) 08/22/[address] [address] Sammie Maharaj MD call back 07/30/2025 Refill [facility] [address] [place] [address] Sammie Maharaj MD from Last 3 Months Immunizations Immunization Administration Dates Next Due DTaP, 5 pertussis antigens 04/03/2010 Hep A, Adult 05/01/2009,02/29/2008 Hep B, adult 09/29/2023,07/28/2023,07/13/2019 Hib (HbO) 06/11/2009 Influenza injectable quadriv alent IIV4 with [...] Visit [facility] [address] [place] [address] [address] Miriam Shipman MD [address] [place] [address] 11/07/2025 9:15 AM EST Office Visit [facility] MEDICINE [address] [place] [address] Sammie Maharaj MD 230 [place] [address] 03/07/2026 9:00 AM EDT Office Visit [facility] OPTOMETRY [address] [place] [address] Darshana Bashir, OD 230 [place] [address] Health Maintenance Due Date Last Done Comments [...] hyperglycemia, with long-term current use of insulin ([facility]) ALBUMIN, RANDOM URINE W/CREATININE Routine 11/05/2024 10:20 AM EST Type 2 diabetes mellitus with hyperglycemia, with long-term current use of insulin ([facility]) LIPID PANEL, STANDARD Routine 10/24/2024 9:59 AM EST Type 2 diabetes mellitus with hyperglycemia, with long-term current use of insulin ([facility]) HEPATITIS C ANTIBODY Routine 07/28/2023 10:55 AM [...] BIRADS 2 Anatomical Region Laterality Modality Other Brendon Provider HEALTH MAINTENANCE Final Result * POCT [...] 10:20 AM EST) Creatinine, Urine 59.34 mg/dL [facility] Microalbumin Urine <5.0 mg/L [facility] Microalbum Creatinine Ratio Ur TNP <30 ug/mg cr [facility] Comment:Unable to calculate albumin/creatinine ratio due to lowmicroalbumin or creatinine result. Urine 11/05/2024 10:2 0 AM EST 11/05/2024 11:21 AM EST Sammie Maharaj MD LAB URINE ORDERABLES Final Result [facility] [address] [place] [phone] * (ABNORMAL) Lipid Panel, Standard (10/24/2024 9:59 AM EST) Triglycerides 91 <150 mg/dL [facility] Comment:Mild Icterus.Interpr et result with caution.Desirable Triglyceride: less than 150 mg/dLBorderline High Triglyceride 150-199 mg/dLHigh Triglyceride: 200-499 mg/dLVery High Triglyceride: greater than or equal to 5OO mg/dL Cholesterol 132 <200 mg/dL [facility] Comment:Mild Icterus.Interpr et result with caution.Desirable Cholesterol: less than 200 mg/dLBorderline High Cholesterol: 200-239 mg/dLHigh Cholesterol: greater than 239 mg/dL LDL Cholesterol Calculated 92 <100 mg/dL [facility] Comment:Desirable LDL: less than 100 mg/dLNear Optimal/Above Optimal LDL: 110- 129 mg/dLBorderline High LDL: 130-159 mg/dLHigh LDL: 160-189 mg/dLVery High LDL: greater than or equal to 190 mg/dL HDL Cholesterol 22(L) >40 mg/dL [facility] Comment:Desirable HDL: great er than 40 mg/dL Note: This HDL assay may give artificially low results in patients with liver disease. Blood Venous blood specimen / Unknown 10/24/2024 9:59 AM EST 10/24/2024 11:05 AM EST Sammie Maharaj MD LAB BLOOD ORDERABLES Final Result Performing Organization Address City/[facility]/ZIP Co de Phone Number [facility] [address] [place] [phone] * Hepatitis C Ab (07/28/2023 10:55 AM EDT) Hepatitis C Antibody Nonreactive Nonreactive [facility] Comment:Antibodies to HCV no t detected; does not exclude early acuteHCV infection. Blood 07/28/2023 10:5 5 AM EDT 07/28/2023 1:11 PM EDT Sammie Maharaj MD LAB BLOOD ORDERABLES Final Result Performing Organization Address City/[facility]/ZIP Co de Phone Number [facility] [address] [place] [phone] * HIV Ab/Ag (JAZ REYES) (07/28/2023 10:55 AM EDT) HIV AB/AG Nonreactive Nonreactive [facility] Comment:HIV-1 p24 Ag and/or HIV-1/HIV-2 Ab not detected.A test result that is nonreactive does not exclude thepossibility of exposure to or infection with HIV-1 and/orHIV-2. Nonreactive results in this assay for individualswith prior exposure to HIV-1 and/or HIV-2 may be due toantigen and antibody levels that are below the limit ofdetection of this assay.The [employer] HIV Ag/Ab Combo assay result andsupplemental assay results should be interpreted inconjunction with the patient's clinical presentation,history and other laboratory results. If the results areinconsistent with clinical evidence, additional testing issuggested to confirm the result. 07/28/2023 10:5 5 AM EDT 07/28/2023 1:11 PM EDT Sammie Maharaj MD LAB BLOOD ORDERABLES Final Result Performing Organization Address [facility]/ZIP Co de Phone Number [facility] [address] [place] [phone] * Pap Smear (03/25/2021 12:00 AM EDT) Swab [facility] Provider LAB CYTOLOGY ORDERABLES F inal Result Performing Organization Address City/[facility] Co de Phone Number IMAGING from Last 3 Months or Most Recently Relevant to Health Maintenance Insurance [id number] ONE CARE < 65 Advance Directives Documents on File Type Date Recorded Patient Coffee Grinder Expl anation Advance Directives and Living Will 07/09/2024 Health Care Proxy 07/09/24 Care Teams Grounds Maintenance Worker Relationship Specialty Start Date End Date [place], MD Sammie [address] [place] [address] PCP - General Family Medicine 10/10/18 Loyda Glaser, ERVIN [address] [place] [address] Buck Presser Family Medicine 10/31/23 Yasmin Ho MD [address] [place] [address] Gastroenterology 08/29/24 Manuel Carpenter PA [facility] 55 [facility] [address] Neurology 08/29/24 Paola Tolentino NP [address] [address] Endocrinology 10/24/24 [facility] Psychology Psychology 12/19/24 [facility] 09/24/25
--- OUTSIDE RECORDS SUMMARY | 2025-10-07 08:04 | XMS_ITS | Encounter Summary ---
Author Organization [employer] Address [address] 7[address] [place] [address] Care Team Providers Care Rolled Seat Trimmer Name Role Phone Sammie Maharaj MD Primary Care Provider [phone]- [phone] Loyda Glaser RN Unavailable [phone] Yasmin Ho MD Unavailable [phone] Reason for Visit * Reason Comments Med Refill Encounter Details Date Type Department Care Team (Late st Contact Info) Description 03/13/2025 Refill [facility] 230 [place], [place] [phone] Sammie Maharaj MD 230 [place], [place] [phone] Tinea unguium Social History Tobacco Use Types [...] Description 10/09/2025 10:15 AM EST Office Visit [facility] MEDICINE [address] [place] [address] Miriam Shipman MD 230 [place] [address] 11/07/2025 9:15 AM EST Office Visit [facility] MEDICINE [address] [place] [address] Sammie Maharaj MD 230 [place] [address] 03/07/2026 9:00 AM EDT Office Visit [facility] OPTOMETRY [address] [place] [address] Darshana Bashir, OD 230 [place] [address] documented as of this encounter Visit Diagnoses Diagnosis Tinea unguium Dermatophytosis of nail documented in this encounter Additional Health Concerns Assessment Noted Time PHQ-9 Depression Total Score: 0 10/24/19 25 9:33 AM EST documented as of this encounter Care Teams Rolled Seat Trimmer Relationship Specialty Start Date End Date Sammie Maharaj MD 230 [place] [address] PCP - General Family Medicine 10/10/18 Loyda Glaser, RN 230 [place] [address] Chip Frier Family Medicine 10/31/23 Yasmin Ho MD 55 [place] [address] Gastroenterology 08/29/24 Manuel Carpenter PA [facility] 55 Counts include 234 beds at the [facility] [address] Neurology 08/29/24 Paola Tolentino, GRINDER NEEDLE TIP [address] [address] Endocrinology 10/24/24 [facility] Psychology Psychology 12/19/24 [facility] 09/24/25 documented as of this encounter
--- OUTSIDE RECORDS SUMMARY | 2025-10-07 08:04 | XMS_ITS | Encounter Summary ---
Author Organization [employer] Address [address] [facility] [facility] [address] 7t [place] [address] Care Team Providers Care Workers' Compensation Claims Examiner Name Role Phone Smamie Maharaj MD Primary Care Provider [phone]- [phone] Loyda Glaser RN Unavailable [phone] Yasmin Ho MD Unavailable [phone] Reason for Visit * Reason Comments Med Refill Encounter Details Date Type Department Care Team (Late st Contact Info) Description 10/24/2024 Refill [facility] 230 [place], [place] [phone] Sammie Maharaj MD [address] [place], [place] [phone] Microcytic anemia Social History Tobacco Use Types [...] 10:15 AM EST Office Visit [facility] MEDICINE [address] [place] [address] Miriam Shipman MD 230 [place] [address] 11/07/2025 9:15 AM EST Office Visit [facility] MEDICINE [address] [place] [address] Sammie Maharaj MD 230 [place] [address] 03/07/2026 9:00 AM EDT Office Visit [facility] OPTOMETRY [address] [place] [address] Darshana Bashir, OD 230 [place] [address] documented as of this encounter Visit Diagnoses Diagnosis Microcytic anemia Unspecified iron deficiency anemia documented in this encounter Additional Health Concerns Assessment Noted Time PHQ-9 Depression Total Score: 0 10/24/19 25 9:33 AM EST documented as of this encounter Care Teams Workers' Compensation Claims Examiner Relationship Specialty Start Date End Date Sammie Maharaj MD [address] [place] [address] PCP - General Family Medicine 10/10/18 Loyda Glaser, RN [address] [place] [address] Major Donor Coordinator Family Medicine 10/31/23 Yasmin Ho MD 55 [place] [address] Gastroenterology 08/29/24 Manuel Carpenter PA [facility] 55 [facility] [address] Neurology 08/29/24 Paola Tolentino, HEBERT [address] [address] Endocrinology 10/24/24 [facility] Psychology Psychology 12/19/24 [facility] 09/24/25 documented as of this encounter
--- OUTSIDE RECORDS SUMMARY | 2025-10-07 08:04 | XMS_ITS | Encounter Summary ---
Author Organization [employer] Address [address] [facility] [address]t [place] [address] Care Team Providers Care Wind Turbine Mechanic Name Role Phone Sammie Maharaj MD Primary Care Provider [phone] Loyda Glaser RN Unavailable [phone] Yasmin Ho MD Unavailable [phone] Encounter Details Date Type Department Care Team (Late st Contact Info) Description 02/19/2025 Orders Only [facility] 230 [place], [place] [phone] Enzo Manuel MD 230 [place], [place] [phone] Social History Tobacco Use Types Packs/Day Years [...] Upcoming Encounters Date Type Department Care Team ([facility] st Contact Info) Description 10/09/2025 10:15 AM EST Office Visit [facility] MEDICINE [address] [place] [address] Miriam Shipman MD 230 [place] [address] 11/07/2025 9:15 AM EST Office Visit [facility] MEDICINE [address] [place] [address] Sammie Maharaj MD 230 [place] [address] 03/07/2026 9:00 AM EDT Office Visit [facility] OPTOMETRY [address] [place] [address] Mckay, Darshana, OD 230 [place] [address] documented as of this encounter Visit Diagnoses Not on filedocumented in this encounter Additional Health Concerns Assessment Noted Time PHQ-9 Depression Total Score: 0 10/24/19 25 9:33 AM EST documented as of this encounter Care Teams Wind Turbine Mechanic Relationship Specialty Start Date End Date Sammie Maharaj MD [address] [place] [address] PCP - General Family Medicine 10/10/18 Loyda Glaser RN 230 [place] [address] Medical File Clerk Family Medicine 10/31/23 Yasmin Ho MD 55 [place] [address] Gastroenterology 08/29/24 Manuel Carpenter PA [facility] 55 [facility] [address] Neurology 08/29/24 Paola Tolentino, MATERIAL CUTTER [address] [address] Endocrinology 10/24/24 [facility] Psychology Psychology 12/19/24 [facility] 09/24/25 documented as of this encounter
--- OUTSIDE RECORDS SUMMARY | 2025-10-07 08:04 | XMS_ITS | Encounter Summary ---
Author Organization [employer] Address [address] 7t [place] [address] Care Team Providers Care Infertility Medical Assistant Name Role Phone Sammie Maharaj MD Primary Care Provider [phone]- [phone] Loyda Glaser RN Unavailable [phone] Yasmin Ho MD Unavailable [phone] Reason for Visit * Reason Comments Med Refill Encounter Details Date Type Department Care Team (Late st Contact Info) Description 11/18/[address] [facility] 230 [place] [address] Tara Carlisle, INTENSIVE CARE MEDICINE SPECIALIST Tinea unguium Social History Tobacco Use Types [...] Description 10/09/2025 10:15 AM EST Office Visit [facility] MEDICINE [address] [place] [address] Miriam Shipman MD [address] [place] [address] 11/07/2025 9:15 AM EST Office Visit [facility] MEDICINE [address] [place] [address] Sammie Maharaj MD [address] [place] [address] 03/07/2026 9:00 AM EDT Office Visit [facility] OPTOMETRY [address] [place] [address] Mckay, Darshana, OD 230 [place] [address] documented as of this encounter Visit Diagnoses Diagnosis Tinea unguium Dermatophytosis of nail documented in this encounter Additional Health Concerns Assessment Noted Time PHQ-9 Depression Total Score: 0 07/28/20 23 9:42 AM EDT documented as of this encounter Care Teams Infertility Medical Assistant Relationship Specialty Start Date End Date Sammie Maharaj MD [address] [place] [address] PCP - General Family Medicine 10/10/18 Loyda Glaser, RN 230 [place] [address] Tooth Grinder Family Medicine 10/31/23 Yasmin Ho MD [address] [place] [address] Gastroenterology 08/29/24 Manuel Carpenter PA [facility] 55 [facility] [address] Neurology 08/29/24 Paola Tolentino NP [address] [address] Endocrinology 10/24/24 [facility] Psychology Psychology 12/19/24 [facility] 09/24/25 documented as of this encounter
--- OUTSIDE RECORDS SUMMARY | 2025-10-07 08:04 | XMS_ITS | Encounter Summary ---
Author Organization [employer] Address [address] 7t [place] [address] Care Team Providers Care Intelligence Director Name Role Phone Sammie Maharaj MD Primary Care Provider [phone]- [phone] Loyda Glaser RN Unavailable [phone] Yasmin Ho MD Unavailable [phone] Reason for Visit * Reason Comments Med Refill Encounter Details Date Type Department Care Team (Late st Contact Info) Description 11/13/2024 Refill [facility] 230 [place], [place] [phone] Sammie Maharaj MD 230 [place], [place] [phone] Tinea unguium Social History Tobacco Use Types [...] Description 10/09/2025 10:15 AM EST Office Visit [facility] MEDICINE [address] [place] [address] Miriam Shipman MD 230 [place] [address] 11/07/2025 9:15 AM EST Office Visit [facility] MED[facility] [address] [place] [address] Sammie Maharaj MD 230 [place] [address] 03/07/2026 9:00 AM EDT Office Visit [facility] OPTOMETRY [address] [place] [address] Darshana Bashir, OD 230 [place] [address] documented as of this encounter Visit Diagnoses Diagnosis Tinea unguium Dermatophytosis of nail documented in this encounter Additional Health Concerns Assessment Noted Time PHQ-9 Depression Total Score: 0 10/24/19 25 9:33 AM EST documented as of this encounter Care Teams Intelligence Director Relationship Specialty Start Date End Date Sammie Maharaj MD 230 [place] [address] PCP - General Family Medicine 10/10/18 Loyda Glaser, RN 230 [place] [address] Qa Software Test Engineer Family Medicine 10/31/23 Yasmin Ho MD 55 [place] [address] Gastroenterology 08/29/24 Manuel Carpenter PA [facility] 55 [facility] [address] Neurology 08/29/24 Paola Tolentino, BULK SEALER [address] [address] Endocrinology 10/24/24 [facility] Psychology Psychology 12/19/24 [facility] 09/24/25 documented as of this encounter
--- OUTSIDE RECORDS SUMMARY | 2025-10-07 08:04 | XMS_ITS | Encounter Summary ---
Author Organization [employer] Address [address] [address] [facility] [address] 7t [place] [address] Care Team Providers Care Facing Baster Name Role Phone Sammie Maharaj MD Primary Care Provider [phone]- [phone] Loyda Glaser RN Unavailable [phone] Yasmin Ho MD Unavailable Reason for Visit * Reason Comments Med Refill Encounter Details Date Type Department Care Team (Late st Contact Info) Description 12/25/2024 Refill [facility] 230 [place], [place] [phone] Sammie Maharaj MD 230 [place], [place] [phone] Tinea unguium Social History Tobacco Use Types [...] Office Visit [facility] MEDICINE [address] [place] [address] Miriam Shipman MD 230 [place] [address] 11/07/2025 9:15 AM EST Office Visit [facility] MEDICINE [address] [place] [address] Sammie Maharaj MD 230 [place] [address] 03/07/2026 9:00 AM EDT Office Visit [facility] OPTOMETRY [address] [place] [address] Darshana Bashir, OD 230 [place] [address] documented as of this encounter Visit Diagnoses Diagnosis Tinea unguium Dermatophytosis of nail documented in this encounter Additional Health Concerns Assessment Noted Time PHQ-9 Depression Total Score: 0 10/24/19 25 9:33 AM EST documented as of this encounter Care Teams Facing Baster Relationship Specialty Start Date End Date Sammie Maharaj MD 230 [place] [address] PCP - General Family Medicine 10/10/18 Loyda Glaser, RN 230 [place] [address] Manager Finance Family Medicine 10/31/23 Yasmin Ho MD 55 [place] [address] Gastroenterology 08/29/24 Manuel Carpenter PA [facility] 55 [facility] [address] Neurology 08/29/24 Paola Tolentino, POLYMER CHEMIST [address] [address] Endocrinology 10/24/24 [facility] Psychology Psychology 12/19/24 [facility] [place] 09/24/25 documented as of this encounter
--- OUTSIDE RECORDS SUMMARY | 2025-10-07 08:05 | XMS_ITS | Patient Health Record ---
Author Organization [facility] Address [address] [place] [address] Care Team Providers Care Diesel Service Technician Name Role Phone Sammie Maharaj MD Primary Care Provider Peggy vailable Varun Lou Unavailable [phone] Reason For Referral No Information Medications Medication SIG (Take, Route, Fr equency, Duration) Notes Start Date End Date Status Omeprazole 40mg Ac tive Nadolol 40mg Activ e Social History Section Notes: She does not smoke nor use a ny alcohol Problems Problem Type SNOMED Code ICD Code Onset Dates Problem Status W/U Status Risk Notes Problem Anemia (407883466) Unspecified anemia (285.9) Active confirmed Problem Esophageal varices without bleeding (75150546) Esophageal varices without mention of bleeding (456.1) Active confirmed Problem Ascites (086150666) Ascites, other (789.59) Active confirmed Problem Liver function tests abnormal (062603622) Nonspecific abnormal results of liver function study [...] Start Date Coverage End Date MEDICAID OF [facility] [address] [place] [phone] [id number] BROOK MARIA Self - patient is the insured Medical (General) History Medical History History ICD Code 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
--- OUTSIDE RECORDS SUMMARY | 2025-10-07 08:05 | XMS_ITS | Encounter Summary ---
Author Organization [email or web address] Address [address] [place] [address] 7t [place] [address] Care Team Providers Care Jewelry Polisher Name Role Phone Sammie Maharaj MD Primary Care Provider [phone]- [phone] Loyda Glaser RN Unavailable [phone] Yasmin Ho MD Unavailable Encounter Details Date Type Department Care Team (Late st Contact Info) Description 12/01/2022 Orders Only [facility] MEDICINE [address] [place] [address] [phone] Ericka Osei MD [address] [place] [address] [phone] Visual problems (Primary Dx) Social History Tobacco [...] 10/09/2025 10:15 AM EST Office Visit [address] [phone] Miriam Shipman MD [address] [place] [address] [phone] 11/07/2025 9:15 AM EST Office Visit [address] [address] Sammie Maharaj MD 230 [place] [address] 03/07/2026 9:00 AM EDT Office Visit [facility] OPTOMETRY [address] [place] [address] Mckay, Dasrhana, OD 230 [place] [address] documented as of this encounter Visit Diagnoses Diagnosis Visual problems- Primary documented in this encounter Care Teams Jewelry Polisher Relationship Specialty Start Date End Date Sammie Maharaj MD 230 [place], [place] [phone] PCP - General Family Medicine 10/10/18 Loyda Glaser RN [address] [place] [address] Trucksmith Family Medicine 10/31/23 Yasmin Ho MD [address] [place] [address] Gastroenterology 08/29/24 Manuel Carpenter PA [address] [address] Neurology 08/29/24 Paola Tolentino NP [address] [address] Endocrinology 10/24/24 [facility] Psychology Psychology 12/19/24 [facility] 09/24/25 documented as of this encounter
--- OUTSIDE RECORDS SUMMARY | 2025-10-07 08:05 | XMS_ITS | Encounter Summary ---
Author Organization [employer] Address [address] [facility] [address] 7[address] [place] [address] Care Team Providers Care Dice Dealer Name Role Phone Sammie Maharaj MD Primary Care Provider +1- [phone] Loyda Glaser RN Unavailable [phone] Yasmin Ho MD Unavailable [phone] Reason for Visit * Reason Onset Date Comments Appointment Request 10/20/2023 Encounter Details Date Type Department Care Team ([facility] st Contact Info) Description 10/20/2023 Telephone [facility] MEDICINE [address] [place], [place] [phone] Sammie Maharaj MD 230 [place], [place] [phone] Appointment Request Social History Tobacco Use Types [...] and reschedule appt for 11/03/2023 @ 9:30 credit underwriter did cancel per patients request documented in this encounter Plan of Treatment Upcoming Encounters Date Type Department Care Team (Late st Contact Info) Description 10/09/2025 10:15 AM EST Office Visit [facility] MEDICINE [address] [place] [address] Miriam Shipman MD 230 [place] [address] 11/07/2025 9:15 AM EST Office Visit [facility] MEDICINE [address] [place] [address] Sammie Maharaj MD 230 [place] [address] 03/07/2026 9:00 AM EDT Office Visit [facility] OPTOMETRY [address] [place] [address] Darshana Bashir, OD 230 [place] [address] documented as of this encounter Visit Diagnoses Not on filedocumented in this encounter Additional Health Concerns Assessment Noted Time PHQ-9 Depression Total Score: 0 07/28/20 23 9:42 AM EDT documented as of this encounter Care Teams Dice Dealer Relationship Specialty Start Date End Date Sammie Maharaj MD 230 [place] [address] PCP - General Family Medicine 10/10/18 Loyda Glaser, ERVIN 230 [place] [address] Facilities Painter Family Medicine 10/31/23 Yasmin Ho MD 55 [place] [address] Gastroenterology 08/29/[address] [facility] 55 [facility] [address] Neurology 08/29/24 Paola Tolentino, STUDY ABROAD ADVISOR [address] [address] Endocrinology 10/24/24 [facility] Psychology Psychology 12/19/24 [facility] 09/24/25 documented as of this encounter
--- OUTSIDE RECORDS SUMMARY | 2025-10-07 08:05 | XMS_ITS | Data Portability ---
Author Organization [facility] [employer] [facility], [facility] Address [address] [place] [phone] Care Team Providers Care Stock Patcher Name Role Phone Unavailable OTHER [facility] OTHER Assessment No assessment recorded. Plan of [...] Name and Address Organization Details Recorded Time 05170 acetamino phen medicatio n Not available Not available Not available 12/07/2024 161 RxNorm Not Available [facility] - production 12:30:55 63309 latex environme nt,medica tion Not available Not available Not available 12/07/2024 33205 91 RxNorm Not Available [facility] - production [...] Available No t Available [employer] [place] 3 [place] active Not Available Not Available Not Available [employer] [place] 3 Plus Sensor device active Not Available Not Availabl e Not Available Vitals Date Recorded Heart rate Oxygen saturation Respiratory rate Body temperature Systolic And Diastolic Provider Name and Address Organization Details Last Updated DateTime 5 74 /min 98 % 18 /min 98.8 [degF] 110/62 mm[Hg] Not Available [facility] - production 5 18:33:29 Social History None recorded. Functional Status None recorded. Mental Status None recorded. Family History Nothing Reported. Medical History No medical history recorded. Gynecological HistoryNo gynecological history recorded. Obstetrics History GPAL:G 0 P 0 0 0 0 Past Encounters Encounter ID Performer Location Encounter Start Date Encounter Closed Date Diagnosis/Indication Diagnosis SNOMED-CT Code Diagnosis ICD10 Code Diagnosis IMO Codes Diagnosis Note [id number] Mi Chen MD Main - [facility] [address] [place] [phone] 12/14/2024 18:33:24 12/14/2024 20:52:08 Bilateral lower limb edema 131008066 R60.0 As noted, we were called to see this patient regarding concerns of LE swelling. Evaluation in the field was performed by my floriculture teacher colleague, as noted above, I provided real-time [...] Watson Member ID Guarantor Name 12/12/2024 1 [facility] - DOS ON OR AFTER 2023 - DUAL ELIGIBLE - USP OPTIONS AND ONE CARE (MEDICARE REPLACEMENT/ADV ANTAGE - HMO) Aubrie Mario [id number] Aubrie Mario Notes Date Note Type Note [...] no active ABX info provided by daughter Vacuum Cleaner Operator verified the name//address and phone number. Education provided on the response time and the Patient was advised to monitor reported s/s and seek emergency treatment if needed Price Analyst Organization Information for Duncan Romero Business Legal Name: [employer] Address: [address] [place] [address] [place] [address], Two [address] Radio Installer: Kris MUNOZ No.: [id number] Price Analyst POC Test Results from Duncan Romero ADOLFO Blood Glucose Measurement (18:33:13) Blood Glucose: 230 mg/dL ................... ................... ................... ................... ................... ................... ................... ........ Price Analyst Note From Duncan Romero: Arrived to find a 44-year-old Maltese-speaking female in the apartment with daughter which [...] in ankles or lower extremities. Contact of [facility] and discuss patient presentation, assessment, and vitals. [...] ................... ................... ................... ................... ................... ................... ........ [facility] Consulted: Mi Chen ................... ................... ................... ................... ................... ................... ................... ........ Disposition: Sheng Chen MD [address] [place] [address],[address], [place], [address], [employer] 12/14/2024 20:17:46 OBGyn Episode No OBEpisode recorded.
--- OUTSIDE RECORDS SUMMARY | 2025-10-07 08:05 | XMS_ITS | Encounter Summary ---
Author Organization [email or web address] Address [address] [place] [address] 7t [place] [address] Care Team Providers Care Black Top Paver Operator Name Role Phone Sammie Maharaj MD Primary Care Provider [phone]- [phone] Loyda Glaser RN Unavailable [phone] Yasmin Ho MD Unavailable [phone] Encounter Details Date Type Department Care Team (Late st Contact Info) Description 11/11/2022 Abstract [facility] MEDICINE [address] [place] [address] [phone] Sammie Maharaj MD [address] [place] [address] [phone] Social History Tobacco Use Types Packs/Day Years [...] 10/09/2025 10:15 AM EST Office Visit [facility] MEDICINE [address] [place] [address] [phone] Miriam Shipman MD [address] [place] [address] [phone] 11/07/2025 9:15 AM EST Office Visit [address] [phone] Sammie Maharaj MD 230 [place] [address] 03/07/2026 9:00 AM EDT Office Visit [facility] OPTOMETRY [address] [place] [address] Mckay, Darshana, OD 230 [place] [address] documented as of this encounter Procedures Procedure Name Priority Date/Time Associated Diagnosis Comments PAP SMEAR Routine 03/25/2021 12:00 AM EDT documented in this encounter Results * Pap Smear (03/25/2021 12:00 AM EDT) Swab us Historical Provider LAB CYTOLOGY ORDERABLES F inal Result IMAGING documented in this encounter Visit Diagnoses Not on filedocumented in this encounter Care Teams Black Top Paver Operator Relationship Specialty Start Date End Date Sammie Maharaj MD 230 [place] [address] PCP - General Family Medicine 10/10/18 Loyda Glaser, RN [address] [place] [address] Armature Rewinder Family Medicine 10/31/23 Yasmin Ho MD [address] [place] [address] Gastroenterology 08/29/24 Manuel Carpenter PA [facility] 55 [facility] [address] Neurology 08/29/24 Paola Tolentino NP [address] [address] Endocrinology 10/24/24 [facility] Psychology Psychology 12/19/24 [facility] 09/24/25 documented as of this encounter
--- OUTSIDE RECORDS SUMMARY | 2025-10-07 08:05 | XMS_ITS | Encounter Summary ---
Author Organization [employer] Address [address] [facility] [address] 7t [place] [address] Care Team Providers Care Regional Sales Representative Name Role Phone Sammie Maharaj MD Primary Care Provider [phone]- [phone] Loyda Glaser RN Unavailable [phone] Yasmin Ho MD Unavailable [phone] Reason for Visit * Reason Comments Med Refill Encounter Details Date Type Department Care Team (Late st Contact Info) Description 06/02/2025 Refill [facility] 230 [place], [place] [phone] Sammie Maharaj MD 230 [place], [place] [phone] Tinea unguium Social History Tobacco Use Types [...] Description 10/09/2025 10:15 AM EST Office Visit [facility] MEDICINE [address] [place] [address] Miriam Shipman MD 230 [place] [address] 11/07/2025 9:15 AM EST Office Visit [facility] MEDICINE [address] [place] [address] Sammie Maharaj MD 230 [place] [address] 03/07/2026 9:00 AM EDT Office Visit [facility] OPTOMETRY [address] [place] [address] Darshana Bashir, OD 230 [place] [address] documented as of this encounter Visit Diagnoses Diagnosis Tinea unguium Dermatophytosis of nail documented in this encounter Additional Health Concerns Assessment Noted Time PHQ-9 Depression Total Score: 0 10/24/19 25 9:33 AM EST documented as of this encounter Care Teams Regional Sales Representative Relationship Specialty Start Date End Date Sammie Maharaj MD 230 [place] [address] PCP - General Family Medicine 10/10/18 Loyda Glaser, RN 230 [place] [address] Fiberglass Quality Technician Family Medicine 10/31/23 Yasmin Ho MD 55 [place] [address] Gastroenterology 08/29/24 Manuel Carpenter PA [facility] 55 [facility] [address] Neurology 08/29/24 Paola Tolentino, CORPORATE COUNSELOR [address] [address] Endocrinology 10/24/24 [facility] Psychology Psychology 12/19/24 [facility] 09/24/25 documented as of this encounter
--- OUTSIDE RECORDS SUMMARY | 2025-10-07 08:05 | XMS_ITS | Encounter Summary ---
Author Organization [employer] Address [address] [facility] [address] 7t [place] [address] Care Team Providers Care Casting Tester Name Role Phone Sammie Maharaj MD Primary Care Provider [phone]- [phone] Loyda Glaser RN Unavailable [phone] Yasmin Ho MD Unavailable [phone] Encounter Details Date Type Department Care Team (Late st Contact Info) Description 05/28/2025 Abstract [facility] MEDICINE 230 [place] [address] Laya Azul [place] Social History Tobacco Use [...] t he electric, gas, oil or water [employer] threatened to shut off services in your [...] Description 10/09/2025 10:15 AM EST Office Visit [facility] MEDICINE [address] [place] [address] Miriam Shipman MD [address] [place] [address] 11/07/2025 9:15 AM EST Office Visit [facility] MEDICINE [address] [place] [address] Sammie Maharaj MD [address] [place] [address] 03/07/2026 9:00 AM EDT Office Visit [facility] OPTOMETRY [address] [place] [address] Mckay, Darshana, OD 230 [place] [address] documented as of this encounter Procedures Procedure [...] documented as of this encounter Care Teams Casting Tester Relationship Specialty Start Date End Date Sammie Maharaj MD 230 [place] [address] PCP - General Family Medicine 10/10/18 Loyda Glaser, ERVIN 230 [place] [address] Auto Mechanics Instructor Family Medicine 10/31/23 Yasmin Ho MD 55 [place] [address] Gastroenterology 08/29/[address] [facility] 55 [facility] [address] Neurology 08/29/24 Paola Tolentino, DIGITAL ACCOUNT MANAGER [address] [address] Endocrinology 10/24/24 [facility] Psychology Psychology 12/19/24 [facility] 09/24/25 documented as of this encounter
--- OUTSIDE RECORDS SUMMARY | 2025-10-07 08:05 | XMS_ITS | Encounter Summary ---
Author Organization [employer] Address [address] [facility] [address] 7t [place] [address] Care Team Providers Care Optical Systems Engineer Name Role Phone Sammie Maharaj MD Primary Care Provider [phone]- [phone] Loyda Glaser RN Unavailable [phone] Yasmin Ho MD Unavailable [phone] Reason for Visit * Reason Onset Date Comments call back 08/22/2025 Encounter Details Date Type Department Care Team ([facility] st Contact Info) Description 08/22/2025 Telephone [facility] MEDICINE 230 [place], [place] [phone] Sammie Maharaj MD 230 [place], [place] [phone] call back Social History Tobacco Use Types [...] requesting a call back. Contact pt at [phone] documented in this encounter Plan of Treatment Upcoming Encounters Date Type Department Care Team (Late st Contact Info) Description 10/09/2025 10:15 AM EST Office Visit [facility] MEDICINE [address] [place] [address] Miriam Shipman MD 230 [place] [address] 11/07/2025 9:15 AM EST Office Visit [facility] MEDICINE 230 [place] [address] Sammie Maharaj MD 230 [place] [address] 03/07/2026 9:00 AM EDT Office Visit [facility] OPTOMETRY [address] [place] [address] Mckay, Darshana, OD 230 [place] [address] documented as of this encounter Visit Diagnoses Not on filedocumented in this encounter Additional Health Concerns Assessment Noted Time PHQ-9 Depression Total Score: 0 10/24/19 9:33 AM EST documented as of this encounter Care Teams Optical Systems Engineer Relationship Specialty Start Date End Date Sammie Maharaj MD 230 [place] [address] PCP - General Family Medicine 10/10/18 Loyda Glaser, ERVIN [address] [place] [address] Assembler Finger Buffs Family Medicine 10/31/23 Yasmin Ho MD [address] [place] [address] Gastroenterology 08/29/24 Manuel Carpenter PA [facility] 55 [facility] [address] Neurology 08/29/24 Paola Tolentino NP [address] [address] Endocrinology 10/24/24 [facility] Psychology Psychology 12/19/24 [facility] 09/24/25 documented as of this encounter
--- OUTSIDE RECORDS SUMMARY | 2025-10-07 08:05 | XMS_ITS | Encounter Summary ---
Author Organization [employer] Address [address] [facility] [facility] [address] 7t [place] [address] Care Team Providers Care Professor Of Art Name Role Phone Sammie Maharaj MD Primary Care Provider [phone]- [phone] Loyda Glaser RN Unavailable [phone] Yasmin Ho MD Unavailable [phone] Reason for Visit * Reason Onset Date Comments order 09/30/2025 Encounter Details Date Type Department Care Team ([facility] st Contact Info) Description 09/30/2025 Telephone [facility] MEDICINE 230 [place], [place] [phone] Sammie Maharaj MD 230 [place], [place] [phone] order Social History Tobacco Use Types Packs/Day [...] Telephone Encounter - Isabella Miranda RN - 10/02/2025 9:46 AM EST Called [facility] at [facility] [phone], no answer, left voicemail to call back [phone]. Called [facility] main number, no answer, left voicemail asking for call back to [phone]. * Telephone Encounter - Isabella Miranda RN - 10/01/2025 1:36 PM EST Returned call to [facility] at [facility]. No answer, left voicemail to call back [facility]. * Telephone Encounter - Amy Tavares - 09/30/2025 8:44 AM EST TC from [facility] requesting that orders be faxed for the following: Internal feeding Flush Tooth size Side care Surgical wound care Fax #[phone] Contact [facility] at [phone] documented in this encounter Plan of Treatment Upcoming Encounters Date Type Department Care Team (Late st Contact Info) Description 10/09/2025 10:15 AM EST Office Visit [facility] MEDICINE [address] [place] [address] Miriam Shipman MD 230 [place] [address] 11/07/2025 9:15 AM EST Office Visit [facility] MEDICINE 230 [place] [address] Sammie Maharaj MD 230 [place] [address] 03/07/2026 9:00 AM EDT Office Visit [facility] OPTOMETRY [address] [place] [address] Mckay, Darshana, OD 230 [place] [address] documented as of this encounter Visit Diagnoses Not on filedocumented in this encounter Additional Health Concerns Assessment Noted Time PHQ-9 Depression Total Score: 0 10/24/19 25 9:33 AM EST documented as of this encounter Care Teams Professor Of Art Relationship Specialty Start Date End Date Sammie Maharaj MD [address] [place] [address] PCP - General Family Medicine 10/10/18 Loyda Glaser, ERVIN [address] [place] [address] Combined Rail Operator Family Medicine 10/31/23 Yasmin Ho MD [address] [place] [address] Gastroenterology 08/29/24 Manuel Carpenter PA [facility] 55 [facility] [address] Neurology 08/29/24 Paola Tolentino, ADMIN SECRETARY [address] [address] Endocrinology 10/24/24 [facility] Psychology Psychology 12/19/24 [facility] 09/24/25 documented as of this encounter
--- OUTSIDE RECORDS SUMMARY | 2025-10-07 08:05 | XMS_ITS | Encounter Summary ---
Author Organization [employer] Address [address] [facility] [address]t [place] [address] Care Team Providers Care Power And Recovery Shift Engineer Name Role Phone Sammie Maharaj MD Primary Care Provider [phone] Loyda Glaser RN Unavailable [phone] Yasmin Ho MD Unavailable [phone] Reason for Visit * Reason Comments Med Refill Encounter Details Date Type Department Care Team (Late st Contact Info) Description 10/25/2023 Refill [facility] 230 [place], [place] [phone] Sammie Maharaj MD 230 [place], [place] [phone] Microcytic anemia Social History Tobacco Use Types [...] Description 10/09/2025 10:15 AM EST Office Visit [facility] MEDICINE [address] [place] [address] Miriam Shipman MD 230 [place] [address] 11/07/2025 9:15 AM EST Office Visit [facility] MEDICINE [address] [place] [address] Sammie Maharaj MD 230 [place] [address] 03/07/2026 9:00 AM EDT Office Visit [facility] OPTOMETRY [address] [place] [address] Darshana Bashir, OD 230 [place] [address] documented as of this encounter Visit Diagnoses Diagnosis Microcytic anemia Unspecified iron deficiency anemia documented in this encounter Additional Health Concerns Assessment Noted Time PHQ-9 Depression Total Score: 0 07/28/20 23 9:42 AM EDT documented as of this encounter Care Teams Power And Recovery Shift Engineer Relationship Specialty Start Date End Date Sammie Maharaj MD 230 [place] [address] PCP - General Family Medicine 10/10/18 Loyda Glaser RN 230 [place] [address] Chemical Maker Family Medicine 10/31/23 Yasmin Ho MD 55 [place] [address] Gastroenterology 08/29/24 Manuel Carpenter PA [facility] 55 [facility] [address] Neurology 08/29/24 Paola Tolentino NP [address] [address] Endocrinology 10/24/24 [facility] Psychology Psychology 12/19/24 [facility] 09/24/25 documented as of this encounter
--- OUTSIDE RECORDS SUMMARY | 2025-10-07 08:05 | XMS_ITS | Encounter Summary ---
Author Organization [employer] Address [address] [facility] [address] 7t [place] [address] Care Team Providers Care Credit Underwriter Name Role Phone Sammie Maharaj MD Primary Care Provider [phone] Loyda Glaser RN Unavailable [phone] Yasmin Ho MD Unavailable [phone] Reason for Visit * Reason Onset Date Comments Nurse Triage 03/22/2023 Encounter Details Date Type Department Care Team (Late st Contact Info) Description 03/22/2023 Telephone [facility] MEDICINE 230 [place] [address] Sammie Maharaj MD 230 [place], [place] [phone] Nurse Triage Social History Tobacco Use Types [...] 03/22/2023 2:01 PM EDT Triage call with [address] [place] [id number] Pt didn't answer left message to call [facility] triage line at [phone]. Triage call with [employer] [address] [place] [id number] Pt answered, Pt wasn't able to say [...] Description 10/09/2025 10:15 AM EST Office Visit [facility] MEDICINE [address] [place] [address] Miriam Shipman MD [address] [place] [address] 11/07/2025 9:15 AM EST Office Visit [facility] MEDICINE [address] [place] [address] Sammie Maharaj MD [address] [place] [address] 03/07/2026 9:00 AM EDT Office Visit [facility] OPTOMETRY [address] [place] [address] Darshana Bashir, OD [address] [place] [address] documented as of this encounter Visit Diagnoses Not on filedocumented in this encounter Care Teams Credit Underwriter Relationship Specialty Start Date End Date Sammie Maharaj MD [address] [place] [address] PCP - General Family Medicine 10/10/18 Lodya Glaser, ERVIN [address] [place] [address] Tractor Technician Family Medicine 10/31/23 Yasmin Ho MD [address] [place] [address] Gastroenterology 08/29/24 Manuel Carpenter PA [address] [address] Neurology 08/29/24 Paola Tolentino NP [address] [address] Endocrinology 10/24/24 [facility] Psychology Psychology 12/19/24 [facility] 09/24/25 documented as of this encounter
--- OUTSIDE RECORDS SUMMARY | 2025-10-07 08:05 | XMS_ITS | Encounter Summary ---
Author Organization [employer] Address [address] [place] [address] Care Team Providers Care Deployment Specialist Name Role Phone Sammie Maharaj MD Primary Care Provider [phone] Loyda Glaser RN Unavailable [phone] Yasmin Ho MD Unavailable [phone] Reason for Visit * Reason Onset Date Comments Referral 12/01/2022 Encounter Details Date Type Department Care Team (Late st Contact Info) Description 12/01/2022 Telephone [facility] [address] [place] [address] Sammie Maharaj MD [address] [place], [place] [phone] Referral Social History Tobacco Use Types Packs/Day [...] [facility] Please contact pt at [phone] or Becca [phone] documented in this encounter Plan of Treatment Upcoming Encounters Date Type Department Care Team (Late st Contact Info) Description 10/09/2025 10:15 AM EST Office Visit [facility] [address] [place] [id number] Miriam Shipman MD [address] [place] [phone] 11/07/2025 9:15 AM EST Office Visit [address] [address] Sammie Maharaj MD [address] [place] [address] 03/07/2026 9:00 AM EDT Office Visit [facility] [address] [place] [address] Mckay, Darshana, OD [address] [place] [address] documented as of this encounter Visit Diagnoses Not on filedocumented in this encounter Care Teams Deployment Specialist Relationship Specialty Start Date End Date Sammie Maharaj MD [address] [place] [phone] PCP - General Family Medicine 10/10/18 Loyda Glaser, RN [address] [place] [address] Education Specialist Family Medicine 10/31/23 Yasmin Ho MD [address] [place] [address] Gastroenterology 08/29/24 Manuel Carpenter PA U [address] [address] Neurology 08/29/24 Paola Tolentino, HEBERT [address] [address] Endocrinology 10/24/24 [facility] Psychology Psychology 12/19/24 [facility] 09/24/25 documented as of this encounter
--- OUTSIDE RECORDS SUMMARY | 2025-10-07 08:05 | XMS_ITS | Encounter Summary ---
Author Organization [employer] Address [address] [place] [address] Care Team Providers Care Textile Scrap Salvager Name Role Phone Sammie Maharaj MD Primary Care Provider [phone] Loyda Glaser RN Unavailable [phone] Yasmin Ho MD Unavailable [phone] Encounter Details Date Type Department Care Team (Late st Contact Info) Description 05/16/2023 Orders Only [facility] [address] [place] [address] Emily Marcial LPN Social History Tobacco Use [...] Description 10/09/2025 10:15 AM EST Office Visit [facility] [address] [place] [address] [phone] Miriam Shipman MD [address] [place] [address] [phone] 11/07/2025 9:15 AM EST Office Visit [address] [phone] Sammie Maharaj MD [address] [place] [address] [phone] 03/07/2026 9:00 AM EDT Office Visit [facility] [address] [place], [place] [phone] Darshana Bashir, OD [address] [place] [address] documented as of this encounter Visit Diagnoses Not on filedocumented in this encounter Care Teams Textile Scrap Salvager Relationship Specialty Start Date End Date Sammie Maharaj MD [address] [place], [place] [phone] PCP - General Family Medicine 10/10/18 Loyda Glaser RN [address] [place] [address] [phone] Infrastructure Analyst Family Medicine 10/31/23 Yasmin Ho MD [address] [place] [address] Gastroenterology 08/29/24 Manuel Carpenter PA [facility] [address] [facility] [address] Neurology 08/29/24 Paola Tolentino NP [address] [address] Endocrinology 10/24/24 [facility] Psychology Psychology 12/19/24 [facility] 09/24/25 documented as of this encounter
[2025-10-07 08:52] LABS: INTERNATIONAL NORM RATIO 1.0 (0.9-1.1); Prothrombin Time 12.5 SEC (11.2-13.5)
[2025-10-07 09:10] LABS: Alanine Aminotransferase 401 U/L (0-31); Albumin Level 4.2 g/dL (3.5-5.0); Alkaline Phosphatase 275 U/L (39-117); Anion Gap 11 (12-20); Aspartate Amino Transferase 148 U/L (5-31); Blood Urea Nitrogen 36 mg/dL (9-16); Calcium 9.0 mg/dL (8.4-10.2); Carbon Dioxide 35 mmol/L (22-29); Chloride 97 mmol/L (96-108); Estimated Glomerular Filt Rate > 60; Potassium 3.2 mmol/L (3.3-5.1); Sodium 140 mmol/L (135-145); Total Protein 7.5 g/dL (6.5-8.0)
== END 2025-10-07 08:02 ==
LOC: HO.LAB 08:01
PROVIDERS: PCP Internal Medicine; Visit Provider Internal Medicine
DX: K72.10 Chronic hepatic failure without coma (principal)
CPT/HCPCS: 36415; 80053; 85610